=== PATIENT | female | born 1965 | race Caucasian/White ===

== ENCOUNTER 2021-09-03 14:10 | Inpatient (IN) | payer OTHER, SELFPAY ==
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
--- NOTE | 2021-09-03 18:43 | PC.NURSE ---
Pt admitted to floor via stretcher from [facility] inpatient ([facility]). The pt has a flat affect, slow to answer questions. The pt is independent with ADLs. The pt signed all paperwork and cooperated with initial assessment, with exception of vital signs.
[2021-09-03 21:19] LABS: Glucose, Whole Blood 130 mg/dL (60-115)
[2021-09-03] MEDS: Divalproex Sodium ER 500 MG TAB.ER.24H PO (21:19)
[2021-09-03] MEDS: Amoxicillin/Potassium Clav 875 MG TABLET PO (21:20)
[2021-09-03] MEDS: carvediloL 6.25 MG TABLET PO (21:20)
[2021-09-03] MEDS: Benztropine Mesylate 0.5 MG TABLET PO (21:20)
[2021-09-03] MEDS: Torsemide 20 MG TABLET PO (21:20)
[2021-09-03] MEDS: LORazepam 1 MG TABLET PO (21:30)
[2021-09-03] MEDS: Acetaminophen 325 MG TABLET 650 MG PO (21:30)
[2021-09-03 21:45] VITALS: BP 183/117; PULSE 80; RESP 20; TEMP 36.7; O2SAT 92
[2021-09-03 22:29] VITALS: BP 175/87
[2021-09-04] MEDS: Omeprazole 20 MG CAPSULE.DR PO (05:58)
[2021-09-04] MEDS: Acetaminophen 325 MG TABLET 650 MG PO ×2 (06:51→16:17)
[2021-09-04 08:30] VITALS: BP 151/69; PULSE 75; RESP 16; TEMP 36.6; O2SAT 88
[2021-09-04] MEDS: Lipase/Prot/Amylase 24/76/120K 1 CAP CAPSULE.DR PO ×3 (08:43→18:04)
[2021-09-04] MEDS: Multivitamin TABLET 1 TAB PO (08:43)
[2021-09-04] MEDS: carvediloL 6.25 MG TABLET PO ×2 (08:44→22:02)
[2021-09-04] MEDS: Amoxicillin/Potassium Clav 875 MG TABLET PO (08:44)
[2021-09-04] MEDS: Torsemide 20 MG TABLET PO ×2 (08:44→22:03)
[2021-09-04] MEDS: Divalproex Sodium ER 250 MG TAB.ER.24H PO (08:44)
[2021-09-04] MEDS: Benztropine Mesylate 0.5 MG TABLET PO ×2 (08:45→22:03)
[2021-09-04] MEDS: Magnesium Oxide 400 MG TABLET PO ×2 (08:45→18:04)
[2021-09-04] MEDS: Folic Acid 1 MG TABLET PO (08:45)
[2021-09-04] MEDS: ARIPiprazole 15 MG TABLET PO (08:45)
[2021-09-04] MEDS: Loratadine 10 MG TABLET PO (08:47)
[2021-09-04 09:12] LABS: Glucose, Whole Blood 131 mg/dL (60-115)
--- NOTE | 2021-09-04 10:14 | P.CONHOSP_ITS ---
History of Present Illness Data of Consult Service Date: 09/04/21 Primary Care Provider: Unknown Physician HPI Reason for consult: medical evaluation 55 year old female with schizoaffective desorder Bipolar type, HTN, congestive heart failure, DM, pancreatic insuficiency recent treatment at [facility] for pneumonia and is admitted for decompensated Schizophrenia. Present voiced no acute medial illness, Heart failure seems compensated, has no sob , no chest pain, mild leg edama. I reviewed an admission from [facility] from june and updated her past medical history Review of Systems Review of Systems: Gen: no fever Resp: no sob, no cough CV: no chest, no NELSON,+ leg edema GI: No n/v, no abd pain Neuro: No confusion Yes all other systems are reviewed and are negative [facility] Medical History (Updated 09/04/21 @ 10:38 by Edvin Thrasher MD) Anemia Asthma Biventricular heart failure Chronic low back pain Chronic pancreatitis Cirrhosis of liver CKD (chronic kidney disease) Class 2 obesity Diabetes Dyshidrotic eczema HTN (hypertension) Pulmonary arterial hypertension Steatohepatitis Surgical History History of splenectomy Hx of cholecystectomy Social History Household Members: None Housing: Homeless Do you presently have visiting nurse or other home services: Yes Patient Tobacco Use Status: Current everyday Tobacco user Tobacco use type: Cigarette Cigarettes Per Day: 1 Smoked in Last 30 Days: Yes e-Cigarette/Vaping Use: Never Used Patient Interested in Nicotine Replacement: No Patient Given Instructions on How to Stop Smoking: Yes Date Education Initiated: 09/03/21 Second Hand Smoke Exposure: No Use of substances other than those prescribed or required for medical reasons: No Currently Displaying Signs/Symptoms of Drug Intoxication Withdrawal: No Any prior treatment program specific to substance use: No Have you been hit, kicked, punched, or otherwise hurt by someone within the past year? If so, by whom?: No Do you feel safe in your current relationship?: No Current Relationship Is there a partner from a previous relationship who is making you feel unsafe now?: No Are you made to feel afraid or neglected: No Advance Directives: No Advance Directives Information Provided: No Do you have thoughts of harming others: None Do you have a plan to hurt others: No Plan Recently lost weight without trying: No Nutrition Risks: No Nutritional Risk Patient : No : No Poor oral hygiene: No Meds Allergies Allergy/AdvReac Type Severity Reaction Status Date / Time olanzapine [From Zyprexa] Allergy Unknown Verified 09/03/21 14:49 prednisone Allergy Unknown Verified 09/03/21 14:49 NSAIDS (Non-Steroidal AdvReac Mild Abdominal Verified 09/03/21 14:49 Anti-Inflamma Pain egg AdvReac Abdominal Verified 09/03/21 14:49 Pain Active Medications: Current Medications Acetaminophen (Acetaminophen 325 Mg Tablet) 650 mg PO Q6H PRN PRN Reason: Headache/Pain Mild Scale (1-3) Last Admin: 09/04/21 06:51 Dose: 650 mg Al Hydroxide/Mg Hydroxide (Magnesium Hydrox/Alum Hydrox 30 Ml Oral.Susp) 30 ml PO Q6H PRN PRN Reason: Heartburn/Nausea Amoxicillin/Clavulanate Potassium (Amoxicillin/Potassium Clav 875 Mg Tablet) 875 mg PO Q12H ON LICENSE OF [facility] Stop: 09/08/21 23:59 Last Admin: 09/04/21 08:44 Dose: 875 mg Lipase/Protease/Amylase (Lipase/Prot/Amylase 24/76/120k 1 Cap Capsule.Dr) 1 cap PO TIDWM ON LICENSE OF [facility] Last Admin: 09/04/21 08:43 Dose: 1 cap Aripiprazole (Aripiprazole 15 Mg Tablet) 15 mg PO DAILY ON LICENSE OF [facility] Last Admin: 09/04/21 08:45 Dose: 15 mg Benztropine Mesylate (Benztropine Mesylate 0.5 Mg Tablet) 0.5 mg PO BID ON LICENSE OF [facility] Last Admin: 09/04/21 08:45 Dose: 0.5 mg Carvedilol (Carvedilol 6.25 Mg Tablet) 6.25 mg PO BID ON LICENSE OF [facility]; Protocol Last Admin: 09/04/21 08:44 Dose: 6.25 mg Divalproex Sodium (Divalproex Sodium Er 250 Mg Tab.Er.24h) 250 mg PO DAILY ON LICENSE OF [facility] Last Admin: 09/04/21 08:44 Dose: 250 mg Divalproex Sodium (Divalproex Sodium Er 500 Mg Tab.Er.24h) 500 mg PO BEDTIME ON [facility] OF [facility] Last Admin: 09/03/21 21:19 Dose: 500 mg Folic Acid (Folic Acid 1 Mg Tablet) 1 mg PO DAILY ON LICENSE OF [facility] Last Admin: 09/04/21 08:45 Dose: 1 mg Gabapentin (Gabapentin 100 Mg Capsule) 100 mg PO DAILY PRN PRN Reason: anxiety Hydroxyzine HCl (Hydroxyzine Hcl 25 Mg Tablet) 25 mg PO BEDTIME PRN PRN Reason: Anxiety Insulin Human Lispro (Insulin Lispro 100 Unit/Ml 3 Ml Vial) 0 unit SUBCUT QIDACHS ON LICENSE OF [facility]; Protocol Last Admin: 09/04/21 08:45 Dose: Not Given Lactulose (Lactulose 20 Gm/30 Ml Solution) 20 gm PO BID ON LICENSE OF [facility] Last Admin: 09/04/21 08:47 Dose: Not Given Loratadine (Loratadine 10 Mg Tablet) 10 mg PO DAILY ON [facility] Last Admin: 09/04/21 08:47 Dose: 10 mg Lorazepam (Lorazepam 1 Mg Tablet) 1 mg PO TID PRN PRN Reason: agitation, anxiety Last Admin: 09/03/21 21:30 Dose: 1 mg Magnesium Hydroxide (Milk Of Magnesia 30 Ml Oral.Susp) 30 ml PO DAILY PRN PRN Reason: Constipation Magnesium Oxide (Magnesium Oxide 400 Mg Tablet) [facility] Last Admin: 09/04/21 08:45 Dose: 400 mg Melatonin (Melatonin 3 Mg Tablet) 3 mg PO BEDTIME PRN PRN Reason: sleep Multivitamins/Vitamin C (Multivitamin Tablet) 1 tab PO DAILY ON LICENSE OF [facility] Last Admin: 09/04/21 08:43 Dose: 1 tab Omeprazole (Omeprazole 20 Mg Capsule.Dr) 20 mg PO DAILY@0630 ON LICENSE OF [facility] Last Admin: 09/04/21 05:58 Dose: 20 mg Torsemide (Torsemide 20 Mg Tablet) 20 mg PO BID ON LICENSE OF [facility]; Protocol Last Admin: 09/04/21 08:44 Dose: 20 mg Trazodone HCl (Trazodone Hcl 50 Mg Tablet) 50 mg PO BEDTIME PRN PRN Reason: Insomnia Physical Exam Vital Signs and Narrative: Vital Signs: Last Vital Signs Temp 98.1 F 09/03/21 21:45 Pulse 80 09/03/21 21:45 Resp 20 09/03/21 21:45 BP 175/87 H 09/03/21 22:29 Pulse Ox 92 09/03/21 21:45 O2 Del Method 09/03/21 21:45 Const: Other: Constitutional: Alert, in no distress, overweight. Mental Status: Oriented to person, place and time. Eyes: Pupils are equal, round and reactive to light. Ear, Nose and Throat: Oropharynx clear, mucous membranes moist. Respiratory: Clear to auscultation. No wheezing, rales or rhonchi. Cardiovascular: S1 S2 regular. No murmurs, rubs or gallops. Trace leg edema Gastrointestinal: Abdomen soft, non-tender, non-distended. Normal bowel sounds.? Neurologic: Cranial nerves II-XII grossly intact. No focal neurological deficits. Moves all extremities spontaneously.? Skin: No rashes or lesions.? Musculoskeletal: No cyanosis or clubbing. Psychiatric: Normal mood and affect? Results Labs Labs: Laboratory Results - last 24 hr 09/03/21 09/04/21 21:15 08:41 POC Glucose 130 H 131 H Assessment and Plan (1) Diabetes: Status: Acute Plan 55/F with DM, HTN, CHF Schozoaffective desorder here with decompensation. No acute medical issues #HTN--continue Coreg #Diabetes--continue insulin #CHF--compensated, continue Torsemide, Coreg, should probably on AMINAH #Pancreatic insuficiency--Creon #Schizophrenia--Managemebt by Psych Staff should obtained most recent home meds for Pharmacy to reconcile.
--- NOTE | 2021-09-04 12:38 | MHC.CLN ---
NUTRITION VISITED WITH PATIENT IN HER ROOM. REVIEWED DISCHARGE INFORMATION FROM [facility] SHOWING SODIUM LABS WNL ON 08/26=142 AND 09/0212=398. PATIENT WITH MILD LOWER EXTREMITY EDEMA. PATIENT STATED THAT SHE IS ON A 1500 ML FLUID RESTRICTION. NO EVIDENCE OF PRIOR FLUID RESTRICTION FROM CHART REVIEW. DIET CHANGED TO DIABETIC 1800 KCAL, 2 GRAM SODIUM DUE TO MEDICAL DX. EGG ALLERGY IN CHART. PATIENT STATED THAT SHE EATS EGGS WITHOUT A PROBLEM; NURSE AWARE OF FINDING.
[2021-09-04 12:51] LABS: Glucose, Whole Blood 138 mg/dL (60-115)
--- NOTE | 2021-09-04 14:49 | HO.PSYCHPN ---
Subjective Subjective Date of Service: 09/04/21 Reason For Visit: unspecified schizophrenia Interim History: pt amenable to interview. calm, cooperative, pleasant. states she is stable on her medications now - meds reviewed. she denies SI/SIBI/HI/AVH and describes her mood as good. she states she can be helped in the hospital by going to some groups and help getting an apartment. she was encouraged to work with SW in that regard. Mental Status Exam Mental Status Exam Narrative: appropriately dressed and adequately groomed. cooperative. no PMA/PMR. speech nml in rate, amount, loudness, tone, latency. thoughts linear and logical. affect full range, normo-intense, non-labile. mood good. denies SI/HI/AVH. Diagnostics Vital Signs (24Hr): Vital Signs - 24 hr 09/03/21 21:45 09/03/21 22:29 09/04/21 08:30 Temperature 98.1 F 98 F Pulse Rate 80 75 Respiratory Rate 20 16 Blood Pressure 183/117 H 175/87 H 151/69 H Pulse Oximetry 92 88 L Oxygen Delivery Method Room Air Room Air Labs Labs: Laboratory Results - last 48 hr 09/03/21 09/04/21 09/04/21 21:15 08:41 12:46 POC Glucose 130 H 131 H 138 H Medications Medications Current Medications Acetaminophen (Acetaminophen 325 Mg Tablet) 650 mg PO Q6H PRN PRN Reason: Headache/Pain Mild Scale (1-3) Last Admin: 09/04/21 06:51 Dose: 650 mg Al Hydroxide/Mg Hydroxide (Magnesium Hydrox/Alum Hydrox 30 Ml Oral.Susp) 30 ml PO Q6H PRN PRN Reason: Heartburn/Nausea Amoxicillin/Clavulanate Potassium (Amoxicillin/Potassium Clav 875 Mg Tablet) 875 mg PO Q12H [facility] Stop: 09/08/21 23:59 Last Admin: 09/04/21 08:44 Dose: 875 mg Lipase/Protease/Amylase (Lipase/Prot/Amylase 24/76/120k 1 Cap Capsule.) 1 cap PO TIDWM [facility] Last Admin: 09/04/21 12:53 Dose: 1 cap Aripiprazole (Aripiprazole 15 Mg Tablet) 15 mg PO DAILY [facility] Last Admin: 09/04/21 08:45 Dose: 15 mg Benztropine Mesylate (Benztropine Mesylate 0.5 Mg Tablet) 0.5 mg PO BID [facility] Last Admin: 09/04/21 08:45 Dose: 0.5 mg Carvedilol (Carvedilol 6.25 Mg Tablet) 6.25 mg PO BID [facility]; Protocol Last Admin: 09/04/21 08:44 Dose: 6.25 mg Divalproex Sodium (Divalproex Sodium Er 250 Mg Tab.Er.24h) 250 mg PO DAILY [facility] Last Admin: 09/04/21 08:44 Dose: 250 mg Divalproex Sodium (Divalproex Sodium Er 500 Mg Tab.Er.24h) 500 mg PO BEDTIME [facility] Last Admin: 09/03/21 21:19 Dose: 500 mg Folic Acid (Folic Acid 1 Mg Tablet) 1 mg PO DAILY [facility] Last Admin: 09/04/21 08:45 Dose: 1 mg Gabapentin (Gabapentin 100 Mg Capsule) 100 mg PO DAILY PRN PRN Reason: anxiety Hydroxyzine HCl (Hydroxyzine Hcl 25 Mg Tablet) 25 mg PO BEDTIME PRN PRN Reason: Anxiety Insulin Human Lispro (Insulin Lispro 100 Unit/Ml 3 Ml Vial) 0 unit SUBCUT QIDACHS [facility]; Protocol Last Admin: 09/04/21 12:50 Dose: Not Given Lactulose (Lactulose 20 Gm/30 Ml Solution) 20 gm PO BID [facility] Last Admin: 09/04/21 08:47 Dose: Not Given Loratadine (Loratadine 10 Mg Tablet) 10 mg PO DAILY [facility] Last Admin: 09/04/21 08:47 Dose: 10 mg Lorazepam (Lorazepam 1 Mg Tablet) 1 mg PO TID PRN PRN Reason: agitation, anxiety Last Admin: 09/03/21 21:30 Dose: 1 mg Magnesium Hydroxide (Milk Of Magnesia 30 Ml Oral.Susp) 30 ml PO DAILY PRN PRN Reason: Constipation Magnesium Oxide (Magnesium Oxide 400 Mg Tablet) [facility] Last Admin: 09/04/21 08:45 Dose: 400 mg Melatonin (Melatonin 3 Mg Tablet) 3 mg PO BEDTIME PRN PRN Reason: sleep Multivitamins/Vitamin C (Multivitamin Tablet) 1 tab PO DAILY [facility] Last Admin: 09/04/21 08:43 Dose: 1 tab Omeprazole (Omeprazole 20 Mg Capsule.Dr) 20 mg PO DAILY@0630 [facility] Last Admin: 09/04/21 05:58 Dose: 20 mg Torsemide (Torsemide 20 Mg Tablet) 20 mg PO BID [facility]; Protocol Last Admin: 09/04/21 08:44 Dose: 20 mg Trazodone HCl (Trazodone Hcl 50 Mg Tablet) 50 mg PO BEDTIME PRN PRN Reason: Insomnia Allergies Allergies Allergy/AdvReac Type Severity Reaction Status Date / Time olanzapine [From Zyprexa] Allergy Unknown Verified 09/03/21 14:49 prednisone Allergy Unknown Verified 09/03/21 14:49 NSAIDS (Non-Steroidal AdvReac Mild Abdominal Verified 09/03/21 14:49 Anti-Inflamma Pain egg AdvReac Abdominal Verified 09/03/21 14:49 Pain Assessment & Plan Assessment & Plan (1) Diabetes: Status: Acute Code(s): E11.9 - Type 2 diabetes mellitus without complications Assessment and Plan: 55/F with DM, HTN, CHF Schozoaffective desorder here with decompensation. No acute medical issues #HTN--continue Coreg #Diabetes--continue insulin #CHF--compensated, continue Torsemide, Coreg, should probably on AMINAH #Pancreatic insuficiency--Creon #Schizophrenia--Management by Psych Staff should obtained most recent home meds for Pharmacy to reconcile. (2) Schizophrenia, paranoid type: Status: Acute Code(s): F20.0 - Paranoid schizophrenia Assessment and Plan: continue transfer medications I spent __25____ minutes with the patient and/or on the patient floor today, greater than?50% of which was spent counseling/coordinating care. Reason for contiued inpatient stay Substantial Risk for: rapid decompensation
--- NOTE | 2021-09-04 17:26 | P.PNPSI_ITS ---
Subjective Subjective Reason For Visit: unspecified schizophrenia Diagnostics Vital Signs (24Hr): Vital Signs - 24 hr 09/03/21 21:45 09/03/21 22:29 09/04/21 08:30 Temperature 98.1 F 98 F Pulse Rate 80 75 Respiratory Rate 20 16 Blood Pressure 183/117 H 175/87 H 151/69 H Pulse Oximetry 92 88 L Oxygen Delivery Method Room Air Room Air Labs Labs: Laboratory Results - last 48 hr 09/03/21 09/04/21 09/04/21 21:15 08:41 12:46 POC Glucose 130 H 131 H 138 H Medications Medications Current Medications Acetaminophen (Acetaminophen 325 Mg Tablet) 650 mg PO Q6H PRN PRN Reason: Headache/Pain Mild Scale (1-3) Last Admin: 09/04/21 16:17 Dose: 650 mg Al Hydroxide/Mg Hydroxide (Magnesium Hydrox/Alum Hydrox 30 Ml Oral.Susp) 30 ml PO Q6H PRN PRN Reason: Heartburn/Nausea Amoxicillin/Clavulanate Potassium (Amoxicillin/Potassium Clav 875 Mg Tablet) 875 mg PO Q12H [facility] Stop: 09/08/21 23:59 Last Admin: 09/04/21 08:44 Dose: 875 mg Lipase/Protease/Amylase (Lipase/Prot/Amylase 24/76/120k 1 Cap Capsule.Dr) 1 cap PO TIDWM [facility] Last Admin: 09/04/21 12:53 Dose: 1 cap Aripiprazole (Aripiprazole 15 Mg Tablet) 15 mg PO DAILY [facility] Last Admin: 09/04/21 08:45 Dose: 15 mg Benztropine Mesylate (Benztropine Mesylate 0.5 Mg Tablet) 0.5 mg PO BID [facility] Last Admin: 09/04/21 08:45 Dose: 0.5 mg Carvedilol (Carvedilol 6.25 Mg Tablet) 6.25 mg PO BID [facility]; Protocol Last Admin: 09/04/21 08:44 Dose: 6.25 mg Divalproex Sodium (Divalproex Sodium Er 250 Mg Tab.Er.24h) 250 mg PO DAILY [facility] Last Admin: 09/04/21 08:44 Dose: 250 mg Divalproex Sodium (Divalproex Sodium Er 500 Mg Tab.Er.24h) 500 mg PO BEDTIME [facility] Last Admin: 09/03/21 21:19 Dose: 500 mg Folic Acid (Folic Acid 1 Mg Tablet) 1 mg PO DAILY [facility] Last Admin: 09/04/21 08:45 Dose: 1 mg Gabapentin (Gabapentin 100 Mg Capsule) 100 mg PO DAILY PRN PRN Reason: anxiety Hydroxyzine HCl (Hydroxyzine Hcl 25 Mg Tablet) 25 mg PO BEDTIME PRN PRN Reason: Anxiety Insulin Human Lispro (Insulin Lispro 100 Unit/Ml 3 Ml Vial) 0 unit SUBCUT QIDACHS [facility]; Protocol Last Admin: 09/04/21 12:50 Dose: Not Given Lactulose (Lactulose 20 Gm/30 Ml Solution) 20 gm PO BID [facility] Last Admin: 09/04/21 08:47 Dose: Not Given Loratadine (Loratadine 10 Mg Tablet) 10 mg PO DAILY [facility] Last Admin: 09/04/21 08:47 Dose: 10 mg Lorazepam (Lorazepam 1 Mg Tablet) 1 mg PO TID PRN PRN Reason: agitation, anxiety Last Admin: 09/03/21 21:30 Dose: 1 mg Magnesium Hydroxide (Milk Of Magnesia 30 Ml Oral.Susp) 30 ml PO DAILY PRN PRN Reason: Constipation Magnesium Oxide ([facility] 400 Mg Tablet) [facility] Last Admin: 09/04/21 08:45 Dose: 400 mg Melatonin (Melatonin 3 Mg Tablet) 3 mg PO BEDTIME PRN PRN Reason: sleep Multivitamins/Vitamin C (Multivitamin Tablet) 1 tab PO DAILY [facility] Last Admin: 09/04/21 08:43 Dose: 1 tab Omeprazole (Omeprazole 20 Mg Capsule.Dr) 20 mg PO DAILY@0630 [facility] Last Admin: 09/04/21 05:58 Dose: 20 mg Torsemide (Torsemide 20 Mg Tablet) 20 mg PO BID [facility]; Protocol Last Admin: 09/04/21 08:44 Dose: 20 mg Trazodone HCl (Trazodone Hcl 50 Mg Tablet) 50 mg PO BEDTIME PRN PRN Reason: Insomnia Allergies Allergies Allergy/AdvReac Type Severity Reaction Status Date / Time olanzapine [From Zyprexa] Allergy Unknown Verified 09/03/21 14:49 prednisone Allergy Unknown Verified 09/03/21 14:49 NSAIDS (Non-Steroidal AdvReac Mild Abdominal Verified 09/03/21 14:49 Anti-Inflamma Pain egg AdvReac Abdominal Verified 09/03/21 14:49 Pain Assessment & Plan Assessment & Plan (1) Diabetes: Status: Acute Code(s): E11.9 - Type 2 diabetes mellitus without complications Assessment and Plan: 55/F with DM, HTN, CHF Schozoaffective desorder here with decompensation. No acute medical issues #HTN--continue Coreg #Diabetes--continue insulin #CHF--compensated, continue Torsemide, Coreg, should probably on AMINAH #Pancreatic insuficiency--Creon #Schizophrenia--Management by Psych Staff should obtained most recent home meds for Pharmacy to reconcile. (2) Schizophrenia, paranoid type: Status: Acute Code(s): F20.0 - Paranoid schizophrenia Assessment and Plan: continue transfer medications I spent minutes with the patient and/or on the patient floor today, greater than?50% of which was spent counseling/coordinating care.
[2021-09-04 18:01] LABS: Glucose, Whole Blood 102 mg/dL (60-115)
[2021-09-04 20:00] VITALS: BP 164/103; PULSE 79; TEMP 36.6; O2SAT 93
[2021-09-04] MEDS: cloNIDine HCL 0.1 MG TABLET PO (20:19)
[2021-09-04 20:35] LABS: Glucose, Whole Blood 126 mg/dL (60-115)
[2021-09-04 21:57] VITALS: BP 174/82; PULSE 72; O2SAT 90
[2021-09-04] MEDS: Divalproex Sodium ER 500 MG TAB.ER.24H PO (22:02)
[2021-09-04] MEDS: risperiDONE 0.5 MG TABLET PO (22:03)
[2021-09-04] MEDS: Lactulose 20 GM/30 ML SOLUTION PO (22:04)
[2021-09-05 06:00] VITALS: BP 160/84; PULSE 72; RESP 18; TEMP 36.2; O2SAT 90
--- NOTE | 2021-09-05 07:54 | PC.NURSE ---
incentive spirometer-did well with education. was only able to reach the 1.500 range and only was able to perform 4 reps. will need staff to monitor exercise.
[2021-09-05 08:20] LABS: Glucose, Whole Blood 109 mg/dL (60-115)
[2021-09-05] MEDS: Folic Acid 1 MG TABLET PO (09:25)
[2021-09-05] MEDS: Omeprazole 20 MG CAPSULE.DR PO (09:25)
[2021-09-05] MEDS: Divalproex Sodium ER 250 MG TAB.ER.24H PO (09:25)
[2021-09-05] MEDS: risperiDONE 0.5 MG TABLET PO ×2 (09:26→21:48)
[2021-09-05] MEDS: Torsemide 20 MG TABLET PO ×2 (09:26→21:48)
[2021-09-05] MEDS: Loratadine 10 MG TABLET PO (09:26)
[2021-09-05] MEDS: Lipase/Prot/Amylase 24/76/120K 1 CAP CAPSULE.DR PO ×2 (09:26→13:53)
[2021-09-05] MEDS: carvediloL 6.25 MG TABLET PO ×2 (09:26→21:48)
[2021-09-05] MEDS: Benztropine Mesylate 0.5 MG TABLET PO ×2 (09:26→21:48)
[2021-09-05] MEDS: ARIPiprazole 15 MG TABLET PO (09:26)
[2021-09-05] MEDS: Lactulose 20 GM/30 ML SOLUTION PO (09:26)
[2021-09-05] MEDS: Magnesium Oxide 400 MG TABLET PO (09:26)
[2021-09-05] MEDS: Multivitamin TABLET 1 TAB PO (10:45)
[2021-09-05 12:41] LABS: Glucose, Whole Blood 174 mg/dL (60-115)
[2021-09-05] MEDS: Insulin Lispro 100 UNIT/ML 3 ML VIAL SUBCUT ×2 (13:51→22:02)
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
[2021-09-05 21:43] VITALS: BP 180/98; PULSE 79; TEMP 36.6; O2SAT 97
[2021-09-05] MEDS: Divalproex Sodium ER 500 MG TAB.ER.24H PO (21:48)
[2021-09-05 21:57] LABS: Glucose, Whole Blood 185 mg/dL (60-115)
[2021-09-06] MEDS: Omeprazole 20 MG CAPSULE.DR PO (08:46)
[2021-09-06 08:49] VITALS: BP 154/96; PULSE 75; RESP 18; TEMP 36.3; O2SAT 94
[2021-09-06] MEDS: carvediloL 6.25 MG TABLET PO ×2 (08:49→21:26)
[2021-09-06 09:14] LABS: Glucose, Whole Blood 119 mg/dL (60-115)
[2021-09-06] MEDS: Benztropine Mesylate 0.5 MG TABLET PO ×2 (10:06→21:26)
[2021-09-06] MEDS: Torsemide 20 MG TABLET PO ×2 (10:06→21:26)
[2021-09-06] MEDS: Folic Acid 1 MG TABLET PO (10:07)
[2021-09-06] MEDS: Multivitamin TABLET 1 TAB PO (10:07)
[2021-09-06] MEDS: Divalproex Sodium ER 250 MG TAB.ER.24H PO (10:07)
[2021-09-06] MEDS: Lipase/Prot/Amylase 24/76/120K 1 CAP CAPSULE.DR PO ×3 (10:07→18:35)
[2021-09-06] MEDS: ARIPiprazole 15 MG TABLET PO (10:07)
[2021-09-06] MEDS: risperiDONE 0.5 MG TABLET PO ×2 (10:07→21:26)
[2021-09-06] MEDS: Loratadine 10 MG TABLET PO (10:07)
[2021-09-06] MEDS: Lactulose 20 GM/30 ML SOLUTION PO (10:08)
[2021-09-06] MEDS: Magnesium Oxide 400 MG TABLET PO ×2 (10:20→18:35)
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
[2021-09-06] MEDS: Acetaminophen 325 MG TABLET 650 MG PO (11:41)
[2021-09-06 12:42] LABS: Glucose, Whole Blood 166 mg/dL (60-115)
[2021-09-06] MEDS: Insulin Lispro 100 UNIT/ML 3 ML VIAL SUBCUT ×2 (13:06→21:26)
[2021-09-06] MEDS: Nicotine Polacrilex 2 MG GUM BUCCAL (15:55)
[2021-09-06] MEDS: Loperamide HCl 2 MG CAPSULE 4 MG PO (16:06)
[2021-09-06 20:03] LABS: Glucose, Whole Blood 122 mg/dL (60-115)
[2021-09-06 20:54] LABS: Glucose, Whole Blood 184 mg/dL (60-115)
[2021-09-06] MEDS: Divalproex Sodium ER 500 MG TAB.ER.24H PO (21:26)
[2021-09-06 21:45] VITALS: BP 172/101; PULSE 75; RESP 18; TEMP 36.6; O2SAT 95
[2021-09-07 08:41] LABS: Glucose, Whole Blood 110 mg/dL (60-115)
[2021-09-07 08:45] VITALS: BP 143/72; PULSE 82; RESP 18; TEMP 36.6; O2SAT 92
[2021-09-07] MEDS: Lipase/Prot/Amylase 24/76/120K 1 CAP CAPSULE.DR PO ×3 (09:25→18:02)
[2021-09-07] MEDS: ARIPiprazole 15 MG TABLET PO (09:25)
[2021-09-07] MEDS: Torsemide 20 MG TABLET PO ×2 (09:25→22:22)
[2021-09-07] MEDS: Loratadine 10 MG TABLET PO (09:26)
[2021-09-07] MEDS: Divalproex Sodium ER 250 MG TAB.ER.24H PO (09:27)
[2021-09-07] MEDS: Omeprazole 20 MG CAPSULE.DR PO (09:27)
[2021-09-07] MEDS: Benztropine Mesylate 0.5 MG TABLET PO ×2 (09:27→22:24)
[2021-09-07] MEDS: Multivitamin TABLET 1 TAB PO (09:27)
[2021-09-07] MEDS: Folic Acid 1 MG TABLET PO (09:27)
[2021-09-07] MEDS: carvediloL 6.25 MG TABLET PO ×2 (09:27→22:23)
[2021-09-07] MEDS: risperiDONE 0.5 MG TABLET PO (09:27)
[2021-09-07] MEDS: Magnesium Oxide 400 MG TABLET PO ×2 (09:27→18:02)
[2021-09-07 12:15] LABS: Glucose, Whole Blood 187 mg/dL (60-115)
[2021-09-07] MEDS: Insulin Lispro 100 UNIT/ML 3 ML VIAL SUBCUT (13:36)
--- NOTE | 2021-09-07 15:06 | PC.NURSE ---
Patient alert, pleasant, anxious about diet, requesting not to be on diabetic diet, declined lactulose secondary to diarrhea- provider notified.
[2021-09-07 17:31] LABS: Glucose, Whole Blood 147 mg/dL (60-115)
--- NOTE | 2021-09-07 17:35 | P.PNPSI_ITS ---
Subjective Subjective Date of Service: 09/07/21 Reason For Visit: unspecified schizophrenia Interim History: Patient seen and discussed with team. Patient evaluated today and upon interview pt reports Im going home. She now says she can return to her apartment, as she says her family talked to the landlord and he is going to try to move me. Sleep is good. Continues to complain of diarrhea. Put in her three day notice. Pt continues to present with paranoia, i.e. thought I was grants specialist and asked me this a couple times. Says she wants a new VNA. Also reports interest in re-starting risperdal consta, likes ARIAS, I like that instead of pills. Had been stable on risperdal consta and depakote for years but stopped ARIAS due to adherence issues with her psych provider appointments during the pandemic as she said she had difficulty managing zoom/ phone calls. In the milieu, patient is safe but isolative in behavior. Denies SI/SIB/HI upon inquiry. Denies irritability or assaultive ideation. Says she feels safe. Medication Compliance: Yes Side effects from medications: No Attending Groups: No Review of Systems Acute medical concerns: No Medical Review of Systems: unchanged Mental Status Exam Mental Status Exam Narrative: A but not oriented to situation. In hospital attire, hair short, unkempt. Good eye contact, inattentive. No Tics or Tremors. No abnormal involuntary movements. Calm, less rocking, cooperative, engaged. Non-pressured speech, spontaneous with regular rate and rhythm, normal volume and prosody. No prolonged speech latency or dysarthria. Mood is ?better,? affect is appropriate. Denies SI/SIB/HI upon inquiry. Responding to internal stimuli, paranoid delusional thought content but somewhat clearer and less internally preoccupied. No known cognitive or memory impairment. Insight/ Judgment limited but adequate. Diagnostics Vital Signs (24Hr): Vital Signs - 24 hr 09/06/21 21:45 09/07/21 08:45 Temperature 97.9 F 97.9 F Pulse Rate 75 82 Respiratory Rate 18 18 Blood Pressure 172/101 H 143/72 H Pulse Oximetry 95 92 Oxygen Delivery Method Room Air Room Air Labs Labs: Laboratory Results - last 48 hr 09/05/21 09/06/21 09/06/21 21:47 09:09 12:38 POC Glucose 185 H 119 H 166 H 09/06/21 09/06/21 09/07/21 17:49 20:49 08:36 POC Glucose 122 H 184 H 110 09/07/21 09/07/21 12:10 17:26 POC Glucose 187 H 147 H Medications Medications Current Medications Acetaminophen (Acetaminophen 325 Mg Tablet) 650 mg PO Q6H PRN PRN Reason: Headache/Pain Mild Scale (1-3) Last Admin: 09/06/21 11:41 Dose: 650 mg Al Hydroxide/Mg Hydroxide (Magnesium Hydrox/Alum Hydrox 30 Ml Oral.Susp) 30 ml PO Q6H PRN PRN Reason: Heartburn/Nausea Lipase/Protease/Amylase (Lipase/Prot/Amylase 24/76/120k 1 Cap Capsule.Dr) 1 cap PO TIDWM [facility] Last Admin: 09/07/21 13:35 Dose: 1 cap Aripiprazole (Aripiprazole 15 Mg Tablet) 15 mg PO DAILY [facility] Last Admin: 09/07/21 09:25 Dose: 15 mg Benztropine Mesylate (Benztropine Mesylate 0.5 Mg Tablet) 0.5 mg PO BID [facility] Last Admin: 09/07/21 09:27 Dose: 0.5 mg Carvedilol (Carvedilol 6.25 Mg Tablet) 6.25 mg PO BID [facility]; Protocol Last Admin: 09/07/21 09:27 Dose: 6.25 mg Clonidine HCl (Clonidine Hcl 0.1 Mg Tablet) 0.1 mg PO BID PRN; Protocol PRN Reason: anxiety, hyperarousal Last Admin: 09/04/21 20:19 Dose: 0.1 mg Divalproex Sodium (Divalproex Sodium Er 250 Mg Tab.Er.24h) 250 mg PO DAILY [facility] Last Admin: 09/07/21 09:27 Dose: 250 mg Divalproex Sodium (Divalproex Sodium Er 500 Mg Tab.Er.24h) 500 mg PO BEDTIME [facility] Last Admin: 09/06/21 21:26 Dose: 500 mg Folic Acid (Folic Acid 1 Mg Tablet) 1 mg PO DAILY [facility] Last Admin: 09/07/21 09:27 Dose: 1 mg Gabapentin (Gabapentin 100 Mg Capsule) 100 mg PO DAILY PRN PRN Reason: anxiety Hydroxyzine HCl (Hydroxyzine Hcl 25 Mg Tablet) 25 mg PO BEDTIME PRN PRN Reason: Anxiety Insulin Human Lispro (Insulin Lispro 100 Unit/Ml 3 Ml Vial) 0 unit SUBCUT QIDACHS [facility]; Protocol Last Admin: 09/07/21 13:36 Dose: 2 unit Lactulose (Lactulose 20 Gm/30 Ml Solution) 20 gm PO BID [facility] Last Admin: 09/07/21 09:31 Dose: Not Given Loperamide HCl (Loperamide Hcl 2 Mg Capsule) 2 mg PO Q6H PRN PRN Reason: loose stool Loratadine (Loratadine 10 Mg Tablet) 10 mg PO DAILY [facility] Last Admin: 09/07/21 09:26 Dose: 10 mg Lorazepam (Lorazepam 1 Mg Tablet) 1 mg PO TID PRN PRN Reason: agitation, anxiety Last Admin: 09/03/21 21:30 Dose: 1 mg Magnesium Hydroxide (Milk Of Magnesia 30 Ml Oral.Susp) 30 ml PO DAILY PRN PRN Reason: Constipation [facility] ([facility]) [facility] Last Admin: 09/07/21 09:27 Dose: 400 mg Melatonin (Melatonin 3 Mg Tablet) 3 mg PO BEDTIME PRN PRN Reason: sleep Multivitamins/Vitamin C (Multivitamin Tablet) 1 tab PO DAILY [facility] Last Admin: 09/07/21 09:27 Dose: 1 tab Nicotine Polacrilex (Nicotine Polacrilex 2 Mg Gum) 2 mg BUCCAL Q2H PRN PRN Reason: nicotine withdrawal Last Admin: 09/06/21 15:55 Dose: 2 mg Omeprazole (Omeprazole 20 Mg Capsule.Dr) 20 mg PO DAILY@0630 [facility] Last Admin: 09/07/21 09:27 Dose: 20 mg Risperidone (Risperidone 0.5 Mg Tablet) 0.5 mg PO BID [facility] Last Admin: 09/07/21 09:27 Dose: 0.5 mg Torsemide (Torsemide 20 Mg Tablet) 20 mg PO BID [facility]; Protocol Last Admin: 09/07/21 09:25 Dose: 20 mg Trazodone HCl (Trazodone Hcl 50 Mg Tablet) 50 mg PO BEDTIME PRN PRN Reason: Insomnia Allergies Allergies Allergy/AdvReac Type Severity Reaction Status Date / Time olanzapine [From Zyprexa] Allergy Unknown Verified 09/03/21 14:49 prednisone Allergy Unknown Verified 09/03/21 14:49 NSAIDS (Non-Steroidal AdvReac Mild Abdominal Verified 09/03/21 14:49 Anti-Inflamma Pain Assessment & Plan Assessment & Plan (1) Schizophrenia, chronic condition: Status: Acute Code(s): F20.9 - Schizophrenia, unspecified Assessment and Plan: 09/05/2021: No changes to primary team treatment plan. They are utilizing Abilify and monitoring for benefit. 09/06/2021: No changes to medication, continue abilify and risperdal low dose 09/07/2021: Decrease abilify to 10 mg and increase risperdal to 1 mg BID, may consider switching to ARIAS and continue to titrate abilify down to target paranoid thought content and promote med adherence. I spent minutes with the patient and/or on the patient floor today, greater than?50% of which was spent counseling/coordinating care. Patient educated on: medication risk/benefits Reason for contiued inpatient stay Substantial Risk for: inability to function, rapid decompensation and med/psych decompensation
[2021-09-07] MEDS: LORazepam 1 MG TABLET PO (18:06)
[2021-09-07 21:11] LABS: Glucose, Whole Blood 146 mg/dL (60-115)
[2021-09-07 22:16] VITALS: BP 172/103; PULSE 86; RESP 18; TEMP 36.1; O2SAT 93
[2021-09-07] MEDS: risperiDONE 1 MG TABLET PO (22:22)
[2021-09-07] MEDS: Divalproex Sodium ER 500 MG TAB.ER.24H PO (22:24)
[2021-09-08 08:16] LABS: Glucose, Whole Blood 127 mg/dL (60-115)
[2021-09-08 08:19] VITALS: BP 133/80; PULSE 88; RESP 18; TEMP 36.7; O2SAT 91
[2021-09-08] MEDS: Omeprazole 20 MG CAPSULE.DR PO (08:25)
[2021-09-08] MEDS: Lipase/Prot/Amylase 24/76/120K 1 CAP CAPSULE.DR PO ×3 (08:25→18:07)
[2021-09-08] MEDS: risperiDONE 1 MG TABLET PO ×2 (08:25→21:23)
[2021-09-08] MEDS: Benztropine Mesylate 0.5 MG TABLET PO ×2 (08:25→21:23)
[2021-09-08] MEDS: Magnesium Oxide 400 MG TABLET PO ×2 (08:26→18:07)
[2021-09-08] MEDS: Folic Acid 1 MG TABLET PO (08:26)
[2021-09-08] MEDS: Divalproex Sodium ER 250 MG TAB.ER.24H PO (08:26)
[2021-09-08] MEDS: Multivitamin TABLET 1 TAB PO (08:26)
[2021-09-08] MEDS: Torsemide 20 MG TABLET PO ×2 (08:27→20:11)
[2021-09-08] MEDS: carvediloL 6.25 MG TABLET PO ×2 (08:27→20:11)
[2021-09-08] MEDS: ARIPiprazole 10 MG TABLET PO (08:27)
[2021-09-08] MEDS: Loratadine 10 MG TABLET PO (08:28)
[2021-09-08] MEDS: Lactulose 20 GM/30 ML SOLUTION PO (08:28)
[2021-09-08 12:31] LABS: Glucose, Whole Blood 207 mg/dL (60-115)
[2021-09-08] MEDS: Nicotine Polacrilex 2 MG GUM BUCCAL ×2 (12:32→18:27)
[2021-09-08] MEDS: Insulin Lispro 100 UNIT/ML 3 ML VIAL SUBCUT ×3 (13:23→21:22)
--- NOTE | 2021-09-08 15:16 | HO.PSYCHPN ---
Subjective Subjective Date of Service: 09/08/21 Reason For Visit: unspecified schizophrenia Interim History: pt proudly reports she has been making her own bed and doing laundry every other day. bright, cheerful. reports SW discussed discharge with her today and that is scheduled for 2 days from now. supported plan. per staff, 3-day up 09/10. anx/dep better. pleasant, good sleep, good appetite. FSBS 110, 187, 147, 146. brighter during art group. dep 05/28. no anxiety. Mental Status Exam Mental Status Exam Narrative: In hospital attire, hair short, unkempt. Good eye contact, attentive. No Tics or Tremors. No abnormal involuntary movements. Calm, cooperative, engaged. Non-pressured speech, spontaneous with regular rate and rhythm, normal volume and prosody. No prolonged speech latency or dysarthria. Mood is euthymic, affect is appropriate. no SI/SIB/HI/AVH expressed. thoughts are tangential. No known cognitive or memory impairment. Insight/ Judgment limited but adequate. Diagnostics Vital Signs (24Hr): Vital Signs - 24 hr 09/07/21 22:16 09/08/21 08:19 Temperature 97.0 F 98.0 F Pulse Rate 86 88 Respiratory Rate 18 18 Blood Pressure 172/103 H 133/80 Pulse Oximetry 93 91 L Oxygen Delivery Method Room Air Room Air Labs Labs: Laboratory Results - last 48 hr 09/06/21 09/06/21 09/07/21 17:49 20:49 08:36 POC Glucose 122 H 184 H 110 09/07/21 09/07/21 09/07/21 12:10 17:26 21:07 POC Glucose 187 H 147 H 146 H 09/08/21 09/08/21 08:12 12:27 POC Glucose 127 H 207 H Medications Medications Current Medications Acetaminophen (Acetaminophen 325 Mg Tablet) 650 mg PO Q6H PRN PRN Reason: Headache/Pain Mild Scale (1-3) Last Admin: 09/06/21 11:41 Dose: 650 mg Al Hydroxide/Mg Hydroxide (Magnesium Hydrox/Alum Hydrox 30 Ml Oral.Susp) 30 ml PO Q6H PRN PRN Reason: Heartburn/Nausea Lipase/Protease/Amylase (Lipase/Prot/Amylase 24/76/120k 1 Cap Capsule.) 1 cap PO TIDWM [facility] Last Admin: 09/08/21 13:22 Dose: 1 cap Aripiprazole (Aripiprazole 10 Mg Tablet) 10 mg PO DAILY [facility] Last Admin: 09/08/21 08:27 Dose: 10 mg Benztropine Mesylate (Benztropine Mesylate 0.5 Mg Tablet) 0.5 mg PO BID [facility] Last Admin: 09/08/21 08:25 Dose: 0.5 mg Carvedilol (Carvedilol 6.25 Mg Tablet) 6.25 mg PO BID [facility]; Protocol Last Admin: 09/08/21 08:27 Dose: 6.25 mg Clonidine HCl (Clonidine Hcl 0.1 Mg Tablet) 0.1 mg PO BID PRN; Protocol PRN Reason: anxiety, hyperarousal Last Admin: 09/04/21 20:19 Dose: 0.1 mg Divalproex Sodium (Divalproex Sodium Er 250 Mg Tab.Er.24h) 250 mg PO DAILY [facility] Last Admin: 09/08/21 08:26 Dose: 250 mg Divalproex Sodium (Divalproex Sodium Er 500 Mg Tab.Er.24h) 500 mg PO BEDTIME [facility] Last Admin: 09/07/21 22:24 Dose: 500 mg Folic Acid (Folic Acid 1 Mg Tablet) 1 mg PO DAILY [facility] Last Admin: 09/08/21 08:26 Dose: 1 mg Gabapentin (Gabapentin 100 Mg Capsule) 100 mg PO DAILY PRN PRN Reason: anxiety Hydroxyzine HCl (Hydroxyzine Hcl 25 Mg Tablet) 25 mg PO BEDTIME PRN PRN Reason: Anxiety Insulin Human Lispro (Insulin Lispro 100 Unit/Ml 3 Ml Vial) 0 unit SUBCUT QIDACHS [facility]; Protocol Last Admin: 09/08/21 13:23 Dose: 4 unit Lactulose (Lactulose 20 Gm/30 Ml Solution) 20 gm PO BID [facility] Last Admin: 09/08/21 08:28 Dose: 20 gm Loperamide HCl (Loperamide Hcl 2 Mg Capsule) 2 mg PO Q6H PRN PRN Reason: loose stool Loratadine (Loratadine 10 Mg Tablet) 10 mg PO DAILY [facility] Last Admin: 09/08/21 08:28 Dose: 10 mg Lorazepam (Lorazepam 1 Mg Tablet) 1 mg PO TID PRN PRN Reason: agitation, anxiety Last Admin: 09/07/21 18:06 Dose: 1 mg Magnesium Hydroxide (Milk Of Magnesia 30 Ml Oral.Susp) 30 ml PO DAILY PRN PRN Reason: Constipation [facility] ([facility]) [facility] Last Admin: 09/08/21 08:26 Dose: 400 mg Melatonin (Melatonin 3 Mg Tablet) 3 mg PO BEDTIME PRN PRN Reason: sleep Multivitamins/Vitamin C (Multivitamin Tablet) 1 tab PO DAILY [facility] Last Admin: 09/08/21 08:26 Dose: 1 tab Nicotine Polacrilex (Nicotine Polacrilex 2 Mg Gum) 2 mg BUCCAL Q2H PRN PRN Reason: nicotine withdrawal Last Admin: 09/08/21 12:32 Dose: 2 mg Omeprazole (Omeprazole 20 Mg Capsule.Dr) 20 mg PO DAILY@0630 [facility] Last Admin: 09/08/21 08:25 Dose: 20 mg Risperidone (Risperidone 1 Mg Tablet) 1 mg PO BID [facility] Last Admin: 09/08/21 08:25 Dose: 1 mg Torsemide (Torsemide 20 Mg Tablet) 20 mg PO BID [facility]; Protocol Last Admin: 09/08/21 08:27 Dose: 20 mg Trazodone HCl (Trazodone Hcl 50 Mg Tablet) 50 mg PO BEDTIME PRN PRN Reason: Insomnia Allergies Allergies Allergy/AdvReac Type Severity Reaction Status Date / Time olanzapine [From Zyprexa] Allergy Unknown Verified 09/03/21 14:49 prednisone Allergy Unknown Verified 09/03/21 14:49 NSAIDS (Non-Steroidal AdvReac Mild Abdominal Verified 09/03/21 14:49 Anti-Inflamma Pain Assessment & Plan Assessment & Plan (1) Schizophrenia, chronic condition: Status: Acute Code(s): F20.9 - Schizophrenia, unspecified Assessment and Plan: 09/05/2021: No changes to primary team treatment plan. They are utilizing Abilify and monitoring for benefit. 09/06/2021: No changes to medication, continue abilify and risperdal low dose 09/08: no change to Tx plan. discharge . VNA services being arranged. I spent __25____ minutes with the patient and/or on the patient floor today, greater than?50% of which was spent counseling/coordinating care. Reason for contiued inpatient stay Substantial Risk for: inability to function and rapid decompensation
[2021-09-08 17:46] LABS: Glucose, Whole Blood 161 mg/dL (60-115)
[2021-09-08 20:05] VITALS: BP 144/93; PULSE 84; RESP 18; TEMP 36.4; O2SAT 92
[2021-09-08 20:58] LABS: Glucose, Whole Blood 217 mg/dL (60-115)
[2021-09-08] MEDS: LORazepam 1 MG TABLET PO (21:23)
[2021-09-08] MEDS: Divalproex Sodium ER 500 MG TAB.ER.24H PO (21:23)
[2021-09-08] MEDS: Melatonin 3 MG TABLET PO (21:23)
[2021-09-09 08:50] VITALS: BP 124/75; PULSE 82; RESP 18; TEMP 36.7; O2SAT 98
[2021-09-09] MEDS: Omeprazole 20 MG CAPSULE.DR PO (08:58)
[2021-09-09] MEDS: ARIPiprazole 10 MG TABLET PO (08:58)
[2021-09-09] MEDS: Torsemide 20 MG TABLET PO ×2 (08:58→22:06)
[2021-09-09] MEDS: Folic Acid 1 MG TABLET PO (08:59)
[2021-09-09] MEDS: Loratadine 10 MG TABLET PO (08:59)
[2021-09-09] MEDS: Lactulose 20 GM/30 ML SOLUTION PO (08:59)
[2021-09-09] MEDS: Benztropine Mesylate 0.5 MG TABLET PO ×2 (08:59→22:06)
[2021-09-09] MEDS: Lipase/Prot/Amylase 24/76/120K 1 CAP CAPSULE.DR PO ×3 (08:59→17:38)
[2021-09-09] MEDS: Multivitamin TABLET 1 TAB PO (08:59)
[2021-09-09] MEDS: risperiDONE 1 MG TABLET PO ×2 (08:59→22:05)
[2021-09-09] MEDS: Divalproex Sodium ER 250 MG TAB.ER.24H PO (08:59)
[2021-09-09] MEDS: Magnesium Oxide 400 MG TABLET PO ×2 (08:59→17:38)
[2021-09-09] MEDS: carvediloL 6.25 MG TABLET PO ×2 (08:59→22:05)
[2021-09-09 09:13] LABS: Glucose, Whole Blood 153 mg/dL (60-115)
[2021-09-09] MEDS: Insulin Lispro 100 UNIT/ML 3 ML VIAL SUBCUT ×2 (09:19→20:57)
[2021-09-09] MEDS: Nicotine Polacrilex 2 MG GUM BUCCAL ×3 (09:32→22:05)
[2021-09-09] MEDS: LORazepam 1 MG TABLET PO (12:42)
[2021-09-09 12:48] LABS: Glucose, Whole Blood 119 mg/dL (60-115)
--- NOTE | 2021-09-09 14:29 | P.PNPSI_ITS ---
Subjective Subjective Date of Service: 09/09/21 Reason For Visit: unspecified schizophrenia Interim History: calm, cooperative. focused on her belief some of her belongings have been lost (later informed by staff they had been found). otherwise feels comfortable discharging tomorrow, cites supports in her daughter and her landlord. no complaints or requests. per staff 3-day up tomorrow. not attending groups. rocking back and forth with headphones on, looking at the wall. slept well. VNA set up. discharge tomorrow. Mental Status Exam Mental Status Exam Narrative: In hospital attire, hair short, unkempt. Good eye contact, attentive. No Tics or Tremors. some cud-chewing jaw movements. Calm, cooperative, engaged. Non- pressured speech, spontaneous with regular rate and rhythm, normal volume and prosody. No prolonged speech latency or dysarthria. Mood is euthymic, affect is appropriate. no SI/SIB/HI/AVH expressed. thoughts are loose. No known cognitive or memory impairment. Insight/ Judgment limited but adequate. Diagnostics Vital Signs (24Hr): Vital Signs - 24 hr 09/08/21 20:05 09/09/21 08:50 Temperature 97.6 F 98.1 F Pulse Rate 84 82 Respiratory Rate 18 18 Blood Pressure 144/93 H 124/75 Pulse Oximetry 92 98 Oxygen Delivery Method Room Air Room Air Labs Labs: Laboratory Results - last 48 hr 09/07/21 09/07/21 09/08/21 17:26 21:07 08:12 POC Glucose 147 H 146 H 127 H 09/08/21 09/08/21 09/08/21 12:27 17:41 20:51 POC Glucose 207 H 161 H 217 H 09/09/21 09/09/21 09:09 12:41 POC Glucose 153 H 119 H Medications Medications Current Medications Acetaminophen (Acetaminophen 325 Mg Tablet) 650 mg PO Q6H PRN PRN Reason: Headache/Pain Mild Scale (1-3) Last Admin: 09/06/21 11:41 Dose: 650 mg Al Hydroxide/Mg Hydroxide (Magnesium Hydrox/Alum Hydrox 30 Ml Oral.Susp) 30 ml PO Q6H PRN PRN Reason: Heartburn/Nausea Lipase/Protease/Amylase (Lipase/Prot/Amylase 24/76/120k 1 Cap Capsule.Dr) 1 cap PO TIDWM [facility] Last Admin: 09/09/21 12:43 Dose: 1 cap Aripiprazole (Aripiprazole 10 Mg Tablet) 10 mg PO DAILY [facility] [place] Last Admin: 09/09/21 08:58 Dose: 10 mg Benztropine Mesylate (Benztropine Mesylate 0.5 Mg Tablet) 0.5 mg PO BID [facility] Last Admin: 09/09/21 08:59 Dose: 0.5 mg Carvedilol (Carvedilol 6.25 Mg Tablet) 6.25 mg PO BID [facility] [place]; Protocol Last Admin: 09/09/21 08:59 Dose: 6.25 mg Clonidine HCl (Clonidine Hcl 0.1 Mg Tablet) 0.1 mg PO BID PRN; Protocol PRN Reason: anxiety, hyperarousal Last Admin: 09/04/21 20:19 Dose: 0.1 mg Divalproex Sodium (Divalproex Sodium Er 250 Mg Tab.Er.24h) 250 mg PO DAILY [facility] [place] Last Admin: 09/09/21 08:59 Dose: 250 mg Divalproex Sodium (Divalproex Sodium Er 500 Mg Tab.Er.24h) 500 mg PO BEDTIME [facility] [place] Last Admin: 09/08/21 21:23 Dose: 500 mg Folic Acid (Folic Acid 1 Mg Tablet) 1 mg PO DAILY [facility] Last Admin: 09/09/21 08:59 Dose: 1 mg Gabapentin (Gabapentin 100 Mg Capsule) 100 mg PO DAILY PRN PRN Reason: anxiety Hydroxyzine HCl (Hydroxyzine Hcl 25 Mg Tablet) 25 mg PO BEDTIME PRN PRN Reason: Anxiety Insulin Human Lispro (Insulin Lispro 100 Unit/Ml 3 Ml Vial) 0 unit SUBCUT QIDACHS [facility] [place]; Protocol Last Admin: 09/09/21 12:44 Dose: Not Given Lactulose (Lactulose 20 Gm/30 Ml Solution) 20 gm PO BID [facility] Last Admin: 09/09/21 08:59 Dose: 20 gm Loperamide HCl (Loperamide Hcl 2 Mg Capsule) 2 mg PO Q6H PRN PRN Reason: loose stool Loratadine (Loratadine 10 Mg Tablet) 10 mg PO DAILY [facility] Last Admin: 09/09/21 08:59 Dose: 10 mg Lorazepam (Lorazepam 1 Mg Tablet) 1 mg PO TID PRN PRN Reason: agitation, anxiety Last Admin: 09/09/21 12:42 Dose: 1 mg Magnesium Hydroxide (Milk Of Magnesia 30 Ml Oral.Susp) 30 ml PO DAILY PRN PRN Reason: Constipation Magnesium Oxide ([facility] 400 Mg [facility]) [facility] Last Admin: 09/09/21 08:59 Dose: 400 mg Melatonin (Melatonin 3 Mg Tablet) 3 mg PO BEDTIME PRN PRN Reason: sleep Last Admin: 09/08/21 21:23 Dose: 3 mg Multivitamins/Vitamin C (Multivitamin Tablet) 1 tab PO DAILY [facility] Last Admin: 09/09/21 08:59 Dose: 1 tab Nicotine Polacrilex (Nicotine Polacrilex 2 Mg Gum) 2 mg BUCCAL Q2H PRN PRN Reason: nicotine withdrawal Last Admin: 09/09/21 13:53 Dose: 2 mg Omeprazole (Omeprazole 20 Mg Capsule.Dr) 20 mg PO DAILY@0630 [facility] [place] [place] Last Admin: 09/09/21 08:58 Dose: 20 mg Risperidone (Risperidone 1 Mg Tablet) 1 mg PO BID [facility] [place] Last Admin: 09/09/21 08:59 Dose: 1 mg Torsemide (Torsemide 20 Mg Tablet) 20 mg PO BID [facility] [place]; Protocol Last Admin: 09/09/21 08:58 Dose: 20 mg Trazodone HCl (Trazodone Hcl 50 Mg Tablet) 50 mg PO BEDTIME PRN PRN Reason: Insomnia Allergies Allergies Allergy/AdvReac Type Severity Reaction Status Date / Time olanzapine [From Zyprexa] Allergy Unknown Verified 09/03/21 14:49 prednisone Allergy Unknown Verified 09/03/21 14:49 NSAIDS (Non-Steroidal AdvReac Mild Abdominal Verified 09/03/21 14:49 Anti-Inflamma Pain Assessment & Plan Assessment & Plan (1) Schizophrenia, chronic condition: Status: Acute Code(s): F20.9 - Schizophrenia, unspecified Assessment and Plan: 09/05/2021: No changes to primary team treatment plan. They are utilizing Abilify and monitoring for benefit. 09/06/2021: No changes to medication, continue abilify and risperdal low dose 09/07/2021: Decrease abilify to 10 mg and increase risperdal to 1 mg BID, may consider switching to ARIAS and continue to titrate abilify down to target paranoid thought content and promote med adherence. 09/09: no change in current plan. discharge tomorrow. aftercare arranged. I spent ___25___ minutes with the patient and/or on the patient floor today, greater than?50% of which was spent counseling/coordinating care. Reason for contiued inpatient stay Substantial Risk for: inability to function and rapid decompensation
[2021-09-09 17:48] LABS: Glucose, Whole Blood 124 mg/dL (60-115)
[2021-09-09 20:47] LABS: Glucose, Whole Blood 156 mg/dL (60-115)
[2021-09-09] MEDS: Divalproex Sodium ER 500 MG TAB.ER.24H PO (22:06)
[2021-09-09 22:10] VITALS: BP 145/81; PULSE 83; TEMP 36.3; O2SAT 94
[2021-09-10 08:30] VITALS: BP 132/82; PULSE 98; RESP 18; TEMP 36.6; O2SAT 93
[2021-09-10] MEDS: Loratadine 10 MG TABLET PO (08:34)
[2021-09-10] MEDS: Torsemide 20 MG TABLET PO (08:34)
[2021-09-10] MEDS: ARIPiprazole 10 MG TABLET PO (08:34)
[2021-09-10] MEDS: Benztropine Mesylate 0.5 MG TABLET PO (08:34)
[2021-09-10] MEDS: carvediloL 6.25 MG TABLET PO (08:35)
[2021-09-10] MEDS: Folic Acid 1 MG TABLET PO (08:35)
[2021-09-10] MEDS: Omeprazole 20 MG CAPSULE.DR PO (08:35)
[2021-09-10] MEDS: Lactulose 20 GM/30 ML SOLUTION PO (08:35)
[2021-09-10] MEDS: Multivitamin TABLET 1 TAB PO (08:35)
[2021-09-10] MEDS: risperiDONE 1 MG TABLET PO (08:35)
[2021-09-10] MEDS: Magnesium Oxide 400 MG TABLET PO (08:35)
[2021-09-10] MEDS: Divalproex Sodium ER 250 MG TAB.ER.24H PO (08:35)
[2021-09-10] MEDS: Lipase/Prot/Amylase 24/76/120K 1 CAP CAPSULE.DR PO ×2 (08:35→11:06)
[2021-09-10 09:07] LABS: Glucose, Whole Blood 158 mg/dL (60-115)
[2021-09-10] MEDS: Insulin Lispro 100 UNIT/ML 3 ML VIAL SUBCUT ×2 (09:07→12:42)
[2021-09-10 10:00] VITALS: BMI 33.0
[2021-09-10] MEDS: Nicotine Polacrilex 2 MG GUM BUCCAL (11:06)
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
[2021-09-10 12:40] LABS: Glucose, Whole Blood 197 mg/dL (60-115)
== END 2021-09-10 13:46 | disposition home health service (06) | DRG 750 ==
PROVIDERS: Admitting Provider Psychiatry & Neurology Psychiatry; Visit Provider Psychiatry & Neurology Psychiatry
DX: F25.9 Schizoaffective disorder, unspecified (principal); I13.0 Hypertensive heart and chronic kidney disease with heart failure and stage 1 through stage 4 chronic kidney disease, or unspecified chronic kidney disease; J18.9 Pneumonia, unspecified organism; I27.20 Pulmonary hypertension, unspecified; I50.82 Biventricular heart failure; E11.22 Type 2 diabetes mellitus with diabetic chronic kidney disease; D64.9 Anemia, unspecified; K75.81 Nonalcoholic steatohepatitis (NASH); E66.9 Obesity, unspecified; F17.210 Nicotine dependence, cigarettes, uncomplicated; K74.60 Unspecified cirrhosis of liver; K86.1 Other chronic pancreatitis; N18.30 Chronic kidney disease, stage 3 unspecified; G89.29 Other chronic pain; M54.50 Low back pain, unspecified; J45.909 Unspecified asthma, uncomplicated; Z62.810 Personal history of physical and sexual abuse in childhood; Z79.899 Other long term (current) drug therapy; Z79.4 Long term (current) use of insulin
CPT/HCPCS: 82947

== ENCOUNTER 2021-10-28 10:45 | Inpatient (IN) | payer OTHER, SELFPAY ==
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
--- NOTE | 2021-10-28 11:38 | ECG_ITS ---
Test Reason : med clearance Blood Pressure : / mmHG Vent. Rate : 088 BPM Atrial Rate : 088 BPM P-R Int : 190 ms QRS Dur : 100 ms QT Int : 402 ms P-R-T Axes : 059 066 054 degrees QTc Int : 486 ms Normal sinus rhythm Possible Left atrial enlargement Prolonged QT Abnormal ECG No previous ECGs available Referred By: Shaun Olivia Electronically Signed By:PREETI CARRILLO
[2021-10-28 11:57] VITALS: BP 130/88; BP 130/89; PULSE 88; PULSE 89; RESP 18; TEMP 36.6; O2SAT 98; BMI 24.3
[2021-10-28 12:29] LABS: Amphetamine Screen Urine Not Detected (Not Detect); Barbiturates, Urine Not Detected (Not Detect); Benzodiazepines Screen Urine Not Detected (Not Detect); Cannabinoid Screen Urine Not Detected (Not Detect); Cocaine Screen Urine Not Detected (Not Detect); Fentanyl, urine POSITIVE (Not Detect); Opiate Screen Urine Not Detected (Not Detect); Phencyclidine Screen Urine Not Detected (Not Detect)
[2021-10-28 12:33] LABS: COVID-19 Test Negative (Negative)
[2021-10-28 13:00] LABS: Hematocrit 41.4 % (37.0-47.0); Hemoglobin 14.1 g/dl (12.0-16.0); Mean Corpuscular HGB Conc 34.1 g/dl (31.0-35.0); Mean Corpuscular Hemoglobin 30.3 pg (27.0-33.0); Mean Corpuscular Volume 88.8 fL (80.0-98.0); Mean Platelet Volume 12.8 fL (9.4-12.3); Platelet Count 316 X10*3/uL (160-400); Red Cell Distribution Width 15.9 % (11.0-16.0)
[2021-10-28 13:01] LABS: WBC ABN SCTR FOR CBC 1
[2021-10-28 13:02] LABS: Red Blood Count 4.66 X10*6/uL (4.20-5.50)
[2021-10-28 13:11] LABS: Ammonia 27 umol/L (13-55)
[2021-10-28 13:18] LABS: Acetaminophen LAB 2 mcg/mL (<30); Alanine Aminotransferase 34 U/L (0-31); Albumin Level 4.3 g/dL (3.5-5.0); Alkaline Phosphatase 256 U/L (39-117); Anion Gap 19 (12-20); Aspartate Amino Transferase 48 U/L (5-31); Bilirubin Total 0.6 mg/dL (0.0-1.0); Blood Urea Nitrogen 14 mg/dL (9-16); Calcium 9.5 mg/dL (8.4-10.2); Carbon Dioxide 26 mmol/L (22-29); Chloride 92 mmol/L (96-108); Creatinine Clr Calc Pharmacy 53.3; Estimated Glomerular Filt Rate 45; Ethanol < 10 mg/dL; Glucose Random 154 mg/dL (60-115); Lipase 16 U/L (8-78); Potassium 3.7 mmol/L (3.3-5.1); Salicylate 6.3 mg/dL (15-30); Sodium 133 mmol/L (135-145); Total Protein 8.2 g/dL (6.5-8.0)
[2021-10-28 13:23] LABS: INTERNATIONAL NORM RATIO 1.1 (0.9-1.1); Prothrombin Time 12.6 SEC (10.0-13.1)
[2021-10-28 13:24] LABS: B Type Natriuretic Peptide 23 pg/mL (<100)
[2021-10-28 13:25] LABS: Troponin-I High Sensitivity 5.7 ng/L (<3.5-17.0)
[2021-10-28 13:34] LABS: Atypical Lymphs Percent Manual 3 % (0-6); Band Neutrophils Percent 1 % (3-5); Basophils Percent Manual 2 % (0-2); Lymphocytes Percent Manual 59 % (20-40); Monocytes Percent Manual 7 % (2-11); Neutrophils Percent Manual 28 % (45-73); Valproate 34.4 mcg/mL (50.0-100.0)
[2021-10-28 13:37] LABS: Acanthocytes 1+ (0-2) /OIF; RBC Morphology NOTED; Schistocytes 1+ (0-2) /OIF
[2021-10-28 13:38] LABS: Target Cells 1+ (5-14) /OIF
[2021-10-28 13:40] LABS: Burr Cells 1+ (0-2) /OIF
[2021-10-28 13:41] LABS: Howell Jolly Bodies PRESENT; Hypochromasia 1+ (5-14) /OIF; Smudge Cells PRESENT
[2021-10-28 13:42] LABS: Large Platelet PRESENT; Platelet Estimate NORMAL (NORMAL); Platelet Morphology Comment NOTED
[2021-10-28 15:12] LABS: Atypical Lymph Absolute Manual 0.3 x10*3/uL; Basophils Abs Manual 0.2 X10*3/uL (0.0-0.2); Lymphocytes Absolute Manual 5.4 X10*3/uL (1.2-4.9); Monocytes Absolute Manual 0.6 X10*3/uL (0.1-1.2); Neutrophils Absolute Manual 2.6 X10*3/uL (2.0-8.3); White Blood Count 9.1 X10*3/uL (4.8-10.8)
[2021-10-28 17:54] LABS: Acetaminophen LAB < 1 mcg/mL (<30); Salicylate < 5.0 mg/dL (15-30)
[2021-10-28 20:05] LABS: Glucose, Whole Blood 161 mg/dL (60-115)
[2021-10-28] MEDS: Divalproex Sodium ER 250 MG TAB.ER.24H PO (22:26)
[2021-10-28] MEDS: Benztropine Mesylate 0.5 MG TABLET PO (22:26)
[2021-10-28] MEDS: ARIPiprazole 10 MG TABLET PO (22:26)
[2021-10-28] MEDS: risperiDONE 1 MG TABLET PO (22:26)
[2021-10-28] MEDS: Folic Acid 1 MG TABLET PO (22:26)
[2021-10-28] MEDS: Divalproex Sodium ER 500 MG TAB.ER.24H PO (22:27)
[2021-10-28] MEDS: Insulin Glargine,Hum.rec.anlog 100 UNIT/ML 10 ML VIAL 16 UNIT SUBCUT (22:36)
[2021-10-28] MEDS: carvediloL 6.25 MG TABLET PO (22:36)
[2021-10-28] MEDS: Lactulose 20 GM/30 ML SOLUTION PO (22:37)
[2021-10-28 22:40] VITALS: BP 152/96; PULSE 98; RESP 16; O2SAT 95
[2021-10-29 03:52] VITALS: BP 148/87; PULSE 89; RESP 16; TEMP 36.7; O2SAT 97
--- NOTE | 2021-10-29 06:28 | PC.NURSE ---
Patient slept through the night, no distress observed/reported, medication compliant, behavior non concerning at this time, patient has concerns about her money and seeking help to get access to her account, MARVEL evaluated the patient, pending disposition/reevaluate in the morning by N, VSS, coherent, alert and orientedx4, will continue to monitor
[2021-10-29] MEDS: Omeprazole 20 MG CAPSULE.DR PO (06:44)
[2021-10-29 08:33] LABS: Glucose, Whole Blood 140 mg/dL (60-115)
[2021-10-29] MEDS: Lipase/Prot/Amylase 24/76/120K 1 CAP CAPSULE.DR PO ×2 (08:36→12:30)
[2021-10-29] MEDS: Multivitamin TABLET 1 TAB PO (08:37)
[2021-10-29] MEDS: Loratadine 10 MG TABLET PO (08:37)
[2021-10-29] MEDS: Divalproex Sodium ER 250 MG TAB.ER.24H PO (08:37)
[2021-10-29] MEDS: Lactulose 20 GM/30 ML SOLUTION PO ×2 (08:37→23:03)
[2021-10-29] MEDS: Torsemide 20 MG TABLET PO (08:37)
[2021-10-29] MEDS: ARIPiprazole 10 MG TABLET PO (08:37)
[2021-10-29] MEDS: Benztropine Mesylate 0.5 MG TABLET PO ×2 (08:37→23:03)
[2021-10-29] MEDS: carvediloL 6.25 MG TABLET PO ×2 (08:37→23:03)
[2021-10-29] MEDS: Folic Acid 1 MG TABLET PO (08:37)
[2021-10-29] MEDS: risperiDONE 1 MG TABLET PO ×2 (08:37→23:03)
[2021-10-29] MEDS: Insulin Glargine,Hum.rec.anlog 100 UNIT/ML 10 ML VIAL 16 UNIT SUBCUT (08:37)
[2021-10-29] MEDS: Magnesium Oxide 400 MG TABLET PO (08:37)
--- NOTE | 2021-10-29 08:52 | PC.NURSE ---
Patient is cooperative with this RN but states why are the social workers giving me the run around? I have important private concerns for them . Aware that plan is for [facility] to speak with her today.
[2021-10-29 10:12] VITALS: BP 150/81; PULSE 71; RESP 16; TEMP 36.4; O2SAT 96
--- NOTE | 2021-10-29 12:21 | PC.NURSE ---
Medication not in Pyxis, pharmacy notified. Awaiting medication.
--- NOTE | 2021-10-29 14:01 | PC.NURSE ---
Addendum entered by Keo Molina 10/29/21 14:30: test ordered. Original Note: Patient asked this RN and tech for test. Dr. Davey made aware
[2021-10-29] MEDS: Nicotine Polacrilex 2 MG GUM BUCCAL (14:29)
[2021-10-29 14:50] LABS: UPreg QC Valid YES; Urine Pregnancy NEGATIVE (NEGATIVE)
[2021-10-29 16:50] LABS: COVID-19 Test Negative (Negative); IDNOW Serial# 16C4AD1C
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
[2021-10-29 17:56] VITALS: BP 157/80; PULSE 82; TEMP 36.6; O2SAT 94
--- NOTE | 2021-10-29 19:20 | PC.NURSE ---
Bharti Blair is readmitted to M3 from [facility] pod on CV for exacerbation of psychosis and suicidality. During admission assessment thought process is disorganized, speech is tangential and ability to focus was poor. She did not answer assessment questions appropriately. She reports taking #10 oxycodone several days ago because she wanted to and was hearing voices. She denies current ideation, plan or intent to harm self or others. She reports that she had missed several days of medications for unknown reasons and the voices came back. She denies depression and reports tiny anxiety. She reports poor sleep and poor appetite. She has outpatient services including VNA through [facility]. She reports hx of CHF, HTN and Type 2 diabetes. She denies current physical complaint.
[2021-10-29 22:59] LABS: Glucose, Whole Blood 99 mg/dL (60-115)
[2021-10-29] MEDS: Divalproex Sodium ER 500 MG TAB.ER.24H PO (23:03)
[2021-10-29] MEDS: traZODone HCL 50 MG TABLET PO (23:09)
[2021-10-29] MEDS: chlorproMAZINE HCl 25 MG TABLET PO (23:09)
[2021-10-29] MEDS: Melatonin 3 MG TABLET PO (23:11)
[2021-10-30 07:55] VITALS: BP 142/75; PULSE 81; RESP 17; TEMP 36.6; O2SAT 96
[2021-10-30 08:53] LABS: Glucose, Whole Blood 122 mg/dL (60-115)
[2021-10-30] MEDS: Insulin Glargine,Hum.rec.anlog 100 UNIT/ML 10 ML VIAL 16 UNIT SUBCUT (09:10)
[2021-10-30] MEDS: carvediloL 6.25 MG TABLET PO ×2 (09:11→20:17)
[2021-10-30] MEDS: Magnesium Oxide 400 MG TABLET PO ×2 (09:11→17:09)
[2021-10-30] MEDS: Torsemide 20 MG TABLET PO ×2 (09:11→17:09)
[2021-10-30] MEDS: Folic Acid 1 MG TABLET PO (09:11)
[2021-10-30] MEDS: risperiDONE 1 MG TABLET PO ×2 (09:11→20:17)
[2021-10-30] MEDS: Divalproex Sodium ER 250 MG TAB.ER.24H PO (09:11)
[2021-10-30] MEDS: ARIPiprazole 10 MG TABLET PO (09:11)
[2021-10-30] MEDS: Omeprazole 20 MG CAPSULE.DR PO (09:11)
[2021-10-30] MEDS: Lactulose 20 GM/30 ML SOLUTION PO ×2 (09:12→20:18)
[2021-10-30] MEDS: Benztropine Mesylate 0.5 MG TABLET PO ×2 (09:12→20:17)
[2021-10-30] MEDS: Loratadine 10 MG TABLET PO (09:12)
[2021-10-30 10:01] LABS: Cholesterol 225 mg/dL; HDL Cholesterol 74 mg/dL; LDL Cholesterol Calculated 129 mg/dl; Magnesium 1.6 mg/dL (1.6-2.6); Triglycerides 113 mg/dL
[2021-10-30 10:22] LABS: Free T4 (Free Thyroxine) 1.24 ng/dL (0.71-1.85); Thyroid Stimulating Hormone 1.36 uIU/mL (0.32-4.0)
[2021-10-30] MEDS: Multivitamin TABLET 1 TAB PO (10:48)
[2021-10-30 10:49] LABS: Folate > 20.0 ng/mL (> or = 4.0); Vitamin B12 777 pg/mL (200-900)
[2021-10-30] MEDS: Insulin Lispro 100 UNIT/ML 3 ML VIAL SUBCUT ×2 (11:46→21:36)
[2021-10-30] MEDS: Lipase/Prot/Amylase 24/76/120K 1 CAP CAPSULE.DR PO ×2 (11:59→17:09)
[2021-10-30] MEDS: Nicotine Polacrilex 2 MG GUM BUCCAL ×2 (12:05→21:43)
[2021-10-30] MEDS: Nicotine 21 MG PATCH.TD24 TRANSDERMA (12:33)
--- NOTE | 2021-10-30 14:30 | MHC.CLN ---
Addendum entered by Delia Cross RD 10/30/21 14:31: PATIENT REPORTS THAT HER APPETITE IS GOOD. NO ADDITIONAL NUTRITION INTERVENTIONS AT THIS TIME. Original Note: NUTRITION CHANGED DIET TO DIABETIC 2000 KCAL. PATIENT WITH DX DM AND TAKES DM MEDS.
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
[2021-10-30 17:08] LABS: Glucose, Whole Blood 182 mg/dL (60-115)
[2021-10-30 17:08] LABS: Glucose, Whole Blood 98 mg/dL (60-115)
[2021-10-30 20:15] VITALS: BP 150/87; PULSE 104; RESP 16; TEMP 36.2; O2SAT 93
[2021-10-30] MEDS: Divalproex Sodium ER 500 MG TAB.ER.24H PO (20:17)
[2021-10-30 20:23] LABS: Glucose, Whole Blood 177 mg/dL (60-115)
[2021-10-30] MEDS: guaiFENesin DM 600/30 1 TAB TAB.ER.12H PO (21:37)
[2021-10-30 22:26] LABS: COVID-19 Test Negative (Negative)
[2021-10-31 09:29] LABS: Glucose, Whole Blood 85 mg/dL (60-115)
[2021-10-31 09:32] VITALS: BP 138/91; PULSE 80; RESP 16; TEMP 36.7; O2SAT 96
[2021-10-31] MEDS: Insulin Glargine,Hum.rec.anlog 100 UNIT/ML 10 ML VIAL 16 UNIT SUBCUT (09:35)
[2021-10-31] MEDS: Lactulose 20 GM/30 ML SOLUTION PO ×2 (09:35→20:59)
[2021-10-31] MEDS: Torsemide 20 MG TABLET PO ×2 (09:37→17:37)
[2021-10-31] MEDS: Magnesium Oxide 400 MG TABLET PO ×2 (09:38→17:33)
[2021-10-31] MEDS: Benztropine Mesylate 0.5 MG TABLET PO ×2 (09:38→20:58)
[2021-10-31] MEDS: Folic Acid 1 MG TABLET PO (09:38)
[2021-10-31] MEDS: Lipase/Prot/Amylase 24/76/120K 1 CAP CAPSULE.DR PO ×3 (09:38→17:33)
[2021-10-31] MEDS: Multivitamin TABLET 1 TAB PO (09:38)
[2021-10-31] MEDS: Loratadine 10 MG TABLET PO (09:39)
[2021-10-31] MEDS: carvediloL 6.25 MG TABLET PO ×2 (09:39→20:59)
[2021-10-31] MEDS: ARIPiprazole 10 MG TABLET PO (09:39)
[2021-10-31] MEDS: risperiDONE 1 MG TABLET PO ×2 (09:39→20:58)
[2021-10-31] MEDS: Omeprazole 20 MG CAPSULE.DR PO (09:39)
[2021-10-31] MEDS: Divalproex Sodium ER 250 MG TAB.ER.24H PO (09:39)
[2021-10-31 12:51] LABS: Glucose, Whole Blood 97 mg/dL (60-115)
[2021-10-31] MEDS: Nicotine 21 MG PATCH.TD24 TRANSDERMA (13:23)
[2021-10-31] MEDS: Nicotine Polacrilex 2 MG GUM BUCCAL ×2 (13:25→19:36)
--- NOTE | 2021-10-31 14:35 | HO.PSYCHPN ---
Subjective Subjective Date of Service: 10/31/21 Reason For Visit: Psychosis Medical Problems Affecting Mental Status: No Interim History: no acute management issues. Reports to policy writer that things have not been going well. Did use the term schizophrenia and at times can feel paranoid and scared. Denies suicidal thoughts. Is tangential in thought form. Reports taking fentanyl due to having PTSD symptoms about her kids being taken into DCF. Sleep okay. Reports overall feeling safe here, With some paranoia but did not want to expand upon same. No SI. Medication Compliance: Yes Side effects from medications: No Attending Groups: Intermittent Review of Systems Acute medical concerns: No Review of Systems Review of Systems guarded. Self-care okay. Affect flat. No SI. No HI. Some paranoia. No hallucinations. No agitation. Insight and judgment improving Diagnostics Vital Signs (24Hr): Vital Signs - 24 hr 10/30/21 20:15 10/31/21 09:32 Temperature 97.2 F 98.0 F Pulse Rate 104 H 80 Respiratory Rate 16 16 Blood Pressure 150/87 H 138/91 H Pulse Oximetry 93 96 Oxygen Delivery Method Room Air Room Air BMI result Body Mass Index 24.3 Labs Results: 10/28/21 12:47 10/28/21 12:47 Labs: Laboratory Results - last 48 hr 10/29/21 10/29/21 10/29/21 14:39 16:26 22:55 POC Glucose 99 Magnesium Triglycerides Cholesterol LDL Cholesterol, Calc HDL Cholesterol Vitamin B12 Folate TSH Free T4 Urine Test NEGATIVE COVID-19 ([facility]) Negative COVID-19 [employer] See Note 10/30/21 10/30/21 10/30/21 08:49 08:57 08:57 POC Glucose 122 H Magnesium 1.6 Triglycerides 113 Cholesterol 225 LDL Cholesterol, Calc 129 HDL Cholesterol 74 Vitamin B12 777 Folate > 20.0 TSH 1.36 Free T4 1.24 Urine Test COVID-19 ([facility]) COVID-19 [employer] 10/30/21 10/30/21 10/30/21 11:40 17:03 20:16 POC Glucose 182 H 98 177 H Magnesium Triglycerides Cholesterol LDL Cholesterol, Calc HDL Cholesterol Vitamin B12 Folate TSH Free T4 Urine Test COVID-19 ([facility]) COVID-19 [employer] 10/30/21 10/31/21 10/31/21 21:35 09:24 12:47 POC Glucose 85 97 Magnesium Triglycerides Cholesterol LDL Cholesterol, Calc HDL Cholesterol Vitamin B12 Folate TSH Free T4 Urine Test COVID-19 ([facility]) Negative COVID-19 Clin Com See Note Medications Medications Current Medications Al Hydroxide/Mg Hydroxide (Magnesium Hydrox/Alum Hydrox 30 Ml Oral.Susp) 30 ml PO Q6H PRN PRN Reason: Heartburn/Nausea Lipase/Protease/Amylase (Lipase/Prot/Amylase 24/76/120k 1 Cap Capsule.Dr) 1 cap PO TIDWM [facility] Last Admin: 10/31/21 13:01 Dose: 1 cap Aripiprazole (Aripiprazole 10 Mg Tablet) 10 mg PO DAILY [facility] Last Admin: 10/31/21 09:39 Dose: 10 mg Benztropine Mesylate (Benztropine Mesylate 0.5 Mg Tablet) 0.5 mg PO BID [facility] Last Admin: 10/31/21 09:38 Dose: 0.5 mg Carvedilol (Carvedilol 6.25 Mg Tablet) 6.25 mg PO BID [facility]; Protocol Last Admin: 10/31/21 09:39 Dose: 6.25 mg Chlorpromazine HCl (Chlorpromazine Hcl 25 Mg Tablet) 25 mg PO Q6H PRN PRN Reason: agitation, psychosis Last Admin: 10/29/21 23:09 Dose: 25 mg Divalproex Sodium (Divalproex Sodium Er 250 Mg Tab.Er.24h) 250 mg PO DAILY [facility] Last Admin: 10/31/21 09:39 Dose: 250 mg Divalproex Sodium (Divalproex Sodium Er 500 Mg Tab.Er.24h) 500 mg PO BEDTIME [facility] Last Admin: 10/30/21 20:17 Dose: 500 mg Folic Acid (Folic Acid 1 Mg Tablet) 1 mg PO DAILY [facility] Last Admin: 10/31/21 09:38 Dose: 1 mg Gabapentin (Gabapentin 100 Mg Capsule) 100 mg PO DAILY PRN PRN Reason: anxiety Guaifenesin/Dextromethorphan (Guaifenesin Dm 600/30 1 Tab Tab.Er.12h) 1 tab PO BID PRN PRN Reason: congestion Last Admin: 10/30/21 21:37 Dose: 1 tab Insulin Glargine (Insulin Glargine,Hum.Rec.Anlog 100 Unit/Ml 10 Ml Vial) 16 unit SUBCUT DAILY [facility] Last Admin: 10/31/21 09:35 Dose: 16 unit Insulin Human Lispro (Insulin Lispro 100 Unit/Ml 3 Ml Vial) 0 unit SUBCUT QIDACHS [facility]; Protocol Last Admin: 10/31/21 13:21 Dose: Not Given Lactulose (Lactulose 20 Gm/30 Ml Solution) 20 gm PO BID [facility] Last Admin: 10/31/21 09:35 Dose: 20 gm Loratadine (Loratadine 10 Mg Tablet) 10 mg PO DAILY [facility] Last Admin: 10/31/21 09:39 Dose: 10 mg Magnesium Hydroxide (Milk Of Magnesia 30 Ml Oral.Susp) 30 ml PO DAILY PRN PRN Reason: Constipation Magnesium Oxide (Magnesium Oxide 400 Mg Tablet) 400 mg PO BIDPC [facility] Last Admin: 10/31/21 09:38 Dose: 400 mg Melatonin (Melatonin 3 Mg Tablet) 3 mg PO BEDTIME PRN PRN Reason: insomnia Last Admin: 10/29/21 23:11 Dose: 3 mg Multivitamins/Vitamin C (Multivitamin Tablet) 1 tab PO DAILY [facility] Last Admin: 10/31/21 09:38 Dose: 1 tab Nicotine (Nicotine 21 Mg Patch.Td24) 21 mg TRANSDERMA DAILY [facility] Last Admin: 10/31/21 13:23 Dose: 21 mg Nicotine Polacrilex (Nicotine Polacrilex 2 Mg Gum) 2 mg BUCCAL QID PRN PRN Reason: Nicotine Cravings Last Admin: 10/31/21 13:25 Dose: 2 mg Omeprazole (Omeprazole 20 Mg Capsule.Dr) 20 mg PO DAILY@0630 [facility] Last Admin: 10/31/21 09:39 Dose: 20 mg Risperidone (Risperidone 1 Mg Tablet) 1 mg PO BID [facility] Last Admin: 10/31/21 09:39 Dose: 1 mg Torsemide (Torsemide 20 Mg Tablet) 20 mg PO BIDWM [facility]; Protocol Last Admin: 10/31/21 09:37 Dose: 20 mg Trazodone HCl (Trazodone Hcl 50 Mg Tablet) 50 mg PO BEDTIME PRN PRN Reason: Insomnia Last Admin: 10/29/21 23:09 Dose: 50 mg Allergies Allergies Allergy/AdvReac Type Severity Reaction Status Date / Time olanzapine [From Zyprexa] Allergy Unknown Verified 09/03/21 14:49 prednisone Allergy Unknown Verified 09/03/21 14:49 NSAIDS (Non-Steroidal AdvReac Mild Abdominal Verified 09/03/21 14:49 Anti-Inflamma Pain Assessment & Plan Assessment & Plan (1) Schizophrenia, chronic condition: Status: Acute Code(s): F20.9 - Schizophrenia, unspecified Plan Bharti is a 55 y.o. Female who carries a dx of schizophrenia. She presented to [facility] on 10/28/2021 due to psychosis, disorganized and decompensated. Recent discharge from [facility] in 08/2021 for decompensation in psychosis in context of recent hospitalization for pneumnonia superimposed on CHF. Utox negative except for fentanyl. No alcohol abuse. Hx of IPLOC, multiple previous admissions for paranoia. Hx of DMH. In the ED, VPA was 34.4. Utox positive for fentanyl, salicylate level 6.3 (later decreased to <5.0), acetaminophen 2.? 10/29: Pt asks to be put back on thorazine, as she says this med helps with agitation and sleep. Will start 25 mg Q6H PRN. Pt has been non-adherent with psych meds prior to admission, will re-start home meds and monitor for benefit. 10/30: no change in regimen. less paranoid and more organized than yesterday. 10/31/2021: No changes to current treatment plan. Gradually improving and just restarted medications I spent minutes with the patient and/or on the patient floor today, greater than?50% of which was spent counseling/coordinating care. Reason for contiued inpatient stay Substantial Risk for: inability to function and rapid decompensation
[2021-10-31 17:39] LABS: Glucose, Whole Blood 123 mg/dL (60-115)
[2021-10-31 20:54] LABS: Glucose, Whole Blood 136 mg/dL (60-115)
[2021-10-31] MEDS: Gabapentin 100 MG CAPSULE PO (20:58)
[2021-10-31] MEDS: Divalproex Sodium ER 500 MG TAB.ER.24H PO (20:58)
[2021-10-31 21:00] VITALS: BP 131/72; PULSE 87; RESP 16; TEMP 36.6; O2SAT 94
--- NOTE | 2021-10-31 21:09 | PC.NURSE ---
Spoke with Clement the pharmacist. He stated that because patient's reaction to NSAID's is GI related he feels she should not have issues with the Aspercream for her hands.
[2021-10-31] MEDS: Trolamine Salicylate 10 % Cream 85 GM TUBE 1 APPL TOPICAL (21:52)
[2021-11-01 08:35] VITALS: BP 140/79; PULSE 86; RESP 16; TEMP 36.6; O2SAT 91
[2021-11-01 09:19] LABS: Glucose, Whole Blood 91 mg/dL (60-115)
[2021-11-01] MEDS: Lactulose 20 GM/30 ML SOLUTION PO (09:22)
[2021-11-01] MEDS: Torsemide 20 MG TABLET PO ×2 (09:23→16:35)
[2021-11-01] MEDS: Magnesium Oxide 400 MG TABLET PO ×2 (09:23→16:35)
[2021-11-01] MEDS: Folic Acid 1 MG TABLET PO (09:23)
[2021-11-01] MEDS: carvediloL 6.25 MG TABLET PO ×2 (09:23→21:57)
[2021-11-01] MEDS: Divalproex Sodium ER 250 MG TAB.ER.24H PO (09:23)
[2021-11-01] MEDS: Lipase/Prot/Amylase 24/76/120K 1 CAP CAPSULE.DR PO ×3 (09:24→17:44)
[2021-11-01] MEDS: Multivitamin TABLET 1 TAB PO (09:24)
[2021-11-01] MEDS: Benztropine Mesylate 0.5 MG TABLET PO ×2 (09:24→23:13)
[2021-11-01] MEDS: risperiDONE 1 MG TABLET PO ×2 (09:24→21:25)
[2021-11-01] MEDS: Omeprazole 20 MG CAPSULE.DR PO (09:24)
[2021-11-01] MEDS: Loratadine 10 MG TABLET PO (09:25)
[2021-11-01] MEDS: ARIPiprazole 10 MG TABLET PO (09:25)
[2021-11-01] MEDS: Insulin Glargine,Hum.rec.anlog 100 UNIT/ML 10 ML VIAL 16 UNIT SUBCUT (09:25)
[2021-11-01] MEDS: Gabapentin 100 MG CAPSULE PO (09:41)
--- NOTE | 2021-11-01 12:07 | HO.PSYCHPN ---
Subjective Subjective Date of Service: 11/01/21 Reason For Visit: Psychosis Interim History: Complaining of arm pain- attributes this to established arthritis. Started Aspercream yesterday (pharmacy involved ref topical and low allergy/GI risk of same). Not on scheduled tylenol. Feels gabapentin not helpful. no acute management issues. Less fearful and depressed. Denies suicidal thoughts. leep okay. Reports overall feeling safe here Medication Compliance: Yes Side effects from medications: No Attending Groups: No Review of Systems arthritis pain Mental Status Exam Mental Status Exam Narrative: In room. Pleasant. Denied depression. Less guarded. No SI/HI. Insight fair Diagnostics Vital Signs (24Hr): Vital Signs - 24 hr 10/31/21 21:00 11/01/21 08:35 Temperature 98 F 97.9 F Pulse Rate 87 86 Respiratory Rate 16 16 Blood Pressure 131/72 140/79 H Pulse Oximetry 94 91 L Oxygen Delivery Method Room Air Room Air BMI result Body Mass Index 24.3 Labs Results: 10/28/21 12:47 10/28/21 12:47 Labs: Laboratory Results - last 48 hr 10/30/21 10/30/21 10/30/21 11:40 17:03 20:16 POC Glucose 182 H 98 177 H COVID-19 ([facility]) COVID-19 Clin Com 10/30/21 10/31/21 10/31/21 21:35 09:24 12:47 POC Glucose 85 97 COVID-19 ([facility]) Negative COVID-19 Clin Com See Note 10/31/21 10/31/21 11/01/21 17:32 20:49 09:08 POC Glucose 123 H 136 H 91 COVID-19 ([facility]) COVID-19 Clin Com Medications Medications Current Medications Al Hydroxide/Mg Hydroxide (Magnesium Hydrox/Alum Hydrox 30 Ml Oral.Susp) 30 ml PO Q6H PRN PRN Reason: Heartburn/Nausea Lipase/Protease/Amylase (Lipase/Prot/Amylase 24/76/120k 1 Cap Capsule.) 1 cap PO TIDWM [facility] Last Admin: 11/01/21 09:24 Dose: 1 cap Aripiprazole (Aripiprazole 10 Mg Tablet) 10 mg PO DAILY [facility] Last Admin: 11/01/21 09:25 Dose: 10 mg Benztropine Mesylate (Benztropine Mesylate 0.5 Mg Tablet) 0.5 mg PO BID [facility] Last Admin: 11/01/21 09:24 Dose: 0.5 mg Carvedilol (Carvedilol 6.25 Mg Tablet) 6.25 mg PO BID [facility]; Protocol Last Admin: 11/01/21 09:23 Dose: 6.25 mg Chlorpromazine HCl (Chlorpromazine Hcl 25 Mg Tablet) 25 mg PO Q6H PRN PRN Reason: agitation, psychosis Last Admin: 10/29/21 23:09 Dose: 25 mg Divalproex Sodium (Divalproex Sodium Er 250 Mg Tab.Er.24h) 250 mg PO DAILY [facility] Last Admin: 11/01/21 09:23 Dose: 250 mg Divalproex Sodium (Divalproex Sodium Er 500 Mg Tab.Er.24h) 500 mg PO BEDTIME [facility] Last Admin: 10/31/21 20:58 Dose: 500 mg Folic Acid (Folic Acid 1 Mg Tablet) 1 mg PO DAILY [facility] Last Admin: 11/01/21 09:23 Dose: 1 mg Gabapentin (Gabapentin 100 Mg Capsule) 100 mg PO DAILY PRN PRN Reason: anxiety Last Admin: 11/01/21 09:41 Dose: 100 mg Guaifenesin/Dextromethorphan (Guaifenesin Dm 600/30 1 Tab Tab.Er.12h) 1 tab PO BID PRN PRN Reason: congestion Last Admin: 10/30/21 21:37 Dose: 1 tab Insulin Glargine (Insulin Glargine,Hum.Rec.Anlog 100 Unit/Ml 10 Ml Vial) 16 unit SUBCUT DAILY [facility] Last Admin: 11/01/21 09:25 Dose: 16 unit Insulin Human Lispro (Insulin Lispro 100 Unit/Ml 3 Ml Vial) 0 unit SUBCUT QIDACHS [facility]; Protocol Last Admin: 11/01/21 09:17 Dose: Not Given Lactulose (Lactulose 20 Gm/30 Ml Solution) 20 gm PO BID [facility] Last Admin: 11/01/21 09:22 Dose: 20 gm Loratadine (Loratadine 10 Mg Tablet) 10 mg PO DAILY [facility] Last Admin: 11/01/21 09:25 Dose: 10 mg Magnesium Hydroxide (Milk Of Magnesia 30 Ml Oral.Susp) 30 ml PO DAILY PRN PRN Reason: Constipation Magnesium Oxide (Magnesium Oxide 400 Mg [facility]t) [facility] Admin: 11/01/21 09:23 Dose: 400 mg Melatonin (Melatonin 3 Mg Tablet) 3 mg PO BEDTIME PRN PRN Reason: insomnia Last Admin: 10/29/21 23:11 Dose: 3 mg Multivitamins/Vitamin C (Multivitamin Tablet) 1 tab PO DAILY [facility] Last Admin: 11/01/21 09:24 Dose: 1 tab Nicotine (Nicotine 21 Mg Patch.Td24) 21 mg TRANSDERMA DAILY [facility] Last Admin: 11/01/21 10:44 Dose: Not Given Nicotine Polacrilex (Nicotine Polacrilex 2 Mg Gum) 2 mg BUCCAL QID PRN PRN Reason: Nicotine Cravings Last Admin: 10/31/21 19:36 Dose: 2 mg Omeprazole (Omeprazole 20 Mg Capsule.Dr) 20 mg PO DAILY@0630 [facility] Last Admin: 11/01/21 09:24 Dose: 20 mg Risperidone (Risperidone 1 Mg Tablet) 1 mg PO BID [facility] Last Admin: 11/01/21 09:24 Dose: 1 mg Torsemide (Torsemide 20 Mg Tablet) 20 mg PO BIDWM [facility]; Protocol Last Admin: 11/01/21 09:23 Dose: 20 mg Trazodone HCl (Trazodone Hcl 50 Mg Tablet) 50 mg PO BEDTIME PRN PRN Reason: Insomnia Last Admin: 10/29/21 23:09 Dose: 50 mg Trolamine Salicylate (Trolamine Salicylate 10 % Cream 85 Gm Tube) 1 appl TOPICAL TID PRN; Protocol PRN Reason: Pain, Mild (Pain Scale 1-3) Last Admin: 10/31/21 21:52 Dose: 1 appl Allergies Allergies Allergy/AdvReac Type Severity Reaction Status Date / Time olanzapine [From Zyprexa] Allergy Unknown Verified 09/03/21 14:49 prednisone Allergy Unknown Verified 09/03/21 14:49 NSAIDS (Non-Steroidal AdvReac Mild Abdominal Verified 09/03/21 14:49 Anti-Inflamma Pain Assessment & Plan Assessment & Plan (1) Schizophrenia, chronic condition: Status: Acute Code(s): F20.9 - Schizophrenia, unspecified Plan Bharti is a 55 y.o. Female who carries a dx of schizophrenia. She [place] [facility] [place]21 due to psychosis, disorganized and decompensated. Recent [place] [facility] [place] for decompensation in psychosis in context of recent hospitalization for pneumnonia superimposed on CHF. Utox negative except for fentanyl. No alcohol abuse. Hx of IPLOC, multiple previous admissions for paranoia. Hx of DMH. In the ED, VPA was 34.4. Utox positive for fentanyl, salicylate level 6.3 (later decreased to <5.0), acetaminophen 2.? 10/29: Pt asks to be put back on thorazine, as she says this med helps with agitation and sleep. Will start 25 mg Q6H PRN. Pt has been non-adherent with psych meds prior to admission, will re-start home meds and monitor for benefit. 10/30: no change in regimen. less paranoid and more organized than yesterday. 10/31/2021: No changes to current treatment plan. Gradually improving and just restarted medications 11/01: Arthritis pain- Started Aspercream yesterday. Not on scheduled tylenol (will schedule). Feels gabapentin not helpful. I spent minutes with the patient and/or on the patient floor today, greater than?50% of which was spent counseling/coordinating care. Reason for contiued inpatient stay Substantial Risk for: inability to function
[2021-11-01 12:22] LABS: Glucose, Whole Blood 150 mg/dL (60-115)
[2021-11-01] MEDS: Nicotine Polacrilex 2 MG GUM BUCCAL ×2 (12:22→16:14)
[2021-11-01] MEDS: Acetaminophen 325 MG TABLET 650 MG PO ×2 (15:53→21:25)
[2021-11-01] MEDS: Nicotine 21 MG PATCH.TD24 TRANSDERMA (16:14)
[2021-11-01] MEDS: Trolamine Salicylate 10 % Cream 85 GM TUBE 1 APPL TOPICAL (16:18)
[2021-11-01 16:30] VITALS: BP 164/90; BP 193/105
[2021-11-01 17:53] LABS: Glucose, Whole Blood 85 mg/dL (60-115)
[2021-11-01 18:45] VITALS: BP 180/106; BP 190/112; PULSE 78; RESP 16; TEMP 36.1; O2SAT 97
[2021-11-01 21:03] LABS: Glucose, Whole Blood 189 mg/dL (60-115)
[2021-11-01] MEDS: Divalproex Sodium ER 500 MG TAB.ER.24H PO (21:25)
[2021-11-01] MEDS: Insulin Lispro 100 UNIT/ML 3 ML VIAL SUBCUT (21:29)
[2021-11-02] MEDS: Trolamine Salicylate 10 % Cream 85 GM TUBE 1 APPL TOPICAL ×3 (02:34→22:21)
[2021-11-02 08:30] VITALS: BP 135/87; PULSE 82; TEMP 36.6; O2SAT 92
[2021-11-02 08:36] LABS: Glucose, Whole Blood 120 mg/dL (60-115)
[2021-11-02] MEDS: Acetaminophen 325 MG TABLET 650 MG PO ×3 (08:44→21:56)
[2021-11-02] MEDS: Torsemide 20 MG TABLET PO ×2 (08:45→18:09)
[2021-11-02] MEDS: Multivitamin TABLET 1 TAB PO (08:45)
[2021-11-02] MEDS: Divalproex Sodium ER 250 MG TAB.ER.24H PO (08:45)
[2021-11-02] MEDS: Folic Acid 1 MG TABLET PO (08:45)
[2021-11-02] MEDS: Magnesium Oxide 400 MG TABLET PO ×2 (08:46→18:10)
[2021-11-02] MEDS: Lipase/Prot/Amylase 24/76/120K 1 CAP CAPSULE.DR PO ×3 (08:46→18:10)
[2021-11-02] MEDS: carvediloL 6.25 MG TABLET PO ×2 (08:46→21:56)
[2021-11-02] MEDS: Omeprazole 20 MG CAPSULE.DR PO (08:46)
[2021-11-02] MEDS: Benztropine Mesylate 0.5 MG TABLET PO ×2 (08:47→21:56)
[2021-11-02] MEDS: Loratadine 10 MG TABLET PO (08:47)
[2021-11-02] MEDS: ARIPiprazole 10 MG TABLET PO (08:47)
[2021-11-02] MEDS: risperiDONE 1 MG TABLET PO ×2 (08:47→21:56)
[2021-11-02] MEDS: Insulin Glargine,Hum.rec.anlog 100 UNIT/ML 10 ML VIAL 16 UNIT SUBCUT (08:48)
[2021-11-02] MEDS: Lactulose 20 GM/30 ML SOLUTION PO (08:48)
--- NOTE | 2021-11-02 11:25 | P.PNPSI_ITS ---
Subjective Subjective Date of Service: 11/02/21 Reason For Visit: Psychosis Subjective Notes: Conditional Voluntary Interim History: Pt reports she is here due to SI, post SI on medications. Pt reports she feels slightly less hopeless but not sure what has helped. She is well groomed, and states that she has to care for herself, which she feels she has neglected herself. She denies SI/HI. She denies VH/AH. Pt report pain s/s to arthritis. Medication Compliance: Yes Side effects from medications: No Attending Groups: Yes Review of Systems Acute medical concerns: No Review of Systems Review of Systems guarded. Self-care okay. Affect flat. No SI. No HI. Some paranoia. No hallucinations. No agitation. Insight and judgment improving Yes all other systems are reviewed and are negative Mental Status Exam Mental Status Exam Narrative: Appearance: casually groomed, fair hygiene in NAD Behavior:cooperative psychomotor: no agitation or retardation noted Speech:clear, normal rate/rhythm/volume, spontaneous Thought process:mostly linear Thought content:pain due to arthritis, more hopeful Mood: better Affect: brightens at times SI:denies HI:none VH/AH:none Delusions:no overt reported or noted Insight/judgment:fair x 2. Memory/cog: alert, oriented x 3. not formally tested. Diagnostics Vital Signs (24Hr): Vital Signs - 24 hr 11/01/21 16:30 11/01/21 16:30 11/01/21 18:45 Temperature 97 F Pulse Rate 78 Respiratory Rate 16 Blood Pressure 193/105 H 164/90 H 190/112 H Pulse Oximetry 97 Oxygen Delivery Method Room Air 11/01/21 18:45 11/02/21 08:30 Temperature 97.8 F Pulse Rate 82 Respiratory Rate Blood Pressure 180/106 H 135/87 Pulse Oximetry 92 Oxygen Delivery Method Room Air BMI result Body Mass Index 24.3 Labs Results: 10/28/21 12:47 10/28/21 12:47 Labs: Laboratory Results - last 48 hr 10/31/21 10/31/21 11/01/21 17:32 20:49 09:08 POC Glucose 123 H 136 H 91 11/01/21 11/01/21 11/01/21 12:18 17:41 20:43 POC Glucose 150 H 85 189 H 11/02/21 11/02/21 08:30 13:05 POC Glucose 120 H 124 H Medications Medications Current Medications Acetaminophen (Acetaminophen 325 Mg Tablet) 650 mg PO TID [facility] Last Admin: 11/02/21 08:44 Dose: 650 mg Al Hydroxide/Mg Hydroxide (Magnesium Hydrox/Alum Hydrox 30 Ml Oral.Susp) 30 ml PO Q6H PRN PRN Reason: Heartburn/Nausea Lipase/Protease/Amylase (Lipase/Prot/Amylase 24/76/120k 1 Cap Capsule.Dr) 1 cap PO TIDWM [facility] Last Admin: 11/02/21 13:10 Dose: 1 cap Aripiprazole (Aripiprazole 10 Mg Tablet) 10 mg PO DAILY [facility] Last Admin: 11/02/21 08:47 Dose: 10 mg Benztropine Mesylate (Benztropine Mesylate 0.5 Mg Tablet) 0.5 mg PO BID [facility] Last Admin: 11/02/21 08:47 Dose: 0.5 mg Carvedilol (Carvedilol 6.25 Mg Tablet) 6.25 mg PO BID [facility]; Protocol Last Admin: 11/02/21 08:46 Dose: 6.25 mg Chlorpromazine HCl (Chlorpromazine Hcl 25 Mg Tablet) 25 mg PO Q6H PRN PRN Reason: agitation, psychosis Last Admin: 10/29/21 23:09 Dose: 25 mg Divalproex Sodium (Divalproex Sodium Er 250 Mg Tab.Er.24h) 250 mg PO DAILY [facility] Last Admin: 11/02/21 08:45 Dose: 250 mg Divalproex Sodium (Divalproex Sodium Er 500 Mg Tab.Er.24h) 500 mg PO BEDTIME [facility] Last Admin: 11/01/21 21:25 Dose: 500 mg Folic Acid (Folic Acid 1 Mg Tablet) 1 mg PO DAILY [facility] Last Admin: 11/02/21 08:45 Dose: 1 mg Gabapentin (Gabapentin 100 Mg Capsule) 100 mg PO DAILY PRN PRN Reason: anxiety Last Admin: 11/01/21 09:41 Dose: 100 mg Guaifenesin/Dextromethorphan (Guaifenesin Dm 600/30 1 Tab Tab.Er.12h) 1 tab PO BID PRN PRN Reason: congestion Last Admin: 10/30/21 21:37 Dose: 1 tab Insulin Glargine (Insulin Glargine,Hum.Rec.Anlog 100 Unit/Ml 10 Ml Vial) 16 unit SUBCUT DAILY [facility] Last Admin: 11/02/21 08:48 Dose: 16 unit Insulin Human Lispro (Insulin Lispro 100 Unit/Ml 3 Ml Vial) 0 unit SUBCUT QIDACHS [facility]; Protocol Last Admin: 11/02/21 13:08 Dose: Not Given Lactulose (Lactulose 20 Gm/30 Ml Solution) 20 gm PO BID [facility] Last Admin: 11/02/21 08:48 Dose: 20 gm Loratadine (Loratadine 10 Mg Tablet) 10 mg PO DAILY [facility] Last Admin: 11/02/21 08:47 Dose: 10 mg Magnesium Hydroxide (Milk Of Magnesia 30 Ml Oral.Susp) 30 ml PO DAILY PRN PRN Reason: Constipation Magnesium Oxide (Magnesium Oxide 400 Mg Tablet) 400 mg PO BIDPC [facility] Last Admin: 11/02/21 08:46 Dose: 400 mg Melatonin (Melatonin 3 Mg Tablet) 3 mg PO BEDTIME PRN PRN Reason: insomnia Last Admin: 10/29/21 23:11 Dose: 3 mg Multivitamins/Vitamin C (Multivitamin Tablet) 1 tab PO DAILY [facility] Last Admin: 11/02/21 08:45 Dose: 1 tab Nicotine (Nicotine 21 Mg Patch.Td24) 21 mg TRANSDERMA DAILY [facility] Last Admin: 11/02/21 09:00 Dose: Not Given Nicotine Polacrilex (Nicotine Polacrilex 2 Mg Gum) 2 mg BUCCAL QID PRN PRN Reason: Nicotine Cravings Last Admin: 11/01/21 16:14 Dose: 2 mg Omeprazole (Omeprazole 20 Mg Capsule.Dr) 20 mg PO DAILY@0630 [facility] Last Admin: 11/02/21 08:46 Dose: 20 mg Risperidone (Risperidone 1 Mg Tablet) 1 mg PO BID [facility] Last Admin: 11/02/21 08:47 Dose: 1 mg Torsemide (Torsemide 20 Mg Tablet) 20 mg PO BIDWM [facility]; Protocol Last Admin: 11/02/21 08:45 Dose: 20 mg Trazodone HCl (Trazodone Hcl 50 Mg Tablet) 50 mg PO BEDTIME PRN PRN Reason: Insomnia Last Admin: 10/29/21 23:09 Dose: 50 mg Trolamine Salicylate (Trolamine Salicylate 10 % Cream 85 Gm Tube) 1 appl T OPICAL TID PRN; Protocol PRN Reason: Pain, Mild (Pain Scale 1-3) Last Admin: 11/02/21 02:34 Dose: 1 appl Allergies Allergies Allergy/AdvReac Type Severity Reaction Status Date / Time olanzapine [From Zyprexa] Allergy Unknown Verified 09/03/21 14:49 prednisone Allergy Unknown Verified 09/03/21 14:49 NSAIDS (Non-Steroidal AdvReac Mild Abdominal Verified 09/03/21 14:49 Anti-Inflamma Pain Assessment & Plan Assessment & Plan (1) Schizophrenia, chronic condition: Status: Acute Code(s): F20.9 - Schizophrenia, unspecified Plan Bharti is a 55 y.o. Female who carries a dx of schizophrenia. She presented to [facility] [place] [place] [facility] on 10/28/2021 due to psychosis, disorganized and decompensated. Recent discharge from [facility] [place] [facility] in 08/2021 for decompensation in psychosis in context of recent hospitalization for pneumnonia superimposed on CHF. Utox negative except for fentanyl. No alcohol abuse. Hx of IPLOC, multiple previous admissions for paranoia. Hx of DMH. In the ED, VPA was 34.4. Utox positive for fentanyl, salicylate level 6.3 (later decreased to <5.0), acetaminophen 2.? 10/29: Pt asks to be put back on thorazine, as she says this med helps with agitation and sleep. Will start 25 mg Q6H PRN. Pt has been non-adherent with psych meds prior to admission, will re-start home meds and monitor for benefit. 10/30: no change in regimen. less paranoid and more organized than yesterday. 10/31/2021: No changes to current treatment plan. Gradually improving and just restarted medications 11/01: Arthritis pain- Started Aspercream yesterday. Not on scheduled tylenol (will schedule). Feels gabapentin not helpful. 11/02 continue current medications. I spent minutes with the patient and/or on the patient floor today, greater than?50% of which was spent counseling/coordinating care. Reason for contiued inpatient stay Substantial Risk for: inability to function
[2021-11-02 13:09] LABS: Glucose, Whole Blood 124 mg/dL (60-115)
[2021-11-02] MEDS: Nicotine 21 MG PATCH.TD24 TRANSDERMA (15:52)
[2021-11-02] MEDS: Nicotine Polacrilex 2 MG GUM BUCCAL (16:10)
[2021-11-02 17:41] LABS: Glucose, Whole Blood 185 mg/dL (60-115)
[2021-11-02] MEDS: Insulin Lispro 100 UNIT/ML 3 ML VIAL SUBCUT (18:10)
[2021-11-02 21:53] LABS: Glucose, Whole Blood 114 mg/dL (60-115)
[2021-11-02] MEDS: Divalproex Sodium ER 500 MG TAB.ER.24H PO (21:56)
[2021-11-02 22:01] VITALS: BP 212/117; PULSE 73; RESP 18; TEMP 36.3; O2SAT 96
[2021-11-02] MEDS: cloNIDine HCL 0.1 MG TABLET PO (22:20)
[2021-11-03 08:30] VITALS: BP 122/82; PULSE 76; RESP 18; TEMP 36.4; O2SAT 94
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
[2021-11-03 08:36] LABS: Glucose, Whole Blood 105 mg/dL (60-115)
[2021-11-03] MEDS: Nicotine 21 MG PATCH.TD24 TRANSDERMA (09:30)
[2021-11-03] MEDS: Insulin Glargine,Hum.rec.anlog 100 UNIT/ML 10 ML VIAL 16 UNIT SUBCUT (09:30)
[2021-11-03] MEDS: Folic Acid 1 MG TABLET PO (09:31)
[2021-11-03] MEDS: Multivitamin TABLET 1 TAB PO (09:31)
[2021-11-03] MEDS: Lipase/Prot/Amylase 24/76/120K 1 CAP CAPSULE.DR PO ×3 (09:31→17:52)
[2021-11-03] MEDS: Omeprazole 20 MG CAPSULE.DR PO (09:31)
[2021-11-03] MEDS: Acetaminophen 325 MG TABLET 650 MG PO ×3 (09:31→21:13)
[2021-11-03] MEDS: Torsemide 20 MG TABLET PO ×2 (09:32→17:51)
[2021-11-03] MEDS: carvediloL 6.25 MG TABLET PO ×2 (09:32→21:12)
[2021-11-03] MEDS: Magnesium Oxide 400 MG TABLET PO ×2 (09:32→17:51)
[2021-11-03] MEDS: Divalproex Sodium ER 250 MG TAB.ER.24H PO (09:32)
[2021-11-03] MEDS: Lactulose 20 GM/30 ML SOLUTION PO ×2 (09:33→21:14)
[2021-11-03] MEDS: ARIPiprazole 10 MG TABLET PO (09:33)
[2021-11-03] MEDS: Benztropine Mesylate 0.5 MG TABLET PO ×2 (09:33→21:13)
[2021-11-03] MEDS: Loratadine 10 MG TABLET PO (09:33)
[2021-11-03] MEDS: risperiDONE 1 MG TABLET PO ×2 (09:33→21:13)
[2021-11-03] MEDS: Nicotine Polacrilex 2 MG GUM BUCCAL ×3 (10:16→19:58)
[2021-11-03 12:53] LABS: Glucose, Whole Blood 146 mg/dL (60-115)
[2021-11-03] MEDS: Trolamine Salicylate 10 % Cream 85 GM TUBE 1 APPL TOPICAL (16:28)
[2021-11-03 17:32] LABS: Glucose, Whole Blood 195 mg/dL (60-115)
[2021-11-03] MEDS: Insulin Lispro 100 UNIT/ML 3 ML VIAL SUBCUT ×2 (17:51→21:15)
[2021-11-03] MEDS: Gabapentin 100 MG CAPSULE PO (20:02)
[2021-11-03 21:10] VITALS: BP 148/81; PULSE 79; RESP 18; TEMP 36.3; O2SAT 94
[2021-11-03] MEDS: Divalproex Sodium ER 500 MG TAB.ER.24H PO (21:13)
[2021-11-03 21:14] LABS: Glucose, Whole Blood 193 mg/dL (60-115)
[2021-11-03] MEDS: Magnesium Hydrox/Alum Hydrox 30 ML ORAL.SUSP PO (23:49)
[2021-11-04 08:20] VITALS: BP 168/89; PULSE 83; RESP 18; TEMP 36.6; O2SAT 98
[2021-11-04 08:29] LABS: Glucose, Whole Blood 117 mg/dL (60-115)
[2021-11-04] MEDS: Lactulose 20 GM/30 ML SOLUTION PO (08:31)
[2021-11-04] MEDS: Nicotine 21 MG PATCH.TD24 TRANSDERMA (08:32)
[2021-11-04] MEDS: risperiDONE 1 MG TABLET PO (08:33)
[2021-11-04] MEDS: Acetaminophen 325 MG TABLET 650 MG PO ×3 (08:33→20:09)
[2021-11-04] MEDS: Insulin Glargine,Hum.rec.anlog 100 UNIT/ML 10 ML VIAL 16 UNIT SUBCUT (08:33)
[2021-11-04] MEDS: Lipase/Prot/Amylase 24/76/120K 1 CAP CAPSULE.DR PO ×3 (08:33→18:12)
[2021-11-04] MEDS: ARIPiprazole 10 MG TABLET PO (08:33)
[2021-11-04] MEDS: Loratadine 10 MG TABLET PO (08:33)
[2021-11-04] MEDS: Multivitamin TABLET 1 TAB PO (08:34)
[2021-11-04] MEDS: Torsemide 20 MG TABLET PO ×2 (08:34→16:57)
[2021-11-04] MEDS: Benztropine Mesylate 0.5 MG TABLET PO ×2 (08:34→20:09)
[2021-11-04] MEDS: Omeprazole 20 MG CAPSULE.DR PO (08:34)
[2021-11-04] MEDS: carvediloL 6.25 MG TABLET PO ×2 (08:34→20:09)
[2021-11-04] MEDS: Folic Acid 1 MG TABLET PO (08:34)
[2021-11-04] MEDS: Magnesium Oxide 400 MG TABLET PO ×2 (08:34→16:57)
[2021-11-04] MEDS: Divalproex Sodium ER 250 MG TAB.ER.24H PO (08:34)
--- NOTE | 2021-11-04 10:00 | P.PNPSI_ITS ---
Subjective Subjective Date of Service: 11/04/21 Reason For Visit: Psychosis Subjective Notes: Conditional Voluntary Interim History: Pt staring at door, has been presenting as more withdrawn. She reports some degree of confusion. She reports not feeling safe to return home, wants to be at a safer place and accepting of additional supports in the community. She denies SI/HI. Some suspiciousness towards providers as well, stating she would like to change PCP she has had for decades. No overt AH/VH. Medication Compliance: Yes Side effects from medications: No Attending Groups: No Review of Systems Acute medical concerns: No Review of Systems Review of Systems guarded. Self-care okay. Affect flat. No SI. No HI. Some paranoia. No hallucinations. No agitation. Insight and judgment improving Yes all other systems are reviewed and are negative Mental Status Exam Mental Status Exam Narrative: Appearance: casually groomed, fair hygiene in NAD Behavior:cooperative psychomotor: no agitation or retardation noted Speech:clear, normal rate/rhythm/volume, spontaneous Thought process:mostly linear Thought content:pain due to arthritis, more hopeful Mood: better Affect: brightens at times SI:denies HI:none VH/AH:none Delusions:no overt reported or noted Insight/judgment:fair x 2. Memory/cog: alert, oriented x 3. not formally tested. Diagnostics Vital Signs (24Hr): Vital Signs - 24 hr 11/03/21 21:10 Temperature 97.4 F Pulse Rate 79 Respiratory Rate 18 Blood Pressure 148/81 H Pulse Oximetry 94 Oxygen Delivery Method Room Air BMI result Body Mass Index 24.3 Labs Results: 10/28/21 12:47 10/28/21 12:47 Labs: Laboratory Results - last 48 hr 11/02/21 11/02/21 11/02/21 13:05 17:36 21:47 POC Glucose 124 H 185 H 114 11/03/21 11/03/21 11/03/21 08:13 12:40 17:15 POC Glucose 105 146 H 195 H 11/03/21 11/04/21 20:57 08:23 POC Glucose 193 H 117 H Medications Medications Current Medications Acetaminophen (Acetaminophen 325 Mg Tablet) 650 mg PO TID [facility] Last Admin: 11/04/21 08:33 Dose: 650 mg Al Hydroxide/Mg Hydroxide (Magnesium Hydrox/Alum Hydrox 30 Ml Oral.Susp) 30 ml PO Q6H PRN PRN Reason: Heartburn/Nausea Last Admin: 11/03/21 23:49 Dose: 30 ml Lipase/Protease/Amylase (Lipase/Prot/Amylase 24/76/120k 1 Cap Capsule.Dr) 1 cap PO TIDWM [facility] Last Admin: 11/04/21 08:33 Dose: 1 cap Benztropine Mesylate (Benztropine Mesylate 0.5 Mg Tablet) 0.5 mg PO BID [facility] Last Admin: 11/04/21 08:34 Dose: 0.5 mg Carvedilol (Carvedilol 6.25 Mg Tablet) 6.25 mg PO BID [facility]; Protocol Last Admin: 11/04/21 08:34 Dose: 6.25 mg Chlorpromazine HCl (Chlorpromazine Hcl 25 Mg Tablet) 25 mg PO Q6H PRN PRN Reason: agitation, psychosis Last Admin: 10/29/21 23:09 Dose: 25 mg Clonidine HCl (Clonidine Hcl 0.1 Mg Tablet) 0.1 mg PO BID PRN; Protocol PRN Reason: hyperarousa; Last Admin: 11/02/21 22:20 Dose: 0.1 mg Divalproex Sodium (Divalproex Sodium Er 250 Mg Tab.Er.24h) 250 mg PO DAILY [facility] Last Admin: 11/04/21 08:34 Dose: 250 mg Divalproex Sodium (Divalproex Sodium Er 500 Mg Tab.Er.24h) 500 mg PO BEDTIME [facility] Last Admin: 11/03/21 21:13 Dose: 500 mg Folic Acid (Folic Acid 1 Mg Tablet) 1 mg PO DAILY [facility] Last Admin: 11/04/21 08:34 Dose: 1 mg Gabapentin (Gabapentin 100 Mg Capsule) 100 mg PO DAILY PRN PRN Reason: anxiety Last Admin: 11/03/21 20:02 Dose: 100 mg Guaifenesin/Dextromethorphan (Guaifenesin Dm 600/30 1 Tab Tab.Er.12h) 1 tab PO BID PRN PRN Reason: congestion Last Admin: 10/30/21 21:37 Dose: 1 tab Insulin Glargine (Insulin Glargine,Hum.Rec.Anlog 100 Unit/Ml 10 Ml Vial) 16 unit SUBCUT DAILY [facility] Last Admin: 11/04/21 08:33 Dose: 16 unit Insulin Human Lispro (Insulin Lispro 100 Unit/Ml 3 Ml Vial) 0 unit SUBCUT QIDACHS [facility]; Protocol Last Admin: 11/04/21 08:34 Dose: Not Given Lactulose (Lactulose 20 Gm/30 Ml Solution) 20 gm PO BID [facility] Last Admin: 11/04/21 08:31 Dose: 20 gm Loratadine (Loratadine 10 Mg Tablet) 10 mg PO DAILY [facility] Last Admin: 11/04/21 08:33 Dose: 10 mg Magnesium Hydroxide (Milk Of Magnesia 30 Ml Oral.Susp) 30 ml PO DAILY PRN PRN Reason: Constipation Magnesium Oxide (Magnesium Oxide 400 Mg Tablet) 400 mg PO BIDPC [facility] Last Admin: 11/04/21 08:34 Dose: 400 mg Melatonin (Melatonin 3 Mg Tablet) 3 mg PO BEDTIME PRN PRN Reason: insomnia Last Admin: 10/29/21 23:11 Dose: 3 mg Multivitamins/Vitamin C (Multivitamin Tablet) 1 tab PO DAILY [facility] Last Admin: 11/04/21 08:34 Dose: 1 tab Nicotine (Nicotine 21 Mg Patch.Td24) 21 mg TRANSDERMA DAILY [facility] Last Admin: 11/04/21 08:32 Dose: 21 mg Nicotine Polacrilex (Nicotine Polacrilex 2 Mg Gum) 2 mg BUCCAL Q2H PRN PRN Reason: Nicotine Cravings Last Admin: 11/03/21 19:58 Dose: 2 mg Omeprazole (Omeprazole 20 Mg Capsule.Dr) 20 mg PO DAILY@0630 [facility] Last Admin: 11/04/21 08:34 Dose: 20 mg Risperidone (Risperidone 1 Mg Tablet) 1 mg PO BID [facility] Last Admin: 11/04/21 08:33 Dose: 1 mg Torsemide (Torsemide 20 Mg Tablet) 20 mg PO BIDWM [facility]; Protocol Last Admin: 11/04/21 08:34 Dose: 20 mg Trazodone HCl (Trazodone Hcl 50 Mg Tablet) 50 mg PO BEDTIME PRN PRN Reason: Insomnia Last Admin: 10/29/21 23:09 Dose: 50 mg Trolamine Salicylate (Trolamine Salicylate 10 % Cream 85 Gm Tube) 1 appl TOPICAL TID PRN; Protocol PRN Reason: Pain, Mild (Pain Scale 1-3) Last Admin: 11/03/21 16:28 Dose: 1 appl Allergies Allergies Allergy/AdvReac Type Severity Reaction Status Date / Time olanzapine [From Zyprexa] Allergy Unknown Verified 09/03/21 14:49 prednisone Allergy Unknown Verified 09/03/21 14:49 NSAIDS (Non-Steroidal AdvReac Mild Abdominal Verified 09/03/21 14:49 Anti-Inflamma Pain Assessment & Plan Assessment & Plan (1) Schizophrenia, chronic condition: Status: Acute Code(s): F20.9 - Schizophrenia, unspecified Plan Bharti is a 55 y.o. Female who carries a dx of schizophrenia. She presented to [place] ED on 10/28/2021 due to psychosis, disorganized and decompensated. Recent discharge from [facility] in 08/2021 for decompensation in psychosis in context of recent hospitalization for pneumnonia superimposed on CHF. Utox negative except for fentanyl. No alcohol abuse. Hx of IPLOC, multiple previous admissions for paranoia. Hx of DMH. In the ED, VPA was 34.4. Utox positive for fentanyl, salicylate level 6.3 (later decreased to <5.0), acetaminophen 2.? 10/29: Pt asks to be put back on thorazine, as she says this med helps with agitation and sleep. Will start 25 mg Q6H PRN. Pt has been non-adherent with psych meds prior to admission, will re-start home meds and monitor for benefit. 10/30: no change in regimen. less paranoid and more organized than yesterday. 10/31/2021: No changes to current treatment plan. Gradually improving and just restarted medications 11/01: Arthritis pain- Started Aspercream yesterday. Not on scheduled tylenol (will schedule). Feels gabapentin not helpful. 11/02 continue current medications. 11/03 continue current medications. 11/04- pt with several medical conditions ranging from CDK, liver cirrhosis, qtc prolongation which limits options in terms of medications. Will increase risperidone to 1mg po daily and 2mg po qhs- monitor closely Qtc with each increase of medications. Will d/c abilify- d/c depakote hx of hyper ammonia I spent minutes with the patient and/or on the patient floor today, greater than?50% of which was spent counseling/coordinating care. Reason for contiued inpatient stay Substantial Risk for: inability to function
[2021-11-04 10:26] LABS: Ammonia 28 umol/L (13-55)
[2021-11-04] MEDS: Nicotine Polacrilex 2 MG GUM BUCCAL ×3 (10:58→20:10)
[2021-11-04 12:54] LABS: Glucose, Whole Blood 129 mg/dL (60-115)
--- NOTE | 2021-11-04 15:44 | PC.NURSE ---
On 11/01/2021 at 2200, recheck of pt's BP was 127/61.
[2021-11-04] MEDS: Trolamine Salicylate 10 % Cream 85 GM TUBE 1 APPL TOPICAL (17:03)
[2021-11-04 17:49] LABS: Glucose, Whole Blood 189 mg/dL (60-115)
[2021-11-04] MEDS: Insulin Lispro 100 UNIT/ML 3 ML VIAL SUBCUT (17:54)
[2021-11-04 19:20] VITALS: BP 189/97; PULSE 81; RESP 16; TEMP 36.4; O2SAT 95
[2021-11-04] MEDS: risperiDONE 2 MG TABLET PO (20:09)
[2021-11-04 22:10] LABS: Glucose, Whole Blood 121 mg/dL (60-115)
[2021-11-05 06:39] LABS: Glucose, Whole Blood 115 mg/dL (60-115)
[2021-11-05 07:00] VITALS: BMI 29.7
--- NOTE | 2021-11-05 08:00 | ECG_ITS ---
Test Reason : qtc Blood Pressure : / mmHG Vent. Rate : 081 BPM Atrial Rate : 081 BPM P-R Int : 196 ms QRS Dur : 102 ms QT Int : 406 ms P-R-T Axes : 034 053 063 degrees QTc Int : 471 ms Normal sinus rhythm Nonspecific T wave abnormality Abnormal ECG When compared with ECG of 28-OCT-2021 14:55, T wave inversion no longer evident in Anterior leads Nonspecific T wave abnormality now evident in Lateral leads Referred By: Aubree Krishnamurthy Electronically Signed By:KARTHIKEYAN ARREGUIN
[2021-11-05 08:53] VITALS: BP 159/85; PULSE 84; RESP 18; TEMP 36.1; O2SAT 94
[2021-11-05] MEDS: Omeprazole 20 MG CAPSULE.DR PO (08:54)
[2021-11-05] MEDS: Torsemide 20 MG TABLET PO ×2 (08:54→17:32)
[2021-11-05] MEDS: Lipase/Prot/Amylase 24/76/120K 1 CAP CAPSULE.DR PO ×3 (08:54→17:17)
[2021-11-05] MEDS: Magnesium Oxide 400 MG TABLET PO ×2 (08:54→17:17)
[2021-11-05] MEDS: Folic Acid 1 MG TABLET PO (08:55)
[2021-11-05] MEDS: carvediloL 6.25 MG TABLET PO ×2 (08:55→20:21)
[2021-11-05] MEDS: Benztropine Mesylate 0.5 MG TABLET PO ×2 (08:55→20:21)
[2021-11-05] MEDS: Loratadine 10 MG TABLET PO (08:55)
[2021-11-05] MEDS: Acetaminophen 325 MG TABLET 650 MG PO ×3 (08:55→20:20)
[2021-11-05] MEDS: Multivitamin TABLET 1 TAB PO (08:56)
[2021-11-05] MEDS: risperiDONE 1 MG TABLET PO (08:56)
[2021-11-05] MEDS: Insulin Glargine,Hum.rec.anlog 100 UNIT/ML 10 ML VIAL 16 UNIT SUBCUT (09:03)
[2021-11-05] MEDS: Nicotine 21 MG PATCH.TD24 TRANSDERMA (09:06)
[2021-11-05 12:07] LABS: Glucose, Whole Blood 230 mg/dL (60-115)
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
[2021-11-05] MEDS: Insulin Lispro 100 UNIT/ML 3 ML VIAL SUBCUT ×2 (13:04→20:27)
[2021-11-05] MEDS: Nicotine Polacrilex 2 MG GUM BUCCAL ×2 (14:13→20:30)
[2021-11-05 17:28] LABS: Glucose, Whole Blood 99 mg/dL (60-115)
[2021-11-05] MEDS: chlorproMAZINE HCl 25 MG TABLET PO (17:28)
[2021-11-05 20:15] VITALS: BP 163/100; PULSE 89; RESP 18; TEMP 36.6; O2SAT 97
[2021-11-05] MEDS: risperiDONE 2 MG TABLET PO (20:21)
[2021-11-05 20:27] LABS: Glucose, Whole Blood 194 mg/dL (60-115)
[2021-11-05] MEDS: Milk of Magnesia 30 ML ORAL.SUSP PO (23:30)
--- NOTE | 2021-11-06 06:00 | PC.NURSE ---
incontinent of feces-may be the results of being given MOM last evening. clothing and person washed. bed linen changed by staff
[2021-11-06] MEDS: Omeprazole 20 MG CAPSULE.DR PO (06:20)
[2021-11-06] MEDS: Nicotine Polacrilex 2 MG GUM BUCCAL ×3 (06:24→15:38)
[2021-11-06] MEDS: Magnesium Hydrox/Alum Hydrox 30 ML ORAL.SUSP PO (07:09)
[2021-11-06 08:31] LABS: Glucose, Whole Blood 108 mg/dL (60-115)
[2021-11-06 09:00] VITALS: BP 196/102; PULSE 96; RESP 16; TEMP 36.9; O2SAT 97
[2021-11-06] MEDS: carvediloL 6.25 MG TABLET PO ×2 (09:05→22:09)
[2021-11-06] MEDS: Acetaminophen 325 MG TABLET 650 MG PO ×3 (09:05→21:34)
[2021-11-06] MEDS: Benztropine Mesylate 0.5 MG TABLET PO ×2 (09:06→21:34)
[2021-11-06] MEDS: Multivitamin TABLET 1 TAB PO (09:06)
[2021-11-06] MEDS: Torsemide 20 MG TABLET PO ×2 (09:06→18:29)
[2021-11-06] MEDS: Lipase/Prot/Amylase 24/76/120K 1 CAP CAPSULE.DR PO ×3 (09:06→18:29)
[2021-11-06] MEDS: Magnesium Oxide 400 MG TABLET PO ×2 (09:06→18:29)
[2021-11-06] MEDS: risperiDONE 1 MG TABLET PO (09:06)
[2021-11-06] MEDS: Folic Acid 1 MG TABLET PO (09:06)
[2021-11-06] MEDS: Loratadine 10 MG TABLET PO (09:08)
[2021-11-06] MEDS: Insulin Glargine,Hum.rec.anlog 100 UNIT/ML 10 ML VIAL 16 UNIT SUBCUT (10:04)
[2021-11-06] MEDS: Nicotine 21 MG PATCH.TD24 TRANSDERMA (10:47)
--- NOTE | 2021-11-06 11:05 | P.PNPSI_ITS ---
Subjective Subjective Date of Service: 11/06/21 Reason For Visit: Psychosis Subjective Notes: Conditional Voluntary Interim History: Pt mostly in her room as peer has been loud. Pt reports sleeping and eating well. She continues to report some paranoia towards people in the outside, in her neighborhood and also with providers. She denies SI/HI. She is taking medications as prescribed. No behavioral concerns. Medication Compliance: Yes Side effects from medications: No Review of Systems Review of Systems guarded. Self-care okay. Affect flat. No SI. No HI. Some paranoia. No hallucinations. No agitation. Insight and judgment improving Yes all other systems are reviewed and are negative Mental Status Exam Mental Status Exam Narrative: Appearance: casually groomed, fair hygiene in NAD Behavior:cooperative psychomotor: no agitation or retardation noted Speech:clear, normal rate/rhythm/volume, spontaneous Thought process:mostly linear Thought content:pain due to arthritis, more hopeful Mood: better Affect: brightens at times SI:denies HI:none VH/AH:none Delusions:no overt reported or noted Insight/judgment:fair x 2. Memory/cog: alert, oriented x 3. not formally tested. Diagnostics Vital Signs (24Hr): Vital Signs - 24 hr 11/05/21 20:15 11/06/21 09:00 Temperature 97.8 F 98.4 F Pulse Rate 89 96 Respiratory Rate 18 16 Blood Pressure 163/100 H 196/102 H Pulse Oximetry 97 97 Oxygen Delivery Method Room Air Room Air BMI result Body Mass Index 29.7 Labs Results: 10/28/21 12:47 10/28/21 12:47 Labs: Laboratory Results - last 48 hr 11/04/21 11/04/21 11/05/21 17:45 22:05 06:36 POC Glucose 189 H 121 H 115 11/05/21 11/05/21 11/05/21 12:03 17:23 20:24 POC Glucose 230 H 99 194 H 11/06/21 11/06/21 08:26 12:33 POC Glucose 108 174 H Medications Medications Current Medications Acetaminophen (Acetaminophen 325 Mg Tablet) 650 mg PO TID MARI Last Admin: 11/06/21 14:44 Dose: 650 mg Al Hydroxide/Mg Hydroxide (Magnesium Hydrox/Alum Hydrox 30 Ml Oral.Susp) 30 ml PO Q6H PRN PRN Reason: Heartburn/Nausea Last Admin: 11/06/21 07:09 Dose: 30 ml Lipase/Protease/Amylase (Lipase/Prot/Amylase 24/76/120k 1 Cap Capsule.Dr) 1 cap PO TIDWM [facility] Last Admin: 11/06/21 12:58 Dose: 1 cap Benztropine Mesylate (Benztropine Mesylate 0.5 Mg Tablet) 0.5 mg PO BID [facility] Last Admin: 11/06/21 09:06 Dose: 0.5 mg Carvedilol (Carvedilol 6.25 Mg Tablet) 6.25 mg PO BID [facility]; Protocol Last Admin: 11/06/21 09:05 Dose: 6.25 mg Chlorpromazine HCl (Chlorpromazine Hcl 25 Mg Tablet) 25 mg PO Q6H PRN PRN Reason: agitation, psychosis Last Admin: 11/05/21 17:28 Dose: 25 mg Clonidine HCl (Clonidine Hcl 0.1 Mg Tablet) 0.1 mg PO BID PRN; Protocol PRN Reason: hyperarousa; Last Admin: 11/02/21 22:20 Dose: 0.1 mg Folic Acid (Folic Acid 1 Mg Tablet) 1 mg PO DAILY [facility] Last Admin: 11/06/21 09:06 Dose: 1 mg Guaifenesin/Dextromethorphan (Guaifenesin Dm 600/30 1 Tab Tab.Er.12h) 1 tab PO BID PRN PRN Reason: congestion Last Admin: 10/30/21 21:37 Dose: 1 tab Insulin Glargine (Insulin Glargine,Hum.Rec.Anlog 100 Unit/Ml 10 Ml Vial) 16 unit SUBCUT DAILY [facility] Last Admin: 11/06/21 10:04 Dose: 16 unit Insulin Human Lispro (Insulin Lispro 100 Unit/Ml 3 Ml Vial) 0 unit SUBCUT QIDACHS [facility]; Protocol Last Admin: 11/06/21 13:30 Dose: 2 unit Lactulose (Lactulose 20 Gm/30 Ml Solution) 20 gm PO BID [facility] Last Admin: 11/06/21 10:18 Dose: Not Given Loratadine (Loratadine 10 Mg Tablet) 10 mg PO DAILY [facility] Last Admin: 11/06/21 09:08 Dose: 10 mg Magnesium Hydroxide (Milk Of Magnesia 30 Ml Oral.Susp) 30 ml PO DAILY PRN PRN Reason: Constipation Last Admin: 11/05/21 23:30 Dose: 30 ml Magnesium Oxide (Magnesium Oxide 400 Mg Tablet) 400 mg PO BIDPC [facility] Last Admin: 11/06/21 09:06 Dose: 400 mg Melatonin (Melatonin 3 Mg Tablet) 3 mg PO BEDTIME PRN PRN Reason: insomnia Last Admin: 10/29/21 23:11 Dose: 3 mg Multivitamins/Vitamin C (Multivitamin Tablet) 1 tab PO DAILY [facility] Last Admin: 11/06/21 09:06 Dose: 1 tab Nicotine (Nicotine 21 Mg Patch.Td24) 21 mg TRANSDERMA DAILY [facility] Last Admin: 11/06/21 10:47 Dose: 21 mg Nicotine Polacrilex (Nicotine Polacrilex 2 Mg Gum) 2 mg BUCCAL Q2H PRN PRN Reason: Nicotine Cravings Last Admin: 11/06/21 15:38 Dose: 2 mg Omeprazole (Omeprazole 20 Mg Capsule.Dr) 20 mg PO DAILY@0630 [facility] Last Admin: 11/06/21 06:20 Dose: 20 mg Risperidone (Risperidone 2 Mg Tablet) 2 mg PO BEDTIME [facility] Last Admin: 11/05/21 20:21 Dose: 2 mg Risperidone (Risperidone 1 Mg Tablet) 1 mg PO DAILY [facility] Last Admin: 11/06/21 09:06 Dose: 1 mg Torsemide (Torsemide 20 Mg Tablet) 20 mg PO BIDWM [facility]; Protocol Last Admin: 11/06/21 09:06 Dose: 20 mg Trazodone HCl (Trazodone Hcl 50 Mg Tablet) 50 mg PO BEDTIME PRN PRN Reason: Insomnia Last Admin: 10/29/21 23:09 Dose: 50 mg Trolamine Salicylate (Trolamine Salicylate 10 % Cream 85 Gm Tube) 1 appl TOPICAL TID PRN; Protocol PRN Reason: Pain, Mild (Pain Scale 1-3) Last Admin: 11/04/21 17:03 Dose: 1 appl Allergies Allergies Allergy/AdvReac Type Severity Reaction Status Date / Time olanzapine [From Zyprexa] Allergy Unknown Verified 09/03/21 14:49 prednisone Allergy Unknown Verified 09/03/21 14:49 NSAIDS (Non-Steroidal AdvReac Mild Abdominal Verified 09/03/21 14:49 Anti-Inflamma Pain Assessment & Plan Assessment & Plan (1) Schizophrenia, chronic condition: Status: Acute Code(s): F20.9 - Schizophrenia, unspecified Plan Bharti is a 55 y.o. Female who carries a dx of schizophrenia. She presented to [facility] ED on 10/28/2021 due to psychosis, disorganized and decompensated. Recent discharge from [facility] M3 in 08/2021 for decompensation in psychosis in context of recent hospitalization for pneumnonia superimposed on CHF. Utox negative except for fentanyl. No alcohol abuse. Hx of IPLOC, multiple previous admissions for paranoia. Hx of DMH. In the ED, VPA was 34.4. Utox positive for fentanyl, salicylate level 6.3 (later decreased to <5.0), acetaminophen 2.? 10/29: Pt asks to be put back on thorazine, as she says this med helps with agitation and sleep. Will start 25 mg Q6H PRN. Pt has been non-adherent with psych meds prior to admission, will re-start home meds and monitor for benefit. 10/30: no change in regimen. less paranoid and more organized than yesterday. 10/31/2021: No changes to current treatment plan. Gradually improving and just restarted medications 11/01: Arthritis pain- Started Aspercream yesterday. Not on scheduled tylenol (will schedule). Feels gabapentin not helpful. 11/02 continue current medications. 11/03 continue current medications. 11/04- pt with several medical conditions ranging from CDK, liver cirrhosis, qtc prolongation which limits options in terms of medications. Will increase risperidone to 1mg po daily and 2mg po qhs- monitor closely Qtc with each increase of medications. Will d/c abilify- d/c depakote hx of hyper ammonia 11/05 continue current medications, qtc wnl. 11/06 continue current medications. I spent minutes with the patient and/or on the patient floor today, greater than?50% of which was spent counseling/coordinating care. Reason for contiued inpatient stay Substantial Risk for: inability to function
[2021-11-06 12:46] LABS: Glucose, Whole Blood 174 mg/dL (60-115)
--- NOTE | 2021-11-06 12:53 | MHC.OT.ID ---
[address] [phone] F: [phone] Occupational Therapy Inpatient Daily Note Start Time: End Time: Visit Duration: Billable Time: Pain Score: Pain Location: Self-Care Feeding: Grooming: Washing: Dressing: Toileting: Functional Mobility Bed Mobility: Transfers: Ambulation: Therapeutic Activities IADL/Homecare: Balance: lactulose Therapeutic Exercise: Cognition: OT performed the MOCA with patient, patient refused to perform the ACLs. Initally reticent to take the MOCA until OT explained in a variety of ways the purpose of the assessment. Assessment Assessment: Pt scored an 18/30 on the [place] Cognitive Assessment (MOCA) Plan Plan of Care: D/C Today: Electronically Signed By: Beba Herrera OTR/Manuel Reviewed/agree with student documentation: Therapist:
[2021-11-06] MEDS: Insulin Lispro 100 UNIT/ML 3 ML VIAL SUBCUT ×2 (13:30→23:58)
[2021-11-06 17:44] LABS: Glucose, Whole Blood 160 mg/dL (60-115)
[2021-11-06] MEDS: cloNIDine HCL 0.1 MG TABLET PO (18:28)
[2021-11-06] MEDS: Lactulose 20 GM/30 ML SOLUTION PO (21:34)
[2021-11-06] MEDS: Throat Lozenge, Medicated LOZENGE 1 LOZENGE MUCOUS MEM (21:35)
[2021-11-06] MEDS: risperiDONE 2 MG TABLET PO (21:35)
[2021-11-06] MEDS: Melatonin 3 MG TABLET PO (21:35)
[2021-11-06 21:47] LABS: COVID-19 Test Negative (Negative); IDNOW Serial# 16C4AD1C
[2021-11-06 22:24] VITALS: BP 167/107; PULSE 92; RESP 18; TEMP 36.6; O2SAT 94
[2021-11-06 22:41] LABS: Glucose, Whole Blood 151 mg/dL (60-115)
[2021-11-07 00:10] VITALS: BP 197/109; PULSE 80; RESP 18; TEMP 36.7; O2SAT 97
[2021-11-07] MEDS: cloNIDine HCL 0.1 MG TABLET PO ×2 (00:13→01:34)
[2021-11-07 01:00] VITALS: BP 170/92; PULSE 77; RESP 18; TEMP 36.7; O2SAT 91
[2021-11-07 01:45] VITALS: BP 164/92; PULSE 80; RESP 18; TEMP 36.7; O2SAT 96
[2021-11-07 02:20] VITALS: BP 131/65; PULSE 75; RESP 18; O2SAT 96
[2021-11-07] MEDS: Omeprazole 20 MG CAPSULE.DR PO (07:25)
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
[2021-11-07 12:33] LABS: Glucose, Whole Blood 186 mg/dL (60-115)
[2021-11-07] MEDS: Acetaminophen 325 MG TABLET 650 MG PO ×3 (12:35→22:41)
[2021-11-07] MEDS: Loratadine 10 MG TABLET PO ×2 (12:35→14:35)
[2021-11-07] MEDS: carvediloL 6.25 MG TABLET PO (12:35)
[2021-11-07] MEDS: chlorproMAZINE HCl 25 MG TABLET PO ×2 (12:35→17:26)
[2021-11-07] MEDS: Folic Acid 1 MG TABLET PO (12:35)
[2021-11-07] MEDS: Multivitamin TABLET 1 TAB PO (12:35)
[2021-11-07] MEDS: risperiDONE 1 MG TABLET PO (12:35)
[2021-11-07] MEDS: Magnesium Oxide 400 MG TABLET PO ×2 (12:35→17:27)
[2021-11-07] MEDS: Nicotine Polacrilex 2 MG GUM BUCCAL ×2 (15:04→23:07)
[2021-11-07] MEDS: Nicotine 21 MG PATCH.TD24 TRANSDERMA (15:04)
[2021-11-07] MEDS: Torsemide 20 MG TABLET PO (17:27)
[2021-11-07] MEDS: Lipase/Prot/Amylase 24/76/120K 1 CAP CAPSULE.DR PO (17:27)
[2021-11-07 17:37] LABS: Glucose, Whole Blood 146 mg/dL (60-115)
[2021-11-07] MEDS: risperiDONE 2 MG TABLET PO (22:42)
[2021-11-07 23:00] VITALS: BP 182/97; PULSE 82; RESP 18; TEMP 36.3; O2SAT 97
[2021-11-07 23:04] LABS: Glucose, Whole Blood 185 mg/dL (60-115)
[2021-11-07] MEDS: Insulin Lispro 100 UNIT/ML 3 ML VIAL SUBCUT (23:06)
[2021-11-07] MEDS: Melatonin 3 MG TABLET PO (23:07)
[2021-11-07] MEDS: traZODone HCL 50 MG TABLET PO (23:07)
[2021-11-07] MEDS: cloNIDine HCL 0.2 MG TABLET PO (23:10)
--- NOTE | 2021-11-08 | ECG_ITS ---
Test Reason : CHEST PAIN Blood Pressure : / mmHG Vent. Rate : 080 BPM Atrial Rate : 080 BPM P-R Int : 196 ms QRS Dur : 104 ms QT Int : 434 ms P-R-T Axes : 065 063 069 degrees QTc Int : 500 ms Normal sinus rhythm Prolonged QT Abnormal ECG When compared with ECG of 05-NOV-2021 10:19, QT has lengthened Referred By: Mariia Rodriguez Electronically Signed By:KARTHIKEYAN ARREGUIN
[2021-11-08] MEDS: Omeprazole 20 MG CAPSULE.DR PO (07:48)
[2021-11-08 07:55] LABS: Glucose, Whole Blood 196 mg/dL (60-115)
[2021-11-08] MEDS: Loratadine 10 MG TABLET PO (09:26)
[2021-11-08] MEDS: Multivitamin TABLET 1 TAB PO (09:27)
[2021-11-08] MEDS: Torsemide 20 MG TABLET PO ×2 (09:27→18:18)
[2021-11-08] MEDS: Lipase/Prot/Amylase 24/76/120K 1 CAP CAPSULE.DR PO ×3 (09:27→18:18)
[2021-11-08] MEDS: risperiDONE 2 MG TABLET PO ×2 (09:27→20:55)
[2021-11-08] MEDS: Acetaminophen 325 MG TABLET 650 MG PO ×3 (09:27→20:55)
[2021-11-08] MEDS: Folic Acid 1 MG TABLET PO (09:27)
[2021-11-08] MEDS: Magnesium Oxide 400 MG TABLET PO ×2 (09:27→18:18)
[2021-11-08] MEDS: carvediloL 6.25 MG TABLET PO ×2 (09:27→20:55)
[2021-11-08] MEDS: Insulin Glargine,Hum.rec.anlog 100 UNIT/ML 10 ML VIAL 16 UNIT SUBCUT (09:30)
[2021-11-08 09:35] VITALS: BP 129/84; PULSE 85; RESP 18; TEMP 36.6; O2SAT 95
[2021-11-08] MEDS: chlorproMAZINE HCl 25 MG TABLET PO ×2 (09:39→16:33)
[2021-11-08] MEDS: Trolamine Salicylate 10 % Cream 85 GM TUBE 1 APPL TOPICAL (09:40)
[2021-11-08 12:21] LABS: Glucose, Whole Blood 204 mg/dL (60-115)
[2021-11-08 12:30] VITALS: BP 213/100; PULSE 88; RESP 20; O2SAT 100
[2021-11-08] MEDS: Insulin Lispro 100 UNIT/ML 3 ML VIAL SUBCUT ×2 (12:31→20:57)
[2021-11-08] MEDS: Lactulose 20 GM/30 ML SOLUTION PO ×2 (12:32→20:57)
[2021-11-08] MEDS: cloNIDine HCL 0.2 MG TABLET PO (12:39)
[2021-11-08] MEDS: Magnesium Hydrox/Alum Hydrox 30 ML ORAL.SUSP PO (12:44)
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
[2021-11-08 14:34] VITALS: BP 165/86; PULSE 88; RESP 18; O2SAT 95
[2021-11-08] MEDS: Nicotine Polacrilex 2 MG GUM BUCCAL ×2 (16:41→21:49)
[2021-11-08] MEDS: Nicotine 21 MG PATCH.TD24 TRANSDERMA (16:41)
[2021-11-08 17:43] LABS: Glucose, Whole Blood 114 mg/dL (60-115)
[2021-11-08 20:49] LABS: Glucose, Whole Blood 206 mg/dL (60-115)
[2021-11-08 21:00] VITALS: BP 160/88; PULSE 90; RESP 16; TEMP 36.4; O2SAT 94
[2021-11-08] MEDS: traZODone HCL 50 MG TABLET PO (21:48)
[2021-11-08] MEDS: Melatonin 3 MG TABLET PO (21:49)
[2021-11-09] MEDS: Nicotine Polacrilex 2 MG GUM BUCCAL ×3 (10:16→18:29)
[2021-11-09 10:35] VITALS: BP 139/90; PULSE 93; RESP 16; TEMP 36.3; O2SAT 97
[2021-11-09] MEDS: Torsemide 20 MG TABLET PO ×2 (10:46→17:18)
[2021-11-09] MEDS: Lactulose 20 GM/30 ML SOLUTION PO ×2 (10:46→20:36)
[2021-11-09] MEDS: Acetaminophen 325 MG TABLET 650 MG PO ×3 (10:46→20:35)
[2021-11-09] MEDS: risperiDONE 2 MG TABLET PO ×2 (10:46→20:35)
[2021-11-09] MEDS: Folic Acid 1 MG TABLET PO (10:46)
[2021-11-09] MEDS: Multivitamin TABLET 1 TAB PO (10:47)
[2021-11-09] MEDS: Magnesium Oxide 400 MG TABLET PO ×2 (10:47→17:18)
[2021-11-09] MEDS: carvediloL 6.25 MG TABLET PO ×2 (10:47→20:35)
[2021-11-09] MEDS: Omeprazole 20 MG CAPSULE.DR PO (10:47)
[2021-11-09] MEDS: Lipase/Prot/Amylase 24/76/120K 1 CAP CAPSULE.DR PO ×3 (10:48→17:18)
[2021-11-09] MEDS: Loratadine 10 MG TABLET PO (10:49)
[2021-11-09 10:55] LABS: Glucose, Whole Blood 178 mg/dL (60-115)
[2021-11-09] MEDS: Magnesium Hydrox/Alum Hydrox 30 ML ORAL.SUSP PO (11:06)
[2021-11-09] MEDS: Insulin Glargine,Hum.rec.anlog 100 UNIT/ML 10 ML VIAL 16 UNIT SUBCUT (11:10)
[2021-11-09] MEDS: chlorproMAZINE HCl 25 MG TABLET PO (11:45)
[2021-11-09] MEDS: chlorproMAZINE HCl 25 MG TABLET 50 MG PO ×2 (11:56→15:30)
[2021-11-09 12:54] LABS: Glucose, Whole Blood 213 mg/dL (60-115)
[2021-11-09] MEDS: Insulin Lispro 100 UNIT/ML 3 ML VIAL SUBCUT ×3 (13:26→20:40)
--- NOTE | 2021-11-09 13:57 | PC.NURSE ---
Around 11:40am, pt was in her room when another patient walked by. Pt came out of her room yelling saying he just called me a fucking nig*er! I'm going to fuck him up, I'm going to kill him. I don't care if I go to group home. Dr. Jackson was immediately notified. Thorazine 25mg was administered followed by an additional 50mg PO per Dr. Jackson. Pt took the medications willingly. Pt was able to be redirected and was able to remain calm.
--- NOTE | 2021-11-09 14:46 | PC.NURSE ---
Patient asked to sign a 3-day notice. Patient started to write other things on the 3-day notice and was told there is another document for her concerns. Patient started to get agitated and would not fill out the 3-day notice appropriately.
--- NOTE | 2021-11-09 15:28 | P.PNPSI_ITS ---
Subjective Subjective Date of Service: 11/09/21 Reason For Visit: Psychosis Interim History: pt found yelling loudly in the napoles accusing a peer of calling her the N word. pt was redirected to interview room, where she ultimately de-escalated. disorganized, answering with non-sequiturs, angry/labile, irritable. able to communicate that she finds thorazine helpful when she is agitated and would like more thorazine now. she had recently received 25 mg and was provided another 50 mg during the interview. pt was walked to her room at the end of the interview, in the opposite direction from the peer whom she had been accusing's room. MD was later contacted by RN with report of pt's once again being agitated; thorazine 50 and ativan 1 mg were ordered. per staff, difficult to approach. non-sensical, paranoid, labile. isolative, bizarre. RIS. med-compliant. doesn't want to return to apartment. QT = 500. sleeping well. Mental Status Exam Mental Status Exam Narrative: In hospital attire, hair short, unkempt. Good eye contact, attentive. No Tics or Tremors. No abnormal involuntary movements. agitated but cooperative. incr rate, amount, loudness of speech. nml prosody, decr latency. affect is constricted, hyper-intense, labile. no SI/HI/AVH expressed/ Thoughts are disorganized, paranoid, delusional. No known cognitive or memory impairment. Insight/ Judgment severely impaired. Diagnostics Vital Signs (24Hr): Vital Signs - 24 hr 11/08/21 21:00 11/09/21 10:35 Temperature 97.5 F 97.4 F Pulse Rate 90 93 Respiratory Rate 16 16 Blood Pressure 160/88 H 139/90 H Pulse Oximetry 94 97 Oxygen Delivery Method Room Air Room Air BMI result Body Mass Index 29.7 Labs Results: 10/28/21 12:47 10/28/21 12:47 Labs: Laboratory Results - last 48 hr 11/07/21 11/07/21 11/08/21 17:31 22:56 07:51 POC Glucose 146 H 185 H 196 H 11/08/21 11/08/21 11/08/21 12:13 17:36 20:44 POC Glucose 204 H 114 206 H 11/09/21 11/09/21 10:45 12:49 POC Glucose 178 H 213 H Medications Medications Current Medications Acetaminophen (Acetaminophen 325 Mg Tablet) 650 mg PO TID [facility] Last Admin: 11/09/21 10:46 Dose: 650 mg Al Hydroxide/Mg Hydroxide (Magnesium Hydrox/Alum Hydrox 30 Ml Oral.Susp) 30 ml PO Q6H PRN PRN Reason: Heartburn/Nausea Last Admin: 11/09/21 11:06 Dose: 30 ml Lipase/Protease/Amylase (Lipase/Prot/Amylase 24/76/120k 1 Cap Capsule.Dr) 1 cap PO TIDWM [facility] Last Admin: 11/09/21 13:26 Dose: 1 cap Benzocaine (Throat Lozenge, Medicated Lozenge) 1 lozenge MUCOUS MEM Q2H PRN PRN Reason: Sore Throat Last Admin: 11/06/21 21:35 Dose: 1 lozenge Carvedilol (Carvedilol 6.25 Mg Tablet) 6.25 mg PO BID [facility]; Protocol Last Admin: 11/09/21 10:47 Dose: 6.25 mg Chlorpromazine HCl (Chlorpromazine Hcl 25 Mg Tablet) 25 mg PO Q6H PRN PRN Reason: agitation, psychosis Last Admin: 11/09/21 11:45 Dose: 25 mg Chlorpromazine HCl (Chlorpromazine Hcl 25 Mg Tablet) 50 mg PO Q4H PRN PRN Reason: severe agitation Last Admin: 11/09/21 11:56 Dose: 50 mg Clonidine HCl (Clonidine Hcl 0.2 Mg Tablet) 0.2 mg PO BID PRN; Protocol PRN Reason: hyperarousal, htn Folic Acid (Folic Acid 1 Mg Tablet) 1 mg PO DAILY [facility] Last Admin: 11/09/21 10:46 Dose: 1 mg Guaifenesin/Dextromethorphan (Guaifenesin Dm 600/30 1 Tab Tab.Er.12h) 1 tab PO BID PRN PRN Reason: congestion Last Admin: 10/30/21 21:37 Dose: 1 tab Insulin Glargine (Insulin Glargine,Hum.Rec.Anlog 100 Unit/Ml 10 Ml Vial) 16 unit SUBCUT DAILY [facility] Last Admin: 11/09/21 11:10 Dose: 16 unit Insulin Human Lispro (Insulin Lispro 100 Unit/Ml 3 Ml Vial) 0 unit SUBCUT QIDACHS [facility]; Protocol Last Admin: 11/09/21 13:26 Dose: 4 unit Lactulose (Lactulose 20 Gm/30 Ml Solution) 20 gm PO BID [facility] Last Admin: 11/09/21 10:46 Dose: 20 gm Loratadine (Loratadine 10 Mg Tablet) 10 mg PO DAILY [facility] Last Admin: 11/09/21 10:49 Dose: 10 mg Magnesium Hydroxide (Milk Of Magnesia 30 Ml Oral.Susp) 30 ml PO DAILY PRN PRN Reason: Constipation Last Admin: 11/05/21 23:30 Dose: 30 ml Magnesium Oxide (Magnesium Oxide 400 Mg Tablet) 400 mg PO BIDPC [facility] Last Admin: 11/09/21 10:47 Dose: 400 mg Melatonin (Melatonin 3 Mg Tablet) 3 mg PO BEDTIME PRN PRN Reason: insomnia Last Admin: 11/08/21 21:49 Dose: 3 mg Multivitamins/Vitamin C (Multivitamin Tablet) 1 tab PO DAILY [facility] Last Admin: 11/09/21 10:47 Dose: 1 tab Nicotine (Nicotine 21 Mg Patch.Td24) 21 mg TRANSDERMA DAILY [facility] Last Admin: 11/09/21 11:21 Dose: Not Given Nicotine Polacrilex (Nicotine Polacrilex 2 Mg Gum) 2 mg BUCCAL Q2H PRN PRN Reason: Nicotine Cravings Last Admin: 11/09/21 10:16 Dose: 2 mg Omeprazole (Omeprazole 20 Mg Capsule.Dr) 20 mg PO DAILY@0630 [facility] Last Admin: 11/09/21 10:47 Dose: 20 mg Risperidone (Risperidone 2 Mg Tablet) 2 mg PO BEDTIME [facility] Last Admin: 11/08/21 20:55 Dose: 2 mg Risperidone (Risperidone 2 Mg Tablet) 2 mg PO DAILY [facility] Last Admin: 11/09/21 10:46 Dose: 2 mg Torsemide (Torsemide 20 Mg Tablet) 20 mg PO BIDWM [facility]; Protocol Last Admin: 11/09/21 10:46 Dose: 20 mg Trazodone HCl (Trazodone Hcl 50 Mg Tablet) 50 mg PO BEDTIME PRN PRN Reason: Insomnia Last Admin: 11/08/21 21:48 Dose: 50 mg Trolamine Salicylate (Trolamine Salicylate 10 % Cream 85 Gm Tube) 1 appl TOPICAL TID PRN; Protocol PRN Reason: Pain, Mild (Pain Scale 1-3) Last Admin: 11/08/21 09:40 Dose: 1 appl Allergies Allergies Allergy/AdvReac Type Severity Reaction Status Date / Time olanzapine [From Zyprexa] Allergy Unknown Verified 09/03/21 14:49 prednisone Allergy Unknown Verified 09/03/21 14:49 NSAIDS (Non-Steroidal AdvReac Mild Abdominal Verified 09/03/21 14:49 Anti-Inflamma Pain Assessment & Plan Assessment & Plan (1) Schizophrenia, chronic condition: Status: Acute Code(s): F20.9 - Schizophrenia, unspecified Plan Bharti is a 55 y.o. Female who carries a dx of schizophrenia. She presented to [facility] on 10/28/2021 due to psychosis, disorganized and decompensated. Recent discharge from [facility] in 08/2021 for decompensation in psychosis in context of recent hospitalization for pneumnonia superimposed on CHF. Utox negative except for fentanyl. No alcohol abuse. Hx of IPLOC, multiple previous admissions for paranoia. Hx of DMH. In the ED, VPA was 34.4. Utox positive for fentanyl, salicylate level 6.3 (later decreased to <5.0), acetaminophen 2.? 10/29: Pt asks to be put back on thorazine, as she says this med helps with agitation and sleep. Will start 25 mg Q6H PRN. Pt has been non-adherent with psych meds prior to admission, will re-start home meds and monitor for benefit. 10/30: no change in regimen. less paranoid and more organized than yesterday. 10/31/2021: No changes to current treatment plan. Gradually improving and just restarted medications 11/01: Arthritis pain- Started Aspercream yesterday. Not on scheduled tylenol (will schedule). Feels gabapentin not helpful. 11/02 continue current medications. 11/03 continue current medications. 11/04- pt with several medical conditions ranging from CDK, liver cirrhosis, qtc prolongation which limits options in terms of medications. Will increase risperidone to 1mg po daily and 2mg po qhs- monitor closely Qtc with each increase of medications. Will d/c abilify- d/c depakote hx of hyper ammonia 11/05 continue current medications, qtc wnl. 11/06 continue current medications. 11/07 Per staff, pt worse, more paranoid, increased risperdal to 2 mg BID and will discontinue cogentin, as pt was on this when she was taking abilify and may not longer need it, reduce anticholinergic SE. 11/08: No med changes, order EKG 11/09: QT 500. labile, delusional, irritable - essentially becoming manic. VPA was DCed 11/04 due to reported h/o hyperammonemia. will start tegretol as pt clearly needs a mood stabilizer at this point. will follow QTc. if mood stabilizer effective may be able to reduce neuroleptic dosing. I spent ___35___ minutes with the patient and/or on the patient floor today, greater than?50% of which was spent counseling/coordinating care. Reason for contiued inpatient stay Substantial Risk for: harm to self, harm to others, inability to function and rapid decompensation
[2021-11-09] MEDS: LORazepam 1 MG TABLET PO (15:29)
[2021-11-09] MEDS: Nicotine 21 MG PATCH.TD24 TRANSDERMA (16:14)
[2021-11-09 18:01] LABS: Glucose, Whole Blood 208 mg/dL (60-115)
[2021-11-09 20:30] VITALS: BP 192/93; PULSE 94; RESP 18; TEMP 36.3; O2SAT 96
[2021-11-09 20:31] LABS: Glucose, Whole Blood 240 mg/dL (60-115)
[2021-11-09] MEDS: carBAMazepine ER 200 MG TAB.ER.12H PO (20:35)
[2021-11-10 06:00] VITALS: BP 179/93; PULSE 86; RESP 20; TEMP 36.5; O2SAT 94
[2021-11-10] MEDS: cloNIDine HCL 0.2 MG TABLET PO ×2 (07:01→19:33)
[2021-11-10] MEDS: Omeprazole 20 MG CAPSULE.DR PO (07:01)
[2021-11-10 08:53] VITALS: BP 97/59; PULSE 95; RESP 18; TEMP 36.3; O2SAT 95
[2021-11-10] MEDS: Magnesium Oxide 400 MG TABLET PO ×2 (08:55→17:22)
[2021-11-10] MEDS: Folic Acid 1 MG TABLET PO (08:55)
[2021-11-10] MEDS: Lipase/Prot/Amylase 24/76/120K 1 CAP CAPSULE.DR PO ×3 (08:56→17:22)
[2021-11-10] MEDS: risperiDONE 2 MG TABLET PO ×2 (08:56→21:05)
[2021-11-10] MEDS: Loratadine 10 MG TABLET PO (08:56)
[2021-11-10] MEDS: Multivitamin TABLET 1 TAB PO (08:56)
[2021-11-10] MEDS: Torsemide 20 MG TABLET PO ×2 (08:56→17:52)
[2021-11-10] MEDS: carBAMazepine ER 200 MG TAB.ER.12H PO ×2 (08:56→21:04)
[2021-11-10] MEDS: Acetaminophen 325 MG TABLET 650 MG PO ×3 (08:56→21:04)
[2021-11-10 09:08] LABS: Glucose, Whole Blood 104 mg/dL (60-115)
[2021-11-10] MEDS: Insulin Glargine,Hum.rec.anlog 100 UNIT/ML 10 ML VIAL 16 UNIT SUBCUT (10:03)
[2021-11-10 13:15] LABS: Glucose, Whole Blood 161 mg/dL (60-115)
[2021-11-10] MEDS: Insulin Lispro 100 UNIT/ML 3 ML VIAL SUBCUT ×3 (13:18→21:11)
[2021-11-10] MEDS: chlorproMAZINE HCl 25 MG TABLET 50 MG PO (15:13)
[2021-11-10] MEDS: Nicotine 21 MG PATCH.TD24 TRANSDERMA (15:18)
--- NOTE | 2021-11-10 16:18 | P.PNPSI_ITS ---
Subjective Subjective Date of Service: 11/10/21 Reason For Visit: Psychosis Interim History: calm and cooperative today. remains disorganized and delusional, but affectively much improved from yesterday. per staff, very hypertensive and got hypotensive with clonidine dose. appeared to have slept all night. Mental Status Exam Mental Status Exam Narrative: In hospital attire, hair short, unkempt. Good eye contact, attentive. No Tics or Tremors. No abnormal involuntary movements. calm and cooperative. incr rate, amount of speech. nml loudness, nml prosody, decr latency. affect is constricted, normo-intense, non-labile. no SI/HI/AVH expressed. Thoughts are disorganized, paranoid, delusional. No known cognitive or memory impairment. Insight/ Judgment severely impaired. Diagnostics Vital Signs (24Hr): Vital Signs - 24 hr 11/09/21 20:30 11/10/21 06:00 11/10/21 08:53 Temperature 97.3 F 97.7 F 97.3 F Pulse Rate 94 86 95 Respiratory Rate 18 20 18 Blood Pressure 192/93 H 179/93 H 97/59 L Pulse Oximetry 96 94 95 Oxygen Delivery Method Room Air Room Air Room Air BMI result Body Mass Index 29.7 Labs Results: 10/28/21 12:47 10/28/21 12:47 Labs: Laboratory Results - last 48 hr 11/08/21 11/08/21 11/09/21 17:36 20:44 10:45 POC Glucose 114 206 H 178 H 11/09/21 11/09/21 11/09/21 12:49 17:56 20:25 POC Glucose 213 H 208 H 240 H 11/10/21 11/10/21 08:52 13:13 POC Glucose 104 161 H Medications Medications Current Medications Acetaminophen (Acetaminophen 325 Mg Tablet) 650 mg PO TID [facility] Last Admin: 11/10/21 15:13 Dose: 650 mg Al Hydroxide/Mg Hydroxide (Magnesium Hydrox/Alum Hydrox 30 Ml Oral.Susp) 30 ml PO Q6H PRN PRN Reason: Heartburn/Nausea Last Admin: 11/09/21 11:06 Dose: 30 ml Lipase/Protease/Amylase (Lipase/Prot/Amylase 24/76/120k 1 Cap Capsule.Dr) 1 cap PO TIDWM [facility] Last Admin: 11/10/21 13:17 Dose: 1 cap Benzocaine (Throat Lozenge, Medicated Lozenge) 1 lozenge MUCOUS MEM Q2H PRN PRN Reason: Sore Throat Last Admin: 11/06/21 21:35 Dose: 1 lozenge Carbamazepine (Carbamazepine Er 200 Mg Tab.Er.12h) 200 mg PO BID [facility] Last Admin: 11/10/21 08:56 Dose: 200 mg Carvedilol (Carvedilol 6.25 Mg Tablet) 6.25 mg PO BID [facility]; Protocol Last Admin: 11/10/21 10:19 Dose: Not Given Chlorpromazine HCl (Chlorpromazine Hcl 25 Mg Tablet) 25 mg PO Q6H PRN PRN Reason: agitation, psychosis Last Admin: 11/09/21 11:45 Dose: 25 mg Chlorpromazine HCl (Chlorpromazine Hcl 25 Mg Tablet) 50 mg PO Q4H PRN PRN Reason: severe agitation Last Admin: 11/10/21 15:13 Dose: 50 mg Clonidine HCl (Clonidine Hcl 0.2 Mg Tablet) 0.2 mg PO BID PRN; Protocol PRN Reason: hyperarousal, htn Last Admin: 11/10/21 07:01 Dose: 0.2 mg Folic Acid (Folic Acid 1 Mg Tablet) 1 mg PO DAILY [facility] Last Admin: 11/10/21 08:55 Dose: 1 mg Guaifenesin/Dextromethorphan (Guaifenesin Dm 600/30 1 Tab Tab.Er.12h) 1 tab PO BID PRN PRN Reason: congestion Last Admin: 10/30/21 21:37 Dose: 1 tab Insulin Glargine (Insulin Glargine,Hum.Rec.Anlog 100 Unit/Ml 10 Ml Vial) 16 unit SUBCUT DAILY [facility] Last Admin: 11/10/21 10:03 Dose: 16 unit Insulin Human Lispro (Insulin Lispro 100 Unit/Ml 3 Ml Vial) 0 unit SUBCUT QIDACHS [facility]; Protocol Last Admin: 11/10/21 13:18 Dose: 2 unit Lactulose (Lactulose 20 Gm/30 Ml Solution) 20 gm PO BID [facility] Last Admin: 11/10/21 10:05 Dose: Not Given Loratadine (Loratadine 10 Mg Tablet) 10 mg PO DAILY [facility] Last Admin: 11/10/21 08:56 Dose: 10 mg Magnesium Hydroxide (Milk Of Magnesia 30 Ml Oral.Susp) 30 ml PO DAILY PRN PRN Reason: Constipation Last Admin: 11/05/21 23:30 Dose: 30 ml Magnesium Oxide (Magnesium Oxide 400 Mg Tablet) 400 mg PO BIDPC [facility] Last Admin: 11/10/21 08:55 Dose: 400 mg Melatonin (Melatonin 3 Mg Tablet) 3 mg PO BEDTIME PRN PRN Reason: insomnia Last Admin: 11/08/21 21:49 Dose: 3 mg Multivitamins/Vitamin C (Multivitamin Tablet) 1 tab PO DAILY [facility] Last Admin: 11/10/21 08:56 Dose: 1 tab Nicotine (Nicotine 21 Mg Patch.Td24) 21 mg TRANSDERMA DAILY [facility] Last Admin: 11/10/21 15:18 Dose: 21 mg Nicotine Polacrilex (Nicotine Polacrilex 2 Mg Gum) 2 mg BUCCAL Q2H PRN PRN Reason: Nicotine Cravings Last Admin: 11/09/21 18:29 Dose: 2 mg Omeprazole (Omeprazole 20 Mg Capsule.Dr) 20 mg PO DAILY@0630 [facility] Last Admin: 11/10/21 07:01 Dose: 20 mg Risperidone (Risperidone 2 Mg Tablet) 2 mg PO BEDTIME [facility] Last Admin: 11/09/21 20:35 Dose: 2 mg Risperidone (Risperidone 2 Mg Tablet) 2 mg PO DAILY [facility] Last Admin: 11/10/21 08:56 Dose: 2 mg Torsemide (Torsemide 20 Mg Tablet) 20 mg PO BIDWM [facility]; Protocol Last Admin: 11/10/21 08:56 Dose: 20 mg Trazodone HCl (Trazodone Hcl 50 Mg Tablet) 50 mg PO BEDTIME PRN PRN Reason: Insomnia Last Admin: 11/08/21 21:48 Dose: 50 mg Trolamine Salicylate (Trolamine Salicylate 10 % Cream 85 Gm Tube) 1 appl TOPICAL TID PRN; Protocol PRN Reason: Pain, Mild (Pain Scale 1-3) Last Admin: 11/08/21 09:40 Dose: 1 appl Allergies Allergies Allergy/AdvReac Type Severity Reaction Status Date / Time olanzapine [From Zyprexa] Allergy Unknown Verified 09/03/21 14:49 prednisone Allergy Unknown Verified 09/03/21 14:49 NSAIDS (Non-Steroidal AdvReac Mild Abdominal Verified 09/03/21 14:49 Anti-Inflamma Pain Assessment & Plan Assessment & Plan (1) Schizophrenia, chronic condition: Status: Acute Code(s): F20.9 - Schizophrenia, unspecified Plan Bharti is a 55 y.o. Female who carries a dx of schizophrenia. She presented to [facility] on 10/28/2021 due to psychosis, disorganized and decompensated. Recent discharge from [facility] in 08/2021 for decompensation in psychosis in context of recent hospitalization for pneumnonia superimposed on CHF. Utox negative except for fentanyl. No alcohol abuse. Hx of IPLOC, multiple previous admissions for paranoia. Hx of DMH. In the ED, VPA was 34.4. Utox positive for fentanyl, salicylate level 6.3 (later decreased to <5.0), acetaminophen 2.? 10/29: Pt asks to be put back on thorazine, as she says this med helps with agitation and sleep. Will start 25 mg Q6H PRN. Pt has been non-adherent with psych meds prior to admission, will re-start home meds and monitor for benefit. 10/30: no change in regimen. less paranoid and more organized than yesterday. 10/31/2021: No changes to current treatment plan. Gradually improving and just restarted medications 11/01: Arthritis pain- Started Aspercream yesterday. Not on scheduled tylenol (will schedule). Feels gabapentin not helpful. 11/02 continue current medications. 11/03 continue current medications. 11/04- pt with several medical conditions ranging from CDK, liver cirrhosis, qtc prolongation which limits options in terms of medications. Will increase risperidone to 1mg po daily and 2mg po qhs- monitor closely Qtc with each increase of medications. Will d/c abilify- d/c depakote hx of hyper ammonia 11/05 continue current medications, qtc wnl. 11/06 continue current medications. 11/07 Per staff, pt worse, more paranoid, increased risperdal to 2 mg BID and will discontinue cogentin, as pt was on this when she was taking abilify and may not longer need it, reduce anticholinergic SE. 11/08: No med changes, order EKG 11/09: QT 500. labile, delusional, irritable - essentially becoming manic. VPA was DCed 11/04 due to reported h/o hyperammonemia. will start tegretol as pt clearly needs a mood stabilizer at this point. will follow QTc. if mood stabilizer effective may be able to reduce neuroleptic dosing. 11/10: affectively much improved today. continue current regimen. medicine consult for severe HTN. I spent __25____ minutes with the patient and/or on the patient floor today, greater than?50% of which was spent counseling/coordinating care. Reason for contiued inpatient stay Substantial Risk for: inability to function and rapid decompensation
[2021-11-10 17:45] VITALS: BP 178/93; BP 197/99
[2021-11-10 18:03] LABS: Glucose, Whole Blood 173 mg/dL (60-115)
[2021-11-10 19:35] VITALS: BP 190/97; PULSE 85
[2021-11-10] MEDS: Nicotine Polacrilex 2 MG GUM BUCCAL (19:35)
[2021-11-10 20:43] LABS: Glucose, Whole Blood 173 mg/dL (60-115)
[2021-11-10 21:00] VITALS: BP 185/110; PULSE 91; TEMP 36.2; O2SAT 97
[2021-11-10] MEDS: carvediloL 6.25 MG TABLET PO (21:04)
[2021-11-10] MEDS: Lactulose 20 GM/30 ML SOLUTION PO (21:05)
[2021-11-10 22:12] VITALS: BP 179/90; PULSE 81
[2021-11-11 08:22] LABS: Glucose, Whole Blood 93 mg/dL (60-115)
[2021-11-11 08:35] VITALS: BP 144/91; PULSE 99; RESP 18; TEMP 36.6; O2SAT 94
[2021-11-11] MEDS: Omeprazole 20 MG CAPSULE.DR PO (09:00)
[2021-11-11] MEDS: Acetaminophen 325 MG TABLET 650 MG PO ×3 (09:01→21:02)
[2021-11-11] MEDS: carBAMazepine ER 200 MG TAB.ER.12H PO (09:01)
[2021-11-11] MEDS: Magnesium Oxide 400 MG TABLET PO ×2 (09:01→18:04)
[2021-11-11] MEDS: Torsemide 20 MG TABLET PO ×2 (09:01→18:05)
[2021-11-11] MEDS: Loratadine 10 MG TABLET PO (09:01)
[2021-11-11] MEDS: carvediloL 6.25 MG TABLET PO ×2 (09:01→21:03)
[2021-11-11] MEDS: Folic Acid 1 MG TABLET PO (09:01)
[2021-11-11] MEDS: risperiDONE 2 MG TABLET PO ×2 (09:01→21:03)
[2021-11-11] MEDS: Multivitamin TABLET 1 TAB PO (09:02)
[2021-11-11] MEDS: Nicotine 21 MG PATCH.TD24 TRANSDERMA (09:02)
[2021-11-11] MEDS: Lactulose 20 GM/30 ML SOLUTION PO ×2 (09:02→21:03)
[2021-11-11] MEDS: Lipase/Prot/Amylase 24/76/120K 1 CAP CAPSULE.DR PO ×3 (09:02→18:04)
[2021-11-11] MEDS: Insulin Glargine,Hum.rec.anlog 100 UNIT/ML 10 ML VIAL 16 UNIT SUBCUT (10:39)
[2021-11-11 10:55] LABS: B Type Natriuretic Peptide 36 pg/mL (<100)
[2021-11-11 11:17] LABS: Alanine Aminotransferase 130 U/L (0-31); Alkaline Phosphatase 332 U/L (39-117); Anion Gap 19 (12-20); Aspartate Amino Transferase 99 U/L (5-31); Bilirubin Total 0.7 mg/dL (0.0-1.0); Blood Urea Nitrogen 19 mg/dL (9-16); Calcium 9.7 mg/dL (8.4-10.2); Carbon Dioxide 25 mmol/L (22-29); Chloride 98 mmol/L (96-108); Creatinine Clr Calc Pharmacy 74.8; Estimated Glomerular Filt Rate 57; Glucose Random 151 mg/dL (60-115); Potassium 4.1 mmol/L (3.3-5.1); Sodium 138 mmol/L (135-145); Total Protein 7.7 g/dL (6.5-8.0)
--- NOTE | 2021-11-11 11:24 | HO.PSYCHPN ---
Subjective Subjective Date of Service: 11/11/21 Reason For Visit: Psychosis Subjective Notes: Conditional Voluntary Interim History: Pt reports some suspiciousness towards staff and people outside in the community. She denies SI/HI. She reports AH, and is seen self dialoging. She reports sleeping well. She denies any physical concerns. Seen by hospitalist, labs completed- elevated LFTs and Alk. Phos. that seems related to medication cabamazepine. She asks about rest home and when will her meeting be with them. Medication Compliance: Yes Side effects from medications: No Attending Groups: Intermittent Review of Systems Review of Systems No fever, chills or weakness No chest pain, palpitation No shortness of breath or coughing No abdominal pain, nausea or vomiting No urinary symptoms No any rash or wounds Yes all other systems are reviewed and are negative Mental Status Exam Mental Status Exam Narrative: In hospital attire, hair short, unkempt. Good eye contact, attentive. No Tics or Tremors. No abnormal involuntary movements. calm and cooperative. incr rate, amount of speech. nml loudness, nml prosody, decr latency. affect is constricted, normo-intense, non-labile. no SI/HI/AVH expressed. Thoughts are disorganized, paranoid, delusional. No known cognitive or memory impairment. Insight/ Judgment severely impaired. Diagnostics Vital Signs (24Hr): Vital Signs - 24 hr 11/11/21 18:00 11/11/21 21:10 11/12/21 06:00 Temperature 97.8 F 97.8 F Pulse Rate 117 H 101 H 85 Respiratory Rate 16 Blood Pressure 171/124 H 152/105 H 174/94 H Pulse Oximetry 91 L 98 Oxygen Delivery Method Room Air Room Air BMI result Body Mass Index 29.7 Labs Results: 10/28/21 12:47 11/11/21 10:14 Labs: Laboratory Results - last 48 hr 11/10/21 11/10/21 11/10/21 08:52 13:13 17:54 Sodium Potassium Chloride Carbon Dioxide Anion Gap BUN Creatinine Estim Creat Clear Calc Estimated GFR POC Glucose 104 161 H 173 H Random Glucose Calcium Total Bilirubin AST ALT Alkaline Phosphatase B-Natriuretic Peptide Total Protein Albumin Lipase 11/10/21 11/11/21 11/11/21 20:33 08:17 10:14 Sodium 138 Potassium 4.1 Chloride 98 Carbon Dioxide 25 Anion Gap 19 BUN 19 H Creatinine 1.01 Estim Creat Clear Calc 74.8 Estimated GFR 57 POC Glucose 173 H 93 Random Glucose 151 H Calcium 9.7 Total Bilirubin 0.7 AST 99 H ALT 130 H Alkaline Phosphatase 332 H D B-Natriuretic Peptide Total Protein 7.7 Albumin 4.0 Lipase 18 11/11/21 11/11/21 11/11/21 10:14 12:41 18:07 Sodium Potassium Chloride Carbon Dioxide Anion Gap BUN Creatinine Estim Creat Clear Calc Estimated GFR POC Glucose 135 H 112 Random Glucose Calcium Total Bilirubin AST ALT Alkaline Phosphatase B-Natriuretic Peptide 36 Total Protein Albumin Lipase 11/11/21 11/12/21 20:52 08:19 Sodium Potassium Chloride Carbon Dioxide Anion Gap BUN Creatinine Estim Creat Clear Calc Estimated GFR POC Glucose 177 H 114 Random Glucose Calcium Total Bilirubin AST ALT Alkaline Phosphatase B-Natriuretic Peptide Total Protein Albumin Lipase Medications Medications Current Medications Acetaminophen (Acetaminophen 325 Mg Tablet) 650 mg PO TID [facility] Last Admin: 11/11/21 21:02 Dose: 650 mg Al Hydroxide/Mg Hydroxide (Magnesium Hydrox/Alum Hydrox 30 Ml Oral.Susp) 30 ml PO Q6H PRN PRN Reason: Heartburn/Nausea Last Admin: 11/09/21 11:06 Dose: 30 ml Lipase/Protease/Amylase (Lipase/Prot/Amylase 24/76/120k 1 Cap Capsule.Dr) 1 cap PO TIDWM [facility] Last Admin: 11/11/21 18:04 Dose: 1 cap Benzocaine (Throat Lozenge, Medicated Lozenge) 1 lozenge MUCOUS MEM Q2H PRN PRN Reason: Sore Throat Last Admin: 11/06/21 21:35 Dose: 1 lozenge Carvedilol (Carvedilol 6.25 Mg Tablet) 6.25 mg PO BID [facility]; Protocol Last Admin: 11/11/21 21:03 Dose: 6.25 mg Chlorpromazine HCl (Chlorpromazine Hcl 25 Mg Tablet) 25 mg PO Q6H PRN PRN Reason: agitation, psychosis Last Admin: 11/09/21 11:45 Dose: 25 mg Chlorpromazine HCl (Chlorpromazine Hcl 25 Mg Tablet) 50 mg PO Q4H PRN PRN Reason: severe agitation Last Admin: 11/10/21 15:13 Dose: 50 mg Clonidine HCl (Clonidine Hcl 0.2 Mg Tablet) 0.2 mg PO BID PRN; Protocol PRN Reason: hyperarousal, htn Last Admin: 11/10/21 19:33 Dose: 0.2 mg Folic Acid (Folic Acid 1 Mg Tablet) 1 mg PO DAILY [facility] Last Admin: 11/11/21 09:01 Dose: 1 mg Guaifenesin/Dextromethorphan (Guaifenesin Dm 600/30 1 Tab Tab.Er.12h) 1 tab PO BID PRN PRN Reason: congestion Last Admin: 10/30/21 21:37 Dose: 1 tab Insulin Glargine (Insulin Glargine,Hum.Rec.Anlog 100 Unit/Ml 10 Ml Vial) 16 unit SUBCUT DAILY [facility] Last Admin: 11/11/21 10:39 Dose: 16 unit Insulin Human Lispro (Insulin Lispro 100 Unit/Ml 3 Ml Vial) 0 unit SUBCUT QIDACHS [facility]; Protocol Last Admin: 11/11/21 21:01 Dose: 4 unit Lactulose (Lactulose 20 Gm/30 Ml Solution) 20 gm PO BID [facility] Last Admin: 11/11/21 21:03 Dose: 20 gm Loratadine (Loratadine 10 Mg Tablet) 10 mg PO DAILY [facility] Last Admin: 11/11/21 09:01 Dose: 10 mg Losartan Potassium (Losartan Potassium 25 Mg Tablet) 25 mg PO DAILY [facility]; Protocol Last Admin: 11/11/21 18:04 Dose: 25 mg Magnesium Hydroxide (Milk Of Magnesia 30 Ml Oral.Susp) 30 ml PO DAILY PRN PRN Reason: Constipation Last Admin: 11/05/21 23:30 Dose: 30 ml Magnesium Oxide (Magnesium Oxide 400 Mg Tablet) 400 mg PO BIDPC [facility] Last Admin: 11/11/21 18:04 Dose: 400 mg Melatonin (Melatonin 3 Mg Tablet) 3 mg PO BEDTIME PRN PRN Reason: insomnia Last Admin: 11/08/21 21:49 Dose: 3 mg Multivitamins/Vitamin C (Multivitamin Tablet) 1 tab PO DAILY [facility] Last Admin: 11/11/21 09:02 Dose: 1 tab Nicotine (Nicotine 21 Mg Patch.Td24) 21 mg TRANSDERMA DAILY [facility] Last Admin: 11/11/21 09:02 Dose: 21 mg Nicotine Polacrilex (Nicotine Polacrilex 2 Mg Gum) 2 mg BUCCAL Q2H PRN PRN Reason: Nicotine Cravings Last Admin: 11/11/21 21:02 Dose: 2 mg Omeprazole (Omeprazole 20 Mg Capsule.Dr) 20 mg PO DAILY@0630 [facility] Last Admin: 11/11/21 09:00 Dose: 20 mg Risperidone (Risperidone 2 Mg Tablet) 2 mg PO BEDTIME [facility]I Last Admin: 11/11/21 21:03 Dose: 2 mg Risperidone (Risperidone 2 Mg Tablet) 2 mg PO DAILY [facility] Last Admin: 11/11/21 09:01 Dose: 2 mg Torsemide (Torsemide 20 Mg Tablet) 20 mg PO BIDWM [facility]; Protocol Last Admin: 11/11/21 18:05 Dose: 20 mg Trazodone HCl (Trazodone Hcl 50 Mg Tablet) 50 mg PO BEDTIME PRN PRN Reason: Insomnia Last Admin: 11/08/21 21:48 Dose: 50 mg Trolamine Salicylate (Trolamine Salicylate 10 % Cream 85 Gm Tube) 1 appl TOPICAL TID PRN; Protocol PRN Reason: Pain, Mild (Pain Scale 1-3) Last Admin: 11/08/21 09:40 Dose: 1 appl Allergies Allergies Allergy/AdvReac Type Severity Reaction Status Date / Time olanzapine [From Zyprexa] Allergy Unknown Verified 09/03/21 14:49 prednisone Allergy Unknown Verified 09/03/21 14:49 NSAIDS (Non-Steroidal AdvReac Mild Abdominal Verified 09/03/21 14:49 Anti-Inflamma Pain Assessment & Plan Assessment & Plan (1) Schizophrenia, chronic condition: Status: Acute Code(s): F20.9 - Schizophrenia, unspecified Plan 55 years old lady with PMH of CKD 2, systolic CHF, schizophrenia, diabetes and hypertension who presents to the hospital for psychiatric illness admitted to the psych floor. Hospitalist team contacted for evaluation of elevated blood pressure readings. Uncontrolled hypertension Blood pressure seems to be elevated on multiple readings during the hospital stay Start losartan 25 mg daily given the patient history of diabetes continue carvedilol and torsemide current doses Hx HFrEF Continue home medications of carvedilol, torsemide Losartan should hopefully help CKD type 2 Continue to monitor kidney function after starting losartan Thank you for the consult, please contact hospitalist team for any further questions. 11/11- carbamazepine d/c due to LFT and Alkph elevation repeat labs in 2 days. I spent minutes with the patient and/or on the patient floor today, greater than?50% of which was spent counseling/coordinating care. Reason for contiued inpatient stay Substantial Risk for: inability to function
[2021-11-11] MEDS: Nicotine Polacrilex 2 MG GUM BUCCAL ×2 (12:39→21:02)
[2021-11-11 12:48] LABS: Glucose, Whole Blood 135 mg/dL (60-115)
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
[2021-11-11 18:00] VITALS: BP 171/124; PULSE 117
[2021-11-11] MEDS: Losartan Potassium 25 MG TABLET PO (18:04)
[2021-11-11 18:14] LABS: Glucose, Whole Blood 112 mg/dL (60-115)
[2021-11-11 18:43] LABS: Lipase 18 U/L (8-78)
[2021-11-11 20:57] LABS: Glucose, Whole Blood 177 mg/dL (60-115)
[2021-11-11] MEDS: Insulin Lispro 100 UNIT/ML 3 ML VIAL SUBCUT (21:01)
[2021-11-11 21:10] VITALS: BP 152/105; PULSE 101; TEMP 36.6; O2SAT 91
[2021-11-12 06:00] VITALS: BP 174/94; PULSE 85; RESP 16; TEMP 36.6; O2SAT 98
[2021-11-12 07:00] VITALS: BMI 29.5
[2021-11-12 08:27] LABS: Glucose, Whole Blood 114 mg/dL (60-115)
[2021-11-12] MEDS: Acetaminophen 325 MG TABLET 650 MG PO ×3 (09:27→21:41)
[2021-11-12] MEDS: Insulin Glargine,Hum.rec.anlog 100 UNIT/ML 10 ML VIAL 16 UNIT SUBCUT (09:27)
[2021-11-12] MEDS: Lactulose 20 GM/30 ML SOLUTION PO (09:27)
[2021-11-12] MEDS: Nicotine 21 MG PATCH.TD24 TRANSDERMA (09:27)
[2021-11-12] MEDS: Magnesium Oxide 400 MG TABLET PO ×2 (09:28→17:58)
[2021-11-12] MEDS: Folic Acid 1 MG TABLET PO (09:28)
[2021-11-12] MEDS: Multivitamin TABLET 1 TAB PO (09:28)
[2021-11-12] MEDS: Losartan Potassium 25 MG TABLET PO (09:28)
[2021-11-12] MEDS: risperiDONE 2 MG TABLET PO ×2 (09:28→21:41)
[2021-11-12] MEDS: Lipase/Prot/Amylase 24/76/120K 1 CAP CAPSULE.DR PO ×3 (09:28→17:58)
[2021-11-12] MEDS: Omeprazole 20 MG CAPSULE.DR PO (09:28)
[2021-11-12] MEDS: carvediloL 6.25 MG TABLET PO ×2 (09:29→21:41)
[2021-11-12] MEDS: Loratadine 10 MG TABLET PO (09:29)
[2021-11-12] MEDS: Torsemide 20 MG TABLET PO ×2 (09:29→18:07)
[2021-11-12] MEDS: Divalproex Sodium ER 250 MG TAB.ER.24H PO (10:12)
[2021-11-12 13:49] LABS: Glucose, Whole Blood 143 mg/dL (60-115)
[2021-11-12] MEDS: Throat Lozenge, Medicated LOZENGE 1 LOZENGE MUCOUS MEM ×2 (13:50→15:46)
--- NOTE | 2021-11-12 14:22 | P.PNPSI_ITS ---
Subjective Subjective Date of Service: 11/12/21 Reason For Visit: Psychosis Interim History: found lying in bed, calm, cooperative. states she had just had her depakote and that tends to make her a little tired so she was resting. did not seem to want to speak with MD otherwise, stating she has no questions or complaints. she then asks about eyedrops she was taking at [facility] for blurry vision related to DM, which she found very helpful. per staff, not interested in speaking with staff. slept all shift eves. BP elevated, started losartan. Mental Status Exam Mental Status Exam Narrative: In hospital attire, hair short, unkempt. Good eye contact, attentive. No Tics or Tremors. No abnormal involuntary movements. calm and cooperative. nml rate, amount of speech. nml loudness, nml prosody, nml latency. affect is constricted, normo-intense, non-labile. no SI/HI/AVH expressed. Thoughts are more organized and not indicative of paranoid delusions in brief interaction. No known cognitive or memory impairment. Insight/ Judgment impaired. Diagnostics Vital Signs (24Hr): Vital Signs - 24 hr 11/11/21 18:00 11/11/21 21:10 11/12/21 06:00 Temperature 97.8 F 97.8 F Pulse Rate 117 H 101 H 85 Respiratory Rate 16 Blood Pressure 171/124 H 152/105 H 174/94 H Pulse Oximetry 91 L 98 Oxygen Delivery Method Room Air Room Air BMI result Body Mass Index 29.7 Labs Results: 10/28/21 12:47 11/11/21 10:14 Labs: Laboratory Results - last 48 hr 11/10/21 11/10/21 11/11/21 17:54 20:33 08:17 Sodium Potassium Chloride Carbon Dioxide Anion Gap BUN Creatinine Estim Creat Clear Calc Estimated GFR POC Glucose 173 H 173 H 93 Random Glucose Calcium Total Bilirubin AST ALT Alkaline Phosphatase B-Natriuretic Peptide Total Protein Albumin Lipase 11/11/21 11/11/21 11/11/21 10:14 10:14 12:41 Sodium 138 Potassium 4.1 Chloride 98 Carbon Dioxide 25 Anion Gap 19 BUN 19 H Creatinine 1.01 Estim Creat Clear Calc 74.8 Estimated GFR 57 POC Glucose 135 H Random Glucose 151 H Calcium 9.7 Total Bilirubin 0.7 AST 99 H ALT 130 H Alkaline Phosphatase 332 H D B-Natriuretic Peptide 36 Total Protein 7.7 Albumin 4.0 Lipase 18 11/11/21 11/11/21 11/12/21 18:07 20:52 08:19 Sodium Potassium Chloride Carbon Dioxide Anion Gap BUN Creatinine Estim Creat Clear Calc Estimated GFR POC Glucose 112 177 H 114 Random Glucose Calcium Total Bilirubin AST ALT Alkaline Phosphatase B-Natriuretic Peptide Total Protein Albumin Lipase 11/12/21 13:45 Sodium Potassium Chloride Carbon Dioxide Anion Gap BUN Creatinine Estim Creat Clear Calc Estimated GFR POC Glucose 143 H Random Glucose Calcium Total Bilirubin AST ALT Alkaline Phosphatase B-Natriuretic Peptide Total Protein Albumin Lipase Medications Medications Current Medications Acetaminophen (Acetaminophen 325 Mg Tablet) 650 mg PO TID MARI Last Admin: 11/12/21 09:27 Dose: 650 mg Al Hydroxide/Mg Hydroxide (Magnesium Hydrox/Alum Hydrox 30 Ml Oral.Susp) 30 ml PO Q6H PRN PRN Reason: Heartburn/Nausea Last Admin: 11/09/21 11:06 Dose: 30 ml Lipase/Protease/Amylase (Lipase/Prot/Amylase 24/76/120k 1 Cap Capsule.Dr) 1 cap PO TIDWM [facility] Last Admin: 11/12/21 13:50 Dose: 1 cap Benzocaine (Throat Lozenge, Medicated Lozenge) 1 lozenge MUCOUS MEM Q2H PRN PRN Reason: Sore Throat Last Admin: 11/12/21 13:50 Dose: 1 lozenge Carvedilol (Carvedilol 6.25 Mg Tablet) 6.25 mg PO BID MARI; Protocol Last Admin: 11/12/21 09:29 Dose: 6.25 mg Chlorpromazine HCl (Chlorpromazine Hcl 25 Mg Tablet) 25 mg PO Q6H PRN PRN Reason: agitation, psychosis Last Admin: 11/09/21 11:45 Dose: 25 mg Chlorpromazine HCl (Chlorpromazine Hcl 25 Mg Tablet) 50 mg PO Q4H PRN PRN Reason: severe agitation Last Admin: 11/10/21 15:13 Dose: 50 mg Clonidine HCl (Clonidine Hcl 0.2 Mg Tablet) 0.2 mg PO BID PRN; Protocol PRN Reason: hyperarousal, htn Last Admin: 11/10/21 19:33 Dose: 0.2 mg Divalproex Sodium (Divalproex Sodium Er 250 Mg Tab.Er.24h) 250 mg PO DAILY [facility] Last Admin: 11/12/21 10:12 Dose: 250 mg Divalproex Sodium (Divalproex Sodium Er 500 Mg Tab.Er.24h) 500 mg PO BEDTIME [facility] Folic Acid (Folic Acid 1 Mg Tablet) 1 mg PO DAILY [facility] Last Admin: 11/12/21 09:28 Dose: 1 mg Guaifenesin/Dextromethorphan (Guaifenesin Dm 600/30 1 Tab Tab.Er.12h) 1 tab PO BID PRN PRN Reason: congestion Last Admin: 10/30/21 21:37 Dose: 1 tab Insulin Glargine (Insulin Glargine,Hum.Rec.Anlog 100 Unit/Ml 10 Ml Vial) 16 unit SUBCUT DAILY [facility] Last Admin: 11/12/21 09:27 Dose: 16 unit Insulin Human Lispro (Insulin Lispro 100 Unit/Ml 3 Ml Vial) 0 unit SUBCUT QIDACHS [facility]; Protocol Last Admin: 11/12/21 13:50 Dose: Not Given Lactulose (Lactulose 20 Gm/30 Ml Solution) 20 gm PO BID [facility] Last Admin: 11/12/21 09:27 Dose: 20 gm Loratadine (Loratadine 10 Mg Tablet) 10 mg PO DAILY [facility] Last Admin: 11/12/21 09:29 Dose: 10 mg Losartan Potassium (Losartan Potassium 25 Mg Tablet) 25 mg PO DAILY [facility]; Protocol Last Admin: 11/12/21 09:28 Dose: 25 mg Magnesium Hydroxide (Milk Of Magnesia 30 Ml Oral.Susp) 30 ml PO DAILY PRN PRN Reason: Constipation Last Admin: 11/05/21 23:30 Dose: 30 ml Magnesium Oxide (Magnesium Oxide 400 Mg Tablet) 400 mg PO BIDPC [facility] Last Admin: 11/12/21 09:28 Dose: 400 mg Melatonin (Melatonin 3 Mg Tablet) 3 mg PO BEDTIME PRN PRN Reason: insomnia Last Admin: 11/08/21 21:49 Dose: 3 mg Multivitamins/Vitamin C (Multivitamin Tablet) 1 tab PO DAILY [facility] Last Admin: 11/12/21 09:28 Dose: 1 tab Nicotine (Nicotine 21 Mg Patch.Td24) 21 mg TRANSDERMA DAILY [facility] Last Admin: 11/12/21 09:27 Dose: 21 mg Nicotine Polacrilex (Nicotine Polacrilex 2 Mg Gum) 2 mg BUCCAL Q2H PRN PRN Reason: Nicotine Cravings Last Admin: 11/11/21 21:02 Dose: 2 mg Omeprazole (Omeprazole 20 Mg Capsule.Dr) 20 mg PO DAILY@0630 [facility] Last Admin: 11/12/21 09:28 Dose: 20 mg Risperidone (Risperidone 2 Mg Tablet) 2 mg PO BEDTIME [facility] Last Admin: 11/11/21 21:03 Dose: 2 mg Risperidone (Risperidone 2 Mg Tablet) 2 mg PO DAILY [facility] Last Admin: 11/12/21 09:28 Dose: 2 mg Torsemide (Torsemide 20 Mg Tablet) 20 mg PO BIDWM [facility]; Protocol Last Admin: 11/12/21 09:29 Dose: 20 mg Trazodone HCl (Trazodone Hcl 50 Mg Tablet) 50 mg PO BEDTIME PRN PRN Reason: Insomnia Last Admin: 11/08/21 21:48 Dose: 50 mg Trolamine Salicylate (Trolamine Salicylate 10 % Cream 85 Gm Tube) 1 appl TOPICAL TID PRN; Protocol PRN Reason: Pain, Mild (Pain Scale 1-3) Last Admin: 11/08/21 09:40 Dose: 1 appl Allergies Allergies Allergy/AdvReac Type Severity Reaction Status Date / Time olanzapine [From Zyprexa] Allergy Unknown Verified 09/03/21 14:49 prednisone Allergy Unknown Verified 09/03/21 14:49 NSAIDS (Non-Steroidal AdvReac Mild Abdominal Verified 09/03/21 14:49 Anti-Inflamma Pain Assessment & Plan Assessment & Plan (1) Schizophrenia, chronic condition: Status: Acute Code(s): F20.9 - Schizophrenia, unspecified (2) HTN (hypertension): Status: Acute Code(s): I10 - Essential (primary) hypertension Assessment and Plan: 55 years old lady with PMH of CKD 2, systolic CHF, schizophrenia, diabetes and hypertension who presents to the hospital for psychiatric illness admitted to the psych floor. Hospitalist team contacted for evaluation of elevated blood pressure readings. Uncontrolled hypertension Blood pressure seems to be elevated on multiple readings during the hospital stay Start losartan 25 mg daily given the patient history of diabetes continue carvedilol and torsemide current doses Hx HFrEF Continue home medications of carvedilol, torsemide Losartan should hopefully help CKD type 2 Continue to monitor kidney function after starting losartan Thank you for the consult, please contact hospitalist team for any further questions. Amanda Hay is a 55 y.o. Female who carries a dx of schizophrenia. She presented to [facility] ED on 10/28/2021 due to psychosis, disorganized and decompensated. Recent discharge from [facility] in 08/2021 for decompensation in psychosis in context of recent hospitalization for pneumnonia superimposed on CHF. Utox negative except for fentanyl. No alcohol abuse. Hx of IPLOC, multiple previous admissions for paranoia. Hx of DMH. In the ED, VPA was 34.4. Utox positive for fentanyl, salicylate level 6.3 (later decreased to <5.0), acetaminophen 2.? 10/29:? Pt asks to be put back on thorazine, as she says this med helps with agitation and sleep. Will start 25 mg Q6H PRN. Pt has been non-adherent with psych meds prior to admission, will re-start home meds and monitor for benefit. 10/30: no change in regimen.? less paranoid and more organized than yesterday. ?10/31/2021: No changes to current treatment plan.? Gradually improving and just restarted medications 11/01: Arthritis pain- Started Aspercream yesterday. Not on scheduled tylenol (will schedule). Feels gabapentin not helpful. 11/02 continue current medications. 11/03 continue current medications. 11/04- pt with several medical conditions ranging from CDK, liver cirrhosis, qtc prolongation which limits options in terms of medications. Will increase risperidone to 1mg po daily and 2mg po qhs- monitor closely Qtc with each increase of medications. Will d/c abilify- d/c depakote hx of hyper ammonia 11/05 continue current medications, qtc wnl. 11/06 continue current medications. 11/07 Per staff, pt worse, more paranoid, increased risperdal to 2 mg BID and will discontinue cogentin, as pt was on this when she was taking abilify and may not longer need it, reduce anticholinergic SE. 11/08: No med changes, order EKG 11/09: QT 500.? labile, delusional, irritable - essentially becoming manic.? VPA was DCed 11/04 due to reported h/o hyperammonemia.? will start tegretol as pt clearly needs a mood stabilizer at this point.? will follow QTc.? if mood stabilizer effective may be able to reduce neuroleptic dosing. 11/10: affectively much improved today.? continue current regimen.? medicine consult for severe HTN. 11/11- carbamazepine d/c due to LFT and Alkph elevation repeat labs in 2 days. 11/12: 2 ammonia levels at [facility] while pt on VPA, both WNL. will restart VPA as pt had been on it for a long time without apparent issue. will check ammonia levels with VPA levels. calm and stable today. I spent ___20___ minutes with the patient and/or on the patient floor today, greater than?50% of which was spent counseling/coordinating care. Reason for contiued inpatient stay Substantial Risk for: inability to function and rapid decompensation
[2021-11-12] MEDS: Nicotine Polacrilex 2 MG GUM BUCCAL ×2 (17:25→20:21)
[2021-11-12 17:48] LABS: Glucose, Whole Blood 124 mg/dL (60-115)
[2021-11-12 18:00] VITALS: BP 199/111
[2021-11-12 18:05] VITALS: BP 193/109
[2021-11-12] MEDS: cloNIDine HCL 0.2 MG TABLET PO (18:19)
[2021-11-12 20:46] LABS: Glucose, Whole Blood 219 mg/dL (60-115)
[2021-11-12] MEDS: Divalproex Sodium ER 500 MG TAB.ER.24H PO (21:41)
[2021-11-12] MEDS: Insulin Lispro 100 UNIT/ML 3 ML VIAL SUBCUT (21:47)
[2021-11-13 00:20] VITALS: BP 123/67; PULSE 82
[2021-11-13 08:54] LABS: Glucose, Whole Blood 164 mg/dL (60-115)
[2021-11-13 08:56] VITALS: BP 149/75; PULSE 95; TEMP 36.3; O2SAT 94
[2021-11-13] MEDS: Lactulose 20 GM/30 ML SOLUTION PO (09:14)
[2021-11-13] MEDS: Insulin Glargine,Hum.rec.anlog 100 UNIT/ML 10 ML VIAL 16 UNIT SUBCUT (09:14)
[2021-11-13] MEDS: carvediloL 6.25 MG TABLET PO ×2 (09:15→20:45)
[2021-11-13] MEDS: Magnesium Oxide 400 MG TABLET PO ×2 (09:15→17:40)
[2021-11-13] MEDS: Torsemide 20 MG TABLET PO ×2 (09:15→17:39)
[2021-11-13] MEDS: Divalproex Sodium ER 250 MG TAB.ER.24H PO (09:15)
[2021-11-13] MEDS: Folic Acid 1 MG TABLET PO (09:15)
[2021-11-13] MEDS: Lipase/Prot/Amylase 24/76/120K 1 CAP CAPSULE.DR PO ×3 (09:15→17:39)
[2021-11-13] MEDS: Multivitamin TABLET 1 TAB PO (09:15)
[2021-11-13] MEDS: Loratadine 10 MG TABLET PO (09:15)
[2021-11-13] MEDS: Insulin Lispro 100 UNIT/ML 3 ML VIAL SUBCUT ×4 (09:15→20:46)
[2021-11-13] MEDS: Acetaminophen 325 MG TABLET 650 MG PO ×2 (09:16→17:45)
[2021-11-13] MEDS: risperiDONE 2 MG TABLET PO ×2 (09:17→20:46)
[2021-11-13] MEDS: Losartan Potassium 25 MG TABLET PO (09:17)
[2021-11-13] MEDS: Omeprazole 20 MG CAPSULE.DR PO (09:17)
--- NOTE | 2021-11-13 11:13 | P.PNPSI_ITS ---
Subjective Subjective Date of Service: 11/13/21 Reason For Visit: Psychosis Subjective Notes: Conditional Voluntary Interim History: Pt continues to report paranoia towards peers, thinks other on the unit are talking about her. She is upset about it. She denies SI/HI. She has been visible on the unit, at times yelling at peers as she thinks they are talking about her. Taking medications as prescribed. Review of Systems Review of Systems No fever, chills or weakness No chest pain, palpitation No shortness of breath or coughing No abdominal pain, nausea or vomiting No urinary symptoms No any rash or wounds Yes all other systems are reviewed and are negative Mental Status Exam Mental Status Exam Narrative: In hospital attire, hair short, unkempt. Good eye contact, attentive. No Tics or Tremors. No abnormal involuntary movements. calm and cooperative. nml rate, amount of speech. nml loudness, nml prosody, nml latency. affect is constricted, normo-intense, non-labile. no SI/HI/AVH expressed. Thoughts are more organized and not indicative of paranoid delusions in brief interaction. No known cognitive or memory impairment. Insight/ Judgment impaired. Diagnostics Vital Signs (24Hr): Vital Signs - 24 hr 11/13/21 08:56 11/13/21 20:40 Temperature 97.4 F 97 F Pulse Rate 95 96 Respiratory Rate 18 Blood Pressure 149/75 H 141/96 H Pulse Oximetry 94 94 Oxygen Delivery Method Room Air Room Air BMI result Body Mass Index 29.5 Labs Results: 10/28/21 12:47 11/11/21 10:14 Labs: Laboratory Results - last 48 hr 11/12/21 11/12/21 11/12/21 08:19 13:45 17:42 POC Glucose 114 143 H 124 H 11/12/21 11/13/21 11/13/21 20:34 08:50 11:56 POC Glucose 219 H 164 H 157 H 11/13/21 11/13/21 16:54 20:20 POC Glucose 159 H 209 H Medications Medications Current Medications Acetaminophen (Acetaminophen 325 Mg Tablet) 650 mg PO TID MARI Last Admin: 11/13/21 17:45 Dose: 650 mg Al Hydroxide/Mg Hydroxide (Magnesium Hydrox/Alum Hydrox 30 Ml Oral.Susp) 30 ml PO Q6H PRN PRN Reason: Heartburn/Nausea Last Admin: 11/13/21 17:44 Dose: 30 ml Lipase/Protease/Amylase (Lipase/Prot/Amylase 24/76/120k 1 Cap Capsule.Dr) 1 cap PO TIDWM [facility] Last Admin: 11/13/21 17:39 Dose: 1 cap Benzocaine (Throat Lozenge, Medicated Lozenge) 1 lozenge MUCOUS MEM Q2H PRN PRN Reason: Sore Throat Last Admin: 11/12/21 15:46 Dose: 1 lozenge Carvedilol (Carvedilol 6.25 Mg Tablet) 6.25 mg PO BID [facility]; Protocol Last Admin: 11/13/21 20:45 Dose: 6.25 mg Chlorpromazine HCl (Chlorpromazine Hcl 25 Mg Tablet) 25 mg PO Q6H PRN PRN Reason: agitation, psychosis Last Admin: 11/09/21 11:45 Dose: 25 mg Chlorpromazine HCl (Chlorpromazine Hcl 25 Mg Tablet) 50 mg PO Q4H PRN PRN Reason: severe agitation Last Admin: 11/13/21 17:44 Dose: 50 mg Divalproex Sodium (Divalproex Sodium Er 250 Mg Tab.Er.24h) 250 mg PO DAILY [facility] Last Admin: 11/13/21 09:15 Dose: 250 mg Divalproex Sodium (Divalproex Sodium Er 500 Mg Tab.Er.24h) 500 mg PO BEDTIME [facility] Last Admin: 11/13/21 20:45 Dose: 500 mg Folic Acid (Folic Acid 1 Mg Tablet) 1 mg PO DAILY [facility] Last Admin: 11/13/21 09:15 Dose: 1 mg Guaifenesin/Dextromethorphan (Guaifenesin Dm 600/30 1 Tab Tab.Er.12h) 1 tab PO BID PRN PRN Reason: congestion Last Admin: 10/30/21 21:37 Dose: 1 tab Insulin Glargine (Insulin Glargine,Hum.Rec.Anlog 100 Unit/Ml 10 Ml Vial) 16 unit SUBCUT DAILY [facility] Last Admin: 11/13/21 09:14 Dose: 16 unit Insulin Human Lispro (Insulin Lispro 100 Unit/Ml 3 Ml Vial) 0 unit SUBCUT QIDACHS [facility]; Protocol Last Admin: 11/13/21 20:46 Dose: 4 unit Lactulose (Lactulose 20 Gm/30 Ml Solution) 20 gm PO BID [facility] Last Admin: 11/13/21 20:49 Dose: Not Given Loratadine (Loratadine 10 Mg Tablet) 10 mg PO DAILY [facility] Last Admin: 11/13/21 09:15 Dose: 10 mg Losartan Potassium (Losartan Potassium 25 Mg Tablet) 25 mg PO DAILY [facility]; Protocol Last Admin: 11/13/21 09:17 Dose: 25 mg Magnesium Hydroxide (Milk Of Magnesia 30 Ml Oral.Susp) 30 ml PO DAILY PRN PRN Reason: Constipation Last Admin: 11/05/21 23:30 Dose: 30 ml Magnesium Oxide (Magnesium Oxide 400 Mg Tablet) 400 mg PO BIDPC [facility] Last Admin: 11/13/21 17:40 Dose: 400 mg Melatonin (Melatonin 3 Mg Tablet) 3 mg PO BEDTIME PRN PRN Reason: insomnia Last Admin: 11/08/21 21:49 Dose: 3 mg Multivitamins/Vitamin C (Multivitamin Tablet) 1 tab PO DAILY [facility] Last Admin: 11/13/21 09:15 Dose: 1 tab Nicotine (Nicotine 21 Mg Patch.Td24) 21 mg TRANSDERMA DAILY [facility] Last Admin: 11/13/21 09:31 Dose: Not Given Nicotine Polacrilex (Nicotine Polacrilex 2 Mg Gum) 2 mg BUCCAL Q2H PRN PRN Reason: Nicotine Cravings Last Admin: 11/13/21 19:38 Dose: 2 mg Omeprazole (Omeprazole 20 Mg Capsule.Dr) 20 mg PO DAILY@0630 [facility] Last Admin: 11/13/21 09:17 Dose: 20 mg Risperidone (Risperidone 2 Mg Tablet) 2 mg PO BEDTIME [facility] Last Admin: 11/13/21 20:46 Dose: 2 mg Risperidone (Risperidone 2 Mg Tablet) 2 mg PO DAILY [facility] Last Admin: 11/13/21 09:17 Dose: 2 mg Torsemide (Torsemide 20 Mg Tablet) 20 mg PO BIDWM [facility]; Protocol Last Admin: 11/13/21 17:39 Dose: 20 mg Trazodone HCl (Trazodone Hcl 50 Mg Tablet) 50 mg PO BEDTIME PRN PRN Reason: Insomnia Last Admin: 11/08/21 21:48 Dose: 50 mg Trolamine Salicylate (Trolamine Salicylate 10 % Cream 85 Gm Tube) 1 appl TOPICAL TID PRN; Protocol PRN Reason: Pain, Mild (Pain Scale 1-3) Last Admin: 11/08/21 09:40 Dose: 1 appl Allergies Allergies Allergy/AdvReac Type Severity Reaction Status Date / Time olanzapine [From Zyprexa] Allergy Unknown Verified 09/03/21 14:49 prednisone Allergy Unknown Verified 09/03/21 14:49 NSAIDS (Non-Steroidal AdvReac Mild Abdominal Verified 09/03/21 14:49 Anti-Inflamma Pain Assessment & Plan Assessment & Plan (1) Schizophrenia, chronic condition: Status: Acute Code(s): F20.9 - Schizophrenia, unspecified (2) HTN (hypertension): Status: Acute Code(s): I10 - Essential (primary) hypertension Assessment and Plan: 55 years old lady with PMH of CKD 2, systolic CHF, schizophrenia, diabetes and hypertension who presents to the hospital for psychiatric illness admitted to the psych floor. Hospitalist team contacted for evaluation of elevated blood pressure readings. Uncontrolled hypertension Blood pressure seems to be elevated on multiple readings during the hospital stay Start losartan 25 mg daily given the patient history of diabetes continue carvedilol and torsemide current doses Hx HFrEF Continue home medications of carvedilol, torsemide Losartan should hopefully help CKD type 2 Continue to monitor kidney function after starting losartan Thank you for the consult, please contact hospitalist team for any further questions. Amanda Hay is a 55 y.o. Female who carries a dx of schizophrenia. She presented to [facility] on 10/28/[place]21 due to psychosis, disorganized and decompensated. Recent discharge from [facility] in 08/2021 for decompensation in psychosis in context of recent hospitalization for pneumnonia superimposed on CHF. Utox negative except for fentanyl. No alcohol abuse. Hx of IPLOC, multiple previous admissions for paranoia. Hx of DMH. In the ED, VPA was 34.4. Utox positive for fentanyl, salicylate level 6.3 (later decreased to <5.0), acetaminophen 2.? 10/29:? Pt asks to be put back on thorazine, as she says this med helps with agitation and sleep. Will start 25 mg Q6H PRN. Pt has been non-adherent with psych meds prior to admission, will re-start home meds and monitor for benefit. 10/30: no change in regimen.? less paranoid and more organized than yesterday. ?10/31/2021: No changes to current treatment plan.? Gradually improving and just restarted medications 11/01: Arthritis pain- Started Aspercream yesterday. Not on scheduled tylenol (will schedule). Feels gabapentin not helpful. 11/02 continue current medications. 11/03 continue current medications. 11/04- pt with several medical conditions ranging from CDK, liver cirrhosis, qtc prolongation which limits options in terms of medications. Will increase risperidone to 1mg po daily and 2mg po qhs- monitor closely Qtc with each increase of medications. Will d/c abilify- d/c depakote hx of hyper ammonia 11/05 continue current medications, qtc wnl. 11/06 continue current medications. 11/07 Per staff, pt worse, more paranoid, increased risperdal to 2 mg BID and will discontinue cogentin, as pt was on this when she was taking abilify and may not longer need it, reduce anticholinergic SE. 11/08: No med changes, order EKG 11/09: QT 500.? labile, delusional, irritable - essentially becoming manic.? VPA was DCed 11/04 due to reported h/o hyperammonemia.? will start tegretol as pt clearly needs a mood stabilizer at this point.? will follow QTc.? if mood stabilizer effective may be able to reduce neuroleptic dosing. 11/10: affectively much improved today.? continue current regimen.? medicine consult for severe HTN. 11/11- carbamazepine d/c due to LFT and Alkph elevation repeat labs in 2 days. 11/12: 2 ammonia levels at [facility] [place] pt on VPA, both WNL. will restart VPA as pt had been on it for a long time without apparent issue. will check ammonia levels with VPA levels. calm and stable today. 11/13 continue current medications. I spent minutes with the patient and/or on the patient floor today, greater than?50% of which was spent counseling/coordinating care. Reason for contiued inpatient stay Substantial Risk for: inability to function
[2021-11-13 12:00] LABS: Glucose, Whole Blood 157 mg/dL (60-115)
[2021-11-13] MEDS: Nicotine Polacrilex 2 MG GUM BUCCAL ×2 (13:20→19:38)
[2021-11-13 16:59] LABS: Glucose, Whole Blood 159 mg/dL (60-115)
[2021-11-13] MEDS: chlorproMAZINE HCl 25 MG TABLET 50 MG PO (17:44)
[2021-11-13] MEDS: Magnesium Hydrox/Alum Hydrox 30 ML ORAL.SUSP PO (17:44)
[2021-11-13 20:24] LABS: Glucose, Whole Blood 209 mg/dL (60-115)
[2021-11-13 20:40] VITALS: BP 141/96; PULSE 96; RESP 18; TEMP 36.1; O2SAT 94
[2021-11-13] MEDS: Divalproex Sodium ER 500 MG TAB.ER.24H PO (20:45)
[2021-11-14 08:47] LABS: Glucose, Whole Blood 93 mg/dL (60-115)
[2021-11-14] MEDS: Torsemide 20 MG TABLET PO ×2 (08:55→16:38)
[2021-11-14] MEDS: Divalproex Sodium ER 250 MG TAB.ER.24H PO (08:55)
[2021-11-14] MEDS: Lipase/Prot/Amylase 24/76/120K 1 CAP CAPSULE.DR PO ×3 (08:55→16:38)
[2021-11-14] MEDS: Loratadine 10 MG TABLET PO (08:55)
[2021-11-14] MEDS: Multivitamin TABLET 1 TAB PO (08:55)
[2021-11-14] MEDS: Losartan Potassium 25 MG TABLET PO (08:55)
[2021-11-14] MEDS: Magnesium Oxide 400 MG TABLET PO ×2 (08:55→16:41)
[2021-11-14] MEDS: risperiDONE 2 MG TABLET PO ×2 (08:55→21:01)
[2021-11-14] MEDS: carvediloL 6.25 MG TABLET PO ×2 (08:55→21:01)
[2021-11-14] MEDS: Folic Acid 1 MG TABLET PO (08:55)
[2021-11-14] MEDS: Omeprazole 20 MG CAPSULE.DR PO (08:55)
[2021-11-14] MEDS: Acetaminophen 325 MG TABLET 650 MG PO ×2 (08:55→21:02)
--- NOTE | 2021-11-14 09:01 | HO.PSYCHPN ---
Subjective Subjective Date of Service: 11/14/21 Reason For Visit: Psychosis Subjective Notes: Conditional Voluntary Interim History: Patient was seen and discussed in rounds today. Records and plans were reviewed. She continues to be isolative. Continues to exhibit some paranoid ideations. Eating and sleeping adequately. She is med compliant. Anxious and depressed at times. No complaints or side effects. No SI. No changes were made and regimen is maintained Review of Systems Review of Systems Yes all other systems are reviewed and are negative Diagnostics Vital Signs (24Hr): Vital Signs - 24 hr 11/13/21 20:40 Temperature 97 F Pulse Rate 96 Respiratory Rate 18 Blood Pressure 141/96 H Pulse Oximetry 94 Oxygen Delivery Method Room Air BMI result Body Mass Index 29.5 Labs Results: 10/28/21 12:47 11/11/21 10:14 Labs: Laboratory Results - last 48 hr 11/12/21 11/12/21 11/12/21 13:45 17:42 20:34 POC Glucose 143 H 124 H 219 H 11/13/21 11/13/21 11/13/21 08:50 11:56 16:54 POC Glucose 164 H 157 H 159 H 11/13/21 11/14/21 20:20 08:42 POC Glucose 209 H 93 Medications Medications Current Medications Acetaminophen (Acetaminophen 325 Mg Tablet) 650 mg PO TID [facility] Last Admin: 11/13/21 17:45 Dose: 650 mg Al Hydroxide/Mg Hydroxide (Magnesium Hydrox/Alum Hydrox 30 Ml Oral.Susp) 30 ml PO Q6H PRN PRN Reason: Heartburn/Nausea Last Admin: 11/13/21 17:44 Dose: 30 ml Lipase/Protease/Amylase (Lipase/Prot/Amylase 24/76/120k 1 Cap Capsule.Dr) 1 cap PO TIDWM [facility] Last Admin: 11/13/21 17:39 Dose: 1 cap Benzocaine (Throat Lozenge, Medicated Lozenge) 1 lozenge MUCOUS MEM Q2H PRN PRN Reason: Sore Throat Last Admin: 11/12/21 15:46 Dose: 1 lozenge Carvedilol (Carvedilol 6.25 Mg Tablet) 6.25 mg PO BID [facility]; Protocol Last Admin: 11/13/21 20:45 Dose: 6.25 mg Chlorpromazine HCl (Chlorpromazine Hcl 25 Mg Tablet) 25 mg PO Q6H PRN PRN Reason: agitation, psychosis Last Admin: 11/09/21 11:45 Dose: 25 mg Chlorpromazine HCl (Chlorpromazine Hcl 25 Mg Tablet) 50 mg PO Q4H PRN PRN Reason: severe agitation Last Admin: 11/13/21 17:44 Dose: 50 mg Divalproex Sodium (Divalproex Sodium Er 250 Mg Tab.Er.24h) 250 mg PO DAILY [facility] Last Admin: 11/13/21 09:15 Dose: 250 mg Divalproex Sodium (Divalproex Sodium Er 500 Mg Tab.Er.24h) 500 mg PO BEDTIME [facility] Last Admin: 11/13/21 20:45 Dose: 500 mg Folic Acid (Folic Acid 1 Mg Tablet) 1 mg PO DAILY [facility] Last Admin: 11/13/21 09:15 Dose: 1 mg Guaifenesin/Dextromethorphan (Guaifenesin Dm 600/30 1 Tab Tab.Er.12h) 1 tab PO BID PRN PRN Reason: congestion Last Admin: 10/30/21 21:37 Dose: 1 tab Insulin Glargine (Insulin Glargine,Hum.Rec.Anlog 100 Unit/Ml 10 Ml Vial) 16 unit SUBCUT DAILY [facility] Last Admin: 11/13/21 09:14 Dose: 16 unit Insulin Human Lispro (Insulin Lispro 100 Unit/Ml 3 Ml Vial) 0 unit SUBCUT QIDACHS [facility]; Protocol Last Admin: 11/13/21 20:46 Dose: 4 unit Lactulose (Lactulose 20 Gm/30 Ml Solution) 20 gm PO BID [facility] Last Admin: 11/13/21 20:49 Dose: Not Given Loratadine (Loratadine 10 Mg Tablet) 10 mg PO DAILY [facility] Last Admin: 11/13/21 09:15 Dose: 10 mg Losartan Potassium (Losartan Potassium 25 Mg Tablet) 25 mg PO DAILY [facility]; Protocol Last Admin: 11/13/21 09:17 Dose: 25 mg Magnesium Hydroxide (Milk Of Magnesia 30 Ml Oral.Susp) 30 ml PO DAILY PRN PRN Reason: Constipation Last Admin: 11/05/21 23:30 Dose: 30 ml Magnesium Oxide (Magnesium Oxide 400 Mg Tablet) 400 mg PO BIDPC [facility] Last Admin: 11/13/21 17:40 Dose: 400 mg Melatonin (Melatonin 3 Mg Tablet) 3 mg PO BEDTIME PRN PRN Reason: insomnia Last Admin: 11/08/21 21:49 Dose: 3 mg Multivitamins/Vitamin C (Multivitamin Tablet) 1 tab PO DAILY [facility] Last Admin: 11/13/21 09:15 Dose: 1 tab Nicotine (Nicotine 21 Mg Patch.Td24) 21 mg TRANSDERMA DAILY [facility] Last Admin: 11/13/21 09:31 Dose: Not Given Nicotine Polacrilex (Nicotine Polacrilex 2 Mg Gum) 2 mg BUCCAL Q2H PRN PRN Reason: Nicotine Cravings Last Admin: 11/13/21 19:38 Dose: 2 mg Omeprazole (Omeprazole 20 Mg Capsule.Dr) 20 mg PO DAILY@0630 [facility] Last Admin: 11/13/21 09:17 Dose: 20 mg Risperidone (Risperidone 2 Mg Tablet) 2 mg PO BEDTIME [facility] Last Admin: 11/13/21 20:46 Dose: 2 mg Risperidone (Risperidone 2 Mg Tablet) 2 mg PO DAILY [facility] Last Admin: 11/13/21 09:17 Dose: 2 mg Torsemide (Torsemide 20 Mg Tablet) 20 mg PO BIDWM [facility]; Protocol Last Admin: 11/13/21 17:39 Dose: 20 mg Trazodone HCl (Trazodone Hcl 50 Mg Tablet) 50 mg PO BEDTIME PRN PRN Reason: Insomnia Last Admin: 11/08/21 21:48 Dose: 50 mg Trolamine Salicylate (Trolamine Salicylate 10 % Cream 85 Gm Tube) 1 appl TOPICAL TID PRN; Protocol PRN Reason: Pain, Mild (Pain Scale 1-3) Last Admin: 11/08/21 09:40 Dose: 1 appl Allergies Allergies Allergy/AdvReac Type Severity Reaction Status Date / Time olanzapine [From Zyprexa] Allergy Unknown Verified 09/03/21 14:49 prednisone Allergy Unknown Verified 09/03/21 14:49 NSAIDS (Non-Steroidal AdvReac Mild Abdominal Verified 09/03/21 14:49 Anti-Inflamma Pain Assessment & Plan Assessment & Plan (1) Schizophrenia, chronic condition: Status: Acute Code(s): F20.9 - Schizophrenia, unspecified (2) HTN (hypertension): Status: Acute Code(s): I10 - Essential (primary) hypertension Assessment and Plan: 55 years old lady with PMH of CKD 2, systolic CHF, schizophrenia, diabetes and hypertension who presents to the hospital for psychiatric illness admitted to the psych floor. Hospitalist team contacted for evaluation of elevated blood pressure readings. Uncontrolled hypertension Blood pressure seems to be elevated on multiple readings during the hospital stay Start losartan 25 mg daily given the patient history of diabetes continue carvedilol and torsemide current doses Hx HFrEF Continue home medications of carvedilol, torsemide Losartan should hopefully help CKD type 2 Continue to monitor kidney function after starting losartan Thank you for the consult, please contact hospitalist team for any further questions. Amanda Hay is a 55 y.o. Female who carries a dx of schizophrenia. [place] [facility] [place] due to psychosis, disorganized and decompensated. Recent [place] [facility] [place] for decompensation in psychosis in context of recent hospitalization for pneumnonia superimposed on CHF. Utox negative except for fentanyl. No alcohol abuse. Hx of IPLOC, multiple previous admissions for paranoia. Hx of DMH. In the ED, VPA was 34.4. Utox positive for fentanyl, salicylate level 6.3 (later decreased to <5.0), acetaminophen 2.? 10/29:? Pt asks to be put back on thorazine, as she says this med helps with agitation and sleep. Will start 25 mg Q6H PRN. Pt has been non-adherent with psych meds prior to admission, will re-start home meds and monitor for benefit. 10/30: no change in regimen.? less paranoid and more organized than yesterday. ?10/31/2021: No changes to current treatment plan.? Gradually improving and just restarted medications 11/01: Arthritis pain- Started Aspercream yesterday. Not on scheduled tylenol (will schedule). Feels gabapentin not helpful. 11/02 continue current medications. 11/03 continue current medications. 11/04- pt with several medical conditions ranging from CDK, liver cirrhosis, qtc prolongation which limits options in terms of medications. Will increase risperidone to 1mg po daily and 2mg po qhs- monitor closely Qtc with each increase of medications. Will d/c abilify- d/c depakote hx of hyper ammonia 11/05 continue current medications, qtc wnl. 11/06 continue current medications. 11/07 Per staff, pt worse, more paranoid, increased risperdal to 2 mg BID and will discontinue cogentin, as pt was on this when she was taking abilify and may not longer need it, reduce anticholinergic SE. 11/08: No med changes, order EKG 11/09: QT 500.? labile, delusional, irritable - essentially becoming manic.? VPA was DCed 11/04 due to reported h/o hyperammonemia.? will start tegretol as pt clearly needs a mood stabilizer at this point.? will follow QTc.? if mood stabilizer effective may be able to reduce neuroleptic dosing. 11/10: affectively much improved today.? continue current regimen.? medicine consult for severe HTN. 11/11- carbamazepine d/c due to LFT and Alkph elevation repeat labs in 2 days. 11/12: 2 [place] [facility] [place], both WNL. will restart VPA as pt had been on it for a long time without apparent issue. will check ammonia levels with VPA levels. calm and stable today. 11/13 continue current medications. 11/14: Continue current regimen and plans I spent minutes with the patient and/or on the patient floor today, greater than?50% of which was spent counseling/coordinating care. Reason for contiued inpatient stay Substantial Risk for: med/psych decompensation
[2021-11-14] MEDS: Insulin Glargine,Hum.rec.anlog 100 UNIT/ML 10 ML VIAL 16 UNIT SUBCUT (09:02)
[2021-11-14 10:37] VITALS: BP 157/90; PULSE 94; TEMP 36.3; O2SAT 98
[2021-11-14 12:41] LABS: Glucose, Whole Blood 227 mg/dL (60-115)
[2021-11-14] MEDS: Insulin Lispro 100 UNIT/ML 3 ML VIAL SUBCUT ×2 (13:05→18:12)
[2021-11-14 13:49] LABS: Glucose, Whole Blood 175 mg/dL (60-115)
[2021-11-14] MEDS: Nicotine Polacrilex 2 MG GUM BUCCAL ×2 (14:29→21:05)
[2021-11-14] MEDS: Throat Lozenge, Medicated LOZENGE 1 LOZENGE MUCOUS MEM (15:07)
[2021-11-14 16:50] VITALS: BP 169/82; PULSE 93; TEMP 36.6; O2SAT 95
[2021-11-14 17:10] LABS: Glucose, Whole Blood 160 mg/dL (60-115)
[2021-11-14 20:58] LABS: Glucose, Whole Blood 101 mg/dL (60-115)
[2021-11-14 21:00] VITALS: BP 162/91; PULSE 96; RESP 18; TEMP 36.4; O2SAT 95
[2021-11-14] MEDS: Divalproex Sodium ER 500 MG TAB.ER.24H PO (21:00)
[2021-11-14] MEDS: Trolamine Salicylate 10 % Cream 85 GM TUBE 1 APPL TOPICAL (22:59)
--- NOTE | 2021-11-15 08:03 | P.PNPSI_ITS ---
Subjective Subjective Date of Service: 11/15/21 Reason For Visit: Psychosis Subjective Notes: Conditional Voluntary Healthcare Proxy: No Guardianship: No Medical Problems Affecting Mental Status: No Interim History: Patient was seen and discussed in rounds today. Records and plans were revie wed. She continues to be isolative with moderate depression still present. She is a little less irritable. Very few outbursts. She has a little more social also but continues to be guarded and responding to internal stimuli. Eating and sleeping adequately. Has some ankle edema. No SI. No complaints. No changes were made today Medication Compliance: Yes Side effects from medications: No Review of Systems Review of Systems Ankle edema Yes all other systems are reviewed and are negative Mental Status Exam Mental Status Exam Narrative: In today's visit she is alert, somewhat irritable but responsive. Normal speech. Moderate eye contact. Affect is appropriate and slightly irritable. No acute signs of psychosis. Review denies any auditory or visual hallucinat ions. Somewhat guarded. She did not appear to be responding internal stimuli on observation but is reported to be doing so. No SI. Cognitively is grossly intact and thought processes are a little more organized. Judgment is intact Diagnostics Vital Signs (24Hr): Vital Signs - 24 hr 11/14/21 10:37 11/14/21 16:50 11/14/21 21:00 Temperature 97.3 F 97.8 F 97.6 F Pulse Rate 94 93 96 Respiratory Rate 18 Blood Pressure 157/90 H 169/82 H 162/91 H Pulse Oximetry 98 95 95 Oxygen Delivery Method Room Air Room Air BMI result Body Mass Index 29.5 Labs Results: 10/28/21 12:47 11/11/21 10:14 Labs: Laboratory Results - last 48 hr 11/13/21 11/13/21 11/13/21 08:50 11:56 16:54 POC Glucose 164 H 157 H 159 H 11/13/21 11/14/21 11/14/21 20:20 08:42 12:37 POC Glucose 209 H 93 227 H 11/14/21 11/14/21 11/14/21 13:00 17:03 20:54 POC Glucose 175 H 160 H 101 Medications Medications Current Medications Acetaminophen (Acetaminophen 325 Mg Tablet) 650 mg PO TID [facility] Last Admin: 11/14/21 21:02 Dose: 650 mg Al Hydroxide/Mg Hydroxide (Magnesium Hydrox/Alum Hydrox 30 Ml Oral.Susp) 30 ml PO Q6H PRN PRN Reason: Heartburn/Nausea Last Admin: 11/13/21 17:44 Dose: 30 ml Lipase/Protease/Amylase (Lipase/Prot/Amylase 24/76/120k 1 Cap Capsule.Dr) 1 cap PO TIDWM [facility] Last Admin: 11/14/21 16:38 Dose: 1 cap Benzocaine (Throat Lozenge, Medicated Lozenge) 1 lozenge MUCOUS MEM Q2H PRN PRN Reason: Sore Throat Last Admin: 11/14/21 15:07 Dose: 1 lozenge Carvedilol (Carvedilol 6.25 Mg Tablet) 6.25 mg PO BID [facility]; Protocol Last Admin: 11/14/21 21:01 Dose: 6.25 mg Chlorpromazine HCl (Chlorpromazine Hcl 25 Mg Tablet) 25 mg PO Q6H PRN PRN Reason: agitation, psychosis Last Admin: 11/09/21 11:45 Dose: 25 mg Chlorpromazine HCl (Chlorpromazine Hcl 25 Mg Tablet) 50 mg PO Q4H PRN PRN Reason: severe agitation Last Admin: 11/13/21 17:44 Dose: 50 mg Divalproex Sodium (Divalproex Sodium Er 250 Mg Tab.Er.24h) 250 mg PO DAILY [facility] Last Admin: 11/14/21 08:55 Dose: 250 mg Divalproex Sodium (Divalproex Sodium Er 500 Mg Tab.Er.24h) 500 mg PO BEDTIME [facility] Last Admin: 11/14/21 21:00 Dose: 500 mg Folic Acid (Folic Acid 1 Mg Tablet) 1 mg PO DAILY [facility] Last Admin: 11/14/21 08:55 Dose: 1 mg Guaifenesin/Dextromethorphan (Guaifenesin Dm 600/30 1 Tab Tab.Er.12h) 1 tab PO BID PRN PRN Reason: congestion Last Admin: 10/30/21 21:37 Dose: 1 tab Insulin Glargine (Insulin Glargine,Hum.Rec.Anlog 100 Unit/Ml 10 Ml Vial) 16 unit SUBCUT DAILY [facility] Last Admin: 11/14/21 09:02 Dose: 16 unit Insulin Human Lispro (Insulin Lispro 100 Unit/Ml 3 Ml Vial) 0 unit SUBCUT QIDACHS [facility]; Protocol Last Admin: 11/14/21 21:02 Dose: Not Given Lactulose (Lactulose 20 Gm/30 Ml Solution) 20 gm PO BID [facility] Last Admin: 11/14/21 21:02 Dose: Not Given Loratadine (Loratadine 10 Mg Tablet) 10 mg PO DAILY [facility] Last Admin: 11/14/21 08:55 Dose: 10 mg Losartan Potassium (Losartan Potassium 25 Mg Tablet) 25 mg PO DAILY [facility]; Protocol Last Admin: 11/14/21 08:55 Dose: 25 mg Magnesium Hydroxide (Milk Of Magnesia 30 Ml Oral.Susp) 30 ml PO DAILY PRN PRN Reason: Constipation Last Admin: 11/05/21 23:30 Dose: 30 ml Magnesium Oxide (Magnesium Oxide 400 Mg Tablet) 400 mg PO BIDPC [facility] Last Admin: 11/14/21 16:41 Dose: 400 mg Melatonin (Melatonin 3 Mg Tablet) 3 mg PO BEDTIME PRN PRN Reason: insomnia Last Admin: 11/08/21 21:49 Dose: 3 mg Multivitamins/Vitamin C (Multivitamin Tablet) 1 tab PO DAILY [facility] Last Admin: 11/14/21 08:55 Dose: 1 tab Nicotine (Nicotine 21 Mg Patch.Td24) 21 mg TRANSDERMA DAILY [facility] Last Admin: 11/14/21 09:03 Dose: Not Given Nicotine Polacrilex (Nicotine Polacrilex 2 Mg Gum) 2 mg BUCCAL Q2H PRN PRN Reason: Nicotine Cravings Last Admin: 11/14/21 21:05 Dose: 2 mg Omeprazole (Omeprazole 20 Mg Capsule.Dr) 20 mg PO DAILY@0630 [facility] Last Admin: 11/14/21 08:55 Dose: 20 mg Risperidone (Risperidone 2 Mg Tablet) 2 mg PO BEDTIME [facility] Last Admin: 11/14/21 21:01 Dose: 2 mg Risperidone (Risperidone 2 Mg Tablet) 2 mg PO DAILY [facility] Last Admin: 11/14/21 08:55 Dose: 2 mg Torsemide (Torsemide 20 Mg Tablet) 20 mg PO BIDWM [facility]; Protocol Last Admin: 11/14/21 16:38 Dose: 20 mg Trazodone HCl (Trazodone Hcl 50 Mg Tablet) 50 mg PO BEDTIME PRN PRN Reason: Insomnia Last Admin: 11/08/21 21:48 Dose: 50 mg Trolamine Salicylate (Trolamine Salicylate 10 % Cream 85 Gm Tube) 1 appl TOPICAL TID PRN; Protocol PRN Reason: Pain, Mild (Pain Scale 1-3) Last Admin: 11/14/21 22:59 Dose: 1 appl Allergies Allergies Allergy/AdvReac Type Severity Reaction Status Date / Time olanzapine [From Zyprexa] Allergy Unknown Verified 09/03/21 14:49 prednisone Allergy Unknown Verified 09/03/21 14:49 NSAIDS (Non-Steroidal AdvReac Mild Abdominal Verified 09/03/21 14:49 Anti-Inflamma Pain Assessment & Plan Assessment & Plan (1) Schizophrenia, chronic condition: Status: Acute Code(s): F20.9 - Schizophrenia, unspecified (2) HTN (hypertension): Status: Acute Code(s): I10 - Essential (primary) hypertension Assessment and Plan: 55 years old lady with PMH of CKD 2, systolic CHF, schizophrenia, diabetes and hypertension who presents to the hospital for psychiatric illness admitted to the psych floor. Hospitalist team contacted for evaluation of elevated blood pressure readings. Uncontrolled hypertension Blood pressure seems to be elevated on multiple readings during the hospital stay Start losartan 25 mg daily given the patient history of diabetes continue carvedilol and torsemide current doses Hx HFrEF Continue home medications of carvedilol, torsemide Losartan should hopefully help CKD type 2 Continue to monitor kidney function after starting losartan Thank you for the consult, please contact hospitalist team for any further questions. Amanda Hay is a 55 y.o. Female who carries a dx of schizophrenia. She presented to [facility] on 10/28/2021 due to psychosis, disorganized and decompensated. Recent discharge from [facility] in 08/2021 for decompensation in psychosis in context of recent hospitalization for pneumnonia superimposed on CHF. Utox negative except for fentanyl. No alcohol abuse. Hx of IPLOC, multiple previous admissions for paranoia. Hx of DMH. In the ED, VPA was 34.4. Utox positive for fentanyl, sa licylate level 6.3 (later decreased to <5.0), acetaminophen 2.? 10/29:? Pt asks to be put back on thorazine, as she says this med helps with agitation and sleep. Will start 25 mg Q6H PRN. Pt has been non-adherent with psych meds prior to admission, will re-start home meds and monitor for benefit. 10/30: no change in regimen.? less paranoid and more organized than yesterday. ?10/31/2021: No changes to current treatment plan.? Gradually improving and just restarted medications 11/01: Arthritis pain- Started Aspercream yesterday. Not on scheduled tylenol (will schedule). Feels gabapentin not helpful. 11/02 continue current medications. 11/03 continue current medications. 11/04- pt with several medical conditions ranging from CDK, liver cirrhosis, qtc prolongation which limits options in terms of medications. Will increase risperidone to 1mg po daily and 2mg po qhs- monitor closely Qtc with each i ncrease of medications. Will d/c abilify- d/c depakote hx of hyper ammonia 11/05 continue current medications, qtc wnl. 11/06 continue current medications. 11/07 Per staff, pt worse, more paranoid, increased risperdal to 2 mg BID and will discontinue cogentin, as pt was on this when she was taking abilify and may not longer need it, reduce anticholinergic SE. 11/08: No med changes, order EKG 11/09: QT 500.? labile, delusional, irritable - essentially becoming manic.? VPA was DCed 11/04 due to reported h/o hyperammonemia.? will start tegretol as pt clearly needs a mood stabilizer at this point.? will follow QTc.? if mood stabilizer effective may be able to reduce neuroleptic dosing. 11/10: affectively much improved today.? continue current regimen.? medicine consult for severe HTN. 11/11- carbamazepine d/c due to LFT and Alkph elevation repeat labs in 2 days. 11/12: 2 ammonia levels at [facility] while pt on VPA, both WNL. will restart VPA as pt had been on it for a long time without apparent issue. will check ammonia levels with VPA levels. calm and stable today. 11/13 continue current medications. 11/14: Continue current regimen and plans 11/15: Continue current plans and regimen I spent minutes with the patient and/or on the patient floor today, greater than?50% of which was spent counseling/coordinating care. Reason for contiued inpatient stay Substantial Risk for: med/psych decompensation
[2021-11-15 08:59] LABS: Glucose, Whole Blood 138 mg/dL (60-115)
[2021-11-15] MEDS: Magnesium Oxide 400 MG TABLET PO ×2 (09:21→17:35)
[2021-11-15] MEDS: Multivitamin TABLET 1 TAB PO (09:21)
[2021-11-15] MEDS: Lipase/Prot/Amylase 24/76/120K 1 CAP CAPSULE.DR PO ×3 (09:21→16:51)
[2021-11-15] MEDS: Folic Acid 1 MG TABLET PO (09:21)
[2021-11-15] MEDS: Omeprazole 20 MG CAPSULE.DR PO (09:22)
[2021-11-15] MEDS: carvediloL 6.25 MG TABLET PO ×2 (09:22→21:22)
[2021-11-15] MEDS: Divalproex Sodium ER 250 MG TAB.ER.24H PO (09:22)
[2021-11-15] MEDS: Acetaminophen 325 MG TABLET 650 MG PO ×3 (09:22→21:22)
[2021-11-15] MEDS: Torsemide 20 MG TABLET PO ×2 (09:22→16:51)
[2021-11-15] MEDS: risperiDONE 2 MG TABLET PO ×2 (09:22→21:22)
[2021-11-15] MEDS: Loratadine 10 MG TABLET PO (09:22)
[2021-11-15] MEDS: Losartan Potassium 50 MG TABLET PO (09:22)
[2021-11-15] MEDS: Insulin Glargine,Hum.rec.anlog 100 UNIT/ML 10 ML VIAL 16 UNIT SUBCUT (09:24)
[2021-11-15 09:48] VITALS: BP 143/89; PULSE 96; TEMP 36.6; O2SAT 96
[2021-11-15] MEDS: Nicotine Polacrilex 2 MG GUM BUCCAL ×3 (09:58→20:59)
[2021-11-15] MEDS: Mineral Oil/Petrolatum,White 106 GM Tube 1 APPL TOPICAL (12:03)
[2021-11-15 12:18] LABS: Glucose, Whole Blood 149 mg/dL (60-115)
[2021-11-15 17:29] LABS: Glucose, Whole Blood 114 mg/dL (60-115)
[2021-11-15 17:32] VITALS: BP 182/98; PULSE 85; TEMP 36.4; O2SAT 96
[2021-11-15] MEDS: cloNIDine HCL 0.1 MG TABLET PO (17:33)
[2021-11-15 18:13] VITALS: BP 163/95; PULSE 95
[2021-11-15 21:00] VITALS: BP 186/90; PULSE 89; RESP 18; TEMP 36.4; O2SAT 94
[2021-11-15] MEDS: Divalproex Sodium ER 500 MG TAB.ER.24H PO (21:22)
[2021-11-15 21:26] LABS: Glucose, Whole Blood 241 mg/dL (60-115)
[2021-11-15] MEDS: Insulin Lispro 100 UNIT/ML 3 ML VIAL SUBCUT (21:26)
[2021-11-16 06:00] VITALS: BP 148/90; PULSE 91; RESP 18; TEMP 36.6; O2SAT 95
[2021-11-16 09:06] LABS: Glucose, Whole Blood 118 mg/dL (60-115)
--- NOTE | 2021-11-16 09:17 | P.PNPSI_ITS ---
Subjective Subjective Date of Service: 11/16/21 Reason For Visit: Psychosis Mental Status Exam Mental Status Exam Narrative: Appearance: casually groomed, fair hygiene in NAD Behavior:cooperative psychomotor: no agitation or retardation noted Speech:clear, some delayed in response, spontaneous Thought process:repetitive at times re: not feeling safe Thought content:paranoid towards peers and staff Mood: okay Affect: constricted SI:denies HI:denies VH/AH:+AH Delusions:paranoid delusions Insight/judgment:poor x 2. Memory/cog: alert, oriented to place, not situation, month. pending moca. Diagnostics Vital Signs (24Hr): Vital Signs - 24 hr 11/16/21 17:59 11/16/21 20:06 Temperature 98.1 F 98.1 F Pulse Rate 94 100 Respiratory Rate 18 18 Blood Pressure 179/92 H 168/94 H Pulse Oximetry 93 93 Oxygen Delivery Method Room Air Room Air BMI result Body Mass Index 29.5 Labs Results: 10/28/21 12:47 11/11/21 10:14 Labs: Laboratory Results - last 48 hr 11/15/21 11/15/21 11/15/21 12:12 17:24 21:21 POC Glucose 149 H 114 241 H 11/16/21 11/16/21 11/16/21 09:01 12:09 17:00 POC Glucose 118 H 159 H 171 H 11/16/21 11/17/21 20:03 08:38 POC Glucose 228 H 152 H Medications Medications Current Medications Acetaminophen (Acetaminophen 325 Mg Tablet) 650 mg PO TID [facility] Last Admin: 11/17/21 08:56 Dose: 650 mg Al Hydroxide/Mg Hydroxide (Magnesium Hydrox/Alum Hydrox 30 Ml Oral.Susp) 30 ml PO Q6H PRN PRN Reason: Heartburn/Nausea Last Admin: 11/13/21 17:44 Dose: 30 ml Lipase/Protease/Amylase (Lipase/Prot/Amylase 24/76/120k 1 Cap Capsule.Dr) 1 cap PO TIDWM [facility] Last Admin: 11/17/21 08:56 Dose: 1 cap Benzocaine (Throat Lozenge, Medicated Lozenge) 1 lozenge MUCOUS MEM Q2H PRN PRN Reason: Sore Throat Last Admin: 11/14/21 15:07 Dose: 1 lozenge Carvedilol (Carvedilol 6.25 Mg Tablet) 6.25 mg PO BID [facility]; Protocol Last Admin: 11/16/21 20:16 Dose: 6.25 mg Chlorpromazine HCl (Chlorpromazine Hcl 25 Mg Tablet) 25 mg PO Q6H PRN PRN Reason: agitation, psychosis Last Admin: 11/09/21 11:45 Dose: 25 mg Chlorpromazine HCl (Chlorpromazine Hcl 25 Mg Tablet) 50 mg PO Q4H PRN PRN Reason: severe agitation Last Admin: 11/13/21 17:44 Dose: 50 mg Clonidine HCl (Clonidine Hcl 0.1 Mg Tablet) 0.1 mg PO DAILY [facility]; Protocol Last Admin: 11/17/21 08:56 Dose: 0.1 mg Divalproex Sodium (Divalproex Sodium Er 250 Mg Tab.Er.24h) 250 mg PO DAILY [facility] Last Admin: 11/17/21 08:56 Dose: 250 mg Divalproex Sodium (Divalproex Sodium Er 500 Mg Tab.Er.24h) 500 mg PO BEDTIME [facility] Last Admin: 11/16/21 20:17 Dose: 500 mg Folic Acid (Folic Acid 1 Mg Tablet) 1 mg PO DAILY [facility] Last Admin: 11/17/21 08:57 Dose: 1 mg Guaifenesin/Dextromethorphan (Guaifenesin Dm 600/30 1 Tab Tab.Er.12h) 1 tab PO BID PRN PRN Reason: congestion Last Admin: 10/30/21 21:37 Dose: 1 tab Insulin Glargine (Insulin Glargine,Hum.Rec.Anlog 100 Unit/Ml 10 Ml Vial) 16 unit SUBCUT DAILY [facility] Last Admin: 11/17/21 08:58 Dose: 16 unit Insulin Human Lispro (Insulin Lispro 100 Unit/Ml 3 Ml Vial) 0 unit SUBCUT QIDACHS [facility]; Protocol Last Admin: 11/16/21 20:15 Dose: 4 unit Lactulose (Lactulose 20 Gm/30 Ml Solution) 20 gm PO BID [facility] Last Admin: 11/17/21 08:57 Dose: Not Given Loratadine (Loratadine 10 Mg Tablet) 10 mg PO DAILY [facility] Last Admin: 11/17/21 08:57 Dose: 10 mg Losartan Potassium (Losartan Potassium 50 Mg Tablet) 50 mg PO DAILY [facility]; Protocol Last Admin: 11/17/21 08:55 Dose: 50 mg Magnesium Hydroxide (Milk Of Magnesia 30 Ml Oral.Susp) 30 ml PO DAILY PRN PRN Reason: Constipation Last Admin: 11/05/21 23:30 Dose: 30 ml Magnesium Oxide (Magnesium Oxide 400 Mg Tablet) 400 mg PO BIDPC [facility] Last Admin: 11/17/21 08:57 Dose: 400 mg Melatonin (Melatonin 3 Mg Tablet) 3 mg PO BEDTIME PRN PRN Reason: insomnia Last Admin: 11/08/21 21:49 Dose: 3 mg Multi-Ingred Cream/Lotion/Oil/Oint (Mineral Oil/Petrolatum,White 106 Gm Tube) 1 appl TOPICAL BID PRN; Protocol PRN Reason: Dry Skin Last Admin: 11/15/21 12:03 Dose: 1 appl Multivitamins/Vitamin C (Multivitamin Tablet) 1 tab PO DAILY [facility] Last Admin: 11/17/21 08:57 Dose: 1 tab Nicotine (Nicotine 21 Mg Patch.Td24) 21 mg TRANSDERMA DAILY [facility] Last Admin: 11/17/21 09:02 Dose: Not Given Nicotine Polacrilex (Nicotine Polacrilex 2 Mg Gum) 2 mg BUCCAL Q2H PRN PRN Reason: Nicotine Cravings Last Admin: 11/17/21 09:02 Dose: 2 mg Omeprazole (Omeprazole 20 Mg Capsule.Dr) 20 mg PO DAILY@0630 [facility] Last Admin: 11/17/21 08:55 Dose: 20 mg Risperidone (Risperidone 2 Mg Tablet) 2 mg PO BEDTIME [facility] Last Admin: 11/16/21 20:17 Dose: 2 mg Risperidone (Risperidone 2 Mg Tablet) 2 mg PO DAILY [facility] Last Admin: 11/17/21 08:57 Dose: 2 mg Torsemide (Torsemide 20 Mg Tablet) 20 mg PO BIDWM [facility]; Protocol Last Admin: 11/17/21 08:56 Dose: 20 mg Trazodone HCl (Trazodone Hcl 50 Mg Tablet) 50 mg PO BEDTIME PRN PRN Reason: Insomnia Last Admin: 11/08/21 21:48 Dose: 50 mg Trolamine Salicylate (Trolamine Salicylate 10 % Cream 85 Gm Tube) 1 appl TOPICAL TID PRN; Protocol PRN Reason: Pain, Mild (Pain Scale 1-3) Last Admin: 11/14/21 22:59 Dose: 1 appl Allergies Allergies Allergy/AdvReac Type Severity Reaction Status Date / Time olanzapine [From Zyprexa] Allergy Unknown Verified 09/03/21 14:49 prednisone Allergy Unknown Verified 09/03/21 14:49 NSAIDS (Non-Steroidal AdvReac Mild Abdominal Verified 09/03/21 14:49 Anti-Inflamma Pain Assessment & Plan Assessment & Plan (1) Schizophrenia, chronic condition: Status: Acute Code(s): F20.9 - Schizophrenia, unspecified (2) HTN (hypertension): Status: Acute Code(s): I10 - Essential (primary) hypertension Plan 11/16 continue current medications. I spent minutes with the patient and/or on the patient floor today, greater than?50% of which was spent counseling/coordinating care. Reason for contiued inpatient stay Substantial Risk for: inability to function
[2021-11-16] MEDS: Insulin Glargine,Hum.rec.anlog 100 UNIT/ML 10 ML VIAL 16 UNIT SUBCUT (09:32)
[2021-11-16] MEDS: Lipase/Prot/Amylase 24/76/120K 1 CAP CAPSULE.DR PO ×3 (09:32→18:00)
[2021-11-16] MEDS: Multivitamin TABLET 1 TAB PO (09:33)
[2021-11-16] MEDS: Folic Acid 1 MG TABLET PO (09:33)
[2021-11-16] MEDS: Lactulose 20 GM/30 ML SOLUTION PO (09:33)
[2021-11-16] MEDS: risperiDONE 2 MG TABLET PO ×2 (09:33→20:17)
[2021-11-16] MEDS: Divalproex Sodium ER 250 MG TAB.ER.24H PO (09:33)
[2021-11-16] MEDS: Losartan Potassium 50 MG TABLET PO (09:33)
[2021-11-16] MEDS: Omeprazole 20 MG CAPSULE.DR PO (09:33)
[2021-11-16] MEDS: Loratadine 10 MG TABLET PO (09:33)
[2021-11-16] MEDS: cloNIDine HCL 0.1 MG TABLET PO (09:33)
[2021-11-16] MEDS: Acetaminophen 325 MG TABLET 650 MG PO ×2 (09:34→20:16)
[2021-11-16] MEDS: Torsemide 20 MG TABLET PO ×2 (09:34→18:00)
[2021-11-16] MEDS: carvediloL 6.25 MG TABLET PO ×2 (09:34→20:16)
[2021-11-16] MEDS: Magnesium Oxide 400 MG TABLET PO ×2 (09:34→18:00)
[2021-11-16] MEDS: Nicotine Polacrilex 2 MG GUM BUCCAL ×2 (09:45→16:04)
[2021-11-16 12:13] LABS: Glucose, Whole Blood 159 mg/dL (60-115)
[2021-11-16] MEDS: Insulin Lispro 100 UNIT/ML 3 ML VIAL SUBCUT ×3 (13:42→20:15)
[2021-11-16 17:04] LABS: Glucose, Whole Blood 171 mg/dL (60-115)
[2021-11-16 17:59] VITALS: BP 179/92; PULSE 94; RESP 18; TEMP 36.7; O2SAT 93
[2021-11-16 20:06] VITALS: BP 168/94; PULSE 100; RESP 18; TEMP 36.7; O2SAT 93
[2021-11-16 20:07] LABS: Glucose, Whole Blood 228 mg/dL (60-115)
[2021-11-16] MEDS: Divalproex Sodium ER 500 MG TAB.ER.24H PO (20:17)
[2021-11-17 08:43] LABS: Glucose, Whole Blood 152 mg/dL (60-115)
[2021-11-17] MEDS: Omeprazole 20 MG CAPSULE.DR PO (08:55)
[2021-11-17] MEDS: Losartan Potassium 50 MG TABLET PO (08:55)
[2021-11-17] MEDS: cloNIDine HCL 0.1 MG TABLET PO (08:56)
[2021-11-17] MEDS: Torsemide 20 MG TABLET PO ×2 (08:56→18:02)
[2021-11-17] MEDS: Lipase/Prot/Amylase 24/76/120K 1 CAP CAPSULE.DR PO ×3 (08:56→18:02)
[2021-11-17] MEDS: Acetaminophen 325 MG TABLET 650 MG PO ×3 (08:56→21:01)
[2021-11-17] MEDS: Divalproex Sodium ER 250 MG TAB.ER.24H PO (08:56)
[2021-11-17] MEDS: Multivitamin TABLET 1 TAB PO (08:57)
[2021-11-17] MEDS: Loratadine 10 MG TABLET PO (08:57)
[2021-11-17] MEDS: Magnesium Oxide 400 MG TABLET PO ×2 (08:57→18:02)
[2021-11-17] MEDS: Folic Acid 1 MG TABLET PO (08:57)
[2021-11-17] MEDS: risperiDONE 2 MG TABLET PO ×2 (08:57→21:01)
[2021-11-17] MEDS: Insulin Glargine,Hum.rec.anlog 100 UNIT/ML 10 ML VIAL 16 UNIT SUBCUT (08:58)
[2021-11-17 09:00] VITALS: BP 163/90; PULSE 98; RESP 16; TEMP 36.8; O2SAT 94
[2021-11-17] MEDS: Nicotine Polacrilex 2 MG GUM BUCCAL ×2 (09:02→16:16)
[2021-11-17] MEDS: carvediloL 6.25 MG TABLET PO ×2 (10:32→21:01)
[2021-11-17] MEDS: Insulin Lispro 100 UNIT/ML 3 ML VIAL SUBCUT ×3 (10:32→21:01)
[2021-11-17 12:52] LABS: Glucose, Whole Blood 111 mg/dL (60-115)
[2021-11-17] MEDS: chlorproMAZINE HCl 25 MG TABLET PO (13:46)
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
[2021-11-17 17:59] LABS: Glucose, Whole Blood 157 mg/dL (60-115)
[2021-11-17 20:53] VITALS: BP 113/69; PULSE 102; RESP 16; TEMP 36.6; O2SAT 95
[2021-11-17 20:55] LABS: Glucose, Whole Blood 248 mg/dL (60-115)
[2021-11-17] MEDS: Divalproex Sodium ER 500 MG TAB.ER.24H PO (21:01)
[2021-11-17] MEDS: Lactulose 20 GM/30 ML SOLUTION PO (21:02)
[2021-11-18 08:40] VITALS: BP 133/93; PULSE 92; RESP 20; TEMP 36.3; O2SAT 96
[2021-11-18] MEDS: cloNIDine HCL 0.1 MG TABLET PO (08:52)
[2021-11-18] MEDS: Acetaminophen 325 MG TABLET 650 MG PO ×3 (08:52→20:17)
[2021-11-18] MEDS: Omeprazole 20 MG CAPSULE.DR PO (08:52)
[2021-11-18] MEDS: Folic Acid 1 MG TABLET PO (08:52)
[2021-11-18] MEDS: carvediloL 6.25 MG TABLET PO ×2 (08:53→20:17)
[2021-11-18] MEDS: Magnesium Oxide 400 MG TABLET PO ×2 (08:53→17:28)
[2021-11-18] MEDS: Losartan Potassium 50 MG TABLET PO (08:53)
[2021-11-18] MEDS: Loratadine 10 MG TABLET PO (08:53)
[2021-11-18] MEDS: risperiDONE 2 MG TABLET PO ×2 (08:53→20:18)
[2021-11-18] MEDS: Lipase/Prot/Amylase 24/76/120K 1 CAP CAPSULE.DR PO ×3 (08:53→17:28)
[2021-11-18] MEDS: Divalproex Sodium ER 250 MG TAB.ER.24H PO (08:53)
[2021-11-18] MEDS: Multivitamin TABLET 1 TAB PO (08:53)
[2021-11-18] MEDS: Torsemide 20 MG TABLET PO ×2 (08:53→17:28)
[2021-11-18] MEDS: Insulin Glargine,Hum.rec.anlog 100 UNIT/ML 10 ML VIAL 16 UNIT SUBCUT (08:55)
[2021-11-18 08:56] LABS: Glucose, Whole Blood 150 mg/dL (60-115)
--- NOTE | 2021-11-18 10:01 | HO.PSYCHPN ---
Subjective Subjective Date of Service: 11/18/21 Reason For Visit: Psychosis Subjective Notes: Conditional Voluntary Interim History: Pt less tearful but still asking to be discharged soon to her house. She does not want to go to rest home or [facility]. She reports she feels safe going back home. She appears less suspicious about peers and staff. She denies SI/HI. No aggression towards self or others. taking medications as prescribed. Medication Compliance: Yes Side effects from medications: No Attending Groups: Intermittent Review of Systems Review of Systems Yes all other systems are reviewed and are negative Mental Status Exam Mental Status Exam Narrative: Appearance: casually groomed, fair hygiene in NAD Behavior:cooperative psychomotor: no agitation or retardation noted Speech:clear, some delayed in response, spontaneous Thought process:repetitive at times re: not feeling safe Thought content:paranoid towards peers and staff Mood: okay Affect: constricted SI:denies HI:denies VH/AH:+AH Delusions:paranoid delusions Insight/judgment:poor x 2. Memory/cog: alert, oriented to place, not situation, month. pending moca. Diagnostics Vital Signs (24Hr): Vital Signs - 24 hr 11/19/21 18:05 11/20/21 09:45 Temperature 97.6 F Pulse Rate 82 98 Respiratory Rate 18 Blood Pressure 185/92 H 162/96 H Pulse Oximetry 92 Oxygen Delivery Method Room Air BMI result Body Mass Index 28.9 Labs Results: 10/28/21 12:47 11/11/21 10:14 Labs: Laboratory Results - last 48 hr 11/18/21 11/18/21 11/18/21 12:29 17:23 20:03 POC Glucose 186 H 233 H 95 11/19/21 11/19/21 11/19/21 08:57 12:54 17:52 POC Glucose 131 H 121 H 89 11/19/21 11/20/21 20:50 09:15 POC Glucose 156 H 143 H Medications Medications Current Medications Acetaminophen (Acetaminophen 325 Mg Tablet) 650 mg PO TID [facility] Last Admin: 11/20/21 09:48 Dose: Not Given Al Hydroxide/Mg Hydroxide (Magnesium Hydrox/Alum Hydrox 30 Ml Oral.Susp) 30 ml PO Q6H PRN PRN Reason: Heartburn/Nausea Last Admin: 11/13/21 17:44 Dose: 30 ml Lipase/Protease/Amylase (Lipase/Prot/Amylase 24/76/120k 1 Cap Capsule.Dr) 1 cap PO TIDWM [facility] Last Admin: 11/20/21 09:52 Dose: 1 cap Benzocaine (Throat Lozenge, Medicated Lozenge) 1 lozenge MUCOUS MEM Q2H PRN PRN Reason: Sore Throat Last Admin: 11/14/21 15:07 Dose: 1 lozenge Carvedilol (Carvedilol 6.25 Mg Tablet) 6.25 mg PO BID [facility]; Protocol Last Admin: 11/20/21 09:51 Dose: 6.25 mg Chlorpromazine HCl (Chlorpromazine Hcl 25 Mg Tablet) 25 mg PO Q6H PRN PRN Reason: agitation, psychosis Last Admin: 11/17/21 13:46 Dose: 25 mg Chlorpromazine HCl (Chlorpromazine Hcl 25 Mg Tablet) 50 mg PO Q4H PRN PRN Reason: severe agitation Last Admin: 11/13/21 17:44 Dose: 50 mg Clonidine HCl (Clonidine Hcl 0.1 Mg Tablet) 0.1 mg PO DAILY [facility]; Protocol Last Admin: 11/20/21 09:52 Dose: 0.1 mg Divalproex Sodium (Divalproex Sodium Er 250 Mg Tab.Er.24h) 250 mg PO DAILY [facility] Last Admin: 11/20/21 09:51 Dose: 250 mg Divalproex Sodium (Divalproex Sodium Er 500 Mg Tab.Er.24h) 500 mg PO BEDTIME [facility] Last Admin: 11/19/21 20:51 Dose: 500 mg Folic Acid (Folic Acid 1 Mg Tablet) 1 mg PO DAILY [facility] Last Admin: 11/20/21 09:52 Dose: 1 mg Guaifenesin/Dextromethorphan (Guaifenesin Dm 600/30 1 Tab Tab.Er.12h) 1 tab PO BID PRN PRN Reason: congestion Last Admin: 10/30/21 21:37 Dose: 1 tab Insulin Glargine (Insulin Glargine,Hum.Rec.Anlog 100 Unit/Ml 10 Ml Vial) 16 unit SUBCUT DAILY [facility] Last Admin: 11/20/21 09:53 Dose: 16 unit Insulin Human Lispro (Insulin Lispro 100 Unit/Ml 3 Ml Vial) 0 unit SUBCUT QIDACHS [facility]; Protocol Last Admin: 11/20/21 09:18 Dose: Not Given Lactulose (Lactulose 20 Gm/30 Ml Solution) 20 gm PO BID [facility] Last Admin: 11/20/21 09:54 Dose: Not Given Loratadine (Loratadine 10 Mg Tablet) 10 mg PO DAILY [facility] Last Admin: 11/20/21 09:52 Dose: 10 mg Losartan Potassium (Losartan Potassium 50 Mg Tablet) 50 mg PO DAILY [facility]; Protocol Last Admin: 11/20/21 09:52 Dose: 50 mg Magnesium Hydroxide (Milk Of Magnesia 30 Ml Oral.Susp) 30 ml PO DAILY PRN PRN Reason: Constipation Last Admin: 11/05/21 23:30 Dose: 30 ml Magnesium Oxide (Magnesium Oxide 400 Mg Tablet) 400 mg PO BIDPC [facility] Last Admin: 11/20/21 09:51 Dose: 400 mg Melatonin (Melatonin 3 Mg Tablet) 3 mg PO BEDTIME PRN PRN Reason: insomnia Last Admin: 11/08/21 21:49 Dose: 3 mg Multi-Ingred Cream/Lotion/Oil/Oint (Mineral Oil/Petrolatum,White 106 Gm Tube) 1 appl TOPICAL BID PRN; Protocol PRN Reason: Dry Skin Last Admin: 11/15/21 12:03 Dose: 1 appl Multivitamins/Vitamin C (Multivitamin Tablet) 1 tab PO DAILY [facility] Last Admin: 11/20/21 09:48 Dose: 1 tab Nicotine (Nicotine 21 Mg Patch.Td24) 21 mg TRANSDERMA DAILY [facility] Last Admin: 11/20/21 09:54 Dose: Not Given Nicotine Polacrilex (Nicotine Polacrilex 2 Mg Gum) 2 mg BUCCAL Q2H PRN PRN Reason: Nicotine Cravings Last Admin: 11/20/21 09:55 Dose: 2 mg Omeprazole (Omeprazole 20 Mg Capsule.Dr) 20 mg PO DAILY@0630 [facility] Last Admin: 11/20/21 09:52 Dose: 20 mg Risperidone (Risperidone 2 Mg Tablet) 2 mg PO BEDTIME [facility] Last Admin: 11/19/21 20:52 Dose: 2 mg Risperidone (Risperidone 2 Mg Tablet) 2 mg PO DAILY [facility] Last Admin: 11/20/21 09:51 Dose: 2 mg Torsemide (Torsemide 20 Mg Tablet) 20 mg PO BIDWM [facility]; Protocol Last Admin: 11/20/21 09:48 Dose: 20 mg Trazodone HCl (Trazodone Hcl 50 Mg Tablet) 50 mg PO BEDTIME PRN PRN Reason: Insomnia Last Admin: 11/08/21 21:48 Dose: 50 mg Trolamine Salicylate (Trolamine Salicylate 10 % Cream 85 Gm Tube) 1 appl TOPICAL TID PRN; Protocol PRN Reason: Pain, Mild (Pain Scale 1-3) Last Admin: 11/14/21 22:59 Dose: 1 appl Allergies Allergies Allergy/AdvReac Type Severity Reaction Status Date / Time olanzapine [From Zyprexa] Allergy Unknown Verified 09/03/21 14:49 prednisone Allergy Unknown Verified 09/03/21 14:49 NSAIDS (Non-Steroidal AdvReac Mild Abdominal Verified 09/03/21 14:49 Anti-Inflamma Pain Assessment & Plan Assessment & Plan (1) Schizophrenia, chronic condition: Status: Acute Code(s): F20.9 - Schizophrenia, unspecified (2) HTN (hypertension): Status: Acute Code(s): I10 - Essential (primary) hypertension Plan 11/16 continue current medications. 11/17 continue current medications. 11/18 continue current medication, I spent minutes with the patient and/or on the patient floor today, greater than?50% of which was spent counseling/coordinating care. Reason for contiued inpatient stay Substantial Risk for: inability to function
[2021-11-18 12:37] LABS: Glucose, Whole Blood 186 mg/dL (60-115)
[2021-11-18] MEDS: Insulin Lispro 100 UNIT/ML 3 ML VIAL SUBCUT ×2 (13:00→17:27)
[2021-11-18] MEDS: Nicotine Polacrilex 2 MG GUM BUCCAL ×2 (14:11→16:11)
[2021-11-18 17:25] LABS: Glucose, Whole Blood 233 mg/dL (60-115)
[2021-11-18 17:41] VITALS: BP 202/112; RESP 20
[2021-11-18 18:27] VITALS: BP 188/105; PULSE 101; RESP 20
[2021-11-18] MEDS: Divalproex Sodium ER 500 MG TAB.ER.24H PO (20:18)
[2021-11-18] MEDS: Lactulose 20 GM/30 ML SOLUTION PO (20:19)
[2021-11-18 20:27] LABS: Glucose, Whole Blood 95 mg/dL (60-115)
[2021-11-19 07:00] VITALS: BMI 28.9
[2021-11-19 08:58] VITALS: BP 136/91; PULSE 96; RESP 20; TEMP 36.4; O2SAT 92
[2021-11-19] MEDS: Torsemide 20 MG TABLET PO ×2 (08:59→17:31)
[2021-11-19] MEDS: Omeprazole 20 MG CAPSULE.DR PO (08:59)
[2021-11-19] MEDS: Lipase/Prot/Amylase 24/76/120K 1 CAP CAPSULE.DR PO ×3 (08:59→17:31)
[2021-11-19] MEDS: Acetaminophen 325 MG TABLET 650 MG PO ×3 (08:59→20:52)
[2021-11-19] MEDS: Magnesium Oxide 400 MG TABLET PO ×2 (08:59→17:31)
[2021-11-19 09:00] LABS: Glucose, Whole Blood 131 mg/dL (60-115)
[2021-11-19] MEDS: carvediloL 6.25 MG TABLET PO ×2 (09:00→20:52)
[2021-11-19] MEDS: Multivitamin TABLET 1 TAB PO (09:00)
[2021-11-19] MEDS: Folic Acid 1 MG TABLET PO (09:00)
[2021-11-19] MEDS: Losartan Potassium 50 MG TABLET PO (09:00)
[2021-11-19] MEDS: Lactulose 20 GM/30 ML SOLUTION PO (09:00)
[2021-11-19] MEDS: cloNIDine HCL 0.1 MG TABLET PO (09:00)
[2021-11-19] MEDS: Divalproex Sodium ER 250 MG TAB.ER.24H PO (09:00)
[2021-11-19] MEDS: Loratadine 10 MG TABLET PO (09:00)
[2021-11-19] MEDS: risperiDONE 2 MG TABLET PO ×2 (09:00→20:52)
[2021-11-19] MEDS: Insulin Glargine,Hum.rec.anlog 100 UNIT/ML 10 ML VIAL 16 UNIT SUBCUT (09:05)
--- NOTE | 2021-11-19 10:04 | HO.PSYCHPN ---
Subjective Subjective Date of Service: 11/19/21 Reason For Visit: Psychosis Subjective Notes: Conditional Voluntary Interim History: Pt denies SI/HI. Less AH. She is sleeping and eating well. No aggression towards self or others. She asks to go home and agrees to be discharged next Tuesday. She is taking medications as prescribed, will continue monitoring EKG. Medication Compliance: Yes Side effects from medications: No Review of Systems Review of Systems Yes all other systems are reviewed and are negative Mental Status Exam Mental Status Exam Narrative: Appearance: casually groomed, fair hygiene in NAD Behavior:cooperative psychomotor: no agitation or retardation noted Speech:clear, some delayed in response, spontaneous Thought process:repetitive at times re: not feeling safe Thought content:paranoid towards peers and staff Mood: okay Affect: constricted SI:denies HI:denies VH/AH:+AH Delusions:paranoid delusions Insight/judgment:poor x 2. Memory/cog: alert, oriented to place, not situation, month. pending moca. Diagnostics Vital Signs (24Hr): Vital Signs - 24 hr 11/19/21 18:05 11/20/21 09:45 Temperature 97.6 F Pulse Rate 82 98 Respiratory Rate 18 Blood Pressure 185/92 H 162/96 H Pulse Oximetry 92 Oxygen Delivery Method Room Air BMI result Body Mass Index 28.9 Labs Results: 10/28/21 12:47 11/11/21 10:14 Labs: Laboratory Results - last 48 hr 11/18/21 11/18/21 11/18/21 12:29 17:23 20:03 POC Glucose 186 H 233 H 95 11/19/21 11/19/21 11/19/21 08:57 12:54 17:52 POC Glucose 131 H 121 H 89 11/19/21 11/20/21 20:50 09:15 POC Glucose 156 H 143 H Medications Medications Current Medications Acetaminophen (Acetaminophen 325 Mg Tablet) 650 mg PO TID [facility] Last Admin: 11/20/21 09:48 Dose: Not Given Al Hydroxide/Mg Hydroxide (Magnesium Hydrox/Alum Hydrox 30 Ml Oral.Susp) 30 ml PO Q6H PRN PRN Reason: Heartburn/Nausea Last Admin: 11/13/21 17:44 Dose: 30 ml Lipase/Protease/Amylase (Lipase/Prot/Amylase 24/76/120k 1 Cap Capsule.Dr) 1 cap PO TIDWM [facility] Last Admin: 11/20/21 09:52 Dose: 1 cap Benzocaine (Throat Lozenge, Medicated Lozenge) 1 lozenge MUCOUS MEM Q2H PRN PRN Reason: Sore Throat Last Admin: 11/14/21 15:07 Dose: 1 lozenge Carvedilol (Carvedilol 6.25 Mg Tablet) 6.25 mg PO BID [facility]; Protocol Last Admin: 11/20/21 09:51 Dose: 6.25 mg Chlorpromazine HCl (Chlorpromazine Hcl 25 Mg Tablet) 25 mg PO Q6H PRN PRN Reason: agitation, psychosis Last Admin: 11/17/21 13:46 Dose: 25 mg Chlorpromazine HCl (Chlorpromazine Hcl 25 Mg Tablet) 50 mg PO Q4H PRN PRN Reason: severe agitation Last Admin: 11/13/21 17:44 Dose: 50 mg Clonidine HCl (Clonidine Hcl 0.1 Mg Tablet) 0.1 mg PO DAILY [facility]; Protocol Last Admin: 11/20/21 09:52 Dose: 0.1 mg Divalproex Sodium (Divalproex Sodium Er 250 Mg Tab.Er.24h) 250 mg PO DAILY [facility] Last Admin: 11/20/21 09:51 Dose: 250 mg Divalproex Sodium (Divalproex Sodium Er 500 Mg Tab.Er.24h) 500 mg PO BEDTIME [facility] Last Admin: 11/19/21 20:51 Dose: 500 mg Folic Acid (Folic Acid 1 Mg Tablet) 1 mg PO DAILY [facility] Last Admin: 11/20/21 09:52 Dose: 1 mg Guaifenesin/Dextromethorphan (Guaifenesin Dm 600/30 1 Tab Tab.Er.12h) 1 tab PO BID PRN PRN Reason: congestion Last Admin: 10/30/21 21:37 Dose: 1 tab Insulin Glargine (Insulin Glargine,Hum.Rec.Anlog 100 Unit/Ml 10 Ml Vial) 16 unit SUBCUT DAILY [facility] Last Admin: 11/20/21 09:53 Dose: 16 unit Insulin Human Lispro (Insulin Lispro 100 Unit/Ml 3 Ml Vial) 0 unit SUBCUT QIDACHS [facility]; Protocol Last Admin: 11/20/21 09:18 Dose: Not Given Lactulose (Lactulose 20 Gm/30 Ml Solution) 20 gm PO BID [facility] Last Admin: 11/20/21 09:54 Dose: Not Given Loratadine (Loratadine 10 Mg Tablet) 10 mg PO DAILY [facility] Last Admin: 11/20/21 09:52 Dose: 10 mg Losartan Potassium (Losartan Potassium 50 Mg Tablet) 50 mg PO DAILY [facility]; Protocol Last Admin: 11/20/21 09:52 Dose: 50 mg Magnesium Hydroxide (Milk Of Magnesia 30 Ml Oral.Susp) 30 ml PO DAILY PRN PRN Reason: Constipation Last Admin: 11/05/21 23:30 Dose: 30 ml Magnesium Oxide (Magnesium Oxide 400 Mg Tablet) 400 mg PO BIDPC [facility] Last Admin: 11/20/21 09:51 Dose: 400 mg Melatonin (Melatonin 3 Mg Tablet) 3 mg PO BEDTIME PRN PRN Reason: insomnia Last Admin: 11/08/21 21:49 Dose: 3 mg Multi-Ingred Cream/Lotion/Oil/Oint (Mineral Oil/Petrolatum,White 106 Gm Tube) 1 appl TOPICAL BID PRN; Protocol PRN Reason: Dry Skin Last Admin: 11/15/21 12:03 Dose: 1 appl Multivitamins/Vitamin C (Multivitamin Tablet) 1 tab PO DAILY [facility] Last Admin: 11/20/21 09:48 Dose: 1 tab Nicotine (Nicotine 21 Mg Patch.Td24) 21 mg TRANSDERMA DAILY [facility] Last Admin: 11/20/21 09:54 Dose: Not Given Nicotine Polacrilex (Nicotine Polacrilex 2 Mg Gum) 2 mg BUCCAL Q2H PRN PRN Reason: Nicotine Cravings Last Admin: 11/20/21 09:55 Dose: 2 mg Omeprazole (Omeprazole 20 Mg Capsule.Dr) 20 mg PO DAILY@0630 [facility] Last Admin: 11/20/21 09:52 Dose: 20 mg Risperidone (Risperidone 2 Mg Tablet) 2 mg PO BEDTIME [facility] Last Admin: 11/19/21 20:52 Dose: 2 mg Risperidone (Risperidone 2 Mg Tablet) 2 mg PO DAILY [facility] Last Admin: 11/20/21 09:51 Dose: 2 mg Torsemide (Torsemide 20 Mg Tablet) 20 mg PO BIDWM [facility]; Protocol Last Admin: 11/20/21 09:48 Dose: 20 mg Trazodone HCl (Trazodone Hcl 50 Mg Tablet) 50 mg PO BEDTIME PRN PRN Reason: Insomnia Last Admin: 11/08/21 21:48 Dose: 50 mg Trolamine Salicylate (Trolamine Salicylate 10 % Cream 85 Gm Tube) 1 appl TOPICAL TID PRN; Protocol PRN Reason: Pain, Mild (Pain Scale 1-3) Last Admin: 11/14/21 22:59 Dose: 1 appl Allergies Allergies Allergy/AdvReac Type Severity Reaction Status Date / Time olanzapine [From Zyprexa] Allergy Unknown Verified 09/03/21 14:49 prednisone Allergy Unknown Verified 09/03/21 14:49 NSAIDS (Non-Steroidal AdvReac Mild Abdominal Verified 09/03/21 14:49 Anti-Inflamma Pain Assessment & Plan Assessment & Plan (1) Schizophrenia, chronic condition: Status: Acute Code(s): F20.9 - Schizophrenia, unspecified (2) HTN (hypertension): Status: Acute Code(s): I10 - Essential (primary) hypertension Plan 11/16 continue current medications. 11/17 continue current medications. 11/18 continue current medication, 11/19 continue current medications, monitor EKG. I spent minutes with the patient and/or on the patient floor today, greater than?50% of which was spent counseling/coordinating care. Reason for contiued inpatient stay Substantial Risk for: inability to function
[2021-11-19 12:58] LABS: Glucose, Whole Blood 121 mg/dL (60-115)
[2021-11-19] MEDS: Nicotine Polacrilex 2 MG GUM BUCCAL (14:13)
[2021-11-19 17:56] LABS: Glucose, Whole Blood 89 mg/dL (60-115)
[2021-11-19 18:05] VITALS: BP 185/92; PULSE 82
[2021-11-19] MEDS: Divalproex Sodium ER 500 MG TAB.ER.24H PO (20:51)
[2021-11-19 20:59] LABS: Glucose, Whole Blood 156 mg/dL (60-115)
[2021-11-19] MEDS: Insulin Lispro 100 UNIT/ML 3 ML VIAL SUBCUT (21:08)
--- NOTE | 2021-11-20 | ECG_ITS ---
Test Reason : qtc check Blood Pressure : / mmHG Vent. Rate : 090 BPM Atrial Rate : 090 BPM P-R Int : 166 ms QRS Dur : 098 ms QT Int : 388 ms P-R-T Axes : 020 076 043 degrees QTc Int : 474 ms Normal sinus rhythm with sinus arrhythmia Borderline ECG When compared with ECG of 08-NOV-2021 14:10, QT has shortened Referred By: Aubree Krishnamurthy Electronically Signed By:KARTHIKEYAN ARREGUIN
--- NOTE | 2021-11-20 09:06 | P.PNPSI_ITS ---
Subjective Subjective Date of Service: 11/20/21 Reason For Visit: Psychosis Subjective Notes: Conditional Voluntary Interim History: Pt reports less fearful about people in community and where she lives. denies SI/HI. Less AH. She is sleeping and eating well. No aggression towards self or others. She asks to go home and agrees to be discharged next Tuesday. She is taking medications as prescribed, will continue monitoring EKG. Review of Systems Review of Systems Yes all other systems are reviewed and are negative Mental Status Exam Mental Status Exam Narrative: Appearance: casually groomed, fair hygiene in NAD Behavior:cooperative psychomotor: no agitation or retardation noted Speech:clear, some delayed in response, spontaneous Thought process:repetitive at times re: not feeling safe Thought content:paranoid towards peers and staff Mood: okay Affect: constricted SI:denies HI:denies VH/AH:+AH Delusions:paranoid delusions Insight/judgment:poor x 2. Memory/cog: alert, oriented to place, not situation, month. pending moca. Diagnostics Vital Signs (24Hr): Vital Signs - 24 hr 11/20/21 09:45 11/20/21 21:28 Temperature 97.6 F 97.8 F Pulse Rate 98 91 Respiratory Rate 18 18 Blood Pressure 162/96 H 139/78 Pulse Oximetry 92 95 Oxygen Delivery Method Room Air Room Air BMI result Body Mass Index 28.9 Labs Results: 10/28/21 12:47 11/11/21 10:14 Labs: Laboratory Results - last 48 hr 11/19/21 11/19/21 11/19/21 12:54 17:52 20:50 POC Glucose 121 H 89 156 H 11/20/21 11/20/21 11/20/21 09:15 12:39 17:38 POC Glucose 143 H 242 H 213 H 11/20/21 21:13 POC Glucose 162 H Medications Medications Current Medications Acetaminophen (Acetaminophen 325 Mg Tablet) 650 mg PO TID [facility] Last Admin: 11/20/21 21:29 Dose: 650 mg Al Hydroxide/Mg Hydroxide (Magnesium Hydrox/Alum Hydrox 30 Ml Oral.Susp) 30 ml PO Q6H PRN PRN Reason: Heartburn/Nausea Last Admin: 11/13/21 17:44 Dose: 30 ml Lipase/Protease/Amylase (Lipase/Prot/Amylase 24/76/120k 1 Cap Capsule.Dr) 1 cap PO TIDWM [facility] Last Admin: 11/20/21 18:12 Dose: 1 cap Benzocaine (Throat Lozenge, Medicated Lozenge) 1 lozenge MUCOUS MEM Q2H PRN PRN Reason: Sore Throat Last Admin: 11/14/21 15:07 Dose: 1 lozenge Carvedilol (Carvedilol 6.25 Mg Tablet) 6.25 mg PO BID [facility]; Protocol Last Admin: 11/20/21 21:28 Dose: 6.25 mg Chlorpromazine HCl (Chlorpromazine Hcl 25 Mg Tablet) 25 mg PO Q6H PRN PRN Reason: agitation, psychosis Last Admin: 11/20/21 13:18 Dose: 25 mg Chlorpromazine HCl (Chlorpromazine Hcl 25 Mg Tablet) 50 mg PO Q4H PRN PRN Reason: severe agitation Last Admin: 11/13/21 17:44 Dose: 50 mg Clonidine HCl (Clonidine Hcl 0.1 Mg Tablet) 0.1 mg PO DAILY [facility]; Protocol Last Admin: 11/20/21 09:52 Dose: 0.1 mg Divalproex Sodium (Divalproex Sodium Er 250 Mg Tab.Er.24h) 250 mg PO DAILY [facility] Last Admin: 11/20/21 09:51 Dose: 250 mg Divalproex Sodium (Divalproex Sodium Er 500 Mg Tab.Er.24h) 500 mg PO BEDTIME [facility] Last Admin: 11/20/21 21:29 Dose: 500 mg Folic Acid (Folic Acid 1 Mg Tablet) 1 mg PO DAILY [facility] Last Admin: 11/20/21 09:52 Dose: 1 mg Guaifenesin/Dextromethorphan (Guaifenesin Dm 600/30 1 Tab Tab.Er.12h) 1 tab PO BID PRN PRN Reason: congestion Last Admin: 10/30/21 21:37 Dose: 1 tab Insulin Glargine (Insulin Glargine,Hum.Rec.Anlog 100 Unit/Ml 10 Ml Vial) 16 unit SUBCUT DAILY [facility] Last Admin: 11/20/21 09:53 Dose: 16 unit Insulin Human Lispro (Insulin Lispro 100 Unit/Ml 3 Ml Vial) 0 unit SUBCUT QIDACHS [facility]; Protocol Last Admin: 11/20/21 21:27 Dose: 2 unit Lactulose (Lactulose 20 Gm/30 Ml Solution) 20 gm PO BID [facility] Last Admin: 11/20/21 22:48 Dose: Not Given Loratadine (Loratadine 10 Mg Tablet) 10 mg PO DAILY [facility] Last Admin: 11/20/21 09:52 Dose: 10 mg Losartan Potassium (Losartan Potassium 50 Mg Tablet) 50 mg PO DAILY [facility]; Protocol Last Admin: 11/20/21 09:52 Dose: 50 mg Magnesium Hydroxide (Milk Of Magnesia 30 Ml Oral.Susp) 30 ml PO DAILY PRN PRN Reason: Constipation Last Admin: 11/05/21 23:30 Dose: 30 ml Magnesium Oxide (Magnesium Oxide 400 Mg Tablet) 400 mg PO BIDPC [facility] Last Admin: 11/20/21 18:12 Dose: 400 mg Melatonin (Melatonin 3 Mg Tablet) 3 mg PO BEDTIME PRN PRN Reason: insomnia Last Admin: 11/08/21 21:49 Dose: 3 mg Multi-Ingred Cream/Lotion/Oil/Oint (Mineral Oil/Petrolatum,White 106 Gm Tube) 1 appl TOPICAL BID PRN; Protocol PRN Reason: Dry Skin Last Admin: 11/15/21 12:03 Dose: 1 appl Multivitamins/Vitamin C (Multivitamin Tablet) 1 tab PO DAILY [facility] Last Admin: 11/20/21 09:48 Dose: 1 tab Nicotine (Nicotine 21 Mg Patch.Td24) 21 mg TRANSDERMA DAILY [facility] Last Admin: 11/20/21 09:54 Dose: Not Given Nicotine Polacrilex (Nicotine Polacrilex 2 Mg Gum) 2 mg BUCCAL Q2H PRN PRN Reason: Nicotine Cravings Last Admin: 11/20/21 09:55 Dose: 2 mg Omeprazole (Omeprazole 20 Mg Capsule.Dr) 20 mg PO DAILY@0630 [facility] Last Admin: 11/20/21 09:52 Dose: 20 mg Risperidone (Risperidone 2 Mg Tablet) 2 mg PO BEDTIME [facility] Last Admin: 11/20/21 21:30 Dose: 2 mg Risperidone (Risperidone 2 Mg Tablet) 2 mg PO DAILY [facility] Last Admin: 11/20/21 09:51 Dose: 2 mg Torsemide (Torsemide 20 Mg Tablet) 20 mg PO BIDWM [facility]; Protocol Last Admin: 11/20/21 18:12 Dose: 20 mg Trazodone HCl (Trazodone Hcl 50 Mg Tablet) 50 mg PO BEDTIME PRN PRN Reason: Insomnia Last Admin: 11/08/21 21:48 Dose: 50 mg Trolamine Salicylate (Trolamine Salicylate 10 % Cream 85 Gm Tube) 1 appl TOPICAL TID PRN; Protocol PRN Reason: Pain, Mild (Pain Scale 1-3) Last Admin: 11/14/21 22:59 Dose: 1 appl Allergies Allergies Allergy/AdvReac Type Severity Reaction Status Date / Time olanzapine [From Zyprexa] Allergy Unknown Verified 09/03/21 14:49 prednisone Allergy Unknown Verified 09/03/21 14:49 NSAIDS (Non-Steroidal AdvReac Mild Abdominal Verified 09/03/21 14:49 Anti-Inflamma Pain Assessment & Plan Assessment & Plan (1) Schizophrenia, chronic condition: Status: Acute Code(s): F20.9 - Schizophrenia, unspecified (2) HTN (hypertension): Status: Acute Code(s): I10 - Essential (primary) hypertension Plan 11/16 continue current medications. 11/17 continue current medications. 11/18 continue current medication, 11/19 continue current medications, monitor EKG. 11/20 continue current medications. I spent minutes with the patient and/or on the patient floor today, greater than?50% of which was spent counseling/coordinating care. Reason for contiued inpatient stay Substantial Risk for: inability to function
[2021-11-20 09:19] LABS: Glucose, Whole Blood 143 mg/dL (60-115)
[2021-11-20 09:45] VITALS: BP 162/96; PULSE 98; RESP 18; TEMP 36.4; O2SAT 92
[2021-11-20] MEDS: Torsemide 20 MG TABLET PO ×2 (09:48→18:12)
[2021-11-20] MEDS: Multivitamin TABLET 1 TAB PO (09:48)
[2021-11-20] MEDS: Divalproex Sodium ER 250 MG TAB.ER.24H PO (09:51)
[2021-11-20] MEDS: carvediloL 6.25 MG TABLET PO ×2 (09:51→21:28)
[2021-11-20] MEDS: risperiDONE 2 MG TABLET PO ×2 (09:51→21:30)
[2021-11-20] MEDS: Magnesium Oxide 400 MG TABLET PO ×2 (09:51→18:12)
[2021-11-20] MEDS: Loratadine 10 MG TABLET PO (09:52)
[2021-11-20] MEDS: Losartan Potassium 50 MG TABLET PO (09:52)
[2021-11-20] MEDS: Folic Acid 1 MG TABLET PO (09:52)
[2021-11-20] MEDS: Lipase/Prot/Amylase 24/76/120K 1 CAP CAPSULE.DR PO ×3 (09:52→18:12)
[2021-11-20] MEDS: cloNIDine HCL 0.1 MG TABLET PO (09:52)
[2021-11-20] MEDS: Omeprazole 20 MG CAPSULE.DR PO (09:52)
[2021-11-20] MEDS: Insulin Glargine,Hum.rec.anlog 100 UNIT/ML 10 ML VIAL 16 UNIT SUBCUT (09:53)
[2021-11-20] MEDS: Nicotine Polacrilex 2 MG GUM BUCCAL (09:55)
[2021-11-20 12:43] LABS: Glucose, Whole Blood 242 mg/dL (60-115)
[2021-11-20] MEDS: Insulin Lispro 100 UNIT/ML 3 ML VIAL SUBCUT ×3 (13:18→21:27)
[2021-11-20] MEDS: chlorproMAZINE HCl 25 MG TABLET PO (13:18)
[2021-11-20 17:42] LABS: Glucose, Whole Blood 213 mg/dL (60-115)
--- NOTE | 2021-11-20 18:21 | PC.NURSE ---
Pt's BP was 181/110 hr 101, Mariia aware. Administered scheduled Torsemide, per Mariia will plan to add additional clonidine if BP is still elevated in evening
[2021-11-20 21:17] LABS: Glucose, Whole Blood 162 mg/dL (60-115)
[2021-11-20 21:28] VITALS: BP 139/78; PULSE 91; RESP 18; TEMP 36.6; O2SAT 95
[2021-11-20] MEDS: Divalproex Sodium ER 500 MG TAB.ER.24H PO (21:29)
[2021-11-20] MEDS: Acetaminophen 325 MG TABLET 650 MG PO (21:29)
[2021-11-21 09:23] VITALS: BP 166/89; PULSE 81; RESP 16; TEMP 36.8; O2SAT 92
[2021-11-21 09:25] LABS: Glucose, Whole Blood 136 mg/dL (60-115)
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
[2021-11-21] MEDS: Torsemide 20 MG TABLET PO ×2 (10:02→18:02)
[2021-11-21] MEDS: Losartan Potassium 50 MG TABLET PO (10:02)
[2021-11-21] MEDS: Multivitamin TABLET 1 TAB PO (10:02)
[2021-11-21] MEDS: Insulin Glargine,Hum.rec.anlog 100 UNIT/ML 10 ML VIAL 16 UNIT SUBCUT (10:02)
[2021-11-21] MEDS: Acetaminophen 325 MG TABLET 650 MG PO ×2 (10:03→15:44)
[2021-11-21] MEDS: carvediloL 6.25 MG TABLET PO (10:03)
[2021-11-21] MEDS: Folic Acid 1 MG TABLET PO (10:03)
[2021-11-21] MEDS: Magnesium Oxide 400 MG TABLET PO ×2 (10:03→18:02)
[2021-11-21] MEDS: Divalproex Sodium ER 250 MG TAB.ER.24H PO (10:03)
[2021-11-21] MEDS: Lipase/Prot/Amylase 24/76/120K 1 CAP CAPSULE.DR PO ×3 (10:03→18:02)
[2021-11-21] MEDS: Omeprazole 20 MG CAPSULE.DR PO (10:03)
[2021-11-21] MEDS: cloNIDine HCL 0.1 MG TABLET PO (10:04)
[2021-11-21] MEDS: Loratadine 10 MG TABLET PO (10:04)
[2021-11-21] MEDS: risperiDONE 2 MG TABLET PO (10:04)
[2021-11-21 12:33] LABS: Glucose, Whole Blood 151 mg/dL (60-115)
[2021-11-21] MEDS: Insulin Lispro 100 UNIT/ML 3 ML VIAL SUBCUT ×2 (12:59→18:02)
[2021-11-21] MEDS: Nicotine Polacrilex 2 MG GUM BUCCAL (13:36)
[2021-11-21 17:36] LABS: Glucose, Whole Blood 180 mg/dL (60-115)
[2021-11-21 23:00] VITALS: BP 110/63; PULSE 89; RESP 18; TEMP 36.6; O2SAT 96
[2021-11-21 23:31] LABS: Glucose, Whole Blood 137 mg/dL (60-115)
[2021-11-22 09:05] VITALS: BP 137/90; PULSE 70; RESP 18; TEMP 36.7; O2SAT 93
[2021-11-22 09:08] LABS: Glucose, Whole Blood 118 mg/dL (60-115)
[2021-11-22] MEDS: Insulin Glargine,Hum.rec.anlog 100 UNIT/ML 10 ML VIAL 16 UNIT SUBCUT (09:52)
[2021-11-22] MEDS: cloNIDine HCL 0.1 MG TABLET PO (09:53)
[2021-11-22] MEDS: Multivitamin TABLET 1 TAB PO (09:53)
[2021-11-22] MEDS: Magnesium Oxide 400 MG TABLET PO ×2 (09:53→18:40)
[2021-11-22] MEDS: Lipase/Prot/Amylase 24/76/120K 1 CAP CAPSULE.DR PO ×3 (09:53→16:35)
[2021-11-22] MEDS: Acetaminophen 325 MG TABLET 650 MG PO ×2 (09:53→20:51)
[2021-11-22] MEDS: Folic Acid 1 MG TABLET PO (09:54)
[2021-11-22] MEDS: carvediloL 6.25 MG TABLET PO ×2 (09:54→20:51)
[2021-11-22] MEDS: Loratadine 10 MG TABLET PO (09:54)
[2021-11-22] MEDS: risperiDONE 2 MG TABLET PO ×2 (09:54→20:51)
[2021-11-22] MEDS: Omeprazole 20 MG CAPSULE.DR PO (09:54)
[2021-11-22] MEDS: Torsemide 20 MG TABLET PO ×2 (09:54→16:35)
[2021-11-22] MEDS: Losartan Potassium 50 MG TABLET PO (09:54)
[2021-11-22] MEDS: Divalproex Sodium ER 250 MG TAB.ER.24H PO (09:54)
[2021-11-22 10:40] LABS: MANUAL DIFF FLAG NO
[2021-11-22 10:44] LABS: Basophils Absolute Auto 0.1 X10*3/uL (0.0-0.2); Basophils Percent Auto 0.7 % (0-2); Eosinophils Absolute Auto 0.2 X10*3/uL (0.0-0.4); Eosinophils Percent Auto 2.6 % (0-4); Hematocrit 40.9 % (37.0-47.0); Hemoglobin 13.8 g/dl (12.0-16.0); Imm Gran Abs Auto 0.01 X10*3/uL (0.00-0.03); Imm Gran Pct Auto 0.1 % (0.0-0.4); Lymphocytes Absolute Auto 4.5 X10*3/uL (1.2-4.9); Lymphocytes Percent Auto 58.8 % (20-40); Mean Corpuscular HGB Conc 33.7 g/dl (31.0-35.0); Mean Corpuscular Hemoglobin 30.4 pg (27.0-33.0); Mean Corpuscular Volume 90.1 fL (80.0-98.0); Mean Platelet Volume 12.1 fL (9.4-12.3); Monocytes Absolute Auto 1.1 X10*3/uL (0.1-1.2); Monocytes Percent Auto 13.9 % (2-11); Neutrophils Absolute Auto 1.8 x10*3/uL (2.0-8.3); Neutrophils Percent Auto 23.9 % (45-73); Platelet Count 387 X10*3/uL (160-400); Red Blood Count 4.54 X10*6/uL (4.20-5.50); Red Cell Distribution Width 15.7 % (11.0-16.0); White Blood Count 7.6 X10*3/uL (4.8-10.8)
--- NOTE | 2021-11-22 10:57 | HO.PSYCHPN ---
Subjective Subjective Date of Service: 11/22/21 Reason For Visit: Psychosis Subjective Notes: [place] Warning and Conditional Voluntary Healthcare Proxy: No Guardianship: No Medical Problems Affecting Mental Status: No Interim History: I spoke with pt, she says she is good, feels safe, sleep is good. States she is going home Tuesday, interested in VNA through [facility] but also says she is going to stay with her bf. reviewed lab work, including CMP, CBC, VPA 25. Has mildly elevated liver transaminase levels, hx of fatty liver disease. Provided education. Medication Compliance: Yes Side effects from medications: No Attending Groups: Intermittent Review of Systems Acute medical concerns: No Medical Review of Systems: unchanged Mental Status Exam Mental Status Exam Narrative: Appearance: casually groomed, fair hygiene in NAD Behavior:cooperative psychomotor: no agitation or retardation noted Speech:clear, some delayed in response, spontaneous Thought process: goal oriented, focused on discharge Thought content:paranoid towards peers and staff Mood: good Affect: constricted SI:denies HI:denies VH/AH:+AH Delusions:paranoid delusions Insight/judgment:poor x 2. Memory/cog: alert, oriented to place, not situation, month. pending [facility]oca Diagnostics Vital Signs (24Hr): Vital Signs - 24 hr 11/21/21 23:00 11/22/21 09:05 Temperature 97.9 F 98.1 F Pulse Rate 89 70 Respiratory Rate 18 18 Blood Pressure 110/63 137/90 H Pulse Oximetry 96 93 Oxygen Delivery Method Room Air Room Air BMI result Body Mass Index 28.9 Labs Results: 11/22/21 09:36 11/22/21 09:36 Labs: Laboratory Results - last 48 hr 11/20/21 11/20/21 11/20/21 12:39 17:38 21:13 WBC RBC Hgb Hct MCV MCH MCHC RDW Plt Count MPV Immature Gran % (Auto) Neut % (Auto) Lymph % (Auto) [place] % (Auto) Eos % (Auto) Baso % (Auto) Lymph # (Auto) [place] # (Auto) Eos # (Auto) Baso # (Auto) Abs Immat Gran (auto) Absolute Neuts (auto) Absolute Nucleated RBC Nucleated RBC % (auto) POC Glucose 242 H 213 H 162 H 11/21/21 11/21/21 11/21/21 09:16 12:28 17:31 WBC RBC Hgb Hct MCV MCH MCHC RDW Plt Count MPV Immature Gran % (Auto) Neut % (Auto) Lymph % (Auto) [place] % (Auto) Eos % (Auto) Baso % (Auto) Lymph # (Auto) [place] # (Auto) Eos # (Auto) Baso # (Auto) Abs Immat Gran (auto) Absolute Neuts (auto) Absolute Nucleated RBC Nucleated RBC % (auto) POC Glucose 136 H 151 H 180 H 11/21/21 11/22/21 11/22/21 23:14 09:02 09:36 WBC 7.6 RBC 4.54 Hgb 13.8 Hct 40.9 MCV 90.1 MCH 30.4 MCHC 33.7 RDW 15.7 Plt Count 387 MPV 12.1 Immature Gran % (Auto) 0.1 Neut % (Auto) 23.9 L Lymph % (Auto) 58.8 H [place] % (Auto) 13.9 H Eos % (Auto) 2.6 Baso % (Auto) 0.7 Lymph # (Auto) 4.5 [place] # (Auto) 1.1 Eos # (Auto) 0.2 Baso # (Auto) 0.1 Abs Immat Gran (auto) 0.01 Absolute Neuts (auto) 1.8 L Absolute Nucleated RBC 0.000 Nucleated RBC % (auto) 0.0 POC Glucose 137 H 118 H Medications Medications Current Medications Acetaminophen (Acetaminophen 325 Mg Tablet) 650 mg PO TID [facility] Last Admin: 11/22/21 09:53 Dose: 650 mg Al Hydroxide/Mg Hydroxide (Magnesium Hydrox/Alum Hydrox 30 Ml Oral.Susp) 30 ml PO Q6H PRN PRN Reason: Heartburn/Nausea Last Admin: 11/13/21 17:44 Dose: 30 ml Lipase/Protease/Amylase (Lipase/Prot/Amylase 24/76/120k 1 Cap Capsule.Dr) 1 cap PO TIDWM MARI Last Admin: 11/22/21 09:53 Dose: 1 cap Benzocaine (Throat Lozenge, Medicated Lozenge) 1 lozenge MUCOUS MEM Q2H PRN PRN Reason: Sore Throat Last Admin: 11/14/21 15:07 Dose: 1 lozenge Carvedilol (Carvedilol 6.25 Mg Tablet) 6.25 mg PO BID [facility]; Protocol Last Admin: 11/22/21 09:54 Dose: 6.25 mg Chlorpromazine HCl (Chlorpromazine Hcl 25 Mg Tablet) 25 mg PO Q6H PRN PRN Reason: agitation, psychosis Last Admin: 11/20/21 13:18 Dose: 25 mg Chlorpromazine HCl (Chlorpromazine Hcl 25 Mg Tablet) 50 mg PO Q4H PRN PRN Reason: severe agitation Last Admin: 11/13/21 17:44 Dose: 50 mg Clonidine HCl (Clonidine Hcl 0.1 Mg Tablet) 0.1 mg PO DAILY [facility]; Protocol Last Admin: 11/22/21 09:53 Dose: 0.1 mg Divalproex Sodium (Divalproex Sodium Er 250 Mg Tab.Er.24h) 250 mg PO DAILY [facility] Last Admin: 11/22/21 09:54 Dose: 250 mg Divalproex Sodium (Divalproex Sodium Er 500 Mg Tab.Er.24h) 500 mg PO BEDTIME [facility] Last Admin: 11/21/21 23:00 Dose: Not Given Folic Acid (Folic Acid 1 Mg Tablet) 1 mg PO DAILY [facility] Last Admin: 11/22/21 09:54 Dose: 1 mg Guaifenesin/Dextromethorphan (Guaifenesin Dm 600/30 1 Tab Tab.Er.12h) 1 tab PO BID PRN PRN Reason: congestion Last Admin: 10/30/21 21:37 Dose: 1 tab Insulin Glargine (Insulin Glargine,Hum.Rec.Anlog 100 Unit/Ml 10 Ml Vial) 16 unit SUBCUT DAILY [facility] Last Admin: 11/22/21 09:52 Dose: 16 unit Insulin Human Lispro (Insulin Lispro 100 Unit/Ml 3 Ml Vial) 0 unit SUBCUT QIDACHS [facility]; Protocol Last Admin: 11/22/21 09:54 Dose: Not Given Lactulose (Lactulose 20 Gm/30 Ml Solution) 20 gm PO BID [facility] Last Admin: 11/22/21 09:55 Dose: Not Given Loratadine (Loratadine 10 Mg Tablet) 10 mg PO DAILY [facility] Last Admin: 11/22/21 09:54 Dose: 10 mg Losartan Potassium (Losartan Potassium 50 Mg Tablet) 50 mg PO DAILY [facility]; Protocol Last Admin: 11/22/21 09:54 Dose: 50 mg Magnesium Hydroxide (Milk Of Magnesia 30 Ml Oral.Susp) 30 ml PO DAILY PRN PRN Reason: Constipation Last Admin: 11/05/21 23:30 Dose: 30 ml Magnesium Oxide (Magnesium Oxide 400 Mg Tablet) 400 mg PO BIDPC [facility] Last Admin: 11/22/21 09:53 Dose: 400 mg Melatonin (Melatonin 3 Mg Tablet) 3 mg PO BEDTIME PRN PRN Reason: insomnia Last Admin: 11/08/21 21:49 Dose: 3 mg Multi-Ingred Cream/Lotion/Oil/Oint (Mineral Oil/Petrolatum,White 106 Gm Tube) 1 appl TOPICAL BID PRN; Protocol PRN Reason: Dry Skin Last Admin: 11/15/21 12:03 Dose: 1 appl Multivitamins/Vitamin C (Multivitamin Tablet) 1 tab PO DAILY [facility] Last Admin: 11/22/21 09:53 Dose: 1 tab Nicotine (Nicotine 21 Mg Patch.Td24) 21 mg TRANSDERMA DAILY [facility] Last Admin: 11/22/21 09:55 Dose: Not Given Nicotine Polacrilex (Nicotine Polacrilex 2 Mg Gum) 2 mg BUCCAL Q2H PRN PRN Reason: Nicotine Cravings Last Admin: 11/21/21 13:36 Dose: 2 mg Omeprazole (Omeprazole 20 Mg Capsule.Dr) 20 mg PO DAILY@0630 [facility] Last Admin: 11/22/21 09:54 Dose: 20 mg Risperidone (Risperidone 2 Mg Tablet) 2 mg PO BEDTIME [facility] Last Admin: 11/21/21 23:00 Dose: Not Given Risperidone (Risperidone 2 Mg Tablet) 2 mg PO DAILY [facility] Last Admin: 11/22/21 09:54 Dose: 2 mg Torsemide (Torsemide 20 Mg Tablet) 20 mg PO BIDWM [facility]; Protocol Last Admin: 11/22/21 09:54 Dose: 20 mg Trazodone HCl (Trazodone Hcl 50 Mg Tablet) 50 mg PO BEDTIME PRN PRN Reason: Insomnia Last Admin: 11/08/21 21:48 Dose: 50 mg Trolamine Salicylate (Trolamine Salicylate 10 % Cream 85 Gm Tube) 1 appl TOPICAL TID PRN; Protocol PRN Reason: Pain, Mild (Pain Scale 1-3) Last Admin: 11/14/21 22:59 Dose: 1 appl Allergies Allergies Allergy/AdvReac Type Severity Reaction Status Date / Time olanzapine [From Zyprexa] Allergy Unknown Verified 09/03/21 14:49 prednisone Allergy Unknown Verified 09/03/21 14:49 NSAIDS (Non-Steroidal AdvReac Mild Abdominal Verified 09/03/21 14:49 Anti-Inflamma Pain Assessment & Plan Assessment & Plan (1) Schizophrenia, chronic condition: Status: Acute Code(s): F20.9 - Schizophrenia, unspecified (2) HTN (hypertension): Status: Acute Code(s): I10 - Essential (primary) hypertension Plan 11/16 continue current medications. 11/17 continue current medications. 11/18 continue current medication, 11/19 continue current medications, monitor EKG. 11/20 continue current medications. 11/21 continue current meds, pt worries about housing instability 11/22 no med changes, focused on housing, VPA level 25 I spent minutes with the patient and/or on the patient floor today, greater than?50% of which was spent counseling/coordinating care. Patient educated on: medication risk/benefits and therapeutic strategies Reason for contiued inpatient stay Substantial Risk for: inability to function, rapid decompensation and med/psych decompensation
[2021-11-22 11:12] LABS: Alanine Aminotransferase 104 U/L (0-31); Alkaline Phosphatase 341 U/L (39-117); Anion Gap 18 (12-20); Aspartate Amino Transferase 80 U/L (5-31); Bilirubin Total 0.7 mg/dL (0.0-1.0); Blood Urea Nitrogen 25 mg/dL (9-16); Calcium 9.6 mg/dL (8.4-10.2); Carbon Dioxide 26 mmol/L (22-29); Chloride 100 mmol/L (96-108); Creatinine Clr Calc Pharmacy 83.8; Estimated Glomerular Filt Rate > 60; Glucose Fasting 117 mg/dL (60-99); Potassium 4.8 mmol/L (3.3-5.1); Sodium 139 mmol/L (135-145); Total Protein 7.8 g/dL (6.5-8.0)
[2021-11-22 13:04] LABS: Glucose, Whole Blood 199 mg/dL (60-115)
[2021-11-22] MEDS: Insulin Lispro 100 UNIT/ML 3 ML VIAL SUBCUT ×2 (13:04→17:37)
[2021-11-22] MEDS: Nicotine Polacrilex 2 MG GUM BUCCAL (16:35)
[2021-11-22 17:37] LABS: Glucose, Whole Blood 228 mg/dL (60-115)
[2021-11-22 20:35] VITALS: BP 127/81; PULSE 102; RESP 18; TEMP 36.4; O2SAT 93
[2021-11-22 20:44] LABS: Glucose, Whole Blood 116 mg/dL (60-115)
[2021-11-22] MEDS: Divalproex Sodium ER 500 MG TAB.ER.24H PO (20:51)
[2021-11-23 08:40] VITALS: BP 132/81; PULSE 92; RESP 18; TEMP 36.6; O2SAT 94
[2021-11-23] MEDS: carvediloL 6.25 MG TABLET PO ×2 (08:57→20:29)
[2021-11-23] MEDS: Magnesium Oxide 400 MG TABLET PO ×2 (08:57→17:44)
[2021-11-23] MEDS: cloNIDine HCL 0.1 MG TABLET PO (08:57)
[2021-11-23] MEDS: Losartan Potassium 50 MG TABLET PO (08:57)
[2021-11-23] MEDS: Divalproex Sodium ER 250 MG TAB.ER.24H PO (08:57)
[2021-11-23] MEDS: Omeprazole 20 MG CAPSULE.DR PO (08:57)
[2021-11-23] MEDS: Lipase/Prot/Amylase 24/76/120K 1 CAP CAPSULE.DR PO ×3 (08:57→17:44)
[2021-11-23] MEDS: Loratadine 10 MG TABLET PO (08:57)
[2021-11-23] MEDS: risperiDONE 2 MG TABLET PO ×2 (08:58→20:29)
[2021-11-23] MEDS: Folic Acid 1 MG TABLET PO (08:58)
[2021-11-23] MEDS: Acetaminophen 325 MG TABLET 650 MG PO ×3 (08:58→20:29)
[2021-11-23] MEDS: Torsemide 20 MG TABLET PO ×2 (08:58→17:51)
[2021-11-23] MEDS: Insulin Glargine,Hum.rec.anlog 100 UNIT/ML 10 ML VIAL 16 UNIT SUBCUT (09:05)
[2021-11-23 09:10] LABS: Glucose, Whole Blood 132 mg/dL (60-115)
--- NOTE | 2021-11-23 12:18 | P.PNPSI_ITS ---
Subjective Subjective Date of Service: 11/23/21 Reason For Visit: Psychosis Subjective Notes: [place] Warning and Conditional Voluntary Healthcare Proxy: No Guardianship: No Medical Problems Affecting Mental Status: No Interim History: Pt is focused on discharge tomorrow, says her bf said she can stay with him, feels safe. Mood is good. denies physical health concerns. says lactulose makes her stomach hurt and she has been refusing this 3-4 days, had a BM and feels better. Recommended she discuss with her PCP. Encouraged hydration. Medication Compliance: Yes Side effects from medications: No Attending Groups: Intermittent Review of Systems Acute medical concerns: No Medical Review of Systems: unchanged Mental Status Exam Mental Status Exam Narrative: Appearance: casually groomed, fair hygiene in NAD Behavior:cooperative psychomotor: no agitation or retardation noted Speech:clear, some delayed in response, spontaneous Thought process: goal oriented, focused on discharge Thought content:paranoid towards peers and staff Mood: good Affect: constricted SI:denies HI:denies VH/AH:+AH Delusions:paranoid delusions Insight/judgment:poor x 2. Memory/cog: alert, oriented to place, not situation, month. pending [facility] Diagnostics Vital Signs (24Hr): Vital Signs - 24 hr 11/22/21 20:35 Temperature 97.6 F Pulse Rate 102 H Respiratory Rate 18 Blood Pressure 127/81 Pulse Oximetry 93 Oxygen Delivery Method Room Air BMI result Body Mass Index 28.9 Labs Results: 11/22/21 09:36 11/22/21 09:36 Labs: Laboratory Results - last 48 hr 11/21/21 11/21/21 11/21/21 12:28 17:31 23:14 WBC RBC Hgb Hct MCV MCH MCHC RDW Plt Count MPV Immature Gran % (Auto) Neut % (Auto) Lymph % (Auto) [place] % (Auto) Eos % (Auto) Baso % (Auto) Lymph # (Auto) [place] # (Auto) Eos # (Auto) Baso # (Auto) Abs Immat Gran (auto) Absolute Neuts (auto) Absolute Nucleated RBC Nucleated RBC % (auto) Sodium Potassium Chloride Carbon Dioxide Anion Gap BUN Creatinine Estim Creat Clear Calc Estimated GFR POC Glucose 151 H 180 H 137 H Fasting Glucose Calcium Total Bilirubin AST ALT Alkaline Phosphatase Total Protein Albumin Valproic Acid 11/22/21 11/22/21 11/22/21 09:02 09:36 09:36 WBC 7.6 RBC 4.54 Hgb 13.8 Hct 40.9 MCV 90.1 MCH 30.4 MCHC 33.7 RDW 15.7 Plt Count 387 MPV 12.1 Immature Gran % (Auto) 0.1 Neut % (Auto) 23.9 L Lymph % (Auto) 58.8 H [place] % (Auto) 13.9 H Eos % (Auto) 2.6 Baso % (Auto) 0.7 Lymph # (Auto) 4.5 [place] # (Auto) 1.1 Eos # (Auto) 0.2 Baso # (Auto) 0.1 Abs Immat Gran (auto) 0.01 Absolute Neuts (auto) 1.8 L Absolute Nucleated RBC 0.000 Nucleated RBC % (auto) 0.0 Sodium 139 Potassium 4.8 Chloride 100 Carbon Dioxide 26 Anion Gap 18 BUN 25 H Creatinine 0.89 Estim Creat Clear Calc 83.8 Estimated GFR > 60 POC Glucose 118 H Fasting Glucose 117 H Calcium 9.6 Total Bilirubin 0.7 AST 80 H ALT 104 H Alkaline Phosphatase 341 H Total Protein 7.8 Albumin 4.0 Valproic Acid 25.0 L 11/22/21 11/22/21 11/22/21 12:59 17:33 20:19 WBC RBC Hgb Hct MCV MCH MCHC RDW Plt Count MPV Immature Gran % (Auto) Neut % (Auto) Lymph % (Auto) [place] % (Auto) Eos % (Auto) Baso % (Auto) Lymph # (Auto) [place] # (Auto) Eos # (Auto) Baso # (Auto) Abs Immat Gran (auto) Absolute Neuts (auto) Absolute Nucleated RBC Nucleated RBC % (auto) Sodium Potassium Chloride Carbon Dioxide Anion Gap BUN Creatinine Estim Creat Clear Calc Estimated GFR POC Glucose 199 H 228 H 116 H Fasting Glucose Calcium Total Bilirubin AST ALT Alkaline Phosphatase Total Protein Albumin Valproic Acid 11/23/21 09:06 WBC RBC Hgb Hct MCV MCH MCHC RDW Plt Count MPV Immature Gran % (Auto) Neut % (Auto) Lymph % (Auto) [place] % (Auto) Eos % (Auto) Baso % (Auto) Lymph # (Auto) [place] # (Auto) Eos # (Auto) Baso # (Auto) Abs Immat Gran (auto) Absolute Neuts (auto) Absolute Nucleated RBC Nucleated RBC % (auto) Sodium Potassium Chloride Carbon Dioxide Anion Gap BUN Creatinine Estim Creat Clear Calc Estimated GFR POC Glucose 132 H Fasting Glucose Calcium Total Bilirubin AST ALT Alkaline Phosphatase Total Protein Albumin Valproic Acid Medications Medications Current Medications Acetaminophen (Acetaminophen 325 Mg Tablet) 650 mg PO TID [facility] Last Admin: 11/23/21 08:58 Dose: 650 mg Al Hydroxide/Mg Hydroxide (Magnesium Hydrox/Alum Hydrox 30 Ml Oral.Susp) 30 ml PO Q6H PRN PRN Reason: Heartburn/Nausea Last Admin: 11/13/21 17:44 Dose: 30 ml Lipase/Protease/Amylase (Lipase/Prot/Amylase 24/76/120k 1 Cap Capsule.Dr) 1 cap PO TIDWM [facility]I Last Admin: 11/23/21 08:57 Dose: 1 cap Benzocaine (Throat Lozenge, Medicated Lozenge) 1 lozenge MUCOUS MEM Q2H PRN PRN Reason: Sore Throat Last Admin: 11/14/21 15:07 Dose: 1 lozenge Carvedilol (Carvedilol 6.25 Mg Tablet) 6.25 mg PO BID [facility]; Protocol Last Admin: 11/23/21 08:57 Dose: 6.25 mg Chlorpromazine HCl (Chlorpromazine Hcl 25 Mg Tablet) 25 mg PO Q6H PRN PRN Reason: agitation, psychosis Last Admin: 11/20/21 13:18 Dose: 25 mg Chlorpromazine HCl (Chlorpromazine Hcl 25 Mg Tablet) 50 mg PO Q4H PRN PRN Reason: severe agitation Last Admin: 11/13/21 17:44 Dose: 50 mg Clonidine HCl (Clonidine Hcl 0.1 Mg Tablet) 0.1 mg PO DAILY [facility]; Protocol Last Admin: 11/23/21 08:57 Dose: 0.1 mg Divalproex Sodium (Divalproex Sodium Er 250 Mg Tab.Er.24h) 250 mg PO DAILY [facility] Last Admin: 11/23/21 08:57 Dose: 250 mg Divalproex Sodium (Divalproex Sodium Er 500 Mg Tab.Er.24h) 500 mg PO BEDTIME [facility] Last Admin: 11/22/21 20:51 Dose: 500 mg Folic Acid (Folic Acid 1 Mg Tablet) 1 mg PO DAILY [facility] Last Admin: 11/23/21 08:58 Dose: 1 mg Guaifenesin/Dextromethorphan (Guaifenesin Dm 600/30 1 Tab Tab.Er.12h) 1 tab PO BID PRN PRN Reason: congestion Last Admin: 10/30/21 21:37 Dose: 1 tab Insulin Glargine (Insulin Glargine,Hum.Rec.Anlog 100 Unit/Ml 10 Ml Vial) 16 unit SUBCUT DAILY [facility] Last Admin: 11/23/21 09:05 Dose: 16 unit Insulin Human Lispro (Insulin Lispro 100 Unit/Ml 3 Ml Vial) 0 unit SUBCUT QIDACHS [facility]; Protocol Last Admin: 11/23/21 09:10 Dose: Not Given Lactulose (Lactulose 20 Gm/30 Ml Solution) 20 gm PO BID [facility] Last Admin: 11/23/21 10:52 Dose: Not Given Loratadine (Loratadine 10 Mg Tablet) 10 mg PO DAILY [facility] Last Admin: 11/23/21 08:57 Dose: 10 mg Losartan Potassium (Losartan Potassium 50 Mg Tablet) 50 mg PO DAILY [facility]; Protocol Last Admin: 11/23/21 08:57 Dose: 50 mg Magnesium Hydroxide (Milk Of Magnesia 30 Ml Oral.Susp) 30 ml PO DAILY PRN PRN Reason: Constipation Last Admin: 11/05/21 23:30 Dose: 30 ml Magnesium Oxide (Magnesium Oxide 400 Mg Tablet) 400 mg PO BIDPC [facility] Last Admin: 11/23/21 08:57 Dose: 400 mg Melatonin (Melatonin 3 Mg Tablet) 3 mg PO BEDTIME PRN PRN Reason: insomnia Last Admin: 11/08/21 21:49 Dose: 3 mg Multi-Ingred Cream/Lotion/Oil/Oint (Mineral Oil/Petrolatum,White 106 Gm Tube) 1 appl TOPICAL BID PRN; Protocol PRN Reason: Dry Skin Last Admin: 11/15/21 12:03 Dose: 1 appl Multivitamins/Vitamin C (Multivitamin Tablet) 1 tab PO DAILY [facility] Last Admin: 11/22/21 09:53 Dose: 1 tab Nicotine (Nicotine 21 Mg Patch.Td24) 21 mg TRANSDERMA DAILY [facility] Last Admin: 11/23/21 10:52 Dose: Not Given Nicotine Polacrilex (Nicotine Polacrilex 2 Mg Gum) 2 mg BUCCAL Q2H PRN PRN Reason: Nicotine Cravings Last Admin: 11/22/21 16:35 Dose: 2 mg Omeprazole (Omeprazole 20 Mg Capsule.Dr) 20 mg PO DAILY@0630 [facility] Last Admin: 11/23/21 08:57 Dose: 20 mg Risperidone (Risperidone 2 Mg Tablet) 2 mg PO BEDTIME [facility] Last Admin: 11/22/21 20:51 Dose: 2 mg Risperidone (Risperidone 2 Mg Tablet) 2 mg PO DAILY [facility] Last Admin: 11/23/21 08:58 Dose: 2 mg Torsemide (Torsemide 20 Mg Tablet) 20 mg PO BIDWM [facility]; Protocol Last Admin: 11/23/21 08:58 Dose: 20 mg Trazodone HCl (Trazodone Hcl 50 Mg Tablet) 50 mg PO BEDTIME PRN PRN Reason: Insomnia Last Admin: 11/08/21 21:48 Dose: 50 mg Trolamine Salicylate (Trolamine Salicylate 10 % Cream 85 Gm Tube) 1 appl TOPIC AL TID PRN; Protocol PRN Reason: Pain, Mild (Pain Scale 1-3) Last Admin: 11/14/21 22:59 Dose: 1 appl Allergies Allergies Allergy/AdvReac Type Severity Reaction Status Date / Time olanzapine [From Zyprexa] Allergy Unknown Verified 09/03/21 14:49 prednisone Allergy Unknown Verified 09/03/21 14:49 NSAIDS (Non-Steroidal AdvReac Mild Abdominal Verified 09/03/21 14:49 Anti-Inflamma Pain Assessment & Plan Assessment & Plan (1) Schizophrenia, chronic condition: Status: Acute Code(s): F20.9 - Schizophrenia, unspecified (2) HTN (hypertension): Status: Acute Code(s): I10 - Essential (primary) hypertension Plan 11/16 continue current medications. 11/17 continue current medications. 11/18 continue current medication, 11/19 continue current medications, monitor EKG. 11/20 continue current medications. 11/21 continue current meds, pt worries about housing instability 11/22 no med changes, focused on housing, VPA level 25 11/23 no med changes, pt refusing lactulose I spent minutes with the patient and/or on the patient floor today, greater than?50% of which was spent counseling/coordinating care. Patient educated on: medication risk/benefits Reason for contiued inpatient stay Substantial Risk for: inability to function, rapid decompensation and med/psych decompensation
[2021-11-23 12:58] LABS: Glucose, Whole Blood 157 mg/dL (60-115)
[2021-11-23] MEDS: Multivitamin TABLET 1 TAB PO (12:58)
[2021-11-23] MEDS: Insulin Lispro 100 UNIT/ML 3 ML VIAL SUBCUT ×3 (12:58→20:30)
[2021-11-23 17:50] LABS: Glucose, Whole Blood 168 mg/dL (60-115)
[2021-11-23 20:12] LABS: Glucose, Whole Blood 177 mg/dL (60-115)
[2021-11-23 20:25] VITALS: BP 158/84; PULSE 87; RESP 18; TEMP 36.3; O2SAT 95
[2021-11-23] MEDS: Divalproex Sodium ER 500 MG TAB.ER.24H PO (20:28)
[2021-11-24 06:00] VITALS: BP 112/83; PULSE 96; RESP 18; TEMP 36.3; O2SAT 96
[2021-11-24] MEDS: Losartan Potassium 50 MG TABLET PO (09:04)
[2021-11-24] MEDS: risperiDONE 2 MG TABLET PO (09:05)
[2021-11-24] MEDS: cloNIDine HCL 0.1 MG TABLET PO (09:05)
[2021-11-24] MEDS: carvediloL 6.25 MG TABLET PO (09:05)
[2021-11-24] MEDS: Folic Acid 1 MG TABLET PO (09:05)
[2021-11-24] MEDS: Divalproex Sodium ER 250 MG TAB.ER.24H PO (09:05)
[2021-11-24] MEDS: Omeprazole 20 MG CAPSULE.DR PO (09:05)
[2021-11-24] MEDS: Torsemide 20 MG TABLET PO (09:05)
[2021-11-24] MEDS: Acetaminophen 325 MG TABLET 650 MG PO (09:05)
[2021-11-24] MEDS: Loratadine 10 MG TABLET PO (09:05)
[2021-11-24] MEDS: Lipase/Prot/Amylase 24/76/120K 1 CAP CAPSULE.DR PO ×2 (09:05→13:07)
[2021-11-24] MEDS: Multivitamin TABLET 1 TAB PO (09:05)
[2021-11-24] MEDS: Magnesium Oxide 400 MG TABLET PO (09:05)
[2021-11-24] MEDS: Insulin Glargine,Hum.rec.anlog 100 UNIT/ML 10 ML VIAL 16 UNIT SUBCUT (09:06)
[2021-11-24 09:07] LABS: Glucose, Whole Blood 119 mg/dL (60-115)
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
[2021-11-24 13:07] LABS: Glucose, Whole Blood 120 mg/dL (60-115)
--- NOTE | 2021-11-24 14:20 | PC.NURSE ---
Patient discharged to home. All belongings taken with patient. Discharge follow up appointments reviewed with patient, reported understanding. Medications reviewed with patients, next dose and administration time. Reports understanding. Denies mood disturbances, denies SI/HI plan or intent. Denies A/V hallucinations, no overt psychosis or expressed delusions. Crisis numbers provided.
== END 2021-11-24 14:15 | disposition home health service (06) | DRG 750 ==
LOC: HO.ED 18:15 → HO.PADLT16 10-29 17:26
PROVIDERS: Emergency Medicine; Registered Nurse; Social Worker; Admitting Provider Psychiatry & Neurology Psychiatry; Emergency Provider Emergency Medicine Emergency Medical Services; Visit Provider Psychiatry & Neurology Psychiatry
DX: F20.0 Paranoid schizophrenia (principal); I13.0 Hypertensive heart and chronic kidney disease with heart failure and stage 1 through stage 4 chronic kidney disease, or unspecified chronic kidney disease; E11.22 Type 2 diabetes mellitus with diabetic chronic kidney disease; I50.22 Chronic systolic (congestive) heart failure; N18.2 Chronic kidney disease, stage 2 (mild); Z20.822 Contact with and (suspected) exposure to COVID-19; Z88.6 Allergy status to analgesic agent; Z88.8 Allergy status to other drugs, medicaments and biological substances; Z79.4 Long term (current) use of insulin; Z79.899 Other long term (current) drug therapy
CPT/HCPCS: 36415; 80053; 80061; 80143; 80164; 80179; 80307; 81025; 82077; 82140; 82607; 82746; 82947; 83690; 83735; 83880; 84439; 84443; 84484; 85007; 85025; 85027; 85610; 85730; 87635; 93005; 99285

== ENCOUNTER 2022-08-13 17:39 | Inpatient (IN) | payer OTHER, SELFPAY ==
[2022-08-13 18:47] LABS: Ammonia 54 umol/L (13-55)
[2022-08-13 19:08] LABS: Valproate 107.6 mcg/mL (50.0-100.0)
[2022-08-13 20:59] VITALS: BMI 30.3
[2022-08-13 22:00] VITALS: BP 106/57; PULSE 72; RESP 16; TEMP 36.3; O2SAT 94
[2022-08-13] MEDS: Divalproex Sodium 500 MG TABLET.DR 1000 MG PO (22:33)
[2022-08-13] MEDS: Benztropine Mesylate 0.5 MG TABLET PO (22:34)
[2022-08-13] MEDS: carvediloL 6.25 MG TABLET PO (22:34)
[2022-08-13] MEDS: risperiDONE 3 MG TABLET PO (22:34)
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
[2022-08-14] MEDS: Omeprazole 20 MG CAPSULE.DR PO (05:58)
[2022-08-14 07:30] VITALS: BP 152/90; PULSE 86; RESP 15; TEMP 36.4; O2SAT 93
[2022-08-14 07:54] LABS: Alanine Aminotransferase 13 U/L (0-31); Albumin Level 2.8 g/dL (3.5-5.0); Alkaline Phosphatase 131 U/L (39-117); Anion Gap 12 (12-20); Aspartate Amino Transferase 20 U/L (5-31); Bilirubin Direct 0.1 mg/dL (0.0-0.5); Bilirubin Total 0.3 mg/dL (0.0-1.0); Blood Urea Nitrogen 17 mg/dL (9-16); Calcium 9.1 mg/dL (8.4-10.2); Carbon Dioxide 27 mmol/L (22-29); Chloride 96 mmol/L (96-108); Creatinine Clr Calc Pharmacy 96.6; Estimated Glomerular Filt Rate > 60; Glucose Fasting 172 mg/dL (60-99); Potassium 4.5 mmol/L (3.3-5.1); Sodium 130 mmol/L (135-145); Total Protein 6.7 g/dL (6.5-8.0)
[2022-08-14 08:07] LABS: Glucose, Whole Blood 178 mg/dL (60-115)
[2022-08-14 08:07] LABS: Folate 17.4 ng/mL (> or = 4.0); Free T4 (Free Thyroxine) 0.95 ng/dL (0.71-1.85); Thyroid Stimulating Hormone 5.17 uIU/mL (0.32-4.0); Vitamin B12 1706 pg/mL (200-900)
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
[2022-08-14 11:40] LABS: Glucose, Whole Blood 184 mg/dL (60-115)
[2022-08-14] MEDS: Insulin Lispro 100 UNIT/ML 3 ML VIAL SUBCUT (12:06)
[2022-08-14] MEDS: carvediloL 6.25 MG TABLET PO (12:07)
[2022-08-14] MEDS: Multivitamin TABLET 1 TAB PO (12:07)
[2022-08-14] MEDS: cloNIDine HCL 0.1 MG TABLET PO (12:07)
[2022-08-14] MEDS: Magnesium Oxide 400 MG TABLET PO (12:08)
[2022-08-14] MEDS: Divalproex Sodium 500 MG TABLET.DR 1000 MG PO (12:08)
[2022-08-14] MEDS: Benztropine Mesylate 0.5 MG TABLET PO (12:08)
[2022-08-14] MEDS: Folic Acid 1 MG TABLET PO (12:08)
--- NOTE | 2022-08-14 12:36 | P.CONHOSP_ITS ---
History of Present Illness Data of Consult Service Date: 08/14/22 Requesting physician: Felix Yoon Primary Care Provider: Jaki Bishop MD [facility] Reason for consult: medical H&P 56 year old female with history of insulin dependent type 2 diabetes, chronic constipation, HFpEF, schizophrenia/bipolar disorder, chronic pancreatitis, htn admitted to Psychiatry with consult placed to hospitalist Medicine for medical H and P. She was admitted from [facility] where she was admitted for acute exacerbation of congestive heart failure complicated by hyponatremia following IV diuresis with Lasix. On discharge, sodium improved to 125 the patient had been refusing blood draws. She was started on urea after being followed by Nephrology. Currently, she denies any dyspnea on exertion, orthopnea, PND, shortness of breath at rest, lightheadedness, or chest pain. She is still experiencing swelling in the bilateral lower extremities but states this is greatly improved following admission at [facility]. She is not currently on any diuretics. She denies any complaints at this time. No alcohol use, illicit drug use, or cigarette smoking. Review of Systems Review of Systems: General: No fevers, malaise, unintentional weight loss HEENT: No blurred vision, diplopia. No sore throat, nasal congestion, rhinorrhea, sinus pain, ear pain Cardiovascular: No chest pain, palpitations. +BLE edema Respiratory: No shortness of breath, wheezing, cough GI: No abdominal pain, nausea, vomiting, diarrhea, constipation, melena, hematochezia : No dysuria, hematuria, increased urinary frequency, decreased urinary output MSK: No myalgia, back pain Neuro: No headaches, weakness, paresthesias Skin: No rashes or lesions COUNTS INCLUDE 234 BEDS AT THE [facility] Medical History Anemia Asthma Biventricular heart failure Chronic low back pain Chronic pancreatitis Cirrhosis of liver CKD (chronic kidney disease) Class 2 obesity Diabetes Dyshidrotic eczema Pulmonary arterial hypertension Schizophrenia, paranoid type Steatohepatitis Surgical History History of splenectomy Hx of cholecystectomy Social History Household Members: None Housing: Apartment Housing Other:: Lives in section 8 housing in an apartment Do you presently have visiting nurse or other home services: Yes ([facility] through [employer]) Patient Tobacco Use Status: Former Tobacco user Tobacco use type: Cigarette Cigarette Packs Per Day: 0.25 Cigarettes Per Day: 5.0 Years Smoked: 40 e-Cigarette/Vaping Use: Never Used Second Hand Smoke Exposure: No Use of substances other than those prescribed or required for medical reasons: No Substance Use Type: Crack/Cocaine, Opiates and Prescription Drugs Currently Displaying Signs/Symptoms of Drug Intoxication Withdrawal: No Spiritual Healthcare Practices: NA Advance Directives: No Advance Directives Information Provided: No Do you have thoughts of harming others: None Do you have a plan to hurt others: No Plan Nutrition Risks: No Nutritional Risk Patient : No : No Poor oral hygiene: No service: No Sexual orientation: Straight/Heterosexual Meds Allergies Allergy/AdvReac Type Severity Reaction Status Date / Time olanzapine [From Zyprexa] Allergy Unknown Verified 09/03/21 14:49 prednisone Allergy Unknown Verified 09/03/21 14:49 NSAIDS (Non-Steroidal AdvReac Mild Abdominal Verified 09/03/21 14:49 Anti-Inflamma Pain Active Medications: Current Medications Acetaminophen (Acetaminophen 325 Mg Tablet) 650 mg PO Q6H PRN PRN Reason: Headache/Pain Mild Scale (1-3) Al Hydroxide/Mg Hydroxide (Magnesium Hydrox/Alum Hydrox 30 Ml Oral.Susp) 30 ml PO Q6H PRN PRN Reason: Heartburn/Nausea Benztropine Mesylate (Benztropine Mesylate 0.5 Mg Tablet) 0.5 mg PO BID [facility] Last Admin: 08/14/22 12:08 Dose: 0.5 mg Carvedilol (Carvedilol 3.125 Mg Tablet) 3.125 mg PO BID [facility]; Protocol Clonidine HCl (Clonidine Hcl 0.1 Mg Tablet) 0.1 mg PO DAILY [facility]; Protocol Last Admin: 08/14/22 12:07 Dose: 0.1 mg Divalproex Sodium (Divalproex Sodium 500 Mg Tablet.Dr) 1,000 mg PO BID [facility] Last Admin: 08/14/22 12:08 Dose: 1,000 mg Folic Acid (Folic Acid 1 Mg Tablet) 1 mg PO DAILY [facility] Last Admin: 08/14/22 12:08 Dose: 1 mg Furosemide (Furosemide 20 Mg Tablet) 20 mg PO DAILY [facility]; Protocol Guaifenesin (Guaifenesin 100 Mg/5 Ml Liquid) 5 ml PO TID PRN PRN Reason: Cough Hydroxyzine HCl (Hydroxyzine Hcl 25 Mg Tablet) 25 mg PO Q6H PRN PRN Reason: Anxiety Insulin Human Lispro (Insulin Lispro 100 Unit/Ml 3 Ml Vial) 1 unit SUBCUT TIDAC [facility] Last Admin: 08/14/22 12:07 Dose: Not Given Lactulose (Lactulose 20 Gm/30 Ml Solution) 20 gm PO BID [facility] Last Admin: 08/14/22 12:14 Dose: Not Given Magnesium Hydroxide (Milk Of Magnesia 30 Ml Oral.Susp) 30 ml PO DAILY PRN PRN Reason: Constipation Magnesium Oxide (Magnesium Oxide 400 Mg Tablet) 400 mg PO DAILY [facility] Last Admin: 08/14/22 12:08 Dose: 400 mg Multivitamins/Vitamin C (Multivitamin Tablet) 1 tab PO DAILY [facility] Last Admin: 08/14/22 12:07 Dose: 1 tab Omeprazole (Omeprazole 20 Mg Capsule.Dr) 20 mg PO DAILY@0630 [facility] Last Admin: 08/14/22 05:58 Dose: 20 mg Paliperidone (Paliperidone Er 6 Mg Tab.Er.24) 6 mg PO BEDTIME [facility] Risperidone (Risperidone 3 Mg Tablet) 3 mg PO BEDTIME [facility] Last Admin: 08/13/22 22:34 Dose: 3 mg Tiotropium [place] (Tiotropium [place] 2.5 Mcg Inhaler) 2 puff INHALE DAILY [facility] Last Admin: 08/14/22 12:14 Dose: Not Given Trazodone HCl (Trazodone Hcl 50 Mg Tablet) 50 mg PO BEDTIME MRX1 PRN PRN Reason: Insomnia Urea (Urea 15 Gm Powder) 15 gm PO BID [facility] Last Admin: 08/14/22 12:14 Dose: Not Given Home Medications Medication Instructions Recorded Confirmed Last Taken Type folic acid 1 mg tablet 1 tab PO DAILY 10/28/21 08/13/22 08/13/22 History 1 mg insulin glargine 100 unit/mL (3 6 unit subcut DAILY 10/28/21 10/28/21 08/13/22 08:35 History mL) subcutaneous pen (Lantus Solostar U-100 Insulin) melatonin 3 mg tablet 1 tab PO BEDTIME PRN insomnia 10/28/21 10/28/21 Unknown History pantoprazole 40 mg tablet,delayed 1 tab PO DAILY 10/28/21 08/13/22 08/13/22 05:35 History release benztropine 0.5 mg tablet 0.5 mg PO BID 08/13/22 08/13/22 08/13/22 08:35 History divalproex 500 mg tablet,delayed 1,000 mg PO BID 08/13/22 08/13/22 08/13/22 08:35 History release guaifenesin 100 mg/5 mL oral 10 mg PO TID PRN Cough 08/13/22 08/13/22 Unknown History liquid (Danette-Tussin) insulin lispro 1 units subcut TID 2-10 units per 08/13/22 08/13/22 08/13/22 08:35 History sliding scale magnesium oxide 400 mg PO DAILY 08/13/22 08/13/22 08/13/22 08:35 History paliperidone 6 mg PO BEDTIME 08/13/22 08/13/22 Unknown History risperidone 2 mg tablet 3 mg PO BEDTIME 08/13/22 08/13/22 Unknown History tiotropium bromide 2.5 2 puff inhalation DAILY 08/13/22 08/13/22 Unknown History mcg/actuation mist for inhalation urea 15 gram oral powder packet 15 packet PO BID 08/13/22 08/13/22 08/13/22 08:35 History Physical Exam Vital Signs and Narrative: Vital Signs: Last Vital Signs Temp 97.4 F 08/13/22 22:00 Pulse 72 08/13/22 22:00 Resp 16 08/13/22 22:00 BP 106/57 L 08/13/22 22:00 Pulse Ox 94 08/13/22 22:00 O2 Del Method Room Air 08/13/22 22:00 BMI result Body Mass Index 30.3 Constitutional - Awake and Alert, No apparent distress Eyes - PERRLA, EOMI Cardiovascular - S1S2, RRR, 2+ BLE edema Respiratory - Normal lung expansion, Normal respiratory effort, No respiratory distress, CTA bilaterally Gastrointestinal - NT / ND; +BS; No rebound or guarding Extremities - no calf tenderness bilaterally, no swelling Musculoskeletal - Normal inspection, normal ROM Skin - Warm/Dry Neurological - Alert & oriented x3, CN II-XII in tact, 5/5 strength BUE and BLE Psychological - Appropriate affect Results Labs 08/14/22 06:51 Labs: Laboratory Results - last 24 hr 08/13/22 08/13/22 08/14/22 18:28 18:28 06:51 Anion Gap 12 Estim Creat Clear Calc 96.6 Estimated GFR > 60 POC Glucose Fasting Glucose 172 H Calcium 9.1 Total Bilirubin 0.3 Direct Bilirubin 0.1 AST 20 ALT 13 Alkaline Phosphatase 131 H Ammonia 54 Total Protein 6.7 Albumin 2.8 L Vitamin B12 1706 H Folate 17.4 TSH 5.17 H Free T4 0.95 Valproic Acid 107.6 H 08/14/22 08/14/22 07:46 11:31 Anion Gap Estim Creat Clear Calc Estimated GFR POC Glucose 178 H 184 H Fasting Glucose Calcium Total Bilirubin Direct Bilirubin AST ALT Alkaline Phosphatase Ammonia Total Protein Albumin Vitamin B12 Folate TSH Free T4 Valproic Acid Assessment and Plan (1) Chronic hyponatremia: Status: Acute (2) Routine medical exam: Status: Acute Plan 56 year old female with history of insulin dependent type 2 diabetes, chronic constipation, HFpEF, schizophrenia/bipolar disorder, chronic pancreatitis, htn admitted to Psychiatry with consult placed to hospitalist Medicine for medical H and P. #Mood disorder/psychosis -plan per psychiatry #HFpEF- clinically no acute exacerbation -recent admission at [facility] 08/04-. Normal systolic LV function, EF 55-60%, 4+TR -Complicated by hyponatremia. Will resume low dose lasix 20mg. Follow BMP -reduce carvedilol to 3.125 mg b.i.d. as per hospital discharge instructions #Chronic hyponatremia- r/t SIADH ue to diuretic use and ?psych medications -Urine osmolality 207 at [facility] -Continue urea per nephrology at [facility] -Resume low dose lasix as above, follow bmp # insulin-dependent type 2 diabetes -continue home basal insulin -continue standing Humalog and sliding scale which he is using at home -POC glucose -diabetic diet if tolerated # chronic constipation -continue lactulose # chronic pancreatitis -continue pancreatic enzymes # hypertension -reasonably controlled -continue carvedilol, clonidine, resume Lasix Thank you for allowing me to participate in this consult. Signing off at this time. Please do not hesitate to call for further questions. Time Spent With Patient Time: Total time managing care of this patient today ____ minutes.
[2022-08-14] MEDS: Lipase/Prot/Amylase 24/76/120K 1 CAP CAPSULE.DR PO (16:30)
[2022-08-14 16:35] LABS: Glucose, Whole Blood 139 mg/dL (60-115)
[2022-08-15] MEDS: Omeprazole 20 MG CAPSULE.DR PO (06:26)
[2022-08-15 07:42] LABS: Glucose, Whole Blood 157 mg/dL (60-115)
--- NOTE | 2022-08-15 10:50 | P.PNPSI_ITS ---
Subjective Subjective Date of Service: 08/15/22 Reason For Visit: psychosis Interim History: pt seen in milieu. irritable, critical. per staff, refused meds and POC last night, refused labs draw x 2, refused meds thus far today. Mental Status Exam Mental Status Exam Narrative: In hospital attire, hair short, adequately groomed. Good eye contact, attentive. No Tics or Tremors. No abnormal involuntary movements. no PMA/PMR. cooperative. incr rate, amount of speech. nml prosody, decr latency. affect is constricted, hyper-intense, non-labile. no SI/HI/AVH expressed. Thoughts foc used on feeling staff here are not treating her with respect. No known cognitive or memory impairment. Insight/ Judgment impaired. Diagnostics Vital Signs (24Hr): BMI result Body Mass Index 30.3 Labs 08/14/22 06:51 Labs: Laboratory Results - last 48 hr 08/13/22 08/13/22 08/14/22 18:28 18:28 06:51 Sodium 130 L Potassium 4.5 Chloride 96 Carbon Dioxide 27 Anion Gap 12 BUN 17 H Creatinine 0.73 Estim Creat Clear Calc 96.6 Estimated GFR > 60 POC Glucose Fasting Glucose 172 H Calcium 9.1 Total Bilirubin 0.3 Direct Bilirubin 0.1 AST 20 ALT 13 Alkaline Phosphatase 131 H Ammonia 54 Total Protein 6.7 Albumin 2.8 L Vitamin B12 1706 H Folate 17.4 TSH 5.17 H Free T4 0.95 Valproic Acid 107.6 H 08/14/22 08/14/22 08/14/22 07:46 11:31 16:30 Sodium Potassium Chloride Carbon Dioxide Anion Gap BUN Creatinine Estim Creat Clear Calc Estimated GFR POC Glucose 178 H 184 H 139 H Fasting Glucose Calcium Total Bilirubin Direct Bilirubin AST ALT Alkaline Phosphatase Ammonia Total Protein Albumin Vitamin B12 Folate TSH Free T4 Valproic Acid 08/15/22 07:32 Sodium Potassium Chloride Carbon Dioxide Anion Gap BUN Creatinine Estim Creat Clear Calc Estimated GFR POC Glucose 157 H Fasting Glucose Calcium Total Bilirubin Direct Bilirubin AST ALT Alkaline Phosphatase Ammonia Total Protein Albumin Vitamin B12 Folate TSH Free T4 Valproic Acid Medications Medications Current Medications Acetaminophen (Acetaminophen 325 Mg Tablet) 650 mg PO Q6H PRN PRN Reason: Headache/Pain Mild Scale (1-3) Al Hydroxide/Mg Hydroxide (Magnesium Hydrox/Alum Hydrox 30 Ml Oral.Susp) 30 ml PO Q6H PRN PRN Reason: Heartburn/Nausea Lipase/Protease/Amylase (Lipase/Prot/Amylase 24/76/120k 1 Cap Capsule.) 1 cap PO TIDWM [facility] Last Admin: 08/14/22 16:30 Dose: 1 cap Benztropine Mesylate (Benztropine Mesylate 0.5 Mg Tablet) 0.5 mg PO BID [facility] Last Admin: 08/14/22 22:24 Dose: Not Given Carvedilol (Carvedilol 3.125 Mg Tablet) 3.125 mg PO BID [facility]; Protocol Last Admin: 08/14/22 22:24 Dose: Not Given Clonidine HCl (Clonidine Hcl 0.1 Mg Tablet) 0.1 mg PO DAILY [facility]; Protocol Last Admin: 08/14/22 12:07 Dose: 0.1 mg Divalproex Sodium (Divalproex Sodium 500 Mg Tablet.) 1,000 mg PO BID [facility] Last Admin: 08/14/22 22:25 Dose: Not Given Folic Acid (Folic Acid 1 Mg Tablet) 1 mg PO DAILY [facility] Last Admin: 08/14/22 12:08 Dose: 1 mg Furosemide (Furosemide 20 Mg Tablet) 20 mg PO DAILY [facility]; Protocol Last Admin: 08/14/22 15:31 Dose: Not Given Glucose (Glucose Gel 15 Gm Gel..Gram.) 15 gm PO Q15M PRN; Protocol PRN Reason: per Hypoglycemia Standing Ord. Guaifenesin (Guaifenesin 100 Mg/5 Ml Liquid) 5 ml PO TID PRN PRN Reason: Cough Hydroxyzine HCl (Hydroxyzine Hcl 50 Mg Tablet) 50 mg PO TID PRN PRN Reason: Anxiety Dextrose (D10) 250 mls @ 750 mls/hr IV Q15M PRN; Protocol PRN Reason: per Hypoglycemia Standing Ord. Insulin Glargine (Insulin Glargine,Hum.Rec.Anlog 100 Unit/Ml 10 Ml Vial) 6 unit SUBCUT DAILY [facility] Insulin Human Lispro (Insulin Lispro 100 Unit/Ml 3 Ml Vial) 0 unit SUBCUT QIDACHS [facility]; Protocol Last Admin: 08/14/22 22:25 Dose: Not Given Lactulose (Lactulose 20 Gm/30 Ml Solution) 20 gm PO BID [facility] Last Admin: 08/14/22 22:25 Dose: Not Given Magnesium Hydroxide (Milk Of Magnesia 30 Ml Oral.Susp) 30 ml PO DAILY PRN PRN Reason: Constipation Magnesium Oxide (Magnesium Oxide 400 Mg Tablet) 400 mg PO DAILY [facility] Last Admin: 08/14/22 12:08 Dose: 400 mg Multivitamins/Vitamin C (Multivitamin Tablet) 1 tab PO DAILY [facility] Last Admin: 08/14/22 12:07 Dose: 1 tab Omeprazole (Omeprazole 20 Mg Capsule.Dr) 20 mg PO DAILY@0630 [facility] Last Admin: 08/15/22 06:26 Dose: 20 mg Paliperidone (Paliperidone Er 9 Mg Tab.Er.24) 9 mg PO BEDTIME [facility] Last Admin: 08/14/22 22:25 Dose: Not Given Senna/Docusate Sodium (Sennosides/Docusate Sodium Tablet) 1 tab PO BID PRN PRN Reason: Constipation Thiamine HCl (Thiamine Hcl 100 Mg Tablet) 100 mg PO DAILY [facility] Tiotropium Opp (Tiotropium [place] 2.5 Mcg Inhaler) 2 puff INHALE DAILY [facility] Last Admin: 08/14/22 12:14 Dose: Not Given Trazodone HCl (Trazodone Hcl 50 Mg Tablet) 50 mg PO BEDTIME MRX1 PRN PRN Reason: Insomnia Urea (Urea 15 Gm Powder) 15 gm PO BID [facility] Last Admin: 08/14/22 22:26 Dose: Not Given Allergies Allergies Allergy/AdvReac Type Severity Reaction Status Date / Time olanzapine [From Zyprexa] Allergy Unknown Verified 09/03/21 14:49 prednisone Allergy Unknown Verified 09/03/21 14:49 NSAIDS (Non-Steroidal AdvReac Mild Abdominal Verified 09/03/21 14:49 Anti-Inflamma Pain Assessment & Plan Assessment & Plan (1) Schizophrenia, chronic condition: Status: Acute Code(s): F20.9 - Schizophrenia, unspecified Plan 08/14: continue medications as established during medical stay at [facility] 08/04 - 08/13. stabilize psychiatrically. develop dispo plan. 08/15: pt refusing medications and care since admission. TSH mildly elevated, would recheck prior to discharge. continue to offer medications as prescribed. Reason for continued inpatient stay Substantial Risk for: inability to function and rapid decompensation Time Spent With Patient Time: Total time managing care of this patient today ____ minutes.
[2022-08-15 11:33] LABS: Glucose, Whole Blood 98 mg/dL (60-115)
[2022-08-15] MEDS: Lipase/Prot/Amylase 24/76/120K 1 CAP CAPSULE.DR PO (17:54)
[2022-08-15 18:00] VITALS: BP 130/82; PULSE 76; RESP 18; TEMP 36.2; O2SAT 95
[2022-08-15] MEDS: Lactulose 20 GM/30 ML SOLUTION PO (20:48)
[2022-08-15] MEDS: carvediloL 3.125 MG TABLET PO (20:48)
[2022-08-15] MEDS: Divalproex Sodium 500 MG TABLET.DR 1000 MG PO (20:48)
[2022-08-15] MEDS: Paliperidone ER 9 MG TAB.ER.24 PO (20:48)
[2022-08-15] MEDS: Urea 15 GM POWDER PO (20:48)
[2022-08-15] MEDS: Benztropine Mesylate 0.5 MG TABLET PO (20:48)
[2022-08-15 20:59] LABS: Glucose, Whole Blood 120 mg/dL (60-115)
[2022-08-16 07:52] LABS: Glucose, Whole Blood 114 mg/dL (60-115)
[2022-08-16 08:03] LABS: Anion Gap 13 (12-20); Blood Urea Nitrogen 21 mg/dL (9-16); Calcium 9.4 mg/dL (8.4-10.2); Carbon Dioxide 23 mmol/L (22-29); Chloride 99 mmol/L (96-108); Creatinine Clr Calc Pharmacy 91.6; Estimated Glomerular Filt Rate > 60; Glucose Random 102 mg/dL (60-115); Potassium 4.8 mmol/L (3.3-5.1); Sodium 130 mmol/L (135-145)
--- NOTE | 2022-08-16 10:51 | HO.PSYCHPN ---
Subjective Subjective Date of Service: 08/16/22 Reason For Visit: psychosis Interim History: similar presentation to yesterday. asleep, rousable, declines to get up. says she wants to go home. per staff, took meds last night, had breakfast this morning. refusing meds this morning. Mental Status Exam Mental Status Exam Narrative: In hospital attire, hair short, adequately groomed. inattentive. No Tics or Tremors. No abnormal involuntary movements. no PMA/PMR. not cooperative. decr rate, amount of speech, prosody. incr latency. affect is constricted, hypo-intense, non-labile. no SI/HI/AVH expressed. Thoughts focused on wating to go home No known cognitive or memory impairment. Insight/ Judgment impaired. Diagnostics Vital Signs (24Hr): Vital Signs - 24 hr 08/15/22 18:00 Temperature 97.2 F Pulse Rate 76 Respiratory Rate 18 Blood Pressure 130/82 Pulse Oximetry 95 Oxygen Delivery Method Room Air BMI result Body Mass Index 30.3 Labs 08/16/22 07:42 Labs: Laboratory Results - last 48 hr 08/14/22 08/14/22 08/15/22 11:31 16:30 07:32 Sodium Potassium Chloride Carbon Dioxide Anion Gap BUN Creatinine Estim Creat Clear Calc Estimated GFR POC Glucose 184 H 139 H 157 H Random Glucose Calcium 08/15/22 08/15/22 08/16/22 11:29 20:47 07:38 Sodium Potassium Chloride Carbon Dioxide Anion Gap BUN Creatinine Estim Creat Clear Calc Estimated GFR POC Glucose 98 120 H 114 Random Glucose Calcium 08/16/22 07:42 Sodium 130 L Potassium 4.8 Chloride 99 Carbon Dioxide 23 Anion Gap 13 BUN 21 H Creatinine 0.77 Estim Creat Clear Calc 91.6 Estimated GFR > 60 POC Glucose Random Glucose 102 Calcium 9.4 Medications Medications Current Medications Acetaminophen (Acetaminophen 325 Mg Tablet) 650 mg PO Q6H PRN PRN Reason: Headache/Pain Mild Scale (1-3) Al Hydroxide/Mg Hydroxide (Magnesium Hydrox/Alum Hydrox 30 Ml Oral.Susp) 30 ml PO Q6H PRN PRN Reason: Heartburn/Nausea Lipase/Protease/Amylase (Lipase/Prot/Amylase 24/76/120k 1 Cap Capsule.) 1 cap PO TIDWM MARI Last Admin: 08/15/22 17:54 Dose: 1 cap Benztropine Mesylate (Benztropine Mesylate 0.5 Mg Tablet) 0.5 mg PO BID [facility] Last Admin: 08/15/22 20:48 Dose: 0.5 mg Carvedilol (Carvedilol 3.125 Mg Tablet) 3.125 mg PO BID [facility]; Protocol Last Admin: 08/15/22 20:48 Dose: 3.125 mg Clonidine HCl (Clonidine Hcl 0.1 Mg Tablet) 0.1 mg PO DAILY [facility]; Protocol Last Admin: 08/15/22 11:06 Dose: Not Given Divalproex Sodium (Divalproex Sodium 500 Mg Tablet.Dr) 1,000 mg PO BID [facility] Last Admin: 08/15/22 20:48 Dose: 1,000 mg Folic Acid (Folic Acid 1 Mg Tablet) 1 mg PO DAILY [facility] Last Admin: 08/15/22 11:06 Dose: Not Given Furosemide (Furosemide 20 Mg Tablet) 20 mg PO DAILY [facility]; Protocol Last Admin: 08/15/22 11:06 Dose: Not Given Glucose (Glucose Gel 15 Gm Gel..Gram.) 15 gm PO Q15M PRN; Protocol PRN Reason: per Hypoglycemia Standing Ord. Guaifenesin (Guaifenesin 100 Mg/5 Ml Liquid) 5 ml PO TID PRN PRN Reason: Cough Hydroxyzine HCl (Hydroxyzine Hcl 50 Mg Tablet) 50 mg PO TID PRN PRN Reason: Anxiety Dextrose (D10) 250 mls @ 750 mls/hr IV Q15M PRN; Protocol PRN Reason: per Hypoglycemia Standing Ord. Insulin Glargine (Insulin Glargine,Hum.Rec.Anlog 100 Unit/Ml 10 Ml Vial) 6 unit SUBCUT DAILY [facility] Last Admin: 08/15/22 11:06 Dose: Not Given Insulin Human Lispro (Insulin Lispro 100 Unit/Ml 3 Ml Vial) 0 unit SUBCUT QIDACHS [facility]; Protocol Last Admin: 08/16/22 09:39 Dose: Not Given Lactulose (Lactulose 20 Gm/30 Ml Solution) 20 gm PO BID [facility] Last Admin: 08/15/22 20:48 Dose: 20 gm Magnesium Hydroxide (Milk Of Magnesia 30 Ml Oral.Susp) 30 ml PO DAILY PRN PRN Reason: Constipation Magnesium Oxide (Magnesium Oxide 400 Mg Tablet) 400 mg PO DAILY [facility] Last Admin: 08/15/22 11:07 Dose: Not Given Multivitamins/Vitamin C (Multivitamin Tablet) 1 tab PO DAILY [facility] Last Admin: 08/15/22 11:07 Dose: Not Given Omeprazole (Omeprazole 20 Mg Capsule.Dr) 20 mg PO DAILY@0630 [facility] Last Admin: 08/16/22 05:33 Dose: Not Given Paliperidone (Paliperidone Er 9 Mg Tab.Er.24) 9 mg PO BEDTIME [facility] Last Admin: 08/15/22 20:48 Dose: 9 mg Senna/Docusate Sodium (Sennosides/Docusate Sodium Tablet) 1 tab PO BID PRN PRN Reason: Constipation Thiamine HCl (Thiamine Hcl 100 Mg Tablet) 100 mg PO DAILY [facility] Last Admin: 08/15/22 11:07 Dose: Not Given Tiotropium [place] (Tiotropium [place] 18 Mcg Cap.W.Dev) 1 puff INHALE RDAILY [facility] Trazodone HCl (Trazodone Hcl 50 Mg Tablet) 50 mg PO BEDTIME MRX1 PRN PRN Reason: Insomnia Urea (Urea 15 Gm Powder) 15 gm PO BID [facility] Last Admin: 08/15/22 20:48 Dose: 15 gm Allergies Allergies Allergy/AdvReac Type Severity Reaction Status Date / Time olanzapine [From Zyprexa] Allergy Unknown Verified 09/03/21 14:49 prednisone Allergy Unknown Verified 09/03/21 14:49 NSAIDS (Non-Steroidal AdvReac Mild Abdominal Verified 09/03/21 14:49 Anti-Inflamma Pain Assessment & Plan Assessment & Plan (1) Schizophrenia, chronic condition: Status: Acute Code(s): F20.9 - Schizophrenia, unspecified Plan 08/14: continue medications as established during medical stay at [facility] 08/04 - 08/13. stabilize psychiatrically. develop dispo plan. 08/15: pt refusing medications and care since admission. TSH mildly elevated, would recheck prior to discharge. continue to offer medications as prescribed. 08/16: partial compliance with care. continue current mgmt. Reason for continued inpatient stay Substantial Risk for: inability to function and rapid decompensation Time Spent With Patient Time: Total time managing care of this patient today ____ minutes.
[2022-08-16 11:20] VITALS: BP 184/93; PULSE 84; RESP 18; TEMP 36.1; O2SAT 94
[2022-08-16] MEDS: Benztropine Mesylate 0.5 MG TABLET PO ×2 (11:22→20:30)
[2022-08-16] MEDS: Omeprazole 20 MG CAPSULE.DR PO (11:22)
[2022-08-16] MEDS: Multivitamin TABLET 1 TAB PO (11:22)
[2022-08-16] MEDS: Magnesium Oxide 400 MG TABLET PO (11:22)
[2022-08-16] MEDS: Lipase/Prot/Amylase 24/76/120K 1 CAP CAPSULE.DR PO ×2 (11:22→16:44)
[2022-08-16] MEDS: carvediloL 3.125 MG TABLET PO ×2 (11:22→20:29)
[2022-08-16] MEDS: Furosemide 20 MG TABLET PO (11:22)
[2022-08-16] MEDS: Folic Acid 1 MG TABLET PO (11:22)
[2022-08-16] MEDS: cloNIDine HCL 0.1 MG TABLET PO (11:22)
[2022-08-16] MEDS: Divalproex Sodium 500 MG TABLET.DR 1000 MG PO ×2 (11:22→20:30)
[2022-08-16] MEDS: Urea 15 GM POWDER PO ×2 (11:23→20:30)
[2022-08-16] MEDS: Thiamine HCL 100 MG TABLET PO (11:23)
[2022-08-16] MEDS: Insulin Glargine,Hum.rec.anlog 100 UNIT/ML 10 ML VIAL 6 UNIT SUBCUT (11:23)
[2022-08-16] MEDS: Lactulose 20 GM/30 ML SOLUTION PO ×2 (11:24→20:30)
[2022-08-16 11:37] LABS: Glucose, Whole Blood 147 mg/dL (60-115)
[2022-08-16 12:33] VITALS: BP 113/67; PULSE 82
[2022-08-16 16:40] LABS: Glucose, Whole Blood 91 mg/dL (60-115)
[2022-08-16 18:00] VITALS: BP 127/86; PULSE 78; RESP 18; TEMP 36.1; O2SAT 95
--- NOTE | 2022-08-16 18:54 | PC.NURSE ---
At approximately 1845 Bharti started yelling and exhibiting paranoia. She was accusing her roommate of stealing her items and being racist towards her. She's not that sick! If she can feels that her skin is being pinched she knows what's going on! Bharti was commenting on how her roommate Hugs and kisses everyone but me! Bharti was perseverative on her roommate Not really being that sick! She was receptive to staff support and redirectable and was able to calm down.
[2022-08-16] MEDS: Paliperidone ER 9 MG TAB.ER.24 PO (20:29)
[2022-08-16 21:03] LABS: Glucose, Whole Blood 147 mg/dL (60-115)
[2022-08-17 07:59] LABS: Glucose, Whole Blood 74 mg/dL (60-115)
[2022-08-17] MEDS: Insulin Lispro 100 UNIT/ML 3 ML VIAL SUBCUT (11:28)
[2022-08-17 11:29] LABS: Glucose, Whole Blood 157 mg/dL (60-115)
[2022-08-17] MEDS: Insulin Glargine,Hum.rec.anlog 100 UNIT/ML 10 ML VIAL 6 UNIT SUBCUT (11:29)
[2022-08-17 11:30] VITALS: BP 139/86; PULSE 83; RESP 18; TEMP 36.3; O2SAT 94
[2022-08-17] MEDS: carvediloL 3.125 MG TABLET PO ×2 (11:33→21:03)
[2022-08-17] MEDS: Omeprazole 20 MG CAPSULE.DR PO (11:34)
[2022-08-17] MEDS: cloNIDine HCL 0.1 MG TABLET PO (11:34)
[2022-08-17] MEDS: Thiamine HCL 100 MG TABLET PO (11:35)
[2022-08-17] MEDS: Lipase/Prot/Amylase 24/76/120K 1 CAP CAPSULE.DR PO ×2 (11:35→16:47)
[2022-08-17] MEDS: Furosemide 20 MG TABLET PO (11:36)
[2022-08-17] MEDS: Divalproex Sodium 500 MG TABLET.DR 1000 MG PO ×2 (11:36→21:02)
[2022-08-17] MEDS: Magnesium Oxide 400 MG TABLET PO (11:36)
[2022-08-17] MEDS: Benztropine Mesylate 0.5 MG TABLET PO ×2 (11:37→21:03)
[2022-08-17] MEDS: Multivitamin TABLET 1 TAB PO (11:37)
[2022-08-17] MEDS: Folic Acid 1 MG TABLET PO (11:37)
[2022-08-17] MEDS: Lactulose 20 GM/30 ML SOLUTION PO ×2 (12:21→21:08)
[2022-08-17] MEDS: Urea 15 GM POWDER PO ×2 (12:22→21:07)
[2022-08-17 13:10] LABS: Anion Gap 14 (12-20); Blood Urea Nitrogen 27 mg/dL (9-16); Calcium 9.4 mg/dL (8.4-10.2); Carbon Dioxide 24 mmol/L (22-29); Chloride 98 mmol/L (96-108); Estimated Glomerular Filt Rate > 60; Glucose Random 137 mg/dL (60-115); Potassium 4.9 mmol/L (3.3-5.1); Sodium 131 mmol/L (135-145)
--- NOTE | 2022-08-17 15:39 | P.PNPSI_ITS ---
Subjective Subjective Date of Service: 08/17/22 Reason For Visit: psychosis Subjective Notes: Conditional Voluntary Healthcare Proxy: Yes Mental Status Exam Mental Status Exam Narrative: In hospital attire, hair short, adequately groomed. inattentive. No Tics or Tremors. No abnormal involuntary movements. no PMA/PMR. not cooperative. decr rate, amount of speech, prosody. incr latency. affect is constricted, hypo- intense, non-labile. no SI/HI/AVH expressed. Thoughts focused on wating to go home No known cognitive or memory impairment. Insight/ Judgment impaired.pressured hyperfocused Diagnostics Vital Signs (24Hr): Vital Signs - 24 hr 08/16/22 18:00 08/17/22 11:30 Temperature 97 F 97.3 F Pulse Rate 78 83 Respiratory Rate 18 18 Blood Pressure 127/86 139/86 Pulse Oximetry 95 94 Oxygen Delivery Method Room Air Room Air BMI result Body Mass Index 30.3 Labs 08/17/22 12:28 Labs: Laboratory Results - last 48 hr 08/15/22 08/16/22 08/16/22 20:47 07:38 07:42 Sodium 130 L Potassium 4.8 Chloride 99 Carbon Dioxide 23 Anion Gap 13 BUN 21 H Creatinine 0.77 Estim Creat Clear Calc 91.6 Estimated GFR > 60 POC Glucose 120 H 114 Random Glucose 102 Calcium 9.4 08/16/22 08/16/22 08/16/22 11:32 16:33 20:28 Sodium Potassium Chloride Carbon Dioxide Anion Gap BUN Creatinine Estim Creat Clear Calc Estimated GFR POC Glucose 147 H 91 147 H Random Glucose Calcium 08/17/22 08/17/22 08/17/22 07:45 11:19 12:28 Sodium 131 L Potassium 4.9 Chloride 98 Carbon Dioxide 24 Anion Gap 14 BUN 27 H Creatinine 0.81 Estim Creat Clear Calc 87.0 Estimated GFR > 60 POC Glucose 74 157 H Random Glucose 137 H Calcium 9.4 Medications Medications Current Medications Acetaminophen (Acetaminophen 325 Mg Tablet) 650 mg PO Q6H PRN PRN Reason: Headache/Pain Mild Scale (1-3) Al Hydroxide/Mg Hydroxide (Magnesium Hydrox/Alum Hydrox 30 Ml Oral.Susp) 30 ml PO Q6H PRN PRN Reason: Heartburn/Nausea Lipase/Protease/Amylase (Lipase/Prot/Amylase 24/76/120k 1 Cap Capsule.Dr) 1 cap PO TIDWM MARI Last Admin: 08/17/22 11:35 Dose: 1 cap Benztropine Mesylate (Benztropine Mesylate 0.5 Mg Tablet) 0.5 mg PO BID [facility] Last Admin: 08/17/22 11:37 Dose: 0.5 mg Carvedilol (Carvedilol 3.125 Mg Tablet) 3.125 mg PO BID [facility]; Protocol Last Admin: 08/17/22 11:33 Dose: 3.125 mg Clonidine HCl (Clonidine Hcl 0.1 Mg Tablet) 0.1 mg PO DAILY [facility]; Protocol Last Admin: 08/17/22 11:34 Dose: 0.1 mg Divalproex Sodium (Divalproex Sodium 500 Mg Tablet.Dr) 1,000 mg PO BID [facility] Last Admin: 08/17/22 11:36 Dose: 1,000 mg Folic Acid (Folic Acid 1 Mg Tablet) 1 mg PO DAILY [facility] Last Admin: 08/17/22 11:37 Dose: 1 mg Furosemide (Furosemide 20 Mg Tablet) 20 mg PO DAILY [facility]; Protocol Last Admin: 08/17/22 11:36 Dose: 20 mg Glucose (Glucose Gel 15 Gm Gel..Gram.) 15 gm PO Q15M PRN; Protocol PRN Reason: per Hypoglycemia Standing Ord. Guaifenesin (Guaifenesin 100 Mg/5 Ml Liquid) 5 ml PO TID PRN PRN Reason: Cough Hydroxyzine HCl (Hydroxyzine Hcl 50 Mg Tablet) 50 mg PO TID PRN PRN Reason: Anxiety Dextrose (D10) 250 mls @ 750 mls/hr IV Q15M PRN; Protocol PRN Reason: per Hypoglycemia Standing Ord. Insulin Glargine (Insulin Glargine,Hum.Rec.Anlog 100 Unit/Ml 10 Ml Vial) 6 unit SUBCUT DAILY [facility] Last Admin: 08/17/22 11:29 Dose: 6 unit Insulin Human Lispro (Insulin Lispro 100 Unit/Ml 3 Ml Vial) 0 unit SUBCUT QIDACHS [facility]; Protocol Last Admin: 08/17/22 11:28 Dose: 2 unit Lactulose (Lactulose 20 Gm/30 Ml Solution) 20 gm PO BID [facility] Last Admin: 08/17/22 12:21 Dose: 20 gm Magnesium Hydroxide (Milk Of Magnesia 30 Ml Oral.Susp) 30 ml PO DAILY PRN PRN Reason: Constipation Magnesium Oxide (Magnesium Oxide 400 Mg Tablet) 400 mg PO DAILY [facility] Last Admin: 08/17/22 11:36 Dose: 400 mg Multivitamins/Vitamin C (Multivitamin Tablet) 1 tab PO DAILY [facility] Last Admin: 08/17/22 11:37 Dose: 1 tab Omeprazole (Omeprazole 20 Mg Capsule.Dr) 20 mg PO DAILY@0630 [facility] Last Admin: 08/17/22 11:34 Dose: 20 mg Paliperidone (Paliperidone Er 9 Mg Tab.Er.24) 9 mg PO BEDTIME [facility] Last Admin: 08/16/22 20:29 Dose: 9 mg Senna/Docusate Sodium (Sennosides/Docusate Sodium Tablet) 1 tab PO BID PRN PRN Reason: Constipation Thiamine HCl (Thiamine Hcl 100 Mg Tablet) 100 mg PO DAILY [facility] Last Admin: 08/17/22 11:35 Dose: 100 mg Tiotropium [place] (Tiotropium [place] 18 Mcg Cap.W.Dev) 1 puff INHALE RDAILY [facility] Last Admin: 08/17/22 11:31 Dose: 1 puff Trazodone HCl (Trazodone Hcl 50 Mg Tablet) 50 mg PO BEDTIME MRX1 PRN PRN Reason: Insomnia Urea (Urea 15 Gm Powder) 15 gm PO BID [facility] Last Admin: 08/17/22 12:22 Dose: 15 gm Allergies Allergies Allergy/AdvReac Type Severity Reaction Status Date / Time olanzapine [From Zyprexa] Allergy Unknown Verified 09/03/21 14:49 prednisone Allergy Unknown Verified 09/03/21 14:49 NSAIDS (Non-Steroidal AdvReac Mild Abdominal Verified 09/03/21 14:49 Anti-Inflamma Pain Assessment & Plan Assessment & Plan (1) Schizophrenia, chronic condition: Status: Acute Code(s): F20.9 - Schizophrenia, unspecified Plan 08/14: continue medications as established during medical stay at [facility] 08/04 - 08/13. stabilize psychiatrically. develop dispo plan. 08/15: pt refusing medications and care since admission. TSH mildly elevated, would recheck prior to discharge. continue to offer medications as prescribed. 08/16: partial compliance with care. continue current mgmt. 08/17/2022 Sodium somewhat decreased but 130 since patient appears better stabilized she is on urea unclear the veracity of multiple medical conditions that she states she has suffered from new Invega encourage med compliance trying get additional history Reason for continued inpatient stay Substantial Risk for: inability to function, rapid decompensation and med/psych decompensation Time Spent With Patient Time: Total time managing care of this patient today ____ minutes.
[2022-08-17 16:15] LABS: Glucose, Whole Blood 89 mg/dL (60-115)
--- NOTE | 2022-08-17 17:00 | PC.NURSE ---
Addendum entered and electronically signed by Marilyn Sánchez RN 08/17/22 19:18: Doris Deleon, hospitalist, addressed hyponatremia during consult on 08/14/22. Original Note: Addendum entered and electronically signed by Marilyn Sánchez RN 08/17/22 19:13: H&P on admission reviewed, Sodium level was 119 while at [facility] prior to admission to this hospital; Dr Bauer updated. Original Note: Dr Bauer notified of Sodium level of 131, BUN 27; ? need for fluid restriction. No new orders at present time.
[2022-08-17 18:00] VITALS: BP 125/63; PULSE 76; RESP 18; TEMP 36.9; O2SAT 96
[2022-08-17 20:08] LABS: Glucose, Whole Blood 114 mg/dL (60-115)
[2022-08-17] MEDS: Paliperidone ER 9 MG TAB.ER.24 PO (21:03)
[2022-08-18] MEDS: Omeprazole 20 MG CAPSULE.DR PO (06:04)
[2022-08-18 07:46] LABS: Glucose, Whole Blood 111 mg/dL (60-115)
[2022-08-18 07:50] VITALS: BP 120/89; PULSE 79; RESP 20; TEMP 36.4; O2SAT 95
[2022-08-18] MEDS: Insulin Glargine,Hum.rec.anlog 100 UNIT/ML 10 ML VIAL 6 UNIT SUBCUT (08:32)
[2022-08-18] MEDS: Urea 15 GM POWDER PO ×2 (08:34→21:02)
[2022-08-18] MEDS: Lactulose 20 GM/30 ML SOLUTION PO ×2 (08:34→21:04)
[2022-08-18] MEDS: Furosemide 20 MG TABLET PO (08:35)
[2022-08-18] MEDS: Divalproex Sodium 500 MG TABLET.DR 1000 MG PO ×2 (08:35→21:02)
[2022-08-18] MEDS: Magnesium Oxide 400 MG TABLET PO (08:35)
[2022-08-18] MEDS: Lipase/Prot/Amylase 24/76/120K 1 CAP CAPSULE.DR PO ×3 (08:36→16:30)
[2022-08-18] MEDS: Folic Acid 1 MG TABLET PO (08:36)
[2022-08-18] MEDS: Thiamine HCL 100 MG TABLET PO (08:36)
[2022-08-18] MEDS: Benztropine Mesylate 0.5 MG TABLET PO ×2 (08:37→21:02)
[2022-08-18] MEDS: carvediloL 3.125 MG TABLET PO ×2 (08:37→21:02)
[2022-08-18] MEDS: cloNIDine HCL 0.1 MG TABLET PO (08:37)
[2022-08-18] MEDS: Multivitamin TABLET 1 TAB PO (08:37)
[2022-08-18] MEDS: Insulin Lispro 100 UNIT/ML 3 ML VIAL SUBCUT (11:33)
[2022-08-18 11:43] LABS: Glucose, Whole Blood 154 mg/dL (60-115)
[2022-08-18 16:19] LABS: Glucose, Whole Blood 125 mg/dL (60-115)
[2022-08-18 19:00] VITALS: BP 123/65; PULSE 77; RESP 16; TEMP 35.7; O2SAT 94
[2022-08-18] MEDS: traZODone HCL 50 MG TABLET PO (21:02)
[2022-08-18] MEDS: Paliperidone ER 9 MG TAB.ER.24 PO (21:02)
[2022-08-18] MEDS: Acetaminophen 325 MG TABLET 650 MG PO (21:03)
[2022-08-18 21:29] LABS: Glucose, Whole Blood 109 mg/dL (60-115)
--- NOTE | 2022-08-18 23:02 | HO.PSYCHPN ---
Subjective Subjective Date of Service: 08/18/22 Reason For Visit: psychosis Interim History: pt passive withdrawn pressured speech paranoid concerns Medication Compliance: Intermittent Attending Groups: No Mental Status Exam Mental Status Exam Patient Appearance: Fatigued Patient Orientation: Person and Place Level of Consciousness: Awake Patient Behavior: Avoidant and Isolative Mood Description: Anxious and Labile Affect Description: Withdrawn and Constricted Memory Description: Episodic Impaired Delusions: Paranoid Ideation Thought Content: positive for Circumstantial Abnormal Motor Activity Signs and Symptoms: Psychomotor Retardation Judgement: Poor Diagnostics Vital Signs (24Hr): Vital Signs - 24 hr 08/18/22 07:50 08/18/22 19:00 Temperature 97.6 F 96.2 F L Pulse Rate 79 77 Respiratory Rate 20 16 Blood Pressure 120/89 123/65 Pulse Oximetry 95 94 Oxygen Delivery Method Room Air Room Air BMI result Body Mass Index 30.3 Labs 08/17/22 12:28 Labs: Laboratory Results - last 48 hr 08/17/22 08/17/22 08/17/22 07:45 11:19 12:28 Sodium 131 L Potassium 4.9 Chloride 98 Carbon Dioxide 24 Anion Gap 14 BUN 27 H Creatinine 0.81 Estim Creat Clear Calc 87.0 Estimated GFR > 60 POC Glucose 74 157 H Random Glucose 137 H Calcium 9.4 08/17/22 08/17/22 08/18/22 16:04 19:49 07:32 Sodium Potassium Chloride Carbon Dioxide Anion Gap BUN Creatinine Estim Creat Clear Calc Estimated GFR POC Glucose 89 114 111 Random Glucose Calcium 08/18/22 08/18/22 08/18/22 11:27 16:07 21:06 Sodium Potassium Chloride Carbon Dioxide Anion Gap BUN Creatinine Estim Creat Clear Calc Estimated GFR POC Glucose 154 H 125 H 109 Random Glucose Calcium Medications Medications Current Medications Acetaminophen (Acetaminophen 325 Mg Tablet) 650 mg PO Q6H PRN PRN Reason: Headache/Pain Mild Scale (1-3) Last Admin: 08/18/22 21:03 Dose: 325 mg Al Hydroxide/Mg Hydroxide (Magnesium Hydrox/Alum Hydrox 30 Ml Oral.Susp) 30 ml PO Q6H PRN PRN Reason: Heartburn/Nausea Lipase/Protease/Amylase (Lipase/Prot/Amylase 24/76/120k 1 Cap Capsule.Dr) 1 cap PO TIDWM MARI Last Admin: 08/18/22 16:30 Dose: 1 cap Benztropine Mesylate (Benztropine Mesylate 0.5 Mg Tablet) 0.5 mg PO BID [facility] Last Admin: 08/18/22 21:02 Dose: 0.5 mg Carvedilol (Carvedilol 3.125 Mg Tablet) 3.125 mg PO BID [facility]; Protocol Last Admin: 08/18/22 21:02 Dose: 3.125 mg Clonidine HCl (Clonidine Hcl 0.1 Mg Tablet) 0.1 mg PO DAILY [facility]; Protocol Last Admin: 08/18/22 08:37 Dose: 0.1 mg Divalproex Sodium (Divalproex Sodium 500 Mg Tablet.Dr) 1,000 mg PO BID [facility] Last Admin: 08/18/22 21:02 Dose: 1,000 mg Folic Acid (Folic Acid 1 Mg Tablet) 1 mg PO DAILY [facility] Last Admin: 08/18/22 08:36 Dose: 1 mg Furosemide (Furosemide 20 Mg Tablet) 20 mg PO DAILY [facility]; Protocol Last Admin: 08/18/22 08:35 Dose: 20 mg Glucose (Glucose Gel 15 Gm Gel..Gram.) 15 gm PO Q15M PRN; Protocol PRN Reason: per Hypoglycemia Standing Ord. Guaifenesin (Guaifenesin 100 Mg/5 Ml Liquid) 5 ml PO TID PRN PRN Reason: Cough Hydroxyzine HCl (Hydroxyzine Hcl 50 Mg Tablet) 50 mg PO TID PRN PRN Reason: Anxiety Dextrose (D10) 250 mls @ 750 mls/hr IV Q15M PRN; Protocol PRN Reason: per Hypoglycemia Standing Ord. Insulin Glargine (Insulin Glargine,Hum.Rec.Anlog 100 Unit/Ml 10 Ml Vial) 6 unit SUBCUT DAILY [facility] Last Admin: 08/18/22 08:32 Dose: 6 unit Insulin Human Lispro (Insulin Lispro 100 Unit/Ml 3 Ml Vial) 0 unit SUBCUT QIDACHS [facility]; Protocol Last Admin: 08/18/22 21:07 Dose: Not Given Lactulose (Lactulose 20 Gm/30 Ml Solution) 20 gm PO BID [facility] Last Admin: 08/18/22 21:04 Dose: 20 gm Magnesium Hydroxide (Milk Of Magnesia 30 Ml Oral.Susp) 30 ml PO DAILY PRN PRN Reason: Constipation Magnesium Oxide (Magnesium Oxide 400 Mg Tablet) 400 mg PO DAILY [facility] Last Admin: 08/18/22 08:35 Dose: 400 mg Multivitamins/Vitamin C (Multivitamin Tablet) 1 tab PO DAILY [facility] Last Admin: 08/18/22 08:37 Dose: 1 tab Omeprazole (Omeprazole 20 Mg Capsule.Dr) 20 mg PO DAILY@0630 [facility] Last Admin: 08/18/22 06:04 Dose: 20 mg Paliperidone (Paliperidone Er 9 Mg Tab.Er.24) 9 mg PO BEDTIME [facility] Last Admin: 08/18/22 21:02 Dose: 9 mg Senna/Docusate Sodium (Sennosides/Docusate Sodium Tablet) 1 tab PO BID PRN PRN Reason: Constipation Thiamine HCl (Thiamine Hcl 100 Mg Tablet) 100 mg PO DAILY [facility] Last Admin: 08/18/22 08:36 Dose: 100 mg Tiotropium [place] (Tiotropium [place] 18 Mcg Cap.W.Dev) 1 puff INHALE RDAILY [facility] Last Admin: 08/18/22 08:40 Dose: 1 puff Trazodone HCl (Trazodone Hcl 50 Mg Tablet) 50 mg PO BEDTIME MRX1 PRN PRN Reason: Insomnia Last Admin: 08/18/22 21:02 Dose: 50 mg Urea (Urea 15 Gm Powder) 15 gm PO BID [facility] Last Admin: 08/18/22 21:02 Dose: 15 gm Allergies Allergies Allergy/AdvReac Type Severity Reaction Status Date / Time olanzapine [From Zyprexa] Allergy Unknown Verified 09/03/21 14:49 prednisone Allergy Unknown Verified 09/03/21 14:49 NSAIDS (Non-Steroidal AdvReac Mild Abdominal Verified 09/03/21 14:49 Anti-Inflamma Pain Assessment & Plan Assessment & Plan (1) Schizophrenia, chronic condition: Status: Acute Code(s): F20.9 - Schizophrenia, unspecified Plan 08/14: continue medications as established during medical stay at [facility] 08/04 - 08/13. stabilize psychiatrically. develop dispo plan. 08/15: pt refusing medications and care since admission. TSH mildly elevated, would recheck prior to discharge. continue to offer medications as prescribed. 08/16: partial compliance with care. continue current mgmt. 08/17/2022 Sodium somewhat decreased but 130 since patient appears better stabilized she is on urea unclear the veracity of multiple medical conditions that she states she has suffered from new Invega encourage med compliance trying get additional history 08/18/21 Pt somewhat withdrawn and fatigued ck labs Patient educated on: medication risk/benefits and medical condition Informed Consent: further education needed Reason for continued inpatient stay Substantial Risk for: rapid decompensation and med/psych decompensation Time Spent With Patient Time: Total time managing care of this patient today ____ minutes.
[2022-08-19 07:54] LABS: Glucose, Whole Blood 82 mg/dL (60-115)
[2022-08-19 08:57] LABS: Ammonia 109 umol/L (13-55)
[2022-08-19 09:09] LABS: Alanine Aminotransferase 19 U/L (0-31); Albumin Level 3.4 g/dL (3.5-5.0); Alkaline Phosphatase 138 U/L (39-117); Anion Gap 15 (12-20); Aspartate Amino Transferase 28 U/L (5-31); Bilirubin Total 0.4 mg/dL (0.0-1.0); Blood Urea Nitrogen 35 mg/dL (9-16); Calcium 9.5 mg/dL (8.4-10.2); Carbon Dioxide 22 mmol/L (22-29); Chloride 101 mmol/L (96-108); Estimated Glomerular Filt Rate > 60; Glucose Fasting 89 mg/dL (60-99); Potassium 4.6 mmol/L (3.3-5.1); Sodium 133 mmol/L (135-145)
--- NOTE | 2022-08-19 09:37 | P.PNPSI_ITS ---
Subjective Subjective Date of Service: 08/19/22 Reason For Visit: psychosis Subjective Notes: Conditional Voluntary Guardianship: No Medical Problems Affecting Mental Status: Yes (elevated ammonia) Interim History: pt less sedated later in the day dep 1000 bid with ammonia 100 sodium improving lphysical concens regarding her health some bizarre del but more organized Medication Compliance: Intermittent Side effects from medications: Yes Attending Groups: Intermittent Review of Systems Acute medical concerns: Yes recent hyponatrenmia encephalopathy Mental Status Exam Mental Status Exam Patient Appearance: Fatigued Patient Orientation: Person, Place and Situation Level of Consciousness: Awake Patient Behavior: Talkative and Cooperative Behavior Comments: sedated in am Mood Description: Anxious and Labile Affect Description: Withdrawn and Constricted Memory Description: Episodic Impaired Delusions: Paranoid Ideation Thought Content: positive for Circumstantial, negative for Suicidal Ideation or negative for Homicidal Ideation Depressive Symptoms: Increased Anxiety and Sleeping More Than Usual Abnormal Motor Activity Signs and Symptoms: Psychomotor Retardation Judgement: Fair Diagnostics Vital Signs (24Hr): Vital Signs - 24 hr 08/18/22 19:00 Temperature 96.2 F L Pulse Rate 77 Respiratory Rate 16 Blood Pressure 123/65 Pulse Oximetry 94 Oxygen Delivery Method Room Air BMI result Body Mass Index 30.3 Labs 08/19/22 08:01 Labs: Laboratory Results - last 48 hr 08/17/22 08/17/22 08/17/22 11:19 12:28 16:04 Sodium 131 L Potassium 4.9 Chloride 98 Carbon Dioxide 24 Anion Gap 14 BUN 27 H Creatinine 0.81 Estim Creat Clear Calc 87.0 Estimated GFR > 60 POC Glucose 157 H 89 Random Glucose 137 H Fasting Glucose Calcium 9.4 Total Bilirubin AST ALT Alkaline Phosphatase Ammonia Total Protein Albumin Valproic Acid 08/17/22 08/18/22 08/18/22 19:49 07:32 11:27 Sodium Potassium Chloride Carbon Dioxide Anion Gap BUN Creatinine Estim Creat Clear Calc Estimated GFR POC Glucose 114 111 154 H Random Glucose Fasting Glucose Calcium Total Bilirubin AST ALT Alkaline Phosphatase Ammonia Total Protein Albumin Valproic Acid 08/18/22 08/18/22 08/19/22 16:07 21:06 07:42 Sodium Potassium Chloride Carbon Dioxide Anion Gap BUN Creatinine Estim Creat Clear Calc Estimated GFR POC Glucose 125 H 109 82 Random Glucose Fasting Glucose Calcium Total Bilirubin AST ALT Alkaline Phosphatase Ammonia Total Protein Albumin Valproic Acid 08/19/22 08/19/22 08/19/22 08:01 08:01 08:01 Sodium 133 L Potassium 4.6 Chloride 101 Carbon Dioxide 22 Anion Gap 15 BUN 35 H Creatinine 0.81 Estim Creat Clear Calc 87.0 Estimated GFR > 60 POC Glucose Random Glucose Fasting Glucose 89 Calcium 9.5 Total Bilirubin 0.4 AST 28 ALT 19 Alkaline Phosphatase 138 H Ammonia 109 H Total Protein 8.0 Albumin 3.4 L Valproic Acid 97.0 Medications Medications Current Medications Acetaminophen (Acetaminophen 325 Mg Tablet) 650 mg PO Q6H PRN PRN Reason: Headache/Pain Mild Scale (1-3) Last Admin: 08/18/22 21:03 Dose: 325 mg Al Hydroxide/Mg Hydroxide (Magnesium Hydrox/Alum Hydrox 30 Ml Oral.Susp) 30 ml PO Q6H PRN PRN Reason: Heartburn/Nausea Lipase/Protease/Amylase (Lipase/Prot/Amylase 24/76/120k 1 Cap Capsule.) 1 cap PO TIDWM [facility] Last Admin: 08/18/22 16:30 Dose: 1 cap Benztropine Mesylate (Benztropine Mesylate 0.5 Mg Tablet) 0.5 mg PO BID [facility] Last Admin: 08/18/22 21:02 Dose: 0.5 mg Carvedilol (Carvedilol 3.125 Mg Tablet) 3.125 mg PO BID [facility]; Protocol Last Admin: 08/18/22 21:02 Dose: 3.125 mg Clonidine HCl (Clonidine Hcl 0.1 Mg Tablet) 0.1 mg PO DAILY [facility]; Protocol Last Admin: 08/18/22 08:37 Dose: 0.1 mg Divalproex Sodium (Divalproex Sodium 500 Mg Tablet.) 1,000 mg PO BID [facility] Last Admin: 08/18/22 21:02 Dose: 1,000 mg Folic Acid (Folic Acid 1 Mg Tablet) 1 mg PO DAILY [facility] Last Admin: 08/18/22 08:36 Dose: 1 mg Furosemide (Furosemide 20 Mg Tablet) 20 mg PO DAILY [facility]; Protocol Last Admin: 08/18/22 08:35 Dose: 20 mg Glucose (Glucose Gel 15 Gm Gel..Gram.) 15 gm PO Q15M PRN; Protocol PRN Reason: per Hypoglycemia Standing Ord. Guaifenesin (Guaifenesin 100 Mg/5 Ml Liquid) 5 ml PO TID PRN PRN Reason: Cough Hydroxyzine HCl (Hydroxyzine Hcl 50 Mg Tablet) 50 mg PO TID PRN PRN Reason: Anxiety Dextrose (D10) 250 mls @ 750 mls/hr IV Q15M PRN; Protocol PRN Reason: per Hypoglycemia Standing Ord. Insulin Glargine (Insulin Glargine,Hum.Rec.Anlog 100 Unit/Ml 10 Ml Vial) 6 unit SUBCUT DAILY [facility] Last Admin: 08/18/22 08:32 Dose: 6 unit Insulin Human Lispro (Insulin Lispro 100 Unit/Ml 3 Ml Vial) 0 unit SUBCUT QIDACHS [facility]; Protocol Last Admin: 08/18/22 21:07 Dose: Not Given Lactulose (Lactulose 20 Gm/30 Ml Solution) 20 gm PO BID [facility] Last Admin: 08/18/22 21:04 Dose: 20 gm Magnesium Hydroxide (Milk Of Magnesia 30 Ml Oral.Susp) 30 ml PO DAILY PRN PRN Reason: Constipation Magnesium Oxide (Magnesium Oxide 400 Mg Tablet) 400 mg PO DAILY [facility] Last Admin: 08/18/22 08:35 Dose: 400 mg Multivitamins/Vitamin C (Multivitamin Tablet) 1 tab PO DAILY [facility] Last Admin: 08/18/22 08:37 Dose: 1 tab Omeprazole (Omeprazole 20 Mg Capsule.Dr) 20 mg PO DAILY@0630 [facility] Last Admin: 08/19/22 06:39 Dose: Not Given Paliperidone (Paliperidone Er 9 Mg Tab.Er.24) 9 mg PO BEDTIME [facility] Last Admin: 08/18/22 21:02 Dose: 9 mg Senna/Docusate Sodium (Sennosides/Docusate Sodium Tablet) 1 tab PO BID PRN PRN Reason: Constipation Thiamine HCl (Thiamine Hcl 100 Mg Tablet) 100 mg PO DAILY [facility] Last Admin: 08/18/22 08:36 Dose: 100 mg Tiotropium [place] (Tiotropium [place] 18 Mcg Cap.W.Dev) 1 puff INHALE RDAILY [facility] Last Admin: 08/18/22 08:40 Dose: 1 puff Trazodone HCl (Trazodone Hcl 50 Mg Tablet) 50 mg PO BEDTIME MRX1 PRN PRN Reason: Insomnia Last Admin: 08/18/22 21:02 Dose: 50 mg Urea (Urea 15 Gm Powder) 15 gm PO BID [facility] Last Admin: 08/18/22 21:02 Dose: 15 gm Allergies Allergies Allergy/AdvReac Type Severity Reaction Status Date / Time olanzapine [From Zyprexa] Allergy Unknown Verified 09/03/21 14:49 prednisone Allergy Unknown Verified 09/03/21 14:49 NSAIDS (Non-Steroidal AdvReac Mild Abdominal Verified 09/03/21 14:49 Anti-Inflamma Pain Assessment & Plan Assessment & Plan (1) Schizophrenia, chronic condition: Status: Acute Code(s): F20.9 - Schizophrenia, unspecified (2) Chronic hyponatremia: Status: Acute Code(s): E87.1 - Hypo-osmolality and hyponatremia (3) Hyperammonemia: Status: Acute Code(s): E72.20 - Disorder of urea cycle metabolism, unspecified Plan 08/14: continue medications as established during medical stay at [facility] 08/04 - 08/13. stabilize psychiatrically. develop dispo plan. 08/15: pt refusing medications and care since admission. TSH mildly elevated, would recheck prior to discharge. continue to offer medications as prescribed. 08/16: partial compliance with care. continue current mgmt. 08/17/2022 Sodium somewhat decreased but 130 since patient appears better stabilized she is on urea unclear the veracity of multiple medical conditions that she states she has suffered from new Invega encourage med compliance trying get additional history 08/18/21 Pt somewhat withdrawn and fatigued ck labs 08/19/22 elevated ammonia 109 inc lactulose hold depakote restart at lower dose hx encephalopathy spoke to hospitalist service cont invega less liver interaction Patient educated on: medication risk/benefits and medical condition Informed Consent: further education needed Reason for continued inpatient stay Substantial Risk for: inability to function and med/psych decompensation Time Spent With Patient Time: Total time managing care of this patient today _35___ minutes.
[2022-08-19 11:00] VITALS: BP 114/64; PULSE 87; RESP 15; TEMP 36.6; O2SAT 93
[2022-08-19 11:38] LABS: Glucose, Whole Blood 92 mg/dL (60-115)
[2022-08-19] MEDS: Folic Acid 1 MG TABLET PO (11:53)
[2022-08-19] MEDS: Lactulose 20 GM/30 ML SOLUTION PO (11:53)
[2022-08-19] MEDS: Lipase/Prot/Amylase 24/76/120K 1 CAP CAPSULE.DR PO ×2 (11:53→14:03)
[2022-08-19] MEDS: Benztropine Mesylate 0.5 MG TABLET PO (11:53)
[2022-08-19] MEDS: Urea 15 GM POWDER PO (11:53)
[2022-08-19] MEDS: Furosemide 20 MG TABLET PO (11:54)
[2022-08-19] MEDS: Divalproex Sodium 500 MG TABLET.DR 1000 MG PO (11:54)
[2022-08-19] MEDS: carvediloL 3.125 MG TABLET PO (11:54)
[2022-08-19] MEDS: Thiamine HCL 100 MG TABLET PO (11:54)
[2022-08-19] MEDS: Magnesium Oxide 400 MG TABLET PO (11:54)
[2022-08-19] MEDS: cloNIDine HCL 0.1 MG TABLET PO (11:55)
[2022-08-19] MEDS: Multivitamin TABLET 1 TAB PO (11:55)
[2022-08-19] MEDS: Insulin Lispro 100 UNIT/ML 3 ML VIAL SUBCUT (11:56)
[2022-08-19] MEDS: Insulin Glargine,Hum.rec.anlog 100 UNIT/ML 10 ML VIAL 6 UNIT SUBCUT (11:57)
[2022-08-19 16:37] LABS: Glucose, Whole Blood 127 mg/dL (60-115)
[2022-08-19 18:00] VITALS: RESP 16
[2022-08-20] MEDS: Omeprazole 20 MG CAPSULE.DR PO (06:43)
[2022-08-20 07:30] VITALS: BP 114/86; PULSE 84; RESP 15; TEMP 36.3; O2SAT 93
[2022-08-20 08:06] LABS: Glucose, Whole Blood 100 mg/dL (60-115)
[2022-08-20 08:08] LABS: MANUAL DIFF FLAG NO
[2022-08-20 08:11] LABS: Basophils Percent Auto 0.4 % (0-2); Eosinophils Absolute Auto 0.1 X10*3/uL (0.0-0.4); Eosinophils Percent Auto 1.8 % (0-4); Hematocrit 33.2 % (37.0-47.0); Hemoglobin 11.5 g/dl (12.0-16.0); Imm Gran Abs Auto 0.01 X10*3/uL (0.00-0.03); Imm Gran Pct Auto 0.1 % (0.0-0.4); Lymphocytes Absolute Auto 4.2 X10*3/uL (1.2-4.9); Mean Corpuscular HGB Conc 34.6 g/dl (31.0-35.0); Mean Corpuscular Hemoglobin 33.2 pg (27.0-33.0); Monocytes Absolute Auto 1.3 X10*3/uL (0.1-1.2); Monocytes Percent Auto 18.5 % (2-11); Neutrophils Absolute Auto 1.4 x10*3/uL (2.0-8.3); Neutrophils Percent Auto 20.2 % (45-73); Platelet Count 220 X10*3/uL (160-400); Red Blood Count 3.46 X10*6/uL (4.20-5.50); Red Cell Distribution Width 16.1 % (11.0-16.0); White Blood Count 7.1 X10*3/uL (4.8-10.8)
[2022-08-20] MEDS: Insulin Glargine,Hum.rec.anlog 100 UNIT/ML 10 ML VIAL 6 UNIT SUBCUT (08:19)
[2022-08-20] MEDS: Magnesium Oxide 400 MG TABLET PO (08:20)
[2022-08-20] MEDS: Benztropine Mesylate 0.5 MG TABLET PO ×2 (08:20→21:25)
[2022-08-20] MEDS: Multivitamin TABLET 1 TAB PO (08:20)
[2022-08-20] MEDS: Furosemide 20 MG TABLET PO (08:20)
[2022-08-20] MEDS: Lactulose 20 GM/30 ML SOLUTION PO ×2 (08:20→16:17)
[2022-08-20] MEDS: carvediloL 3.125 MG TABLET PO ×2 (08:20→21:25)
[2022-08-20] MEDS: Folic Acid 1 MG TABLET PO (08:20)
[2022-08-20] MEDS: Urea 15 GM POWDER PO ×2 (08:20→21:25)
[2022-08-20] MEDS: Lipase/Prot/Amylase 24/76/120K 1 CAP CAPSULE.DR PO ×3 (08:21→16:28)
[2022-08-20] MEDS: cloNIDine HCL 0.1 MG TABLET PO (08:21)
[2022-08-20] MEDS: Thiamine HCL 100 MG TABLET PO (08:21)
[2022-08-20 08:22] LABS: Ammonia 68 umol/L (13-55)
[2022-08-20 08:37] LABS: Alanine Aminotransferase 15 U/L (0-31); Albumin Level 3.1 g/dL (3.5-5.0); Alkaline Phosphatase 126 U/L (39-117); Aspartate Amino Transferase 25 U/L (5-31); Bilirubin Direct 0.2 mg/dL (0.0-0.5); Bilirubin Total 0.5 mg/dL (0.0-1.0); Total Protein 7.2 g/dL (6.5-8.0)
[2022-08-20 11:32] LABS: Glucose, Whole Blood 156 mg/dL (60-115)
[2022-08-20] MEDS: Insulin Lispro 100 UNIT/ML 3 ML VIAL SUBCUT (11:37)
--- NOTE | 2022-08-20 14:33 | HO.PSYCHPN ---
Subjective Subjective Date of Service: 08/20/22 Reason For Visit: psychosis Subjective Notes: Conditional Voluntary Interim History: Pt continues to present as somnolent. She is able to respond when called, but quickly goes back to sleep. Several attempts to engage her in conversation were limited as pt would quickly cover her head and declined to talk. Per nursing, pt slept all night. Mostly in bed, minimally interacting with peers, which is not her baseline. Ammonia levels trending down. Today in 60's. Depakote has been held. Note that pt used to be on much lower dose of depakote- 750mg po daily. She does hx of hyperammonemia. May benefit from lower dose. Pt declined medications yesterday- so other medication not overly sedating to explain fact that pt is mostly in bed. Will recheck CMP today. BUN elevated at 38. May benefit from fluids. Medication Compliance: Intermittent Side effects from medications: Yes (increase ammonia) Review of Systems Review of Systems General: No fevers, malaise, unintentional weight loss HEENT: No blurred vision, diplopia. No sore throat, nasal congestion, rhinorrhea, sinus pain, ear pain Cardiovascular: No chest pain, palpitations. +BLE edema Respiratory: No shortness of breath, wheezing, cough GI: No abdominal pain, nausea, vomiting, diarrhea, constipation, melena, hematochezia : No dysuria, hematuria, increased urinary frequency, decreased urinary output MSK: No myalgia, back pain Neuro: No headaches, weakness, paresthesias Skin: No rashes or lesions Diagnostics Vital Signs (24Hr): Vital Signs - 24 hr 08/19/22 18:00 08/20/22 07:30 Temperature 97.4 F Pulse Rate 84 Respiratory Rate 16 15 Blood Pressure 114/86 Pulse Oximetry 93 Oxygen Delivery Method Room Air BMI result Body Mass Index 30.3 Labs 08/20/22 07:57 08/19/22 08:01 Labs: Laboratory Results - last 48 hr 08/18/22 08/18/22 08/19/22 16:07 21:06 07:42 WBC RBC Hgb Hct MCV MCH MCHC RDW Plt Count MPV Immature Gran % (Auto) Neut % (Auto) Lymph % (Auto) Gates % (Auto) Eos % (Auto) Baso % (Auto) Lymph # (Auto) Gates # (Auto) Eos # (Auto) Baso # (Auto) Abs Immat Gran (auto) Absolute Neuts (auto) Absolute Nucleated RBC Nucleated RBC % (auto) Sodium Potassium Chloride Carbon Dioxide Anion Gap BUN Creatinine Estim Creat Clear Calc Estimated GFR POC Glucose 125 H 109 82 Fasting Glucose Calcium Total Bilirubin Direct Bilirubin AST ALT Alkaline Phosphatase Ammonia Total Protein Albumin Valproic Acid 08/19/22 08/19/22 08/19/22 08:01 08:01 08:01 WBC RBC Hgb Hct MCV MCH MCHC RDW Plt Count MPV Immature Gran % (Auto) Neut % (Auto) Lymph % (Auto) Gates % (Auto) Eos % (Auto) Baso % (Auto) Lymph # (Auto) Gates # (Auto) Eos # (Auto) Baso # (Auto) Abs Immat Gran (auto) Absolute Neuts (auto) Absolute Nucleated RBC Nucleated RBC % (auto) Sodium 133 L Potassium 4.6 Chloride 101 Carbon Dioxide 22 Anion Gap 15 BUN 35 H Creatinine 0.81 Estim Creat Clear Calc 87.0 Estimated GFR > 60 POC Glucose Fasting Glucose 89 Calcium 9.5 Total Bilirubin 0.4 Direct Bilirubin AST 28 ALT 19 Alkaline Phosphatase 138 H Ammonia 109 H Total Protein 8.0 Albumin 3.4 L Valproic Acid 97.0 08/19/22 08/19/22 08/20/22 11:34 16:29 07:57 WBC 7.1 RBC 3.46 L D Hgb 11.5 L Hct 33.2 L MCV 96.0 MCH 33.2 H MCHC 34.6 RDW 16.1 H Plt Count 220 D MPV 11.0 Immature Gran % (Auto) 0.1 Neut % (Auto) 20.2 L Lymph % (Auto) 59.0 H Gates % (Auto) 18.5 H Eos % (Auto) 1.8 Baso % (Auto) 0.4 Lymph # (Auto) 4.2 Gates # (Auto) 1.3 H Eos # (Auto) 0.1 Baso # (Auto) 0.0 Abs Immat Gran (auto) 0.01 Absolute Neuts (auto) 1.4 L Absolute Nucleated RBC 0.000 Nucleated RBC % (auto) 0.0 Sodium Potassium Chloride Carbon Dioxide Anion Gap BUN Creatinine Estim Creat Clear Calc Estimated GFR POC Glucose 92 127 H Fasting Glucose Calcium Total Bilirubin Direct Bilirubin AST ALT Alkaline Phosphatase Ammonia Total Protein Albumin Valproic Acid 08/20/22 08/20/22 08/20/22 07:57 07:57 08:02 WBC RBC Hgb Hct MCV MCH MCHC RDW Plt Count MPV Immature Gran % (Auto) Neut % (Auto) Lymph % (Auto) Gates % (Auto) Eos % (Auto) Baso % (Auto) Lymph # (Auto) Gates # (Auto) Eos # (Auto) Baso # (Auto) Abs Immat Gran (auto) Absolute Neuts (auto) Absolute Nucleated RBC Nucleated RBC % (auto) Sodium Potassium Chloride Carbon Dioxide Anion Gap BUN Creatinine Estim Creat Clear Calc Estimated GFR POC Glucose 100 Fasting Glucose Calcium Total Bilirubin 0.5 Direct Bilirubin 0.2 AST 25 ALT 15 Alkaline Phosphatase 126 H Ammonia 68 H Total Protein 7.2 Albumin 3.1 L Valproic Acid 08/20/22 11:27 WBC RBC Hgb Hct MCV MCH MCHC RDW Plt Count MPV Immature Gran % (Auto) Neut % (Auto) Lymph % (Auto) Gates % (Auto) Eos % (Auto) Baso % (Auto) Lymph # (Auto) Gates # (Auto) Eos # (Auto) Baso # (Auto) Abs Immat Gran (auto) Absolute Neuts (auto) Absolute Nucleated RBC Nucleated RBC % (auto) Sodium Potassium Chloride Carbon Dioxide Anion Gap BUN Creatinine Estim Creat Clear Calc Estimated GFR POC Glucose 156 H Fasting Glucose Calcium Total Bilirubin Direct Bilirubin AST ALT Alkaline Phosphatase Ammonia Total Protein Albumin Valproic Acid Medications Medications Current Medications Acetaminophen (Acetaminophen 325 Mg Tablet) 650 mg PO Q6H PRN PRN Reason: Headache/Pain Mild Scale (1-3) Last Admin: 08/18/22 21:03 Dose: 325 mg Al Hydroxide/Mg Hydroxide (Magnesium Hydrox/Alum Hydrox 30 Ml Oral.Susp) 30 ml PO Q6H PRN PRN Reason: Heartburn/Nausea Lipase/Protease/Amylase (Lipase/Prot/Amylase 24/76/120k 1 Cap Capsule.Dr) 1 cap PO TIDWM [facility] Last Admin: 08/20/22 12:10 Dose: 1 cap Benztropine Mesylate (Benztropine Mesylate 0.5 Mg Tablet) 0.5 mg PO BID [facility] Last Admin: 08/20/22 08:20 Dose: 0.5 mg Carvedilol (Carvedilol 3.125 Mg Tablet) 3.125 mg PO BID [facility]; Protocol Last Admin: 08/20/22 08:20 Dose: 3.125 mg Clonidine HCl (Clonidine Hcl 0.1 Mg Tablet) 0.1 mg PO DAILY [facility]; Protocol Last Admin: 08/20/22 08:21 Dose: 0.1 mg Folic Acid (Folic Acid 1 Mg Tablet) 1 mg PO DAILY [facility] Last Admin: 08/20/22 08:20 Dose: 1 mg Furosemide (Furosemide 20 Mg Tablet) 20 mg PO DAILY [facility]; Protocol Last Admin: 08/20/22 08:20 Dose: 20 mg Glucose (Glucose Gel 15 Gm Gel..Gram.) 15 gm PO Q15M PRN; Protocol PRN Reason: per Hypoglycemia Standing Ord. Guaifenesin (Guaifenesin 100 Mg/5 Ml Liquid) 5 ml PO TID PRN PRN Reason: Cough Hydroxyzine HCl (Hydroxyzine Hcl 50 Mg Tablet) 50 mg PO TID PRN PRN Reason: Anxiety Dextrose (D10) 250 mls @ 750 mls/hr IV Q15M PRN; Protocol PRN Reason: per Hypoglycemia Standing Ord. Insulin Glargine (Insulin Glargine,Hum.Rec.Anlog 100 Unit/Ml 10 Ml Vial) 6 unit SUBCUT DAILY [facility] Last Admin: 08/20/22 08:19 Dose: 6 unit Insulin Human Lispro (Insulin Lispro 100 Unit/Ml 3 Ml Vial) 0 unit SUBCUT QIDACHS [facility]; Protocol Last Admin: 08/20/22 11:37 Dose: 2 unit Lactulose (Lactulose 20 Gm/30 Ml Solution) 20 gm PO TID [facility] Last Admin: 08/20/22 08:20 Dose: 20 gm Magnesium Hydroxide (Milk Of Magnesia 30 Ml Oral.Susp) 30 ml PO DAILY PRN PRN Reason: Constipation Magnesium Oxide (Magnesium Oxide 400 Mg Tablet) 400 mg PO DAILY [facility] Last Admin: 08/20/22 08:20 Dose: 400 mg Multivitamins/Vitamin C (Multivitamin Tablet) 1 tab PO DAILY [facility] Last Admin: 08/20/22 08:20 Dose: 1 tab Omeprazole (Omeprazole 20 Mg Capsule.Dr) 20 mg PO DAILY@0630 [facility] Last Admin: 08/20/22 06:43 Dose: 20 mg Paliperidone (Paliperidone Er 9 Mg Tab.Er.24) 9 mg PO BEDTIME [facility] Last Admin: 06/01/23 20:16 Dose: Not Given Senna/Docusate Sodium (Sennosides/Docusate Sodium Tablet) 1 tab PO BID PRN PRN Reason: Constipation Thiamine HCl (Thiamine Hcl 100 Mg Tablet) 100 mg PO DAILY [facility] Last Admin: 08/20/22 08:21 Dose: 100 mg Tiotropium [place] (Tiotropium [place] 18 Mcg Cap.W.Dev) 1 puff INHALE RDAILY [facility] Last Admin: 08/20/22 10:56 Dose: 1 puff Trazodone HCl (Trazodone Hcl 50 Mg Tablet) 50 mg PO BEDTIME MRX1 PRN PRN Reason: Insomnia Last Admin: 08/18/22 21:02 Dose: 50 mg Urea (Urea 15 Gm Powder) 15 gm PO BID [facility] Last Admin: 08/20/22 08:20 Dose: 15 gm Allergies Allergies Allergy/AdvReac Type Severity Reaction Status Date / Time olanzapine [From Zyprexa] Allergy Unknown Verified 09/03/21 14:49 prednisone Allergy Unknown Verified 09/03/21 14:49 NSAIDS (Non-Steroidal AdvReac Mild Abdominal Verified 09/03/21 14:49 Anti-Inflamma Pain Assessment & Plan Assessment & Plan (1) Schizophrenia, chronic condition: Status: Acute Code(s): F20.9 - Schizophrenia, unspecified (2) Chronic hyponatremia: Status: Acute Code(s): E87.1 - Hypo-osmolality and hyponatremia Plan 08/14: continue medications as established during medical stay at [facility] 08/04 - 08/13. stabilize psychiatrically. develop dispo plan. 08/15: pt refusing medications and care since admission. TSH mildly elevated, would recheck prior to discharge. continue to offer medications as prescribed. 08/16: partial compliance with care. continue current mgmt. 08/17/2022 Sodium somewhat decreased but 130 since patient appears better stabilized she is on urea unclear the veracity of multiple medical conditions that she states she has suffered from new Invega encourage med compliance trying get additional history 08/18/21 Pt somewhat withdrawn and fatigued ck labs 08/19/22 elevated ammonia 109 inc lactulose hold depakote restart at lower dose hx encephalopathy spoke to hospitalist service cont invega less liver interaction 08/20 Ammonia levels trending down. Today in s. Depakote has been held. Note that pt used to be on much lower dose of depakote- 750mg po daily but this time she had 1000mg po BID. She does hx of hyperammonemia. May benefit from lower dose. Pt declined medications yesterday- so other medication not overly sedating to explain fact that pt is mostly in bed. Will recheck CMP today. BUN elevated at 38. May benefit from fluids. Reason for continued inpatient stay Substantial Risk for: inability to function Time Spent With Patient Time: Total time managing care of this patient today ____ minutes.
[2022-08-20 15:28] LABS: Alanine Aminotransferase 16 U/L (0-31); Albumin Level 3.4 g/dL (3.5-5.0); Alkaline Phosphatase 130 U/L (39-117); Anion Gap 12 (12-20); Aspartate Amino Transferase 27 U/L (5-31); Bilirubin Total 0.5 mg/dL (0.0-1.0); Blood Urea Nitrogen 44 mg/dL (9-16); Calcium 9.3 mg/dL (8.4-10.2); Carbon Dioxide 23 mmol/L (22-29); Chloride 102 mmol/L (96-108); Estimated Glomerular Filt Rate > 60; Glucose Random 64 mg/dL (60-115); Potassium 4.4 mmol/L (3.3-5.1); Sodium 133 mmol/L (135-145); Total Protein 7.9 g/dL (6.5-8.0)
[2022-08-20 16:41] LABS: Glucose, Whole Blood 103 mg/dL (60-115)
[2022-08-20 18:00] VITALS: BP 126/89; PULSE 82; RESP 20; TEMP 36.1; O2SAT 92
[2022-08-20] MEDS: Paliperidone ER 9 MG TAB.ER.24 PO (21:25)
[2022-08-20 21:33] LABS: Glucose, Whole Blood 134 mg/dL (60-115)
[2022-08-21] MEDS: Omeprazole 20 MG CAPSULE.DR PO (05:53)
[2022-08-21 07:45] LABS: Glucose, Whole Blood 93 mg/dL (60-115)
[2022-08-21 09:27] VITALS: BP 118/57; PULSE 70; RESP 16; TEMP 36.2; O2SAT 93
[2022-08-21] MEDS: Urea 15 GM POWDER PO ×2 (09:32→20:24)
[2022-08-21] MEDS: Insulin Glargine,Hum.rec.anlog 100 UNIT/ML 10 ML VIAL 6 UNIT SUBCUT (09:33)
[2022-08-21] MEDS: Lactulose 20 GM/30 ML SOLUTION PO ×3 (09:33→20:24)
[2022-08-21] MEDS: cloNIDine HCL 0.1 MG TABLET PO (09:36)
[2022-08-21] MEDS: Thiamine HCL 100 MG TABLET PO (09:36)
[2022-08-21] MEDS: Benztropine Mesylate 0.5 MG TABLET PO ×2 (09:36→20:24)
[2022-08-21] MEDS: Folic Acid 1 MG TABLET PO (09:36)
[2022-08-21] MEDS: Lipase/Prot/Amylase 24/76/120K 1 CAP CAPSULE.DR PO ×3 (09:36→16:45)
[2022-08-21] MEDS: Magnesium Oxide 400 MG TABLET PO (09:36)
[2022-08-21] MEDS: Multivitamin TABLET 1 TAB PO (09:36)
[2022-08-21] MEDS: carvediloL 3.125 MG TABLET PO ×2 (09:36→20:24)
[2022-08-21] MEDS: Furosemide 20 MG TABLET PO (09:36)
[2022-08-21 11:10] LABS: Glucose, Whole Blood 157 mg/dL (60-115)
[2022-08-21] MEDS: Insulin Lispro 100 UNIT/ML 3 ML VIAL SUBCUT ×2 (11:12→20:36)
--- NOTE | 2022-08-21 11:55 | P.PNPSI_ITS ---
Subjective Subjective Date of Service: 08/21/22 Reason For Visit: psychosis Subjective Notes: Conditional Voluntary Interim History: The nursing staff reported the patient had been confused, compliant with medications. On interview the patient denies new symptoms easily redirectable very confused. Mental Status Exam Mental Status Exam Patient Appearance: Appropriate Patient Orientation: Person and Situation Level of Consciousness: Awake and Appropriate Patient Behavior: Appropriate Mood Description: Calm Affect Description: Constricted Patient Cognition Impaired: Yes Ability to Follow Directions: Good Speech Pattern: Clear Hallucinations: None Delusions: Paranoid Ideation Thought Process: Distracted and Slowed Thinking Thought Content: positive for [place] and positive for Thought Blocking Judgement: Poor Diagnostics Vital Signs (24Hr): Vital Signs - 24 hr 08/20/22 18:00 08/21/22 09:27 Temperature 97.0 F 97.2 F Pulse Rate 82 70 Respiratory Rate 20 16 Blood Pressure 126/89 118/57 L Pulse Oximetry 92 93 Oxygen Delivery Method Room Air Room Air BMI result Body Mass Index 30.3 Labs 08/20/22 07:57 08/20/22 14:50 Labs: Laboratory Results - last 48 hr 08/19/22 08/20/22 08/20/22 16:29 07:57 07:57 WBC 7.1 RBC 3.46 L D Hgb 11.5 L Hct 33.2 L MCV 96.0 MCH 33.2 H MCHC 34.6 RDW 16.1 H Plt Count 220 D MPV 11.0 Immature Gran % (Auto) 0.1 Neut % (Auto) 20.2 L Lymph % (Auto) 59.0 H [place] % (Auto) 18.5 H Eos % (Auto) 1.8 Baso % (Auto) 0.4 Lymph # (Auto) 4.2 [place] # (Auto) 1.3 H Eos # (Auto) 0.1 Baso # (Auto) 0.0 Abs Immat Gran (auto) 0.01 Absolute Neuts (auto) 1.4 L Absolute Nucleated RBC 0.000 Nucleated RBC % (auto) 0.0 Sodium Potassium Chloride Carbon Dioxide Anion Gap BUN Creatinine Estim Creat Clear Calc Estimated GFR POC Glucose 127 H Random Glucose Calcium Total Bilirubin 0.5 Direct Bilirubin 0.2 AST 25 ALT 15 Alkaline Phosphatase 126 H Ammonia Total Protein 7.2 Albumin 3.1 L 08/20/22 08/20/22 08/20/22 07:57 08:02 11:27 WBC RBC Hgb Hct MCV MCH MCHC RDW Plt Count MPV Immature Gran % (Auto) Neut % (Auto) Lymph % (Auto) [place] % (Auto) Eos % (Auto) Baso % (Auto) Lymph # (Auto) [place] # (Auto) Eos # (Auto) Baso # (Auto) Abs Immat Gran (auto) Absolute Neuts (auto) Absolute Nucleated RBC Nucleated RBC % (auto) Sodium Potassium Chloride Carbon Dioxide Anion Gap BUN Creatinine Estim Creat Clear Calc Estimated GFR POC Glucose 100 156 H Random Glucose Calcium Total Bilirubin Direct Bilirubin AST ALT Alkaline Phosphatase Ammonia 68 H Total Protein Albumin 08/20/22 08/20/22 08/20/22 14:50 16:22 21:24 WBC RBC Hgb Hct MCV MCH MCHC RDW Plt Count MPV Immature Gran % (Auto) Neut % (Auto) Lymph % (Auto) [place] % (Auto) Eos % (Auto) Baso % (Auto) Lymph # (Auto) [place] # (Auto) Eos # (Auto) Baso # (Auto) Abs Immat Gran (auto) Absolute Neuts (auto) Absolute Nucleated RBC Nucleated RBC % (auto) Sodium 133 L Potassium 4.4 Chloride 102 Carbon Dioxide 23 Anion Gap 12 BUN 44 H Creatinine 0.85 Estim Creat Clear Calc 83.0 Estimated GFR > 60 POC Glucose 103 134 H Random Glucose 64 Calcium 9.3 Total Bilirubin 0.5 Direct Bilirubin AST 27 ALT 16 Alkaline Phosphatase 130 H Ammonia Total Protein 7.9 Albumin 3.4 L 08/21/22 08/21/22 07:33 11:06 WBC RBC Hgb Hct MCV MCH MCHC RDW Plt Count MPV Immature Gran % (Auto) Neut % (Auto) Lymph % (Auto) [place] % (Auto) Eos % (Auto) Baso % (Auto) Lymph # (Auto) [place] # (Auto) Eos # (Auto) Baso # (Auto) Abs Immat Gran (auto) Absolute Neuts (auto) Absolute Nucleated RBC Nucleated RBC % (auto) Sodium Potassium Chloride Carbon Dioxide Anion Gap BUN Creatinine Estim Creat Clear Calc Estimated GFR POC Glucose 93 157 H Random Glucose Calcium Total Bilirubin Direct Bilirubin AST ALT Alkaline Phosphatase Ammonia Total Protein Albumin Medications Medications Current Medications Acetaminophen (Acetaminophen 325 Mg Tablet) 650 mg PO Q6H PRN PRN Reason: Headache/Pain Mild Scale (1-3) Last Admin: 08/18/22 21:03 Dose: 325 mg Al Hydroxide/Mg Hydroxide (Magnesium Hydrox/Alum Hydrox 30 Ml Oral.Susp) 30 ml PO Q6H PRN PRN Reason: Heartburn/Nausea Lipase/Protease/Amylase (Lipase/Prot/Amylase 24/76/120k 1 Cap Capsule.Dr) 1 cap PO TIDWM [facility] Last Admin: 08/21/22 11:12 Dose: 1 cap Benztropine Mesylate (Benztropine Mesylate 0.5 Mg Tablet) 0.5 mg PO BID [facility] Last Admin: 08/21/22 09:36 Dose: 0.5 mg Carvedilol (Carvedilol 3.125 Mg Tablet) 3.125 mg PO BID [facility]; Protocol Last Admin: 08/21/22 09:36 Dose: 3.125 mg Clonidine HCl (Clonidine Hcl 0.1 Mg Tablet) 0.1 mg PO DAILY [facility]; Protocol Last Admin: 08/21/22 09:36 Dose: 0.1 mg Folic Acid (Folic Acid 1 Mg Tablet) 1 mg PO DAILY [facility] Last Admin: 08/21/22 09:36 Dose: 1 mg Furosemide (Furosemide 20 Mg Tablet) 20 mg PO DAILY [facility]; Protocol Last Admin: 08/21/22 09:36 Dose: 20 mg Glucose (Glucose Gel 15 Gm Gel..Gram.) 15 gm PO Q15M PRN; Protocol PRN Reason: per Hypoglycemia Standing Ord. Guaifenesin (Guaifenesin 100 Mg/5 Ml Liquid) 5 ml PO TID PRN PRN Reason: Cough Hydroxyzine HCl (Hydroxyzine Hcl 50 Mg Tablet) 50 mg PO TID PRN PRN Reason: Anxiety Dextrose (D10) 250 mls @ 750 mls/hr IV Q15M PRN; Protocol PRN Reason: per Hypoglycemia Standing Ord. Insulin Glargine (Insulin Glargine,Hum.Rec.Anlog 100 Unit/Ml 10 Ml Vial) 6 unit SUBCUT DAILY [facility] Last Admin: 08/21/22 09:33 Dose: 6 unit Insulin Human Lispro (Insulin Lispro 100 Unit/Ml 3 Ml Vial) 0 unit SUBCUT QIDACHS [facility]; Protocol Last Admin: 08/21/22 11:12 Dose: 2 unit Lactulose (Lactulose 20 Gm/30 Ml Solution) 20 gm PO TID [facility] Last Admin: 08/21/22 09:33 Dose: 20 gm Magnesium Hydroxide (Milk Of Magnesia 30 Ml Oral.Susp) 30 ml PO DAILY PRN PRN Reason: Constipation Magnesium Oxide (Magnesium Oxide 400 Mg Tablet) 400 mg PO DAILY [facility] Last Admin: 08/21/22 09:36 Dose: 400 mg Multivitamins/Vitamin C (Multivitamin Tablet) 1 tab PO DAILY [facility] Last Admin: 08/21/22 09:36 Dose: 1 tab Omeprazole (Omeprazole 20 Mg Capsule.Dr) 20 mg PO DAILY@0630 [facility] Last Admin: 08/21/22 05:53 Dose: 20 mg Paliperidone (Paliperidone Er 9 Mg Tab.Er.24) 9 mg PO BEDTIME [facility] Last Admin: 08/20/22 21:25 Dose: 9 mg Senna/Docusate Sodium (Sennosides/Docusate Sodium Tablet) 1 tab PO BID PRN PRN Reason: Constipation Thiamine HCl (Thiamine Hcl 100 Mg Tablet) 100 mg PO DAILY [facility] Last Admin: 08/21/22 09:36 Dose: 100 mg Tiotropium [place] (Tiotropium [place] 18 Mcg Cap.W.Dev) 1 puff INHALE RDAILY [facility] Last Admin: 08/21/22 09:34 Dose: 1 puff Trazodone HCl (Trazodone Hcl 50 Mg Tablet) 50 mg PO BEDTIME MRX1 PRN PRN Reason: Insomnia Last Admin: 08/18/22 21:02 Dose: 50 mg Urea (Urea 15 Gm Powder) 15 gm PO BID [facility] Last Admin: 08/21/22 09:32 Dose: 15 gm Allergies Allergies Allergy/AdvReac Type Severity Reaction Status Date / Time olanzapine [From Zyprexa] Allergy Unknown Verified 09/03/21 14:49 prednisone Allergy Unknown Verified 09/03/21 14:49 NSAIDS (Non-Steroidal AdvReac Mild Abdominal Verified 09/03/21 14:49 Anti-Inflamma Pain Assessment & Plan Assessment & Plan (1) Schizophrenia, chronic condition: Status: Acute Code(s): F20.9 - Schizophrenia, unspecified (2) Chronic hyponatremia: Status: Acute Code(s): E87.1 - Hypo-osmolality and hyponatremia Plan 08/14: continue medications as established during medical stay at [facility] 08/04 - 08/13. stabilize psychiatrically. develop dispo plan. 08/15: pt refusing medications and care since admission. TSH mildly elevated, would recheck prior to discharge. continue to offer medications as prescribed. 08/16: partial compliance with care. continue current mgmt. 08/17/2022 Sodium somewhat decreased but 130 since patient appears better stabilized she is on urea unclear the veracity of multiple medical conditions that she states she has suffered from new Invega encourage med compliance trying get additional history 08/18/21 Pt somewhat withdrawn and fatigued ck labs 08/19/22 elevated ammonia 109 inc lactulose hold depakote restart at lower dose hx encephalopathy spoke to hospitalist service cont invega less liver interaction 08/20 Ammonia levels trending down. Today in 60's. Depakote has been held. Note that pt used to be on much lower dose of depakote- 750mg po daily but this time she had 1000mg po BID. She does hx of hyperammonemia. May benefit from lower dose. Pt declined medications yesterday- so other medication not overly sedating to explain fact that pt is mostly in bed. Will recheck CMP today. BUN elevated at 38. May benefit from fluids. 08/21 if same treatment Reason for continued inpatient stay Substantial Risk for: inability to function, rapid decompensation and med/psych decompensation Time Spent With Patient Time: Total time managing care of this patient today ___20_ minutes.
[2022-08-21 16:36] LABS: Glucose, Whole Blood 141 mg/dL (60-115)
[2022-08-21 19:57] LABS: Glucose, Whole Blood 194 mg/dL (60-115)
[2022-08-21] MEDS: Paliperidone ER 9 MG TAB.ER.24 PO (20:24)
[2022-08-21 20:33] VITALS: BP 161/95; PULSE 77; RESP 18; TEMP 36.2; O2SAT 94
[2022-08-22] MEDS: Omeprazole 20 MG CAPSULE.DR PO (06:20)
[2022-08-22 07:47] LABS: Glucose, Whole Blood 84 mg/dL (60-115)
[2022-08-22 08:45] VITALS: BP 166/82; PULSE 69; RESP 14; TEMP 36.3; O2SAT 93
[2022-08-22] MEDS: Urea 15 GM POWDER PO ×2 (08:50→22:16)
[2022-08-22] MEDS: Lactulose 20 GM/30 ML SOLUTION PO ×3 (08:50→21:29)
[2022-08-22] MEDS: Insulin Glargine,Hum.rec.anlog 100 UNIT/ML 10 ML VIAL 6 UNIT SUBCUT (08:51)
[2022-08-22] MEDS: Thiamine HCL 100 MG TABLET PO (08:52)
[2022-08-22] MEDS: Magnesium Oxide 400 MG TABLET PO (08:52)
[2022-08-22] MEDS: carvediloL 3.125 MG TABLET PO ×2 (08:52→21:31)
[2022-08-22] MEDS: cloNIDine HCL 0.1 MG TABLET PO (08:52)
[2022-08-22] MEDS: Folic Acid 1 MG TABLET PO (08:52)
[2022-08-22] MEDS: Furosemide 20 MG TABLET PO (08:52)
[2022-08-22] MEDS: Benztropine Mesylate 0.5 MG TABLET PO ×2 (08:52→21:31)
[2022-08-22] MEDS: Multivitamin TABLET 1 TAB PO (08:52)
[2022-08-22] MEDS: Lipase/Prot/Amylase 24/76/120K 1 CAP CAPSULE.DR PO ×3 (08:52→16:26)
--- NOTE | 2022-08-22 09:54 | HO.PSYCHPN ---
Subjective Subjective Date of Service: 08/22/22 Reason For Visit: psychosis Subjective Notes: Conditional Voluntary Interim History: The nursing staff reported the patient had been common cooperative, she took her medications but a lot of encouragement. On interview the patient denies new symptoms she is pleasantly confused. Mental Status Exam Mental Status Exam Patient Appearance: Appropriate Patient Orientation: Person Level of Consciousness: Awake and Appropriate Patient Behavior: Guarded and Passive Mood Description: Withdrawn Affect Description: Constricted Patient Cognition Impaired: Yes Ability to Follow Directions: Good Speech Pattern: Clear Hallucinations: None Delusions: Not Present Thought Process: Linear Thought Content: positive for [place] Judgement: Fair Diagnostics Vital Signs (24Hr): Vital Signs - 24 hr 08/21/22 20:33 08/22/22 08:45 Temperature 97.1 F 97.4 F Pulse Rate 77 69 Respiratory Rate 18 14 Blood Pressure 161/95 H 166/82 H Pulse Oximetry 94 93 Oxygen Delivery Method Room Air Room Air BMI result Body Mass Index 30.3 Labs 08/20/22 07:57 08/20/22 14:50 Labs: Laboratory Results - last 48 hr 08/20/22 08/20/22 08/20/22 11:27 14:50 16:22 Sodium 133 L Potassium 4.4 Chloride 102 Carbon Dioxide 23 Anion Gap 12 BUN 44 H Creatinine 0.85 Estim Creat Clear Calc 83.0 Estimated GFR > 60 POC Glucose 156 H 103 Random Glucose 64 Calcium 9.3 Total Bilirubin 0.5 AST 27 ALT 16 Alkaline Phosphatase 130 H Total Protein 7.9 Albumin 3.4 L 08/20/22 08/21/22 08/21/22 21:24 07:33 11:06 Sodium Potassium Chloride Carbon Dioxide Anion Gap BUN Creatinine Estim Creat Clear Calc Estimated GFR POC Glucose 134 H 93 157 H Random Glucose Calcium Total Bilirubin AST ALT Alkaline Phosphatase Total Protein Albumin 08/21/22 08/21/22 08/22/22 16:25 19:48 07:42 Sodium Potassium Chloride Carbon Dioxide Anion Gap BUN Creatinine Estim Creat Clear Calc Estimated GFR POC Glucose 141 H 194 H 84 Random Glucose Calcium Total Bilirubin AST ALT Alkaline Phosphatase Total Protein Albumin Medications Medications Current Medications Acetaminophen (Acetaminophen 325 Mg Tablet) 650 mg PO Q6H PRN PRN Reason: Headache/Pain Mild Scale (1-3) Last Admin: 08/18/22 21:03 Dose: 325 mg Al Hydroxide/Mg Hydroxide (Magnesium Hydrox/Alum Hydrox 30 Ml Oral.Susp) 30 ml PO Q6H PRN PRN Reason: Heartburn/Nausea Lipase/Protease/Amylase (Lipase/Prot/Amylase 24/76/120k 1 Cap Capsule.Dr) 1 cap PO TIDWM [facility] Last Admin: 08/22/22 08:52 Dose: 1 cap Benztropine Mesylate (Benztropine Mesylate 0.5 Mg Tablet) 0.5 mg PO BID [facility] Last Admin: 08/22/22 08:52 Dose: 0.5 mg Carvedilol (Carvedilol 3.125 Mg Tablet) 3.125 mg PO BID [facility]; Protocol Last Admin: 08/22/22 08:52 Dose: 3.125 mg Clonidine HCl (Clonidine Hcl 0.1 Mg Tablet) 0.1 mg PO DAILY [facility]; Protocol Last Admin: 08/22/22 08:52 Dose: 0.1 mg Folic Acid (Folic Acid 1 Mg Tablet) 1 mg PO DAILY [facility] Last Admin: 08/22/22 08:52 Dose: 1 mg Furosemide (Furosemide 20 Mg Tablet) 20 mg PO DAILY [facility]; Protocol Last Admin: 08/22/22 08:52 Dose: 20 mg Glucose (Glucose Gel 15 Gm Gel..Gram.) 15 gm PO Q15M PRN; Protocol PRN Reason: per Hypoglycemia Standing Ord. Guaifenesin (Guaifenesin 100 Mg/5 Ml Liquid) 5 ml PO TID PRN PRN Reason: Cough Hydroxyzine HCl (Hydroxyzine Hcl 50 Mg Tablet) 50 mg PO TID PRN PRN Reason: Anxiety Dextrose (D10) 250 mls @ 750 mls/hr IV Q15M PRN; Protocol PRN Reason: per Hypoglycemia Standing Ord. Insulin Glargine (Insulin Glargine,Hum.Rec.Anlog 100 Unit/Ml 10 Ml Vial) 6 unit SUBCUT DAILY [facility] Last Admin: 08/22/22 08:51 Dose: 6 unit Insulin Human Lispro (Insulin Lispro 100 Unit/Ml 3 Ml Vial) 0 unit SUBCUT QIDACHS [facility]; Protocol Last Admin: 08/22/22 08:53 Dose: Not Given Lactulose (Lactulose 20 Gm/30 Ml Solution) 20 gm PO TID [facility] Last Admin: 08/22/22 08:50 Dose: 20 gm Magnesium Hydroxide (Milk Of Magnesia 30 Ml Oral.Susp) 30 ml PO DAILY PRN PRN Reason: Constipation Magnesium Oxide (Magnesium Oxide 400 Mg Tablet) 400 mg PO DAILY [facility] Last Admin: 08/22/22 08:52 Dose: 400 mg Multivitamins/Vitamin C (Multivitamin Tablet) 1 tab PO DAILY [facility] Last Admin: 08/22/22 08:52 Dose: 1 tab Omeprazole (Omeprazole 20 Mg Capsule.Dr) 20 mg PO DAILY@0630 [facility] Last Admin: 08/22/22 06:20 Dose: 20 mg Paliperidone (Paliperidone Er 9 Mg Tab.Er.24) 9 mg PO BEDTIME [facility] Last Admin: 08/21/22 20:24 Dose: 9 mg Senna/Docusate Sodium (Sennosides/Docusate Sodium Tablet) 1 tab PO BID PRN PRN Reason: Constipation Thiamine HCl (Thiamine Hcl 100 Mg Tablet) 100 mg PO DAILY [facility] Last Admin: 08/22/22 08:52 Dose: 100 mg Tiotropium [place] (Tiotropium [place] 18 Mcg Cap.W.Dev) 1 puff INHALE RDAILY [facility] Last Admin: 08/22/22 08:49 Dose: 1 puff Trazodone HCl (Trazodone Hcl 50 Mg Tablet) 50 mg PO BEDTIME MRX1 PRN PRN Reason: Insomnia Last Admin: 08/18/22 21:02 Dose: 50 mg Urea (Urea 15 Gm Powder) 15 gm PO BID [facility] Last Admin: 08/22/22 08:50 Dose: 15 gm Allergies Allergies Allergy/AdvReac Type Severity Reaction Status Date / Time olanzapine [From Zyprexa] Allergy Unknown Verified 09/03/21 14:49 prednisone Allergy Unknown Verified 09/03/21 14:49 NSAIDS (Non-Steroidal AdvReac Mild Abdominal Verified 09/03/21 14:49 Anti-Inflamma Pain Assessment & Plan Assessment & Plan (1) Schizophrenia, chronic condition: Status: Acute Code(s): F20.9 - Schizophrenia, unspecified (2) Chronic hyponatremia: Status: Acute Code(s): E87.1 - Hypo-osmolality and hyponatremia Plan 08/14: continue medications as established during medical stay at [facility] 08/04 - 08/13. stabilize psychiatrically. develop dispo plan. 08/15: pt refusing medications and care since admission. TSH mildly elevated, would recheck prior to discharge. continue to offer medications as prescribed. 08/16: partial compliance with care. continue current mgmt. 08/17/2022 Sodium somewhat decreased but 130 since patient appears better stabilized she is on urea unclear the veracity of multiple medical conditions that she states she has suffered from new Invega encourage med compliance trying get additional history 08/18/21 Pt somewhat withdrawn and fatigued ck labs 08/19/22 elevated ammonia 109 inc lactulose hold depakote restart at lower dose hx encephalopathy spoke to hospitalist service cont invega less liver interaction 08/20 Ammonia levels trending down. Today in 60's. Depakote has been held. Note that pt used to be on much lower dose of depakote- 750mg po daily but this time she had 1000mg po BID. She does hx of hyperammonemia. May benefit from lower dose. Pt declined medications yesterday- so other medication not overly sedating to explain fact that pt is mostly in bed. Will recheck CMP today. BUN elevated at 38. May benefit from fluids. 08/21 if same treatment 08/22 keep same treatment Reason for continued inpatient stay Substantial Risk for: inability to function, rapid decompensation and med/psych decompensation Time Spent With Patient Time: Total time managing care of this patient today __20__ minutes.
[2022-08-22 11:11] LABS: Glucose, Whole Blood 147 mg/dL (60-115)
[2022-08-22 16:20] LABS: Glucose, Whole Blood 144 mg/dL (60-115)
[2022-08-22 18:00] VITALS: BP 166/82; PULSE 65; RESP 14; TEMP 36.3; O2SAT 93
[2022-08-22 21:26] LABS: Glucose, Whole Blood 130 mg/dL (60-115)
[2022-08-22] MEDS: Paliperidone ER 9 MG TAB.ER.24 PO (21:30)
[2022-08-22] MEDS: traZODone HCL 50 MG TABLET PO (21:32)
[2022-08-22 23:06] VITALS: BP 121/77; PULSE 77
[2022-08-23 08:07] LABS: Glucose, Whole Blood 110 mg/dL (60-115)
[2022-08-23 08:30] VITALS: BP 101/63; PULSE 86; RESP 18; TEMP 36.3; O2SAT 93
[2022-08-23] MEDS: Insulin Glargine,Hum.rec.anlog 100 UNIT/ML 10 ML VIAL 6 UNIT SUBCUT (09:22)
[2022-08-23] MEDS: Urea 15 GM POWDER PO ×2 (09:22→20:35)
[2022-08-23] MEDS: Multivitamin TABLET 1 TAB PO (09:23)
[2022-08-23] MEDS: Lipase/Prot/Amylase 24/76/120K 1 CAP CAPSULE.DR PO ×3 (09:24→17:37)
[2022-08-23] MEDS: carvediloL 3.125 MG TABLET PO ×2 (09:24→20:35)
[2022-08-23] MEDS: Omeprazole 20 MG CAPSULE.DR PO (09:24)
[2022-08-23] MEDS: Thiamine HCL 100 MG TABLET PO (09:24)
[2022-08-23] MEDS: cloNIDine HCL 0.1 MG TABLET PO (09:24)
[2022-08-23] MEDS: Magnesium Oxide 400 MG TABLET PO (09:24)
[2022-08-23] MEDS: Furosemide 20 MG TABLET PO (09:24)
[2022-08-23] MEDS: Folic Acid 1 MG TABLET PO (09:25)
[2022-08-23] MEDS: Benztropine Mesylate 0.5 MG TABLET PO ×2 (09:25→20:35)
[2022-08-23 11:49] LABS: Glucose, Whole Blood 167 mg/dL (60-115)
[2022-08-23] MEDS: Insulin Lispro 100 UNIT/ML 3 ML VIAL SUBCUT ×2 (12:12→17:36)
[2022-08-23] MEDS: Lactulose 20 GM/30 ML SOLUTION PO ×2 (15:05→20:35)
--- NOTE | 2022-08-23 16:31 | HO.PSYCHPN ---
Subjective Subjective Date of Service: 08/23/22 Reason For Visit: psychosis Subjective Notes: Conditional Voluntary Interim History: The nursing staff reported that patient has been doing very well, laughing and compliant with treatment. The foster care social worker reported that being a cap 1 0 can take care in the community. On interview the patient denies new symptoms she feels fine with planning for discharge tomorrow. Mental Status Exam Mental Status Exam Patient Appearance: Well Grooomed and Appropriate Patient Orientation: Person and Situation Level of Consciousness: Awake and Appropriate Patient Behavior: Guarded and Passive Mood Description: Withdrawn Affect Description: Constricted Patient Cognition Impaired: Yes Ability to Follow Directions: Good Speech Pattern: Clear Hallucinations: None Delusions: Not Present Thought Process: Distracted and Slowed Thinking Thought Content: positive for [place] Judgement: Fair Diagnostics Vital Signs (24Hr): Vital Signs - 24 hr 08/22/22 18:00 08/22/22 23:06 Temperature 97.4 F Pulse Rate 65 77 Respiratory Rate 14 Blood Pressure 166/82 H 121/77 Pulse Oximetry 93 Oxygen Delivery Method Room Air BMI result Body Mass Index 30.3 Labs 08/20/22 07:57 08/20/22 14:50 Labs: Laboratory Results - last 48 hr 08/21/22 08/21/22 08/22/22 16:25 19:48 07:42 POC Glucose 141 H 194 H 84 08/22/22 08/22/22 08/22/22 11:05 16:13 21:22 POC Glucose 147 H 144 H 130 H 08/23/22 08/23/22 08:00 11:39 POC Glucose 110 167 H Medications Medications Current Medications Acetaminophen (Acetaminophen 325 Mg Tablet) 650 mg PO Q6H PRN PRN Reason: Headache/Pain Mild Scale (1-3) Last Admin: 08/18/22 21:03 Dose: 325 mg Al Hydroxide/Mg Hydroxide (Magnesium Hydrox/Alum Hydrox 30 Ml Oral.Susp) 30 ml PO Q6H PRN PRN Reason: Heartburn/Nausea Lipase/Protease/Amylase (Lipase/Prot/Amylase 24/76/120k 1 Cap Capsule.Dr) 1 cap PO TIDWM [facility] Last Admin: 08/23/22 12:11 Dose: 1 cap Benztropine Mesylate (Benztropine Mesylate 0.5 Mg Tablet) 0.5 mg PO BID [facility] Last Admin: 08/23/22 09:25 Dose: 0.5 mg Carvedilol (Carvedilol 3.125 Mg Tablet) 3.125 mg PO BID [facility]; Protocol Last Admin: 08/23/22 09:24 Dose: 3.125 mg Clonidine HCl (Clonidine Hcl 0.1 Mg Tablet) 0.1 mg PO DAILY [facility]; Protocol Last Admin: 08/23/22 09:24 Dose: 0.1 mg Folic Acid (Folic Acid 1 Mg Tablet) 1 mg PO DAILY [facility] Last Admin: 08/23/22 09:25 Dose: 1 mg Furosemide (Furosemide 20 Mg Tablet) 20 mg PO DAILY [facility]; Protocol Last Admin: 08/23/22 09:24 Dose: 20 mg Glucose (Glucose Gel 15 Gm Gel..Gram.) 15 gm PO Q15M PRN; Protocol PRN Reason: per Hypoglycemia Standing Ord. Guaifenesin (Guaifenesin 100 Mg/5 Ml Liquid) 5 ml PO TID PRN PRN Reason: Cough Hydroxyzine HCl (Hydroxyzine Hcl 50 Mg Tablet) 50 mg PO TID PRN PRN Reason: Anxiety Dextrose (D10) 250 mls @ 750 mls/hr IV Q15M PRN; Protocol PRN Reason: per Hypoglycemia Standing Ord. Insulin Glargine (Insulin Glargine,Hum.Rec.Anlog 100 Unit/Ml 10 Ml Vial) 6 unit SUBCUT DAILY [facility] Last Admin: 08/23/22 09:22 Dose: 6 unit Insulin Human Lispro (Insulin Lispro 100 Unit/Ml 3 Ml Vial) 0 unit SUBCUT QIDACHS [facility]; Protocol Last Admin: 08/23/22 12:12 Dose: 2 unit Lactulose (Lactulose 20 Gm/30 Ml Solution) 20 gm PO TID [facility] Last Admin: 08/23/22 15:05 Dose: 20 gm Magnesium Hydroxide (Milk Of Magnesia 30 Ml Oral.Susp) 30 ml PO DAILY PRN PRN Reason: Constipation Magnesium Oxide (Magnesium Oxide 400 Mg Tablet) 400 mg PO DAILY [facility] Last Admin: 08/23/22 09:24 Dose: 400 mg Multivitamins/Vitamin C (Multivitamin Tablet) 1 tab PO DAILY [facility] Last Admin: 08/23/22 09:23 Dose: 1 tab Omeprazole (Omeprazole 20 Mg Capsule.Dr) 20 mg PO DAILY@0630 [facility] Last Admin: 08/23/22 09:24 Dose: 20 mg Paliperidone (Paliperidone Er 9 Mg Tab.Er.24) 9 mg PO BEDTIME [facility] Last Admin: 08/22/22 21:30 Dose: 9 mg Senna/Docusate Sodium (Sennosides/Docusate Sodium Tablet) 1 tab PO BID PRN PRN Reason: Constipation Thiamine HCl (Thiamine Hcl 100 Mg Tablet) 100 mg PO DAILY [facility] Last Admin: 08/23/22 09:24 Dose: 100 mg Tiotropium [place] (Tiotropium [place] 18 Mcg Cap.W.Dev) 1 puff INHALE RDAILY [facility] Last Admin: 08/23/22 09:23 Dose: 1 puff Trazodone HCl (Trazodone Hcl 50 Mg Tablet) 50 mg PO BEDTIME MRX1 PRN PRN Reason: Insomnia Last Admin: 08/22/22 21:32 Dose: 50 mg Urea (Urea 15 Gm Powder) 15 gm PO BID [facility] Last Admin: 08/23/22 09:22 Dose: 15 gm Allergies Allergies Allergy/AdvReac Type Severity Reaction Status Date / Time olanzapine [From Zyprexa] Allergy Unknown Verified 09/03/21 14:49 prednisone Allergy Unknown Verified 09/03/21 14:49 NSAIDS (Non-Steroidal AdvReac Mild Abdominal Verified 09/03/21 14:49 Anti-Inflamma Pain Assessment & Plan Assessment & Plan (1) Schizophrenia, chronic condition: Status: Acute Code(s): F20.9 - Schizophrenia, unspecified (2) Chronic hyponatremia: Status: Acute Code(s): E87.1 - Hypo-osmolality and hyponatremia Plan 08/14: continue medications as established during medical stay at [facility] 08/04 - 08/13. stabilize psychiatrically. develop dispo plan. 08/15: pt refusing medications and care since admission. TSH mildly elevated, would recheck prior to discharge. continue to offer medications as prescribed. 08/16: partial compliance with care. continue current mgmt. 08/17/2022 Sodium somewhat decreased but 130 since patient appears better stabilized she is on urea unclear the veracity of multiple medical conditions that she states she has suffered from new Invega encourage med compliance trying get additional history 08/18/21 Pt somewhat withdrawn and fatigued ck labs 08/19/22 elevated ammonia 109 inc lactulose hold depakote restart at lower dose hx encephalopathy spoke to hospitalist service cont invega less liver interaction 08/20 Ammonia levels trending down. Today in 60's. Depakote has been held. Note that pt used to be on much lower dose of depakote- 750mg po daily but this time she had 1000mg po BID. She does hx of hyperammonemia. May benefit from lower dose. Pt declined medications yesterday- so other medication not overly sedating to explain fact that pt is mostly in bed. Will recheck CMP today. BUN elevated at 38. May benefit from fluids. 08/21 if same treatment 08/22 keep same treatment / keep same treatment discharge tomorrow Reason for continued inpatient stay Substantial Risk for: inability to function, rapid decompensation and med/psych decompensation Time Spent With Patient Time: Total time managing care of this patient today __20__ minutes.
[2022-08-23 17:18] LABS: Glucose, Whole Blood 156 mg/dL (60-115)
[2022-08-23 19:50] VITALS: BP 99/61; PULSE 86; RESP 18; TEMP 36.3; O2SAT 94
[2022-08-23] MEDS: traZODone HCL 50 MG TABLET PO (20:35)
[2022-08-23] MEDS: Paliperidone ER 9 MG TAB.ER.24 PO (20:35)
[2022-08-23 20:50] LABS: Glucose, Whole Blood 158 mg/dL (60-115)
[2022-08-24 07:30] VITALS: BP 111/64; PULSE 94; RESP 17; TEMP 36.2; O2SAT 93
[2022-08-24 07:49] LABS: Glucose, Whole Blood 88 mg/dL (60-115)
[2022-08-24] MEDS: Insulin Glargine,Hum.rec.anlog 100 UNIT/ML 10 ML VIAL 6 UNIT SUBCUT (08:44)
[2022-08-24] MEDS: Benztropine Mesylate 0.5 MG TABLET PO (08:46)
[2022-08-24] MEDS: Lipase/Prot/Amylase 24/76/120K 1 CAP CAPSULE.DR PO ×2 (08:47→12:15)
[2022-08-24] MEDS: cloNIDine HCL 0.1 MG TABLET PO (08:47)
[2022-08-24] MEDS: Thiamine HCL 100 MG TABLET PO (08:47)
[2022-08-24] MEDS: carvediloL 3.125 MG TABLET PO (08:48)
[2022-08-24] MEDS: Multivitamin TABLET 1 TAB PO (08:48)
[2022-08-24] MEDS: Magnesium Oxide 400 MG TABLET PO (08:48)
[2022-08-24] MEDS: Urea 15 GM POWDER PO (08:48)
[2022-08-24] MEDS: Furosemide 20 MG TABLET PO (08:48)
[2022-08-24] MEDS: Folic Acid 1 MG TABLET PO (08:48)
[2022-08-24] MEDS: Lactulose 20 GM/30 ML SOLUTION PO (08:52)
[2022-08-24 09:42] LABS: MANUAL DIFF FLAG NO
[2022-08-24 09:50] LABS: Ammonia 38 umol/L (13-55)
[2022-08-24 10:02] LABS: Basophils Percent Auto 0.5 % (0-2); Eosinophils Absolute Auto 0.2 X10*3/uL (0.0-0.4); Hematocrit 35.2 % (37.0-47.0); Hemoglobin 11.9 g/dl (12.0-16.0); Imm Gran Abs Auto 0.01 X10*3/uL (0.00-0.03); Imm Gran Pct Auto 0.1 % (0.0-0.4); Lymphocytes Absolute Auto 4.3 X10*3/uL (1.2-4.9); Mean Corpuscular HGB Conc 33.8 g/dl (31.0-35.0); Mean Corpuscular Hemoglobin 33.1 pg (27.0-33.0); Mean Corpuscular Volume 97.8 fL (80.0-98.0); Mean Platelet Volume 12.1 fL (9.4-12.3); Monocytes Absolute Auto 1.3 X10*3/uL (0.1-1.2); Monocytes Percent Auto 15.5 % (2-11); Neutrophils Absolute Auto 2.3 x10*3/uL (2.0-8.3); Neutrophils Percent Auto 27.9 % (45-73); Platelet Count 286 X10*3/uL (160-400); Red Cell Distribution Width 15.8 % (11.0-16.0); White Blood Count 8.1 X10*3/uL (4.8-10.8)
[2022-08-24 10:24] LABS: Alanine Aminotransferase 31 U/L (0-31); Albumin Level 3.4 g/dL (3.5-5.0); Alkaline Phosphatase 140 U/L (39-117); Anion Gap 13 (12-20); Aspartate Amino Transferase 46 U/L (5-31); Bilirubin Total 0.6 mg/dL (0.0-1.0); Blood Urea Nitrogen 46 mg/dL (9-16); Calcium 9.4 mg/dL (8.4-10.2); Carbon Dioxide 23 mmol/L (22-29); Chloride 106 mmol/L (96-108); Estimated Glomerular Filt Rate > 60; Glucose Random 146 mg/dL (60-115); Potassium 4.5 mmol/L (3.3-5.1); Sodium 137 mmol/L (135-145); Total Protein 7.5 g/dL (6.5-8.0)
--- NOTE | 2022-08-24 10:32 | P.DS_ITS ---
DS: Providers Provider Date of Service: 08/24/22 Date of admission: 08/13/22 17:39 Primary care physician: Jaki Bishop MD Consults: 08/13/22 17:39 Consult to Hospitalist Routine Comment: Consulting Provider: Hospitalist Reason For Exam: OSH admission DS: Diagnosis Discharge Diagnosis (1) Schizophrenia, chronic condition: Status: Acute (2) Chronic hyponatremia: Status: Acute DS: Medications Discharge Medications Home Medications: Home Medications Medication Instructions Recorded Confirmed pantoprazole 40 mg tablet,delayed 1 tab PO DAILY 10/28/21 08/13/22 release Previous Rx's Medication Instructions Recorded benztropine 1 mg tablet 1 mg PO BEDTIME #30 tabs 08/24/22 carvedilol 3.125 mg tablet 3.125 mg PO BID #60 tabs 08/24/22 clonidine HCl 0.1 mg tablet 0.1 mg PO DAILY #30 tabs 08/24/22 folic acid 1 mg tablet 1 mg PO DAILY #30 tabs 08/24/22 furosemide 20 mg tablet 20 mg PO DAILY #30 tabs 08/24/22 insulin glargine 100 unit/mL 6 unit (0.06 mL) subcut DAILY #10 08/24/22 subcutaneous solution (Lantus mL U-100 Insulin) insulin lispro 100 unit/mL See Protocol subcut QIDACHS #10 mL 08/24/22 subcutaneous solution (Humalog U-100 Insulin) lactulose 20 gram/30 mL oral 20 g (30 mL) PO TID #1,200 mL 08/24/22 solution [id number] 1 cap PO TIDWM #90 caps 08/24/22 24,000-76,000-120,000 unit capsule,delayed rel (Creon) magnesium oxide 400 mg (241.3 mg 400 mg PO DAILY #30 tabs 08/24/22 magnesium) tablet multivitamin (Daily-Kimberly tablet) 1 tab PO DAILY #30 tabs 08/24/22 paliperidone 9 mg tablet,extended 9 mg PO BEDTIME #30 tabs 08/24/22 release 24 hr (Invega) sennosides 8.6 mg-docusate sodium 1 tab PO BID PRN Constipation #60 08/24/22 50 mg tablet (Senna Plus) tabs thiamine mononitrate (vit B1) 100 100 mg PO DAILY #30 tabs 08/24/22 mg tablet tiotropium bromide 18 mcg capsule 18 mcg inhalation RDAILY #30 08/24/22 with inhalation device (Spiriva inhalations with HandiHaler) trazodone 50 mg tablet 50 mg PO BEDTIME PRN Insomnia #30 08/24/22 tabs urea (bulk) 100 % powder 15 ea PO BID #1 g 08/24/22 Mental Status Exam Mental Status Exam Narrative: Appearance: casually groomed, fair hygiene in NAD Behavior:cooperative psychomotor: no agitation or retardation noted Speech:clear, regular response rate, spontaneous Thought process: goal oriented, focused on discharge Thought content: looking forward to be discharged, no overt delusional or psychosis noted or reported Mood: good Affect: constricted SI:denies HI:denies VH/AH:denies Delusions:less paranoid delusions Insight/judgment:poor x 2. Memory/cog: alert, oriented x 4. Data Data Completed and Pending Completed studies during hospitalization [Text1]: 08/17/22 08/17/22 08/17/22 11:19 12:28 16:04 WBC RBC Hgb Hct MCV MCH MCHC RDW Plt Count MPV Immature Gran % (Auto) Neut % (Auto) Lymph % (Auto) Mcleod % (Auto) Eos % (Auto) Baso % (Auto) Lymph # (Auto) Mcleod # (Auto) Eos # (Auto) Baso # (Auto) Abs Immat Gran (auto) Absolute Neuts (auto) Absolute Nucleated RBC Nucleated RBC % (auto) Sodium 131 L Potassium 4.9 Chloride 98 Carbon Dioxide 24 Anion Gap 14 BUN 27 H Creatinine 0.81 Estim Creat Clear Calc 87.0 Estimated GFR > 60 POC Glucose 157 H 89 Random Glucose 137 H Fasting Glucose Calcium 9.4 Total Bilirubin Direct Bilirubin AST ALT Alkaline Phosphatase Ammonia Total Protein Albumin Valproic Acid 08/17/22 08/18/22 08/18/22 19:49 07:32 11:27 WBC RBC Hgb Hct MCV MCH MCHC RDW Plt Count MPV Immature Gran % (Auto) Neut % (Auto) Lymph % (Auto) Mcleod % (Auto) Eos % (Auto) Baso % (Auto) Lymph # (Auto) Mcleod # (Auto) Eos # (Auto) Baso # (Auto) Abs Immat Gran (auto) Absolute Neuts (auto) Absolute Nucleated RBC Nucleated RBC % (auto) Sodium Potassium Chloride Carbon Dioxide Anion Gap BUN Creatinine Estim Creat Clear Calc Estimated GFR POC Glucose 114 111 154 H Random Glucose Fasting Glucose Calcium Total Bilirubin Direct Bilirubin AST ALT Alkaline Phosphatase Ammonia Total Protein Albumin Valproic Acid 08/18/22 08/18/22 08/19/22 16:07 21:06 07:42 WBC RBC Hgb Hct MCV MCH MCHC RDW Plt Count MPV Immature Gran % (Auto) Neut % (Auto) Lymph % (Auto) Mcleod % (Auto) Eos % (Auto) Baso % (Auto) Lymph # (Auto) Mcleod # (Auto) Eos # (Auto) Baso # (Auto) Abs Immat Gran (auto) Absolute Neuts (auto) Absolute Nucleated RBC Nucleated RBC % (auto) Sodium Potassium Chloride Carbon Dioxide Anion Gap BUN Creatinine Estim Creat Clear Calc Estimated GFR POC Glucose 125 H 109 82 Random Glucose Fasting Glucose Calcium Total Bilirubin Direct Bilirubin AST ALT Alkaline Phosphatase Ammonia Total Protein Albumin Valproic Acid 08/19/22 08/19/22 08/19/22 08:01 08:01 08:01 WBC RBC Hgb Hct MCV MCH MCHC RDW Plt Count MPV Immature Gran % (Auto) Neut % (Auto) Lymph % (Auto) Mcleod % (Auto) Eos % (Auto) Baso % (Auto) Lymph # (Auto) Mcleod # (Auto) Eos # (Auto) Baso # (Auto) Abs Immat Gran (auto) Absolute Neuts (auto) Absolute Nucleated RBC Nucleated RBC % (auto) Sodium 133 L Potassium 4.6 Chloride 101 Carbon Dioxide 22 Anion Gap 15 BUN 35 H Creatinine 0.81 Estim Creat Clear Calc 87.0 Estimated GFR > 60 POC Glucose Random Glucose Fasting Glucose 89 Calcium 9.5 Total Bilirubin 0.4 Direct Bilirubin AST 28 ALT 19 Alkaline Phosphatase 138 H Ammonia 109 H Total Protein 8.0 Albumin 3.4 L Valproic Acid 97.0 08/19/22 08/19/22 08/20/22 11:34 16:29 07:57 WBC 7.1 RBC 3.46 L D Hgb 11.5 L Hct 33.2 L MCV 96.0 MCH 33.2 H MCHC 34.6 RDW 16.1 H Plt Count 220 D MPV 11.0 Immature Gran % (Auto) 0.1 Neut % (Auto) 20.2 L Lymph % (Auto) 59.0 H Mcleod % (Auto) 18.5 H Eos % (Auto) 1.8 Baso % (Auto) 0.4 Lymph # (Auto) 4.2 Mcleod # (Auto) 1.3 H Eos # (Auto) 0.1 Baso # (Auto) 0.0 Abs Immat Gran (auto) 0.01 Absolute Neuts (auto) 1.4 L Absolute Nucleated RBC 0.000 Nucleated RBC % (auto) 0.0 Sodium Potassium Chloride Carbon Dioxide Anion Gap BUN Creatinine Estim Creat Clear Calc Estimated GFR POC Glucose 92 127 H Random Glucose Fasting Glucose Calcium Total Bilirubin Direct Bilirubin AST ALT Alkaline Phosphatase Ammonia Total Protein Albumin Valproic Acid 08/20/22 08/20/22 08/20/22 07:57 07:57 08:02 WBC RBC Hgb Hct MCV MCH MCHC RDW Plt Count MPV Immature Gran % (Auto) Neut % (Auto) Lymph % (Auto) Mcleod % (Auto) Eos % (Auto) Baso % (Auto) Lymph # (Auto) Mcleod # (Auto) Eos # (Auto) Baso # (Auto) Abs Immat Gran (auto) Absolute Neuts (auto) Absolute Nucleated RBC Nucleated RBC % (auto) Sodium Potassium Chloride Carbon Dioxide Anion Gap BUN Creatinine Estim Creat Clear Calc Estimated GFR POC Glucose 100 Random Glucose Fasting Glucose Calcium Total Bilirubin 0.5 Direct Bilirubin 0.2 AST 25 ALT 15 Alkaline Phosphatase 126 H Ammonia 68 H Total Protein 7.2 Albumin 3.1 L Valproic Acid 08/20/22 08/20/22 08/20/22 11:27 14:50 16:22 WBC RBC Hgb Hct MCV MCH MCHC RDW Plt Count MPV Immature Gran % (Auto) Neut % (Auto) Lymph % (Auto) Mcleod % (Auto) Eos % (Auto) Baso % (Auto) Lymph # (Auto) Mcleod # (Auto) Eos # (Auto) Baso # (Auto) Abs Immat Gran (auto) Absolute Neuts (auto) Absolute Nucleated RBC Nucleated RBC % (auto) Sodium 133 L Potassium 4.4 Chloride 102 Carbon Dioxide 23 Anion Gap 12 BUN 44 H Creatinine 0.85 Estim Creat Clear Calc 83.0 Estimated GFR > 60 POC Glucose 156 H 103 Random Glucose 64 Fasting Glucose Calcium 9.3 Total Bilirubin 0.5 Direct Bilirubin AST 27 ALT 16 Alkaline Phosphatase 130 H Ammonia Total Protein 7.9 Albumin 3.4 L Valproic Acid 08/20/22 08/21/22 08/21/22 21:24 07:33 11:06 WBC RBC Hgb Hct MCV MCH MCHC RDW Plt Count MPV Immature Gran % (Auto) Neut % (Auto) Lymph % (Auto) Mcleod % (Auto) Eos % (Auto) Baso % (Auto) Lymph # (Auto) Mcleod # (Auto) Eos # (Auto) Baso # (Auto) Abs Immat Gran (auto) Absolute Neuts (auto) Absolute Nucleated RBC Nucleated RBC % (auto) Sodium Potassium Chloride Carbon Dioxide Anion Gap BUN Creatinine Estim Creat Clear Calc Estimated GFR POC Glucose 134 H 93 157 H Random Glucose Fasting Glucose Calcium Total Bilirubin Direct Bilirubin AST ALT Alkaline Phosphatase Ammonia Total Protein Albumin Valproic Acid 08/21/22 08/21/22 08/22/22 16:25 19:48 07:42 WBC RBC Hgb Hct MCV MCH MCHC RDW Plt Count MPV Immature Gran % (Auto) Neut % (Auto) Lymph % (Auto) Mcleod % (Auto) Eos % (Auto) Baso % (Auto) Lymph # (Auto) Mcleod # (Auto) Eos # (Auto) Baso # (Auto) Abs Immat Gran (auto) Absolute Neuts (auto) Absolute Nucleated RBC Nucleated RBC % (auto) Sodium Potassium Chloride Carbon Dioxide Anion Gap BUN Creatinine Estim Creat Clear Calc Estimated GFR POC Glucose 141 H 194 H 84 Random Glucose Fasting Glucose Calcium Total Bilirubin Direct Bilirubin AST ALT Alkaline Phosphatase Ammonia Total Protein Albumin Valproic Acid 08/22/22 08/22/22 08/22/22 11:05 16:13 21:22 WBC RBC Hgb Hct MCV MCH MCHC RDW Plt Count MPV Immature Gran % (Auto) Neut % (Auto) Lymph % (Auto) Mcleod % (Auto) Eos % (Auto) Baso % (Auto) Lymph # (Auto) Mcleod # (Auto) Eos # (Auto) Baso # (Auto) Abs Immat Gran (auto) Absolute Neuts (auto) Absolute Nucleated RBC Nucleated RBC % (auto) Sodium Potassium Chloride Carbon Dioxide Anion Gap BUN Creatinine Estim Creat Clear Calc Estimated GFR POC Glucose 147 H 144 H 130 H Random Glucose Fasting Glucose Calcium Total Bilirubin Direct Bilirubin AST ALT Alkaline Phosphatase Ammonia Total Protein Albumin Valproic Acid 08/23/22 08/23/22 08/23/22 08:00 11:39 17:02 WBC RBC Hgb Hct MCV MCH MCHC RDW Plt Count MPV Immature Gran % (Auto) Neut % (Auto) Lymph % (Auto) Mcleod % (Auto) Eos % (Auto) Baso % (Auto) Lymph # (Auto) Mcleod # (Auto) Eos # (Auto) Baso # (Auto) Abs Immat Gran (auto) Absolute Neuts (auto) Absolute Nucleated RBC Nucleated RBC % (auto) Sodium Potassium Chloride Carbon Dioxide Anion Gap BUN Creatinine Estim Creat Clear Calc Estimated GFR POC Glucose 110 167 H 156 H Random Glucose Fasting Glucose Calcium Total Bilirubin Direct Bilirubin AST ALT Alkaline Phosphatase Ammonia Total Protein Albumin Valproic Acid 08/23/22 08/24/22 08/24/22 20:44 07:42 09:33 WBC RBC Hgb Hct MCV MCH MCHC RDW Plt Count MPV Immature Gran % (Auto) Neut % (Auto) Lymph % (Auto) Mcleod % (Auto) Eos % (Auto) Baso % (Auto) Lymph # (Auto) Mcleod # (Auto) Eos # (Auto) Baso # (Auto) Abs Immat Gran (auto) Absolute Neuts (auto) Absolute Nucleated RBC Nucleated RBC % (auto) Sodium Potassium Chloride Carbon Dioxide Anion Gap BUN Creatinine Estim Creat Clear Calc Estimated GFR POC Glucose 158 H 88 Random Glucose Fasting Glucose Calcium Total Bilirubin Direct Bilirubin AST ALT Alkaline Phosphatase Ammonia 38 Total Protein Albumin Valproic Acid 08/24/22 08/24/22 09:33 09:33 WBC 8.1 RBC 3.60 L Hgb 11.9 L Hct 35.2 L MCV 97.8 MCH 33.1 H MCHC 33.8 RDW 15.8 Plt Count 286 D MPV 12.1 Immature Gran % (Auto) 0.1 Neut % (Auto) 27.9 L Lymph % (Auto) 53.0 H Mcleod % (Auto) 15.5 H Eos % (Auto) 3.0 Baso % (Auto) 0.5 Lymph # (Auto) 4.3 Mcleod # (Auto) 1.3 H Eos # (Auto) 0.2 Baso # (Auto) 0.0 Abs Immat Gran (auto) 0.01 Absolute Neuts (auto) 2.3 Absolute Nucleated RBC 0.000 Nucleated RBC % (auto) 0.0 Sodium 137 Potassium 4.5 Chloride 106 Carbon Dioxide 23 Anion Gap 13 BUN 46 H Creatinine 0.84 Estim Creat Clear Calc 84.0 Estimated GFR > 60 POC Glucose Random Glucose 146 H Fasting Glucose Calcium 9.4 Total Bilirubin 0.6 Direct Bilirubin AST 46 H ALT 31 Alkaline Phosphatase 140 H Ammonia Total Protein 7.5 Albumin 3.4 L Valproic Acid DS: Summary Hospital Course Hospital Course: pt transferred from [facility] in [place].? per discharge paperwork she was BIBA to ED with c/o a fall on 08/04.? she was agitated and required haldol and ativan IM in the ED.? she was medically worked up and determined to be suffering from acute encephalopathy as well as acute respiratory failure from CHF exacerbation.? she was noted to be hyponatremic to as low as 119; hyponatremia was corrected during stay.? she had reported SI/HI at admission and had a sitter for most of her stay.? her psych regimen was continued as per prior.? the final 48 hours of her hospitalization she did not require a sitter.? she was followed by psychiatry during her stay and per 08/12 psych note she was no longer suicidal or homicidal and her delirium appeared to have improved substantially.? it was recommended to increase invega to 9 mg at HS, continue VPA 1000 mg BID, continue to offer hydroxyzine 50 TID PRN anxiety, discontinue sitter.? she was transferred to [facility] the following day.? on interview with MD at [facility], pt was calm and pleasant.? she answer MSE questions directly and cogently.? she tolerated only a brief interview, then informing MD she was finished and welcoming him to leave.? her only request appeared to be to switch to a different medication because she has been on the same medication for 50 years and it has stopped working.? she identified her target symptoms for this medication change as her being too emotional and that little things bother me. Past Psychiatric History: -Hx of multiple crisis evals since for med non- adherence, depression, disorganized thinking, and paranoia.? -Hx of multiple psych admissions; IPLOC 12/2020 at [facility], 10/2020 at [facility] -Hx of DMH services -Has OP psych services at [facility], psych provider is Jaz Lin -Hx of VNA services through [facility] -Past meds: haldol 10 mg BID, invega, risperdal consta 50 mg, risperdal up to 4 mg QHS, haldol dec (per paperwork from [facility] Psych consult, pt decompensated on haldol dec and was switched back to risperdal PO and risperdal consta), depakote (historically has done well with this), thorazine 100 mg QID PRN, wellbutrin SR 150 mg BID, clozaril 100 mg AM and 150 mg HS (2020, questionable adherence), ativan (good effect), zyprexa (says ?that gave me a heart attack?) -Hx of DMH -Hx of making homicidal statement and threats towards providers. Hx of paranoid delusions. Medical Evaluation Reviewed: Hospitalist Juanjose Pending HOSPITAL COURSE On the unit, pt was admitted on a CV and placed on 15 minutes checks for safety. Pt presented as somnolent and difficult to arouse at times. Her ammonia was over 100. Her depakote was discontinued. Outpatient psychiatrist may decide whether to restart depakote or not, preferable not at higher dose than 750mg po daily. Ammonia trending back to normal and pt was started on lactulose. Pt was continued on paliperidone 9mg po qhs (which was increased while pt was admitted to [facility]) and cogentin 1mg po qhs. Note that her estimated creatinine clearances is 84 and recommendation from pharmaceutical company is to adjust dose of paliperidone with creatinine clearance less than 80. On the day of discharge, pt presents as more alert. She reports she is looking f orward to go back home. She denies SI/HI. She denies auditory or visual hallucinations. No overt delusional content noted or reported. Pt is sleeping well. She does need to be encouraged to have fluids during the day and BUN elevated with no significant increase in creatinine mostly related to dehydration. Time spent discussing smoking cessation with patient: 3 to 10 minutes Status at Discharge Cognitive/behavioral status at discharge: Pt with brighter, non labile affect. No SI/HI. No VH/AH. No overt psychosis or delusions. Pt sleeping and eating but limited fluid intake. No signs of aggression towards self or others. Functional status at discharge: independent ambulation Overall status at discharge: patient is progressing back to baseline Time Spent with Patient Time attestation: Total time managing care of this patient today __30__ minutes. Time spent: Greater than 30 minutes Discharge Plan Discharge Anticipated Discharge Date/Time: 08/24/22 10:11 Patient Disposition: Home, Self-Care Discharge Diagnosis: Schizophrenia Referrals: Emma Siegel MD [facility] [Other] - 08/30/22 11:00 am (This is a 45 minute appointment and is in person at the office ) [facility] [Other] - 08/24/22 (VNA to resume twice a day medication management and diseases management services. ) Jaki Bishop MD [Primary Care Provider] - 1 Week ( for discharge summary. Request for appointment has been made and office to follow up with date and time. Request for kidney specialist referral from PCP made. ) Discharge Medications: New clonidine HCl 0.1 mg Tablet 0.1 mg PO DAILY Qty: 30 0RF Protocol: Hold for SBP< HOLD for SBP < : 90 carvedilol 3.125 mg Tablet 3.125 mg PO BID Qty: 60 0RF Protocol: Hold for SBP/HR < HOLD for SBP < : 90 HOLD for HR < : 60 Spiriva with HandiHaler 18 mcg Capsule, W/Inhalation Device 18 mcg inhalation RDAILY Qty: 30 0RF benztropine 1 mg tablet 1 mg PO BEDTIME Qty: 30 0RF insulin glargine [Lantus U-100 Insulin] 100 unit/mL Solution 6 unit subcut DAILY Qty: 10 0RF trazodone 50 mg Tablet 50 mg PO BEDTIME PRN (Reason: Insomnia) Qty: 30 0RF sennosides-docusate sodium [Senna Plus] 8.6-50 mg Tablet 1 tab PO BID PRN (Reason: Constipation) Qty: 60 0RF magnesium oxide 400 mg (241.3 mg magnesium) Tablet 400 mg PO DAILY Qty: 30 0RF furosemide 20 mg Tablet 20 mg PO DAILY Qty: 30 0RF Protocol: Hold for SBP< HOLD for SBP < : 90 paliperidone [Invega] 9 mg Tablet Extended Release 24 Hr 9 mg PO BEDTIME Qty: 30 0RF urea (bulk) 100 % Powder 15 ea PO BID Qty: 1 0RF Creon 24,000-76,000 -120,000 unit Capsule,Delayed Release(Dr/Ec) 1 cap PO TIDWM Qty: 90 0RF lactulose 20 gram/30 mL Solution 20 g PO TID Qty: 1200 0RF multivitamin [Daily-Kimberly] Tablet 1 tab PO DAILY Qty: 30 0RF folic acid 1 mg Tablet 1 mg PO DAILY Qty: 30 0RF insulin lispro [Humalog U-100 Insulin] 100 unit/mL Solution See Protocol subcut QIDACHS Qty: 10 0RF Protocol: Insulin Correction Scale Less than or equal to 110 ---- Give (units): 0 111 to 150 Give (units): 0 151 to 200 Give (units): 2 201 to 250 Give (units): 4 251 to 300 Give (units): 6 301 to 350 Give (units): 8 Greater than 350 Give (units): 10 Call MD if Blood Glucose > : 350 thiamine mononitrate (vit B1) 100 mg Tablet 100 mg PO DAILY Qty: 30 0RF Continued pantoprazole 40 mg tablet,delayed release (DR/EC) 1 tab PO DAILY Discontinued melatonin 3 mg tablet 1 tab PO BEDTIME PRN (Reason: insomnia) folic acid 1 mg tablet 1 tab PO DAILY insulin glargine [Lantus Solostar U-100 Insulin] 100 unit/mL (3 mL) insulin pen 6 unit subcut DAILY losartan 50 mg Tablet 50 mg PO DAILY Qty: 30 0RF Protocol: Hold for SBP< HOLD for SBP < : 90 clonidine HCl 0.1 mg Tablet 0.1 mg PO DAILY Qty: 30 0RF Protocol: Hold for SBP< HOLD for SBP < : 90 carvedilol 6.25 mg Tablet 6.25 mg PO BID Qty: 60 0RF Protocol: Hold for SBP/HR < HOLD for SBP < : 90 HOLD for HR < : 60 trazodone 50 mg Tablet 50 mg PO BEDTIME PRN (Reason: Insomnia) Qty: 30 0RF risperidone 2 mg Tablet 2 mg PO DAILY Qty: 30 0RF divalproex 500 mg Tablet Extended Release 24 Hr 500 mg PO BEDTIME Qty: 30 0RF nicotine 21 mg/24 hr Patch 24 Hour 21 mg transdermal DAILY Qty: 30 0RF loratadine 10 mg Tablet 10 mg PO DAILY Qty: 30 0RF divalproex 250 mg Tablet Extended Release 24 Hr 250 mg PO DAILY Qty: 30 0RF lactulose 20 gram/30 mL Solution 20 g PO BID Qty: 1200 0RF torsemide 20 mg Tablet 20 mg PO BIDWM Qty: 60 0RF Protocol: Hold for SBP< HOLD for SBP < : 90 magnesium oxide 400 mg (241.3 mg magnesium) Tablet 400 mg PO BIDPC Qty: 60 0RF Creon 24,000-76,000 -120,000 unit Capsule,Delayed Release(Dr/Ec) 1 cap PO TIDWM Qty: 90 0RF multivitamin [Daily-Kimberly] Tablet 1 tab PO DAILY 30 Days Qty: 30 0RF risperidone 2 mg tablet 3 mg PO BEDTIME guaifenesin [Danette-Tussin] 100 mg/5 mL Liquid 10 mg PO TID PRN (Reason: Cough) divalproex 500 mg Tablet,Delayed Release (Dr/Ec) 1,000 mg PO BID benztropine 0.5 mg Tablet 0.5 mg PO BID paliperidone 6 mg PO BEDTIME urea 15 gram Powder In Packet 15 packet PO BID insulin lispro 1 units subcut TID magnesium oxide 400 mg PO DAILY tiotropium bromide 2.5 mcg/actuation Mist 2 puff INHALATION DAILY Discharge Orders: Discharge Order (Routine); Ordered 08/24/22 Ordered By: Aubree Krishnamurthy Diet: Diabetic diet Activity on Discharge: As tolerated Stand Alone Forms: Patient Portal Discharge page Care Plan Goals: 1. Maintain mood 2. No SI/HI 3. No overt psychosis or delusions Health Concerns: Follow up with PCP Plan of Treatment: 1. Take medications as prescribed 2. Go to nearest ED or call 911 in event of emergency Assessment: Pt with brighter affect, non labile. No overt psychosis or delusional content noted or reported. No SI/HI. no signs of aggression towards self or others.
--- NOTE | 2022-08-24 11:05 | PC.NURSE ---
Resident expressing readiness for discharge today. Was medication and meal compliant today. NO SI, HI or Perceptual Disturbances. All discharge instructions reviewed and understood by patient. Follow up appointments scheduled. Resident discharged with all belongings.
[2022-08-24 11:44] LABS: Glucose, Whole Blood 170 mg/dL (60-115)
[2022-08-24 11:54] LABS: Gamma Glutamyl Transpeptidase 359 U/L (7-33)
[2022-08-24] MEDS: Insulin Lispro 100 UNIT/ML 3 ML VIAL SUBCUT (12:16)
== END 2022-08-24 12:54 | disposition home or self-care (01) | DRG 750 ==
PROVIDERS: Physician Assistant; Psychiatry & Neurology Psychiatry; Social Worker; Admitting Provider Psychiatry & Neurology Psychiatry; PCP Pediatrics; Visit Provider Psychiatry & Neurology Psychiatry
DX: F20.9 Schizophrenia, unspecified (principal); I11.0 Hypertensive heart disease with heart failure; E87.1 Hypo-osmolality and hyponatremia; I50.32 Chronic diastolic (congestive) heart failure; E11.9 Type 2 diabetes mellitus without complications; F17.210 Nicotine dependence, cigarettes, uncomplicated; Z71.6 Tobacco abuse counseling; K59.09 Other constipation; K86.1 Other chronic pancreatitis; Z79.4 Long term (current) use of insulin; Z87.891 Personal history of nicotine dependence; Z79.899 Other long term (current) drug therapy
CPT/HCPCS: 36415; 80048; 80053; 80076; 80164; 82140; 82607; 82746; 82947; 82977; 84439; 84443; 85025

== ENCOUNTER 2022-12-16 19:54 | Inpatient (IN) | payer OTHER, SELFPAY ==
[2022-12-16 19:59] VITALS: BMI 31.1
[2022-12-16 20:10] VITALS: BP 140/81; PULSE 96; RESP 18; TEMP 36.4; O2SAT 93
--- NOTE | 2022-12-16 22:33 | PC.ADMIT ---
PT is a 57 year old maltese speaking cisgender black female that arrived on this unit at 20:02 via stretcher as a direct admit from [facility] and was placed on 15 minute safety checks. Admission done from assessments as pt was unable to participate in admission process due to mental status. When asked what brought her to the hospital pt stated my mother breastfed me. PT was initially brought to [facility] due to SI after a family member called 911 due to her making SI statements and waving a knife. PT was found to be hypoxic upon arrival at 79% on RA. PT was medically hospitalized and the hypoxia has since resolved. PT has a hx of schizophrenia and chronic medical history including CHF (latest echo showed EF of 55-60%), type II diabetes, hypertension, hypoxia, and hyperlipidemia. PT has a hx of med non compliance and has had a multitude of psychiatric admissions. Per assessment, pt does live independently in the community. Tox screen + for cocaine and fentanyl, ekg completed EKG QT 374 QTC 503, CXR showed pulmonary vascular congestion. COVID neg. PT was put on a 1500 ml fluid restriction and is being weighed daily to assess for fluid overload. PT denies SI/HI AH/VH, oriented to unit. PT unable to consent to flu shot due to mental status and also has egg allergy. PT is a former smoker per assessment and has not smoked in the last 30 days so will not need smoking cessation consultation.
--- NOTE | 2022-12-16 23:03 | PC.NURSE ---
Skin check completed with JOHN Stern. No contraband found, all skin intact.
--- NOTE | 2022-12-16 23:05 | PC.NURSE ---
PT unable to consent to flu vaccine due to mental status. PT reports she has not smoked in the last 30 days.
[2022-12-17 06:00] VITALS: BP 123/76; PULSE 91; RESP 18; TEMP 36.1; O2SAT 93
--- NOTE | 2022-12-17 08:44 | PC.NURSE ---
Pt refused all medication as well as POC's
[2022-12-17 09:22] LABS: Estimated Average Glucose 140 mg/dL; Hemoglobin A1c % 6.5 % (<6.0)
[2022-12-17 09:29] LABS: Cholesterol 269 mg/dL (<200); HDL Cholesterol 75 mg/dL (>40); LDL Cholesterol Calculated 164 mg/dL (<100); Triglycerides 150 mg/dL (<150)
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
--- NOTE | 2022-12-17 11:40 | HO.PM.IMCN ---
History of Present Illness Data of Consult Service Date: 12/17/22 Primary Care Provider: Unknown Physician HPI Reason for consult: Admission H&P Pt is a 57-year-old female with a PMH significant for?insulin-dependent type 2 diabetes, HFpEF, chronic pancreatitis, HTN, chronic constipation, SBP, hyperammonemia encephalopathy, and schizophrenia/bipolar disorder who is admitted to [facility] psychiatry unit for disorganized thought and SI with plan to harm herself with a knife. Patient initially presented to [facility] on 12/09/2022 and was found to be hypoxic, satting at 79% RA. Patient was placed on supplemental O2 NC but soon weaned off within two days. Patient was treated for hyponatremia, hypomagnesemia, and CHF likely secondary to medication noncompliance. Medical consult for admission H&P. ?Patient is alert and oriented to self only, displaying disorganized thought, often speaking nonsensically, and not answering appropriately. Patient is not capable of providing accurate HPI. Review of Systems Review of Systems: Unable to obtain due to patient's mentation [facility] Medical History Schizophrenia, paranoid type Steatohepatitis Class 2 obesity Pulmonary arterial hypertension Chronic pancreatitis Dyshidrotic eczema Diabetes Cirrhosis of liver Chronic low back pain CKD (chronic kidney disease) Biventricular heart failure Asthma Anemia Surgical History History of splenectomy Hx of cholecystectomy Social History Household Members: Unknown / Unable to assess Housing: Unknown / Unable to assess Housing Other:: Lives in section 8 housing in an apartment Do you presently have visiting nurse or other home services: No Unable to assess alcohol history related to: Unknown Patient Tobacco Use Status: Former Tobacco user Tobacco use type: Cigarette Cigarette Packs Per Day: 0.25 Cigarettes Per Day: 5.0 Years Smoked: 40 Smoked in Last 30 Days: No e-Cigarette/Vaping Use: Never Used Second Hand Smoke Exposure: No Use of substances other than those prescribed or required for medical reasons: Unable to respond Substance Use Type: Crack/Cocaine, Opiates and Prescription Drugs Currently Displaying Signs/Symptoms of Drug Intoxication Withdrawal: No Advance Directives: Yes Advance Directives on File: Yes Advance Directives Date on File: 11/25/21 Do you have thoughts of harming others: None Do you have a plan to hurt others: No Plan Recently lost weight without trying: No Nutrition Risks: No Nutritional Risk Patient : No : No Poor oral hygiene: No service: No Sexual orientation: Straight/Heterosexual Meds Allergies Allergy/AdvReac Type Severity Reaction Status Date / Time olanzapine [From Zyprexa] Allergy Unknown Verified 09/03/21 14:49 prednisone Allergy Unknown Verified 09/03/21 14:49 NSAIDS (Non-Steroidal AdvReac Mild Abdominal Verified 09/03/21 14:49 Anti-Inflamma Pain egg AdvReac Gastrointestinal Verified 12/16/22 16:32 Upset Active Medications: Current Medications Acetaminophen (Acetaminophen 325 Mg Tablet) 650 mg PO Q6H PRN PRN Reason: Headache/Pain Mild Scale (1-3) Al Hydroxide/Mg Hydroxide (Magnesium Hydrox/Alum Hydrox 30 Ml Oral.Susp) 30 ml PO Q6H PRN PRN Reason: Heartburn/Nausea Lipase/Protease/Amylase (Lipase/Prot/Amylase 12/38/60k Capsule.Dr) 1 cap PO TIDWM [facility] Last Admin: 12/17/22 08:43 Dose: Not Given Carvedilol (Carvedilol 3.125 Mg Tablet) 3.125 mg PO BID [facility]; Protocol Last Admin: 12/17/22 08:43 Dose: Not Given Clonidine HCl (Clonidine Hcl 0.1 Mg Tablet) 0.1 mg PO DAILY [facility]; Protocol Last Admin: 12/17/22 08:43 Dose: Not Given Folic Acid (Folic Acid 1 Mg Tablet) 1 mg PO DAILY [facility] Last Admin: 12/17/22 08:43 Dose: Not Given Furosemide (Furosemide 40 Mg Tablet) 40 mg PO BID@0700,1500 [facility]; Protocol Last Admin: 12/17/22 08:43 Dose: Not Given Glucose (Glucose Gel 15 Gm Gel..Gram.) 15 gm PO Q15M PRN PRN Reason: per Hypoglycemia Standing Ord. Insulin Glargine (Insulin Glargine,Hum.Rec.Anlog 100 Unit/Ml 10 Ml Vial) 6 unit SUBCUT DAILY [facility] Last Admin: 12/17/22 08:25 Dose: Not Given Insulin Human Lispro (Insulin Lispro 100 Unit/Ml 3 Ml Vial) 0 unit SUBCUT QIDACHS [facility]; Protocol Last Admin: 12/17/22 11:09 Dose: Not Given Lactulose (Lactulose 20 Gm/30 Ml Solution) 20 gm PO BID [facility] Last Admin: 12/17/22 08:43 Dose: Not Given Magnesium Hydroxide (Milk Of Magnesia 30 Ml Oral.Susp) 30 ml PO DAILY PRN PRN Reason: Constipation Magnesium Oxide (Magnesium Oxide 400 Mg Tablet) 400 mg PO BID [facility] Last Admin: 12/17/22 08:43 Dose: Not Given Multivitamins/Vitamin C (Multivitamin Tablet) 1 tab PO DAILY [facility] Last Admin: 12/17/22 08:43 Dose: Not Given Omeprazole (Omeprazole 20 Mg Capsule.Dr) 20 mg PO DAILY@0630 [facility] Last Admin: 12/17/22 06:13 Dose: Not Given Risperidone (Risperidone 3 Mg Tablet) 3 mg PO BID [facility] Senna/Docusate Sodium (Sennosides/Docusate Sodium Tablet) 1 tab PO BID PRN PRN Reason: Constipation Thiamine HCl (Thiamine Hcl 100 Mg Tablet) 100 mg PO DAILY [facility] Last Admin: 12/17/22 08:43 Dose: Not Given Tiotropium [place] (Tiotropium [place] 2.5 Mcg Inhaler) 2 puff INHALE DAILY [facility] Last Admin: 12/17/22 08:44 Dose: Not Given Home Medications Medication Instructions Recorded Confirmed Last Taken Type pantoprazole 40 mg tablet,delayed 1 tab PO DAILY 10/28/21 12/16/22 12/16/22 09:00 History release furosemide 20 mg tablet 40 mg PO BID 12/16/22 12/16/22 12/16/22 15:00 History lactulose 20 gram/30 mL oral 20 g PO BID 12/16/22 12/16/22 12/16/22 09:00 History solution [id number] 1 cap PO TID 12/16/22 12/16/22 Unknown History 12,000-38,000-60,000 unit capsule,delayed rel (Creon) magnesium oxide 400 mg (241.3 mg 400 mg PO BID 12/16/22 12/16/22 12/16/22 09:00 History magnesium) tablet risperidone 2 mg tablet 4 mg PO BID 12/16/22 12/16/22 12/16/22 09:00 History tiotropium bromide 2.5 2 puff inhalation DAILY 12/16/22 12/16/22 Unknown History mcg/actuation mist for inhalation (Spiriva Respimat) trazodone 50 mg tablet 50 mg PO BEDTIME PRN Insomnia 12/16/22 12/16/22 Unknown History Physical Exam Vital Signs and Narrative: Vital Signs: Last Vital Signs Temp 96.9 F 12/17/22 06:00 Pulse 91 12/17/22 06:00 Resp 18 12/17/22 06:00 BP 123/76 12/17/22 06:00 Pulse Ox 93 12/17/22 06:00 O2 Del Method Room Air 12/17/22 06:00 BMI result Body Mass Index 31.1 General: AOx1, speaking nonsensically, not answering appropriately, no acute distress Resp: CTA bilaterally CVS: S1, S2, RRR GI: +BS, NT, no distention Skin: Warm, dry Neuro: Cranial nerves II-XII grossly intact bilaterally. Motor grossly intact bilaterally Extremities: No edema Psych: Disorganized thought Results Labs Labs: Laboratory Results - last 24 hr 12/17/22 08:34 Estimat Average Glucose 140 Hemoglobin A1c % 6.5 H Triglycerides 150 H Cholesterol 269 H LDL Cholesterol, Calc 164 H HDL Cholesterol 75 Assessment and Plan (1) Medical clearance for psychiatric admission: Status: Acute Plan Pt is a 57-year-old female with a PMH significant for?insulin-dependent type 2 diabetes, HFpEF, chronic pancreatitis, HTN, chronic constipation, SBP, hyperammonemia encephalopathy, and schizophrenia/bipolar disorder who is admitted to [facility] psychiatry unit for disorganized thought and SI with plan to harm herself with a knife. Mood disorder Plan as per Psychiatry HFpEF No acute exacerbation Was treated prior to transfer at [facility] with IV diuretics, currently euvolemic Continue home furosemide Insulin-dependent diabetes type 2 Continue basal insulin, sliding scale insulin Diabetic diet Chronic pancreatitis Continue Creon Chronic constipation Continue lactulose HTN Reasonably controlled on current therapies Continue home meds Thank you for allowing us to participate in the care of this patient. Signing off at this time. Please let us know if there are any acute complaints or questions. Time Spent With Patient Time: Total time managing care of this patient today ____ minutes.
[2022-12-17] MEDS: Lipase/Prot/Amylase 12/38/60K CAPSULE.DR 1 CAP PO ×2 (12:50→17:19)
[2022-12-17 17:13] VITALS: BP 160/86; PULSE 95; TEMP 36.1; O2SAT 94
[2022-12-17 20:38] LABS: Glucose, Whole Blood 155 mg/dL (60-115)
[2022-12-17] MEDS: carvediloL 3.125 MG TABLET PO (20:38)
[2022-12-17] MEDS: Insulin Lispro 100 UNIT/ML 3 ML VIAL SUBCUT (21:17)
[2022-12-17] MEDS: risperiDONE 3 MG TABLET PO (21:34)
[2022-12-17] MEDS: Magnesium Oxide 400 MG TABLET PO (21:34)
[2022-12-17] MEDS: Acetaminophen 325 MG TABLET 650 MG PO (21:51)
[2022-12-18] MEDS: Nicotine Polacrilex 2 MG GUM BUCCAL ×3 (03:23→17:35)
[2022-12-18] MEDS: Acetaminophen 325 MG TABLET 650 MG PO ×2 (03:50→20:04)
[2022-12-18] MEDS: Omeprazole 20 MG CAPSULE.DR PO (05:48)
[2022-12-18 08:18] LABS: Glucose, Whole Blood 172 mg/dL (60-115)
[2022-12-18 08:42] VITALS: BP 156/82; PULSE 96; RESP 16; TEMP 36.7; O2SAT 95
[2022-12-18] MEDS: Lipase/Prot/Amylase 12/38/60K CAPSULE.DR 1 CAP PO ×2 (09:15→12:39)
[2022-12-18] MEDS: Furosemide 40 MG TABLET PO ×2 (09:15→14:59)
[2022-12-18] MEDS: carvediloL 3.125 MG TABLET PO ×2 (09:15→20:04)
[2022-12-18] MEDS: Magnesium Oxide 400 MG TABLET PO ×2 (09:15→20:04)
[2022-12-18] MEDS: Thiamine HCL 100 MG TABLET PO (09:15)
[2022-12-18] MEDS: Multivitamin TABLET 1 TAB PO (09:15)
[2022-12-18] MEDS: risperiDONE 3 MG TABLET PO ×2 (09:15→20:05)
[2022-12-18] MEDS: Insulin Lispro 100 UNIT/ML 3 ML VIAL SUBCUT ×3 (09:16→20:04)
[2022-12-18] MEDS: Folic Acid 1 MG TABLET PO (09:16)
[2022-12-18] MEDS: cloNIDine HCL 0.1 MG TABLET PO (09:16)
[2022-12-18] MEDS: Lactulose 20 GM/30 ML SOLUTION PO (09:16)
[2022-12-18] MEDS: Insulin Glargine,Hum.rec.anlog 100 UNIT/ML 10 ML VIAL 6 UNIT SUBCUT (09:16)
--- NOTE | 2022-12-18 11:49 | P.PNPSI_ITS ---
Subjective Subjective Date of Service: 12/18/22 Reason For Visit: schizoaffective disorder Subjective Notes: Conditional Voluntary Interim History: Pt presents as very tearful and dysphoric. She reports staff is stealing from her and she does not feel safe here on the unit. She asks this commercial lines underwriter if she can stay with me all day as she does not feel safe. She denies SI/HI. She was offered medications, antipsychotic and ativan with good effect. pt slept through the night. Diagnostics Vital Signs (24Hr): Vital Signs - 24 hr 12/17/22 17:13 12/18/22 08:42 Temperature 96.9 F 98.1 F Pulse Rate 95 96 Respiratory Rate 16 Blood Pressure 160/86 H 156/82 H Pulse Oximetry 94 95 Oxygen Delivery Method Room Air Room Air BMI result Body Mass Index 31.1 Labs Labs: Laboratory Results - last 48 hr 12/17/22 12/17/22 12/18/22 08:34 20:33 08:14 POC Glucose 155 H 172 H Estimat Average Glucose 140 Hemoglobin A1c % 6.5 H Triglycerides 150 H Cholesterol 269 H LDL Cholesterol, Calc 164 H HDL Cholesterol 75 Medications Medications Current Medications Acetaminophen (Acetaminophen 325 Mg Tablet) 650 mg PO Q6H PRN PRN Reason: Headache/Pain Mild Scale (1-3) Last Admin: 12/18/22 03:50 Dose: 650 mg Al Hydroxide/Mg Hydroxide (Magnesium Hydrox/Alum Hydrox 30 Ml Oral.Susp) 30 ml PO Q6H PRN PRN Reason: Heartburn/Nausea Lipase/Protease/Amylase (Lipase/Prot/Amylase 12/38/60k Capsule.) 1 cap PO TIDWM [facility] Last Admin: 12/18/22 09:15 Dose: 1 cap Carvedilol (Carvedilol 3.125 Mg Tablet) 3.125 mg PO BID [facility]; Protocol Last Admin: 12/18/22 09:15 Dose: 3.125 mg Clonidine HCl (Clonidine Hcl 0.1 Mg Tablet) 0.1 mg PO DAILY [facility]; Protocol Last Admin: 12/18/22 09:16 Dose: 0.1 mg Folic Acid (Folic Acid 1 Mg Tablet) 1 mg PO DAILY [facility] Last Admin: 12/18/22 09:16 Dose: 1 mg Furosemide (Furosemide 40 Mg Tablet) 40 mg PO BID@0700,1500 [facility]; Protocol Last Admin: 12/18/22 09:15 Dose: 40 mg Glucose (Glucose Gel 15 Gm Gel..Gram.) 15 gm PO Q15M PRN PRN Reason: per Hypoglycemia Standing Ord. Insulin Glargine (Insulin Glargine,Hum.Rec.Anlog 100 Unit/Ml 10 Ml Vial) 6 unit SUBCUT DAILY [facility] Last Admin: 12/18/22 09:16 Dose: 6 unit Insulin Human Lispro (Insulin Lispro 100 Unit/Ml 3 Ml Vial) 0 unit SUBCUT QIDACHS [facility]; Protocol Last Admin: 12/18/22 09:16 Dose: 2 unit Lactulose (Lactulose 20 Gm/30 Ml Solution) 20 gm PO BID [facility] Last Admin: 12/18/22 09:16 Dose: 20 gm Magnesium Hydroxide (Milk Of Magnesia 30 Ml Oral.Susp) 30 ml PO DAILY PRN PRN Reason: Constipation Magnesium Oxide (Magnesium Oxide 400 Mg Tablet) 400 mg PO BID [facility] Last Admin: 12/18/22 09:15 Dose: 400 mg Multivitamins/Vitamin C (Multivitamin Tablet) 1 tab PO DAILY [facility] Last Admin: 12/18/22 09:15 Dose: 1 tab Nicotine Polacrilex (Nicotine Polacrilex 2 Mg Gum) 2 mg BUCCAL Q2H PRN PRN Reason: Nicotine Cravings Last Admin: 12/18/22 05:52 Dose: 2 mg Omeprazole (Omeprazole 20 Mg Capsule.Dr) 20 mg PO DAILY@0630 [facility] Last Admin: 12/18/22 05:48 Dose: 20 mg Risperidone (Risperidone 3 Mg Tablet) 3 mg PO BID [facility] Last Admin: 12/18/22 09:15 Dose: 3 mg Senna/Docusate Sodium (Sennosides/Docusate Sodium Tablet) 1 tab PO BID PRN PRN Reason: Constipation Thiamine HCl (Thiamine Hcl 100 Mg Tablet) 100 mg PO DAILY [facility] Last Admin: 12/18/22 09:15 Dose: 100 mg Tiotropium [place] (Tiotropium [place] 2.5 Mcg Inhaler) 2 puff INHALE DAILY [facility] Last Admin: 12/18/22 09:16 Dose: 2 puff Allergies Allergies Allergy/AdvReac Type Severity Reaction Status Date / Time olanzapine [From Zyprexa] Allergy Unknown Verified 09/03/21 14:49 prednisone Allergy Unknown Verified 09/03/21 14:49 NSAIDS (Non-Steroidal AdvReac Mild Abdominal Verified 09/03/21 14:49 Anti-Inflamma Pain egg AdvReac Gastrointestinal Verified 12/16/22 16:32 Upset Assessment & Plan Assessment & Plan (1) Schizoaffective disorder, bipolar type without good prognostic features: Status: Acute Code(s): F25.0 - Schizoaffective disorder, bipolar type (2) Diabetes: Status: Acute Code(s): E11.9 - Type 2 diabetes mellitus without complications (3) Hypertension: Status: Acute Code(s): I10 - Essential (primary) hypertension Plan [facility] in the context of gross paranoia and thought disorganization and reported recent thoughts of self-harm which he is now denying. She is admitted on a voluntary basis will get medical hospital consult history of diabetes CHF hypertension reported recent hypoxia chf Patient unable to give clear history safe when get history from [facility]NA case management. Patient will for boyfriend also lives in the house in a separate apartment Continue Risperdal for nail consider change to Invega a clear what patient has most recently been on. Patient has been manic in the past 12/18 continue tx. Reason for continued inpatient stay Substantial Risk for: inability to function Time Spent With Patient Time: Total time managing care of this patient today ____ minutes.
[2022-12-18 12:27] LABS: Glucose, Whole Blood 217 mg/dL (60-115)
[2022-12-18] MEDS: LORazepam 1 MG TABLET PO (13:36)
[2022-12-18 19:30] VITALS: BP 107/61; PULSE 96; RESP 16; TEMP 35.9; O2SAT 100
[2022-12-18 20:25] LABS: Glucose, Whole Blood 264 mg/dL (60-115)
[2022-12-19] MEDS: Omeprazole 20 MG CAPSULE.DR PO (05:57)
[2022-12-19 08:00] VITALS: BMI 29.9
[2022-12-19 08:41] LABS: Glucose, Whole Blood 208 mg/dL (60-115)
[2022-12-19] MEDS: carvediloL 3.125 MG TABLET PO ×2 (09:17→20:08)
[2022-12-19] MEDS: Magnesium Oxide 400 MG TABLET PO ×2 (09:17→20:08)
[2022-12-19] MEDS: Lipase/Prot/Amylase 12/38/60K CAPSULE.DR 1 CAP PO ×2 (09:17→12:56)
[2022-12-19] MEDS: Thiamine HCL 100 MG TABLET PO (09:17)
[2022-12-19] MEDS: Multivitamin TABLET 1 TAB PO (09:17)
[2022-12-19] MEDS: Folic Acid 1 MG TABLET PO (09:17)
[2022-12-19] MEDS: cloNIDine HCL 0.1 MG TABLET PO (09:18)
[2022-12-19] MEDS: risperiDONE 3 MG TABLET PO ×2 (09:18→20:08)
[2022-12-19] MEDS: Furosemide 40 MG TABLET PO ×2 (09:18→16:01)
[2022-12-19] MEDS: Insulin Lispro 100 UNIT/ML 3 ML VIAL SUBCUT ×3 (09:19→20:08)
[2022-12-19] MEDS: Insulin Glargine,Hum.rec.anlog 100 UNIT/ML 10 ML VIAL 6 UNIT SUBCUT (09:19)
[2022-12-19 09:22] VITALS: BP 133/92; PULSE 98; RESP 16; TEMP 36.6; O2SAT 91
[2022-12-19 12:46] LABS: Glucose, Whole Blood 232 mg/dL (60-115)
[2022-12-19 17:17] LABS: Glucose, Whole Blood 130 mg/dL (60-115)
--- NOTE | 2022-12-19 19:26 | HO.PSYCHPN ---
Subjective Subjective Date of Service: 12/19/22 Reason For Visit: schizoaffective disorder Subjective Notes: Conditional Voluntary Interim History: Pt presents as calmer, less paranoid and fearful today. She states she is feeling better. She denies SI/HI. no VH/AH. Pt slept through the night. Taking medications as prescribed. Review of Systems Review of Systems Unable to obtain due to patient's mentation Mental Status Exam Mental Status Exam Narrative: Patient did state that she wanted to be in the hospital knew she needed help. She was somewhat disheveled anxious in appearance. The patient is disorganized focused on paranoid concerns in a somewhat pressured speech with paranoid themes. The patient the mood is anxious and dysphoric denies active self-harm denies harm toward others. Occult he taking in information insight judgment impaired present impulse control seems intact Diagnostics Vital Signs (24Hr): Vital Signs - 24 hr 12/18/22 19:30 12/19/22 09:22 Temperature 96.7 F L 97.9 F Pulse Rate 96 98 Respiratory Rate 16 16 Blood Pressure 107/61 133/92 H Pulse Oximetry 100 91 L Oxygen Delivery Method Room Air Room Air BMI result Body Mass Index 29.9 Labs Labs: Laboratory Results - last 48 hr 12/17/22 12/18/22 12/18/22 20:33 08:14 12:23 POC Glucose 155 H 172 H 217 H 12/18/22 12/19/22 12/19/22 19:38 08:37 12:41 POC Glucose 264 H 208 H 232 H 12/19/22 17:12 POC Glucose 130 H Medications Medications Current Medications Acetaminophen (Acetaminophen 325 Mg Tablet) 650 mg PO Q6H PRN PRN Reason: Headache/Pain Mild Scale (1-3) Last Admin: 12/18/22 20:04 Dose: 650 mg Al Hydroxide/Mg Hydroxide (Magnesium Hydrox/Alum Hydrox 30 Ml Oral.Susp) 30 ml PO Q6H PRN PRN Reason: Heartburn/Nausea Lipase/Protease/Amylase (Lipase/Prot/Amylase /60k Capsule.) 1 cap PO TIDWM [facility] Last Admin: 12/19/22 17:00 Dose: Not Given Carvedilol (Carvedilol 3.125 Mg Tablet) 3.125 mg PO BID [facility]; Protocol Last Admin: 12/19/22 09:17 Dose: 3.125 mg Clonidine HCl (Clonidine Hcl 0.1 Mg Tablet) 0.1 mg PO DAILY [facility]; Protocol Last Admin: 12/19/22 09:18 Dose: 0.1 mg Folic Acid (Folic Acid 1 Mg Tablet) 1 mg PO DAILY [facility] Last Admin: 12/19/22 09:17 Dose: 1 mg Furosemide (Furosemide 40 Mg Tablet) 40 mg PO BID@0700,1500 [facility]; Protocol Last Admin: 12/19/22 16:01 Dose: 40 mg Glucose (Glucose Gel 15 Gm Gel..Gram.) 15 gm PO Q15M PRN PRN Reason: per Hypoglycemia Standing Ord. Haloperidol (Haloperidol 5 Mg Tablet) 2.5 mg PO Q8H PRN PRN Reason: agitation Insulin Glargine (Insulin Glargine,Hum.Rec.Anlog 100 Unit/Ml 10 Ml Vial) 6 unit SUBCUT DAILY [facility] Last Admin: 12/19/22 09:19 Dose: 6 unit Insulin Human Lispro (Insulin Lispro 100 Unit/Ml 3 Ml Vial) 0 unit SUBCUT QIDACHS [facility]; Protocol Last Admin: 12/19/22 18:42 Dose: Not Given Lactulose (Lactulose 20 Gm/30 Ml Solution) 20 gm PO BID [facility] Last Admin: 12/19/22 09:21 Dose: Not Given Magnesium Hydroxide (Milk Of Magnesia 30 Ml Oral.Susp) 30 ml PO DAILY PRN PRN Reason: Constipation Magnesium Oxide (Magnesium Oxide 400 Mg Tablet) 400 mg PO BID [facility] Last Admin: 12/19/22 09:17 Dose: 400 mg Multivitamins/Vitamin C (Multivitamin Tablet) 1 tab PO DAILY [facility] Last Admin: 12/19/22 09:17 Dose: 1 tab Nicotine Polacrilex (Nicotine Polacrilex 2 Mg Gum) 2 mg BUCCAL Q2H PRN PRN Reason: Nicotine Cravings Last Admin: 12/18/22 17:35 Dose: 2 mg Omeprazole (Omeprazole 20 Mg Capsule.Dr) 20 mg PO DAILY@0630 [facility] Last Admin: 12/19/22 05:57 Dose: 20 mg Risperidone (Risperidone 3 Mg Tablet) 3 mg PO BID [facility] Last Admin: 12/19/22 09:18 Dose: 3 mg Senna/Docusate Sodium (Sennosides/Docusate Sodium Tablet) 1 tab PO BID PRN PRN Reason: Constipation Thiamine HCl (Thiamine Hcl 100 Mg Tablet) 100 mg PO DAILY [facility] Last Admin: 12/19/22 09:17 Dose: 100 mg Tiotropium [place] (Tiotropium [place] 2.5 Mcg Inhaler) 2 puff INHALE DAILY [facility] Last Admin: 12/19/22 09:19 Dose: 2 puff Allergies Allergies Allergy/AdvReac Type Severity Reaction Status Date / Time olanzapine [From Zyprexa] Allergy Unknown Verified 09/03/21 14:49 prednisone Allergy Unknown Verified 09/03/21 14:49 NSAIDS (Non-Steroidal AdvReac Mild Abdominal Verified 09/03/21 14:49 Anti-Inflamma Pain egg AdvReac Gastrointestinal Verified 12/16/22 16:32 Upset Assessment & Plan Assessment & Plan (1) Schizoaffective disorder, bipolar type without good prognostic features: Status: Acute Code(s): F25.0 - Schizoaffective disorder, bipolar type (2) Diabetes: Status: Acute Code(s): E11.9 - Type 2 diabetes mellitus without complications (3) Hypertension: Status: Acute Code(s): I10 - Essential (primary) hypertension Plan [facility] in the context of gross paranoia and thought disorganization and reported recent thoughts of self-harm which he is now denying. She is admitted on a voluntary basis will get medical hospital consult history of diabetes CHF hypertension reported recent hypoxia chf Patient unable to give clear history safe when get history from [facility] case management. Patient will for boyfriend also lives in the house in a separate apartment Continue Risperdal for nail consider change to Invega a clear what patient has most recently been on. Patient has been manic in the past 12/18 continue tx. 12/19 continue tx. Reason for continued inpatient stay Substantial Risk for: inability to function Time Spent With Patient Time: Total time managing care of this patient today ____ minutes.
[2022-12-19 19:55] LABS: Glucose, Whole Blood 239 mg/dL (60-115)
[2022-12-19 20:07] VITALS: BP 134/86; PULSE 86; RESP 16; TEMP 37; O2SAT 92
[2022-12-19] MEDS: Nicotine Polacrilex 2 MG GUM BUCCAL (20:16)
[2022-12-20] MEDS: Omeprazole 20 MG CAPSULE.DR PO (05:47)
[2022-12-20 08:00] VITALS: BP 134/75; PULSE 106; RESP 16; TEMP 36.1; O2SAT 92; BMI 29.4
[2022-12-20 08:41] LABS: Glucose, Whole Blood 194 mg/dL (60-115)
[2022-12-20] MEDS: Insulin Lispro 100 UNIT/ML 3 ML VIAL SUBCUT ×2 (08:53→12:33)
[2022-12-20] MEDS: Insulin Glargine,Hum.rec.anlog 100 UNIT/ML 10 ML VIAL 6 UNIT SUBCUT (08:54)
[2022-12-20] MEDS: Multivitamin TABLET 1 TAB PO (08:56)
[2022-12-20] MEDS: Thiamine HCL 100 MG TABLET PO (08:56)
[2022-12-20] MEDS: cloNIDine HCL 0.1 MG TABLET PO (08:56)
[2022-12-20] MEDS: Folic Acid 1 MG TABLET PO (08:56)
[2022-12-20] MEDS: Magnesium Oxide 400 MG TABLET PO (08:56)
[2022-12-20] MEDS: carvediloL 3.125 MG TABLET PO (08:56)
[2022-12-20] MEDS: Furosemide 40 MG TABLET PO ×2 (08:56→14:36)
[2022-12-20] MEDS: risperiDONE 3 MG TABLET PO (08:56)
[2022-12-20] MEDS: Nicotine Polacrilex 2 MG GUM BUCCAL (08:56)
[2022-12-20] MEDS: Lipase/Prot/Amylase 12/38/60K CAPSULE.DR 1 CAP PO ×3 (08:56→17:22)
[2022-12-20] MEDS: Lactulose 20 GM/30 ML SOLUTION PO (08:58)
[2022-12-20 11:27] LABS: Glucose, Whole Blood 255 mg/dL (60-115)
[2022-12-20 17:06] LABS: Glucose, Whole Blood 141 mg/dL (60-115)
[2022-12-20 17:13] VITALS: BP 134/88; PULSE 89; RESP 16; TEMP 35.9; O2SAT 96
--- NOTE | 2022-12-20 18:26 | HO.PSYCHPN ---
Subjective Subjective Date of Service: 12/20/22 Reason For Visit: schizoaffective disorder Subjective Notes: Conditional Voluntary and 3 Day Healthcare Proxy: No Guardianship: No Medical Problems Affecting Mental Status: No Interim History: Pt asking to discharge. Social in milieu with peers Not fully compliant with medications Denies current symptoms, reports proper sleep, however, expressed that she was related to [place] [address] . Pt has several community connections. She has worked with her [facility] for over 20 years she reports and is considering not returning to them. Discussed with pt we will need to assess medicine compliance to continue to discuss discharge as we have concern she will decline when at home if she is off of her medications. Medication Compliance: Intermittent Side effects from medications: No Attending Groups: Intermittent Review of Systems Acute medical concerns: No Medical Review of Systems: unchanged Mental Status Exam Mental Status Exam Patient Appearance: Appropriate Patient Orientation: Person, Place, Time and Situation Level of Consciousness: Alert Patient Behavior: Talkative and Good Eye Contact Mood Description: Cheerful Affect Description: Constricted Patient Cognition Impaired: No Ability to Follow Directions: Good Speech Pattern: Spontaneous Speech Memory Description: Episodic Impaired Hallucinations: None (denies) Delusions: Paranoid Ideation, Grandiose and Present Thought Process: Distracted Thought Content: positive for [place], positive for Circumstantial, positive for Goal Oriented, positive for Loose Associations (mild), positive for Tangential, positive for Suicidal Ideation (denies) and positive for Homicidal Ideation (denies) Abnormal Motor Activity Signs and Symptoms: Restlessness Judgement: Good Diagnostics Vital Signs (24Hr): Vital Signs - 24 hr 12/19/22 20:07 12/20/22 08:00 12/20/22 17:13 Temperature 98.6 F 96.9 F 96.7 F L Pulse Rate 86 106 H 89 Respiratory Rate 16 16 16 Blood Pressure 134/86 134/75 134/88 Pulse Oximetry 92 92 96 Oxygen Delivery Method Room Air Room Air Room Air BMI result Body Mass Index 29.4 Labs Labs: Laboratory Results - last 48 hr 12/18/22 12/19/22 12/19/22 19:38 08:37 12:41 POC Glucose 264 H 208 H 232 H 12/19/22 12/19/22 12/20/22 17:12 19:50 08:37 POC Glucose 130 H 239 H 194 H 12/20/22 12/20/22 11:23 17:02 POC Glucose 255 H 141 H Medications Medications Current Medications Acetaminophen (Acetaminophen 325 Mg Tablet) 650 mg PO Q6H PRN PRN Reason: Headache/Pain Mild Scale (1-3) Last Admin: 12/18/22 20:04 Dose: 650 mg Al Hydroxide/Mg Hydroxide (Magnesium Hydrox/Alum Hydrox 30 Ml Oral.Susp) 30 ml PO Q6H PRN PRN Reason: Heartburn/Nausea Lipase/Protease/Amylase (Lipase/Prot/Amylase 12/38/60k Capsule.Dr) 1 cap PO TIDWM [facility] Last Admin: 12/20/22 17:22 Dose: 1 cap Benztropine Mesylate (Benztropine Mesylate 0.5 Mg Tablet) 0.5 mg PO BID [facility] Carvedilol (Carvedilol 3.125 Mg Tablet) 3.125 mg PO BID [facility]; Protocol Last Admin: 12/20/22 08:56 Dose: 3.125 mg Clonidine HCl (Clonidine Hcl 0.1 Mg Tablet) 0.1 mg PO DAILY [facility]; Protocol Last Admin: 12/20/22 08:56 Dose: 0.1 mg Folic Acid (Folic Acid 1 Mg Tablet) 1 mg PO DAILY [facility] Last Admin: 12/20/22 08:56 Dose: 1 mg Furosemide (Furosemide 40 Mg Tablet) 40 mg PO BID@0700,1500 [facility]; Protocol Last Admin: 12/20/22 14:36 Dose: 40 mg Glucose (Glucose Gel 15 Gm Gel..Gram.) 15 gm PO Q15M PRN PRN Reason: per Hypoglycemia Standing Ord. Haloperidol (Haloperidol 5 Mg Tablet) 2.5 mg PO Q8H PRN PRN Reason: agitation Insulin Glargine (Insulin Glargine,Hum.Rec.Anlog 100 Unit/Ml 10 Ml Vial) 6 unit SUBCUT DAILY [facility] Last Admin: 12/20/22 08:54 Dose: 6 unit Insulin Human Lispro (Insulin Lispro 100 Unit/Ml 3 Ml Vial) 0 unit SUBCUT QIDACHS [facility]; Protocol Last Admin: 12/20/22 17:19 Dose: Not Given Lactulose (Lactulose 20 Gm/30 Ml Solution) 20 gm PO BID [facility] Last Admin: 12/20/22 08:58 Dose: 20 gm Magnesium Hydroxide (Milk Of Magnesia 30 Ml Oral.Susp) 30 ml PO DAILY PRN PRN Reason: Constipation Magnesium Oxide (Magnesium Oxide 400 Mg Tablet) 400 mg PO BID [facility] Last Admin: 12/20/22 08:56 Dose: 400 mg Multivitamins/Vitamin C (Multivitamin Tablet) 1 tab PO DAILY [facility] Last Admin: 12/20/22 08:56 Dose: 1 tab Nicotine Polacrilex (Nicotine Polacrilex 2 Mg Gum) 2 mg BUCCAL Q2H PRN PRN Reason: Nicotine Cravings Last Admin: 12/20/22 08:56 Dose: 2 mg Omeprazole (Omeprazole 20 Mg Capsule.Dr) 20 mg PO DAILY@0630 [facility] Last Admin: 12/20/22 05:47 Dose: 20 mg Quetiapine Fumarate (Quetiapine Fumarate 100 Mg Tablet) 100 mg PO BEDTIME PRN PRN Reason: insomnia Risperidone (Risperidone 3 Mg Tablet) 3 mg PO BID [facility] Last Admin: 12/20/22 08:56 Dose: 3 mg Senna/Docusate Sodium (Sennosides/Docusate Sodium Tablet) 1 tab PO BID PRN PRN Reason: Constipation Thiamine HCl (Thiamine Hcl 100 Mg Tablet) 100 mg PO DAILY [facility] Last Admin: 12/20/22 08:56 Dose: 100 mg Tiotropium [place] (Tiotropium [place] 2.5 Mcg Inhaler) 2 puff INHALE DAILY [facility] Last Admin: 12/20/22 08:58 Dose: 2 puff Trazodone HCl (Trazodone Hcl 100 Mg Tablet) 100 mg PO BEDTIME PRN PRN Reason: insomnia Allergies Allergies Allergy/AdvReac Type Severity Reaction Status Date / Time olanzapine [From Zyprexa] Allergy Unknown Verified 09/03/21 14:49 prednisone Allergy Unknown Verified 09/03/21 14:49 NSAIDS (Non-Steroidal AdvReac Mild Abdominal Verified 09/03/21 14:49 Anti-Inflamma Pain egg AdvReac Gastrointestinal Verified 12/16/22 16:32 Upset Assessment & Plan Assessment & Plan (1) Schizoaffective disorder, bipolar type without good prognostic features: Status: Acute Code(s): F25.0 - Schizoaffective disorder, bipolar type (2) Diabetes: Status: Acute Code(s): E11.9 - Type 2 diabetes mellitus without complications (3) Hypertension: Status: Acute Code(s): I10 - Essential (primary) hypertension Plan [facility] in the context of gross paranoia and thought disorganization and reported recent thoughts of self-harm which he is now denying. She is admitted on a voluntary basis will get medical hospital consult history of diabetes CHF hypertension reported recent hypoxia chf Patient unable to give clear history safe when get history from [facility] case management. Patient will for boyfriend also lives in the house in a separate apartment Continue Risperdal for nail consider change to Invega a clear what patient has most recently been on. Patient has been manic in the past 12/18 continue tx. 12/19 continue tx. 12/20/22 Continue current regime and plan of care. Patient educated on: medication risk/benefits and therapeutic strategies Informed Consent: understands and further education needed Reason for continued inpatient stay Substantial Risk for: rapid decompensation and med/psych decompensation Time Spent With Patient Time: Total time managing care of this patient today ____ minutes.
--- NOTE | 2022-12-20 21:10 | PC.NURSE ---
PT refused evening POC and evening medication. When this nurse entered the room, pt shouted, NO! Get out, I'm sleeping. When this casualty underwriter attempted to explain plan of care, pt shouted Get out .
[2022-12-21] MEDS: Omeprazole 20 MG CAPSULE.DR PO (06:19)
[2022-12-21] MEDS: Furosemide 40 MG TABLET PO ×2 (06:19→14:27)
[2022-12-21 08:00] VITALS: BP 126/77; PULSE 109; RESP 16; TEMP 36.2; O2SAT 91; BMI 29.3
[2022-12-21 08:48] LABS: Glucose, Whole Blood 175 mg/dL (60-115)
[2022-12-21] MEDS: Lactulose 20 GM/30 ML SOLUTION PO ×2 (09:00→20:14)
[2022-12-21] MEDS: Insulin Glargine,Hum.rec.anlog 100 UNIT/ML 10 ML VIAL 6 UNIT SUBCUT (09:00)
[2022-12-21] MEDS: Insulin Lispro 100 UNIT/ML 3 ML VIAL SUBCUT ×4 (09:01→20:15)
[2022-12-21] MEDS: Folic Acid 1 MG TABLET PO (09:03)
[2022-12-21] MEDS: Multivitamin TABLET 1 TAB PO (09:03)
[2022-12-21] MEDS: Lipase/Prot/Amylase 12/38/60K CAPSULE.DR 1 CAP PO ×3 (09:03→17:06)
[2022-12-21] MEDS: Benztropine Mesylate 0.5 MG TABLET PO ×2 (09:03→20:14)
[2022-12-21] MEDS: Magnesium Oxide 400 MG TABLET PO ×2 (09:03→20:14)
[2022-12-21] MEDS: carvediloL 3.125 MG TABLET PO ×2 (09:03→20:14)
[2022-12-21] MEDS: cloNIDine HCL 0.1 MG TABLET PO (09:03)
[2022-12-21] MEDS: Thiamine HCL 100 MG TABLET PO (09:03)
[2022-12-21] MEDS: risperiDONE 3 MG TABLET PO ×2 (09:03→20:14)
--- NOTE | 2022-12-21 10:10 | P.PNPSI_ITS ---
Subjective Subjective Date of Service: 12/21/22 Reason For Visit: schizoaffective disorder Subjective Notes: Conditional Voluntary and 3 Day Healthcare Proxy: No Guardianship: No Medical Problems Affecting Mental Status: No Interim History: Compliant with regime. Denies symptoms Continues to request discharge for 12/22. Looking forward to seeing family, making some plans, and reports she is feeling well. Accepting of return to her [facility]. Talking about continuing all services with her team. Denies SI/HI. Denies perceptual alterations, current concerns, fears, worries. States she does not believe a longer stay will be of benefit. Medication Compliance: Yes Side effects from medications: No Attending Groups: Intermittent Review of Systems Acute medical concerns: No Medical Review of Systems: unchanged Mental Status Exam Mental Status Exam Patient Appearance: Appropriate Patient Orientation: Person, Place, Time and Situation Level of Consciousness: Alert Patient Behavior: Talkative and Good Eye Contact Mood Description: Cheerful Affect Description: Constricted Patient Cognition Impaired: No Ability to Follow Directions: Good Speech Pattern: Spontaneous Speech Memory Description: Episodic Impaired Hallucinations: None (denies) Delusions: Grandiose Thought Process: Distracted Thought Content: positive for [place], positive for Circumstantial, positive Judgement: Good Diagnostics Vital Signs (24Hr): Vital Signs - 24 hr 12/20/22 17:13 12/21/22 08:00 Temperature 96.7 F L 97.1 F Pulse Rate 89 109 H Respiratory Rate 16 16 Blood Pressure 134/88 126/77 Pulse Oximetry 96 91 L Oxygen Delivery Method Room Air Room Air BMI result Body Mass Index 29.3 Labs Labs: Laboratory Results - last 48 hr 12/19/22 12/19/22 12/19/22 12:41 17:12 19:50 POC Glucose 232 H 130 H 239 H 12/20/22 12/20/22 12/20/22 08:37 11:23 17:02 POC Glucose 194 H 255 H 141 H 12/21/22 08:45 POC Glucose 175 H Medications Medications Current Medications Acetaminophen (Acetaminophen 325 Mg Tablet) 650 mg PO Q6H PRN PRN Reason: Headache/Pain Mild Scale (1-3) Last Admin: 12/18/22 20:04 Dose: 650 mg Al Hydroxide/Mg Hydroxide (Magnesium Hydrox/Alum Hydrox 30 Ml Oral.Susp) 30 ml PO Q6H PRN PRN Reason: Heartburn/Nausea Lipase/Protease/Amylase (Lipase/Prot/Amylase 1238/60k Capsule.) 1 cap PO TIDWM [facility] Last Admin: 12/21/22 09:03 Dose: 1 cap Benztropine Mesylate (Benztropine Mesylate 0.5 Mg Tablet) 0.5 mg PO BID [facility] Last Admin: 12/21/22 09:03 Dose: 0.5 mg Carvedilol (Carvedilol 3.125 Mg Tablet) 3.125 mg PO BID [facility]; Protocol Last Admin: 12/21/22 09:03 Dose: 3.125 mg Clonidine HCl (Clonidine Hcl 0.1 Mg Tablet) 0.1 mg PO DAILY [facility]; Protocol Last Admin: 12/21/22 09:03 Dose: 0.1 mg Folic Acid (Folic Acid 1 Mg Tablet) 1 mg PO DAILY [facility] Last Admin: 12/21/22 09:03 Dose: 1 mg Furosemide (Furosemide 40 Mg Tablet) 40 mg PO BID@0700,1500 [facility]; Protocol Last Admin: 12/21/22 06:19 Dose: 40 mg Glucose (Glucose Gel 15 Gm Gel..Gram.) 15 gm PO Q15M PRN PRN Reason: per Hypoglycemia Standing Ord. Haloperidol (Haloperidol 5 Mg Tablet) 2.5 mg PO Q8H PRN PRN Reason: agitation Insulin Glargine (Insulin Glargine,Hum.Rec.Anlog 100 Unit/Ml 10 Ml Vial) 6 unit SUBCUT DAILY [facility] Last Admin: 12/21/22 09:00 Dose: 6 unit Insulin Human Lispro (Insulin Lispro 100 Unit/Ml 3 Ml Vial) 0 unit SUBCUT QIDACHS [facility]; Protocol Last Admin: 12/21/22 09:01 Dose: 2 unit Lactulose (Lactulose 20 Gm/30 Ml Solution) 20 gm PO BID [facility] Last Admin: 12/21/22 09:00 Dose: 20 gm Magnesium Hydroxide (Milk Of Magnesia 30 Ml Oral.Susp) 30 ml PO DAILY PRN PRN Reason: Constipation Magnesium Oxide (Magnesium Oxide 400 Mg Tablet) 400 mg PO BID [facility] Last Admin: 12/21/22 09:03 Dose: 400 mg Anti-Inflamma Pain PRN Reason: Nicotine Cravings Last Admin: 12/20/22 08:56 Dose: 2 mg Assessment & Plan PRN Reason: insomnia Risperidone (Risperidone 3 Mg Tablet) 3 mg PO BID [facility] Last Admin: 12/21/22 09:03 Dose: 3 mg (2) Diabetes: PRN Reason: Constipation Code(s): Last Admin: 12/21/22 09:03 Dose: 100 mg Tiotropium [place] (Tiotropium [place] 2.5 Mcg Inhaler) 2 puff INHALE DAILY [facility] Code(s): PRN Reason: insomnia Allergies Allergies Allergy/AdvReac Type Severity Reaction Status Date / Time olanzapine [From Zyprexa] Allergy Unknown Verified 09/03/21 14:49 prednisone Allergy Unknown Verified 09/03/21 14:49 NSAIDS (Non-Steroidal AdvReac Mild Abdominal Verified 09/03/21 14:49 Anti-Inflamma Pain egg AdvReac Gastrointestinal Verified 12/16/22 16:32 Upset
--- NOTE | 2022-12-21 10:10 | HO.PSYCHPN ---
Subjective Subjective Date of Service: 12/21/22 Reason For Visit: schizoaffective disorder Subjective Notes: Conditional Voluntary and 3 Day Healthcare Proxy: No Guardianship: No Medical Problems Affecting Mental Status: No Interim History: Compliant with regime. Denies symptoms Continues to request discharge for 12/22. Looking forward to seeing family, making some plans, and reports she is feeling well. Accepting of return to her [facility]. Talking about continuing all services with her team. Denies SI/HI. Denies perceptual alterations, current concerns, fears, worries. States she does not believe a longer stay will be of benefit. Medication Compliance: Yes Side effects from medications: No Attending Groups: Intermittent Review of Systems Acute medical concerns: No Medical Review of Systems: unchanged Mental Status Exam Mental Status Exam Patient Appearance: Appropriate Patient Orientation: Person, Place, Time and Situation Level of Consciousness: Alert Patient Behavior: Talkative and Good Eye Contact Mood Description: Cheerful Affect Description: Constricted Patient Cognition Impaired: No Ability to Follow Directions: Good Speech Pattern: Spontaneous Speech Memory Description: Episodic Impaired Hallucinations: None (denies) Delusions: Grandiose Thought Process: Distracted Thought Content: positive for [place], positive for Circumstantial, positive for Goal Oriented, positive for Tangential, positive for Suicidal Ideation (denies) and positive for Homicidal Ideation (denies) Judgement: Good Diagnostics Vital Signs (24Hr): Vital Signs - 24 hr 12/20/22 17:13 12/21/22 08:00 Temperature 96.7 F L 97.1 F Pulse Rate 89 109 H Respiratory Rate 16 16 Blood Pressure 134/88 126/77 Pulse Oximetry 96 91 L Oxygen Delivery Method Room Air Room Air BMI result Body Mass Index 29.3 Labs Labs: Laboratory Results - last 48 hr 12/19/22 12/19/22 12/19/22 12:41 17:12 19:50 POC Glucose 232 H 130 H 239 H 12/20/22 12/20/22 12/20/22 08:37 11:23 17:02 POC Glucose 194 H 255 H 141 H 12/21/22 08:45 POC Glucose 175 H Medications Medications Current Medications Acetaminophen (Acetaminophen 325 Mg Tablet) 650 mg PO Q6H PRN PRN Reason: Headache/Pain Mild Scale (1-3) Last Admin: 12/18/22 20:04 Dose: 650 mg Al Hydroxide/Mg Hydroxide (Magnesium Hydrox/Alum Hydrox 30 Ml Oral.Susp) 30 ml PO Q6H PRN PRN Reason: Heartburn/Nausea Lipase/Protease/Amylase (Lipase/Prot/Amylase 12/38/60k Capsule.) 1 cap PO TIDWM [facility] Last Admin: 12/21/22 09:03 Dose: 1 cap Benztropine Mesylate (Benztropine Mesylate 0.5 Mg Tablet) 0.5 mg PO BID [facility] Last Admin: 12/21/22 09:03 Dose: 0.5 mg Carvedilol (Carvedilol 3.125 Mg Tablet) 3.125 mg PO BID [facility]; Protocol Last Admin: 12/21/22 09:03 Dose: 3.125 mg Clonidine HCl (Clonidine Hcl 0.1 Mg Tablet) 0.1 mg PO DAILY [facility]; Protocol Last Admin: 12/21/22 09:03 Dose: 0.1 mg Folic Acid (Folic Acid 1 Mg Tablet) 1 mg PO DAILY [facility] Last Admin: 12/21/22 09:03 Dose: 1 mg Furosemide (Furosemide 40 Mg Tablet) 40 mg PO BID@0700,1500 [facility]; Protocol Last Admin: 12/21/22 06:19 Dose: 40 mg Glucose (Glucose Gel 15 Gm Gel..Gram.) 15 gm PO Q15M PRN PRN Reason: per Hypoglycemia Standing Ord. Haloperidol (Haloperidol 5 Mg Tablet) 2.5 mg PO Q8H PRN PRN Reason: agitation Insulin Glargine (Insulin Glargine,Hum.Rec.Anlog 100 Unit/Ml 10 Ml Vial) 6 unit SUBCUT DAILY [facility] Last Admin: 12/21/22 09:00 Dose: 6 unit Insulin Human Lispro (Insulin Lispro 100 Unit/Ml 3 Ml Vial) 0 unit SUBCUT QIDACHS [facility]; Protocol Last Admin: 12/21/22 09:01 Dose: 2 unit Lactulose (Lactulose 20 Gm/30 Ml Solution) 20 gm PO BID [facility] Last Admin: 12/21/22 09:00 Dose: 20 gm Magnesium Hydroxide (Milk Of Magnesia 30 Ml Oral.Susp) 30 ml PO DAILY PRN PRN Reason: Constipation Magnesium Oxide (Magnesium Oxide 400 Mg Tablet) 400 mg PO BID [facility] Last Admin: 12/21/22 09:03 Dose: 400 mg Multivitamins/Vitamin C (Multivitamin Tablet) 1 tab PO DAILY [facility] Last Admin: 12/21/22 09:03 Dose: 1 tab Nicotine Polacrilex (Nicotine Polacrilex 2 Mg Gum) 2 mg BUCCAL Q2H PRN PRN Reason: Nicotine Cravings Last Admin: 12/20/22 08:56 Dose: 2 mg Omeprazole (Omeprazole 20 Mg Capsule.Dr) 20 mg PO DAILY@0630 [facility] Last Admin: 12/21/22 06:19 Dose: 20 mg Quetiapine Fumarate (Quetiapine Fumarate 100 Mg Tablet) 100 mg PO BEDTIME PRN PRN Reason: insomnia Risperidone (Risperidone 3 Mg Tablet) 3 mg PO BID [facility] Last Admin: 12/21/22 09:03 Dose: 3 mg Senna/Docusate Sodium (Sennosides/Docusate Sodium Tablet) 1 tab PO BID PRN PRN Reason: Constipation Thiamine HCl (Thiamine Hcl 100 Mg Tablet) 100 mg PO DAILY [facility] Last Admin: 12/21/22 09:03 Dose: 100 mg Tiotropium [place] (Tiotropium [place] 2.5 Mcg Inhaler) 2 puff INHALE DAILY [facility] Last Admin: 12/21/22 09:05 Dose: 2 puff Trazodone HCl (Trazodone Hcl 100 Mg Tablet) 100 mg PO BEDTIME PRN PRN Reason: insomnia Allergies Allergies Allergy/AdvReac Type Severity Reaction Status Date / Time olanzapine [From Zyprexa] Allergy Unknown Verified 09/03/21 14:49 prednisone Allergy Unknown Verified 09/03/21 14:49 NSAIDS (Non-Steroidal AdvReac Mild Abdominal Verified 09/03/21 14:49 Anti-Inflamma Pain egg AdvReac Gastrointestinal Verified 12/16/22 16:32 Upset Assessment & Plan Assessment & Plan (1) Schizoaffective disorder, bipolar type without good prognostic features: Status: Acute Code(s): F25.0 - Schizoaffective disorder, bipolar type (2) Diabetes: Status: Acute Code(s): E11.9 - Type 2 diabetes mellitus without complications (3) Hypertension: Status: Acute Code(s): I10 - Essential (primary) hypertension Plan [facility] in the context of gross paranoia and thought disorganization and reported recent thoughts of self-harm which he is now denying. She is admitted on a voluntary basis will get medical hospital consult history of diabetes CHF hypertension reported recent hypoxia chf Patient unable to give clear history safe when get history from [facility] case management. Patient will for boyfriend also lives in the house in a separate apartment Continue Risperdal for nail consider change to Invega a clear what patient has most recently been on. Patient has been manic in the past 12/18 continue tx. 12/19 continue tx. 12/21/22 Discharge planning for 12/22. Out patient services are in place. Patient educated on: therapeutic strategies Informed Consent: understands and further education needed Reason for continued inpatient stay Substantial Risk for: rapid decompensation and med/psych decompensation Time Spent With Patient Time: Total time managing care of this patient today ____ minutes.
[2022-12-21 11:22] LABS: Glucose, Whole Blood 236 mg/dL (60-115)
[2022-12-21] MEDS: Nicotine Polacrilex 2 MG GUM BUCCAL ×2 (11:43→20:50)
[2022-12-21 14:25] VITALS: BP 144/86; O2SAT 92
[2022-12-21 16:12] LABS: Glucose, Whole Blood 174 mg/dL (60-115)
[2022-12-21 20:12] LABS: Glucose, Whole Blood 175 mg/dL (60-115)
[2022-12-21 20:30] VITALS: BP 148/88; PULSE 99; RESP 16; TEMP 36.3; O2SAT 92
[2022-12-21] MEDS: Magnesium Hydrox/Alum Hydrox 30 ML ORAL.SUSP PO (21:42)
[2022-12-22 06:00] VITALS: BP 141/87; PULSE 96; RESP 16; TEMP 36.2; O2SAT 96
[2022-12-22] MEDS: Omeprazole 20 MG CAPSULE.DR PO (06:02)
[2022-12-22 08:00] VITALS: BMI 29.3
[2022-12-22 08:30] LABS: Glucose, Whole Blood 137 mg/dL (60-115)
[2022-12-22] MEDS: Thiamine HCL 100 MG TABLET PO (08:42)
[2022-12-22] MEDS: risperiDONE 3 MG TABLET PO (08:42)
[2022-12-22] MEDS: cloNIDine HCL 0.1 MG TABLET PO (08:42)
[2022-12-22] MEDS: Magnesium Oxide 400 MG TABLET PO (08:42)
[2022-12-22] MEDS: Furosemide 40 MG TABLET PO (08:42)
[2022-12-22] MEDS: Benztropine Mesylate 0.5 MG TABLET PO (08:42)
[2022-12-22] MEDS: Folic Acid 1 MG TABLET PO (08:42)
[2022-12-22] MEDS: Lipase/Prot/Amylase 12/38/60K CAPSULE.DR 1 CAP PO (08:42)
[2022-12-22] MEDS: carvediloL 3.125 MG TABLET PO (08:43)
[2022-12-22] MEDS: Multivitamin TABLET 1 TAB PO (08:43)
[2022-12-22] MEDS: Insulin Glargine,Hum.rec.anlog 100 UNIT/ML 10 ML VIAL 6 UNIT SUBCUT (08:46)
[2022-12-22] MEDS: Nicotine Polacrilex 2 MG GUM BUCCAL (09:24)
--- NOTE | 2022-12-22 16:11 | PM.PSYDC ---
DS: Providers Provider Date of Service: 12/22/22 Date of admission: 12/16/22 19:54 Date of discharge: 12/22/22 Primary care physician: Unknown Physician Admitting clinician: Erik Bauer Attending physician on admission: Erik Bauer Consults: 12/16/22 20:33 Consult to Hospitalist Routine Comment: Consulting Provider: Hospitalist Reason For Exam: admission physical Attending physician on discharge: Erik Bauer Discharging clinician: Carrie Leigh DS: Diagnosis Discharge Diagnosis (1) Schizoaffective disorder, bipolar type without good prognostic features: Status: Acute (2) Diabetes: Status: Acute (3) Hypertension: Status: Acute DS: Medications Discharge Medications Home Medications: Previous Rx's Medication Instructions Recorded benztropine 0.5 mg tablet 0.5 mg PO BID #60 tabs 12/22/22 carvedilol 3.125 mg tablet 3.125 mg PO BID #60 tabs 12/22/22 clonidine HCl 0.1 mg tablet 0.1 mg PO DAILY #30 tabs 12/22/22 folic acid 1 mg tablet 1 mg PO DAILY #30 tabs 12/22/22 furosemide 40 mg tablet 40 mg PO BID@0700,1500 #60 tabs 12/22/22 haloperidol 5 mg tablet 2.5 mg (1/2 x 5 mg) PO Q8H PRN 12/22/22 agitation #60 tabs insulin glargine 100 unit/mL 6 unit (0.06 mL) subcut DAILY #10 12/22/22 subcutaneous solution (Lantus mL U-100 Insulin) lactulose 20 gram/30 mL oral 20 g (30 mL) PO BID #1 units 12/22/22 solution [id number]-[id number]-[id number] 1 cap PO TID #90 caps 12/22/22 12,000-38,000-60,000 unit capsule,delayed rel (Creon) magnesium oxide 400 mg (241.3 mg 400 mg PO BID #60 tabs 12/22/22 magnesium) tablet multivitamin (Daily-Kimberly tablet) 1 tab PO DAILY #30 tabs 12/22/22 nicotine (polacrilex) 2 mg gum 2 mg buccal Q2H PRN Nicotine 12/22/22 Cravings #60 ea pantoprazole 40 mg tablet,delayed 1 tab PO DAILY #30 tabs 12/22/22 release quetiapine 100 mg tablet 100 mg PO BEDTIME PRN insomnia #30 12/22/22 tabs risperidone 3 mg tablet 3 mg PO BID #60 tabs 12/22/22 sennosides 8.6 mg-docusate sodium 1 tab PO BID PRN Constipation #60 12/22/22 50 mg tablet (Senna Plus) tabs thiamine mononitrate (vit B1) 100 100 mg PO DAILY #30 tabs 12/22/22 mg tablet tiotropium bromide 2.5 2 puff inhalation DAILY #1 inhaler 12/22/22 mcg/actuation mist for inhalation (Spiriva Respimat) trazodone 100 mg tablet 100 mg PO BEDTIME PRN insomnia #30 12/22/22 tabs Mental Status Exam Mental Status Exam Patient Appearance: Appropriate Patient Orientation: Person, Place, Time and Situation Level of Consciousness: Alert Patient Behavior: Talkative and Good Eye Contact Mood Description: Cheerful Affect Description: Constricted Patient Cognition Impaired: No Ability to Follow Directions: Good Speech Pattern: Spontaneous Speech Memory Description: Episodic Impaired Hallucinations: None (denies) Delusions: Grandiose Thought Process: Distracted Thought Content: positive for [place], positive for Circumstantial, positive for Goal Oriented, positive for Tangential, positive for Suicidal Ideation (denies) and positive for Homicidal Ideation (denies) Judgement: Good Data Data Completed and Pending Completed studies during hospitalization [Text1]: 12/17/22 12/17/22 12/18/22 08:34 20:33 08:14 POC Glucose 155 H 172 H Estimat Average Glucose 140 Hemoglobin A1c % 6.5 H Triglycerides 150 H Cholesterol 269 H LDL Cholesterol, Calc 164 H HDL Cholesterol 75 12/18/22 12/18/22 12/19/22 12:23 19:38 08:37 POC Glucose 217 H 264 H 208 H Estimat Average Glucose Hemoglobin A1c % Triglycerides Cholesterol LDL Cholesterol, Calc HDL Cholesterol 12/19/22 12/19/22 12/19/22 12:41 17:12 19:50 POC Glucose 232 H 130 H 239 H Estimat Average Glucose Hemoglobin A1c % Triglycerides Cholesterol LDL Cholesterol, Calc HDL Cholesterol 12/20/22 12/20/22 12/20/22 08:37 11:23 17:02 POC Glucose 194 H 255 H 141 H Estimat Average Glucose Hemoglobin A1c % Triglycerides Cholesterol LDL Cholesterol, Calc HDL Cholesterol 12/21/22 12/21/22 12/21/22 08:45 11:19 16:08 POC Glucose 175 H 236 H 174 H Estimat Average Glucose Hemoglobin A1c % Triglycerides Cholesterol LDL Cholesterol, Calc HDL Cholesterol 12/21/22 12/22/22 20:08 08:24 POC Glucose 175 H 137 H Estimat Average Glucose Hemoglobin A1c % Triglycerides Cholesterol LDL Cholesterol, Calc HDL Cholesterol DS: Summary Hospital Course Hospital Course: Admission to adult psychiatry for exacerbation of schizoaffective disorder with SI. Pt filed a three day notice on admission. Medication regime was evaluated and changes were made to assist with symptom mgt. Pt was asked to retract and remain in patient so more could be done to assist her in symptom mgt. However, she declined, leaving on the three day notice filed. Time spent discussing smoking cessation with patient: 3 to 10 minutes Status at Discharge Functional status at discharge: independent ambulation Overall status at discharge: patient is progressing back to baseline Time Spent with Patient Time attestation: Total time managing care of this patient today ____ minutes. Time spent: Greater than 30 minutes Discharge Plan Discharge Anticipated Discharge Date/Time: 12/22/22 12:00 Patient Disposition: Home, Self-Care Discharge Diagnosis: Schizoaffective Disorder Hypertension Diabetes Referrals: [facility] [Other] - 1 Week (fax- [phone] Plan is to restart services following D/C. ) Psych Prescriber: Elo Jenkins ([facility]) [Other] - 01/17/23 1:30 pm (Appointment is in person, at the office in [place]. This is an initial evaluation appointment so it is scheduled for 90 minutes. ) Jaki Bishop MD [Physician] - 01/14/23 11:00 am (in office) Discharge Medications: New furosemide 40 mg Tablet 40 mg PO BID@0700,1500 Qty: 60 0RF Protocol: Hold for SBP< HOLD for SBP < : 90 benztropine 0.5 mg Tablet 0.5 mg PO BID Qty: 60 0RF haloperidol 5 mg Tablet 2.5 mg PO Q8H PRN (Reason: agitation) Qty: 60 0RF nicotine (polacrilex) 2 mg Gum 2 mg buccal Q2H PRN (Reason: Nicotine Cravings) Qty: 60 0RF quetiapine 100 mg Tablet 100 mg PO BEDTIME PRN (Reason: insomnia) Qty: 30 0RF risperidone 3 mg Tablet 3 mg PO BID Qty: 60 0RF trazodone 100 mg Tablet 100 mg PO BEDTIME PRN (Reason: insomnia) Qty: 30 0RF lactulose 20 gram/30 mL Solution 20 g PO BID Qty: 1 0RF Continued multivitamin [Daily-Kimberly] Tablet 1 tab PO DAILY Qty: 30 0RF clonidine HCl 0.1 mg Tablet 0.1 mg PO DAILY Qty: 30 0RF Protocol: Hold for SBP< HOLD for SBP < : 90 insulin glargine [Lantus U-100 Insulin] 100 unit/mL Solution 6 unit subcut DAILY Qty: 10 0RF sennosides-docusate sodium [Senna Plus] 8.6-50 mg Tablet 1 tab PO BID PRN (Reason: Constipation) Qty: 60 0RF carvedilol 3.125 mg Tablet 3.125 mg PO BID Qty: 60 0RF Protocol: Hold for SBP/HR < HOLD for SBP < : 90 HOLD for HR < : 60 pantoprazole 40 mg tablet,delayed release (DR/EC) 1 tab PO DAILY Qty: 30 0RF folic acid 1 mg Tablet 1 mg PO DAILY Qty: 30 0RF Creon 12,000-38,000 -60,000 unit capsule,delayed release(DR/EC) 1 cap PO TID Qty: 90 0RF Rx Instructions: take 1 capsule by mouth 3x daily with meals thiamine mononitrate (vit B1) 100 mg Tablet 100 mg PO DAILY Qty: 30 0RF Spiriva Respimat 2.5 mcg/actuation mist 2 puff inhalation DAILY Qty: 1 0RF Changed magnesium oxide 400 mg (241.3 mg magnesium) tablet 400 mg PO BID Qty: 60 0RF Discontinued insulin lispro [Humalog U-100 Insulin] 100 unit/mL Solution See Protocol subcut QIDACHS Qty: 10 0RF Protocol: Insulin Correction Scale Less than or equal to 110 ---- Give (units): 0 111 to 150 Give (units): 0 151 to 200 Give (units): 2 201 to 250 Give (units): 4 251 to 300 Give (units): 6 301 to 350 Give (units): 8 Greater than 350 Give (units): 10 Call MD if Blood Glucose > : 350 trazodone 50 mg tablet 50 mg PO BEDTIME PRN (Reason: Insomnia) furosemide 20 mg tablet 40 mg PO BID Protocol: Hold for SBP< HOLD for SBP < : 90 Rx Instructions: Take one tablet daily @ 7am and 3pm lactulose 20 gram/30 mL solution 20 g PO BID risperidone 2 mg tablet 4 mg PO BID Discharge Orders: Discharge Order (Routine); Ordered 12/22/22 Ordered By: Carrie Leigh Diet: Diabetic diet Activity on Discharge: As tolerated Stand Alone Forms: Patient Portal Discharge page, Community Support Care Plan Goals: Mood and Behavioral Stabilization Medical stability Health Concerns: Mood and Behavioral Stabilization Medical stability Plan of Treatment: Attend scheduled appointments Take medications as directed Call or return as needed Assessment: Pt interviewed prior to discharge and found to be fully oriented and without SI/HI. Pt has insight and demonstrates good judgment in terms of wanting to pursue treatment. Pt is not in imminent risk of harm to self or others and has a safety plan that includes presenting to the closest ER or calling 911 if feeling unsafe. Pt has been observed closely by nursing and unit staff throughout admission Pt has not engaged in any behaviors that suggest dangerousness to self or others and has demonstrated appropriate behaviors and impulse control. Three day notice. Discharge Date/Time: 12/22/22 11:51
== END 2022-12-22 11:51 | disposition home or self-care (01) | DRG 750 ==
PROVIDERS: Admitting Provider Psychiatry & Neurology Psychiatry; Visit Provider Clinical Nurse Specialist Psychiatric/Mental Health, Adult
DX: F25.0 Schizoaffective disorder, bipolar type (principal); R45.851 Suicidal ideations; E11.9 Type 2 diabetes mellitus without complications; I50.32 Chronic diastolic (congestive) heart failure; I11.0 Hypertensive heart disease with heart failure; K59.09 Other constipation; K86.1 Other chronic pancreatitis; Z87.891 Personal history of nicotine dependence; Z79.899 Other long term (current) drug therapy
CPT/HCPCS: 36415; 80061; 82947; 83036

== ENCOUNTER → 2022-12-16 19:54 | Outpatient (BNV) | payer OTHER, SELFPAY | PROVIDERS: Admitting Provider Psychiatry & Neurology Psychiatry; Visit Provider Psychiatry & Neurology Psychiatry | DX: F25.0 Schizoaffective disorder, bipolar type (principal); E11.9 Type 2 diabetes mellitus without complications; I10 Essential (primary) hypertension | CPT/HCPCS: 99232 ==

== ENCOUNTER → 2022-12-16 19:54 | Outpatient (BNV) | payer OTHER, SELFPAY | PROVIDERS: Admitting Provider Psychiatry & Neurology Psychiatry; Visit Provider Student in an Organized Health Care Education/Training Program | DX: Z00.8 Encounter for other general examination (principal) | CPT/HCPCS: 99429 ==

== ENCOUNTER → 2022-12-16 19:54 | Outpatient (BNV) | payer OTHER, SELFPAY | PROVIDERS: Admitting Provider Psychiatry & Neurology Psychiatry; Visit Provider Social Worker | DX: F25.0 Schizoaffective disorder, bipolar type (principal); E11.9 Type 2 diabetes mellitus without complications; I10 Essential (primary) hypertension | CPT/HCPCS: 99231; 99232 ==

== ENCOUNTER 2023-02-09 22:30 | Inpatient (IN) | payer OTHER, SELFPAY ==
--- OUTSIDE RECORDS SUMMARY | 2023-02-09 22:33 | XMS_ITS | Continuity of Care Document ---
Author Name Unknown Organization [facility] Address [address] [place] [id number]- Care Team Providers Care Property Caretaker Name Role Phone Jaki Bishop MD Primary Care Physician Encounter [facility] Date(s): 03/02/21 - 04/01/21 [facility] [address] [place] [id number]- Allergies, Adverse Reactions, Alerts Substance Reaction Severity Status NSAIDs Active predniSONE Dizzinesses 02-JAN-2016 21:52:27<$> Active Zyprexa Hypertension Active Immunizations Given and Recorded Vaccine Date Status Refusal Reason influenza virus vaccine, inactivated 02/12/21 Give n influenza virus vaccine, inactivated 04/12/20 Give n influenza virus vaccine, inactivated 12/14/17 Give n influenza virus vaccine, inactivated 12/21/16 Give n influenza virus vaccine, inactivated 02/20/16 Give n influenza virus vaccine, inactivated 02/21/15 Give n influenza virus vaccine, inactivated 12/26/13 Give n influenza virus vaccine, inactivated 02/23/13 Give n influenza virus vaccine, inactivated 03/04/08 Give n SARS-CoV-2 (COVID-19) Ad26 vaccine 1 09/03/20 Give n Influenza Vaccine (oldterm) 2 01/25/11 Given Influenza Vaccine (oldterm) 3 11/29/08 Given pneumococcal 23-valent vaccine 08/25/10 Given Influenza Inactive (IM) (oldterm) 4 12/04/09 Given tetanus-diphtheria toxoids (Td) 5 10/11/08 Given Not Given Vaccine Date Status Refusal Reason influenza virus vaccine, inactivated 02/07/13 Not Given Parent Or Guardian Refuses influenza virus vaccine, inactivated 02/03/13 Not Given Patient Refuses pneumococcal 23-valent vaccine 10/11/19 Not Given Permanently Refused 1Result Comment: Patient verbally consented to COVID vaccine 2Admin Note: VIS GIVEN [id number] 3Admin Note: VIS GIVEN 2008- 4Admin Note: vis 5Admin Note: vis 02/06/08 Medications acetaminophen 325 mg oral tablet 650 mg, By Mouth, Every 4 hours, PRN, Temperature Greater than 100.5, Refills 0, Maintenance, Pain , Mild, 03/23/21 13:17:00 EST, Partial fill upon patient request if the prescription is for a schedule II opioid drug. Start Date: 03/23/21 Status: Ordered benztropine 0.5 mg oral tablet TAKE ONE TABLET BY MOUTH two (2) times a day Start Date: 03/16/21 Status: Ordered carvedilol 12.5 mg oral tablet 12.5 mg, 1, tablet, By Mouth, 2 times a day, # 180 tablet, Refills 0, Maintenance, 03/16/21 0:46:00EST, Partial fill upon patient request if the prescription is for a schedule II opioid drug. Start Date: 03/16/21 Status: Ordered chlorproMAZINE 50 mg oral tablet 1 tablet = 50 mg, By Mouth, 2 times a day, # 60 tablet, 0 Refills, Maintenance, 03/16/21 0:46:00 EST, Tablet, Partial fill upon patient request if the prescription is for a schedule II opioid drug. Start Date: 03/16/21 Status: Ordered Daily Multiple Vitamins oral tablet TAKE ONE TABLET BY MOUTH DAILY Start Date: 03/16/21 Status: Ordered docusate sodium 100 mg oral capsule TAKE ONE CAPSULE BY MOUTH 2 (two) times a day NEEDED FOR CONSTIPATION Start Date: 03/16/21 Status: Ordered gabapentin 100 mg oral capsule TAKE TWO CAPSULES BY MOUTH DAILY AT BEDTIME Start Date: 03/16/21 Status: Ordered hydrOXYzine pamoate 25 mg oral capsule TAKE ONE CAPSULE BY MOUTH EVERY DAY NEEDED FOR ANXIETY Start Date: 03/16/21 Status: Ordered insulin lispro 100 u/ml subcutaneous injection 2-14 units, Subcutaneous Injection, 3 times a day before meals, 0 Refills, Maintenance, 03/23/21 13:22:00 EST, Injection, Partial fill upon patient request if the prescription is for a schedule II opioid drug. Start Date: 03/23/21 Status: Ordered lactulose 10 gm/15 ml oral syrup TAKE 30mls BY MOUTH 2 (two) times a day Start Date: 03/16/21 Status: Ordered Lantus Inj 0.2 mL = 20 units, Subcutaneous Injection, Daily at bedtime, 0 Refills, Maintenance, 03/23/21 13:22:00 EST, Injection, Partial fill upon patient request if the prescription is for a schedule II opioid drug. Start Date: 03/23/21 Status: Ordered lithium 300 mg oral tablet TAKE 2 TABLETS BY MOUTH DAILY AT BEDTIME Start Date: 03/16/21 Status: Ordered loratadine 10 mg oral tablet 10 mg, 1, tablet, By Mouth, Daily, # 30 tablet, Refills 0, Maintenance, 03/16/21 0:47:00 EST, Partial fill upon patient request if the prescription is for a schedule II opioid drug. Start Date: 03/16/21 Status: Ordered magnesium oxide 400 mg oral tablet TAKE ONE TABLET BY MOUTH two (2) times a day Start Date: 03/16/21 Status: Ordered melatonin 3 mg oral tablet = 3 mg, By Mouth, Daily at bedtime, PRN Insomnia, 0 Refills, Maintenance, 03/23/21 13:18:00 EST, Tablet, Partial fill upon patient request if the prescription is for a schedule II opioid drug. Start Date: 03/23/21 Status: Ordered nicotine 14 mg/24 hr transdermal film, extended release APPLY 1 PATCH TOPICALLY EVERY DAY REMOVE OLD PATCH BEFORE APPLYING NEW ONE. Start Date: 03/16/21 Status: Ordered olanzapine 20 mg oral tablet TAKE ONE TABLET BY MOUTH DAILY AT BEDTIME Start Date: 03/16/21 Status: Ordered pantoprazole 40 mg oral delayed release tablet 1 tablet = 40 mg, By Mouth, Daily, # 90 tablet, 0 Refills, Maintenance, 03/16/21 0:47:00 EST, EC Tablet Start Date: 03/16/21 Status: Ordered torsemide 20 mg oral tablet 1 tablet = 20 mg, By Mouth, Daily, # 30 tablet, 0 Refills, Maintenance, 03/16/21 0:47:00 EST, Tablet, Partial fill upon patient request if the prescription is for a schedule II opioid drug. Start Date: 03/16/21 Status: Ordered Zenpep 10,000 units-32,000 units-42,000 units oral delayed release capsule 1 capsule, By Mouth, 3 times a day, with each meal and snack, # 90 capsule, 0 Refills, Maintenance,03/16/21 0:45:00 EST, CR Capsule, Partial fill upon patient request if the prescription is for a schedule II opioid drug. Start Date: 03/16/21 Status: Ordered Problem List Condition Effective Dates Status Health Status Inform ant Weakness(Confirmed) Active Asthma(Confirmed) Active Atrophic vaginitis(Confirmed) Active Biventricular HF (heart fail ure, EF 20-30%)(Confirmed) Active CS (cervical spondylosis)(Confirmed) Active Chronic kidney disease (CKD)(Confirmed) Active Chronic low back pain w/Bila teral LE Radiculopathy (Lumbar DDD, MRI 03/2011)(Confirmed) Active History of Chronic pancreati tis & Pseudocyst(Confirmed) Active Cirrhosis of liver (Steatohepatitis/NAFLD, Suspected GI Sarcoidosis but no findings sarcoid 2012 liver biopsy)(Confirmed) Active CAP (community acquired pneumonia)(Confirmed) Active Diabetes(Confirmed) Active Dyshidrotic eczema(Confirmed) Active General medical(Confirmed) Active History of splenectomy(Confirmed) Active H/O tubal ligation(Confirmed) Active 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 [facility] [phone](Confirmed) Active Heart failure(Confirmed) Active History of cholecystectomy(Confirmed) Active Hyperglycemia due to diabete s mellitus(Confirmed) Active Hypertension(Confirmed) Active Hypoxia(Confirmed) Active Incisional hernia(Confirmed) Active 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-associated pneumonia)(Confirmed) Active Leukocytosis(Confirmed) Active Nicotine dependence(Confirmed) Active Obese class I(Confirmed) Active Obesity (BMI 30.0-34.9)(Confirmed) Active Pulmonary HTN, Severe(Confirmed) Active Steatohepatitis (w/Stage III Fibrosis, Liver Biopsy 05/2012)(Confirmed) Active Syncope and collapse(Confirmed) Active Heart failure with reduced e jection fraction(Confirmed) Active Tobacco use(Confirmed) Active Social History Social History Type Response Smoking Status 10 or more cigarette s (1/2 pack or more)/day in last 30 days; Interested in cessation: No; Patient wants NRT during admission No;Never; Type: Cigarettes; Exposure to Secondhand Smoke: Yes; Number of years: 30; entered on: 02/07/21 Sex
--- OUTSIDE RECORDS SUMMARY | 2023-02-09 22:33 | XMS_ITS | Continuity of Care Document ---
Author Name Unknown Organization [facility] Address [address] [place] [address]- Care Team Providers Care Film Critic Name Role Phone Jaki Bishop MD Primary Care Physician [facility]counter [facility] Date(s): 05/01/20 - 05/31/[address] [address]- Allergies, Adverse Reactions, Alerts Substance Reaction Severity Status acetaminophen Active predniSONE Dizzinesses 02-JAN-2016 21:52:27<$> Active Zyprexa Hypertension Active NSAIDs Active Immunizations Given and Recorded Vaccine Date Status Refusal Reason influenza virus vaccine, inactivated 04/12/20 Give n influenza virus vaccine, inactivated 12/14/17 Give n influenza virus vaccine, inactivated 12/21/16 Give n influenza virus vaccine, inactivated 02/20/16 Give n influenza virus vaccine, inactivated 02/21/15 Give n influenza virus vaccine, inactivated 12/26/13 Give n influenza virus vaccine, inactivated 02/23/13 Give n influenza virus vaccine, inactivated 03/04/08 Give n Influenza Vaccine (oldterm) 1 01/25/11 Given Influenza Vaccine (oldterm) 2 11/29/08 Given pneumococcal 23-valent vaccine 08/25/10 Given Influenza Inactive (IM) (oldterm) 3 12/04/09 Given tetanus-diphtheria toxoids (Td) 4 10/11/08 Given Not Given Vaccine Date Status Refusal Reason influenza virus vaccine, inactivated 02/07/13 Not Given Parent Or Guardian Refuses influenza virus vaccine, inactivated 02/03/13 Not Given Patient Refuses pneumococcal 23-valent vaccine 10/11/19 Not Given Permanently Refused 1Admin Note: VIS GIVEN [id number] 2Admin Note: VIS GIVEN 2008-12 3Admin Note: vis 4Admin Note: vis 02/06/08 Medications acetaminophen 325 mg oral tablet 1, tablet, By Mouth, 4 times a day, PRN, not to exceed 4 TABLETS PER DAY, # 60 tablet, Refills 0, Tot. Refills 0, Acute, NEEDED, 05/28/20 13:40:00 EST, Route to Pharmacy Electronically, [facility], 168, cm, 04/16/20 8:30:00 EST, Height, 98.7,... Start Date: 05/28/20 Status: Ordered Alcohol Wipes See Instructions, # 1 kit, Maintenance, 3 times a day before meals and bedtime, 04/16/20 11:22:00 EST, Supply, 168, cm, 04/16/20 8:30:00 EST, Height, 98.7, kg, 04/11/20 2:10:00 EST, Dry Weight Start Date: 04/16/20 Status: Ordered bisacodyl 10 mg rectal suppository 1 supp = 10 mg, Rectally, 2 times a day, PRN Constipation, 0 Refills, Maintenance, 12/17/19 11:57:00 EDT, Suppository Start Date: 12/17/19 Status: Ordered clozapine 100 mg oral tablet 1 tablet = 100 mg, By Mouth, Daily in AM, # 30 tablet, 0 Refills, Maintenance, 04/16/20 11:06:00 EST, Tablet, [facility] [id number], Partial fill upon patient request if the prescription is for a schedule II opioid drug., 168,... Start Date: 04/16/20 Status: Ordered clozapine 50 mg oral tablet 3 tablet = 150 mg, By Mouth, Daily at bedtime, # 90 tablet, 0 Refills, Maintenance, 04/16/20 11:06:00 EST, Tablet, [facility] [id number], Partial fill upon patient request ifthe prescription is for a schedule II opioid drug.,... Start Date: 04/16/20 Status: Ordered Coreg 12.5 mg oral tablet 12.5 mg, 1, tablet, By Mouth, 2 times a day, # 180 tablet, Refills 1, Tot. Refills 1, Maintenance, 05/26/20 14:41:00 EST, Route to Pharmacy Electronically, [facility], [place] - [id number], Partial fill upon patient request if the prescr... Start Date: 05/26/20 Stop Date: 11/22/20 Status: Ordered docusate sodium 100 mg oral capsule = 100 mg, By Mouth, 2 times a day, PRN Constipation., # 60 capsule, 3 Refills, Maintenance, 02/29/20 15:13:00 EST, Capsule, [facility] [id number], Partial fill upon patient request if the prescription is for a schedule II opio... Start Date: 02/29/20 Stop Date: 06/28/20 Status: Ordered electric scooter electric scooter, See Instructions, # 1 Unknown, Refills 0, Tot. Refills 0, Maintenance, To help with travel and IADLS, Dx: E11.65, I50.9, I27.20 Please fax to [facility] , 04/29/20 17:21:00 EST, Supply Start Date: 04/29/20 Status: Ordered gabapentin 100 mg oral capsule 200 mg, 2, capsule, By Mouth, 2 times a day, # 120 capsule, Refills 5, Tot. Refills 5, Maintenance,05/28/20 13:46:00 EST, Route to Pharmacy Electronically, [facility] [id number], Partial fill upon patient request if the presc... Start Date: 05/28/20 Status: Ordered Glucose Test Strips See Instructions, # 1 kit, Maintenance, 3 times a day before meals and bedtime, 04/16/20 11:23:00 EST, Supply, 168, cm, 04/16/20 8:30:00 EST, Height, 98.7, kg, 04/11/20 2:10:00 EST, Dry Weight Start Date: 04/16/20 Status: Ordered Heating Pad Heating Pad, See Instructions, # 1 each, Refills 0, Tot. Refills 0, Maintenance, use daily Dx: CHF I50.9. Please fax to [facility] , 04/02/20 16:54:00 EST, Supply Start Date: 04/02/20 Status: Ordered Humalog Kwik Pen 100 units/mL subcutaneous injection See Instructions, 3 Units for bood sugar above 120 mg/dl and then add 2 Units for every 50 mg/dl rise above 120. Three times a day before meals., # 15 mL, 1 Refills, Maintenance, 04/16/20 11:07:00 EST, [place], [place] - [id number],... Start Date: 04/16/20 Status: Ordered lactulose 10 gm/15 ml oral syrup 30 mL, By Mouth, 2 times a day, # 581 mL, 0 Refills, Acute, 03/25/20 11:49:00 EST, [facility],10, TAKE 30 ML BY MOUTH 2 (two) times a day, 168, cm, 02/10/20 5:58:00 EST, Height, 106.8, kg, 10/28/19 9:52:00 EDT, Dry Weight Start Date: 03/25/20 Status: Ordered Lancet Device Pen Lancet Device Pen, See Instructions, # 1 each, Refills 1, Tot. Refills 1, Maintenance, Use to checkglucose levels. Diagnosis: Type II DM, ICD10 E11.9, 05/05/20 17:54:00 EST, Supply, 168, cm, 04/16/20 8:30:00 EST, Height, 98.7, kg, 04/11/20 2:10:00 ES... Start Date: 05/05/20 Status: Ordered Lancets See Instructions, # 1 kit, Maintenance, 3 times a day before meals and bedtime, 04/16/20 11:23:00 EST, Supply, 168, cm, 04/16/20 8:30:00 EST, Height, 98.7, kg, 04/11/20 2:10:00 EST, Dry Weight Start Date: 04/16/20 Status: Ordered Lantus Solostar Pen 100 units/mL subcutaneous solution = 20 units, Subcutaneous Injection, Daily at bedtime, # 10 mL, 1 Refills, Maintenance, 05/23/20 17:50:00 EST, Solution Start Date: 05/23/20 Status: Ordered loratadine 10 mg oral tablet See Instructions, TAKE ONE TABLET BY MOUTH DAILY, # 30 tablet, Refills 5, Tot. Refills 5, 05/01/20 8:18:00 EST, Instructions Replace Required Details, Route to Pharmacy Electronically, [facility], [facility] [id number], 168, cm, 04/16/20... Start Date: 05/01/20 Status: Ordered Maalox Plus Liquid 30 mL, By Mouth, Daily, PRN Dyspepsia, 0 Refills, Maintenance, 12/17/19 11:57:00 EDT, Suspension Start Date: 12/17/19 Status: Ordered MiraLax = 17 Gm, By Mouth, Daily, 0 Refills, Maintenance, 10/11/19 0:34:00 EDT Start Date: 10/11/19 Status: Ordered multivitamin Multiple Vitamins oral tablet 1 tablet, By Mouth, Daily, # 90 tablet, 1 Refills, Maintenance, 05/26/20 13:28:00 EST, Tablet, [facility], [facility] [id number], 1 tablet By Mouth Daily, 168, cm, 04/16/20 8:30:00 EST, Height, 98.7, kg, 04/11/20 2:10:00 EST, Dry Weight Start Date: 05/26/20 Status: Ordered Nicotine = 7 mg, Topically, Daily, 0 Refills, Maintenance, 12/17/19 11:57:00 EDT, Patch Start Date: 12/17/19 Status: Ordered Nicotine 2 mg gum = 2 mg, Chew, Every hour, PRN Other, Nicotine Cravings, # 160 each, 0 Refills, Maintenance, 04/16/20 11:08:00 EST, Gum, [facility] [id number], Partial fill upon patient request if the prescription is for a schedule II opioid d... Start Date: 04/16/20 Status: Ordered Orthopedic Shoes Orthopedic Shoes, See Instructions, # 1 each, Refills 0, Tot. Refills 0, Maintenance, Please dispense 1 pair, Use daily, Dx: E11.65, I50.9, I27.20 Please fax to [facility] , 04/29/20 17:20:00 EST, Supply Start Date: 04/29/20 Status: Ordered pantoprazole 40 mg oral delayed release tablet 1 tablet, By Mouth, Daily, FOR stomach acid., # 30 tablet, 0 Refills, Maintenance, 04/16/20 11:09:00 EST, 168, cm, 04/16/20 8:30:00 EST, Height, 98.7, kg, 04/11/20 2:10:00 EST, Dry Weight Start Date: 04/16/20 Status: Ordered recliner recliner, See Instructions, # 1 each, Refills 0, Tot. Refills 0, Maintenance, use daily, Dx: CHF I50.9 Please fax to [facility] , 04/29/20 17:20:00 EST, Supply Start Date: 04/29/20 Status: Ordered sacubitril-valsartan 97 mg-103 mg oral tablet 1 tablet, By Mouth, 2 times a day, # 60 tablet, 5 Refills, Maintenance, 03/05/20 16:50:00 EST, Tablet, [facility] [id number], this is an increased, 1 tablet By Mouth 2 times a day,x30 days, 168, cm, 02/10/20 5:58:00 EST, Heigh... Start Date: 03/05/20 Stop Date: 09/01/20 Status: Ordered Senna 8.6 mg oral tablet 8.6 mg, 1, tablet, By Mouth, Daily, Refills 0, Maintenance, 12/17/19 11:57:00 EDT, Tablet Start Date: 12/17/19 Status: Ordered torsemide 20 mg oral tablet 1 tablet = 20 mg, By Mouth, Daily, # 30 tablet, 1 Refills, Maintenance, 04/16/20 11:09:00 EST, Tablet, [facility] [id number], Partial fill upon patient request if the prescription is for a schedule II opioid drug., 168, cm, 01... Start Date: 04/16/20 Stop Date: 04/11/21 Status: Ordered Zenpep 10,000 units-32,000 units-42,000 units oral delayed release capsule 1 capsule, By Mouth, 3 times a day, # 90 capsule, 0 Refills, Maintenance, 04/16/20 11:09:00 EST, [facility] [id number], 1 capsule By Mouth 3 times a day, 168, cm, 04/16/20 8:30:00 EST, Height, 98.7, kg, 04/11/20 2:10:00 Mary MICHAEL. Start Date: 04/16/20 Status: Ordered Problem List Condition Effective Dates Status Health Status Inform ant Asthma(Confirmed) Active Atrophic vaginitis(Confirmed) Active Biventricular HF (heart fail ure, EF 20-30%)(Confirmed) Active CS (cervical spondylosis)(Confirmed) Active Chronic kidney disease (CKD)(Confirmed) Active Chronic low back pain w/Bila teral LE Radiculopathy (Lumbar DDD, MRI 03/2011)(Confirmed) Active History of Chronic pancreati tis & Pseudocyst(Confirmed) Active Cirrhosis of liver (Steatohepatitis/NAFLD, Suspected GI Sarcoidosis but no findings sarcoid 2012 liver biopsy)(Confirmed) Active Diabetes(Confirmed) Active Dyshidrotic eczema(Confirmed) Active General medical(Confirmed) Active History of splenectomy(Confirmed) Active H/O tubal ligation(Confirmed) 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 Started at age: 15 Years. Sex
--- OUTSIDE RECORDS SUMMARY | 2023-02-09 22:33 | XMS_ITS | Continuity of Care Document ---
Author Name Unknown Organization [facility] ter Address [address] [place] [id number]- Care Team Providers Care Organic Extractions Technician Name Role Phone Dario HAYDEN, Jaki Primary Care Physician [phone] [facility]counter [facility] Date(s): 04/10/20 - 04/16/[address] [address] Discharge Disposition: A-D/C Home Attending Physician: Luis Angel Jacob MD Admitting Physician: Delaney Briceño MD Referring Physician: Not on Staff, Referring MD Allergies, Adverse Reactions, Alerts Substance Reaction Severity [...] Given Permanently Refused 1Admin Note: VIS GIVEN [id number] 2Admin Note: VIS GIVEN 2008-12 3Admin Note: vis 4Admin Note: vis 02/06/08 Medications acetaminophen 325 mg oral tablet 1, tablet, By Mouth, 4 times a day, PRN, no MORE THAN 4 TABLETS PER DAY., # 60 tablet, Refills 1, Tot. Refills 1, Maintenance, NEEDED, 03/06/20 9:09:00 EST, Route to Pharmacy Electronically, [place], [place] - [id number], 168, cm,... Start Date: 03/06/20 Status: Ordered Alcohol Wipes See Instructions, # [...] EDT, Suppository Start Date: 12/17/19 Status: Ordered carvedilol 6.25 mg oral tablet 6.25 mg, Tablet, By Mouth, 04/15/20 21:00:00 EST Start Date: 04/15/20 Stop Date: 04/15/20 Status: Completed clozapine 100 mg oral tablet 1 tablet = 100 mg, By Mouth, Daily in AM, # 30 tablet, 0 Refills, Maintenance, 04/16/20 11:06:00 EST, Tablet, [facility] [id number], Partial fill upon patient request if the prescription is for a schedule II opioid drug., 168,... Start Date: 04/16/20 Status: Ordered clozapine 50 mg oral tablet 3 tablet = 150 mg, By Mouth, Daily at bedtime, # 90 tablet, 0 Refills, Maintenance, 04/16/20 11:06:00 EST, Tablet, [facility] [id number], Partial fill upon patient request ifthe prescription is for a schedule II opioid drug.,... Start Date: 04/16/20 Status: Ordered Coreg 6.25 mg oral tablet 6.25 mg, 1, tablet, By Mouth, 2 times a day, # 60 tablet, Refills 0, Tot. Refills 0, Maintenance, 04/16/20 11:05:00 EST, Route to Pharmacy Electronically, [facility] [id number], Partial fill upon patient request, 168, cm, 03/22... Start Date: 04/16/20 Status: Ordered docusate sodium 100 mg oral capsule = 100 mg, By Mouth, 2 times a day, PRN Constipation., # 60 capsule, 3 Refills, Maintenance, 02/29/20 15:13:00 EST, Capsule, [facility] [id number], Partial fill upon patient request if the prescription is for a schedule II opio... Start Date: 02/29/20 Stop Date: 06/28/20 Status: Ordered gabapentin 100 mg oral capsule 200 mg, Capsule, By Mouth, 04/16/20 9:00:00 EST Start Date: 04/16/20 Stop Date: 04/16/20 Status: Completed gabapentin 100 mg oral capsule 200 mg, 2, capsule, By Mouth, 2 times a day, # 120 capsule, Refills 0, Tot. Refills 0, Maintenance,04/16/20 11:06:00 EST, Route to Pharmacy Electronically, [facility] [id number], Partial fill upon patient request if the presc... Start Date: 04/16/20 Status: Ordered Glucose Test Strips See Instructions, [...] mL, 1 Refills, Maintenance, 04/16/20 11:07:00 EST, [facility], [facility] [id number],... Start Date: 04/16/20 Status: Ordered lactulose 10 gm/15 ml oral syrup 30 mL, By Mouth, 2 times a day, # 581 mL, 0 Refills, Acute, 03/25/20 11:49:00 EST, [facility],10, TAKE 30 ML BY MOUTH 2 (two) times a day, 168, cm, 02/10/20 5:58:00 EST, Height, 106.8, kg, 10/28/19 9:52:00 EDT, Dry Weight Start Date: 03/25/20 Status: Ordered Lancets See Instructions, # 1 kit, Maintenance, 3 times a day before meals and bedtime, 04/16/20 11:23:00 EST, Supply, 168, cm, 04/16/20 8:30:00 EST, Height, 98.7, kg, 04/11/20 2:10:00 EST, Dry Weight Start Date: 04/16/20 Status: Ordered Lantus Solostar Pen 100 units/mL subcutaneous solution = 14 units, Subcutaneous Injection, Daily at bedtime, # 10 mL, 1 Refills, Maintenance, 04/16/20 11:07:00 EST, Solution, [facility], [facility] [id number], 168, cm, 04/16/20 8:30:00 EST, Height, 98.7, kg, 04/11/20 2:10:00 EST, Dry Weight Start Date: 04/16/20 Status: Ordered loratadine 10 mg oral tablet See Instructions, TAKE ONE TABLET BY MOUTH DAILY, # 30 tablet, Refills 2, Tot. Refills 2, 02/01/20 16:32:00 EST, Instructions Replace Required Details, Route to Pharmacy Electronically, [facility], [facility] [id number], 168, cm, 12/17/19... Start Date: 02/01/20 Status: Ordered Maalox Plus Liquid 30 mL, By Mouth, Daily, PRN Dyspepsia, 0 Refills, Maintenance, 12/17/19 11:57:00 EDT, Suspension Start Date: 12/17/19 Status: Ordered MiraLax = 17 Gm, By Mouth, Daily, 0 Refills, Maintenance, 10/11/19 0:34:00 EDT Start Date: 10/11/19 Status: Ordered multivitamin Multiple Vitamins oral tablet 1 tablet, By Mouth, Daily, # 90 tablet, 1 Refills, Maintenance, 08/07/19 14:23:00 EDT, Tablet, [place], [place] -, 1 tablet By Mouth Daily, 166, cm, 05/28/19 11:08:00 EDT, Height, 91.8, kg, 02/23/19 17:03:00 EST, Dry Weight Start Date: 08/07/19 Status: Ordered Nicotine = 7 mg, Topically, Daily, 0 Refills, Maintenance, 12/17/19 11:57:00 EDT, Patch Start Date: 12/17/19 Status: Ordered Nicotine 2 mg gum = 2 mg, Chew, Every hour, PRN Other, Nicotine Cravings, # 160 each, 0 Refills, Maintenance, 04/16/20 11:08:00 EST, Gum, [place], [place] - [id number], Partial fill upon patient request if the prescription is for a schedule II opioid d... Start Date: 04/16/20 Status: Ordered Orthopedic Shoes Orthopedic Shoes, See Instructions, # 1 each, Refills 0, Tot. Refills 0, Maintenance, Please dispense 1 pair, Use daily, Dx: E11.65, I50.9, I27.20 Please fax to [facility] , 04/02/20 16:54:00 EST, Supply Start Date: 04/02/20 Status: Ordered pantoprazole 40 mg oral delayed [...] CHF I50.9 Please fax to [facility] , 04/02/20 16:54:00 EST, Supply Start Date: 04/02/20 Status: Ordered sacubitril-valsartan 97 mg-103 mg oral tablet 1 tablet, By Mouth, 2 times a day, # 60 tablet, 5 Refills, Maintenance, 03/05/20 16:50:00 EST, Tablet, [facility] [id number], this is an increased, 1 tablet By [...] 1 Refills, Maintenance, 04/16/20 11:09:00 EST, Tablet, [facility] [id number], Partial fill upon patient request if the prescription is for a schedule II opioid drug., 168, cm, 01... Start Date: 04/16/20 Stop Date: 04/11/21 Status: Ordered Zenpep 10,000 units-32,000 units-42,000 units oral delayed release capsule 1 capsule, By Mouth, 3 times a day, # 90 capsule, 0 Refills, Maintenance, 04/16/20 11:09:00 EST, [facility] [id number], 1 capsule By Mouth 3 times a day, 168, cm, 04/16/20 8:30:00 EST, Height, 98.7, kg, 04/11/20 2:10:00 EST, D... 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 [facility] [phone](Confirmed) Active History of cholecystectomy(Confirmed) Active Hypertension(Confirmed) Active Incisional hernia(Confirmed) Active Nicotine dependence(Confirmed) Active Obesity (BMI 30.0-34.9)(Confirmed) Active Pulmonary HTN, Severe(Confirmed) Active Steatohepatitis (w/Stage III Fibrosis, Liver Biopsy 05/2012)(Confirmed) Active Heart failure with reduced e jection fraction(Confirmed) Active Results Radiology Reports * Exam Date Time Procedure Performing Provider Status 04/10/20 9:53 AM Chest Portable Alondra Johnson; Angelo ( Verified) Notes: (Chest Portable) Reason For Exam: Shortness of Breath RESULT: Chest Portable Chest Portable REASON: Shortness of Breath; Clinical Question(s): CHF COMPARISON: 12/04/2019, 11/12/2019. FINDINGS: LUNGS AND PLEURA: Low lung volumes. Interstitial markings are somewhat indistinct and prominent.. Patchy airspace opacities in bilateral lower lungs and right upper lobe. No definite septal lines. No pleural effusion. No pneumothorax. HEART, MEDIASTINUM AND MICHELLE: Heart is normal in size. Normal upper mediastinal and hilar contour. BONES AND SOFT TISSUES: No acute abnormality. Embolization coils in the left upper quadrant. IMPRESSION: Findings as above, either representing developing pulmonary edema pattern, or atypical pneumonia. Most recent radiograph 12/04/2019 demonstrated a similar pattern. I have personally reviewed the images and I agree with this report. WSN: [id number] Ordering Physician: Freddy Levi MD Dictated By: Roger Zuniga MD Dictated Date/Time: 04/10/20 10:06 a Reviewed By: Lasha Weber MD Signed By: Lasha Weber MD Signed Date/Time: 04/10/20 10:11 am Transcribed By: CSSussy Transcribed Date/Time: 04/10/20 9:59 am Vital Signs Most recent to oldest [Reference Range]: 1 2 3 Height 168 cm (04/16/20 8:30 AM) 168 cm (04/16/20 5:41 AM) 168 cm (04/15/20 7:43 AM) Weight 98.7 kg (04/11/20 2:10 AM) Oxygen Saturation [94-100 %] 96 % (04/16/20 8:30 AM) 100 % (04/16/20 5:41 AM) 98 % (04/15/20 8:51 PM) Pulse Rate [55-90 bpm] 96 bpm *H* (04/16/20 8:30 AM) 97 bpm *H* (04/16/20 5:41 AM) 100 bpm *H* (04/15/20 9:03 PM) Body Mass Index [18.5-24.99] 34.97 *>HHI* (04/11/20 2:10 AM) Blood Pressure [90-138/55-84 mm Hg] 116/82mm Hg (04/16/20 8:30 AM) 109/70mm Hg (04/16/20 5:41 AM) 112/68mm Hg (04/15/20 9:03 PM) Respiratory Rate [16-30 br/min] 16 br/min (04/16/20 8:30 AM) 16 br/min (04/16/20 6:50 AM) 18 br/min (04/16/20 5:50 AM) Temperature [96.8-100.4 DegF] 97.6 DegF (04/16/20 8:30 AM) 98.2 DegF (04/16/20 5:41 AM) 98.1 DegF (04/15/20 8:51 PM) Liters per Minute 3 L/min (04/11/20 3:00 PM) 2 L/min (04/11/20 10:15 AM) 3 L/min (04/11/20 12:28 AM) Mode of Delivery (Oxygen) Room air (04/16/20 8:30 AM) Room air (04/16/20 5:41 AM) Room air (04/15/20 8:51 PM) Blood pressure sites Arm, right (04/16/20 8:30 AM) Arm, left (04/16/20 5:41 AM) Arm, left (04/15/20 8:51 PM) Temperature Route Oral (04/16/20 8:30 AM) Oral (04/16/20 5:41 AM) Oral (04/15/20 8:51 PM) Dry Weight 98.7 kg (04/11/20 2:10 AM) Weight Obtained Via Bed scale (04/11/20 2:10 AM) Dry Weight Obtained Via Bed scale (04/11/20 2:10 AM) Social History Social History Type Response Tobacco Use: 4 or less cigar ettes(less than 1/4 pack)/day in last 30 days. Started at age: 15 Years. Sex
--- OUTSIDE RECORDS SUMMARY | 2023-02-09 22:33 | XMS_ITS | Continuity of Care Document ---
Author Name Unknown Organization [facility] Address [address] [place] [address]- Care Team Providers Care Dentist Name Role Phone Jaki Bishop MD Primary Care Physician Encounter [facility] Date(s): 01/26/19 - 03/25/19 [facility] [address] [place] [id number] [facility] Attending Physician: Jonathan Caraballo MD Admitting Physician: Jonathan Caraballo MD Referring Physician: Jaki Bishop MD Allergies, Adverse Reactions, Alerts Substance Reaction Severity Status acetaminophen Active predniSONE Dizzinesses 02-JAN-2016 21:52:27<$> Active Zyprexa Hypertension Active NSAIDs Active Immunizations Given and Recorded Vaccine Date Status Refusal Reason influenza virus vaccine, inactivated 12/14/17 Give n [...] vaccine, inactivated 02/03/13 Not Given Patient Refuses 1Admin Note: VIS GIVEN [id number] 2Admin Note: VIS GIVEN 2008- 3Admin Note: vis 4Admin Note: vis 02/06/08 Medications acetaminophen 325 mg oral tablet 325 mg, 1, tablet, By Mouth, 4 times a day, PRN, No more than 4 tablets per day, # 60 tablet, Refills 11, Tot. Refills 11, Acute 10/05/19 12:00:00 EDT, for pain, 10/03/18 14:57:21 EDT, Route to Pharmacy Electronically, [id number]... Start Date: 10/03/18 Stop Date: 10/05/19 Status: Ordered Cane See Instructions, # 1 each, Maintenance, Use to prevent fall. Diagnosis: Chronic Low Back Pain, ICD10 M54.5, 07/19/18 9:19:33 EDT, Compound Start Date: 07/19/18 Status: Ordered clozapine 100 mg oral tablet TAKE ONE TABLET BY MOUTH IN THE MORNING AND TAKE ONE TABLET BY MOUTH AT BEDTIME (WITH THE 50MG TABLET AT BEDTIME) Start Date: 02/23/19 Status: Ordered clozapine 50 mg oral tablet 1 tablet = 50 mg, By Mouth, Daily at bedtime, with 100mg tablet for total dose of 150mg, 0 Refills,Maintenance, 11/20/15 18:50:19 EDT, Tablet Start Date: 11/20/15 Status: Ordered Coreg 25 mg oral tablet 25 mg, 1, tablet, By Mouth, 2 times a day, # 60 tablet, Refills 6, Tot. Refills 6, Maintenance, 07/19/18 9:04:24 EDT, Route to Pharmacy Electronically, [id number], [facility] [id number] Start Date: 07/19/18 Status: Ordered docusate sodium 100 mg oral capsule 100 mg, 1, capsule, By Mouth, 2 times a day, # 60 capsule, Refills 11, Tot. Refills 11, Maintenance, 02/21/19 14:45:44 EST, Route to Pharmacy Electronically, [id number], [facility] [place], [place] -, 168, cm, 02/14/19... Start Date: 02/21/19 Stop Date: 02/16/20 Status: Ordered Ensure (Vanilla Flavor) Ensure (Vanilla Flavor), See Instructions, # 60 each, Refills 11, Tot. Refills 11, Maintenance, Drink 1 can BID. Diagnosis: Chronic Pancreatitis, Cirrhosis. ICD10 K86.1, K74.6, Fax to Anna( [facility], #[phone]), 12/06/17 13:28:49 EDT, Compound Start Date: 12/06/17 Status: Ordered gabapentin 100 mg oral capsule 100 mg, 1, capsule, By Mouth, 2 times a day, # 60 capsule, Refills 6, Tot. Refills 6, Maintenance, 07/19/18 9:05:59 EDT, Route to Pharmacy Electronically, [id number], [facility] [id number] Start Date: 07/19/18 Stop Date: 02/14/19 Status: Ordered insulin lispro 100 u/ml subcutaneous injection See Instructions, 4 Units for bood sugar above 120 mg/dl and then add 2 Units for every 50 mg/dl rise above 120. Three times a day before meals., # 10 mL, 0 Refills, Maintenance, 03/01/19 12:22:17 EST Start Date: 03/01/19 Status: Ordered Lantus 100 u/ml subcutaneous solution See Instructions, 32 Units in am Subcutaneous, # 15 mL, 0 Refills, Maintenance, 03/01/19 12:24:34 EST Start Date: 03/01/19 Status: Ordered multivitamin Multiple Vitamins oral tablet 1 tablet, By Mouth, Daily, # 90 tablet, 6 Refills, Maintenance, 07/19/18 9:06:37 EDT, Tablet, 1 tablet By Mouth Daily Start Date: 07/19/18 Status: Ordered pantoprazole 40 mg oral delayed release tablet See Instructions, # 30 tablet, Refills 2 Tot. Refills 2, TAKE 1 TABLET BY MOUTH DAILY FOR STOMACH ACID, [facility] #[id number] Start Date: 11/28/18 Status: Ordered Please draw CBC with dif (for ANC) weekly and fax results to: Attn Dr. Mariano Andrade, Outpatient Psychi Please draw CBC with dif (for ANC) weekly and fax results to: Attn Dr. Mariano Andrade, Outpatient Psychiatry, at [phone]., See Instructions, # 1 application, Refills 0, Tot. Refills 0, Maintenance, Please draw CBC with dif (for ANC) weekly and fax re... Start Date: 11/21/15 Status: Ordered sacubitril-valsartan 97 mg-103 mg oral tablet 1 tablet, By Mouth, 2 times a day, # 60 tablet, 5 Refills, Maintenance, 01/12/19 13:21:12 EDT, Tablet, this is an increased, 1 tablet By Mouth 2 times a day Start Date: 01/12/19 Status: Ordered Seated Walker with wheels Seated Walker with wheels, See Instructions, # 1 application, Refills 0, Tot. Refills 0, Maintenance, Diagnosis: Impaired Mobility, ICD10 Z74.09, 08/24/17 15:51:51 EDT, Compound Start Date: 08/24/17 Status: Ordered Walker with wheels Walker with wheels, See Instructions, # 1 application, Refills 0, Tot. Refills 0, Maintenance, Walker with wheels, 08/18/17 14:34:39 EDT, Compound Start Date: 08/18/17 Status: Ordered Zenpep 10,000 units-32,000 units-42,000 units oral delayed release capsule 1 capsule, By Mouth, 3 times a day, # 90 capsule, 6 Refills, Maintenance, 10/11/18 17:53:17 EDT, 1 capsule By Mouth 3 times a day Start Date: 10/11/18 Status: Ordered Problem List Condition Effective Dates [...] Suspected GI Sarcoidosis but no findings sarcoid 2013 liver biopsy)(Confirmed) Active Dyshidrotic eczema(Confirmed) Active General medical(Confirmed) Active History of splenectomy(Confirmed) Active H/O tubal ligation(Confirmed) Active 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 Started at age: 15 Years. Sex
--- OUTSIDE RECORDS SUMMARY | 2023-02-09 22:33 | XMS_ITS | Continuity of Care Document ---
Author Name Unknown Organization [facility] Address [address] [place] [address]- Care Team Providers Care Dry Finisher Name Role Phone Dario HAYDEN, Jaki Primary Care Physician Encounter [facility] Date(s): 10/10/19 - 11/09/19 [facility] [address] [place] [address]- [facility] Allergies, Adverse Reactions, Alerts Substance Reaction Severity [...] Given Permanently Refused 1Admin Note: VIS GIVEN [id number] 2Admin Note: VIS GIVEN 2008-12 3Admin Note: vis 4Admin Note: vis 02/06/08 Medications acetaminophen 325 mg oral tablet 1, tablet, By Mouth, 4 times a day, PRN, no MORE THAN 4 TABLETS PER DAY., # 60 tablet, Refills 2, Tot. Refills 0, Acute, NEEDED, 08/07/19 23:17:00 EDT, Route to Pharmacy Electronically, [facility], 166, cm, 05/28/19 11:08:00 EDT, Height, 91.8,... Start Date: 08/07/19 Status: Ordered acetaminophen 325 mg oral tablet 650 mg, 2, tablet, 3 times a day, PRN, Refills 0, Maintenance, as needed for fever, 10/10/19 23:41:00 EDT Start Date: 10/10/19 Status: Ordered Admelog SoloStar 100 units/mL injectable solution See Instructions, 0 Refills, Maintenance, 10/10/19 23:41:00 EDT Start Date: 10/10/19 Status: Ordered Alcohol Wipes See Instructions, # 100 each, Refills 11, Tot. Refills 11, Maintenance, Check fasting glucose levels TID daily. Diagnosis: Type II DM, ICD10 E11.9, 06/07/19 15:00:00 EDT, Compound, 166, cm, 05/28/19 11:08:00 EDT, Height, 91.8, kg, 02/23/19 17:03:00 E... Start Date: 06/07/19 Status: Ordered benztropine 0.5 mg oral tablet 0.5 mg, 1, tablet, By Mouth, Daily at bedtime, Refills 0, Maintenance, 10/10/19 23:41:00 EDT Start Date: 10/10/19 Status: Ordered Cane See Instructions, # 1 each, Maintenance, Use to prevent fall. Diagnosis: Chronic Low Back Pain, ICD10 M54.5, 07/19/18 9:19:33 EDT, Compound Start Date: 07/19/18 Status: Ordered carvedilol 25 mg oral tablet 25 mg, 1, tablet, 2 times a day, Refills 0, Maintenance, 10/10/19 23:41:00 EDT Start Date: 10/10/19 Status: Ordered clozapine 100 mg oral tablet TAKE ONE TABLET BY MOUTH IN THE MORNING AND TAKE ONE TABLET BY MOUTH AT BEDTIME (WITH THE 50MG TABLET AT BEDTIME) Start Date: 02/23/19 Status: Ordered clozapine 50 mg oral tablet See Instructions, 150 mg daily at bedtime, 0 Refills, Maintenance, 10/10/19 23:40:00 EDT, Tablet Start Date: 10/10/19 Status: Ordered clozapine 50 mg oral tablet 1 tablet = 50 mg, By Mouth, Daily at bedtime, with 100mg tablet for total dose of 150mg, 0 Refills,Maintenance, 11/20/15 18:50:19 EDT, Tablet Start Date: 11/20/15 Status: Ordered Coreg 25 mg oral tablet 25 mg, 1, tablet, By Mouth, 2 times a day, # 60 tablet, Refills 5, Tot. Refills 5, Maintenance, 08/07/19 14:24:00 EDT, Route to Pharmacy Electronically, [place], [place] -, 166, cm, 05/28/19 11:08:00 EDT, Height, 91.8, kg, 02/23/19 17... Start Date: 08/07/19 Status: Ordered Daily Multiple Vitamins oral tablet 1 tablet, Daily, 0 Refills, Maintenance, 10/10/19 23:41:00 EDT Start Date: 10/10/19 Status: Ordered Docusate = 100 mg, 2 times a day, 0 Refills, Maintenance, 10/11/19 0:28:00 EDT Start Date: 10/11/19 Status: Ordered docusate sodium 100 mg oral capsule 100 mg, 1, capsule, By Mouth, 2 times a day, # 60 capsule, Refills 11, Tot. Refills 11, Maintenance, 02/21/19 14:45:44 EST, Route to Pharmacy Electronically, [id number], [place], [place] -, 168, cm, 02/14/19... Start Date: 02/21/19 Stop Date: 02/16/20 Status: Ordered Entresto 97 mg-103 mg oral tablet 1 tablet, 2 times a day, 0 Refills, Maintenance, 10/10/19 23:41:00 EDT Start Date: 10/10/19 Status: Ordered Freestyle Lite Lancets See Instructions, # 100 each, Refills 11, Tot. Refills 11, Maintenance, Check fasting glucose levels TID daily. Diagnosis: Type II DM, ICD10 E11.9, 06/07/19 15:00:00 EDT, Compound, 166, cm, 05/28/19 11:08:00 EDT, Height, 91.8, kg, 02/23/19 17:03:00 E... Start Date: 06/07/19 Status: Ordered Freestyle Lite Test Strips See Instructions, # 100 each, Refills 11, Tot. Refills 11, Maintenance, Check fasting glucose levels TID daily. Diagnosis: Type II DM, ICD10 E11.9, 06/07/19 15:00:00 EDT, Compound, 166, cm, 05/28/19 11:08:00 EDT, Height, 91.8, kg, 02/23/19 17:03:00 E... Start Date: 06/07/19 Status: Ordered gabapentin 100 mg oral capsule 200 mg, 2, capsule, 2 times a day, Refills 0, Maintenance, 10/10/19 23:41:00 EDT Start Date: 10/10/19 Status: Ordered gabapentin 100 mg oral capsule 200 mg, 2, capsule, By Mouth, 2 times a day, # 120 capsule, Refills 6, Tot. Refills 6, Maintenance,03/27/19 16:10:00 EST, Route to Pharmacy Electronically, [facility] #[id number], 166, cm, 03/27/19 15:26:00 EST, Height, 91.8, kg, 02/23/19 17:03:... Start Date: 03/27/19 Stop Date: 10/23/19 Status: Ordered GaviLyte-G oral powder for reconstitution 0 Refills, Maintenance, 10/10/19 23:41:00 EDT Start Date: 10/10/19 Status: Ordered Glucerna (Vanilla Flavor) Glucerna (Vanilla Flavor), See Instructions, # 60 each, Refills 11, Tot. Refills 11, Maintenance, Drink 1 can BID. 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 Fax to Anna ( [facility], #[phone]), 07/26/19 15... Start Date: 07/26/19 Status: Ordered Golytely - oral powder for reconstitution See Instructions, split prep, # 4,000 mL, 0 Refills, Maintenance, 09/24/19 14:15:00 EDT, REC Powder, [place], [place] -, split prep, 166, cm, 09/24/19 14:00:00 EDT, Height, 91.8, kg,02/23/19 17:03:00 EST, Dry Weight Start Date: 09/24/19 Status: Ordered haloperidol 2 mg/mL oral concentrate 1 mL = 2 mg, 2 times a day, 0 Refills, Maintenance, 10/10/19 23:41:00 EDT Start Date: 10/10/19 Status: Ordered Humalog Kwik Pen 100 units/mL subcutaneous injection See Instructions, 4 Units for bood sugar above 120 mg/dl and then add 2 Units for every 50 mg/dl rise above 120. Three times a day before meals., # 15 mL, 6 Refills, Maintenance, 05/04/19 12:52:00 EST, [place], [place] - , Humalog ins... Start Date: 05/04/19 Status: Ordered Lantus Solostar Pen 100 units/mL subcutaneous solution See Instructions, 42, 0 Refills, Maintenance, 10/10/19 23:41:00 EDT Start Date: 10/10/19 Status: Ordered Lantus Solostar Pen 100 units/mL subcutaneous solution See Instructions, This is an increase in dose. 32u QAM & 42 units QHS. Subcutaneous Injection Daily 30 days, # 5 each, 6 Refills, Maintenance, 08/17/19 14:52:00 EDT, Dry Weight Start Date: 08/17/19 Status: Ordered loratadine 10 mg oral tablet Refills 0, Maintenance, 10/10/19 23:41:00 EDT Start Date: 10/10/19 Status: Ordered MiraLax = 17 Gm, By Mouth, Daily, 0 Refills, Maintenance, 10/11/19 0:34:00 EDT Start Date: 10/11/19 Status: Ordered MiraLax oral powder for reconstitution = 17 Gm, By Mouth, 2 times a day, PRN Other, dissolve in water before taking. goal 2-3 bowel movements daily, # 527 Gm, 2 Refills, Maintenance, 07/26/19 8:25:00 EDT, REC Powder, [place], [place] -, 17 Gm By Mouth 2 times a day,PRN:Oth... Start Date: 07/26/19 Status: Ordered MiraLax Powder = 17 Gm, By Mouth, 2 times a day, 0 Refills, Maintenance, 10/11/19 0:39:00 EDT Start Date: 10/11/19 Status: Ordered multivitamin Multiple Vitamins oral tablet 1 tablet, By Mouth, Daily, # 90 tablet, 1 Refills, Maintenance, 08/07/19 14:23:00 EDT, Tablet, [place], [place] -, 1 tablet By Mouth Daily, 166, cm, 05/28/19 11:08:00 EDT, Height, 91.8, kg, 02/23/19 17:03:00 EST, Dry Weight Start Date: 08/07/19 Status: Ordered pantoprazole 40 mg oral delayed release tablet 1 tablet = 40 mg, Daily, 0 Refills, Maintenance, 10/10/19 23:41:00 EDT Start Date: 10/10/19 Status: Ordered pantoprazole 40 mg oral delayed release tablet 1 tablet, By Mouth, Daily, FOR stomach acid., # 30 tablet, 2 Refills, Maintenance, 10/29/19 14:29:00 EDT, 168, cm, 10/29/19 7:27:00 EDT, Height, 106.8, kg, 10/28/19 9:52:00 EDT, Dry Weight Start Date: 10/29/19 Status: Ordered Pen [place], 31 G x 8 mm BD Ultra Fine III See Instructions, # 120 each, Refills 9, Tot. Refills 9, Maintenance, Use to inject insulin QID. Diagnosis: Type II DM, ICD10 E11.9, 06/07/19 10:10:00 EDT, Compound, 166, cm, 05/28/19 11:08:00 EDT, Height, 91.8, kg, 02/23/19 17:03:00 EST, Dry Weight Start Date: 06/07/19 Status: Ordered Please draw CBC with dif (for ANC) weekly and fax results to: Attn Dr. Mariano Andrade, Outpatient Psychi Please draw CBC with dif (for ANC) weekly and fax results to: Attn Dr. Mariano Andrade, Outpatient Psychiatry, at [phone]., See Instructions, # 1 application, Refills 0, Tot. Refills 0, Maintenance, Please draw CBC with dif (for ANC) weekly and fax re... Start Date: 11/21/15 Status: Ordered rollator walker rollator walker, See Instructions, # 1 each, Refills 0, Tot. Refills 0, Maintenance, Rollator walker Diagnosis: fall, difficulty ambulation, 10/11/19 10:45:00 EDT, Supply Start Date: 10/11/19 Status: Ordered sacubitril-valsartan 97 mg-103 mg oral tablet 1 tablet, By Mouth, 2 times a day, # 60 tablet, 5 Refills, Maintenance, 08/27/19 7:36:00 EDT, Tablet, [facility] [place] [place] -, this is an increased, 1 tablet By Mouth 2 times a day,x30 days, 166, cm, 05/28/19 11:08:00 EDT, Height, 91.8, kg... Start Date: 08/27/19 Stop Date: 02/23/20 Status: Ordered Seated Walker with wheels Seated Walker with wheels, See Instructions, # 1 application, Refills 0, Tot. Refills 0, Maintenance, Diagnosis: Impaired Mobility, ICD10 Z74.09, 08/24/17 15:51:51 EDT, Compound Start Date: 08/24/17 Status: Ordered spironolactone 25 mg oral tablet 25 mg, 1, tablet, Daily, Refills 0, Maintenance, 10/10/19 23:41:00 EDT Start Date: 10/10/19 Status: Ordered spironolactone 25 mg oral tablet 25 mg, 1, tablet, By Mouth, Daily, # 90 tablet, Refills 11, Tot. Refills 11, Maintenance, 04/20/19 10:38:00 EST, Route to Pharmacy Electronically, [facility] #[id number], 166, cm, 04/20/19 10:17:00 EST, Height, 91.8, kg, 02/23/19 17:03:00 EST, Start Date: 04/20/19 Status: Ordered torsemide 20 mg oral tablet 2 tablet = 40 mg, Daily, 0 Refills, Maintenance, 10/10/19 23:41:00 EDT Start Date: 10/10/19 Status: Ordered torsemide 20 mg oral tablet 2 tablet = 40 mg, By Mouth, Daily, # 180 tablet, 11 Refills, Maintenance, 04/20/19 10:38:00 EST, Tablet, [facility] #[id number], Replaces lower dose, 166, cm, 04/20/19 10:17:00 EST, Height, 91.8, kg, 02/23/19 17:03:00 EST, Dry Weight Start Date: 04/20/19 Status: Ordered Walker with wheels Walker with wheels, See Instructions, # 1 application, Refills 0, Tot. Refills 0, Maintenance, Walker with wheels, 08/18/17 14:34:39 EDT, Compound Start Date: 08/18/17 Status: Ordered Zenpep 10,000 units-32,000 units-42,000 units oral delayed release capsule See Instructions, 0 Refills, Maintenance, 10/10/19 23:41:00 EDT Start Date: 10/10/19 Status: Ordered Zenpep 10,000 units-32,000 units-42,000 units [...] no findings sarcoid 2013 liver biopsy)(Confirmed) Active Diabetes(Confirmed) Active Dyshidrotic eczema(Confirmed) Active General medical(Confirmed) Active History of splenectomy(Confirmed) Active H/O tubal ligation(Confirmed) [facility] [phone](Confirmed) Active History of cholecystectomy(Confirmed) Active Hypertension(Confirmed) Active [...]
--- OUTSIDE RECORDS SUMMARY | 2023-02-09 22:33 | XMS_ITS | Continuity of Care Document ---
Author Name Unknown Organization [facility] Address [address] [place] [address]- Care Team Providers Care Basic Sciences Dean Name Role Phone Jaki Bishop MD Primary Care Physician Encounter [facility] Date(s): 01/23/21 - 02/22/[address] [address]- Allergies, Adverse Reactions, Alerts Substance Reaction Severity Status predniSONE Dizzinesses 02-JAN-2016 21:52:27<$> Active Zyprexa Hypertension [...] to COVID vaccine 2Admin Note: VIS GIVEN [id number] 3Admin Note: VIS GIVEN 2008- 4Admin Note: vis 5Admin Note: vis 02/06/08 Medications acetaminophen 325 mg oral tablet 650 mg, By Mouth, Every 6 hours, PRN, /Headache, Refills 0, Maintenance, Pain , Mild, 09/26/20 21:44:00 EDT, Partial fill upon patient request if the prescription is for a schedule II opioid drug. Start Date: 09/26/20 Status: Ordered clozapine 50 mg oral tablet 1 tablet = 50 mg, By Mouth, 2 times a day, Rx'd per Psych, # 60 tablet, 0 Refills, Maintenance, 02/06/21 19:53:00 EST, Tablet, Partial fill upon patient request if the prescription is for a schedule II opioid drug. Start Date: 02/06/21 Status: Ordered Coreg 12.5 mg oral tablet 12.5 mg, 1, tablet, By Mouth, 2 times a day, # 60 tablet, Refills 5, Tot. Refills 5, Maintenance, 02/06/21 19:54:00 EST, Route to Pharmacy Electronically, [facility] [id number], Partial fill upon patient request if the prescri... Start Date: 02/06/21 Status: Ordered Insulin Lispro KwikPen 100 units/mL injectable solution See Instructions, TID Prior to meals << Sliding Scale Comments >> 120 - 169 3 units Call if less than 100 170 - 219 5 units 220 - 269 7 units 270 - 319 9 units 320 - 369 11 units Call if greater than 400 << Sliding Scale Comments >... Start Date: 02/06/21 Status: Ordered Lantus Solostar Pen 100 units/mL subcutaneous solution = 10 units, Subcutaneous Infusion, Daily, Discontinue Basaglar, # 12 mL, 5 Refills, Maintenance, 02/06/21 19:54:00 EST, [facility] [id number], Partial fill upon patient request if the prescription is for a schedule II opioid d... Start Date: 02/06/21 Stop Date: 08/05/21 Status: Ordered loratadine 10 mg oral tablet 10 mg, 1, tablet, By Mouth, Daily, # 30 tablet, Refills 0, Tot. Refills 0, Maintenance, 11/28/20 9:25:00 EDT, Route to Pharmacy Electronically, [facility], Partial fill upon patient request if the prescription is for a schedule II opioid... Start Date: 11/28/20 Status: Ordered Maalox Plus Liquid 30 mL, By Mouth, Every 8 hours, PRN Indigestion, 0 Refills, Maintenance, 08/28/20 16:23:00 EDT, Suspension, Partial fill upon patient request if the prescription is for a schedule II opioid drug. Start Date: 08/28/20 Status: Ordered magnesium oxide 400 mg oral tablet See Instructions, TAKE ONE TABLET BY MOUTH two (2) times a day, # 60 tablet, 0 Refills, [facility], 167.64, cm, 11/27/20 22:30:00 EDT, Height, 98.5, kg, 10/22/20 17:50:00 EDT, Dry Weight Start Date: 01/08/21 Status: Ordered Nicoderm C-Q Clear 14 mg/24 hr transdermal film, extended release 1 patch, Topically, Daily, for 30 days, # 30 patch, 0 Refills, Acute 03/18/21 13:06:00 EST, 02/16/21 13:06:00 EST, Patch, [facility], Partial fill upon patient request if the prescription is for a schedule II opioid drug., 166.6, cm, ... Start Date: 02/16/21 Stop Date: 03/18/21 Status: Ordered Nicotine 2 mg gum = 2 mg, Chew, Every 2 hours, PRN Other, for 6 week(s), Nicotine Cravings, # 40 each, 1 Refills, Acute 05/11/21 13:06:00 EST, 02/16/21 13:06:00 EST, Gum, [facility], Partial fill upon patient request if the prescription is for a schedule... Start Date: 02/16/21 Stop Date: 05/11/21 Status: Ordered olanzapine 20 mg oral tablet 1 tablet = 20 mg, By Mouth, Daily at bedtime, Rx'd per Psych, 0 Refills, Maintenance, 02/06/21 19:53:00 EST, Partial fill upon patient request if the prescription is for a schedule II opioid drug. Start Date: 02/06/21 Status: Ordered pancrelipase 10,000 units-32,000 units-42,000 units oral delayed release capsule 1 capsule, By Mouth, 3 times a day, with each meal and snack, # 90 capsule, 0 Refills, Maintenance,02/06/21 19:56:00 EST, CR Capsule, [place], [place] - [id number], Partial fill upon patient request if the prescription is for a sched... Start Date: 02/06/21 Stop Date: 03/08/21 Status: Ordered pantoprazole 40 mg oral delayed release tablet = 40 mg, By Mouth, Daily, # 30 tablet, 1 Refills, Maintenance, 11/28/20 9:26:00 EDT, EC Tablet, 167.64, cm, 11/27/20 22:30:00 EDT, Height, 98.5, kg, 10/22/20 17:50:00 EDT, Dry Weight Start Date: 11/28/20 Stop Date: 01/27/21 Status: Ordered sodium chloride 0.65% nasal spray 2 sprays, [place], Right, 4 times a day, PRN Other, dryness, # 1 each, 0 Refills, Maintenance, 11/28/20 9:27:00 EDT, Nasal [place], [facility], Partial fill upon patient request if the prescription is for a schedule II opioid drug., 2 sprays... Start Date: 11/28/20 Stop Date: 12/28/20 Status: Ordered thioridazine 50 mg oral tablet 1 tablet = 50 mg, By Mouth, 2 times a day, PRN Agitation. Rx'd per Psych, 0 Refills, Maintenance, 02/06/21 19:53:00 EST, Partial fill upon patient request if the prescription is for a schedule II opioid drug. Start Date: 02/06/21 Status: Ordered torsemide 20 mg oral tablet 1 tablet = 20 mg, By Mouth, Daily, # 30 tablet, 5 Refills, Maintenance, 02/06/21 19:56:00 EST, Tablet, [place], [place] - [id number], Partial fill upon patient request if the prescription is for a schedule II opioid drug., 167.64, cm,... Start Date: 02/06/21 Stop Date: 08/05/21 Status: Ordered Problem List Condition Effective Dates [...] Active H/O tubal ligation(Confirmed) Active BHN/BH CP Program Advisor/Janet Pandey [phone](Confirmed) Active History of cholecystectomy(Confirmed) Active Hypertension(Confirmed) Active Hypoxia(Confirmed) Active Incisional hernia(Confirmed) Active Nicotine dependence(Confirmed) Active Obese class I(Confirmed) [...]
--- OUTSIDE RECORDS SUMMARY | 2023-02-09 22:34 | XMS_ITS | Continuity of Care Document ---
Author Name Unknown Organization [facility] Address [address] [place] [address]- Care Team Providers Care Manpower Development Advisor Name Role Phone Dario HAYDEN, Jaki Primary Care Physician [facility] Date[facility]): 02/01/[facility] - 03/02/[address] [address]- Allergies, Adverse Reactions, Alerts Substance Reaction Severity [...] Given Permanently Refused 1Admin Note: VIS GIVEN [id number] 2Admin Note: VIS GIVEN 2008-12 3Admin Note: vis 4Admin Note: vis 02/06/08 Medications acetaminophen 325 mg oral tablet 1, tablet, By Mouth, 4 times a day, PRN, no MORE THAN 4 TABLETS PER DAY., # 60 tablet, Refills 1, Tot. Refills 0, Acute, NEEDED, 11/12/19 14:29:00 EDT, Route to Pharmacy Electronically, [facility], 168, cm, 11/12/19 9:05:00 EDT, Height, 106.8,... Start Date: 11/12/19 Status: Ordered bisacodyl 10 mg rectal suppository 1 supp = 10 mg, Rectally, 2 times a day, PRN Constipation, 0 Refills, Maintenance, 12/17/19 11:57:00 EDT, Suppository Start Date: 12/17/19 Status: Ordered clozapine 100 mg oral tablet 1 tablet = 100 mg, By Mouth, Daily in AM, 0 Refills, Maintenance, 12/17/19 12:14:00 EDT, Tablet Start Date: 12/17/19 Status: Ordered clozapine 50 mg oral tablet 3 tablet = 150 mg, By Mouth, Daily at bedtime, 0 Refills, Maintenance, 12/17/19 12:14:00 EDT, Tablet Start Date: 12/17/19 Status: Ordered Coreg 6.25 mg oral tablet 6.25 mg, 1, tablet, By Mouth, 2 times a day, # 180 tablet, Refills 0, Tot. Refills 0, Maintenance, 02/12/20 15:48:00 EST, Route to Pharmacy Electronically, [place], [place] - [id number], Partial fill upon patient request, 168, cm, ... Start Date: 02/12/20 Status: Ordered docusate sodium 100 mg oral capsule = 100 mg, By Mouth, 2 times a day, PRN Constipation., # 60 capsule, 3 Refills, Maintenance, 02/29/20 15:13:00 EST, Capsule, [place], [place] - [id number], Partial fill upon patient request if the prescription is for a schedule II opio... Start Date: 02/29/20 Stop Date: 06/28/20 Status: Ordered gabapentin 100 mg oral capsule 200 mg, 2, capsule, 2 times a day, Refills 0, Maintenance, 10/10/19 23:41:00 EDT Start Date: 10/10/19 Status: Ordered Insulin Lispro 2-10 units, Subcutaneous Injection, 3 times a day before meals, << Sliding Scale Comments >> 150 - 199 2 units Call if less than 100 200 - 249 4 units 250 - 299 6 units 300 - 349 8 units 350 - 399 10 units Call if greater than 400 <... Start Date: 12/17/19 Status: Ordered lactulose 10 gm/15 ml oral syrup 30 mL = 20 Gm, By Mouth, Daily, 0 Refills, Maintenance, 12/17/19 12:15:00 EDT, Syrup Start Date: 12/17/19 Status: Ordered Lantus Solostar Pen 100 units/mL subcutaneous solution = 10 units, Subcutaneous Injection, Daily at bedtime, # 10 mL, 0 Refills, Maintenance, 12/31/19 15:51:00 EDT, Solution Start Date: 12/31/19 Status: Ordered loratadine 10 mg oral tablet Refills 0, Maintenance, 10/10/19 23:41:00 EDT Start Date: 10/10/19 Status: Ordered loratadine 10 mg oral tablet See Instructions, TAKE ONE TABLET BY MOUTH DAILY, # 30 tablet, Refills 2, Tot. Refills 2, 02/01/20 16:32:00 EST, Instructions Replace Required Details, Route to Pharmacy Electronically, [place], [place] - [id number], 168, cm, 12/17/19... Start Date: 02/01/20 Status: [...] 1 Refills, Maintenance, 08/07/19 14:23:00 EDT, Tablet, [place], [place] -, 1 tablet By Mouth Daily, 166, cm, 05/28/19 11:08:00 EDT, Height, 91.8, kg, 02/23/19 17:03:00 EST, Dry Weight Start Date: 08/07/19 Status: Ordered Nicotine = 7 mg, Topically, Daily, 0 Refills, Maintenance, 12/17/19 11:57:00 EDT, Patch Start Date: 12/17/19 Status: Ordered Nicotine Gum 2 mg, Chew, Every hour, PRN, Nicotine Cravings, Refills 0, Maintenance, Other, 12/17/19 11:57:00 EDT Start Date: 12/17/19 Status: Ordered pantoprazole 40 mg oral delayed release tablet 1 tablet, By Mouth, Daily, FOR stomach acid., # 30 tablet, 2 Refills, Maintenance, 10/29/19 14:29:00 EDT, 168, cm, 10/29/19 7:27:00 EDT, Height, 106.8, kg, 10/28/19 9:52:00 EDT, Dry Weight Start Date: 10/29/19 Status: Ordered sacubitril-valsartan 97 mg-103 mg oral tablet 1 tablet, By Mouth, 2 times a day, # 60 tablet, 5 Refills, Maintenance, 08/27/19 7:36:00 EDT, Tablet, [facility] [place], [place] -, this is an increased, 1 tablet By Mouth 2 times a day,x30 days, 166, cm, 05/28/19 11:08:00 EDT, Height, 91.8, kg... Start Date: 08/27/19 Stop Date: 02/23/20 Status: Ordered Senna 8.6 mg oral tablet 8.6 mg, 1, tablet, By Mouth, Daily, Refills 0, Maintenance, 12/17/19 11:57:00 EDT, Tablet Start Date: 12/17/19 Status: Ordered torsemide 20 mg oral tablet 1 tablet = 20 mg, By Mouth, Daily, 0 Refills, Maintenance, 12/17/19 12:19:00 EDT, Tablet Start Date: 12/17/19 Status: Ordered Zenpep 10,000 units-32,000 units-42,000 units [...] Active H/O tubal ligation(Confirmed) Active BHN/BH CP Wildlife Removal Specialist/Janet salvador [facility] [phone](Confirmed) Active History of cholecystectomy(Confirmed) Active Hypertension(Confirmed) Active [...]
--- OUTSIDE RECORDS SUMMARY | 2023-02-09 22:34 | XMS_ITS | Continuity of Care Document ---
Author Name Unknown Organization [facility] Address [address] [place] [address]- Care Team Providers Care Calender Let Off Operator Name Role Phone Jaki Bishop MD Primary Care Physician [phone] [facility]counter [facility] Date[facility]): 04/01/20 - 05/01/[address] [address]- Allergies, Adverse Reactions, Alerts Substance Reaction Severity [...] Given Permanently Refused 1Admin Note: VIS GIVEN [id number] 2Admin Note: VIS GIVEN 2008-12 3Admin Note: vis 4Admin Note: vis 02/06/08 Medications acetaminophen 325 mg oral tablet 1, tablet, By Mouth, 4 times a day, PRN, not to exceed 4 TABLETS PER DAY, # 60 tablet, Refills 0, Tot. Refills 0, Acute, NEEDED, 05/01/20 9:37:00 EST, Route to Pharmacy Electronically, [facility], 168, cm, 04/16/20 8:30:00 EST, Height, 98.7, k... Start Date: 05/01/20 Status: Ordered Alcohol Wipes See Instructions, # [...] 0 Refills, Maintenance, 04/16/20 11:06:00 EST, Tablet, [facility] [place] [id number], Partial fill upon patient request if the prescription is for a schedule II opioid drug., 168,... Start Date: 04/16/20 Status: Ordered clozapine 50 mg oral tablet 3 tablet = 150 mg, By Mouth, Daily at bedtime, # 90 tablet, 0 Refills, Maintenance, 04/16/20 11:06:00 EST, Tablet, [facility] [place] [id number], Partial fill upon patient request ifthe prescription is for a schedule II opioid drug.,... Start Date: 04/16/20 Status: Ordered Coreg 6.25 mg oral tablet 6.25 mg, 1, tablet, By Mouth, 2 times a day, # 60 tablet, Refills 0, Tot. Refills 0, Maintenance, 04/16/20 11:05:00 EST, Route to Pharmacy Electronically, [facility] [place] [id number], Partial fill upon patient request, 168, cm, 03/22... Start Date: 04/16/20 Status: Ordered docusate sodium 100 mg oral capsule = 100 mg, By Mouth, 2 times a day, PRN Constipation., # 60 capsule, 3 Refills, Maintenance, 02/29/20 15:13:00 EST, Capsule, [facility] [id number], Partial fill upon patient request if the [...] Maintenance,04/16/20 11:06:00 EST, Route to Pharmacy Electronically, [facility] [place] [id number], Partial fill upon patient request if the [...] mL, 1 Refills, Maintenance, 04/16/20 11:07:00 EST, [facility], [place] - [id number],... Start Date: 04/16/20 Status: Ordered lactulose 10 gm/15 ml oral syrup 30 mL, By Mouth, 2 times a day, # 581 mL, 0 Refills, Acute, 03/25/20 11:49:00 EST, [facility],, TAKE 30 ML BY MOUTH 2 (two) [...] 1 Refills, Maintenance, 04/16/20 11:07:00 EST, Solution, [facility], [place] - [id number], 168, cm, 04/16/20 8:30:00 EST, Height, 98.7, kg, 04/11/20 2:10:00 EST, Dry Weight Start Date: 04/16/20 Status: Ordered loratadine 10 mg oral tablet See Instructions, TAKE ONE TABLET BY MOUTH DAILY, # 30 tablet, Refills 5, Tot. Refills 5, 05/01/20 8:18:00 EST, Instructions Replace Required Details, Route to Pharmacy Electronically, [facility], [place] - [id number], 168, cm, 04/16/20... Start Date: 05/01/20 Status: [...] 1 Refills, Maintenance, 08/07/19 14:23:00 EDT, Tablet, [place], [place] -, 1 tablet By Mouth Daily, [...] 0 Refills, Maintenance, 04/16/20 11:08:00 EST, Gum, [place], [place] - [id number], Partial fill upon patient request if the [...] 5 Refills, Maintenance, 03/05/20 16:50:00 EST, Tablet, [facility] [place] [id number], this is an increased, 1 tablet By [...] 1 Refills, Maintenance, 04/16/20 11:09:00 EST, Tablet, [facility] [place] [id number], Partial fill upon patient request if the prescription is for a schedule II opioid drug., 168, cm, 01... Start Date: 04/16/20 Stop Date: 04/11/21 Status: Ordered Zenpep 10,000 units-32,000 units-42,000 units oral delayed release capsule 1 capsule, By Mouth, 3 times a day, # 90 capsule, 0 Refills, Maintenance, 04/16/20 11:09:00 EST, [facility] [place] [id number], 1 capsule By Mouth 3 times a [...] Active H/O tubal ligation(Confirmed) Active BHN/ CP Speech Language Pathology Assistant/Janet salvador [facility] [phone](Confirmed) Active History of cholecystectomy(Confirmed) Active Hypertension(Confirmed) Active [...]
--- OUTSIDE RECORDS SUMMARY | 2023-02-09 22:34 | XMS_ITS | Continuity of Care Document ---
Author Name Unknown Organization [facility] Address [address] [place] [address]- Care Team Providers Care Energy Operations Vice President Name Role Phone Jaki Bishop MD Primary Care Physician [facility] Date[facility]): 08/[facility]19 - 08/08/[address] [address]- [facility] Attending Physician: Jaki Bishop MD Allergies, Adverse Reactions, [...] Given Patient Refuses 1Admin Note: VIS GIVEN [id number] 2Admin Note: VIS GIVEN 2008-12 3Admin Note: vis 4Admin Note: vis 02/06/08 Medications acetaminophen 325 mg oral tablet 1, tablet, By Mouth, 4 times a day, PRN, no MORE THAN 4 TABLETS PER DAY., # 60 tablet, Refills 2, Tot. Refills 0, Acute, NEEDED, 08/07/19 23:17:00 EDT, Route to Pharmacy Electronically, [facility], 166, cm, 05/28/19 11:08:00 EDT, Height, 91.8,... Start Date: 08/07/19 Status: Ordered Alcohol Wipes See Instructions, # 100 each, Refills 11, Tot. Refills 11, Maintenance, Check fasting glucose levels TID daily. Diagnosis: Type II DM, ICD10 E11.9, 06/07/19 15:00:00 EDT, Compound, 166, cm, 05/28/19 11:08:00 EDT, Height, 91.8, kg, 02/23/19 17:03:00 E... Start Date: 06/07/19 Status: Ordered Cane See Instructions, # 1 [...] 08/07/19 14:24:00 EDT, Route to Pharmacy Electronically, [facility] [place], [place] -, 166, cm, 05/28/19 11:08:00 EDT, Height, 91.8, kg, 02/23/19 17... Start Date: 08/07/19 Status: Ordered docusate sodium 100 mg oral capsule 100 mg, 1, capsule, By Mouth, 2 times a day, # 60 capsule, Refills 11, Tot. Refills 11, Maintenance, 02/21/19 14:45:44 EST, Route to Pharmacy Electronically, [id number], [place], [place] -, 168, cm, 02/14/19... Start Date: 02/21/19 Stop Date: 02/16/20 Status: Ordered Freestyle Lite Lancets See Instructions, [...] Maintenance,03/27/19 16:10:00 EST, Route to Pharmacy Electronically, [facility] #[id number], 166, cm, 03/27/19 15:26:00 EST, Height, 91.8, kg, 02/23/19 17:03:... Start Date: 03/27/19 Stop Date: 10/23/19 Status: Ordered Glucerna (Vanilla Flavor) Glucerna (Vanilla Flavor), See Instructions, # 60 each, Refills 11, Tot. Refills 11, Maintenance, Drink 1 can BID. 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 Fax to [facility] ( [facility], #[phone]), 07/26/19 15... Start Date: 07/26/19 Status: Ordered Humalog Kwik Pen 100 units/mL subcutaneous injection See Instructions, 4 Units for bood sugar above 120 mg/dl and then add 2 Units for every 50 mg/dl rise above 120. Three times a day before meals., # 15 mL, 6 Refills, Maintenance, 05/04/19 12:52:00 EST, [place], [place] - , Humalog ins... Start Date: 05/04/19 Status: Ordered Lantus Solostar Pen 100 units/mL subcutaneous solution See Instructions, This is an increase in dose. 28u QAM & 44 units QHS. Subcutaneous Injection Daily 30 days, # 5 each, 6 Refills, Maintenance, 07/12/19 9:59:00 EDT, [place], [place] -, 166, cm, 05/28/19 11:08:00 EDT, Height, 91.8, kg,... Start Date: 07/12/19 Status: Ordered MiraLax oral powder for reconstitution = 17 Gm, By Mouth, 2 times a day, PRN Other, dissolve in water before taking. goal 2-3 bowel movements daily, # 527 Gm, 2 Refills, Maintenance, 07/26/19 8:25:00 EDT, REC Powder, [place], [place] -, 17 Gm By Mouth 2 times a day,PRN:Oth... Start Date: 07/26/19 Status: Ordered multivitamin Multiple Vitamins oral tablet 1 tablet, By Mouth, Daily, # 90 tablet, 1 Refills, Maintenance, 08/07/19 14:23:00 EDT, Tablet, [place], [place] -, 1 tablet By Mouth Daily, 166, cm, 05/28/19 11:08:00 EDT, Height, 91.8, kg, 02/23/19 17:03:00 EST, Dry Weight Start Date: 08/07/19 Status: Ordered pantoprazole 40 mg oral delayed release tablet 1 tablet, By Mouth, Daily, FOR stomach acid., # 30 tablet, 2 Refills, Maintenance, 07/30/19 17:00:00 EDT, 166, cm, 05/28/19 11:08:00 EDT, Height, 91.8, kg, 02/23/19 17:03:00 EST, Dry Weight Start Date: 07/30/19 Status: Ordered Pen [place], 31 G x 8 mm BD Ultra [...] Attn Dr. Mariano Andrade, Outpatient Psychiatry, at [phone]., See Instructions, # 1 application, Refills 0, [...] 04/20/19 10:38:00 EST, Route to Pharmacy Electronically, [facility] #[id number], 166, cm, 04/20/19 10:17:00 EST, Height, 91.8, kg, 02/23/19 17:03:00 EST, . Start Date: 04/20/19 Status: Ordered torsemide 20 mg oral tablet 2 tablet = 40 mg, By Mouth, Daily, # 180 tablet, 11 Refills, Maintenance, 04/20/19 10:38:00 EST, Tablet, [facility] #[id number], Replaces lower dose, 166, cm, 04/20/19 10:17:00 [...] Active H/O tubal ligation(Confirmed) Active BHN/BH CP Photographs Curator/Janet Pandey [phone](Confirmed) Active History of cholecystectomy(Confirmed) Active Hypertension(Confirmed) Active [...]
--- OUTSIDE RECORDS SUMMARY | 2023-02-09 22:34 | XMS_ITS | Continuity of Care Document ---
Author Name Unknown Organization [facility] Address [address] [place] [address]- Care Team Providers Care Sewing Machine Operator Zipper Name Role Phone Jaki Bishop MD Primary Care Physician [phone] [facility] 06[facility]01[facility] - 07/01/[address] [address] Allergies, Adverse Reactions, Alerts Substance Reaction Severity [...] to COVID vaccine 2Admin Note: VIS GIVEN [id number] 3Admin Note: VIS GIVEN 2008-12 4Admin Note: vis 5Admin Note: vis 02/06/08 Medications Abilify 5 mg oral tablet 5 mg, 1, tablet, By Mouth, Daily, Refills 0, Maintenance, 06/29/21 15:30:00 EDT, Partial fill upon patient request if the prescription is for a schedule II opioid drug. Start Date: 06/29/21 Status: Ordered acetaminophen 325 mg oral tablet 650 mg, By Mouth, Every 4 hours, PRN, Temperature Greater than 100.5, Refills 0, Maintenance, Pain , Mild, 03/23/21 13:17:00 EST, Partial fill upon patient request if the prescription is for a schedule II opioid drug. Start Date: 03/23/21 Status: Ordered Alcohol Wipes See Instructions, # 100 each, Refills 11, Tot. Refills 11, Maintenance, Use when checking blood glucose levels TID. Diagnosis: Type II DM, ICD10 E11.9, 05/29/21 14:35:00 EST, Compound, 167.64, cm, 03/23/21 14:44:00 EST, Height, 100.9, kg, 03/16/21 4:5... Start Date: 05/29/21 Status: Ordered benztropine 0.5 mg oral tablet [...] MOUTH DAILY Start Date: 03/16/21 Status: Ordered Daily Multiple Vitamins oral tablet See Instructions, TAKE ONE TABLET BY MOUTH DAILY, # 90 tablet, 1 Refills, [facility], 150, TAKE ONE TABLET BY MOUTH DAILY, 167.64, cm, 03/23/21 14:44:00 EST, Height, 100.9, kg, 03/16/21 4:59:00 EST, Dry Weight Start Date: 05/26/21 Status: Ordered divalproex sodium 250 mg oral enteric coated tablet = 250 mg, By Mouth, Daily in AM, 0 Refills, Maintenance, 06/29/21 15:30:00 EDT, Tablet, Partial fill upon patient request if the prescription is for a schedule II opioid drug. Start Date: 06/29/21 Status: Ordered divalproex sodium 500 mg oral enteric coated tablet = 500 mg, By Mouth, Daily at bedtime, 0 Refills, Maintenance, 06/29/21 15:30:00 EDT, Tablet, Partial fill upon patient request if the prescription is for a schedule II opioid drug. Start Date: 06/29/21 Status: Ordered docusate sodium 100 mg oral capsule TAKE ONE CAPSULE BY MOUTH 2 (two) times a day NEEDED FOR CONSTIPATION Start Date: 03/16/21 Status: Ordered Freestyle Lite Lancets See Instructions, # 100 each, Refills 11, Tot. Refills 11, Maintenance, Use when checking blood glucose levels TID. Diagnosis: Type II DM, ICD10 E11.9, 05/29/21 14:35:00 EST, Compound, 167.64, cm, 03/23/21 14:44:00 EST, Height, 100.9, kg, 03/16/21 4:5... Start Date: 05/29/21 Status: Ordered Freestyle Lite Test Strips See Instructions, # 100 each, Refills 11, Tot. Refills 11, Maintenance, Use when checking blood glucose levels TID. Diagnosis: Type II DM, ICD10 E11.9, 05/29/21 14:35:00 EST, Compound, 167.64, cm, 03/23/21 14:44:00 EST, Height, 100.9, kg, 03/16/21 4:5... Start Date: 05/29/21 Status: Ordered gabapentin 100 mg oral capsule TAKE TWO CAPSULES BY MOUTH DAILY AT BEDTIME Start Date: 03/16/21 Status: Ordered insulin lispro [...] opioid drug. Start Date: 03/23/21 Status: Ordered Lantus Solostar Pen 100 units/mL subcutaneous solution See Instructions, INJECT 26 UNITS UNDER THE SKIN DAILY AT BEDTIME, # 15 mL, 3 Refills, [facility], 167, cm, 06/24/21 8:27:00 EDT, Height, 96.9, kg, 06/21/21 7:45:00 EDT, Dry Weight Start Date: 06/24/21 Status: Ordered loratadine 10 mg oral tablet 10 mg, 1, tablet, By Mouth, Daily, # 30 tablet, Refills 0, Maintenance, 03/16/21 0:47:00 EST, Partial fill upon patient request if the prescription is for a schedule II opioid drug. Start Date: 03/16/21 Status: Ordered loratadine 10 mg oral tablet See Instructions, TAKE ONE TABLET BY MOUTH DAILY, # 30 tablet, Refills 5, Instructions Replace Required Details, Route to Pharmacy Electronically, [facility], 167.64, cm, 03/23/21 14:44:00 EST, Height, 100.9, kg, 03/16/21 4:59:00 EST, Dry Weight Start Date: 05/26/21 Status: Ordered magnesium oxide 400 mg oral tablet TAKE ONE TABLET BY MOUTH two (2) times a day Start Date: 03/16/21 Status: Ordered melatonin 3 mg oral tablet 1 tablet = 3 mg, By Mouth, Daily at bedtime, PRN Insomnia, # 60 tablet, 3 Refills, Maintenance, 04/24/21 13:09:00 EST, Tablet, [place], [place] - [id number], Partial fill upon patient request if the prescription is for a schedule II o... Start Date: 04/24/21 Status: Ordered nicotine 14 mg/24 hr transdermal film, extended release APPLY 1 PATCH TOPICALLY EVERY DAY REMOVE OLD PATCH BEFORE APPLYING NEW ONE. Start Date: 03/16/21 Status: Ordered pancrelipase 10,000 units-32,000 units-42,000 units oral delayed release capsule 1 capsule, By Mouth, 3 times a day, with each meal and snack, # 90 capsule, 2 Refills, Maintenance,05/08/21 12:22:00 EST, CR Capsule, [place], [place] - [id number], Partial fill upon patient request if the prescription is for a sched... Start Date: 05/08/21 Stop Date: 08/06/21 Status: Ordered pantoprazole 40 mg oral delayed release tablet 1 tablet = 40 mg, By Mouth, Daily, # 90 tablet, 0 Refills, Maintenance, 03/16/21 0:47:00 EST, EC Tablet Start Date: 03/16/21 Status: Ordered simethicone 80 mg oral tablet, chewable 80 mg, Chew, 3 times a day, PRN, Refills 0, Maintenance, Gas, 06/29/21 15:30:00 EDT, Partial fill upon patient request if the prescription is for a schedule II opioid drug. Start Date: 06/29/21 Status: Ordered torsemide 20 mg oral tablet [...] Active H/O tubal ligation(Confirmed) [phone](Confirmed) Active Heart failure(Confirmed) Active History of cholecystectomy(Confirmed) [...] History Social History Type Response Smoking Status 5-9 cigarettes (betw een 1/4 to 1/2 pack)/day in last 30 days; Interested in cessation: No; Patient wants NRT during admission Yes; Type: Cigarettes entered on: 06/29/21 Sex
--- OUTSIDE RECORDS SUMMARY | 2023-02-09 22:34 | XMS_ITS | Continuity of Care Document ---
Author Name Unknown Organization [facility] Address [address] [place] [address]- Care Team Providers Care Injection Operator Name Role Phone Jaki Bishop MD Primary Care Physician Encounter [facility] Date(s): 07/07/21 - 09/04/[address] [address]- Attending Physician: Not on Staff, Attending MD Allergies, Adverse Reactions, Alerts Substance Reaction [...] to COVID vaccine 2Admin Note: VIS GIVEN [id number] 3Admin Note: VIS GIVEN 2008- 4Admin Note: vis 5Admin Note: vis 02/06/08 Medications Abilify 10 mg oral tablet 10 mg, 1, tablet, By Mouth, Daily, # 90 tablet, Refills 3, Tot. Refills 3, Maintenance, 07/07/21 8:56:00 EDT, Route to Pharmacy Electronically, [place], [place] - [id number], Partialfill upon patient request if the prescription is fo... Start Date: 07/07/21 Status: Ordered acetaminophen 325 mg oral tablet [...] TID. Diagnosis: Type II DM, ICD10 E11.9, 07/07/21 8:56:00 EDT, Compound, 167, cm, 07/07/21 8:39:00 EDT, Height, 95.6, kg, 06/29/21 18:39:00... Start Date: 07/07/21 Status: Ordered benztropine 1 mg oral tablet 0.5 mg, 0.5, tablet, By Mouth, 2 times a day, # 90 tablet, Refills 3, Tot. Refills 3, Maintenance, 07/07/21 8:56:00 EDT, Route to Pharmacy Electronically, [facility] [phone], Partial fill upon patient request if the prescri... Start Date: 07/07/21 Status: Ordered Comfort EZ Pen [place] 31 gauge x 5/16 USE TO inject insulin 4 (FOUR) TIMES DAILY Start Date: 07/03/21 Status: Ordered Coreg 6.25 mg oral tablet 6.25 mg, 1, tablet, By Mouth, 2 times a day, # 180 tablet, Refills 3, Tot. Refills 3, Maintenance, 07/07/21 8:56:00 EDT, Route to Pharmacy Electronically, [facility] [phone], Partial fill upon patient request if the prescri... Start Date: 07/07/21 Status: Ordered Daily Multiple Vitamins oral tablet 1 tablet, By Mouth, Daily, # 90 tablet, 3 Refills, Maintenance, 07/07/21 8:56:00 EDT, Tablet, [facility] [id number], Partial fill upon patient request if the prescription is for a schedule II opioid drug., 1 tablet By Mouth Da... Start Date: 07/07/21 Status: Ordered divalproex sodium 250 mg oral enteric coated tablet 1 tablet = 250 mg, By Mouth, Daily in AM, # 90 tablet, 3 Refills, Maintenance, 07/07/21 8:56:00 EDT, Tablet, [facility] [id number], Partial fill upon patient request if the prescription is for a schedule II opioid drug., 167,... Start Date: 07/07/21 Status: Ordered divalproex sodium 500 mg oral enteric coated tablet 1 tablet = 500 mg, By Mouth, Daily at bedtime, # 90 tablet, 3 Refills, Maintenance, 07/07/21 8:56:00 EDT, Tablet, [facility] [id number], Partial fill upon patient request if the prescription is for a schedule II opioid drug.,... Start Date: 07/07/21 Status: Ordered Eucerin Unscented topical lotion See Instructions, Apply daily as directed to dry skin. 16 oz, # 1 each, 3 Refills, Maintenance, 07/07/21 9:02:00 EDT, [facility] [id number], Partial fill upon patient requestif the prescription is for a schedule II opioid dr... Start Date: 07/07/21 Status: Ordered FreeStyle Lite Strips FreeStyle Lite Strips, See Instructions, # 100 Unknown, 2 Refills, USE TO TEST FINGER STICK BLOOD SUGAR 3 (THREE) TIMES A DAY BEFORE MEALS AND AT BEDTIME, 167, cm, 07/07/21 8:39:00 EDT, Height, 95.6,kg, 06/29/21 18:39:00 EDT, Dry Weight Start Date: 08/11/21 Status: Ordered FreeStyle Lite Strips USE TO TEST FINGER STICK BLOOD SUGAR 3 (THREE) TIMES A DAY BEFORE MEALS AND AT BEDTIME Start Date: 07/03/21 Status: Ordered gabapentin 100 mg oral capsule 100 mg, 1, capsule, By Mouth, Daily, PRN, # 90 capsule, Refills 3, Tot. Refills 3, Maintenance, Anxiety, 07/07/21 8:56:00 EDT, Route to Pharmacy Electronically, [facility] [id number], Partial fill upon patient request if the p... Start Date: 07/07/21 Status: Ordered gabapentin 100 mg oral capsule 200 mg, 2, capsule, By Mouth, Daily at bedtime, # 180 capsule, Refills 3, Tot. Refills 3, Maintenance, 07/07/21 8:56:00 EDT, Route to Pharmacy Electronically, [facility] [id number], Partial fill upon patient request if the pre... Start Date: 07/07/21 Status: Ordered guaiFENesin 100 mg/5 mL oral liquid 5 mL = 100 mg, By Mouth, Every 4 hours, PRN for cough, # 300 mL, 0 Refills, Acute 07/07/22 9:05:00 EDT, 07/07/21 9:02:00 EDT, Liquid, [facility], [place] - [id number], Partial fill uponpatient request if the prescription is for a schedu... Start Date: 07/07/21 Stop Date: 07/07/22 Status: Ordered Inject Ease Lancets 28 gauge USE TO TEST FINGER STICK BLOOD SUGAR 3 (THREE) TIMES A DAY BEFORE MEALS AND AT BEDTIME Start Date: 07/03/21 Status: Ordered insulin glargine 100 units/mL subcutaneous solution 0.16 mL = 16 units, Subcutaneous Injection, Daily at bedtime, # 4.8 mL, 11 Refills, Maintenance, 07/07/21 8:56:00 EDT, Injection, [facility] [id number], Partial fill upon patient request if the prescription is for a schedule I... Start Date: 07/07/21 Status: Ordered insulin lispro 100 u/ml subcutaneous injection 2-10 units, Subcutaneous Injection, 3 times a day before meals, 150 - 199 2 units 200 - 249 4 units, 250 - 299 6 units, 300 - 349 8 units, 350 - 399 10 units Call [facility] if greater than 400, # 7.5 mL, 11 Refills, Maintenance, 07/07/21 8:56:... Start Date: 07/07/21 Status: Ordered lactulose 10 gm/15 ml oral syrup 30 mL, By Mouth, 2 times a day, # 581 mL, 3 Refills, [facility], 10, TAKE 30mls BY MOUTH 2 (two) times a day, 167, cm, 07/07/21 8:39:00 EDT, Height, 95.6, kg, 06/29/21 18:39:00 EDT, Dry Weight Start Date: 08/10/21 Status: Ordered loratadine 10 mg oral tablet 10 mg, 1, tablet, By Mouth, Daily, # 90 tablet, Refills 3, Tot. Refills 3, Maintenance, 07/07/21 8:56:00 EDT, Route to Pharmacy Electronically, [facility] [id number], Partialfill upon patient request if the prescription is fo... Start Date: 07/07/21 Status: Ordered magnesium oxide 400 mg oral tablet 1 tablet = 400 mg, By Mouth, 2 times a day, # 180 tablet, 3 Refills, Maintenance, 07/07/21 8:56:00 EDT, Tablet, [place], [place] - [id number], Partial fill upon patient request if the prescription is for a schedule II opioid drug., 16... Start Date: 07/07/21 Status: Ordered melatonin 3 mg oral tablet 1 tablet = 3 mg, By Mouth, Daily at bedtime, PRN Insomnia, # 90 tablet, 3 Refills, Maintenance, 07/07/21 8:56:00 EDT, Tablet, [facility] [id number], Partial fill upon patientrequest if the prescription is for a schedule II op... Start Date: 07/07/21 Status: Ordered nicotine 2 mg oral transmucosal lozenge 1 lozenge = 2 mg, By Mouth, Every hour, PRN Other, Nicotine Withdrawal Symptoms (not to exceed 20 lozenges per day), # 72 lozenge, 3 Refills, Maintenance, 07/07/21 8:56:00 EDT, Lozenge, [facility] [id number], Partial fill upon... Start Date: 07/07/21 Status: Ordered pancrelipase 10,000 units-32,000 units-42,000 units oral delayed release capsule 1 capsule, By Mouth, 3 times a day, with each meal and snack, # 270 capsule, 3 Refills, Maintenance, 07/07/21 8:56:00 EDT, CR Capsule, [facility] [id number], Partial fill upon patient request if the prescription is for a sched... Start Date: 07/07/21 Stop Date: 08/06/21 Status: Ordered pantoprazole 40 mg oral delayed release tablet 1 tablet = 40 mg, By Mouth, Daily, # 90 tablet, 3 Refills, Maintenance, 07/07/21 8:56:00 EDT, EC Tablet, 167, cm, 07/07/21 8:39:00 EDT, Height, 95.6, kg, 06/29/21 18:39:00 EDT, Dry Weight Start Date: 07/07/21 Status: Ordered simethicone 80 mg oral tablet, chewable 80 mg, Chew, 3 times a day, PRN, Refills 0, Maintenance, Gas, 06/29/21 15:30:00 EDT, Partial fill upon patient request if the prescription is for a schedule II opioid drug. Start Date: 06/29/21 Status: Ordered torsemide 20 mg oral tablet 1 tablet = 20 mg, By Mouth, 2 times a day, # 180 tablet, 3 Refills, Maintenance, 07/07/21 8:56:00 EDT, Tablet, [facility] [id number], Partial fill upon patient request if theprescription is for a schedule II opioid drug., 167... 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
--- OUTSIDE RECORDS SUMMARY | 2023-02-09 22:34 | XMS_ITS | Continuity of Care Document ---
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 nicotine gum Tylenol and 1 L of fluid bolus in the ED.?? Overnight patient tolerated another dose of Haldol 10 mg IV push for agitation and threatening behavior.?? Patient will be admitted to inpatient medicine service for altered mental status/agitation/violent behavior. ?? Schizoaffective disorder bipolar type Aggressive/violent behavior Suicidal ideation Vitals as per unit standards Suicide precautions Constant note teller Patient cannot leave AMA until cleared by psychiatry Psychiatric consult order placed S/p Haldol 10 mg IV push overnight Will continue with benztropine??0.5 mg twice daily Will continue with??divalproex 500 mg twice daily Risperidone 2 mg twice daily Haldol as needed for now ?? History of recent right-sided mastoiditis improving from before but still had abscess at the right postauricular soft tissue Not sure what antibiotic patient is taking at home Will continue with vancomycin and Zosyn for now Follow-up blood cultures??and adjust antibiotics Daily trend fever and WBC curve ? HTN???overnight patient hypotensive after receiving Versed. ??We will hold off on her??blood pressure medications. ??Please resume in the a.m. if needed Will hold off on Coreg, clonidine,??losartan,??torsemide for now ?? Diabetes mellitus???glargine??12 units at night, at home takes 18 units, lispro sliding scale. History of??chronic??pancreatitis???pancreatic enzymes GERD???pantoprazole??40 mg daily As needed bowel regimen Folic acid ?? Code???full, as per chart review??and previous admissions Diet???cardiac DVT prophylaxis???subcu Lovenox ?? Patient seen and examined on 03/09/2022 ? Histories Allergies Allergies ?(Active and Proposed Allergies Only) NSAIDs? (Severity: Unknown severity, Onset: Unknown) ?Comments: lsited due to pt's liver disease predniSONE? (Severity: Unknown severity, Onset: Unknown) ?Reactions: Dizzinesses ? 02-JAN-2016 21:52:27<$> Zyprexa? (Severity: Unknown severity, Onset: Unknown) ?Reactions: Hypertension ? Past Medical History/Problem List Active Problems??(30) Asthma Atrophic vaginitis Biventricular HF (heart failure, EF 20-30%) Chronic kidney disease (CKD) Chronic low back pain w/Bilateral LE Radiculopathy (Lumbar DDD, MRI 03/2011) Cirrhosis of liver (Steatohepatitis/NAFLD, Suspected GI Sarcoidosis but no findings sarcoid 2012 liver biopsy) COPD without exacerbation CS (cervical spondylosis) Diabetes Dyshidrotic eczema General medical H/O tubal ligation 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-associated pneumonia) History of cholecystectomy History of Chronic pancreatitis & Pseudocyst History of splenectomy Hyperglycemia due to diabetes mellitus Hypertension Hypoxia Incisional hernia Leukocytosis Nicotine dependence Obese class I Obesity (BMI 30.0-34.9) Pulmonary HTN, Severe Schizoaffective disorder, bipolar type Steatohepatitis (w/Stage III Fibrosis, Liver Biopsy 05/2012) Syncope and collapse Tobacco use Weakness ? Past Surgical History Laparotomy: 03/2013 Laparoscopic Cholecystectomy: 2001 Cesarian Section: 1991 Cesarian Section: 1987 Cesarian Section: 1981 Cesarian Section: 1980 ? Social History Alcohol Details:??Use: Never. Substance Abuse Details:??Use: Never. Tobacco Details:??Use: 5-9 cigarettes (between 1/4 to 1/2 pack)/day in last 30 days. ??Interested in cessation: No. ??Yes, Type: Cigarettes. ? Family History Mother: Cervical; Stomach ? Medications Home Medications Acetaminophen (acetaminophen 325 mg oral tablet)?650?Milligram?2?tablet?By Mouth?Every 6 hours?as needed?as needed for pain Benztropine (benztropine 1 mg oral tablet)?0.5?Milligram?0.5?tablet?By Mouth?2 times a day Carvedilol (Coreg 6.25 mg oral tablet)?6.25?Milligram?1?tablet?By Mouth?2 times aday Clonidine (cloNIDine 0.1 mg oral tablet)?0.1?Milligram?1?tablet?By Mouth?Daily Divalproex Sodium (divalproex sodium 500 mg oral enteric coated tablet)?1?tab(s)?500?Milligram?By Mouth?2 times a day Docusate-Senna (docusate-senna 50 mg-8.6 mg oral capsule)?1?capsule?By Mouth?2 times a day?as needed?Constipation Durable Medical Equipment (Freestyle Lite Monitor)?See Instructions?for 30?Days?Use when checking blood glucose levels TID. Diagnosis: Type II DM, ICD10 E11.9 Durable Medical Equipment (Freestyle Lite Test Strips)?See Instructions?Use when checking blood glucose levels TID. Diagnosis: Type II DM, ICD10 E11.9 Durable Medical Equipment (Freestyle Lite Lancets)?See Instructions?Use when checking blood glucose levels TID. Diagnosis: Type II DM, ICD10 E11.9 Durable Medical Equipment (Alcohol Wipes)?See Instructions?Use when checking blood glucose levels TID. Diagnosis: Type II DM, ICD10 E11.9 Folic Acid (folic acid 1 mg oral tablet)?1?Milligram?1?tablet?By Mouth?Daily Insulin Glargine (Lantus Solostar Pen 100 units/mL subcutaneous solution)?16?unit(s)?Subcutaneous Injection?Daily?INJECT 16 UNITS UNDER THE SKIN ONCE DAILY Insulin Lispro (Insulin Lispro KwikPen 100 units/mL injectable solution)?INJECT SUBCUTANEOUSLY 3(THREE) TIMES A DAY BEFORE MEALS VIA sliding scale (150-199 2u; 200-249 4u; 250-299 6u; 300-349 8u;350-399 10u; >400 call VNA) Lactulose (lactulose 10 gm/15 ml oral syrup)?30?Milliliter?20?gram?By Mouth?2 times a day Losartan (losartan 50 mg oral tablet)?50?Milligram?1?tablet?By Mouth?Daily Melatonin (melatonin 3 mg oral tablet)?1?tab(s)?3?Milligram?By Mouth?Daily at bedtime?as needed?Insomnia Nicotine (Nicotine 2 mg gum)?1?Each?2?Milligram?Chew?Every hour?as needed?as needed for smoking cessation Pancrelipase (Creon 12,000 units oral delayed release capsule)?1?capsule?By Mouth?3 times a day Pantoprazole (pantoprazole 40 mg oral delayed release tablet)?1?tab(s)?40?Milligram?By Mouth?Daily Risperidone (RisperDAL 1 mg oral tablet)?2?Milligram?2?tablet?By Mouth?2 times a day torsemide (torsemide 20 mg oral tablet)?1?tab(s)?20?Milligram?By Mouth?2 times a day ? Inpatient Medications Medications (19) Active SCHEDULED: (12) Benztropine 1 mg Tablet (benztropine 1 mg oral tablet) ??0.5 mg, By Mouth, 2 times a day Divalproex 500 mg Tablet (Depakote Tablet) ??500 mg, By Mouth, 2 times a day Enoxaparin 40 mg Inj (Enoxaparin Inj) ??40 mg 0.4 mL, Subcutaneous Injection, Daily Folic Acid 1 mg Tablet (folic acid 1 mg oral tablet) ??1 mg, By Mouth, Daily Insulin Glargine 100 units/mL Inj (Insulin Glargine Inj) ??12 units 0.12 mL, Subcutaneous Injection, Daily Insulin Lispro 100 units/mL Inj (3mL) (Insulin LISPRO Sliding Scale) ??2-10 units, Subcutaneous Injection, 3 times a day before meals Lactulose 20 Gm/30mL Syrup (lactulose 10 gm/15 ml oral syrup) ??20 Gm 30 mL, By Mouth, 2 times a day NaCl 0.9% Flush 3ml (NaCL 0.9% Flush) ??3 mL, IV Push, Every 8 hours Pancrelipase 10,000 unit Capsule (Pancrelipase Capsule) ??10,000 units 1 capsule, By Mouth, 3 timesa day with meals Pantoprazole 40 mg EC Tablet (pantoprazole 40 mg oral delayed release tablet) ??40 mg, By Mouth, Daily Risperidone 1 mg Tablet (RisperDAL 1 mg oral tablet) ??2 mg, By Mouth, 2 times a day Torsemide 20 mg tablet (torsemide 20 mg oral tablet) ??20 mg 1 tablet, By Mouth, 2 times a day CONTINUOUS: (0) PRN: (7) Acetaminophen 325 mg Tablet (Acetaminophen Tablet) ??650 mg, By Mouth, Every 4 hours Haloperidol Lactate 5 mg/mL Inj (1 mL) (Haloperidol LACTATE Inj) ??5 mg 1 mL, IV Push Slowly, Once Melatonin 3 mg Tablet (Melatonin Tablet) ??3 mg, By Mouth, Daily at bedtime Midodrine 5 mg Tablet (midodrine 5 mg oral tablet) ??5 mg, By Mouth, Once NaCl 0.9% Flush 3ml (NaCL 0.9% Flush) ??3 mL, IV Push, Every 8 hours Nicotine 2 mg Gum (Nicotine Gum) ??2 mg, Chew, Every hour Senna 8.6 mg / Docusate 50 mg tablet (Docusate/Senna Tablet) ??1 tablet, By Mouth, 2 times a day ? Results Recent Labs BLOOD COUNT & DIFF WBC 10.0 k/mm3 ()?? 03/09/2022 13:56 RBC 3.76 m/mm3 (Low)?? 03/09/2022 13:56 Hgb 11.7 Gm/dL ()?? 03/09/2022 13:56 Hct 34.9 % (Low)?? 03/09/2022 13:56 MCV 92.8 femtoliters ()?? 03/09/2022 13:56 MCH 31.1 pg ()?? 03/09/2022 13:56 MCHC 33.5 g/dL ()?? 03/09/2022 13:56 Platelet Count 410 k/mm3 ()?? 03/09/2022 13:56 RDW-SD 46.4 femtoliters ()?? 03/09/2022 13:56 MPV 12.4 femtoliters ()?? 03/09/2022 13:56 Nucleated RBC (Automated) 0.0 #/100 WBC'S ()?? 03/09/2022 13:56 Abs. NRBC 0.0 k/mm3 ()?? 03/09/2022 13:56 Abs. Neut 4.5 k/mm3 ()?? 03/09/2022 13:56 Abs. Lymph 4.0 k/mm3 (High)?? 03/09/2022 13:56 Abs. [place] 1.4 k/mm3 (High)?? 03/09/2022 13:56 Abs. Eo 0.1 k/mm3 ()?? 03/09/2022 13:56 Abs. Baso 0.0 k/mm3 ()?? 03/09/2022 13:56 Neut % 45.0 % ()?? 03/09/2022 13:56 Lymph % 40.0 % ()?? 03/09/2022 13:56 [place] % 13.9 % (High)?? 03/09/2022 13:56 Eos % 0.5 % ()?? 03/09/2022 13:56 Baso % 0.4 % ()?? 03/09/2022 13:56 Imm Gran 0.2 % ()?? 03/09/2022 13:56 Abs. Imm Gran 0.0 k/mm3 ()?? 03/09/2022 13:56 ?? CHEM GENERAL Sodium 132 mmol/L (Low)?? 03/09/2022 13:56 Potassium 3.9 mmol/L ()?? 03/09/2022 13:56 Chloride 90 mmol/L (Low)?? 03/09/2022 13:56 Bicarbonate Level 28 mmol/L ()?? 03/09/2022 13:56 Anion Gap 14 ()?? 03/09/2022 13:56 Glucose Level 227 mg/dL (High)?? 03/09/2022 13:56 BUN 12 mg/dL ()?? 03/09/2022 13:56 Creatinine-Blood 1.0 mg/dL ()?? 03/09/2022 13:56 Estimated GFR Creatinine 66 ML/MIN/1.73 M2 ()?? 03/09/2022 13:56 Calcium 9.9 mg/dL ()?? 03/09/2022 13:56 Protein, Total 7.4 Gm/dL ()?? 03/09/2022 13:56 Albumin 4.1 Gm/dL ()?? 03/09/2022 13:56 AG Ratio 1.2 ()?? 03/09/2022 13:56 Alkaline Phosphatase 233 units/L (High)?? 03/09/2022 13:56 Lipase 21 units/L ()?? 03/09/2022 13:56 AST (SGOT) 15 units/L ()?? 03/09/2022 13:56 ALT (SGPT) 11 units/L ()?? 03/09/2022 13:56 Bilirubin, Total 0.4 mg/dL ()?? 03/09/2022 13:56 Lactate 2.8 mmol/L (High)?? 03/09/2022 14:17 ?? ENDOCRINE/TUMOR MARKER Serum Qual INDETERMINATE mIU/mL (Abnormal)?? 03/09/2022 13:56 ?? HEME OTHER Hold Blue Top SPECIMEN DISCARDED AFTER 4 HOURS. ()?? 03/09/2022 13:56 ?? MISC. CHEMISTRY Ammonia, Venous 37 ??mole/L ()?? 03/09/2022 14:17 ?? TOXICOLOGY/TDM Ethanol, Serum or Plasma NONE DETECTED mg/dL ()?? 03/09/2022 13:56 Barbiturate Screen, Urine NONE DETECTED ()?? 03/09/2022 20:19 Cannabinoid Screen, Urine NONE DETECTED ()?? 03/09/2022 20:19 Cocaine Metabolite Screen, Urine POSITIVE (Abnormal)?? 03/09/2022 20:19 Benzodiazepine Screen, Urine POSITIVE (Abnormal)?? 03/09/2022 20:19 Amphetamine Screen, Urine NONE DETECTED ()?? 03/09/2022 20:19 Opiate Screen, Urine NONE DETECTED ()?? 03/09/2022 20:19 ?? UA/URINALYSIS Appear/Color, Urine LIGHT YELLOW ()?? 03/09/2022 20:19 Specific [place], Urine 1.045 (High)?? 03/09/2022 20:19 pH, Urine 6.5 ()?? 03/09/2022 20:19 Albumin, Urine TRACE (Abnormal)?? 03/09/2022 20:19 Glucose, Urine NEGATIVE ()?? 03/09/2022 20:19 Ketones, Urine NEGATIVE ()?? 03/09/2022 20:19 Bilirubin, Urine NEGATIVE ()?? 03/09/2022 20:19 Hemoglobin, Urine NEGATIVE ()?? 03/09/2022 20:19 Nitrite, Urine NEGATIVE ()?? 03/09/2022 20:19 Leukocyte, Urine NEGATIVE ()?? 03/09/2022 20:19 Urobilinogen NORMAL mg/dL ()?? 03/09/2022 20:19 WBC's, Urine 1 /HPF ()?? 03/09/2022 20:19 RBC's, Urine 1 /HPF ()?? 03/09/2022 20:19 Squamous Epith 3 /HPF ()?? 03/09/2022 20:19 Hold Urine Culture Testing available 48 hours from time of collection. ()?? 03/09/2022 20:19 ?? VIROLOGY Influenza A PCR NEGATIVE ()?? 03/09/2022 14:00 Influenza B PCR NEGATIVE ()?? 03/09/2022 14:00 RSV PCR NEGATIVE ()?? 03/09/2022 14:00 COVID-19 PCR Specimen Source NASAL ()?? 03/09/2022 14:00 COVID-19 PCR Result NEGATIVE ()?? 03/09/2022 14:00 ? Urinalysis Albumin, Urine: TRACE Abnormal (20:19) Appear/Color, Urine: LIGHT YELLOW (20:19) Bilirubin, Urine: NEGATIVE (20:19) Glucose, Urine: NEGATIVE (20:19) Hemoglobin, Urine: NEGATIVE (20:19) Hold Urine Culture: Testing available 48 hours from time of collection. (20:19) Ketones, Urine: NEGATIVE (20:19) Leukocyte, Urine: NEGATIVE (20:19) Nitrite, Urine: NEGATIVE (20:19) pH, Urine: 6.5 (20:19) RBC's, Urine: 1 /HPF (20:19) Specific [place], Urine:??1.045??High (20:19) Squamous Epith: 3 /HPF (20:19) Urobilinogen: NORMAL (20:19) WBC's, Urine: 1 /HPF (20:19) ?? Microbiology ?? COVID-19, RSV, and Flu A/B, Rapid PCR?? Completed?? Source: Nasal Body Site: Nose Collected Dt/Tm: 03/09/2022 13:55 Last Updated Dt/Tm: 03/09/2022 15:49 ? [1]??Echo Complete; Ilya HAYDNE, Jonathan Brown 06/22/2021 09:21 EDT EKG study * Event Display: ECG 12-Lead Authored Date: Please click on pdf link to open report * Event Display: ECG 12-Lead Authored Date: Ventricular Rate: 79 BPM Atrial Rate: 79 BPM P-R Interval: 220 ms QRS Duration: 92 ms Q-T Interval: 412 ms QTC Calculation(Bazett): 472 ms P [place]: 54 degrees R [place]: 50 degrees T [place]: 51 degrees Sinus rhythm with 1st degree A-V block Nonspecific T wave abnormality Prolonged QT Abnormal ECG When compared with ECG of 21-JAN-2022 08:50, [place] interval has increased T wave inversion now evident in Anterior leads Confirmed by MONET POPE MD () on 03/10/2022 3:53:53 PM Perley: MONET POPE MD * Event Display: ECG 12-Lead Authored Date: Please click on pdf link to open report * Event Display: ECG 12-Lead Authored Date: Ventricular Rate: 75 BPM Atrial Rate: 75 BPM P-R Interval: 206 ms QRS Duration: 98 ms Q-T Interval: 442 ms QTC Calculation(Bazett): 493 ms P [place]: 64 degrees R [place]: 53 degrees T [place]: 61 degrees Normal sinus rhythm Prolonged QT Abnormal ECG When compared with ECG of 21-JAN-2022 08:50, No significant change was found Confirmed by MONET POPE MD () on 03/10/2022 3:53:10 PM Perley: MONET POPE MD Hospital Progress note * Mikaela Mcgrary RN: PERFORM, SIGN, VERIFY Event Display: Progress Note Hospital Authored Date: Patient: CARYL AVILA Age: 56 years Sex: Female : 1965 Associated Diagnoses: None Author: Mikaela Mcgarry RN Findings Nursing Data Vital Signs : VITAL SIGNS SECTION 03/18/2022 3:00 EST Pulse Rate 74 bpm Respiratory Rate 18 br/min Systolic Blood Pressure 111 mm Hg Diastolic Blood Pressure 56 mm Hg Blood pressure sites Leg, left Pulse Pressure 55 mm Hg Oxygen Saturation 95 % Mode of Delivery (Oxygen) Room air . Narrative/Incidental Received patient alert and orient to person and place breathing freely on RA. Denies pain. Patient was cooperative for most of the shift. BIN noted to Lt Hand. Maintained in Vest and hard wrist restraints throughout shift. Hygenic needs met along with linen change. Medicated as ordered.(See MAR). Hourly rounds in progress, bed in low position,bed alarm on and call higuera within reach. Care and observation continues. . * Ashley Lind RN: VERIFY, PERFORM, SIGN Event Display: Progress Note Hospital Authored Date: Patient: CARYL AVILA Age: 56 years Sex: Female : 1965 Associated Diagnoses: None Author: Diogo RAMIREZ, Ashley Findings Narrative/Incidental In AM patient was out of hard restraints and vest restraint and trying to exit the bed. When tryingto get her into bed patient was swearing, and combative and assulting staff. Called a dickson villar to have security assist with putting restraints back on. Reapplied vest restraint and hard restraintsapplied to wrists bilaterally. No hard restraints applied to ankles. Restraint protocol maintained.Constant note teller at bedside. Gave PRN dose of IV ativan 2mg/mL and IV haldol 5mg/mL. RR 24. Orderwas renewed today. Patient refused actulose. Reinforced education patient was not compliant. 1829 patient became agitated, swearing at staff. Administered PRN Haldol and ativan. Please see biophysical for further assessment. Hourly rounding in place, patients safety remained. Bed in lowest position and bed alarm on. . . * Gemini Hernandez MD: MODIFY, PERFORM, MODIFY Event Display: Progress Note Hospital Authored Date: Patient: ??CARYL AVILA ? Age:??56 Years?Sex:??Female?:??1965?? Subjective Overnight: no significant events ?? This morning: dickson villar called-Pt got out of wrist restraints and nearly out of Josh vest, was verbally abusive to staff, security was called to replace the hard wrist restraints She received PRN for agitation and calmed down Review of Systems Unable to obtain complete ROS due to patient's mental status. Objective ? Vital Signs?? Temperature: 97.4 DegF (03/16/22 21:05:00) Temperature Route: Oral (03/16/22 21:05:00) Pulse Rate: 70 bpm (03/16/22 21:05:00) Respiratory Rate: 18 br/min (03/16/22 21:05:00) Systolic Blood Pressure:??140 mm Hg??High (03/16/22 21:05:00) Diastolic Blood Pressure:??95 mm Hg??High (03/16/22 21:05:00) Blood pressure sites: Arm, right (03/16/22 21:05:00) Mean Arterial Pressure: 110 mm Hg (03/16/22 21:05:00) Pulse Pressure: 45 mm Hg (03/16/22 21:05:00) Oxygen Saturation:??93 %??Low (03/16/22 21:05:00) Mode of Delivery (Oxygen): Room air (03/16/22 21:05:00) Early Warning Score: 4 (03/17/22 08:31:41) ? Intake/Output? 03/09 16:07 03/17 07:00 03/16 07:00 03/15 07:00 03/14 07:00 ?? 03/17 09:13 03/17 09:13 03/17 06:59 03/16 06:59 03/15 06:59 Intake ? 6264 ?0 ?560 ?0 ? 1200 Output ? 3000 ?0 ? 1000 ?0 ? 1000 Net Total ? 3264 ?0 ? -440 ?0 ?200 ? Urine Count ? 22 ?0 ?2 ?1 ?7 ? Physical Exam General Appearance: agitated, yelling Cardiovascular: refused tele Respiratory: on room air, speaking in full sentences, no increased WOB MS:?right postauricular bandage in place Neuro: ??No slurred speech. ??Patient seen moving their upper and lower extremities independently. Psych: agitated, paranoid _ 72 Hour Antibiotic History Active Antibiotics Calendar Day Last Administered First Administered Levofloxacin??750 mg, By Mouth, Every 24 hours ?2 03/16/2022 18:27 03/16/2022 18:27 ? Stopped Antibiotics Stop Date/Time Last Administered First Administered Levofloxacin??750 mg, By Mouth, Every 24 hours 03/16/2022 15:45 03/15/2022 17:39 03/12/2022 17:17 ? Results Recent Labs CHEM GENERAL Glucose, POC 218 mg/dL (High)?? 03/17/2022 07:47 ?? VIROLOGY COVID-19 by RT-PCR NEGATIVE ()?? 03/16/2022 10:10 ? Assessment/Plan Ms. Avila is a 56yo female with PMH of schizoaffective d/o, HTN, HLD, DM, cirrhosis, CKD, asthma, CHF, and GERD who presented with agitation and was found to have a right-sided postauricular abscess s/p multiple I+Ds per ENT currently medically clear and pending psych bed placement for agitation and violent behavior. No changes to current plan-pending psych bed placement. ?? Schizoaffective Disorder Bipolar Type Aggressive/Violent Behavior Suicidal Ideation Substance Abuse: Positive for Cocaine and Benzodiazepines Continues to be agitated, verbally threatening staff, currently in physical vest and wrist restraints. She is medically clear. ENT confirms no further plans at this time. Psych consulted for bed search ?? Plan: - continue constant note teller - patient cannot leave AMA - continue depakote 1000mg BID - continue risperidone 2mg in AM and 3??mg at bedtime - PRN Haldol, Ativan and Benadryl for severe agitation*give haldol and ativan together for best effect - safety restraints as needed - Continue with benztropine 0.5 mg twice daily - Clonidine 0.5mg BID to help with withdrawal symptoms - f/u psych about bed placement ? Right Postauricular Abscess s/p Bedside Needle Aspiration by ENT x??4 CT max face showed abscess in right postauricular soft tissue No current mastoiditis per ENT, s/p drainage x 4 with 18 gauge needle, most recently 03/14 PM Culture of the abscess grew Serratia Remains afebrile confirmed with ENT on 03/16 no further plans for intervention, medically clear??for psych bed s/p 7 day abx Zosyn->levofloxacin ?? Plan: -??If pt has persistent pain, reconsult ENT ? Diabetes Mellitus, type 2 BG at??goal <180 POC this morning 218 Plan: - Lantus 12U at night - Lispro SS -??POC glucose TID and HS -??Hypoglycemia measures in place - f/u AM POC, consider increasing Lantus if continues to have elevated AM glucose ?? Chronic medical problems: HTN: continue coreg 6.25mg BID, losartan 50mg daily chronic pancreatitis: continue pancrelipase GERD: continue pantoprazole 40mg daily ?? Quality Measures: Diet:Cardiac??with paper set up VTE prophylaxis:Lovenox 40mg daily Code status:FULL CODE HCP: Maryanne Will ?? , son updated via phone 03/16 ? Gemini Hernandez MD Internal Medicine PGY 1 Pager [phone] ?? Patient seen and discussed with??Kathleen Liriano MD ? * Kathleen Liriano MD: PERFORM Event Display: Progress Note Hospital Authored Date: Attending Attestation: I have seen and evaluated this patient.?? I have discussed the case and its management with the resident and agree with the findings and plan as documented in the resident???s note. Note * Gemini Hernandez MD: PERFORM, MODIFY, MODIFY, MODIFY, MODIFY, MODIFY Ludin Mcgovern MD S: MODIFY Event Display: Discharge/Transfer Note Hospital Authored Date: Patient: ??AVILA, CARYL ? Age:??56 Years?Sex:??Female?:??1965?? Patient Information Discharge Location: [facility] Primary Care Physician: Jaki Bishop MD Admit Date/Time: 03/09/22 16:07 Discharge Date/Time: 03/18/22 1200 Discharge Disposition Discharge Disposition: transfer to [facility]?? Discharge Diagnosis Schizoaffective disorder, bipolar type (F25.0) Abscess, postauricular (L02.811) Diabetes (E11.9) Hypertension (I10) History of Chronic pancreatitis & Pseudocyst (K86.1) GERD (gastroesophageal reflux disease) (K21.9) Asthma Bipolar Disorder Biventricular HF (heart failure, EF 20-30%) CS (cervical spondylosis) Chronic kidney disease (CKD) Chronic low back pain w/Bilateral LE Radiculopathy (Lumbar DDD, MRI 03/2011) Cirrhosis of liver (Steatohepatitis/NAFLD, Suspected GI Sarcoidosis but no findings sarcoid 2013 liver biopsy) Incisional hernia Nicotine dependence Obesity (BMI 30.0-34.9) Pulmonary HTN, Severe ?? _ Discharge Medications Acetaminophen (acetaminophen 325 mg oral tablet)?650?Milligram?2?tablet?By Mouth?Every 6 hours?as needed?as needed for pain Benztropine (benztropine 1 mg oral tablet)?0.5?Milligram?0.5?tablet?By Mouth?2 times a day Carvedilol (Coreg 6.25 mg oral tablet)?6.25?Milligram?1?tablet?By Mouth?2 times aday Clonidine (cloNIDine 0.1 mg oral tablet)?0.1?Milligram?1?tablet?By Mouth?Daily Divalproex Sodium (divalproex sodium 500 mg oral enteric coated tablet)?1,000?Milligram?ByMouth?2 times a day Docusate-Senna (docusate-senna 50 mg-8.6 mg oral capsule)?1?capsule?By Mouth?2 times a day?as needed?Constipation Durable Medical Equipment (Freestyle Lite Monitor)?See Instructions?for 30?Days?Use when checking blood glucose levels TID. Diagnosis: Type II DM, ICD10 E11.9 Durable Medical Equipment (Freestyle Lite Test Strips)?See Instructions?Use when checking blood glucose levels TID. Diagnosis: Type II DM, ICD10 E11.9 Durable Medical Equipment (Freestyle Lite Lancets)?See Instructions?Use when checking blood glucose levels TID. Diagnosis: Type II DM, ICD10 E11.9 Durable Medical Equipment (Alcohol Wipes)?See Instructions?Use when checking blood glucose levels TID. Diagnosis: Type II DM, ICD10 E11.9 Folic Acid (folic acid 1 mg oral tablet)?1?Milligram?1?tablet?By Mouth?Daily Insulin Glargine (Insulin Glargine Inj)?0.12?Milliliter?12?unit(s)?Subcutaneous Injection?Daily Insulin Lispro (Insulin Lispro KwikPen 100 units/mL injectable solution)?INJECT SUBCUTANEOUSLY 3(THREE) TIMES A DAY BEFORE MEALS VIA sliding scale (150-199 2u; 200-249 4u; 250-299 6u; 300-349 8u;350-399 10u; >400 call [facility]NA) Lactulose (lactulose 10 gm/15 ml oral syrup)?30?Milliliter?20?gram?By Mouth?2 times a day Losartan (losartan 50 mg oral tablet)?50?Milligram?1?tablet?By Mouth?Daily Melatonin (melatonin 3 mg oral tablet)?1?tab(s)?3?Milligram?By Mouth?Daily at bedtime?as needed?Insomnia Nicotine (Nicotine 2 mg gum)?1?Each?2?Milligram?Chew?Every hour?as needed?as needed for smoking cessation Pancrelipase (Creon 12,000 units oral delayed release capsule)?1?capsule?By Mouth?3 times a day Pantoprazole (pantoprazole 40 mg oral delayed release tablet)?1?tab(s)?40?Milligram?By Mouth?Daily Risperidone (RisperDAL 1 mg oral tablet)?2?Milligram?2?tablet?By Mouth?Daily in AM Risperidone (RisperDAL 1 mg oral tablet)?3?Milligram?3?tablet?By Mouth?Daily at bedtime torsemide (torsemide 20 mg oral tablet)?1?tab(s)?20?Milligram?By Mouth?2 times a day ? Quality Measures Tobacco Use Treatment:??Nicotine (Nicotine 2 mg gum)?1?Each?2?Milligram?Chew?Every hour?as needed?as needed for smoking cessation Medications Started none Medications Discontinued none Doses Changed Insulin Glargine (Lantus Solostar Pen 100 units/mL subcutaneous solution)?16?unit(s)?Subcutaneous Injection?Daily?INJECT 16 UNITS UNDER THE SKIN ONCE DAILY changed to 12 units Risperidone (RisperDAL 1 mg oral tablet)?2?Milligram?2?tablet?By Mouth?2 times a day changed to 2mg in AM and 3 mg and PM Divalproex Sodium (divalproex sodium 500 mg oral enteric coated tablet)?1?tab(s)?500?Milligram?By Mouth?2 times a day changed to 1000mg BID PCP Follow-Up/Heads-Up Pt treated for??right postauricular abscess??with multiple I&D's??by ENT and was treated with antibiotics. Admitted To for progressive??and delusional behavior Hospital Course Ms. Avila is a 56yo female with PMH of schizoaffective d/o, HTN, HLD, DM, cirrhosis, CKD, asthma, CHF, and GERD who presented with agitation and was found to have a right-sided postauricular abscess. She underwent??multiple I+Ds per ENT and was??treated with antibiotics.?Hospital course complicated by aggressive and violent behavior requiring physical and chemical restraints. ??On 1228??she was medically clear for discharge and was transferred to [facility]. ?? Schizoaffective Disorder Bipolar Type Aggressive/Violent Behavior Suicidal Ideation Substance Abuse: Positive for Cocaine and Benzodiazepines Continues to be agitated, verbally threatening staff, currently in physical vest and wrist restraints. She is medically clear. ENT confirms no further plans at this time. Psych consulted for bed search, transfer to [facility] 03/18 ?? 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 Right Postauricular Abscess s/p Bedside Needle Aspiration by ENT x??4 CT max face showed abscess in right postauricular soft tissue No current mastoiditis per ENT, s/p drainage x 4 with 18 gauge needle, most recently 03/14 PM Culture of the abscess grew Serratia Remains afebrile confirmed with ENT on 03/16 no further plans for intervention, medically clear??for psych bed s/p 7 day abx Zosyn->levofloxacin ?? Recommendations: -??If pt has??recurrent pain, reconsult ENT ? Diabetes Mellitus, type 2 BG at??goal <180 Home Lantus dose 16U, decreased due to lower PO intake ?? Recommendations: - Lantus 12U at night - Lispro SS -??POC glucose TID and HS -??Hypoglycemia measures in place ?? Chronic medical problems: HTN: continue Coreg 6.25mg BID, losartan 50mg daily Chronic pancreatitis: continue pancrelipase GERD: continue pantoprazole 40mg daily TUD: continue nicotine gum PRN ? Objective ? Vital Signs?? Temperature: 97.5 DegF (03/18/22 10:00:00) Temperature Route: Oral (03/18/22 10:00:00) Pulse Rate: 72 bpm (03/18/22 10:31:00) Respiratory Rate: 18 br/min (03/18/22 10:00:00) Systolic Blood Pressure: 100 mm Hg (03/18/22 10:31:00) Systolic Blood Pressure: 100 mm Hg (03/18/22 10:31:00) Diastolic Blood Pressure: 63 mm Hg (03/18/22 10:31:00) Diastolic Blood Pressure: 63 mm Hg (03/18/22 10:31:00) Blood pressure sites: Arm, left (03/18/22 10:00:00) Pulse Pressure: 37 mm Hg (03/18/22 10:00:00) Oxygen Saturation: 95 % (03/18/22 10:00:00) Mode of Delivery (Oxygen): Room air (03/18/22 10:00:00) Early Warning Score: 5 (03/18/22 11:26:50) ? . Physical Exam General Appearance: resting in bed Respiratory: on room air, speaking in full sentences, no increased WOB MS:?no LE edema Neuro: ??No slurred speech. ??Patient seen moving their upper and lower extremities independently. Psych: agitated, paranoid at times, calm currently Consultants ENT Aydee HAYDEN, Alondra?? ID Dr. Raymond??Manuel Psych: Ximena Vera MD Pending Results COVID-19 (2018 Novel Coronavirus) PCR ordered on 03/15/2022 COVID-19 (2018 Novel Coronavirus) PCR ordered on 03/18/2022 Patient Education Titles Abscess Drainage?? Follow-Up Appointments Added Follow Up ?Time Frame ?Comments Dario HAYDEN, Jaki?1 week: call to discuss follow up visit Patient Instructions You were treated for an abscess behind your right ear while admitted to [facility]. The ear, nose, throat??team??drained the abscess multiple times and??you are treated with antibiotics. You were transferred to [facility] due to concerning and aggressive behaviors. Post Discharge Care Activity: Ambulate with assistance ??3 times a day ??unless otherwise specified Code Status: ?? Full Resuscitation Discharge ?03/18/22 12:13:00 EST Discharge Prescriptions ?None, ??03/18/22 12:13:00 EST Results Discharge Labs BLOOD COUNT & DIFF WBC 7.4 k/mm3 ()?? 03/15/2022 10:12 RBC 4.05 m/mm3 (Low)?? 03/15/2022 10:12 Hgb 12.5 Gm/dL ()?? 03/15/2022 10:12 Hct 37.1 % ()?? 03/15/2022 10:12 MCV 91.6 femtoliters ()?? 03/15/2022 10:12 MCH 30.9 pg ()?? 03/15/2022 10:12 MCHC 33.7 g/dL ()?? 03/15/2022 10:12 Platelet Count 328 k/mm3 ()?? 03/15/2022 10:12 RDW-SD 46.7 femtoliters ()?? 03/15/2022 10:12 MPV 11.2 femtoliters ()?? 03/15/2022 10:12 Nucleated RBC (Automated) 0.0 #/100 WBC'S ()?? 03/15/2022 10:12 Abs. NRBC 0.0 k/mm3 ()?? 03/15/2022 10:12 Abs. Neut 2.1 k/mm3 ()?? 03/11/2022 08:40 Abs. Lymph 5.6 k/mm3 (High)?? 03/11/2022 08:40 Abs. [place] 1.2 k/mm3 (High)?? 03/11/2022 08:40 Abs. Eo 0.3 k/mm3 ()?? 03/11/2022 08:40 Abs. Baso 0.1 k/mm3 ()?? 03/11/2022 08:40 Neut % 22.6 % (Low)?? 03/11/2022 08:40 Lymph % 60.1 % (High)?? 03/11/2022 08:40 [place] % 13.0 % (High)?? 03/11/2022 08:40 Eos % 3.6 % ()?? 03/11/2022 08:40 Baso % 0.6 % ()?? 03/11/2022 08:40 RBC Morphology MODERATE ()?? 03/11/2022 08:40 Imm Gran 0.1 % ()?? 03/11/2022 08:40 Abs. Imm Gran 0.0 k/mm3 ()?? 03/11/2022 08:40 ? CHEM GENERAL Sodium 134 mmol/L ()?? 03/14/2022 03:47 Potassium HEMOLYZED mmol/L ()?? 03/14/2022 03:47 Chloride 96 mmol/L (Low)?? 03/14/2022 03:47 Bicarbonate Level 25 mmol/L ()?? 03/14/2022 03:47 Anion Gap 13 ()?? 03/14/2022 03:47 Glucose Level 141 mg/dL (High)?? 03/14/2022 03:47 Glucose, POC 163 mg/dL (High)?? 03/18/2022 11:25 BUN 21 mg/dL (High)?? 03/14/2022 03:47 Creatinine-Blood 1.1 mg/dL (High)?? 03/14/2022 03:47 Estimated GFR Creatinine 61 ML/MIN/1.73 M2 ()?? 03/14/2022 03:47 Calcium 9.4 mg/dL ()?? 03/14/2022 03:47 Phosphorus 4.7 mg/dL (High)?? 03/14/2022 03:47 Magnesium 1.6 mg/dL ()?? 03/14/2022 03:47 Protein, Total 7.4 Gm/dL ()?? 03/09/2022 13:56 Albumin 4.1 Gm/dL ()?? 03/09/2022 13:56 AG Ratio 1.2 ()?? 03/09/2022 13:56 Alkaline Phosphatase 233 units/L (High)?? 03/09/2022 13:56 Lipase 21 units/L ()?? 03/09/2022 13:56 AST (SGOT) 15 units/L ()?? 03/09/2022 13:56 ALT (SGPT) 11 units/L ()?? 03/09/2022 13:56 Bilirubin, Total 0.4 mg/dL ()?? 03/09/2022 13:56 Lactate 2.8 mmol/L (High)?? 03/09/2022 14:17 ?? ENDOCRINE/TUMOR MARKER Serum Qual INDETERMINATE mIU/mL (Abnormal)?? 03/09/2022 13:56 ? HEME OTHER Hold Blue Top SPECIMEN DISCARDED AFTER 4 HOURS. ()?? 03/09/2022 13:56 ? MISC. CHEMISTRY Ammonia, Venous 37 ??mole/L ()?? 03/09/2022 14:17 Hold Gel Top SPECIMEN DISCARDED AFTER 1 WEEK ()?? 03/15/2022 10:12 ?? TOXICOLOGY/TDM Ethanol, Serum or Plasma NONE DETECTED mg/dL ()?? 03/09/2022 13:56 Valproic Level 67.1 mg/L ()?? 03/14/2022 03:47 Vancomycin Level, Trough 7.7 mg/L (Low)?? 03/12/2022 14:05 Barbiturate Screen, Urine NONE DETECTED ()?? 03/09/2022 20:19 Cannabinoid Screen, Urine NONE DETECTED ()?? 03/09/2022 20:19 Cocaine Metabolite Screen, Urine POSITIVE (Abnormal)?? 03/09/2022 20:19 Benzodiazepine Screen, Urine POSITIVE (Abnormal)?? 03/09/2022 20:19 Amphetamine Screen, Urine NONE DETECTED ()?? 03/09/2022 20:19 Opiate Screen, Urine NONE DETECTED ()?? 03/09/2022 20:19 ? UA/URINALYSIS Appear/Color, Urine LIGHT YELLOW ()?? 03/09/2022 20:19 Specific [place], Urine 1.045 (High)?? 03/09/2022 20:19 pH, Urine 6.5 ()?? 03/09/2022 20:19 Albumin, Urine TRACE (Abnormal)?? 03/09/2022 20:19 Glucose, Urine NEGATIVE ()?? 03/09/2022 20:19 Ketones, Urine NEGATIVE ()?? 03/09/2022 20:19 Bilirubin, Urine NEGATIVE ()?? 03/09/2022 20:19 Hemoglobin, Urine NEGATIVE ()?? 03/09/2022 20:19 Nitrite, Urine NEGATIVE ()?? 03/09/2022 20:19 Leukocyte, Urine NEGATIVE ()?? 03/09/2022 20:19 Urobilinogen NORMAL mg/dL ()?? 03/09/2022 20:19 WBC's, Urine 1 /HPF ()?? 03/09/2022 20:19 RBC's, Urine 1 /HPF ()?? 03/09/2022 20:19 Squamous Epith 3 /HPF ()?? 03/09/2022 20:19 Hold Urine Culture Testing available 48 hours from time of collection. ()?? 03/09/2022 20:19 ? VIROLOGY Influenza A PCR NEGATIVE ()?? 03/09/2022 14:00 Influenza B PCR NEGATIVE ()?? 03/09/2022 14:00 RSV PCR NEGATIVE ()?? 03/09/2022 14:00 COVID-19 by RT-PCR NEGATIVE ()?? 03/16/2022 10:10 COVID-19 PCR Specimen Source NASAL ()?? 03/11/2022 06:59 COVID-19 PCR Result NEGATIVE ()?? 03/11/2022 06:59 ? Microbiology ?? Blood Culture?? Completed?? Source: Blood Body Site: ?? Collected Dt/Tm: 03/09/2022 13:54 Last Updated Dt/Tm: 03/09/2022 13:55 ?SPECIMEN DESCRIPTION : BLOOD L HANDSPECIAL REQUESTS : NONECULTURE : NO GROWTH 5 DAYS.REPORT STATUS : FINAL 03/14/2022 Blood Culture #2?? Completed?? Source: Blood Body Site: ?? Collected Dt/Tm: 03/09/2022 13:54 Last Updated Dt/Tm: 03/09/2022 13:55 ?SPECIMEN DESCRIPTION : BLOOD LSPECIAL REQUESTS : NONECULTURE : NO GROWTH 5 DAYS.REPORT STATUS :FINAL 03/14/2022 COVID-19, RSV, and Flu A/B, Rapid PCR?? Completed?? Source: Nasal Body Site: Nose Collected Dt/Tm: 03/09/2022 13:55 Last Updated Dt/Tm: 03/09/2022 15:49 Anaerobic Culture?? Completed?? Source: Abscess Body Site: Ear Right Collected Dt/Tm: 03/10/2022 17:55 Last Updated Dt/Tm: 03/10/2022 17:55 ?SPECIMEN DESCRIPTION : ABSCESS EAR RTSPECIAL REQUESTS : NONECULTURE : NO ANAEROBES ISOLATEDREPORT STATUS : FINAL 03/12/2022 Fungal Culture, Nonrespiratory?? Completed?? Source: Abscess Body Site: Ear Right Collected Dt/Tm: 03/10/2022 17:54 Last Updated Dt/Tm: 03/10/2022 17:55 ?SPECIMEN DESCRIPTION : ABSCESS EAR RTSPECIAL REQUESTS : NONEDIRECT EXAM : NO FUNGAL ELEMENTS OBSERVEDCULTURE : CULTURE OVERGROWN WITH CONTAMINANTS. NO FUNGI ISOLATED.REPORT STATUS : FINAL 03/16/2022 Wound Deep Culture w/ Gram Smear?? Completed?? Source: Abscess Body Site: Ear Right Collected Dt/Tm: 03/10/2022 17:55 Last Updated Dt/Tm: 03/10/2022 17:55 ?SPECIMEN DESCRIPTION : ABSCESS EAR RTSPECIAL REQUESTS : NONEGRAM STAIN : 4+ POLYMORPHONUCLEAR LEUKOCYTES ?NO ORGANISMS SEENCULTURE : 3+ SERRATIA MARCESCENS ??This isolate was identifiedusing Maldi-TOF ? system These AST results were performed on the Reunify ID and AST ? systemREPORT STATUS : FINAL 2ORGANISM ? 3+ SERRATIA MARCESCENS ??Th is isolate was identified ? using Maldi-TOF system These AST results were performed on the Microscan ID and AST systemMETHOD ? MIN. INHIB. CONC. (MCG/ML)AMPICILLIN ? RESISTANTAMPICILLIN/SULBACTAM RESISTANTAMOXICILLIN/CLAVULAN RESISTANTCEFAZOLIN ?RESISTANTCEFEPIME ? SUSCEPTIBLECEFTRIAXONE ?RESISTANTCIPROFLOXACIN ?SUSCEPTIBLEERTAPENEM ?SUSCEPTIBLEGENTAMICIN ? SUSCEPTIBLELEVOFLOXACIN ? SUSCEPTIBLEMEROPENEM ?SUSCEPTIBLEPIPERACILLIN/TAZOBAC INTERMEDIATETRIMETH/SULFAMETHOX ??SUSCEPTIBLETETRACYCLINE ? RESISTANT COVID-19 (2019 Novel Coronavirus) PCR?? Completed?? Source: Nasal Body Site: Nose Collected Dt/Tm: 03/11/2022 06:59 Last Updated Dt/Tm: 03/11/2022 16:39 ? CT Max/face 03/09 IMPRESSION:? Slightly decreased size of the abscess in the right postauricular soft tissues. No significant change in partial opacification of the right inferior mastoid air cells. ?? CT Head/Brain 03/09 IMPRESSION: ?? No acute intracranial pathology. MRI is more sensitive for intracranial complications of otomastoiditis, if there is strong clinical concern. Findings related to the right mastoid air cells and the adjacent posterior postauricular abscess described on the CT maxillofacial report. ? 20 minutes spent on discharge ? Gemini Hernandez MD Internal Medicine PGY 1 Pager [phone] ?? Patient seen and discussed with??Mera Calvillo DO ?? * Mera Calvillo DO: PERFORM Event Display: Discharge/Transfer Note Hospital Authored Date: [id number] I have seen and evaluated this patient. ??I have discussed the case and its management with the resident and agree with the findings and plan as documented in the resident???s note. * Gemini Hernandez MD: PERFORM Event Display: Patient Education Leaflets Authored Date: [id number] Abscess Drainage ?? 34268 Abscess Drainage An abscess is a pocket of pus that forms around an infection. Pus is a fluid made up of germs??(bacteria), white blood cells, and other matter. Draining pus from an infected area or organ inside the body may be needed. This helps heal the infection. The procedure is??usually??done by a specially trained doctor called an interventional radiologist. How do I get ready for abscess drainage? Follow any instructions you are given on how to prepare, including: ??? Don't eat or drink anythingfor 6??hours before the procedure. ??? Tell the technologist if you are, or could be, or if you are . ??? Tell your healthcare provider and the technologist if you are allergic to??X-ray dye (contrast medium) or other medicines. ??? Be sure your healthcare provider knows about??any health conditions you have and??all medicines you take. You may be told to stop taking some orall of them before the test. This includes: o All prescription medicines o [id number] medicines that don???t need a prescription o Any illegal drugs you may use?? o Herbs, vitamins, kelp, seaweed, cough syrups, and??any??other supplements ?? What happens during abscess drainage? You will change into a hospital gown and lie on an X-ray table. You may lie on your back, front, or side, depending on the site of the abscess. ??? An??IV (intravenous)??line is put into your vein to give you fluids and medicines. You may be given medicine through the IV to help you relax. ??? The skin over the abscess is cleaned. A local anesthetic is applied to numb the skin. ??? Using??a CT scan or ultrasound images as a guide, the radiologist puts aneedle through the skin and guides it to the abscess. The needle is then replaced with a thin, flexible tube (catheter). ??? Pus drains from the abscess through the catheter. A bag or suction bulb will be attached to the catheter to hold the pus as it drains. ??? The drainage catheter will be temporarily sutured or taped to your skin to help secure it and prevent it from moving. ??? The entire procedure may take 30 minutes or longer, depending on the location of the abscess. ?? What happens after abscess drainage? A slight fever is normal for the first 24 hours after the procedure. ??? The catheter and drainage bag will likely remain in place for several days. Follow any instructions you are given for caring for the catheter and drainage site. ??? See your healthcare provider for a follow-up appointment to check the infection and to have the catheter removed. ?? When to call your healthcare provider Call your healthcare provider if you have: ??? Bleeding ??? Fever of 100.4??F (38??C) or higher, oras directed by your healthcare provider ??? Chills ??? New or worsening pain ??? Fluid stops draining from the tube,??the drainage changes color, or the tube moves or comes out ?? Last Reviewed Date: 2021 ?? [id number] [employer]. All rights reserved. This information is not intended as a substitute for professional medical care. Always follow your healthcare professional's instructions. ?? CT Maxillofacial region W contrast IV * [facility] , CIS S: AJ Romero MD, Erica N: VERIFY Event Display: Result: Authored Date: [id number] CT Maxilloface W/ Contrast INDICATION: Hx of Present Illness: SI and HI; Reason: Mastoiditis; Clinical Question(s): Mastoiditis / Mastoiditis TECHNIQUE: Maxillofacial CT was performed with intravenous contrast. 100 cc of Omnipaque 300 was administered intravenously. Reformats were performed in 3 planes. Automatic tube modulation and/or iterative dose reconstruction were used optimize scan parameters. CTDIvol Body: 15.78 mGy, DLP Body: 893 mGy*cm. CTDIvol Head: 18.70 mGy, DLP Head: 526 mGy*cm. COMPARISON: Maxillofacial CT 03/03/2022 FINDINGS: Summer Analyst View Findings, Lines and Tubes: None. Intracranial structures: Visualized portions are unremarkable. Orbits: Normal. No inflammatory fat stranding, mass, or fluid collection. Paranasal sinuses and mastoids: There is again minimal scattered paranasal sinus mucosal thickening. Persistent trace fluid in the inferior right mastoid air cells, without coalescence. Mucosal surfaces: Mucosal surfaces of the nasopharynx and oropharynx appear normal and symmetric. Superficial and deep soft tissues: There is a persistent rim-enhancing fluid collection in the softtissues adjacent to the right mastoid which extends inferiorly towards the attachments of the sternocleidomastoid digastric muscle. The collection measures approximately 3.2 cm AP by 1.3 cm transverse by 3.2 cm superior/inferior. This is slightly decreased. Visualized upper cervical lymph nodes: Normal in size and morphology. Visualized salivary glands: The parotid glands and submandibular glands are normal. Subcentimeter right thyroid nodule is partially imaged, although size threshold for dedicated follow-up. Vascular structures: Atherosclerotic vascular calcifications are noted. Visualized venous structures are patent. Bones and teeth: No acute abnormalities. IMPRESSION: Slightly decreased size of the abscess in the right postauricular soft tissues. No significant change in partial opacification of the right inferior mastoid air cells. WSN: [id number] Ordering Physician: Alia Emerson Dictated By: Erica Romero MD Dictated Date/Time: 03/09/22 3:35 pm Reviewed By: Erica Romero MD Signed By: Erica Romero MD Signed Date/Time: 03/09/22 3:35 pm Transcribed By: YAIR Transcribed Date/Time: 03/09/22 3:[address] Head W contrast IV * [facility] , CIS S: TRANSCRIBE Erica Romero MD: VERIFY Event Display: Result: Authored Date: [id number] CT Head/Brain W/ Contrast Hx of Present Illness: SI and HI; Reason: Behavior Problem; ? abscess; Clinical Question(s): Infection Abscess; Order Comment: TECHNIQUE: Head CT was performed with intravenous contrast, using axial technique and reconstructedin axial and coronal plane. Iterative reconstruction techniques are used to optimize dose and imagequality. COMPARISON: Head CT 01/10/2022. FINDINGS: Summer Analyst View Findings, Lines and Tubes: None. BRAIN and EXTRA-AXIAL SPACES: There are no areas of abnormal enhancement. No parenchymal hemorrhage, midline shift or mass effect. Bullard-white matter differentiation is well preserved. No acute infarct. Patent dural venous sinuses. Grossly normal arterial opacification on this study performed without angiographic technique. Ventricles, sulci and basilar cisterns are normal for age. No subdural or epidural collections. CALVARIUM, SKULL BASE AND SOFT TISSUES: No fractures or suspicious bony lesions Findings related to the right mastoid air cells and the adjacent posterior postauricular abscess described on the CT maxillofacial report. Visualized orbits and globes are intact. IMPRESSION: No acute intracranial pathology. MRI is more sensitive for intracranial complications of otomastoiditis, if there is strong clinical concern. Findings related to the right mastoid air cells and the adjacent posterior postauricular abscess described on the CT maxillofacial report. WSN: [id number] Ordering Physician: Alia Emerson Dictated By: Erica Romero MD Dictated Date/Time: 03/09/22 3:39 pm Reviewed By: Erica Romero MD Signed By: Erica Romero MD Signed Date/Time: 03/09/22 3:39 pm Transcribed By: YAIR Transcribed Date/Time: 03/09/22 3:[address] Abdomen and Pelvis W contrast IV * [facility] , CIS S: TRANSCRIBE Sharri HAYDEN, Rick: VERIFY Osmin HAYDEN, Ahmed: SIGN Event Display: Result: Authored Date: [id number] CT Abd/Pelvis W/ IV Contrast Only HX OF PRESENT ILLNESS: SI and HI; Reason: Other:; LLQ abdominal pain TECHNIQUE: Spiral CT through the abdomen and pelvis with IV contrast formatted in 3 planes. 100 cc of Omnipaque 300 was administered intravenously. This study was performed without oral contrast. Weight-based protocol using automatic tube modulation was used to optimize exposure parameters. COMPARISON: 10/13/2020. FINDINGS: Summer Analyst View Findings, Lines and Tubes: None. Visualized Chest: As compared to 10/13/2020, bilateral pulmonary groundglass opacities have increased. No pleural effusion. The mild cardiomegaly. No pericardial effusion. Diaphragm: Normal. Liver: Unchanged hepatic cirrhosis with heterogeneous enhancement. No suspicious lesions within thelimits of a single phase study. Gallbladder: Absent consistent with prior cholecystectomy. Bile ducts: No biliary ductal dilation. Spleen: Status post splenectomy. Pancreas: Diffuse pancreatic calcifications and unchanged dilated intrahepatic ducts suggestive of chronic pancreatitis, unchanged Adrenal glands: The right adrenal gland is normal. The left adrenal gland is mostly obscured by multiple surgical clips. Kidneys and ureters: Extensive right multifocal scarring, consistent with patient's prior history of pyelonephritis. No perinephric fat stranding bilaterally to suggest a recurrent infection. No suspicious masses or nephrolithiasis. Simple appearing renal cysts are noted, requiring no dedicated follow up. Bladder: Normal. Reproductive organs: Numerous calcified fibroids, mostly unchanged. Stomach, small bowel, and large bowel: Madden's hernia of the mid transverse colon (series 603:[id number]), with a trace amount of adjacent simple fluid. Mild colonic stool burden. Small type I hiatal hernia. Postsurgical changes are seen at the greatergastric curvature. The small bowel is unremarkable. Appendix: Normal. Peritoneum and retroperitoneum: No ascites or pneumoperitoneum. Mild mesenteric congestion. Lymph nodes: No enlarged lymph nodes. Blood vessels: Moderate atherosclerotic vascular calcification. No aortic aneurysm. No evidence of venous thrombosis. Abdominal and pelvic wall: Small umbilical hernia with a neck measuring 3.4 x 2.3 cm in transverse and craniocaudal dimensions, containing a Madden's hernia of the transverse colon as described above. A trace amount of fluid is seen adjacent to the hernia and mild stranding is seen within the fat contained within the hernia. Bones: No acute abnormality. Chronic appearing deformity of the sacrococcygeal angle which may be due to remote trauma. IMPRESSION: Periumbilical Madden's hernia containing small segment of the transverse colon with adjacent mild fat stranding and trace amount of simple fluid. No evidence of bowel obstruction. Correlate with physical examination for hernia reducibility. Increase in amount of bilateral round glass opacities, with differentials including infectious/inflammatory process or chronic pulmonary congestion/edema. Hepatic cirrhosis, unchanged. Results were conveyed via Cortext by Dr. Shaniqua Solorio to Alia Emerson DO on 03/09/2022 at 3:45 PM,with understanding acknowledged. I have personally reviewed the images and I agree with this report. WSN: [id number] Ordering Physician: Alia Emerson Dictated By: Shaniqua Solorio MD Dictated Date/Time: 03/09/22 3:56 pm Reviewed By: Rick Harrell MD Signed By: Rick Harrell MD Signed Date/Time: 03/09/22 4:01 pm Transcribed By: YAIR Transcribed Date/Time: 03/09/22 3:46 pm Portable XR Chest Views * [facility] , CIS S: TRANSCRIBE Melvin Mcdowell MD W: VERIFY Event Display: Result: Authored Date: [id number] Chest Portable Hx of Present Illness: SI and HI; Reason: Shortness of Breath; Clinical Question(s): CHF COMPARISON: 01/10/2022 FINDINGS: LINES AND TUBES: None. LUNGS AND PLEURA: Persistent or recurrent interstitial and central parenchymal hazy opacification likely reflecting pulmonary edema. Lung volumes are low. No pleural effusion. No pneumothorax. HEART, MEDIASTINUM AND MICHELLE: Mild prominence of the cardiac silhouette, unchanged. Normal mediastinal and hilar contour. BONES AND SOFT TISSUES: No acute abnormality. Embolization coils in the epigastrium. IMPRESSION: Findings likely reflecting recurrent interstitial and alveolar edema. Correlate with fluid status. WSN: [id number] Ordering Physician: Alia Emerson Dictated By: Melvin Mcdowell MD Dictated Date/Time: 03/09/22 4:35 pm Reviewed By: Melvin Mcdowell MD Signed By: Melvin Mcdowell MD Signed Date/Time: 03/09/22 4:35 pm Transcribed By: YAIR Transcribed Date/Time: 03/09/22 4:33 pm Patient Care team information Care Team Personnel Name: Daniel Gamino RN Position: [facility] RN Member Role: Primary Care Nurse Name: Lawrence Hendrix Position: [facility] RN Supv Member Role: Primary Care Nurse Name: Rufino Lloyd RN Position: S RN Member Role: Primary Care Nurse Name: Cristina Carpenter RN Position: [facility] RN Member Role: Primary Care Nurse Name: Rosette Noriega RN Position: [facility] SN RN Member Role: Primary Care Nurse Name: Mary Hidalgo RN Position: [facility] PCO RN Member Role: Primary Care Nurse Name: Sissy Duran RN Position: [facility] AMB Nurse Member Role: Primary Care Nurse Name: Rohit Zavaleta RN Position: [facility] RN Member Role: Primary Care Nurse Name: Erlinda Hartman NP Position: [facility] Associate Professional Member Role: Primary Care Nurse Address: Address: [address] [place] [id number] Name: Jong Suazo RN Position: [facility] RN Supv Member Role: Primary Care Nurse Name: Shante Solis RN Position: [facility] RN Member Role: Primary Care Nurse Name: Joshua Prakash RN Position: [facility] RN Member Role: Primary Care Nurse Name: Bettie Vanegas RN Position: [facility] RN Member Role: Primary Care Nurse Name: Jay Marroquin RN Position: [facility] RN Member Role: Primary Care Nurse Name: Sue Purdy RN Position: [facility] RN Member Role: Primary Care Nurse Name: Hector Perez RN Position: [facility] RN Member Role: Primary Care Nurse Name: Aleena Vizcaino RN Position: [facility] RN Member Role: Primary Care Nurse Name: Kacey Wilhelm RN Position: [facility] RN Member Role: Primary Care Nurse Name: Monalisa Barker Position: [facility] RN Member Role: Primary Care Nurse Name: Leslie Malloy RN Position: [facility] RN Member Role: Primary Care Nurse Name: Joaquina Herrera RN Position: [facility] RN Member Role: Primary Care Nurse Name: Diego Bell RN Position: [facility] RN Member Role: Primary Care Nurse Name: Ese Grey Position: [facility] RN Member Role: Primary Care Nurse Name: Chela Najera RN Position: [facility] ED RN W/OE and Tasks Member Role: Primary Care Nurse Name: Tootie Gonzalez RN Position: [facility] RN Member Role: Primary Care Nurse Name: Nancy Monte RN Position: [facility] RN Member Role: Primary Care Nurse Name: Marilee Starkey Position: [facility] RN Member Role: Primary Care Nurse Name: Silvina Dodd RN Position: [facility] RN Member Role: Primary Care Nurse Name: Flaco Clifford DO Position: [facility] Renal MD Member Role: Lifetime Consulting Physician Address: Address: [address] [place] [address] [address] [facility] [place], [place] [id number] Name: Marilee Richardson RN Position: [facility] RN Member Role: Primary Care Nurse Name: Rufino Johnson RN Position: [facility] RN Member Role: Primary Care Nurse Name: Jovita Camargo RN Position: [facility] RN Member Role: Primary Care Nurse Name: Ju Zhu Position: [facility] RN Member Role: Primary Care Nurse Name: Marielle Ester Position: [facility] RN Member Role: Primary Care Nurse Name: Emma Colbert RN Position: [facility] RN Supv Member Role: Primary Care Nurse Name: Hallie Gambino RN Position: [facility] Oncbobo RN Member Role: Primary Care Nurse Name: Maya Ambriz RN Position: [facility] RN Member Role: Primary Care Nurse Name: Luis Burton RN Position: [facility] RN Member Role: Primary Care Nurse Name: Jaki Bishop MD Position: [facility] Primary Care Physician Member Role: PCP Address: Address: [address] [place] [address] Name: Lucian Krause RN Position: [facility] RN Member Role: Primary Care Nurse Name: Leslie Ward RN Position: [facility] RN Member Role: Primary Care Nurse Name: Jacki Gomes RN Position: [facility] RN Member Role: Primary Care Nurse Name: Ximena Saab RN Position: [facility] RN Member Role: Primary Care Nurse Name: Ivette Shankar RN Position: [facility] RN Supv Member Role: Primary Care Nurse Name: Laura Mary RN Position: [facility] SN RN Member Role: Primary Care Nurse Name: Octavio Box RN Position: [facility] RN Member Role: Primary Care Nurse Name: Caren Hernandez RN Position: [facility] RN Supv Member Role: Primary Care Nurse Name: Kinza De La Cruz RN Position: [facility] RN Member Role: Primary Care Nurse Name: Veronica Queen RN Position: [facility] RN Member Role: Primary Care Nurse Name: Perri Bryant RN Position: [facility] RN Member Role: Primary Care Nurse Name: Alba Toro RN Position: [facility] RN Member Role: Primary Care Nurse Name: Nely Wong RN Position: [facility] RN Member Role: Primary Care Nurse Name: Erica Brandon RN Position: [facility] RN Member Role: Primary Care Nurse Name: Adrianna Gonzalez RN Position: [facility] RN Member Role: Primary Care Nurse Name: Annmarie Feldman RN Position: [facility] PCO w/OE and EZ Script Member Role: Primary Care Nurse Name: Chinyere Espinoza RN Position: [facility] RN Member Role: Primary Care Nurse Name: Teresita Diallo RN. Position: [facility] RN Member Role: Primary Care Nurse Name: Tennille Mcgarry RN Position: [facility] Hospital Cafeteria Server Member Role: Primary Care Nurse Name: Vicky Salazar RN Position: [facility] RN Member Role: Primary Care Nurse Name: Spencer Jameson RN Position: [facility] RN Member Role: Primary Care Nurse Name: Jalen Mullins Position: [facility] RN Member Role: Primary Care Nurse Name: Maureen URBINA Attending Position: [facility] ED Medicine MD Name: Adrianna Marsh RN Position: [facility] ED RN W/OE and Tasks Member Role: Patient Care Provider Name: Simona Carrasco Position: [facility] ED [facility] Member Role: Pathology Secretary/Transcriptionist Name: Christine Pizarro Position: [facility] ED TA [facility] Member Role: Pathology Secretary/Transcriptionist Name: Quyen Ace Position: [facility] ED OA Charge Member Role: ED Associate Care Team Related Persons Name: MARYANNE WILL Address: [address] [place] [address] Name: MARYANNE WILL Address: home [address] [place] [address] Name: GEORGIA WILL Address: [place] [address] Name: BALDEV POLANCO Address: [place] [address]
--- OUTSIDE RECORDS SUMMARY | 2023-02-09 22:34 | XMS_ITS | Continuity of Care Document ---
Author Name Unknown Organization [facility] Address [address] [place] [address]- Care Team Providers Care Lieutenant Fire Fighter Name Role Phone Jaki Bishop MD Primary Care Physician Encounter [facility] Date(s): 08/23/22 - 09/22/[address] [address]- Allergies, Adverse Reactions, Alerts Substance Reaction Severity [...] to COVID vaccine 2Admin Note: VIS GIVEN [id number] 3Admin Note: VIS GIVEN 2008- 4Admin Note: vis 5Admin Note: vis 02/06/08 Medications albuterol 90 mcg/inh inhalation powder 2 puffs, Inhalation, Every 4 hours, PRN as needed, PRN Wheezing, # 1 each, 1 Refills, Maintenance, 06/28/22 14:49:00 EDT, Powder, [facility] [id number], Partial fill upon patient request if the prescription is for a schedule I... Start Date: 06/28/22 Status: Ordered Alcohol Wipes See Instructions, # 100 each, Maintenance, Use when checking blood glucose levels TID. Diagnosis: Type II DM, ICD10 E11.9, 04/08/22 16:16:00 EST, Compound, 167, cm, 03/25/22 3:14:00 EST, Height, 113,kg, 03/21/22 0:03:00 EST, Dry Weight Start Date: 04/08/22 Status: Ordered amLODIPine 5 mg oral tablet 5 mg, 1, tablet, By Mouth, Daily, # 30 tablet, Refills 5, Tot. Refills 5, Maintenance, 07/16/22 16:04:00 EDT, Route to Pharmacy Electronically, [facility] [id number], Partialfill upon patient request if the prescription is fo... Start Date: 07/16/22 Status: Ordered benztropine 1 mg oral tablet 0.5 mg, 0.5, tablet, By Mouth, 2 times a day, # 30 tablet, Refills 3, Tot. Refills 3, Maintenance, 09/17/22 1:51:00 EDT, Route to Pharmacy Electronically, [facility] [id number], Partial fill upon patient request if the prescri... Start Date: 09/17/22 Stop Date: 01/15/23 Status: Ordered carvedilol 3.125 mg oral tablet 3.125 mg, 1, tablet, By Mouth, 2 times a day, # 60 tablet, Refills 2, Tot. Refills 2, Maintenance, 09/17/22 1:50:00 EDT, Route to Pharmacy Electronically, [facility] [id number], Partial fill upon patient request if the prescri... Start Date: 09/17/22 Status: Ordered cloNIDine 0.1 mg oral tablet 0.1 mg, 1, tablet, By Mouth, Daily at bedtime, # 30 tablet, Refills 2, Tot. Refills 2, Maintenance,09/17/22 1:50:00 EDT, Route to Pharmacy Electronically, [facility] [id number], Partial fill upon patient request if the prescr... Start Date: 09/17/22 Status: Ordered Creon 12,000 units oral delayed release capsule 1 capsule, By Mouth, 3 times a day, # 90 capsule, 3 Refills, Maintenance, 09/17/22 1:49:00 EDT, EC Capsule, [facility] [id number], Partial fill upon patient request if the prescription is for a schedule II opioid drug., 160, c... Start Date: 09/17/22 Status: Ordered folic acid 1 mg oral tablet 1, tablet, By Mouth, Daily, # 30 tablet, Refills 1, Tot. Refills 1, Maintenance, 09/17/22 1:48:00 EDT, Route to Pharmacy Electronically, [facility] [id number], 160, cm, 07/26/22 12:51:00 EDT, Height, 89.2, kg, 07/21/22 3:29:00... Start Date: 09/17/22 Status: Ordered Freestyle Lite Lancets See Instructions, # 100 each, Refills 0, Tot. Refills 0, Maintenance, Use when checking blood glucose levels TID. Diagnosis: Type II DM, ICD10 E11.9, 04/08/22 16:16:00 EST, Compound, 167, cm, 03/25/22 3:14:00 EST, Height, 113, kg, 03/21/22 0:03:00 EST... Start Date: 04/08/22 Status: Ordered Freestyle Lite Monitor See Instructions, # 1 each, Refills 5, Tot. Refills 5, Maintenance, Use when checking blood glucoselevels TID. Diagnosis: Type II DM, ICD10 E11.9, 03/25/22 12:04:00 EST, Compound, 167, cm, 03/25/22 3:14:00 EST, Height, 113, kg, 03/21/22 0:03:00 EST,... Start Date: 03/25/22 Stop Date: 09/21/22 Status: Ordered Freestyle Lite Test Strips See Instructions, # 100 each, Refills 11, Tot. Refills 11, Maintenance, Use when checking blood glucose levels TID. Diagnosis: Type II DM, ICD10 E11.9, 04/08/22 16:16:00 EST, Compound, 167, cm, 03/25/22 3:14:00 EST, Height, 113, kg, 03/21/22 0:03:00 E... Start Date: 04/08/22 Status: Ordered furosemide 20 mg oral tablet 20 mg, 1, tablet, By Mouth, Daily, # 30 tablet, Refills 1, Tot. Refills 1, Maintenance, 09/17/22 1:50:00 EDT, Route to Pharmacy Electronically, [facility] [id number], Partialfill upon patient request if the prescription is fo... Start Date: 09/17/22 Status: Ordered lactulose 10 gm/15 ml oral syrup 30 mL, By Mouth, 2 times a day, # 1,200 mL, 5 Refills, Maintenance, 09/17/22 1:49:00 EDT, [facility] [id number], 15, 30 mL By Mouth 2 times a day, 160, cm, 07/26/22 12:51:00 EDT, Height, 89.2, kg, 07/21/22 3:29:00 EDT, Dry Weight Start Date: 09/17/22 Status: Ordered Lantus Solostar Pen 100 units/mL subcutaneous solution = 6 units, Subcutaneous Injection, Daily in AM, # 10 mL, 2 Refills, Maintenance, 04/29/22 14:34:00 EST, Solution, [facility], [facility] [id number], Partial fill upon patient request if the prescription is for a schedule II opioid drug.,... Start Date: 04/29/22 Status: Ordered multivitamin Multiple Vitamins oral tablet 1 tablet, By Mouth, Daily, # 90 tablet, 1 Refills, Maintenance, 04/02/22 16:44:00 EST, Tablet, [facility] [id number], Partial fill upon patient request if the prescription isfor a schedule II opioid drug., 1 tablet By Mouth D... Start Date: 04/02/22 Status: Ordered pantoprazole 40 mg oral delayed release tablet 1 tablet, By Mouth, Daily, # 30 tablet, 2 Refills, Maintenance, 06/29/22 15:42:00 EDT, 167, cm, 06/28/22 13:25:00 EDT, Height, 113, kg, 03/21/22 0:03:00 EST, Dry Weight Start Date: 06/29/22 Status: Ordered risperiDONE 2 mg oral tablet 2 mg, 1, tablet, By Mouth, Daily in AM, # 30 tablet, Refills 3, Tot. Refills 3, Maintenance, 04/29/22 14:39:00 EST, Route to Pharmacy Electronically, [facility] [id number], Partial fill upon patient request if the prescription... Start Date: 04/29/22 Stop Date: 08/27/22 Status: Ordered risperiDONE 3 mg oral tablet 3 mg, 1, tablet, By Mouth, Daily at bedtime, # 30 tablet, Refills 3, Tot. Refills 3, Maintenance, 04/29/22 14:39:00 EST, Route to Pharmacy Electronically, [facility] [id number], Partial fill upon patient request if the prescri... Start Date: 04/29/22 Status: Ordered thiamine 100 mg oral tablet 100 mg, 1, tablet, By Mouth, Daily, for 30 days, # 30 tablet, Refills 0, Tot. Refills 0, Acute 10/17/22 1:48:00 EDT, 09/17/22 1:48:00 EDT, Route to Pharmacy Electronically, [facility] [place] [id number], Partial fill upon patient requ... Start Date: 09/17/22 Stop Date: 10/17/22 Status: Ordered tiotropium 2.5 mcg/inh inhalation aerosol 2 puffs, Inhalation, Daily, # 1 each, 5 Refills, Maintenance, 09/17/22 1:52:00 EDT[facility] [place] [place] [facility] [id number], Partial fill upon patient request if the prescription is for a schedule II opioid drug., 160, cm, 07/26/22 12:... Start Date: 09/17/22 Stop Date: 03/16/23 Status: Ordered traZODone 50 mg oral tablet 50 mg, 1, tablet, By Mouth, Daily at bedtime, # 30 tablet, Refills 2, Tot. Refills 2, Maintenance, 09/17/22 1:47:00 EDT, Route to Pharmacy Electronically, [place], [place] - [id number], Partial fill upon patient request if the prescri... Start Date: 09/17/22 Stop Date: 12/16/22 Status: Ordered Problem List Condition Confirmation Course [...] Leukocytosis Confirmed Active Nicotine dependence Confirmed Active Obesity (BMI 30.0-34.9) Confirmed Active Pulmonary HTN, Severe Confirmed Active Schizoaffective disorder, bipolar type Confirmed Active Steatohepatitis (w/Stage III Fibrosis, Liver Biopsy 05/2012) Confirmed Active Syncope and collapse Confirmed Active Tobacco use Confirmed Active Social History Social History Type Response Smoking Status 5-9 cigarettes (betw een 1/4 to 1/2 pack)/day in last 30 days; Interested in cessation: No; Patient wants NRT during admission Yes; Type: Cigarettes entered on: 4/11/22 Sex Patient Care team information Care Team Personnel Name: Lawrence Hendrix Position: [facility] RN Supv Member Role: Primary Care Nurse Name: Rufino Lloyd RN Position: [facility] [...] Nurse Member Role: Primary Care Nurse Name: Sissy Duran RN Position: [facility] AMB Nurse Member Role: Primary Care Nurse Name: Rohit Zavaleta RN Position: [facility] RN Member Role: Primary Care Nurse Name: Erlinda Hartman NP Position: [facility] Associate Professional Member Role: Primary Care Nurse Address: Address: [address] [place] [id number] Name: Shante Solis RN [facility] Member Role: Primary Care Nurse Name: Adrianna Church RN Position: [facility] [...] RN Member Role: Primary Care Nurse Name: eYsenia Hu LPN Position: [facility] [...] RN Member Role: Primary Care Nurse Name: Tootie Gonzalez RN Position: [facility] RN Member Role: Primary Care Nurse Name: Nancy Monte RN Position: S RN Member Role: Primary Care Nurse Name: Marilee Starkey Position: S RN Member Role: Primary Care Nurse Name: Silvina Dodd RN Position: S RN Member Role: Primary Care Nurse Name: Flaco Clifford DO Position: [facility] Renal MD Member Role: Lifetime Consulting Physician Address: Address: [address] [place], [place] [address] [place], [place] [address] Name: Marilee Richardson RN Position: [facility] RN Member Role: Primary Care Nurse Name: Rufino Johnson RN Position: [facility] RN Member Role: Primary Care Nurse Name: Jovita Camargo RN Position: [facility] RN Member Role: Primary Care Nurse Name: Ju Zhu Position: S RN Member Role: Primary Care Nurse Name: Ester Palomares Position: [facility] RN Member Role: Primary Care Nurse Name: Emma Colbert RN Position: [facility] RN Supv Member Role: Primary Care Nurse Name: Hallie Gambino RN Position: [facility] Onco RN Member Role: Primary Care Nurse Name: Maya Ambriz RN Position: [facility] RN Member Role: Primary Care Nurse Name: Bhavna Rendon LPN Position: [facility] RN Member Role: Primary Care Nurse Name: Luis Burton RN Position: [facility] RN Member Role: Primary Care Nurse Name: Jaki Bishop MD Position: [facility] Physician - Primary Care Member Role: PCP Address: Address: [address] [place] [address]- Name: Lucian Krause RN Position: [facility] RN Member Role: Primary Care Nurse Name: Isaiah Combs RN Position: [facility] [...] RN Member Role: Primary Care Nurse Name: Mar Brothers RN Position: [facility] RN Member Role: Primary Care Nurse Name: Ivette Shankar RN Position: [facility] RN Supv Member Role: Primary Care Nurse Name: Laura Mary RN Position: [facility] SN RN Member Role: Primary Care Nurse Name: Mary Guillen RN Position: [facility] RN Member Role: Primary Care Nurse Name: Octavio Box RN Position: [facility] RN Member Role: Primary Care Nurse Name: Nazia Tapia RN Position: [facility] RN Member Role: Primary Care Nurse Name: Pat Jackson RN Position: [facility] RN Member Role: Primary Care Nurse Name: Caren Hernandez RN Position: [facility] RN Supv Member Role: Primary Care Nurse Name: Perri [...] Role: Primary Care Nurse Name: Teresita Diallo RN Position: [facility] RN Member Role: Primary Care Nurse Name: Tennille Mcgarry RN Position: [facility] Hospital Fishing Lure Assembler Member Role: Primary Care Nurse Name: Vicky Salazar RN Position: [facility] RN Member Role: Primary Care Nurse Name: Spencer Jameson RN Position: [facility] RN Member Role: Primary Care Nurse Name: Jalen Mullins Position: [facility] RN Member Role: Primary Care Nurse Care Team Related Persons Name: MARYANNE KELLER Address: [address] [place] [address] Name: MARYANNE KELLER Address: home [address] [place] [address] Name: MARYANNE KELLER JR Address: home [address] [place] [address] Name: GEORGIA KELLER Address: [place] [address] Name: BALDEV POLANCO Address: [place] [address]
--- OUTSIDE RECORDS SUMMARY | 2023-02-09 22:34 | XMS_ITS | Continuity of Care Document ---
Author Name Unknown Organization [facility] Address [address] [place] [address]- Care Team Providers Care Alarm Security Or Surveillance Monitor Name Role Phone Jaki Bishop MD Primary Care Physician [phone] Encounter [facility] Date(s): 06/21/22 - 07/21/[address] [address]- Allergies, Adverse Reactions, Alerts Substance Reaction Severity [...] to COVID vaccine 2Admin Note: VIS GIVEN [id number] 3Admin Note: VIS GIVEN 2008- 4Admin Note: vis 5Admin Note: vis 02/06/08 Medications albuterol 90 mcg/inh inhalation powder 2 puffs, Inhalation, Every 4 hours, PRN as needed, PRN Wheezing, # 1 each, 1 Refills, Maintenance, 06/28/22 14:49:00 EDT, Powder, [facility] [id number], Partial fill upon patient request if the [...] 07/16/22 16:04:00 EDT, Route to Pharmacy Electronically, [facility] [id number], Partialfill upon patient request if the prescription is fo... Start Date: 07/16/22 Status: Ordered benztropine 1 mg oral tablet 0.5 mg, 0.5, tablet, By Mouth, 2 times a day, # 30 tablet, Refills 3, Tot. Refills 3, Maintenance, 04/29/22 14:29:00 EST, Route to Pharmacy Electronically, [facility] [id number], Partial fill upon patient request if the prescr... Start Date: 04/29/22 Stop Date: 08/27/22 Status: Ordered carvedilol 12.5 mg oral tablet TAKE 1 TABLET BY MOUTH EVERY TWELVE HOURS Start Date: 07/20/22 Status: Ordered cloNIDine 0.1 mg oral tablet 0.1 mg, 1, tablet, By Mouth, Daily, # 30 tablet, Refills 3, Tot. Refills 3, Maintenance, 04/29/22 14:29:00 EST, Route to Pharmacy Electronically, [facility] [id number], Partial fill upon patient request if the prescription is... Start Date: 04/29/22 Stop Date: 08/27/22 Status: Ordered Creon 12,000 units oral delayed release capsule 1 capsule, By Mouth, 3 times a day, # 90 capsule, 3 Refills, Maintenance, 04/29/22 14:37:00 EST, E[facility], [place], [place] - [id number], Partial fill upon patient request if the prescription is for a schedule II opioid drug., 167,... Start Date: 04/29/22 Status: Ordered divalproex sodium 500 mg oral enteric coated tablet Take 2 tablet by mouth twice a day Take 2 tablets (=1000mg), twice a day Start Date: 07/20/22 Status: Ordered folic acid 1 mg oral tablet 1, tablet, By Mouth, Daily, # 30 tablet, Refills 1, Maintenance, 06/01/22 16:34:00 EDT, Route to Pharmacy Electronically, [facility], 167, cm, 03/25/22 3:14:00 EST, Height, 113, kg, 03/21/22 0:03:00 EST, Dry Weight Start Date: 06/01/22 Status: Ordered Freestyle Lite Lancets See Instructions, [...] 0:03:00 E... Start Date: 04/08/22 Status: Ordered lactulose 10 gm/15 ml oral syrup See Instructions, TAKE 30mls BY MOUTH two (2) times a day, # 1,200 mL, 1 Refills, Maintenance, 06/03/22 16:20:00 EDT, [facility] [id number], 20, TAKE 30mls BY MOUTH two (2) times a day, 167, cm, 03/25/22 3:14:00 EST, Height, 1... Start Date: 06/03/22 Status: Ordered Lantus Solostar Pen 100 units/mL subcutaneous solution = 6 units, Subcutaneous Injection, Daily in AM, # 10 mL, 2 Refills, Maintenance, 04/29/22 14:34:00 EST, Solution, [facility] [id number], Partial fill upon patient request if the prescription is for a schedule II opioid drug.,... Start Date: 04/29/22 Status: Ordered multivitamin Multiple Vitamins oral tablet 1 tablet, By Mouth, Daily, # 90 tablet, 1 Refills, Maintenance, 04/02/22 16:44:00 EST, Tablet, [facility] [id number], Partial fill upon patient request if the [...] 04/29/22 14:39:00 EST, Route to Pharmacy Electronically, [facility] [id number], Partial fill upon patient request if the prescription... Start Date: 04/29/22 Stop Date: 08/27/22 Status: Ordered risperiDONE 3 mg oral tablet 3 mg, 1, tablet, By Mouth, Daily at bedtime, # 30 tablet, Refills 3, Tot. Refills 3, Maintenance, 04/29/22 14:39:00 EST, Route to Pharmacy Electronically, [facility] [id number], Partial fill upon patient request if the prescri... Start Date: 04/29/22 Status: Ordered thiamine 100 mg oral tablet 100 mg, 1, tablet, By Mouth, Daily, for 30 days, # 30 tablet, Refills 3, Tot. Refills 3, Acute 08/27/22 14:40:00 EDT, 04/29/22 14:40:00 EST, Route to Pharmacy Electronically, [facility] [id number], Partial fill upon patient re... Start Date: 04/29/22 Stop Date: 08/27/22 Status: Ordered tiotropium 2.5 mcg/inh inhalation aerosol 2 puffs, Inhalation, Daily, # 1 each, 5 Refills, Maintenance, 06/28/22 14:48:00 EDT, Inhaler, [facility] [id number], Partial fill upon patient request if the prescription is for a schedule II opioid drug., 167, cm, 06/28/22 13... Start Date: 06/28/22 Stop Date: 12/25/22 Status: Ordered Problem List Condition Confirmation Course [...] but no findings sarcoid 2013 liver biopsy) Confirmed Active Diabetes Confirmed Active [...] Yes; Type: Cigarettes entered on: 06/29/21 Sex Patient Care team information Care Team Personnel Name: Lawrence Hendrix Position: [facility] RN Supv Member Role: Primary Care Nurse Name: Rufino Lloyd RN Position: [facility] RN Member Role: Primary Care Nurse Name: Cristina Carpenter RN Position: [facility] RN Member Role: Primary Care Nurse Name: Rosette Noriega RN Position: [facility] SN RN Member Role: Primary Care Nurse Name: Mary Hidalgo RN Position: [facility] PCO RN Member Role: Primary Care Nurse Name: Sissy Duran RN Position: [facility] AMB Nurse Member Role: Primary Care Nurse Name: Rohit Zavaleta RN Position: [facility] RN Member Role: Primary Care Nurse Name: Erlinda Hartman NP Position: [facility] Associate Professional Member Role: Primary Care Nurse Address: Address: [address] [place] [id number] Name: Jong Suazo RN Position: [facility] RN Supv Member Role: Primary Care Nurse Name: Shante Solis RN Position: [facility] RN Member Role: Primary Care Nurse Name: Joshua Prakash RN Position: [facility] RN Member Role: Primary Care Nurse Name: Bettie Vanegas RN Position: [facility] SN RN Member Role: Primary Care Nurse Name: Jay Marroquin RN Position: [facility] RN Member Role: Primary Care Nurse Name: Adrianna Church RN Position: [facility] RN Member Role: Primary Care Nurse Name: Sue Purdy RN Position: [facility] RN Member Role: Primary Care Nurse Name: Hector Perez RN Position: [facility] RN Member Role: Primary Care Nurse Name: Aleena Vizcaino RN Position: [facility] RN Member Role: Primary Care Nurse Name: Kacey Wilhelm RN Position: [facility] RN Member Role: Primary Care Nurse Name: Monalisa Barker LPN Position: [facility] AMB Nurse Member Role: Primary Care Nurse Name: Leslie Malloy RN Position: [facility] RN Member Role: Primary Care Nurse Name: Yesenia Hu LPN Position: [facility] RN Member Role: Primary Care Nurse Name: Joaquina Herrera RN Position: [facility] RN Member Role: Primary Care Nurse Name: Diego Bell RN Position: [facility] RN Member Role: Primary Care Nurse Name: Ese Grey Position: [facility] RN Member Role: Primary Care Nurse Name: Chela Najera RN Position: [facility] RN Member Role: Primary Care Nurse Name: Tootie Gonzalez RN Position: [facility] RN Member Role: Primary Care Nurse Name: Nancy Monte RN Position: [facility] RN Member Role: Primary Care Nurse Name: Marilee Starkey Position: [facility] RN Member Role: Primary Care Nurse Name: Silvina Dodd RN Position: [facility] RN Member Role: Primary Care Nurse Name: Flaco Clifford DO Position: [facility] Renal MD Member Role: Lifetime Consulting Physician Address: Address: [address] [place] [address] [address] [facility], [place] [address] Name: Marilee Richardson RN Position: [facility] RN Member Role: Primary Care Nurse Name: Rufino Johnson RN Position: [facility] RN Member Role: Primary Care Nurse Name: Jovita Camargo RN Position: [facility] RN Member Role: Primary Care Nurse Name: Ju Zhu Position: [facility] RN Member Role: Primary Care Nurse Name: Ester Palomares Position: [facility] RN Member Role: Primary Care Nurse Name: Emma Colbert RN Position: [facility] RN Supv Member Role: Primary Care Nurse Name: Hallie Gambino RN Position: [facility] Onco RN Member Role: Primary Care Nurse Name: Maya Ambriz RN Position: [facility] RN Member Role: Primary Care Nurse Name: Bhavna Rendon LPN Position: [facility] RN Member Role: Primary Care Nurse Name: Luis Burton RN Position: [facility] RN Member Role: Primary Care Nurse Name: Jaki Bishop MD Position: [facility] Primary Care Physician Member Role: PCP Address: Address: [address] [place] [address] Name: Lucian Krause RN Position: [facility] RN Member Role: Primary Care Nurse Name: Leslie Ward RN Position: [facility] RN Member Role: Primary Care Nurse Name: Jacki Gomes RN Position: [facility] RN Member Role: Primary Care Nurse Name: Ximena Saab RN Position: [facility] RN Member Role: Primary Care Nurse Name: Ivette Shankar RN Position: [facility] RN Supv Member Role: Primary Care Nurse Name: Laura Mary RN Position: [facility] SN RN Member Role: Primary Care Nurse Name: Octavio Box RN Position: [facility] RN Member Role: Primary Care Nurse Name: Nazia Tapia RN Position: [facility] RN Member Role: Primary Care Nurse Name: Pat Jackson RN Position: [facility] RN Member Role: Primary Care Nurse Name: Caren Hernandez RN Position: [facility] RN Supv Member Role: Primary Care Nurse Name: Perri Bryant RN Position: [facility] RN Member Role: Primary Care Nurse Name: Alba Toro RN Position: [facility] RN Member Role: Primary Care Nurse Name: Nely Wong RN Position: [facility] RN Member Role: Primary Care Nurse Name: Erica Brandon RN Position: [facility] RN Member Role: Primary Care Nurse Name: Adrianna Gonzalez RN Position: [facility] RN Member Role: Primary Care Nurse Name: Annmarie Feldman RN Position: [facility] PCO w/OE and EZ Script Member Role: Primary Care Nurse Name: Chinyere Espinoza RN Position: [facility] RN Member Role: Primary Care Nurse Name: Imani RAMIREZ, Teresita Reyes Position: [facility] RN Member Role: Primary Care Nurse Name: Tennille Mcgarry RN Position: [facility] Retanner Member Role: Primary Care Nurse Name: Vicky Salazar RN Position: [facility] RN Member Role: Primary Care Nurse Name: Spencer Jameson RN Position: [facility] RN Member Role: Primary Care Nurse Name: Jalen Mullins Position: [facility] RN Member Role: Primary Care Nurse Care Team Related Persons Name: MARYANNE KELLER Address: [address] [place] [address] Name: MARYANNE KELLER Address: home [address] [place] [address] Name: MARYANNE KELLER JR Address: home [address] [place] [address] Name: GEORGIA KELLER Address: [place] [address] Name: BALDVE POLANCO Address: [place] [address]
--- OUTSIDE RECORDS SUMMARY | 2023-02-09 22:34 | XMS_ITS | Continuity of Care Document ---
Author Name Unknown Organization [facility] Address [address] [place] [address]- Care Team Providers Care Sexual Assault Counsellor Name Role Phone Dario HAYDEN, Jaki Primary Care Physician Encounter [facility] [id number] Date(s): 08/27/19 - 09/26/[address] [address]- [facility] Attending Physician: Admtr, Ar8 Allergies, Adverse Reactions, Alerts Substance Reaction Severity [...] Given Patient Refuses 1Admin Note: VIS GIVEN [id number] 2Admin Note: VIS GIVEN 2008-12 3Admin Note: vis 4Admin Note: vis 02/06/08 Medications acetaminophen 325 mg oral tablet 1, tablet, By Mouth, 4 times a day, PRN, no MORE THAN 4 TABLETS PER DAY., # 60 tablet, Refills 2, Tot. Refills 0, Acute, NEEDED, 08/07/19 23:17:00 EDT, Route to Pharmacy Electronically, [facility], 166, cm, 05/28/19 11:08:00 EDT, Height, [...] 08/07/19 14:24:00 EDT, Route to Pharmacy Electronically, [facility] - [place], [place] -, 166, cm, 05/28/19 11:08:00 EDT, Height, 91.8, kg, 02/23/19 17... Start Date: 08/07/19 Status: Ordered docusate sodium 100 mg oral capsule 100 mg, 1, capsule, By Mouth, 2 times a day, # 60 capsule, Refills 11, Tot. Refills 11, Maintenance, 02/21/19 14:45:44 EST, Route to Pharmacy Electronically, [id number], [place], [place] -, 168, cm, 02/14/19... Start Date: [...] Maintenance,03/27/19 16:10:00 EST, Route to Pharmacy Electronically, [facility] #[id number], 166, cm, 03/27/19 15:26:00 EST, Height, 91.8, kg, 02/23/19 17:03:... Start Date: 03/27/19 Stop Date: 10/23/19 Status: Ordered Glucerna (Vanilla Flavor) Glucerna (Vanilla Flavor), See Instructions, # 60 each, Refills 11, Tot. Refills 11, Maintenance, Drink 1 can BID. 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 Fax to Anna ( [facility], #[phone]), 07/26/19 15... Start Date: 07/26/19 Status: Ordered Golytely - oral powder for reconstitution See Instructions, split prep, # 4,000 mL, 0 Refills, Maintenance, 09/24/19 14:15:00 EDT, REC Powder, [place], [place] -, split prep, 166, cm, 09/24/19 14:00:00 EDT, Height, 91.8, kg,02/23/19 17:03:00 EST, Dry Weight Start Date: 09/24/19 Status: Ordered Humalog Kwik Pen 100 units/mL subcutaneous injection See Instructions, 4 Units for bood sugar above 120 mg/dl and then add 2 Units for every 50 mg/dl rise above 120. Three times a day before meals., # 15 mL, 6 Refills, Maintenance, 05/04/19 12:52:00 EST, [place], [place] - , Humalog ins... Start Date: 05/04/19 Status: Ordered Lantus Solostar Pen 100 units/mL subcutaneous solution See Instructions, This is an increase in dose. 32u QAM & 42 units QHS. Subcutaneous Injection Daily 30 days, # 5 each, 6 Refills, Maintenance, 08/17/19 14:52:00 EDT, Dry Weight Start Date: 08/17/19 Status: Ordered MiraLax oral powder for reconstitution = 17 Gm, By Mouth, 2 times a day, PRN Other, dissolve in water before taking. goal 2-3 bowel movements daily, # 527 Gm, 2 Refills, Maintenance, 07/26/19 8:25:00 EDT, REC Powder, [place], [place] -, 17 Gm By Mouth 2 times a day,PRN:Oth... Start Date: 07/26/19 Status: Ordered multivitamin Multiple Vitamins oral tablet 1 tablet, By Mouth, Daily, # 90 tablet, 1 Refills, Maintenance, 08/07/19 14:23:00 EDT, Tablet, [place], [place] -, 1 tablet By Mouth Daily, [...] Weight Start Date: 07/30/19 Status: Ordered Pen [place], 31 G x 8 mm BD Ultra [...] Attn Dr. Mariano Andrade, Outpatient Psychiatry, at [phone]., See Instructions, # 1 application, Refills 0, Tot. Refills 0, Maintenance, Please draw CBC with dif (for ANC) weekly and fax re... Start Date: 11/21/15 Status: Ordered sacubitril-valsartan 97 mg-103 mg oral tablet 1 tablet, By Mouth, 2 times a day, # 60 tablet, 5 Refills, Maintenance, 08/27/19 7:36:00 EDT, Tablet, [facility] - [place], [place] -, this is an increased, 1 [...] 04/20/19 10:38:00 EST, Route to Pharmacy Electronically, [facility] #[id number], 166, cm, 04/20/19 10:17:00 EST, Height, 91.8, kg, 02/23/19 17:03:00 EST, . 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
--- OUTSIDE RECORDS SUMMARY | 2023-02-09 22:34 | XMS_ITS | Continuity of Care Document ---
Author Name Unknown Organization [facility] Address [address] [place] [address]- Care Team Providers Care Printing Machine Mechanic Name Role Phone Jaki Bishop MD Primary Care Physician Encounter [facility] Date(s): 07/07/21 - 09/03/[address] [address]- Attending Physician: Christen Betts NP Admitting Physician: Christen Betts NP Allergies, Adverse Reactions, Alerts Substance Reaction Severity [...] to COVID vaccine 2Admin Note: VIS GIVEN [id number] 3Admin Note: VIS GIVEN 2008- 4Admin Note: vis 5Admin Note: vis 02/06/08 Medications Abilify 10 mg oral tablet 10 mg, 1, tablet, By Mouth, Daily, # 90 tablet, Refills 3, Tot. Refills 3, Maintenance, 07/07/21 8:56:00 EDT, Route to Pharmacy Electronically, [place], [place] - [id number], Partialfill upon patient request if the prescription [...] 07/07/21 8:56:00 EDT, Route to Pharmacy Electronically, [facility] [id number], Partial fill upon patient request if the prescri... Start Date: 07/07/21 Status: Ordered Comfort EZ Pen [place] 31 gauge x 5/16 USE TO inject insulin 4 (FOUR) TIMES DAILY Start Date: 07/03/21 Status: Ordered Coreg 6.25 mg oral tablet 6.25 mg, 1, tablet, By Mouth, 2 times a day, # 180 tablet, Refills 3, Tot. Refills 3, Maintenance, 07/07/21 8:56:00 EDT, Route to Pharmacy Electronically, [facility] [id number], Partial fill upon patient request if the prescri... Start Date: 07/07/21 Status: Ordered Daily Multiple Vitamins oral tablet 1 tablet, By Mouth, Daily, # 90 tablet, 3 Refills, Maintenance, 07/07/21 8:56:00 EDT, Tablet, [facility] [id number], Partial fill upon patient request if the prescription is for a schedule II opioid drug., 1 tablet By Mouth Da... Start Date: 07/07/21 Status: Ordered divalproex sodium 250 mg oral enteric coated tablet 1 tablet = 250 mg, By Mouth, Daily in AM, # 90 tablet, 3 Refills, Maintenance, 07/07/21 8:56:00 EDT, Tablet, [facility] [id number], Partial fill upon patient request if the prescription is for a schedule II opioid drug., 167,... Start Date: 07/07/21 Status: Ordered divalproex sodium 500 mg oral enteric coated tablet 1 tablet = 500 mg, By Mouth, Daily at bedtime, # 90 tablet, 3 Refills, Maintenance, 07/07/21 8:56:00 EDT, Tablet, [facility] [id number], Partial fill upon patient request if the prescription is for a schedule II opioid drug.,... Start Date: 07/07/21 Status: Ordered Eucerin Unscented topical lotion See Instructions, Apply daily as directed to dry skin. 16 oz, # 1 each, 3 Refills, Maintenance, 07/07/21 9:02:00 EDT, [facility] [id number], Partial fill upon patient requestif the prescription [...] 07/07/21 8:56:00 EDT, Route to Pharmacy Electronically, [facility] [id number], Partial fill upon patient request if the p... Start Date: 07/07/21 Status: Ordered gabapentin 100 mg oral capsule 200 mg, 2, capsule, By Mouth, Daily at bedtime, # 180 capsule, Refills 3, Tot. Refills 3, Maintenance, 07/07/21 8:56:00 EDT, Route to Pharmacy Electronically, [facility] [id number], Partial fill upon patient request if the pre... Start Date: 07/07/21 Status: Ordered guaiFENesin 100 mg/5 mL oral liquid 5 mL = 100 mg, By Mouth, Every 4 hours, PRN for cough, # 300 mL, 0 Refills, Acute 07/07/22 9:05:00 EDT, 07/07/21 9:02:00 EDT, Liquid, [facility] [id number], Partial fill uponpatient request if the prescription [...] 11 Refills, Maintenance, 07/07/21 8:56:00 EDT, Injection, [facility] [id number], Partial fill upon patient request if the [...] a day, # 581 mL, 3 Refills, [facility], 10, TAKE 30mls BY MOUTH 2 (two) times a day, 167, cm, 07/07/21 8:39:00 EDT, Height, 95.6, kg, 06/29/21 18:39:00 EDT, Dry Weight Start Date: 08/10/21 Status: Ordered loratadine 10 mg oral tablet 10 mg, 1, tablet, By Mouth, Daily, # 90 tablet, Refills 3, Tot. Refills 3, Maintenance, 07/07/21 8:56:00 EDT, Route to Pharmacy Electronically, [facility] [id number], Partialfill upon patient request if the prescription is fo... Start Date: 07/07/21 Status: Ordered magnesium oxide 400 mg oral tablet 1 tablet = 400 mg, By Mouth, 2 times a day, # 180 tablet, 3 Refills, Maintenance, 07/07/21 8:56:00 EDT, Tablet, [place], [place] - [id number], Partial fill upon patient request if the prescription is for a schedule II opioid drug., 16... Start Date: 07/07/21 Status: Ordered melatonin 3 mg oral tablet 1 tablet = 3 mg, By Mouth, Daily at bedtime, PRN Insomnia, # 90 tablet, 3 Refills, Maintenance, 07/07/21 8:56:00 EDT, Tablet, [facility] [id number], Partial fill upon patientrequest if the prescription is for a schedule II op... Start Date: 07/07/21 Status: Ordered nicotine 2 mg oral transmucosal lozenge 1 lozenge = 2 mg, By Mouth, Every hour, PRN Other, Nicotine Withdrawal Symptoms (not to exceed 20 lozenges per day), # 72 lozenge, 3 Refills, Maintenance, 07/07/21 8:56:00 EDT, Lozenge, [facility] [id number], Partial fill upon... Start Date: 07/07/21 Status: Ordered pancrelipase 10,000 units-32,000 units-42,000 units oral delayed release capsule 1 capsule, By Mouth, 3 times a day, with each meal and snack, # 270 capsule, 3 Refills, Maintenance, 07/07/21 8:56:00 EDT, CR Capsule, [facility] [id number], Partial fill upon patient request if the [...] 3 Refills, Maintenance, 07/07/21 8:56:00 EDT, Tablet, [facility] [id number], Partial fill upon patient request if theprescription [...] Active H/O tubal ligation(Confirmed) Active [facility] [employer] [facility] [phone](Confirmed) Active Heart failure(Confirmed) Active History of cholecystectomy(Confirmed) [...]
--- OUTSIDE RECORDS SUMMARY | 2023-02-09 22:34 | XMS_ITS | Continuity of Care Document ---
Author Name Unknown Organization [facility] Address [address] [place] [address]- Care Team Providers Care Marine Transport Professionals Name Role Phone Jaki Bishop MD Primary Care Physician [phone] Encounter [facility] Date(s): 07/18/20 - 08/17/[address] [address]- Allergies, Adverse Reactions, Alerts Substance Reaction Severity [...] Given Permanently Refused 1Admin Note: VIS GIVEN [id number] 2Admin Note: VIS GIVEN 2008-12 3Admin Note: vis 4Admin Note: vis 02/06/08 Medications acetaminophen 325 mg oral tablet 1, tablet, By Mouth, 4 times a day, PRN, not to exceed 4 TABLETS PER DAY. Not to exceed 2000 mg/day. PRN Pain, # 60 tablet, Refills 5, Tot. Refills 5, Maintenance, NEEDED, 08/14/20 16:55:00 EDT, Route to Pharmacy Electronically, [facility]... Start Date: 08/14/20 Status: Ordered Alcohol Wipes See Instructions, # 100 each, Refills 2, Tot. Refills 2, Maintenance, 3 times a day before meals and bedtime, 06/26/20 13:27:00 EDT, Supply, 168, cm, 04/16/20 8:30:00 EST, Height, 98.7, kg, 04/11/20 2:10:00 EST, Dry Weight Start Date: 06/26/20 Status: Ordered clozapine 100 mg oral tablet 1 tablet = 100 mg, By Mouth, Daily in AM, # 30 tablet, 0 Refills, Maintenance, 04/16/20 11:06:00 EST, Tablet, [facility] [id number], Partial fill upon patient request if the prescription is for a schedule II opioid drug., 168,... Start Date: 04/16/20 Status: Ordered clozapine 50 mg oral tablet 3 tablet = 150 mg, By Mouth, Daily at bedtime, # 90 tablet, 0 Refills, Maintenance, 04/16/20 11:06:00 EST, Tablet, [facility] [id number], Partial fill upon patient request ifthe prescription is for a schedule II opioid drug.,... Start Date: 04/16/20 Status: Ordered Comfort EZ Pen [place] 31 gauge x 5/16 Comfort EZ Pen [place] 31 gauge x 16 , See Instructions, # 120 each, 9 Refills, Maintenance, USE TO inject insulin 4 (FOUR) TIMES DAILY, 168, cm, 04/16/20 8:30:00 EST, Height, 98.7, kg, 04/11/20 2:10:00 EST, Dry Weight Start Date: 07/11/20 Status: Ordered Coreg 12.5 mg oral tablet 12.5 mg, 1, tablet, By Mouth, 2 times a day, # 180 tablet, Refills 1, Tot. Refills 1, Maintenance, 05/26/20 14:41:00 EST, Route to Pharmacy Electronically, [facility] [id number], Partial fill upon patient request if the prescr... Start Date: 05/26/20 Stop Date: 11/22/20 Status: Ordered docusate sodium 100 mg oral capsule = 100 mg, By Mouth, 2 times a day, PRN Constipation., # 60 capsule, 5 Refills, Maintenance, 07/21/20 10:54:00 EDT, Capsule, [facility] [id number], Partial fill upon patient request if the prescription is for a schedule II opio... Start Date: 07/21/20 Stop Date: 01/17/21 Status: Ordered electric scooter electric scooter, See [...] Maintenance,05/28/20 13:46:00 EST, Route to Pharmacy Electronically, [facility] [id number], Partial fill upon patient request if the presc... Start Date: 05/28/20 Status: Ordered Danette-oscar 8.6 mg tablet Danette-oscar 8.6 mg tablet, See Instructions, # 60 tablet, 2 Refills, Maintenance, TAKE 2 TABLETS BY MOUTH DAILY AT BEDTIME, 168, cm, 04/16/20 8:30:00 EST, Height, 98.7, kg, 04/11/20 2:10:00 EST, Dry Weight Start Date: 07/24/20 Status: Ordered Glucerna (Vanilla Flavor) Glucerna (Vanilla Flavor), See Instructions, # 60 each, Refills 11, Tot. Refills 11, Maintenance, Drink 1 can BID. 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 Fax to [facility] ( [facility], #[phone]), 06/06/20 19... Start Date: 06/06/20 Status: Ordered Glucose Test Strips See Instructions, # 100 each, Refills 2, Tot. Refills 2, Maintenance, 3 times a day before meals and bedtime, 06/26/20 13:27:00 EDT, Supply, 168, cm, 04/16/20 8:30:00 EST, Height, 98.7, kg, 04/11/20 2:10:00 EST, Dry Weight Start Date: 06/26/20 Status: Ordered Heating Pad Heating Pad, See [...] mL, 1 Refills, Maintenance, 04/16/20 11:07:00 EST, [facility] [id number],... Start Date: 04/16/20 Status: Ordered lactulose 10 gm/15 ml oral syrup 30 mL, By Mouth, 2 times a day, # 581 mL, 3 Refills, Maintenance, 06/27/20 11:11:00 EDT, [facility] [id number], 10, 30 mL By Mouth 2 times a day, 168, cm, 04/16/20 8:30:00 EST, Height, 98.7, kg, 04/11/20 2:10:00 EST, Dry Weight Start Date: 06/27/20 Status: Ordered Lancet Device Pen Lancet Device Pen, See Instructions, # 1 each, Refills 1, Tot. Refills 1, Maintenance, Use to checkglucose levels. Diagnosis: Type II DM, ICD10 E11.9, 05/05/20 17:54:00 EST, Supply, 168, cm, 04/16/20 8:30:00 EST, Height, 98.7, kg, 04/11/20 2:10:00 ES... Start Date: 05/05/20 Status: Ordered Lancets See Instructions, # 100 each, Refills 2, Tot. Refills 2, Maintenance, 3 times a day before meals and bedtime, 06/26/20 13:27:00 EDT, Supply, 168, cm, 04/16/20 8:30:00 EST, Height, 98.7, kg, 04/11/20 2:10:00 EST, Dry Weight Start Date: 06/26/20 Status: Ordered Lantus Solostar Pen 100 units/mL subcutaneous solution = 26 units, Subcutaneous Injection, Daily at bedtime, This is an increase in dose, # 5 each, 3 Refills, Maintenance, 07/29/20 10:17:00 EDT, Solution, [facility] [place] - [id number], 168, cm, 04/16/20 8:30:00 EST, Height, 98.7, kg, 2... Start Date: 07/29/20 Status: Ordered loratadine 10 mg oral tablet See Instructions, TAKE ONE TABLET BY MOUTH DAILY, # 30 tablet, Refills 5, Tot. Refills 5, 05/01/20 8:18:00 EST, Instructions Replace Required Details, Route to Pharmacy Electronically, [facility] [place] - [id number], 168, cm, 04/16/20... Start Date: 05/01/20 Status: Ordered multivitamin Multiple Vitamins oral tablet 1 tablet, By Mouth, Daily, # 90 tablet, 1 Refills, Maintenance, 05/26/20 13:28:00 EST, Tablet, [facility] [place] - [id number], 1 tablet By Mouth Daily, 168, cm, [...] 0 Refills, Maintenance, 04/16/20 11:08:00 EST, [facility], [place], [place] - [id number], Partial fill upon patient request if the [...] acid., # 30 tablet, 2 Refills, Maintenance, 06/26/20 13:27:00 EDT, 168, cm, 04/16/20 8:30:00 EST, Height, 98.7, kg, 04/11/20 2:10:00 EST, Dry Weight Start Date: 06/26/20 Status: Ordered recliner recliner, See Instructions, # 1 each, Refills 0, Tot. Refills 0, Maintenance, use daily, Dx: CHF I50.9 Please fax to Zach , 04/29/20 17:20:00 EST, Supply Start Date: 04/29/20 Status: Ordered sacubitril-valsartan 97 mg-103 mg oral tablet 1 tablet, By Mouth, 2 times a day, # 60 tablet, 5 Refills, Maintenance, 07/14/20 16:30:00 EDT, Tablet, [place], [place] - [id number], this is an increased, 1 tablet By Mouth 2 times a day,x30 days, 168, cm, 04/16/20 8:30:00 EST, Heigh... Start Date: 07/14/20 Stop Date: 01/10/21 Status: Ordered torsemide 20 mg oral tablet 1 tablet = 20 mg, By Mouth, Daily, # 30 tablet, 1 Refills, Maintenance, 04/16/20 11:09:00 EST, Tablet, [facility] [id number], Partial fill upon patient request if the prescription is for a schedule II opioid drug., 168, cm, 01... Start Date: 04/16/20 Stop Date: 04/11/21 Status: Ordered Zenpep 10,000 units-32,000 units-42,000 units oral delayed release capsule 1 capsule, By Mouth, 3 times a day, # 90 capsule, 0 Refills, Maintenance, 04/16/20 11:09:00 EST, [place], [place] - [id number], 1 capsule By Mouth 3 times a [...] Active H/O tubal ligation(Confirmed) Active BHN/ [facility] [phone](Confirmed) Active History of cholecystectomy(Confirmed) Active Hypertension(Confirmed) Active [...]
--- OUTSIDE RECORDS SUMMARY | 2023-02-09 22:34 | XMS_ITS | Continuity of Care Document ---
Author Name Unknown Organization [facility] Address [address] [place] [address]- Care Team Providers Care Senior Government Program Analyst Name Role Phone Dario HAYDEN, Jaki Primary Care Physician Encounter [facility] Date(s): 01/29/20 - 02/28/[address] [address]- Allergies, Adverse Reactions, Alerts Substance Reaction Severity [...] Given Permanently Refused 1Admin Note: VIS GIVEN [id number] 2Admin Note: VIS GIVEN 2008-12 3Admin Note: vis 4Admin Note: vis 02/06/08 Medications acetaminophen 325 mg oral tablet 1, tablet, By Mouth, 4 times a day, PRN, no MORE THAN 4 TABLETS PER DAY., # 60 tablet, Refills 1, Tot. Refills 0, Acute, NEEDED, 11/12/19 14:29:00 EDT, Route to Pharmacy Electronically, [facility], 168, cm, 11/12/19 9:05:00 EDT, Height, 106.8,... [...] 02/12/20 15:48:00 EST, Route to Pharmacy Electronically, [facility] - [place], [place] - [id number], Partial fill upon patient request, 168, cm, ... Start Date: 02/12/20 Status: Ordered Docusate = 100 mg, 2 times a day, 0 Refills, Maintenance, 10/11/19 0:28:00 EDT Start Date: 10/11/19 Status: Ordered gabapentin 100 mg oral capsule [...] Replace Required Details, Route to Pharmacy Electronically, [place], [place] - [id number], 168, cm, 12/17/19... Start Date: 02/01/20 Status: [...] 1 Refills, Maintenance, 08/07/19 14:23:00 EDT, Tablet, [place], [place] -, 1 tablet By Mouth Daily, [...] 5 Refills, Maintenance, 08/27/19 7:36:00 EDT, Tablet, [facility] - [place], [place] -, this is an increased, 1 [...] Active H/O tubal ligation(Confirmed) Active BHN/BH CP Electrical Tests Supervisor/Janet salvador [facility] [phone](Confirmed) Active History of cholecystectomy(Confirmed) Active Hypertension(Confirmed) Active [...]
--- OUTSIDE RECORDS SUMMARY | 2023-02-09 22:34 | XMS_ITS | Continuity of Care Document ---
Author Name Unknown Organization [facility] Address [address] [place] [id number]- Care Team Providers Care Dust Collector Attendant Name Role Phone Jaki Bishop MD Primary Care Physician [place] [facility] [place]10[place] - 10/11/[address] [address]- [facility] Encounter Diagnosis Fall(Final) - 10/10/19 Discharge Disposition: A-D/C Home Attending Physician: Nadia Rodriguez MD Admitting Physician: Brian Morillo MD Referring Physician: Not on Staff, Referring MD Allergies, Adverse Reactions, Alerts Substance Reaction Severity Status predniSONE Active ZyPREXA Active Immunizations Not Given Vaccine Date Status Refusal Reason pneumococcal 23-valent vaccine 10/11/19 Not Given Permanently Refused Medications acetaminophen 325 mg oral tablet 650 mg, 2, tablet, 3 times a day, PRN, Refills 0, Maintenance, as needed for fever, 10/10/19 23:41:00 EDT Start Date: 10/10/19 Status: Ordered Admelog SoloStar 100 units/mL injectable solution See Instructions, 0 Refills, Maintenance, 10/10/19 23:41:00 EDT Start Date: 10/10/19 Status: Ordered benztropine 0.5 mg oral tablet 0.5 mg, 1, tablet, By Mouth, Daily at bedtime, Refills 0, Maintenance, 10/10/19 23:41:00 EDT Start Date: 10/10/19 Status: Ordered carvedilol 25 mg oral tablet 25 mg, 1, tablet, 2 times a day, Refills 0, Maintenance, 10/10/19 23:41:00 EDT Start Date: 10/10/19 Status: Ordered clozapine 50 mg oral tablet See Instructions, 150 mg daily at bedtime, 0 Refills, Maintenance, 10/10/19 23:40:00 EDT, Tablet Start Date: 10/10/19 Status: Ordered Daily Multiple Vitamins oral tablet 1 tablet, Daily, 0 Refills, Maintenance, 10/10/19 23:41:00 EDT Start Date: 10/10/19 Status: Ordered Docusate = 100 mg, 2 times a day, 0 Refills, Maintenance, 10/11/19 0:28:00 EDT Start Date: 10/11/19 Status: Ordered Entresto 97 mg-103 mg oral tablet 1 tablet, 2 times a day, 0 Refills, Maintenance, 10/10/19 23:41:00 EDT Start Date: 10/10/19 Status: Ordered gabapentin 100 mg oral capsule 200 mg, 2, capsule, 2 times a day, Refills 0, Maintenance, 10/10/19 23:41:00 EDT Start Date: 10/10/19 Status: Ordered GaviLyte-G oral powder for reconstitution 0 Refills, Maintenance, 10/10/19 23:41:00 EDT Start Date: 10/10/19 Status: Ordered haloperidol 2 mg/mL oral concentrate [...] EDT Start Date: 10/11/19 Status: Ordered MiraLax Powder = 17 Gm, By Mouth, 2 times a day, 0 Refills, Maintenance, 10/11/19 0:39:00 EDT Start Date: 10/11/19 Status: Ordered oxyCODONE 5 mg oral tablet 5 mg, 1, tablet, By Mouth, Every 8 hours, PRN, for 5 days, # 10 tablet, Refills 0, Tot. Refills 0, Acute 10/16/19 10:43:00 EDT, Pain , Severe, 10/11/19 10:43:00 EDT, Route to Pharmacy Electronically,[facility] - [place], [place] -, Partial fill u... Start Date: 10/11/19 Stop Date: 10/16/19 Status: Ordered pantoprazole 40 mg oral delayed release tablet 1 tablet = 40 mg, Daily, 0 Refills, Maintenance, 10/10/19 23:41:00 EDT Start Date: 10/10/19 Status: Ordered rollator walker rollator walker, See Instructions, # 1 each, Refills 0, Tot. Refills 0, Maintenance, Rollator walker Diagnosis: fall, difficulty ambulation, 10/11/19 10:45:00 EDT, Supply Start Date: 10/11/19 Status: Ordered spironolactone 25 mg oral tablet [...] 23:41:00 EDT Start Date: 10/10/19 Status: Ordered Results Radiology Reports * Exam Date Time Procedure Performing Provider Status 10/10/19 6:55 PM Foot Min 3 Views Right John , Car men; Auth (Verified) Notes: (Foot Min 3 Views Right) Reason For Exam: with Pain;Trauma RESULT: Foot Min 3 Views Right Foot Min 3 Views Right, 3 views Reason: Trauma; with Pain; Clinical Question(s): Fracture COMPARISON: None. FINDINGS: Irregularities are seen at the lateral aspect of the distal end of the proximal phalanx of the right third toe suspicious for an acute fracture. Please correlate clinically. A short lucency is seen at the base of the proximal phalanx of the right great toe which may be dueto a nutrient vessel. Please correlate clinically. An accessory ossicle is seen at its lateral aspect. The rest of the right foot shows no other area of a radiolucency. No arthritic changes. No significant soft tissue swelling. Fracture versus accessory ossicle at the right distal talus. IMPRESSION: Possible acute fracture at the distal end of proximal phalanx of right third toe. Questionable acute fracture at the base of the proximal phalanx of the great toe. No associated soft tissue swelling. Please correlate clinically. The report was discussed with Dr. Linnette Hammond at [facility] of [facility] at 7:15 PM on 10/08/2019. WSN: [id number] Ordering Physician: Laureen Headley Dictated By: Denis Talbert MD Dictated Date/Time: 10/10/19 7:23 pm Reviewed By: Denis Talbert MD Signed By: Denis Talbert MD Signed Date/Time: 10/10/19 7:23 pm Transcribed By: YAIR Transcribed Date/Time: 10/10/19 7:21 pm * Exam Date Time Procedure Performing Provider Status 10/10/19 6:23 PM Chest Portable Heidy Talbot; Auth (Verified) Notes: (Chest Portable) Reason For Exam: Pain;Other: RESULT: Chest Portable Chest Portable Reason: Other:; Pain; Clinical Question(s): Other:; Fracture, pneumothorax, pulmonary contusion COMPARISON: None. FINDINGS: LINES AND TUBES: None. LUNGS AND PLEURA: Hazy airspace opacities and interstitial prominence are present in the lungs bilaterally, greatest in the left lower lung. No pleural effusion. Greatest in No pneumothorax. HEART, MEDIASTINUM AND MICHELLE: Moderate prominence of the cardiac silhouette, accentuated by AP technique. Normal mediastinal and hilar contour. BONES AND SOFT TISSUES: No acute abnormality. No displaced fracture. Embolization coils are present in the left upper quadrant. IMPRESSION: 1. Hazy airspace opacities and interstitial prominence in the lungs bilaterally, with opacity greatest in the left lower lung. Appearance is nonspecific, may reflect chronic lung disease, infectious/inflammatory change, edema, or contusion. A CT of the chest has been ordered at the time of this dictation and will provide further characterization. 2. Moderate prominence of the cardiac silhouette. 3. Embolization coils in the left upper quadrant. WSN: [id number] Ordering Physician: Laureen Headley Dictated By: Nely St MD Dictated Date/Time: 10/10/19 6:43 pm Reviewed By: Nely St MD Signed By: Nely St MD Signed Date/Time: 10/10/19 6:43 pm Transcribed By: YAIR Transcribed Date/Time: 10/10/19 6:38 pm Vital Signs Most recent to oldest [Reference Range]: 1 2 3 Height 168 cm (10/11/19 10:56 AM) 168 cm (10/11/19 8:00 AM) 168 cm (10/11/19 4:16 AM) Weight 109.3 kg (10/10/19 11:14 PM) Oxygen Saturation [94-100 %] 96 % (10/11/19 10:56 AM) 98 % (10/11/19 8:00 AM) 97 % (10/11/19 4:16 AM) Pulse Rate [55-90 bpm] 73 bpm (10/11/19 10:56 AM) 75 bpm (10/11/19 9:00 AM) 75 bpm (10/11/19 8:00 AM) Body Mass Index [18.5-24.99] 38.73 *>HHI* (10/10/19 11:14 PM) Blood Pressure [90-138/55-84 mm Hg] 108/71mm Hg (10/11/19 10:56 AM) 122/70mm Hg (10/11/19 9:00 AM) 122/70mm Hg (10/11/19 8:00 AM) Respiratory Rate [16-30 br/min] 18 br/min (10/11/19 11:22 AM) 20 br/min (10/11/19 10:56 AM) 18 br/min (10/11/19 10:42 AM) Temperature [96.8-100.4 DegF] 97.1 DegF (10/11/19 10:56 AM) 98.1 DegF (10/11/19 8:00 AM) 98.0 DegF (10/11/19 4:16 AM) Mode of Delivery (Oxygen) Room air (10/11/19 10:56 AM) Room air (10/11/19 8:00 AM) Room air (10/11/19 4:16 AM) Blood pressure sites Arm, left (10/11/19 10:56 AM) Arm, left (10/11/19 8:00 AM) Arm, left (10/11/19 4:16 AM) Temperature Route Oral (10/11/19 10:56 AM) Oral (10/11/19 8:00 AM) Oral (10/11/19 4:16 AM) Dry Weight 109.3 kg (10/10/19 11:14 PM)
--- OUTSIDE RECORDS SUMMARY | 2023-02-09 22:34 | XMS_ITS | Continuity of Care Document ---
Author Name Unknown Organization [facility] Address [address] [place] [address]- Care Team Providers Care Shipping Weigher Name Role Phone Jaki Bishop MD Primary Care Physician [phone] Encounter [facility] Date(s): 01/18/22 - 02/17/[address] [id number] Allergies, Adverse Reactions, Alerts Substance Reaction Severity [...] to COVID vaccine 2Admin Note: VIS GIVEN [id number] 3Admin Note: VIS GIVEN 2008- 4Admin Note: vis 5Admin Note: vis 02/06/08 Medications benztropine 1 mg oral tablet 0.5 mg, 0.5, tablet, By Mouth, 2 times a day, # 30 tablet, Refills 0, Tot. Refills 0, Maintenance, 02/02/22 9:36:00 EST, Route to Pharmacy Electronically, [facility] [id number], Partial fill upon patient request if the prescri... Start Date: 02/02/22 Status: Ordered cloNIDine 0.1 mg oral tablet 0.05 mg, 0.5, tablet, By Mouth, Daily, # 15 tablet, Refills 0, Tot. Refills 0, Maintenance, 02/02/22 9:36:00 EST, Route to Pharmacy Electronically, [facility] [id number], Partial fill upon patient request if the prescription i... Start Date: 02/02/22 Status: Ordered Coreg 6.25 mg oral tablet 6.25 mg, 1, tablet, By Mouth, 2 times a day, # 60 tablet, Refills 0, Tot. Refills 0, Maintenance, 02/02/22 9:36:00 EST, Route to Pharmacy Electronically, [facility] [id number], Partial fill upon patient request if the prescrip... Start Date: 02/02/22 Status: Ordered Creon 12,000 units oral delayed release capsule 1 capsule, By Mouth, 3 times a day, # 90 capsule, 0 Refills, Maintenance, 02/02/22 9:39:00 EST, EC Capsule, [facility] [id number], Partial fill upon patient request if the prescription is for a schedule II opioid drug., 167, c... Start Date: 02/02/22 Status: Ordered divalproex sodium 500 mg oral enteric coated tablet 1 tablet = 500 mg, By Mouth, 2 times a day, # 60 tablet, 0 Refills, Maintenance, 02/02/22 9:36:00 EST, Tablet, [facility] [id number], Partial fill upon patient request if theprescription is for a schedule II opioid drug., 167... Start Date: 02/02/22 Status: Ordered folic acid 1 mg oral tablet 1 mg, 1, tablet, By Mouth, Daily, # 30 tablet, Refills 1, Tot. Refills 1, Maintenance, 02/02/22 9:36:00 EST, Route to Pharmacy Electronically, [facility] [id number], Partial fill upon patient request if the prescription is for... Start Date: 02/02/22 Status: Ordered losartan 50 mg oral tablet 50 mg, 1, tablet, By Mouth, Daily, # 30 tablet, Refills 0, Tot. Refills 0, Maintenance, 02/02/22 9:37:00 EST, Route to Pharmacy Electronically, [facility] [id number], Partialfill upon patient request if the prescription is fo... Start Date: 02/02/22 Status: Ordered melatonin 3 mg oral tablet 1 tablet = 3 mg, By Mouth, Daily at bedtime, PRN Insomnia, # 30 tablet, 0 Refills, Maintenance, 02/02/22 9:37:00 EST, Tablet, [facility] [id number], Partial fill upon patientrequest if the prescription is for a schedule II op... Start Date: 02/02/22 Status: Ordered Pancrelipase Capsule 1 capsule = 10,000 units, By Mouth, 3 times a day with meals, 0 Refills, Maintenance, 02/02/22 9:39:00 EST, Capsule, Partial fill upon patient request if the prescription is for a schedule II opioid drug. Start Date: 02/02/22 Status: Ordered pantoprazole 40 mg oral delayed release tablet 1 tablet = 40 mg, By Mouth, Daily, # 30 tablet, 0 Refills, Maintenance, 02/02/22 9:39:00 EST, EC Tablet, 167, cm, 02/02/22 9:31:00 EST, Height, 98, kg, 01/20/22 19:16:00 EDT, Dry Weight Start Date: 02/02/22 Status: Ordered RisperDAL 1 mg oral tablet 2 mg, 2, tablet, By Mouth, 2 times a day, # 120 tablet, Refills 0, Tot. Refills 0, Maintenance, 02/02/22 9:39:00 EST, Route to Pharmacy Electronically, [place], [place] - [id number],Partial fill upon patient request if the prescripti... Start Date: 02/02/22 Status: Ordered torsemide 20 mg oral tablet 1 tablet = 20 mg, By Mouth, 2 times a day, # 60 tablet, 0 Refills, Maintenance, 02/02/22 9:40:00 EST, Tablet, [place], [place] - [id number], Partial fill upon patient request if the [...] Active Nicotine dependence Confirmed Active Obese class II Confirmed Active Obesity (BMI 30.0-34.9) Confirmed Active [...] Team Personnel Name: Daniel Gamino RN Position: [facility] RN Member Role: Primary Care Nurse Name: Lawrence Hendrix Position: [facility] RN Supv Member Role: Primary Care Nurse Name: Rufino Lloyd RN Position: [facility] RN Member Role: Primary Care Nurse Name: Cristina Carpenter RN Position: [facility] RN Member Role: Primary Care Nurse Name: Rosette Noriega RN Position: [facility] SN RN Member Role: Primary Care Nurse Name: Mary Hidalgo RN Position: [facility] PCO RN Member Role: Primary Care Nurse Name: Sissy Duran RN Position: [facility] AMB Nurse Member Role: Primary Care Nurse Name: Rohit Zavaleta RN Position: [facility] RN Member Role: Primary Care Nurse Name: Erlinda Hartman NP Position: [facility] Associate Professional Member Role: Primary Care Nurse Address: Address: [address] [place] [id number] Name: Jong Suazo RN Position: [facility] RN Supv Member Role: Primary Care Nurse Name: Shante Solis RN Position: [facility] RN Member Role: Primary Care Nurse Name: Bettie Vanegas RN Position: [facility] RN Member Role: Primary Care Nurse Name: Jay Marroquin RN Position: [facility] RN Member Role: Primary Care Nurse Name: Sue Purdy RN Position: [facility] RN Member Role: Primary Care Nurse Name: Hector Perez RN Position: [facility] RN Member Role: Primary Care Nurse Name: Aleena Vizcaino RN Position: [facility] RN Member Role: Primary Care Nurse Name: Kacey Wilhelm RN Position: [facility] RN Member Role: Primary Care Nurse Name: Monalisa Barker Position: [facility] RN Member Role: Primary Care Nurse Name: Leslie Malloy RN Position: [facility] RN Member Role: Primary Care Nurse Name: Joaquina Herrera RN Position: [facility] RN Member Role: Primary Care Nurse Name: Diego Bell RN Position: [facility] RN Member Role: Primary Care Nurse Name: Ese Grey Position: [facility] RN Member Role: Primary Care Nurse Name: Chela Najera RN Position: [facility] MALOU RN W/OE and Tasks Member Role: Primary Care Nurse Name: Tootie Gonzalez RN Position: [facility] RN Member Role: Primary Care Nurse Name: Nancy Monte RN Position: [facility] RN Member Role: Primary Care Nurse Name: Marilee Starkey Position: S RN Member Role: Primary Care Nurse Name: Silvina Dodd RN Position: [facility] RN Member Role: Primary Care Nurse Name: Kiran Molina RN Position: S RN Member Role: Primary Care Nurse Name: Flaco Clifford DO Position: [facility] Renal MD Member Role: Lifetime Consulting Physician Address: Address: [address] [place], [place] [address] [place] [address]- Name: Marilee Richardson RN Position: [facility] RN Member Role: Primary Care Nurse Name: Rufino Johnson RN Position: [facility] RN Member Role: Primary Care Nurse Name: Jovita Camargo RN Position: [facility] RN Member Role: Primary Care Nurse Name: Ju Zhu Position: [facility] RN Member Role: Primary Care Nurse Name: Ester Palomares Position: [facility] RN Member Role: Primary Care Nurse Name: Emma Colbert RN Position: [facility] RN Supv Member Role: Primary Care Nurse Name: Hallie Gambino RN Position: [facility] Onco RN Member Role: Primary Care Nurse Name: Maya Ambriz RN Position: [facility] RN Member Role: Primary Care Nurse Name: Kristen Gar RN Position: [facility] RN Member Role: Primary Care Nurse Name: Luis Burton RN Position: [facility] RN Member Role: Primary Care Nurse Name: Jaki Bishop MD Position: [facility] Primary Care Physician Member Role: PCP Address: Address: [address] [place] [address]- Name: Leslie Ward RN Position: [facility] RN Member Role: Primary Care Nurse Name: Jacki Gomes RN Position: [facility] RN Member Role: Primary Care Nurse Name: Ximena Saab RN Position: [facility] RN Member Role: Primary Care Nurse Name: Ivette Shankar RN Position: [facility] RN Supv Member Role: Primary Care Nurse Name: Laura Mary RN Position: [facility] SN RN Member Role: Primary Care Nurse Name: Octavio Box RN Position: [facility] RN Member Role: Primary Care Nurse Name: Caren Hernandez RN Position: [facility] RN Supv Member Role: Primary Care Nurse Name: Kinza De La Cruz RN Position: [facility] RN Member Role: Primary Care Nurse Name: Veronica Queen RN Position: [facility] RN Member Role: Primary Care Nurse Name: Nely Wong RN Position: [facility] RN Member Role: Primary Care Nurse Name: Erica Brandon RN Position: [facility] RN Member Role: Primary Care Nurse Name: Adrianna Gonzalez RN Position: [facility] RN Member Role: Primary Care Nurse Name: Annmarie Feldman RN Position: [facility] PCO w/OE and EZ Script Member Role: Primary Care Nurse Name: Chinyere Espinoza RN Position: [facility] RN Member Role: Primary Care Nurse Name: Teresita Diallo RN Position: [facility] RN Member Role: Primary Care Nurse Name: Tennille Mcgarry RN Position: [facility] Hospital Cable Puller Member Role: Primary Care Nurse Name: Vicky Salazar RN Position: [facility] RN Member Role: Primary Care Nurse Name: Jalen Mullins Position: [facility] RN Member Role: Primary Care Nurse Care Team Related Persons Name: MARYANNE KELLER Address: home [address] [place] [address] Name: MARYANNE KELLER Address: home [address] [address] Name: GEORGIA KELLER Address: [place] [address] Name: BALDEV POLANCO Address: [place], [place]
--- OUTSIDE RECORDS SUMMARY | 2023-02-09 22:35 | XMS_ITS | Continuity of Care Document ---
Author Name Unknown Organization [facility] Address [address] [place] [address]- Care Team Providers Care Director Skills Name Role Phone Jaki Bishop MD Primary Care Physician [phone] Encounter [facility] Date(s): 04/30/19 - 07/15/[address] [address]- [facility] Attending Physician: Jaki Bishop MD Admitting Physician: Jaki Bishop MD Referring Physician: Jaki Bishop MD Allergies, [...] Given Patient Refuses 1Admin Note: VIS GIVEN [id number] 2Admin Note: VIS GIVEN 2008-12 3Admin Note: vis 4Admin Note: vis 02/06/08 Medications acetaminophen 325 mg oral tablet 325 mg, 1, tablet, By Mouth, 4 times a day, PRN, No more than 4 tablets per day, # 60 tablet, Refills 11, Tot. Refills 11, Acute 10/05/19 12:00:00 EDT, for pain, 10/03/18 14:57:21 EDT, Route to Pharmacy Electronically, [id number]... Start Date: 10/03/18 Stop Date: 10/05/19 Status: Ordered Alcohol Wipes See Instructions, # [...] times a day, # 60 tablet, Refills 1, Tot. Refills 1, Maintenance, 05/02/19 13:58:00 EST, Route to Pharmacy Electronically, [facility] [place], [place] -, 166, cm, 04/30/19 10:41:00 EST, Height, 91.8, kg, 02/23/19 17... Start Date: 05/02/19 Status: Ordered docusate sodium 100 mg oral capsule 100 mg, 1, capsule, By Mouth, 2 times a day, # 60 capsule, Refills 11, Tot. Refills 11, Maintenance, 02/21/19 14:45:44 EST, Route to Pharmacy Electronically, [id number], [place], [place] -, 168, cm, 02/14/19... Start Date: 02/21/19 Stop Date: 02/16/20 Status: Ordered Ensure (Vanilla Flavor) Ensure (Vanilla Flavor), See Instructions, # 60 each, Refills 11, Tot. Refills 11, Maintenance, Drink 1 can BID. Diagnosis: Chronic Pancreatitis, Cirrhosis. ICD10 K86.1, K74.6, Fax to [facility]( [facility], #[phone]), 05/24/19 15:01:00 EST, Compound Start Date: 05/24/19 Status: Ordered Freestyle Lite Lancets See Instructions, [...] Maintenance,03/27/19 16:10:00 EST, Route to Pharmacy Electronically, [facility] #[id number], 166, cm, 03/27/19 15:26:00 EST, Height, 91.8, kg, 02/23/19 17:03:... Start Date: 03/27/19 Stop Date: 10/23/19 Status: Ordered Humalog Kwik Pen 100 units/mL subcutaneous injection See Instructions, 4 Units for bood sugar above 120 mg/dl and then add 2 Units for every 50 mg/dl rise above 120. Three times a day before meals., # 15 mL, 6 Refills, Maintenance, 05/04/19 12:52:00 EST, [place], [place] - , Humalog ins... Start Date: 05/04/19 Status: Ordered Lantus Solostar Pen 100 units/mL subcutaneous solution See Instructions, This is an increase in dose. 28u QAM & 44 units QHS. Subcutaneous Injection Daily 30 days, # 5 each, 6 Refills, Maintenance, 07/12/19 9:59:00 EDT, [place], [place] -, 166, cm, 05/28/19 11:08:00 EDT, Height, 91.8, kg,... Start Date: 07/12/19 Status: Ordered MiraLax oral powder for reconstitution = 17 Gm, By Mouth, 2 times a day, PRN Other, dissolve in water before taking. goal 2-3 bowel movements daily, # 527 Gm, 0 Refills, Maintenance, 03/27/19 17:13:00 EST, REC Powder, [facility]#[id number], 17 Gm By Mouth 2 times a day,PRN:Other,Inst... Start Date: 03/27/19 Status: Ordered multivitamin Multiple Vitamins oral tablet 1 tablet, By Mouth, Daily, # 90 tablet, 6 Refills, Maintenance, 07/19/18 9:06:37 EDT, Tablet, 1 tablet By Mouth Daily Start Date: 07/19/18 Status: Ordered pantoprazole 40 mg oral delayed release tablet See Instructions, # 30 tablet, Refills 2 Tot. Refills 2, TAKE 1 TABLET BY MOUTH DAILY FOR STOMACH ACID, [facility] #[id number] Start Date: 11/28/18 Status: Ordered Pen [place], 31 G x 8 mm BD Ultra [...] Attn Dr. Mariano Andrade, Outpatient Psychiatry, at [phone]., See Instructions, # 1 application, Refills 0, [...] 04/20/19 10:38:00 EST, Route to Pharmacy Electronically, [facility] #[id number], 166, cm, 04/20/19 10:17:00 EST, Height, 91.8, kg, 02/23/19 17:03:00 EST, . Start Date: 04/20/19 Status: Ordered torsemide 20 mg oral tablet 2 tablet = 40 mg, By Mouth, Daily, # 180 tablet, 11 Refills, Maintenance, 04/20/19 10:38:00 EST, Tablet, [facility] #[id number], Replaces lower dose, 166, cm, 04/20/19 10:17:00 [...] Active H/O tubal ligation(Confirmed) Active [facility]N/ CP Marketing Communication Manager/Janet Pandey [phone](Confirmed) Active History of cholecystectomy(Confirmed) Active Hypertension(Confirmed) Active [...]
--- OUTSIDE RECORDS SUMMARY | 2023-02-09 22:35 | XMS_ITS | Continuity of Care Document ---
Author Name Unknown Organization [facility] Address [address] [place] [address]- Care Team Providers Care Range Aid Name Role Phone Jaki Bishop MD Primary Care Physician [phone] Encounter [facility] Date(s): 01/21/21 - 02/20/[address] [address] Allergies, Adverse Reactions, Alerts Substance Reaction [...] to COVID vaccine 2Admin Note: VIS GIVEN [id number] 3Admin Note: VIS GIVEN 2008- 4Admin Note: [...] 02/06/21 19:54:00 EST, Route to Pharmacy Electronically, [facility] [id number], Partial fill upon patient request if the [...] mL, 5 Refills, Maintenance, 02/06/21 19:54:00 EST, [facility] [id number], Partial fill upon patient request if the prescription is for a schedule II opioid d... Start Date: 02/06/21 Stop Date: 08/05/21 Status: Ordered loratadine 10 mg oral tablet 10 mg, 1, tablet, By Mouth, Daily, # 30 tablet, Refills 0, Tot. Refills 0, Maintenance, 11/28/20 9:25:00 EDT, Route to Pharmacy Electronically, [facility], Partial fill upon patient request [...] a day, # 60 tablet, 0 Refills, [facility], 167.64, cm, 11/27/20 22:30:00 EDT, Height, 98.5, kg, 10/22/20 17:50:00 EDT, Dry Weight Start Date: 01/08/21 Status: Ordered Nicoderm C-Q Clear 14 mg/24 hr transdermal film, extended release 1 patch, Topically, Daily, for 30 days, # 30 patch, 0 Refills, Acute 03/18/21 13:06:00 EST, 02/16/21 13:06:00 EST, Patch, [facility], Partial fill upon patient request if the prescription is for a schedule II opioid drug., 166.6, cm, ... Start Date: 02/16/21 Stop Date: 03/18/21 Status: Ordered Nicotine 2 mg gum = 2 mg, Chew, Every 2 hours, PRN Other, for 6 week(s), Nicotine Cravings, # 40 each, 1 Refills, Acute 05/11/21 13:06:00 EST, 02/16/21 13:06:00 EST, Gum, [facility], Partial fill upon patient request [...] 0 Refills, Maintenance,02/06/21 19:56:00 EST, CR Capsule, [place], [place] - [id number], Partial fill upon patient request if the [...] 0 Refills, Maintenance, 11/28/20 9:27:00 EDT, Nasal [place], [facility] 3, Partial fill upon patient request if [...] 5 Refills, Maintenance, 02/06/21 19:56:00 EST, Tablet, [place], [place] - [id number], Partial fill upon patient request if the [...] Active H/O tubal ligation(Confirmed) Active [facility]/BH CP Branch Chief/Janet Pandey [phone](Confirmed) Active History of cholecystectomy(Confirmed) Active Hypertension(Confirmed) Active [...]
--- OUTSIDE RECORDS SUMMARY | 2023-02-09 22:35 | XMS_ITS | Continuity of Care Document ---
Author Name Unknown Organization [facility] Address [address] [place] [address]- Care Team Providers Care Realtime Court Reporter Name Role Phone Dario HAYDEN, Jaki Primary Care Physician [phone] [facility]counter [facility] Date[facility]s): 10/27/21 - 10/27/[address] [address]- Discharge Disposition: A-D/C AMA Attending Physician: Stephanie Mak MD Admitting Physician: Stephanie Mak MD Referring Physician: Not on Staff, Referring [...] to COVID vaccine 2Admin Note: VIS GIVEN [id number] 3Admin Note: VIS GIVEN 2008- 4Admin Note: vis 5Admin Note: vis 02/06/08 Medications Abilify 10 mg oral tablet 10 mg, 1, tablet, By Mouth, Daily, # 90 tablet, Refills 3, Tot. Refills 3, Maintenance, 07/07/21 8:56:00 EDT, Route to Pharmacy Electronically, [place], [place] - [id number], Partialfill upon patient request if the prescription [...] 06/29/21 18:39:00... Start Date: 07/07/21 Status: Ordered Alcohol Wipes See Instructions, # 100 each, Refills 11, Tot. Refills 11, Maintenance, Use when checking blood glucose levels TID. Diagnosis: Type II DM, ICD10 E11.9, 10/21/21 17:16:00 EDT, Compound, 167, cm, 07/07/21 8:39:00 EDT, Height, 95.6, kg, 06/29/21 18:39:00... Start Date: 10/21/21 Status: Ordered benztropine 1 mg oral tablet 0.5 mg, 0.5, tablet, By Mouth, 2 times a day, # 90 tablet, Refills 3, Tot. Refills 3, Maintenance, 07/07/21 8:56:00 EDT, Route to Pharmacy Electronically, [facility] [id number], Partial fill upon patient request if the prescri... Start Date: 07/07/21 Status: Ordered Comfort EZ Pen [place] 31 gauge x 5/16 USE TO inject insulin 4 (FOUR) TIMES DAILY Start Date: 07/03/21 Status: Ordered Coreg 6.25 mg oral tablet 6.25 mg, 1, tablet, By Mouth, 2 times a day, # 180 tablet, Refills 3, Tot. Refills 3, Maintenance, 07/07/21 8:56:00 EDT, Route to Pharmacy Electronically, [facility] [id number], Partial fill upon patient request if the prescri... Start Date: 07/07/21 Status: Ordered Daily Multiple Vitamins oral tablet 1 tablet, By Mouth, Daily, # 90 tablet, 3 Refills, Maintenance, 07/07/21 8:56:00 EDT, Tablet, [facility] [id number], Partial fill upon patient request if the prescription is for a schedule II opioid drug., 1 tablet By Mouth Da... Start Date: 07/07/21 Status: Ordered divalproex sodium 250 mg oral enteric coated tablet 1 tablet = 250 mg, By Mouth, Daily in AM, # 90 tablet, 3 Refills, Maintenance, 07/07/21 8:56:00 EDT, Tablet, [facility] [id number], Partial fill upon patient request if the prescription is for a schedule II opioid drug., 167,... Start Date: 07/07/21 Status: Ordered divalproex sodium 500 mg oral enteric coated tablet 1 tablet = 500 mg, By Mouth, Daily at bedtime, # 90 tablet, 3 Refills, Maintenance, 07/07/21 8:56:00 EDT, Tablet, [facility] [id number], Partial fill upon patient request if the prescription is for a schedule II opioid drug.,... Start Date: 07/07/21 Status: Ordered Eucerin Unscented topical lotion See Instructions, Apply daily as directed to dry skin. 16 oz, # 1 each, 3 Refills, Maintenance, 07/07/21 9:02:00 EDT, [facility] [id number], Partial fill upon patient requestif the prescription is for a schedule II opioid . Start Date: 07/07/21 Status: Ordered folic acid 1 mg oral tablet 1 mg, 1, tablet, By Mouth, Daily, # 30 tablet, Refills 1, Tot. Refills 1, Maintenance, 10/21/21 12:44:00 EDT, Route to Pharmacy Electronically, [place], [place] - [id number], Partialfill upon patient request if the prescription is fo... Start Date: 10/21/21 Status: Ordered Freestyle Lite Lancets See Instructions, # 100 each, Refills 11, Tot. Refills 11, Maintenance, Use when checking blood glucose levels TID. Diagnosis: Type II DM, ICD10 E11.9, 10/21/21 17:16:00 EDT, Compound, 167, cm, 07/07/21 8:39:00 EDT, Height, 95.6, kg, 06/29/21 18:39:00... Start Date: 10/21/21 Status: Ordered FreeStyle Lite Strips FreeStyle Lite [...] AT BEDTIME Start Date: 07/03/21 Status: Ordered Freestyle Lite Test Strips See Instructions, # 100 each, Refills 11, Tot. Refills 11, Maintenance, Use when checking blood glucose levels TID. Diagnosis: Type II DM, ICD10 E11.9, 10/21/21 17:16:00 EDT, Compound, 167, cm, 07/07/21 8:39:00 EDT, Height, 95.6, kg, 06/29/21 18:39:00... Start Date: 10/21/21 Status: Ordered gabapentin 100 mg oral capsule 100 mg, 1, capsule, By Mouth, Daily, PRN, # 90 capsule, Refills 3, Tot. Refills 3, Maintenance, Anxiety, 07/07/21 8:56:00 EDT, Route to Pharmacy Electronically, [facility], [facility] [id number], Partial fill upon patient request if the p... Start Date: 07/07/21 Status: Ordered gabapentin 100 mg oral capsule 200 mg, 2, capsule, By Mouth, Daily at bedtime, # 180 capsule, Refills 3, Tot. Refills 3, Maintenance, 07/07/21 8:56:00 EDT, Route to Pharmacy Electronically, [facility], [place] - [id number], Partial fill upon patient request if the pre... Start Date: 07/07/21 Status: Ordered guaiFENesin 100 mg/5 mL oral liquid 5 mL = 100 mg, By Mouth, Every 4 hours, PRN for cough, # 300 mL, 0 Refills, Acute 07/07/22 9:05:00 EDT, 07/07/21 9:02:00 EDT, Liquid, [facility], [place] - [id number], Partial fill uponpatient request if the prescription is for a schedu... Start Date: 07/07/21 Stop Date: 07/07/22 Status: Ordered Inject Ease Lancets 28 gauge USE TO TEST FINGER STICK BLOOD SUGAR 3 (THREE) TIMES A DAY BEFORE MEALS AND AT BEDTIME Start Date: 07/03/21 Status: Ordered Insulin Lispro KwikPen 100 units/mL injectable solution = 1 units, Subcutaneous Infusion, 3 times a day before meals, 150 - 199 2 units 200 - 249 4 units, 250 - 299 6 units, 300 - 349 8 units, 350 - 399 10 units Call [facility] if greater than 400, # 15 mL, 0 Refills, Maintenance, 09/11/21 17:25:00... Start Date: 09/11/21 Status: Ordered lactulose 10 gm/15 ml oral syrup 30 mL, By Mouth, 2 times a day, # 581 mL, 3 Refills, [facility], , TAKE 30mls BY MOUTH 2 (two) times a day, 167, cm, 07/07/21 8:39:00 EDT, Height, 95.6, kg, 06/29/21 18:39:00 EDT, Dry Weight Start Date: 08/10/21 Status: Ordered Lantus Solostar Pen 100 units/mL subcutaneous solution = 16 units, Subcutaneous Infusion, Daily, # 15 mL, 5 Refills, Maintenance, 09/11/21 17:25:00 EDT, [facility] [id number], Partial fill upon patient request if the prescriptionis for a schedule II opioid drug., 167, cm, 2... Start Date: 09/11/21 Status: Ordered loratadine 10 mg oral tablet 10 mg, 1, tablet, By Mouth, Daily, # 90 tablet, Refills 3, Tot. Refills 3, Maintenance, 07/07/21 8:56:00 EDT, Route to Pharmacy Electronically, [facility] [id number], Partialfill upon patient request if the prescription is fo... Start Date: 07/07/21 Status: Ordered magnesium oxide 400 mg oral tablet 1 tablet = 400 mg, By Mouth, 2 times a day, # 180 tablet, 3 Refills, Maintenance, 07/07/21 8:56:00 EDT, Tablet, [facility] [id number], Partial fill upon patient request if the prescription is for a schedule II opioid drug., 16... Start Date: 07/07/21 Status: Ordered melatonin 3 mg oral tablet 1 tablet = 3 mg, By Mouth, Daily at bedtime, PRN Insomnia, # 90 tablet, 3 Refills, Maintenance, 07/07/21 8:56:00 EDT, Tablet, [facility] [id number], Partial fill upon patientrequest if the prescription is for a schedule II op... Start Date: 07/07/21 Status: Ordered nicotine 2 mg oral transmucosal lozenge 1 lozenge = 2 mg, By Mouth, Every hour, PRN Other, Nicotine Withdrawal Symptoms (not to exceed 20 lozenges per day), # 72 lozenge, 3 Refills, Maintenance, 07/07/21 8:56:00 EDT, Lozenge, [facility] [id number], Partial fill upon... Start Date: 07/07/21 Status: Ordered pancrelipase 10,000 units-32,000 units-42,000 units oral delayed release capsule 1 capsule, By Mouth, 3 times a day, with each meal and snack, # 270 capsule, 3 Refills, Maintenance, 10/21/21 17:17:00 EDT, CR Capsule, [place], [place] - [id number], Partial fill upon patient request if the prescription is for a sche... Start Date: 10/21/21 Status: Ordered pantoprazole 40 mg oral delayed release tablet 1 tablet = 40 mg, By Mouth, Daily, # 90 tablet, 3 Refills, Maintenance, 10/19/21 14:26:00 EDT, EC Tablet, 167, cm, 07/07/21 8:39:00 EDT, Height, 95.6, kg, 06/29/21 18:39:00 EDT, Dry Weight Start Date: 10/19/21 Status: Ordered Pen Apison, 31 G x 8 mm BD Ultra Fine III See Instructions, # 100 each, Refills 5, Tot. Refills 5, Maintenance, use as directed for Type 2 Diabetes Mellitus, 09/11/21 17:26:00 EDT, Supply, 167, cm, 07/07/21 8:39:00 EDT, Height, 95.6, kg, 06/29/21 18:39:00 EDT, Dry Weight Start Date: 09/11/21 Stop Date: 03/10/22 Status: Ordered risperiDONE 1 mg oral tablet 1 mg, 1, tablet, By Mouth, 2 times a day, # 60 tablet, Refills 1, Tot. Refills 1, Maintenance, 10/21/21 12:48:00 EDT, Route to Pharmacy Electronically, [place], [place] - [id number],Partial fill upon patient request if the prescripti... Start Date: 10/21/21 Status: Ordered simethicone 80 mg oral tablet, [...] 3 Refills, Maintenance, 07/07/21 8:56:00 EDT, Tablet, [facility] - [place], [place] - [id number], Partial fill upon patient request if theprescription [...] Active H/O tubal ligation(Confirmed) Active BHN/ CP Supervisor [place]/Janet Pandey [phone](Confirmed) Active Heart failure(Confirmed) Active History of cholecystectomy(Confirmed) [...] e jection fraction(Confirmed) Active Tobacco use(Confirmed) Active Vital Signs Most recent to oldest [Reference Range]: 1 2 3 Weight 87.1 kg (10/27/21 8:01 AM) 87.1 kg (10/27/21 6:07 AM) 87.1 kg (10/27/21 5:30 AM) Oxygen Saturation [94-100 %] 94 % (10/27/21 8:01 AM) 93 % *L* (10/27/21 5:30 AM) Pulse Rate [55-90 bpm] 89 bpm (10/27/21 8:01 AM) 90 bpm (10/27/21 5:30 AM) Blood Pressure [90-138/55-84 mm Hg] 145/88mm Hg *H* (10/27/21 8:01 AM) 143/89mm Hg *H* (10/27/21 5:30 AM) Respiratory Rate [16-30 br/min] 18 br/min (10/27/21 8:01 AM) 15 br/min *L* (10/27/21 5:30 AM) Temperature [96.8-100.4 DegF] 97.8 DegF (10/27/21 8:01 AM) 98.3 DegF (10/27/21 5:30 AM) Mode of Delivery (Oxygen) Room air (10/27/21 8:01 AM) Room air (10/27/21 5:30 AM) Blood pressure sites Arm, left (10/27/21 8:01 AM) Arm, left (10/27/21 5:30 AM) Temperature Route Oral (10/27/21 8:01 AM) Oral (10/27/21 5:30 AM) Weight Obtained Via Patient/family state d (10/27/21 5:30 AM) Social History Social History Type Response Smoking Status 5-9 cigarettes (betw een 1/4 to 1/2 pack)/day in last 30 days; Interested in cessation: No; Patient wants NRT during admission Yes; Type: Cigarettes entered on: 06/29/21 Sex
--- OUTSIDE RECORDS SUMMARY | 2023-02-09 22:35 | XMS_ITS | Continuity of Care Document ---
Author Name Unknown Organization [facility] Address [address] [place] [address]- Care Team Providers Care Charge Entry Specialist Name Role Phone Jaki Bishop MD Primary Care Physician [facility]counter [facility] Date(s): 05/22/20 - 06/21/[address] [address]- Allergies, Adverse Reactions, Alerts Substance Reaction Severity [...] Given Permanently Refused 1Admin Note: VIS GIVEN [id number] 2Admin Note: VIS GIVEN 2008-12 3Admin Note: vis 4Admin Note: vis 02/06/08 Medications acetaminophen 325 mg oral tablet 1, tablet, By Mouth, 4 times a day, PRN, not to exceed 4 TABLETS PER DAY. Not to exceed 2000 mg/day. PRN Pain, # 60 tablet, Refills 0, Tot. Refills 0, Maintenance, NEEDED, 06/19/20 12:38:00 EDT, Route to Pharmacy Electronically, [facility]... Start Date: 06/19/20 Status: Ordered Alcohol Wipes See Instructions, # [...] 0 Refills, Maintenance, 04/16/20 11:06:00 EST, Tablet, [facility] [id number], Partial fill upon patient request if the prescription is for a schedule II opioid drug., 168,... Start Date: 04/16/20 Status: Ordered clozapine 50 mg oral tablet 3 tablet = 150 mg, By Mouth, Daily at bedtime, # 90 tablet, 0 Refills, Maintenance, 04/16/20 11:06:00 EST, Tablet, [facility] [id number], Partial fill upon patient request ifthe prescription is for a schedule II opioid drug.,... Start Date: 04/16/20 Status: Ordered Coreg 12.5 mg oral tablet 12.5 mg, 1, tablet, By Mouth, 2 times a day, # 180 tablet, Refills 1, Tot. Refills 1, Maintenance, 05/26/20 14:41:00 EST, Route to Pharmacy Electronically, [facility] [id number], Partial fill upon patient request if the prescr... Start Date: 05/26/20 Stop Date: 11/22/20 Status: Ordered docusate sodium 100 mg oral capsule = 100 mg, By Mouth, 2 times a day, PRN Constipation., # 60 capsule, 3 Refills, Maintenance, 02/29/20 15:13:00 EST, Capsule, [place], [place] - [id number], Partial fill upon patient request if the [...] Maintenance,05/28/20 13:46:00 EST, Route to Pharmacy Electronically, [place], [place] - [id number], Partial fill upon patient request if the pres... Start Date: 05/28/20 Status: Ordered Glucerna (Vanilla Flavor) Glucerna (Vanilla Flavor), See Instructions, # 60 each, Refills 11, Tot. Refills 11, Maintenance, Drink 1 can BID. 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 Fax to [facility] ( [facility], #[phone]), 06/06/20 19... Start Date: 06/06/20 Status: Ordered [...] mL, 1 Refills, Maintenance, 04/16/20 11:07:00 EST, [facility] [place], [place] - [id number],... Start Date: 04/16/20 Status: Ordered lactulose 10 gm/15 ml oral syrup 30 mL, By Mouth, 2 times a day, # 581 mL, 0 Refills, Acute, 03/25/20 11:49:00 EST, [facility],10, TAKE 30 ML BY MOUTH [...] an increase in dose, # 5 each, 1 Refills, Maintenance, 06/19/20 14:17:00 EDT, Solution Start Date: 06/19/20 Status: Ordered loratadine 10 mg oral tablet See Instructions, TAKE ONE TABLET BY MOUTH DAILY, # 30 tablet, Refills 5, Tot. Refills 5, 05/01/20 8:18:00 EST, Instructions Replace Required Details, Route to Pharmacy Electronically, [facility] [id number], 168, cm, 04/16/20... Start Date: 05/01/20 Status: [...] 1 Refills, Maintenance, 05/26/20 13:28:00 EST, Tablet, [facility] [id number], 1 tablet By Mouth Daily, 168, cm, [...] 0 Refills, Maintenance, 04/16/20 11:08:00 EST, Gum, [facility] [id number], Partial fill upon patient request if the [...] 5 Refills, Maintenance, 03/05/20 16:50:00 EST, Tablet, [facility] [id number], this is an increased, 1 tablet By [...] 1 Refills, Maintenance, 04/16/20 11:09:00 EST, Tablet, [place], [place] - [id number], Partial fill upon patient request if the prescription is for a schedule II opioid drug., 168, cm, 01... Start Date: 04/16/20 Stop Date: 04/11/21 Status: Ordered Zenpep 10,000 units-32,000 units-42,000 units oral delayed release capsule 1 capsule, By Mouth, 3 times a day, # 90 capsule, 0 Refills, Maintenance, 04/16/20 11:09:00 EST, [facility] - [place], [place] - [id number], 1 capsule By Mouth 3 times a [...] Active H/O tubal ligation(Confirmed) Active BHN/BH CP Pocketed Spring Assembler/Janet salvador [facility] [phone](Confirmed) Active History of cholecystectomy(Confirmed) Active Hypertension(Confirmed) Active [...]
--- OUTSIDE RECORDS SUMMARY | 2023-02-09 22:35 | XMS_ITS | Continuity of Care Document ---
Author Name Unknown Organization [facility] Address [address] [place] [address]- Care Team Providers Care Network Engineering Advisor Name Role Phone Jaki Bishop MD Primary Care Physician [phone] [facility]counter [facility]s): 09/10[facility]21 - 10/10/[address] [address] Allergies, Adverse Reactions, Alerts [...] to COVID vaccine 2Admin Note: VIS GIVEN [id number] 3Admin Note: VIS GIVEN 2008- 4Admin Note: vis 5Admin Note: vis 02/06/08 Medications Abilify 10 mg oral tablet 10 mg, 1, tablet, By Mouth, Daily, # 90 tablet, Refills 3, Tot. Refills 3, Maintenance, 07/07/21 8:56:00 EDT, Route to Pharmacy Electronically, [facility] [id number], Partialfill upon patient request if the prescription [...] 07/07/21 8:56:00 EDT, Route to Pharmacy Electronically, [facility] [id number], Partial fill upon patient request if the prescri... Start Date: 07/07/21 Status: Ordered Comfort EZ Pen [place] 31 gauge x /16 USE TO inject insulin 4 (FOUR) TIMES DAILY Start Date: 07/03/21 Status: Ordered Coreg 6.25 mg oral tablet 6.25 mg, 1, tablet, By Mouth, 2 times a day, # 180 tablet, Refills 3, Tot. Refills 3, Maintenance, 07/07/21 8:56:00 EDT, Route to Pharmacy Electronically, [facility] [id number], Partial fill upon patient request if the prescri... Start Date: 07/07/21 Status: Ordered Daily Multiple Vitamins oral tablet 1 tablet, By Mouth, Daily, # 90 tablet, 3 Refills, Maintenance, 07/07/21 8:56:00 EDT, Tablet, [facility] [id number], Partial fill upon patient request if the prescription is for a schedule II opioid drug., 1 tablet By Mouth Da... Start Date: 07/07/21 Status: Ordered divalproex sodium 250 mg oral enteric coated tablet 1 tablet = 250 mg, By Mouth, Daily in AM, # 90 tablet, 3 Refills, Maintenance, 07/07/21 8:56:00 EDT, Tablet, [facility] [id number], Partial fill upon patient request if the prescription is for a schedule II opioid drug., 167,... Start Date: 07/07/21 Status: Ordered divalproex sodium 500 mg oral enteric coated tablet 1 tablet = 500 mg, By Mouth, Daily at bedtime, # 90 tablet, 3 Refills, Maintenance, 07/07/21 8:56:00 EDT, Tablet, [facility] [id number], Partial fill upon patient request if the prescription is for a schedule II opioid drug.,... Start Date: 07/07/21 Status: Ordered Eucerin Unscented topical lotion See Instructions, Apply daily as directed to dry skin. 16 oz, # 1 each, 3 Refills, Maintenance, 07/07/21 9:02:00 EDT, [facility] [id number], Partial fill upon patient requestif the prescription [...] 07/07/21 8:56:00 EDT, Route to Pharmacy Electronically, [facility] [id number], Partial fill upon patient request if the p... Start Date: 07/07/21 Status: Ordered gabapentin 100 mg oral capsule 200 mg, 2, capsule, By Mouth, Daily at bedtime, # 180 capsule, Refills 3, Tot. Refills 3, Maintenance, 07/07/21 8:56:00 EDT, Route to Pharmacy Electronically, [facility] [id number], Partial fill upon patient request if the pre... Start Date: 07/07/21 Status: Ordered guaiFENesin 100 mg/5 mL oral liquid 5 mL = 100 mg, By Mouth, Every 4 hours, PRN for cough, # 300 mL, 0 Refills, Acute 07/07/22 9:05:00 EDT, 07/07/21 9:02:00 EDT, Liquid, [facility] [id number], Partial fill uponpatient request if the prescription [...] a day, # 581 mL, 3 Refills, [facility], 10, TAKE 30mls BY MOUTH 2 (two) times a day, 167, cm, 07/07/21 8:39:00 EDT, Height, 95.6, kg, 06/29/21 18:39:00 EDT, Dry Weight Start Date: 08/10/21 Status: Ordered Lantus Solostar Pen 100 units/mL subcutaneous solution = 16 units, Subcutaneous Infusion, Daily, # 15 mL, 5 Refills, Maintenance, 09/11/21 17:25:00 EDT, [facility] [id number], Partial fill upon patient request if the prescriptionis for a schedule II opioid drug., 167, cm, ... Start Date: 09/11/21 Status: Ordered loratadine 10 mg oral tablet 10 mg, 1, tablet, By Mouth, Daily, # 90 tablet, Refills 3, Tot. Refills 3, Maintenance, 07/07/21 8:56:00 EDT, Route to Pharmacy Electronically, [facility] [id number], Partialfill upon patient request if the prescription is fo... Start Date: 07/07/21 Status: Ordered magnesium oxide 400 mg oral tablet 1 tablet = 400 mg, By Mouth, 2 times a day, # 180 tablet, 3 Refills, Maintenance, 07/07/21 8:56:00 EDT, Tablet, [facility] [id number], Partial fill upon patient request if the prescription is for a schedule II opioid drug., 16... Start Date: 07/07/21 Status: Ordered melatonin 3 mg oral tablet 1 tablet = 3 mg, By Mouth, Daily at bedtime, PRN Insomnia, # 90 tablet, 3 Refills, Maintenance, 07/07/21 8:56:00 EDT, Tablet, [facility] [id number], Partial fill upon patientrequest if the prescription is for a schedule II op... Start Date: 07/07/21 Status: Ordered nicotine 2 mg oral transmucosal lozenge 1 lozenge = 2 mg, By Mouth, Every hour, PRN Other, Nicotine Withdrawal Symptoms (not to exceed 20 lozenges per day), # 72 lozenge, 3 Refills, Maintenance, 07/07/21 8:56:00 EDT, Lozenge, [place], [place] - [id number], Partial fill upon... Start Date: 07/07/21 Status: Ordered pancrelipase 10,000 units-32,000 units-42,000 units oral delayed release capsule 1 capsule, By Mouth, 3 times a day, with each meal and snack, # 270 capsule, 3 Refills, Maintenance, 07/07/21 8:56:00 EDT, CR Capsule, [place], [place] - [id number], Partial fill upon patient request if the [...] Dry Weight Start Date: 07/07/21 Status: Ordered Pen [place], 31 G x 8 mm BD Ultra Fine III See Instructions, # 100 each, Refills 5, Tot. Refills 5, Maintenance, use as directed for Type 2 Diabetes Mellitus, 09/11/21 17:26:00 EDT, Supply, 167, cm, 07/07/21 8:39:00 EDT, Height, 95.6, kg, 06/29/21 18:39:00 EDT, Dry Weight Start Date: 09/11/21 Stop Date: 03/10/22 Status: Ordered simethicone 80 mg oral tablet, [...] 3 Refills, Maintenance, 07/07/21 8:56:00 EDT, Tablet, [facility], [place] - [id number], Partial fill upon patient request if theprescription [...] Active H/O tubal ligation(Confirmed) Active BHN/ CP Zone Maintenance Technician/Janet salvador [facility] [phone](Confirmed) Active Heart failure(Confirmed) Active History of cholecystectomy(Confirmed) [...]
--- OUTSIDE RECORDS SUMMARY | 2023-02-09 22:35 | XMS_ITS | Continuity of Care Document ---
Author Name Unknown Organization [facility] Address [address] [place] [address]- Care Team Providers Care Server Programmer Name Role Phone Jaki Bishop MD Primary Care Physician [phone] [facility]counter [facility] Date(s): 07/29/20 - 08/28/[address] [address]- Attending Physician: Antonio Guido Allergies, Adverse Reactions, Alerts Substance Reaction Severity [...] Given Permanently Refused 1Admin Note: VIS GIVEN [id number] 2Admin Note: VIS GIVEN 2008-12 3Admin Note: vis 4Admin Note: vis 02/06/08 Medications acetaminophen 325 mg oral tablet 1, tablet, By Mouth, 4 times a day, PRN, not to exceed 4 TABLETS PER DAY. Not to exceed 2000 mg/day. PRN Pain, # 60 tablet, Refills 5, Tot. Refills 5, Maintenance, NEEDED, 08/14/20 16:55:00 EDT, Route to Pharmacy Electronically, [facility]... Start Date: 08/14/20 Status: Ordered Clozaril 100 mg oral tablet 1 tablet = 100 mg, By Mouth, 2 times a day, each, 0 Refills, Maintenance, 08/28/20 16:26:00 EDT, Tablet, Partial fill upon patient request if the prescription is for a schedule II opioid drug. Start Date: 08/28/20 Stop Date: 09/27/20 Status: Ordered Coreg 12.5 mg oral tablet 12.5 mg, 1, tablet, By Mouth, 2 times a day, # 180 tablet, Refills 1, Tot. Refills 1, Maintenance, 05/26/20 14:41:00 EST, Route to Pharmacy Electronically, [facility] [id number], Partial fill upon patient request if the prescr... Start Date: 05/26/20 Stop Date: 11/22/20 Status: Ordered gabapentin 100 mg oral capsule 200 mg, 2, capsule, By Mouth, 2 times a day, # 120 capsule, Refills 5, Tot. Refills 5, Maintenance,05/28/20 13:46:00 EST, Route to Pharmacy Electronically, [facility] [id number], Partial fill upon patient request if the presc... Start Date: 05/28/20 Status: Ordered Humalog Kwik Pen 100 units/mL subcutaneous injection See Instructions, 3 Units for bood sugar above 120 mg/dl and then add 2 Units for every 50 mg/dl rise above 120. Three times a day before meals., # 15 mL, 1 Refills, Maintenance, 04/16/20 11:07:00 EST, [facility] [id number],... Start Date: 04/16/20 Status: Ordered lactulose 10 gm/15 ml oral syrup 30 mL = 20 Gm, By Mouth, 2 times a day, 0 Refills, Maintenance, 08/28/20 16:23:00 EDT, Syrup, Partial fill upon patient request if the prescription is for a schedule II opioid drug. Start Date: 08/28/20 Status: Ordered Lantus Solostar Pen 100 units/mL subcutaneous solution = 26 units, Subcutaneous Injection, Daily at bedtime, This is an increase in dose, # 5 each, 1 Refills, Maintenance, 08/20/20 16:55:00 EDT, Solution, [facility], [place] - [id number], 168, cm, 04/16/20 8:30:00 EST, Height, 98.7, kg, 03/22... Start Date: 08/20/20 Status: Ordered loratadine 10 mg oral tablet See Instructions, TAKE ONE TABLET BY MOUTH DAILY, # 30 tablet, Refills 5, Tot. Refills 5, 05/01/20 8:18:00 EST, Instructions Replace Required Details, Route to Pharmacy Electronically, [place], [place] - [id number], 168, cm, 04/16/20... Start Date: 05/01/20 Status: Ordered Maalox Plus Liquid 30 mL, By Mouth, Every 8 hours, PRN Indigestion, 0 Refills, Maintenance, 08/28/20 16:23:00 EDT, Suspension, Partial fill upon patient request if the prescription is for a schedule II opioid drug. Start Date: 08/28/20 Status: Ordered Nicotine = 21 mg, Topically, Daily, 0 Refills, Maintenance, 08/28/20 16:23:00 EDT, Patch, Partial fill upon patient request if the prescription is for a schedule II opioid drug. Start Date: 08/28/20 Status: Ordered nicotine 4 mg oral transmucosal gum = 4 mg, Chew, Every hour, PRN Other, Nicotine Withdrawal Symptoms (NOT to exceed 24 pieces per day), 0 Refills, Maintenance, 08/28/20 16:23:00 EDT, Gum, Partial fill upon patient request if the prescription is for a schedule II opioid drug. Start Date: 08/28/20 Status: Ordered pantoprazole 40 mg oral delayed release tablet 1 tablet, By Mouth, Daily, FOR stomach acid., # 30 tablet, 2 Refills, Maintenance, 06/26/20 13:27:00 EDT, 168, cm, 04/16/20 8:30:00 EST, Height, 98.7, kg, 04/11/20 2:10:00 EST, Dry Weight Start Date: 06/26/20 Status: Ordered sacubitril-valsartan 97 mg-103 mg oral tablet 1 tablet, By Mouth, 2 times a day, # 60 tablet, 5 Refills, Maintenance, 07/14/20 16:30:00 EDT, Tablet, [facility] [id number], this is an increased, 1 tablet By Mouth 2 times a day,x30 days, 168, cm, 04/16/20 8:30:00 EST, Heigh... Start Date: 07/14/20 Stop Date: 01/10/21 Status: Ordered torsemide 20 mg oral tablet 1 tablet = 20 mg, By Mouth, Daily, # 30 tablet, 1 Refills, Maintenance, 04/16/20 11:09:00 EST, Tablet, [facility] [id number], Partial fill upon patient request if the prescription is for a schedule II opioid drug., 168, cm, 01... Start Date: 04/16/20 Stop Date: 04/11/21 Status: Ordered Zenpep 10,000 units-32,000 units-42,000 units oral delayed release capsule 1 capsule, By Mouth, 3 times a day, # 90 capsule, 0 Refills, Maintenance, 04/16/20 11:09:00 EST, [facility] [id number], 1 capsule By Mouth 3 times a [...] Active H/O tubal ligation(Confirmed) Active BHN/BH CP Chief Business Officer/Janet salvador [facility] [phone](Confirmed) Active History of cholecystectomy(Confirmed) Active Hypertension(Confirmed) Active [...]
--- OUTSIDE RECORDS SUMMARY | 2023-02-09 22:35 | XMS_ITS | Continuity of Care Document ---
Author Name Unknown Organization [facility] Address [address] [place] [address]- Care Team Providers Care Director Operations Broadcast Name Role Phone Jaki Bishop MD Primary Care Physician Encounter [facility] Date(s): 04/23/21 - 05/23/[address] [address]- Allergies, Adverse Reactions, Alerts Substance Reaction Severity [...] to COVID vaccine 2Admin Note: VIS GIVEN [id number] 3Admin Note: VIS GIVEN 2008- 4Admin Note: [...] 3 Refills, Maintenance, 04/24/21 13:09:00 EST, Tablet, [facility] [id number], Partial fill upon patient request if the prescription is for a schedule II o... Start Date: 04/24/21 Status: Ordered nicotine 14 mg/24 hr transdermal film, extended release APPLY 1 PATCH TOPICALLY EVERY DAY REMOVE OLD PATCH BEFORE APPLYING NEW ONE. Start Date: 03/16/21 Status: Ordered olanzapine 20 mg oral tablet TAKE ONE TABLET BY MOUTH DAILY AT BEDTIME Start Date: 03/16/21 Status: Ordered pancrelipase 10,000 units-32,000 units-42,000 units oral delayed release capsule 1 capsule, By Mouth, 3 times a day, with each meal and snack, # 90 capsule, 2 Refills, Maintenance,05/08/21 12:22:00 EST, CR Capsule, [facility] [id number], Partial fill upon patient request if the [...] no findings sarcoid 2013 liver biopsy)(Confirmed) Active CAP (community acquired pneumonia)(Confirmed) Active Diabetes(Confirmed) Active Dyshidrotic eczema(Confirmed) Active General medical(Confirmed) Active History of splenectomy(Confirmed) Active H/O tubal ligation(Confirmed) Active BHN/ CP C Consultant[facility] [phone](Confirmed) Active Heart failure(Confirmed) Active History of cholecystectomy(Confirmed) [...]
--- OUTSIDE RECORDS SUMMARY | 2023-02-09 22:35 | XMS_ITS | Continuity of Care Document ---
Author Name Unknown Organization [facility] Address [address] [place] [address]- Care Team Providers Care Aquaculture Worker Name Role Phone Jaki Bishop MD Primary Care Physician [phone] Encounter [facility] Date(s): 06/05/20 - 07/05/[address] [address]- Allergies, Adverse Reactions, Alerts Substance Reaction Severity [...] Given Permanently Refused 1Admin Note: VIS GIVEN [id number] 2Admin Note: VIS GIVEN 2008-12 3Admin Note: vis 4Admin Note: vis 02/06/08 Medications acetaminophen 325 mg oral tablet 1, tablet, By Mouth, 4 times a day, PRN, not to exceed 4 TABLETS PER DAY. Not to exceed 2000 mg/day. PRN Pain, # 60 tablet, Refills 0, Tot. Refills 0, Maintenance, NEEDED, 06/19/20 12:38:00 EDT, Route to Pharmacy Electronically, [facility]... Start Date: 06/19/20 Status: Ordered Alcohol Wipes [...] 0 Refills, Maintenance, 04/16/20 11:06:00 EST, Tablet, [facility] [id number], Partial fill upon patient request if the prescription is for a schedule II opioid drug., 168,... Start Date: 04/16/20 Status: Ordered clozapine 50 mg oral tablet 3 tablet = 150 mg, By Mouth, Daily at bedtime, # 90 tablet, 0 Refills, Maintenance, 04/16/20 11:06:00 EST, Tablet, [facility] [id number], Partial fill upon patient request ifthe prescription is for a schedule II opioid drug.,... Start Date: 04/16/20 Status: Ordered Coreg 12.5 mg oral tablet 12.5 mg, 1, tablet, By Mouth, 2 times a day, # 180 tablet, Refills 1, Tot. Refills 1, Maintenance, 05/26/20 14:41:00 EST, Route to Pharmacy Electronically, [facility] [id number], Partial fill upon patient request if the prescr... Start Date: 05/26/20 Stop Date: 11/22/20 Status: Ordered docusate sodium 100 mg oral capsule = 100 mg, By Mouth, 2 times a day, PRN Constipation., # 60 capsule, 3 Refills, Maintenance, 02/29/20 15:13:00 EST, Capsule, [place], [place] - [id number], Partial fill upon patient request if the [...] Maintenance,05/28/20 13:46:00 EST, Route to Pharmacy Electronically, [place], [place] - [id number], Partial fill upon patient request if the presc... Start Date: 05/28/20 Status: Ordered Glucerna (Vanilla Flavor) Glucerna (Vanilla Flavor), See Instructions, # 60 each, Refills 11, Tot. Refills 11, Maintenance, Drink 1 can BID. 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 Fax to Anna ( [facility], #[phone]), 06/06/20 19... Start Date: 06/06/20 Status: Ordered [...] daily Dx: CHF I50.9. Please fax to Cecil Lozano [place] , 04/02/20 16:54:00 EST, Supply Start Date: 04/02/20 Status: Ordered Humalog Kwik Pen 100 units/mL subcutaneous injection See Instructions, 3 Units for bood sugar above 120 mg/dl and then add 2 Units for every 50 mg/dl rise above 120. Three times a day before meals., # 15 mL, 1 Refills, Maintenance, 04/16/20 11:07:00 EST, [place], [place] - [id number],... Start Date: 04/16/20 Status: Ordered lactulose 10 gm/15 ml oral syrup 30 mL, By Mouth, 2 times a day, # 581 mL, 3 Refills, Maintenance, 06/27/20 11:11:00 EDT, [facility] [id number], 10, 30 mL By Mouth 2 times [...] Replace Required Details, Route to Pharmacy Electronically, [facility] [id number], 168, cm, 04/16/20... Start Date: 05/01/20 Status: Ordered multivitamin Multiple Vitamins oral tablet 1 tablet, By Mouth, Daily, # 90 tablet, 1 Refills, Maintenance, 05/26/20 13:28:00 EST, Tablet, [facility], [place] - [id number], 1 tablet By Mouth Daily, 168, cm, [...] 0 Refills, Maintenance, 04/16/20 11:08:00 EST, Gum, [facility], [facility] [id number], Partial fill upon patient request if the [...] 5 Refills, Maintenance, 03/05/20 16:50:00 EST, Tablet, [place], [place] - [id number], this is an increased, 1 tablet By Mouth 2 times a day,x30 days, 168, cm, 02/10/20 5:58:00 EST, Heigh... Start Date: 03/05/20 Stop Date: 09/01/20 Status: Ordered torsemide 20 mg oral tablet 1 tablet = 20 mg, By Mouth, Daily, # 30 tablet, 1 Refills, Maintenance, 04/16/20 11:09:00 EST, Tablet, [facility] [id number], Partial fill upon patient request if the prescription is for a schedule II opioid drug., 168, cm, 01... Start Date: 04/16/20 Stop Date: 04/11/21 Status: Ordered Zenpep 10,000 units-32,000 units-42,000 units oral delayed release capsule 1 capsule, By Mouth, 3 times a day, # 90 capsule, 0 Refills, Maintenance, 04/16/20 11:09:00 EST, [facility] [id number], 1 capsule By Mouth 3 times a [...] Active H/O tubal ligation(Confirmed) Active BHN/ CP Office Messenger Helper/Janet salvador [facility] [phone](Confirmed) Active History of cholecystectomy(Confirmed) Active Hypertension(Confirmed) Active [...]
--- OUTSIDE RECORDS SUMMARY | 2023-02-09 22:35 | XMS_ITS | Continuity of Care Document ---
Author Name Unknown Organization [facility] Address [address] [place] [address]- Care Team Providers Care Financial Institution President Name Role Phone Jaki Bishop MD Primary Care Physician [facility]counter [facility] Date[facility]s): 06/26/20 - 07/26/[address] [address]- Allergies, Adverse Reactions, Alerts Substance Reaction Severity [...] Given Permanently Refused 1Admin Note: VIS GIVEN [id number] 2Admin Note: VIS GIVEN 2008-12 3Admin Note: vis 4Admin Note: vis 02/06/08 Medications acetaminophen 325 mg oral tablet 1, tablet, By Mouth, 4 times a day, PRN, not to exceed 4 TABLETS PER DAY. Not to exceed 2000 mg/day. PRN Pain, # 60 tablet, Refills 0, Tot. Refills 0, Maintenance, NEEDED, 07/22/20 10:39:00 EDT, Route to Pharmacy Electronically, [facility] -... Start Date: 07/22/20 Status: Ordered Alcohol Wipes See Instructions, # [...] 0 Refills, Maintenance, 04/16/20 11:06:00 EST, Tablet, [facility] [id number], Partial fill upon patient request if the prescription is for a schedule II opioid drug., 168,... Start Date: 04/16/20 Status: Ordered clozapine 50 mg oral tablet 3 tablet = 150 mg, By Mouth, Daily at bedtime, # 90 tablet, 0 Refills, Maintenance, 04/16/20 11:06:00 EST, Tablet, [facility] [id number], Partial fill upon patient request ifthe prescription is for a schedule II opioid drug.,... Start Date: 04/16/20 Status: Ordered Comfort EZ Pen [place] 31 gauge x 5/16 Comfort EZ Pen [place] 31 gauge x 5/16 , See Instructions, # 120 each, 9 [...] 05/26/20 14:41:00 EST, Route to Pharmacy Electronically, [facility] [id number], Partial fill upon patient request if the prescr... Start Date: 05/26/20 Stop Date: 11/22/20 Status: Ordered docusate sodium 100 mg oral capsule = 100 mg, By Mouth, 2 times a day, PRN Constipation., # 60 capsule, 5 Refills, Maintenance, 07/21/20 10:54:00 EDT, Capsule, [facility] [id number], Partial fill upon patient request if the [...] Maintenance,05/28/20 13:46:00 EST, Route to Pharmacy Electronically, [facility] [id number], Partial fill upon patient request if the [...] K86.1, K74.6, E11.65. Fax to Anna ( [facility], #[phone]), 06/06/20 19... Start Date: 06/06/20 Status: Ordered [...] mL, 1 Refills, Maintenance, 04/16/20 11:07:00 EST, [facility] [id number],... Start Date: 04/16/20 Status: Ordered lactulose 10 gm/15 ml oral syrup 30 mL, By Mouth, 2 times a day, # 581 mL, 3 Refills, Maintenance, 06/27/20 11:11:00 EDT, [facility] [id number], 10, 30 mL By Mouth 2 times [...] Replace Required Details, Route to Pharmacy Electronically, [facility] [id number], 168, cm, 04/16/20... Start Date: 05/01/20 Status: Ordered multivitamin Multiple Vitamins oral tablet 1 tablet, By Mouth, Daily, # 90 tablet, 1 Refills, Maintenance, 05/26/20 13:28:00 EST, Tablet, [place], [place] - [id number], 1 tablet By Mouth Daily, 168, cm, [...] 0 Refills, Maintenance, 04/16/20 11:08:00 EST, Gum, [place], [place] - [id number], Partial fill upon patient request if the [...] 5 Refills, Maintenance, 07/14/20 16:30:00 EDT, Tablet, [place], [place] - [id number], this is an increased, 1 tablet By Mouth 2 times a day,x30 days, 168, cm, 04/16/20 8:30:00 EST, Heigh... Start Date: 07/14/20 Stop Date: 01/10/21 Status: Ordered torsemide 20 mg oral tablet 1 tablet = 20 mg, By Mouth, Daily, # 30 tablet, 1 Refills, Maintenance, 04/16/20 11:09:00 EST, Tablet, [facility] [id number], Partial fill upon patient request if the prescription is for a schedule II opioid drug., 168, cm, 01... Start Date: 04/16/20 Stop Date: 04/11/21 Status: Ordered Zenpep 10,000 units-32,000 units-42,000 units oral delayed release capsule 1 capsule, By Mouth, 3 times a day, # 90 capsule, 0 Refills, Maintenance, 04/16/20 11:09:00 EST, [facility], [place] - [id number], 1 capsule By Mouth 3 times a [...] Active H/O tubal ligation(Confirmed) Active BHN/ CP Wrecker Operator/Janet salvador [facility] [phone](Confirmed) Active History of cholecystectomy(Confirmed) Active Hypertension(Confirmed) Active [...]
--- OUTSIDE RECORDS SUMMARY | 2023-02-09 22:35 | XMS_ITS | Continuity of Care Document ---
Author Name Unknown Organization [facility] Address [address] [place] [address]- Care Team Providers Care Desktop Technician Name Role Phone Dario HAYDEN, Jaki Primary Care Physician [facility]counter [facility] Date(s): 05/25/22 - 06/24/[address] [address]- Allergies, Adverse Reactions, Alerts Substance Reaction Severity Status predniSONE Dizzinesses -DEC-2015 21:52:27<$> Active Zyprexa Hypertension Active NSAIDs 1 [...] to COVID vaccine 2Admin Note: VIS GIVEN [id number] 3Admin Note: VIS GIVEN 2008-12 4Admin Note: vis 5Admin Note: vis 02/06/08 Medications Alcohol Wipes See Instructions, # 100 each, Maintenance, Use when checking blood glucose levels TID. Diagnosis: Type II DM, ICD10 E11.9, 04/08/22 16:16:00 EST, Compound, 167, cm, 03/25/22 3:14:00 EST, Height, 113,kg, 03/21/22 0:03:00 EST, Dry Weight Start Date: 04/08/22 Status: Ordered benztropine 1 mg oral tablet 0.5 mg, 0.5, tablet, By Mouth, 2 times a day, # 30 tablet, Refills 3, Tot. Refills 3, Maintenance, 04/29/22 14:29:00 EST, Route to Pharmacy Electronically, [facility] [id number], Partial fill upon patient request if the prescr... Start Date: 04/29/22 Stop Date: 08/27/22 Status: Ordered cloNIDine 0.1 mg oral tablet 0.1 mg, 1, tablet, By Mouth, Daily, # 30 tablet, Refills 3, Tot. Refills 3, Maintenance, 04/29/22 14:29:00 EST, Route to Pharmacy Electronically, [facility] [id number], Partial fill upon patient request if the prescription is... Start Date: 04/29/22 Stop Date: 08/27/22 Status: Ordered Coreg 6.25 mg oral tablet 6.25 mg, 1, tablet, By Mouth, 2 times a day, # 60 tablet, Refills 3, Tot. Refills 3, Maintenance, 04/29/22 14:29:00 EST, Route to Pharmacy Electronically, [facility] [id number], Partial fill upon patient request if the prescri... Start Date: 04/29/22 Stop Date: 08/27/22 Status: Ordered Creon 12,000 units oral delayed release capsule 1 capsule, By Mouth, 3 times a day, # 90 capsule, 3 Refills, Maintenance, 04/29/22 14:37:00 EST, ECCapsule, [facility] [id number], Partial fill upon patient request if the prescription is for a schedule II opioid drug., 167,... Start Date: 04/29/22 Status: Ordered diphenhydrAMINE 25 mg oral tablet 1 tablet = 25 mg, By Mouth, 3 times a day, for 30 days, PRN Agitation, # 90 tablet, 1 Refills, Acute 06/28/22 15:55:00 EDT, 04/29/22 15:55:00 EST, Tablet, [facility] [id number], Partial fill upon patient request if the prescri... Start Date: 04/29/22 Stop Date: 06/28/22 Status: Ordered divalproex sodium 500 mg oral enteric coated tablet 1 tablet = 500 mg, By Mouth, 2 times a day, # 60 tablet, 3 Refills, Maintenance, 04/29/22 14:33:00 EST, Tablet, [facility] [id number], Partial fill upon patient request if the prescription is for a schedule II opioid drug., 16... Start Date: 04/29/22 Stop Date: 08/27/22 Status: Ordered folic acid 1 mg oral tablet 1, tablet, By Mouth, Daily, # 30 tablet, Refills 1, Maintenance, 06/01/22 16:34:00 EDT, Route to Pharmacy Electronically, [facility], 167, cm, 03/25/22 3:14:00 EST, Height, 113, [...] 0:03:00 E... Start Date: 04/08/22 Status: Ordered guaiFENesin 100 mg/5 mL oral liquid 10 mL = 200 mg, By Mouth, Every 6 hours, PRN for cough, # 600 mL, 0 Refills, Maintenance, 04/08/22 16:16:00 EST, Liquid, [place], [place] - [id number], Partial fill upon patient request if the prescription is for a schedule II opioid... Start Date: 04/08/22 Status: Ordered Insulin Lispro KwikPen 100 units/mL injectable solution See Instructions, INJECT SUBCUTANEOUSLY 3 (THREE) TIMES A DAY BEFORE MEALS VIA sliding scale (150-199 2u; 200-249 4u; 250-299 6u; 300-349 8u; 350-399 10u; >400 call VNA), # 10 mL, 2 Refills, Maintenance, 04/08/22 16:17:00 EST, Injection, [facility]... Start Date: 04/08/22 Status: Ordered lactulose 10 gm/15 ml oral syrup See Instructions, TAKE 30mls BY MOUTH two (2) times a day, # 1,200 mL, 1 Refills, Maintenance, 06/03/22 16:20:00 EDT, [place], [place] - [id number], 20, TAKE 30mls BY MOUTH two (2) times a day, 167, cm, 03/25/22 3:14:00 EST, Height, 1... Start Date: 06/03/22 Status: Ordered Lantus Solostar Pen 100 units/mL subcutaneous solution = 6 units, Subcutaneous Injection, Daily in AM, # 10 mL, 2 Refills, Maintenance, 04/29/22 14:34:00 EST, Solution, [facility] [id number], Partial fill upon patient request if the prescription is for a schedule II opioid drug.,... Start Date: 04/29/22 Status: Ordered multivitamin Multiple Vitamins oral tablet 1 tablet, By Mouth, Daily, # 90 tablet, 1 Refills, Maintenance, 04/02/22 16:44:00 EST, Tablet, [facility] [id number], Partial fill upon patient request if the prescription isfor a schedule II opioid drug., 1 tablet By Mouth D... Start Date: 04/02/22 Status: Ordered Nicotine 2 mg gum 1 [...] Daily, # 30 tablet, 1 Refills, Maintenance, 05/28/22 19:00:00 EST, EC Tablet, 167, cm, 03/25/22 3:14:00 EST, Height, 113, kg, 03/21/22 0:03:00 EST, Dry Weight Start Date: 05/28/22 Status: Ordered risperiDONE 2 mg oral tablet 2 mg, 1, tablet, By Mouth, Daily in AM, # 30 tablet, Refills 3, Tot. Refills 3, Maintenance, 04/29/22 14:39:00 EST, Route to Pharmacy Electronically, [facility], [facility] [id number], Partial fill upon patient request if the prescription... Start Date: 04/29/22 Stop Date: 08/27/22 Status: Ordered risperiDONE 3 mg oral tablet 3 mg, 1, tablet, By Mouth, Daily at bedtime, # 30 tablet, Refills 3, Tot. Refills 3, Maintenance, 04/29/22 14:39:00 EST, Route to Pharmacy Electronically, [facility] [id number], Partial fill upon patient request if the prescri... Start Date: 04/29/22 Status: Ordered thiamine 100 mg oral tablet 100 mg, 1, tablet, By Mouth, Daily, for 30 days, # 30 tablet, Refills 3, Tot. Refills 3, Acute 08/27/22 14:40:00 EDT, 04/29/22 14:40:00 EST, Route to Pharmacy Electronically, [facility] [id number], Partial fill upon patient re... Start Date: 04/29/22 Stop Date: 08/27/22 Status: Ordered tiotropium 2.5 mcg/inh inhalation aerosol 2 puffs, Inhalation, Daily, # 1 each, 0 Refills, Maintenance, 06/21/22 18:01:00 EDT, Inhaler, [facility] [id number], Partial fill upon patient request if the prescription is for a schedule II opioid drug., 167, cm, 03/25/22 3:... Start Date: 06/21/22 Stop Date: 07/21/22 Status: Ordered Problem List Condition Confirmation Course [...] disorder, bipolar type Confirmed Active Severe obesity Confirmed Active Steatohepatitis (w/Stage III Fibrosis, Liver [...] Care Team Personnel Name: Lawrence Hendrix Position: [facility] RN Supv Member Role: Primary Care Nurse Name: Rufino Lloyd RN Position: [facility] RN Member Role: Primary Care Nurse Name: Cristina Carpenter RN Position: [facility] RN Member Role: Primary Care Nurse Name: Rosette Noriega RN Position: [facility] SN RN Member Role: Primary Care Nurse Name: Mary Hidalgo RN Position: [facility] PCO RN Member Role: Primary Care Nurse Name: Sissy Duran RN Position: [facility] AMB Nurse Member Role: Primary Care Nurse Name: Rohit Zavaleta RN Position: [facility] RN Member Role: Primary Care Nurse Name: Erlinda Hartman NP Position: [facility] Associate Professional Member Role: Primary Care Nurse Address: Address: [address] [place] [address] Name: Jong Suazo RN Position: [facility] RN Supv Member Role: Primary Care Nurse Name: Shante Solis RN Position: [facility] RN Member Role: Primary Care Nurse Name: Joshua Prakash RN Position: [facility] RN Member Role: Primary Care Nurse Name: Bettie Vanegas RN Position: [facility] SN RN Member Role: Primary Care Nurse Name: Jay Marroquin RN Position: [facility] RN Member Role: Primary Care Nurse Name: Adrianna Church RN Position: [facility] RN Member Role: Primary Care Nurse Name: Sue Purdy RN Position: [facility] RN Member Role: Primary Care Nurse Name: Hector Perez RN Position: [facility] RN Member Role: Primary Care Nurse Name: Aleena Vizcaino RN Position: [facility] RN Member Role: Primary Care Nurse Name: Kacey Wilhelm RN Position: [facility] RN Member Role: Primary Care Nurse Name: Monalisa Barker LPN Position: [facility] AMB Nurse Member Role: Primary Care Nurse Name: Leslie Malloy RN Position: [facility] RN Member Role: Primary Care Nurse Name: Yesenia Hu LPN Position: [facility] RN Member Role: Primary Care Nurse Name: Joaquina Herrera RN Position: [facility] RN Member Role: Primary Care Nurse Name: Diego Bell RN Position: [facility] RN Member Role: Primary Care Nurse Name: Ese Grey Position: [facility] RN Member Role: Primary Care Nurse Name: Chela Najera RN Position: [facility] RN Member Role: Primary Care Nurse Name: Tootie Gonzalez RN Position: [facility] RN Member Role: Primary Care Nurse Name: Nancy Monte RN Position: [facility] RN Member Role: Primary Care Nurse Name: Marilee Starkey Position: [facility] RN Member Role: Primary Care Nurse Name: Silvina Dodd RN Position: [facility] RN Member Role: Primary Care Nurse Name: Flaco Clifford DO Position: [facility] Renal MD Member Role: Lifetime Consulting Physician Address: Address: [address] [place] [address] [facility] [address] Name: Marilee Richardson RN Position: [facility] RN Member Role: Primary Care Nurse Name: Rufino Johnson RN Position: [facility] RN Member Role: Primary Care Nurse Name: Jovita Camargo RN Position: [facility] RN Member Role: Primary Care Nurse Name: Ju Zhu Position: [facility] RN Member Role: Primary Care Nurse Name: Ester Palomares Position: [facility] RN Member Role: Primary Care Nurse Name: Emma Colbert RN Position: [facility] RN Supv Member Role: Primary Care Nurse Name: Hallie Gambino RN Position: [facility] Onco RN Member Role: Primary Care Nurse Name: Maya Ambriz RN Position: [facility] RN Member Role: Primary Care Nurse Name: Bhavna Rendon LPN Position: [facility] RN Member Role: Primary Care Nurse Name: Luis Burton RN Position: [facility] RN Member Role: Primary Care Nurse Name: Jaki Bishop MD Position: [facility] Primary Care Physician Member Role: PCP Address: Address: [address] [place] [address]- Name: Lucian Krause RN Position: [facility] RN Member Role: Primary Care Nurse Name: Leslie Ward RN Position: [facility] RN Member Role: Primary Care Nurse Name: Jacki Gomes RN Position: [facility] RN Member Role: Primary Care Nurse Name: Ximena Saab RN Position: [facility] RN Member Role: Primary Care Nurse Name: Ivette Shankar RN Position: [facility] RN Supv Member Role: Primary Care Nurse Name: Laura Mary RN Position: [facility] SN RN Member Role: Primary Care Nurse Name: Octavio Box RN Position: [facility] RN Member Role: Primary Care Nurse Name: Nazia Tapia RN Position: [facility] RN Member Role: Primary Care Nurse Name: Caren Hernandez RN Position: [facility] RN Supv Member Role: Primary Care Nurse Name: Veronica Queen RN Position: [facility] RN Member Role: Primary Care Nurse Name: Perri Bryant RN Position: [facility] RN Member Role: Primary Care Nurse Name: Alba Toro RN Position: [facility] RN Member Role: Primary Care Nurse Name: Nely Wong RN Position: [facility] RN Member Role: Primary Care Nurse Name: Erica Brandon RN Position: [facility] RN Member Role: Primary Care Nurse Name: Adrianna Gonzalez RN Position: [facility] RN Member Role: Primary Care Nurse Name: Annmarie Feldman RN Position: [facility] PCO w/OE and EZ Script Member Role: Primary Care Nurse Name: Chinyere Espinoza RN Position: [facility] RN Member Role: Primary Care Nurse Name: Teresita Diallo RN Position: [facility] RN Member Role: Primary Care Nurse Name: Tennille Mcgarry RN Position: [facility] Hospital Inoculator Member Role: Primary Care Nurse Name: Vicky Salazar RN Position: [facility] RN Member Role: Primary Care Nurse Name: Spencer Jameson RN Position: [facility] RN Member Role: Primary Care Nurse Name: Jalen Mullins Position: [facility] RN Member Role: Primary Care Nurse Care Team Related Persons Name: ARIANNA MARYANNE Address: home [address] [place] [address] Name: MARYANNE KELLER Address: home [address] [place] [address] Name: MARYANNE KELLER JR Address: home [address] [place] [address] Name: GEORGIA KELLER Address: [place] [address] Name: BALDEV POLANCO Address: [place] [address]
--- OUTSIDE RECORDS SUMMARY | 2023-02-09 22:35 | XMS_ITS | Continuity of Care Document ---
Author Name Unknown Organization [facility] Address [address] [place] [address]- Care Team Providers Care Automatic Car Wash Attendant Name Role Phone Dario HAYDEN, Jaki Primary Care Physician [phone] [facility]counter [facility] Date(s): 05/21/20 - 06/20/[address] [address]- Allergies, Adverse Reactions, Alerts Substance Reaction Severity [...] Given Permanently Refused 1Admin Note: VIS GIVEN [id number] 2Admin Note: VIS GIVEN 2008-12 3Admin Note: vis 4Admin Note: vis 02/06/08 Medications acetaminophen 325 mg oral tablet 1, tablet, By Mouth, 4 times a day, PRN, not to exceed 4 TABLETS PER DAY. Not to exceed 2000 mg/day. PRN Pain, # 60 tablet, Refills 0, Tot. Refills 0, Maintenance, NEEDED, 06/19/20 12:38:00 EDT, Route to Pharmacy Electronically, [facility]... Start Date: 06/19/20 Status: Ordered Alcohol Wipes [...] 0 Refills, Maintenance, 04/16/20 11:06:00 EST, Tablet, [facility] [id number], Partial fill upon patient request if the prescription is for a schedule II opioid drug., 168,... Start Date: 04/16/20 Status: Ordered clozapine 50 mg oral tablet 3 tablet = 150 mg, By Mouth, Daily at bedtime, # 90 tablet, 0 Refills, Maintenance, 04/16/20 11:06:00 EST, Tablet, [facility] [id number], Partial fill upon patient request ifthe prescription is for a schedule II opioid drug.,... Start Date: 04/16/20 Status: Ordered Coreg 12.5 mg oral tablet 12.5 mg, 1, tablet, By Mouth, 2 times a day, # 180 tablet, Refills 1, Tot. Refills 1, Maintenance, 05/26/20 14:41:00 EST, Route to Pharmacy Electronically, [facility] [id number], Partial fill upon patient request if the prescr... Start Date: 05/26/20 Stop Date: 11/22/20 Status: Ordered docusate sodium 100 mg oral capsule = 100 mg, By Mouth, 2 times a day, PRN Constipation., # 60 capsule, 3 Refills, Maintenance, 02/29/20 15:13:00 EST, Capsule, [place], [place] - [id number], Partial fill upon patient request if the [...] Maintenance,05/28/20 13:46:00 EST, Route to Pharmacy Electronically, [place], [place] - [id number], Partial fill upon patient request if the pres... Start Date: 05/28/20 Status: Ordered Glucerna (Vanilla Flavor) Glucerna (Vanilla Flavor), See Instructions, # 60 each, Refills 11, Tot. Refills 11, Maintenance, Drink 1 can BID. 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 Fax to [facility] ( [facility], #[phone]), 06/06/20 19... Start Date: 06/06/20 Status: Ordered [...] mL, 1 Refills, Maintenance, 04/16/20 11:07:00 EST, [facility] [place], [place] - [id number],... Start Date: 04/16/20 Status: Ordered lactulose 10 gm/15 ml oral syrup 30 mL, By Mouth, 2 times a day, # 581 mL, 0 Refills, Acute, 03/25/20 11:49:00 EST, [facility],10, TAKE 30 ML BY MOUTH [...] Replace Required Details, Route to Pharmacy Electronically, [facility], [facility] [id number], 168, cm, 04/16/20... Start Date: 05/01/20 Status: [...] 1 Refills, Maintenance, 05/26/20 13:28:00 EST, Tablet, [facility], [place] - [id number], 1 tablet By Mouth Daily, 168, cm, [...] 0 Refills, Maintenance, 04/16/20 11:08:00 EST, Gum, [facility], [facility] [id number], Partial fill upon patient request if the [...] 5 Refills, Maintenance, 03/05/20 16:50:00 EST, Tablet, [place], [place] - [id number], this is an increased, 1 tablet By [...] 1 Refills, Maintenance, 04/16/20 11:09:00 EST, Tablet, [place], [place] - [id number], Partial fill upon patient request if the prescription is for a schedule II opioid drug., 168, cm, 01... 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
--- OUTSIDE RECORDS SUMMARY | 2023-02-09 22:35 | XMS_ITS | Continuity of Care Document ---
Author Name Unknown Organization [facility] Address [address] [place] [address]- Care Team Providers Care Pilates Instructor Name Role Phone Dario HAYDEN, Jaki Primary Care Physician [phone] [facility] 10/19/21 - 11/18/[address] [address]- Allergies, Adverse Reactions, Alerts Substance Reaction Severity [...] Or Guardian Refuses influenza virus vaccine, inactivated 11/16/13 Not Given Patient Refuses pneumococcal 23-valent vaccine 10/11/19 Not Given Permanently Refused 1Result Comment: Patient verbally consented to COVID vaccine 2Admin Note: VIS GIVEN [id number] 3Admin Note: VIS GIVEN 2008- 4Admin Note: vis 5Admin Note: vis 02/06/08 Medications Abilify 10 mg oral tablet 10 mg, 1, tablet, By Mouth, Daily, # 90 tablet, Refills 3, Tot. Refills 3, Maintenance, 07/07/21 8:56:00 EDT, Route to Pharmacy Electronically, [place] - [id number], Partialfill upon patient request if the prescription [...] EDT, Route to Pharmacy Electronically, [facility] [id number], Partial fill upon patient request if the prescri... Start Date: 07/07/21 Status: Ordered Comfort EZ Pen [place] 31 gauge x 5/16 USE TO inject insulin 4 (FOUR) TIMES DAILY Start Date: 07/03/21 Status: Ordered Coreg 6.25 mg oral tablet 6.25 mg, 1, tablet, By Mouth, 2 times a day, # 180 tablet, Refills 3, Tot. Refills 3, Maintenance, 07/07/21 8:56:00 EDT, Route to Pharmacy Electronically, [facility] [id number], Partial fill upon patient request if the prescri... Start Date: 07/07/21 Status: Ordered Daily Multiple Vitamins oral tablet 1 tablet, By Mouth, Daily, # 90 tablet, 3 Refills, Maintenance, 07/07/21 8:56:00 EDT, Tablet, [facility] [id number], Partial fill upon patient request if the prescription is for a schedule II opioid drug., 1 tablet By Mouth Da... Start Date: 07/07/21 Status: Ordered divalproex sodium 250 mg oral enteric coated tablet 1 tablet = 250 mg, By Mouth, Daily in AM, # 90 tablet, 3 Refills, Maintenance, 07/07/21 8:56:00 EDT, Tablet, [facility] [id number], Partial fill upon patient request if the prescription is for a schedule II opioid drug., 167,... Start Date: 07/07/21 Status: Ordered divalproex sodium 500 mg oral enteric coated tablet 1 tablet = 500 mg, By Mouth, Daily at bedtime, # 90 tablet, 3 Refills, Maintenance, 07/07/21 8:56:00 EDT, Tablet, [facility] [id number], Partial fill upon patient request if the prescription is for a schedule II opioid drug.,... Start Date: 07/07/21 Status: Ordered Eucerin Unscented topical lotion See Instructions, Apply daily as directed to dry skin. 16 oz, # 1 each, 3 Refills, Maintenance, 07/07/21 9:02:00 EDT, [place] - [id number], Partial fill upon patient requestif the prescription is for a schedule II opioid drLitzy.. Start Date: 07/07/21 Status: Ordered folic acid 1 mg oral tablet 1 mg, 1, tablet, By Mouth, Daily, # 30 tablet, Refills 1, Tot. Refills 1, Maintenance, 10/21/21 12:44:00 EDT, Route to Pharmacy Electronically, [place] - [id number], Partialfill upon patient request if the prescription [...] EDT, Route to Pharmacy Electronically, [facility] [id number], Partial fill upon patient request if the p... Start Date: 07/07/21 Status: Ordered gabapentin 100 mg oral capsule 200 mg, 2, capsule, By Mouth, Daily at bedtime, # 180 capsule, Refills 3, Tot. Refills 3, Maintenance, 07/07/21 8:56:00 EDT, Route to Pharmacy Electronically, [facility] [id number], Partial fill upon patient request if the pre... Start Date: 07/07/21 Status: Ordered guaiFENesin 100 mg/5 mL oral liquid 5 mL = 100 mg, By Mouth, Every 4 hours, PRN for cough, # 300 mL, 0 Refills, Acute 07/07/22 9:05:00 EDT, 07/07/21 9:02:00 EDT, Liquid, [place] - [id number], Partial fill uponpatient request if the prescription [...] a day, # 581 mL, 3 Refills, [facility], 10, TAKE 30mls BY MOUTH 2 (two) times a day, 167, cm, 07/07/21 8:39:00 EDT, Height, 95.6, kg, 06/29/21 18:39:00 EDT, Dry Weight Start Date: 08/10/21 Status: Ordered Lantus Solostar Pen 100 units/mL subcutaneous solution = 16 units, Subcutaneous Infusion, Daily, # 15 mL, 5 Refills, Maintenance, 09/11/21 17:25:00 EDT, [facility] [id number], Partial fill upon patient request if the prescriptionis for a schedule II opioid drug., 167, cm, ... Start Date: 09/11/21 Status: Ordered loratadine 10 mg oral tablet 10 mg, 1, tablet, By Mouth, Daily, # 90 tablet, Refills 3, Tot. Refills 3, Maintenance, 07/07/21 8:56:00 EDT, Route to Pharmacy Electronically, [facility] [id number], Partialfill upon patient request if the prescription is fo... Start Date: 07/07/21 Status: Ordered magnesium oxide 400 mg oral tablet 1 tablet = 400 mg, By Mouth, 2 times a day, # 180 tablet, 3 Refills, Maintenance, 07/07/21 8:56:00 EDT, Tablet, [facility] [id number], Partial fill upon patient request if the prescription is for a schedule II opioid drug., 16... Start Date: 07/07/21 Status: Ordered melatonin 3 mg oral tablet 1 tablet = 3 mg, By Mouth, Daily at bedtime, PRN Insomnia, # 90 tablet, 3 Refills, Maintenance, 07/07/21 8:56:00 EDT, Tablet, [facility] [id number], Partial fill upon patientrequest if the prescription is for a schedule II op... Start Date: 07/07/21 Status: Ordered nicotine 2 mg oral transmucosal lozenge 1 lozenge = 2 mg, By Mouth, Every hour, PRN Other, Nicotine Withdrawal Symptoms (not to exceed 20 lozenges per day), # 72 lozenge, 3 Refills, Maintenance, 07/07/21 8:56:00 EDT, Lozenge, [facility] [id number], Partial fill upon... Start Date: 07/07/21 Status: Ordered pancrelipase 10,000 units-32,000 units-42,000 units oral delayed release capsule 1 capsule, By Mouth, 3 times a day, with each meal and snack, # 270 capsule, 3 Refills, Maintenance, 10/21/21 17:17:00 EDT, CR Capsule, [place] - [id number], Partial fill upon patient request if the prescription is for a sche... Start Date: 10/21/21 Status: Ordered pantoprazole 40 mg oral delayed release tablet 1 tablet = 40 mg, By Mouth, Daily, # 90 tablet, 3 Refills, Maintenance, 10/19/21 14:26:00 EDT, EC Tablet, 167, cm, 07/07/21 8:39:00 EDT, Height, 95.6, kg, 06/29/21 18:39:00 EDT, Dry Weight Start Date: 10/19/21 Status: Ordered Pen Bronx, 31 G x 8 mm BD Ultra [...] 10/21/21 12:48:00 EDT, Route to Pharmacy Electronically, [place] - [id number],Partial fill upon patient request if the prescripti... [...] 3 Refills, Maintenance, 07/07/21 8:56:00 EDT, Tablet, [facility] [place], [place] - [id number], Partial fill upon patient request if theprescription [...] Active H/O tubal ligation(Confirmed) Active BHN/ CP Survey Analyst/Janet salvador [facility] [phone](Confirmed) Active Heart failure(Confirmed) Active History of cholecystectomy(Confirmed) [...] Yes; Type: Cigarettes entered on: 06/29/21 Sex Care Team Personnel Name: Jaki Bishop MD Address: [address] [place] [address]- [place]
--- OUTSIDE RECORDS SUMMARY | 2023-02-09 22:35 | XMS_ITS | Continuity of Care Document ---
Author Name Unknown Organization [facility] Address [address] [place] [address]- Care Team Providers Care Gun Mechanic Name Role Phone Jaki Bishop MD Primary Care Physician [phone] [facility]): 08/21/20 - 09/20/[address] [address] Allergies, Adverse Reactions, Alerts Substance Reaction Severity Status predniSONE Dizzinesses 02-JAN-2016 21:52:27<$> Active Zyprexa Hypertension Active NSAIDs Active Immunizations Given and Recorded Vaccine Date Status Refusal Reason SARS-CoV-2 (COVID-19) Ad26 vaccine 1 09/03/20 Give n influenza virus vaccine, inactivated 04/12/20 Give n influenza virus vaccine, inactivated 12/14/17 Give n influenza virus vaccine, inactivated 12/21/16 Give n influenza virus vaccine, inactivated 02/20/16 Give n influenza virus vaccine, inactivated 02/21/15 Give n influenza virus vaccine, inactivated 12/26/13 Give n influenza virus vaccine, inactivated 02/23/13 Give n influenza virus vaccine, inactivated 03/04/08 Give n Influenza Vaccine (oldterm) 2 01/25/11 [...] to COVID vaccine 2Admin Note: VIS GIVEN [id number] 3Admin Note: VIS GIVEN 2008-12 4Admin Note: vis 5Admin Note: vis 02/06/08 Medications acetaminophen 325 mg oral tablet 1, tablet, By Mouth, 4 times a day, PRN, not to exceed 4 TABLETS PER DAY. Not to exceed 2000 mg/day. PRN Pain, # 60 tablet, Refills 5, Tot. Refills 5, Maintenance, NEEDED, 08/14/20 16:55:00 EDT, Route to Pharmacy Electronically, [facility]... Start Date: 08/14/20 Status: Ordered Clozaril 100 [...] 05/26/20 14:41:00 EST, Route to Pharmacy Electronically, [facility] [id number], Partial fill upon patient request if the prescr... Start Date: 05/26/20 Stop Date: 11/22/20 Status: Ordered gabapentin 100 mg oral capsule 200 mg, 2, capsule, By Mouth, 2 times a day, # 120 capsule, Refills 5, Tot. Refills 5, Maintenance,05/28/20 13:46:00 EST, Route to Pharmacy Electronically, [facility] [id number], Partial fill upon patient request if the presc... Start Date: 05/28/20 Status: Ordered Humalog Kwik Pen 100 units/mL subcutaneous injection See Instructions, 3 Units for bood sugar above 120 mg/dl and then add 2 Units for every 50 mg/dl rise above 120. Three times a day before meals., # 15 mL, 1 Refills, Maintenance, 04/16/20 11:07:00 EST, [facility] [id number],... Start Date: 04/16/20 Status: Ordered lactulose 10 [...] 1 Refills, Maintenance, 08/20/20 16:55:00 EDT, Solution, [facility], [place] - [id number], 168, cm, 04/16/20 8:30:00 EST, Height, 98.7, kg, 03/22... Start Date: 08/20/20 Status: Ordered loratadine 10 mg oral tablet See Instructions, TAKE ONE TABLET BY MOUTH DAILY, # 30 tablet, Refills 5, Tot. Refills 5, 05/01/20 8:18:00 EST, Instructions Replace Required Details, Route to Pharmacy Electronically, [facility], [place] - [id number], 168, cm, 04/16/20... Start Date: 05/01/20 Status: [...] 5 Refills, Maintenance, 07/14/20 16:30:00 EDT, Tablet, [facility] [id number], this is an increased, 1 tablet By Mouth 2 times a day,x30 days, 168, cm, 04/16/20 8:30:00 EST, Heigh... Start Date: 07/14/20 Stop Date: 01/10/21 Status: Ordered torsemide 20 mg oral tablet 1 tablet = 20 mg, By Mouth, Daily, # 30 tablet, 1 Refills, Maintenance, 04/16/20 11:09:00 EST, Tablet, [facility] [id number], Partial fill upon patient request if the prescription is for a schedule II opioid drug., 168, cm, 01... Start Date: 04/16/20 Stop Date: 04/11/21 Status: Ordered Zenpep 10,000 units-32,000 units-42,000 units oral delayed release capsule 1 capsule, By Mouth, 3 times a day, # 90 capsule, 0 Refills, Maintenance, 04/16/20 11:09:00 EST, [facility] [id number], 1 capsule By Mouth 3 times a [...] Active H/O tubal ligation(Confirmed) Active BHN/BH CP Cfo Controller/Janet salvador [facility] [phone](Confirmed) Active History of cholecystectomy(Confirmed) Active Hypertension(Confirmed) Active [...]
--- OUTSIDE RECORDS SUMMARY | 2023-02-09 22:35 | XMS_ITS | Continuity of Care Document ---
Author Name Unknown Organization [facility] Address [address] [place] [address]- Care Team Providers Care Airport Operations Duty Manager Name Role Phone Dario HAYDEN, Jaki Primary Care Physician [facility] Date[facility]s): 07/29/22 - 08/28/[address] [address]- Allergies, Adverse Reactions, Alerts Substance Reaction Severity [...] to COVID vaccine 2Admin Note: VIS GIVEN [id number] 3Admin Note: VIS GIVEN 2008-12 4Admin Note: vis 5Admin Note: vis 02/06/08 Medications albuterol 90 mcg/inh inhalation powder 2 puffs, Inhalation, Every 4 hours, PRN as needed, PRN Wheezing, # 1 each, 1 Refills, Maintenance, 06/28/22 14:49:00 EDT, Powder, [facility] [id number], Partial fill upon patient request if the [...] 07/16/22 16:04:00 EDT, Route to Pharmacy Electronically, [facility] [id number], Partialfill upon patient request if the prescription is fo... Start Date: 07/16/22 Status: Ordered benztropine 1 mg oral tablet 0.5 mg, 0.5, tablet, By Mouth, 2 times a day, # 30 tablet, Refills 3, Tot. Refills 3, Maintenance, 04/29/22 14:29:00 EST, Route to Pharmacy Electronically, [facility] [id number], Partial fill upon patient request if the prescr... Start Date: 04/29/22 Stop Date: 08/27/22 Status: Ordered carvedilol 12.5 mg oral tablet TAKE 1 TABLET BY MOUTH EVERY TWELVE HOURS Start Date: 07/20/22 Status: Ordered carvedilol 12.5 mg oral tablet See Instructions, TAKE 1 TABLET BY MOUTH EVERY TWELVE HOURS, # 60 tablet, Refills 3, Tot. Refills 3, Maintenance, 07/30/22 16:33:00 EDT, Instructions Replace Required Details, Route to Pharmacy Electronically, [facility], 160, cm, 07/26/22 12:51:... Start Date: 07/30/22 Status: Ordered cloNIDine 0.1 mg oral tablet 0.1 mg, 1, tablet, By Mouth, Daily, # 30 tablet, Refills 3, Tot. Refills 3, Maintenance, 04/29/22 14:29:00 EST, Route to Pharmacy Electronically, [place], [place] - [id number], Partial fill upon patient request if the prescription is... Start Date: 04/29/22 Stop Date: 08/27/22 Status: Ordered Creon 12,000 units oral delayed release capsule 1 capsule, By Mouth, 3 times a day, # 90 capsule, 3 Refills, Maintenance, 04/29/22 14:37:00 EST, ECCapsule, [place], [place] - [id number], Partial fill upon patient request if the [...] 06/01/22 16:34:00 EDT, Route to Pharmacy Electronically, [facility], 167, cm, 03/25/22 3:14:00 EST, Height, [...] 2 times a day, # 1,200 mL, 1 Refills, Maintenance, 07/22/22 15:51:00 EDT, [facility], 15, TAKE 30 ML BY MOUTH two (2) times a day, 160, cm, 07/21/22 10:57:00 EDT, Height, 89.2, kg, 07/21/22 3:29:00 EDT, Dry Weight Start Date: 07/22/22 Status: Ordered Lantus Solostar Pen 100 units/mL subcutaneous solution = 6 units, Subcutaneous Injection, Daily in AM, # 10 mL, 2 Refills, Maintenance, 04/29/22 14:34:00 EST, Solution, [facility] [place], [place] - [id number], Partial fill upon patient request if the prescription is for a schedule II opioid drug.,... Start Date: 04/29/22 Status: Ordered multivitamin Multiple Vitamins oral tablet 1 tablet, By Mouth, Daily, # 90 tablet, 1 Refills, Maintenance, 04/02/22 16:44:00 EST, Tablet, [facility] [id number], Partial fill upon patient request if the [...] 04/29/22 14:39:00 EST, Route to Pharmacy Electronically, [facility] [id number], Partial fill upon patient request if the prescription... Start Date: 04/29/22 Stop Date: 08/27/22 Status: Ordered risperiDONE 3 mg oral tablet 3 mg, 1, tablet, By Mouth, Daily at bedtime, # 30 tablet, Refills 3, Tot. Refills 3, Maintenance, 04/29/22 14:39:00 EST, Route to Pharmacy Electronically, [facility] [id number], Partial fill upon patient request if the prescri... Start Date: 04/29/22 Status: Ordered tiotropium 2.5 mcg/inh inhalation aerosol 2 puffs, Inhalation, Daily, # 1 each, 5 Refills, Maintenance, 06/28/22 14:48:00 EDT, Inhaler, [facility] [id number], Partial fill upon patient request if the [...] Care Team Personnel Name: Lawrence Hendrix Position: [facility] RN Supv Member Role: Primary Care Nurse Name: Rufino Lloyd RN Position: [facility] RN Member Role: Primary Care Nurse Name: Cristina Carpenter RN Position: [facility] RN Member Role: Primary Care Nurse Name: Rosette Noriega RN Position: [facility] SN RN Member Role: Primary Care Nurse Name: Mary Hidalgo RN Position: [facility] AMB Nurse Member Role: Primary Care Nurse Name: Sissy Duran RN Position: [facility] AMB Nurse Member Role: Primary Care Nurse Name: Rohit Zavaleta RN Position: [facility] RN Member Role: Primary Care Nurse Name: Erlinda Hartman NP Position: [facility] Associate Professional Member Role: Primary Care Nurse Address: Address: [address] [place] [address] Name: Shante Solis RN Position: [facility] RN Member Role: Primary Care Nurse Name: Joshua Prakash RN Position: [facility] RN Member Role: Primary Care Nurse Name: Bettie Vanegas RN Position: [facility] SN RN Member Role: Primary Care Nurse Name: Jay Marroquin RN Position: [facility] RN Member Role: Primary Care Nurse Name: Adrianna Church RN Position: [facility] RN Member Role: Primary Care Nurse Name: Sue Purdy RN Position: [facility] RN Member Role: Primary Care Nurse Name: Hector Perez RN Position: [facility] RN Member Role: Primary Care Nurse Name: Aleena Vizcaino RN Position: [facility] RN Member Role: Primary Care Nurse Name: Kacey Wilhelm RN Position: [facility] RN Member Role: Primary Care Nurse Name: Leslie Malloy RN Position: [facility] RN Member Role: Primary Care Nurse Name: Yesenia Hu LPN Position: [facility] RN Member Role: Primary Care Nurse Name: Joaquina Herrera RN Position: [facility] RN Member Role: Primary Care Nurse Name: Diego Bell RN Position: [facility] RN Member Role: Primary Care Nurse Name: Ese Grey Position: [facility] RN Member Role: Primary Care Nurse Name: Chela Najera RN Position: [facility] RN Member Role: Primary Care Nurse Name: Tootie Gonzalez RN Position: [facility] RN Member Role: Primary Care Nurse Name: Nancy Monte RN Position: [facility] RN Member Role: Primary Care Nurse Name: Marilee Starkey Position: [facility] RN Member Role: Primary Care Nurse Name: Silvina Dodd RN Position: [facility] RN Member Role: Primary Care Nurse Name: Flaco Clifford DO Position: [facility] Renal MD Member Role: Lifetime Consulting Physician Address: Address: [address] [place], [place] [address] [place], [place] [address] Name: Marilee Richardson RN Position: [facility] RN Member Role: Primary Care Nurse Name: Rufino Johnson RN Position: [facility] RN Member Role: Primary Care Nurse Name: Jovita Camargo RN Position: [facility] RN Member Role: Primary Care Nurse Name: Ju Zhu Position: [facility] RN Member Role: Primary Care Nurse Name: Ester Palomares Position: [facility] RN Member Role: Primary Care Nurse Name: Emma Colbert RN Position: [facility] RN Supv Member Role: Primary Care Nurse Name: Hallie Gambino RN Position: [facility] Onco RN Member Role: Primary Care Nurse Name: Maay Ambriz RN Position: [facility] RN Member Role: Primary Care Nurse Name: Bhavna Rendon LPN Position: [facility] RN Member Role: Primary Care Nurse Name: Luis Burton RN Position: [facility] RN Member Role: Primary Care Nurse Name: Jaki Bishop MD Position: [facility] Physician - Primary Care Member Role: PCP Address: Address: [address] [place] [address] Name: Lucian Krause RN Position: [facility] RN Member Role: Primary Care Nurse Name: Isaiah Combs RN Position: [facility] RN Member Role: Primary Care Nurse Name: Leslie Ward RN Position: [facility] RN Member Role: Primary Care Nurse Name: Jacki Gomes RN Position: [facility] RN Member Role: Primary Care Nurse Name: Ximena Saab RN Position: [facility] RN Member Role: Primary Care Nurse Name: Mar Brothers RN Position: [facility] RN Member Role: Primary Care Nurse Name: Ivette Shankar RN Position: [facility] RN Supv Member Role: Primary Care Nurse Name: Laura Mary RN Position: [facility] SN RN Member Role: Primary Care Nurse Name: Mary Guillen RN Position: [facility] RN Member Role: Primary Care Nurse Name: Octavio Box RN Position: [facility] RN Member Role: Primary Care Nurse Name: Nazia Tapia RN Position: [facility] RN Member Role: Primary Care Nurse Name: Pat Jackson RN Position: [facility] RN Member Role: Primary Care Nurse Name: Caren Hernandez RN Position: [facility] RN Supv Member Role: Primary Care Nurse Name: Perri Bryant RN Position: [facility] RN Member Role: Primary Care Nurse Name: Alba Toro RN Position: [facility] RN Member Role: Primary Care Nurse Name: Nely Wong RN Position: [facility] RN Member Role: Primary Care Nurse Name: Erica Brandon RN Position: [facility] RN Member Role: Primary Care Nurse Name: Adrianna Gonzalez RN Position: [facility] RN Member Role: Primary Care Nurse Name: Annmarie Feldman RN Position: [facility] PCO w/OE and EZ Script Member Role: Primary Care Nurse Name: Chinyere Espinoza RN Position: [facility] RN Member Role: Primary Care Nurse Name: Imani RAMIREZ, Teresita Reyes Position: [facility] RN Member Role: Primary Care Nurse Name: Tennille Mcgarry RN Position: [facility] Hospital Company Accountant Member Role: Primary Care Nurse Name: Marie RAMIREZ, Vicky Position: [facility] RN Member Role: Primary Care Nurse Name: Spencer Jameson RN Position: [facility] RN Member Role: Primary Care Nurse Name: Jalen Mullins Position: [facility] RN Member Role: Primary Care Nurse Care Team Related Persons Name: MARYANNE KELLER Address: [address] [place] [address] Name: MARYANNE KELLER Address: home [address] [address] Name: MARYANNE KELLER JR Address: home [address] [place] [address] Name: GEORGIA KELLER Address: [place] [address] Name: BALDEV POLANCO Address: [place] [address]
--- OUTSIDE RECORDS SUMMARY | 2023-02-09 22:35 | XMS_ITS | Continuity of Care Document ---
Author Name Unknown Organization [facility] Address [address] [place] [address]- Care Team Providers Care Food And Beverage Intern Name Role Phone Jaki Bishop MD Primary Care Physician [facility]20 - 05/19/[address] [address]- Allergies, Adverse Reactions, Alerts Substance Reaction Severity [...] Given Permanently Refused 1Admin Note: VIS GIVEN [id number] 2Admin Note: VIS GIVEN 2008-12 3Admin Note: vis 4Admin Note: vis 02/06/08 Medications acetaminophen 325 mg oral tablet 1, tablet, By Mouth, 4 times a day, PRN, not to exceed 4 TABLETS PER DAY, # 60 tablet, Refills 0, Tot. Refills 0, Acute, NEEDED, 05/01/20 9:37:00 EST, Route to Pharmacy Electronically, [facility], 168, cm, 04/16/20 8:30:00 EST, Height, 98.7, [...] 0 Refills, Maintenance, 04/16/20 11:06:00 EST, Tablet, [facility] [id number], Partial fill upon patient request if the prescription is for a schedule II opioid drug., 168,... Start Date: 04/16/20 Status: Ordered clozapine 50 mg oral tablet 3 tablet = 150 mg, By Mouth, Daily at bedtime, # 90 tablet, 0 Refills, Maintenance, 04/16/20 11:06:00 EST, Tablet, [facility] [id number], Partial fill upon patient request ifthe prescription is for a schedule II opioid drug.,... Start Date: 04/16/20 Status: Ordered Coreg 6.25 mg oral tablet 6.25 mg, 1, tablet, By Mouth, 2 times a day, # 60 tablet, Refills 0, Tot. Refills 0, Maintenance, 04/16/20 11:05:00 EST, Route to Pharmacy Electronically, [facility] [id number], Partial fill upon patient request, 168, cm, 03/22... Start Date: 04/16/20 Status: Ordered docusate sodium 100 mg oral capsule = 100 mg, By Mouth, 2 times a day, PRN Constipation., # 60 capsule, 3 Refills, Maintenance, 02/29/20 15:13:00 EST, Capsule, [facility] [id number], Partial fill upon patient request if the [...] Maintenance,04/16/20 11:06:00 EST, Route to Pharmacy Electronically, [facility] [id number], Partial fill upon patient request if the [...] mL, 1 Refills, Maintenance, 04/16/20 11:07:00 EST, [place], [place] - [id number],... Start Date: 04/16/20 Status: Ordered lactulose 10 gm/15 ml oral syrup 30 mL, By Mouth, 2 times a day, # 581 mL, 0 Refills, Acute, 03/25/20 11:49:00 EST, [facility],, TAKE 30 ML BY MOUTH 2 (two) [...] units/mL subcutaneous solution = 16 units, Subcutaneous Injection, Daily at bedtime, # 10 mL, 1 Refills, Maintenance, 04/16/20 11:07:00 EST, Solution, [place], [place] - [id number], 168, cm, 04/16/20 8:30:00 EST, Height, 98.7, kg, 04/11/20 2:10:00 EST, Dry Weight Start Date: 04/16/20 Status: Ordered loratadine 10 mg oral tablet See Instructions, TAKE ONE TABLET BY MOUTH DAILY, # 30 tablet, Refills 5, Tot. Refills 5, 05/01/20 8:18:00 EST, Instructions Replace Required Details, Route to Pharmacy Electronically, [facility] [id number], 168, cm, 04/16/20... Start Date: 05/01/20 Status: [...] 1 Refills, Maintenance, 08/07/19 14:23:00 EDT, Tablet, [place], [place] -, 1 tablet By Mouth Daily, [...] 0 Refills, Maintenance, 04/16/20 11:08:00 EST, Gum, [place], [place] - [id number], Partial fill upon patient request if the [...] daily, Dx: CHF I50.9 Please fax to [facility] , 04/29/20 17:20:00 EST, Supply Start Date: 04/29/20 Status: Ordered sacubitril-valsartan 97 mg-103 mg oral tablet 1 tablet, By Mouth, 2 times a day, # 60 tablet, 5 Refills, Maintenance, 03/05/20 16:50:00 EST, Tablet, [facility] [id number], this is an increased, 1 tablet By [...] 1 Refills, Maintenance, 04/16/20 11:09:00 EST, Tablet, [facility] [id number], Partial fill upon patient request if the prescription is for a schedule II opioid drug., 168, cm, 01... Start Date: 04/16/20 Stop Date: 04/11/21 Status: Ordered Zenpep 10,000 units-32,000 units-42,000 units oral delayed release capsule 1 capsule, By Mouth, 3 times a day, # 90 capsule, 0 Refills, Maintenance, 04/16/20 11:09:00 EST, [place], [place] - [id number], 1 capsule By Mouth 3 times a day, 168, cm, 04/16/20 8:30:00 EST, Height, 98.7, kg, 04/11/20 2:10:00 Golden MICHAEL Start Date: 04/16/20 Status: Ordered Problem List [...] Active H/O tubal ligation(Confirmed) [facility] Apprent[facility] [phone](Confirmed) Active History of cholecystectomy(Confirmed) Active Hypertension(Confirmed) Active [...]
--- OUTSIDE RECORDS SUMMARY | 2023-02-09 22:35 | XMS_ITS | Continuity of Care Document ---
Author Name Unknown Organization [facility] Address [address] [place] [id number]- Care Team Providers Care Party Plan Demonstrator Name Role Phone Jaki Bishop MD Primary Care Physician [facility]s): [facility]/19/19 - 03/14/[address] [id number] Attending Physician: Jaki Bishop MD Admitting Physician: [...] Given Permanently Refused 1Admin Note: VIS GIVEN [id number] 2Admin Note: VIS GIVEN 2008-12 3Admin Note: vis 4Admin Note: vis 02/06/08 Medications acetaminophen 325 mg oral tablet 1, tablet, By Mouth, 4 times a day, PRN, no MORE THAN 4 TABLETS PER DAY., # 60 tablet, Refills 1, Tot. Refills 1, Maintenance, NEEDED, 03/06/20 9:09:00 EST, Route to Pharmacy Electronically, [facility] [id number], 168, cm,... Start Date: 03/06/20 Status: Ordered bisacodyl 10 mg rectal suppository [...] tablet, Refills 3, Tot. Refills 3, Maintenance, 03/05/20 16:49:00 EST, Route to Pharmacy Electronically, [facility] [id number], Partial fill upon patient request, 168, cm, 11/... Start Date: 03/05/20 Status: Ordered docusate sodium 100 mg oral capsule = 100 mg, By Mouth, 2 times a day, PRN Constipation., # 60 capsule, 3 Refills, Maintenance, 02/29/20 15:13:00 EST, Capsule, [facility] [id number], Partial fill upon patient request if the prescription is for a schedule II opio... Start Date: 02/29/20 Stop Date: 06/28/20 Status: Ordered gabapentin 100 mg oral capsule 200 mg, 2, capsule, By Mouth, 2 times a day, # 120 capsule, Refills 0, Tot. Refills 0, Maintenance,03/05/20 16:51:00 EST, Route to Pharmacy Electronically, [facility] [id number], Partial fill upon patient [facility] if the [facility]... Start Date: 03/05/20 Status: Ordered Humalog Kwik Pen 100 units/mL subcutaneous injection See Instructions, 4 Units for bood sugar above 120 mg/dl and then add 2 Units for every 50 mg/dl rise above 120. Three times a day before meals., # 15 mL, 6 Refills, Maintenance, 03/05/20 16:52:00 EST, [facility] [id number],... Start Date: 03/05/20 Status: Ordered lactulose 10 gm/15 ml oral [...] Details, Route to Pharmacy Electronically, [facility] [id number], 168, cm, 12/17/19... Start Date: 02/01/20 Status: [...] 1 Refills, Maintenance, 08/07/19 14:23:00 EDT, Tablet, [place], [place] -, 1 tablet By Mouth Daily, [...] Maintenance, 03/05/20 16:50:00 EST, Tablet, [facility] [id number], this is an increased, 1 tablet By Mouth 2 times a day,x30 days, 168, cm, 02/10/20 5:58:00 EST, [place]... Start Date: 03/05/20 Stop Date: 09/01/20 Status: Ordered Senna 8.6 mg oral tablet 8.6 mg, 1, tablet, By Mouth, Daily, Refills 0, Maintenance, 12/17/19 11:57:00 EDT, Tablet Start Date: 12/17/19 Status: Ordered torsemide 20 mg oral tablet 1 tablet = 20 mg, By Mouth, Daily, # 90 tablet, 3 Refills, Maintenance, 03/05/20 16:51:00 EST, Tablet, [facility], [place] - [id number], Partial fill upon patient request if the prescription is for a schedule II opioid drug., 168, cm, 11... Start Date: 03/05/20 Stop Date: 02/28/21 Status: Ordered Zenpep 10,000 units-32,000 units-42,000 units oral delayed release capsule 1 capsule, By Mouth, 3 times a day, # 90 capsule, 6 Refills, Maintenance, 03/06/20 9:09:00 EST, [facility] - [place], [place] - [id number], 1 capsule By Mouth 3 times a day, 168, cm, 02/10/20 5:58:00 EST, Height, 106.8, kg, 10/28/19 9:52:00 Mary GAITAN. Start Date: 03/06/20 Status: Ordered Problem List Condition Effective Dates [...] Active H/O tubal ligation(Confirmed) Active BHN/BH CP Director Of Group Sales/Janet Pandey [phone](Confirmed) Active History of cholecystectomy(Confirmed) Active Hypertension(Confirmed) Active [...]
--- OUTSIDE RECORDS SUMMARY | 2023-02-09 22:36 | XMS_ITS | Continuity of Care Document ---
Author Name Unknown Organization [facility] Address [address] [place] [id number]- Care Team Providers Care Secret Service Agent Name Role Phone Jaki Bishop MD Primary Care Physician [facility] 01/[facility] - 02/20/[address] [id number] Allergies, Adverse Reactions, Alerts Substance [...] to COVID vaccine 2Admin Note: VIS GIVEN [id number] 3Admin Note: VIS GIVEN 2008- 4Admin Note: [...] 02/06/21 19:54:00 EST, Route to Pharmacy Electronically, [facility] [id number], Partial fill upon patient request if the [...] mL, 5 Refills, Maintenance, 02/06/21 19:54:00 EST, [facility] [id number], Partial fill upon patient request if the prescription is for a schedule II opioid d... Start Date: 02/06/21 Stop Date: 08/05/21 Status: Ordered loratadine 10 mg oral tablet 10 mg, 1, tablet, By Mouth, Daily, # 30 tablet, Refills 0, Tot. Refills 0, Maintenance, 11/28/20 9:25:00 EDT, Route to Pharmacy Electronically, [facility], Partial fill upon patient [...] a day, # 60 tablet, 0 Refills, [facility], 167.64, cm, 11/27/20 22:30:00 EDT, Height, 98.5, kg, 10/22/20 17:50:00 EDT, Dry Weight Start Date: 01/08/21 Status: Ordered Nicoderm C-Q Clear 14 mg/24 hr transdermal film, extended release 1 patch, Topically, Daily, for 30 days, # 30 patch, 0 Refills, Acute 03/18/21 13:06:00 EST, 02/16/21 13:06:00 EST, Patch, [facility], Partial fill upon patient request if the prescription is for a schedule II opioid drug., 166.6, cm, ... Start Date: 02/16/21 Stop Date: 03/18/21 Status: Ordered Nicotine 2 mg gum = 2 mg, Chew, Every 2 hours, PRN Other, for 6 week(s), Nicotine Cravings, # 40 each, 1 Refills, Acute 05/11/21 13:06:00 EST, 02/16/21 13:06:00 EST, Gum, [facility], Partial fill upon patient [...] 0 Refills, Maintenance,02/06/21 19:56:00 EST, CR Capsule, [place], [place] - [id number], Partial fill upon patient request if the [...] 0 Refills, Maintenance, 11/28/20 9:27:00 EDT, Nasal [place], [facility] 3, Partial fill upon patient request [...] 5 Refills, Maintenance, 02/06/21 19:56:00 EST, Tablet, [place], [place] - [id number], Partial fill upon patient request if the [...] Active H/O tubal ligation(Confirmed) Active BHN/BH CP Hog Scalder/Janet Pandey [phone](Confirmed) Active History of cholecystectomy(Confirmed) Active Hypertension(Confirmed) Active [...]
--- OUTSIDE RECORDS SUMMARY | 2023-02-09 22:36 | XMS_ITS | Continuity of Care Document ---
Author Name Unknown Organization [facility] Address [address] [place] [address]- Care Team Providers Care Internal Audit Director Name Role Phone Dario HAYDEN, Jaki Primary Care Physician [facility]): 05[facility]20 - 06/21/20 [facility] [address] [place] [id number] Allergies, Adverse Reactions, Alerts Substance [...] Given Permanently Refused 1Admin Note: VIS GIVEN [id number] 2Admin Note: VIS GIVEN 2008-12 3Admin Note: vis 4Admin Note: vis 02/06/08 Medications acetaminophen 325 mg oral tablet 1, tablet, By Mouth, 4 times a day, PRN, not to exceed 4 TABLETS PER DAY. Not to exceed 2000 mg/day. PRN Pain, # 60 tablet, Refills 0, Tot. Refills 0, Maintenance, NEEDED, 06/19/20 12:38:00 EDT, Route to Pharmacy Electronically, [facility]... Start Date: 06/19/20 Status: Ordered Alcohol Wipes [...] Maintenance, 04/16/20 11:06:00 EST, Tablet, [facility] [id number], Partial fill upon patient request if the prescription is for a schedule II opioid drug., 168,... Start Date: 04/16/20 Status: Ordered clozapine 50 mg oral tablet 3 tablet = 150 mg, By Mouth, Daily at bedtime, # 90 tablet, 0 Refills, Maintenance, 04/16/20 11:06:00 EST, Tablet, [facility] [id number], Partial fill upon patient request ifthe prescription is for a schedule II opioid drug.,... Start Date: 04/16/20 Status: Ordered Coreg 12.5 mg oral tablet 12.5 mg, 1, tablet, By Mouth, 2 times a day, # 180 tablet, Refills 1, Tot. Refills 1, Maintenance, 05/26/20 14:41:00 EST, Route to Pharmacy Electronically, [facility] [id number], Partial fill upon patient request if the prescr... Start Date: 05/26/20 Stop Date: 11/22/20 Status: Ordered docusate sodium 100 mg oral capsule = 100 mg, By Mouth, 2 times a day, PRN Constipation., # 60 capsule, 3 Refills, Maintenance, 02/29/20 15:13:00 EST, Capsule, [place], [place] - [id number], Partial fill upon patient request if the [...] Maintenance,05/28/20 13:46:00 EST, Route to Pharmacy Electronically, [place], [place] - [id number], Partial fill upon patient request if the presc... Start Date: 05/28/20 Status: Ordered Glucerna (Vanilla Flavor) Glucerna (Vanilla Flavor), See Instructions, # 60 each, Refills 11, Tot. Refills 11, Maintenance, Drink 1 can BID. 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 Fax to Anna ( [facility], #[phone]), 06/06/20 19... Start Date: 06/06/20 Status: Ordered [...] Dx: CHF I50.9. Please fax to [facility] , 04/02/20 16:54:00 EST, Supply Start Date: 04/02/20 Status: Ordered Humalog Kwik Pen 100 units/mL subcutaneous injection See Instructions, 3 Units for bood sugar above 120 mg/dl and then add 2 Units for every 50 mg/dl rise above 120. Three times a day before meals., # 15 mL, 1 Refills, Maintenance, 04/16/20 11:07:00 EST, [place], [place] - [id number],... Start Date: 04/16/20 Status: Ordered lactulose 10 gm/15 ml oral syrup 30 mL, By Mouth, 2 times a day, # 581 mL, 0 Refills, Acute, 03/25/20 11:49:00 EST, [facility], TAKE 30 ML BY MOUTH 2 [...] Replace Required Details, Route to Pharmacy Electronically, [facility], [facility] [id number], 168, cm, 04/16/20... Start Date: 05/01/20 Status: [...] 1 Refills, Maintenance, 05/26/20 13:28:00 EST, Tablet, [facility], [place] - [id number], 1 tablet By Mouth Daily, 168, cm, [...] 0 Refills, Maintenance, 04/16/20 11:08:00 EST, Gum, [facility], [facility] [id number], Partial fill upon patient request if the [...] 5 Refills, Maintenance, 03/05/20 16:50:00 EST, Tablet, [place], [place] - [id number], this is an increased, 1 tablet By [...] 1 Refills, Maintenance, 04/16/20 11:09:00 EST, Tablet, [place], [place] - [id number], Partial fill upon patient request if the prescription is for a schedule II opioid drug., 168, cm, 01... Start Date: 04/16/20 Stop Date: 04/11/21 Status: Ordered Zenpep 10,000 units-32,000 units-42,000 units oral delayed release capsule 1 capsule, By Mouth, 3 times a day, # 90 capsule, 0 Refills, Maintenance, 04/16/20 11:09:00 EST, [facility] - [place], [place] - [id number], 1 capsule By Mouth 3 times a [...] Active H/O tubal ligation(Confirmed) Active BHN/BH CP Betting Clerks/Janet Pandey [phone](Confirmed) Active History of cholecystectomy(Confirmed) Active Hypertension(Confirmed) Active [...]
--- OUTSIDE RECORDS SUMMARY | 2023-02-09 22:36 | XMS_ITS | Continuity of Care Document ---
Author Name Unknown Organization [facility] Address [address] [place] [address]- Care Team Providers Care Smt Technician Name Role Phone Jaki Bishop MD Primary Care Physician [phone] Encounter [facility] Date(s): 04/19/22 - 05/19/[address] [address]- Allergies, Adverse Reactions, Alerts Substance Reaction Severity [...] to COVID vaccine 2Admin Note: VIS GIVEN [id number] 3Admin Note: VIS GIVEN 2008- 4Admin Note: [...] 04/29/22 14:29:00 EST, Route to Pharmacy Electronically, [facility] [id number], Partial fill upon patient request if the prescr... Start Date: 04/29/22 Stop Date: 08/27/22 Status: Ordered cloNIDine 0.1 mg oral tablet 0.1 mg, 1, tablet, By Mouth, Daily, # 30 tablet, Refills 3, Tot. Refills 3, Maintenance, 04/29/22 14:29:00 EST, Route to Pharmacy Electronically, [facility] [id number], Partial fill upon patient request if the prescription is... Start Date: 04/29/22 Stop Date: 08/27/22 Status: Ordered Coreg 6.25 mg oral tablet 6.25 mg, 1, tablet, By Mouth, 2 times a day, # 60 tablet, Refills 3, Tot. Refills 3, Maintenance, 04/29/22 14:29:00 EST, Route to Pharmacy Electronically, [facility] [id number], Partial fill upon patient request if the prescri... Start Date: 04/29/22 Stop Date: 08/27/22 Status: Ordered Creon 12,000 units oral delayed release capsule 1 capsule, By Mouth, 3 times a day, # 90 capsule, 3 Refills, Maintenance, 04/29/22 14:37:00 EST, ECCapsule, [facility] [id number], Partial fill upon patient request if the prescription is for a schedule II opioid drug., 167,... Start Date: 04/29/22 Status: Ordered diphenhydrAMINE 25 mg oral tablet 1 tablet = 25 mg, By Mouth, 3 times a day, for 30 days, PRN Agitation, # 90 tablet, 1 Refills, Acute 06/28/22 15:55:00 EDT, 04/29/22 15:55:00 EST, Tablet, [facility] [id number], Partial fill upon patient request if the prescri... Start Date: 04/29/22 Stop Date: 06/28/22 Status: Ordered divalproex sodium 500 mg oral enteric coated tablet 1 tablet = 500 mg, By Mouth, 2 times a day, # 60 tablet, 3 Refills, Maintenance, 04/29/22 14:33:00 EST, Tablet, [facility] [id number], Partial fill upon patient request if the prescription is for a schedule II opioid drug., 16... Start Date: 04/29/22 Stop Date: 08/27/22 Status: Ordered folic acid 1 mg oral tablet 1 mg, 1, tablet, By Mouth, Daily, # 30 tablet, Refills 1, Tot. Refills 1, Maintenance, 04/29/22 14:34:00 EST, Route to Pharmacy Electronically, [facility] [id number], Partialfill upon patient request if the prescription is fo... Start Date: 04/29/22 Status: Ordered Freestyle Lite Lancets See Instructions, [...] 0 Refills, Maintenance, 04/08/22 16:16:00 EST, Liquid, [facility] [place], [place] - [id number], Partial fill upon patient request if the prescription is for a schedule II opioid... Start Date: 04/08/22 Status: Ordered Insulin Lispro KwikPen 100 units/mL injectable solution See Instructions, INJECT SUBCUTANEOUSLY 3 (THREE) TIMES A DAY BEFORE MEALS VIA sliding scale (150-199 2u; 200-249 4u; 250-299 6u; 300-349 8u; 350-399 10u; >400 call [facility]NA), # 10 mL, 2 Refills, Maintenance, 04/08/22 16:17:00 EST, Injection, [facility]... Start Date: 04/08/22 Status: Ordered lactulose 10 gm/15 ml oral syrup See Instructions, TAKE 30mls BY MOUTH two (2) times a day, # 1,200 mL, 1 Refills, Maintenance, 04/29/22 14:34:00 EST, [facility], 20, TAKE 30mls BY MOUTH two (2) times a day, 167, cm, 03/25/22 3:14:00 EST, Height, 113, kg, 03/21/22 0:03:00 EST, D... Start Date: 04/29/22 Status: Ordered Lantus Solostar Pen 100 units/mL subcutaneous solution = 6 units, Subcutaneous Injection, Daily in AM, # 10 mL, 2 Refills, Maintenance, 04/29/22 14:34:00 EST, Solution, [facility] [id number], Partial fill upon patient request if the prescription is for a schedule II opioid drug.,... Start Date: 04/29/22 Status: Ordered multivitamin Multiple Vitamins oral tablet 1 tablet, By Mouth, Daily, # 90 tablet, 1 Refills, Maintenance, 04/02/22 16:44:00 EST, Tablet, [facility] [id number], Partial fill upon patient request if the [...] Daily, # 30 tablet, 0 Refills, Maintenance, 04/29/22 14:37:00 EST, EC Tablet, 167, cm, 03/25/22 3:14:00 EST, Height, 113, kg, 03/21/22 0:03:00 EST, Dry Weight Start Date: 04/29/22 Status: Ordered risperiDONE 2 mg oral tablet 2 mg, 1, tablet, By Mouth, Daily in AM, # 30 tablet, Refills 3, Tot. Refills 3, Maintenance, 04/29/22 14:39:00 EST, Route to Pharmacy Electronically, [facility] [id number], Partial fill upon patient request if the prescription... Start Date: 04/29/22 Stop Date: 08/27/22 Status: Ordered risperiDONE 3 mg oral tablet 3 mg, 1, tablet, By Mouth, Daily at bedtime, # 30 tablet, Refills 3, Tot. Refills 3, Maintenance, 04/29/22 14:39:00 EST, Route to Pharmacy Electronically, [facility] [id number], Partial fill upon patient request if the prescri... Start Date: 04/29/22 Status: Ordered thiamine 100 mg oral tablet 100 mg, 1, tablet, By Mouth, Daily, for 30 days, # 30 tablet, Refills 3, Tot. Refills 3, Acute 08/27/22 14:40:00 EDT, 04/29/22 14:40:00 EST, Route to Pharmacy Electronically, [place], [place] - [id number], Partial fill upon patient re... Start Date: 04/29/22 Stop Date: 08/27/22 Status: Ordered tiotropium 2.5 mcg/inh inhalation aerosol 2 puffs, Inhalation, Daily, # 1 each, 0 Refills, Maintenance, 03/25/22 12:09:00 EST, Inhaler, [facility], Partial fill upon patient request if the prescription is for a schedule II opioid drug., 167, cm, 03/25/22 3:14:00 EST, Height, 113... Start Date: 03/25/22 Stop Date: 04/24/22 Status: Ordered Problem List Condition Confirmation Course [...] Care Team Personnel Name: Lawrence Hendrix Position: [facility] RN Supv Member Role: Primary Care Nurse Name: Rufino Lloyd RN Position: [facility] RN Member Role: Primary Care Nurse Name: Cristina Carpenter RN Position: [facility] RN Member Role: Primary Care Nurse Name: Rosette Noriega RN Position: [facility] SN RN Member Role: Primary Care Nurse Name: Mary Hidalgo RN Position: [facility] PCO RN Member Role: Primary Care Nurse Name: Sissy Duran RN Position: [facility] AMB Nurse Member Role: Primary Care Nurse Name: Rohit Zavaleta RN Position: [facility] RN Member Role: Primary Care Nurse Name: Erlinda Hartman NP Position: [facility] Associate Professional Member Role: Primary Care Nurse Address: Address: [address] [place] [address] Name: Jong Suazo RN Position: [facility] RN Supv Member Role: Primary Care Nurse Name: Shante Solis RN Position: [facility] RN Member Role: Primary Care Nurse Name: Joshua Prakash RN Position: [facility] RN Member Role: Primary Care Nurse Name: Bettie Vanegas RN Position: [facility] RN Member Role: Primary Care Nurse Name: Jay Marroquin RN Position: [facility] RN Member Role: Primary Care Nurse Name: Adrianna Church RN Position: [facility] RN Member Role: Primary Care Nurse Name: Sue Purdy RN Position: [facility] RN Member Role: Primary Care Nurse Name: Hector Perez RN Position: [facility] RN Member Role: Primary Care Nurse Name: Aleena Vizcaino RN Position: [facility] RN Member Role: Primary Care Nurse Name: Kacey Wilhelm RN Position: [facility] RN Member Role: Primary Care Nurse Name: Monalisa Barker LPN Position: [facility] AMB Nurse Member Role: Primary Care Nurse Name: Leslie Malloy RN Position: [facility] RN Member Role: Primary Care Nurse Name: Yesenia Hu LPN Position: [facility] RN Member Role: Primary Care Nurse Name: Joaquina Herrera RN Position: [facility] RN Member Role: Primary Care Nurse Name: Diego Bell RN Position: [facility] RN Member Role: Primary Care Nurse Name: Ese Grey Position: [facility] RN Member Role: Primary Care Nurse Name: Chela Najera RN Position: [facility] RN Member Role: Primary Care Nurse Name: Tootie Gonzalez RN Position: [facility] RN Member Role: Primary Care Nurse Name: Nancy Monte RN Position: [facility] RN Member Role: Primary Care Nurse Name: Marilee Starkey Position: [facility] RN Member Role: Primary Care Nurse Name: Silvina Dodd RN Position: [facility] RN Member Role: Primary Care Nurse Name: Flaco Clifford DO Position: [facility] Renal MD Member Role: Lifetime Consulting Physician Address: Address: [address] [place] [address] [facility] [place], [place] [address] Name: Marilee Richardson RN Position: [facility] RN Member Role: Primary Care Nurse Name: Rufino Johnson RN Position: [facility] RN Member Role: Primary Care Nurse Name: Jovita Camargo RN Position: [facility] RN Member Role: Primary Care Nurse Name: Ju Zhu Position: [facility] RN Member Role: Primary Care Nurse Name: Ester Palomares Position: [facility] RN Member Role: Primary Care Nurse Name: Emma Colbert RN Position: [facility] RN Supv Member Role: Primary Care Nurse Name: Hallie Gambino RN Position: [facility] Onco RN Member Role: Primary Care Nurse Name: Maya Ambriz RN Position: [facility] RN Member Role: Primary Care Nurse Name: Bhavna Rendon LPN Position: [facility] RN Member Role: Primary Care Nurse Name: Luis Burton RN Position: [facility] RN Member Role: Primary Care Nurse Name: Jaki Bishop MD Position: [facility] Primary Care Physician Member Role: PCP Address: Address: [address] [place] [id number]- Name: Lucian Kruase RN Position: [facility] RN Member Role: Primary Care Nurse Name: Leslie Ward RN Position: [facility] RN Member Role: Primary Care Nurse Name: Jacki Gomes RN Position: [facility] RN Member Role: Primary Care Nurse Name: Ximena Saab RN Position: [facility] RN Member Role: Primary Care Nurse Name: Ivette Shankar RN Position: [facility] RN Supv Member Role: Primary Care Nurse Name: Laura Mary RN Position: [facility] SN RN Member Role: Primary Care Nurse Name: Octavio Box RN Position: [facility] RN Member Role: Primary Care Nurse Name: Nazia Tapia RN Position: [facility] RN Member Role: Primary Care Nurse Name: Caren Hernandez RN Position: [facility] RN Supv Member Role: Primary Care Nurse Name: Veronica Queen RN Position: [facility] RN Member Role: Primary Care Nurse Name: Perri Bryant RN Position: [facility] RN Member Role: Primary Care Nurse Name: Abla Toro RN Position: [facility] RN Member Role: Primary Care Nurse Name: Nely Wong RN Position: [facility] RN Member Role: Primary Care Nurse Name: Erica Brandon RN Position: [facility] RN Member Role: Primary Care Nurse Name: Adrianna Gonzalez RN Position: [facility] RN Member Role: Primary Care Nurse Name: Annmarie Feldman RN Position: [facility] PCO w/OE and EZ Script Member Role: Primary Care Nurse Name: Chinyere Espinoza RN Position: [facility] RN Member Role: Primary Care Nurse Name: Teresita Diallo RN Position: [facility] RN Member Role: Primary Care Nurse Name: Tennille Mcgarry RN Position: [facility] Hospital Dials Inspector Member Role: Primary Care Nurse Name: Vicky Salazar RN Position: [facility] RN Member Role: Primary Care Nurse Name: Spencer Jameson RN Position: [facility] RN Member Role: Primary Care Nurse Name: Jalen Mullins Position: [facility] RN Member Role: Primary Care Nurse Care Team Related Persons Name: ARIANNA MARYANNE Address: [address] [place] [address] Name: MARYANNE KELLER Address: home [address] [address] Name: MARYANNE KELLER JR Address: home [address] [place] [address] Name: GEORGIA KELLER Address: [place] [address] Name: BALDEV POLANCO Address: [place] [address]
--- OUTSIDE RECORDS SUMMARY | 2023-02-09 22:36 | XMS_ITS | Continuity of Care Document ---
Author Name Unknown Organization [facility] Address [address] [place] [address]- Care Team Providers Care Senior Electronics Engineer Name Role Phone Jaki Bishop MD Primary Care Physician Encounter [facility] Date(s): 12/10/20 - 02/20/21 [facility] [address] [place] [address]- Attending Physician: Jonathan Caraballo MD Admitting Physician: Jonathan Caraballo MD Allergies, Adverse Reactions, Alerts Substance Reaction [...] to COVID vaccine 2Admin Note: VIS GIVEN [id number] 3Admin Note: VIS GIVEN 2008- 4Admin Note: [...] 02/06/21 19:54:00 EST, Route to Pharmacy Electronically, [facility] [id number], Partial fill upon patient request if the [...] mL, 5 Refills, Maintenance, 02/06/21 19:54:00 EST, [facility] [id number], Partial fill upon patient request if the prescription is for a schedule II opioid d... Start Date: 02/06/21 Stop Date: 08/05/21 Status: Ordered loratadine 10 mg oral tablet 10 mg, 1, tablet, By Mouth, Daily, # 30 tablet, Refills 0, Tot. Refills 0, Maintenance, 11/28/20 9:25:00 EDT, Route to Pharmacy Electronically, [facility], Partial fill upon patient request [...] a day, # 60 tablet, 0 Refills, [facility], 167.64, cm, 11/27/20 22:30:00 EDT, Height, 98.5, kg, 10/22/20 17:50:00 EDT, Dry Weight Start Date: 01/08/21 Status: Ordered Nicoderm C-Q Clear 14 mg/24 hr transdermal film, extended release 1 patch, Topically, Daily, for 30 days, # 30 patch, 0 Refills, Acute 03/18/21 13:06:00 EST, 02/16/21 13:06:00 EST, Patch, [facility], Partial fill upon patient request if the prescription is for a schedule II opioid drug., 166.6, cm, ... Start Date: 02/16/21 Stop Date: 03/18/21 Status: Ordered Nicotine 2 mg gum = 2 mg, Chew, Every 2 hours, PRN Other, for 6 week(s), Nicotine Cravings, # 40 each, 1 Refills, Acute 05/11/21 13:06:00 EST, 02/16/21 13:06:00 EST, Gum, [facility], Partial fill upon patient request [...] 0 Refills, Maintenance,02/06/21 19:56:00 EST, CR Capsule, [place], [place] - [id number], Partial fill upon patient request if the [...] 0 Refills, Maintenance, 11/28/20 9:27:00 EDT, Nasal [place], [facility] 3, Partial fill upon patient [...] 5 Refills, Maintenance, 02/06/21 19:56:00 EST, Tablet, [place], [place] - [id number], Partial fill upon patient request if the [...] Active H/O tubal ligation(Confirmed) Active [facility] CP [phone](Confirmed) Active History of cholecystectomy(Confirmed) Active Hypertension(Confirmed) Active [...]
--- OUTSIDE RECORDS SUMMARY | 2023-02-09 22:36 | XMS_ITS | Continuity of Care Document ---
Author Name Unknown Organization [facility] ter Address [address] [place] [id number]- Care Team Providers Care Document Management Analyst Name Role Phone Dario HAYDEN, Jaki Primary Care Physician Encounter [facility] Date(s): 03/02/22 - 03/03/[address] [address]- Discharge Disposition: A-D/C Home Attending Physician: Hellen Murguia MD Admitting Physician: Hellen Murguia MD Referring Physician: Not on Staff, Referring [...] to COVID vaccine 2Admin Note: VIS GIVEN [id number] 3Admin Note: VIS GIVEN 2008- 4Admin Note: [...] 02/02/22 9:36:00 EST, Route to Pharmacy Electronically, [facility] [id number], Partial fill upon patient request if the prescri... Start Date: 02/02/22 Status: Ordered cloNIDine 0.1 mg oral tablet 0.05 mg, 0.5, tablet, By Mouth, Daily, # 15 tablet, Refills 0, Tot. Refills 0, Maintenance, 02/02/22 9:36:00 EST, Route to Pharmacy Electronically, [facility] [id number], Partial fill upon patient request if the prescription i... Start Date: 02/02/22 Status: Ordered Coreg 6.25 mg oral tablet 6.25 mg, 1, tablet, By Mouth, 2 times a day, # 60 tablet, Refills 0, Tot. Refills 0, Maintenance, 02/02/22 9:36:00 EST, Route to Pharmacy Electronically, [facility] [id number], Partial fill upon patient request if the prescrip... Start Date: 02/02/22 Status: Ordered Creon 12,000 units oral delayed release capsule 1 capsule, By Mouth, 3 times a day, # 90 capsule, 0 Refills, Maintenance, 02/02/22 9:39:00 EST, EC Capsule, [facility] [id number], Partial fill upon patient request if the prescription is for a schedule II opioid drug., 167, c... Start Date: 02/02/22 Status: Ordered divalproex sodium 500 mg oral enteric coated tablet 1 tablet = 500 mg, By Mouth, 2 times a day, # 60 tablet, 0 Refills, Maintenance, 02/02/22 9:36:00 EST, Tablet, [facility] [id number], Partial fill upon patient request if theprescription is for a schedule II opioid drug., 167... Start Date: 02/02/22 Status: Ordered folic acid 1 mg oral tablet 1 mg, 1, tablet, By Mouth, Daily, # 30 tablet, Refills 1, Tot. Refills 1, Maintenance, 02/02/22 9:36:00 EST, Route to Pharmacy Electronically, [facility] [id number], Partial fill upon patient request if the [...] 19:16:00 E... Start Date: 02/18/22 Status: Ordered losartan 50 mg oral tablet 50 mg, 1, tablet, By Mouth, Daily, # 30 tablet, Refills 0, Tot. Refills 0, Maintenance, 02/02/22 9:37:00 EST, Route to Pharmacy Electronically, [facility] [id number], Partialfill upon patient request if the prescription is fo... Start Date: 02/02/22 Status: Ordered melatonin 3 mg oral tablet 1 tablet = 3 mg, By Mouth, Daily at bedtime, PRN Insomnia, # 30 tablet, 0 Refills, Maintenance, 02/02/22 9:37:00 EST, Tablet, [facility] [id number], Partial fill upon patientrequest if the prescription [...] 02/02/22 9:39:00 EST, Route to Pharmacy Electronically, [place], [place] - [id number],Partial fill upon patient request if the prescripti... Start Date: 02/02/22 Status: Ordered torsemide 20 mg oral tablet 1 tablet = 20 mg, By Mouth, 2 times a day, # 60 tablet, 0 Refills, Maintenance, 02/02/22 9:40:00 EST, Tablet, [place], [place] - [id number], Partial fill upon patient request if the [...] Confirmed Active Tobacco use Confirmed Active Results Radiology Reports * Exam Date Time Procedure Performing Provider Status 03/03/22 10:[address] Maxilloface W/ Contrast Nicol Parra; Auth (Verified) Notes: (CT Maxilloface W/ Contrast) Reason For Exam: Mastoiditis RESULT: CT Maxilloface W/ Contrast CT Maxilloface W/ Contrast Hx of Present Illness: right ear pain for 2 weeks, sent in by pcp office, supposed to use O2 at baseline but pt chooses to smoke instead; Reason: Mastoiditis; Clinical Question(s): Mastoiditis; OrderComment: IMAGING TECHNIQUE: Multidetector spiral CT without contrast, formatted in 3 planes. Automatic tube modulation and/or iterative dose reconstruction were used optimize scan parameters. COMPARISON: None FINDINGS: Periorbital soft tissues: No swelling. Orbital soft tissues: Normal. No hemorrhage or ocular injury. Intracranial soft tissues: No gross abnormality. Frontal bones: No fracture. Orbital munoz: No fracture. Nasal bones: No fracture. Frontal processes of maxilla: No fracture. Nasal Septum: No fracture. Anterior nasal spine: Intact. Maxillary bones: No fracture. Alveolus: No dentition Zygomatic arches: No fracture. No overlying soft tissue swelling. Pterygoid plates: Intact bilaterally. Mandible: The portions included on the exam are normal. No fracture or dislocation. Paranasal sinuses: Mucosal thickening is present in the bilateral maxillary sinuses. There is also mild mucosal thickening present of a few ethmoid air cells. No air-fluid levels. Mastoids: There is no coalescence. Partial opacification of right mastoid air cells -- series 201 image 173, coronal series 204 image 149. There is an abscess which measures 3.2 x 1.9 x 3.2 cm and is extending towards the attachment site of the posterior belly of the digastric/infratemporal fossa. Upper cervical spine: Only partly included but no abnormalities are detected. There is carotid vascular atherosclerosis. IMPRESSION: Findings of right otomastoiditis with complication of abscess formation. The abscess measures up to 3.2 cm. Partial opacification of right inferior mastoid air cells. Minimal mucosal thickening in the paranasal sinuses. No air-fluid levels. Findings were communicated to Dr. Hellen Murguia MD at 1155 on day of exam. WSN: [id number] Ordering Physician: Hellen Murguia Dictated By: Azalia Robledo MD Dictated Date/Time: 03/03/22 12:25 p Reviewed By: Azalia Robledo MD Signed By: Azalia Robledo MD Signed Date/Time: 03/03/22 12:25 pm Transcribed By: YAIR Transcribed Date/Time: 03/03/22 11:54 am Vital Signs Most recent to oldest [Reference Range]: 1 2 3 Oxygen Saturation [94-100 %] 92 % *L* (03/03/22 7:09 AM) 90 % *L* (03/03/22 1:20 AM) 90 % *L* (03/02/22 11:04 PM) Pulse Rate [55-90 bpm] 59 bpm (03/03/22 7:09 AM) 94 bpm *H* (03/03/22 1:20 AM) 97 bpm *H* (03/02/22 11:04 PM) Blood Pressure [90-138/55-84 mm Hg] 151/92mm Hg *H* (03/03/22 7:09 AM) 125/87mm Hg (03/03/22 1:20 AM) 150/84mm Hg *H* (03/02/22 11:04 PM) Respiratory Rate [16-30 br/min] 18 br/min (03/02/22 5:56 PM) 18 br/min (03/02/22 3:38 PM) 18 br/min (03/02/22 8:47 AM) Temperature [96.8-100.4 DegF] 98.6 DegF (03/03/22 7:09 AM) 98.6 DegF (03/02/22 11:04 PM) 98.8 DegF (03/02/22 8:30 PM) Liters per Minute 2 L/min (03/03/22 1:20 AM) 2 L/min (03/02/22 1:21 PM) 2 L/min (03/02/22 11:17 AM) Mode of Delivery (Oxygen) Room air (03/03/22 7:09 AM) Nasal cannula (03/03/22 1:20 AM) Room air (03/02/22 11:04 PM) Blood pressure sites Arm, right (03/03/22 7:09 AM) Arm, right (03/03/22 1:20 AM) Arm, left (03/02/22 11:04 PM) Temperature Route Oral (03/03/22 7:09 AM) Oral (03/02/22 11:04 PM) Oral (03/02/22 8:30 PM) Social History Social History Type Response Smoking Status 5-9 cigarettes (betw een 1/4 to 1/2 pack)/day in last 30 days; Interested in cessation: No; Patient wants NRT during admission Yes; Type: Cigarettes entered on: 06/29/[address] Maxillofacial region W contrast IV * [facility] , [facility]IS S: TRANSCRIBE Azalia Robledo MD: VERIFY Event Display: Result: Authored Date: CT Maxilloface W/ Contrast Hx of Present Illness: right ear pain for 2 weeks, sent in by pcp office, supposed to use O2 at baseline but pt chooses to smoke instead; Reason: Mastoiditis; Clinical Question(s): Mastoiditis; OrderComment: IMAGING TECHNIQUE: Multidetector spiral CT without contrast, formatted in 3 planes. Automatic tube modulation and/or iterative dose reconstruction were used optimize scan parameters. COMPARISON: None FINDINGS: Periorbital soft tissues: No swelling. Orbital soft tissues: Normal. No hemorrhage or ocular injury. Intracranial soft tissues: No gross abnormality. Frontal bones: No fracture. Orbital munoz: No fracture. Nasal bones: No fracture. Frontal processes of maxilla: No fracture. Nasal Septum: No fracture. Anterior nasal spine: Intact. Maxillary bones: No fracture. Alveolus: No dentition Zygomatic arches: No fracture. No overlying soft tissue swelling. Pterygoid plates: Intact bilaterally. Mandible: The portions included on the exam are normal. No fracture or dislocation. Paranasal sinuses: Mucosal thickening is present in the bilateral maxillary sinuses. There is also mild mucosal thickening present of a few ethmoid air cells. No air-fluid levels. Mastoids: There is no coalescence. Partial opacification of right mastoid air cells -- series 201 image 173, coronal series 204 image 149. There is an abscess which measures 3.2 x 1.9 x 3.2 cm and is extending towards the attachment site of the posterior belly of the digastric/infratemporal fossa. Upper cervical spine: Only partly included but no abnormalities are detected. There is carotid vascular atherosclerosis. IMPRESSION: Findings of right otomastoiditis with complication of abscess formation. The abscess measures up to 3.2 cm. Partial opacification of right inferior mastoid air cells. Minimal mucosal thickening in the paranasal sinuses. No air-fluid levels. Findings were communicated to Dr. Hellen Murguia MD at 1155 on day of exam. WSN: [id number] Ordering Physician: Hellen Murguia Dictated By: Azalia Robledo MD Dictated Date/Time: 03/03/22 12:25 p Reviewed By: Azalia Robledo MD Signed By: Azalia Robledo MD Signed Date/Time: 03/03/22 12:25 pm Transcribed By: YAIR Transcribed Date/Time: 03/03/22 11:54 am Patient Care team information Care Team Personnel Name: Daniel Gamino RN Position: [facility] RN Member Role: Primary Care Nurse Name: Lawrence Hendrix Position: [facility] RN Supv Member Role: Primary Care Nurse Name: Rufino Lloyd RN Position: [facility] RN Member Role: Primary Care Nurse Name: Cristina Carpenter RN Position: [facility] RN Member Role: Primary Care Nurse Name: Rosette Noriega RN Position: [facility] SN RN Member Role: Primary Care Nurse Name: Mary Hiadlgo RN Position: [facility] PCO RN Member Role: Primary Care Nurse Name: Sissy Duran RN Position: [facility] AMB Nurse Member Role: Primary Care Nurse Name: Rohit Zavaleta RN Position: [facility] RN Member Role: Primary Care Nurse Name: Erlinda Hartman NP Position: [facility] Associate Professional Member Role: Primary Care Nurse Address: Address: [address] [place] [address] Name: Jong Suazo RN Position: [facility] RN Supv Member Role: Primary Care Nurse Name: Shante Solis RN Position: [facility] RN Member Role: Primary Care Nurse Name: Bettie Vanegas RN Position: [facility] RN Member Role: Primary Care Nurse Name: Jay Marroquin RN Position: [facility] RN Member Role: Primary Care Nurse Name: Sue Purdy RN Position: [facility] RN Member Role: Primary Care Nurse Name: Hector Perez RN Position: [facility] RN Member Role: Primary Care Nurse Name: Aleena Vizcaino RN Position: [facility] RN Member Role: Primary Care Nurse Name: Kacey Wilhelm RN Position: [facility] RN Member Role: Primary Care Nurse Name: Monalisa Barker Position: [facility] RN Member Role: Primary Care Nurse Name: Leslie Malloy RN Position: [facility] RN Member Role: Primary Care Nurse Name: Joaquina Herrera RN Position: [facility] RN Member Role: Primary Care Nurse Name: Diego Bell RN Position: [facility] RN Member Role: Primary Care Nurse Name: Ese Grey Position: [facility] RN Member Role: Primary Care Nurse Name: Chela Najera RN Position: [facility] RN Member Role: Primary Care Nurse Name: oTotie Gonzalez RN Position: [facility] RN Member Role: Primary Care Nurse Name: Nancy Monte RN Position: [facility] RN Member Role: Primary Care Nurse Name: Marilee Starkey Position: [facility] RN Member Role: Primary Care Nurse Name: Silvina Dodd RN Position: [facility] RN Member Role: Primary Care Nurse Name: Flaco Clifford DO Position: [facility] Renal MD Member Role: Lifetime Consulting Physician Address: Address: [address] [place], [place] [address] [place] [address]- Name: Marilee Richardson RN Position: [facility] RN Member Role: Primary Care Nurse Name: Rufino Johnson RN Position: [facility] RN Member Role: Primary Care Nurse Name: Jovita Camargo RN Position: [facility] RN Member Role: Primary Care Nurse Name: Ju Zhu Position: [facility] RN Member Role: Primary Care Nurse Name: Ester Palomares Position: [facility] RN Member Role: Primary Care Nurse Name: Emma Colbert RN Position: [facility] RN Supv Member Role: Primary Care Nurse Name: Hallie Gambino RN Position: [facility] Onco RN Member Role: Primary Care Nurse Name: Maya Ambriz RN Position: [facility] RN Member Role: Primary Care Nurse Name: Luis Burton RN Position: [facility] RN Member Role: Primary Care Nurse Name: Jaki Bishop MD Position: [facility] Primary Care Physician Member Role: PCP Address: Address: [address] [place] [address]- Name: Leslie Ward RN Position: [facility] RN Member Role: Primary Care Nurse Name: Jacki Gomes RN Position: [facility] RN Member Role: Primary Care Nurse Name: Ximena Saab RN Position: [facility] RN Member Role: Primary Care Nurse Name: Ivette Shankar RN Position: [facility] RN Supv Member Role: Primary Care Nurse Name: Laura Mary RN Position: [facility] SN RN Member Role: Primary Care Nurse Name: Octavio Box RN Position: [facility] RN Member Role: Primary Care Nurse Name: Caren Hernandez RN Position: [facility] RN Supv Member Role: Primary Care Nurse Name: Kinza De La Cruz RN Position: [facility] RN Member Role: Primary Care Nurse Name: Veronica Queen RN Position: [facility] RN Member Role: Primary Care Nurse Name: Nely Wong RN Position: [facility] RN Member Role: Primary Care Nurse Name: Erica Brandon RN Position: [facility] RN Member Role: Primary Care Nurse Name: Adrianna Gonzalez RN Position: [facility] RN Member Role: Primary Care Nurse Name: Annmarie Feldman RN Position: [facility] PCO w/OE and EZ Script Member Role: Primary Care Nurse Name: Chinyere Espinoza RN Position: [facility] RN Member Role: Primary Care Nurse Name: Teresita Diallo RN Position: [facility] RN Member Role: Primary Care Nurse Name: Tennille Mcgarry RN Position: [facility] Hospital Explosive Technician Member Role: Primary Care Nurse Name: Vicky Salazar RN Position: [facility] RN Member Role: Primary Care Nurse Name: Jalen Mullins Position: [facility] RN Member Role: Primary Care Nurse Name: Chela Rod RN Position: [facility] ED RN W/OE and Tasks Member Role: Patient Care Provider Care Team Related Persons Name: MARYANNE KELLER Address: [address] [place] [address] Name: MARYANNE KELLER Address: home [address] [address] Name: GEORGIA KELLER Address: [place] [address] Name: BALDEV POLANCO Address: [place] [address]
--- OUTSIDE RECORDS SUMMARY | 2023-02-09 22:36 | XMS_ITS | Continuity of Care Document ---
Author Name Unknown Organization [facility] Address [address] [place] [address]- Care Team Providers Care Melt House Drag Operator Name Role Phone Jaki Bishop MD Primary Care Physician Encounter [facility] Date(s): 01/06/23 - 02/05/[address] [id number] Allergies, Adverse Reactions, Alerts Substance Reaction Severity Status predniSONE Dizzinesses 02-JAN-2016 21:52:27<$> Active Zyprexa Hypertension Active NSAIDs 1 Active 1lsited due to pt's liver disease Immunizations Given and Recorded Vaccine Date Status Refusal Reason influenza virus vaccine, inactivated 01/14/23 Give n influenza virus vaccine, inactivated 01/25/22 Give n [...] Given tetanus-diphtheria toxoids (Td) 5 10/11/08 Given 1Result Comment: Patient verbally consented to COVID vaccine 2Admin Note: VIS GIVEN [id number] 3Admin Note: VIS GIVEN 2008-12 4Admin Note: vis 5Admin Note: vis 02/06/08 Medications albuterol 90 mcg/inh inhalation powder 2 puffs, Inhalation, Every 4 hours, PRN as needed, PRN Wheezing, # 1 each, 1 Refills, Maintenance, 06/28/22 14:49:00 EDT, Powder, [facility] [id number], Partial fill upon patient request if the prescription is for a schedule I... Start Date: 06/28/22 Status: Ordered Alcohol Wipes See Instructions, # 100 each, Maintenance, Use when checking blood glucose levels TID. Diagnosis: Type II DM, ICD10 E11.9, 12/09/22 19:15:00 EDT, Compound, 165.09, cm, 10/18/22 11:23:00 EDT, Height, 83.7, kg, 10/05/22 21:20:00 EDT, Dry Weight Start Date: 12/09/22 Status: Ordered amLODIPine 5 mg oral tablet 5 mg, 1, tablet, By Mouth, Daily, # 30 tablet, Refills 5, Tot. Refills 5, Maintenance, 01/12/23 12:33:00 EDT, Route to Pharmacy Electronically, [facility] [id number], Partialfill upon patient request if the prescription is fo... Start Date: 01/12/23 Status: Ordered benztropine 1 mg oral tablet 0.5 mg, 0.5, tablet, By Mouth, 2 times a day, # 30 tablet, Refills 3, Tot. Refills 3, Maintenance, 01/14/23 11:23:00 EDT, Route to Pharmacy Electronically, [facility] [id number], Partial fill upon patient request if the prescr... Start Date: 01/14/23 Stop Date: 05/14/23 Status: Ordered Cane See Instructions, # 1 each, Maintenance, use at walking, 10/18/22 11:44:00 EDT, Supply Start Date: 10/18/22 Status: Ordered carvedilol 3.125 mg oral tablet 3.125 mg, 1, tablet, By Mouth, 2 times a day, # 60 tablet, Refills 5, Tot. Refills 5, Maintenance, 02/03/23 10:35:00 EST, Route to Pharmacy Electronically, [facility] [id number], Partial fill upon patient request if the prescr... Start Date: 02/03/23 Status: Ordered cloNIDine 0.1 mg oral tablet 0.1 mg, 1, tablet, By Mouth, Daily at bedtime, # 30 tablet, Refills 2, Tot. Refills 2, Maintenance,12/09/22 19:15:00 EDT, Route to Pharmacy Electronically, [facility] [id number], Partial fill upon patient request if the presc... Start Date: 12/09/22 Status: Ordered Creon 12,000 units oral delayed release capsule 1 capsule, By Mouth, 3 times a day, # 90 capsule, 3 Refills, Maintenance, 02/04/23 18:07:00 EST, ECCapsule, [facility] [id number], Partial fill upon patient request if the prescription is for a schedule II opioid drug., 165.0... Start Date: 02/04/23 Status: Ordered Docusate/Senna Tablet 1 tablet, By Mouth, 2 times a day, PRN Constipation, 0 Refills, Maintenance, 10/05/22 11:37:00 EDT,Tablet, Partial fill upon patient request if the prescription is for a schedule II opioid drug. Start Date: 10/05/22 Status: Ordered folic acid 1 mg oral tablet 1, tablet, By Mouth, Daily, # 30 tablet, Refills 1, Tot. Refills 1, Maintenance, 09/17/22 1:48:00 EDT, Route to Pharmacy Electronically, [facility] [id number], 160, cm, 07/26/22 12:51:00 EDT, Height, 89.2, [...] TID. Diagnosis: Type II DM, ICD10 E11.9, 01/14/23 11:22:00 EDT, Compound, 165.09, cm, 01/14/23 11:08:00 EDT, Height, 83.7, kg, 10/05/22 21:20:00... Start Date: 01/14/23 Stop Date: 07/13/23 Status: Ordered Freestyle Lite Test Strips See [...] tablet, Refills 1, Tot. Refills 1, Maintenance, 01/14/23 12:21:00 EDT, Route to Pharmacy Electronically, [facility] [id number], Partial fill upon patient request if the prescription is f... Start Date: 01/14/23 Stop Date: 03/15/23 Status: Ordered haloperidol 2 mg oral tablet 2 mg, 1, tablet, By Mouth, 3 times a day, # 90 tablet, Refills 0, Tot. Refills 0, Maintenance, 01/14/23 11:19:00 EDT, Route to Pharmacy Electronically, [facility] [id number],Partial fill upon patient request if the prescripti... Start Date: 01/14/23 Stop Date: 02/13/23 Status: Ordered insulin lispro 100 u/ml subcutaneous injection 2-10 units, Subcutaneous Injection, 3 times a day before meals, 0 Refills, Maintenance, 10/05/22 11:37:00 EDT, Injection, Partial fill upon patient request if the prescription is for a schedule II opioid drug. Start Date: 10/05/22 Status: Ordered lactulose 10 gm/15 ml oral syrup 30 mL, By Mouth, 2 times a day, # 1,200 mL, 5 Refills, Maintenance, 12/09/22 19:15:00 EDT, [facility] [id number], 15, 30 mL By Mouth 2 times a day, 165.09, cm, 10/18/22 11:23:00 EDT, Height, 83.7, kg, 10/05/22 21:20:00 EDT, Start Date: 12/09/22 Status: Ordered Lantus Solostar Pen 100 units/mL subcutaneous solution = 6 units, Subcutaneous Injection, Daily in AM, # 10 mL, 2 Refills, Maintenance, 12/09/22 19:15:00 EDT, Solution, [facility] [id number], Partial fill upon patient request if the prescription is for a schedule II opioid drug.,... Start Date: 12/09/22 Status: Ordered magnesium oxide 400 mg oral tablet 1 tablet = 400 mg, By Mouth, 2 times a day, for 30 days, # 60 tablet, 1 Refills, Acute 03/15/23 11:20:00 EST, 01/14/23 11:20:00 EDT, Tablet, [facility] [id number], Partial fill upon patient request if the prescription is for a... Start Date: 01/14/23 Stop Date: 03/15/23 Status: Ordered multivitamin Multiple Vitamins oral tablet 1 tablet, By Mouth, Daily, # 90 tablet, 1 Refills, Maintenance, 10/22/22 19:32:00 EDT, Tablet, [facility] [id number], Partial fill upon patient request if the prescription isfor a schedule II opioid drug., 1 tablet By Mouth D... Start Date: 10/22/22 Status: Ordered pantoprazole 40 mg oral delayed release tablet 1 tablet, By Mouth, Daily, # 30 tablet, 2 Refills, Maintenance, 01/12/23 12:33:00 EDT, 165.09, cm, 10/18/22 11:23:00 EDT, Height, 83.7, kg, 10/05/22 21:20:00 EDT, Dry Weight Start Date: 01/12/23 Status: Ordered Pen [place], 31 G x 5 mm BD Ultra Fine III See Instructions, # 100 each, Refills 5, Tot. Refills 5, Maintenance, use as directed for Type 2 Diabetes Mellitus, ICD10 E11.9, 11/11/22 20:10:00 EDT, Supply, 165.09, cm, 10/18/22 11:23:00 EDT, Height, 83.7, kg, 10/05/22 21:20:00 EDT, Dry Weight Start Date: 11/11/22 Stop Date: 05/10/23 Status: Ordered QUEtiapine 100 mg oral tablet 100 mg, 1, tablet, By Mouth, Daily at bedtime, PRN, # 30 tablet, Refills 1, Tot. Refills 1, Maintenance, Insomnia, 01/14/23 11:21:00 EDT, Route to Pharmacy Electronically, [facility] [id number], Partial fill upon patient reque... Start Date: 01/14/23 Stop Date: 03/15/23 Status: Ordered risperiDONE 3 mg oral tablet 3 mg, 1, tablet, By Mouth, 2 times a day, # 60 tablet, Refills 0, Tot. Refills 0, Maintenance, 01/14/23 12:39:00 EDT, Route to Pharmacy Electronically, [facility] [id number],please fill THIS risperidone script instead of the... Start Date: 01/14/23 Stop Date: 02/13/23 Status: Ordered Robitussin DM Liquid 10 mL, By Mouth, Every 4 hours, PRN Cough, 0 Refills, Maintenance, 10/05/22 11:38:00 EDT, Syrup, Partial fill upon patient request if the prescription is for a schedule II opioid drug. Start Date: 10/05/22 Status: Ordered Senna 8.6 mg oral tablet 1 or 2 tablets, By Mouth, Daily at bedtime, PRN, for 30 days, # 60 tablet, Refills 1, Tot. Refills 1, Acute, Constipation, 03/15/23 11:21:00 EST, 01/14/23 11:21:00 EDT, Route to Pharmacy Electronically, [place], [place] - [id number] T... Start Date: 01/14/23 Stop Date: 03/15/23 Status: Ordered shower chair shower chair, See Instructions, # 1 each, Refills 0, Tot. Refills 0, Maintenance, use at showering,10/18/22 11:44:00 EDT, Supply Start Date: 10/18/22 Status: Ordered tiotropium 2.5 mcg/inh inhalation aerosol 2 puffs, Inhalation, Daily, # 1 each, 5 Refills, Maintenance, 09/17/22 1:52:00 EDT, Inhaler, [place], [place] - [id number], Partial fill upon patient request if the prescription is for a schedule II opioid drug., 160, cm, 07/26/22 12:... Start Date: 09/17/22 Stop Date: 03/16/23 Status: Ordered traZODone 50 mg oral tablet 50 mg, 1, tablet, By Mouth, Daily at bedtime, # 30 tablet, Refills 2, Tot. Refills 2, Maintenance, 12/09/22 19:15:00 EDT, Route to Pharmacy Electronically, [place], [place] - [id number], Partial fill upon patient request if the prescr... Start Date: 12/09/22 Stop Date: 03/09/23 Status: Ordered Vitamin B1 100 mg oral tablet See Instructions, TAKE 1 TABLET BY MOUTH ONCE DAILY, # 30 tablet, Refills 0, Maintenance, 02/04/23 18:07:00 EST, Instructions Replace Required Details, Route to Pharmacy Electronically, [facility], 165.09, cm, 01/14/23 11:08:00 EDT, Height, 83.7,... Start Date: 02/04/23 Status: Ordered Walker See Instructions, # 1 each, Maintenance, use at walking, 10/18/22 11:44:00 EDT, Supply Start Date: 10/18/22 Status: Ordered Problem List Condition Confirmation Course Effective Dates Status H ealth Status Informant Weakness Confirmed Active Asthma Confirmed Active Atrophic vaginitis Confirmed Active Biventricular HF (heart failure, EF 20-30%) Confirmed Active CS (cervical spondylosis) Confirmed Active Chronic kidney disease (CKD) Confirmed Active CKD stage 3 due to type 2 diabetes mellitus Confirmed Active Chronic low back pain w/Bilateral LE Radiculopathy (Lumbar DDD, MRI 03/2011) Confirmed Active COPD without exacerbation Confirmed Active History of Chronic pancreatitis & Pseudocyst Confirmed Active Cirrhosis of liver (Steatohepatitis/NAFL D, Suspected GI Sarcoidosis but no findings sarcoid 2013 liver biopsy) Confirmed Active Diabetes Confirmed Active Dyshidrotic eczema Confirmed Active GERD without esophagitis Confirmed Active General medical Confirmed Active History [...] collapse Confirmed Active Tobacco use Confirmed Active Type 2 diabetes with nephropathy Confirmed Active Social History Social History Type Response Smoking Status 5-9 cigarettes (betw een 1/4 to 1/2 pack)/day in last 30 days; Interested in cessation: Yes; Patient wants NRT during admission Yes; Type: Cigarettes entered on: 09/29/22 Sex Patient Care team information Care Team Personnel Name: Lawrence Hendrix Position: [facility] RN Member Role: Primary Care Nurse Name: Nazia Norris RN Position: [facility] Outreach Member Role: Primary Care Nurse Name: Rufino Lloyd RN Position: [facility] RN Member Role: Primary Care Nurse Name: Cristina Carpenter RN Position: [facility] RN Member Role: Primary Care Nurse Name: Rosette Noriega RN Position: [facility] RN Member Role: Primary Care Nurse Name: Mary Hidalgo RN Position: [facility] AMB Nurse Member Role: Primary Care Nurse Name: Sissy Duran RN Position: [facility] AMB Nurse Member Role: Primary Care Nurse Name: Erlinda Hartman NP Position: [facility] Associate Professional Member Role: Primary Care Nurse Address: Address: [address] [place] [id number] Name: Shante Solis RN Position: [facility] RN Member Role: Primary Care Nurse Name: Joshua Prakash RN Position: [facility] RN Member Role: Primary Care Nurse Name: Bettie Vangeas RN Position: [facility] SN RN Member Role: Primary Care Nurse Name: Jay Marroquin RN Position: [facility] RN Member Role: Primary Care Nurse Name: Adrianna Church RN Position: [facility] RN Member Role: Primary Care Nurse Name: Sue Purdy RN Position: [facility] RN Member Role: Primary Care Nurse Name: Hector Perez RN Position: [facility] ED RN W/OE and Tasks Member Role: Primary Care Nurse Name: Aleena Vizcaino RN Position: [facility] RN Member Role: Primary Care Nurse Name: Kacey Wilhelm RN Position: [facility] RN Member Role: Primary Care Nurse Name: Leslie Malloy RN Position: [facility] RN Member Role: Primary Care Nurse Name: Yesenia Hu LPN Position: [facility] RN Member Role: Primary Care Nurse Name: Joaquina Herrera RN Position: [facility] RN Member Role: Primary Care Nurse Name: Diego Bell RN Position: [facility] RN Member Role: Primary Care Nurse Name: Ese Grey Position: [facility] RN Member Role: Primary Care Nurse Name: Chela Najera RN Position: [facility] RN Member Role: Primary Care Nurse Name: Tootie Gonzalez RN Position: [facility] RN Member Role: Primary Care Nurse Name: Nancy Monte RN Position: [facility] RN Member Role: Primary Care Nurse Name: Marilee Starkey Position: [facility] RN Member Role: Primary Care Nurse Name: Silvina Dodd RN Position: [facility] RN Member Role: Primary Care Nurse Name: Flaco Clifford DO Position: [facility] Renal MD Member Role: Lifetime Consulting Physician Address: Address: [address] [place], [place] [address] [place], [place] [address] Name: Marilee Richardson RN Position: [facility] RN Member Role: Primary Care Nurse Name: Rufino Johnson RN Position: [facility] RN Member Role: Primary Care Nurse Name: Judson Larry Position: [facility] RN Member Role: Primary Care Nurse Name: Jovita Camargo RN Position: [facility] RN Member Role: Primary Care Nurse Name: Bruna Pizarro Position: [facility] RN Member Role: Primary Care Nurse Name: Ju Zhu Position: [facility] RN Member Role: Primary Care Nurse Name: Ester Palomares Position: [facility] RN Member Role: Primary Care Nurse Name: Emma Colbert RN Position: [facility] RN Member Role: Primary Care Nurse Name: Hallie Gambino RN Position: [facility] Onco RN Member Role: Primary Care Nurse Name: Maya Ambriz RN Position: [facility] RN Member Role: Primary Care Nurse Name: Bhavna Rendon LPN Position: [facility] RN Member Role: Primary Care Nurse Name: Luis Burton RN Position: [facility] RN Member Role: Primary Care Nurse Name: Jaki Bishop MD Position: [facility] Physician - Primary Care Member Role: PCP Address: Address: [address] [place] [address] Name: Lucian Krause RN Position: [facility] RN Member Role: Primary Care Nurse Name: Misty Tariq Position: [facility] RN Member Role: Primary Care Nurse Name: Isaiah Combs RN Position: [facility] RN Member Role: Primary Care Nurse Name: Leslie Ward RN Position: [facility] RN Member Role: Primary Care Nurse Name: Jacki Gomes RN Position: [facility] RN Member Role: Primary Care Nurse Name: Derek Smith RN Position: [facility] RN Member Role: Primary Care Nurse Name: Perri Smith RN Position: [facility] RN Member Role: Primary Care Nurse Name: Mar Brothers RN Position: [facility] RN Member Role: Primary Care Nurse Name: Ivette Shankar RN Position: [facility] RN Member Role: Primary Care Nurse Name: Laura Mary RN Position: [facility] SN RN Member Role: Primary Care Nurse Name: Mary Guillen RN Position: [facility] RN Member Role: Primary Care Nurse Name: Octavio Box RN Position: [facility] RN Member Role: Primary Care Nurse Name: Nazia Tapia RN Position: [facility] RN Member Role: Primary Care Nurse Name: Pat Jackson RN Position: [facility] RN Member Role: Primary Care Nurse Name: Caren Hernandez RN Position: [facility] RN Supv Member Role: Primary Care Nurse Name: Nely Wong RN Position: [facility] RN Member Role: Primary Care Nurse Name: Erica Brandon RN Position: [facility] RN Member Role: Primary Care Nurse Name: Adrianna Gonzalez RN Position: [facility] RN Member Role: Primary Care Nurse Name: Chinyere Espinoza RN Position: [facility] RN Member Role: Primary Care Nurse Name: Teresita Diallo RN Position: [facility] RN Member Role: Primary Care Nurse Name: Tennille Mcgarry RN Position: [facility] Hospital Cartoonist Special Effects Member Role: Primary Care Nurse Name: Vicky Salazar RN Position: [facility] RN Member Role: Primary Care Nurse Name: Spencer Jameson RN Position: [facility] RN Member Role: Primary Care Nurse Name: Jalen Mullins Position: [facility] RN Member Role: Primary Care Nurse Care Team Related Persons Name: MARYANNE KELLER Address: [address] [place] [address] Name: MARYANNE KELLER Address: home [address] [place] [address] Name: MARYANNE KELLER JR Address: home [address] [place] [address] Name: GEORGIA KELLER Address: [place] [address] Name: BALDEV POLANCO Address: [place] [address]
--- OUTSIDE RECORDS SUMMARY | 2023-02-09 22:36 | XMS_ITS | Continuity of Care Document ---
Author Name Unknown Organization [facility] Address [address] [place] [address]- Care Team Providers Care Cans Vacuum Tester Name Role Phone Jaki Bishop MD Primary Care Physician [phone] Encounter [facility] Date(s): 08/20/21 - 09/19/[address] [address] Allergies, Adverse Reactions, Alerts Substance Reaction [...] to COVID vaccine 2Admin Note: VIS GIVEN [id number] 3Admin Note: VIS GIVEN 2008- 4Admin Note: vis 5Admin Note: vis 02/06/08 Medications Abilify 10 mg oral tablet 10 mg, 1, tablet, By Mouth, Daily, # 90 tablet, Refills 3, Tot. Refills 3, Maintenance, 07/07/21 8:56:00 EDT, Route to Pharmacy Electronically, [facility] [id number], Partialfill upon patient request if the prescription [...] 07/07/21 8:56:00 EDT, Route to Pharmacy Electronically, [facility] [id number], Partial fill upon patient request if the prescri... Start Date: 07/07/21 Status: Ordered Comfort EZ Pen [place] 31 gauge x /16 USE TO inject insulin 4 (FOUR) TIMES DAILY Start Date: 07/03/21 Status: Ordered Coreg 6.25 mg oral tablet 6.25 mg, 1, tablet, By Mouth, 2 times a day, # 180 tablet, Refills 3, Tot. Refills 3, Maintenance, 07/07/21 8:56:00 EDT, Route to Pharmacy Electronically, [facility] [id number], Partial fill upon patient request if the prescri... Start Date: 07/07/21 Status: Ordered Daily Multiple Vitamins oral tablet 1 tablet, By Mouth, Daily, # 90 tablet, 3 Refills, Maintenance, 07/07/21 8:56:00 EDT, Tablet, [facility] [id number], Partial fill upon patient request if the prescription is for a schedule II opioid drug., 1 tablet By Mouth Da... Start Date: 07/07/21 Status: Ordered divalproex sodium 250 mg oral enteric coated tablet 1 tablet = 250 mg, By Mouth, Daily in AM, # 90 tablet, 3 Refills, Maintenance, 07/07/21 8:56:00 EDT, Tablet, [facility] [id number], Partial fill upon patient request if the prescription is for a schedule II opioid drug., 167,... Start Date: 07/07/21 Status: Ordered divalproex sodium 500 mg oral enteric coated tablet 1 tablet = 500 mg, By Mouth, Daily at bedtime, # 90 tablet, 3 Refills, Maintenance, 07/07/21 8:56:00 EDT, Tablet, [facility] [id number], Partial fill upon patient request if the prescription is for a schedule II opioid drug.,... Start Date: 07/07/21 Status: Ordered Eucerin Unscented topical lotion See Instructions, Apply daily as directed to dry skin. 16 oz, # 1 each, 3 Refills, Maintenance, 07/07/21 9:02:00 EDT, [facility] [id number], Partial fill upon patient requestif the prescription [...] 07/07/21 8:56:00 EDT, Route to Pharmacy Electronically, [facility] [id number], Partial fill upon patient request if the p... Start Date: 07/07/21 Status: Ordered gabapentin 100 mg oral capsule 200 mg, 2, capsule, By Mouth, Daily at bedtime, # 180 capsule, Refills 3, Tot. Refills 3, Maintenance, 07/07/21 8:56:00 EDT, Route to Pharmacy Electronically, [facility] [id number], Partial fill upon patient request if the pre... Start Date: 07/07/21 Status: Ordered guaiFENesin 100 mg/5 mL oral liquid 5 mL = 100 mg, By Mouth, Every 4 hours, PRN for cough, # 300 mL, 0 Refills, Acute 07/07/22 9:05:00 EDT, 07/07/21 9:02:00 EDT, Liquid, [facility] [id number], Partial fill uponpatient request if the prescription [...] a day, # 581 mL, 3 Refills, [facility], 10, TAKE 30mls BY MOUTH 2 (two) times a day, 167, cm, 07/07/21 8:39:00 EDT, Height, 95.6, kg, 06/29/21 18:39:00 EDT, Dry Weight Start Date: 08/10/21 Status: Ordered Lantus Solostar Pen 100 units/mL subcutaneous solution = 16 units, Subcutaneous Infusion, Daily, # 15 mL, 5 Refills, Maintenance, 09/11/21 17:25:00 EDT, [facility] [id number], Partial fill upon patient request if the prescriptionis for a schedule II opioid drug., 167, cm, ... Start Date: 09/11/21 Status: Ordered loratadine 10 mg oral tablet 10 mg, 1, tablet, By Mouth, Daily, # 90 tablet, Refills 3, Tot. Refills 3, Maintenance, 07/07/21 8:56:00 EDT, Route to Pharmacy Electronically, [facility] [id number], Partialfill upon patient request if the prescription is fo... Start Date: 07/07/21 Status: Ordered magnesium oxide 400 mg oral tablet 1 tablet = 400 mg, By Mouth, 2 times a day, # 180 tablet, 3 Refills, Maintenance, 07/07/21 8:56:00 EDT, Tablet, [facility] [id number], Partial fill upon patient request if the prescription is for a schedule II opioid drug., 16... Start Date: 07/07/21 Status: Ordered melatonin 3 mg oral tablet 1 tablet = 3 mg, By Mouth, Daily at bedtime, PRN Insomnia, # 90 tablet, 3 Refills, Maintenance, 07/07/21 8:56:00 EDT, Tablet, [facility] [id number], Partial fill upon patientrequest if the prescription is for a schedule II op... Start Date: 07/07/21 Status: Ordered nicotine 2 mg oral transmucosal lozenge 1 lozenge = 2 mg, By Mouth, Every hour, PRN Other, Nicotine Withdrawal Symptoms (not to exceed 20 lozenges per day), # 72 lozenge, 3 Refills, Maintenance, 07/07/21 8:56:00 EDT, Lozenge, [place], [place] - [id number], Partial fill upon... Start Date: 07/07/21 Status: Ordered pancrelipase 10,000 units-32,000 units-42,000 units oral delayed release capsule 1 capsule, By Mouth, 3 times a day, with each meal and snack, # 270 capsule, 3 Refills, Maintenance, 07/07/21 8:56:00 EDT, CR Capsule, [place], [place] - [id number], Partial fill upon patient request if the [...] Weight Start Date: 07/07/21 Status: Ordered Pen [place], 31 G x 8 mm BD Ultra [...] Maintenance, 07/07/21 8:56:00 EDT, Tablet, [facility], [place] - [id number], Partial fill upon patient request if theprescription [...] Active H/O tubal ligation(Confirmed) Active 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
--- OUTSIDE RECORDS SUMMARY | 2023-02-09 22:36 | XMS_ITS | Continuity of Care Document ---
Author Name Unknown Organization [facility] Address [address] [place] [address]- Care Team Providers Care Licensed Esthetician Name Role Phone Jaki Bishop MD Primary Care Physician [phone] Encounter [facility] Date(s): 06/30/20 - 07/30/[address] [address]- Allergies, Adverse Reactions, Alerts Substance Reaction Severity [...] Given Permanently Refused 1Admin Note: VIS GIVEN [id number] 2Admin Note: VIS GIVEN 2008-12 3Admin Note: vis 4Admin Note: vis 02/06/08 Medications acetaminophen 325 mg oral tablet 1, tablet, By Mouth, 4 times a day, PRN, not to exceed 4 TABLETS PER DAY. Not to exceed 2000 mg/day. PRN Pain, # 60 tablet, Refills 0, Tot. Refills 0, Maintenance, NEEDED, 07/22/20 10:39:00 EDT, Route to Pharmacy Electronically, [facility] -... Start Date: 07/22/20 Status: Ordered Alcohol [...] 0 Refills, Maintenance, 04/16/20 11:06:00 EST, Tablet, [facility] [id number], Partial fill upon patient request if the prescription is for a schedule II opioid drug., 168,... Start Date: 04/16/20 Status: Ordered clozapine 50 mg oral tablet 3 tablet = 150 mg, By Mouth, Daily at bedtime, # 90 tablet, 0 Refills, Maintenance, 04/16/20 11:06:00 EST, Tablet, [facility] [id number], Partial fill upon patient request ifthe prescription is for a schedule II opioid drug.,... Start Date: 04/16/20 Status: Ordered Comfort EZ [place] 31 gauge x 5/16 Comfort EZ [place] 31 gauge x 5/16 , See Instructions, [...] 05/26/20 14:41:00 EST, Route to Pharmacy Electronically, [facility] [id number], Partial fill upon patient request if the prescr... Start Date: 05/26/20 Stop Date: 11/22/20 Status: Ordered docusate sodium 100 mg oral capsule = 100 mg, By Mouth, 2 times a day, PRN Constipation., # 60 capsule, 5 Refills, Maintenance, 07/21/20 10:54:00 EDT, Capsule, [facility] [id number], Partial fill upon patient request if the [...] Maintenance,05/28/20 13:46:00 EST, Route to Pharmacy Electronically, [facility] [id number], Partial fill upon patient request if the [...] K86.1, K74.6, E11.65. Fax to Anna ( [facility], #[phone]), 06/06/20 19... Start Date: 06/06/20 Status: Ordered [...] mL, 1 Refills, Maintenance, 04/16/20 11:07:00 EST, [facility] [id number],... Start Date: 04/16/20 Status: Ordered lactulose 10 gm/15 ml oral syrup 30 mL, By Mouth, 2 times a day, # 581 mL, 3 Refills, Maintenance, 06/27/20 11:11:00 EDT, [facility] [id number], 10, 30 mL By Mouth 2 times [...] 3 Refills, Maintenance, 07/29/20 10:17:00 EDT, Solution, [facility] [place] - [id number], 168, cm, 04/16/20 8:30:00 EST, Height, 98.7, kg, 2... Start Date: 07/29/20 Status: Ordered loratadine 10 mg oral tablet See Instructions, TAKE ONE TABLET BY MOUTH DAILY, # 30 tablet, Refills 5, Tot. Refills 5, 05/01/20 8:18:00 EST, Instructions Replace Required Details, Route to Pharmacy Electronically, [facility] [place] - [id number], 168, cm, 04/16/20... Start Date: 05/01/20 Status: Ordered multivitamin Multiple Vitamins oral tablet 1 tablet, By Mouth, Daily, # 90 tablet, 1 Refills, Maintenance, 05/26/20 13:28:00 EST, Tablet, [facility] [place] - [id number], 1 tablet By Mouth Daily, 168, cm, [...] 0 Refills, Maintenance, 04/16/20 11:08:00 EST, [facility]um, [place], [place] - [id number], Partial fill upon patient request if the [...] 5 Refills, Maintenance, 07/14/20 16:30:00 EDT, Tablet, [place], [place] - [id number], this is an increased, 1 tablet By Mouth 2 times a day,x30 days, 168, cm, 04/16/20 8:30:00 EST, Heigh... Start Date: 07/14/20 Stop Date: 01/10/21 Status: Ordered torsemide 20 mg oral tablet 1 tablet = 20 mg, By Mouth, Daily, # 30 tablet, 1 Refills, Maintenance, 04/16/20 11:09:00 EST, Tablet, [facility] [id number], Partial fill upon patient request if the prescription is for a schedule II opioid drug., 168, cm, 01... Start Date: 04/16/20 Stop Date: 04/11/21 Status: Ordered Zenpep 10,000 units-32,000 units-42,000 units oral delayed release capsule 1 capsule, By Mouth, 3 times a day, # 90 capsule, 0 Refills, Maintenance, 04/16/20 11:09:00 EST, [place], [place] - [id number], 1 capsule By Mouth 3 times a [...] Active H/O tubal ligation(Confirmed) Active [facility]/ [facility] Clinical Special[facility] [phone](Confirmed) Active History of cholecystectomy(Confirmed) Active Hypertension(Confirmed) Active [...]
--- OUTSIDE RECORDS SUMMARY | 2023-02-09 22:36 | XMS_ITS | Continuity of Care Document ---
Author Name Unknown Organization [facility] ter Address [address] [place] [id number]- Care Team Providers Care Holder Pile D[employer] Name Role Phone Dario HAYDEN, Jaki Primary Care Physician Encounter [facility] Date(s): 01/20/22 - 02/19/[address] [address] Attending Physician: Ruth Saunders MD Referring Physician: Not on Staff, Referring [...] to COVID vaccine 2Admin Note: VIS GIVEN [id number] 3Admin Note: VIS GIVEN 2008- 4Admin Note: [...] 02/02/22 9:36:00 EST, Route to Pharmacy Electronically, [facility] [id number], Partial fill upon patient request if the prescri... Start Date: 02/02/22 Status: Ordered cloNIDine 0.1 mg oral tablet 0.05 mg, 0.5, tablet, By Mouth, Daily, # 15 tablet, Refills 0, Tot. Refills 0, Maintenance, 02/02/22 9:36:00 EST, Route to Pharmacy Electronically, [facility] [id number], Partial fill upon patient request if the prescription i... Start Date: 02/02/22 Status: Ordered Coreg 6.25 mg oral tablet 6.25 mg, 1, tablet, By Mouth, 2 times a day, # 60 tablet, Refills 0, Tot. Refills 0, Maintenance, 02/02/22 9:36:00 EST, Route to Pharmacy Electronically, [facility] [id number], Partial fill upon patient request if the prescrip... Start Date: 02/02/22 Status: Ordered Creon 12,000 units oral delayed release capsule 1 capsule, By Mouth, 3 times a day, # 90 capsule, 0 Refills, Maintenance, 02/02/22 9:39:00 EST, [facility] Caps[facility], [place], [place] - [id number], Partial fill upon patient request if the prescription is for a schedule II opioid drug., 167, c... Start Date: 02/02/22 Status: Ordered divalproex sodium 500 mg oral enteric coated tablet 1 tablet = 500 mg, By Mouth, 2 times a day, # 60 tablet, 0 Refills, Maintenance, 02/02/22 9:36:00 EST, Tablet, [facility] [id number], Partial fill upon patient request if theprescription is for a schedule II opioid drug., 167... Start Date: 02/02/22 Status: Ordered folic acid 1 mg oral tablet 1 mg, 1, tablet, By Mouth, Daily, # 30 tablet, Refills 1, Tot. Refills 1, Maintenance, 02/02/22 9:36:00 EST, Route to Pharmacy Electronically, [facility] [id number], Partial fill upon patient request if the [...] 02/02/22 9:37:00 EST, Route to Pharmacy Electronically, [facility] [id number], Partialfill upon patient request if the prescription is fo... Start Date: 02/02/22 Status: Ordered melatonin 3 mg oral tablet 1 tablet = 3 mg, By Mouth, Daily at bedtime, PRN Insomnia, # 30 tablet, 0 Refills, Maintenance, 02/02/22 9:37:00 EST, Tablet, [facility] [id number], Partial fill upon patientrequest if the prescription [...] 02/02/22 9:39:00 EST, Route to Pharmacy Electronically, [facility] [id number],Partial fill upon patient request if the prescripti... Start Date: 02/02/22 Status: Ordered torsemide 20 mg oral tablet 1 tablet = 20 mg, By Mouth, 2 times a day, # 60 tablet, 0 Refills, Maintenance, 02/02/22 9:40:00 EST, Tablet, [place], [place] - [id number], Partial fill upon patient request if the [...] Yes; Type: Cigarettes entered on: 06/29/21 Sex Note * Event Display: Admission Screening Checklist Authored Date: * Event Display: Physician Cert Statement for Admission Authored Date: Patient Care team information Care Team Personnel Name: Daniel Gamino RN Position: [facility] RN Member Role: Primary Care Nurse Name: Lawrence Hendrix Position: [facility] RN Supv Member Role: Primary Care Nurse Name: Rufino Lloyd RN Position: [facility] RN Member Role: Primary Care Nurse Name: Cristina Carpenter RN Position: [facility] RN Member Role: Primary Care Nurse Name: Rosette Noriega RN Position: [facility] SN RN Member Role: Primary Care Nurse Name: Mary Hidalgo RN Position: [facility] PCO RN Member Role: Primary Care Nurse Name: Sissy Duran RN Position: [facility] AMB Nurse Member Role: Primary Care Nurse Name: Rohit Zavaleta RN Position: [facility] RN Member Role: Primary Care Nurse Name: Erlinda Hartman NP Position: [facility] Associate Professional Member Role: Primary Care Nurse Address: Address: [address] [place] [address] Name: Jong Suazo RN Position: [facility] RN Supv Member Role: Primary Care Nurse Name: Shante Solis RN Position: [facility] RN Member Role: Primary Care Nurse Name: Bettie Vanegas RN Position: [facility] RN Member Role: Primary Care Nurse Name: Jay Marroquin RN Position: [facility] RN Member Role: Primary Care Nurse Name: Sue Purdy RN Position: [facility] RN Member Role: Primary Care Nurse Name: Hector Perez RN Position: [facility] RN Member Role: Primary Care Nurse Name: Aleena Vizcaino RN Position: [facility] RN Member Role: Primary Care Nurse Name: Kacey Wilhelm RN Position: [facility] RN Member Role: Primary Care Nurse Name: Monalisa Barker Position: [facility] RN Member [...] Najera RN Position: [facility] MALOU RN W/OE and [...] Care Nurse Name: Kiran Molina RN Position: [facility] RN Member Role: Primary Care Nurse Name: Flaco Clifford DO Position: [facility] Renal MD Member Role: Lifetime Consulting Physician Address: Address: [address] [place], [place] [address] [place], [place] [address] Name: Marilee Richardson RN [facility] Care Nurse Name: Kristen Gar RN Position: [facility] RN Member Role: Primary Care Nurse Name: Luis Burton RN Position: [facility] RN Member Role: Primary Care Nurse Name: Jaki Bishop MD Position: [facility] Primary Care Physician Member Role: PCP Address: Address: [address] [place] [id number]- Name: Leslie Ward RN Position: [facility] RN Member Role: Primary Care Nurse Name: Jacki Gomes RN Position: [facility] RN Member Role: Primary Care Nurse Name: Ximena Saab RN Position: [facility] RN Member Role: Primary Care Nurse Name: Ivette Shankar RN Position: [facility] RN Supv Member Role: Primary Care Nurse Name: Laura Mary RN Position: [facility] RN Member Role: Primary Care Nurse Name: Octavio Box RN Position: [facility] RN Member Role: Primary Care Nurse Name: Caren Hernandez RN Position: [facility] RN Supv Member Role: Primary Care Nurse Name: Kinza De La Cruz RN Position: [facility] RN Member Role: Primary Care Nurse Name: Veronica Queen RN Position: [facility] RN Member Role: Primary Care Nurse Name: Nely Wong RN Position: [facility] RN Member Role: Primary Care Nurse Name: Erica Brandon RN Position: [facility] RN Member Role: Primary Care Nurse Name: Adrianna Gonzalez RN Position: [facility] RN Member Role: Primary Care Nurse Name: Annmarie Feldman RN Position: [facility] PCO w/OE and EZ Script Member Role: Primary Care Nurse Name: Chinyere Espinoza RN Position: [facility] RN Member Role: Primary Care Nurse Name: Teresita Diallo RN Position: [facility] RN Member Role: Primary Care Nurse Name: Tennille Mcgarry RN Position: [facility] Beading Installer Member Role: Primary Care Nurse Name: Vicky Salazar RN Position: [facility] RN Member Role: Primary Care Nurse Name: Jalen Mullins Position: [facility] RN Member Role: Primary Care Nurse Care Team Related Persons Name: MARYANNE KELLER Address: [address] [place] [address] Name: MARYANNE KELLER Address: home [address] [address] Name: GEORGIA KELLER Address: [place] [address] Name: BALDEV POLANCO Address: [place]
--- OUTSIDE RECORDS SUMMARY | 2023-02-09 22:36 | XMS_ITS | Continuity of Care Document ---
Author Name Unknown Organization [facility] Address [address] [place] [address]- Care Team Providers Care Drying Machine Operator Name Role Phone Dario HAYDEN, Jaki Primary Care Physician Encounter [facility] Date(s): 12/07/22 - 01/06/[address] [address]- Allergies, Adverse Reactions, Alerts Substance Reaction Severity [...] to COVID vaccine 2Admin Note: VIS GIVEN [id number] 3Admin Note: VIS GIVEN 2008- 4Admin Note: vis 5Admin Note: vis 02/06/08 Medications albuterol 90 mcg/inh inhalation powder 2 puffs, Inhalation, Every 4 hours, PRN as needed, PRN Wheezing, # 1 each, 1 Refills, Maintenance, 06/28/22 14:49:00 EDT, Powder, [facility] [id number], Partial fill upon patient request if the [...] 07/16/22 16:04:00 EDT, Route to Pharmacy Electronically, [facility] [id number], Partialfill upon patient request if the prescription is fo... Start Date: 07/16/22 Status: Ordered benztropine 1 mg oral tablet 0.5 mg, 0.5, tablet, By Mouth, 2 times a day, # 30 tablet, Refills 3, Tot. Refills 3, Maintenance, 09/17/22 1:51:00 EDT, Route to Pharmacy Electronically, [facility] [id number], Partial fill upon patient request if the prescri... Start Date: 09/17/22 Stop Date: 01/15/23 Status: Ordered Cane See Instructions, # 1 each, Maintenance, use at walking, 10/18/22 11:44:00 EDT, Supply Start Date: 10/18/22 Status: Ordered carvedilol 3.125 mg oral tablet 3.125 mg, 1, tablet, By Mouth, 2 times a day, # 60 tablet, Refills 2, Tot. Refills 2, Maintenance, 10/18/22 11:46:00 EDT, Route to Pharmacy Electronically, [facility] [id number], Partial fill upon patient request if the prescr... Start Date: 10/18/22 Status: Ordered cloNIDine 0.1 mg oral tablet 0.1 mg, 1, tablet, By Mouth, Daily at bedtime, # 30 tablet, Refills 2, Tot. Refills 2, Maintenance,12/09/22 19:15:00 EDT, Route to Pharmacy Electronically, [facility] [id number], Partial fill upon patient request if the presc... Start Date: 12/09/22 Status: Ordered Creon 12,000 units oral delayed release capsule 1 capsule, By Mouth, 3 times a day, # 90 capsule, 3 Refills, Maintenance, 09/17/22 1:49:00 EDT, EC Capsule, [facility] [id number], Partial fill upon patient request if the prescription is for a schedule II opioid drug., 160, c... Start Date: 09/17/22 Status: Ordered Docusate/Senna Tablet 1 tablet, By [...] 09/17/22 1:48:00 EDT, Route to Pharmacy Electronically, [facility] [id number], 160, cm, 07/26/22 12:51:00 EDT, Height, 89.2, [...] tablet, Refills 1, Tot. Refills 1, Maintenance, 10/18/22 11:46:00 EDT, Route to Pharmacy Electronically, [facility] [id number], Partial fill upon patient request if the prescription is f... Start Date: 10/18/22 Status: Ordered insulin lispro 100 u/ml subcutaneous [...] mL, 5 Refills, Maintenance, 12/09/22 19:15:00 EDT, [facility] [id number], 15, 30 mL By Mouth 2 times a day, 165.09, cm, 10/18/22 11:23:00 EDT, Height, 83.7, kg, 10/05/22 21:20:00 EDT, Start Date: 12/09/22 Status: Ordered Lantus Solostar Pen 100 units/mL subcutaneous solution = 6 units, Subcutaneous Injection, Daily in AM, # 10 mL, 2 Refills, Maintenance, 12/09/22 19:15:00 EDT, Solution, [facility] [id number], Partial fill upon patient request if the prescription is for a schedule II opioid drug.,... Start Date: 12/09/22 Status: Ordered magnesium oxide 400 mg oral tablet 1 tablet = 400 mg, By Mouth, Daily, for 14 days, # 14 tablet, 0 Refills, Acute 01/10/23 7:43:00 EDT, 12/27/22 7:43:00 EDT, Tablet, [facility] [id number], Partial fill upon patient request if the prescription is for a schedule... Start Date: 12/27/22 Stop Date: 01/10/23 Status: Ordered multivitamin Multiple Vitamins oral tablet 1 tablet, By Mouth, Daily, # 90 tablet, 1 Refills, Maintenance, 10/22/22 19:32:00 EDT, Tablet, [facility] [id number], Partial fill upon patient request if the prescription isfor a schedule II opioid drug., 1 tablet By Mouth D... Start Date: 10/22/22 Status: Ordered Nicotine 2 mg gum 1 each = 2 mg, Chew, Every 2 hours, PRN for smoking cessation, for 4 week(s), # 160 each, 1 Refills, Acute 02/03/23 19:15:00 EST, 12/09/22 19:15:00 EDT, Gum, [facility] [id number], Partial fill upon patient request if the pres... Start Date: 12/09/22 Stop Date: 02/03/23 Status: Ordered pantoprazole 40 mg oral delayed release tablet 1 tablet, By Mouth, Daily, # 30 tablet, 2 Refills, Maintenance, 11/10/22 11:02:00 EDT, 165.09, cm, 10/18/22 11:23:00 EDT, Height, 83.7, kg, 10/05/22 21:20:00 EDT, Dry Weight Start Date: 11/10/22 Status: Ordered Pen [place], 31 G x 5 mm BD Ultra Fine III See Instructions, # 100 each, Refills 5, Tot. Refills 5, Maintenance, use as directed for Type 2 Diabetes Mellitus, ICD10 E11.9, 11/11/22 20:10:00 EDT, Supply, 165.09, cm, 10/18/22 11:23:00 EDT, Height, 83.7, kg, 10/05/22 21:20:00 EDT, Dry Weight Start Date: 11/11/22 Stop Date: 05/10/23 Status: Ordered risperiDONE 2 mg oral tablet 2 mg, 1, tablet, By Mouth, Daily in AM, # 30 tablet, Refills 0, Tot. Refills 0, Maintenance, 10/12/22 10:21:00 EDT, Route to Pharmacy Electronically, [facility] [id number], Partial fill upon patient request if the prescription... Start Date: 10/12/22 Stop Date: 11/11/22 Status: Ordered risperiDONE 3 mg oral tablet 3 mg, 1, tablet, By Mouth, Daily at bedtime, # 30 tablet, Refills 0, Tot. Refills 0, Maintenance, 10/12/22 10:21:00 EDT, Route to Pharmacy Electronically, [facility] [id number], Partial fill upon patient request if the prescri... Start Date: 10/12/22 Status: Ordered Robitussin DM Liquid 10 mL, By Mouth, Every 4 hours, PRN Cough, 0 Refills, Maintenance, 10/05/22 11:38:00 EDT, Syrup, Partial fill upon patient request if the prescription is for a schedule II opioid drug. Start Date: 10/05/22 Status: Ordered shower chair shower chair, See Instructions, # 1 each, Refills 0, Tot. Refills 0, Maintenance, use at showering,10/18/22 11:44:00 EDT, Supply Start Date: 10/18/22 Status: Ordered tiotropium 2.5 mcg/inh inhalation aerosol 2 puffs, Inhalation, Daily, # 1 each, 5 Refills, Maintenance, 09/17/22 1:52:00 EDT[facility] [place] [id number], Partial fill upon patient request if the prescription is for a schedule II opioid drug., 160, cm, 07/26/22 12:... Start Date: 09/17/22 Stop Date: 03/16/23 Status: Ordered traZODone 50 mg oral tablet 50 mg, 1, tablet, By Mouth, Daily at bedtime, # 30 tablet, Refills 2, Tot. Refills 2, Maintenance, 12/09/22 19:15:00 EDT, Route to Pharmacy Electronically, [place], [place] - [id number], Partial fill upon patient request if the prescr... Start Date: 12/09/22 Stop Date: 03/09/23 Status: Ordered Walker See Instructions, # 1 [...] Care Team Personnel Name: Lawrence Hendrix Position: [facility] RN Member Role: Primary Care Nurse Name: Nazia Norris RN Position: [facility] Outreach Member Role: Primary Care Nurse Name: Rufino Lloyd RN Position: [facility] RN Member Role: Primary Care Nurse Name: Cristina Carpenter RN Position: [facility] RN Member Role: Primary Care Nurse Name: Rosette Noriega RN Position: [facility] SN RN Member Role: Primary Care Nurse Name: Mary Hidalgo RN Position: [facility] AMB Nurse Member Role: Primary Care Nurse Name: Sissy Duran RN Position: [facility] AMB Nurse Member Role: Primary Care Nurse Name: Rohit Zavaleta RN Position: [facility] RN Member Role: Primary Care Nurse Name: Erlinda Hartman NP Position: [facility] Associate Professional Member Role: Primary Care Nurse Address: Address: [address] [place] [address] Name: Shante Solis RN Position: [facility] RN Member Role: Primary Care Nurse Name: Joshua Prakash RN Position: [facility] RN Member Role: Primary Care Nurse Name: Bettie Vanegas RN Position: [facility] SN RN Member Role: Primary Care Nurse Name: Jay Marroquin RN Position: [facility] RN Member Role: Primary Care Nurse Name: Adrianna Church RN Position: [facility] RN Member [...] Care Nurse Name: Yesenia Hu LPN Position: [facility] RN Member Role: [...] Care Nurse Name: Tootie Gonzalez RN Position: [facility] RN [...] Member Role: Lifetime Consulting Physician Address: Address: [address] [place] [address] [facility] [place], [place] [address] Name: Marilee Richardson RN Position: [facility] RN Member Role: Primary Care Nurse Name: Rufino Johnson RN Position: [facility] RN Member Role: Primary Care Nurse Name: Judson Larry Position: [facility] RN Member Role: Primary Care Nurse Name: Jovita Camargo RN Position: [facility] RN Member Role: Primary Care Nurse Name: Bruna Pizarro Position: [facility] RN Member Role: Primary Care Nurse Name: Ju Zhu Position: [facility] RN Member Role: Primary Care Nurse Name: Ester Palomares Position: [facility] RN Member Role: Primary Care Nurse Name: Emma Colbert RN Position: [facility] RN Member Role: Primary Care Nurse Name: Hallie Gambino RN Position: [facility] Onco RN Member Role: Primary Care Nurse Name: Maya Ambriz RN Position: [facility] RN Member Role: Primary Care Nurse Name: Bhavna Rendon LPN Position: [facility] RN Member Role: Primary Care Nurse Name: Luis Burton RN Position: [facility] RN Member Role: Primary Care Nurse Name: Jaki Bishop MD Position: [facility] Physician - Primary Care Member Role: PCP Address: Address: [address] [place] [id number]- Name: Lucian Krause RN Position: [facility] RN Member Role: Primary Care Nurse Name: Misty Tariq Position: [facility] RN Member Role: Primary Care Nurse Name: Isaiah Combs RN Position: [facility] RN Member Role: Primary Care Nurse Name: Leslie Ward RN Position: [facility] RN Member Role: Primary Care Nurse Name: Jacki Gomes RN Position: [facility] RN Member Role: Primary Care Nurse Name: Derek Smith RN Position: [facility] RN Member Role: Primary Care Nurse Name: Perri Smith RN Position: [facility] RN Member Role: Primary Care Nurse Name: Mar Brothers RN Position: [facility] RN Member Role: Primary Care Nurse Name: Ivette Shankar RN Position: [facility] RN Member Role: Primary Care Nurse Name: Laura Mary RN Position: [facility] SN RN Member Role: Primary Care Nurse Name: Mary Guillen RN Position: [facility] RN Member Role: Primary Care Nurse Name: Octavio Box RN Position: [facility] RN Member Role: Primary Care Nurse Name: Nazia Tapia RN Position: [facility] RN Member Role: Primary Care Nurse Name: Pat Jackson RN Position: [facility] RN Member Role: Primary Care Nurse Name: Caren Hernandez RN Position: [facility] RN Supsanchez Member Role: Primary Care Nurse Name: Nely [...] Mcgarry RN Position: [facility] Hospital Investigation Officer Member Role: Primary Care Nurse Name: Vicky Salazar RN Position: [facility] RN Member Role: Primary Care Nurse Name: Spencer Jameson RN Position: [facility] RN Member Role: Primary Care Nurse Name: Jalen Mullins Position: [facility] RN Member Role: Primary Care Nurse Care Team Related Persons Name: MARYANNE KELLER Address: [address] [place] [address] Name: MARYANNE KELLER Address: home [address] [address] Name: MARYANNE KELLER JR Address: [address] [place] [address] Name: GEORGIA KELLER Address: [place] [address] Name: BALDEV POLANCO Address: [place] [address]
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
--- OUTSIDE RECORDS SUMMARY | 2023-02-09 22:37 | XMS_ITS | Continuity of Care Document ---
Author Name Unknown Organization [facility] Address [address] [place] [address]- Care Team Providers Care Principal Law Clerk Name Role Phone Jaki Bishop MD Primary Care Physician [phone] [facility]counter [facility] Date(s): 11/16/22 - 12/16/[address] [id number] Allergies, Adverse Reactions, Alerts Substance Reaction Severity Status NSAIDs 1 Active predniSONE Dizzinesses 02-JAN-2016 21:52:27<$> Active Zyprexa Hypertension Active 1lsited due to pt's liver disease [...] to COVID vaccine 2Admin Note: VIS GIVEN [id number] 3Admin Note: VIS GIVEN 2008-12 4Admin Note: vis 5Admin Note: vis 02/06/08 Medications albuterol 90 mcg/inh inhalation powder 2 puffs, Inhalation, Every 4 hours, PRN as needed, PRN Wheezing, # 1 each, 1 Refills, Maintenance, 06/28/22 14:49:00 EDT, Powder, [facility], [place] - [id number], Partial fill upon patient request if the [...] 07/16/22 16:04:00 EDT, Route to Pharmacy Electronically, [facility] [id number], Partialfill upon patient request if the prescription is fo... Start Date: 07/16/22 Status: Ordered benztropine 1 mg oral tablet 0.5 mg, 0.5, tablet, By Mouth, 2 times a day, # 30 tablet, Refills 3, Tot. Refills 3, Maintenance, 09/17/22 1:51:00 EDT, Route to Pharmacy Electronically, [facility] [id number], Partial fill upon patient request if the [...] 10/18/22 11:46:00 EDT, Route to Pharmacy Electronically, [facility] [id number], Partial fill upon patient request if the prescr... Start Date: 10/18/22 Status: Ordered cloNIDine 0.1 mg oral tablet 0.1 mg, 1, tablet, By Mouth, Daily at bedtime, # 30 tablet, Refills 2, Tot. Refills 2, Maintenance,12/09/22 19:15:00 EDT, Route to Pharmacy Electronically, [facility] [id number], Partial fill upon patient request if the presc... Start Date: 12/09/22 Status: Ordered Creon 12,000 units oral delayed release capsule 1 capsule, By Mouth, 3 times a day, # 90 capsule, 3 Refills, Maintenance, 09/17/22 1:49:00 EDT, EC Capsule, [facility] [id number], Partial fill upon patient request if the [...] 09/17/22 1:48:00 EDT, Route to Pharmacy Electronically, [facility] [id number], 160, cm, 07/26/22 12:51:00 EDT, Height, 89.2, [...] 10/18/22 11:46:00 EDT, Route to Pharmacy Electronically, [facility] [id number], Partial fill upon patient request if the [...] mL, 5 Refills, Maintenance, 12/09/22 19:15:00 EDT, [facility] [id number], 15, 30 mL By Mouth 2 times a day, 165.09, cm, 10/18/22 11:23:00 EDT, Height, 83.7, kg, 10/05/22 21:20:00 EDT, Start Date: 12/09/22 Status: Ordered Lantus Solostar Pen 100 units/mL subcutaneous solution = 6 units, Subcutaneous Injection, Daily in AM, # 10 mL, 2 Refills, Maintenance, 12/09/22 19:15:00 EDT, Solution, [facility] [id number], Partial fill upon patient request if the prescription is for a schedule II opioid drug.,... Start Date: 12/09/22 Status: Ordered multivitamin Multiple Vitamins oral tablet 1 tablet, By Mouth, Daily, # 90 tablet, 1 Refills, Maintenance, 10/22/22 19:32:00 EDT, Tablet, [facility] [id number], Partial fill upon patient request if the prescription isfor a schedule II opioid drug., 1 tablet By Mouth D... Start Date: 10/22/22 Status: Ordered Nicotine 2 mg gum 1 each = 2 mg, Chew, Every 2 hours, PRN for smoking cessation, for 4 week(s), # 160 each, 1 Refills, Acute 02/03/23 19:15:00 EST, 12/09/22 19:15:00 EDT, Gum, [facility] [id number], Partial fill upon patient request if the pres... Start Date: 12/09/22 Stop Date: 02/03/23 Status: Ordered pantoprazole 40 mg oral delayed release tablet 1 tablet, By Mouth, Daily, # 30 tablet, 2 Refills, Maintenance, 11/10/22 11:02:00 EDT, 165.09, cm, 10/18/22 11:23:00 EDT, Height, 83.7, kg, 10/05/22 21:20:00 EDT, Dry Weight Start Date: 11/10/22 Status: Ordered Pen Bryson, 31 G x 5 mm BD Ultra [...] 10/12/22 10:21:00 EDT, Route to Pharmacy Electronically, [facility] [id number], Partial fill upon patient request if the prescription... Start Date: 10/12/22 Stop Date: 11/11/22 Status: Ordered risperiDONE 3 mg oral tablet 3 mg, 1, tablet, By Mouth, Daily at bedtime, # 30 tablet, Refills 0, Tot. Refills 0, Maintenance, 10/12/22 10:21:00 EDT, Route to Pharmacy Electronically, [facility] [id number], Partial fill upon patient request if the [...] 5 Refills, Maintenance, 09/17/22 1:52:00 EDT, Inhaler, [facility] [id number], Partial fill upon patient request if the prescription is for a schedule II opioid drug., 160, cm, 07/26/22 12:... Start Date: 09/17/22 Stop Date: 03/16/23 Status: Ordered traZODone 50 mg oral tablet 50 mg, 1, tablet, By Mouth, Daily at bedtime, # 30 tablet, Refills 2, Tot. Refills 2, Maintenance, 12/09/22 19:15:00 EDT, Route to Pharmacy Electronically, [facility] [place], [place] - [id number], Partial fill upon patient request if the [...] Care Team Personnel Name: Lawrence Hendrix Position: S RN Member Role: Primary Care Nurse Name: Nazia Norris RN Position: [facility] Outreach Member Role: Primary Care Nurse Name: Rufino Lloyd RN Position: [facility] RN Member Role: Primary Care Nurse Name: Cristina Carpenter RN Position: [facility] RN Member Role: Primary Care Nurse Name: Rosette Noriega RN Position: [facility] SN RN Member Role: Primary Care Nurse Name: Mary Hidalgo RN Position: [facility] AMB Nurse Member Role: Primary Care Nurse Name: Sissy Duran RN Position: [facility] AMB Nurse Member Role: Primary Care Nurse Name: Rohit Zavaleta RN Position: [facility] RN Member Role: Primary Care Nurse Name: Erlinda Hartman NP Position: [facility] Associate Professional Member Role: Primary Care Nurse Address: Address: [address] [place] [id number] Name: Shante Solis RN Position: [facility] RN Member Role: Primary Care Nurse Name: Joshua Prakash RN Position: [facility] RN Member Role: Primary Care Nurse Name: Bettie Vanegas RN Position: [facility] SN RN Member Role: Primary Care Nurse Name: Jay Marroquin RN Position: [facility] RN Member Role: Primary Care Nurse Name: Adrianna Church RN Position: [facility] RN Member Role: Primary Care Nurse Name: Sue Purdy RN Position: [facility] RN Member Role: Primary Care Nurse Name: Hector Perez RN Position: [facility] ED RN W/OE and Tasks Member Role: Primary Care Nurse Name: Aleena Vizcaino RN Position: [facility] RN Member Role: Primary Care Nurse Name: Kacey Wilhelm RN Position: [facility] RN Member Role: Primary Care Nurse Name: Leslie Malloy RN Position: [facility] RN Member Role: Primary Care Nurse Name: Yesenia Hu LPN Position: [facility] RN Member Role: Primary Care Nurse Name: Joaquina Herrera RN Position: [facility] RN Member Role: Primary Care Nurse Name: Diego Bell RN Position: [facility] RN Member Role: Primary Care Nurse Name: Ese Grey Position: [facility] RN Member Role: Primary Care Nurse Name: Chela Najera RN Position: [facility] RN Member Role: Primary Care Nurse Name: Tootie Gonzalez RN Position: [facility] RN Member Role: Primary Care Nurse Name: Nancy Monte RN Position: [facility] RN Member Role: Primary Care Nurse Name: Marilee Starkey Position: [facility] RN Member Role: Primary Care Nurse Name: Silvina Dodd RN Position: [facility] RN Member Role: Primary Care Nurse Name: Flaco Clifford DO Position: [facility] Renal MD Member Role: Lifetime Consulting Physician Address: Address: [address] [place], [place] [address] [place] [address]- Name: Marilee Richardson RN Position: [facility] RN Member Role: Primary Care Nurse Name: Rufino Johnson RN Position: [facility] RN Member Role: Primary Care Nurse Name: Judson Larry Position: [facility] RN Member Role: Primary Care Nurse Name: Jovita Camargo RN Position: [facility] RN Member Role: Primary Care Nurse Name: Bruna Pizarro Position: [facility] RN Member Role: Primary Care Nurse Name: Ju Zhu Position: [facility] RN Member Role: Primary Care Nurse Name: Ester Palomares Position: [facility] RN Member Role: Primary Care Nurse Name: Emma Colbert RN Position: [facility] RN Member Role: Primary Care Nurse Name: Hallie Gambino RN Position: [facility] Onco RN Member Role: Primary Care Nurse Name: Maya Ambriz RN Position: [facility] RN Member Role: Primary Care Nurse Name: Bhavna Rendon LPN Position: [facility] RN Member Role: Primary Care Nurse Name: Luis Burton RN Position: [facility] RN Member Role: Primary Care Nurse Name: Jaki Bishop MD Position: [facility] Physician - Primary Care Member Role: PCP Address: Address: [address] [place] [id number]- Name: Lucian Krause RN Position: [facility] RN Member Role: Primary Care Nurse Name: Misty Tariq Position: [facility] RN Member Role: Primary Care Nurse Name: Isaiah Combs RN Position: [facility] RN Member Role: Primary Care Nurse Name: Leslie Ward RN Position: [facility] RN Member Role: Primary Care Nurse Name: Jacki Gomes RN Position: [facility] RN Member Role: Primary Care Nurse Name: Derek Smith RN Position: [facility] RN Member Role: Primary Care Nurse Name: Perri Smith RN Position: [facility] RN Member Role: Primary Care Nurse Name: Mar Brothers RN Position: [facility] RN Member Role: Primary Care Nurse Name: Ivette Shankar RN Position: [facility] RN Member Role: Primary Care Nurse Name: Laura Mary RN Position: [facility] SN RN Member Role: Primary Care Nurse Name: Mary Guillen RN Position: [facility] RN Member Role: Primary Care Nurse Name: Octavio Box RN Position: [facility] RN Member Role: Primary Care Nurse Name: Nazia Tapia RN Position: [facility] RN Member Role: Primary Care Nurse Name: Pat Jackson RN Position: [facility] RN Member Role: Primary Care Nurse Name: Caren Hernandez RN Position: [facility] RN Supsanchez Member Role: Primary Care Nurse Name: Nely Wong RN Position: [facility] RN Member Role: Primary Care Nurse Name: Erica Brandon RN Position: [facility] RN Member Role: Primary Care Nurse Name: Adrianna Gonzalez RN Position: [facility] RN Member Role: Primary Care Nurse Name: Annmarie Feldman RN Position: [facility] PCO w/OE and EZ Script Member Role: Primary Care Nurse Name: Chinyere Espinoza RN Position: [facility] RN Member Role: Primary Care Nurse Name: Teresita Diallo RN Position: [facility] RN Member Role: Primary Care Nurse Name: Tennille Mcgarry RN Position: [facility] Hospital Stain Wiper Member Role: Primary Care Nurse Name: Vicky Salazar RN Position: [facility] RN Member Role: Primary Care Nurse Name: Spencer Jameson RN Position: [facility] RN Member Role: Primary Care Nurse Name: Jalen Mullins Position: [facility] RN Member Role: Primary Care Nurse Care Team Related Persons Name: MARYANNE KELLER Address: home [address] [place] [address] Name: MARYANNE KELLER Address: [address] [place] [id number] Name: MARYANNE KELLER JR Address: home [address] [place] [address] Name: GEORGIA KELLER Address: [place] [address] Name: BALDEV POLANCO Address: [place] [address]
--- OUTSIDE RECORDS SUMMARY | 2023-02-09 22:37 | XMS_ITS | Continuity of Care Document ---
Author Name Unknown Organization [facility] ter Address [address] [place] [address]- Care Team Providers Care Surface Hydrologist Name Role Phone Dario HAYDEN, Jaki Primary Care Physician [facility]22 - 03/05/[address] [address] [[email or web address] Allergies, Adverse Reactions, Alerts Substance Reaction Severity [...] to COVID vaccine 2Admin Note: VIS GIVEN [id number] 3Admin Note: VIS GIVEN 2008- 4Admin Note: [...] 02/02/22 9:36:00 EST, Route to Pharmacy Electronically, [facility] [id number], Partial fill upon patient request if the prescri... Start Date: 02/02/22 Status: Ordered cloNIDine 0.1 mg oral tablet 0.05 mg, 0.5, tablet, By Mouth, Daily, # 15 tablet, Refills 0, Tot. Refills 0, Maintenance, 02/02/22 9:36:00 EST, Route to Pharmacy Electronically, [facility] [id number], Partial fill upon patient request if the prescription i... Start Date: 02/02/22 Status: Ordered Coreg 6.25 mg oral tablet 6.25 mg, 1, tablet, By Mouth, 2 times a day, # 60 tablet, Refills 0, Tot. Refills 0, Maintenance, 02/02/22 9:36:00 EST, Route to Pharmacy Electronically, [facility] [id number], Partial fill upon patient request if the prescrip... Start Date: 02/02/22 Status: Ordered Creon 12,000 units oral delayed release capsule 1 capsule, By Mouth, 3 times a day, # 90 capsule, 0 Refills, Maintenance, 02/02/22 9:39:00 EST, EC Capsule, [facility] [id number], Partial fill upon patient request if the prescription is for a schedule II opioid drug., 167, c... Start Date: 02/02/22 Status: Ordered divalproex sodium 500 mg oral enteric coated tablet 1 tablet = 500 mg, By Mouth, 2 times a day, # 60 tablet, 0 Refills, Maintenance, 02/02/22 9:36:00 EST, Tablet, [facility] [id number], Partial fill upon patient request if theprescription is for a schedule II opioid drug., 167... Start Date: 02/02/22 Status: Ordered folic acid 1 mg oral tablet 1 mg, 1, tablet, By Mouth, Daily, # 30 tablet, Refills 1, Tot. Refills 1, Maintenance, 02/02/22 9:36:00 EST, Route to Pharmacy Electronically, [facility] [id number], Partial fill upon patient request if the [...] 02/02/22 9:37:00 EST, Route to Pharmacy Electronically, [facility] [id number], Partialfill upon patient request if the prescription is fo... Start Date: 02/02/22 Status: Ordered melatonin 3 mg oral tablet 1 tablet = 3 mg, By Mouth, Daily at bedtime, PRN Insomnia, # 30 tablet, 0 Refills, Maintenance, 02/02/22 9:37:00 EST, Tablet, [facility] [id number], Partial fill upon patientrequest if the prescription [...] 02/02/22 9:39:00 EST, Route to Pharmacy Electronically, [facility] [id number],Partial fill upon patient request if the prescripti... Start Date: 02/02/22 Status: Ordered torsemide 20 mg oral tablet 1 tablet = 20 mg, By Mouth, 2 times a day, # 60 tablet, 0 Refills, Maintenance, 02/02/22 9:40:00 EST, Tablet, [place], [place] - [id number], Partial fill upon patient request if the [...] Type: Cigarettes entered on: 06/29/21 Sex Female Patient Care team information Care Team Personnel Name: Daniel Gamino RN Position: S RN Member Role: Primary Care Nurse Name: Lawrence Hendrix Position: S RN Supv Member Role: Primary Care Nurse Name: Rufino Lloyd RN Position: S RN Member Role: Primary Care Nurse Name: Cristina Carpenter RN Position: S RN Member Role: Primary Care Nurse Name: Rosette Noriega RN Position: [facility] SN RN Member Role: Primary Care Nurse Name: Mary Hidalgo RN Position: [facility] PCO RN Member Role: Primary Care Nurse Name: Sissy Duran RN Position: [facility] AMB Nurse Member Role: Primary Care Nurse Name: Rohit Zavaleta RN Position: [facility] RN Member Role: Primary Care Nurse Name: Erlinda Hartman NP Position: [facility] Associate Professional Member Role: Primary Care Nurse Address: Address: [address] [place] [id number] Name: Jong Suazo RN Position: [facility] RN Supv Member Role: Primary Care Nurse Name: Shante Solis RN Position: [facility] RN Member Role: Primary Care Nurse Name: Bettie Vanegas RN Position: [facility] RN Member Role: Primary Care Nurse Name: Jay Marroquin RN Position: [facility] RN Member Role: Primary Care Nurse Name: Sue Purdy RN Position: [facility] RN Member Role: Primary Care Nurse Name: Hector Perez RN Position: [facility] RN Member Role: Primary Care Nurse Name: Aleena Vizcaino RN Position: [facility] RN Member Role: Primary Care Nurse Name: Kacey Wilhelm RN Position: [facility] RN Member Role: Primary Care Nurse Name: Monalisa Barker Position: [facility] RN Member Role: Primary Care Nurse Name: Leslie Malloy RN Position: [facility] RN Member Role: Primary Care Nurse Name: Joaquina Herrera RN Position: [facility] RN Member Role: Primary Care Nurse Name: Diego Bell RN Position: [facility] RN Member Role: Primary Care Nurse Name: Ese Grey Position: [facility] RN Member Role: Primary Care Nurse Name: Chela Najera RN Position: [facility] RN Member Role: Primary Care Nurse Name: Tootie Gonzalez RN Position: [facility] RN Member Role: Primary Care Nurse Name: Nancy Monte RN Position: [facility] RN Member Role: Primary Care Nurse Name: Marilee Starkey Position: [facility] RN Member Role: Primary Care Nurse Name: Silvina Dodd RN Position: [facility] RN Member Role: Primary Care Nurse Name: Flaco Clifford DO Position: [facility] Renal MD Member Role: Lifetime Consulting Physician Address: Address: [address] [place] [address] [address] [facility] [place] [address]- Name: Marilee Richardson RN Position: [facility] RN Member Role: Primary Care Nurse Name: Rufino Johnson RN Position: S RN Member Role: Primary Care Nurse Name: Jovita Camargo RN Position: [facility] RN Member Role: Primary Care Nurse Name: Ju Zhu Position: S RN Member Role: Primary Care Nurse Name: Ester Palomares Position: [facility] RN Member Role: Primary Care Nurse Name: Emma Colbert RN Position: [facility] RN Supv Member Role: Primary Care Nurse Name: Hallie Gambino RN Position: [facility] Oncbobo RN Member Role: Primary Care Nurse Name: Maya Ambriz RN Position: [facility] RN Member Role: Primary Care Nurse Name: Luis Burton RN Position: [facility] RN Member Role: Primary Care Nurse Name: Jaki Bishop MD Position: [facility] Primary Care Physician Member Role: PCP Address: Address: [address] [place] [address]- Name: Leslie Ward RN Position: [facility] RN Member Role: Primary Care Nurse Name: Jacki Gomes RN Position: [facility] RN Member Role: Primary Care Nurse Name: Ximena Saab RN Position: [facility] RN Member Role: Primary Care Nurse Name: Ivette Shankar RN Position: [facility] RN Supv Member Role: Primary Care Nurse Name: Laura Mary RN Position: [facility] SN RN Member Role: Primary Care Nurse Name: Octavio Box RN Position: [facility] RN Member Role: Primary Care Nurse Name: Caren Hernandez RN Position: [facility] RN Supv Member Role: Primary Care Nurse Name: Kinza De La Cruz RN Position: [facility] RN Member Role: Primary Care Nurse Name: Veronica Queen RN Position: [facility] RN Member Role: Primary Care Nurse Name: Nely Wong RN Position: [facility] RN Member Role: Primary Care Nurse Name: Eriac Brandon RN Position: [facility] RN Member Role: Primary Care Nurse Name: Adrianna Gonzalez RN Position: [facility] RN Member Role: Primary Care Nurse Name: Annmarie Feldman RN Position: [facility] PCO w/OE and EZ Script Member Role: Primary Care Nurse Name: Chinyere Espinoza RN Position: [facility] RN Member Role: Primary Care Nurse Name: Imani RAMIREZ, Teresita Reyes Position: [facility] RN Member Role: Primary Care Nurse Name: Tennille Mcgarry RN Position: [facility] Hospital Call Specialist Member Role: Primary Care Nurse Name: Vicky Salazar RN Position: [facility] RN Member Role: Primary Care Nurse Name: Jalen Mullins Position: [facility] RN Member Role: Primary Care Nurse Care Team Related Persons Name: MARYANNE KELLER Address: [address] [place] [address] Name: MARYANNE KELLER Address: home [address] [facility] [facility] [place] [id number] Name: GEORGIA KELLER Address: [place] [address] Name: BALDEV POLANCO Address: [place] [address]
--- OUTSIDE RECORDS SUMMARY | 2023-02-09 22:37 | XMS_ITS | Continuity of Care Document ---
Author Name Unknown Organization [facility] Address [address] [place] [address]- Care Team Providers Care Paper Sheeter Name Role Phone Jaki Bishop MD Primary Care Physician [facility] Date[facility]): 04/15/22 - 05/15/[address] [address]- Allergies, Adverse Reactions, Alerts Substance Reaction Severity [...] to COVID vaccine 2Admin Note: VIS GIVEN [id number] 3Admin Note: VIS GIVEN 2008- 4Admin Note: [...] 04/29/22 14:29:00 EST, Route to Pharmacy Electronically, [facility] [id number], Partial fill upon patient request if the prescr... Start Date: 04/29/22 Stop Date: 08/27/22 Status: Ordered cloNIDine 0.1 mg oral tablet 0.1 mg, 1, tablet, By Mouth, Daily, # 30 tablet, Refills 3, Tot. Refills 3, Maintenance, 04/29/22 14:29:00 EST, Route to Pharmacy Electronically, [facility] [id number], Partial fill upon patient request if the prescription is... Start Date: 04/29/22 Stop Date: 08/27/22 Status: Ordered Coreg 6.25 mg oral tablet 6.25 mg, 1, tablet, By Mouth, 2 times a day, # 60 tablet, Refills 3, Tot. Refills 3, Maintenance, 04/29/22 14:29:00 EST, Route to Pharmacy Electronically, [facility] [id number], Partial fill upon patient request if the prescri... Start Date: 04/29/22 Stop Date: 08/27/22 Status: Ordered Creon 12,000 units oral delayed release capsule 1 capsule, By Mouth, 3 times a day, # 90 capsule, 3 Refills, Maintenance, 04/29/22 14:37:00 EST, ECCapsule, [facility] [id number], Partial fill upon patient request if the prescription is for a schedule II opioid drug., 167,... Start Date: 04/29/22 Status: Ordered diphenhydrAMINE 25 mg oral tablet 1 tablet = 25 mg, By Mouth, 3 times a day, for 30 days, PRN Agitation, # 90 tablet, 1 Refills, Acute 06/28/22 15:55:00 EDT, 04/29/22 15:55:00 EST, Tablet, [facility] [id number], Partial fill upon patient request if the prescri... Start Date: 04/29/22 Stop Date: 06/28/22 Status: Ordered divalproex sodium 500 mg oral enteric coated tablet 1 tablet = 500 mg, By Mouth, 2 times a day, # 60 tablet, 3 Refills, Maintenance, 04/29/22 14:33:00 EST, Tablet, [facility] [id number], Partial fill upon patient request if the prescription is for a schedule II opioid drug., 16... Start Date: 04/29/22 Stop Date: 08/27/22 Status: Ordered folic acid 1 mg oral tablet 1 mg, 1, tablet, By Mouth, Daily, # 30 tablet, Refills 1, Tot. Refills 1, Maintenance, 04/29/22 14:34:00 EST, Route to Pharmacy Electronically, [facility] [id number], Partialfill upon patient request if the prescription [...] 0 Refills, Maintenance, 04/08/22 16:16:00 EST, Liquid, [facility] [place], [place] - [id number], Partial fill upon patient request if the [...] 2 Refills, Maintenance, 04/29/22 14:34:00 EST, Solution, [facility] [id number], Partial fill upon patient request if the prescription is for a schedule II opioid drug.,... Start Date: 04/29/22 Status: Ordered multivitamin Multiple Vitamins oral tablet 1 tablet, By Mouth, Daily, # 90 tablet, 1 Refills, Maintenance, 04/02/22 16:44:00 EST, Tablet, [facility] [id number], Partial fill upon patient request if the [...] 04/29/22 14:39:00 EST, Route to Pharmacy Electronically, [facility] [id number], Partial fill upon patient request if the prescription... Start Date: 04/29/22 Stop Date: 08/27/22 Status: Ordered risperiDONE 3 mg oral tablet 3 mg, 1, tablet, By Mouth, Daily at bedtime, # 30 tablet, Refills 3, Tot. Refills 3, Maintenance, 04/29/22 14:39:00 EST, Route to Pharmacy Electronically, [facility] [id number], Partial fill upon patient request if the prescri... Start Date: 04/29/22 Status: Ordered thiamine 100 mg oral tablet 100 mg, 1, tablet, By Mouth, Daily, for 30 days, # 30 tablet, Refills 3, Tot. Refills 3, Acute 08/27/22 14:40:00 EDT, 04/29/22 14:40:00 EST, Route to Pharmacy Electronically, [place], [place] - [id number], Partial fill upon patient re... Start Date: 04/29/22 Stop Date: 08/27/22 Status: Ordered tiotropium 2.5 mcg/inh inhalation aerosol 2 puffs, Inhalation, Daily, # 1 each, 0 Refills, Maintenance, 03/25/22 12:09:00 EST, Inhaler, [facility], Partial fill upon patient request [...] Care Team Personnel Name: Lawrence Hendrix Position: [facility] RN Supv Member Role: Primary Care Nurse Name: Rufino Lloyd RN Position: [facility] RN Member Role: Primary Care Nurse Name: Cristina Carpenter RN Position: [facility] RN Member Role: Primary Care Nurse Name: Rosette Noriega RN Position: [facility] SN RN Member Role: Primary Care Nurse Name: Mary Hidalgo RN Position: [facility] PCO RN Member Role: Primary Care Nurse Name: Sissy Duran RN Position: [facility] AMB Nurse Member Role: Primary Care Nurse Name: Rohit Zavaleta RN Position: [facility] RN Member Role: Primary Care Nurse Name: Erlinda Hartman NP Position: [facility] Associate Professional Member Role: Primary Care Nurse Address: Address: [address] [place] [address] Name: Jong Suazo RN Position: [facility] RN Supv Member Role: Primary Care Nurse Name: Shante Solis RN Position: [facility] RN Member Role: Primary Care Nurse Name: Joshua Prakash RN Position: [facility] RN Member Role: Primary Care Nurse Name: Bettie Vanegas RN Position: [facility] RN Member Role: Primary Care Nurse Name: Jay Marroquin RN Position: [facility] RN Member Role: Primary Care Nurse Name: Adrianna Church RN Position: [facility] RN Member Role: Primary Care Nurse Name: Sue Purdy RN Position: [facility] RN Member Role: Primary Care Nurse Name: Hector Perez RN Position: [facility] RN Member Role: Primary Care Nurse Name: Aleena Vizcaino RN Position: [facility] RN Member Role: Primary Care Nurse Name: Kacey Wilheml RN Position: [facility] RN Member Role: Primary Care Nurse Name: Monalisa Barker LPN Position: [facility] AMB Nurse Member Role: Primary Care Nurse Name: Leslie Malloy RN Position: [facility] RN Member Role: Primary Care Nurse Name: Yesenia Hu LPN Position: [facility] RN Member Role: Primary Care Nurse Name: Joaquina Herrera RN Position: [facility] RN Member Role: Primary Care Nurse Name: Diego Bell RN Position: [facility] RN Member Role: Primary Care Nurse Name: Ese Grey Position: [facility] RN Member Role: Primary Care Nurse Name: Chela Najera RN Position: [facility] RN Member Role: Primary Care Nurse Name: Tootie Gonzalez RN Position: [facility] RN Member Role: Primary Care Nurse Name: Nancy Monte RN Position: [facility] RN Member Role: Primary Care Nurse Name: Marilee Starkey Position: [facility] RN Member Role: Primary Care Nurse Name: Silvina Dodd RN Position: [facility] RN Member Role: Primary Care Nurse Name: Flaco Clifford DO Position: [facility] Renal MD Member Role: Lifetime Consulting Physician Address: Address: [address] [place] [address] [facility] [place], [place] [address] Name: Marilee Richardson RN Position: [facility] RN Member Role: Primary Care Nurse Name: Rufino Johnson RN Position: [facility] RN Member Role: Primary Care Nurse Name: Jovita Camargo RN Position: [facility] RN Member Role: Primary Care Nurse Name: Ju Zhu Position: [facility] RN Member Role: Primary Care Nurse Name: Ester Palomares Position: [facility] RN Member Role: Primary Care Nurse Name: Emma Colbert RN Position: [facility] RN Supv Member Role: Primary Care Nurse Name: Hallie Gambino RN Position: [facility] Onco RN Member Role: Primary Care Nurse Name: Maya Ambriz RN Position: [facility] RN Member Role: Primary Care Nurse Name: Bhavna Rendon LPN Position: [facility] RN Member Role: Primary Care Nurse Name: Luis Burton RN Position: [facility] RN Member Role: Primary Care Nurse Name: Jaki Bishop MD Position: [facility] Primary Care Physician Member Role: PCP Address: Address: [address] [place] [id number]- Name: Lucian Krause RN Position: [facility] RN Member Role: Primary Care Nurse Name: Leslie Ward RN Position: [facility] RN Member Role: Primary Care Nurse Name: Jacki Gomes RN Position: [facility] RN Member Role: Primary Care Nurse Name: Ximena Saab RN Position: [facility] RN Member Role: Primary Care Nurse Name: Ivette Shankar RN Position: [facility] RN Supv Member Role: Primary Care Nurse Name: Laura Mary RN Position: [facility] SN RN Member Role: Primary Care Nurse Name: Octavio Box RN Position: [facility] RN Member Role: Primary Care Nurse Name: Nazia Tapia RN Position: [facility] RN Member Role: Primary Care Nurse Name: Caren Hernandez RN Position: [facility] RN Supv Member Role: Primary Care Nurse Name: Veronica Queen RN Position: [facility] RN Member Role: Primary Care Nurse Name: Perri Bryant RN Position: [facility] RN Member Role: Primary Care Nurse Name: Alba Toro RN Position: [facility] RN Member Role: Primary Care Nurse Name: Nely Wong RN Position: [facility] RN Member Role: Primary Care Nurse Name: Erica Brandon RN Position: [facility] RN Member Role: Primary Care Nurse Name: Adrianna Gonzalez RN Position: [facility] RN Member Role: Primary Care Nurse Name: Annmarie Feldman RN Position: [facility] PCO w/OE and EZ Script Member Role: Primary Care Nurse Name: Chinyere Espinoza RN Position: [facility] RN Member Role: Primary Care Nurse Name: Teresita Diallo RN Position: [facility] RN Member Role: Primary Care Nurse Name: Tennille Mcgarry RN Position: [facility] Hospital Gut Sorter Member Role: Primary Care Nurse Name: Vicky Salazar RN Position: [facility] RN Member Role: Primary Care Nurse Name: Spencer Jameson RN Position: [facility] RN Member Role: Primary Care Nurse Name: Jalen Mullins Position: [facility] RN Member Role: Primary Care Nurse Care Team Related Persons Name: ARIANNA MARYANNE Address: [address] [place] [address] Name: MARYANNE KELLER Address: home [address] [address] Name: MARYANNE KELLER JR Address: [address] [place] [address] Name: GEORGIA KELLER Address: [place] [address] Name: BALDEV POLANCO Address: [place] [address]
--- OUTSIDE RECORDS SUMMARY | 2023-02-09 22:37 | XMS_ITS | Continuity of Care Document ---
Author Name Unknown Organization [facility] Address [address] [place] [address]- Care Team Providers Care Java Designer Name Role Phone Jaki Bishop MD Primary Care Physician [facility] Date[facility]): 07/30/20 - 08/29/[address] [address]- Allergies, Adverse Reactions, Alerts Substance Reaction Severity [...] Given Permanently Refused 1Admin Note: VIS GIVEN [id number] 2Admin Note: VIS GIVEN 2008-12 3Admin Note: vis 4Admin Note: vis 02/06/08 Medications acetaminophen 325 mg oral tablet 1, tablet, By Mouth, 4 times a day, PRN, not to exceed 4 TABLETS PER DAY. Not to exceed 2000 mg/day. PRN Pain, # 60 tablet, Refills 5, Tot. Refills 5, Maintenance, NEEDED, 08/14/20 16:55:00 EDT, Route to Pharmacy Electronically, [facility]... Start Date: 08/14/20 Status: Ordered Clozaril 100 [...] EST, Route to Pharmacy Electronically, [facility] [id number], Partial fill upon patient request if the prescr... Start Date: 05/26/20 Stop Date: 11/22/20 Status: Ordered gabapentin 100 mg oral capsule 200 mg, 2, capsule, By Mouth, 2 times a day, # 120 capsule, Refills 5, Tot. Refills 5, Maintenance,05/28/20 13:46:00 EST, Route to Pharmacy Electronically, [facility] [id number], Partial fill upon patient request if the presc... Start Date: 05/28/20 Status: Ordered Humalog Kwik Pen 100 units/mL subcutaneous injection See Instructions, 3 Units for bood sugar above 120 mg/dl and then add 2 Units for every 50 mg/dl rise above 120. Three times a day before meals., # 15 mL, 1 Refills, Maintenance, 04/16/20 11:07:00 EST, [facility] [id number],... Start Date: 04/16/20 Status: Ordered lactulose 10 [...] 1 Refills, Maintenance, 08/20/20 16:55:00 EDT, Solution, [facility], [facility] [id number], 168, cm, 04/16/20 8:30:00 EST, Height, 98.7, kg, 03/22... Start Date: 08/20/20 Status: Ordered loratadine 10 mg oral tablet See Instructions, TAKE ONE TABLET BY MOUTH DAILY, # 30 tablet, Refills 5, Tot. Refills 5, 05/01/20 8:18:00 EST, Instructions Replace Required Details, Route to Pharmacy Electronically, [facility], [facility] [id number], 168, cm, 04/16/20... Start Date: 05/01/20 Status: [...] 5 Refills, Maintenance, 07/14/20 16:30:00 EDT, Tablet, [facility] [id number], this is an increased, 1 tablet By Mouth 2 times a day,x30 days, 168, cm, 04/16/20 8:30:00 EST, Heigh... Start Date: 07/14/20 Stop Date: 01/10/21 Status: Ordered torsemide 20 mg oral tablet 1 tablet = 20 mg, By Mouth, Daily, # 30 tablet, 1 Refills, Maintenance, 04/16/20 11:09:00 EST, Tablet, [facility] [id number], Partial fill upon patient request if the prescription is for a schedule II opioid drug., 168, cm, 01... Start Date: 04/16/20 Stop Date: 04/11/21 Status: Ordered Zenpep 10,000 units-32,000 units-42,000 units oral delayed release capsule 1 capsule, By Mouth, 3 times a day, # 90 capsule, 0 Refills, Maintenance, 04/16/20 11:09:00 EST, [facility] [id number], 1 capsule By Mouth 3 times a [...] Active H/O tubal ligation(Confirmed) Active [facility] Medical Director/Janet salvador [facility] [phone](Confirmed) Active History of cholecystectomy(Confirmed) Active Hypertension(Confirmed) Active [...]
--- OUTSIDE RECORDS SUMMARY | 2023-02-09 22:37 | XMS_ITS | Continuity of Care Document ---
Author Name Unknown Organization [facility] Address [address] [place] [address]- Care Team Providers Care Tower Supervisor Name Role Phone Jaki Bishop MD Primary Care Physician [facility]): 12/15/20 - 01/14/[address] [address] Allergies, Adverse Reactions, Alerts Substance Reaction [...] to COVID vaccine 2Admin Note: VIS GIVEN [id number] 3Admin Note: VIS GIVEN 2008-12 4Admin Note: vis 5Admin Note: vis 02/06/08 Medications acetaminophen 325 mg oral tablet 650 mg, By Mouth, Every 6 hours, PRN, /Headache, Refills 0, Maintenance, Pain , Mild, 09/26/20 21:44:00 EDT, Partial fill upon patient request if the prescription is for a schedule II opioid drug. Start Date: 09/26/20 Status: Ordered Basaglar KwikPen 100 units/mL subcutaneous solution = 10 units, Subcutaneous Injection, Daily at bedtime, # 10 mL, 0 Refills, Maintenance, 11/28/20 9:22:00 EDT, Solution, [facility], Partial fill upon patient request if the prescription is for a schedule II opioid drug., 167.64, cm, 11/27... Start Date: 11/28/20 Status: Ordered benztropine 0.5 mg oral tablet 0.5 mg, 1, tablet, By Mouth, 2 times a day, # 60 tablet, Refills 0, Tot. Refills 0, Maintenance, 11/28/20 9:27:00 EDT, Route to Pharmacy Electronically, [facility], Partial fill upon patient request if the prescription is for a schedule... Start Date: 11/28/20 Status: Ordered Cane See Instructions, # 1 each, Maintenance, [id number], includes canes of all materials, adjustable orfixed, with tip, 11/28/20 9:32:00 EDT, Supply, 167.64, cm, 11/27/20 22:30:00 EDT, Height, 98.5, kg,10/22/20 17:50:00 EDT, Dry Weight Start Date: 11/28/20 Status: Ordered clozapine 100 mg oral tablet 1 tablet = 100 mg, By Mouth, 2 times a day, # 60 tablet, 0 Refills, Maintenance, 11/28/20 9:20:00 EDT, Tablet, [facility], Partial fill upon patient request if the prescription is for aschedule II opioid drug., 167.64, cm, 11/27/20 22:3... Start Date: 11/28/20 Status: Ordered Coreg 12.5 mg oral tablet 12.5 mg, 1, tablet, By Mouth, 2 times a day, # 60 tablet, Refills 0, Tot. Refills 0, Maintenance, 11/28/20 9:20:00 EDT, Route to Pharmacy Electronically, [facility], Partial fill upon patient request if the prescription is for a schedule... Start Date: 11/28/20 Status: Ordered Freestyle InsuLinx Glucose Meter See Instructions, # 1 each, Maintenance, Use to monitor blood sugar, 11/28/20 9:57:00 EDT, Supply, 167.64, cm, 11/27/20 22:30:00 EDT, Height, 98.5, kg, 10/22/20 17:50:00 EDT, Dry Weight Start Date: 11/28/20 Status: Ordered Freestyle Lite Lancets See Instructions, # 600 each, Refills 2, Tot. Refills 2, Maintenance, use as directed for Type 2 Diabetes Mellitus, 11/28/20 9:59:00 EDT, Supply, 167.64, cm, 11/27/20 22:30:00 EDT, Height, 98.5, kg, 10/22/20 17:50:00 EDT, Dry Weight Start Date: 11/28/20 Stop Date: 08/25/21 Status: Ordered Freestyle Lite Test Strips See Instructions, # 200 each, Tot. Refills 5, Maintenance, use as directed for Type 2 Diabetes Mellitus, 11/28/20 9:57:00 EDT, Supply, 167.64, cm, 11/27/20 22:30:00 EDT, Height, 98.5, kg, 10/22/20 17:50:00 EDT, Dry Weight Start Date: 11/28/20 Stop Date: 12/28/20 Status: Ordered insulin lispro 100 u/ml subcutaneous injection 3-11 units, Subcutaneous Injection, 3 times a day before meals, << Sliding Scale Comments >> 120 - 169 3 units Call if less than 100 170 - 219 5 units 220 - 269 7 units 270 - 319 9 units 320 - 369 11 units Call if greater than 400 <... Start Date: 11/28/20 Stop Date: 01/27/21 Status: Ordered lactulose 10 gm/15 ml oral syrup 30 mL = 20 Gm, By Mouth, 2 times a day, for 30 days, # 1,800 mL, 1 Refills, Acute 01/27/21 9:24:00 EST, 11/28/20 9:24:00 EDT, Syrup, [facility], Partial fill upon patient request if theprescription is for a schedule II opioid drug., 30... Start Date: 11/28/20 Stop Date: 01/27/21 Status: Ordered loratadine 10 mg oral tablet 10 mg, 1, tablet, By Mouth, Daily, # 30 tablet, Refills 0, Tot. Refills 0, Maintenance, 11/28/20 9:25:00 EDT, Route to Pharmacy Electronically, [facility], Partial fill upon patient request if [...] a day, # 60 tablet, 0 Refills, [facility], 167.64, cm, 11/27/20 22:30:00 EDT, Height, 98.5, kg, 10/22/20 17:50:00 EDT, Dry Weight Start Date: 01/08/21 Status: Ordered Nicotine 2 mg gum = 2 mg, Chew, Every 2 hours, PRN Other, for 6 week(s), Nicotine Cravings, # 40 each, 1 Refills, Acute 02/20/21 9:25:00 EST, 11/28/20 9:25:00 EDT, Gum, [facility], Partial fill upon patient request if the prescription is for a schedule II... Start Date: 11/28/20 Stop Date: 02/20/21 Status: Ordered pancrelipase 10,000 units-32,000 units-42,000 units oral delayed release capsule 1 capsule, By Mouth, 3 times a day, with each meal and snack, # 90 capsule, 0 Refills, Maintenance,11/28/20 9:26:00 EDT, CR Capsule, [facility], Partial fill upon patient request if the prescription is for a schedule II opioid drug., 1... Start Date: 11/28/20 Stop Date: 12/28/20 Status: Ordered pantoprazole 40 mg oral delayed [...] 0 Refills, Maintenance, 11/28/20 9:27:00 EDT, Nasal [place], [facility], Partial fill upon patient request if the prescription is for a schedule II opioid drug., 2 sprays... Start Date: 11/28/20 Stop Date: 12/28/20 Status: Ordered torsemide 20 mg oral tablet 1 tablet = 20 mg, By Mouth, Daily, # 30 tablet, 0 Refills, Maintenance, 11/28/20 9:27:00 EDT, Tablet, [facility], Partial fill upon patient request if the prescription is for a scheduleII opioid drug., 167.64, cm, 11/27/20 22:30:00 EDT,... Start Date: 11/28/20 Stop Date: 12/28/20 Status: Ordered Problem List Condition Effective Dates [...] Active H/O tubal ligation(Confirmed) Active [facility] Retirement Specialist/Janet salvador [facility] [phone](Confirmed) Active History of cholecystectomy(Confirmed) Active Hypertension(Confirmed) Active [...]
--- OUTSIDE RECORDS SUMMARY | 2023-02-09 22:37 | XMS_ITS | Continuity of Care Document ---
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 Hypothermia(Final) - 01/10/22 Hypoglycemia(Final) - 01/10/22 Hypokalemia(Final) - 01/10/22 Discharge Disposition: Transfer to Psych Facility Attending Physician: Shelli Becerra MD Admitting Physician: Shimon Lomeli MD Referring Physician: Not on Staff, Referring [...] to COVID vaccine 2Admin Note: VIS GIVEN [id number] 3Admin Note: VIS GIVEN 2008-12 4Admin Note: vis 5Admin Note: vis 02/06/08 Medications acetaminophen 325 mg oral tablet 650 mg, By Mouth, Every 4 hours, PRN, Temperature Greater than 100.5, Refills 0, Maintenance, Pain , Mild, 01/20/22 16:42:00 EDT, Partial fill upon patient request if the prescription is for a schedule II opioid drug. Start Date: 01/20/22 Status: Ordered Acetaminophen Tablet 650 mg, Tablet, By Mouth, Every 4 hours, PRN for Pain , Mild, Temperature Greater than 100.5, Routine, 01/10/22 18:45:00 EDT Start Date: 01/10/22 Stop Date: 01/20/22 Status: Discontinued benztropine 1 mg oral tablet 0.5 mg, 0.5, tablet, By Mouth, 2 times a day, Refills 0, Maintenance, 01/20/22 16:42:00 EDT, Partial fill upon patient request if the prescription is for a schedule II opioid drug. Start Date: 01/20/22 Status: Ordered cloNIDine 0.1 mg oral tablet 0.1 mg, 1, tablet, By Mouth, Daily, Refills 0, Maintenance, 01/20/22 16:44:00 EDT, Partial fill upon patient request if the prescription is for a schedule II opioid drug. Start Date: 01/20/22 Status: Ordered Coreg 6.25 mg oral tablet 6.25 mg, Tablet, By Mouth, 01/20/22 9:00:00 EDT Start Date: 01/20/22 Stop Date: 01/20/22 Status: Completed Coreg 6.25 mg oral tablet 6.25 mg, Tablet, By Mouth, 01/19/22 21:00:00 EDT Start Date: 01/19/22 Stop Date: 01/19/22 Status: Completed Coreg 6.25 mg oral tablet 6.25 mg, 1, tablet, By Mouth, 2 times a day, Refills 0, Maintenance, 01/20/22 16:42:00 EDT, Partialfill upon patient request if the prescription is for a schedule II opioid drug. Start Date: 01/20/22 Status: Ordered divalproex sodium 500 mg oral enteric coated tablet = 500 mg, By Mouth, 2 times a day, 0 Refills, Maintenance, 01/20/22 16:42:00 EDT, Tablet, Partial fill upon patient request if the prescription is for a schedule II opioid drug. Start Date: 01/20/22 Status: Ordered Docusate/Senna Tablet 1 tablet, By Mouth, 2 times a day, PRN Constipation, 0 Refills, Maintenance, 01/20/22 16:44:00 EDT,Tablet, Partial fill upon patient request if the prescription is for a schedule II opioid drug. Start Date: 01/20/22 Status: Ordered folic acid 1 mg oral tablet 1 mg, 1, tablet, By Mouth, Daily, # 30 tablet, Refills 1, Tot. Refills 1, Maintenance, 10/21/21 12:44:00 EDT, Route to Pharmacy Electronically, [place], [place] - [phone], Partialfill upon patient request if the prescription is fo... Start Date: 10/21/21 Status: Ordered Glucose Gel = 15 Gm, By Mouth, Every 20 minutes, PRN Blood Glucose, 50 to 70 and patient ALERT, 0 Refills, Maintenance, 01/20/22 16:44:00 EDT, Gel, Partial fill upon patient request if the prescription is for a schedule II opioid drug. Start Date: 01/20/22 Status: Ordered Insulin Lispro KwikPen 100 units/mL [...] 2 times a day, 0 Refills, Maintenance, 01/20/22 16:43:00 EDT, Syrup, Partial fill upon patient request if the prescription is for a schedule II opioid drug. Start Date: 01/20/22 Status: Ordered Lantus Solostar Pen 100 units/mL subcutaneous solution = 16 units, Subcutaneous Infusion, Daily, # 15 mL, 5 Refills, Maintenance, 09/11/21 17:25:00 EDT, [place], [place] - [phone], Partial fill upon patient request if the prescriptionis for a schedule II opioid drug., 167, cm, ... Start Date: 09/11/21 Status: Ordered losartan 50 mg oral tablet 50 mg, Tablet, By Mouth, 01/20/22 9:00:00 EDT Start Date: 01/20/22 Stop Date: 01/20/22 Status: Completed losartan 50 mg oral tablet 50 mg, 1, tablet, By Mouth, Daily, Refills 0, Maintenance, 01/20/22 16:43:00 EDT, Partial fill uponpatient request if the prescription is for a schedule II opioid drug. Start Date: 01/20/22 Status: Ordered melatonin 3 mg oral tablet = 3 mg, By Mouth, Daily at bedtime, PRN Insomnia, 0 Refills, Maintenance, 01/20/22 16:43:00 EDT, Tablet, Partial fill upon patient request if the prescription is for a schedule II opioid drug. Start Date: 01/20/22 Status: Ordered MiraLax Powder 1 pack/packet = 17 Gm, By Mouth, Daily, PRN Constipation, 0 Refills, Maintenance, 01/20/22 16:45:00EDT, Powder, Partial fill upon patient request if the prescription is for a schedule II opioid drug. Start Date: 01/20/22 Status: Ordered Multivitamin Tablet 1 tablet, By Mouth, Daily, 0 Refills, Maintenance, 01/20/22 16:44:00 EDT, Tablet, Partial fill uponpatient request if the prescription is for a schedule II opioid drug. Start Date: 01/20/22 Status: Ordered Nicotine Gum 2 mg, Chew, Every hour, PRN, Nicotine Cravings, Refills 0, Maintenance, Other, 01/20/22 16:45:00 EDT, Partial fill upon patient request if the prescription is for a schedule II opioid drug. Start Date: 01/20/22 Status: Ordered Pancrelipase Capsule 1 capsule = 10,000 units, By Mouth, 3 times a day with meals, 0 Refills, Maintenance, 01/20/22 16:44:00 EDT, Capsule, Partial fill upon patient request if the prescription is for a schedule II opioiddrug. Start Date: 01/20/22 Status: Ordered pantoprazole 40 mg oral delayed release tablet = 40 mg, By Mouth, Daily, 0 Refills, Maintenance, 01/20/22 16:44:00 EDT, EC Tablet Start Date: 01/20/22 Status: Ordered RisperDAL 1 mg oral tablet 2 mg, 2, tablet, By Mouth, 2 times a day, Refills 0, Maintenance, 01/20/22 16:44:00 EDT, Partial fill upon patient request if the prescription is for a schedule II opioid drug. Start Date: 01/20/22 Status: Ordered Robitussin DM Liquid 10 mL, By Mouth, Every 4 hours, PRN Cough, 0 Refills, Maintenance, 01/20/22 16:44:00 EDT, Syrup, Partial fill upon patient request if the prescription is for a schedule II opioid drug. Start Date: 01/20/22 Status: Ordered simethicone 80 mg oral tablet, chewable 80 mg, Chew, 3 times a day, PRN, Refills 0, Maintenance, Gas, 01/20/22 16:44:00 EDT, Partial fill upon patient request if the prescription is for a schedule II opioid drug. Start Date: 01/20/22 Status: Ordered torsemide 20 mg oral tablet 1 tablet = 20 mg, By Mouth, 2 times a day, 0 Refills, Maintenance, 01/20/22 16:44:00 EDT, Tablet, Partial fill upon patient request if the prescription is for a schedule II opioid drug. Start Date: 01/20/22 Status: Ordered Problem List Condition Confirmation Course [...] Results Orders for Microbiology Reports Name Date Blood Culture 01/17/22 Blood Culture 01/15/22 Blood Culture 01/14/22 Blood Culture 01/12/22 Blood Culture #2 01/12/22 Blood Culture 01/10/22 Blood Culture #2 01/10/22 Microbiology Reports TEST:Blood Culture STATUS:Unauthenticated BODY SITE: SOURCE:Blood COLLECTED DATE/TIME:01/17/22 2:13 PM Blood Culture SPECIMEN DESCRIPTION : BLOOD L ARM SPECIAL REQUESTS : NONE CULTURE : NO GROWTH 3 DAYS REPORT STATUS : PRELIMINARY REPORT TEST:Blood Culture STATUS:Auth (Verified) BODY SITE: SOURCE:Blood COLLECTED DATE/TIME:01/15/22 3:24 PM Blood Culture SPECIMEN DESCRIPTION : BLOOD LEFT HAND SPECIAL REQUESTS : NONE CULTURE : NO GROWTH 5 DAYS. REPORT STATUS : FINAL 01/20/2022 TEST:Blood Culture STATUS:Auth (Verified) BODY SITE: SOURCE:Blood COLLECTED DATE/TIME:01/14/22 12:43 AM Blood Culture SPECIMEN DESCRIPTION : BLOOD LEFT AC SPECIAL REQUESTS : NONE CULTURE : NO GROWTH 5 DAYS. REPORT STATUS : FINAL 01/19/2022 TEST:Blood Culture STATUS:Auth (Verified) BODY SITE: SOURCE:Blood COLLECTED DATE/TIME:01/12/22 9:20 AM Blood Culture SPECIMEN DESCRIPTION : BLOOD NOSITE SPECIAL REQUESTS : NONE CULTURE : NO GROWTH 5 DAYS. REPORT STATUS : FINAL 01/17/2022 TEST:Blood Culture, Second Order STATUS:Auth (Verified) BODY SITE: SOURCE:Blood COLLECTED DATE/TIME:01/12/22 9:20 AM Blood Culture, Second Order SPECIMEN DESCRIPTION : BLOOD SPECIAL REQUESTS : NONE CULTURE : NO GROWTH 5 DAYS. REPORT STATUS : FINAL 01/17/2022 TEST:Blood Culture STATUS:Auth (Verified) BODY SITE: SOURCE:Blood COLLECTED DATE/TIME:01/10/22 12:05 PM Blood Culture SPECIMEN DESCRIPTION : BLOOD SPECIAL REQUESTS : NONE CULTURE : NO GROWTH 5 DAYS. REPORT STATUS : FINAL 01/15/2022 TEST:Blood Culture, Second Order STATUS:Auth (Verified) BODY SITE: SOURCE:Blood COLLECTED DATE/TIME:01/10/22 11:30 AM Blood Culture, Second Order SPECIMEN DESCRIPTION : BLOOD SPECIAL REQUESTS : CRITICAL VALUE CALLED AND VERIFIED BY READBACK FOR: GRAM POSITIVE COCCI TO [id number], ON 01/11/2022 AT 07:18 BY Virtual Paper [id number] CULTURE : STREPTOCOCCUS INFANTARIUS SSP. COLI This isolate was identified using Maldi-TOF system These AST results were performed on the Microscan ID and AST system Streptococcus species was identified by multiplex PCR. REPORT STATUS : FINAL 01/13/2022 ORGANISM STREPTOCOCCUS INFANTARIUS SSP. COLI This isolate was identified using Maldi-TOF system These AST results were performed on the Microscan ID and AST system METHOD MIN. INHIB. CONC. (MCG/ML) PENICILLIN SUSCEPTIBLE Radiology Reports * Exam Date Time Procedure Performing Provider Status 01/10/22 11:42 AM Chest Portable Bettie Dodson; Au th (Verified) Notes: (Chest Portable) Reason For Exam: Shortness of Breath RESULT: Chest Portable Chest Portable Reason: Shortness of Breath; Clinical Question(s): CHF COMPARISON: Most recent 12/26/2021 FINDINGS: LINES AND TUBES: None. LUNGS AND PLEURA: Low lung volumes. Persistent or recurrent diffuse interstitial prominence and mild central parenchymal haziness is suspicious for pulmonary edema. No large effusions. No pneumothorax. HEART, MEDIASTINUM AND MICHELLE: Persistent cardiomegaly. BONES AND SOFT TISSUES: No acute abnormality. IMPRESSION: Probable recurrent pulmonary edema/CHF. WSN: [id number] Ordering Physician: Keo Gonsalez By: Tono Leo MD Dictated Date/Time: 01/10/22 12:14 p Reviewed By: Tono Leo MD Signed By: Tono Leo MD Signed Date/Time: 01/10/22 12:14 pm Transcribed By: YAIR Transcribed Date/Time: 01/10/22 12:13 pm Vital Signs Most recent to oldest [Reference Range]: 1 2 3 Height 167.64 cm (01/20/22 5:35 AM) 167.64 cm (01/19/22 8:48 PM) 167.64 cm (01/17/22 3:29 PM) Weight 98.2 kg (01/12/22 4:00 AM) 88.9 kg (01/10/22 10:32 PM) 88.9 kg (01/10/22 8:53 PM) Oxygen Saturation [94-100 %] 91 % *L* (01/20/22 5:35 AM) 100 % (01/19/22 8:48 PM) 95 % (01/19/22 4:00 PM) Pulse Rate [55-90 bpm] 81 bpm (01/20/22 8:31 AM) 85 bpm (01/20/22 5:35 AM) 83 bpm (01/19/22 9:19 PM) Body Mass Index [18.5-24.99 kg/m2] 31.63 kg/m2 *>HHI* (01/10/22 10:32 PM) Blood Pressure [90-138/55-84 mm Hg] 137/66mm Hg (01/20/22 8:31 AM) 137/66mm Hg (01/20/22 8:31 AM) 140/84mm Hg *H* (01/20/22 5:35 AM) Respiratory Rate [16-30 br/min] 20 br/min (01/19/22 4:00 PM) 16 br/min (01/19/22 2:22 PM) 20 br/min (01/19/22 5:00 AM) Temperature [96.8-100.4 DegF] 98.2 DegF (01/20/22 5:35 AM) 97.9 DegF (01/19/22 8:48 PM) 98.0 DegF (01/19/22 4:00 PM) Liters per Minute 4 L/min (01/10/22 4:25 PM) 4 L/min (01/10/22 4:08 PM) 4 L/min (01/10/22 3:31 PM) Mode of Delivery (Oxygen) Room air (01/19/22 4:00 PM) Room air (01/19/22 5:00 AM) Room air (01/18/22 8:00 PM) Blood pressure sites Arm, right (01/19/22 4:00 PM) Arm, right (01/19/22 5:00 AM) Arm, right (01/18/22 8:00 PM) Temperature Route Oral (01/19/22 4:00 PM) Oral (01/19/22 5:00 AM) Oral (01/18/22 8:00 PM) Dry Weight 88.9 kg (01/10/22 10:32 PM) Weight Obtained Via Standing scale (01/10/22 10:32 PM) Standing scale (01/10/22 8:53 PM) Social History Social History Type Response Smoking Status 5-9 cigarettes (betw een 1/4 to 1/2 pack)/day in last 30 days; Interested in cessation: No; Patient wants NRT during admission Yes; Type: Cigarettes entered on: 06/29/21 Sex Portable XR Chest Views * [facility] , CIS S: TRANSCRIBE Tono Leo MD: VERIFY Event Display: Result: Authored Date: [id number] Chest Portable Reason: Shortness of Breath; Clinical Question(s): CHF COMPARISON: Most recent 12/26/2021 FINDINGS: LINES AND TUBES: None. LUNGS AND PLEURA: Low lung volumes. Persistent or recurrent diffuse interstitial prominence and mild central parenchymal haziness is suspicious for pulmonary edema. No large effusions. No pneumothorax. HEART, MEDIASTINUM AND MICHELLE: Persistent cardiomegaly. BONES AND SOFT TISSUES: No acute abnormality. IMPRESSION: Probable recurrent pulmonary edema/CHF. WSN: [id number] Ordering Physician: Keo Gonsalez Dictated By: Tono Leo MD Dictated Date/Time: 01/10/22 12:14 p Reviewed By: Tono Leo MD Signed By: Tono Leo MD Signed Date/Time: 01/10/22 12:14 pm Transcribed By: YAIR Transcribed Date/Time: 01/10/22 12:13 pm Patient Care team information Personnel Name: Jaki Bishop MD Address: Address: [address] [place] [id number]
--- OUTSIDE RECORDS SUMMARY | 2023-02-09 22:37 | XMS_ITS | Continuity of Care Document ---
Author Name Unknown Organization [facility] Address [address] [place] [address]- Care Team Providers Care Salt Maker Name Role Phone Jaki Bishop MD Primary Care Physician Encounter [facility] Date(s): 11/12/22 - 12/12/[address] [address] Allergies, Adverse Reactions, Alerts Substance Reaction [...] to COVID vaccine 2Admin Note: VIS GIVEN [id number] 3Admin Note: VIS GIVEN 2008-10 4Admin Note: vis 5Admin Note: vis 02/06/08 Medications albuterol 90 mcg/inh inhalation powder 2 puffs, Inhalation, Every 4 hours, PRN as needed, PRN Wheezing, # 1 each, 1 Refills, Maintenance, 06/28/22 14:49:00 EDT, Powder, [place], [place] - [id number], Partial fill upon patient request if the [...] 07/16/22 16:04:00 EDT, Route to Pharmacy Electronically, [facility] [id number], Partialfill upon patient request if the prescription is fo... Start Date: 07/16/22 Status: Ordered benztropine 1 mg oral tablet 0.5 mg, 0.5, tablet, By Mouth, 2 times a day, # 30 tablet, Refills 3, Tot. Refills 3, Maintenance, 09/17/22 1:51:00 EDT, Route to Pharmacy Electronically, [facility] [id number], Partial fill upon patient request if the [...] 10/18/22 11:46:00 EDT, Route to Pharmacy Electronically, [facility] [id number], Partial fill upon patient request if the prescr... Start Date: 10/18/22 Status: Ordered cloNIDine 0.1 mg oral tablet 0.1 mg, 1, tablet, By Mouth, Daily at bedtime, # 30 tablet, Refills 2, Tot. Refills 2, Maintenance,12/09/22 19:15:00 EDT, Route to Pharmacy Electronically, [facility] [id number], Partial fill upon patient request if the presc... Start Date: 12/09/22 Status: Ordered Creon 12,000 units oral delayed release capsule 1 capsule, By Mouth, 3 times a day, # 90 capsule, 3 Refills, Maintenance, 09/17/22 1:49:00 EDT, EC Capsule, [facility] [id number], Partial fill upon patient request if the [...] 09/17/22 1:48:00 EDT, Route to Pharmacy Electronically, [facility] [id number], 160, cm, 07/26/22 12:51:00 EDT, Height, 89.2, [...] 10/18/22 11:46:00 EDT, Route to Pharmacy Electronically, [facility] [id number], Partial fill upon patient request if the [...] mL, 5 Refills, Maintenance, 12/09/22 19:15:00 EDT, [facility] [id number], 15, 30 mL By Mouth 2 times a day, 165.09, cm, 10/18/22 11:23:00 EDT, Height, 83.7, kg, 10/05/22 21:20:00 EDT, Start Date: 12/09/22 Status: Ordered Lantus Solostar Pen 100 units/mL subcutaneous solution = 6 units, Subcutaneous Injection, Daily in AM, # 10 mL, 2 Refills, Maintenance, 12/09/22 19:15:00 EDT, Solution, [facility] [id number], Partial fill upon patient request if the prescription is for a schedule II opioid drug.,... Start Date: 12/09/22 Status: Ordered multivitamin Multiple Vitamins oral tablet 1 tablet, By Mouth, Daily, # 90 tablet, 1 Refills, Maintenance, 10/22/22 19:32:00 EDT, Tablet, [facility] [id number], Partial fill upon patient request if the prescription isfor a schedule II opioid drug., 1 tablet By Mouth D... Start Date: 10/22/22 Status: Ordered Nicotine 2 mg gum 1 each = 2 mg, Chew, Every 2 hours, PRN for smoking cessation, for 4 week(s), # 160 each, 1 Refills, Acute 02/03/23 19:15:00 EST, 12/09/22 19:15:00 EDT, Gum, [facility] [id number], Partial fill upon patient request if the pres... Start Date: 12/09/22 Stop Date: 02/03/23 Status: Ordered pantoprazole 40 mg oral delayed release tablet 1 tablet, By Mouth, Daily, # 30 tablet, 2 Refills, Maintenance, 11/10/22 11:02:00 EDT, 165.09, cm, 10/18/22 11:23:00 EDT, Height, 83.7, kg, 10/05/22 21:20:00 EDT, Dry Weight Start Date: 11/10/22 Status: Ordered Pen [place], 31 G x 5 mm BD Ultra [...] 10/12/22 10:21:00 EDT, Route to Pharmacy Electronically, [facility] [id number], Partial fill upon patient request if the prescription... Start Date: 10/12/22 Stop Date: 11/11/22 Status: Ordered risperiDONE 3 mg oral tablet 3 mg, 1, tablet, By Mouth, Daily at bedtime, # 30 tablet, Refills 0, Tot. Refills 0, Maintenance, 10/12/22 10:21:00 EDT, Route to Pharmacy Electronically, [facility] [id number], Partial fill upon patient request if the [...] 5 Refills, Maintenance, 09/17/22 1:52:00 EDT, Inhaler, [facility] [id number], Partial fill upon patient request if the prescription is for a schedule II opioid drug., 160, cm, 07/26/22 12:... Start Date: 09/17/22 Stop Date: 03/16/23 Status: Ordered traZODone 50 mg oral tablet 50 mg, 1, tablet, By Mouth, Daily at bedtime, # 30 tablet, Refills 2, Tot. Refills 2, Maintenance, 12/09/22 19:15:00 EDT, Route to Pharmacy Electronically, [facility] [place], [place] - [id number], Partial fill upon patient request if the [...] Care Team Personnel Name: Lawrence Hendrix Position: [facility] RN Member Role: Primary Care Nurse Name: Nazia Norris RN Position: [facility] Outreach Member Role: Primary Care Nurse Name: Rufino Lloyd RN Position: [facility] RN Member Role: Primary Care Nurse Name: Cristina Carpenter RN Position: [facility] RN Member Role: Primary Care Nurse Name: Rosette Noriega RN Position: [facility] SN RN Member Role: Primary Care Nurse Name: Mary Hidalgo RN Position: [facility] AMB Nurse Member Role: Primary Care Nurse Name: Sissy Duran RN Position: [facility] AMB Nurse Member Role: Primary Care Nurse Name: Rohit Zavaleta RN Position: [facility] RN Member Role: Primary Care Nurse Name: Erlinda Hartman NP Position: [facility] Associate Professional Member Role: Primary Care Nurse Address: Address: [address] [place] [address] Name: Shante Solis RN Position: [facility] RN Member Role: Primary Care Nurse Name: Joshua Prakash RN Position: [facility] RN Member Role: Primary Care Nurse Name: Bettie Vanegas RN Position: [facility] SN RN Member Role: Primary Care Nurse Name: Jay Marroquin RN Position: [facility] RN Member Role: Primary Care Nurse Name: Adrianna Church RN Position: [facility] RN Member Role: Primary Care Nurse Name: Sue Purdy RN Position: [facility] RN Member Role: Primary Care Nurse Name: Hector Perez RN Position: [facility] ED RN W/OE and Tasks Member Role: Primary Care Nurse Name: Aleena Vizcaino RN Position: [facility] RN Member Role: Primary Care Nurse Name: Kacey Wilhelm RN Position: [facility] RN Member Role: Primary Care Nurse Name: Leslie Malloy RN Position: [facility] RN Member Role: Primary Care Nurse Name: Yesenia Hu LPN Position: [facility] RN Member Role: Primary Care Nurse Name: Joaquina Herrera RN Position: [facility] RN Member Role: Primary Care Nurse Name: Diego Bell RN Position: [facility] RN Member Role: Primary Care Nurse Name: Ese Grey Position: [facility] RN Member Role: Primary Care Nurse Name: Chela Najera RN Position: [facility] RN Member Role: Primary Care Nurse Name: Tootie Gonzalez RN Position: [facility] RN Member Role: Primary Care Nurse Name: Nancy Monte RN Position: [facility] RN Member Role: Primary Care Nurse Name: Marilee Starkey Position: S RN Member Role: Primary Care Nurse Name: Silvina Dodd RN Position: [facility] RN Member Role: Primary Care Nurse Name: Flaco Clifford DO Position: [facility] Renal MD Member Role: Lifetime Consulting Physician Address: Address: [address] [place], [place] [address] [place] [address]- Name: Marilee Richardson RN Position: [facility] RN Member Role: Primary Care Nurse Name: Rufino Johnson RN Position: [facility] RN Member Role: Primary Care Nurse Name: Judson Larry Position: [facility] RN Member Role: Primary Care Nurse Name: Jovita Camargo RN Position: [facility] RN Member Role: Primary Care Nurse Name: Bruna Pizarro Position: [facility] RN Member Role: Primary Care Nurse Name: Ju Zhu Position: [facility] RN Member Role: Primary Care Nurse Name: Ester Palomares Position: [facility] RN Member Role: Primary Care Nurse Name: Emma Colbert RN Position: [facility] RN Member Role: Primary Care Nurse Name: Hallie Gmabino RN Position: [facility] Onco RN Member Role: Primary Care Nurse Name: Maya Ambriz RN Position: [facility] RN Member Role: Primary Care Nurse Name: Bhavna Rendon LPN Position: [facility] RN Member Role: Primary Care Nurse Name: Luis Burton RN Position: [facility] RN Member Role: Primary Care Nurse Name: Jaki Bishop MD Position: [facility] Physician - Primary Care Member Role: PCP Address: Address: [address] [place] [id number]- Name: Lucian Krause RN Position: [facility] RN Member Role: Primary Care Nurse Name: Misty Tariq Position: [facility] RN Member Role: Primary Care Nurse Name: Isaiah Combs RN Position: [facility] RN Member Role: Primary Care Nurse Name: Leslie Ward RN Position: [facility] RN Member Role: Primary Care Nurse Name: Jacki Gomes RN Position: [facility] RN Member Role: Primary Care Nurse Name: Derek Smith RN Position: [facility] RN Member Role: Primary Care Nurse Name: Perri Smith RN Position: [facility] RN Member Role: Primary Care Nurse Name: Mar Brothers RN Position: [facility] RN Member Role: Primary Care Nurse Name: Ivette Shankar RN Position: [facility] RN Member Role: Primary Care Nurse Name: Laura Mary RN Position: [facility] SN RN Member Role: Primary Care Nurse Name: Mary Guillen RN Position: [facility] RN Member Role: Primary Care Nurse Name: Octavio Box RN Position: [facility] RN Member Role: Primary Care Nurse Name: Nazia Tapia RN Position: [facility] RN Member Role: Primary Care Nurse Name: Pat Jackson RN Position: [facility] RN Member Role: Primary Care Nurse Name: Caren Hernandez RN Position: [facility] RN Supsanchez Member Role: Primary Care Nurse Name: Nely Wong RN Position: [facility] RN Member Role: Primary Care Nurse Name: Erica Brandon RN Position: [facility] RN Member Role: Primary Care Nurse Name: Adrianna Gonzalez RN Position: [facility] RN Member Role: Primary Care Nurse Name: Annmarie Feldman RN Position: [facility] PCO w/OE and EZ Script Member Role: Primary Care Nurse Name: Chinyere Espinoza RN Position: [facility] RN Member Role: Primary Care Nurse Name: Teresita Diallo RN Position: [facility] RN Member Role: Primary Care Nurse Name: Tennille Mcgarry RN Position: [facility] Senior Property Accountant Member Role: Primary Care Nurse Name: Vicky Salazar RN Position: [facility] RN Member Role: Primary Care Nurse Name: Spencer Jameson RN Position: [facility] RN Member Role: Primary Care Nurse Name: Jalen Mullins Position: [facility] RN Member Role: Primary Care Nurse Care Team Related Persons Name: MARYANNE KELLER Address: home [address] [place] [address] Name: MARYANNE KELLER Address: home [address] [place] [address] Name: MARYANNE KELLER JR Address: home [address] [place] [address] Name: GEORGIA KELLER Address: [place] [address] Name: BALDEV POLANCO Address: [place] [address]
--- OUTSIDE RECORDS SUMMARY | 2023-02-09 22:37 | XMS_ITS | Continuity of Care Document ---
Author Name Unknown Organization [facility] Address [address] [place] [address]- Care Team Providers Care Crusher And Binder Operator Name Role Phone Jaki Bishop MD Primary Care Physician [phone] Encounter [facility] Date(s): 05/13/21 - 07/01/[address] [address]- Attending Physician: Jaki Bishop MD Admitting Physician: Jaki Bishop MD Referring Physician: Jaki Bishop MD Allergies, Adverse Reactions, Alerts Substance Reaction Severity Status predniSONE Dizzinesses -DEC-2015 21:52:27<$> Active Zyprexa Hypertension Active NSAIDs Active [...] to COVID vaccine 2Admin Note: VIS GIVEN [id number] 3Admin Note: VIS GIVEN 2008- 4Admin Note: [...] MOUTH DAILY, # 90 tablet, 1 Refills, [facility], 150, TAKE ONE TABLET BY [...] AT BEDTIME, # 15 mL, 3 Refills, [facility], 167, cm, 06/24/21 8:27:00 EDT, [...] Replace Required Details, Route to Pharmacy Electronically, [facility], 167.64, cm, 03/23/21 14:44:00 EST, [...] 3 Refills, Maintenance, 04/24/21 13:09:00 EST, Tablet, [place], [place] - [id number], Partial fill upon patient request if the [...] 2 Refills, Maintenance,05/08/21 12:22:00 EST, CR Capsule, [place], [place] - [id number], Partial fill upon patient request if the [...] Active H/O tubal ligation(Confirmed) Active [facility]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
--- OUTSIDE RECORDS SUMMARY | 2023-02-09 22:37 | XMS_ITS | Continuity of Care Document ---
Author Name Unknown Organization [facility] Address [address] [place] [address]- Care Team Providers Care Line Servicer Name Role Phone Dario HAYDEN, Jaki Primary Care Physician [phone] Encounter [facility] Date(s): 02/12/20 - 03/13/20 [facility] [address] [place], [place] [address] Allergies, Adverse Reactions, Alerts Substance [...] Given Permanently Refused 1Admin Note: VIS GIVEN [id number] 2Admin Note: VIS GIVEN 2008-12 3Admin Note: vis 4Admin Note: vis 02/06/08 Medications acetaminophen 325 mg oral tablet 1, tablet, By Mouth, 4 times a day, PRN, no MORE THAN 4 TABLETS PER DAY., # 60 tablet, Refills 1, Tot. Refills 1, Maintenance, NEEDED, 03/06/20 9:09:00 EST, Route to Pharmacy Electronically, [facility] [id number], 168, cm,... Start Date: 03/06/20 Status: Ordered [...] 03/05/20 16:49:00 EST, Route to Pharmacy Electronically, [facility] [id number], Partial fill upon patient request, 168, cm, 11/... Start Date: 03/05/20 Status: Ordered docusate sodium 100 mg oral capsule = 100 mg, By Mouth, 2 times a day, PRN Constipation., # 60 capsule, 3 Refills, Maintenance, 02/29/20 15:13:00 EST, Capsule, [facility] [id number], Partial fill upon patient request if the prescription is for a schedule II opio... Start Date: 02/29/20 Stop Date: 06/28/20 Status: Ordered gabapentin 100 mg oral capsule 200 mg, 2, capsule, By Mouth, 2 times a day, # 120 capsule, Refills 0, Tot. Refills 0, Maintenance,03/05/20 16:51:00 EST, Route to Pharmacy Electronically, [facility] [id number], [facility] Start Date: 03/05/20 Status: Ordered Humalog Kwik Pen 100 units/mL subcutaneous injection See Instructions, 4 Units for bood sugar above 120 mg/dl and then add 2 Units for every 50 mg/dl rise above 120. Three times a day before meals., # 15 mL, 6 Refills, Maintenance, 03/05/20 16:52:00 EST, [facility] [id number],... Start Date: 03/05/20 Status: Ordered lactulose 10 [...] Replace Required Details, Route to Pharmacy Electronically, [facility] [id number], 168, cm, 12/17/19... Start Date: 02/01/20 Status: [...] 1 Refills, Maintenance, 08/07/19 14:23:00 EDT, Tablet, [facility] [place] -, 1 tablet By Mouth Daily, 166, [...] 5 Refills, Maintenance, 03/05/20 16:50:00 EST, Tablet, [place], [place] - [id number], this is an increased, 1 tablet By [...] 3 Refills, Maintenance, 03/05/20 16:51:00 EST, Tablet, [facility] [id number], Partial fill upon patient request if the prescription is for a schedule II opioid drug., 168, cm, 11... 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
--- OUTSIDE RECORDS SUMMARY | 2023-02-09 22:37 | XMS_ITS | Continuity of Care Document ---
Author Name Unknown Organization [facility] Address [address] [place] [address]- Care Team Providers Care Glass Setter Name Role Phone Jaki Bishop MD Primary Care Physician [phone] [place] [facility] [place] - 03/03/[address] [address]- Attending Physician: Jaki Bishop MD Admitting Physician: Jaki Bishop MD Allergies, Adverse Reactions, [...] to COVID vaccine 2Admin Note: VIS GIVEN [id number] 3Admin Note: VIS GIVEN 2008- 4Admin Note: [...] 02/02/22 9:36:00 EST, Route to Pharmacy Electronically, [facility] [id number], Partial fill upon patient request if the prescri... Start Date: 02/02/22 Status: Ordered cloNIDine 0.1 mg oral tablet 0.05 mg, 0.5, tablet, By Mouth, Daily, # 15 tablet, Refills 0, Tot. Refills 0, Maintenance, 02/02/22 9:36:00 EST, Route to Pharmacy Electronically, [facility] [id number], Partial fill upon patient request if the prescription i... Start Date: 02/02/22 Status: Ordered Coreg 6.25 mg oral tablet 6.25 mg, 1, tablet, By Mouth, 2 times a day, # 60 tablet, Refills 0, Tot. Refills 0, Maintenance, 02/02/22 9:36:00 EST, Route to Pharmacy Electronically, [facility] [id number], Partial fill upon patient request if the prescrip... Start Date: 02/02/22 Status: Ordered Creon 12,000 units oral delayed release capsule 1 capsule, By Mouth, 3 times a day, # 90 capsule, 0 Refills, Maintenance, 02/02/22 9:39:00 EST, EC Capsule, [facility] [id number], Partial fill upon patient request if the prescription is for a schedule II opioid drug., 167, c... Start Date: 02/02/22 Status: Ordered divalproex sodium 500 mg oral enteric coated tablet 1 tablet = 500 mg, By Mouth, 2 times a day, # 60 tablet, 0 Refills, Maintenance, 02/02/22 9:36:00 EST, Tablet, [facility] [id number], Partial fill upon patient request if theprescription is for a schedule II opioid drug., 167... Start Date: 02/02/22 Status: Ordered folic acid 1 mg oral tablet 1 mg, 1, tablet, By Mouth, Daily, # 30 tablet, Refills 1, Tot. Refills 1, Maintenance, 02/02/22 9:36:00 EST, Route to Pharmacy Electronically, [facility] [id number], Partial fill upon patient request if the [...] 02/02/22 9:37:00 EST, Route to Pharmacy Electronically, [facility] [id number], Partialfill upon patient request if the prescription is fo... Start Date: 02/02/22 Status: Ordered melatonin 3 mg oral tablet 1 tablet = 3 mg, By Mouth, Daily at bedtime, PRN Insomnia, # 30 tablet, 0 Refills, Maintenance, 02/02/22 9:37:00 EST, Tablet, [facility] [id number], Partial fill upon patientrequest if the prescription [...] 02/02/22 9:39:00 EST, Route to Pharmacy Electronically, [facility] [id number],Partial fill upon patient request if the prescripti... Start Date: 02/02/22 Status: Ordered torsemide 20 mg oral tablet 1 tablet = 20 mg, By Mouth, 2 times a day, # 60 tablet, 0 Refills, Maintenance, 02/02/22 9:40:00 EST, Tablet, [place], [place] - [id number], Partial fill upon patient request if the [...] Team Personnel Name: Daniel Gamino RN Position: Michael RN Member Role: Primary Care Nurse Name: Lawrence Hendrix Position: [facility] Supv Member Role: Primary Care Nurse Name: Rufino Lloyd RN Position: [facility] RN Member Role: Primary Care Nurse Name: Cristina Carpenter RN Position: [facility] RN Member Role: Primary Care Nurse Name: Rosette Noriega RN Position: [facility] SN RN Member Role: Primary Care Nurse Name: Mary Hidalgo RN Position: [facility] PCO RN Member Role: Primary Care Nurse Name: Sissy Duran RN Position: [facility] AMB Nurse Member Role: Primary Care Nurse Name: Rohit Zavaleta RN Position: [facility] RN Member Role: Primary Care Nurse Name: Erlinda Hartman NP Position: [facility] Associate Professional Member Role: Primary Care Nurse Address: Address: [address] [place] [id number] Name: Jong Suazo RN Position: [facility] RN Supv Member Role: Primary Care Nurse Name: Shante Solis RN Position: [facility] RN Member Role: Primary Care Nurse Name: Bettie Vanegas RN Position: [facility] RN Member Role: Primary Care Nurse Name: Jay Marroquin RN Position: [facility] RN Member Role: Primary Care Nurse Name: Sue Purdy RN Position: [facility] RN Member Role: Primary Care Nurse Name: Hector Perez RN Position: [facility] RN Member Role: Primary Care Nurse Name: Aleena Vizcaino RN Position: [facility] RN Member Role: Primary Care Nurse Name: Kacey Wilhelm RN Position: [facility] RN Member Role: Primary Care Nurse Name: Monalisa Barker Position: [facility] RN Member Role: Primary Care Nurse Name: Leslie Malloy RN Position: [facility] RN Member Role: Primary Care Nurse Name: Joaquina Herrera RN Position: [facility] RN Member Role: Primary Care Nurse Name: Diego Bell RN Position: [facility] RN Member Role: Primary Care Nurse Name: Ese Grey Position: [facility] RN Member Role: Primary Care Nurse Name: Chela Najera RN Position: [facility] RN Member Role: Primary Care Nurse Name: Tootie Gonzalez RN Position: [facility] RN Member Role: Primary Care Nurse Name: Nancy Monte RN Position: [facility] RN Member Role: Primary Care Nurse Name: Marilee Starkey Position: [facility] RN Member Role: Primary Care Nurse Name: Silvina Dodd RN Position: [facility] RN Member Role: Primary Care Nurse Name: Yvon Clifford DOel Manuel Position: [facility] Renal MD Member Role: Lifetime Consulting Physician Address: Address: [address] [place], [place] [address] [place] [address]- Name: Marilee Richardson RN Position: [facility] RN Member Role: Primary Care Nurse Name: Rufino Johnson RN Position: [facility] RN Member Role: Primary Care Nurse Name: Jovita Camargo RN Position: [facility] RN Member Role: Primary Care Nurse Name: Ju Zhu Position: [facility] RN Member Role: Primary Care Nurse Name: Ester Palomares Position: [facility] RN Member Role: Primary Care Nurse Name: Emma Colbert RN Position: [facility] RN Supv Member Role: Primary Care Nurse Name: Hallie Gambino RN Position: [facility] Onco RN Member Role: Primary Care Nurse Name: Maya Ambriz RN Position: [facility] RN Member Role: Primary Care Nurse Name: Luis Burton RN Position: [facility] RN Member Role: Primary Care Nurse Name: Jaki Bishop MD Position: [facility] Primary Care Physician Member Role: PCP Address: Address: [address] [place] [address]- Name: Leslie Ward RN Position: [facility] RN Member Role: Primary Care Nurse Name: Jacki Gomes RN Position: [facility] RN Member Role: Primary Care Nurse Name: Ximena Saab RN Position: [facility] RN Member Role: Primary Care Nurse Name: Ivette Shankar RN Position: [facility] RN Supv Member Role: Primary Care Nurse Name: Laura Mary RN Position: [facility] SN RN Member Role: Primary Care Nurse Name: Octavio Box RN Position: [facility] RN Member Role: Primary Care Nurse Name: Caren Hernandez RN Position: [facility] RN Supv Member Role: Primary Care Nurse Name: Kinza De La Cruz RN Position: [facility] RN Member Role: Primary Care Nurse Name: Veronica Queen RN Position: [facility] RN Member Role: Primary Care Nurse Name: Nely Wong RN Position: [facility] RN Member Role: Primary Care Nurse Name: Erica Brandon RN Position: [facility] RN Member Role: Primary Care Nurse Name: Adrianna Gonzalez RN Position: [facility] RN Member Role: Primary Care Nurse Name: Annmarie Feldman RN Position: [facility] PCO w/OE and EZ Script Member Role: Primary Care Nurse Name: Chinyere Espinoza RN Position: [facility] RN Member Role: Primary Care Nurse Name: Imani RAMIREZ, Teresita Reyes Position: [facility] RN Member Role: Primary Care Nurse Name: Tennille Mcgarry RN Position: [facility] Hospital Import/Export Agent Member Role: Primary Care Nurse Name: Vicky Salazar RN Position: [facility] RN Member Role: Primary Care Nurse Name: Jalen Mullins Position: [facility] RN Member Role: Primary Care Nurse Care Team Related Persons Name: MARYANNE KELLER Address: home [address] [place] [address] Name: MARYANNE KELLER Address: home [address] [address] Name: GEORGIA KELLER Address: [place] [address] Name: BALDEV POLANCO Address: [place] [address]
--- OUTSIDE RECORDS SUMMARY | 2023-02-09 22:37 | XMS_ITS | Continuity of Care Document ---
Author Name Unknown Organization [facility] Address [address] [place] [address]- Care Team Providers Care Chargemaster Analyst Name Role Phone Jaki Bishop MD Primary Care Physician [phone] Encounter [facility] Date(s): 04/19/20 - 05/19/[address] [address]- Allergies, Adverse Reactions, Alerts Substance Reaction Severity [...] Given Permanently Refused 1Admin Note: VIS GIVEN [id number] 2Admin Note: VIS GIVEN 2008-12 3Admin Note: vis 4Admin Note: vis 02/06/08 Medications acetaminophen 325 mg oral tablet 1, tablet, By Mouth, 4 times a day, PRN, not to exceed 4 TABLETS PER DAY, # 60 tablet, Refills 0, Tot. Refills 0, Acute, NEEDED, 05/01/20 9:37:00 EST, Route to Pharmacy Electronically, [facility], 168, cm, 04/16/20 8:30:00 EST, Height, 98.7, [...] 0 Refills, Maintenance, 04/16/20 11:06:00 EST, Tablet, [facility] [id number], Partial fill upon patient request if the prescription is for a schedule II opioid drug., 168,... Start Date: 04/16/20 Status: Ordered clozapine 50 mg oral tablet 3 tablet = 150 mg, By Mouth, Daily at bedtime, # 90 tablet, 0 Refills, Maintenance, 04/16/20 11:06:00 EST, Tablet, [facility] [id number], Partial fill upon patient request ifthe prescription is for a schedule II opioid drug.,... Start Date: 04/16/20 Status: Ordered Coreg 6.25 mg oral tablet 6.25 mg, 1, tablet, By Mouth, 2 times a day, # 60 tablet, Refills 0, Tot. Refills 0, Maintenance, 04/16/20 11:05:00 EST, Route to Pharmacy Electronically, [facility] [id number], Partial fill upon patient request, 168, cm, 03/22... Start Date: 04/16/20 Status: Ordered docusate sodium 100 mg oral capsule = 100 mg, By Mouth, 2 times a day, PRN Constipation., # 60 capsule, 3 Refills, Maintenance, 02/29/20 15:13:00 EST, Capsule, [facility] [id number], Partial fill upon patient request if the [...] Maintenance,04/16/20 11:06:00 EST, Route to Pharmacy Electronically, [facility] [id number], Partial fill upon patient request if the [...] mL, 1 Refills, Maintenance, 04/16/20 11:07:00 EST, [place], [place] - [id number],... Start Date: 04/16/20 Status: Ordered lactulose 10 gm/15 ml oral syrup 30 mL, By Mouth, 2 times a day, # 581 mL, 0 Refills, Acute, 03/25/20 11:49:00 EST, [facility],, TAKE 30 ML BY MOUTH 2 (two) [...] 1 Refills, Maintenance, 04/16/20 11:07:00 EST, Solution, [place], [place] - [id number], 168, cm, 04/16/20 8:30:00 EST, Height, 98.7, kg, 04/11/20 2:10:00 EST, Dry Weight Start Date: 04/16/20 Status: Ordered loratadine 10 mg oral tablet See Instructions, TAKE ONE TABLET BY MOUTH DAILY, # 30 tablet, Refills 5, Tot. Refills 5, 05/01/20 8:18:00 EST, Instructions Replace Required Details, Route to Pharmacy Electronically, [facility] [id number], 168, cm, 04/16/20... Start Date: 05/01/20 Status: [...] 1 Refills, Maintenance, 08/07/19 14:23:00 EDT, Tablet, [place], [place] -, 1 tablet By Mouth Daily, [...] 0 Refills, Maintenance, 04/16/20 11:08:00 EST, Gum, [place], [place] - [id number], Partial fill upon patient request if the [...] 5 Refills, Maintenance, 03/05/20 16:50:00 EST, Tablet, [facility] [id number], this is an increased, 1 tablet By [...] 1 Refills, Maintenance, 04/16/20 11:09:00 EST, Tablet, [facility] [id number], Partial fill upon patient request if the prescription is for a schedule II opioid drug., 168, cm, 01... 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
--- OUTSIDE RECORDS SUMMARY | 2023-02-09 22:38 | XMS_ITS | Continuity of Care Document ---
Author Name Unknown Organization [facility] Address [address] [place] [address]- Care Team Providers Care Psychologist Clinical Name Role Phone Jaki Bishop MD Primary Care Physician Encounter [facility] Date(s[facility] 04/20/19 - 04/30/19 [facility] [address] [place] [address] [facility] Attending Physician: Antonio Guido Admitting Physician: Antonio Guido Referring Physician: AdmAntonio perez Allergies, Adverse Reactions, Alerts Substance Reaction Severity [...] Given Patient Refuses 1Admin Note: VIS GIVEN [id number] 2Admin Note: VIS GIVEN 2008- 3Admin Note: vis 4Admin Note: vis 02/06/08 Medications acetaminophen 325 mg oral tablet 325 mg, 1, tablet, By Mouth, 4 times a day, PRN, No more than 4 tablets per day, # 60 tablet, Refills 11, Tot. Refills 11, Acute 10/05/19 12:00:00 EDT, for pain, 10/03/18 14:57:21 EDT, Route to Pharmacy Electronically, [id number]... Start Date: 10/03/18 Stop Date: 10/05/19 Status: [...] tablet, Refills 1, Tot. Refills 1, Maintenance, 04/26/19 8:46:00 EST, Route to Pharmacy Electronically, [facility] #[id number], 166, cm, 04/20/19 10:17:00 EST, Height, 91.8, kg, 02/23/19 17:03:00 ES... Start Date: 04/26/19 Status: Ordered docusate sodium 100 mg oral capsule 100 mg, 1, capsule, By Mouth, 2 times a day, # 60 capsule, Refills 11, Tot. Refills 11, Maintenance, 02/21/19 14:45:44 EST, Route to Pharmacy Electronically, [id number], [place], [place] -, 168, cm, 02/14/19... Start Date: 02/21/19 Stop Date: 02/16/20 Status: Ordered Ensure (Vanilla Flavor) Ensure (Vanilla Flavor), See Instructions, # 60 each, Refills 11, Tot. Refills 11, Maintenance, Drink 1 can BID. Diagnosis: Chronic Pancreatitis, Cirrhosis. ICD10 K86.1, K74.6, Fax to Anna( [facility], #[phone]), 12/06/17 13:28:49 EDT, Compound Start Date: 12/06/17 Status: Ordered gabapentin 100 mg oral capsule 200 mg, 2, capsule, By Mouth, 2 times a day, # 120 capsule, Refills 6, Tot. Refills 6, Maintenance,03/27/19 16:10:00 EST, Route to Pharmacy Electronically, [facility] #[id number], 166, cm, 03/27/19 15:26:00 EST, Height, 91.8, kg, 02/23/19 17:03:... Start Date: 03/27/19 Stop Date: 10/23/19 Status: Ordered Humalog Kwik Pen 100 units/mL subcutaneous injection See Instructions, 4 Units for bood sugar above 120 mg/dl and then add 2 Units for every 50 mg/dl rise above 120. Three times a day before meals., # 15 mL, 6 Refills, Maintenance, 03/30/19 16:20:00 EST, [facility] #[id number], 166, cm, 03/27/19 1... Start Date: 03/30/19 Status: Ordered Lantus Solostar Pen 100 units/mL subcutaneous solution = 32 units, Subcutaneous Injection, Daily, Inject QAM., # 15 mL, 6 Refills, Maintenance, 03/30/19 16:23:00 EST, [facility] #[id number], 166, cm, 03/27/19 15:26:00 EST, Height, 91.8, kg, 02/23/1917:03:00 EST, Dry Weight Start Date: 03/30/19 Stop Date: 10/26/19 Status: Ordered MiraLax oral powder for reconstitution = 17 Gm, By Mouth, 2 times a day, PRN Other, dissolve in water before taking. goal 2-3 bowel movements daily, # 527 Gm, 0 Refills, Maintenance, 03/27/19 17:13:00 EST, REC Powder, [facility]#[id number], 17 Gm By Mouth 2 times a [...] TABLET BY MOUTH DAILY FOR STOMACH ACID, [facility] #[id number] Start Date: 11/28/18 Status: Ordered Pen [place], 31 G x 8 mm BD Ultra Fine III See Instructions, # 120 each, Refills 11, Tot. Refills 11, Maintenance, Use to inject insulin QID. Diagnosis: Type II DM, ICD10 E11.9, 03/30/19 16:21:00 EST, Compound, 166, cm, 03/27/19 15:26:00 EST,Height, 91.8, kg, 02/23/19 17:03:00 EST, Dry Weight Start Date: 03/30/19 Status: Ordered Please draw CBC with dif (for ANC) weekly and fax results to: Attn Dr. Mariano Andrade, Outpatient Psychi Please draw CBC with dif (for ANC) weekly and fax results to: Attn Dr. Mariano Andrade, Outpatient Psychiatry, at [phone]., See Instructions, # 1 application, Refills 0, [...] 04/20/19 10:38:00 EST, Route to Pharmacy Electronically, [facility] #[id number], 166, cm, 04/20/19 10:17:00 EST, Height, 91.8, kg, 02/23/19 17:03:00 EST, . 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
--- OUTSIDE RECORDS SUMMARY | 2023-02-09 22:38 | XMS_ITS | Continuity of Care Document ---
Author Name Unknown Organization [facility] Address [address] [place] [address]- Care Team Providers Care Washer Hand Name Role Phone Dario HAYDEN, Jaki Primary Care Physician [facility]counter [facility] Date(s): 08/17/19 - 09/16/19 [facility] [address] [place] [address]- [facility] Attending Physician: Antonio Guido Admitting Physician: AdmtrAntonio Referring Physician: Admtr, ArEj Allergies, Adverse Reactions, Alerts Substance Reaction Severity [...] Given Patient Refuses 1Admin Note: VIS GIVEN [id number] 2Admin Note: VIS GIVEN 2008-12 3Admin Note: vis 4Admin Note: vis 02/06/08 Medications acetaminophen 325 mg oral tablet 1, tablet, By Mouth, 4 times a day, PRN, no MORE THAN 4 TABLETS PER DAY., # 60 tablet, Refills 2, Tot. Refills 0, Acute, NEEDED, 08/07/19 23:17:00 EDT, Route to Pharmacy Electronically, [facility], 166, cm, 05/28/19 11:08:00 [...] 08/07/19 14:24:00 EDT, Route to Pharmacy Electronically, [facility] [place], [place] -, 166, cm, 05/28/19 11:08:00 EDT, Height, 91.8, kg, 02/23/19 17... Start Date: 08/07/19 Status: Ordered docusate sodium 100 mg oral capsule 100 mg, 1, capsule, By Mouth, 2 times a day, # 60 capsule, Refills 11, Tot. Refills 11, Maintenance, 02/21/19 14:45:44 EST, Route to Pharmacy Electronically, [id number], [place], [place] -, 168, cm, 02/14/19... Start Date: [...] Maintenance,03/27/19 16:10:00 EST, Route to Pharmacy Electronically, [facility] #[id number], 166, cm, 03/27/19 15:26:00 EST, Height, 91.8, kg, 02/23/19 17:03:... Start Date: 03/27/19 Stop Date: 10/23/19 Status: Ordered Glucerna (Vanilla Flavor) Glucerna (Vanilla Flavor), See Instructions, # 60 each, Refills 11, Tot. Refills 11, Maintenance, Drink 1 can BID. 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 Fax to Anna ( [facility], #[phone]), 07/26/19 15... Start Date: 07/26/19 Status: Ordered Humalog Kwik Pen 100 units/mL subcutaneous injection See Instructions, 4 Units for bood sugar above 120 mg/dl and then add 2 Units for every 50 mg/dl rise above 120. Three times a day before meals., # 15 mL, 6 Refills, Maintenance, 05/04/19 12:52:00 EST, [place], [place] - , Humalog ins... Start Date: [...] Refills, Maintenance, 07/26/19 8:25:00 EDT, REC Powder, [place], [place] -, 17 Gm By Mouth 2 times a day,PRN:Oth... Start Date: 07/26/19 Status: Ordered multivitamin Multiple Vitamins oral tablet 1 tablet, By Mouth, Daily, # 90 tablet, 1 Refills, Maintenance, 08/07/19 14:23:00 EDT, Tablet, [place], [place] -, 1 tablet By Mouth Daily, [...] Weight Start Date: 07/30/19 Status: Ordered Pen [place], 31 G x 8 mm BD Ultra [...] Attn Dr. Mariano Andrade, Outpatient Psychiatry, at [phone]., See Instructions, # 1 application, Refills 0, Tot. Refills 0, Maintenance, Please draw CBC with dif (for ANC) weekly and fax re... Start Date: 11/21/15 Status: Ordered sacubitril-valsartan 97 mg-103 mg oral tablet 1 tablet, By Mouth, 2 times a day, # 60 tablet, 5 Refills, Maintenance, 08/27/19 7:36:00 EDT, Tablet, [facility] [place] [place] -, this is an increased, 1 [...] 04/20/19 10:38:00 EST, Route to Pharmacy Electronically, [facility] #[id number], 166, cm, 04/20/19 10:17:00 EST, Height, 91.8, kg, 02/23/19 17:03:00 EST, . Start Date: 04/20/19 Status: Ordered torsemide 20 mg oral tablet 2 tablet = 40 mg, By Mouth, Daily, # 180 tablet, 11 Refills, Maintenance, 04/20/19 10:38:00 EST, Tablet, [facility] #[id number], Replaces lower dose, 166, cm, 04/20/19 10:17:00 [...] Active H/O tubal ligation(Confirmed) Active BHN/ CP Personal Lines Insurance Advisor[facility] [phone](Confirmed) Active History of cholecystectomy(Confirmed) Active Hypertension(Confirmed) Active [...]
--- OUTSIDE RECORDS SUMMARY | 2023-02-09 22:38 | XMS_ITS | Continuity of Care Document ---
Author Name Unknown Organization [facility] Address [address] [place] [address]- Care Team Providers Care Personal Counselor Name Role Phone Jaki Bishop MD Primary Care Physician [phone] Encounter [facility] [place] [facility] [place] [id number] Date(s): 04/29/20 - 05/29/[address] [address]- Attending Physician: AdmtrAntonio Allergies, Adverse Reactions, Alerts Substance Reaction Severity Status acetaminophen Active NSAIDs Active predniSONE Dizzinesses 02-JAN-2016 21:52:27<$> Active [...] Given Permanently Refused 1Admin Note: VIS GIVEN [id number] 2Admin Note: VIS GIVEN 2008-12 3Admin Note: vis 4Admin Note: vis 02/06/08 Medications acetaminophen 325 mg oral tablet 1, tablet, By Mouth, 4 times a day, PRN, not to exceed 4 TABLETS PER DAY, # 60 tablet, Refills 0, Tot. Refills 0, Acute, NEEDED, 05/28/20 13:40:00 EST, Route to Pharmacy Electronically, [facility], 168, cm, 04/16/20 8:30:00 EST, Height, [...] 0 Refills, Maintenance, 04/16/20 11:06:00 EST, Tablet, [place], [place] - [id number], Partial fill upon patient request if the prescription is for a schedule II opioid drug., 168,... Start Date: 04/16/20 Status: Ordered clozapine 50 mg oral tablet 3 tablet = 150 mg, By Mouth, Daily at bedtime, # 90 tablet, 0 Refills, Maintenance, 04/16/20 11:06:00 EST, Tablet, [place], [place] - [id number], Partial fill upon patient request ifthe prescription is for a schedule II opioid drug.,... Start Date: 04/16/20 Status: Ordered Coreg 12.5 mg oral tablet 12.5 mg, 1, tablet, By Mouth, 2 times a day, # 180 tablet, Refills 1, Tot. Refills 1, Maintenance, 05/26/20 14:41:00 EST, Route to Pharmacy Electronically, [facility] [id number], Partial fill upon patient request if the prescr... Start Date: 05/26/20 Stop Date: 11/22/20 Status: Ordered docusate sodium 100 mg oral capsule = 100 mg, By Mouth, 2 times a day, PRN Constipation., # 60 capsule, 3 Refills, Maintenance, 02/29/20 15:13:00 EST, Capsule, [facility] [id number], Partial fill upon patient request if the [...] Maintenance,05/28/20 13:46:00 EST, Route to Pharmacy Electronically, [facility] [id number], Partial fill upon patient request if the [...] mL, 1 Refills, Maintenance, 04/16/20 11:07:00 EST, [facility] [place], [place] - [id number],... Start Date: 04/16/20 Status: Ordered lactulose 10 gm/15 ml oral syrup 30 mL, By Mouth, 2 times a day, # 581 mL, 0 Refills, Acute, 03/25/20 11:49:00 EST, [facility],10, TAKE 30 ML BY [...] Replace Required Details, Route to Pharmacy Electronically, [facility], [facility] [id number], 168, cm, 04/16/20... Start Date: 05/01/20 Status: [...] 1 Refills, Maintenance, 05/26/20 13:28:00 EST, Tablet, [facility], [facility] [id number], 1 tablet By Mouth Daily, 168, cm, [...] 0 Refills, Maintenance, 04/16/20 11:08:00 EST, Gum, [facility], [facility] [id number], Partial fill upon patient request if the [...] Maintenance, 03/05/20 16:50:00 EST, Tablet, [facility] [id number], this is an increased, 1 tablet By [...] Maintenance, 04/16/20 11:09:00 EST, Tablet, [facility] [id number], Partial fill upon patient request if the prescription is for a schedule II opioid drug., 168, cm, 01... Start Date: 04/16/20 Stop Date: 04/11/21 Status: Ordered Zenpep 10,000 units-32,000 units-42,000 units oral delayed release capsule 1 capsule, By Mouth, 3 times a day, # 90 capsule, 0 Refills, Maintenance, 04/16/20 11:09:00 EST, [facility] [id number], 1 capsule By Mouth 3 times a [...] Active H/O tubal ligation(Confirmed) Active BHN/ CP Rn Lactation Consultant/Janet salvador [facility] [phone](Confirmed) Active History of cholecystectomy(Confirmed) Active Hypertension(Confirmed) Active [...]
--- OUTSIDE RECORDS SUMMARY | 2023-02-09 22:38 | XMS_ITS | Continuity of Care Document ---
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 Name Role Phone Jaki Bishop MD Primary Care Physician Encounter [facility] Date(s): 03/20/22 - 03/25/[address] [id number] Discharge Disposition: A-Transfer VNA/Home Health Attending Physician: Nadia Rodriguez MD Admitting Physician: Gina Carranza DO Referring Physician: Not on Staff, Referring MD [...] to COVID vaccine 2Admin Note: VIS GIVEN [id number] 3Admin Note: VIS GIVEN 2008-12 4Admin Note: [...] Diagnosis: Type II DM, ICD10 E11.9, 03/25/22 12:03:00 EST, Compound, 167, cm, 03/25/22 3:14:00 EST, Height, 113,kg, 03/21/22 0:03:00 EST, Dry Weight Start Date: 03/25/22 Status: Ordered benztropine 1 mg oral tablet 0.5 mg, 0.5, tablet, By Mouth, 2 times a day, # 30 tablet, Refills 0, Tot. Refills 0, Maintenance, 03/25/22 12:04:00 EST, Route to Pharmacy Electronically, [facility], Partial fill uponpatient request if the prescription is for a schedu... Start Date: 03/25/22 Stop Date: 04/24/22 Status: Ordered cloNIDine 0.1 mg oral tablet 0.1 mg, 1, tablet, By Mouth, Daily, # 30 tablet, Refills 0, Tot. Refills 0, Maintenance, 03/25/22 12:04:00 EST, Route to Pharmacy Electronically, [facility], Partial fill upon patient request if the prescription is for a schedule II opio... Start Date: 03/25/22 Stop Date: 04/24/22 Status: Ordered Coreg 6.25 mg oral tablet 6.25 mg, Tablet, By Mouth, Hold for: SBP<100, 03/25/22 9:00:00 EST Start Date: 03/25/22 Stop Date: 03/25/22 Status: Completed Coreg 6.25 mg oral tablet 6.25 mg, 1, tablet, By Mouth, 2 times a day, # 60 tablet, Refills 0, Tot. Refills 0, Maintenance, 03/25/22 12:04:00 EST, Route to Pharmacy Electronically, [facility], Partial fill upon patient request if the prescription is for a schedul... Start Date: 03/25/22 Stop Date: 04/24/22 Status: Ordered Creon 12,000 units oral delayed release capsule 1 capsule, By Mouth, 3 times a day, # 90 capsule, 0 Refills, Maintenance, 03/25/22 12:07:00 EST, ECCapsule, [facility] 3, Partial fill upon patient request if the prescription is for a schedule II opioid drug., 167, cm, 03/25/22 3:14:00 E... Start Date: 03/25/22 Status: Ordered dextromethorphan-guaifenesin 10 mg-100 mg/5 mL oral liquid 5 mL, By Mouth, 4 times a day, PRN Cough, for 14 days, # 120 mL, 0 Refills, Acute 04/08/22 12:43:00EST, 03/25/22 12:43:00 EST, Syrup, [facility] 3, Partial fill upon patient request if the prescription is for a schedule II opioid drug., 5... Start Date: 03/25/22 Stop Date: 04/08/22 Status: Ordered diphenhydrAMINE 25 mg oral tablet = 25 mg, By Mouth, 3 times a day, PRN Agitation, # 50 tablet, 0 Refills, Acute 04/20/22 21:00:00 EST, 03/25/22 12:05:00 EST, Tablet, [facility] 3, Partial fill upon patient request if theprescription is for a schedule II opioid drug., 167... Start Date: 03/25/22 Stop Date: 04/20/22 Status: Ordered divalproex sodium 500 mg oral enteric coated tablet = 1,000 mg, By Mouth, 2 times a day, # 120 tablet, 0 Refills, Maintenance, 03/25/22 12:06:00 EST, Tablet, [facility], Partial fill upon patient request if the prescription is for a schedule II opioid drug., 167, cm, 03/25/22 3:14:00 EST,... Start Date: 03/25/22 Stop Date: 04/24/22 Status: Ordered docusate-senna 50 mg-8.6 mg oral [...] tablet, Refills 1, Tot. Refills 1, Maintenance, 03/25/22 12:06:00 EST, Route to Pharmacy Electronically, [facility], Partial fill upon patient request if the prescription is for a schedule II opioid... Start Date: 03/25/22 Status: Ordered Freestyle Lite Lancets See Instructions, # 100 each, Refills 0, Tot. Refills 0, Maintenance, Use when checking blood glucose levels TID. Diagnosis: Type II DM, ICD10 E11.9, 03/25/22 12:04:00 EST, Compound, 167, cm, 03/25/22 3:14:00 EST, Height, 113, kg, 03/21/22 0:03:00 EST... Start Date: 03/25/22 Status: Ordered Freestyle Lite Monitor See Instructions, [...] 113, kg, 03/21/22 0:03:00 E... Start Date: 03/25/22 Status: Ordered hydrOXYzine pamoate 50 mg oral capsule 1 capsule = 50 mg, By Mouth, 3 times a day, PRN Anxiety, for 30 days, # 60 capsule, 0 Refills, Acute 04/24/22 12:43:00 EST, 03/25/22 12:43:00 EST, Capsule, [facility], Partial fill uponpatient request if the prescription is for a schedu... Start Date: 03/25/22 Stop Date: 04/24/22 Status: Ordered Insulin Lispro KwikPen 100 units/mL injectable solution See Instructions, INJECT SUBCUTANEOUSLY 3 (THREE) TIMES A DAY BEFORE MEALS VIA sliding scale (150-199 2u; 200-249 4u; 250-299 6u; 300-349 8u; 350-399 10u; >400 call [facility]NA), # 10 mL, 0 Refills, Maintenance, 03/25/22 12:08:00 EST, Injection, [facility]... Start Date: 03/25/22 Status: Ordered Lantus Solostar Pen 100 units/mL subcutaneous solution = 6 units, Subcutaneous Injection, Daily in AM, # 10 mL, 0 Refills, Maintenance, 03/25/22 12:08:00 EST, Solution, [facility], Partial fill upon patient request if the prescription is for a schedule II opioid drug., 167, cm, 03/25/22 3:14... Start Date: 03/25/22 Status: Ordered Multivit Therapeutic/Minerals Tablet 1 tablet, By Mouth, Daily, 0 Refills, Maintenance, 03/20/22 18:29:00 EST, Tablet, Partial fill uponpatient request if the prescription is for a schedule II opioid drug. Start Date: 03/20/22 Status: Ordered Nicotine 2 mg gum 1 [...] Daily, # 30 tablet, 0 Refills, Maintenance, 03/25/22 12:07:00 EST, EC Tablet, 167, cm, 03/25/22 3:14:00 EST, Height, 113, kg, 03/21/22 0:03:00 EST, Dry Weight Start Date: 03/25/22 Status: Ordered risperiDONE 2 mg oral tablet 2 mg, 1, tablet, By Mouth, Daily in AM, # 30 tablet, Refills 0, Tot. Refills 0, Maintenance, 03/25/22 12:48:00 EST, Route to Pharmacy Electronically, [facility], Partial fill upon patient request if the prescription is for a schedule II... Start Date: 03/25/22 Stop Date: 04/24/22 Status: Ordered risperiDONE 3 mg oral tablet 3 mg, 1, tablet, By Mouth, Daily at bedtime, # 30 tablet, Refills 0, Tot. Refills 0, Maintenance, 03/25/22 12:48:00 EST, Route to Pharmacy Electronically, [facility], Partial fill upon patient request if the prescription is for a schedul... Start Date: 03/25/22 Status: Ordered thiamine 100 mg oral tablet 100 mg, 1, tablet, By Mouth, Daily, for 30 days, # 30 tablet, Refills 0, Tot. Refills 0, Acute 04/24/22 12:07:00 EST, 03/25/22 12:07:00 EST, Route to Pharmacy Electronically, [facility], Partial fill upon patient request if the prescript... Start Date: 03/25/22 Stop Date: 04/24/22 Status: Ordered tiotropium 2.5 mcg/inh inhalation aerosol 2 puffs, Inhalation, Daily, # 1 each, 0 Refills, Maintenance, 03/25/22 12:09:00 EST, Inhaler, [facility], Partial fill upon patient [...] Exam Date Time Procedure Performing Provider Status 03/21/22 8:44 AM Chest Portable Aleena Elizondo; Auth (Ve rified) Notes: (Chest Portable) Reason For Exam: Shortness of Breath RESULT: Chest Portable Chest Portable Reason: Shortness of Breath; Clinical Question(s): Pneumonia COVID positive. History of CHF and nicotine dependence. COMPARISON: Multiple, most recent 03/09/[address] scan 02/10/2021 and 10/10/2019 FINDINGS: LINES AND TUBES: None. LUNGS AND PLEURA: Low lung volumes. Improved right upper lobe aeration but there is diffuse mild hazy perihilar and bibasilar opacity and subtle central interstitial prominence. No large effusions. No pneumothorax. HEART, MEDIASTINUM AND MICHELLE: Unchanged mild cardiomegaly. Right hilar fullness. BONES AND SOFT TISSUES: No acute abnormality. IMPRESSION: Low lung volumes. Mild patchy opacity superimposed upon probable chronic interstitial lung disease,possibly due to smoking-related disease. CT scan 02/10/2021 shows severe peribronchial groundglass opacity and mild traction bronchiectasis. Consider pulmonology consultation. WSN: [id number] Ordering Physician: Neetu Howard Dictated By: Tono Leo MD Dictated Date/Time: 03/21/22 10:38 a Reviewed By: Tono Leo MD Signed By: Tono Leo MD Signed Date/Time: 03/21/22 10:38 am Transcribed By: YAIR Transcribed Date/Time: 03/21/22 10:19 am Vital Signs Most recent to oldest [Reference Range]: 1 2 3 Height 167 cm (03/25/22 3:14 AM) 167 cm (03/25/22 12:08 AM) 167 cm (03/24/22 8:35 PM) Weight 113 kg (03/21/22 12:03 AM) Oxygen Saturation [94-100 %] 98 % (03/25/22 11:00 AM) 95 % (03/25/22 7:00 AM) 98 % (03/25/22 3:14 AM) Pulse Rate [55-90 bpm] 68 bpm (03/25/22 11:00 AM) 52 bpm *L* (03/25/22 9:11 AM) 65 bpm (03/25/22 7:00 AM) Body Mass Index [18.5-24.99 kg/m2] 40.52 kg/m2 *>HHI* (03/21/22 12:03 AM) Blood Pressure [90-138/55-84 mm Hg] 139/88mm Hg *H* (03/25/22 11:00 AM) 152/82mm Hg *H* (03/25/22 9:11 AM) 152/81mm Hg *H* (03/25/22 7:00 AM) Respiratory Rate [16-30 br/min] 18 br/min (03/25/22 11:00 AM) 18 br/min (03/25/22 7:00 AM) 18 br/min (03/25/22 3:14 AM) Temperature [96.8-100.4 DegF] 97.6 DegF (03/25/22 11:00 AM) 97.7 DegF (03/25/22 7:00 AM) 97.3 DegF (03/25/22 3:14 AM) Liters per Minute 2 L/min (03/21/22 7:13 AM) 1 L/min (03/21/22 12:03 AM) Mode of Delivery (Oxygen) Room air (03/25/22 11:00 AM) Room air (03/25/22 7:00 AM) Room air (03/25/22 3:14 AM) Blood pressure sites Arm, left (03/25/22 11:00 AM) Arm, left (03/25/22 7:00 AM) Arm, right (03/25/22 3:14 AM) Temperature Route Oral (03/25/22 11:00 AM) Axillary (03/25/22 7:00 AM) Oral (03/25/22 3:14 AM) Dry Weight 113 kg (03/21/22 12:03 AM) Social History Social History Type Response Smoking Status 5-9 cigarettes (betw een 1/4 to 1/2 pack)/day in last 30 days; Interested in cessation: No; Patient wants NRT during admission Yes; Type: Cigarettes entered on: 06/29/21 Sex Female History and physical note * Dontrell HAYDEN, Angela Yang: PERFORM Event Display: History and Physical Hospital Authored Date: Patient: ??AVILA, CARYL ? Age:??56 Years?Sex:??Female?:??1965?? Chief Complaint/Reason for Consultation Transfer from [facility]??after she was found to be COVID-positive History of Present Illness Patient seen on??March 21? 56-year-old woman with history of hypertension, hyperlipidemia, type 2 diabetes, cirrhosis, CKD, asthma, CHF with LVEF 55 to 60% on echo from June 2021, class III obesity, schizoaffective disorder, multiple inpatient psychiatric hospitalizations who is being transferred from [facility] after she was found to be COVID-positive. ?? Background history: Had initially presented to [facility] on March 09 due to agitation. She was noted to have right postauricular swelling. CT of the maxillofacial demonstrated right postauricular rim-enhancing soft tissue fluid collection. She was started on IV vancomycin and Unasyn. ENT was consulted and underwent multiple I&D's for right-sided postauricular abscess. She was also seen by behavioral health service as she was exhibiting aggressive and violent behavior requiring physical and chemical restraints. On March 18 she was medically cleared for discharge and was [facility] for management of psychosis and agitation. She was noted to have a temperature of 102 and was c omplaining of cough, nausea and vomiting. She was tested for COVID which returned positive and was thus transferred back to medicine service. Vital signs upon presentation to the unit: Temperature 99, blood pressure 106/47, O2 sats 98% on 1 L via nasal cannula. ?? At the time of my evaluation she was fast asleep??and was thus unable to obtain review of systems.??According to her nurse she arrived from the unit just prior to midnight and was alert awake and oriented x4. Was denying any shortness of breath, nausea or vomiting. Review of Systems Unable to obtain??as she is sleeping.??Denied any chest pain, shortness of breath, nausea, vomiting??to her nurse. Objective Measurements?? Height: 167 cm (03/21/22) Weight: 113 kg (03/21/22) Dry Weight: 113 kg (03/21/22) Body Mass Index:??40.52 kg/m2??Critical (03/21/22) ? Vital Signs?? Temperature: 99 DegF (03/21/22 00:03:00) Temperature Route: Oral (03/21/22 00:03:00) Pulse Rate: 75 bpm (03/21/22 00:03:00) Respiratory Rate: 18 br/min (03/21/22 00:03:00) Systolic Blood Pressure: 106 mm Hg (03/21/22 00:03:00) Diastolic Blood Pressure:??47 mm Hg??Low (03/21/22 00:03:00) Blood pressure sites: Arm, left (03/21/22 00:03:00) Mean Arterial Pressure: 67 mm Hg (03/21/22 00:03:00) Pulse Pressure: 59 mm Hg (03/21/22 00:03:00) Oxygen Saturation: 98 % (03/21/22 00:03:00) Liters per Minute: 1 L/min (03/21/22 00:03:00) Mode of Delivery (Oxygen): Nasal cannula (03/21/22 00:03:00) Early Warning Score: 1 (03/21/22 05:02:33) ? Physical Exam Constitutional: Middle-aged woman, sleeping in no acute distress. Head EENT: Normocephalic Neck: Supple. Respiratory: Clear to auscultation??anteriorly. No wheezing or crackles. No use of accessory muscles. Cardiovascular: S1S2 regular. 3 out of 6 systolic murmur best heard in the left upper sternal border Gastrointestinal: Abdomen soft, non-tender, non-distended. Normal bowel sounds. Extremities: No lower extremity pitting??edema. No cyanosis or clubbing. Neurologic: Sleeping. Noted to move all 4 extremities??while I was examining her Skin: No rash. Psychiatric: Unable to assess as she is sleeping Assessment/Plan Assessment:??56-year-old woman with history of hypertension, hyperlipidemia, type 2 diabetes, cirrhosis, CKD, asthma, CHF with LVEF 55 to 60% on echo from June 2021, class III obesity, schizoaffective disorder, multiple inpatient psychiatric hospitalizations who is being transferred from [facility] after she was found to be COVID-positive. ?? COVID (U07.1):??Was noted to have a temperature of 102 and was complaining of nausea. COVID-19 PCR obtained was positive. Her O2 sats have remained between 96 to 98% on room air. Received [place] COVID-19 vaccination on September 03, 2020.? Initial positive test:??Mar 20 Symptom onset:??Mar 20 Imaging:??Chest x-ray ordered Inflammatory markers:??D-dimer 0.54. CRP 1.1 ?? COVID treatment: Respiratory Support:??Currently maintaining her??O2 sats??on room air Dexamethasone:??Not indicated Awake proning/partial proning ordered COVID-19 isolation protocol until??Mar 30 VTE Prophylaxis: Lovenox 40 mg twice a day ?? Acute renal failure superimposed on stage 2 chronic kidney disease (N17.9):??Baseline creatinine appears to be 0.8-1.??Likely prerenal.?? nursing note??mentions that she had??declined??breakfast since she was nauseous.??Being on ARB and??torsemide??likely??contributed. -Hold??torsemide and losartan -Monitor intake and output -Check urinalysis -1 L of??normal saline ordered. -Dose all meds based on her??creatinine clearance ?? Schizoaffective disorder, bipolar type (F25.0):??She had been admitted to [facility] for management of psychosis and agitation. She had presented with paranoid delusions, disorganized thinking and irritable behavior. -Continue Depakote 1000mg BID ??-Continue Risperidone 2mg qAM, 3mg qHS ??-Continue Benztropine 0.5mg BID -Consult for ongoing management ?? Chronic diastolic heart failure (I50.32):??Nonischemic cardiomyopathy (LV EF elizabeth 20-30%), subsequently recovered.??Appears euvolemic.??Hold torsemide??and losartan??given worsening kidney function.??Continue Coreg ?? Diabetes (E11.9):??Diagnosed in??2019. Type II versus??related to pancreatic??insufficiency. Currently on??Lantus 12 units in the morning and insulin sliding scale. Most recent hemoglobin A1c was 8.2when checked??at the end of February. ?? History of Chronic pancreatitis & Pseudocyst (K86.1):??Continue pancrelipase ?? Hypertension (I10):??Home medications include carvedilol 6.25 mg twice a day, clonidine 0.1 mg daily,??losartan 50 mg daily.??Given worsening kidney function, hold??losartan. Continue carvedilol and clonidine with hold parameters ?? VTE Prophylaxis:??Lovenox ordered ?VTE Prophylaxis Assessment:??VTE Prophylaxis Ordered ?? Code Status:??Full code ?Order Code Status:??Code Status Ordered ? Histories Allergies Allergies ?(Active and Proposed [...] exacerbation CS (cervical spondylosis) Diabetes Dyshidrotic eczema Hyperglycemia due to diabetes mellitus Hypertension Incisional hernia Leukocytosis Nicotine dependence Pulmonary HTN, Severe Schizoaffective disorder, bipolar type Severe obesity Steatohepatitis (w/Stage III Fibrosis, Liver Biopsy 05/2012) Syncope and collapse Tobacco use Weakness ? Past Surgical History Laparotomy: 03/2013 Laparoscopic Cholecystectomy: 2002 Cesarian Section: 1992 Cesarian Section: 1988 Cesarian Section: 1982 Cesarian Section: 1981 ? Social History Denies alcohol use.??Current smoking ? Family History Mother: Cervical; Stomach Medications Home Medications Acetaminophen (acetaminophen 325 mg oral tablet)?650?Milligram?2?tablet?By Mouth?Every 6 hours?as needed?as needed for pain Benztropine (benztropine 1 mg oral tablet)?0.5?Milligram?0.5?tablet?By Mouth?2 times a day Carvedilol (Coreg 6.25 mg oral tablet)?6.25?Milligram?1?tablet?By Mouth?2 times aday Clonidine (cloNIDine 0.1 mg oral tablet)?0.1?Milligram?1?tablet?By Mouth?Daily Clotrimazole Topical (Clotrimazole 1% Topical)?1?applicator?Topically?2 times a day DiphenhydrAMINE (Benadryl Tablet)?25?Milligram?By Mouth?3 times a day?as needed?Agitation Divalproex Sodium (divalproex sodium 500 mg oral enteric coated tablet)?1,000?Milligram?ByMouth?2 times a day Docusate-Senna (docusate-senna 50 mg-8.6 mg oral capsule)?1?capsule?By Mouth?2 times a day?as needed?Constipation Folic Acid (folic acid 1 mg oral tablet)?1?Milligram?1?tablet?By Mouth?Daily Guaifenesin/Dextromethorphan (GuaiFENEsin /Dextromethorphan Liquid)?10?Milliliter?By Mouth?4 times a day?as needed?Cough Haloperidol (haloperidol 5 mg oral tablet)?5?Milligram?1?tablet?By Mouth?3 times a day?as needed?Agitation HydrOXYzine (hydrOXYzine pamoate 50 mg oral capsule)?1?capsule?50?Milligram?By Mouth?3 times a day?as needed?Anxiety Insulin Glargine (Insulin Glargine Inj)?0.12?Milliliter?12?unit(s)?Subcutaneous Injection?Daily Insulin Lispro (Insulin Lispro KwikPen 100 units/mL injectable solution)?INJECT SUBCUTANEOUSLY 3(THREE) TIMES A DAY BEFORE MEALS VIA sliding scale (150-199 2u; 200-249 4u; 250-299 6u; 300-349 8u;350-399 10u; >400 call [facility]NA) Lactulose (lactulose 10 gm/15 ml oral syrup)?30?Milliliter?20?gram?By Mouth?2 times a day Lorazepam (Ativan 2 mg oral tablet)?1?tab(s)?2?Milligram?By Mouth?Every 6 hours?as needed?Agitation?use WITH haldol for agitation Losartan (losartan 50 mg oral tablet)?50?Milligram?1?tablet?By Mouth?Daily Melatonin (melatonin 3 mg oral tablet)?1?tab(s)?3?Milligram?By Mouth?Daily at bedtime?as needed?Insomnia Multivitamin With Minerals (Multivit Therapeutic/Minerals Tablet)?1?tab(s)?By Mouth?Daily Nicotine (Nicotine 2 mg gum)?1?Each?2?Milligram?Chew?Every hour?as needed?as needed for smoking cessation Ondansetron (ondansetron 4 mg oral tablet, disintegrating)?4?Milligram?By Mouth?Every 6hours?as needed?Nausea & Vomiting Pancrelipase (Creon 12,000 units oral delayed release capsule)?1?capsule?By Mouth?3 times a day Pantoprazole (pantoprazole 40 mg oral delayed release tablet)?1?tab(s)?40?Milligram?By Mouth?Daily Risperidone (RisperDAL 1 mg oral tablet)?2?Milligram?2?tablet?By Mouth?Daily in AM Risperidone (RisperDAL 1 mg oral tablet)?3?Milligram?3?tablet?By Mouth?Daily at bedtime Thiamine (thiamine 100 mg oral tablet)?100?Milligram?1?tablet?By Mouth?Daily torsemide (torsemide 20 mg oral tablet)?1?tab(s)?20?Milligram?By Mouth?2 times a day Trazodone (traZODone 50 mg oral tablet)?50?Milligram?1?tablet?By Mouth?Daily at bedtime?as needed?Insomnia ? Results ?? Test Name Test Result Date/TimeWBC 8.2 k/mm3 03/21/2022 04:12 EST Hgb 11.9 Gm/dL 03/21/2022 04:12 EST Hct 34.7 % (Low) 03/21/2022 04:12 EST Platelet Count 237 k/mm3 03/21/2022 04:12 EST INR 1.1 03/21/2022 04:12 EST Protime (PT) 11.9 seconds (High) 03/21/2022 04:12 EST D-Dimer 0.54 mg/L FEU 03/21/2022 04:12 EST Sodium 133 mmol/L 03/21/2022 04:12 EST Potassium 5.0 mmol/L 03/21/2022 04:12 EST Chloride 94 mmol/L (Low) 03/21/2022 04:12 EST Bicarbonate Level 26 mmol/L 03/21/2022 04:12 EST Glucose Level 112 mg/dL (High) 03/21/2022 04:12 EST Glucose, POC 182 mg/dL (High) 03/20/2022 16:46 EST BUN 46 mg/dL (High) 03/21/2022 04:12 EST Creatinine-Blood 1.6 mg/dL (High) 03/21/2022 04:12 EST C-Reactive Protein 1.1 mg/dL (High) 03/21/2022 04:12 EST COVID-19 by RT-PCR POSITIVE (Abnormal) 03/20/2022 15:15 EST Hospital Progress note * Ximena Vera MD: PERFORM, MODIFY Event Display: Progress Note Hospital Authored Date: Patient: ??CARYL AVILA ? Age:??56 Years?Sex:??Female?:??1965?? Subjective Caryl seen sitting up in bed this morning and appears in good spirits. She went over some of the events of this admission, reports cyst on the back of her head that needed to be drained. She endorses I got the pandemic and reports she is aware she will need to isolate for a few days more. She denies current depression, anxiety, AVH or paranoia. She lives in her own apartment, some supports for her family but limited. She does report having a followup appt with [address] [place] [address] for mental health services but reports shewill be in trouble if she misses another appt. Per Caryl the appt is on 03/31 and Chris will give shaista ride there. ?? Review of Systems 10 point review of systems negative except Pertinent positives as above noted.?? Objective Vital Signs?? Temperature: 97.6 DegF (03/25/22 11:00:00) Temperature Route: Oral (03/25/22 11:00:00) Pulse Rate: 68 bpm (03/25/22 11:00:00) Respiratory Rate: 18 br/min (03/25/22 11:00:00) Systolic Blood Pressure:??139 mm Hg??High (03/25/22 11:00:00) Diastolic Blood Pressure:??88 mm Hg??High (03/25/22 11:00:00) Blood pressure sites: Arm, left (03/25/22 11:00:00) Mean Arterial Pressure: 103 mm Hg (03/25/22 03:14:00) Pulse Pressure: 51 mm Hg (03/25/22 11:00:00) Oxygen Saturation: 98 % (03/25/22 11:00:00) Mode of Delivery (Oxygen): Room air (03/25/22 11:00:00) Early Warning Score: 2 (03/25/22 11:16:20) ? Physical Exam ?? Mental Status Exam: Appearance: hospital garb, casual Attitude: cooperative. ? Motor activity: calm. ? Mood:?? good ? Affect: appropriate. ? Speech: fluent, unimpaired. ? Perception: no impairment. ? Orientation: intact. ? Memory: intact. ? Judgment: intact. ? Insight: intact. ? Thought process: goal-directed. ? Reliability:??fair ?? Suicidality/self-destructive behavior: none. ? Homicidality/violence: none. ?? _ Inpatient Medications Medications (34) Active SCHEDULED: (19) Benztropine 1 mg Tablet (benztropine 1 mg oral tablet) ??0.5 mg, By Mouth, 2 times a day Carvedilol 6.25 mg Tablet (Coreg 6.25 mg oral tablet) ??6.25 mg, By Mouth, 2 times a day Clonidine 0.1 mg Tablet (cloNIDine 0.1 mg oral tablet) ??0.1 mg, By Mouth, Daily Clotrimazole 1% Cream (Clotrimazole 1% Topical) ??1 application, Topically, 2 times a day Divalproex 500 mg Tablet (Depakote Tablet) ??1,000 mg, By Mouth, 2 times a day Enoxaparin 40 mg Inj (Enoxaparin Inj) ??40 mg 0.4 mL, Subcutaneous Injection, 2 times a day Folic Acid 1 mg Tablet (folic acid 1 mg oral tablet) ??1 mg, By Mouth, Daily Insulin Glargine 100 units/mL Inj (Insulin Glargine Inj) ??12 units 0.12 mL, Subcutaneous Injection, Daily in AM Insulin Lispro 100 units/mL Inj (3mL) (Insulin LISPRO Sliding Scale) ??2-10 units, Subcutaneous Injection, 3 times a day before meals Lactulose 20 Gm/30mL Syrup (lactulose 10 gm/15 ml oral syrup) ??20 Gm 30 mL, By Mouth, 2 times a day Multivitamin Therapeutic / Minerals Tablet (Multivit Therapeutic/Minerals Tablet) ??1 tablet, By Mouth, Daily NaCl 0.9% Flush 3ml (NaCL 0.9% Flush) ??3 mL, IV Push, 3 times a day NaCl 0.9% Flush 3ml (NaCL 0.9% Flush) ??3 mL, IV Push, 3 times a day Pancrelipase 3,000 unit Capsule (Pancrelipase ER Capsule) ??12,000 units 4 capsule, By Mouth, 3 times a day with meals Pantoprazole 40 mg EC Tablet (pantoprazole 40 mg oral delayed release tablet) ??40 mg, By Mouth, Daily Risperidone 1 mg Tablet (RisperDAL 1 mg oral tablet) ??3 mg, By Mouth, Daily at bedtime Risperidone 1 mg Tablet (risperiDONE 1 mg oral tablet) ??2 mg, By Mouth, Daily in AM Spiriva Respimat 2.5 mcg Inhaler (Spiriva Respimat Inhaler) ??2 puffs, Inhalation, Daily Thiamine 100 mg Tablet (thiamine 100 mg oral tablet) ??100 mg, By Mouth, Daily CONTINUOUS: (0) PRN: (15) Acetaminophen 325 mg Tablet (Acetaminophen Tablet) ??650 mg, By Mouth, Every 4 hours Albuterol 90mcg/Inhalation Inhaler HFA (Albuterol 90 mcg Inhaler) ??180 mcg 2 puffs, Inhalation, Every 4 hours Dextromethorphan-Guaifenesin 20 mg-200 mg/10 mL Liqu UD (Robitussin DM Liquid) ??10 mL, By Mouth, Every 4 hours diphenhydrAMINE 25 mg Tablet (Benadryl Tablet) ??25 mg, By Mouth, 3 times a day Haloperidol 5 mg Tablet (haloperidol 5 mg oral tablet) ??5 mg, By Mouth, 3 times a day Haloperidol Lactate 5 mg/mL Inj (1 mL) (Haldol LACTATE Inj) ??2.5 mg 0.5 mL, Intramuscular, Daily HydrOXYzine Pamoate 25mg Capsule (hydrOXYzine pamoate 25 mg oral capsule) ??50 mg, By Mouth, 3 times a day Lorazepam 1 mg Tablet (Lorazepam) ??2 mg, By Mouth, Every 6 hours Melatonin 3 mg Tablet (Melatonin Tablet) ??3 mg, By Mouth, Daily at bedtime Nicotine 2 mg Gum (Nicotine Gum) ??2 mg, Chew, Every hour Ondansetron 4 mg ODT (ondansetron 4 mg oral tablet, disintegrating) ??4 mg, By Mouth, Every 6 hours Polyethylene Glycol 17 Gm Powder (MiraLax Powder) ??17 Gm 1 pack/packet, By Mouth, Daily Senna 8.6 mg / Docusate 50 mg tablet (Docusate/Senna Tablet) ??1 tablet, By Mouth, 2 times a day Simethicone 80 mg Chewable Tablet (Simethicone Tablet) ??80 mg, Chew, 3 times a day Trazodone 50 mg Tablet (traZODone 50 mg oral tablet) ??50 mg, By Mouth, Daily at bedtime ? Results Recent Labs CHEM GENERAL Glucose, POC 85 mg/dL ()?? 03/25/2022 07:37 ? Assessment/Plan Caryl Avila is a 56-year-old female with a psychiatric history of schizoaffective disorder bipolar type, multiple??inpatient psychiatric hospitalizations??and medical history of??hypertension, hyperlipidemia, diabetes mellitus, cirrhosis, CKD, asthma, chronic smoker, CHF, and recent diagnosis of mastoiditis/post-auricular abscess, who initially presented to [facility] on 03/18/22 due to psychosis and agitation following a medical admission from 03/09 to 03/18??for treatment of right-sided postauricular abscess??with abscess cavity??evacuation and??course of antibiotics. Unfortunately, patient tested positive for COVID-19 on 03/20 requiring transfer to medicine as??[facility] does not have the resources??to manage COVID-positive patients ?? Caryl presents calm, cooperative and engaging today with no overt signs of paulie and psychosis. She has a chronically poor baseline however appears to be doing well in recent days. Caryl was able to enggae with this creative services writer about her recent medical admission and also is aware of her community behavioral health??followup as well. ?? I confirmed with MARVEL and Caryl??does have an appt next week 03/31 at 11:30am at [facility]. ?? At this time Caryl no longer??meets criteria for a psychiatric admisison as she is at her baseline. ?? Diagnosis Schizoaffective Disorder,??Bipolar Type ??Cocaine use ? Recommendations: -Pt is psychiatrically cleared for DC -Has followup appt at [address] [place] [address] on 03/31/22 at 11:30 -Continue Depakote 1000mg BID, Risperidone 2mg in the am, 3mg qhs and Cogentin 0.5mg BID ? Greater than??35 minutes spent on this consult including review of patient???s chart, examination of the patient, writing chart notes, and communicating with health child care associate teacher and/or the patient???s family. * Nazia Tapia RN: SIGN, MODIFY, PERFORM, SIGN, VERIFY Event Display: Progress Note Hospital Authored Date: Patient: CARYL AVILA Age: 56 years Sex: Female : 1965 Associated Diagnoses: None Author: Nazia Tapia RN Findings Problem Related to Alteration in Respiratory Function (new) : Alteration in Respiratory Function/new. Narrative/Incidental Pt is a xo x 3, Lungs are clear, no cough noted, pt is ambulatory in the room, appetite is fair, last BM yesterday, refused lactulose today, skin is intact. Pt is from [facility] and anticipate that she will return after she is off isolation. . * Nazia Tapia RN: PERFORM Event Display: Progress Note Hospital Authored Date: Pt to be discharged home today with [facility].Medicaitons to be delivered to floor, I attempted to review the DC instructions with the pt, who stated I don't need to read it I already know it . David Rideliane has been booked for [id number], pt has been notified and is aware * Irina Tapia LPN: PERFORM, SIGN, VERIFY Event Display: Progress Note Hospital Authored Date: Patient: CARYL AVILA Age: 56 years Sex: Female : 1965 Associated Diagnoses: None Author: Irina Tapia LPN Findings Problem Related to Alteration in Respiratory Function (new) : Alteration in Respiratory Function/new 03/25/2022 4:00 EST Alteration in Resp Status Related to COVID - 19 Goals & Outcomes, Respiratory Pt will maintain/resume baseline physical assessment, Pt will notdevelop complications r/t mechanical ventilation, Pt will maintain adequate nutritional intake, Pt will maintain/resume normal fluid/electrolyte balance, Pt will not develop complications r/t immobility, Pt will demonstrate proper technique w/self care procedures Interventions, Respiratory Assess/monitor tolerance to IV infusions; verify rate/dose, Assess for and report S&S of respiratory distress, Position for comfort & optimal oxygenation, Initiate pulmonary rehab nurse consult, Monitor sputum color & consistency. Report changes to MD CLEMENS Goals/Interventions, Respiratory Yes Respiratory, Problem Start 03/21/2022 23:30 Reviewed Plan with, Respiratory Patient Patient Progression, Respiratory Patient progressing according to plan . Nursing Data Vital Signs : VITAL SIGNS SECTION 03/25/2022 3:14 EST Temperature 97.3 DegF Temperature Route Oral Pulse Rate 62 bpm Respiratory Rate 18 br/min Systolic Blood Pressure 143 mm Hg H Diastolic Blood Pressure 83 mm Hg Blood pressure sites Arm, right Mean Arterial Pressure 103 mm Hg Pulse Pressure 60 mm Hg Oxygen Saturation 98 % Mode of Delivery (Oxygen) Room air . Narrative/Incidental A/Ox4. Precautions maintained for Covid. LSCTA. Non-productive cough noted. PRN Cough syrup administered as ordered, good effect. No s/sx hypo/hyperglycemia noted. Skin c/d/i. Pt continent of bowel and bladder with x1 episode of incontinence of urine, care provided. Snack and beverages provided throughout shift. Frequent rounding to ensure safety maintained. Pt noted resting peacefully in bed, bed in low locked position. Personal items and call higuera in reach.. Note * Nazia Tapia RN: PERFORM Event Display: Discharge/Transfer Note Hospital Authored Date: [id number] Nursing Discharge Note Entered On: 03/25/2022 16:00 EST Performed On: 03/25/2022 15:59 EST by Nazia Tapia RN Nursing Discharge Note 2 Discharge Time : 03/25/2022 15:10 EST Discharge Level of Care at Discharge : Homehealth/VNA Discharge VNA/Hospice/Home Care(v001) : [facility] Care Patient Left Unit Via : Wheelchair Patient Accompanied Off Unit with : Responsible adult DC Instructions Provided & Signed by Pt : Yes Patient Understands D/C Instructions : Yes Patient Instructions Discharge Signed : Yes Did Pt have Specialty Bed or Wound Vac : No Willie RAMIREZ, Nazia - 03/25/2022 15:59 EST * Nadia Rodriguez MD: PERFORM Event Display: Discharge/Transfer Note Hospital Authored Date: [id number] Patient: ??AVILA, CARYL ? Age:??56 Years?Sex:??Female?:??1965?? Patient Information Discharge Location: A Primary Care Physician: Jaki Bishop MD Admit Date/Time: 03/20/22 23:36 Discharge Disposition Discharge Disposition: Home with Home Health Discharge Diagnosis COVID (U07.1) Cirrhosis of liver (Steatohepatitis/NAFLD, Suspected GI Sarcoidosis but no findings sarcoid 2013 liver biopsy) (K74.60) Diabetes (E11.9) History of Chronic pancreatitis & Pseudocyst (K86.1) Hypertension (I10) Schizoaffective disorder, bipolar type (F25.0) Acute renal failure superimposed on stage 2 chronic kidney disease (N17.9) Chronic diastolic heart failure (I50.32) Asthma Bipolar Disorder Biventricular HF (heart failure, EF 20-30%) CS (cervical spondylosis) Chronic kidney disease (CKD) Chronic low back pain w/Bilateral LE Radiculopathy (Lumbar DDD, MRI 03/2011) Cirrhosis of liver (Steatohepatitis/NAFLD, Suspected GI Sarcoidosis but no findings sarcoid 2013 liver biopsy) Diabetes History of Chronic pancreatitis & Pseudocyst Hypertension Incisional hernia Nicotine dependence Obesity (BMI 30.0-34.9) Pulmonary HTN, Severe Schizoaffective Disorder (history multiple psych admissions) ?? _ Discharge Medications Acetaminophen (acetaminophen 325 mg oral tablet)?650?Milligram?2?tablet?By Mouth?Every 6 hours?as needed?as needed for pain Benztropine (benztropine 1 mg oral tablet)?0.5?Milligram?0.5?tablet?By Mouth?2 times a day?for 30?Days Carvedilol (Coreg 6.25 mg oral tablet)?6.25?Milligram?1?tablet?By Mouth?2 times aday?for 30?Days Clonidine (cloNIDine 0.1 mg oral tablet)?0.1?Milligram?1?tablet?By Mouth?Daily?for 30?Days DiphenhydrAMINE (diphenhydrAMINE 25 mg oral tablet)?25?Milligram?By Mouth?3 times a day?as needed?Agitation Divalproex Sodium (divalproex sodium 500 mg oral enteric coated tablet)?1,000?Milligram?ByMouth?2 times a day?for 30?Days Docusate-Senna (docusate-senna 50 mg-8.6 mg oral capsule)?1?capsule?By Mouth?2 times a day?as needed?Constipation Durable Medical Equipment (Alcohol Wipes)?See Instructions?Use when checking blood glucose levels TID. Diagnosis: Type II DM, ICD10 E11.9 Durable Medical Equipment (Freestyle Lite Lancets)?See Instructions?Use when checking blood glucose levels TID. Diagnosis: Type II DM, ICD10 E11.9 Durable Medical Equipment (Freestyle Lite Monitor)?See Instructions?for 30?Days?Use when checking blood glucose levels TID. Diagnosis: Type II DM, ICD10 E11.9 Durable Medical Equipment (Freestyle Lite Test Strips)?See Instructions?Use when checking blood glucose levels TID. Diagnosis: Type II DM, ICD10 E11.9 Folic Acid (folic acid 1 mg oral tablet)?1?Milligram?1?tablet?By Mouth?Daily Guaifenesin/Dextromethorphan (dextromethorphan-guaifenesin 10 mg-100 mg/5 mL oral liquid)?5?Milliliter?By Mouth?4 times a day?as needed?Cough?for 14?Days HydrOXYzine (hydrOXYzine pamoate 50 mg oral capsule)?1?capsule?50?Milligram?By Mouth?3 times a day?as needed?Anxiety?for 30?Days Insulin Glargine (Lantus Solostar Pen 100 units/mL subcutaneous solution)?6?unit(s)?Subcutaneous Injection?Daily in AM Insulin Lispro (Insulin Lispro KwikPen 100 units/mL injectable solution)?See Instructions?INJECT SUBCUTANEOUSLY 3 (THREE) TIMES A DAY BEFORE MEALS VIA sliding scale (150-199 2u; 200-249 4u; 250-299 6u; 300-349 8u; 350-399 10u; >400 call VNA) Multivitamin With Minerals (Multivit Therapeutic/Minerals Tablet)?1?tab(s)?By Mouth?Daily Nicotine (Nicotine 2 mg gum)?1?Each?2?Milligram?Chew?Every hour?as needed?as needed for smoking cessation Pancrelipase (Creon 12,000 units oral delayed release capsule)?1?capsule?By Mouth?3 times a day Pantoprazole (pantoprazole 40 mg oral delayed release tablet)?1?tab(s)?40?Milligram?By Mouth?Daily Risperidone (risperiDONE 2 mg oral tablet)?2?Milligram?1?tablet?By Mouth?Daily Dominique?for 30?Days Risperidone (risperiDONE 3 mg oral tablet)?3?Milligram?1?tablet?By Mouth?Daily atbedtime Thiamine (thiamine 100 mg oral tablet)?100?Milligram?1?tablet?By Mouth?Daily?for 30?Days Tiotropium (tiotropium 2.5 mcg/inh inhalation aerosol)?2?puff(s)?Inhalation?Daily?for 30?Days ? Durable Medical Equipment Current home treatments: Other: Medication management (03/22/22) On Admit VNA/Hospice/Home Care: [facility] [place] [address] (03/22/22) Name of Agency #1: [facility] ??[phone] (02/02/22) Agency Equal Employment Opportunity Officer #1: Erica, clinical front line supervisor, [facility] (02/02/22) Service Categories #1: Senior Care (02/02/22) Service Comments #1: [facility], your current home care provider, will resume your home assisted visits for medication management. The agency or your primary nurse. will contact you directlyto schedule your next home nursing visit. (02/02/22) Ambulatory devices needed: None (03/24/22) ? Medications Started ??all above meds were prescribed on discharge as pt mentioned she does not have any meds at home Medications Discontinued none Allergies Allergies ?(Active and Proposed Allergies Only) NSAIDs? (Severity: Unknown severity, Onset: Unknown) ?Comments: lsited due to pt's liver disease predniSONE? (Severity: Unknown severity, Onset: Unknown) ?Reactions: Dizzinesses ? 02-JAN-2016 21:52:27<$> Zyprexa? (Severity: Unknown severity, Onset: Unknown) ?Reactions: Hypertension ? Objective Assessment and Plan 56-year-old female with??hypertension, hyperlipidemia, type 2 diabetes, cirrhosis, CKD, asthma, CHFwith LVEF 55 to 60% on echo from June 2021, class III obesity, schizoaffective disorder, multiple inpatient psychiatric hospitalizations who is being transferred from [facility] after she was found to be C OVID-positive. ?? COVID (U07.1):??Was noted to have a temperature of 102 and was complaining of nausea. COVID-19 PCR obtained was positive. Her O2 sats have remained between 96 to 98% on room air. Received [employer] COVID-19 vaccination on September 03, 2020.?? Initial positive test:??Mar 20 Symptom onset:??Mar 20 Imaging:??Chest x-ray ordered Inflammatory markers:??D-dimer 0.54. CRP 1.1 ?? Afebrile, remains on room air. overall improving ? COVID treatment: Respiratory Support:??Currently maintaining her??O2 sats??on room air Dexamethasone:??Not indicated Awake proning/partial proning ordered COVID-19 isolation protocol until??Mar 30 ??Pt currently asymptomatic, need to maintain isolation until 03/30 ? Hypotension-resolved.?? Acute renal failure superimposed on stage 2 chronic kidney disease (N17.9):??resolved Baseline creatinine appears to be 0.8-1.??Likely prerenal.?? nursing note??mentions that she had??declined??breakfast since she was nauseous.??Being on ARB and??torsemide??likely??contributed. -Hold??torsemide and losartan on discharge ? Tobacco dependence, likely undiagnosed COPD - stated on prn alb, spiriva. needs outpatient pulm referral, PFTs.? Schizoaffective disorder, bipolar type (F25.0):??She had been admitted to [facility] for management of psychosis and agitation. She had presented with paranoid delusions, disorganized thinking and irritable behavior. ??Seen by psych today, has been cleared for discharge -Continue Depakote 1000mg BID ??-Continue Risperidone 2mg qAM, 3mg qHS ??-Continue Benztropine 0.5mg BID - F/u with psych as OP ? Chronic diastolic heart failure (I50.32):??Nonischemic cardiomyopathy (LV EF elizabeth 20-30%), subsequently recovered.??Appears euvolemic.??Hold torsemide??and losartan??. Continue Coreg ??Torsemide, losartan can be resumed as OP by PCP ?? Diabetes (E11.9):??Diagnosed in??2019. Type II versus??related to pancreatic??insufficiency. Patient was on Lantus 12 units and sliding scale, was hypoglycemic, decrease Lantus dose to 6 unitsdaily, continue sliding scale Insulin and diabetic supplies prescribed on discharge . ?? History of Chronic pancreatitis & Pseudocyst (K86.1):??Continue pancrelipase ? Hypertension (I10):??Home medications include carvedilol 6.25 mg twice a day, clonidine 0.1 mg daily,??losartan 50 mg daily.?? continue carvedilol, clonidine? . Physical Exam GENERAL: In no apparent distress HEENT: Head normocephalic, PERRL,Moist mucous membrane. Neck supple CARDIOVASCULAR: Normal rate and rhythm, no murmurs, no rubs, no gallops RESPIRATORY: Lungs clear to auscultation, no wheezes , no crackles ABDOMEN/GI: Nondistended, soft, nontender, normal bowel sounds EXTREMITIES: No pitting edema BUSINESS SERVICES MANAGER: Alert and oriented x 3.Non focal neuro exam. ? Consultants Psychiatry Pending Results BUN ordered on 03/24/2022 COVID-19 (2019 Novel Coronavirus) PCR ordered on 03/22/2022 COVID-19 (2019 Novel Coronavirus) PCR ordered on 03/25/2022 Creatinine ordered on 03/24/2022 Electrolytes ordered on 03/24/2022 Patient Education Titles COVID-19: Vaccines and Prevention?? Coronavirus Disease 2019 (COVID-19): Caring for Yourself or Others?? Coronavirus Disease 2019 (COVID-19): Overview?? Follow-Up Appointments Added Follow Up ?Time Frame ?Comments Dario HAYDEN, Jaki?1 to 2 weeks?pl call DAHIANA to schedule appointment [facility]?03/31/2022 11:30 Post Discharge Care Discharge ?03/25/22 12:38:00 EST Discharge Prescriptions ?ePrescribed, ??03/25/22 12:38:00 EST Home Health Face to Face *Denotes mandatory strange ?? *I certify that this patient is under my care and that I or an allowed non- physician working with me had a face to face encounter with the patient on this date:??03/25/2022 12:54 ?? *The encounter with the patient was in whole, or in part, for the following medical condition, which is the primary diagnosis(es) for home health care:??COVID (U07.1) Cirrhosis of liver (Steatohepatitis/NAFLD, Suspected GI Sarcoidosis but no findings sarcoid 2013 liver biopsy) (K74.60) Diabetes (E11.9) History of Chronic pancreatitis & Pseudocyst (K86.1) Hypertension (I10) Schizoaffective disorder, bipolar type (F25.0) Acute renal failure superimposed on stage 2 chronic kidney disease (N17.9) Chronic diastolic heart failure (I50.32) Asthma Bipolar Disorder Biventricular HF (heart failure, EF 20-30%) CS (cervical spondylosis) Chronic kidney disease (CKD) Chronic low back pain w/Bilateral LE Radiculopathy (Lumbar DDD, MRI 03/2011) Cirrhosis of liver (Steatohepatitis/NAFLD, Suspected GI Sarcoidosis but no findings sarcoid 2012 liver biopsy) Diabetes History of Chronic pancreatitis & Pseudocyst Hypertension Incisional hernia Nicotine dependence Obesity (BMI 30.0-34.9) Pulmonary HTN, Severe Schizoaffective Disorder (history multiple psych admissions) ? *Select the indications for the discipline/s that are being arranged for this patient. Nursing (select all that apply): [_] None [x_] Medication management (reconciliation, teaching)?? [_] Chronic disease management?? [_] Wound care and treatment?? [_] Home safety evaluation [_] Administer SQ/IM/IV medications?? [_] Cath care?? [_] Drain care?? [_] Trach or GT care?? Other _resume VNA services Occupation Therapy (select all that apply): [_] None [_] ADL Management [_] Fall prevention training [_] Energy conservation [_] Cognitive training Other _ Physical Therapy (select all that apply): [_] None [_] Functional mobility training [_] Home exercise program to strengthen [_] Increase ROM?? [_] Falls prevention training [_] Home maintenance program for chronic disease Other _ Speech Therapy (select all that apply): [_] None [_] Swallow evaluation and training [_] Speech and language training [_] Cognitive training to process, organize, and/or recall information Other _ ? *Homebound due to (select all that apply): [x_] Inability to leave home without assistance/supervision [_] Inability to ambulate without assistance [_] Pain [_] Decreased strength and endurance [_] Unsteady gait [_] Severe SOB and fatigue [_] Impaired transfers [_] Inability to negotiate stairs [_] Limited weight bearing [_] Mental status change? *Physician Signature: _Nadia Rodriguez mD ?? *By signing this, I certify that I have personally evaluated the patient and agree with the findings and recommendations as documented above. ? Results Discharge Labs BLOOD COUNT & DIFF WBC 6.5 k/mm3 ()?? 03/22/2022 01:02 RBC 3.95 m/mm3 (Low)?? 03/22/2022 01:02 Hgb 12.1 Gm/dL ()?? 03/22/2022 01:02 Hct 36.7 % ()?? 03/22/2022 01:02 MCV 92.9 femtoliters ()?? 03/22/2022 01:02 MCH 30.6 pg ()?? 03/22/2022 01:02 MCHC 33.0 g/dL ()?? 03/22/2022 01:02 Platelet Count 214 k/mm3 ()?? 03/22/2022 01:02 RDW-SD 49.5 femtoliters (High)?? 03/22/2022 01:02 MPV 13.2 femtoliters (High)?? 03/22/2022 01:02 Nucleated RBC (Automated) 0.0 #/100 WBC'S ()?? 03/22/2022 01:02 Abs. NRBC 0.0 k/mm3 ()?? 03/22/2022 01:02 Abs. Neut 2.1 k/mm3 ()?? 03/21/2022 04:12 Abs. Lymph 3.7 k/mm3 (High)?? 03/21/2022 04:12 Abs. [place] 2.3 k/mm3 (High)?? 03/21/2022 04:12 Abs. Eo 0.0 k/mm3 ()?? 03/21/2022 04:12 Abs. Baso 0.0 k/mm3 ()?? 03/21/2022 04:12 Neut % 25.3 % (Low)?? 03/21/2022 04:12 Lymph % 45.7 % (High)?? 03/21/2022 04:12 [place] % 28.4 % (High)?? 03/21/2022 04:12 Eos % 0.1 % ()?? 03/21/2022 04:12 Baso % 0.4 % ()?? 03/21/2022 04:12 Imm Gran 0.1 % ()?? 03/21/2022 04:12 Abs. Imm Gran 0.0 k/mm3 ()?? 03/21/2022 04:12 ?? CARDIAC Nt-Probnp 590 pg/mL (High)?? 03/21/2022 04:12 ? CHEM GENERAL Sodium 132 mmol/L (Low)?? 03/23/2022 08:26 Potassium 5.6 mmol/L (High)?? 03/23/2022 08:26 Chloride 97 mmol/L (Low)?? 03/23/2022 08:26 Bicarbonate Level 26 mmol/L ()?? 03/23/2022 08:26 Anion Gap 9 ()?? 03/23/2022 08:26 Glucose Level 112 mg/dL (High)?? 03/21/2022 04:12 Glucose, POC 137 mg/dL (High)?? 03/25/2022 11:14 BUN 25 mg/dL (High)?? 03/23/2022 08:26 Creatinine-Blood 0.9 mg/dL ()?? 03/23/2022 08:26 Estimated GFR Creatinine 77 ML/MIN/1.73 M2 ()?? 03/23/2022 08:26 Calcium 9.1 mg/dL ()?? 03/21/2022 04:12 Alkaline Phosphatase 247 units/L (High)?? 03/22/2022 01:02 AST (SGOT) 65 units/L (High)?? 03/22/2022 01:02 ALT (SGPT) 50 units/L (High)?? 03/22/2022 01:02 Bilirubin, Total 0.3 mg/dL ()?? 03/22/2022 01:02 Bilirubin, Direct <0.2 mg/dL ()?? 03/22/2022 01:02 Bilirubin, Indirect Direct bilirubin is less than the measureable limit. Therefore, indirect mg/dL ()?? 03/22/2022 01:02 C-Reactive Protein <0.3 mg/dL ()?? 03/23/2022 08:26 ?? COAG INR 1.1 ()?? 03/21/2022 04:12 Protime (PT) 11.9 seconds (High)?? 03/21/2022 04:12 D-Dimer 0.54 mg/L FEU ()?? 03/21/2022 04:12 ? HEME OTHER Hold Lavender Top SPECIMEN DISCARDED AFTER 24 HOURS. ()?? 03/23/2022 08:26 ? UA/URINALYSIS Appear/Color, Urine LIGHT YELLOW ()?? 03/22/2022 03:34 Specific [place], Urine 1.017 ()?? 03/22/2022 03:34 pH, Urine 5.5 ()?? 03/22/2022 03:34 Albumin, Urine NEGATIVE ()?? 03/22/2022 03:34 Glucose, Urine NEGATIVE ()?? 03/22/2022 03:34 Ketones, Urine NEGATIVE ()?? 03/22/2022 03:34 Bilirubin, Urine NEGATIVE ()?? 03/22/2022 03:34 Hemoglobin, Urine NEGATIVE ()?? 03/22/2022 03:34 Nitrite, Urine NEGATIVE ()?? 03/22/2022 03:34 Leukocyte, Urine NEGATIVE ()?? 03/22/2022 03:34 Urobilinogen NORMAL mg/dL ()?? 03/22/2022 03:34 WBC's, Urine <1 /HPF ()?? 03/22/2022 03:34 RBC's, Urine 1 /HPF ()?? 03/22/2022 03:34 Squamous Epith <1 /HPF ()?? 03/22/2022 03:34 Mucus SLIGHT /LPF ()?? 03/22/2022 03:34 ? 45_ minutes spent on discharge * Chinyere Soto RN: VERIFY, PERFORM, SIGN Event Display: Case Management Discharge Plan Authored Date: Patient: CARYL AVILA Age: 56 years Sex: Female : 1965 Associated Diagnoses: None Author: Chinyere Soto RN Discharge Plan Case Management Discharge Plan : Case Management Discharge Plan Data 03/25/2022 12:48 EST Discharge Level of Care at Discharge Homehealth/VNA Discharge VNA/Hospice/Home Care [facility] Care Name of Agency #1 [facility] Agency Equal Employment Opportunity Officer #1 intake Service Categories #1 Senior Care Service Comments #1 You are going home with nursing services to resume from [facility]. * Ute Zhang RN: PERFORM Event Display: Patient Education/Instruction Authored Date: [id number] Inpatient Adult Discharge Instructions [address] [address] Name: CARYL AVILA : 1965 Visit: 03/20/2022 23:36:00 Current Date: 03/25/2022 13:40 Account: [id number] Inpatient Adult Discharge Instructions We would like to thank you for allowing us to assist you with your healthcare needs. The following includes patient education materials and information regarding your injury/illness. Our entire staffstrives to provide an excellent experience for our patients and their families. PLEASE ENSURE YOU FOLLOW-UP PER THE INSTRUCTIONS BELOW! ?? YOUR OPINION IS IMPORTANT TO US! Please complete the survey you may receive by mail or email. Your feedback will be used to make improvements to the healthcare experiences of our patients and their families. Surveys are administered by [employer] ?? If further treatment with your primary care physician or another doctor is recommended, it is important for you to keep the appointment. Call your primary care physician or return to the Emergency Department immediately if your condition worsens, fails to improve, or new symptoms develop. If you need to find a doctor, you can call [facility] for a referral at [phone] or toll free at [phone] or log in to [email or web address].. ?? You can view and manage your care through the patient portal or by using a health care nii of your choosing. [employer] is a website that allows you to securely view your medical information including your hospital discharge summary, office visit summaries, medications and follow-up visits. You can also request appointments, renew medications, and request access to your medical information using a health care nii of your choosing, or just ask a question. You can enroll at [email or web address] or register during your next office visit. You have been discharged from [facility], Patient Care Unit: D6A. If you have any questions regarding these instructions after you leave, please call us and we will be happy to assist you. [facility] Your Care Team Attending Physician Michael HAYDEN, Nadia Consulting Providers Nicky HAYDEN, Ruth; Chuy HAYDEN, Rita Bess MD, Miguel Espinal Discharging Providers Michael HAYDEN, Nadia Reason for Admission COVID SOB NAUSEA Your Diagnosis COVID Cirrhosis of liver (Steatohepatitis/NAFLD, Suspected GI Sarcoidosis but no findings sarcoid 2013 liver biopsy) Diabetes History of Chronic pancreatitis & Pseudocyst Hypertension Schizoaffective disorder, bipolar type Chronic diastolic heart failure Acute renal failure superimposed on stage 2 chronic kidney disease Tests Performed Below is a partial list of the tests performed during your hospitalization. You may have had other tests and procedures not included in this list. Please discuss all test results with your provider. Alk Phos ALT AST B Type Natriuretic Peptide Bilirubin Total + Direct C Reactive Protein Calcium Level CBC CBC w/ Differential CRP D Dimer Glucose Level GLUCOSE POC HOLD LAVENDER TUBE INR UA Portable Chest Primary Care Provider Jaki Bishop MD Advance Directive Health Care Proxy on File Yes - Health Care Proxy No qualifying data available. Discharge Vitals Temperature: 97.6 DegF Height: 167 cm Pulse Rate: 68 bpm Weight: 113 kg Respiratory Rate: 18 br/min Body Mass Index:??40.52 kg/m2??Critical Systolic Blood Pressure:??139 mm Hg??High Body surface area: 2.29 Diastolic Blood Pressure:??88 mm Hg??High ?? Oxygen Saturation: 98 % ?? Studies Pending All tests and labs ordered during this hospital stay have been completed unless listed below. Please discuss all pending results with your provider listed above in these instructions. ?? BUN COVID-19 (2019 Novel Coronavirus) PCR Creatinine Electrolytes What to do next Instructions From Your Doctor Discharge Orders You Need to Schedule the Following Appointments Follow Up with??[facility] When??03/31/2022 11:30 AM EST Where: [address] [place] [address] [phone] Follow Up with??Jaki Bishop MD When??Within 1 to 2 weeks Why: pl call DAHIANA to schedule appointment Where: ?? Discharge Medications CARYL AVILA :1965 Visit Date:03/20/2022 Medications: Please continue your medications until treatment is completed or stopped by your provider. Medications not listed below should be discontinued. Discuss any questions related to medications with your provider. What How Much When Instructions Next Dose New Tiotropium (tiotropium 2.5 mcg/ inh inhalation aerosol) 2 puff(s) Inhalation Daily Duration: 30 Days Pickup at [place] [address] 03/26/22 Changed Benztropine (benztropine 1 mg oral tablet) 0.5 tab(s) Oral Twice a day Duration: 30 Days Pickup at [place] [address] 03/25/22 9pm Changed Carvedilol (Coreg 6.25 mg oral tablet) 1 tab(s) Oral Twice a day Duration: 30 Days Pickup at [place] [address] 03/25/22 9pm Changed Clonidine (cloNIDine 0.1 mg oral tablet) 1 tab(s) Oral Daily [facility]: [facility] [place] [address] [facility] Changed DiphenhydrAMINE (diphenhydrAMINE 25 mg oral tablet) 25 Milligram Oral 3 times a day as needed for Agitation Pickup at [place] [address] as needed Changed Divalproex Sodium (divalproex sodium 500 mg oral enteric coated tablet) 1,000 Milligram Oral Twice a day Duration: 30 Days Pickup at [place] [address] 03/25/22 9pm Changed Guaifenesin/ Dextromethorphan (dextromethorphan-guaifenesin 10 mg-100 mg/ 5 mL oral liquid) 5 Milliliter Oral 4 times a day as needed for Cough Duration: 14 Days Pickup at [place] [address] 03/25/22 6pm as needed Changed HydrOXYzine (hydrOXYzine pamoate 50 mg oral capsule) 1 capsule Oral 3 times a day as needed for Anxiety Duration: 30 Days Pickup at [place] [address] as needed Changed Insulin Glargine (Lantus Solostar Pen 100 units/ mL subcutaneous solution) 6 unit(s) Subcutaneous Injection Daily in the morning Pickup at [place] [address] 03/26/22 am Changed Insulin Lispro (Insulin Lispro KwikPen 100 units/ mL injectable solution) See instructions INJECT SUBCUTANEOUSLY 3 (THREE) TIMES A DAY BEFORE MEALS VIA sliding scale (150- 199 2u; 200-249 4u;250-299 6u; 300-349 8u; 350-399 10u; >400 call VNA) ?? Pickup at [place] [address] 03/25/22 with meals Changed Risperidone (risperiDONE 2 mg oral tablet) 1 tab(s) Oral Daily in the morning Duration: 30 Days Pickup at [place] [address] 03/26/22 Changed Risperidone (risperiDONE 3 mg oral tablet) 1 tab(s) Oral Daily at Bedtime Pickup at [place] [address] 03/25/22 pm Changed Thiamine (thiamine 100 mg oral tablet) 1 tab(s) Oral Daily Duration: 30 Days Pickup at [place] [address] 03/26/22 Unchanged Acetaminophen (acetaminophen 325 mg oral tablet) 2 tab(s) Oral Every 6 hours as needed for as needed for pain every 6 hours as needed as needed Unchanged Docusate-Senna (docusate-senna 50 mg-8.6 mg oral capsule) 1 capsule Oral Twice a day as needed for Constipation two times a day as needed 03/25/22 9pm as needed Unchanged Durable Medical Equipment (Alcohol Wipes) See instructions Use when checking blood glucose levels TID. Diagnosis: Type II DM, ICD10 E11.9 ?? Pickup at [place] [address] Unchanged Durable Medical Equipment (Freestyle Lite Lancets) See instructions Use when checking blood glucose levels TID. Diagnosis: Type II DM, ICD10 E11.9 ?? [facility] [place] [address] Un[facility] Durable Medical Equipment (Freestyle Lite Monitor) See instructions Duration: 30 Days Use when checking blood glucose levels TID. Diagnosis: Type II DM, ICD10 E11.9 ?? [facility] [place] [address] Unchanged Durable Medical Equipment (Freestyle Lite Test Strips) See instructions Use when checking blood glucose levels TID. Diagnosis: Type II DM, ICD10 E11.9 ?? Pickup at [place] [address] Unchanged Folic Acid (folic acid 1 mg oral tablet) 1 tab(s) Oral Daily Pickup at [place] [address] 03/26/22 Unchanged Multivitamin With Minerals (Multivit Therapeutic/ Minerals Tablet) 1 tab(s) Oral Daily daily 03/26/22 Unchanged Nicotine (Nicotine 2 mg gum) 1 Each Chew Every hour as needed for as needed for smoking cessation every hour as needed as needed Unchanged Pancrelipase (Creon 12,000 units oral delayed release capsule) 1 capsule Oral 3 times a day Pickup at [facility] 03/25/22 5pm Unchanged Pantoprazole (pantoprazole 40 mg oral delayed release tablet) 1 tab(s) Oral Daily Pickup at [facility] 3 03/26/22 Pharmacy Information [facility]: [address], [place] [id number] [phone] ?? What How Much When Comments Stop Taking Clotrimazole Topical (Clotrimazole 1% Topical) 1 applicator Topically Twice a day Stop Taking Haloperidol (haloperidol 5 mg oral tablet) 1 tab(s) Oral 3 times a day as needed for Agitation Stop Taking Lactulose (lactulose 10 gm/ 15 ml oral syrup) 30 Milliliter Oral Twice a day Stop Taking Lorazepam (Ativan 2 mg oral tablet) 1 tab(s) Oral Every 6 hours as needed for Agitation use WITH haldol for agitation ?? Stop Taking Losartan (losartan 50 mg oral tablet) 1 tab(s) Oral Daily Stop Taking Melatonin (melatonin 3 mg oral tablet) 1 tab(s) Oral Daily at Bedtime as needed for Insomnia Stop Taking Ondansetron (ondansetron 4 mg oral tablet, disintegrating) 4 Milligram Oral Every 6 hours as needed for Nausea & Vomiting Stop Taking torsemide (torsemide 20 mg oral tablet) 1 tab(s) Oral Twice a day Stop Taking Trazodone (traZODone 50 mg oral tablet) 1 tab(s) Oral Daily at Bedtime as needed for Insomnia Test Results Below is a partial list of the most recent Laboratory test results done prior to this discharge. You may have had other tests and procedures not included in this list. Please discuss all test resultswith your provider. Alk Phos (03/22/2022) ???Alkaline Phosphatase - 247 units/L ALT (03/22/2022) ???ALT (SGPT) - 50 units/L AST (03/22/2022) ???AST (SGOT) - 65 units/L B Type Natriuretic Peptide (03/21/2022) ???Nt-Probnp - 590 pg/mL Bilirubin Total + Direct (03/22/2022) ? ?Bilirubin, Total - 0.3 mg/dL? ?Bilirubin, Direct - <0.2 mg/dL? ?Bilirubin, Indirect - Direct bilirubin is less than the measureable limit. Therefore, indirect C Reactive Protein (03/21/2022) ???C-Reactive Protein - 1.1 mg/dL Calcium Level (03/21/2022) ???Calcium - 9.1 mg/dL CBC (03/22/2022) ???WBC - 6.5 k/mm3???RBC - 3.95 m/mm3???Hgb - 12.1 Gm/dL???Hct - 36.7 %???MCV - 92.9 femtoliters???MCH - 30.6 pg???MCHC - 33.0 g/dL???Platelet Count - 214 k/mm3???RDW-SD - 49.5 femtoliters???MPV - 13.2 femtoliters???Nucleated RBC (Automated) - 0.0 #/100 WBC'S???Abs. NRBC - 0.0 k/mm3 CBC w/ Differential (03/21/2022) ???WBC - 8.2 k/mm3???RBC - 3.78 m/mm3???Hgb - 11.9 Gm/dL???Hct - 34.7 %???MCV - 91.8 femtoliters???MCH - 31.5 pg???MCHC - 34.3 g/dL???Platelet Count - 237 k/mm3???RDW-SD - 47.5 femtoliters???MPV - 12.4 femtoliters???Nucleated RBC (Automated) - 0.0 #/100 WBC'S???Abs. NRBC - 0.0 k/mm3???Abs. Neut - 2.1 k/mm3???Abs. Lymph - 3.7 k/mm3???Abs. [place] - 2.3 k/mm3???Abs. Eo - 0.0 k/mm3???Abs. Baso - 0.0 k/mm3???Neut % - 25.3 %???Lymph % - 45.7 %???[place] % - 28.4 %???Eos % - 0.1 %???Baso % - 0.4 %???Imm Gran - 0.1 %???Abs. Imm Gran - 0.0 k/mm3 CRP (03/23/2022) ? ?C-Reactive Protein - <0.3 mg/dL D Dimer (03/21/2022) ???D-Dimer - 0.54 mg/L FEU Glucose Level (03/21/2022) ???Glucose Level - 112 mg/dL GLUCOSE POC (03/25/2022) ???Glucose, POC - 137 mg/dL HOLD LAVENDER TUBE (03/23/2022) ???Hold Lavender Top - SPECIMEN DISCARDED AFTER 24 HOURS. INR (03/21/2022) ???INR - 1.1???Protime (PT) - 11.9 seconds UA (03/22/2022) ???Appear/Color, Urine - LIGHT YELLOW???Specific [place], Urine - 1.017???pH, Urine - 5.5???Albumin, Urine - NEGATIVE???Glucose, Urine - NEGATIVE???Ketones, Urine - NEGATIVE???Bilirubin, Urine - NEGATIVE???Hemoglobin, Urine - NEGATIVE???Nitrite, Urine - NEGATIVE???Leukocyte, Urine - NEGATIVE???Urobi linogen - NORMAL? ?WBC's, Urine - <1 /HPF? ?RBC's, Urine - 1 /HPF? ?Squamous Epith - <1 /HPF? ?Mucus - SLIGHT Allergies (NKA means No Known Allergies) NSAIDs Zyprexa??(Hypertension) predniSONE??(Dizzinesses -DEC-2015 21:52:27<$>) Problems Active Problems??(35) Age at leaving school 11th grade?? Asthma?? Atrophic vaginitis?? Bipolar Disorder?? Biventricular HF (heart failure, EF 20-30%)?? x4?? Chronic kidney disease (CKD)?? Chronic low back pain w/Bilateral LE Radiculopathy (Lumbar DDD, MRI 03/2011)?? Cirrhosis of liver (Steatohepatitis/NAFLD, Suspected GI Sarcoidosis but no findings sarcoid 2012 ismael?? COPD without exacerbation?? CS (cervical spondylosis)?? Diabetes?? Dyshidrotic eczema?? General medical?? Goal to have good health?? H/O tubal ligation?? 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-associated pneumonia)?? History of cholecystectomy?? History of Chronic pancreatitis & Pseudocyst?? History of splenectomy?? Hyperglycemia due to diabetes mellitus?? Hypertension?? Hypoxia?? Incisional hernia?? Leukocytosis?? Nicotine dependence?? Obesity (BMI 30.0-34.9)?? Pulmonary HTN, Severe?? Schizoaffective Disorder (history multiple psych admissions)?? Schizoaffective disorder, bipolar type?? Severe obesity?? Steatohepatitis (w/Stage III Fibrosis, Liver Biopsy 05/2012)?? Syncope and collapse?? Tobacco use?? Weakness?? Education Materials Below is the list of Educational Leaflet Providered with your Discharge Instructions. COVID-19: Vaccines and Prevention?? Coronavirus Disease 2019 (COVID-19): Caring for Yourself or Others?? Coronavirus Disease 2019 (COVID-19): Overview?? Valuables and Belongings I fully understand and agree that [facility] accepts no responsibility for all my personal property including clothing, toilet articles, radios, jewelry, dentures, hearing aids, rings, money, or any other property that is in my possession or is brought to me after admission. I understand certain valuables may be placed in a hospital safe for a short period of time. I understand that the hospital is not liable for loss or damage due to accident, fire, or other natural occurrence while said property is in the safe. I accept full responsibility for any personal property that I keep with me, and will not hold the hospital responsible in case of loss or disappearance. I acknowledge that i have been encouraged to send valuables and belongings home. ?? Review of Valuable and Belonging List: With patient, With witness Date for Pt to Sign Valuables/Belongings: 03/23/22 19:45:00 ?? Other Discharge Information ?? Wound Assessment?? Wound Assessment?? Wound Location I: Buttocks, Left Wound I, Present on Admission: Yes ?? Case Management Discharge Plan?? Discharge Plan?? Discharge Agency Information?? Discharge Level of Care at Discharge: Homehealth/VNA Name of Agency #1: [facility] Discharge VNA/Hospice/Home Care: [facility] Equal Employment Opportunity Officer #1: intake ?? Service Categories #1: Senior Care ?? Service Comments #1: You are going home with nursing services to resume from [facility]. ?? Pulmonary Rehab Status?? Pulmonary Rehab Discharge Status?? Respiratory Rate: 18 br/min ? Common Emergency Awareness Tips IS IT A STROKE? Act FAST and Check for these signs: FACE Does the face look uneven? ARM Does one arm drift down? SPEECH Does their speech sound strange? TIME Call at any sign of stroke ?? Heart Attack Signs Chest discomfort: Most heart attacks involve discomfort in the center of the chest and lasts more than a few minutes, or goes away and comes back. It can feel like uncomfortable pressure, squeezing, fullness or pain. Discomfort in upper body: Symptoms can include pain or discomfort in one or both arms, back, neck, jaw or stomach. Shortness of breath: With or without discomfort. Other signs: Breaking out in a cold sweat, nausea, or lightheaded. Remember, MINUTES DO MATTER. If you experience any of these heart attack warning signs, call to get immediate medical attention! ?? Smoking can increase your chances of developing chronic health problems and can cause harmful effects to other family members in your house. If you smoke, you are strongly encouraged to quit. Please call [facility] at [phone] or [phone]) or log in to [email or web address] for referrals to smoking cessation programs. ?? The National Suicide Prevention Hotline is available 11/10 if you or someone you know needs to find a reason to keep living. By calling 4-529-195-Sanaexpert (7258) you'll be connected to a skilled, trained counselor at a crisis center in your area. INPATIENT DISCHARGE INSTRUCTIONS SIGNATURE PAGE CARYL AVILA Location:[facility] Registration Date and Time:03/20/2022 23:36 EST Primary Care Physician: Dario HAYDEN, Jaki, I CARYL AVILA, have received the above patient education materials/instructions and have verbalized understanding. If ambulance or transport services are being used I further acknowledge being given a choice of service. ?? If you need to contact me, please call me at this number: . Patient/Software Engineer Web Services Name: Patient/Software Engineer Web Services Signature: Relationship to Patient: Witness Name/Signature: Date: * Nadia Rodriguez MD: PERFORM Event Display: Patient Education Leaflets Authored Date: [id number] COVID-19: Vaccines and Prevention ?? [id number] COVID-19: Vaccines and Prevention You can protect yourself, your household, and your community from severe illness from COVID-19. Thebest prevention is to have no contact with the SARS-CoV-2 virus, to follow safety precautions, and to get vaccinated. COVID-19 vaccines are available for people as young as 6 months old. Vaccines help prevent COVID- 19 and reduce the severity of illness if you get the virus. No vaccine is ever 100% effective in preventing any illness, but the COVID-19 vaccines work well and are safe. Talk with your healthcare provider about your risks and which vaccine may be best for you and your family. Expert groups, including ACOG and CDC, advise or people to be vaccinated. The vaccines are given as a shot (injection) into the muscle. There is a 1-dose vaccine from [employer] (J&&). It's available for people ages 18 and older. Or a 2-dose vaccine from Novavax is available for people 12 years and older. Doses are given several weeks apart. Pfizerand Moderna vaccines are available for people as young as 6 months old. They are given in doses a few weeks apart. Talk with your healthcare provider about which vaccine is best for you and your family. Booster shots People age 5 or older can get a COVID-19 booster shot. Boosters can help with protection against COVID-19 that may have decreased over time. Follow your healthcare provider's advice about your risk and when to return for your booster. ?? Take precautions: Know your community Know about the impact of COVID-19 in your area. This is called COVID-19 Community Level. Follow local instructions about being in public. Be aware of events in your community that may be postponed orcanceled, such as school and sporting events. You may be advised not to attend public gatherings.?? To prevent possible COVID-19 exposure, you may want to stay away from crowded areas and keep space between yourself and others. Move events outdoors instead of inside, if possible. You are less likely to be infected with COVID-19 during outdoor activities because the virus does not build up in the air outdoors as much as it does indoors. See the CDC website for guidance on improving airflow. Follow your community's mask guidance based on your area's Community Level. Wear a high-quality, well-fitted mask as advised. See the CDC website about mask use. Stay informed about COVID-19 travel guidelines in your area, such as mask requirements in public areas.??Even if you are fully vaccinated, don't travel if you have COVID-19 symptoms, have tested positive for COVID, or are waiting for the results of a COVID-19 test. Be aware of the most current CDC travel guidelines . Know when to get tested for COVID-19. See the CDC testing website for detailed information on when to test and how to get COVID-19 tests. If you have COVID-19 symptoms, test right away. ?? When you are at home ??? Wash your hands often. Use soap and clean, running water for at least 20 seconds. ??? If you don't have access to soap and water, use an alcohol-based hand accounting intern often. Make sure it has at least 60% alcohol. ??? Don't touch your eyes, nose, or mouth unless you have clean hands. ??? Don???t kiss someone who is sick. ??? If you need to cough or sneeze, do it into a tissue. Then throw the tissue into the trash. If you don't have tissues, cough or sneeze into the bend of your elbow. ??? When possible, don't touch high-touch shared surfaces such as doorknobs and handles, cabinet handles, and light switches. ??? Clean frequently-touched home surfaces often with disin fectant. This includes desk surfaces, printers, phones, kitchen counters, tables, fridge door handle, bathroom surfaces, and any soiled surface. Closely follow disinfectant label instructions. ??? Check your home supplies. Consider keeping a 2-week supply of medicines, food, and other needed household items. Ask your healthcare provider and check with your insurance plan about ordering a 3-month supply of medicines you need regularly. ??? Make a plan for childcare, work, and ways to stay in touch with others. Know who will help you if you get sick. ??? Don't be around people who are sick. ???Don???t share eating or drinking utensils with sick people. ?? If you leave home ??? Stay informed about all safety instructions in your area. ??? Be aware of high-touch public surfaces such as doorknobs and handles, cabinet handles, and light switches. If you touch these surfaces, try touching them using a tissue or paper towel. ??? Use an alcohol-based hand accounting intern often. Make sure it has at least 60% alcohol. ??? Don't touch your eyes, nose, or mouth unless you have clean hands. ??? If you need to cough or sneeze, do it into a tissue. Then throw the tissue into the trash. If you don't have tissues, cough or sneeze into the bend of your elbow. ??? Wear a mask as advised. Masks can help protect you and others from COVID-19. Consider wearing a high-quality mask or respirator in public when the COVID-19 Community Level is high, even if you are vaccinated. See the CDC's mask guidance. ?? If you are at a work site ??? Tell your front line supervisor if you are well but live with someone who has COVID-19. ??? Follow your employer's instructions on keeping physical distance from others. ??? Consider virtual meetings over phone or video if possible. ??? Don't use other people's desks, phones, equipment, or offices, if possible. ??? Wash your hands often. Use soap and clean, running water for atleast 20 seconds. ??? If you don't have access to soap and water, use an alcohol-based hand accounting intern often. Make sure it has at least 60% alcohol. ??? Don't touch your eyes, nose, or mouth unless you have clean hands. ??? Wear a face mask as advised by your employer, CDC guidance, and your community's instructions. ??? When possible, don't touch high-touch public surfaces such as doorknobs and handles, cabinet handles, and light switches. If you touch these surfaces, clean them first with a disinfecting wipe. Or touch them using a tissue or paper towel. ??? Limit group gatherings as advised.??? Consider not having office coffee or tea, or shared group foods. ??? Clean work surfaces often with disinfectant. This includes desk surfaces, photocopier, printer, phones, kitchen counters, fridge door handle, bathroom surfaces, and others. ??? Don???t touch other people???s personal work tools, such as phones, keyboards, pens, and other items. ??? Don???t touch other people???s eating or drinking utensils. ??? If you need to cough or sneeze, do it into a tissue. Then throw the tissue intothe trash. If you don't have tissues, cough or sneeze into the bend of your elbow. ?? If you have been exposed to a person with COVID-19 The risk of getting COVID-19 is lower after exposure if you are fully vaccinated and boosted. But follow these steps regardless of your vaccine status or if you've had a previous COVID-19 infection. If you've been exposed to someone with COVID-19 or you've been told by a healthcare provider or public health authority that you were exposed: ??? Wear a mask when you are around others inside your home or indoors in public as soon as you find out you were exposed. Day 0 is the day of your last exposure to someone with COVID-19. Day 1 is the first full day after your last exposure. ??? Keep wearing a mask for 10 full days after you have been exposed. ??? Don't go places where you are unable to we ar a mask. ??? Watch for symptoms such as fever, cough, and shortness of breath. If you develop symptoms, isolate in your home away from others right away and get tested. Stay home until you have your test results. See the CDC website about when you can end isolation after having COVID-19. ??? If you do not develop symptoms, get tested on day 6. This is at least 5 full days after your last exposure. Test even if you don't have symptoms. If your test is negative, continue wearing a mask when around others at home or indoors in public through day 10. If you test positive, isolate right away. ?? When to call your healthcare provider Call your healthcare provider if you think you have COVID-19 symptoms. These can include fever, cough, and trouble breathing. They may also include body aches, headache, chills or repeated shaking with chills, sore throat, loss of taste or smell, or diarrhea. Follow your healthcare provider's specific instructions. If you are at risk of getting severe COVID-19 and being hospitalized, don't delay c alling your provider. There are medicines and treatments that can be started to reduce serious COVID-19. ?? Do I still need a flu shot? It's especially important to keep up on recommended vaccines for other illnesses. This is true if you're at higher risk for severe illness from COVID- 19, the flu, or pneumonia. This includes older adults and those who have long- term (chronic) health conditions. Getting a yearly flu vaccine is advised for everyone 6 months old and older, with rare exceptions. Health experts advise the flu vaccine to protect you and others. COVID-19 vaccines can be given at the same time as other vaccines. ?? Last modified date: 11/26/2021 ?? Last Reviewed Date: 2021 ?? [employer]. All rights reserved. This information is not intended as a substitute for professional medical care. Always follow your healthcare professional's instructions. ?? * Nadia Rodriguez MD: PERFORM Event Display: Patient Education Leaflets Authored Date: [id number] Coronavirus Disease 2019 (COVID-19): Caring for Yourself or Others ?? 26937 Coronavirus Disease 2019 (COVID-19): Caring for Yourself or Others If you or a household member test positive for COVID-19 or have symptoms like fever, cough, fatigue, loss of taste or smell, follow these guidelines for preventing spread of the virus and managing symptoms. This is regardless of your vaccination status. If you have symptoms or have been diagnosed with COVID-19 If you have symptoms of COVID-19 or you test positive (even without symptoms): ??? Stay home at least 5 days and isolate in your home. Separate from others as much as possible. You are most likely infectious during these first 5 days. Day 0 is the first day you tested or first had symptoms. Day 1 is the first full day after your symptoms started or following your positive test. See the CDC's website for current, detailed information about staying home. Follow your local area's instructions on testing and staying home. ??? Stay away from work, school, and public places. Limit physical contact with family members. Limit visitors. Don't kiss anyone or share eating or drinking utensils. Clean surfaces you touch with disinfectant. This is to help prevent the virus from spreading. ??? Wear a high quality, well-fitting mask if you must be around others at home or in public. Don't go places where you are unable to wear a mask. ??? Don't travel. ??? Tell the healthcare staff about recent travel. This includes local travel on public transport. Staff may need to find other people you have beenin contact with. ??? Take steps to improve airflow at home. For example, open windows to improve airflow, change filters in your air conditioning unit, and turn your thermostat to on instead of auto to improve airflow and filtration. For more tips, see the CDC website. ??? Don't share personal items such as eating or drinking utensils and linens or food. ??? If you need to cough or sneeze, doit into a tissue. Then throw the tissue into the trash. If you don't have tissues, cough or sneeze into the bend of your elbow. ??? Wash your hands often. ??? Follow all instructions from your healthcare provider. Call your healthcare provider???s office before going. They can prepare and give you instructions. This will help prevent the virus from spreading. ??? If you need to go to a hospital or clinic, expect that the healthcare staff will wear protective equipment such as masks, gowns, gloves, and eye protection. You may be advised to wait in or enter through a separate area. This is to prevent the possible virus from spreading. ??? Follow all instructions the healthcare staff gives you. ?? Self-care at home?? Protection You can protect yourself and others from getting COVID-19 or from getting very sick from it if you: ??? Vaccinate. Several vaccines and booster shots are available to prevent COVID-19 or reduce its severity. These vaccines reduce how severe the illness will be if you get the virus. No vaccine is ever 100% effective in preventing any illness, but the COVID-19 vaccines work well and are safe. Vaccines are available for people as young as 6 months and boosters are available for people age 5 and older.??Expert groups, including ACOG and CDC, advise or people to be vaccinated. Talk with your healthcare provider about which COVID-19 vaccine is best for you and your family. ??? Practice good handwashing. ??? Know your area's community transmission level and what to do if you've been exposed. Stay home if you have suspected or confirmed COVID-19. ??? Keep your distance when possible from a person who is sick or has tested positive for COVID-19. ??? Get tested if needed.??? Wear a well-fitted mask as advised. See the CDC's mask website. ??? Improve airflow indoors andmove indoor activities outside. ??? Call your healthcare provider for treatment if you have COVID-19 and are at high risk of getting very sick. Treatment Current treatment is mainly aimed at helping your body while it fights the virus. This is known as supportive care. If you have confirmed COVID-19, talk with your healthcare provider. You may qualifyfor certain medicines approved by the FDA to prevent severe COVID-19 infection. For severe COVID-19, you may need to stay in the hospital. Supportive care includes: ??? Getting rest. This helps your body fight the illness. ??? Staying hydrated. Drinking liquids isthe best way to prevent dehydration. Try to drink 6 to 8 glasses of liquids every day, or as advised by your provider. Also check with your provider about which fluids are best for you. Don't drink fluids that contain caffeine or alcohol. ??? Taking zbmz-pgo-nxwdguf (OTC) pain medicine. These are used to help ease pain and reduce fever. Follow your healthcare provider's instructions for which OTCmedicine to use. If you've been treated for suspected or confirmed COVID-19, follow all of your healthcare team's instructions. You may also get instructions on position changes to help your breathing, such as lying on your belly (prone positioning). If you were treated at a hospital and discharged, you may be senthome with a pulse oximeter. This is a small electronic device that you clip on your fingertip. It measures the amount of oxygen in your body. Follow your healthcare team's instructions on its use, how they will be in touch with you, and let you know when to call them. If you test positive for COVID-19 and are more likely to get very sick, treatments are available that can reduce your chances of a hospital stay and . For example, if you are at higher risk of inflammation caused by the COVID-19 virus, your provider may prescribe steroids or other anti-inflammatory medicines. The FDA has approved certain antivirals and monoclonal antibodies to treat COVID-19. Antivirals stop the SARS-CoV-2 virus from spreading in the body. Monoclonal antibodies help the immune system fight the virus. These treatments are for people who are more likely to get very sick from COVID-19.Talk with your healthcare provider to learn more. Follow your provider's specific instruc tions. ?? Home care for a sick person? Follow all instructions from healthcare staff. ??? Wash your hands often. ??? Wear protective clothing as advised. Wear a mask when caring for someone with COVID-19.??? Make sure the sick person wears a mask. If they can't wear a mask, don't stay in the same room with the person. If you must be in the same room, wear a face mask. When wearing a mask, make sure that it covers both the nose and mouth. ??? Keep track of the sick person???s symptoms. ??? Clean home surfaces often with disinfectant. This includes phones, kitchen counters, fridge door handle, bathroom surfaces, and others. ??? Don???t let anyone share household items with the sick person. This includes eating and drinking tools, towels, sheets, or blankets. ??? Clean fabrics and laundry thoroughly. ??? Keep other people and pets away from the sick person. ?? When you can stop isolation You can end isolation based on how serious your COVID-19 symptoms were. If you had a positive COVID-19 test but had no symptoms, you can end isolation after day 5. Day 0 was the first day you tested.?? If you had COVID-19 symptoms, you may end isolation after day 5 if: ? You are fever-free for 24 hours without using fever-reducing medicines such as acetaminophen, and ??? Your symptoms such as cough or trouble breathing are better ?? If you have moderate or severe COVID-19, your instructions on when to stop isolation are different.Moderate COVID-19 means you had shortness of breath or difficulty breathing. Severe COVID-19 means you were in the hospital. If you have a weak immune system and COVID-19, you also will be advised toisolate longer. Some conditions and treatments can cause a weak immune system. These include cancertreatment, bone marrow or organ transplants, and conditions such as HIV or other immune system disorders. If you have moderate or severe COVID-19 or if you have a weak immune system and COVID-19, youwill need to isolate through day 10. Day 0 is the first day you tested or had symptoms. If you had s evere COVID-19 or have a weak immune system, talk with your provider before you end isolation. See the CDC's isolation guidance. CDC mask guidance after isolation Follow the CDC's guidance on when to remove your mask after having COVID-19. After you end isolation when you are feeling better, wear your mask: ??? Through day 10, or ??? Sooner with testing. If you have 2 negative COVID-19 antigen tests taken48 hours apart, you may remove your mask sooner than day 10. For COVID-19 prevention, follow the CDC's guidance and your local community's instructions on face masks. ??? Follow the CDC's guidance and your local community's instructions on face masks. Everyoneages 2 years and older should correctly wear a well-fitting mask indoors in public in areas where the COVID-19 Community Level is high, even if you are fully vaccinated. ??? Wear a mask with the bestfit, protection, and comfort for you. ??? You may choose to wear a mask that offers greater protection in certain situations, such as when you are with people at higher risk for severe illness, or ifyou are at higher risk for severe illness. ??? See the CDC's mask guidance. ?? When to call your healthcare provider Call your healthcare provider right away if a sick person has any of these: ??? Trouble breathing ??? Pain or pressure in chest If a sick person has any of these, call 911: ??? Trouble breathing that gets worse ??? Pain or pressure in chest that gets worse ??? Blue tint to lips or face ??? Fast or irregular heartbeat ??? Confusion or trouble waking ??? Fainting or loss of consciousness ??? Coughing up blood ?? Date last modified: 10/30/2021 ?? Last Reviewed Date: 2021 ?? [id number] [employer]. All rights reserved. This information is not intended as a substitute for professional medical care. Always follow your healthcare professional's instructions. ?? * Nadia Rodriguez MD: PERFORM Event Display: Patient Education Leaflets Authored Date: [id number] Coronavirus Disease 2019 (COVID-19): Overview ?? 21091 Coronavirus Disease 2019 (COVID-19): Overview Coronavirus disease 2019 (COVID-19) is an illness that infects the lungs. It's caused by a type of coronavirus. The virus is called SARS-CoV-2. There are many types of coronaviruses. They are a common cause of colds and bronchitis. They can cause a lung infection called pneumonia. Symptoms can range from mild to severe. Some people have no symptoms. These types of viruses are also found in some animals. Viruses change (mutate) all the time. The changes lead to different forms of a virus. These are called variants. COVID-19 variants may spread more easily from person to person. They may cause milder symptoms. Or they may cause more severe symptoms.?? The virus spreads and infects people easily. It can infect a person more easily if they are not immune to it. The virus most often spreads through droplets of fluid that a person coughs or sneezes into the air. In some cases, you can get it from touching a surface with the virus on it and then touching your eyes, nose, or mouth. To help prevent spreading the infection, wash your hands often, or use an alcohol-based hand accounting intern. To learn more For the latest from the [facility]: ? Go to the CDC website ??? Call 205-ANL-IKVP ([phone]) ? What are the symptoms of COVID-19? Some people have no symptoms. Some have mild symptoms. Others may have severe symptoms. This variesfrom person to person. Symptoms may start 2 to 14 days after contact with the virus. They can include: ??? Fever ??? Chills ??? Coughing ??? Trouble breathing or feeling short of breath ??? Sore throat ??? Stuffy or runny nose ??? Headache ??? Body aches ??? Tiredness ??? Nausea, vomiting, diarrhea, or belly pain ??? New loss of sense of smell or taste Check your symptoms with the CDC???s Coronavirus Self-Wellness Nurse Rn. ?? What are possible complications of COVID-19? The virus can cause an infection in the lungs. This is called pneumonia. This can lead to in some cases. Experts are still learning more about COVID-19 problems. Problems may include: ??? Low blood pressure ??? Kidney failure ??? Inflammation of the brain or heart ??? Rashes Some people are at higher risk for problems. This includes: ??? Older adults ??? People with heart or lung disease ??? People with diabetes or kidney disease ??? People with health conditions that limit the immune system ??? People who take medicines that limit the immune system Rarely, a child may have a severe complication. This is called multisystem inflammatory syndrome inchildren (MIS-C). MIS-C seems to be like Kawasaki disease. This is a rare illness. It causes swelling of blood vessels and body organs. MIS can also happen in adults. But this is less common. ? How is COVID-19 diagnosed? Your healthcare provider will ask: ??? What symptoms you have ??? Where you live ??? If you???ve traveled recently ??? If you???ve hadcontact with sick people ??? If you are vaccinated against COVID-19 ??? If you have had COVID-19 Know your testing options with the CDC's COVID-19 Viral Testing Tool. You may have 1 of these testsfor COVID-19: ??? Viral (molecular) test. You may also hear this called a PCR or RT-PCR test. Viral tests are very accurate. A viral test looks for the genetic material (RNA) of the SARS-CoV-2 virus. There are a few ways to do this. A swab may be wiped inside your nose or throat. Or a long swab may be put into your nose down to the back of your throat. Or a sample of your saliva may be taken. Your test results may be back in 45 minutes to a few hours. This depends on the type of test. Some tests must be sentto a lab. These can take several days for the results. You can now get test kits to use at home. Some of these need a prescription. Follow the instructions in the kit closely if you use a home kit. Some kits show results quickly at home. Others must be sent to a lab for the results. ??? Antigen test. This can find proteins from the SARS-CoV-2 virus. A swab may be wiped inside your nose or throat.Or a long swab may be put into your nose down to the back of your throat. Some results are back within 15 to 60 minutes. This depends on the type of test. Positive results are very accurate. But false positive results can happen. And the results can be negative even in people with COVID-19. Antigentests are more likely to miss a COVID-19 infection than a viral (molecular) test. You may need to have a viral test if your antigen test is negative but you have symptoms of COVID-19. ??? Breath test. This rapid test is not widely available at this time. It finds SARS-CoV-2 infection in the breath.The test is done at providers' offices, hospitals, and mobile testing sites. You may have other tests if your provider thinks or confirms that you have COVID-19. These tests may include: ??? Antibody blood test. This type of test can show if you had the virus in the past. It shows antibodies for the virus in the blood. The accuracy of these tests varies. And they are not available everywhere. An antibody test may not show if you have an infection right now. This is because it can take up to a few weeks for your body to make antibodies. None of the antibody tests can yet be used to tell if a person is immune to the virus. ??? Sputum culture. If you have a wet cough, you may be asked to cough up a bit of mucus (sputum) from your lungs. This is tested for the virus. It may be tested for pneumonia. ??? Imaging tests. You may have a chest X-ray or CT scan. Can you get COVID-19 again? Yes, you can get COVID-19 more than once. You may not have immunity. You could have lost the immunity. Or you may get COVID-19 from a different strain (variant) of the virus that you are not immune to. But the COVID-19 vaccine helps lower the risk for COVID-19. ?? Vaccines for COVID-19 The FDA and CDC advise vaccines to help prevent COVID-19. The vaccines can also make the illness less severe. It can keep you from needing to go to the hospital.?? And it can prevent the spread of the virus to others. No vaccine is 100% effective at preventing an illness. But getting a vaccine is important. COVID-19 vaccines are available for people as young as 6 months old. or people can have the vaccine. Vaccines are given as a primary series.Boosters are given later tohelp with protection. The vaccines are given as a shot (injection) into the muscle. Ask your healthcare provider which vaccine is best for you and your family. There is a 1- dose vaccine from Jeremias &&Jeremias (J&&) for people ages 18 and older. Or a 2-dose vaccine from Novavax for people ages 12 and older. Two-dose Pfizer and Moderna vaccines are for people as young as 6 months old. They are given in se veral doses a few weeks apart. People with a weak immune system may have other advice. Talk with your healthcare provider about which vaccine is best for you and your family. COVID-19 vaccine booster shots People age 5 or older can get a COVID-19 booster shot. It's given a few months after their primary series. Boosters can help with protection against COVID-19 that may have decreased over time. Booster advice varies by vaccine, age, health, and COVID-19 variants. Talk with your provider aboutyour risk and when to get a booster. ?? How is COVID-19 treated? The best treatments right now are those to help your body while it fights the virus. This is calledsupportive care. It includes: ??? Rest.This helps your body fight the illness. ??? Fluids. Try to drink 6 to 8 glasses of fluids every day. Ask your provider which drinks are best for you. Don't have drinks with caffeine or alcohol. ??? Tixt-edd-aiwjoee (OTC) medicine. These are used to help ease pain and reduce fever. Ask yourprovider which OTC medicine is safe for you to use. Talk with your provider if you have confirmed COVID-19. You may qualify for medicines approved by the FDA to prevent severe COVID-19 infection. You may need to stay in the hospital for severe illness. Your care may include: ??? IV fluids. These are given through a vein. This helps to replace fluids in your body. ??? Oxygen. You may be given extra oxygen. Or you may be put on a breathing machine (ventilator). This is done so you get enough oxygen in your body. ??? Prone positioning. Your healthcare team may regularly turn you on your stomach. This is called prone positioning. It helps increase the amount of oxygen you get to your lungs.Follow their instructions on position changes while you're in the hospital and at home. ??? Antivirals and monoclonal antibodies. The FDA has approved certain antivirals and monoclonal antibodies to treat COVID-19. These treatments are for people who are more likely to get very sick. These treatments are not available for everyone. Talk with your healthcare provider to learn more. o Antivirals stop the SARS-CoV-2 virus from spreading in the body. o Monoclonal antibodies help the immune system fight the virus. ? Steroids or other anti-inflammatory medicines. These are used to lessen the inflammation that some people with COVID-19 have. Inflammation can lead to more trouble breathing. Itcan cause other complications or . ??? COVID-19 convalescent plasma. Plasma is the liquid partof blood. People who had COVID-19 may be asked to donate plasma. This is called COVID-19 convalescent plasma. The plasma may have antibodies. These can help fight COVID-19 in people who are very ill with it. Check with your provider to see if this is an option in your area. ?? Are you at risk for COVID-19? You are at risk for COVID-19 if any of these apply to you: ??? You live in or traveled to an area with cases of COVID-19 ??? You had close contact (within 6 feet) with someone who had COVID-19 COVID-19 may be spread by people who don't show symptoms. Date last modified: 11/26/2021 ?? Last Reviewed Date: 2020 ?? [id number] [employer]. All rights reserved. This information is not intended as a substitute for professional medical care. Always follow your healthcare professional's instructions. ?? Portable XR Chest Views * [employer] , CIS S: TRANSCRITono Cunningham MD: VERIFY Event Display: Result: Authored Date: [id number] Chest Portable Reason: Shortness of Breath; Clinical Question(s): Pneumonia COVID positive. History of CHF and nicotine dependence. COMPARISON: Multiple, most recent 03/09/[address] scan 02/10/2021 and 10/10/2019 FINDINGS: LINES AND TUBES: None. LUNGS AND PLEURA: Low lung volumes. Improved right upper lobe aeration but there is diffuse mild hazy perihilar and bibasilar opacity and subtle central interstitial prominence. No large effusions. No pneumothorax. HEART, MEDIASTINUM AND MICHELLE: Unchanged mild cardiomegaly. Right hilar fullness. BONES AND SOFT TISSUES: No acute abnormality. IMPRESSION: Low lung volumes. Mild patchy opacity superimposed upon probable chronic interstitial lung disease,possibly due to smoking-related disease. CT scan 02/10/2021 shows severe peribronchial groundglass opacity and mild traction bronchiectasis. Consider pulmonology consultation. WSN: [id number] Ordering Physician: Neetu Howard Dictated By: Tono Leo MD Dictated Date/Time: 03/21/22 10:38 a Reviewed By: Tono Leo MD Signed By: Tono Leo MD Signed Date/Time: 03/21/22 10:38 am Transcribed By: YAIR Transcribed Date/Time: 03/21/22 10:19 am Patient Care team information Care Team Personnel Name: Lawrence Hendrix Position: [facility] [...] Member Role: Primary Care Nurse Address: Address: [address] [place] [phone]- Name: Jong Suazo RN Position: [facility] RN Supv Member Role: Primary Care Nurse Name: Shante Solis RN Position: [facility] RN Member Role: Primary Care Nurse Name: Joshua Prakash RN Position: [facility] RN Member Role: Primary Care Nurse Name: Bettie Vanegas RN Position: S RN Member Role: Primary [...] Care Nurse Name: Yesenia Hu LPN Position: [facility] [...] Position: [facility] ED RN W/OE and Tasks Member Role: [...] Member Role: Lifetime Consulting Physician Address: Address: [address] [place], [place] [address] [place], [place] [address] Name: Marilee Richardson RN Position: [facility] RN Member Role: Primary Care Nurse Name: Rufino Johnson RN Position: [facility] RN Member Role: Primary Care Nurse Name: Jovita Camargo RN Position: [facility] RN Member Role: Primary Care Nurse Name: Ju Zhu Position: [facility] RN Member Role: Primary Care Nurse Name: Ester Palomares Position: [facility] RN Member Role: Primary Care Nurse Name: Emma Colbert RN Position: [facility] RN Supv Member Role: Primary Care Nurse Name: Hallie Gambino RN Position: [facility] Onco RN Member Role: Primary Care Nurse Name: Maya Ambriz RN Position: [facility] RN Member Role: Primary Care Nurse Name: Bhavna Rendon LPN Position: [facility] RN Member Role: Primary Care Nurse Name: Luis Burton RN Position: [facility] RN Member Role: Primary Care Nurse Name: Jaki Bishop MD Position: [facility] Primary Care Physician Member Role: PCP Address: Address: [address] [place] [address] Name: Lucian Krause RN [facility] Hospital 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
--- OUTSIDE RECORDS SUMMARY | 2023-02-09 22:38 | XMS_ITS | Continuity of Care Document ---
Author Name Unknown Organization [facility] Address [address] [place] [address]- Care Team Providers Care Metal Temperer Name Role Phone Jaki Bishop MD Primary Care Physician [phone] [facility]counter [facility] Date(s): 09/11/21 - 10/11/[address] [address] Allergies, Adverse Reactions, Alerts [...] to COVID vaccine 2Admin Note: VIS GIVEN [id number] 3Admin Note: VIS GIVEN 2008- 4Admin Note: vis 5Admin Note: vis 02/06/08 Medications Abilify 10 mg oral tablet 10 mg, 1, tablet, By Mouth, Daily, # 90 tablet, Refills 3, Tot. Refills 3, Maintenance, 07/07/21 8:56:00 EDT, Route to Pharmacy Electronically, [facility] [id number], Partialfill upon patient request if the prescription [...] 8:56:00 EDT, Route to Pharmacy Electronically, [facility] [id number], Partial fill upon patient request if the prescri... Start Date: 07/07/21 Status: Ordered Comfort EZ Pen [place] 31 gauge x /16 USE TO inject insulin 4 (FOUR) TIMES DAILY Start Date: 07/03/21 Status: Ordered Coreg 6.25 mg oral tablet 6.25 mg, 1, tablet, By Mouth, 2 times a day, # 180 tablet, Refills 3, Tot. Refills 3, Maintenance, 07/07/21 8:56:00 EDT, Route to Pharmacy Electronically, [facility] [id number], Partial fill upon patient request if the prescri... Start Date: 07/07/21 Status: Ordered Daily Multiple Vitamins oral tablet 1 tablet, By Mouth, Daily, # 90 tablet, 3 Refills, Maintenance, 07/07/21 8:56:00 EDT, Tablet, [facility] [id number], Partial fill upon patient request if the prescription is for a schedule II opioid drug., 1 tablet By Mouth Da... Start Date: 07/07/21 Status: Ordered divalproex sodium 250 mg oral enteric coated tablet 1 tablet = 250 mg, By Mouth, Daily in AM, # 90 tablet, 3 Refills, Maintenance, 07/07/21 8:56:00 EDT, Tablet, [facility] [id number], Partial fill upon patient request if the prescription is for a schedule II opioid drug., 167,... Start Date: 07/07/21 Status: Ordered divalproex sodium 500 mg oral enteric coated tablet 1 tablet = 500 mg, By Mouth, Daily at bedtime, # 90 tablet, 3 Refills, Maintenance, 07/07/21 8:56:00 EDT, Tablet, [facility] [id number], Partial fill upon patient request if the prescription is for a schedule II opioid drug.,... Start Date: 07/07/21 Status: Ordered Eucerin Unscented topical lotion See Instructions, Apply daily as directed to dry skin. 16 oz, # 1 each, 3 Refills, Maintenance, 07/07/21 9:02:00 EDT, [facility] [id number], Partial fill upon patient requestif the prescription [...] 8:56:00 EDT, Route to Pharmacy Electronically, [facility] [id number], Partial fill upon patient request if the p... Start Date: 07/07/21 Status: Ordered gabapentin 100 mg oral capsule 200 mg, 2, capsule, By Mouth, Daily at bedtime, # 180 capsule, Refills 3, Tot. Refills 3, Maintenance, 07/07/21 8:56:00 EDT, Route to Pharmacy Electronically, [facility] [id number], Partial fill upon patient request if the pre... Start Date: 07/07/21 Status: Ordered guaiFENesin 100 mg/5 mL oral liquid 5 mL = 100 mg, By Mouth, Every 4 hours, PRN for cough, # 300 mL, 0 Refills, Acute 07/07/22 9:05:00 EDT, 07/07/21 9:02:00 EDT, Liquid, [facility] [id number], Partial fill uponpatient request if the prescription [...] a day, # 581 mL, 3 Refills, [facility], 10, TAKE 30mls BY MOUTH 2 (two) times a day, 167, cm, 07/07/21 8:39:00 EDT, Height, 95.6, kg, 06/29/21 18:39:00 EDT, Dry Weight Start Date: 08/10/21 Status: Ordered Lantus Solostar Pen 100 units/mL subcutaneous solution = 16 units, Subcutaneous Infusion, Daily, # 15 mL, 5 Refills, Maintenance, 09/11/21 17:25:00 EDT, [facility] [id number], Partial fill upon patient request if the prescriptionis for a schedule II opioid drug., 167, cm, ... Start Date: 09/11/21 Status: Ordered loratadine 10 mg oral tablet 10 mg, 1, tablet, By Mouth, Daily, # 90 tablet, Refills 3, Tot. Refills 3, Maintenance, 07/07/21 8:56:00 EDT, Route to Pharmacy Electronically, [facility] [id number], Partialfill upon patient request if the prescription is fo... Start Date: 07/07/21 Status: Ordered magnesium oxide 400 mg oral tablet 1 tablet = 400 mg, By Mouth, 2 times a day, # 180 tablet, 3 Refills, Maintenance, 07/07/21 8:56:00 EDT, Tablet, [facility] [id number], Partial fill upon patient request if the prescription is for a schedule II opioid drug., 16... Start Date: 07/07/21 Status: Ordered melatonin 3 mg oral tablet 1 tablet = 3 mg, By Mouth, Daily at bedtime, PRN Insomnia, # 90 tablet, 3 Refills, Maintenance, 07/07/21 8:56:00 EDT, Tablet, [facility] [id number], Partial fill upon patientrequest if the prescription is for a schedule II op... Start Date: 07/07/21 Status: Ordered nicotine 2 mg oral transmucosal lozenge 1 lozenge = 2 mg, By Mouth, Every hour, PRN Other, Nicotine Withdrawal Symptoms (not to exceed 20 lozenges per day), # 72 lozenge, 3 Refills, Maintenance, 07/07/21 8:56:00 EDT, Lozenge, [place], [place] - [id number], Partial fill upon... Start Date: 07/07/21 Status: Ordered pancrelipase 10,000 units-32,000 units-42,000 units oral delayed release capsule 1 capsule, By Mouth, 3 times a day, with each meal and snack, # 270 capsule, 3 Refills, Maintenance, 07/07/21 8:56:00 EDT, CR Capsule, [place], [place] - [id number], Partial fill upon patient request if the [...] Weight Start Date: 07/07/21 Status: Ordered Pen [place], 31 G x 8 mm BD Ultra [...] 3 Refills, Maintenance, 07/07/21 8:56:00 EDT, Tablet, [facility], [place] - [id number], Partial fill upon patient request if theprescription [...] Active H/O tubal ligation(Confirmed) Active BHN/ CP Tnt Line Supervisor/Janet salvador [facility] [phone](Confirmed) Active Heart failure(Confirmed) Active History of cholecystectomy(Confirmed) [...]
--- OUTSIDE RECORDS SUMMARY | 2023-02-09 22:38 | XMS_ITS | Continuity of Care Document ---
Author Name Unknown Organization [facility] Address [address] [place] [address]- Care Team Providers Care Senior Asic Design Engineer Name Role Phone Jaki Bishop MD Primary Care Physician Encounter [facility] Date(s): 03/11/21 - 04/10/21 [facility] [address] [place] [address]- Attending Physician: Antonio Guido Admitting Physician: AdmtrAntonio [...] to COVID vaccine 2Admin Note: VIS GIVEN [id number] 3Admin Note: VIS GIVEN 2008- 4Admin Note: [...] Active H/O tubal ligation(Confirmed) Active BHN/ CP Diabetes Physician/Janet salvador [facility] [phone](Confirmed) Active Heart failure(Confirmed) Active History of cholecystectomy(Confirmed) [...]
--- OUTSIDE RECORDS SUMMARY | 2023-02-09 22:38 | XMS_ITS | Continuity of Care Document ---
Author Name Unknown Organization [facility] Address [address] [place] [address]- Care Team Providers Care Risk Tech Name Role Phone Dario HAYDEN, Jaki Primary Care Physician [facility]counter [facility] Date(s): 03/15/21 - 03/23/[address] [address] Discharge Disposition: A-Transfer SNF Attending Physician: Prosper Lugo MD Admitting Physician: Dain Mcguire MD Referring Physician: Not on Staff, Referring [...] to COVID vaccine 2Admin Note: VIS GIVEN [id number] 3Admin Note: VIS GIVEN 2008- 4Admin Note: [...] Active H/O tubal ligation(Confirmed) Active BHN/ CP Deflector Operator/Janet Pandey [phone](Confirmed) Active Heart failure(Confirmed) Active History of cholecystectomy(Confirmed) [...] e jection fraction(Confirmed) Active Tobacco use(Confirmed) Active Results Radiology Reports * Exam Date Time Procedure Performing Provider Status 03/15/21 3:56 PM Chest 2 Views Frontal and Lat Aldair King; Auth (Verified) Notes: (Chest 2 Views Frontal and Lat) Reason For Exam: Shortness of Breath, Fever;Other: RESULT: Chest 2 Views Frontal and Lat Chest 2 Views Frontal and Lat Hx of Present Illness: coming in from home for passing out pt states she did not have chest pain did not hit her head denies loc, not on thinners 67 y o F PMH schizophrenia, HTN, HLD, obesity, NIDDM presenting to the ER w scientific artist via EMS for eval of chest pain.; Reason: Other:; Shortness of Breath, Fever; Clinical Question(s): Pneumonia COMPARISON: 02/10/2021 FINDINGS: LINES AND TUBES: None. LUNGS AND PLEURA: Patchy opacities throughout the lungs with some sparing of the left upper lobe. No pleural effusion. HEART, MEDIASTINUM AND MICHELLE: Unchanged. BONES AND SOFT TISSUES: No acute abnormality. IMPRESSION: Bilateral hazy opacities are nonspecific but can be seen with atypical pneumonia. WSN: [id number] Ordering Physician: Jerrica English Dictated By: Nnamdi Simpson MD Dictated Date/Time: 03/15/21 4:06 pm Reviewed By: Nnamdi Simpson MD Signed By: Nnamdi Simpson MD Signed Date/Time: 03/15/21 4:06 pm Transcribed By: YAIR Transcribed Date/Time: 03/15/21 4:04 pm Vital Signs Most recent to oldest [Reference Range]: 1 2 3 Height 167.64 cm (03/23/21 2:44 PM) 167.64 cm (03/23/21 7:37 AM) 167.64 cm (03/23/21 2:02 AM) Weight 93.8 kg (03/23/21 6:24 AM) 89.9 kg (03/22/21 6:28 AM) 97.0 kg (03/21/21 1:58 AM) Oxygen Saturation [94-100 %] 96 % (03/23/21 2:44 PM) 100 % (03/23/21 7:37 AM) 98 % (03/23/21 2:02 AM) Pulse Rate [55-90 bpm] 81 bpm (03/23/21 2:44 PM) 78 bpm (03/23/21 7:37 AM) 83 bpm (03/23/21 2:02 AM) Body Mass Index [18.5-24.99] 34.52 *>HHI* (03/21/21 1:58 AM) 32.35 *>HHI* (03/16/21 4:59 AM) Blood Pressure [90-138/55-84 mm Hg] 128/87mm Hg (03/23/21 2:44 PM) 111/71mm Hg (03/23/21 7:37 AM) 107/77mm Hg (03/23/21 2:02 AM) Respiratory Rate [16-30 br/min] 18 br/min (03/23/21 2:44 PM) 18 br/min (03/23/21 7:37 AM) 16 br/min (03/23/21 2:02 AM) Temperature [96.8-100.4 DegF] 97.5 DegF (03/23/21 2:44 PM) 97.8 DegF (03/23/21 7:37 AM) 97.9 DegF (03/23/21 2:02 AM) Liters per Minute 2 L/min (03/23/21 2:44 PM) 3 L/min (03/23/21 7:37 AM) 3 L/min (03/23/21 2:02 AM) Mode of Delivery (Oxygen) Nasal cannula (03/23/21 2:44 PM) Nasal cannula (03/23/21 7:37 AM) Nasal cannula (03/23/21 2:02 AM) Blood pressure sites Arm, right (03/23/21 2:44 PM) Arm, right (03/23/21 7:37 AM) Arm, left (03/23/21 2:02 AM) Temperature Route Oral (03/23/21 2:44 PM) Oral (03/23/21 7:37 AM) Temporal (03/23/21 2:02 AM) Dry Weight 100.9 kg (03/16/21 4:59 AM) Weight Obtained Via Bed scale (03/23/21 6:24 AM) Bed scale (03/22/21 6:28 AM) Bed scale (03/21/21 1:58 AM) Dry Weight Obtained Via Patient/family s tated (03/16/21 4:59 AM) Social History Social History Type Response Smoking Status 10 or more cigarette s (1/2 pack or more)/day in last 30 days; Interested in cessation: No; Patient wants NRT during admission No;Never; Type: Cigarettes; Exposure to Secondhand Smoke: Yes; Number of years: 30; entered on: 02/07/21 Sex
--- OUTSIDE RECORDS SUMMARY | 2023-02-09 22:38 | XMS_ITS | Continuity of Care Document ---
Author Name Unknown Organization [facility] Address [address] [place] [address]- Care Team Providers Care Inside Sales Administrator Name Role Phone Jaki Bishop MD Primary Care Physician Encounter [facility] Date(s): 02/26/21 - 04/25/[address] [address]- Attending Physician: Not on Staff, Attending MD Referring Physician: Jaki Bishop MD Allergies, [...] to COVID vaccine 2Admin Note: VIS GIVEN [id number] 3Admin Note: VIS GIVEN 2008- 4Admin Note: [...] 3 Refills, Maintenance, 04/24/21 13:09:00 EST, Tablet, [place], [place] - [id number], Partial fill upon patient request if the [...] Active H/O tubal ligation(Confirmed) Active BHN/ CP Administrative Coordinator[facility] [phone](Confirmed) Active Heart failure(Confirmed) Active History of cholecystectomy(Confirmed) [...]
--- OUTSIDE RECORDS SUMMARY | 2023-02-09 22:38 | XMS_ITS | Continuity of Care Document ---
Author Name Unknown Organization [facility] Address [address] [place] [address]- Care Team Providers Care Mobile Sales Expert Name Role Phone Jaki Bishop MD Primary Care Physician [phone] Encounter [facility] Date(s): 03/17/20 - 04/16/[address] [address]- Allergies, Adverse Reactions, Alerts Substance Reaction Severity [...] Given Permanently Refused 1Admin Note: VIS GIVEN [id number] 2Admin Note: VIS GIVEN 2008-12 3Admin Note: vis 4Admin Note: vis 02/06/08 Medications acetaminophen 325 mg oral tablet 1, tablet, By Mouth, 4 times a day, PRN, no MORE THAN 4 TABLETS PER DAY., # 60 tablet, Refills 1, Tot. Refills 1, Maintenance, NEEDED, 03/06/20 9:09:00 EST, Route to Pharmacy Electronically, [facility] [id number], 168, cm,... Start Date: 03/06/20 Status: Ordered [...] 0 Refills, Maintenance, 04/16/20 11:06:00 EST, Tablet, [facility] [id number], Partial fill upon patient request if the prescription is for a schedule II opioid drug., 168,... Start Date: 04/16/20 Status: Ordered clozapine 50 mg oral tablet 3 tablet = 150 mg, By Mouth, Daily at bedtime, # 90 tablet, 0 Refills, Maintenance, 04/16/20 11:06:00 EST, Tablet, [facility] [id number], Partial fill upon patient request ifthe prescription is for a schedule II opioid drug.,... Start Date: 04/16/20 Status: Ordered Coreg 6.25 mg oral tablet 6.25 mg, 1, tablet, By Mouth, 2 times a day, # 60 tablet, Refills 0, Tot. Refills 0, Maintenance, 04/16/20 11:05:00 EST, Route to Pharmacy Electronically, [facility] [id number], Partial fill upon patient request, 168, cm, 03/22... Start Date: 04/16/20 Status: Ordered docusate sodium 100 mg oral capsule = 100 mg, By Mouth, 2 times a day, PRN Constipation., # 60 capsule, 3 Refills, Maintenance, 02/29/20 15:13:00 EST, Capsule, [facility], [facility] [id number], Partial fill upon patient request if the prescription is for a schedule II opio... Start Date: 02/29/20 Stop Date: 06/28/20 Status: Ordered gabapentin 100 mg oral capsule 200 mg, 2, capsule, By Mouth, 2 times a day, # 120 capsule, Refills 0, Tot. Refills 0, Maintenance,04/16/20 11:06:00 EST, Route to Pharmacy Electronically, [facility] [id number], Partial fill upon patient request if the [...] mL, 1 Refills, Maintenance, 04/16/20 11:07:00 EST, [facility], [facility] [id number],... Start Date: 04/16/20 Status: Ordered lactulose 10 [...] 1 Refills, Maintenance, 04/16/20 11:07:00 EST, Solution, [facility] [id number], 168, cm, 04/16/20 8:30:00 EST, Height, 98.7, kg, 04/11/20 2:10:00 EST, Dry Weight Start Date: 04/16/20 Status: Ordered loratadine 10 mg oral tablet See Instructions, TAKE ONE TABLET BY MOUTH DAILY, # 30 tablet, Refills 2, Tot. Refills 2, 02/01/20 16:32:00 EST, Instructions Replace Required Details, Route to Pharmacy Electronically, [facility] [id number], 168, cm, 12/17/19... Start Date: 02/01/20 Status: [...] Daily, # 90 tablet, 1 Refills, Maintenance, 05/19/20 14:23:00 EDT, Tablet, [place], [place] -, 1 tablet By Mouth Daily, [...] 0 Refills, Maintenance, 04/16/20 11:08:00 EST, Gum, [place], [place] - [id number], Partial fill upon patient request if the [...] 5 Refills, Maintenance, 03/05/20 16:50:00 EST, Tablet, [facility] [id number], this is an increased, 1 tablet By [...] 1 Refills, Maintenance, 04/16/20 11:09:00 EST, Tablet, [facility] [id number], Partial fill upon patient request if the prescription is for a schedule II opioid drug., 168, cm, ... Start Date: 04/16/20 Stop Date: 04/11/21 Status: Ordered Zenpep 10,000 units-32,000 units-42,000 units oral delayed release capsule 1 capsule, By Mouth, 3 times a day, # 90 capsule, 0 Refills, Maintenance, 04/16/20 11:09:00 EST, [facility] [id number], 1 capsule By Mouth 3 times a [...] Active H/O tubal ligation(Confirmed) Active BHN/BH CP Knit Goods Press Hand/Janet salvador [facility] [phone](Confirmed) Active History of cholecystectomy(Confirmed) Active Hypertension(Confirmed) Active [...]
--- OUTSIDE RECORDS SUMMARY | 2023-02-09 22:38 | XMS_ITS | Continuity of Care Document ---
Author Name Unknown Organization [facility] Address [address] [place] [phone]- Care Team Providers Care Revenue Accounting Manager Name Role Phone Jaki Bishop MD Primary Care Physician Encounter [facility] Date(s): 07/16/21 - 08/15/21 [facility] [address] [place] [phone]- [place] Allergies, Adverse Reactions, Alerts Substance Reaction Severity [...] to COVID vaccine 2Admin Note: VIS GIVEN [id number] 3Admin Note: VIS GIVEN 2008- 4Admin Note: vis 5Admin Note: vis 02/06/08 Medications Abilify 10 mg oral tablet 10 mg, 1, tablet, By Mouth, Daily, # 90 tablet, Refills 3, Tot. Refills 3, Maintenance, 07/07/21 8:56:00 EDT, Route to Pharmacy Electronically, [facility] [id number], Partialfill upon patient request if the prescription [...] 07/07/21 8:56:00 EDT, Route to Pharmacy Electronically, [facility] [id number], Partial fill upon patient request if the prescri... Start Date: 07/07/21 Status: Ordered Comfort EZ Pen [place] 31 gauge x 5/16 USE TO inject insulin 4 (FOUR) TIMES DAILY Start Date: 07/03/21 Status: Ordered Coreg 6.25 mg oral tablet 6.25 mg, 1, tablet, By Mouth, 2 times a day, # 180 tablet, Refills 3, Tot. Refills 3, Maintenance, 07/07/21 8:56:00 EDT, Route to Pharmacy Electronically, [facility] [id number], Partial fill upon patient request if the prescri... Start Date: 07/07/21 Status: Ordered Daily Multiple Vitamins oral tablet 1 tablet, By Mouth, Daily, # 90 tablet, 3 Refills, Maintenance, 07/07/21 8:56:00 EDT, Tablet, [facility] [id number], Partial fill upon patient request if the prescription is for a schedule II opioid drug., 1 tablet By Mouth Da... Start Date: 07/07/21 Status: Ordered divalproex sodium 250 mg oral enteric coated tablet 1 tablet = 250 mg, By Mouth, Daily in AM, # 90 tablet, 3 Refills, Maintenance, 07/07/21 8:56:00 EDT, Tablet, [facility] [id number], Partial fill upon patient request if the prescription is for a schedule II opioid drug., 167,... Start Date: 07/07/21 Status: Ordered divalproex sodium 500 mg oral enteric coated tablet 1 tablet = 500 mg, By Mouth, Daily at bedtime, # 90 tablet, 3 Refills, Maintenance, 07/07/21 8:56:00 EDT, Tablet, [facility] [id number], Partial fill upon patient request if the prescription is for a schedule II opioid drug.,... Start Date: 07/07/21 Status: Ordered Eucerin Unscented topical lotion See Instructions, Apply daily as directed to dry skin. 16 oz, # 1 each, 3 Refills, Maintenance, 07/07/21 9:02:00 EDT, [facility] [id number], Partial fill upon patient requestif the prescription [...] 07/07/21 8:56:00 EDT, Route to Pharmacy Electronically, [facility] [id number], Partial fill upon patient request if the p... Start Date: 07/07/21 Status: Ordered gabapentin 100 mg oral capsule 200 mg, 2, capsule, By Mouth, Daily at bedtime, # 180 capsule, Refills 3, Tot. Refills 3, Maintenance, 07/07/21 8:56:00 EDT, Route to Pharmacy Electronically, [facility] [id number], Partial fill upon patient request if the pre... Start Date: 07/07/21 Status: Ordered guaiFENesin 100 mg/5 mL oral liquid 5 mL = 100 mg, By Mouth, Every 4 hours, PRN for cough, # 300 mL, 0 Refills, Acute 07/07/22 9:05:00 EDT, 07/07/21 9:02:00 EDT, Liquid, [facility] [id number], Partial fill uponpatient request if the prescription [...] 11 Refills, Maintenance, 07/07/21 8:56:00 EDT, Injection, [facility] [id number], Partial fill upon patient request if the [...] a day, # 581 mL, 3 Refills, [facility], 10, TAKE 30mls BY MOUTH 2 (two) times a day, 167, cm, 07/07/21 8:39:00 EDT, Height, 95.6, kg, 06/29/21 18:39:00 EDT, Dry Weight Start Date: 08/10/21 Status: Ordered loratadine 10 mg oral tablet 10 mg, 1, tablet, By Mouth, Daily, # 90 tablet, Refills 3, Tot. Refills 3, Maintenance, 07/07/21 8:56:00 EDT, Route to Pharmacy Electronically, [facility] [id number], Partialfill upon patient request if the prescription is fo... Start Date: 07/07/21 Status: Ordered magnesium oxide 400 mg oral tablet 1 tablet = 400 mg, By Mouth, 2 times a day, # 180 tablet, 3 Refills, Maintenance, 07/07/21 8:56:00 EDT, Tablet, [place], [place] - [id number], Partial fill upon patient request if the prescription is for a schedule II opioid drug., 16... Start Date: 07/07/21 Status: Ordered melatonin 3 mg oral tablet 1 tablet = 3 mg, By Mouth, Daily at bedtime, PRN Insomnia, # 90 tablet, 3 Refills, Maintenance, 07/07/21 8:56:00 EDT, Tablet, [facility] [id number], Partial fill upon patientrequest if the prescription is for a schedule II op... Start Date: 07/07/21 Status: Ordered nicotine 2 mg oral transmucosal lozenge 1 lozenge = 2 mg, By Mouth, Every hour, PRN Other, Nicotine Withdrawal Symptoms (not to exceed 20 lozenges per day), # 72 lozenge, 3 Refills, Maintenance, 07/07/21 8:56:00 EDT, Lozenge, [facility] [id number], Partial fill upon... Start Date: 07/07/21 Status: Ordered pancrelipase 10,000 units-32,000 units-42,000 units oral delayed release capsule 1 capsule, By Mouth, 3 times a day, with each meal and snack, # 270 capsule, 3 Refills, Maintenance, 07/07/21 8:56:00 EDT, CR Capsule, [facility] [id number], Partial fill upon patient request if the [...] 3 Refills, Maintenance, 07/07/21 8:56:00 EDT, Tablet, [facility] [id number], Partial fill upon patient request if theprescription [...] Active H/O tubal ligation(Confirmed) Active BHN/BH CP Service Employee/Janet salvador [facility] [phone](Confirmed) Active Heart failure(Confirmed) Active History of cholecystectomy(Confirmed) [...]
--- OUTSIDE RECORDS SUMMARY | 2023-02-09 22:38 | XMS_ITS | Continuity of Care Document ---
Author Name Unknown Organization [facility] Address [address] [place] [address]- Care Team Providers Care Cracker Off Name Role Phone Dario HAYDEN, Jaki Primary Care Physician Encounter [facility] [id number] Date(s): 04/17/19 - 04/27/[address] [address]- [facility] Attending Physician: Admtr, Darin8 Allergies, Adverse Reactions, Alerts Substance Reaction Severity [...] Given Patient Refuses 1Admin Note: VIS GIVEN [id number] 2Admin Note: VIS GIVEN 2008-12 3Admin Note: vis 4Admin Note: vis 02/06/08 Medications acetaminophen 325 mg oral tablet 325 mg, 1, tablet, By Mouth, 4 times a day, PRN, No more than 4 tablets per day, # 60 tablet, Refills 11, Tot. Refills 11, Acute 10/05/19 12:00:00 EDT, for pain, 10/03/18 14:57:21 EDT, Route to Pharmacy Electronically, [id number]... Start Date: 10/03/18 Stop Date: 10/05/19 Status: [...] 04/26/19 8:46:00 EST, Route to Pharmacy Electronically, [facility] #[id number], 166, cm, 04/20/19 10:17:00 EST, Height, 91.8, kg, 02/23/19 17:03:00 ES... Start Date: 04/26/19 Status: Ordered docusate sodium 100 mg oral capsule 100 mg, 1, capsule, By Mouth, 2 times a day, # 60 capsule, Refills 11, Tot. Refills 11, Maintenance, 02/21/19 14:45:44 EST, Route to Pharmacy Electronically, [id number], [place], [place] -, 168, cm, 02/14/19... Start Date: 02/21/19 Stop Date: 02/16/20 Status: Ordered Ensure (Vanilla Flavor) Ensure (Vanilla Flavor), See Instructions, # 60 each, Refills 11, Tot. Refills 11, Maintenance, Drink 1 can BID. Diagnosis: Chronic Pancreatitis, Cirrhosis. ICD10 K86.1, K74.6, Fax to [facility]( [facility], #[phone]), 12/06/17 13:28:49 EDT, Compound Start Date: 12/06/17 Status: Ordered gabapentin 100 mg oral capsule 200 mg, 2, capsule, By Mouth, 2 times a day, # 120 capsule, Refills 6, Tot. Refills 6, Maintenance,03/27/19 16:10:00 EST, Route to Pharmacy Electronically, [facility] #[id number], 166, cm, 03/27/19 15:26:00 EST, Height, 91.8, kg, 02/23/19 17:03:... Start Date: 03/27/19 Stop Date: 10/23/19 Status: Ordered Humalog Kwik Pen 100 units/mL subcutaneous injection See Instructions, 4 Units for bood sugar above 120 mg/dl and then add 2 Units for every 50 mg/dl rise above 120. Three times a day before meals., # 15 mL, 6 Refills, Maintenance, 03/30/19 16:20:00 EST, [facility] #[id number], 166, cm, 03/27/19 1... Start Date: 03/30/19 Status: Ordered Lantus Solostar Pen 100 units/mL subcutaneous solution = 32 units, Subcutaneous Injection, Daily, Inject QAM., # 15 mL, 6 Refills, Maintenance, 03/30/19 16:23:00 EST, [facility] #[id number], 166, cm, 03/27/19 15:26:00 EST, Height, 91.8, kg, 02/23/1917:03:00 EST, Dry Weight Start Date: 03/30/19 Stop Date: 10/26/19 Status: Ordered MiraLax oral powder for reconstitution = 17 Gm, By Mouth, 2 times a day, PRN Other, dissolve in water before taking. goal 2-3 bowel movements daily, # 527 Gm, 0 Refills, Maintenance, 03/27/19 17:13:00 EST, REC Powder, [facility]#[id number], 17 Gm By Mouth 2 times a [...] TABLET BY MOUTH DAILY FOR STOMACH ACID, [facility] #[id number] Start Date: 11/28/18 Status: Ordered Pen [place], 31 G x 8 mm BD Ultra [...] Attn Dr. Mariano Andrade, Outpatient Psychiatry, at [phone]., See Instructions, # 1 application, Refills 0, [...] 04/20/19 10:38:00 EST, Route to Pharmacy Electronically, [facility] #[id number], 166, cm, 04/20/19 10:17:00 EST, Height, 91.8, kg, 02/23/19 17:03:00 EST, . 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
--- OUTSIDE RECORDS SUMMARY | 2023-02-09 22:38 | XMS_ITS | Continuity of Care Document ---
Author Name Unknown Organization [facility] Address [address] [place] [address]- Care Team Providers Care Professor Of Apologetics Name Role Phone Jaki Bishop MD Primary Care Physician Encounter [facility] Date(s): 06/30/20 - 06/30/[address] [address]- Discharge Disposition: A-D/C Walkout Attending Physician: Melvin Martin MD Admitting Physician: Melvin Martin MD Referring Physician: Not on Staff, Referring [...] Not Given Patient Refuses pneumococcal 23-valent vaccine 7/23/20 Not Given Permanently Refused 1Admin Note: VIS GIVEN 2Admin Note: VIS GIVEN 2008-12 3Admin Note: vis 4Admin Note: vis 02/06/08 Medications acetaminophen 325 mg oral tablet 1, tablet, By Mouth, 4 times a day, PRN, not to exceed 4 TABLETS PER DAY. Not to exceed 2000 mg/day. PRN Pain, # 60 tablet, Refills 0, Tot. Refills 0, Maintenance, NEEDED, 06/19/20 12:38:00 EDT, Route to Pharmacy Electronically, [facility]... Start Date: 06/19/20 Status: Ordered Alcohol Wipes [...] Maintenance, 04/16/20 11:06:00 EST, Tablet, [facility] [id number], Partial fill upon patient request if the prescription is for a schedule II opioid drug., 168,... Start Date: 04/16/20 Status: Ordered clozapine 50 mg oral tablet 3 tablet = 150 mg, By Mouth, Daily at bedtime, # 90 tablet, 0 Refills, Maintenance, 04/16/20 11:06:00 EST, Tablet, [facility] [id number], Partial fill upon patient request ifthe prescription is for a schedule II opioid drug.,... Start Date: 04/16/20 Status: Ordered Coreg 12.5 mg oral tablet 12.5 mg, 1, tablet, By Mouth, 2 times a day, # 180 tablet, Refills 1, Tot. Refills 1, Maintenance, 05/26/20 14:41:00 EST, Route to Pharmacy Electronically, [facility] [id number], Partial fill upon patient request if the prescr... Start Date: 05/26/20 Stop Date: 11/22/20 Status: Ordered docusate sodium 100 mg oral capsule = 100 mg, By Mouth, 2 times a day, PRN Constipation., # 60 capsule, 3 Refills, Maintenance, 02/29/20 15:13:00 EST, Capsule, [place], [place] - [id number], Partial fill upon patient request if the [...] Maintenance,05/28/20 13:46:00 EST, Route to Pharmacy Electronically, [place], [place] - [id number], Partial fill upon patient request if the presc... Start Date: 05/28/20 Status: Ordered Glucerna (Vanilla Flavor) Glucerna (Vanilla Flavor), See Instructions, # 60 each, Refills 11, Tot. Refills 11, Maintenance, Drink 1 can BID. 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 Fax to [facility] ( [facility], #[phone]), 06/06/20 19... Start Date: 06/06/20 Status: Ordered [...] mL, 1 Refills, Maintenance, 04/16/20 11:07:00 EST, [place], [place] - [id number],... Start Date: 04/16/20 Status: Ordered lactulose 10 gm/15 ml oral syrup 30 mL, By Mouth, 2 times a day, # 581 mL, 3 Refills, Maintenance, 06/27/20 11:11:00 EDT, [facility] [id number], 10, 30 mL By Mouth 2 times [...] Details, Route to Pharmacy Electronically, [facility] [id number], 168, cm, 04/16/20... Start Date: 05/01/20 Status: Ordered multivitamin Multiple Vitamins oral tablet 1 tablet, By Mouth, Daily, # 90 tablet, 1 Refills, Maintenance, 05/26/20 13:28:00 EST, Tablet, [facility] [id number], 1 tablet By Mouth Daily, 168, cm, [...] Maintenance, 04/16/20 11:08:00 EST, Gum, [facility] [id number], Partial fill upon patient request if the [...] Maintenance, 03/05/20 16:50:00 EST, Tablet, [facility] [id number], this is an increased, 1 tablet By Mouth 2 times a day,x30 days, 168, cm, 02/10/20 5:58:00 EST, Heigh... Start Date: 03/05/20 Stop Date: 09/01/20 Status: Ordered torsemide 20 mg oral tablet 1 tablet = 20 mg, By Mouth, Daily, # 30 tablet, 1 Refills, Maintenance, 04/16/20 11:09:00 EST, Tablet, [place], [place] - [id number], Partial fill upon patient request if the prescription is for a schedule II opioid drug., 168, cm, 01... 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/[facility] [phone](Confirmed) Active History of cholecystectomy(Confirmed) Active Hypertension(Confirmed) Active Incisional hernia(Confirmed) Active Nicotine dependence(Confirmed) Active Obesity (BMI 30.0-34.9)(Confirmed) Active Pulmonary HTN, Severe(Confirmed) Active Steatohepatitis (w/Stage III Fibrosis, Liver Biopsy 05/2012)(Confirmed) Active Heart failure with reduced e jection fraction(Confirmed) Active Results Radiology Reports * Exam Date Time Procedure Performing Provider Status 06/30/20 9:02 AM Chest 2 Views Frontal and Lat Ashley Pickens (Verified) Notes: (Chest 2 Views Frontal and Lat) Reason For Exam: Chest Pain;Other: RESULT: Chest 2 Views Frontal and Lat Chest 2 Views Frontal and Lat Hx of Present Illness: Pt states swelling and pain to bilateral legs. states hx of chf on long termdiuretics. reports long hours of standing. reporting no chest pain, some intermittent chest tightness.; Reason: Other:; Chest Pain; Clinical Question(s): Other: COMPARISON: Multiple priors with the most recent 04/10/2020 FINDINGS: LINES AND TUBES: None. LUNGS AND PLEURA: The central pulmonary vasculature is prominent and indistinct. Increased interstitial lung markings. Patchy opacities at the lung bases and peripheral left mid and lower lung zones. No pleural effusion. No pneumothorax. HEART, MEDIASTINUM AND MICHELLE: Heart is normal in size. Aorta is calcified. BONES AND SOFT TISSUES: No acute abnormality. Embolization coils in the left upper quadrant. Mild degenerative changes of the spine. IMPRESSION: Mild interstitial edema with patchy opacities at the lung bases and left midlung zone, which likelyrepresents alveolar edema versus developing pneumonia. I have personally reviewed the images and I agree with this report. WSN: [id number] Ordering Physician: Freddy Navarro Dictated By: Gino Soliman DO Dictated Date/Time: 06/30/20 9:20 am Reviewed By: Rick Harrell MD Signed By: Rick Harrell MD Signed Date/Time: 06/30/20 9:25 am Transcribed By: YAIR Transcribed Date/Time: 06/30/20 9:05 am Vital Signs Most recent to oldest [Reference Range]: 1 2 Oxygen Saturation [94-100 %] 99 % (06/30/20 8:35 AM) 98 % (06/30/20 8:23 AM) Pulse Rate [55-90 bpm] 91 bpm *H* (06/30/20 8:35 AM) Blood Pressure [90-138/55-84 mm Hg] 136/ 96mm Hg (06/30/20 8:35 AM) Respiratory Rate [16-30 br/min] 18 br/mi n (06/30/20 8:35 AM) Temperature [96.8-100.4 DegF] 98 DegF (06/30/20 8:35 AM) Liters per Minute 2 L/min (06/30/20 8:23 AM) Mode of Delivery (Oxygen) Room air (06/30/20 8:35 AM) Nasal cannula (06/30/20 8:23 AM) Blood pressure sites Arm, right (06/30/20 8:35 AM) Temperature Route Oral (06/30/20 8:35 AM) Social History Social History Type Response Tobacco Use: 4 or less cigar ettes(less than 1/4 pack)/day in last 30 days. Started at age: 15 Years. Sex
--- OUTSIDE RECORDS SUMMARY | 2023-02-09 22:38 | XMS_ITS | Continuity of Care Document ---
Author Name Unknown Organization [facility] Address [address] [place] [address]- Care Team Providers Care Medical Technologist Hematology Name Role Phone Dario HAYDEN, Jaki Primary Care Physician Encounter [facility] Date(s): 02/23/19 - 03/05/19 [facility] [address] [place] [address]- [facility] Attending Physician: Antonio Guido Admitting Physician: AdmAntonio perez Referring Physician: AdmtrAntonio Allergies, Adverse Reactions, Alerts Substance [...] Given Patient Refuses 1Admin Note: VIS GIVEN [id number] 2Admin Note: VIS GIVEN 2008-12 3Admin Note: vis 4Admin Note: vis 02/06/08 Medications acetaminophen 325 mg oral tablet 325 mg, 1, tablet, By Mouth, 4 times a day, PRN, No more than 4 tablets per day, # 60 tablet, Refills 11, Tot. Refills 11, Acute 10/05/19 12:00:00 EDT, for pain, 10/03/18 14:57:21 EDT, Route to Pharmacy Electronically, [id number]... Start Date: 10/03/18 Stop Date: 10/05/19 Status: [...] 07/19/18 9:04:24 EDT, Route to Pharmacy Electronically, [id number], [facility] [address] Start Date: 07/19/18 Status: Ordered docusate sodium 100 mg oral capsule 100 mg, 1, capsule, By Mouth, 2 times a day, # 60 capsule, Refills 11, Tot. Refills 11, Maintenance, 02/21/19 14:45:44 EST, Route to Pharmacy Electronically, [id number], [place], [place] -, 168, cm, 02/14/19... Start Date: 02/21/19 Stop Date: 02/16/20 Status: Ordered Ensure (Vanilla Flavor) Ensure (Vanilla Flavor), See Instructions, # 60 each, Refills 11, Tot. Refills 11, Maintenance, Drink 1 can BID. Diagnosis: Chronic Pancreatitis, Cirrhosis. ICD10 K86.1, K74.6, Fax to Anna( [facility], #[phone]), 12/06/17 13:28:49 EDT, Compound Start Date: 12/06/17 Status: Ordered gabapentin 100 mg oral capsule 100 mg, 1, capsule, By Mouth, 2 times a day, # 60 capsule, Refills 6, Tot. Refills 6, Maintenance, 07/19/18 9:05:59 EDT, Route to Pharmacy Electronically, [id number], [email or web address] [id number] Start Date: 07/19/18 Stop Date: 02/14/19 Status: [...] TABLET BY MOUTH DAILY FOR STOMACH ACID, [facility] #[id number] Start Date: 11/28/18 Status: Ordered Please draw CBC with dif (for ANC) weekly and fax results to: Attn Dr. Mariano Andrade, Outpatient Psychi Please draw CBC with dif (for ANC) weekly and fax results to: Attn Dr. 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 Started at age: 15 Years. Sex
--- OUTSIDE RECORDS SUMMARY | 2023-02-09 22:38 | XMS_ITS | Continuity of Care Document ---
Author Name Unknown Organization [facility] Address [address] [place] [address]- Care Team Providers Care Lathmaker Name Role Phone Jaki Bishop MD Primary Care Physician [facility]counter [facility] Date(s): 02/10/21 - 03/12/[address] [id number] Allergies, Adverse Reactions, Alerts [...] to COVID vaccine 2Admin Note: VIS GIVEN [id number] 3Admin Note: VIS GIVEN 2008- 4Admin Note: [...] 02/06/21 19:54:00 EST, Route to Pharmacy Electronically, [place], [place] - [id number], Partial fill upon patient request if the prescri... Start Date: 02/06/21 Status: Ordered Glucerna (Chocolate Flavor) Glucerna (Chocolate Flavor), See Instructions, # 60 each, Refills 11, Tot. Refills 11, Maintenance,Drink 1 can BID. 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Fax to Anna ( [facility], #[phone]), 03/12/21... Start Date: 03/12/21 Status: Ordered Insulin Lispro KwikPen 100 units/mL injectable solution See Instructions, TID Prior to meals << Sliding Scale Comments >> 120 - 169 3 units Call if less than 100 170 - 219 5 units 220 - 269 7 units 270 - 319 9 units 320 - 369 11 units Call if greater than 400 << Sliding Scale Comments >... Start Date: 02/26/21 Status: Ordered Lantus Solostar Pen 100 units/mL subcutaneous solution = 10 units, Subcutaneous Infusion, Daily, Discontinue Basaglar, # 12 mL, 5 Refills, Maintenance, 02/06/21 19:54:00 EST, [facility] [place], [place] - [id number], Partial fill upon patient request if the prescription is for a schedule II opioid d... Start Date: 02/06/21 Stop Date: 08/05/21 Status: Ordered loratadine 10 mg oral tablet 10 mg, 1, tablet, By Mouth, Daily, # 30 tablet, Refills 0, Tot. Refills 0, Maintenance, 11/28/20 9:25:00 EDT, Route to Pharmacy Electronically, [facility] 3, Partial fill upon patient request [...] magnesium oxide 400 mg oral tablet 1 tablet, By Mouth, 2 times a day, # 60 tablet, 2 Refills, [facility], 166.6, cm, 02/16/21 15:24:00 EST, Height, 94.4, kg, 02/11/21 14:27:00 EST, Dry Weight Start Date: 03/05/21 Status: Ordered Nicoderm C-Q Clear 14 mg/24 hr transdermal film, extended release 1 patch, Topically, Daily, for 30 days, # 30 patch, 0 Refills, Acute 03/18/21 13:06:00 EST, 02/16/21 13:06:00 EST, Patch, [facility] 3, Partial fill upon patient request if the prescription is for a schedule II opioid drug., 166.6, cm, ... Start Date: 02/16/21 Stop Date: 03/18/21 Status: Ordered Nicotine 2 mg gum = 2 mg, Chew, Every 2 hours, PRN Other, for 6 week(s), Nicotine Cravings, # 40 each, 1 Refills, Acute 05/11/21 13:06:00 EST, 02/16/21 13:06:00 EST, Gum, [facility], Partial fill upon patient request [...] and snack, # 90 capsule, 0 Refills, Maintenance,02/26/21 18:23:00 EST, CR Capsule, [facility] 3, Partial fill upon patient request if the prescription is for a schedule II opioid drug., 1... Start Date: 02/26/21 Stop Date: 03/28/21 Status: Ordered pantoprazole 40 mg oral delayed [...] 0 Refills, Maintenance, 11/28/20 9:27:00 EDT, Nasal [place], [facility] 3, Partial fill upon patient request [...] 5 Refills, Maintenance, 02/06/21 19:56:00 EST, Tablet, [facility] [place], [place] - [id number], Partial fill upon patient request if the [...] Active H/O tubal ligation(Confirmed) Active BHN/ CP Order Booker/Janet Pandey [phone](Confirmed) Active History of cholecystectomy(Confirmed) Active Hypertension(Confirmed) Active Hypoxia(Confirmed) Active Incisional hernia(Confirmed) Active Nicotine dependence(Confirmed) Active Obese class II(Confirmed) [...]
--- OUTSIDE RECORDS SUMMARY | 2023-02-09 22:38 | XMS_ITS | Continuity of Care Document ---
Author Name Unknown Organization [facility] Address [address] [place] [address]- Care Team Providers Care Mixing Plant Dumper Name Role Phone Jaki Bishop MD Primary Care Physician [facility]counter [facility] Date(s): 04/27/22 - 05/27/[address] [address]- Allergies, Adverse Reactions, Alerts Substance Reaction Severity [...] to COVID vaccine 2Admin Note: VIS GIVEN [id number] 3Admin Note: VIS GIVEN 2008- 4Admin Note: [...] 04/29/22 14:29:00 EST, Route to Pharmacy Electronically, [facility] [id number], Partial fill upon patient request if the prescr... Start Date: 04/29/22 Stop Date: 08/27/22 Status: Ordered cloNIDine 0.1 mg oral tablet 0.1 mg, 1, tablet, By Mouth, Daily, # 30 tablet, Refills 3, Tot. Refills 3, Maintenance, 04/29/22 14:29:00 EST, Route to Pharmacy Electronically, [facility] [id number], Partial fill upon patient request if the prescription is... Start Date: 04/29/22 Stop Date: 08/27/22 Status: Ordered Coreg 6.25 mg oral tablet 6.25 mg, 1, tablet, By Mouth, 2 times a day, # 60 tablet, Refills 3, Tot. Refills 3, Maintenance, 04/29/22 14:29:00 EST, Route to Pharmacy Electronically, [facility] [id number], Partial fill upon patient request if the prescri... Start Date: 04/29/22 Stop Date: 08/27/22 Status: Ordered Creon 12,000 units oral delayed release capsule 1 capsule, By Mouth, 3 times a day, # 90 capsule, 3 Refills, Maintenance, 04/29/22 14:37:00 EST, ECCapsule, [facility] [id number], Partial fill upon patient request if the prescription is for a schedule II opioid drug., 167,... Start Date: 04/29/22 Status: Ordered diphenhydrAMINE 25 mg oral tablet 1 tablet = 25 mg, By Mouth, 3 times a day, for 30 days, PRN Agitation, # 90 tablet, 1 Refills, Acute 06/28/22 15:55:00 EDT, 04/29/22 15:55:00 EST, Tablet, [facility] [id number], Partial fill upon patient request if the prescri... Start Date: 04/29/22 Stop Date: 06/28/22 Status: Ordered divalproex sodium 500 mg oral enteric coated tablet 1 tablet = 500 mg, By Mouth, 2 times a day, # 60 tablet, 3 Refills, Maintenance, 04/29/22 14:33:00 EST, Tablet, [facility] [id number], Partial fill upon patient request if the prescription is for a schedule II opioid drug., 16... Start Date: 04/29/22 Stop Date: 08/27/22 Status: Ordered folic acid 1 mg oral tablet 1 mg, 1, tablet, By Mouth, Daily, # 30 tablet, Refills 1, Tot. Refills 1, Maintenance, 04/29/22 14:34:00 EST, Route to Pharmacy Electronically, [facility] [id number], Partialfill upon patient request if the prescription [...] 0 Refills, Maintenance, 04/08/22 16:16:00 EST, Liquid, [facility] [place], [place] - [id number], Partial fill upon patient request if the [...] 2 Refills, Maintenance, 04/29/22 14:34:00 EST, Solution, [facility] [id number], Partial fill upon patient request if the prescription is for a schedule II opioid drug.,... Start Date: 04/29/22 Status: Ordered multivitamin Multiple Vitamins oral tablet 1 tablet, By Mouth, Daily, # 90 tablet, 1 Refills, Maintenance, 04/02/22 16:44:00 EST, Tablet, [facility] [id number], Partial fill upon patient request if the [...] 04/29/22 14:39:00 EST, Route to Pharmacy Electronically, [facility] [id number], Partial fill upon patient request if the prescription... Start Date: 04/29/22 Stop Date: 08/27/22 Status: Ordered risperiDONE 3 mg oral tablet 3 mg, 1, tablet, By Mouth, Daily at bedtime, # 30 tablet, Refills 3, Tot. Refills 3, Maintenance, 04/29/22 14:39:00 EST, Route to Pharmacy Electronically, [facility] [id number], Partial fill upon patient request if the prescri... Start Date: 04/29/22 Status: Ordered thiamine 100 mg oral tablet 100 mg, 1, tablet, By Mouth, Daily, for 30 days, # 30 tablet, Refills 3, Tot. Refills 3, Acute 08/27/22 14:40:00 EDT, 04/29/22 14:40:00 EST, Route to Pharmacy Electronically, [place], [place] - [id number], Partial fill upon patient re... Start Date: 04/29/22 Stop Date: 08/27/22 Status: Ordered tiotropium 2.5 mcg/inh inhalation aerosol 2 puffs, Inhalation, Daily, # 1 each, 0 Refills, Maintenance, 03/25/22 12:09:00 EST, Inhaler, [facility] 3, Partial fill upon patient request [...] Care Team Personnel Name: Lawrence Hendrix Position: [facility] RN Supv Member Role: Primary Care Nurse Name: Rufino Lloyd RN Position: [facility] RN Member Role: Primary Care Nurse Name: Cristina Carpenter RN Position: [facility] RN Member Role: Primary Care Nurse Name: Rosette Noriega RN Position: [facility] SN RN Member Role: Primary Care Nurse Name: Mary Hidalgo RN Position: [facility] PCO RN Member Role: Primary Care Nurse Name: Sissy Duran RN Position: [facility] AMB Nurse Member Role: Primary Care Nurse Name: Rohit Zavaleta RN Position: [facility] RN Member Role: Primary Care Nurse Name: Erlinda Hartman NP Position: [facility] Associate Professional Member Role: Primary Care Nurse Address: Address: [address] [place] [address] Name: Jong Suazo RN Position: [facility] RN Supv Member Role: Primary Care Nurse Name: Shante Solis RN Position: [facility] RN Member Role: Primary Care Nurse Name: Joshua Prakash RN Position: [facility] RN Member Role: Primary Care Nurse Name: Bettie Vanegas RN Position: [facility] RN Member Role: Primary Care Nurse Name: Jay Marroquin RN Position: [facility] RN Member Role: Primary Care Nurse Name: Adrianna Church RN Position: [facility] RN Member Role: Primary Care Nurse Name: Sue Purdy RN Position: [facility] RN Member Role: Primary Care Nurse Name: Hector Perez RN Position: [facility] RN Member Role: Primary Care Nurse Name: Aleena Vizcaino RN Position: [facility] RN Member Role: Primary Care Nurse Name: Kacey Wilhelm RN Position: [facility] RN Member Role: Primary Care Nurse Name: Monalisa Barker LPN Position: [facility] AMB Nurse Member Role: Primary Care Nurse Name: Leslie Malloy RN Position: [facility] RN Member Role: Primary Care Nurse Name: Yesenia Hu LPN Position: [facility] RN Member Role: Primary Care Nurse Name: Joaquina Herrera RN Position: [facility] RN Member Role: Primary Care Nurse Name: Diego Bell RN Position: [facility] RN Member Role: Primary Care Nurse Name: Ese Grey Position: [facility] RN Member Role: Primary Care Nurse Name: Chela Najera RN Position: [facility] RN Member Role: Primary Care Nurse Name: Tootie Gonzalez RN Position: [facility] RN Member Role: Primary Care Nurse Name: Nancy Monte RN Position: [facility] RN Member Role: Primary Care Nurse Name: Marilee Starkey Position: [facility] RN Member Role: Primary Care Nurse Name: Silvina Dodd RN Position: [facility] RN Member Role: Primary Care Nurse Name: Flaco Clifford DO Position: [facility] Renal MD Member Role: Lifetime Consulting Physician Address: Address: [address] [place] [address] [facility] [place], [place] [address] Name: Marilee Richardson RN Position: [facility] RN Member Role: Primary Care Nurse Name: Rufino Johnson RN Position: [facility] RN Member Role: Primary Care Nurse Name: Jovita Camargo RN Position: [facility] RN Member Role: Primary Care Nurse Name: Ju Zhu Position: [facility] RN Member Role: Primary Care Nurse Name: Ester Palomares Position: [facility] RN Member Role: Primary Care Nurse Name: Emma Colbert RN Position: [facility] RN Supv Member Role: Primary Care Nurse Name: Hallie Gambino RN Position: [facility] Onco RN Member Role: Primary Care Nurse Name: Maya Ambriz RN Position: [facility] RN Member Role: Primary Care Nurse Name: Bhavna Rendon LPN Position: [facility] RN Member Role: Primary Care Nurse Name: Luis Burton RN Position: [facility] RN Member Role: Primary Care Nurse Name: Jaki Bishop MD Position: [facility] Primary Care Physician Member Role: PCP Address: Address: [address] [place] [address]- Name: Lucian Krause RN Position: [facility] RN Member Role: Primary Care Nurse Name: Leslie Ward RN Position: [facility] RN Member Role: Primary Care Nurse Name: Jacki Gomes RN Position: [facility] RN Member Role: Primary Care Nurse Name: Ximena Saab RN Position: [facility] RN Member Role: Primary Care Nurse Name: Ivette Shankar RN Position: [facility] RN Supv Member Role: Primary Care Nurse Name: Laura Mary RN Position: [facility] SN RN Member Role: Primary Care Nurse Name: Octavio Box RN Position: [facility] RN Member Role: Primary Care Nurse Name: Nazia Tapia RN Position: [facility] RN Member Role: Primary Care Nurse Name: Caren Hernandez RN Position: [facility] RN Supv Member Role: Primary Care Nurse Name: Veronica Queen RN Position: [facility] RN Member Role: Primary Care Nurse Name: Perri Bryant RN Position: [facility] RN Member Role: Primary Care Nurse Name: Alba Toro RN Position: [facility] RN Member Role: Primary Care Nurse Name: Nely Wong RN Position: [facility] RN Member Role: Primary Care Nurse Name: Erica Brandon RN Position: [facility] RN Member Role: Primary Care Nurse Name: Adrianna Gonzalez RN Position: [facility] RN Member Role: Primary Care Nurse Name: Annmarie Feldman RN Position: [facility] PCO w/OE and EZ Script Member Role: Primary Care Nurse Name: Chinyere Espinoza RN Position: [facility] RN Member Role: Primary Care Nurse Name: Teresita Diallo RN Position: [facility] RN Member Role: Primary Care Nurse Name: Tennille Mcgarry RN Position: [facility] Hospital Reference Assistant Member Role: Primary Care Nurse Name: Vicky Salazar RN Position: [facility] RN Member Role: Primary Care Nurse Name: Spencer Jameson RN Position: [facility] RN Member Role: Primary Care Nurse Name: Jalen Mullins Position: [facility] RN Member Role: Primary Care Nurse Care Team Related Persons Name: ARIANNA MARYANNE Address: home [address] [place] [address] Name: MARYANNE KELLER Address: home [address] [address] Name: MARYANNE KELLER JR Address: home [address] [place] [address] Name: GEORGIA KELLER Address: [place] [address] Name: BALDEV POLANCO Address: [place] [address]
--- OUTSIDE RECORDS SUMMARY | 2023-02-09 22:39 | XMS_ITS | Continuity of Care Document ---
Author Name Unknown Organization [facility] Address [address] [place] [address]- Care Team Providers Care Model Maker Apprentice Name Role Phone Jaki Bishop MD Primary Care Physician [facility]counter [facility] Date(s): 12/23/20 - 01/22/[address] [address]- Allergies, Adverse Reactions, Alerts Substance Reaction Severity [...] to COVID vaccine 2Admin Note: VIS GIVEN [id number] 3Admin Note: VIS GIVEN 2008-12 4Admin Note: vis 5Admin Note: vis 02/06/08 Medications acetaminophen 325 mg oral tablet 650 mg, By Mouth, Every 6 hours, PRN, /Headache, Refills 0, Maintenance, Pain , Mild, 09/26/20 21:44:00 EDT, Partial fill upon patient request if the prescription is for a schedule II opioid drug. Start Date: 09/26/20 Status: Ordered benztropine 0.5 mg oral tablet 0.5 mg, 1, tablet, By Mouth, 2 times a day, # 60 tablet, Refills 0, Tot. Refills 0, Maintenance, 11/28/20 9:27:00 EDT, Route to Pharmacy Electronically, [facility], Partial fill upon patient request if the prescription is for a schedule... Start Date: 11/28/20 Status: Ordered Cane See Instructions, # 1 each, Maintenance, [id number], includes canes of all materials, adjustable orfixed, with tip, 11/28/20 9:32:00 EDT, Supply, 167.64, cm, 11/27/20 22:30:00 EDT, Height, 98.5, kg,10/22/20 17:50:00 EDT, Dry Weight Start Date: 11/28/20 Status: Ordered clozapine 100 mg oral tablet 1 tablet = 100 mg, By Mouth, 2 times a day, # 60 tablet, 0 Refills, Maintenance, 11/28/20 9:20:00 EDT, Tablet, [facility], Partial fill upon patient request if the prescription is for aschedule II opioid drug., 167.64, cm, 11/27/20 22:3... Start Date: 11/28/20 Status: Ordered Coreg 12.5 mg oral tablet 12.5 mg, 1, tablet, By Mouth, 2 times a day, # 60 tablet, Refills 0, Tot. Refills 0, Maintenance, 11/28/20 9:20:00 EDT, Route to Pharmacy Electronically, [facility], Partial fill upon patient [...] Injection, 3 times a day before meals, for 30 days, << Sliding ScaleComments >> 120 - 169 3 units Call if less than 100 170 - 219 5 units 220 - 269 7 units 270 -319 9 units 320 - 369 11 units Call if greate... Start Date: 11/28/20 Stop Date: 01/27/21 Status: Ordered insulin lispro 100 u/ml subcutaneous injection 3-11 units, Subcutaneous Injection, 3 times a day before meals, << Sliding Scale Comments >> 120 - 169 3 units Call if less than 100 170 - 219 5 units 220 - 269 7 units 270 - 319 9 units 320 - 369 11 units Call if greater than 400 <... Start Date: 01/27/21 Stop Date: 04/27/21 Status: Ordered lactulose 10 gm/15 ml oral syrup 30 mL = 20 Gm, By Mouth, 2 times a day, for 30 days, # 1,800 mL, 1 Refills, Acute 01/27/21 9:24:00 EST, 11/28/20 9:24:00 EDT, Syrup, [facility], Partial fill upon patient request if theprescription is for a schedule II opioid drug., 30... Start Date: 11/28/20 Stop Date: 01/27/21 Status: Ordered Lantus Solostar Pen 100 units/mL subcutaneous solution = 10 units, Subcutaneous Infusion, Daily, Discontinue Basaglar, # 12 mL, 5 Refills, Maintenance, 01/22/21 18:45:00 EDT, [id number], Partial fill upon patient request if the prescription is for a schedule II opioid drug., 167.64, cm, 0... Start Date: 01/22/21 Stop Date: 07/21/21 Status: Ordered loratadine 10 mg oral tablet 10 mg, 1, tablet, By Mouth, Daily, # 30 tablet, Refills 0, Tot. Refills 0, Maintenance, 11/28/20 9:25:00 EDT, Route to Pharmacy Electronically, [facility], Partial fill upon patient [...] a day, # 60 tablet, 0 Refills, [facility], 167.64, cm, 11/27/20 22:30:00 EDT, Height, 98.5, kg, 10/22/20 17:50:00 EDT, Dry Weight Start Date: 01/08/21 Status: Ordered Nicotine 2 mg gum = 2 mg, Chew, Every 2 hours, PRN Other, for 6 week(s), Nicotine Cravings, # 40 each, 1 Refills, Acute 02/20/21 9:25:00 EST, 11/28/20 9:25:00 EDT, Gum, [facility], Partial fill upon patient request if the prescription is for a schedule II... Start Date: 11/28/20 Stop Date: 02/20/21 Status: Ordered pancrelipase 10,000 units-32,000 units-42,000 units oral delayed release capsule 1 capsule, By Mouth, 3 times a day, with each meal and snack, # 90 capsule, 0 Refills, Maintenance,11/28/20 9:26:00 EDT, CR Capsule, [facility], Partial fill upon patient [...] 0 Refills, Maintenance, 11/28/20 9:27:00 EDT, Nasal [place], [facility], Partial fill upon patient request if the prescription is for a schedule II opioid drug., 2 sprays... Start Date: 11/28/20 Stop Date: 12/28/20 Status: Ordered torsemide 20 mg oral tablet 1 tablet = 20 mg, By Mouth, Daily, # 30 tablet, 0 Refills, Maintenance, 11/28/20 9:27:00 EDT, Tablet, [facility], Partial fill upon patient request if [...] Active H/O tubal ligation(Confirmed) Active BHN/BH CP Mission Analyst/Janet salvador [facility] [phone](Confirmed) Active History of cholecystectomy(Confirmed) Active Hypertension(Confirmed) Active [...]
--- OUTSIDE RECORDS SUMMARY | 2023-02-09 22:39 | XMS_ITS | Continuity of Care Document ---
Author Name Unknown Organization [facility] Address [address] [place] [address]- Care Team Providers Care Photographic Equipment Mechanic Name Role Phone Jaki Bishop MD Primary Care Physician [place] [facility] [place] 04/25[place] - 06/05/[address] [address]- Attending Physician: Jaki Bishop MD Admitting Physician: [...] to COVID vaccine 2Admin Note: VIS GIVEN [id number] 3Admin Note: VIS GIVEN 2008- 4Admin Note: [...] MOUTH DAILY, # 90 tablet, 1 Refills, [facility], 150, TAKE ONE TABLET BY MOUTH DAILY, 167.64, cm, 03/23/21 14:44:00 EST, Height, 100.9, kg, 03/16/21 4:59:00 EST, Dry Weight Start Date: 05/26/21 Status: Ordered docusate sodium 100 mg oral [...] Replace Required Details, Route to Pharmacy Electronically, [facility], 167.64, cm, 03/23/21 14:44:00 EST, Height, 100.9, [...] 3 Refills, Maintenance, 04/24/21 13:09:00 EST, Tablet, [facility] [id number], Partial fill upon patient request if the [...] 2 Refills, Maintenance,05/08/21 12:22:00 EST, CR Capsule, [place], [place] - [id number], Partial fill upon patient request if the [...] Active H/O tubal ligation(Confirmed) Active BHN/ CP County Demonstrator/Janet salvador [facility] [phone](Confirmed) Active Heart failure(Confirmed) Active History of cholecystectomy(Confirmed) [...]
--- OUTSIDE RECORDS SUMMARY | 2023-02-09 22:39 | XMS_ITS | Continuity of Care Document ---
Author Name Unknown Organization [facility] Address [address] [place] [address]- Care Team Providers Care Broodmare Foreman Name Role Phone Jaki Bishop MD Primary Care Physician [phone] Encounter [facility] Date(s): 06/30/20 - 07/30/[address] [address]- Allergies, Adverse Reactions, Alerts Substance Reaction Severity [...] Given Permanently Refused 1Admin Note: VIS GIVEN [id number] 2Admin Note: VIS GIVEN 2008-12 3Admin Note: vis 4Admin Note: vis 02/06/08 Medications acetaminophen 325 mg oral tablet 1, tablet, By Mouth, 4 times a day, PRN, not to exceed 4 TABLETS PER DAY. Not to exceed 2000 mg/day. PRN Pain, # 60 tablet, Refills 0, Tot. Refills 0, Maintenance, NEEDED, 07/22/20 10:39:00 EDT, Route to Pharmacy Electronically, [facility] -... Start Date: 07/22/20 Status: Ordered [...] 0 Refills, Maintenance, 04/16/20 11:06:00 EST, Tablet, [facility] [id number], Partial fill upon patient request if the prescription is for a schedule II opioid drug., 168,... Start Date: 04/16/20 Status: Ordered clozapine 50 mg oral tablet 3 tablet = 150 mg, By Mouth, Daily at bedtime, # 90 tablet, 0 Refills, Maintenance, 04/16/20 11:06:00 EST, Tablet, [facility] [id number], Partial fill upon patient request ifthe prescription is for a schedule II opioid drug.,... Start Date: 04/16/20 Status: Ordered Comfort EZ Pen [place] 31 gauge x 5/16 Comfort EZ Pen [place] 31 gauge x 5/16 , See Instructions, [...] 05/26/20 14:41:00 EST, Route to Pharmacy Electronically, [facility] [id number], Partial fill upon patient request if the prescr... Start Date: 05/26/20 Stop Date: 11/22/20 Status: Ordered docusate sodium 100 mg oral capsule = 100 mg, By Mouth, 2 times a day, PRN Constipation., # 60 capsule, 5 Refills, Maintenance, 07/21/20 10:54:00 EDT, Capsule, [facility] [id number], Partial fill upon patient request if the [...] Maintenance,05/28/20 13:46:00 EST, Route to Pharmacy Electronically, [facility] [id number], Partial fill upon patient request if the [...] K86.1, K74.6, E11.65. Fax to Anna ( [facility], #[phone]), 06/06/20 19... Start Date: 06/06/20 Status: Ordered [...] mL, 1 Refills, Maintenance, 04/16/20 11:07:00 EST, [facility] [id number],... Start Date: 04/16/20 Status: Ordered lactulose 10 gm/15 ml oral syrup 30 mL, By Mouth, 2 times a day, # 581 mL, 3 Refills, Maintenance, 06/27/20 11:11:00 EDT, [facility] [id number], 10, 30 mL By Mouth 2 times [...] 3 Refills, Maintenance, 07/29/20 10:17:00 EDT, Solution, [facility] [place] - [id number], 168, cm, 04/16/20 8:30:00 EST, Height, 98.7, kg, 2... Start Date: 07/29/20 Status: Ordered loratadine 10 mg oral tablet See Instructions, TAKE ONE TABLET BY MOUTH DAILY, # 30 tablet, Refills 5, Tot. Refills 5, 05/01/20 8:18:00 EST, Instructions Replace Required Details, Route to Pharmacy Electronically, [facility] [place] - [id number], 168, cm, 04/16/20... Start Date: 05/01/20 Status: Ordered multivitamin Multiple Vitamins oral tablet 1 tablet, By Mouth, Daily, # 90 tablet, 1 Refills, Maintenance, 05/26/20 13:28:00 EST, Tablet, [facility] [place] - [id number], 1 tablet By Mouth Daily, 168, cm, [...] 0 Refills, Maintenance, 04/16/20 11:08:00 EST, Gum, [place], [place] - [id number], Partial fill upon patient request if the [...] 5 Refills, Maintenance, 07/14/20 16:30:00 EDT, Tablet, [place], [place] - [id number], this is an increased, 1 tablet By Mouth 2 times a day,x30 days, 168, cm, 04/16/20 8:30:00 EST, Heigh... Start Date: 07/14/20 Stop Date: 01/10/21 Status: Ordered torsemide 20 mg oral tablet 1 tablet = 20 mg, By Mouth, Daily, # 30 tablet, 1 Refills, Maintenance, 04/16/20 11:09:00 EST, Tablet, [facility] [id number], Partial fill upon patient request if the prescription is for a schedule II opioid drug., 168, cm, 01... Start Date: 04/16/20 Stop Date: 04/11/21 Status: Ordered Zenpep 10,000 units-32,000 units-42,000 units oral delayed release capsule 1 capsule, By Mouth, 3 times a day, # 90 capsule, 0 Refills, Maintenance, 04/16/20 11:09:00 EST, [place], [place] - [id number], 1 capsule By Mouth 3 times a [...] Active H/O tubal ligation(Confirmed) Active BHN/ [phone](Confirmed) Active History of cholecystectomy(Confirmed) Active Hypertension(Confirmed) Active [...]
--- OUTSIDE RECORDS SUMMARY | 2023-02-09 22:39 | XMS_ITS | Continuity of Care Document ---
Author Name Unknown Organization [facility] Address [address] [place] [address]- Care Team Providers Care Manager Civil Name Role Phone Dario HAYDEN, Jaki Primary Care Physician [phone] Encounter [facility] Date(s): 12/07/22 - 01/06/[address] [address]- Allergies, Adverse Reactions, Alerts Substance Reaction Severity [...] to COVID vaccine 2Admin Note: VIS GIVEN [id number] 3Admin Note: VIS GIVEN 2008- 4Admin Note: vis 5Admin Note: vis 02/06/08 Medications albuterol 90 mcg/inh inhalation powder 2 puffs, Inhalation, Every 4 hours, PRN as needed, PRN Wheezing, # 1 each, 1 Refills, Maintenance, 06/28/22 14:49:00 EDT, Powder, [facility] [id number], Partial fill upon patient request if the [...] 07/16/22 16:04:00 EDT, Route to Pharmacy Electronically, [facility] [id number], Partialfill upon patient request if the prescription is fo... Start Date: 07/16/22 Status: Ordered benztropine 1 mg oral tablet 0.5 mg, 0.5, tablet, By Mouth, 2 times a day, # 30 tablet, Refills 3, Tot. Refills 3, Maintenance, 09/17/22 1:51:00 EDT, Route to Pharmacy Electronically, [facility] [id number], Partial fill upon patient request if the [...] 10/18/22 11:46:00 EDT, Route to Pharmacy Electronically, [facility] [id number], Partial fill upon patient request if the prescr... Start Date: 10/18/22 Status: Ordered cloNIDine 0.1 mg oral tablet 0.1 mg, 1, tablet, By Mouth, Daily at bedtime, # 30 tablet, Refills 2, Tot. Refills 2, Maintenance,12/09/22 19:15:00 EDT, Route to Pharmacy Electronically, [facility] [id number], Partial fill upon patient request if the presc... Start Date: 12/09/22 Status: Ordered Creon 12,000 units oral delayed release capsule 1 capsule, By Mouth, 3 times a day, # 90 capsule, 3 Refills, Maintenance, 09/17/22 1:49:00 EDT, EC Capsule, [facility] [id number], Partial fill upon patient request if the [...] 09/17/22 1:48:00 EDT, Route to Pharmacy Electronically, [facility] [id number], 160, cm, 07/26/22 12:51:00 EDT, Height, 89.2, [...] 10/18/22 11:46:00 EDT, Route to Pharmacy Electronically, [facility] [id number], Partial fill upon patient request if the [...] mL, 5 Refills, Maintenance, 12/09/22 19:15:00 EDT, [facility] [id number], 15, 30 mL By Mouth 2 times a day, 165.09, cm, 10/18/22 11:23:00 EDT, Height, 83.7, kg, 10/05/22 21:20:00 EDT, Start Date: 12/09/22 Status: Ordered Lantus Solostar Pen 100 units/mL subcutaneous solution = 6 units, Subcutaneous Injection, Daily in AM, # 10 mL, 2 Refills, Maintenance, 12/09/22 19:15:00 EDT, Solution, [facility] [id number], Partial fill upon patient request if the prescription is for a schedule II opioid drug.,... Start Date: 12/09/22 Status: Ordered magnesium oxide 400 mg oral tablet 1 tablet = 400 mg, By Mouth, Daily, for 14 days, # 14 tablet, 0 Refills, Acute 01/10/23 7:43:00 EDT, 12/27/22 7:43:00 EDT, Tablet, [facility] [id number], Partial fill upon patient request if the prescription is for a schedule... Start Date: 12/27/22 Stop Date: 01/10/23 Status: Ordered multivitamin Multiple Vitamins oral tablet 1 tablet, By Mouth, Daily, # 90 tablet, 1 Refills, Maintenance, 10/22/22 19:32:00 EDT, Tablet, [facility] [id number], Partial fill upon patient request if the prescription isfor a schedule II opioid drug., 1 tablet By Mouth D... Start Date: 10/22/22 Status: Ordered Nicotine 2 mg gum 1 each = 2 mg, Chew, Every 2 hours, PRN for smoking cessation, for 4 week(s), # 160 each, 1 Refills, Acute 02/03/23 19:15:00 EST, 12/09/22 19:15:00 EDT, Gum, [facility] [id number], Partial fill upon patient request if the pres... Start Date: 12/09/22 Stop Date: 02/03/23 Status: Ordered pantoprazole 40 mg oral delayed release tablet 1 tablet, By Mouth, Daily, # 30 tablet, 2 Refills, Maintenance, 11/10/22 11:02:00 EDT, 165.09, cm, 10/18/22 11:23:00 EDT, Height, 83.7, kg, 10/05/22 21:20:00 EDT, Dry Weight Start Date: 11/10/22 Status: Ordered Pen [place], 31 G x 5 mm BD Ultra [...] 10/12/22 10:21:00 EDT, Route to Pharmacy Electronically, [facility] [id number], Partial fill upon patient request if the prescription... Start Date: 10/12/22 Stop Date: 11/11/22 Status: Ordered risperiDONE 3 mg oral tablet 3 mg, 1, tablet, By Mouth, Daily at bedtime, # 30 tablet, Refills 0, Tot. Refills 0, Maintenance, 10/12/22 10:21:00 EDT, Route to Pharmacy Electronically, [facility] [id number], Partial fill upon patient request if the [...] 5 Refills, Maintenance, 09/17/22 1:52:00 EDT, [facility] [place] [id number], Partial fill upon patient request if the prescription is for a schedule II opioid drug., 160, cm, 07/26/22 12:... Start Date: 09/17/22 Stop Date: 03/16/23 Status: Ordered traZODone 50 mg oral tablet 50 mg, 1, tablet, By Mouth, Daily at bedtime, # 30 tablet, Refills 2, Tot. Refills 2, Maintenance, 12/09/22 19:15:00 EDT, Route to Pharmacy Electronically, [facility] [id number], Partial fill upon patient request if the [...] Care Team Personnel Name: Lawrence Hendrix Position: [facility] RN Member Role: Primary Care Nurse Name: Nazia Norris RN Position: [facility] Outreach Member Role: Primary Care Nurse Name: Rufino Lloyd RN Position: [facility] RN Member Role: Primary Care Nurse Name: Cristina Carpenter RN Position: [facility] RN Member Role: Primary Care Nurse Name: Rosette Noriega RN Position: [facility] SN RN Member Role: Primary Care Nurse Name: Mary Hidalgo RN Position: [facility] AMB Nurse Member Role: Primary Care Nurse Name: Sissy Duran RN Position: [facility] AMB Nurse Member Role: Primary Care Nurse Name: Rohit Zavaleta RN Position: [facility] RN Member Role: Primary Care Nurse Name: Erlinda Hartman NP Position: [facility] Associate Professional Member Role: Primary Care Nurse Address: Address: [address] [place] [address] Name: Shante Solis RN Position: [facility] RN Member Role: Primary Care Nurse Name: Joshua Prakash RN Position: [facility] RN Member Role: Primary Care Nurse Name: Bettie Vanegas RN Position: [facility] SN RN Member Role: Primary Care Nurse Name: Jay Marroquin RN Position: [facility] RN Member Role: Primary Care Nurse Name: Adrianna Church RN Position: [facility] RN Member Role: Primary Care Nurse Name: Sue Purdy RN Position: [facility] RN Member Role: Primary Care Nurse Name: Hector Perez RN Position: [facility] RN Member Role: Primary Care Nurse Name: Aleena Vizcaino RN Position: [facility] RN Member Role: Primary Care Nurse Name: Kacey Wilhelm RN Position: [facility] RN Member Role: Primary Care Nurse Name: Leslie Malloy RN Position: [facility] RN Member Role: Primary Care Nurse Name: Yesenia Hu LPN Position: [facility] RN Member Role: Primary Care Nurse Name: Joaquina Herrera RN Position: [facility] RN Member Role: Primary Care Nurse Name: Diego Bell RN Position: [facility] RN Member Role: Primary Care Nurse Name: Ese Grey Position: [facility] RN Member Role: Primary Care Nurse Name: Chela Najera RN Position: [facility] RN Member Role: Primary Care Nurse Name: Tootie Gonzalez RN Position: [facility] RN Member Role: Primary Care Nurse Name: Nancy Monte RN Position: [facility] RN Member Role: Primary Care Nurse Name: Marilee Starkey Position: [facility] RN Member Role: Primary Care Nurse Name: Silvina Dodd RN Position: [facility] RN Member Role: Primary Care Nurse Name: Flaco Clifford DO Position: [facility] Renal MD Member Role: Lifetime Consulting Physician Address: Address: [address] [place] [address] [facility] [place] [address]- Name: Marilee Richardson RN Position: [facility] RN Member Role: Primary Care Nurse Name: Rufino Johnson RN Position: [facility] RN Member Role: Primary Care Nurse Name: Judson Larry Position: [facility] RN Member Role: Primary Care Nurse Name: Jovita Camargo RN Position: [facility] RN Member Role: Primary Care Nurse Name: Bruna Pizarro Position: [facility] RN Member Role: Primary Care Nurse Name: Ju Zhu Position: [facility] RN Member Role: Primary Care Nurse Name: Ester Palomares Position: [facility] RN Member Role: Primary Care Nurse Name: Emma Colbert RN Position: [facility] RN Member Role: Primary Care Nurse Name: Hallie Gambino RN Position: [facility] Onco RN Member Role: Primary Care Nurse Name: Maya Ambriz RN Position: [facility] RN Member Role: Primary Care Nurse Name: Bhavna Rendon LPN Position: [facility] RN Member Role: Primary Care Nurse Name: Luis Burton RN Position: [facility] RN Member Role: Primary Care Nurse Name: Jaki Bishop MD Position: [facility] Physician - Primary Care Member Role: PCP Address: Address: [address] [place] [address]- Name: Lucian Krause RN Position: [facility] RN Member Role: Primary Care Nurse Name: Misty Tariq Position: [facility] RN Member Role: Primary Care Nurse Name: Isaiah Combs RN Position: [facility] RN Member Role: Primary Care Nurse Name: Leslie Ward RN Position: [facility] RN Member Role: Primary Care Nurse Name: Jacki Gomes RN Position: [facility] RN Member Role: Primary Care Nurse Name: Derek Smith RN Position: [facility] RN Member Role: Primary Care Nurse Name: Perri Smith RN Position: [facility] RN Member Role: Primary Care Nurse Name: Mar Brothers RN Position: [facility] RN Member Role: Primary Care Nurse Name: Ivette Shankar RN Position: [facility] RN Member Role: Primary Care Nurse Name: Laura Mary RN Position: [facility] SN RN Member Role: Primary Care Nurse Name: Mary Guillen RN Position: [facility] RN Member Role: Primary Care Nurse Name: Octavio Box RN Position: [facility] RN Member Role: Primary Care Nurse Name: Nazia Tapia RN Position: [facility] RN Member Role: Primary Care Nurse Name: Pat Jackson RN Position: [facility] RN Member Role: Primary Care Nurse Name: Caren Hernandez RN Position: [facility] RN Supsanchez Member Role: Primary Care Nurse Name: Nely Wong RN Position: [facility] RN Member Role: Primary Care Nurse Name: Erica Brandon RN Position: [facility] RN Member Role: Primary Care Nurse Name: Adrianna Gonzalez RN Position: [facility] RN Member Role: Primary Care Nurse Name: Annmarie Feldman RN Position: [facility] PCO w/OE and EZ Script Member Role: Primary Care Nurse Name: Chinyere Espinoza RN Position: [facility] RN Member Role: Primary Care Nurse Name: Teresita Diallo RN Position: [facility] RN Member Role: Primary Care Nurse Name: Tennille Mcgarry RN Position: [facility] Hospital Electrotherapist Member Role: Primary Care Nurse Name: Vicky Salazar RN Position: [facility] RN Member Role: Primary Care Nurse Name: Spencer Jameson RN Position: [facility] RN Member Role: Primary Care Nurse Name: Jalen Mullins Position: [facility] RN Member Role: Primary Care Nurse Care Team Related Persons Name: MARYANNE KELLER Address: home [address] [place] [address] Name: MARYANNE KELLER Address: home [address] [address] Name: MARYANNE KELLER JR Address: home [address] [place] [address] Name: GEORGIA KELLER Address: [place] [address] Name: BALDEV POLANCO Address: [place] [address]
--- OUTSIDE RECORDS SUMMARY | 2023-02-09 22:39 | XMS_ITS | Continuity of Care Document ---
Author Name Unknown Organization [facility] Address [address] [place] [address]- Care Team Providers Care Career Services Coordinator Name Role Phone Jaki Bishop MD Primary Care Physician [phone] [facility]15[facility]22 - 03/17/[address] [address] Allergies, Adverse Reactions, Alerts Substance [...] to COVID vaccine 2Admin Note: VIS GIVEN [id number] 3Admin Note: VIS GIVEN 2008- 4Admin Note: [...] 02/02/22 9:36:00 EST, Route to Pharmacy Electronically, [facility] [id number], Partial fill upon patient request if the prescri... Start Date: 02/02/22 Status: Ordered cloNIDine 0.1 mg oral tablet 0.1 mg, 1, tablet, By Mouth, Daily, # 15 tablet, Refills 0, Tot. Refills 0, Maintenance, 02/02/22 9:36:00 EST, Route to Pharmacy Electronically, [facility] [id number], Partial fill upon patient request if the prescription is f... Start Date: 02/02/22 Status: Ordered Coreg 6.25 mg oral tablet 6.25 mg, 1, tablet, By Mouth, 2 times a day, # 60 tablet, Refills 0, Tot. Refills 0, Maintenance, 02/02/22 9:36:00 EST, Route to Pharmacy Electronically, [facility] [id number], Partial fill upon patient request if the prescrip... Start Date: 02/02/22 Status: Ordered Creon 12,000 units oral delayed release capsule 1 capsule, By Mouth, 3 times a day, # 90 capsule, 0 Refills, Maintenance, 02/02/22 9:39:00 EST, EC Capsule, [facility] [id number], Partial fill upon patient request if the prescription is for a schedule II opioid drug., 167, c... Start Date: 02/02/22 Status: Ordered divalproex sodium 500 mg oral enteric coated tablet 1 tablet = 500 mg, By Mouth, 2 times a day, # 60 tablet, 0 Refills, Maintenance, 02/02/22 9:36:00 EST, Tablet, [facility] [id number], Partial fill upon patient request if theprescription is for a schedule II opioid drug., 167... Start Date: 02/02/22 Status: Ordered docusate-senna 50 mg-8.6 mg oral [...] 02/02/22 9:36:00 EST, Route to Pharmacy Electronically, [facility] [id number], Partial fill upon patient request if the [...] E... Start Date: 02/18/22 Status: Ordered Insulin Lispro KwikPen 100 units/mL [...] opioid drug. Start Date: 03/10/22 Status: Ordered Lantus Solostar Pen 100 units/mL subcutaneous solution = 16 units, Subcutaneous Injection, Daily, INJECT 16 UNITS UNDER THE SKIN ONCE DAILY Start Date: 03/10/22 Status: Ordered losartan 50 mg oral tablet 50 mg, 1, tablet, By Mouth, Daily, # 30 tablet, Refills 0, Tot. Refills 0, Maintenance, 02/02/22 9:37:00 EST, Route to Pharmacy Electronically, [place], [place] - [id number], Partialfill upon patient request if the prescription is fo... Start Date: 02/02/22 Status: Ordered melatonin 3 mg oral tablet 1 tablet = 3 mg, By Mouth, Daily at bedtime, PRN Insomnia, # 30 tablet, 0 Refills, Maintenance, 02/02/22 9:37:00 EST, Tablet, [facility] [id number], Partial fill upon patientrequest if the prescription [...] 02/02/22 9:39:00 EST, Route to Pharmacy Electronically, [facility] [id number],Partial fill upon patient request if the prescripti... Start Date: 02/02/22 Status: Ordered torsemide 20 mg oral tablet 1 tablet = 20 mg, By Mouth, 2 times a day, # 60 tablet, 0 Refills, Maintenance, 02/02/22 9:40:00 EST, Tablet, [facility] [id number], Partial fill upon patient request if the [...] Team Personnel Name: Daniel Gamino RN Position: [facility] RN Member Role: Primary Care Nurse Name: Lawrence Hendrix Position: [facility] RN Supv Member Role: Primary Care Nurse Name: Rufino Lloyd RN Position: [facility] RN Member Role: Primary Care Nurse Name: Cristina Carpenter RN Position: [facility] RN Member Role: Primary Care Nurse Name: Rosette Noriega RN Position: [facility] SN RN Member Role: Primary Care Nurse Name: Mary Hidalgo RN Position: [facility] PCO RN Member Role: Primary Care Nurse Name: Sissy Duran RN Position: [facility] AMB Nurse Member Role: Primary Care Nurse Name: Rohit Zavaleta RN Position: [facility] RN Member Role: Primary Care Nurse Name: Erlinda Hartman NP Position: [facility] Associate Professional Member Role: Primary Care Nurse Address: Address: [address] [place] [id number] Name: Jong Suazo RN Position: [facility] RN Supv Member Role: Primary Care Nurse Name: Shante Solis RN Position: [facility] RN Member Role: Primary Care Nurse Name: Joshua Prakash RN Position: [facility] RN Member Role: Primary Care Nurse Name: Bettie Vanegas RN Position: [facility] RN Member Role: Primary Care Nurse Name: Jay Marroquin RN Position: [facility] RN Member Role: Primary Care Nurse Name: Sue Purdy RN Position: [facility] RN Member Role: Primary Care Nurse Name: Hector Perez RN Position: [facility] RN Member Role: Primary Care Nurse Name: Aleena Vizcaino RN Position: [facility] RN Member Role: Primary Care Nurse Name: Kacey Wilhelm RN Position: [facility] RN Member Role: Primary Care Nurse Name: Monalisa Barker Position: [facility] RN Member Role: Primary Care Nurse Name: Leslie Malloy RN Position: [facility] RN Member Role: Primary Care Nurse Name: Joaquina Herrera RN Position: [facility] RN Member Role: Primary Care Nurse Name: Diego Bell RN Position: [facility] RN Member Role: Primary Care Nurse Name: Ese Grey Position: [facility] RN Member Role: Primary Care Nurse Name: Chela Najera RN Position: [facility] ED RN W/OE and Tasks Member Role: Primary Care Nurse Name: Tootie Gonzalez RN Position: [facility] RN Member Role: Primary Care Nurse Name: Nancy Monte RN Position: [facility] RN Member Role: Primary Care Nurse Name: Marilee Starkey Position: [facility] RN Member Role: Primary Care Nurse Name: Silvina Dodd RN Position: [facility] RN Member Role: Primary Care Nurse Name: Flaco Clifford DO Position: [facility] Renal MD Member Role: Lifetime Consulting Physician Address: Address: [address] [place] [address] [address] [facility], [place] [address] Name: Mrailee Richardson RN Position: [facility] RN Member Role: Primary Care Nurse Name: Rufino Johnson RN Position: [facility] RN Member Role: Primary Care Nurse Name: Jovita Camargo RN Position: [facility] RN Member Role: Primary Care Nurse Name: Ju Zhu Position: [facility] RN Member Role: Primary Care Nurse Name: Ester Palomares Position: [facility] RN Member Role: Primary Care Nurse Name: Emma Colbert RN Position: [facility] RN Supv Member Role: Primary Care Nurse Name: Hallie Gambino RN Position: [facility] Oncbobo RN Member Role: Primary Care Nurse Name: Maya Ambriz RN Position: [facility] RN Member Role: Primary Care Nurse Name: Luis Burton RN Position: [facility] RN Member Role: Primary Care Nurse Name: Jaki Bishop MD Position: [facility] Primary Care Physician Member Role: PCP Address: Address: [address] [place] [address] Name: Lucian Krause RN Position: [facility] RN Member Role: Primary Care Nurse Name: Leslie Ward RN Position: [facility] RN Member Role: Primary Care Nurse Name: Jacki Gomes RN Position: [facility] RN Member Role: Primary Care Nurse Name: Ximena Saab RN Position: [facility] RN Member Role: Primary Care Nurse Name: Ivette Shankar RN Position: [facility] RN Supv Member Role: Primary Care Nurse Name: Laura Mary RN Position: [facility] SN RN Member Role: Primary Care Nurse Name: Octavio Box RN Position: [facility] RN Member Role: Primary Care Nurse Name: Caren Hernandez RN Position: [facility] RN Supv Member Role: Primary Care Nurse Name: Kinza De La Cruz RN Position: [facility] RN Member Role: Primary Care Nurse Name: Veronica Queen RN Position: [facility] RN Member Role: Primary Care Nurse Name: Perri Bryant RN Position: [facility] RN Member Role: Primary Care Nurse Name: Alba Toro RN Position: [facility] RN Member Role: Primary Care Nurse Name: Nely Wong RN Position: [facility] RN Member Role: Primary Care Nurse Name: Erica Brandon RN Position: [facility] RN Member Role: Primary Care Nurse Name: Adrianna Gonzalez RN Position: [facility] RN Member Role: Primary Care Nurse Name: Annmarie Feldman RN Position: [facility] PCO w/OE and EZ Script Member Role: Primary Care Nurse Name: Chinyere Espinoza RN Position: [facility] RN Member Role: Primary Care Nurse Name: Teresita Diallo RN Position: [facility] RN Member Role: Primary Care Nurse Name: Tennille Mcgarry RN Position: [facility] Hospital Heel Slugger Member Role: Primary Care Nurse Name: Vicky Salazar RN Position: [facility] RN Member Role: Primary Care Nurse Name: Spencer Jameson RN Position: [facility] RN Member Role: Primary Care Nurse Name: Jalen Mullins Position: [facility] RN Member Role: Primary Care Nurse Care Team Related Persons Name: MARYANNE KELLER Address: home [address] [place] [address] Name: MARYANNE KELLER Address: home [address] [address] Name: GEORGIA KELLER Address: [place] [address] Name: BALDEV POLANCO Address: [place] [address]
--- OUTSIDE RECORDS SUMMARY | 2023-02-09 22:39 | XMS_ITS | Continuity of Care Document ---
Author Name Unknown Organization [facility] Address [address] [place] [address]- Care Team Providers Care Steel Erecting Pusher Name Role Phone Jaki Bishop MD Primary Care Physician [facility]): 01/19/21 - 02/18/[address] [address] Allergies, Adverse Reactions, Alerts Substance Reaction [...] to COVID vaccine 2Admin Note: VIS GIVEN [id number] 3Admin Note: VIS GIVEN 2008- 4Admin Note: [...] 02/06/21 19:54:00 EST, Route to Pharmacy Electronically, [facility] [id number], Partial fill upon patient request if the [...] mL, 5 Refills, Maintenance, 02/06/21 19:54:00 EST, [facility] [id number], Partial fill upon patient request if the prescription is for a schedule II opioid d... Start Date: 02/06/21 Stop Date: 08/05/21 Status: Ordered loratadine 10 mg oral tablet 10 mg, 1, tablet, By Mouth, Daily, # 30 tablet, Refills 0, Tot. Refills 0, Maintenance, 11/28/20 9:25:00 EDT, Route to Pharmacy Electronically, [facility], Partial fill upon patient [...] a day, # 60 tablet, 0 Refills, [facility], 167.64, cm, 11/27/20 22:30:00 EDT, Height, 98.5, kg, 10/22/20 17:50:00 EDT, Dry Weight Start Date: 01/08/21 Status: Ordered Nicoderm C-Q Clear 14 mg/24 hr transdermal film, extended release 1 patch, Topically, Daily, for 30 days, # 30 patch, 0 Refills, Acute 03/18/21 13:06:00 EST, 02/16/21 13:06:00 EST, Patch, [facility], Partial fill upon patient request if the prescription is for a schedule II opioid drug., 166.6, cm, ... Start Date: 02/16/21 Stop Date: 03/18/21 Status: Ordered Nicotine 2 mg gum = 2 mg, Chew, Every 2 hours, PRN Other, for 6 week(s), Nicotine Cravings, # 40 each, 1 Refills, Acute 05/11/21 13:06:00 EST, 02/16/21 13:06:00 EST, Gum, [facility], Partial fill upon patient [...] 0 Refills, Maintenance,02/06/21 19:56:00 EST, CR Capsule, [place], [place] - [id number], Partial fill upon patient request if the [...] 0 Refills, Maintenance, 11/28/20 9:27:00 EDT, Nasal [place], [facility], Partial fill upon patient [...] 5 Refills, Maintenance, 02/06/21 19:56:00 EST, Tablet, [place], [place] - [id number], Partial fill upon patient request if the [...] Active H/O tubal ligation(Confirmed) Active 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
--- OUTSIDE RECORDS SUMMARY | 2023-02-09 22:39 | XMS_ITS | Continuity of Care Document ---
Author Name Unknown Organization [facility] Address [address] [place] [address]- Care Team Providers Care Geothermal Operations Manager Name Role Phone Jaki Bishop MD Primary Care Physician [facility] Date[facility]): 07/09/20 - 08/08/[address] [address]- Allergies, Adverse Reactions, Alerts Substance Reaction Severity [...] Given Permanently Refused 1Admin Note: VIS GIVEN [id number] 2Admin Note: VIS GIVEN 2008-12 3Admin Note: vis 4Admin Note: vis 02/06/08 Medications acetaminophen 325 mg oral tablet 1, tablet, By Mouth, 4 times a day, PRN, not to exceed 4 TABLETS PER DAY. Not to exceed 2000 mg/day. PRN Pain, # 60 tablet, Refills 0, Tot. Refills 0, Maintenance, NEEDED, 07/22/20 10:39:00 EDT, Route to Pharmacy Electronically, [facility] -... Start Date: 07/22/20 Status: Ordered [...] 0 Refills, Maintenance, 04/16/20 11:06:00 EST, Tablet, [facility] [id number], Partial fill upon patient request if the prescription is for a schedule II opioid drug., 168,... Start Date: 04/16/20 Status: Ordered clozapine 50 mg oral tablet 3 tablet = 150 mg, By Mouth, Daily at bedtime, # 90 tablet, 0 Refills, Maintenance, 04/16/20 11:06:00 EST, Tablet, [facility] [id number], Partial fill upon patient request ifthe prescription is for a schedule II opioid drug.,... Start Date: 04/16/20 Status: Ordered Comfort EZ Pen [place] 31 gauge x 5/16 Comfort EZ Pen [place] 31 gauge x 5/16 , See Instructions, [...] 05/26/20 14:41:00 EST, Route to Pharmacy Electronically, [facility] [id number], Partial fill upon patient request if the prescr... Start Date: 05/26/20 Stop Date: 11/22/20 Status: Ordered docusate sodium 100 mg oral capsule = 100 mg, By Mouth, 2 times a day, PRN Constipation., # 60 capsule, 5 Refills, Maintenance, 07/21/20 10:54:00 EDT, Capsule, [facility] [id number], Partial fill upon patient request if the [...] Maintenance,05/28/20 13:46:00 EST, Route to Pharmacy Electronically, [facility] [id number], Partial fill upon patient request if the [...] K86.1, K74.6, E11.65. Fax to Anna ( [facility], #[phone]), 06/06/20 19... Start Date: 06/06/20 Status: Ordered [...] mL, 1 Refills, Maintenance, 04/16/20 11:07:00 EST, [facility] [id number],... Start Date: 04/16/20 Status: Ordered lactulose 10 gm/15 ml oral syrup 30 mL, By Mouth, 2 times a day, # 581 mL, 3 Refills, Maintenance, 06/27/20 11:11:00 EDT, [facility] [id number], 10, 30 mL By Mouth 2 times [...] 3 Refills, Maintenance, 07/29/20 10:17:00 EDT, Solution, [facility] [place] - [id number], 168, cm, 04/16/20 8:30:00 EST, Height, 98.7, kg, 2... Start Date: 07/29/20 Status: Ordered loratadine 10 mg oral tablet See Instructions, TAKE ONE TABLET BY MOUTH DAILY, # 30 tablet, Refills 5, Tot. Refills 5, 05/01/20 8:18:00 EST, Instructions Replace Required Details, Route to Pharmacy Electronically, [facility] [place] - [id number], 168, cm, 04/16/20... Start Date: 05/01/20 Status: Ordered multivitamin Multiple Vitamins oral tablet 1 tablet, By Mouth, Daily, # 90 tablet, 1 Refills, Maintenance, 05/26/20 13:28:00 EST, Tablet, [facility] [place] - [id number], 1 tablet By Mouth Daily, 168, cm, [...] 0 Refills, Maintenance, 04/16/20 11:08:00 EST, Gum, [place], [place] - [id number], Partial fill upon patient request if the [...] 5 Refills, Maintenance, 07/14/20 16:30:00 EDT, Tablet, [place], [place] - [id number], this is an increased, 1 tablet By Mouth 2 times a day,x30 days, 168, cm, 04/16/20 8:30:00 EST, Heigh... Start Date: 07/14/20 Stop Date: 01/10/21 Status: Ordered torsemide 20 mg oral tablet 1 tablet = 20 mg, By Mouth, Daily, # 30 tablet, 1 Refills, Maintenance, 04/16/20 11:09:00 EST, Tablet, [facility] [id number], Partial fill upon patient request if the prescription is for a schedule II opioid drug., 168, cm, 01... 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
--- OUTSIDE RECORDS SUMMARY | 2023-02-09 22:39 | XMS_ITS | Continuity of Care Document ---
Author Name Unknown Organization [facility] Address [address] [place] [address]- Care Team Providers Care Program Clerk Name Role Phone Jaki Bishop MD Primary Care Physician [facility] 06[facility]17[facility]20 - 07/17/[address] [address]- Allergies, Adverse Reactions, Alerts Substance Reaction Severity [...] Given Permanently Refused 1Admin Note: VIS GIVEN [id number] 2Admin Note: VIS GIVEN 2008-12 3Admin Note: vis 4Admin Note: vis 02/06/08 Medications acetaminophen 325 mg oral tablet 1, tablet, By Mouth, 4 times a day, PRN, not to exceed 4 TABLETS PER DAY. Not to exceed 2000 mg/day. PRN Pain, # 60 tablet, Refills 0, Tot. Refills 0, Maintenance, NEEDED, 06/19/20 12:38:00 EDT, Route to Pharmacy Electronically, [facility] -... Start Date: 06/19/20 Status: Ordered Alcohol Wipes [...] 0 Refills, Maintenance, 04/16/20 11:06:00 EST, Tablet, [facility] [id number], Partial fill upon patient request if the prescription is for a schedule II opioid drug., 168,... Start Date: 04/16/20 Status: Ordered clozapine 50 mg oral tablet 3 tablet = 150 mg, By Mouth, Daily at bedtime, # 90 tablet, 0 Refills, Maintenance, 04/16/20 11:06:00 EST, Tablet, [facility] [id number], Partial fill upon patient request ifthe prescription is for a schedule II opioid drug.,... Start Date: 04/16/20 Status: Ordered Comfort EZ Pen [place] 31 gauge x 5/16 Comfort EZ Pen [place] 31 gauge x 5/16 , See Instructions, [...] 05/26/20 14:41:00 EST, Route to Pharmacy Electronically, [facility] [id number], Partial fill upon patient request if the prescr... Start Date: 05/26/20 Stop Date: 11/22/20 Status: Ordered docusate sodium 100 mg oral capsule = 100 mg, By Mouth, 2 times a day, PRN Constipation., # 60 capsule, 3 Refills, Maintenance, 02/29/20 15:13:00 EST, Capsule, [facility] [id number], Partial fill upon patient request if the [...] Maintenance,05/28/20 13:46:00 EST, Route to Pharmacy Electronically, [facility] [id number], Partial fill upon patient request if the presc... Start Date: 05/28/20 Status: Ordered Glucerna (Vanilla Flavor) Glucerna (Vanilla Flavor), See Instructions, # 60 each, Refills 11, Tot. Refills 11, Maintenance, Drink 1 can BID. 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 Fax to Anna ( [facility], #[phone]), 06/06/20 19... Start Date: 06/06/20 Status: Ordered [...] mL, 1 Refills, Maintenance, 04/16/20 11:07:00 EST, [place], [place] - [id number],... Start Date: 04/16/20 Status: Ordered lactulose 10 gm/15 ml oral syrup 30 mL, By Mouth, 2 times a day, # 581 mL, 3 Refills, Maintenance, 06/27/20 11:11:00 EDT, [place], [place] - [id number], 10, 30 mL By Mouth 2 times [...] Replace Required Details, Route to Pharmacy Electronically, [facility], [place] - [id number], 168, cm, 04/16/20... Start Date: 05/01/20 Status: Ordered multivitamin Multiple Vitamins oral tablet 1 tablet, By Mouth, Daily, # 90 tablet, 1 Refills, Maintenance, 05/26/20 13:28:00 EST, Tablet, [facility], [place] - [id number], 1 tablet By Mouth Daily, 168, cm, [...] 0 Refills, Maintenance, 04/16/20 11:08:00 EST, Gum, [facility], [place] - [id number], Partial fill upon patient request if the [...] 5 Refills, Maintenance, 07/14/20 16:30:00 EDT, Tablet, [place], [place] - [id number], this is an increased, 1 tablet By Mouth 2 times a day,x30 days, 168, cm, 04/16/20 8:30:00 EST, Heigh... Start Date: 07/14/20 Stop Date: 01/10/21 Status: Ordered torsemide 20 mg oral tablet 1 tablet = 20 mg, By Mouth, Daily, # 30 tablet, 1 Refills, Maintenance, 04/16/20 11:09:00 EST, Tablet, [place], [place] - [id number], Partial fill upon patient request if the prescription is for a schedule II opioid drug., 168, cm, 01... Start Date: 04/16/20 Stop Date: 04/11/21 Status: Ordered Zenpep 10,000 units-32,000 units-42,000 units oral delayed release capsule 1 capsule, By Mouth, 3 times a day, # 90 capsule, 0 Refills, Maintenance, 04/16/20 11:09:00 EST, [facility] [place], [place] - [id number], 1 capsule By Mouth 3 times a day, 168, cm, 04/16/20 8:30:00 EST, Height, 98.7, kg, 04/11/20 2:10:00 ESTMary. 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
--- OUTSIDE RECORDS SUMMARY | 2023-02-09 22:39 | XMS_ITS | Continuity of Care Document ---
Author Name Unknown Organization [facility] Address [address] [place] [address]- Care Team Providers Care Deicer Tester Name Role Phone Jaki Bishop MD Primary Care Physician [phone] [facility]counter [facility] Date(s): 10/18/22 - 11/17/[address] [address]- Attending Physician: Antonio Guido Allergies, Adverse Reactions, [...] to COVID vaccine 2Admin Note: VIS GIVEN [id number] 3Admin Note: VIS GIVEN 2008- 4Admin Note: vis 5Admin Note: vis 02/06/08 Medications albuterol 90 mcg/inh inhalation powder 2 puffs, Inhalation, Every 4 hours, PRN as needed, PRN Wheezing, # 1 each, 1 Refills, Maintenance, 06/28/22 14:49:00 EDT, Powder, [facility] [id number], Partial fill upon patient request if the [...] 07/16/22 16:04:00 EDT, Route to Pharmacy Electronically, [facility] [id number], Partialfill upon patient request if the prescription is fo... Start Date: 07/16/22 Status: Ordered benztropine 1 mg oral tablet 0.5 mg, 0.5, tablet, By Mouth, 2 times a day, # 30 tablet, Refills 3, Tot. Refills 3, Maintenance, 09/17/22 1:51:00 EDT, Route to Pharmacy Electronically, [facility] [id number], Partial fill upon patient request if the [...] 10/18/22 11:46:00 EDT, Route to Pharmacy Electronically, [facility] [id number], Partial fill upon patient request if the prescr... Start Date: 10/18/22 Status: Ordered cloNIDine 0.1 mg oral tablet 0.1 mg, 1, tablet, By Mouth, Daily at bedtime, # 30 tablet, Refills 2, Tot. Refills 2, Maintenance,10/18/22 11:46:00 EDT, Route to Pharmacy Electronically, [facility] [id number], Partial fill upon patient request if the presc... Start Date: 10/18/22 Status: Ordered Creon 12,000 units oral delayed release capsule 1 capsule, By Mouth, 3 times a day, # 90 capsule, 3 Refills, Maintenance, 09/17/22 1:49:00 EDT, EC Capsule, [facility] [id number], Partial fill upon patient request if the [...] 09/17/22 1:48:00 EDT, Route to Pharmacy Electronically, [facility] [id number], 160, cm, 07/26/22 12:51:00 EDT, Height, 89.2, [...] 10/18/22 11:46:00 EDT, Route to Pharmacy Electronically, [facility] [id number], Partial fill upon patient request if the [...] mL, 5 Refills, Maintenance, 09/17/22 1:49:00 EDT, [facility] [id number], 15, 30 mL By Mouth 2 times a day, 160, cm, 07/26/22 12:51:00 EDT, Height, 89.2, kg, 07/21/22 3:29:00 EDT, Dry Weight Start Date: 09/17/22 Status: Ordered Lantus Solostar Pen 100 units/mL subcutaneous solution = 6 units, Subcutaneous Injection, Daily in AM, # 10 mL, 2 Refills, Maintenance, 04/29/22 14:34:00 EST, Solution, [facility] [id number], Partial fill upon patient request if the prescription is for a schedule II opioid drug.,... Start Date: 04/29/22 Status: Ordered multivitamin Multiple Vitamins oral tablet 1 tablet, By Mouth, Daily, # 90 tablet, 1 Refills, Maintenance, 10/22/22 19:32:00 EDT, Tablet, [facility] [id number], Partial fill upon patient request if the prescription isfor a schedule II opioid drug., 1 tablet By Mouth D... Start Date: 10/22/22 Status: Ordered Nicotine 2 mg gum 1 each = 2 mg, Chew, Every 2 hours, PRN for smoking cessation, for 4 week(s), # 160 each, 1 Refills, Acute 12/13/22 11:41:00 EDT, 10/18/22 11:41:00 EDT, Gum, [facility] [id number], Partial fill upon patient request if the pres... Start Date: 10/18/22 Stop Date: 12/13/22 Status: Ordered pantoprazole 40 mg oral delayed release tablet 1 tablet, By Mouth, Daily, # 30 tablet, 2 Refills, Maintenance, 11/10/22 11:02:00 EDT, 165.09, cm, 10/18/22 11:23:00 EDT, Height, 83.7, kg, 10/05/22 21:20:00 EDT, Dry Weight Start Date: 11/10/22 Status: Ordered Pen [place], 31 G x 5 mm BD Ultra [...] 10/12/22 10:21:00 EDT, Route to Pharmacy Electronically, [place], [place] - [id number], Partial fill upon patient request if the prescription... Start Date: 10/12/22 Stop Date: 11/11/22 Status: Ordered risperiDONE 3 mg oral tablet 3 mg, 1, tablet, By Mouth, Daily at bedtime, # 30 tablet, Refills 0, Tot. Refills 0, Maintenance, 10/12/22 10:21:00 EDT, Route to Pharmacy Electronically, [facility] [id number], Partial fill upon patient request if the [...] 5 Refills, Maintenance, 09/17/22 1:52:00 EDT, Inhaler, [facility] [id number], Partial fill upon patient request if the prescription is for a schedule II opioid drug., 160, cm, 07/26/22 12:... Start Date: 09/17/22 Stop Date: 03/16/23 Status: Ordered traZODone 50 mg oral tablet 50 mg, 1, tablet, By Mouth, Daily at bedtime, # 30 tablet, Refills 2, Tot. Refills 2, Maintenance, 09/17/22 1:47:00 EDT, Route to Pharmacy Electronically, [place], [place] - [id number], Partial fill upon patient request if the prescri... Start Date: 09/17/22 Stop Date: 12/16/22 Status: Ordered Walker See Instructions, # 1 [...] Yes; Type: Cigarettes entered on: 09/29/22 Sex Hospital Consult note * Event Display: Inpatient Consult Note, Non-BH Authored Date: Hospital Progress note * Miguel Blackwell MD: PERFORM, SIGN, VERIFY Event Display: Progress Note Hospital Authored Date: [id number] Patient: CARYL AVILA Age: 45 years Sex: Female : 1965 Associated Diagnoses: None Author: Miguel Blackwell MD Attachments: None Interval History Chart reviewed and case discussed with Dr. Briceño. Dr. Granados's consult note reviewed. Context of hepatosplenomegaly, biposlar/ schizoprenic disorder, and hemolytic anemia: Though most likely she has fatty liver disease secondary to morbid obesity, Kamron's disease should be ruled out. She presently denies vomiting since admission, and has been picking at her food. She denies pruritus, dyspnea, chest pain; she has had chronic right upper quadrant/epigastric pain., and has lost moretha 150 pounds over the past year or so. Denies hematochezia or melena; has had recent contipation.There has been the question of mild hematemesis prior to admission. She has had chronic, mild transaminase elevations, and a markedly elevated alk phos, though AMA hasbeen negative and ASMA has only been weekly positive. hepatitis serologies have been negative. Physical Examination Alert, oriented, but becomes easily distracted. Seems to lack insight. Afebrile, pulst 120, respirations 12 to 14, BP 121 /85. No JVD. Lungs clear; heart RRR 120 without murmur. Abdomen soft; liver span 14 cm with very tender edge; hepatic palpation reprodudes her pain. Cannot palpate spleen. No ascites or edema. Impression and Plan Previous intractable vomiting: ?related to hepatic pain? ?psychogenic? ?other cause? Profound anorexia and weight loss: ?related to above? Hemolytic anemia, psychiatric disorder and abnormal LFT's with hepato- splenomegaly: the latter is most likely secondary to fatty liver, but rule out Kamron's disease Suggest: Upper endoscopy tomorrow. she understand procedure, including risks of bleeding/aspiration/ perforation and reaction to sedation. Consent form reviewed with her in detail. Liver biopsy under ultrasound guidance: She understands procedure modality, and risks of bleeding with need for transfusion/surgery, infection, excess pain, and perforated viscous with need for surgery. Obtain ceruloplasmin and iron/IBC/ferritin (hemochromatosis). Note * Mera Leo RN: VERIFY, PERFORM, SIGN Event Display: Case Management Discharge Plan Authored Date: [id number] Patient: CARYL AVILA Age: 53 years Sex: Female : 1965 Associated Diagnoses: None Author: Mera Leo RN Unable to reach pt for follow up call. Pt. transferred to manager terminal care facility. * Isaak Henry: PERFORM Event Display: Discharge/Transfer Note Hospital Authored Date: [id number] * Mera Packer: PERFORM, SIGN, VERIFY Event Display: Patient Education/Instruction Authored Date: [id number] [facility] Clinical Summary Person Information Name CARYL AVILA Age 45 Years 1965 12:00 AM PCP Rai Gonzalez MD PCP Reason for Visit: Allergy Info: Zyprexa Vital Signs Height Weight BMI Blood Pressure / Temperature Pulse Rate Respiratory Rate 02 Sat Mode of Delivery / Medication Information Atenolol (atenolol 50 mg oral tablet) 1 tablet, Oral, Tomorrow, 30 tablet, Refills: 0 Benztropine (Cogentin Tablet) 1 mg, Oral, twice a day Haloperidol (Haldol Tablet) 10 mg, Oral, Daily at Bedtime, Rosita Mathis Hydrocortisone/Neomycin/Polymyxin B Otic (Cortisporin Otic 1%-0.35%-61823 u/ml solution) , See Instructions, 2 drops to both ears, 4 times a day for 7 days, 30 mL, Refills: 0 Risperidone (Risperdal 1 mg oral tablet) 1 tablet, Oral, Daily at Bedtime, 60 tablet, Refills: 0 Problem List Date Problem 11/15/06 Anemia 11/15/06 Chronic renal impairment 11/15/06 Hypertension 09/04/07 Dyshidrotic eczema 01/09/08 cervical spondylosis/ DJD 01/09/08 Myofascial pain syndrome 09/17/09 Morbid Obesity If the following labs have been performed in the last year, the most recent result is displayed below. Diagnostic Results Lab Result Value Date Lead Hemoglobin A1C LDL HDL Triglycerides 151 10/01/10 Total Cholesterol Disclaimer: The information provided is of a general nature and is intended to be used in conjunction with the recommendations and advice of your health care practitioner. Every effort has been made to ensure that the information provided is accurate and complete at the time it is provided to you however, as your needs change, or, as new information becomes available, different or additional instructions may be required. If you have questions, please consult with your primary care provider or pharmacist, as appropriate. This information is not intended to serve as substitution for assessment and evaluation by a qualified health care provider. If you do not have a primary care provider, you may find a [facility] provider by calling [facility] at [phone]. Patient Education Information Follow-up Details: Patient Education Material: Patient Care team information Care Team Personnel Name: Lawrence Hendrix Position: [facility] RN Member Role: Primary Care Nurse Name: Nazia Norris RN Position: [facility] Outreach Member Role: Primary Care Nurse Name: Rufino Lloyd RN Position: [facility] RN Member Role: Primary Care Nurse Name: Cristina Carpenter RN Position: [facility] RN Member Role: Primary Care Nurse Name: Rosette Noriega RN Position: [facility] SN RN Member Role: Primary Care Nurse Name: Mary Hidalgo RN Position: [facility] AMB Nurse Member Role: Primary Care Nurse Name: Sissy Duran RN Position: [facility] AMB Nurse Member Role: Primary Care Nurse Name: oRhit Zavaleta RN Position: [facility] RN Member Role: Primary Care Nurse Name: Erlinda Hartman NP Position: [facility] Associate Professional Member Role: Primary Care Nurse Address: Address: [address] [place] [id number] Name: Shante Solis RN Position: [facility] RN Member Role: Primary Care Nurse Name: Joshua Prakash RN Position: [facility] RN Member Role: Primary Care Nurse Name: Bettie Vanegas RN Position: [facility] SN RN Member Role: Primary Care Nurse Name: Jay Marroquin RN Position: [facility] RN Member Role: Primary Care Nurse Name: Adrianna Church RN Position: [facility] RN Member Role: Primary Care Nurse Name: Sue Purdy RN Position: [facility] RN Member Role: Primary Care Nurse Name: Hector Perez RN Position: [facility] RN Member Role: Primary Care Nurse Name: Aleena Vizcaino RN Position: [facility] RN Member Role: Primary Care Nurse Name: Kacey Wilhelm RN Position: [facility] RN Member Role: Primary Care Nurse Name: Leslie Malloy RN Position: [facility] RN Member Role: Primary Care Nurse Name: Yesenia Hu LPN Position: [facility] RN Member Role: Primary Care Nurse Name: Joaquina Herrera RN Position: [facility] RN Member Role: Primary Care Nurse Name: Diego Bell RN Position: [facility] RN Member Role: Primary Care Nurse Name: Ese Grey Position: [facility] RN Member Role: Primary Care Nurse Name: Chela Najera RN Position: [facility] ED RN W/OE and Tasks Member Role: Primary Care Nurse Name: Tootie Gonzalez RN Position: [facility] RN Member Role: Primary Care Nurse Name: Nancy Monte RN Position: [facility] RN Member Role: Primary Care Nurse Name: Marilee Starkey Position: [facility] RN Member Role: Primary Care Nurse Name: Silvina Dodd RN Position: [facility] RN Member Role: Primary Care Nurse Name: Flaco Clifford DO Position: [facility] Renal MD Member Role: Lifetime Consulting Physician Address: Address: [address] [place] [address] [facility] [place], [place] [address] Name: Marilee Richardson RN Position: [facility] RN Member Role: Primary Care Nurse Name: Rufino Johnson RN Position: [facility] RN Member Role: Primary Care Nurse Name: Judson Larry Position: [facility] RN Member Role: Primary Care Nurse Name: Jovita Camargo RN Position: [facility] RN Member Role: Primary Care Nurse Name: Bruna Pizarro Position: [facility] RN Member Role: Primary Care Nurse Name: Ju Zhu Position: [facility] RN Member Role: Primary Care Nurse Name: Ester Palomares Position: [facility] RN Member Role: Primary Care Nurse Name: Emma Colbert RN Position: [facility] RN Member Role: Primary Care Nurse Name: Hallie Gambino RN Position: [facility] Onco RN Member Role: Primary Care Nurse Name: Maya Ambriz RN Position: [facility] RN Member Role: Primary Care Nurse Name: Bhavna Rendon LPN Position: [facility] RN Member Role: Primary Care Nurse Name: Luis Burton RN Position: [facility] RN Member Role: Primary Care Nurse Name: Jaki Bishop MD Position: [facility] Physician - Primary Care Member Role: PCP Address: Address: [address] [place] [address] Name: Lucian Krause RN Position: [facility] RN Member Role: Primary Care Nurse Name: Misty Tariq Position: [facility] RN Member Role: Primary Care Nurse Name: Isaiah Combs RN Position: [facility] RN Member Role: Primary Care Nurse Name: Leslie Ward RN Position: [facility] RN Member Role: Primary Care Nurse Name: Jacki Gomes RN Position: [facility] RN Member Role: Primary Care Nurse Name: Deerk Smith RN Position: [facility] RN Member Role: Primary Care Nurse Name: Perri Smith RN Position: [facility] RN Member Role: Primary Care Nurse Name: Mar Brothers RN Position: [facility] RN Member Role: Primary Care Nurse Name: Ivette Shankar RN Position: [facility] RN Member Role: Primary Care Nurse Name: Laura Mary RN Position: [facility] SN RN Member Role: Primary Care Nurse Name: Mary Guillen RN Position: [facility] RN Member Role: Primary Care Nurse Name: Octavio Box RN Position: [facility] RN Member Role: Primary Care Nurse Name: Nazia Tapia RN Position: [facility] RN Member Role: Primary Care Nurse Name: Pat Jackson RN Position: [facility] RN Member Role: Primary Care Nurse Name: Caren Hernandez RN Position: [facility] RN Jaun Member Role: Primary Care Nurse Name: Perri Bryant RN Position: [facility] RN Member Role: Primary Care Nurse Name: Nely Wong RN Position: [facility] RN Member Role: Primary Care Nurse Name: Erica Brandon RN Position: [facility] RN Member Role: Primary Care Nurse Name: Adrianna Gonzalez RN Position: [facility] RN Member Role: Primary Care Nurse Name: Annmarie Feldman RN Position: [facility] PCO w/OE and EZ Script Member Role: Primary Care Nurse Name: Chinyere Espinoza RN Position: [facility] RN Member Role: Primary Care Nurse Name: Imani RAMIREZ, Teresita Reyes Position: [facility] RN Member Role: Primary Care Nurse Name: Tennille Mcgarry RN Position: [facility] Hospital [place] Member Role: Primary Care Nurse Name: Vicky Salazar RN Position: [facility] RN Member Role: Primary Care Nurse Name: Spencer Jameson RN Position: [facility] RN Member Role: Primary Care Nurse Name: Jalen Mullins Position: [facility] RN Member Role: Primary Care Nurse Care Team Related Persons Name: MARYANNE KELLER Address: [address] [place] [address] Name: MARYANNE KELLER Address: home [address] [place] [address] Name: MARYANNE KELLER Address: [address] [place] [address] Name: GEORGIA KELLER Address: [place] [address] Name: BALDEV POLANCO Address: [place] [address]
--- OUTSIDE RECORDS SUMMARY | 2023-02-09 22:39 | XMS_ITS | Continuity of Care Document ---
Author Name Unknown Organization [facility] Address [address] [place] [address]- Care Team Providers Care Medical Insurance Clerk Name Role Phone Jaki Bishop MD Primary Care Physician [facility]counter [facility] Date(s): 05/28/19 - 07/29/[address] [address]- [facility] Attending Physician: Harmony Ryan MD Admitting Physician: Jaki Bishop MD Allergies, [...] Given Patient Refuses 1Admin Note: VIS GIVEN [id number] 2Admin Note: VIS GIVEN 2008-12 3Admin Note: vis 4Admin Note: vis 02/06/08 Medications acetaminophen 325 mg oral tablet 325 mg, 1, tablet, By Mouth, 4 times a day, PRN, No more than 4 tablets per day, # 60 tablet, Refills 11, Tot. Refills 11, Acute 10/05/19 12:00:00 EDT, for pain, 10/03/18 14:57:21 EDT, Route to Pharmacy Electronically, [id number]... Start Date: 10/03/18 Stop Date: 10/05/19 Status: [...] 05/02/19 13:58:00 EST, Route to Pharmacy Electronically, [facility] [place], [place] -, 166, cm, 04/30/19 10:41:00 EST, Height, 91.8, kg, 02/23/19 17... Start Date: 05/02/19 Status: Ordered docusate sodium 100 mg oral capsule 100 mg, 1, capsule, By Mouth, 2 times a day, # 60 capsule, Refills 11, Tot. Refills 11, Maintenance, 02/21/19 14:45:44 EST, Route to Pharmacy Electronically, [id number], [facility] [place], [place] -, 168, cm, 02/14/19... Start Date: [...] Maintenance,03/27/19 16:10:00 EST, Route to Pharmacy Electronically, [facility] #[id number], 166, cm, 03/27/19 15:26:00 EST, Height, 91.8, kg, 02/23/19 17:03:... Start Date: 03/27/19 Stop Date: 10/23/19 Status: Ordered Glucerna (Vanilla Flavor) Glucerna (Vanilla Flavor), See Instructions, # 60 each, Refills 11, Tot. Refills 11, Maintenance, Drink 1 can BID. 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 Fax to [facility] ( [facility], #[phone]), 07/26/19 15... Start Date: 07/26/19 Status: Ordered Humalog Kwik Pen 100 units/mL subcutaneous injection See Instructions, 4 Units for bood sugar above 120 mg/dl and then add 2 Units for every 50 mg/dl rise above 120. Three times a day before meals., # 15 mL, 6 Refills, Maintenance, 05/04/19 12:52:00 EST, [place], [place] - , Humalog ins... Start Date: 05/04/19 Status: Ordered Lantus Solostar Pen 100 units/mL subcutaneous solution See Instructions, This is an increase in dose. 28u QAM & 44 units QHS. Subcutaneous Injection Daily 30 days, # 5 each, 6 Refills, Maintenance, 07/12/19 9:59:00 EDT, [place], [place] -, 166, cm, 05/28/19 11:08:00 EDT, Height, 91.8, kg,... Start Date: 07/12/19 Status: Ordered MiraLax oral powder for reconstitution = 17 Gm, By Mouth, 2 times a day, PRN Other, dissolve in water before taking. goal 2-3 bowel movements daily, # 527 Gm, 2 Refills, Maintenance, 07/26/19 8:25:00 EDT, REC Powder, [place], [place] -, 17 Gm By Mouth 2 [...] TABLET BY MOUTH DAILY FOR STOMACH ACID, [facility] #[id number] Start Date: 11/28/18 Status: Ordered Pen [place], 31 G x 8 mm BD Ultra [...] Attn Dr. Mariano Andrade, Outpatient Psychiatry, at [phone]., See Instructions, # 1 application, Refills 0, [...] 04/20/19 10:38:00 EST, Route to Pharmacy Electronically, [id number], 166, cm, 04/20/19 10:17:00 EST, Height, 91.8, kg, 02/23/19 17:03:00 EST, . Start Date: 04/20/19 Status: Ordered torsemide 20 mg oral tablet 2 tablet = 40 mg, By Mouth, Daily, # 180 tablet, 11 Refills, Maintenance, 04/20/19 10:38:00 EST, Tablet, [facility] #[id number], Replaces lower dose, 166, cm, 04/20/19 10:17:00 [...] Active H/O tubal ligation(Confirmed) Active BHN/ CP Nuclear Test Technician/Janet salvador [facility] [phone](Confirmed) Active History of cholecystectomy(Confirmed) Active Hypertension(Confirmed) Active [...]
--- OUTSIDE RECORDS SUMMARY | 2023-02-09 22:39 | XMS_ITS | Continuity of Care Document ---
Author Name Unknown Organization [facility] Address [address] [place] [address]- Care Team Providers Care Postbed Stitcher Name Role Phone aDrio HAYDEN, Jaki Primary Care Physician [phone] Encounter [facility] Date(s): 12/10/22 - 01/09/[address] [address]- Allergies, Adverse Reactions, Alerts Substance Reaction Severity [...] to COVID vaccine 2Admin Note: VIS GIVEN [id number] 3Admin Note: VIS GIVEN 2008- 4Admin Note: vis 5Admin Note: vis 02/06/08 Medications albuterol 90 mcg/inh inhalation powder 2 puffs, Inhalation, Every 4 hours, PRN as needed, PRN Wheezing, # 1 each, 1 Refills, Maintenance, 06/28/22 14:49:00 EDT, Powder, [facility] [id number], Partial fill upon patient request if the [...] 07/16/22 16:04:00 EDT, Route to Pharmacy Electronically, [facility] [id number], Partialfill upon patient request if the prescription is fo... Start Date: 07/16/22 Status: Ordered benztropine 1 mg oral tablet 0.5 mg, 0.5, tablet, By Mouth, 2 times a day, # 30 tablet, Refills 3, Tot. Refills 3, Maintenance, 09/17/22 1:51:00 EDT, Route to Pharmacy Electronically, [facility] [id number], Partial fill upon patient request if the [...] 10/18/22 11:46:00 EDT, Route to Pharmacy Electronically, [facility] [id number], Partial fill upon patient request if the prescr... Start Date: 10/18/22 Status: Ordered cloNIDine 0.1 mg oral tablet 0.1 mg, 1, tablet, By Mouth, Daily at bedtime, # 30 tablet, Refills 2, Tot. Refills 2, Maintenance,12/09/22 19:15:00 EDT, Route to Pharmacy Electronically, [facility] [id number], Partial fill upon patient request if the presc... Start Date: 12/09/22 Status: Ordered Creon 12,000 units oral delayed release capsule 1 capsule, By Mouth, 3 times a day, # 90 capsule, 3 Refills, Maintenance, 09/17/22 1:49:00 EDT, EC Capsule, [facility] [id number], Partial fill upon patient request if the [...] 09/17/22 1:48:00 EDT, Route to Pharmacy Electronically, [facility] [id number], 160, cm, 07/26/22 12:51:00 EDT, Height, 89.2, [...] 10/18/22 11:46:00 EDT, Route to Pharmacy Electronically, [facility] [id number], Partial fill upon patient request if the [...] mL, 5 Refills, Maintenance, 12/09/22 19:15:00 EDT, [facility] [id number], 15, 30 mL By Mouth 2 times a day, 165.09, cm, 10/18/22 11:23:00 EDT, Height, 83.7, kg, 10/05/22 21:20:00 EDT, Start Date: 12/09/22 Status: Ordered Lantus Solostar Pen 100 units/mL subcutaneous solution = 6 units, Subcutaneous Injection, Daily in AM, # 10 mL, 2 Refills, Maintenance, 12/09/22 19:15:00 EDT, Solution, [facility] [id number], Partial fill upon patient request if the prescription is for a schedule II opioid drug.,... Start Date: 12/09/22 Status: Ordered magnesium oxide 400 mg oral tablet 1 tablet = 400 mg, By Mouth, Daily, for 14 days, # 14 tablet, 0 Refills, Acute 01/10/23 7:43:00 EDT, 12/27/22 7:43:00 EDT, Tablet, [facility] [id number], Partial fill upon patient request if the prescription is for a schedule... Start Date: 12/27/22 Stop Date: 01/10/23 Status: Ordered multivitamin Multiple Vitamins oral tablet 1 tablet, By Mouth, Daily, # 90 tablet, 1 Refills, Maintenance, 10/22/22 19:32:00 EDT, Tablet, [facility] [id number], Partial fill upon patient request if the prescription isfor a schedule II opioid drug., 1 tablet By Mouth D... Start Date: 10/22/22 Status: Ordered Nicotine 2 mg gum 1 each = 2 mg, Chew, Every 2 hours, PRN for smoking cessation, for 4 week(s), # 160 each, 1 Refills, Acute 02/03/23 19:15:00 EST, 12/09/22 19:15:00 EDT, Gum, [facility] [id number], Partial fill upon patient request if the pres... Start Date: 12/09/22 Stop Date: 02/03/23 Status: Ordered pantoprazole 40 mg oral delayed release tablet 1 tablet, By Mouth, Daily, # 30 tablet, 2 Refills, Maintenance, 11/10/22 11:02:00 EDT, 165.09, cm, 10/18/22 11:23:00 EDT, Height, 83.7, kg, 10/05/22 21:20:00 EDT, Dry Weight Start Date: 11/10/22 Status: Ordered Pen Devine, 31 G x 5 mm BD Ultra [...] 10/12/22 10:21:00 EDT, Route to Pharmacy Electronically, [facility] [id number], Partial fill upon patient request if the prescription... Start Date: 10/12/22 Stop Date: 11/11/22 Status: Ordered risperiDONE 3 mg oral tablet 3 mg, 1, tablet, By Mouth, Daily at bedtime, # 30 tablet, Refills 0, Tot. Refills 0, Maintenance, 10/12/22 10:21:00 EDT, Route to Pharmacy Electronically, [facility] [id number], Partial fill upon patient request if the [...] 5 Refills, Maintenance, 09/17/22 1:52:00 EDT, [facility] [place] [id number], Partial fill upon patient request if the prescription is for a schedule II opioid drug., 160, cm, 07/26/22 12:... Start Date: 09/17/22 Stop Date: 03/16/23 Status: Ordered traZODone 50 mg oral tablet 50 mg, 1, tablet, By Mouth, Daily at bedtime, # 30 tablet, Refills 2, Tot. Refills 2, Maintenance, 12/09/22 19:15:00 EDT, Route to Pharmacy Electronically, [place], [place] - [id number], Partial fill upon patient request if the [...] Care Team Personnel Name: Lawrence Hendrix Position: [facility] RN Member Role: Primary Care Nurse Name: Nazia Norris RN Position: [facility] Outreach Member Role: Primary Care Nurse Name: Rufino Lloyd RN Position: [facility] RN Member Role: Primary Care Nurse Name: Cristina Carpenter RN Position: [facility] RN Member Role: Primary Care Nurse Name: Rosette Noriega RN Position: [facility] SN RN Member Role: Primary Care Nurse Name: Mary Hidalgo RN Position: [facility] AMB Nurse Member Role: Primary Care Nurse Name: Sissy Duran RN Position: [facility] AMB Nurse Member Role: Primary Care Nurse Name: Rohit Zavaleta RN Position: [facility] RN Member Role: Primary Care Nurse Name: Erlinda Hartman NP Position: [facility] Associate Professional Member Role: Primary Care Nurse Address: Address: [address] [place] [address] Name: Shante Solis RN Position: [facility] RN Member Role: Primary Care Nurse Name: Joshua Prakash RN Position: [facility] RN Member Role: Primary Care Nurse Name: Bettie Vanegas RN Position: [facility] SN RN Member Role: Primary Care Nurse Name: Jay Marroquin RN Position: [facility] RN Member Role: Primary Care Nurse Name: Adrianna Church RN Position: [facility] RN Member Role: Primary Care Nurse Name: Sue Purdy RN Position: [facility] RN Member Role: Primary Care Nurse Name: Hector Perez RN Position: [facility] RN Member Role: Primary Care Nurse Name: Aleena Vizcaino RN Position: [facility] RN Member Role: Primary Care Nurse Name: Kacey Wilhelm RN Position: [facility] RN Member Role: Primary Care Nurse Name: Leslie Malloy RN Position: [facility] RN Member Role: Primary Care Nurse Name: Yesenia Hu LPN Position: [facility] RN Member Role: Primary Care Nurse Name: Joaquina Herrera RN Position: [facility] RN Member Role: Primary Care Nurse Name: Diego Bell RN Position: [facility] RN Member Role: Primary Care Nurse Name: Ese Grey Position: [facility] RN Member Role: Primary Care Nurse Name: Chela Najera RN Position: [facility] RN Member Role: Primary Care Nurse Name: Tootie Gonzalez RN Position: [facility] RN Member Role: Primary Care Nurse Name: Nancy Monte RN Position: [facility] RN Member Role: Primary Care Nurse Name: Marilee Starkey Position: [facility] RN Member Role: Primary Care Nurse Name: Silvina Dodd RN Position: [facility] RN Member Role: Primary Care Nurse Name: Flaco Clifford DO Position: [facility] Renal MD Member Role: Lifetime Consulting Physician Address: Address: [address] [place] [address] [facility] [place], [place] [address] Name: Marilee Richadrson RN Position: [facility] RN Member Role: Primary Care Nurse Name: Rufino Johnson RN Position: [facility] RN Member Role: Primary Care Nurse Name: Judson Larry Position: [facility] RN Member Role: Primary Care Nurse Name: Jovita Camargo RN Position: [facility] RN Member Role: Primary Care Nurse Name: Bruna Pizaror Position: [facility] RN Member Role: Primary Care Nurse Name: Ju Zhu Position: [facility] RN Member Role: Primary Care Nurse Name: Ester Palomares Position: [facility] RN Member Role: Primary Care Nurse Name: Emma Colbert RN Position: [facility] RN Member Role: Primary Care Nurse Name: Hallie Gambino RN Position: [facility] Onco RN Member Role: Primary Care Nurse Name: Maya Ambriz RN Position: [facility] RN Member Role: Primary Care Nurse Name: Bhavna Rendon LPN Position: [facility] RN Member Role: Primary Care Nurse Name: Luis Burton RN Position: [facility] RN Member Role: Primary Care Nurse Name: Jaki Bishop MD Position: [facility] Physician - Primary Care Member Role: PCP Address: Address: [address] [place] [address]- Name: Lucian Krause RN Position: [facility] RN Member Role: Primary Care Nurse Name: Misty Tariq Position: [facility] RN Member Role: Primary Care Nurse Name: Isaiah Combs RN Position: [facility] RN Member Role: Primary Care Nurse Name: Leslie Ward RN Position: [facility] RN Member Role: Primary Care Nurse Name: Jacki Gomes RN Position: [facility] RN Member Role: Primary Care Nurse Name: Derek Smith RN Position: [facility] RN Member Role: Primary Care Nurse Name: Perri Smith RN Position: [facility] RN Member Role: Primary Care Nurse Name: Mar Brothers RN Position: [facility] RN Member Role: Primary Care Nurse Name: Ivette Shankar RN Position: [facility] RN Member Role: Primary Care Nurse Name: Laura Mary RN Position: [facility] SN RN Member Role: Primary Care Nurse Name: Mary Guillen RN Position: [facility] RN Member Role: Primary Care Nurse Name: Octavio Box RN Position: [facility] RN Member Role: Primary Care Nurse Name: Nazia Tapia RN Position: [facility] RN Member Role: Primary Care Nurse Name: Pat Jackson RN Position: [facility] RN Member Role: Primary Care Nurse Name: Caren Hernandez RN Position: [facility] RN Jaun Member Role: Primary Care Nurse Name: Nely Wong RN Position: [facility] RN Member Role: Primary Care Nurse Name: Erica Brandon RN Position: [facility] RN Member Role: Primary Care Nurse Name: Adrianna Gonzalez RN Position: [facility] RN Member Role: Primary Care Nurse Name: Chinyere Espinoza RN Position: [facility] RN Member Role: Primary Care Nurse Name: Teresita Diallo RN Position: [facility] RN Member Role: Primary Care Nurse Name: Tennille Mcgarry RN Position: [facility] Hospital [employer] Repairer Member Role: Primary Care Nurse Name: Vicky Salazar RN Position: [facility] RN Member Role: Primary Care Nurse Name: Spencer Jameson RN Position: [facility] RN Member Role: Primary Care Nurse Name: Jalen Mullins Position: [facility] RN Member Role: Primary Care Nurse Care Team Related Persons Name: MARYANNE KELLER Address: [address] [place] [address] Name: MARYANNE KELLER Address: home [address] [address] Name: MARYANNE KELLER JR Address: [address] [place] [address] Name: GEORGIA KELLER Address: [place] [address] Name: BALDEV POLANCO Address: [place] [address]
--- OUTSIDE RECORDS SUMMARY | 2023-02-09 22:39 | XMS_ITS | Continuity of Care Document ---
Author Name Unknown Organization [facility] Address [address] [place] [address]- Care Team Providers Care Guide Cruise Name Role Phone Jaki Bishop MD Primary Care Physician [facility] Date[facility]s): 06/12/20 - 07/12/[address] [address]- Allergies, Adverse Reactions, Alerts Substance Reaction Severity [...] Given Permanently Refused 1Admin Note: VIS GIVEN [id number] 2Admin Note: VIS GIVEN 2008-12 3Admin Note: vis 4Admin Note: vis 02/06/08 Medications acetaminophen 325 mg oral tablet 1, tablet, By Mouth, 4 times a day, PRN, not to exceed 4 TABLETS PER DAY. Not to exceed 2000 mg/day. PRN Pain, # 60 tablet, Refills 0, Tot. Refills 0, Maintenance, NEEDED, 06/19/20 12:38:00 EDT, Route to Pharmacy Electronically, [facility] -... Start Date: 06/19/20 Status: Ordered [...] 0 Refills, Maintenance, 04/16/20 11:06:00 EST, Tablet, [facility] [id number], Partial fill upon patient request if the prescription is for a schedule II opioid drug., 168,... Start Date: 04/16/20 Status: Ordered clozapine 50 mg oral tablet 3 tablet = 150 mg, By Mouth, Daily at bedtime, # 90 tablet, 0 Refills, Maintenance, 04/16/20 11:06:00 EST, Tablet, [facility] [id number], Partial fill upon patient request ifthe prescription is for a schedule II opioid drug.,... Start Date: 04/16/20 Status: Ordered Comfort EZ Pen [place] 31 gauge x 5/16 Comfort EZ Pen [place] 31 gauge x 5/16 , See Instructions, [...] 05/26/20 14:41:00 EST, Route to Pharmacy Electronically, [facility] [id number], Partial fill upon patient request if the prescr... Start Date: 05/26/20 Stop Date: 11/22/20 Status: Ordered docusate sodium 100 mg oral capsule = 100 mg, By Mouth, 2 times a day, PRN Constipation., # 60 capsule, 3 Refills, Maintenance, 02/29/20 15:13:00 EST, Capsule, [facility] [id number], Partial fill upon patient request if the [...] Maintenance,05/28/20 13:46:00 EST, Route to Pharmacy Electronically, [facility] [id number], Partial fill upon patient request if the presc... Start Date: 05/28/20 Status: Ordered Glucerna (Vanilla Flavor) Glucerna (Vanilla Flavor), See Instructions, # 60 each, Refills 11, Tot. Refills 11, Maintenance, Drink 1 can BID. 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 Fax to Anna ( [facility], #[phone]), 06/06/20 19... Start Date: 06/06/20 Status: Ordered [...] mL, 1 Refills, Maintenance, 04/16/20 11:07:00 EST, [place], [place] - [id number],... Start Date: 04/16/20 Status: Ordered lactulose 10 gm/15 ml oral syrup 30 mL, By Mouth, 2 times a day, # 581 mL, 3 Refills, Maintenance, 06/27/20 11:11:00 EDT, [place], [place] - [id number], 10, 30 mL By Mouth 2 times [...] Replace Required Details, Route to Pharmacy Electronically, [facility], [place] - [id number], 168, cm, 04/16/20... Start Date: 05/01/20 Status: Ordered multivitamin Multiple Vitamins oral tablet 1 tablet, By Mouth, Daily, # 90 tablet, 1 Refills, Maintenance, 05/26/20 13:28:00 EST, Tablet, [facility], [place] - [id number], 1 tablet By Mouth Daily, 168, cm, [...] 0 Refills, Maintenance, 04/16/20 11:08:00 EST, Gum, [facility], [place] - [id number], Partial fill upon patient request if the prescription is for a schedule II opioid d... Start Date: 04/16/20 Status: Ordered Orthopedic Shoes Orthopedic Shoes, See Instructions, # 1 each, Refills 0, Tot. Refills 0, Maintenance, Please dispense 1 pair, Use daily, Dx: E11.65, I50.9, I27.20 Please fax to [facility] , 04/29/20 17:20:00 EST, Supply Start Date: [...] 5 Refills, Maintenance, 03/05/20 16:50:00 EST, Tablet, [place], [place] - [id number], this is an increased, 1 tablet By Mouth 2 times a day,x30 days, 168, cm, 02/10/20 5:58:00 EST, Heigh... Start Date: 03/05/20 Stop Date: 09/01/20 Status: Ordered torsemide 20 mg oral tablet 1 tablet = 20 mg, By Mouth, Daily, # 30 tablet, 1 Refills, Maintenance, 04/16/20 11:09:00 EST, Tablet, [place], [place] - [id number], Partial fill upon patient request if the prescription is for a schedule II opioid drug., 168, cm, 01... Start Date: 04/16/20 Stop Date: 04/11/21 Status: Ordered Zenpep 10,000 units-32,000 units-42,000 units oral delayed release capsule 1 capsule, By Mouth, 3 times a day, # 90 capsule, 0 Refills, Maintenance, 04/16/20 11:09:00 EST, [facility] - [place], [place] - [id number], 1 capsule By Mouth 3 times a day, 168, cm, 04/16/20 8:30:00 EST, Height, 98.7, kg, 04/11/20 2:10:00 EST [facility].. Start Date: 04/16/20 Status: Ordered Problem List [...] Active H/O tubal ligation(Confirmed) Active BHN/ CP Cane Burner/Janet Pandey [phone](Confirmed) Active History of cholecystectomy(Confirmed) Active Hypertension(Confirmed) Active [...]
--- OUTSIDE RECORDS SUMMARY | 2023-02-09 22:39 | XMS_ITS | Continuity of Care Document ---
Author Name Unknown Organization [facility] Address [address] [place] [address]- Care Team Providers Care Cut Tobacco Bulker Name Role Phone Dario HAYDEN, Jaki Primary Care Physician [facility] Date[facility]): 10/19/21 - 11/18/[address] [address]- Allergies, Adverse Reactions, Alerts Substance Reaction Severity [...] to COVID vaccine 2Admin Note: VIS GIVEN [id number] 3Admin Note: VIS GIVEN 2008- 4Admin Note: vis 5Admin Note: vis 02/06/08 Medications Abilify 10 mg oral tablet 10 mg, 1, tablet, By Mouth, Daily, # 90 tablet, Refills 3, Tot. Refills 3, Maintenance, 07/07/21 8:56:00 EDT, Route to Pharmacy Electronically, [place], [place] - [id number], Partialfill upon patient request if the prescription [...] EDT, Route to Pharmacy Electronically, [facility] [id number], Partial fill upon patient request if the prescri... Start Date: 07/07/21 Status: Ordered Comfort EZ Pen [place] 31 gauge x 5/16 USE TO inject insulin 4 (FOUR) TIMES DAILY Start Date: 07/03/21 Status: Ordered Coreg 6.25 mg oral tablet 6.25 mg, 1, tablet, By Mouth, 2 times a day, # 180 tablet, Refills 3, Tot. Refills 3, Maintenance, 07/07/21 8:56:00 EDT, Route to Pharmacy Electronically, [facility] [id number], Partial fill upon patient request if the prescri... Start Date: 07/07/21 Status: Ordered Daily Multiple Vitamins oral tablet 1 tablet, By Mouth, Daily, # 90 tablet, 3 Refills, Maintenance, 07/07/21 8:56:00 EDT, Tablet, [facility] [id number], Partial fill upon patient request if the prescription is for a schedule II opioid drug., 1 tablet By Mouth Da... Start Date: 07/07/21 Status: Ordered divalproex sodium 250 mg oral enteric coated tablet 1 tablet = 250 mg, By Mouth, Daily in AM, # 90 tablet, 3 Refills, Maintenance, 07/07/21 8:56:00 EDT, Tablet, [facility] [id number], Partial fill upon patient request if the prescription is for a schedule II opioid drug., 167,... Start Date: 07/07/21 Status: Ordered divalproex sodium 500 mg oral enteric coated tablet 1 tablet = 500 mg, By Mouth, Daily at bedtime, # 90 tablet, 3 Refills, Maintenance, 07/07/21 8:56:00 EDT, Tablet, [facility] [id number], Partial fill upon patient request if the prescription is for a schedule II opioid drug.,... Start Date: 07/07/21 Status: Ordered Eucerin Unscented topical lotion See Instructions, Apply daily as directed to dry skin. 16 oz, # 1 each, 3 Refills, Maintenance, 07/07/21 9:02:00 EDT, [place], [place] - [id number], Partial fill upon patient requestif the prescription is for a schedule II opioid drLitzy.. Start Date: 07/07/21 Status: Ordered folic acid 1 mg oral tablet 1 mg, 1, tablet, By Mouth, Daily, # 30 tablet, Refills 1, Tot. Refills 1, Maintenance, 10/21/21 12:44:00 EDT, Route to Pharmacy Electronically, [place], [place] - [id number], Partialfill upon patient request if the prescription [...] EDT, Route to Pharmacy Electronically, [facility] [id number], Partial fill upon patient request if the p... Start Date: 07/07/21 Status: Ordered gabapentin 100 mg oral capsule 200 mg, 2, capsule, By Mouth, Daily at bedtime, # 180 capsule, Refills 3, Tot. Refills 3, Maintenance, 07/07/21 8:56:00 EDT, Route to Pharmacy Electronically, [facility] [id number], Partial fill upon patient request if the pre... Start Date: 07/07/21 Status: Ordered guaiFENesin 100 mg/5 mL oral liquid 5 mL = 100 mg, By Mouth, Every 4 hours, PRN for cough, # 300 mL, 0 Refills, Acute 07/07/22 9:05:00 EDT, 07/07/21 9:02:00 EDT, Liquid, [place], [place] - [id number], Partial fill uponpatient request if the prescription [...] a day, # 581 mL, 3 Refills, [facility], 10, TAKE 30mls BY MOUTH 2 (two) times a day, 167, cm, 07/07/21 8:39:00 EDT, Height, 95.6, kg, 06/29/21 18:39:00 EDT, Dry Weight Start Date: 08/10/21 Status: Ordered Lantus Solostar Pen 100 units/mL subcutaneous solution = 16 units, Subcutaneous Infusion, Daily, # 15 mL, 5 Refills, Maintenance, 09/11/21 17:25:00 EDT, [facility] [id number], Partial fill upon patient request if the prescriptionis for a schedule II opioid drug., 167, cm, ... Start Date: 09/11/21 Status: Ordered loratadine 10 mg oral tablet 10 mg, 1, tablet, By Mouth, Daily, # 90 tablet, Refills 3, Tot. Refills 3, Maintenance, 07/07/21 8:56:00 EDT, Route to Pharmacy Electronically, [facility] [id number], Partialfill upon patient request if the prescription is fo... Start Date: 07/07/21 Status: Ordered magnesium oxide 400 mg oral tablet 1 tablet = 400 mg, By Mouth, 2 times a day, # 180 tablet, 3 Refills, Maintenance, 07/07/21 8:56:00 EDT, Tablet, [facility] [id number], Partial fill upon patient request if the prescription is for a schedule II opioid drug., 16... Start Date: 07/07/21 Status: Ordered melatonin 3 mg oral tablet 1 tablet = 3 mg, By Mouth, Daily at bedtime, PRN Insomnia, # 90 tablet, 3 Refills, Maintenance, 07/07/21 8:56:00 EDT, Tablet, [facility] [id number], Partial fill upon patientrequest if the prescription is for a schedule II op... Start Date: 07/07/21 Status: Ordered nicotine 2 mg oral transmucosal lozenge 1 lozenge = 2 mg, By Mouth, Every hour, PRN Other, Nicotine Withdrawal Symptoms (not to exceed 20 lozenges per day), # 72 lozenge, 3 Refills, Maintenance, 07/07/21 8:56:00 EDT, Lozenge, [facility] [id number], Partial fill upon... Start Date: 07/07/21 Status: Ordered pancrelipase 10,000 units-32,000 units-42,000 units oral delayed release capsule 1 capsule, By Mouth, 3 times a day, with each meal and snack, # 270 capsule, 3 Refills, Maintenance, 10/21/21 17:17:00 EDT, CR Capsule, [place], [place] - [id number], Partial fill upon patient request if the prescription is for a sche... Start Date: 10/21/21 Status: Ordered pantoprazole 40 mg oral delayed release tablet 1 tablet = 40 mg, By Mouth, Daily, # 90 tablet, 3 Refills, Maintenance, 10/19/21 14:26:00 EDT, EC Tablet, 167, cm, 07/07/21 8:39:00 EDT, Height, 95.6, kg, 06/29/21 18:39:00 EDT, Dry Weight Start Date: 10/19/21 Status: Ordered Pen [place], 31 G x 8 mm BD Ultra [...] 10/21/21 12:48:00 EDT, Route to Pharmacy Electronically, [place], [place] - [id number],Partial fill upon patient request if the prescripti... [...] 3 Refills, Maintenance, 07/07/21 8:56:00 EDT, Tablet, [facility] - [place], [place] - [id number], Partial fill upon patient request if theprescription [...] Active H/O tubal ligation(Confirmed) Active BHN/ CP Inspector Chief/Janet salvador [facility] [phone](Confirmed) Active Heart failure(Confirmed) Active History of cholecystectomy(Confirmed) [...] Team Personnel Name: Jaki Bishop MD Address: [address] [place] [address]- [place]
--- OUTSIDE RECORDS SUMMARY | 2023-02-09 22:39 | XMS_ITS | Continuity of Care Document ---
Author Name Unknown Organization [facility] Address [address] [place] [address]- Care Team Providers Care Conservation Assistant Name Role Phone Jaki Bishop MD Primary Care Physician [phone] [facility] 10[facility]19 - 11/10/[address] [address]- [facility] Allergies, Adverse Reactions, Alerts Substance Reaction Severity [...] Given Permanently Refused 1Admin Note: VIS GIVEN [id number] 2Admin Note: VIS GIVEN 2008-12 3Admin Note: vis 4Admin Note: vis 02/06/08 Medications acetaminophen 325 mg oral tablet 1, tablet, By Mouth, 4 times a day, PRN, no MORE THAN 4 TABLETS PER DAY., # 60 tablet, Refills 2, Tot. Refills 0, Acute, NEEDED, 08/07/19 23:17:00 EDT, Route to Pharmacy Electronically, [facility], 166, cm, 05/28/19 11:08:00 [...] 08/07/19 14:24:00 EDT, Route to Pharmacy Electronically, [place], [place] -, 166, cm, 05/28/19 11:08:00 [...] 02/21/19 14:45:44 EST, Route to Pharmacy Electronically, [id number], [place], [place] -, 168, cm, 02/14/19... Start Date: [...] Maintenance,03/27/19 16:10:00 EST, [id number], 166, cm, 03/27/19 15:26:00 EST, Height, 91.8, [...] K86.1, K74.6, E11.65. Fax to Anna ( [facility], #[phone]), 07/26/19 15... Start Date: 07/26/19 Status: Ordered Golytely - oral powder for reconstitution See Instructions, split prep, # 4,000 mL, 0 Refills, Maintenance, 09/24/19 14:15:00 EDT, REC Powder, [place], [place] -, split prep, 166, cm, 09/24/19 [...] mL, 6 Refills, Maintenance, 05/04/19 12:52:00 EST, [place], [place] - , Humalog ins... Start Date: [...] Refills, Maintenance, 07/26/19 8:25:00 EDT, REC Powder, [place], [place] -, 17 Gm By Mouth 2 times a day,PRN:Oth... Start Date: 07/26/19 Status: Ordered MiraLax Powder = 17 Gm, By Mouth, 2 times a day, 0 Refills, Maintenance, 10/11/19 0:39:00 EDT Start Date: 10/11/19 Status: Ordered multivitamin Multiple Vitamins oral tablet 1 tablet, By Mouth, Daily, # 90 tablet, 1 Refills, Maintenance, 08/07/19 14:23:00 EDT, Tablet, [place], [place] -, 1 tablet By Mouth Daily, [...] Weight Start Date: 10/29/19 Status: Ordered Pen [place], 31 G x 8 mm BD Ultra [...] Attn Dr. Mariano Andrade, Outpatient Psychiatry, at [phone]., See Instructions, # 1 application, Refills 0, [...] 5 Refills, Maintenance, 08/27/19 7:36:00 EDT, Tablet, [facility] - [place], [place] -, this is an increased, 1 [...] 04/20/19 10:38:00 EST, Route to Pharmacy Electronically, [facility] #[id number], 166, cm, 04/20/19 10:17:00 EST, Height, 91.8, kg, 02/23/19 17:03:00 EST, Start Date: 04/20/19 Status: Ordered torsemide 20 mg oral tablet 2 tablet = 40 mg, Daily, 0 Refills, Maintenance, 10/10/19 23:41:00 EDT Start Date: 10/10/19 Status: Ordered torsemide 20 mg oral tablet 2 tablet = 40 mg, By Mouth, Daily, # 180 tablet, 11 Refills, Maintenance, 04/20/19 10:38:00 EST, Tablet, [facility] #[id number], Replaces lower dose, 166, cm, 04/20/19 10:17:00 [...] Active H/O tubal ligation(Confirmed) Active BHN/BH CP General Practitioner/Janet Pandey [phone](Confirmed) Active History of cholecystectomy(Confirmed) Active Hypertension(Confirmed) Active [...]
--- OUTSIDE RECORDS SUMMARY | 2023-02-09 22:40 | XMS_ITS | Continuity of Care Document ---
Author Name Unknown Organization [facility] ter Address [address] [place] [address]- Care Team Providers Care Bookbinding Machine Operator Name Role Phone Dario HAYDEN, Jaki Primary Care Physician [phone] [facility] Date(s): 06/20/21 - 06/29/[address] [address]- Encounter Diagnosis Psychiatric complaint(Final) - 06/20/21 Discharge Disposition: Transfer to Psych Facility Attending Physician: Hernan HAYDEN, Shelli Admitting Physician: Luis Angel Jacob MD Referring Physician: Not on Staff, Referring [...] to COVID vaccine 2Admin Note: VIS GIVEN [id number] 3Admin Note: VIS GIVEN 2008- 4Admin Note: [...] MOUTH DAILY, # 90 tablet, 1 Refills, [facility], 150, TAKE ONE TABLET BY MOUTH [...] AT BEDTIME, # 15 mL, 3 Refills, [facility], 167, cm, 06/24/21 8:27:00 EDT, Height, [...] Replace Required Details, Route to Pharmacy Electronically, [facility], 167.64, cm, 03/23/21 14:44:00 EST, Height, [...] EST, Tablet, [facility] [id number], Partial fill upon patient request if the [...] 2 Refills, Maintenance,05/08/21 12:22:00 EST, CR Capsule, [facility] [id number], Partial fill upon patient request if the [...] Active H/O tubal ligation(Confirmed) Active BHN/ CP Park Superintendent/Janet salvador [facility] [phone](Confirmed) Active Heart failure(Confirmed) Active History of cholecystectomy(Confirmed) [...] jection fraction(Confirmed) Active Tobacco use(Confirmed) Active Results Orders for Microbiology Reports Name Date Urine Culture (URINE CULTURE) 06/20/21 Microbiology Reports TEST:Urine Culture STATUS:Auth (Verified) BODY SITE: SOURCE:URINE COLLECTED DATE/TIME:06/20/21 3:50 PM Urine Culture SPECIMEN DESCRIPTION : URINE SPECIAL REQUESTS : NONE CULTURE : Mixed bacterial baldemar, indicative of urogenital contamination. REPORT STATUS : FINAL 06/22/2021 Radiology Reports * Exam Date Time Procedure Performing Provider Status 06/20/21 2:49 PM Chest 2 Views Frontal and Lat Robyn Smithdy; Auth (Verified) Notes: (Chest 2 Views Frontal and Lat) Reason For Exam: Shortness of Breath, Fever;Other: RESULT: Chest 2 Views Frontal and Lat Chest 2 Views Frontal and Lat Hx of Present Illness: Patient reports feeling unwell, does not want to care for self, reports increased mood sings. Per EMS patient hypotensive and hyupoxic 88% on RA on arrival; Reason: Other:; Shortness of Breath, Fever; Clinical Question(s): Pneumonia COMPARISON: 03/15/2021 FINDINGS: LINES AND TUBES: None. LUNGS AND PLEURA: Prominent central pulmonary vasculature with perihilar and mid to lower lung interstitial prominence. No focal airspace consolidation. No pleural effusion. No pneumothorax. HEART, MEDIASTINUM AND MICHELLE: Cardiac silhouette size is upper limits of normal and similar to most recent prior. Normal upper mediastinal and hilar contour. BONES AND SOFT TISSUES: No acute abnormality. Embolization coils are present in the left upper abdominal quadrant. IMPRESSION: Findings most consistent with moderate pulmonary venous congestion and interstitial edema. WSN: [id number] Ordering Physician: Melvin Roque Dictated By: Chela Singh MD Dictated Date/Time: 06/20/21 2:57 pm Reviewed By: Chela Singh MD Signed By: Chela Singh MD Signed Date/Time: 06/20/21 2:57 pm Transcribed By: YAIR Transcribed Date/Time: 06/20/21 2:55 pm Vital Signs Most recent to oldest [Reference Range]: 1 2 3 Height 167 cm (06/29/21 2:49 PM) 167 cm (06/29/21 8:13 AM) 167 cm (06/29/21 2:27 AM) Weight 96.1 kg (06/29/21 6:01 AM) 98.2 kg (06/28/21 3:18 AM) 94.4 kg (06/27/21 6:16 AM) Oxygen Saturation [94-100 %] 95 % (06/29/21 2:49 PM) 95 % (06/29/21 8:13 AM) 94 % (06/29/21 2:27 AM) Pulse Rate [55-90 bpm] 72 bpm (06/29/21 2:49 PM) 64 bpm (06/29/21 8:13 AM) 67 bpm (06/29/21 2:27 AM) Body Mass Index [18.5-24.99] 35.21 *>HHI* (06/28/21 3:18 AM) 34.53 *>HHI* (06/26/21 2:49 AM) 35.07 *>HHI* (06/24/21 3:02 AM) Blood Pressure [90-138/55-84 mm Hg] 121/73mm Hg (06/29/21 2:49 PM) 128/86mm Hg (06/29/21 8:13 AM) 127/72mm Hg (06/29/21 2:27 AM) Respiratory Rate [16-30 br/min] 18 br/min (06/29/21 2:49 PM) 18 br/min (06/29/21 8:13 AM) 20 br/min (06/29/21 2:27 AM) Temperature [96.8-100.4 DegF] 98.3 DegF (06/29/21 2:49 PM) 98.3 DegF (06/29/21 8:13 AM) 98 DegF (06/29/21 2:27 AM) Liters per Minute 2 L/min (06/27/21 8:58 AM) 2 L/min (06/27/21 3:18 AM) 2 L/min (06/26/21 9:07 PM) Mode of Delivery (Oxygen) Room air (06/29/21 2:49 PM) Room air (06/29/21 8:13 AM) Room air (06/29/21 2:27 AM) Blood pressure sites Arm, right (06/29/21 2:49 PM) Arm, right (06/29/21 8:13 AM) Arm, right (06/29/21 2:27 AM) Temperature Route Oral (06/29/21 2:49 PM) Oral (06/29/21 8:13 AM) Oral (06/29/21 2:27 AM) Dry Weight 96.9 kg (06/21/21 7:45 AM) Weight Obtained Via Bed scale (06/28/21 3:18 AM) Standing scale (06/27/21 6:16 AM) Bed scale (06/26/21 2:49 AM) Social History Social History Type Response Smoking Status 5-9 cigarettes (betw een 1/4 to 1/2 pack)/day in last 30 days; Interested in cessation: No; Patient wants NRT during admission Yes; Type: Cigarettes entered on: 06/29/21 Sex
--- OUTSIDE RECORDS SUMMARY | 2023-02-09 22:40 | XMS_ITS | Continuity of Care Document ---
Author Name Unknown Organization [facility] Address [address] [place] [address]- Care Team Providers Care Track Superintendent Name Role Phone Jaki Bishop MD Primary Care Physician [facility]s): 04/21/21 - 05/21/[address] [address]- Allergies, Adverse Reactions, Alerts Substance Reaction Severity [...] to COVID vaccine 2Admin Note: VIS GIVEN [id number] 3Admin Note: VIS GIVEN 2008- 4Admin Note: [...] 3 Refills, Maintenance, 04/24/21 13:09:00 EST, Tablet, [facility] [id number], Partial fill upon patient request if the [...] 2 Refills, Maintenance,05/08/21 12:22:00 EST, CR Capsule, [facility] [id number], Partial fill upon patient request if the [...] Active H/O tubal ligation(Confirmed) Active BHN/ [facility] Dipl[facility] Courier[facility] [phone](Confirmed) Active Heart failure(Confirmed) Active History of cholecystectomy(Confirmed) [...]
--- OUTSIDE RECORDS SUMMARY | 2023-02-09 22:40 | XMS_ITS | Continuity of Care Document ---
Author Name Unknown Organization [facility] ter Address [address] [place] [address]- Care Team Providers Care Geometry Tutor Name Role Phone Dario HAYDEN, Jaki Primary Care Physician [phone] [facility]s): 02/10/21 - 02/16/[address] [address] Discharge Disposition: A-D/C Home Attending Physician: Prosper Lugo MD Admitting Physician: Bridgett Colón MD Referring Physician: Not on Staff, Referring [...] to COVID vaccine 2Admin Note: VIS GIVEN [id number] 3Admin Note: VIS GIVEN 2008- 4Admin Note: [...] Coreg 12.5 mg oral tablet 12.5 mg, Tablet, By Mouth, 02/16/21 9:00:00 EST Start Date: 02/16/21 Stop Date: 02/16/21 Status: Completed Coreg 12.5 mg oral tablet 12.5 mg, 1, tablet, By Mouth, 2 times a day, # 60 tablet, Refills 5, Tot. Refills 5, Maintenance, 02/06/21 19:54:00 EST, Route to Pharmacy Electronically, [place], [place] - [id number], Partial fill upon patient request if the [...] mL, 5 Refills, Maintenance, 02/06/21 19:54:00 EST, [facility], [place] - [id number], Partial fill upon patient request if the prescription is for a schedule II opioid d... Start Date: 02/06/21 Stop Date: 08/05/21 Status: Ordered loratadine 10 mg oral tablet 10 mg, 1, tablet, By Mouth, Daily, # 30 tablet, Refills 0, Tot. Refills 0, Maintenance, 11/28/20 9:25:00 EDT, Route to Pharmacy Electronically, [facility], Partial fill upon patient request [...] a day, # 60 tablet, 0 Refills, [facility], 167.64, cm, 11/27/20 22:30:00 EDT, Height, 98.5, kg, 10/22/20 17:50:00 EDT, Dry Weight Start Date: 01/08/21 Status: Ordered Nicoderm C-Q Clear 14 mg/24 hr transdermal film, extended release 1 patch, Topically, Daily, for 30 days, # 30 patch, 0 Refills, Acute 03/18/21 13:06:00 EST, 02/16/21 13:06:00 EST, Patch, [facility], Partial fill upon patient request if the prescription is for a schedule II opioid drug., 166.6, cm, 11/... Start Date: 02/16/21 Stop Date: 03/18/21 Status: Ordered Nicotine 2 mg gum = 2 mg, Chew, Every 2 hours, PRN Other, for 6 week(s), Nicotine Cravings, # 40 each, 1 Refills, Acute 05/11/21 13:06:00 EST, 02/16/21 13:06:00 EST, Gum, [facility], Partial fill upon patient request [...] 0 Refills, Maintenance,02/06/21 19:56:00 EST, CR Capsule, [facility] [place] [place] - [id number], Partial fill upon patient request if the [...] 0 Refills, Maintenance, 11/28/20 9:27:00 EDT, Nasal Isabella, [facility] 3, Partial fill upon patient request [...] 5 Refills, Maintenance, 02/06/21 19:56:00 EST, Tablet, [facility] [place] [place] - [phone], Partial fill upon patient request if the [...] Active H/O tubal ligation(Confirmed) Active BHN/ CP Material Controller/Janet Pandey [phone](Confirmed) Active History of cholecystectomy(Confirmed) Active Hypertension(Confirmed) Active Hypoxia(Confirmed) Active Incisional hernia(Confirmed) Active Nicotine dependence(Confirmed) Active Obese class I(Confirmed) Active Obesity (BMI 30.0-34.9)(Confirmed) Active Pulmonary HTN, Severe(Confirmed) Active Steatohepatitis (w/Stage III Fibrosis, Liver Biopsy 05/2012)(Confirmed) Active Heart failure with reduced e jection fraction(Confirmed) Active Results Radiology Reports * Exam Date Time Procedure Performing Provider Status 02/10/21 12:00 PM Chest 2 Views Frontal and Lat Bettie Aponte; Angelo (Verified) Notes: (Chest 2 Views Frontal and Lat) Reason For Exam: Shortness of Breath, Fever;Other: RESULT: Chest 2 Views Frontal and Lat Chest 2 Views Frontal and Lat Hx of Present Illness: pt recently discharged from hospital for pneumonia. Pt found altered and in the low 80s for oxygen sat by visiting nurse; Reason: Other:; Shortness of Breath, Fever; Clinical Question(s): Pneumonia COMPARISON: Prior chest radiographs, most recently February 06, 2021. FINDINGS: LINES AND TUBES: None. LUNGS AND PLEURA: Indistinct and congested pulmonary vasculature with probable patchy superimposed opacities in the mid and lower lungs bilaterally, complicated by underlying low lung volumes. No definite effusion or pneumothorax. HEART, MEDIASTINUM AND MICHELLE: Similar prominence of the cardiomediastinal silhouette. BONES AND SOFT TISSUES: No acute abnormality. Localization coils noted in the left upper quadrant. IMPRESSION: 1. Low lung volumes with probable [id number] pulmonary edema. 2. Patchy opacities in the lower lungs may represent atelectasis in the setting of low lung volumes, more confluent regions of edema, or potentially a multifocal infectious/inflammatory process. WSN: [id number] Ordering Physician: Alia Emerson Dictated By: Dillon Wade MD Dictated Date/Time: 02/10/21 12:32 p Reviewed By: Dillon Wade MD Signed By: Dillon Wade MD Signed Date/Time: 02/10/21 12:32 pm Transcribed By: YAIR Transcribed Date/Time: 02/10/21 12:28 pm Vital Signs Most recent to oldest [Reference Range]: 1 2 3 Height 166.6 cm (02/16/21 3:24 PM) 166.6 cm (02/16/21 10:02 AM) 166.6 cm (02/16/21 6:50 AM) Weight 94.4 kg (02/11/21 2:27 PM) Oxygen Saturation [94-100 %] 94 % (02/16/21 3:24 PM) 94 % (02/16/21 10:02 AM) 92 % *L* (02/16/21 6:50 AM) Pulse Rate [55-90 bpm] 76 bpm (02/16/21 3:24 PM) 70 bpm (02/16/21 10:16 AM) 70 bpm (02/16/21 10:02 AM) Body Mass Index [18.5-24.99] 34.01 *>HHI* (02/11/21 2:27 PM) Blood Pressure [90-138/55-84 mm Hg] 120/87mm Hg (02/16/21 3:24 PM) 107/76mm Hg (02/16/21 10:16 AM) 107/76mm Hg (02/16/21 10:02 AM) Respiratory Rate [16-30 br/min] 18 br/min (02/16/21 3:24 PM) 18 br/min (02/16/21 10:02 AM) 18 br/min (02/16/21 6:50 AM) Temperature [96.8-100.4 DegF] 97.4 DegF (02/16/21 3:24 PM) 98.0 DegF (02/16/21 10:02 AM) 97.3 DegF (02/16/21 6:50 AM) Liters per Minute 2 L/min (02/11/21 11:37 AM) 2 L/min (02/10/21 11:15 PM) 2 L/min (02/10/21 8:18 PM) Mode of Delivery (Oxygen) Room air (02/16/21 3:24 PM) Room air (02/16/21 10:02 AM) Room air (02/16/21 6:50 AM) Blood pressure sites Arm, left (02/16/21 3:24 PM) Arm, right (02/16/21 10:02 AM) Arm, left (02/16/21 6:50 AM) Temperature Route Oral (02/16/21 3:24 PM) Oral (02/16/21 10:02 AM) Oral (02/16/21 6:50 AM) Dry Weight 94.4 kg (02/11/21 2:27 PM) Weight Obtained Via Bed scale (02/11/21 2:27 PM) Social History Social History Type Response Smoking Status 10 or more cigarette s (1/2 pack or more)/day in last 30 days; Interested in cessation: No; Patient wants NRT during admission No;Never; Type: Cigarettes; Exposure to Secondhand Smoke: Yes; Number of years: 30; entered on: 02/07/21 Sex
--- OUTSIDE RECORDS SUMMARY | 2023-02-09 22:40 | XMS_ITS | Continuity of Care Document ---
Author Name Unknown Organization [facility] Address [address] [place] [address]- Care Team Providers Care Payroll Administrator Name Role Phone Jaki Bishop MD Primary Care Physician Encounter [facility] [place]): 07/03/20 - 08/28/[address] [address]- Attending Physician: Luis Ho MD Admitting Physician: Luis Ho MD Allergies, Adverse Reactions, Alerts Substance Reaction [...] Given Permanently Refused 1Admin Note: VIS GIVEN [id number] 2Admin Note: VIS GIVEN 2008-12 3Admin Note: vis 4Admin Note: vis 02/06/08 Medications acetaminophen 325 mg oral tablet 1, tablet, By Mouth, 4 times a day, PRN, not to exceed 4 TABLETS PER DAY. Not to exceed 2000 mg/day. PRN Pain, # 60 tablet, Refills 5, Tot. Refills 5, Maintenance, NEEDED, 08/14/20 16:55:00 EDT, Route to Pharmacy Electronically, [facility]... Start Date: 08/14/20 Status: Ordered Clozaril [...] EST, Route to Pharmacy Electronically, [facility] [id number], Partial fill upon patient request if the prescr... Start Date: 05/26/20 Stop Date: 11/22/20 Status: Ordered gabapentin 100 mg oral capsule 200 mg, 2, capsule, By Mouth, 2 times a day, # 120 capsule, Refills 5, Tot. Refills 5, Maintenance,05/28/20 13:46:00 EST, Route to Pharmacy Electronically, [facility] [id number], Partial fill upon patient request if the presc... Start Date: 05/28/20 Status: Ordered Humalog Kwik Pen 100 units/mL subcutaneous injection See Instructions, 3 Units for bood sugar above 120 mg/dl and then add 2 Units for every 50 mg/dl rise above 120. Three times a day before meals., # 15 mL, 1 Refills, Maintenance, 04/16/20 11:07:00 EST, [facility] [id number],... Start Date: 04/16/20 Status: Ordered lactulose 10 [...] 08/20/20 16:55:00 EDT, Solution, [facility], [place] - [id number], 168, cm, 04/16/20 8:30:00 EST, Height, 98.7, kg, 03/22... Start Date: 08/20/20 Status: Ordered loratadine 10 mg oral tablet See Instructions, TAKE ONE TABLET BY MOUTH DAILY, # 30 tablet, Refills 5, Tot. Refills 5, 05/01/20 8:18:00 EST, Instructions Replace Required Details, Route to Pharmacy Electronically, [facility], [place] - [id number], 168, cm, 04/16/20... Start Date: 05/01/20 Status: [...] 5 Refills, Maintenance, 07/14/20 16:30:00 EDT, Tablet, [facility] [id number], this is an increased, 1 tablet By Mouth 2 times a day,x30 days, 168, cm, 04/16/20 8:30:00 EST, Heigh... Start Date: 07/14/20 Stop Date: 01/10/21 Status: Ordered torsemide 20 mg oral tablet 1 tablet = 20 mg, By Mouth, Daily, # 30 tablet, 1 Refills, Maintenance, 04/16/20 11:09:00 EST, Tablet, [facility] [id number], Partial fill upon patient request if the prescription is for a schedule II opioid drug., 168, cm, 01... Start Date: 04/16/20 Stop Date: 04/11/21 Status: Ordered Zenpep 10,000 units-32,000 units-42,000 units oral delayed release capsule 1 capsule, By Mouth, 3 times a day, # 90 capsule, 0 Refills, Maintenance, 04/16/20 11:09:00 EST, [facility] [id number], 1 capsule By Mouth 3 times a [...] Active H/O tubal ligation(Confirmed) Active BHN/BH CP Plastics And Composites Inspector/Janet salvador [facility] [phone](Confirmed) Active History of cholecystectomy(Confirmed) Active Hypertension(Confirmed) Active [...]
--- OUTSIDE RECORDS SUMMARY | 2023-02-09 22:40 | XMS_ITS | Continuity of Care Document ---
Author Name Unknown Organization [facility] Address [address] [place] [address]- Care Team Providers Care Irrigation Installation Specialist Name Role Phone Jaki Bishop MD Primary Care Physician [phone] [facility] [place] - 07/16/[address] [address]- [facility] Attending Physician: Antonio Guido Allergies, Adverse Reactions, Alerts Substance Reaction Severity Status acetaminophen Active predniSONE Dizzinesses 02-JAN-2016 21:52:27<$> Active NSAIDs Active Zyprexa Hypertension Active Immunizations Given and [...] Given Patient Refuses 1Admin Note: VIS GIVEN [id number] 2Admin Note: VIS GIVEN 2008-12 3Admin Note: vis 4Admin Note: vis 02/06/08 Medications acetaminophen 325 mg oral tablet 325 mg, 1, tablet, By Mouth, 4 times a day, PRN, No more than 4 tablets per day, # 60 tablet, Refills 11, Tot. Refills 11, Acute 10/05/19 12:00:00 EDT, for pain, 10/03/18 14:57:21 EDT, Route to Pharmacy Electronically, [id number]... Start Date: 10/03/18 Stop Date: 10/05/19 Status: [...] 05/02/19 13:58:00 EST, Route to Pharmacy Electronically, [facility] [place], [place] -, 166, cm, 04/30/19 10:41:00 EST, Height, 91.8, kg, 02/23/19 17... Start Date: 2/12/20 Status: Ordered docusate sodium 100 mg oral capsule 100 mg, 1, capsule, By Mouth, 2 times a day, # 60 capsule, Refills 11, Tot. Refills 11, Maintenance, 02/21/19 14:45:44 EST, Route to Pharmacy Electronically, [id number], [facility] [place], [place] -, 168, cm, 02/14/19... Start Date: 02/21/19 Stop Date: 02/16/20 Status: Ordered Ensure (Vanilla Flavor) Ensure (Vanilla Flavor), See Instructions, # 60 each, Refills 11, Tot. Refills 11, Maintenance, Drink 1 can BID. Diagnosis: Chronic Pancreatitis, Cirrhosis. ICD10 K86.1, K74.6, Fax to Anna( [facility], #[phone]), 05/24/19 15:01:00 EST, Compound Start Date: 05/24/19 [...] Maintenance,03/27/19 16:10:00 EST, Route to Pharmacy Electronically, [facility] #[id number], 166, cm, 03/27/19 15:26:00 EST, Height, 91.8, kg, 02/23/19 17:03:... Start Date: 03/27/19 Stop Date: 10/23/19 Status: Ordered Humalog Kwik Pen 100 units/mL subcutaneous injection See Instructions, 4 Units for bood sugar above 120 mg/dl and then add 2 Units for every 50 mg/dl rise above 120. Three times a day before meals., # 15 mL, 6 Refills, Maintenance, 05/04/19 12:52:00 EST, [place], [place] - , Humalog ins... Start Date: 05/04/19 Status: Ordered Lantus Solostar Pen 100 units/mL subcutaneous solution See Instructions, This is an increase in dose. 28u QAM & 44 units QHS. Subcutaneous Injection Daily 30 days, # 5 each, 6 Refills, Maintenance, 07/12/19 9:59:00 EDT, [place], [place] -, 166, cm, 05/28/19 11:08:00 EDT, Height, 91.8, kg,... Start Date: 07/12/19 Status: Ordered MiraLax oral powder for reconstitution = 17 Gm, By Mouth, 2 times a day, PRN Other, dissolve in water before taking. goal 2-3 bowel movements daily, # 527 Gm, 0 Refills, Maintenance, 03/27/19 17:13:00 EST, REC Powder, [facility]#[id number], 17 Gm By Mouth 2 times a [...] TABLET BY MOUTH DAILY FOR STOMACH ACID, [facility] #[id number] Start Date: 11/28/18 Status: Ordered Pen [place], 31 G x 8 mm BD Ultra [...] Attn Dr. Mariano Andrade, Outpatient Psychiatry, at [phone]., See Instructions, # 1 application, Refills 0, [...] 04/20/19 10:38:00 EST, Route to Pharmacy Electronically, [facility] #[id number], 166, cm, 04/20/19 10:17:00 EST, Height, 91.8, kg, 02/23/19 17:03:00 EST, . Start Date: 04/20/19 Status: Ordered torsemide 20 mg oral tablet 2 tablet = 40 mg, By Mouth, Daily, # 180 tablet, 11 Refills, Maintenance, 04/20/19 10:38:00 EST, Tablet, [facility] #[id number], Replaces lower dose, 166, cm, 04/20/19 10:17:00 [...] H/O tubal ligation(Confirmed) Active BHN/ CP Transportation Maintenance Supervisor[facility] [phone](Confirmed) Active History of cholecystectomy(Confirmed) Active Hypertension(Confirmed) Active [...]
--- OUTSIDE RECORDS SUMMARY | 2023-02-09 22:40 | XMS_ITS | Continuity of Care Document ---
Author Name Unknown Organization [facility] Address [address] [place] [address]- Care Team Providers Care Clinical Science Consultant Name Role Phone Jaki Bishop MD Primary Care Physician Encounter [facility] Date(s): 04/18/20 - 05/18/[address] [address]- Allergies, Adverse Reactions, Alerts Substance Reaction Severity [...] Given Permanently Refused 1Admin Note: VIS GIVEN [id number] 2Admin Note: VIS GIVEN 2008-12 3Admin Note: vis 4Admin Note: vis 02/06/08 Medications acetaminophen 325 mg oral tablet 1, tablet, By Mouth, 4 times a day, PRN, not to exceed 4 TABLETS PER DAY, # 60 tablet, Refills 0, Tot. Refills 0, Acute, NEEDED, 05/01/20 9:37:00 EST, Route to Pharmacy Electronically, [facility], 168, cm, 04/16/20 8:30:00 EST, Height, [...] 0 Refills, Maintenance, 04/16/20 11:06:00 EST, Tablet, [facility] [id number], Partial fill upon patient request if the prescription is for a schedule II opioid drug., 168,... Start Date: 04/16/20 Status: Ordered clozapine 50 mg oral tablet 3 tablet = 150 mg, By Mouth, Daily at bedtime, # 90 tablet, 0 Refills, Maintenance, 04/16/20 11:06:00 EST, Tablet, [facility] [id number], Partial fill upon patient request ifthe prescription is for a schedule II opioid drug.,... Start Date: 04/16/20 Status: Ordered Coreg 6.25 mg oral tablet 6.25 mg, 1, tablet, By Mouth, 2 times a day, # 60 tablet, Refills 0, Tot. Refills 0, Maintenance, 04/16/20 11:05:00 EST, Route to Pharmacy Electronically, [facility] [id number], Partial fill upon patient request, 168, cm, 03/22... Start Date: 04/16/20 Status: Ordered docusate sodium 100 mg oral capsule = 100 mg, By Mouth, 2 times a day, PRN Constipation., # 60 capsule, 3 Refills, Maintenance, 02/29/20 15:13:00 EST, Capsule, [facility] [id number], Partial fill upon patient request if the [...] Maintenance,04/16/20 11:06:00 EST, Route to Pharmacy Electronically, [facility] [id number], Partial fill upon patient request if the [...] mL, 1 Refills, Maintenance, 04/16/20 11:07:00 EST, [place], [place] - [id number],... Start Date: 04/16/20 Status: Ordered lactulose 10 gm/15 ml oral syrup 30 mL, By Mouth, 2 times a day, # 581 mL, 0 Refills, Acute, 03/25/20 11:49:00 EST, [facility],, TAKE 30 ML BY MOUTH 2 [...] 1 Refills, Maintenance, 04/16/20 11:07:00 EST, Solution, [place], [place] - [id number], 168, cm, 04/16/20 8:30:00 EST, Height, 98.7, kg, 04/11/20 2:10:00 EST, Dry Weight Start Date: 04/16/20 Status: Ordered loratadine 10 mg oral tablet See Instructions, TAKE ONE TABLET BY MOUTH DAILY, # 30 tablet, Refills 5, Tot. Refills 5, 05/01/20 8:18:00 EST, Instructions Replace Required Details, Route to Pharmacy Electronically, [facility] [id number], 168, cm, 04/16/20... Start Date: 05/01/20 Status: [...] 1 Refills, Maintenance, 08/07/19 14:23:00 EDT, Tablet, [place], [place] -, 1 tablet By Mouth Daily, [...] 0 Refills, Maintenance, 04/16/20 11:08:00 EST, [facility], [place], [place] - [id number], Partial fill upon patient request if the [...] 5 Refills, Maintenance, 03/05/20 16:50:00 EST, Tablet, [facility] [id number], this is an increased, 1 tablet By [...] 1 Refills, Maintenance, 04/16/20 11:09:00 EST, Tablet, [place], [place] - [id number], Partial fill upon patient request if the prescription is for a schedule II opioid drug., 168, cm, 01... 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
--- OUTSIDE RECORDS SUMMARY | 2023-02-09 22:40 | XMS_ITS | Continuity of Care Document ---
Author Name Unknown Organization [facility] Address [address] [place] [address]- Care Team Providers Care Chamfering Machine Operator Name Role Phone Dario HAYDEN, Jaki Primary Care Physician [facility] Date(s): 10/21/22 - 11/20/[address] [address]- Allergies, Adverse Reactions, Alerts Substance Reaction Severity [...] to COVID vaccine 2Admin Note: VIS GIVEN [id number] 3Admin Note: VIS GIVEN 2008- 4Admin Note: vis 5Admin Note: vis 02/06/08 Medications albuterol 90 mcg/inh inhalation powder 2 puffs, Inhalation, Every 4 hours, PRN as needed, PRN Wheezing, # 1 each, 1 Refills, Maintenance, 06/28/22 14:49:00 EDT, Powder, [facility] [id number], Partial fill upon patient request if the [...] 07/16/22 16:04:00 EDT, Route to Pharmacy Electronically, [facility] [id number], Partialfill upon patient request if the prescription is fo... Start Date: 07/16/22 Status: Ordered benztropine 1 mg oral tablet 0.5 mg, 0.5, tablet, By Mouth, 2 times a day, # 30 tablet, Refills 3, Tot. Refills 3, Maintenance, 09/17/22 1:51:00 EDT, Route to Pharmacy Electronically, [facility] [id number], Partial fill upon patient request if the [...] 10/18/22 11:46:00 EDT, Route to Pharmacy Electronically, [facility] [id number], Partial fill upon patient request if the prescr... Start Date: 10/18/22 Status: Ordered cloNIDine 0.1 mg oral tablet 0.1 mg, 1, tablet, By Mouth, Daily at bedtime, # 30 tablet, Refills 2, Tot. Refills 2, Maintenance,10/18/22 11:46:00 EDT, Route to Pharmacy Electronically, [facility] [id number], Partial fill upon patient request if the presc... Start Date: 10/18/22 Status: Ordered Creon 12,000 units oral delayed release capsule 1 capsule, By Mouth, 3 times a day, # 90 capsule, 3 Refills, Maintenance, 09/17/22 1:49:00 EDT, EC Capsule, [facility] [id number], Partial fill upon patient request if the [...] 09/17/22 1:48:00 EDT, Route to Pharmacy Electronically, [facility] [id number], 160, cm, 07/26/22 12:51:00 EDT, Height, 89.2, [...] 10/18/22 11:46:00 EDT, Route to Pharmacy Electronically, [facility] [id number], Partial fill upon patient request if the [...] mL, 5 Refills, Maintenance, 09/17/22 1:49:00 EDT, [facility] [id number], 15, 30 mL By Mouth 2 times a day, 160, cm, 07/26/22 12:51:00 EDT, Height, 89.2, kg, 07/21/22 3:29:00 EDT, Dry Weight Start Date: 09/17/22 Status: Ordered Lantus Solostar Pen 100 units/mL subcutaneous solution = 6 units, Subcutaneous Injection, Daily in AM, # 10 mL, 2 Refills, Maintenance, 04/29/22 14:34:00 EST, Solution, [facility] [id number], Partial fill upon patient request if the prescription is for a schedule II opioid drug.,... Start Date: 04/29/22 Status: Ordered magnesium oxide 400 mg oral tablet 1 tablet = 400 mg, By Mouth, Daily, for 14 days, # 14 tablet, 0 Refills, Acute 12/02/22 20:51:00 EDT, 11/18/22 20:51:00 EDT, Tablet, [facility] [id number], Partial fill upon patient request if the prescription is for a schedul... Start Date: 11/18/22 Stop Date: 12/02/22 Status: Ordered multivitamin Multiple Vitamins oral tablet 1 tablet, By Mouth, Daily, # 90 tablet, 1 Refills, Maintenance, 10/22/22 19:32:00 EDT, Tablet, [facility] [id number], Partial fill upon patient request if the prescription isfor a schedule II opioid drug., 1 tablet By Mouth D... Start Date: 10/22/22 Status: Ordered Nicotine 2 mg gum 1 each = 2 mg, Chew, Every 2 hours, PRN for smoking cessation, for 4 week(s), # 160 each, 1 Refills, Acute 12/13/22 11:41:00 EDT, 10/18/22 11:41:00 EDT, Gum, [facility] [id number], Partial fill upon patient request if the pres... Start Date: 10/18/22 Stop Date: 12/13/22 Status: Ordered pantoprazole 40 mg oral delayed release tablet 1 tablet, By Mouth, Daily, # 30 tablet, 2 Refills, Maintenance, 11/10/22 11:02:00 EDT, 165.09, cm, 10/18/22 11:23:00 EDT, Height, 83.7, kg, 10/05/22 21:20:00 EDT, Dry Weight Start Date: 11/10/22 Status: Ordered Pen Jackson, 31 G x 5 mm BD Ultra [...] 10/12/22 10:21:00 EDT, Route to Pharmacy Electronically, [facility] [id number], Partial fill upon patient request if the prescription... Start Date: 10/12/22 Stop Date: 11/11/22 Status: Ordered risperiDONE 3 mg oral tablet 3 mg, 1, tablet, By Mouth, Daily at bedtime, # 30 tablet, Refills 0, Tot. Refills 0, Maintenance, 10/12/22 10:21:00 EDT, Route to Pharmacy Electronically, [facility] [id number], Partial fill upon patient request if the [...] 5 Refills, Maintenance, 09/17/22 1:52:00 EDT, [facility] [place] [place] [facility] [id number], Partial fill upon patient request if the prescription is for a schedule II opioid drug., 160, cm, 07/26/22 12:... Start Date: 09/17/22 Stop Date: 03/16/23 Status: Ordered traZODone 50 mg oral tablet 50 mg, 1, tablet, By Mouth, Daily at bedtime, # 30 tablet, Refills 2, Tot. Refills 2, Maintenance, 09/17/22 1:47:00 EDT, Route to Pharmacy Electronically, [place], [place] - [id number], Partial fill upon patient request if the [...] Care Team Personnel Name: Lawrence Hendrix Position: [facility] RN Member Role: Primary Care Nurse Name: Nazia Norris RN Position: [facility] Outreach Member Role: Primary Care Nurse Name: Rufino Lloyd RN Position: [facility] RN Member Role: Primary Care Nurse Name: Cristina Carpenter RN Position: [facility] RN Member Role: Primary Care Nurse Name: Rosette Noriega RN Position: [facility] SN RN Member Role: Primary Care Nurse Name: Mary Hidalgo RN Position: [facility] AMB Nurse Member Role: Primary Care Nurse Name: Sissy Duran RN Position: [facility] AMB Nurse Member Role: Primary Care Nurse Name: Rohit Zavaleta RN Position: [facility] RN Member Role: Primary Care Nurse Name: Erlinda Hartman NP Position: [facility] Associate Professional Member Role: Primary Care Nurse Address: Address: [address] [place] [address] Name: Shante Solis RN Position: [facility] RN Member Role: Primary Care Nurse Name: Joshua Prakash RN Position: [facility] RN Member Role: Primary Care Nurse Name: Bettie Vanegas RN Position: [facility] SN RN Member Role: Primary Care Nurse Name: Jay Marroquin RN Position: [facility] RN Member Role: Primary Care Nurse Name: Adrianna Church RN Position: [facility] RN Member Role: Primary Care Nurse Name: Sue Purdy RN Position: [facility] RN Member Role: Primary Care Nurse Name: Hector Perez RN Position: [facility] RN Member Role: Primary Care Nurse Name: Aleena Vizcaino RN Position: [facility] RN Member Role: Primary Care Nurse Name: Kacey Wilhelm RN Position: [facility] RN Member Role: Primary Care Nurse Name: Leslie Malloy RN Position: [facility] RN Member Role: Primary Care Nurse Name: Yesenia Hu LPN Position: [facility] RN Member Role: Primary Care Nurse Name: Joaquina Herrera RN Position: [facility] RN Member Role: Primary Care Nurse Name: Diego Bell RN Position: [facility] RN Member Role: Primary Care Nurse Name: Ese Grey Position: [facility] RN Member Role: Primary Care Nurse Name: Chela Najera RN Position: [facility] RN Member Role: Primary Care Nurse Name: Tootie Gonzalez RN Position: [facility] RN Member Role: Primary Care Nurse Name: Nancy Monte RN Position: [facility] RN Member Role: Primary Care Nurse Name: Marilee Starkey Position: [facility] RN Member Role: Primary Care Nurse Name: Silvina Dodd RN Position: [facility] RN Member Role: Primary Care Nurse Name: Flaco Clifford DO Position: [facility] Renal MD Member Role: Lifetime Consulting Physician Address: Address: [address] [place], [place] [address] [place] [address]- Name: Marilee Richardson RN Position: [facility] RN Member Role: Primary Care Nurse Name: Rufino Johnson RN Position: [facility] RN Member Role: Primary Care Nurse Name: Judson Larry Position: [facility] RN Member Role: Primary Care Nurse Name: Jovita Camargo RN Position: [facility] RN Member Role: Primary Care Nurse Name: Bruna Pizarro Position: [facility] RN Member Role: Primary Care Nurse Name: Ju Zhu Position: [facility] RN Member Role: Primary Care Nurse Name: Ester Palomares Position: [facility] RN Member Role: Primary Care Nurse Name: Emma Colbert RN Position: [facility] RN Member Role: Primary Care Nurse Name: Hallie Gambino RN Position: [facility] Onco RN Member Role: Primary Care Nurse Name: Maya Ambriz RN Position: [facility] RN Member Role: Primary Care Nurse Name: Bhavna Rendon LPN Position: [facility] RN Member Role: Primary Care Nurse Name: Luis Burton RN Position: [facility] RN Member Role: Primary Care Nurse Name: Jaki Bishop MD Position: [facility] Physician - Primary Care Member Role: PCP Address: Address: [address] [place] [id number]- [place] Name: Lucian Krause RN Position: [facility] RN Member Role: Primary Care Nurse Name: Misty Tariq Position: [facility] RN Member Role: Primary Care Nurse Name: Isaiah Combs RN Position: [facility] RN Member Role: Primary Care Nurse Name: Leslie Ward RN Position: [facility] RN Member Role: Primary Care Nurse Name: Jacki Gomes RN Position: [facility] RN Member Role: Primary Care Nurse Name: Derek Smith RN Position: [facility] RN Member Role: Primary Care Nurse Name: Perri Smith RN Position: [facility] RN Member Role: Primary Care Nurse Name: Mar Brothers RN Position: [facility] RN Member Role: Primary Care Nurse Name: Ivette Shankar RN Position: [facility] RN Member Role: Primary Care Nurse Name: Laura Mary RN Position: [facility] SN RN Member Role: Primary Care Nurse Name: Mary Guillen RN Position: [facility] RN Member Role: Primary Care Nurse Name: Octavio Box RN Position: [facility] RN Member Role: Primary Care Nurse Name: Nazia Tapia RN Position: [facility] RN Member Role: Primary Care Nurse Name: Pat Jackson RN Position: [facility] RN Member Role: Primary Care Nurse Name: Caren Hernandez RN Position: [facility] RN Jaun Member Role: Primary Care Nurse Name: Perri Bryant RN Position: [facility] RN Member Role: Primary Care Nurse Name: Nely Wong RN Position: [facility] RN Member Role: Primary Care Nurse Name: Erica Brandon RN Position: [facility] RN Member Role: Primary Care Nurse Name: Adrianna Gonzalez RN Position: [facility] RN Member Role: Primary Care Nurse Name: Annmarie Feldman RN Position: [facility] PCO w/OE and EZ Script Member Role: Primary Care Nurse Name: Chinyere Espinoza RN Position: [facility] RN Member Role: Primary Care Nurse Name: Teresita Diallo RN Position: [facility] RN Member Role: Primary Care Nurse Name: Tennille Mcgarry RN Position: [facility] Hospital Filtration Plant Mechanic Member Role: Primary Care Nurse Name: Vicky Salazar RN Position: [facility] RN Member Role: Primary Care Nurse Name: Spencer Jameson RN Position: [facility] RN Member Role: Primary Care Nurse Name: Jalen Mullins Position: S RN Member Role: Primary Care Nurse Care Team Related Persons Name: MARYANNE KELLER Address: home [address] [place] [address] Name: MARYANNE KELLER Address: home [address] [address] Name: MARYANNE KELLER JR Address: home [address] [place] [address] Name: GEORGIA KELLER Address: [place] [address] Name: BALDEV POLANCO Address: [place] [address]
--- OUTSIDE RECORDS SUMMARY | 2023-02-09 22:40 | XMS_ITS | Continuity of Care Document ---
Author Name Unknown Organization [facility] Address [address] [place] [address]- Care Team Providers Care Survey Interviewer Name Role Phone Jaki Bishop MD Primary Care Physician [facility]counter [facility] Date(s): 08/01/19 - 09/26/[address] [address]- [facility] Attending Physician: Jaki Bishop MD Admitting Physician: [...] Given Patient Refuses 1Admin Note: VIS GIVEN [id number] 2Admin Note: VIS GIVEN 2008- 3Admin Note: vis 4Admin Note: vis 02/06/08 Medications acetaminophen 325 mg oral tablet 1, tablet, By Mouth, 4 times a day, PRN, no MORE THAN 4 TABLETS PER DAY., # 60 tablet, Refills 2, Tot. Refills 0, Acute, NEEDED, 08/07/19 23:17:00 EDT, Route to Pharmacy Electronically, [facility], 166, cm, 05/28/19 11:08:00 EDT, Height, 91.8,... [...] 08/07/19 14:24:00 EDT, Route to Pharmacy Electronically, [facility] [place], [place] -, 166, cm, 05/28/19 11:08:00 EDT, Height, 91.8, kg, 02/23/19 17... Start Date: 08/07/19 Status: Ordered docusate sodium 100 mg oral capsule 100 mg, 1, capsule, By Mouth, 2 times a day, # 60 capsule, Refills 11, Tot. Refills 11, Maintenance, 02/21/19 14:45:44 EST, Route to Pharmacy Electronically, [id number], [facility] [place], [place] -, 168, cm, 02/14/19... Start Date: [...] Maintenance,03/27/19 16:10:00 EST, Route to Pharmacy Electronically, [facility] #[id number], 166, cm, 03/27/19 15:26:00 EST, Height, 91.8, kg, 02/23/19 17:03:... Start Date: 03/27/19 Stop Date: 10/23/19 Status: Ordered Glucerna (Vanilla Flavor) Glucerna (Vanilla Flavor), See Instructions, # 60 each, Refills 11, Tot. Refills 11, Maintenance, Drink 1 can BID. 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 Fax to [facility] ( [facility], #[phone]), 07/26/19 15... Start Date: 07/26/19 Status: Ordered Golytely - oral powder for reconstitution See Instructions, split prep, # 4,000 mL, 0 Refills, Maintenance, 09/24/19 14:15:00 EDT, REC Powder, [place], [place] -, split prep, 166, cm, 09/24/19 [...] mL, 6 Refills, Maintenance, 05/04/19 12:52:00 EST, [place], [place] - , Humalog ins... Start Date: [...] Refills, Maintenance, 07/26/19 8:25:00 EDT, REC Powder, [place], [place] -, 17 Gm By Mouth 2 times a day,PRN:Oth... Start Date: 07/26/19 Status: Ordered multivitamin Multiple Vitamins oral tablet 1 tablet, By Mouth, Daily, # 90 tablet, 1 Refills, Maintenance, 08/07/19 14:23:00 EDT, Tablet, [place], [place] -, 1 tablet By Mouth Daily, 166, cm, 03/09/20 11:08:00 EDT, Height, 91.8, kg, 02/23/19 17:03:00 EST, Dry Weight Start Date: 08/07/19 Status: Ordered pantoprazole 40 mg oral delayed release tablet 1 tablet, By Mouth, Daily, FOR stomach acid., # 30 tablet, 2 Refills, Maintenance, 07/30/19 17:00:00 EDT, 166, cm, 05/28/19 11:08:00 EDT, Height, 91.8, kg, 02/23/19 17:03:00 EST, Dry Weight Start Date: 07/30/19 Status: Ordered Pen [place], 31 G x 8 mm BD Ultra [...] Attn Dr. Mariano Andrade, Outpatient Psychiatry, at [phone]., See Instructions, # 1 application, Refills 0, Tot. Refills 0, Maintenance, Please draw CBC with dif (for ANC) weekly and fax re... Start Date: 11/21/15 Status: Ordered sacubitril-valsartan 97 mg-103 mg oral tablet 1 tablet, By Mouth, 2 times a day, # 60 tablet, 5 Refills, Maintenance, 08/27/19 7:36:00 EDT, Tablet, [facility] [place], [place] -, this is an increased, 1 [...] 04/20/19 10:38:00 EST, Route to Pharmacy Electronically, [facility] #[id number], 166, cm, 04/20/19 10:17:00 EST, Height, 91.8, kg, 02/23/19 17:03:00 EST, . 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
--- OUTSIDE RECORDS SUMMARY | 2023-02-09 22:40 | XMS_ITS | Continuity of Care Document ---
Author Name Unknown Organization [facility] ter Address [address] [place] [address]- Care Team Providers Care Health Insurance Assessor Name Role Phone Jaki Bishop MD Primary Care Physician Encounter [facility] Date(s): 02/07/21 - 02/09/[address] [address]- Discharge Disposition: A-D/C Home Attending Physician: Ted Díaz MD Admitting Physician: Dain Mcguire MD Referring [...] to COVID vaccine 2Admin Note: VIS GIVEN [id number] 3Admin Note: VIS GIVEN 2008- 4Admin Note: [...] oral tablet 12.5 mg, Tablet, By Mouth, 02/09/21 9:00:00 EST Start Date: 02/09/21 Stop Date: 02/09/21 Status: Completed Coreg 12.5 mg oral tablet 12.5 mg, 1, tablet, By Mouth, 2 times a day, # 60 tablet, Refills 5, Tot. Refills 5, Maintenance, 02/06/21 19:54:00 EST, Route to Pharmacy Electronically, [facility] [place], [place] - [id number], Partial fill upon patient request if the prescri... Start Date: 02/06/21 Status: Ordered doxycycline monohydrate 100 mg oral capsule = 100 mg, By Mouth, Every 12 hours, for 5 days, # 10 capsule, 0 Refills, Acute 02/14/21 15:27:00 EST, 02/09/21 15:27:00 EST, Capsule, [facility], Partial fill upon patient request if the prescription is for a schedule II opioid drug., 16... Start Date: 02/09/21 Stop Date: 02/14/21 Status: Ordered Insulin Lispro KwikPen 100 units/mL [...] mL, 5 Refills, Maintenance, 02/06/21 19:54:00 EST, [place], [place] - [id number], Partial fill upon patient request if the prescription is for a schedule II opioid d... Start Date: 02/06/21 Stop Date: 08/05/21 Status: Ordered loratadine 10 mg oral tablet 10 mg, 1, tablet, By Mouth, Daily, # 30 tablet, Refills 0, Tot. Refills 0, Maintenance, 11/28/20 9:25:00 EDT, Route to Pharmacy Electronically, [facility] 3, Partial fill upon patient [...] a day, # 60 tablet, 0 Refills, [facility], 167.64, cm, 11/27/20 22:30:00 EDT, Height, 98.5, kg, 10/22/20 17:50:00 EDT, Dry Weight Start Date: 01/08/21 Status: Ordered Nicotine 2 mg gum = 2 mg, Chew, Every 2 hours, PRN Other, for 6 week(s), Nicotine Cravings, # 40 each, 1 Refills, Acute 02/20/21 9:25:00 EST, 11/28/20 9:25:00 EDT, Gum, [facility] 3, Partial fill upon patient request if the prescription is for a schedule II... Start Date: 11/28/20 Stop Date: 02/20/21 Status: Ordered olanzapine 20 mg oral tablet [...] 0 Refills, Maintenance,02/06/21 19:56:00 EST, CR Capsule, [place], [place] - [id number], Partial fill upon patient request if the [...] 0 Refills, Maintenance, 11/28/20 9:27:00 EDT, Nasal Sims, [facility] 3, Partial fill upon patient [...] 5 Refills, Maintenance, 02/06/21 19:56:00 EST, Tablet, [facility] [place], [place] - [id number], Partial fill upon patient request if the [...] Active H/O tubal ligation(Confirmed) [facility] Extension Service Agent[facility] [phone](Confirmed) Active History of cholecystectomy(Confirmed) Active Hypertension(Confirmed) Active Incisional hernia(Confirmed) Active Nicotine dependence(Confirmed) Active Obese class II(Confirmed) Active Obesity (BMI 30.0-34.9)(Confirmed) Active Pulmonary HTN, Severe(Confirmed) Active Steatohepatitis (w/Stage III Fibrosis, Liver Biopsy 05/2012)(Confirmed) Active Heart failure with reduced e jection fraction(Confirmed) Active Results Radiology Reports * Exam Date Time Procedure Performing Provider Status 02/06/21 6:30 PM Chest Portable Lisa Cabral; Aut h (Verified) Notes: (Chest Portable) Reason For Exam: Shortness of Breath RESULT: Chest Portable Chest Portable Hx of Present Illness: pt started having weakness, sob and vomiting blood. pt states blood sugars have been elevated.; Reason: Shortness of Breath; Clinical Question(s): CHF COMPARISON: Chest 10/09/2020 FINDINGS: LINES AND TUBES: None. LUNGS AND PLEURA: Patchy groundglass opacities in the central lungs. Engorged pulmonary vascularity. No pleural effusion. No pneumothorax. HEART, MEDIASTINUM AND MICHELLE: Cardiomegaly. Normal upper mediastinal and hilar contour. BONES AND SOFT TISSUES: No acute abnormality. Embolic coils in the upper abdomen. IMPRESSION: Central groundglass pulmonary opacities with cardiomegaly. Findings could represent pulmonary alveolar edema or multifocal infection. WSN: [id number] Ordering Physician: Stephanie Mak Dictated By: Alejandro Wren MD Dictated Date/Time: 02/06/21 7:01 pm Reviewed By: Alejandro Wren MD Signed By: Alejandro Wren MD Signed Date/Time: 02/06/21 7:01 pm Transcribed By: YAIR Transcribed Date/Time: 02/06/21 6:57 pm Vital Signs Most recent to oldest [Reference Range]: 1 2 3 Height 164 cm (02/09/21 2:08 PM) 164 cm (02/09/21 7:59 AM) 164 cm (02/09/21 2:00 AM) Weight 94.4 kg (02/09/21 6:11 AM) 94.1 kg (02/08/21 6:00 AM) 97.4 kg (02/07/21 3:02 PM) Oxygen Saturation [94-100 %] 93 % *L* (02/09/21 2:08 PM) 94 % (02/09/21 7:59 AM) 91 % *L* (02/09/21 2:00 AM) Pulse Rate [55-90 bpm] 78 bpm (02/09/21 2:08 PM) 87 bpm (02/09/21 9:35 AM) 87 bpm (02/09/21 7:59 AM) Body Mass Index [18.5-24.99] 36.21 *>HHI* (02/07/21 3:02 PM) Blood Pressure [90-138/55-84 mm Hg] 132/92mm Hg (02/09/21 2:08 PM) 103/73mm Hg (02/09/21 9:35 AM) 103/73mm Hg (02/09/21 7:59 AM) Respiratory Rate [16-30 br/min] 18 br/min (02/09/21 2:08 PM) 18 br/min (02/09/21 7:59 AM) 20 br/min (02/09/21 2:00 AM) Temperature [96.8-100.4 DegF] 97.6 DegF (02/09/21 2:08 PM) 97.8 DegF (02/09/21 7:59 AM) 97.3 DegF (02/09/21 2:00 AM) Liters per Minute 3 L/min (02/08/21 7:41 AM) 3 L/min (02/07/21 2:33 PM) 3 L/min (02/07/21 1:25 PM) Mode of Delivery (Oxygen) Room air (02/09/21 2:08 PM) Room air (02/09/21 7:59 AM) Room air (02/09/21 2:00 AM) Blood pressure sites Arm, right (02/09/21 2:08 PM) Arm, right (02/09/21 7:59 AM) Arm, right (02/09/21 2:00 AM) Temperature Route Temporal (02/09/21 2:08 PM) Femoral (02/09/21 7:59 AM) Temporal (02/09/21 2:00 AM) Dry Weight 97.4 kg (02/07/21 3:02 PM) Weight Obtained Via Bed scale (02/09/21 6:11 AM) Bed scale (02/08/21 6:00 AM) Social History Social History Type Response Smoking Status 10 or more cigarette s (1/2 pack or more)/day in last 30 days; Interested in cessation: No; Patient wants NRT during admission No;Never; Type: Cigarettes; Exposure to Secondhand Smoke: Yes; Number of years: 30; entered on: 02/07/21 Sex
--- OUTSIDE RECORDS SUMMARY | 2023-02-09 22:40 | XMS_ITS | Continuity of Care Document ---
Author Name Unknown Organization [facility] Address [address] [place] [address]- Care Team Providers Care Medical Chemist Name Role Phone Dario HAYDEN, Jaki Primary Care Physician [facility] Date(s): 07/15/22 - 08/14/[address] [address]- Allergies, Adverse Reactions, Alerts Substance Reaction Severity [...] to COVID vaccine 2Admin Note: VIS GIVEN [id number] 3Admin Note: VIS GIVEN 2008-12 4Admin Note: vis 5Admin Note: vis 02/06/08 Medications albuterol 90 mcg/inh inhalation powder 2 puffs, Inhalation, Every 4 hours, PRN as needed, PRN Wheezing, # 1 each, 1 Refills, Maintenance, 06/28/22 14:49:00 EDT, Powder, [facility] [id number], Partial fill upon patient request if the [...] 07/16/22 16:04:00 EDT, Route to Pharmacy Electronically, [facility] [id number], Partialfill upon patient request if the prescription is fo... Start Date: 07/16/22 Status: Ordered benztropine 1 mg oral tablet 0.5 mg, 0.5, tablet, By Mouth, 2 times a day, # 30 tablet, Refills 3, Tot. Refills 3, Maintenance, 04/29/22 14:29:00 EST, Route to Pharmacy Electronically, [facility] [id number], Partial fill upon patient request if the [...] Replace Required Details, Route to Pharmacy Electronically, [facility], 160, cm, 07/26/22 12:51:... Start Date: 07/30/22 Status: Ordered cloNIDine 0.1 mg oral tablet 0.1 mg, 1, tablet, By Mouth, Daily, # 30 tablet, Refills 3, Tot. Refills 3, Maintenance, 04/29/22 14:29:00 EST, Route to Pharmacy Electronically, [place] - [id number], Partial fill upon patient request if the prescription is... Start Date: 04/29/22 Stop Date: 08/27/22 Status: Ordered Creon 12,000 units oral delayed release capsule 1 capsule, By Mouth, 3 times a day, # 90 capsule, 3 Refills, Maintenance, 04/29/22 14:37:00 EST, ECCapsule, [place], [place] - [id number], Partial fill upon patient request if the [...] mL, 1 Refills, Maintenance, 07/22/22 15:51:00 EDT, [facility], 15, TAKE 30 ML BY MOUTH two (2) times a day, 160, cm, 07/21/22 10:57:00 EDT, Height, 89.2, kg, 07/21/22 3:29:00 EDT, Dry Weight Start Date: 07/22/22 Status: Ordered Lantus Solostar Pen 100 units/mL subcutaneous solution = 6 units, Subcutaneous Injection, Daily in AM, # 10 mL, 2 Refills, Maintenance, 04/29/22 14:34:00 EST, Solution, [facility] [place], [place] - [id number], Partial fill upon patient request if the prescription is for a schedule II opioid drug.,... Start Date: 04/29/22 Status: Ordered multivitamin Multiple Vitamins oral tablet 1 tablet, By Mouth, Daily, # 90 tablet, 1 Refills, Maintenance, 04/02/22 16:44:00 EST, Tablet, [facility] [place] - [id number], Partial fill upon patient request if the [...] 04/29/22 14:39:00 EST, Route to Pharmacy Electronically, [facility] [place] - [id number], Partial fill upon patient request if the prescription... Start Date: 04/29/22 Stop Date: 08/27/22 Status: Ordered risperiDONE 3 mg oral tablet 3 mg, 1, tablet, By Mouth, Daily at bedtime, # 30 tablet, Refills 3, Tot. Refills 3, Maintenance, 04/29/22 14:39:00 EST, Route to Pharmacy Electronically, [facility] [place] - [id number], Partial fill upon patient request if the prescri... Start Date: 04/29/22 Status: Ordered thiamine 100 mg oral tablet 100 mg, 1, tablet, By Mouth, Daily, for 30 days, # 30 tablet, Refills 3, Tot. Refills 3, Acute 08/27/22 14:40:00 EDT, 04/29/22 14:40:00 EST, Route to Pharmacy Electronically, [facility] [place] - [id number], Partial fill upon patient re... Start Date: 04/29/22 Stop Date: 08/27/22 Status: Ordered tiotropium 2.5 mcg/inh inhalation aerosol 2 puffs, Inhalation, Daily, # 1 each, 5 Refills, Maintenance, 06/28/22 14:48:00 EDT, Inhaler, [facility] [place] - [id number], Partial fill upon patient request if the [...] Personnel Name: Lawrence Hendrix Position: [facility] RN Supv Member Role: Primary Care Nurse Name: Rufino Lloyd RN Position: [facility] RN Member Role: Primary Care Nurse Name: Cristina Carpenter RN Position: [facility] RN Member Role: Primary Care Nurse Name: Rosette Noriega RN Position: [facility] RN Member Role: Primary Care Nurse Name: Mary Hidalgo RN Position: [facility] JOHNO RN Member Role: Primary Care Nurse Name: Sissy Duran RN Position: [facility] AMB Nurse Member Role: Primary Care Nurse Name: Rohit Zavaleta RN Position: [facility] RN Member Role: Primary Care Nurse Name: Erlinda Hartman NP Position: [facility] Associate Professional Member Role: Primary Care Nurse Address: Address: [address] [place] [address]- Name: Shante Solis RN Position: [facility] RN Member Role: Primary Care Nurse Name: Joshua Prakash RN Position: [facility] RN Member Role: Primary Care Nurse Name: Bettie Vanegas RN Position: [facility] SN RN Member Role: Primary Care Nurse Name: Jay Marroquin RN Position: [facility] RN Member Role: Primary Care Nurse Name: Adrianna Church RN Position: [facility] RN Member Role: Primary Care Nurse Name: Sue Purdy RN Position: [facility] RN Member Role: Primary Care Nurse Name: Hector Perez RN Position: [facility] RN Member Role: Primary Care Nurse Name: Aleena Vizcaino RN Position: [facility] RN Member Role: Primary Care Nurse Name: Kacey Wilhelm RN Position: [facility] RN Member Role: Primary Care Nurse Name: Leslie Malloy RN Position: [facility] RN Member Role: Primary Care Nurse Name: Morena Easton RN Position: [facility] RN Member Role: Primary Care Nurse Name: Yesenia Hu LPN Position: [facility] RN Member Role: Primary Care Nurse Name: Joaquina Herrera RN Position: [facility] RN Member Role: Primary Care Nurse Name: Diego Bell RN Position: [facility] RN Member Role: Primary Care Nurse Name: Ese Grey Position: [facility] RN Member Role: Primary Care Nurse Name: Chela Najera RN Position: [facility] RN Member Role: Primary Care Nurse Name: Tootie Gonzalez RN Position: [facility] RN Member Role: Primary Care Nurse Name: Nancy Monte RN Position: [facility] RN Member Role: Primary Care Nurse Name: Marilee Starkey Position: [facility] RN Member Role: Primary Care Nurse Name: Silvina Dodd RN Position: [facility] RN Member Role: Primary Care Nurse Name: Flaco Clifford DO Position: [facility] Renal MD Member Role: Lifetime Consulting Physician Address: Address: [address] [place] [address] [address] [facility] [place] [place] [address]- Name: Marilee Richardson RN Position: [facility] RN Member Role: Primary Care Nurse Name: Rufino Johnson RN Position: [facility] RN Member Role: Primary Care Nurse Name: Jovita Camargo RN Position: [facility] RN Member Role: Primary Care Nurse Name: Ju Zhu Position: [facility] RN Member Role: Primary Care Nurse Name: Ester Palomares Position: [facility] RN Member Role: Primary Care Nurse Name: Emma Colbert RN Position: [facility] RN Supv Member Role: Primary Care Nurse Name: Hallie Gambino RN Position: [facility] Onco RN Member Role: Primary Care Nurse Name: Maya Ambriz RN Position: [facility] RN Member Role: Primary Care Nurse Name: Bhavna Rendon LPN Position: [facility] RN Member Role: Primary Care Nurse Name: Luis Burton RN Position: [facility] RN Member Role: Primary Care Nurse Name: Jaki Bishop MD Position: [facility] Physician - Primary Care Member Role: PCP Address: Address: [address] [place] [address]- Name: Lucian Krause RN Position: [facility] RN Member Role: Primary Care Nurse Name: Isaiah Combs RN Position: [facility] RN Member Role: Primary Care Nurse Name: Leslie Ward RN Position: [facility] RN Member Role: Primary Care Nurse Name: Jacki Gomes RN Position: [facility] RN Member Role: Primary Care Nurse Name: Ximena Saab RN Position: [facility] RN Member Role: Primary Care Nurse Name: Mar Brothers RN Position: [facility] RN Member Role: Primary Care Nurse Name: Ivette Shankar RN Position: [facility] RN Supv Member Role: Primary Care Nurse Name: Laura Mary RN Position: [facility] SN RN Member Role: Primary Care Nurse Name: Mary Guillen RN Position: [facility] RN Member Role: Primary Care Nurse Name: Octavio Box RN Position: [facility] RN Member Role: Primary Care Nurse Name: Nazia Tapia RN Position: [facility] RN Member Role: Primary Care Nurse Name: Pat Jackson RN Position: [facility] RN Member Role: Primary Care Nurse Name: Caren Hernandez RN Position: [facility] RN Supv Member Role: Primary Care Nurse Name: Perri Bryant RN Position: [facility] RN Member Role: Primary Care Nurse Name: Alba Toro RN Position: [facility] RN Member Role: Primary Care Nurse Name: Nely Wong RN Position: [facility] RN Member Role: Primary Care Nurse Name: Erica Brandon RN Position: [facility] RN Member Role: Primary Care Nurse Name: Adrianna Gonzalez RN Position: [facility] RN Member Role: Primary Care Nurse Name: Annmarie Feldman RN Position: [facility] PCO w/OE and EZ Script Member Role: Primary Care Nurse Name: Chinyere Espinoza RN Position: [facility] RN Member Role: Primary Care Nurse Name: Teresita Diallo RN Position: [facility] RN Member Role: Primary Care Nurse Name: Tennille Mcgarry RN Position: [facility] Hospital Environmental Journalist Member Role: Primary Care Nurse Name: Vicky Salazar RN Position: [facility] RN Member Role: Primary Care Nurse Name: Spencer Jameson RN Position: [facility] RN Member Role: Primary Care Nurse Name: Jalen Mullins Position: [facility] RN Member Role: Primary Care Nurse Care Team Related Persons Name: MARYANNE KELLER Address: [address] [place] [address] Name: MARYANNE KELLER Address: home [address] [place] [address] Name: MARYANNE KELLER Address: [address] [place] [address] Name: GEORGIA KELLER Address: [place] [address] Name: BALDEV POLANCO Address: [place] [address]
--- OUTSIDE RECORDS SUMMARY | 2023-02-09 22:40 | XMS_ITS | Continuity of Care Document ---
Author Name Unknown Organization [facility] Address [address] [place] [address]- Care Team Providers Care Hot Car Operator Name Role Phone Jaki Bishop MD Primary Care Physician [phone] [facility]counter [facility] Date[facility]s): 09/11/21 - 10/11/[address] [address] Allergies, Adverse Reactions, Alerts Substance [...] to COVID vaccine 2Admin Note: VIS GIVEN [id number] 3Admin Note: VIS GIVEN 2008- 4Admin Note: vis 5Admin Note: vis 02/06/08 Medications Abilify 10 mg oral tablet 10 mg, 1, tablet, By Mouth, Daily, # 90 tablet, Refills 3, Tot. Refills 3, Maintenance, 07/07/21 8:56:00 EDT, Route to Pharmacy Electronically, [facility] [id number], Partialfill upon patient request if the prescription [...] 07/07/21 8:56:00 EDT, Route to Pharmacy Electronically, [facility] [id number], Partial fill upon patient request if the prescri... Start Date: 07/07/21 Status: Ordered Comfort EZ Pen Whiteside 31 gauge x /16 USE TO inject insulin 4 (FOUR) TIMES DAILY Start Date: 07/03/21 Status: Ordered Coreg 6.25 mg oral tablet 6.25 mg, 1, tablet, By Mouth, 2 times a day, # 180 tablet, Refills 3, Tot. Refills 3, Maintenance, 07/07/21 8:56:00 EDT, Route to Pharmacy Electronically, [facility] [id number], Partial fill upon patient request if the prescri... Start Date: 07/07/21 Status: Ordered Daily Multiple Vitamins oral tablet 1 tablet, By Mouth, Daily, # 90 tablet, 3 Refills, Maintenance, 07/07/21 8:56:00 EDT, Tablet, [facility] [id number], Partial fill upon patient request if the prescription is for a schedule II opioid drug., 1 tablet By Mouth Da... Start Date: 07/07/21 Status: Ordered divalproex sodium 250 mg oral enteric coated tablet 1 tablet = 250 mg, By Mouth, Daily in AM, # 90 tablet, 3 Refills, Maintenance, 07/07/21 8:56:00 EDT, Tablet, [facility] [id number], Partial fill upon patient request if the prescription is for a schedule II opioid drug., 167,... Start Date: 07/07/21 Status: Ordered divalproex sodium 500 mg oral enteric coated tablet 1 tablet = 500 mg, By Mouth, Daily at bedtime, # 90 tablet, 3 Refills, Maintenance, 07/07/21 8:56:00 EDT, Tablet, [facility] [id number], Partial fill upon patient request if the prescription is for a schedule II opioid drug.,... Start Date: 07/07/21 Status: Ordered Eucerin Unscented topical lotion See Instructions, Apply daily as directed to dry skin. 16 oz, # 1 each, 3 Refills, Maintenance, 07/07/21 9:02:00 EDT, [facility] [id number], Partial fill upon patient requestif the prescription [...] 07/07/21 8:56:00 EDT, Route to Pharmacy Electronically, [facility] [id number], Partial fill upon patient request if the p... Start Date: 07/07/21 Status: Ordered gabapentin 100 mg oral capsule 200 mg, 2, capsule, By Mouth, Daily at bedtime, # 180 capsule, Refills 3, Tot. Refills 3, Maintenance, 07/07/21 8:56:00 EDT, Route to Pharmacy Electronically, [facility] [id number], Partial fill upon patient request if the pre... Start Date: 07/07/21 Status: Ordered guaiFENesin 100 mg/5 mL oral liquid 5 mL = 100 mg, By Mouth, Every 4 hours, PRN for cough, # 300 mL, 0 Refills, Acute 07/07/22 9:05:00 EDT, 07/07/21 9:02:00 EDT, Liquid, [facility] [id number], Partial fill uponpatient request if the prescription [...] a day, # 581 mL, 3 Refills, [facility], 10, TAKE 30mls BY MOUTH 2 (two) times a day, 167, cm, 07/07/21 8:39:00 EDT, Height, 95.6, kg, 06/29/21 18:39:00 EDT, Dry Weight Start Date: 08/10/21 Status: Ordered Lantus Solostar Pen 100 units/mL subcutaneous solution = 16 units, Subcutaneous Infusion, Daily, # 15 mL, 5 Refills, Maintenance, 09/11/21 17:25:00 EDT, [facility] [id number], Partial fill upon patient request if the prescriptionis for a schedule II opioid drug., 167, cm, ... Start Date: 09/11/21 Status: Ordered loratadine 10 mg oral tablet 10 mg, 1, tablet, By Mouth, Daily, # 90 tablet, Refills 3, Tot. Refills 3, Maintenance, 07/07/21 8:56:00 EDT, Route to Pharmacy Electronically, [facility] [id number], Partialfill upon patient request if the prescription is fo... Start Date: 07/07/21 Status: Ordered magnesium oxide 400 mg oral tablet 1 tablet = 400 mg, By Mouth, 2 times a day, # 180 tablet, 3 Refills, Maintenance, 07/07/21 8:56:00 EDT, Tablet, [facility] [id number], Partial fill upon patient request if the prescription is for a schedule II opioid drug., 16... Start Date: 07/07/21 Status: Ordered melatonin 3 mg oral tablet 1 tablet = 3 mg, By Mouth, Daily at bedtime, PRN Insomnia, # 90 tablet, 3 Refills, Maintenance, 07/07/21 8:56:00 EDT, Tablet, [facility] [id number], Partial fill upon patientrequest if the prescription is for a schedule II op... Start Date: 07/07/21 Status: Ordered nicotine 2 mg oral transmucosal lozenge 1 lozenge = 2 mg, By Mouth, Every hour, PRN Other, Nicotine Withdrawal Symptoms (not to exceed 20 lozenges per day), # 72 lozenge, 3 Refills, Maintenance, 07/07/21 8:56:00 EDT, Lozenge, [place], [place] - [id number], Partial fill upon... Start Date: 07/07/21 Status: Ordered pancrelipase 10,000 units-32,000 units-42,000 units oral delayed release capsule 1 capsule, By Mouth, 3 times a day, with each meal and snack, # 270 capsule, 3 Refills, Maintenance, 07/07/21 8:56:00 EDT, CR Capsule, [place], [place] - [id number], Partial fill upon patient request if the [...] Weight Start Date: 07/07/21 Status: Ordered Pen Whiteside, 31 G x 8 mm BD Ultra [...] 3 Refills, Maintenance, 07/07/21 8:56:00 EDT, Tablet, [facility], [place] - [id number], Partial fill upon patient request if theprescription [...] Active H/O tubal ligation(Confirmed) Active BHN/ CP Summer Nanny/Janet salvador [facility] [phone](Confirmed) Active Heart failure(Confirmed) Active History of cholecystectomy(Confirmed) [...]
--- OUTSIDE RECORDS SUMMARY | 2023-02-09 22:40 | XMS_ITS | Continuity of Care Document ---
Author Name Unknown Organization [facility] Address [address] [place] [address]- Care Team Providers Care Ground Operations Superintendent Name Role Phone Dario HAYDEN, Jaki Primary Care Physician [phone] [facility]counter [facility] Date[facility]s): 01/29/20 - 02/28/[address] [address]- Allergies, Adverse Reactions, Alerts Substance Reaction Severity [...] Given Permanently Refused 1Admin Note: VIS GIVEN [id number] 2Admin Note: VIS GIVEN 2008-12 3Admin Note: vis 4Admin Note: vis 02/06/08 Medications acetaminophen 325 mg oral tablet 1, tablet, By Mouth, 4 times a day, PRN, no MORE THAN 4 TABLETS PER DAY., # 60 tablet, Refills 1, Tot. Refills 0, Acute, NEEDED, 11/12/19 14:29:00 EDT, Route to Pharmacy Electronically, [facility], 168, cm, 11/12/19 9:05:00 EDT, [...] 02/12/20 15:48:00 EST, Route to Pharmacy Electronically, [facility] - [place], [place] - [id number], Partial fill upon patient request, 168, cm, [...] Replace Required Details, Route to Pharmacy Electronically, [place], [place] - [id number], 168, cm, 12/17/19... Start Date: 02/01/20 Status: [...] 1 Refills, Maintenance, 08/07/19 14:23:00 EDT, Tablet, [place], [place] -, 1 tablet By Mouth Daily, [...] 5 Refills, Maintenance, 08/27/19 7:36:00 EDT, Tablet, [facility] - [place], [place] -, this is an increased, 1 [...] Active H/O tubal ligation(Confirmed) Active BHN/BH CP Smoke Jumper Supervisor/Janet salvador [facility] [phone](Confirmed) Active History of cholecystectomy(Confirmed) Active Hypertension(Confirmed) Active [...]
--- OUTSIDE RECORDS SUMMARY | 2023-02-09 22:40 | XMS_ITS | Continuity of Care Document ---
Author Name Unknown Organization [facility] ter Address [address] [place] [id number] Care Team Providers Care [employer] Supervisor Name Role Phone Dario HAYDEN, Jaki Primary Care Physician Encounter [facility] Date(s): 10/28/19 - 12/17/[address] [address]- [facility] Discharge Disposition: A-Transfer VNA/Home Health Attending Physician: Prosper Lugo MD Admitting Physician: Jf Rousseau MD, Abdoulaye Referring Physician: Not on Staff, Referring MD [...] Given Permanently Refused 1Admin Note: VIS GIVEN [id number] 2Admin Note: VIS GIVEN 2008- 3Admin Note: vis 4Admin Note: vis 02/06/08 Medications acetaminophen 325 mg oral tablet 1, tablet, By Mouth, 4 times a day, PRN, no MORE THAN 4 TABLETS PER DAY., # 60 tablet, Refills 1, Tot. Refills 0, Acute, NEEDED, 11/12/19 14:29:00 EDT, Route to Pharmacy Electronically, [facility], 168, cm, 11/12/19 9:05:00 [...] Tablet Start Date: 12/17/19 Status: Ordered Coreg 3.125 mg oral tablet 6.25 mg, 2, tablet, By Mouth, 2 times a day, Refills 0, Maintenance, 12/17/19 12:13:00 EDT Start Date: 12/17/19 Status: Ordered Docusate = 100 mg, 2 [...] EDT, Syrup Start Date: 12/17/19 Status: Ordered loratadine 10 mg oral tablet Refills 0, Maintenance, 10/10/19 23:41:00 EDT Start Date: 10/10/19 Status: Ordered Maalox Plus Liquid 30 mL, By Mouth, Daily, PRN Dyspepsia, 0 Refills, Maintenance, 12/17/19 11:57:00 EDT, Suspension Start Date: 12/17/19 Status: Ordered MiraLax = 17 Gm, By Mouth, Daily, 0 Refills, Maintenance, 10/11/19 0:34:00 EDT Start Date: 10/11/19 Status: Ordered multivitamin Multiple Vitamins oral tablet 1 tablet, By Mouth, Daily, # 90 tablet, 1 Refills, Maintenance, 08/07/19 14:23:00 EDT, Tablet, [facility], 1 tablet By Mouth Daily, 166, cm, [...] 5 Refills, Maintenance, 08/27/19 7:36:00 EDT, Tablet, [facility] - [place], [place] -, this is an increased, 1 [...] Active H/O tubal ligation(Confirmed) Active [facility] [employer]/Janet Pandey [phone](Confirmed) Active History of cholecystectomy(Confirmed) Active Hypertension(Confirmed) Active Incisional hernia(Confirmed) Active Nicotine dependence(Confirmed) Active Obesity (BMI 30.0-34.9)(Confirmed) Active Pulmonary HTN, Severe(Confirmed) Active Steatohepatitis (w/Stage III Fibrosis, Liver Biopsy 05/2012)(Confirmed) Active Heart failure with reduced e jection fraction(Confirmed) Active Results Orders for Microbiology Reports Name Date Blood Culture 12/08/19 Urine Culture (URINE CULTURE) 12/04/19 Blood Culture 12/04/19 Blood Culture #2 12/04/19 Microbiology Reports TEST:Blood Culture STATUS:Auth (Verified) BODY SITE: SOURCE:Blood COLLECTED DATE/TIME:12/08/19 5:17 AM Blood Culture SPECIMEN DESCRIPTION : BLOOD LA SPECIAL REQUESTS : NONE CULTURE : NO GROWTH 5 DAYS. REPORT STATUS : FINAL 12/13/2019 TEST:Urine Culture STATUS:Auth (Verified) BODY SITE: SOURCE:URINE COLLECTED DATE/TIME:12/04/19 10:31 PM Urine Culture SPECIMEN DESCRIPTION : URINE SPECIAL REQUESTS : NONE CULTURE : Mixed bacterial baldemar, indicative of urogenital contamination. REPORT STATUS : FINAL 2019 TEST:Blood Culture, Second Order STATUS:Auth (Verified) BODY SITE: SOURCE:Blood COLLECTED DATE/TIME:12/04/19 6:35 AM Blood Culture, Second Order SPECIMEN DESCRIPTION : BLOOD RT HAND SPECIAL REQUESTS : CRITICAL VALUE CALLED AND VERIFIED BY READBACK FOR: GRAM NEGATIVE RODS TO [id number] TO D4 AT 2049 ON [id number] BY 892 CULTURE : ESCHERICHIA COLI FOR SUSCEPTIBILITY RESULT REFER TO BLOOD CULTURE Escherichia coli was identified by multi-plex PCR REPORT STATUS : FINAL 12/07/2019 TEST:Blood Culture STATUS:Auth (Verified) BODY SITE: SOURCE:Blood COLLECTED DATE/TIME:12/04/19 6:18 AM Blood Culture SPECIMEN DESCRIPTION : BLOOD RT ARM SPECIAL REQUESTS : CRITICAL VALUE CALLED AND VERIFIED BY READBACK FOR: GRAM NEGATIVE RODS TO [id number] TO D4 AT 2215 ON [id number] BY 892 CULTURE : ESCHERICHIA COLI REPORT STATUS : FINAL 12/07/2019 ORGANISM ESCHERICHIA COLI METHOD MIN. INHIB. CONC. (MCG/ML) AMPICILLIN RESISTANT AMPICILLIN/SULBACTAM INTERMEDIATE AMOXICILLIN/CLAVULAN SUSCEPTIBLE CEFAZOLIN SUSCEPTIBLE CEFEPIME SUSCEPTIBLE CEFTRIAXONE SUSCEPTIBLE CIPROFLOXACIN SUSCEPTIBLE ERTAPENEM SUSCEPTIBLE GENTAMICIN SUSCEPTIBLE LEVOFLOXACIN SUSCEPTIBLE MEROPENEM SUSCEPTIBLE PIPERACILLIN/TAZOBAC SUSCEPTIBLE TRIMETH/SULFAMETHOX RESISTANT TETRACYCLINE RESISTANT Radiology Reports * Exam Date Time Procedure Performing Provider Status 12/04/19 6:36 AM Chest Portable Afsaneh Bergeron ( Verified) Notes: (Chest Portable) Reason For Exam: Fever RESULT: Chest Portable Chest Portable performed semiupright Reason: Fever; Clinical Question(s): Pneumonia COMPARISON: Chest radiograph 11/12/2019 FINDINGS: LINES AND TUBES: None. LUNGS AND PLEURA: Left greater than right patchy hazy opacification with bronchovascular congestion and prominent interstitial markings. No definite pleural effusion. No pneumothorax. HEART, MEDIASTINUM AND MICHELLE: Heart is normal in size. Normal mediastinal and hilar contour. BONES AND SOFT TISSUES: No acute abnormality. Redemonstrated intravascular embolic material overlying the left upper quadrant IMPRESSION: Bronchovascular congestion and prominent interstitial markings suggest developing pulmonary edema. I have personally reviewed the images and I agree with this report. WSN: [id number] Ordering Physician: Chela Turner Dictated By: Trey Louie DO Dictated Date/Time: 12/04/19 12:49 p Reviewed By: Rick Harrell MD Signed By: Rick Harrell MD Signed Date/Time: 12/04/19 12:54 pm Transcribed By: YAIR Transcribed Date/Time: 12/04/19 8:50 am * Exam Date Time Procedure Performing Provider Status 11/17/19 10:46 AM Abdomen AP Wilmar Patel (Verif ied) Notes: (Abdomen AP) Reason For Exam: Distention RESULT: XR Abdomen AP XR Abdomen AP , performed supine at 10:50 AM Reason: Distention; Clinical Question(s): Obstruction COMPARISON: Multiple prior abdominal radiographs, the most recent of which is dated 03/17/[address] of the abdomen and pelvis dated 03/19/2016. FINDINGS: Vascular coils are seen in the left upper quadrant. A catheter overlies the pelvis. Small bowel loops in the left mid abdomen are mildly dilated measuring up to 3.7 cm. Air and stool are seen in the colon, extending to the rectum.No abnormal stool retention. Coarse calcifications are seen in the right hemipelvis, likely reflecting known calcified fibroids. No acute bony abnormalities. IMPRESSION: Mildly dilated loops of small bowel in the left mid abdomen, which may reflect focal ileus or partial small bowel obstruction. WSN: [id number] Ordering Physician: Eduardo Rivero Dictated By: Betina Ward MD Dictated Date/Time: 11/17/19 1:43 pm Reviewed By: Betina Ward MD Signed By: Betina Ward MD Signed Date/Time: 11/17/19 1:43 pm Transcribed By: YAIR Transcribed Date/Time: 11/17/19 1:40 pm * Exam Date Time Procedure Performing Provider Status 11/12/19 9:45 AM Chest Portable Rupesh Lopez (Verified) Notes: (Chest Portable) Reason For Exam: Fever RESULT: Chest Portable AP upright portable chest dated November 12, 2019 at 0841 hours. Comparison films are from October 27, 2019. HISTORY: Fever. FINDINGS: The cardiac silhouette is within normal limits for size. Increased interstitial markings are present bilaterally. These have increased when compared with the previous study. Some focal linear consolidation in the midlungs left greater then right is demonstrated. Elevation of the right armaan diaphragm is increased. Degenerative changes are noted in the spine. Partially imaged is intravascular embolic material theleft upper quadrant. IMPRESSION: Findings are consistent with a developing interstitial edema pattern. Some associated bilateral atelectasis. Examination 17545. Thank you for allowing me to participate in the care of this patient. WSN: [id number] Ordering Physician: Cathy Ceballos Dictated By: Miguel Lopez MD Dictated Date/Time: 11/12/19 10:02 a Reviewed By: Miguel Lopez MD Signed By: Miguel Lopez MD Signed Date/Time: 11/12/19 10:02 am Transcribed By: YAIR Transcribed Date/Time: 11/12/19 10:01 am * Exam Date Time Procedure Performing Provider Status 10/30/19 3:09 PM Knee 1 or 2 Views Right Archambeau, Do nna; Auth (Verified) Notes: (Knee 1 or 2 Views Right) Reason For Exam: Pain RESULT: Knee 1 or 2 Views Right Knee 2 Views Right Reason: Pain; Clinical Question(s): Arthritis COMPARISON: None. FINDINGS: There is no evidence of acute or healing fracture, dislocation or bone lesion. Mild tricompartmental degenerative osteoarthritis but no evidence of osteochondral defect or intra-articular loose body. Mild spurring of the quadriceps tendon. No evidence of joint effusion. IMPRESSION: Mild tricompartmental degenerative osteoarthritis but no acute abnormality. I have personally reviewed the images and I agree with this report. WSN: [id number] Ordering Physician: Alejandro Burks Dictated By: Flaco Kay MD Dictated Date/Time: 10/30/19 4:19 pm Reviewed By: Rick Harrell MD Signed By: Rick Harrell MD Signed Date/Time: 10/30/19 4:24 pm Transcribed By: YAIR Transcribed Date/Time: 10/30/19 3:53 pm * Exam Date Time Procedure Performing Provider Status 10/30/19 3:09 PM Ankle Min 3 Views Right Archambeau, Do nna; Auth (Verified) Notes: (Ankle Min 3 Views Right) Reason For Exam: Pain RESULT: Ankle Min 3 Views Right Ankle 3 Views Right Reason: Pain; Clinical Question(s): Fracture. COMPARISON: None. FINDINGS: No evidence of acute or healing fracture or bone lesion. The ankle mortise is intact though there is mild degenerative joint space narrowing and osseous spurring. Irregularity of the medial malleolus is likely the sequelae of prior trauma. Mild soft tissue swelling about the ankle, most pronounced overlying the lateral malleolus. IMPRESSION: 1. No radiographic evidence of acute osseous abnormality. 2. Mild degenerative changes of the ankle. 3. Mild soft tissue swelling about the ankle, most pronounced over the lateral malleolus may be related to a soft tissue injury. I have personally reviewed the images and I agree with this report. WSN: [id number] Ordering Physician: Luz Escalante Dictated By: Flaco Kay MD Dictated Date/Time: 10/30/19 4:18 pm Reviewed By: Rick Harrell MD Signed By: Rick Harrell MD Signed Date/Time: 10/30/19 4:23 pm Transcribed By: YAIR Transcribed Date/Time: 10/30/19 3:50 pm * Exam Date Time Procedure Performing Provider Status 10/27/19 4:51 PM XR Hip w/Pelvis 1 View Right Sugar Denise; Auth (Verified) Notes: (XR Hip w/Pelvis 1 View Right) Reason For Exam: Pain RESULT: XR Hip w/Pelvis 1 View Right XR Hip w/Pelvis 1 View Right Reason: Pain; Clinical Question(s): Fracture; Hx of Present Illness: ams; Other Objective Findings:A OX1. DUNNE, good strength throughout. States right heel pain, small bruise noted. Face symmetric, no tongue deviation, speech clear. throughout. States right heel pain, small bruise noted. Face symmetric, no tongue deviation, speech clear. par } COMPARISON: 03/27/2011. FINDINGS: AP view of pelvis on with AP and frog leg view of right hip. There is no fracture or dislocation. Normal hips and sacroiliac joints. Normal soft tissues. IMPRESSION: No pelvic or hip fracture. No significant arthritic changes. WSN: [id number] Ordering Physician: Autumn Ramos Dictated By: Alejandro Wiley MD Dictated Date/Time: 10/27/19 4:56 pm Reviewed By: Alejandro Wiley MD Signed By: Alejandro Wiley MD Signed Date/Time: 10/27/19 4:56 pm Transcribed By: YAIR Transcribed Date/Time: 10/27/19 4:55 pm * Exam Date Time Procedure Performing Provider Status 10/27/19 4:51 PM Chest 2 Views Frontal and Lat Sugar Denise; Angelo (Verified) Notes: (Chest 2 Views Frontal and Lat) Reason For Exam: Shortness of Breath RESULT: Chest 2 Views Frontal and Lat Chest 2 Views Frontal and Lat Reason: Shortness of Breath; Clinical Question(s): CHF; Hx of Present Illness: ams; Other ObjectiveFindings: A OX1. DUNNE, good strength throughout. States right heel pain, small bruise noted. Face symmetric, no tongue deviation, speech clear. throughout. States right heel pain, small bruise noted. Face symmetric, no tongue deviation, speech clear. par } COMPARISON: X-ray from 05/02/2019. FINDINGS: LINES AND TUBES: None. LUNGS AND PLEURA: Central vascular markings are prominent and indistinct with perihilar interstitial opacity consistent with pulmonary edema. No definite pleural effusion. No pneumothorax. HEART, MEDIASTINUM AND MICHELLE: Mild prominence of the cardiac silhouette. Normal mediastinal and hilar contour. BONES AND SOFT TISSUES: No acute abnormality. IMPRESSION: Mild cardiac enlargement and pulmonary edema suggestive of CHF. No pneumonia. WSN: [id number] Ordering Physician: Autumn Ramos Dictated By: Alejandro Wiley MD Dictated Date/Time: 10/27/19 4:54 pm Reviewed By: Alejandro Wiley MD Signed By: Alejandro Wiley MD Signed Date/Time: 10/27/19 4:54 pm Transcribed By: YAIR Transcribed Date/Time: 10/27/19 4:52 pm Vital Signs Most recent to oldest [Reference Range]: 1 2 3 Height 168 cm (12/17/19 3:47 PM) 168 cm (12/17/19 11:29 AM) 168 cm (12/16/19 6:00 PM) Weight 94.5 kg (12/15/19 8:00 AM) 94.5 kg (12/15/19 6:24 AM) 93.5 kg (12/14/19 7:11 AM) Oxygen Saturation [94-100 %] 100 % (12/17/19 3:47 PM) 96 % (12/17/19 11:29 AM) 95 % (12/16/19 6:00 PM) Pulse Rate [55-90 bpm] 98 bpm *H* (12/17/19 3:47 PM) 101 bpm *H* (12/17/19 12:06 PM) 107 bpm *H* (12/17/19 11:29 AM) Body Mass Index [18.5-24.99] 33.13 *>HHI* (12/14/19 5:16 AM) 35.11 *>HHI* (12/06/19 2:18 AM) 35.61 *>HHI* (10/28/19 9:52 AM) Blood Pressure [90-138/55-84 mm Hg] 105/71mm Hg (12/17/19 3:47 PM) 120/81mm Hg (12/17/19 12:06 PM) 132/93mm Hg (12/17/19 11:29 AM) Respiratory Rate [16-30 br/min] 20 br/min (12/17/19 3:47 PM) 20 br/min (12/17/19 11:29 AM) 20 br/min (12/17/19 10:11 AM) Temperature [96.8-100.4 DegF] 98.6 DegF (12/17/19 3:47 PM) 97.6 DegF (12/17/19 11:29 AM) 98.6 DegF (12/16/19 6:00 PM) Liters per Minute 4 L/min (12/12/19 11:05 AM) 3 L/min (12/05/19 2:00 AM) 3 L/min (12/05/19 1:00 AM) Mode of Delivery (Oxygen) Room air (12/17/19 3:47 PM) Room air (12/17/19 11:29 AM) Room air (12/16/19 6:00 PM) Blood pressure sites Arm, left (12/17/19 3:47 PM) Arm, left (12/17/19 11:29 AM) Arm, left (12/16/19 1:31 PM) Temperature Route Oral (12/17/19 3:47 PM) Oral (12/17/19 11:29 AM) Oral (12/16/19 6:00 PM) Dry Weight 106.8 kg (10/28/19 9:52 AM) Weight Obtained Via Bed scale (12/15/19 6:24 AM) Bed scale (12/14/19 7:11 AM) Bed scale (12/14/19 5:16 AM) Mobility assistance Independent (12/05/19 8:35 PM) Independent (12/05/19 8:00 AM) Partial assistance (12/05/19 12:10 AM) Social History Social History Type Response Tobacco Use: 4 or less cigar ettes(less than 1/4 pack)/day in last 30 days. Started at age: 15 Years. Sex
--- OUTSIDE RECORDS SUMMARY | 2023-02-09 22:40 | XMS_ITS | Continuity of Care Document ---
Author Name Unknown Organization [facility] Address [address] [place] [address]- Care Team Providers Care Real Estate Transaction Manager Name Role Phone Jaki Bishop MD Primary Care Physician [facility] Date(s): 05/31/22 - 06/30/[address] [address]- Allergies, Adverse Reactions, Alerts Substance Reaction Severity [...] to COVID vaccine 2Admin Note: VIS GIVEN [id number] 3Admin Note: VIS GIVEN 2008- 4Admin Note: vis 5Admin Note: vis 02/06/08 Medications albuterol 90 mcg/inh inhalation powder 2 puffs, Inhalation, Every 4 hours, PRN as needed, PRN Wheezing, # 1 each, 1 Refills, Maintenance, 06/28/22 14:49:00 EDT, Powder, [facility] [id number], Partial fill upon patient request if the [...] 04/29/22 14:29:00 EST, Route to Pharmacy Electronically, [facility] [id number], Partial fill upon patient request if the prescr... Start Date: 04/29/22 Stop Date: 08/27/22 Status: Ordered cloNIDine 0.1 mg oral tablet 0.1 mg, 1, tablet, By Mouth, Daily, # 30 tablet, Refills 3, Tot. Refills 3, Maintenance, 04/29/22 14:29:00 EST, Route to Pharmacy Electronically, [facility] [id number], Partial fill upon patient request if the prescription is... Start Date: 04/29/22 Stop Date: 08/27/22 Status: Ordered Coreg 6.25 mg oral tablet 6.25 mg, 1, tablet, By Mouth, 2 times a day, # 60 tablet, Refills 3, Tot. Refills 3, Maintenance, 04/29/22 14:29:00 EST, Route to Pharmacy Electronically, [facility] [id number], Partial fill upon patient request if the prescri... Start Date: 04/29/22 Stop Date: 08/27/22 Status: Ordered Creon 12,000 units oral delayed release capsule 1 capsule, By Mouth, 3 times a day, # 90 capsule, 3 Refills, Maintenance, 04/29/22 14:37:00 EST, ECCapsule, [facility] [phone], Partial fill upon patient request if the prescription is for a schedule II opioid drug., 167,... Start Date: 04/29/22 Status: Ordered divalproex sodium 500 mg oral enteric coated tablet 1 tablet = 500 mg, By Mouth, 2 times a day, # 60 tablet, 3 Refills, Maintenance, 04/29/22 14:33:00 EST, Tablet, [facility] [id number], Partial fill upon patient request if the prescription is for a schedule II opioid drug., 16... Start Date: 04/29/22 Stop Date: 08/27/22 Status: Ordered folic acid 1 mg oral tablet 1, tablet, By Mouth, Daily, # 30 tablet, Refills 1, Maintenance, 06/01/22 16:34:00 EDT, Route to Pharmacy Electronically, [facility], 167, cm, 03/25/22 3:14:00 EST, Height, 113, [...] 0 Refills, Maintenance, 04/08/22 16:16:00 EST, Liquid, [place], [place] - [id number], Partial fill upon patient request if the [...] mL, 1 Refills, Maintenance, 06/03/22 16:20:00 EDT, [place], [place] - [id number], 20, TAKE 30mls BY MOUTH two (2) times a day, 167, cm, 03/25/22 3:14:00 EST, Height, 1... Start Date: 3/16/23 Status: Ordered Lantus Solostar Pen 100 units/mL subcutaneous solution = 6 units, Subcutaneous Injection, Daily in AM, # 10 mL, 2 Refills, Maintenance, 04/29/22 14:34:00 EST, Solution, [facility] [id number], Partial fill upon patient request if the prescription is for a schedule II opioid drug.,... Start Date: 04/29/22 Status: Ordered multivitamin Multiple Vitamins oral tablet 1 tablet, By Mouth, Daily, # 90 tablet, 1 Refills, Maintenance, 04/02/22 16:44:00 EST, Tablet, [facility] [id number], Partial fill upon patient request if the [...] 04/29/22 14:39:00 EST, Route to Pharmacy Electronically, [facility] [id number], Partial fill upon patient request if the prescription... Start Date: 04/29/22 Stop Date: 08/27/22 Status: Ordered risperiDONE 3 mg oral tablet 3 mg, 1, tablet, By Mouth, Daily at bedtime, # 30 tablet, Refills 3, Tot. Refills 3, Maintenance, 04/29/22 14:39:00 EST, Route to Pharmacy Electronically, [facility] [phone], Partial fill upon patient request if the prescri... Start Date: 04/29/22 Status: Ordered thiamine 100 mg oral tablet 100 mg, 1, tablet, By Mouth, Daily, for 30 days, # 30 tablet, Refills 3, Tot. Refills 3, Acute 08/27/22 14:40:00 EDT, 04/29/22 14:40:00 EST, Route to Pharmacy Electronically, [facility] [phone], Partial fill upon patient re... Start Date: 04/29/22 Stop Date: 08/27/22 Status: Ordered tiotropium 2.5 mcg/inh inhalation aerosol 2 puffs, Inhalation, Daily, # 1 each, 5 Refills, Maintenance, 06/28/22 14:48:00 EDT, Inhaler, [facility] [id number], Partial fill upon patient request if the [...] Care Team Personnel Name: Lawrence Hendrix Position: [facility] RN Supv Member Role: Primary Care Nurse Name: Rufino Lloyd RN Position: [facility] RN Member Role: Primary Care Nurse Name: Cristina Carpenter RN Position: [facility] RN Member Role: Primary Care Nurse Name: Rosette Noriega RN Position: [facility] SN RN Member Role: Primary Care Nurse Name: Mary Hidalgo RN Position: [facility] PCO RN Member Role: Primary Care Nurse Name: Sissy Duran RN Position: [facility] AMB Nurse Member Role: Primary Care Nurse Name: Rohit Zavaleta RN Position: [facility] RN Member Role: Primary Care Nurse Name: Erlinda Hartman NP Position: [facility] Associate Professional Member Role: Primary Care Nurse Address: Address: [address] [place] [address] Name: Jong Suazo RN Position: [facility] RN Supv Member Role: Primary Care Nurse Name: Shante Solis RN Position: [facility] RN Member Role: Primary Care Nurse Name: Joshua Prakash RN Position: [facility] RN Member Role: Primary Care Nurse Name: Bettie Vanegas RN Position: [facility] SN RN Member Role: Primary Care Nurse Name: Jay Marroquin RN Position: [facility] RN Member Role: Primary Care Nurse Name: Adrianna Church RN Position: [facility] RN Member Role: Primary Care Nurse Name: Sue Purdy RN Position: [facility] RN Member Role: Primary Care Nurse Name: Hector Perez RN Position: [facility] RN Member Role: Primary Care Nurse Name: Aleena Vizcaino RN Position: [facility] RN Member Role: Primary Care Nurse Name: Kacey Wilhelm RN Position: [facility] RN Member Role: Primary Care Nurse Name: Monalisa Barker LPN Position: [facility] AMB Nurse Member Role: Primary Care Nurse Name: Leslie Malloy RN Position: [facility] RN Member Role: Primary Care Nurse Name: Yesenia Hu LPN Position: [facility] RN Member Role: Primary Care Nurse Name: Joaquina Herrera RN Position: [facility] RN Member Role: Primary Care Nurse Name: Diego Bell RN Position: [facility] RN Member Role: Primary Care Nurse Name: Ese Grey Position: [facility] RN Member Role: Primary Care Nurse Name: Chela Najera RN Position: [facility] RN Member Role: Primary Care Nurse Name: Tootie Gonzalez RN Position: [facility] RN Member Role: Primary Care Nurse Name: Nancy Monte RN Position: [facility] RN Member Role: Primary Care Nurse Name: Marilee Starkey Position: [facility] RN Member Role: Primary Care Nurse Name: Silvina Dodd RN Position: [facility] RN Member Role: Primary Care Nurse Name: Flaco Clifford DO Position: [facility] Renal MD Member Role: Lifetime Consulting Physician Address: Address: [address] [place], [place] [address] [place] [address]- Name: Marilee Richardson RN Position: [facility] RN Member Role: Primary Care Nurse Name: Rufino Johnson RN Position: [facility] RN Member Role: Primary Care Nurse Name: Jovita Camarog RN Position: [facility] RN Member Role: Primary Care Nurse Name: Ju Zhu Position: [facility] RN Member Role: Primary Care Nurse Name: Ester Palomares Position: [facility] RN Member Role: Primary Care Nurse Name: Emma Colbert RN Position: [facility] RN Supv Member Role: Primary Care Nurse Name: Hallie Gambino RN Position: [facility] Onco RN Member Role: Primary Care Nurse Name: Maya Ambriz RN Position: [facility] RN Member Role: Primary Care Nurse Name: Bhavna Rendon LPN Position: [facility] RN Member Role: Primary Care Nurse Name: Luis Burton RN Position: [facility] RN Member Role: Primary Care Nurse Name: Jaki Bishop MD Position: [facility] Primary Care Physician Member Role: PCP Address: Address: [address] [place] [id number]- [place] Name: Lucian Krause RN Position: [facility] RN Member Role: Primary Care Nurse Name: Leslie Ward RN Position: [facility] RN Member Role: Primary Care Nurse Name: Jacki Gomes RN Position: [facility] RN Member Role: Primary Care Nurse Name: Ximena Saab RN Position: [facility] RN Member Role: Primary Care Nurse Name: Ivette Shankar RN Position: [facility] RN Supv Member Role: Primary Care Nurse Name: Laura Mary RN Position: [facility] SN RN Member Role: Primary Care Nurse Name: Octavio Box RN Position: [facility] RN Member Role: Primary Care Nurse Name: Nazia Tapia RN Position: [facility] RN Member Role: Primary Care Nurse Name: Caren Hernandez RN Position: [facility] RN Supv Member Role: Primary Care Nurse Name: Veronica Queen RN Position: [facility] RN Member Role: Primary Care Nurse Name: Perri Bryant RN Position: [facility] RN Member Role: Primary Care Nurse Name: Alba Toro RN Position: [facility] RN Member Role: Primary Care Nurse Name: Nely Wong RN Position: [facility] RN Member Role: Primary Care Nurse Name: Erica Brandon RN Position: [facility] RN Member Role: Primary Care Nurse Name: Adrianna Gonzalez RN Position: [facility] RN Member Role: Primary Care Nurse Name: Annmarie Feldman RN Position: [facility] PCO w/OE and EZ Script Member Role: Primary Care Nurse Name: Chinyere Espinoza RN Position: [facility] RN Member Role: Primary Care Nurse Name: Teresita Diallo RN Position: [facility] RN Member Role: Primary Care Nurse Name: Tennille Mcgarry RN Position: [facility] C T Tech Member Role: Primary Care Nurse Name: Vicky Salazar RN Position: [facility] RN Member Role: Primary Care Nurse Name: Spencer Jameson RN Position: [facility] RN Member Role: Primary Care Nurse Name: Jalen Mullins Position: [facility] RN Member Role: Primary Care Nurse Care Team Related Persons Name: MARYANNE KELLER Address: [address] [place] [address] Name: MARYANNE KELLER Address: home [address] [address] Name: MARYANNE KELLER JR Address: [address] [place] [address] Name: GEORGIA KELLER Address: [place] [address] Name: BALDEV POLANCO Address: [place] [address]
--- OUTSIDE RECORDS SUMMARY | 2023-02-09 22:40 | XMS_ITS | Continuity of Care Document ---
Author Name Unknown Organization [facility] Address [address] [place] [address]- Care Team Providers Care Lpn Rn Hospice Name Role Phone Jaki Bishop MD Primary Care Physician [phone] [facility]counter [facility] Date[facility]s): 09/17/19 - 10/17/[address] [address]- [facility] Allergies, Adverse Reactions, Alerts Substance [...] Given Permanently Refused 1Admin Note: VIS GIVEN [id number] 2Admin Note: VIS GIVEN 2008-12 3Admin Note: vis 4Admin Note: vis 02/06/08 Medications acetaminophen 325 mg oral tablet 1, tablet, By Mouth, 4 times a day, PRN, no MORE THAN 4 TABLETS PER DAY., # 60 tablet, Refills 2, Tot. Refills 0, Acute, NEEDED, 08/07/19 23:17:00 EDT, Route to Pharmacy Electronically, [facility], 166, cm, 05/28/19 11:08:00 [...] 08/07/19 14:24:00 EDT, Route to Pharmacy Electronically, [place], [place] -, 166, cm, 05/28/19 11:08:00 EDT, [...] 02/21/19 14:45:44 EST, Route to Pharmacy Electronically, [id number], [place], [place] -, 168, cm, 02/14/19... Start Date: [...] Maintenance,03/27/19 16:10:00 EST, Route to Pharmacy Electronically, [facility] #[id number], 166, cm, 03/27/19 15:26:00 EST, Height, 91.8, [...] K86.1, K74.6, E11.65. Fax to Anna ( [facility], #[phone]), 07/26/19 15... Start Date: 07/26/19 Status: Ordered Golytely - oral powder for reconstitution See Instructions, split prep, # 4,000 mL, 0 Refills, Maintenance, 09/24/19 14:15:00 EDT, REC Powder, [place], [place] -, split prep, 166, cm, 09/24/19 [...] mL, 6 Refills, Maintenance, 05/04/19 12:52:00 EST, [place], [place] - , Humalog ins... Start Date: [...] Refills, Maintenance, 07/26/19 8:25:00 EDT, REC Powder, [place], [place] -, 17 Gm By Mouth 2 times a day,PRN:Oth... Start Date: 07/26/19 Status: Ordered MiraLax Powder = 17 Gm, By Mouth, 2 times a day, 0 Refills, Maintenance, 10/11/19 0:39:00 EDT Start Date: 10/11/19 Status: Ordered multivitamin Multiple Vitamins oral tablet 1 tablet, By Mouth, Daily, # 90 tablet, 1 Refills, Maintenance, 08/07/19 14:23:00 EDT, Tablet, [place], [place] -, 1 tablet By Mouth Daily, [...] Weight Start Date: 07/30/19 Status: Ordered Pen [place], 31 G x 8 mm BD Ultra [...] Attn Dr. Mariano Andrade, Outpatient Psychiatry, at [phone]., See Instructions, # 1 application, Refills 0, [...] 5 Refills, Maintenance, 08/27/19 7:36:00 EDT, Tablet, [facility] [place], [place] -, this is an increased, 1 [...] 04/20/19 10:38:00 EST, Route to Pharmacy Electronically, [facility] #[id number], 166, cm, 04/20/19 10:17:00 EST, Height, 91.8, kg, 02/23/19 17:03:00 EST, Start Date: 04/20/19 Status: Ordered torsemide 20 mg oral tablet 2 tablet = 40 mg, Daily, 0 Refills, Maintenance, 10/10/19 23:41:00 EDT Start Date: 10/10/19 Status: Ordered torsemide 20 mg oral tablet 2 tablet = 40 mg, By Mouth, Daily, # 180 tablet, 11 Refills, Maintenance, 04/20/19 10:38:00 EST, Tablet, [facility] #[id number], Replaces lower dose, 166, cm, 04/20/19 10:17:00 [...] Active H/O tubal ligation(Confirmed) Active BHN/[facility] CP Home Lighting Adviser/Janet Pandey [phone](Confirmed) Active History of cholecystectomy(Confirmed) Active Hypertension(Confirmed) Active [...]
--- OUTSIDE RECORDS SUMMARY | 2023-02-09 22:41 | XMS_ITS | Continuity of Care Document ---
Author Name Unknown Organization [facility] Address [address] [place] [address]- Care Team Providers Care Manager Of Loss Prevention Operations Name Role Phone Jaki Bishop MD Primary Care Physician [phone] Encounter [facility] Date(s): 06/28/22 - 09/08/[address] [address]- Attending Physician: Jaki Bishop MD Admitting Physician: [...] to COVID vaccine 2Admin Note: VIS GIVEN [id number] 3Admin Note: VIS GIVEN 2008-12 4Admin Note: vis 5Admin Note: vis 02/06/08 Medications albuterol 90 mcg/inh inhalation powder 2 puffs, Inhalation, Every 4 hours, PRN as needed, PRN Wheezing, # 1 each, 1 Refills, Maintenance, 06/28/22 14:49:00 EDT, Powder, [facility] [id number], Partial fill upon patient request if the [...] 07/16/22 16:04:00 EDT, Route to Pharmacy Electronically, [facility] [id number], Partialfill upon patient request if the prescription is fo... Start Date: 07/16/22 Status: Ordered benztropine 1 mg oral tablet 0.5 mg, 0.5, tablet, By Mouth, 2 times a day, # 30 tablet, Refills 3, Tot. Refills 3, Maintenance, 04/29/22 14:29:00 EST, Route to Pharmacy Electronically, [facility] [id number], Partial fill upon patient request if the [...] Replace Required Details, Route to Pharmacy Electronically, [facility], 160, cm, 07/26/22 12:51:... Start Date: 07/30/22 Status: Ordered cloNIDine 0.1 mg oral tablet 0.1 mg, 1, tablet, By Mouth, Daily, # 30 tablet, Refills 3, Tot. Refills 3, Maintenance, 04/29/22 14:29:00 EST, Route to Pharmacy Electronically, [place], [place] - [id number], Partial fill upon patient request if the prescription is... Start Date: 04/29/22 Stop Date: 08/27/22 Status: Ordered Creon 12,000 units oral delayed release capsule 1 capsule, By Mouth, 3 times a day, # 90 capsule, 3 Refills, Maintenance, 04/29/22 14:37:00 EST, ECCapsule, [place], [place] - [id number], Partial fill upon patient request if the [...] 06/01/22 16:34:00 EDT, Route to Pharmacy Electronically, [facility], 167, cm, 03/25/22 3:14:00 EST, Height, [...] mL, 1 Refills, Maintenance, 07/22/22 15:51:00 EDT, [facility], 15, TAKE 30 ML BY MOUTH two (2) times a day, 160, cm, 07/21/22 10:57:00 EDT, Height, 89.2, kg, 07/21/22 3:29:00 EDT, Dry Weight Start Date: 07/22/22 Status: Ordered Lantus Solostar Pen 100 units/mL subcutaneous solution = 6 units, Subcutaneous Injection, Daily in AM, # 10 mL, 2 Refills, Maintenance, 04/29/22 14:34:00 EST, Solution, [facility] [place], [place] - [id number], Partial fill upon patient request if the prescription is for a schedule II opioid drug.,... Start Date: 04/29/22 Status: Ordered multivitamin Multiple Vitamins oral tablet 1 tablet, By Mouth, Daily, # 90 tablet, 1 Refills, Maintenance, 04/02/22 16:44:00 EST, Tablet, [facility] [id number], Partial fill upon patient request if the [...] 04/29/22 14:39:00 EST, Route to Pharmacy Electronically, [facility] [id number], Partial fill upon patient request if the prescription... Start Date: 04/29/22 Stop Date: 08/27/22 Status: Ordered risperiDONE 3 mg oral tablet 3 mg, 1, tablet, By Mouth, Daily at bedtime, # 30 tablet, Refills 3, Tot. Refills 3, Maintenance, 04/29/22 14:39:00 EST, Route to Pharmacy Electronically, [facility] [id number], Partial fill upon patient request if the prescri... Start Date: 04/29/22 Status: Ordered tiotropium 2.5 mcg/inh inhalation aerosol 2 puffs, Inhalation, Daily, # 1 each, 5 Refills, Maintenance, 06/28/22 14:48:00 EDT, Inhaler, [facility] [id number], Partial fill upon patient request if the [...] Care Team Personnel Name: Lawrence Hendrix Position: [facility] RN Supsanchez Member Role: Primary Care Nurse Name: Rufino Lloyd RN Position: [facility] RN Member Role: Primary Care Nurse Name: Cristina Carpenter RN Position: [facility] RN Member Role: Primary Care Nurse Name: Rosette Noriega RN Position: [facility] SN RN Member Role: Primary Care Nurse Name: Mary Hidalgo RN Position: [facility] AMB Nurse Member Role: Primary Care Nurse Name: Sissy Duran RN Position: [facility] AMB Nurse Member Role: Primary Care Nurse Name: Rohit Zavaleta RN Position: [facility] RN Member Role: Primary Care Nurse Name: Erlinda Hartman NP Position: [facility] Associate Professional Member Role: Primary Care Nurse Address: Address: [address] [place] [id number] [[email or web address]] Name: Shante Solis RN Position: [facility] RN Member Role: Primary Care Nurse Name: Joshua Prakash RN Position: [facility] RN Member Role: Primary Care Nurse Name: Bettie Vanegas RN Position: [facility] SN RN Member Role: Primary Care Nurse Name: Jay Marroquin RN Position: [facility] RN Member Role: Primary Care Nurse Name: Adrianna Church RN Position: [facility] RN Member Role: Primary Care Nurse Name: Sue Purdy RN Position: [facility] RN Member Role: Primary Care Nurse Name: Hector Perez RN Position: [facility] RN Member Role: Primary Care Nurse Name: Aleena Vizcaino RN Position: [facility] RN Member Role: Primary Care Nurse Name: Kacey Wilhelm RN Position: [facility] RN Member Role: Primary Care Nurse Name: Leslie Malloy RN Position: [facility] RN Member Role: Primary Care Nurse Name: Yesenia Hu LPN Position: [facility] RN Member Role: Primary Care Nurse Name: Joaquina Herrera RN Position: [facility] RN Member Role: Primary Care Nurse Name: Diego Bell RN Position: [facility] RN Member Role: Primary Care Nurse Name: Ese Grey Position: [facility] RN Member Role: Primary Care Nurse Name: Chela Najera RN Position: [facility] RN Member Role: Primary Care Nurse Name: Tootie Gonzalez RN Position: [facility] RN Member Role: Primary Care Nurse Name: Nancy Monte RN Position: [facility] RN Member Role: Primary Care Nurse Name: Marilee Starkey Position: [facility] RN Member Role: Primary Care Nurse Name: Silvian Dodd RN Position: [facility] RN Member Role: Primary Care Nurse Name: Flaco Clifford DO Position: [facility] Renal MD Member Role: Lifetime Consulting Physician Address: Address: [address] [place], [place] [address], [place] [address] [[email or web address]] Name: Marilee Richardson RN Position: [facility] RN Member Role: Primary Care Nurse Name: Rufino Johnson RN Position: [facility] RN Member Role: Primary Care Nurse Name: Jovita Camargo RN Position: [facility] RN Member Role: Primary Care Nurse Name: Ju Zhu Position: [facility] RN Member Role: Primary Care Nurse Name: Ester Palomares Position: [facility] RN Member Role: Primary Care Nurse Name: Emma Colbert RN Position: [facility] RN Supv Member Role: Primary Care Nurse Name: Hallie Gambino RN Position: [facility] Onco RN Member Role: Primary Care Nurse Name: Maya Ambriz RN Position: [facility] RN Member Role: Primary Care Nurse Name: Bhavna Rendon LPN Position: [facility] RN Member Role: Primary Care Nurse Name: Luis Burton RN Position: [facility] RN Member Role: Primary Care Nurse Name: Jaki Bishop MD Position: [facility] Physician - Primary Care Member Role: PCP Address: Address: [address] [place] [address] Name: Lucian Krause RN Position: [facility] RN Member Role: Primary Care Nurse Name: Isaiah Combs RN Position: [facility] RN Member Role: Primary Care Nurse Name: Leslie Ward RN Position: [facility] RN Member Role: Primary Care Nurse Name: Jacki Gomes RN Position: [facility] RN Member Role: Primary Care Nurse Name: Ximena Saab RN Position: [facility] RN Member Role: Primary Care Nurse Name: Mar Brothers RN Position: [facility] RN Member Role: Primary Care Nurse Name: Ivette Shankar RN Position: [facility] RN Supv Member Role: Primary Care Nurse Name: Laura Mary RN Position: [facility] SN RN Member Role: Primary Care Nurse Name: Mary Guillen RN Position: [facility] RN Member Role: Primary Care Nurse Name: Octavio Box RN Position: [facility] RN Member Role: Primary Care Nurse Name: Nazia Tapia RN Position: [facility] RN Member Role: Primary Care Nurse Name: Pat Jackson RN Position: [facility] RN Member Role: Primary Care Nurse Name: Caren Hernandez RN Position: [facility] RN Supv Member Role: Primary Care Nurse Name: Perri Bryant RN Position: [facility] RN Member Role: Primary Care Nurse Name: Alba Toro RN Position: [facility] RN Member Role: Primary Care Nurse Name: Nely Wong RN Position: [facility] RN Member Role: Primary Care Nurse Name: Erica Brandon RN Position: [facility] RN Member Role: Primary Care Nurse Name: Adrianna Gonzalez RN Position: [facility] RN Member Role: Primary Care Nurse Name: Annmarie Feldman RN Position: [facility] PCO w/OE and EZ Script Member Role: Primary Care Nurse Name: Chinyere Espinoza RN Position: [facility] RN Member Role: Primary Care Nurse Name: Imani RAMIREZ, Teresita Reyes Position: [facility] RN Member Role: Primary Care Nurse Name: Tennille Mcgarry RN Position: [facility] Hospital [employer] Member Role: Primary Care Nurse Name: Vicky Salazar RN Position: [facility] RN Member Role: Primary Care Nurse Name: Spencer Jameson RN Position: [facility] RN Member Role: Primary Care Nurse Name: Jalen Mullins Position: [facility] RN Member Role: Primary Care Nurse Care Team Related Persons Name: MARYANNE KELLER Address: [address] [place] [address] Name: MARYANNE KELLER Address: home [address] [place] [id number] Name: MARYANNE KELLER JR Address: home [address] [place] [address] Name: GEORGIA KELLER Address: [place] [address] Name: BALDEV POLANCO Address: [place] [address]
--- OUTSIDE RECORDS SUMMARY | 2023-02-09 22:41 | XMS_ITS | Continuity of Care Document ---
Author Name Unknown Organization [facility] Address [address] [place] [address]- Care Team Providers Care Packing And Stamping Machine Operator Name Role Phone Jaki Bishop MD Primary Care Physician [phone] [facility]counter [facility] Date[facility]s): 10/11/19 - 11/10/[address] [address]- [facility] Allergies, Adverse Reactions, Alerts Substance Reaction Severity [...] Given Permanently Refused 1Admin Note: VIS GIVEN [id number] 2Admin Note: VIS GIVEN 2008-12 3Admin Note: vis 4Admin Note: vis 02/06/08 Medications acetaminophen 325 mg oral tablet 1, tablet, By Mouth, 4 times a day, PRN, no MORE THAN 4 TABLETS PER DAY., # 60 tablet, Refills 2, Tot. Refills 0, Acute, NEEDED, 08/07/19 23:17:00 EDT, Route to Pharmacy Electronically, [facility], 166, cm, 05/28/19 11:08:00 EDT, Height, [...] 08/07/19 14:24:00 EDT, Route to Pharmacy Electronically, [place], [place] -, 166, cm, 05/28/19 11:08:00 EDT, [...] 02/21/19 14:45:44 EST, Route to Pharmacy Electronically, [id number], [place], [place] -, 168, cm, 02/14/19... Start Date: [...] Maintenance,03/27/19 16:10:00 EST, [id number], 166, cm, 03/27/19 15:26:00 EST, Height, 91.8, [...] Fax to Anna ( [facility], #[phone]), 07/26/19 15... Start Date: 07/26/19 Status: Ordered Golytely - oral powder for reconstitution See Instructions, split prep, # 4,000 mL, 0 Refills, Maintenance, 09/24/19 14:15:00 EDT, REC Powder, [place], [place] -, split prep, 166, cm, 09/24/19 [...] mL, 6 Refills, Maintenance, 05/04/19 12:52:00 EST, [place], [place] - , Humalog ins... Start Date: [...] Refills, Maintenance, 07/26/19 8:25:00 EDT, REC Powder, [place], [place] -, 17 Gm By Mouth 2 times a day,PRN:Oth... Start Date: 07/26/19 Status: Ordered MiraLax Powder = 17 Gm, By Mouth, 2 times a day, 0 Refills, Maintenance, 10/11/19 0:39:00 EDT Start Date: 10/11/19 Status: Ordered multivitamin Multiple Vitamins oral tablet 1 tablet, By Mouth, Daily, # 90 tablet, 1 Refills, Maintenance, 08/07/19 14:23:00 EDT, Tablet, [place], [place] -, 1 tablet By Mouth Daily, [...] Weight Start Date: 10/29/19 Status: Ordered Pen [place], 31 G x 8 mm BD Ultra [...] Attn Dr. Mariano Andrade, Outpatient Psychiatry, at [phone]., See Instructions, # 1 application, Refills 0, [...] 5 Refills, Maintenance, 08/27/19 7:36:00 EDT, Tablet, [facility] - [place], [place] -, this is an increased, 1 [...] 04/20/19 10:38:00 EST, Route to Pharmacy Electronically, [email or web address][id number], 166, cm, 04/20/19 10:17:00 EST, Height, 91.8, kg, 02/23/19 17:03:00 EST, Start Date: 04/20/19 Status: Ordered torsemide 20 mg oral tablet 2 tablet = 40 mg, Daily, 0 Refills, Maintenance, 10/10/19 23:41:00 EDT Start Date: 10/10/19 Status: Ordered torsemide 20 mg oral tablet 2 tablet = 40 mg, By Mouth, Daily, # 180 tablet, 11 Refills, Maintenance, 04/20/19 10:38:00 EST, Tablet, [facility] #[id number], Replaces lower dose, 166, cm, 04/20/19 10:17:00 [...] Active H/O tubal ligation(Confirmed) Active BHN/[facility] CP Pin Sticker/Janet Pandey [phone](Confirmed) Active History of cholecystectomy(Confirmed) Active Hypertension(Confirmed) Active [...]
--- OUTSIDE RECORDS SUMMARY | 2023-02-09 22:41 | XMS_ITS | Continuity of Care Document ---
Author Name Unknown Organization [facility] Address [address] [place] [address]- Care Team Providers Care Meat Cutter Name Role Phone Dario HAYDEN, Jaki Primary Care Physician Encounter [facility] Date(s): 02/15/22 - 03/17/[address] [address] Allergies, Adverse [...] to COVID vaccine 2Admin Note: VIS GIVEN [id number] 3Admin Note: VIS GIVEN 2008- 4Admin Note: [...] 02/02/22 9:36:00 EST, Route to Pharmacy Electronically, [facility] [id number], Partial fill upon patient request if the prescri... Start Date: 02/02/22 Status: Ordered cloNIDine 0.1 mg oral tablet 0.1 mg, 1, tablet, By Mouth, Daily, # 15 tablet, Refills 0, Tot. Refills 0, Maintenance, 02/02/22 9:36:00 EST, Route to Pharmacy Electronically, [facility] [id number], Partial fill upon patient request if the prescription is f... Start Date: 02/02/22 Status: Ordered Coreg 6.25 mg oral tablet 6.25 mg, 1, tablet, By Mouth, 2 times a day, # 60 tablet, Refills 0, Tot. Refills 0, Maintenance, 02/02/22 9:36:00 EST, Route to Pharmacy Electronically, [facility] [id number], Partial fill upon patient request if the prescrip... Start Date: 02/02/22 Status: Ordered Creon 12,000 units oral delayed release capsule 1 capsule, By Mouth, 3 times a day, # 90 capsule, 0 Refills, Maintenance, 02/02/22 9:39:00 EST, EC Capsule, [facility], [facility] [id number], Partial fill upon patient request if the prescription is for a schedule II opioid drug., 167, c... Start Date: 02/02/22 Status: Ordered divalproex sodium 500 mg oral enteric coated tablet 1 tablet = 500 mg, By Mouth, 2 times a day, # 60 tablet, 0 Refills, Maintenance, 02/02/22 9:36:00 EST, Tablet, [facility], [facility] [id number], Partial fill upon patient request if theprescription [...] 02/02/22 9:36:00 EST, Route to Pharmacy Electronically, [facility] [id number], Partial fill upon patient request if the [...] 02/02/22 9:37:00 EST, Route to Pharmacy Electronically, [place], [place] - [id number], Partialfill upon patient request if the prescription is fo... Start Date: 02/02/22 Status: Ordered melatonin 3 mg oral tablet 1 tablet = 3 mg, By Mouth, Daily at bedtime, PRN Insomnia, # 30 tablet, 0 Refills, Maintenance, 02/02/22 9:37:00 EST, Tablet, [facility] [id number], Partial fill upon patientrequest if the prescription [...] 02/02/22 9:39:00 EST, Route to Pharmacy Electronically, [facility] [id number],Partial fill upon patient request if the prescripti... Start Date: 02/02/22 Status: Ordered torsemide 20 mg oral tablet 1 tablet = 20 mg, By Mouth, 2 times a day, # 60 tablet, 0 Refills, Maintenance, 02/02/22 9:40:00 EST, Tablet, [facility] [id number], Partial fill upon patient request if the [...] Team Personnel Name: Daniel Gamino RN Position: [facility] RN Member Role: Primary Care Nurse Name: Lawrence Hendrix Position: [facility] RN Supv Member Role: Primary Care Nurse Name: Rufino Lloyd RN Position: [facility] RN Member Role: Primary Care Nurse Name: Cristina Carpenter RN Position: [facility] RN Member Role: Primary Care Nurse Name: Rosette Noriega RN Position: [facility] SN RN Member Role: Primary Care Nurse Name: Mary Hidalgo RN Position: [facility] PCO RN Member Role: Primary Care Nurse Name: Sissy Duran RN Position: [facility] AMB Nurse Member Role: Primary Care Nurse Name: Rohit Zavaleta RN Position: [facility] RN Member Role: Primary Care Nurse Name: Erlinda Hartman NP Position: [facility] Associate Professional Member Role: Primary Care Nurse Address: Address: [address] [place] [address] Name: Jong Suazo RN Position: [facility] RN Supv Member Role: Primary Care Nurse Name: Shante Solis RN Position: [facility] RN Member Role: Primary Care Nurse Name: Joshua Prakash RN Position: [facility] RN Member Role: Primary Care Nurse Name: Bettie Vanegas RN Position: [facility] RN Member Role: Primary Care Nurse Name: Jay Marroquin RN Position: [facility] RN Member Role: Primary Care Nurse Name: Sue Purdy RN Position: [facility] RN Member Role: Primary Care Nurse Name: Hector Perez RN Position: [facility] RN Member Role: Primary Care Nurse Name: Aleena Vizcaino RN Position: [facility] RN Member Role: Primary Care Nurse Name: Kacey Wilhelm RN Position: [facility] RN Member Role: Primary Care Nurse Name: Monalisa Barker Position: [facility] RN Member Role: Primary Care Nurse Name: Leslie Malloy RN Position: [facility] RN Member Role: Primary Care Nurse Name: Joaquina Herrera RN Position: [facility] RN Member Role: Primary Care Nurse Name: Diego Bell RN Position: [facility] RN Member Role: Primary Care Nurse Name: Ese Grey Position: [facility] RN Member Role: Primary Care Nurse Name: Chela Najera RN Position: [facility] ED RN W/OE and Tasks Member Role: Primary Care Nurse Name: Tootie Gonzalez RN Position: [facility] RN Member Role: Primary Care Nurse Name: Nancy Monte RN Position: [facility] RN Member Role: Primary Care Nurse Name: Marilee Starkey Position: [facility] RN Member Role: Primary Care Nurse Name: Silvina Dodd RN Position: [facility] RN Member Role: Primary Care Nurse Name: Flaco Clifford DO Position: [facility] Renal MD Member Role: Lifetime Consulting Physician Address: Address: [address] [place], [place] [address] [place], [place] [address] Name: Marilee Richardson RN Position: [facility] RN Member Role: Primary Care Nurse Name: Rufino Johnson RN Position: [facility] RN Member Role: Primary Care Nurse Name: Jovita Camargo RN Position: [facility] RN Member Role: Primary Care Nurse Name: Ju Zhu Position: [facility] RN Member Role: Primary Care Nurse Name: Ester Palomares Position: [facility] RN Member Role: Primary Care Nurse Name: Emma Colbert RN Position: [facility] RN Supv Member Role: Primary Care Nurse Name: Hallie Gambino RN Position: [facility] Shawnee RN Member Role: Primary Care Nurse Name: Maya Ambriz RN Position: [facility] RN Member Role: Primary Care Nurse Name: Luis Burton RN Position: [facility] RN Member Role: Primary Care Nurse Name: Jaki Bishop MD Position: [facility] Primary Care Physician Member Role: PCP Address: Address: [address] [place] [address] Name: Lucian Krause RN Position: [facility] RN Member Role: Primary Care Nurse Name: Leslie Ward RN Position: [facility] RN Member Role: Primary Care Nurse Name: Jacki Gomes RN Position: [facility] RN Member Role: Primary Care Nurse Name: Ximena Saab RN Position: [facility] RN Member Role: Primary Care Nurse Name: Ivette Shankar RN Position: [facility] RN Supv Member Role: Primary Care Nurse Name: Laura Mary RN Position: [facility] SN RN Member Role: Primary Care Nurse Name: Octavio Box RN Position: [facility] RN Member Role: Primary Care Nurse Name: Caren Hernandez RN Position: [facility] RN Supv Member Role: Primary Care Nurse Name: Kinza De La Cruz RN Position: [facility] RN Member Role: Primary Care Nurse Name: Veronica Queen RN Position: [facility] RN Member Role: Primary Care Nurse Name: Perri Bryant RN Position: [facility] RN Member Role: Primary Care Nurse Name: Alba Toro RN Position: [facility] RN Member Role: Primary Care Nurse Name: Nely Wong RN Position: [facility] RN Member Role: Primary Care Nurse Name: Erica Brandon RN Position: [facility] RN Member Role: Primary Care Nurse Name: Adrianna Gonzalez RN Position: [facility] RN Member Role: Primary Care Nurse Name: Annmarie Feldman RN Position: [facility] PCO w/OE and EZ Script Member Role: Primary Care Nurse Name: Chinyere Espinoza RN Position: [facility] RN Member Role: Primary Care Nurse Name: Teresita Diallo RN Position: [facility] RN Member Role: Primary Care Nurse Name: Tennille Mcgarry RN Position: [facility] Hospital Dye Machine Tender Member Role: Primary Care Nurse Name: Vicky Salazar RN Position: [facility] RN Member Role: Primary Care Nurse Name: Spencer Jameson RN Position: [facility] RN Member Role: Primary Care Nurse Name: Jalen Mullins Position: [facility] RN Member Role: Primary Care Nurse Care Team Related Persons Name: MARYANNE KELLER Address: home [address] [place] [address] Name: MARYANNE KELLER Address: home [address] [address] Name: GEORGIA KELLER Address: [place] [address] Name: BALDEV POLANCO Address: [place] [address]
--- OUTSIDE RECORDS SUMMARY | 2023-02-09 22:41 | XMS_ITS | Continuity of Care Document ---
Author Name Unknown Organization [facility] Address [address] [place] [address]- Care Team Providers Care Ethylbenzene Converter Operator Name Role Phone Dario HAYDEN, Jaki Primary Care Physician [phone] Encounter [facility] Date(s): 11/14/18 - 03/14/[address] [address]- [facility] Attending Physician: Christen Betts NP Admitting Physician: [...] Given Patient Refuses 1Admin Note: VIS GIVEN [id number] 2Admin Note: VIS GIVEN 2008- 3Admin Note: vis 4Admin Note: vis 02/06/08 Medications acetaminophen 325 mg oral tablet 325 mg, 1, tablet, By Mouth, 4 times a day, PRN, No more than 4 tablets per day, # 60 tablet, Refills 11, Tot. Refills 11, Acute 10/05/19 12:00:00 EDT, for pain, 10/03/18 14:57:21 EDT, Route to Pharmacy Electronically, [id number]... Start Date: 10/03/18 Stop Date: 10/05/19 Status: [...] 07/19/18 9:04:24 EDT, Route to Pharmacy Electronically, [id number], [facility] [id number] Start Date: 07/19/18 Status: Ordered docusate sodium 100 mg oral capsule 100 mg, 1, capsule, By Mouth, 2 times a day, # 60 capsule, Refills 11, Tot. Refills 11, Maintenance, 02/21/19 14:45:44 EST, Route to Pharmacy Electronically, [id number], [facility] [place] [place] -, 168, cm, 02/14/19... Start Date: 02/21/19 Stop Date: 02/16/20 Status: Ordered Ensure (Vanilla Flavor) Ensure (Vanilla Flavor), See Instructions, # 60 each, Refills 11, Tot. Refills 11, Maintenance, Drink 1 can BID. Diagnosis: Chronic Pancreatitis, Cirrhosis. ICD10 K86.1, K74.6, Fax to [facility]( [facility], #[phone]), 12/06/17 13:28:49 EDT, Compound Start Date: 12/06/17 Status: Ordered gabapentin 100 mg oral capsule 100 mg, 1, capsule, By Mouth, 2 times a day, # 60 capsule, Refills 6, Tot. Refills 6, Maintenance, 07/19/18 9:05:59 EDT, Route to Pharmacy Electronically, [id number], [facility] [id number] Start Date: 07/19/18 Stop Date: 02/14/19 Status: [...] TABLET BY MOUTH DAILY FOR STOMACH ACID, [id number] Start Date: 11/28/18 Status: Ordered Please draw CBC with dif (for ANC) weekly and fax results to: Attn Dr. Mariano Andrade, Outpatient Psychi Please draw CBC with dif (for ANC) weekly and fax results to: Attn Dr. Mariano Andrade, Outpatient Psychiatry, at [phone]., See Instructions, # 1 application, Refills 0, [...] Active H/O tubal ligation(Confirmed) Active BHN/BH CP Button Pusher/Janet salvador [facility] [phone](Confirmed) Active History of cholecystectomy(Confirmed) Active Hypertension(Confirmed) Active Incisional hernia(Confirmed) Active Nicotine dependence(Confirmed) Active Obesity (BMI 30.0-34.9)(Confirmed) Active Pulmonary HTN, Severe(Confirmed) Active Steatohepatitis (w/Stage III Fibrosis, Liver Biopsy 05/2012)(Confirmed) Active Social History Social History Type Response Tobacco Use: 4 or less cigar ettes(less than 1/4 pack)/day in last 30 days. Started at age: 15 Years. Sex
--- OUTSIDE RECORDS SUMMARY | 2023-02-09 22:41 | XMS_ITS | Continuity of Care Document ---
Author Name Unknown Organization [facility] Address [address] [place] [address]- Care Team Providers Care Wool Fleece Grader Name Role Phone Jaki Bishop MD Primary Care Physician [phone] [place] [facility] Date(s): 11/24/21 - 01/06/[address] [address]- Attending Physician: Berkley Osborne MD Admitting Physician: Berkley Osborne MD Referring Physician: Melvin Jackson MD Allergies, Adverse Reactions, Alerts Substance Reaction [...] to COVID vaccine 2Admin Note: VIS GIVEN [id number] 3Admin Note: VIS GIVEN 2008- 4Admin Note: [...] 07/07/21 8:56:00 EDT, Route to Pharmacy Electronically, [facility] [id number], Partial fill upon patient request if the [...] 07/07/21 8:56:00 EDT, Route to Pharmacy Electronically, [facility] [id number], Partial fill upon patient request if the prescri... Start Date: 07/07/21 Status: Ordered Daily Multiple Vitamins oral tablet 1 tablet, By Mouth, Daily, # 90 tablet, 3 Refills, Maintenance, 07/07/21 8:56:00 EDT, Tablet, [facility] [id number], Partial fill upon patient request if the prescription is for a schedule II opioid drug., 1 tablet By Mouth Da... Start Date: 07/07/21 Status: Ordered divalproex sodium 500 mg oral enteric coated tablet = 500 mg, By Mouth, 2 times a day, # 60 tablet, 0 Refills, Maintenance, 12/31/21 13:14:00 EDT, Tablet, [facility] 3, Partial fill upon patient request if the prescription is for a schedule II opioid drug., 167, cm, 07/07/21 8:39:00 EDT, He... Start Date: 12/31/21 Stop Date: 01/30/22 Status: Ordered folic acid 1 mg oral tablet 1 mg, 1, tablet, By Mouth, Daily, # 30 tablet, Refills 1, Tot. Refills 1, Maintenance, 10/21/21 12:44:00 EDT, Route to Pharmacy Electronically, [facility] [id number], Partialfill upon patient request if the prescription is fo... Start Date: 10/21/21 Status: Ordered gabapentin 100 mg oral capsule 100 mg, 1, capsule, By Mouth, Daily, PRN, # 90 capsule, Refills 3, Tot. Refills 3, Maintenance, Anxiety, 07/07/21 8:56:00 EDT, Route to Pharmacy Electronically, [facility] [id number], Partial fill upon patient request if the p... Start Date: 07/07/21 Status: Ordered gabapentin 100 mg oral capsule 200 mg, 2, capsule, By Mouth, Daily at bedtime, # 180 capsule, Refills 3, Tot. Refills 3, Maintenance, 07/07/21 8:56:00 EDT, Route to Pharmacy Electronically, [facility] [id number], Partial fill upon patient request if the pre... Start Date: 07/07/21 Status: Ordered guaiFENesin 100 mg/5 mL oral liquid 5 mL = 100 mg, By Mouth, Every 4 hours, PRN for cough, # 300 mL, 0 Refills, Acute 07/07/22 9:05:00 EDT, 07/07/21 9:02:00 EDT, Liquid, [facility] [id number], Partial fill uponpatient request if the prescription [...] a day, # 581 mL, 3 Refills, [facility], , TAKE 30mls BY MOUTH 2 (two) times a day, 167, cm, 07/07/21 8:39:00 EDT, Height, 95.6, kg, 06/29/21 18:39:00 EDT, Dry Weight Start Date: 08/10/21 Status: Ordered Lantus Solostar Pen 100 units/mL subcutaneous solution = 16 units, Subcutaneous Infusion, Daily, # 15 mL, 5 Refills, Maintenance, 09/11/21 17:25:00 EDT, [facility] [id number], Partial fill upon patient request if the prescriptionis for a schedule II opioid drug., 167, cm, ... Start Date: 09/11/21 Status: Ordered loratadine 10 mg oral tablet 10 mg, 1, tablet, By Mouth, Daily, # 90 tablet, Refills 3, Tot. Refills 3, Maintenance, 07/07/21 8:56:00 EDT, Route to Pharmacy Electronically, [facility] [id number], Partialfill upon patient request if the prescription is fo... Start Date: 07/07/21 Status: Ordered losartan 50 mg oral tablet TAKE 1 TABLET BY MOUTH ONCE DAILY Start Date: 12/30/21 Status: Ordered magnesium oxide 400 mg oral tablet 1 tablet = 400 mg, By Mouth, 2 times a day, # 180 tablet, 3 Refills, Maintenance, 07/07/21 8:56:00 EDT, Tablet, [facility] [id number], Partial fill upon patient request if the prescription is for a schedule II opioid drug., 16... Start Date: 07/07/21 Status: Ordered melatonin 3 mg oral tablet 1 tablet = 3 mg, By Mouth, Daily at bedtime, PRN Insomnia, # 90 tablet, 3 Refills, Maintenance, 07/07/21 8:56:00 EDT, Tablet, [facility] [id number], Partial fill upon patientrequest if the prescription is for a schedule II op... Start Date: 07/07/21 Status: Ordered Narcan 4 mg/0.1 mL nasal spray = 4 mg, Naris, Left, Once, may repeat every 2 to 3 minutes until patient responds. PRN opioid overdose, # 2 each, 0 Refills, Soft Stop, 11/27/21 19:25:00 EDT, [facility] [id number], Partial fill upon patient request if the pre... Start Date: 11/27/21 Status: Ordered nicotine 2 mg oral transmucosal lozenge 1 lozenge = 2 mg, By Mouth, Every hour, PRN Other, Nicotine Withdrawal Symptoms (not to exceed 20 lozenges per day), # 72 lozenge, 3 Refills, Maintenance, 07/07/21 8:56:00 EDT, Lozenge, [facility] [id number], Partial fill upon... Start Date: 07/07/21 Status: Ordered pancrelipase 10,000 units-32,000 units-42,000 units oral delayed release capsule 1 capsule, By Mouth, 3 times a day, with each meal and snack, # 270 capsule, 3 Refills, Maintenance, 10/21/21 17:17:00 EDT, CR Capsule, [facility] [id number], Partial fill upon patient request if the [...] 12/31/21 13:42:00 EDT, Route to Pharmacy Electronically, [facility], Partial fill upon patient [...] 3 Refills, Maintenance, 07/07/21 8:56:00 EDT, Tablet, [facility] [place], [place] - [id number], Partial fill upon patient request if theprescription [...] findings sarcoid 2013 liver biopsy) Confirmed Active CAP (community acquired pneumonia) Confirmed Active Diabetes Confirmed Active Dyshidrotic eczema Confirmed Active General medical Confirmed Active History of splenectomy Confirmed Active H/O tubal ligation Confirmed Active BHN/BH CP Data Architect Manager/Niya Pandey [phone] Confirmed Active Heart failure Confirmed Active History [...] fraction Confirmed Active Tobacco use Confirmed Active Social History Social History Type Response Smoking Status 5-9 cigarettes (betw een 1/4 to 1/2 pack)/day in last 30 days; Interested in cessation: No; Patient wants NRT during admission Yes; Type: Cigarettes entered on: 06/29/21 Sex Patient Care team information Personnel Name: Jaki Bishop MD Address: Address: [address] [place] [address]
--- OUTSIDE RECORDS SUMMARY | 2023-02-09 22:41 | XMS_ITS | Continuity of Care Document ---
Author Name Unknown Organization [facility] Address [address] [place] [address]- Care Team Providers Care Press Feeder Name Role Phone Jaki Bishop MD Primary Care Physician Encounter [facility] Date(s): 04/25/20 - 05/25/[address] [address]- Allergies, Adverse Reactions, Alerts Substance Reaction Severity [...] Given Permanently Refused 1Admin Note: VIS GIVEN [id number] 2Admin Note: VIS GIVEN 2008-12 3Admin Note: vis 4Admin Note: vis 02/06/08 Medications acetaminophen 325 mg oral tablet 1, tablet, By Mouth, 4 times a day, PRN, not to exceed 4 TABLETS PER DAY, # 60 tablet, Refills 0, Tot. Refills 0, Acute, NEEDED, 05/01/20 9:37:00 EST, Route to Pharmacy Electronically, [facility], 168, cm, 04/16/20 8:30:00 EST, Height, [...] 0 Refills, Maintenance, 04/16/20 11:06:00 EST, Tablet, [facility] [id number], Partial fill upon patient request if the prescription is for a schedule II opioid drug., 168,... Start Date: 04/16/20 Status: Ordered clozapine 50 mg oral tablet 3 tablet = 150 mg, By Mouth, Daily at bedtime, # 90 tablet, 0 Refills, Maintenance, 04/16/20 11:06:00 EST, Tablet, [facility] [id number], Partial fill upon patient request ifthe prescription is for a schedule II opioid drug.,... Start Date: 04/16/20 Status: Ordered Coreg 6.25 mg oral tablet 6.25 mg, 1, tablet, By Mouth, 2 times a day, # 60 tablet, Refills 0, Tot. Refills 0, Maintenance, 04/16/20 11:05:00 EST, Route to Pharmacy Electronically, [facility] [id number], Partial fill upon patient request, 168, cm, 03/22... Start Date: 04/16/20 Status: Ordered docusate sodium 100 mg oral capsule = 100 mg, By Mouth, 2 times a day, PRN Constipation., # 60 capsule, 3 Refills, Maintenance, 02/29/20 15:13:00 EST, Capsule, [facility] [id number], Partial fill upon patient request if the [...] Maintenance,04/16/20 11:06:00 EST, Route to Pharmacy Electronically, [facility] [id number], Partial fill upon patient request if the [...] mL, 1 Refills, Maintenance, 04/16/20 11:07:00 EST, [place], [place] - [id number],... Start Date: 04/16/20 Status: Ordered lactulose 10 gm/15 ml oral syrup 30 mL, By Mouth, 2 times a day, # 581 mL, 0 Refills, Acute, 03/25/20 11:49:00 EST, [facility], TAKE 30 ML BY MOUTH [...] Replace Required Details, Route to Pharmacy Electronically, [place], [place] - [id number], 168, cm, 04/16/20... Start Date: 05/01/20 Status: [...] 1 Refills, Maintenance, 08/07/19 14:23:00 EDT, Tablet, [place], [place] -, 1 tablet By Mouth Daily, [...] 0 Refills, Maintenance, 04/16/20 11:08:00 EST, [facility], [place], [place] - [id number], Partial fill upon patient request if the [...] 5 Refills, Maintenance, 03/05/20 16:50:00 EST, Tablet, [facility] [id number], this is an increased, 1 tablet By [...] Maintenance, 04/16/20 11:09:00 EST, Tablet, [facility] [id number], Partial fill upon patient request if the prescription is for a schedule II opioid drug., 168, cm, 01... Start Date: 04/16/20 Stop Date: 04/11/21 Status: Ordered Zenpep 10,000 units-32,000 units-42,000 units oral delayed release capsule 1 capsule, By Mouth, 3 times a day, # 90 capsule, 0 Refills, Maintenance, 04/16/20 11:09:00 EST, [facility] [id number], 1 capsule By Mouth 3 times a [...] Active H/O tubal ligation(Confirmed) Active BHN/ CP Estimator Paperboard Boxes/Janet salvador [facility] [phone](Confirmed) Active History of cholecystectomy(Confirmed) Active Hypertension(Confirmed) Active [...]
--- OUTSIDE RECORDS SUMMARY | 2023-02-09 22:41 | XMS_ITS | Continuity of Care Document ---
Author Name Unknown Organization [facility] Address [address] [place] [address]- Care Team Providers Care Seasonal Recruiter Name Role Phone Dario HAYDEN, Jaki Primary Care Physician [phone] [facility]counter [facility] Date(s): 02/24/22 - 03/26/[address] [address] Allergies, Adverse Reactions, Alerts Substance Reaction Severity [...] to COVID vaccine 2Admin Note: VIS GIVEN [id number] 3Admin Note: VIS GIVEN 2008- 4Admin Note: [...] 03/25/22 12:04:00 EST, Route to Pharmacy Electronically, [facility] 3, Partial fill uponpatient request if the prescription is for a schedu... Start Date: 03/25/22 Stop Date: 04/24/22 Status: Ordered cloNIDine 0.1 mg oral tablet 0.1 mg, 1, tablet, By Mouth, Daily, # 30 tablet, Refills 0, Tot. Refills 0, Maintenance, 03/25/22 12:04:00 EST, Route to Pharmacy Electronically, [facility] 3, Partial fill upon patient request if the prescription is for a schedule II opio... Start Date: 03/25/22 Stop Date: 04/24/22 Status: Ordered Coreg 6.25 mg oral tablet 6.25 mg, 1, tablet, By Mouth, 2 times a day, # 60 tablet, Refills 0, Tot. Refills 0, Maintenance, 03/25/22 12:04:00 EST, Route to Pharmacy Electronically, [facility], Partial fill upon patient request if the prescription is for a schedul... Start Date: 03/25/22 Stop Date: 04/24/22 Status: Ordered Creon 12,000 units oral delayed release capsule 1 capsule, By Mouth, 3 times a day, # 90 capsule, 0 Refills, Maintenance, 03/25/22 12:07:00 EST, ECCapsule, [facility], Partial fill upon patient request if the prescription is for a schedule II opioid drug., 167, cm, 03/25/22 3:14:00 E... Start Date: 03/25/22 Status: Ordered dextromethorphan-guaifenesin 10 mg-100 mg/5 mL oral liquid 5 mL, By Mouth, 4 times a day, PRN Cough, for 14 days, # 120 mL, 0 Refills, Acute 04/08/22 12:43:00EST, 03/25/22 12:43:00 EST, Syrup, [facility] 3, Partial fill upon patient request if the prescription is for a schedule II opioid drug., 5... Start Date: 03/25/22 Stop Date: 04/08/22 Status: Ordered diphenhydrAMINE 25 mg oral tablet = 25 mg, By Mouth, 3 times a day, PRN Agitation, # 50 tablet, 0 Refills, Acute 04/20/22 21:00:00 EST, 03/25/22 12:05:00 EST, Tablet, [facility] 3, Partial fill upon patient request if theprescription is for a schedule II opioid drug., 167... Start Date: 03/25/22 Stop Date: 04/20/22 Status: Ordered divalproex sodium 500 mg oral enteric coated tablet = 1,000 mg, By Mouth, 2 times a day, # 120 tablet, 0 Refills, Maintenance, 03/25/22 12:06:00 EST, Tablet, [facility] 3, Partial fill upon patient request [...] 03/25/22 12:06:00 EST, Route to Pharmacy Electronically, [facility], Partial fill upon patient [...] 04/24/22 12:43:00 EST, 03/25/22 12:43:00 EST, Capsule, [facility], Partial fill uponpatient request [...] 0 Refills, Maintenance, 03/25/22 12:08:00 EST, Injection, [facility]... Start Date: 03/25/22 Status: Ordered Lantus Solostar Pen 100 units/mL subcutaneous solution = 6 units, Subcutaneous Injection, Daily in AM, # 10 mL, 0 Refills, Maintenance, 03/25/22 12:08:00 EST, Solution, [facility] 3, Partial fill upon [...] 03/25/22 12:48:00 EST, Route to Pharmacy Electronically, [facility], Partial fill upon patient request if the prescription is for a schedule II... Start Date: 03/25/22 Stop Date: 04/24/22 Status: Ordered risperiDONE 3 mg oral tablet 3 mg, 1, tablet, By Mouth, Daily at bedtime, # 30 tablet, Refills 0, Tot. Refills 0, Maintenance, 03/25/22 12:48:00 EST, Route to Pharmacy Electronically, [facility], Partial fill upon patient request if the prescription is for a schedul... Start Date: 03/25/22 Status: Ordered thiamine 100 mg oral tablet 100 mg, 1, tablet, By Mouth, Daily, for 30 days, # 30 tablet, Refills 0, Tot. Refills 0, Acute 04/24/22 12:07:00 EST, 03/25/22 12:07:00 EST, Route to Pharmacy Electronically, [facility] 3, Partial fill upon patient request if the prescript... Start Date: 03/25/22 Stop Date: 04/24/22 Status: Ordered tiotropium 2.5 mcg/inh inhalation aerosol 2 puffs, Inhalation, Daily, # 1 each, 0 Refills, Maintenance, 03/25/22 12:09:00 EST, Inhaler, [facility] 3, Partial fill upon patient request if [...] Member Role: Primary Care Nurse Address: Address: [address] [place] [address] Name: Jong Suazo RN [facility] Primary Care Nurse Name: Monalisa Barker Position: [facility] [...] Position: [facility] ED RN W/OE and Tasks Member Role: [...] Member Role: Lifetime Consulting Physician Address: Address: [address] [place], [place] [address] [place], [place] [address] Name: Marilee Richardson RN Position: [facility] RN Member Role: Primary Care Nurse Name: Rufino Johnson RN Position: [facility] RN Member Role: Primary Care Nurse Name: Jovita Camargo RN Position: [facility] RN Member Role: Primary Care Nurse Name: Ju Zhu Position: [facility] RN Member Role: Primary Care Nurse Name: Arnoldroxane Ester Position: [facility] [...] Care Physician Member Role: PCP Address: Address: [address] [place] [address] Name: Lucian Krause RN Position: [facility] [...] Member Role: Primary Care Nurse Name: Laura aMry RN Position: [facility] [...] Name: Kinza De La Cruz RN Position: [facility] [...] Nurse Name: Imani RAMIREZ, Teresita Reyes Position: [facility] RN Member Role: Primary Care Nurse Name: Tennille Mcgarry RN Position: [facility] Hospital Welding Machine Operator Member Role: Primary Care Nurse [...] Persons Name: MARYANNE KELLER Address: home [address] [place] [address] Name: MARYANNE KELLER Address: home [address] [place] [address] Name: MARYANNE KELLER Address: home [address] [place] [address] Name: GEORGIA KELLER Address: [place] [address] Name: BALDEV POLANCO Address: [place] [address]
--- OUTSIDE RECORDS SUMMARY | 2023-02-09 22:41 | XMS_ITS | Continuity of Care Document ---
Author Name Unknown Organization [facility] Address [address] [place] [address]- Care Team Providers Care Powersaw Supervisor Name Role Phone Jaki Bishop MD Primary Care Physician Encounter [facility] Date(s): 05/01/21 - 06/12/[address] [address]- Attending Physician: Jaki Bishop MD Admitting Physician: [...] to COVID vaccine 2Admin Note: VIS GIVEN [id number] 3Admin Note: VIS GIVEN 2008- 4Admin Note: [...] MOUTH DAILY, # 90 tablet, 1 Refills, [facility], 150, TAKE ONE TABLET BY [...] Replace Required Details, Route to Pharmacy Electronically, [facility], 167.64, cm, 03/23/21 14:44:00 EST, Height, [...] [facility] [id number], Partial fill upon patient request if the [...] 2 Refills, Maintenance,05/08/21 12:22:00 EST, CR Capsule, [place], [place] - [id number], Partial fill upon patient request if the [...] Active H/O tubal ligation(Confirmed) Active BHN/ CP Tent Assembler/Janet salvador [facility] [phone](Confirmed) Active Heart failure(Confirmed) Active History of cholecystectomy(Confirmed) [...]
--- OUTSIDE RECORDS SUMMARY | 2023-02-09 22:41 | XMS_ITS | Continuity of Care Document ---
Author Name Unknown Organization [facility] Address [address] [place] [address]- Care Team Providers Care Ski Tow Operator Name Role Phone Jaki Bishop MD Primary Care Physician [phone] [place] [facility] [place] 12/31/21 - 02/07/[address] [address]- Attending Physician: Jaki Bishop MD Admitting Physician: [...] to COVID vaccine 2Admin Note: VIS GIVEN [id number] 3Admin Note: VIS GIVEN 2008- 4Admin Note: vis 5Admin Note: vis 02/06/08 Medications benztropine 1 mg oral tablet 0.5 mg, 0.5, tablet, By Mouth, 2 times a day, # 30 tablet, Refills 0, Tot. Refills 0, Maintenance, 02/02/22 9:36:00 EST, Route to Pharmacy Electronically, [facility] [id number], Partial fill upon patient request if the prescri... Start Date: 02/02/22 Status: Ordered cloNIDine 0.1 mg oral tablet 0.05 mg, 0.5, tablet, By Mouth, Daily, # 15 tablet, Refills 0, Tot. Refills 0, Maintenance, 02/02/22 9:36:00 EST, Route to Pharmacy Electronically, [facility] [id number], Partial fill upon patient request if the prescription i... Start Date: 02/02/22 Status: Ordered Coreg 6.25 mg oral tablet 6.25 mg, 1, tablet, By Mouth, 2 times a day, # 60 tablet, Refills 0, Tot. Refills 0, Maintenance, 02/02/22 9:36:00 EST, Route to Pharmacy Electronically, [facility] [id number], Partial fill upon patient request if the prescrip... Start Date: 02/02/22 Status: Ordered Creon 12,000 units oral delayed release capsule 1 capsule, By Mouth, 3 times a day, # 90 capsule, 0 Refills, Maintenance, 02/02/22 9:39:00 EST, EC Capsule, [facility] [id number], Partial fill upon patient request if the prescription is for a schedule II opioid drug., 167, c... Start Date: 02/02/22 Status: Ordered divalproex sodium 500 mg oral enteric coated tablet 1 tablet = 500 mg, By Mouth, 2 times a day, # 60 tablet, 0 Refills, Maintenance, 02/02/22 9:36:00 EST, Tablet, [facility] [id number], Partial fill upon patient request if theprescription is for a schedule II opioid drug., 167... Start Date: 02/02/22 Status: Ordered folic acid 1 mg oral tablet 1 mg, 1, tablet, By Mouth, Daily, # 30 tablet, Refills 1, Tot. Refills 1, Maintenance, 02/02/22 9:36:00 EST, Route to Pharmacy Electronically, [facility] [id number], Partial fill upon patient request if the prescription is for... Start Date: 02/02/22 Status: Ordered losartan 50 mg oral tablet 50 mg, 1, tablet, By Mouth, Daily, # 30 tablet, Refills 0, Tot. Refills 0, Maintenance, 02/02/22 9:37:00 EST, Route to Pharmacy Electronically, [facility] [id number], Partialfill upon patient request if the prescription is fo... Start Date: 02/02/22 Status: Ordered melatonin 3 mg oral tablet 1 tablet = 3 mg, By Mouth, Daily at bedtime, PRN Insomnia, # 30 tablet, 0 Refills, Maintenance, 02/02/22 9:37:00 EST, Tablet, [facility] [id number], Partial fill upon patientrequest if the prescription [...] 02/02/22 9:39:00 EST, Route to Pharmacy Electronically, [place], [place] - [id number],Partial fill upon patient request if the prescripti... Start Date: 02/02/22 Status: Ordered torsemide 20 mg oral tablet 1 tablet = 20 mg, By Mouth, 2 times a day, # 60 tablet, 0 Refills, Maintenance, 02/02/22 9:40:00 EST, Tablet, [place], [place] - [id number], Partial fill upon patient request if the [...] Team Personnel Name: Daniel Gamino RN Position: [facility] RN Member Role: Primary Care Nurse Name: Lawrence Hendrix Position: [facility] RN [...] Nurse Member Role: Primary Care Nurse Name: Larissa Neely RN Position: [facility] RN Member Role: Primary Care Nurse Name: Rohit Zavaleta RN Position: [facility] RN Member Role: Primary Care Nurse Name: Erlinda Hartman NP Position: [facility] Associate Professional Member Role: Primary Care Nurse Address: Address: [address] [place] [address] Name: Jong Suazo RN Position: [facility] RN Supv Member Role: Primary Care Nurse Name: Shante Solis RN Position: [facility] RN Member Role: Primary Care Nurse Name: Bettie Vanegas RN Position: [facility] RN Member Role: [...] Primary Care Nurse Name: Monalisa Barker Position: [facility] RN Member Role: Primary [...] Name: Chela Najera RN Position: [facility] ED RN W/OE and Tasks Member [...] Care Nurse Name: Kiran Molina RN Position: [facility] RN Member Role: Primary Care Nurse Name: Flaco Clifford DO Position: [facility] Renal MD Member Role: Lifetime Consulting Physician Address: Address: [address] [place], [place] [address] [place] [address]- Name: Marilee Richardson RN Position: [facility] [...] Care Nurse Name: Kristen Gar RN Position: [facility] RN Member Role: Primary Care Nurse Name: Luis Burton RN Position: [facility] RN Member Role: Primary Care Nurse Name: Jaki Bishop MD Position: [facility] Primary Care Physician Member Role: PCP Address: Address: [address] [place] [id number]- Name: Leslie Ward RN Position: [facility] [...] Name: Kinza De La Cruz RN Position: [facility] RN Member Role: Primary Care Nurse Name: Veronica Queen RN Position: [facility] RN Member Role: [...] Care Nurse Name: Teresita Diallo RN Position: [facility] RN Member Role: Primary Care Nurse Name: Tennille Mcgarry RN Position: [facility] Hospital Heat Treater Apprentice Member Role: Primary Care Nurse Name: Vicky Salazar RN Position: [facility] RN Member Role: Primary Care Nurse Name: Jalen Mullins Position: [facility] RN Member Role: Primary Care Nurse Care Team Related Persons Name: MARYANNE KELLER Address: [address] [place] [address] Name: MARYANNE KELLER Address: home [address] [facility] [facility] [address] [place] [id number] Name: GEORGIA KELLER Address: [place] [address] Name: BALDEV POLANCO Address: [place], [place]
--- OUTSIDE RECORDS SUMMARY | 2023-02-09 22:41 | XMS_ITS | Continuity of Care Document ---
Author Name Unknown Organization [facility] Address [address] [place] [address]- Care Team Providers Care X Ray Inspector Name Role Phone Dario HAYDEN, Jaki Primary Care Physician [phone] [facility]counter [facility] Date(s): 07/14/20 - 08/13/20 [facility] [address] [place], [place] [address] Allergies, Adverse Reactions, Alerts [...] Given Permanently Refused 1Admin Note: VIS GIVEN [id number] 2Admin Note: VIS GIVEN 2008-12 3Admin Note: vis 4Admin Note: vis 02/06/08 Medications acetaminophen 325 mg oral tablet 1, tablet, By Mouth, 4 times a day, PRN, not to exceed 4 TABLETS PER DAY. Not to exceed 2000 mg/day. PRN Pain, # 60 tablet, Refills 0, Tot. Refills 0, Maintenance, NEEDED, 07/22/20 10:39:00 EDT, Route to Pharmacy Electronically, [facility] -... Start Date: 07/22/20 Status: Ordered [...] 0 Refills, Maintenance, 04/16/20 11:06:00 EST, Tablet, [place], [place] - [id number], Partial fill upon patient request if the prescription is for a schedule II opioid drug., 168,... Start Date: 04/16/20 Status: Ordered clozapine 50 mg oral tablet 3 tablet = 150 mg, By Mouth, Daily at bedtime, # 90 tablet, 0 Refills, Maintenance, 04/16/20 11:06:00 EST, Tablet, [place], [place] - [id number], Partial fill upon patient request ifthe prescription is for a schedule II opioid drug.,... Start Date: 04/16/20 Status: Ordered Comfort EZ Pen [place] 31 gauge x 5/16 Comfort EZ Pen [place] 31 gauge x 5/16 , See Instructions, [...] 05/26/20 14:41:00 EST, Route to Pharmacy Electronically, [facility] [id number], Partial fill upon patient request if the prescr... Start Date: 05/26/20 Stop Date: 11/22/20 Status: Ordered docusate sodium 100 mg oral capsule = 100 mg, By Mouth, 2 times a day, PRN Constipation., # 60 capsule, 5 Refills, Maintenance, 07/21/20 10:54:00 EDT, Capsule, [facility] [id number], Partial fill upon patient request if the [...] Maintenance,05/28/20 13:46:00 EST, Route to Pharmacy Electronically, [facility] [id number], Partial fill upon patient request if the [...] K86.1, K74.6, E11.65. Fax to Anna ( [facility], #[phone]), 06/06/20 19... Start Date: 06/06/20 Status: Ordered [...] mL, 1 Refills, Maintenance, 04/16/20 11:07:00 EST, [place], [place] - [id number],... Start Date: 04/16/20 Status: Ordered lactulose 10 gm/15 ml oral syrup 30 mL, By Mouth, 2 times a day, # 581 mL, 3 Refills, Maintenance, 06/27/20 11:11:00 EDT, [facility] [id number], 10, 30 mL By Mouth 2 times [...] 3 Refills, Maintenance, 07/29/20 10:17:00 EDT, Solution, [facility], [place] - [id number], 168, cm, 04/16/20 8:30:00 EST, Height, 98.7, kg, 03/22... Start Date: 07/29/20 Status: Ordered loratadine 10 mg oral tablet See Instructions, TAKE ONE TABLET BY MOUTH DAILY, # 30 tablet, Refills 5, Tot. Refills 5, 05/01/20 8:18:00 EST, Instructions Replace Required Details, Route to Pharmacy Electronically, [facility], [place] - [id number], 168, cm, 04/16/20... Start Date: 05/01/20 Status: Ordered multivitamin Multiple Vitamins oral tablet 1 tablet, By Mouth, Daily, # 90 tablet, 1 Refills, Maintenance, 05/26/20 13:28:00 EST, Tablet, [facility], [place] - [id number], 1 tablet By Mouth Daily, 168, cm, [...] 0 Refills, Maintenance, 04/16/20 11:08:00 EST, Gum, [place], [place] - [id number], Partial fill upon patient request if the [...] 5 Refills, Maintenance, 07/14/20 16:30:00 EDT, Tablet, [place], [place] - [id number], this is an increased, 1 tablet By Mouth 2 times a day,x30 days, 168, cm, 04/16/20 8:30:00 EST, Heigh... Start Date: 07/14/20 Stop Date: 01/10/21 Status: Ordered torsemide 20 mg oral tablet 1 tablet = 20 mg, By Mouth, Daily, # 30 tablet, 1 Refills, Maintenance, 04/16/20 11:09:00 EST, Tablet, [place], [place] - [id number], Partial fill upon patient request if the prescription is for a schedule II opioid drug., 168, cm, 01... Start Date: 04/16/20 Stop Date: 04/11/21 Status: Ordered Zenpep 10,000 units-32,000 units-42,000 units oral delayed release capsule 1 capsule, By Mouth, 3 times a day, # 90 capsule, 0 Refills, Maintenance, 04/16/20 11:09:00 EST, [place], [place] - [id number], 1 capsule By Mouth 3 times a [...] Active H/O tubal ligation(Confirmed) Active BHN/ CP Canoe Inspector Final[facility] [phone](Confirmed) Active History of cholecystectomy(Confirmed) Active Hypertension(Confirmed) Active [...]
--- OUTSIDE RECORDS SUMMARY | 2023-02-09 22:41 | XMS_ITS | Continuity of Care Document ---
Author Name Unknown Organization [facility] ter Address [address] [place] [address]- Care Team Providers Care Senior Benefits Specialist Name Role Phone Jaki Bishop MD Primary Care Physician [facility] Date(s): 12/19/18 - 02/28/[address] [address]- [facility] Attending Physician: Jaki Bishop MD Admitting [...] Given Patient Refuses 1Admin Note: VIS GIVEN [id number] 2Admin Note: VIS GIVEN 2008-12 3Admin Note: vis 4Admin Note: vis 02/06/08 Medications acetaminophen 325 mg oral tablet 325 mg, 1, tablet, By Mouth, 4 times a day, PRN, No more than 4 tablets per day, # 60 tablet, Refills 11, Tot. Refills 11, Acute 10/05/19 12:00:00 EDT, for pain, 10/03/18 14:57:21 EDT, Route to Pharmacy Electronically, [id number]... Start Date: 10/03/18 Stop Date: 10/05/19 Status: [...] 07/19/18 9:04:24 EDT, Route to Pharmacy Electronically, [id number], [facility] [id number] Start Date: 07/19/18 Status: Ordered docusate sodium 100 mg oral capsule 100 mg, 1, capsule, By Mouth, 2 times a day, # 60 capsule, Refills 11, Tot. Refills 11, Maintenance, 02/21/19 14:45:44 EST, Route to Pharmacy Electronically, [id number], [place], [place] -, 168, cm, 02/14/19... Start Date: 02/21/19 Stop Date: 02/16/20 Status: Ordered Ensure (Vanilla Flavor) Ensure (Vanilla Flavor), See Instructions, # 60 each, Refills 11, Tot. Refills 11, Maintenance, Drink 1 can BID. Diagnosis: Chronic Pancreatitis, Cirrhosis. ICD10 K86.1, K74.6, Fax to Anna( [facility], #[phone]), 12/06/17 13:28:49 EDT, Compound Start Date: 12/06/17 Status: Ordered gabapentin 100 mg oral capsule 100 mg, 1, capsule, By Mouth, 2 times a day, # 60 capsule, Refills 6, Tot. Refills 6, Maintenance, 07/19/18 9:05:59 EDT, Route to Pharmacy Electronically, [id number], [facility] [id number] Start Date: 07/19/18 Stop Date: 02/14/19 Status: Ordered multivitamin Multiple Vitamins oral tablet 1 tablet, By Mouth, Daily, # 90 tablet, 6 Refills, Maintenance, 07/19/18 9:06:37 EDT, Tablet, 1 tablet By Mouth Daily Start Date: 07/19/18 Status: Ordered pantoprazole 40 mg oral delayed release tablet See Instructions, # 30 tablet, Refills 2 Tot. Refills 2, TAKE 1 TABLET BY MOUTH DAILY FOR STOMACH ACID, [id number] Start Date: 11/28/18 Status: Ordered Please draw CBC with dif (for ANC) weekly and fax results to: Attn Dr. Mariano Andrade, Outpatient Psychi Please draw CBC with dif (for ANC) weekly and fax results to: Attn Dr. Mariano Andrade, Outpatient Psychiatry, at [phone]., See Instructions, # 1 application, Refills 0, [...] EDT, Compound Start Date: 08/24/17 Status: Ordered torsemide 20 mg oral tablet TAKE ONE TABLET BY MOUTH DAILY. INCREASE TO 40mg DAILY IF weight gain OF >3lbs IN 2 DAYS OR 5lbsIN 1 WEEK Start Date: 02/23/19 Status: Ordered Walker with wheels Walker with [...] no findings sarcoid 2012 liver biopsy)(Confirmed) Active Dyshidrotic eczema(Confirmed) Active General medical(Confirmed) Active History of splenectomy(Confirmed) Active H/O tubal ligation(Confirmed) Active BHN/BH CP Desolderer/Janet Pandey [phone](Confirmed) Active History of cholecystectomy(Confirmed) Active Hypertension(Confirmed) Active Incisional hernia(Confirmed) Active Nicotine dependence(Confirmed) Active Obesity (BMI 30.0-34.9)(Confirmed) Active Pulmonary HTN, Severe(Confirmed) Active Steatohepatitis (w/Stage III Fibrosis, Liver Biopsy 05/2012)(Confirmed) Active Social History Social History Type Response Tobacco Use: 4 or less cigar ettes(less than 1/4 pack)/day in last 30 days. Started at age: 15 Years. Sex
--- OUTSIDE RECORDS SUMMARY | 2023-02-09 22:41 | XMS_ITS | Continuity of Care Document ---
Author Name Unknown Organization [facility] Address [address] [place] [address]- Care Team Providers Care Environmental Construction Engineer Name Role Phone Jaki Bishop MD Primary Care Physician [phone] [facility]counter [facility] Date[facility]s): 12/01/[facility] - 12/31/[address] [address]- Allergies, Adverse Reactions, Alerts Substance Reaction Severity [...] to COVID vaccine 2Admin Note: VIS GIVEN [id number] 3Admin Note: VIS GIVEN 2008-12 4Admin Note: [...] 0 Refills, Maintenance, 11/28/20 9:22:00 EDT, Solution, [facility], Partial fill upon patient request if the prescription is for a schedule II opioid drug., 167.64, cm, 11/27... Start Date: 11/28/20 Status: Ordered benztropine 0.5 mg oral tablet 0.5 mg, 1, tablet, By Mouth, 2 times a day, # 60 tablet, Refills 0, Tot. Refills 0, Maintenance, 11/28/20 9:27:00 EDT, Route to Pharmacy Electronically, [facility], Partial fill upon patient request if the prescription is for a schedule... Start Date: 11/28/20 Status: Ordered Cane See Instructions, # 1 each, Maintenance, [id number], includes canes of all materials, adjustable orfixed, with tip, 11/28/20 9:32:00 EDT, Supply, 167.64, cm, 11/27/20 22:30:00 EDT, Height, 98.5, kg,10/22/20 17:50:00 EDT, Dry Weight Start Date: 11/28/20 Status: Ordered clozapine 100 mg oral tablet 1 tablet = 100 mg, By Mouth, 2 times a day, # 60 tablet, 0 Refills, Maintenance, 11/28/20 9:20:00 EDT, Tablet, [facility], Partial fill upon patient request if the prescription is for aschedule II opioid drug., 167.64, cm, 11/27/20 22:3... Start Date: 11/28/20 Status: Ordered Coreg 12.5 mg oral tablet 12.5 mg, 1, tablet, By Mouth, 2 times a day, # 60 tablet, Refills 0, Tot. Refills 0, Maintenance, 11/28/20 9:20:00 EDT, Route to Pharmacy Electronically, [facility], Partial fill upon patient [...] 01/27/21 9:24:00 EST, 11/28/20 9:24:00 EDT, Syrup, [facility], Partial fill upon patient request if theprescription is for a schedule II opioid drug., 30... Start Date: 11/28/20 Stop Date: 01/27/21 Status: Ordered loratadine 10 mg oral tablet 10 mg, 1, tablet, By Mouth, Daily, # 30 tablet, Refills 0, Tot. Refills 0, Maintenance, 11/28/20 9:25:00 EDT, Route to Pharmacy Electronically, [facility], Partial fill upon patient request if the prescription is for a schedule II opioid... Start Date: 11/28/20 Status: Ordered Maalox Plus Liquid 30 mL, By Mouth, Every 8 hours, PRN Indigestion, 0 Refills, Maintenance, 08/28/20 16:23:00 EDT, Suspension, Partial fill upon patient request if the prescription is for a schedule II opioid drug. Start Date: 08/28/20 Status: Ordered Nicotine 2 mg gum = 2 mg, Chew, Every 2 hours, PRN Other, for 6 week(s), Nicotine Cravings, # 40 each, 1 Refills, Acute 02/20/21 9:25:00 EST, 11/28/20 9:25:00 EDT, Gum, [facility], Partial fill upon patient request if the prescription is for a schedule II... Start Date: 11/28/20 Stop Date: 02/20/21 Status: Ordered pancrelipase 10,000 units-32,000 units-42,000 units oral delayed release capsule 1 capsule, By Mouth, 3 times a day, with each meal and snack, # 90 capsule, 0 Refills, Maintenance,11/28/20 9:26:00 EDT, CR Capsule, [facility], Partial fill upon patient [...] 0 Refills, Maintenance, 11/28/20 9:27:00 EDT, Nasal [place], [facility], Partial fill upon patient request if the prescription is for a schedule II opioid drug., 2 sprays... 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
--- OUTSIDE RECORDS SUMMARY | 2023-02-09 22:41 | XMS_ITS | Continuity of Care Document ---
Author Name Unknown Organization [facility] Address [address] [place] [address]- Care Team Providers Care Glaze Sprayer Name Role Phone Jaki Bishop MD Primary Care Physician [phone] [facility]counter [facility] Date[facility]s): 12/04/20 - 01/03/[address] [address]- Allergies, Adverse Reactions, Alerts Substance Reaction Severity [...] to COVID vaccine 2Admin Note: VIS GIVEN [id number] 3Admin Note: VIS GIVEN 2008-12 4Admin Note: [...] 0 Refills, Maintenance, 11/28/20 9:22:00 EDT, Solution, [facility], Partial fill upon patient request if the prescription is for a schedule II opioid drug., 167.64, cm, 11/27... Start Date: 11/28/20 Status: Ordered benztropine 0.5 mg oral tablet 0.5 mg, 1, tablet, By Mouth, 2 times a day, # 60 tablet, Refills 0, Tot. Refills 0, Maintenance, 11/28/20 9:27:00 EDT, Route to Pharmacy Electronically, [facility], Partial fill upon patient request if the prescription is for a schedule... Start Date: 11/28/20 Status: Ordered Cane See Instructions, # 1 each, Maintenance, [id number], includes canes of all materials, adjustable orfixed, with tip, 11/28/20 9:32:00 EDT, Supply, 167.64, cm, 11/27/20 22:30:00 EDT, Height, 98.5, kg,10/22/20 17:50:00 EDT, Dry Weight Start Date: 11/28/20 Status: Ordered clozapine 100 mg oral tablet 1 tablet = 100 mg, By Mouth, 2 times a day, # 60 tablet, 0 Refills, Maintenance, 11/28/20 9:20:00 EDT, Tablet, [facility], Partial fill upon patient request if the prescription is for aschedule II opioid drug., 167.64, cm, 11/27/20 22:3... Start Date: 11/28/20 Status: Ordered Coreg 12.5 mg oral tablet 12.5 mg, 1, tablet, By Mouth, 2 times a day, # 60 tablet, Refills 0, Tot. Refills 0, Maintenance, 11/28/20 9:20:00 EDT, Route to Pharmacy Electronically, [facility], Partial fill upon patient request if [...] 01/27/21 9:24:00 EST, 11/28/20 9:24:00 EDT, Syrup, [facility], Partial fill upon patient request if theprescription is for a schedule II opioid drug., 30... Start Date: 11/28/20 Stop Date: 01/27/21 Status: Ordered loratadine 10 mg oral tablet 10 mg, 1, tablet, By Mouth, Daily, # 30 tablet, Refills 0, Tot. Refills 0, Maintenance, 11/28/20 9:25:00 EDT, Route to Pharmacy Electronically, [facility], Partial fill upon patient request [...] 02/20/21 9:25:00 EST, 11/28/20 9:25:00 EDT, Gum, [facility], Partial fill upon patient request if the prescription is for a schedule II... Start Date: 11/28/20 Stop Date: 02/20/21 Status: Ordered pancrelipase 10,000 units-32,000 units-42,000 units oral delayed release capsule 1 capsule, By Mouth, 3 times a day, with each meal and snack, # 90 capsule, 0 Refills, Maintenance,11/28/20 9:26:00 EDT, CR Capsule, [facility], Partial fill upon patient request [...] 0 Refills, Maintenance, 11/28/20 9:27:00 EDT, Nasal [place], [facility], Partial fill upon patient request if the prescription is for a schedule II opioid drug., 2 sprays... 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
--- OUTSIDE RECORDS SUMMARY | 2023-02-09 22:41 | XMS_ITS | Continuity of Care Document ---
Author Name Unknown Organization [facility] Address [address] [place] [address]- Care Team Providers Care Retort Furnace Operator Name Role Phone Dario HAYDEN, Jaki Primary Care Physician [facility] Date[facility]s): 10/01/19 - 10/31/19 [facility] [address] [place] [address]- [facility] Allergies, Adverse Reactions, Alerts Substance Reaction Severity [...] Given Permanently Refused 1Admin Note: VIS GIVEN [id number] 2Admin Note: VIS GIVEN 2008-12 3Admin Note: vis 4Admin Note: vis 02/06/08 Medications acetaminophen 325 mg oral tablet 1, tablet, By Mouth, 4 times a day, PRN, no MORE THAN 4 TABLETS PER DAY., # 60 tablet, Refills 2, Tot. Refills 0, Acute, NEEDED, 08/07/19 23:17:00 EDT, Route to Pharmacy Electronically, [facility], 166, cm, 05/28/19 11:08:00 EDT, [...] 08/07/19 14:24:00 EDT, Route to Pharmacy Electronically, [place], [place] -, 166, cm, 05/28/19 11:08:00 EDT, [...] 02/21/19 14:45:44 EST, Route to Pharmacy Electronically, [id number], [place], [place] -, 168, cm, 02/14/19... Start Date: [...] Maintenance,03/27/19 16:10:00 EST, Route to Pharmacy Electronically, [id number], 166, cm, 03/27/19 15:26:00 EST, Height, 91.8, [...] K86.1, K74.6, E11.65. Fax to Anna ( [facility], #[phone]), 07/26/19 15... Start Date: 07/26/19 Status: Ordered Golytely - oral powder for reconstitution See Instructions, split prep, # 4,000 mL, 0 Refills, Maintenance, 09/24/19 14:15:00 EDT, REC Powder, [place], [place] -, split prep, 166, cm, 09/24/19 [...] mL, 6 Refills, Maintenance, 05/04/19 12:52:00 EST, [place], [place] - , Humalog ins... Start Date: [...] Refills, Maintenance, 07/26/19 8:25:00 EDT, REC Powder, [place], [place] -, 17 Gm By Mouth 2 times a day,PRN:Oth... Start Date: 07/26/19 Status: Ordered MiraLax Powder = 17 Gm, By Mouth, 2 times a day, 0 Refills, Maintenance, 10/11/19 0:39:00 EDT Start Date: 10/11/19 Status: Ordered multivitamin Multiple Vitamins oral tablet 1 tablet, By Mouth, Daily, # 90 tablet, 1 Refills, Maintenance, 08/07/19 14:23:00 EDT, Tablet, [place], [place] -, 1 tablet By Mouth Daily, [...] Weight Start Date: 10/29/19 Status: Ordered Pen [place], 31 G x 8 mm BD Ultra [...] Attn Dr. Mariano Andrade, Outpatient Psychiatry, at [phone]., See Instructions, # 1 application, Refills 0, [...] 5 Refills, Maintenance, 08/27/19 7:36:00 EDT, Tablet, [facility] - [place], [place] -, this is an increased, 1 [...] 04/20/19 10:38:00 EST, Route to Pharmacy Electronically, [facility][id number], 166, cm, 04/20/19 10:17:00 EST, Height, 91.8, kg, 02/23/19 17:03:00 EST, Start Date: 04/20/19 Status: Ordered torsemide 20 mg oral tablet 2 tablet = 40 mg, Daily, 0 Refills, Maintenance, 10/10/19 23:41:00 EDT Start Date: 10/10/19 Status: Ordered torsemide 20 mg oral tablet 2 tablet = 40 mg, By Mouth, Daily, # 180 tablet, 11 Refills, Maintenance, 04/20/19 10:38:00 EST, Tablet, [facility] #[id number], Replaces lower dose, 166, cm, 04/20/19 10:17:00 [...] Active H/O tubal ligation(Confirmed) Active BHN/BH CP Die Setter/Janet Pandey [phone](Confirmed) Active History of cholecystectomy(Confirmed) Active Hypertension(Confirmed) Active [...]
--- OUTSIDE RECORDS SUMMARY | 2023-02-09 22:42 | XMS_ITS | Continuity of Care Document ---
Author Name Unknown Organization [facility] Address [address] [place] [address]- Care Team Providers Care Buyers' Agent Name Role Phone Dario HAYDEN, Jaki Primary Care Physician [facility] Date(s): 05/13/22 - 06/12/[address] [address] Allergies, Adverse Reactions, Alerts Substance [...] to COVID vaccine 2Admin Note: VIS GIVEN [id number] 3Admin Note: VIS GIVEN 2008- 4Admin Note: [...] 04/29/22 14:29:00 EST, Route to Pharmacy Electronically, [facility] [id number], Partial fill upon patient request if the prescr... Start Date: 04/29/22 Stop Date: 08/27/22 Status: Ordered cloNIDine 0.1 mg oral tablet 0.1 mg, 1, tablet, By Mouth, Daily, # 30 tablet, Refills 3, Tot. Refills 3, Maintenance, 04/29/22 14:29:00 EST, Route to Pharmacy Electronically, [facility] [id number], Partial fill upon patient request if the prescription is... Start Date: 04/29/22 Stop Date: 08/27/22 Status: Ordered Coreg 6.25 mg oral tablet 6.25 mg, 1, tablet, By Mouth, 2 times a day, # 60 tablet, Refills 3, Tot. Refills 3, Maintenance, 04/29/22 14:29:00 EST, Route to Pharmacy Electronically, [facility] [id number], Partial fill upon patient request if the prescri... Start Date: 04/29/22 Stop Date: 08/27/22 Status: Ordered Creon 12,000 units oral delayed release capsule 1 capsule, By Mouth, 3 times a day, # 90 capsule, 3 Refills, Maintenance, 04/29/22 14:37:00 EST, ECCapsule, [place], [place] - [id number], Partial fill upon patient request if the prescription is for a schedule II opioid drug., 167,... Start Date: 04/29/22 Status: Ordered diphenhydrAMINE 25 mg oral tablet 1 tablet = 25 mg, By Mouth, 3 times a day, for 30 days, PRN Agitation, # 90 tablet, 1 Refills, Acute 06/28/22 15:55:00 EDT, 04/29/22 15:55:00 EST, Tablet, [facility] [id number], Partial fill upon patient request if the prescri... Start Date: 04/29/22 Stop Date: 06/28/22 Status: Ordered divalproex sodium 500 mg oral enteric coated tablet 1 tablet = 500 mg, By Mouth, 2 times a day, # 60 tablet, 3 Refills, Maintenance, 04/29/22 14:33:00 EST, Tablet, [facility] [id number], Partial fill upon patient request if the prescription is for a schedule II opioid drug., 16... Start Date: 04/29/22 Stop Date: 08/27/22 Status: Ordered folic acid 1 mg oral tablet 1, tablet, By Mouth, Daily, # 30 tablet, Refills 1, Maintenance, 06/01/22 16:34:00 EDT, Route to Pharmacy Electronically, [facility], 167, cm, 03/25/22 3:14:00 EST, Height, [...] 0 Refills, Maintenance, 04/08/22 16:16:00 EST, Liquid, [facility] [id number], Partial fill upon patient request if the [...] mL, 1 Refills, Maintenance, 06/03/22 16:20:00 EDT, [place], [place] - [id number], 20, TAKE 30mls BY MOUTH two (2) times a day, 167, cm, 03/25/22 3:14:00 EST, Height, 1... Start Date: 06/03/22 Status: Ordered Lantus Solostar Pen 100 units/mL subcutaneous solution = 6 units, Subcutaneous Injection, Daily in AM, # 10 mL, 2 Refills, Maintenance, 04/29/22 14:34:00 EST, Solution, [facility] [id number], Partial fill upon patient request if the prescription is for a schedule II opioid drug.,... Start Date: 04/29/22 Status: Ordered multivitamin Multiple Vitamins oral tablet 1 tablet, By Mouth, Daily, # 90 tablet, 1 Refills, Maintenance, 04/02/22 16:44:00 EST, Tablet, [facility] [id number], Partial fill upon patient request if the [...] Pharmacy Electronically, [facility] [id number], Partial fill upon patient request if the prescription... Start Date: 04/29/22 Stop Date: 08/27/22 Status: Ordered risperiDONE 3 mg oral tablet 3 mg, 1, tablet, By Mouth, Daily at bedtime, # 30 tablet, Refills 3, Tot. Refills 3, Maintenance, 04/29/22 14:39:00 EST, Route to Pharmacy Electronically, [place], [place] - [id number], Partial fill upon patient request if the prescri... Start Date: 04/29/22 Status: Ordered thiamine 100 mg oral tablet 100 mg, 1, tablet, By Mouth, Daily, for 30 days, # 30 tablet, Refills 3, Tot. Refills 3, Acute 08/27/22 14:40:00 EDT, 04/29/22 14:40:00 EST, Route to Pharmacy Electronically, [place], [place] - [id number], Partial fill upon patient re... Start Date: 04/29/22 Stop Date: 08/27/22 Status: Ordered tiotropium 2.5 mcg/inh inhalation aerosol 2 puffs, Inhalation, Daily, # 1 each, 0 Refills, Maintenance, 03/25/22 12:09:00 EST, Inhaler, [facility] 3, Partial fill upon patient request [...] Care Team Personnel Name: Lawrence Hendrix Position: [facility] RN Supv Member [...] Member Role: Primary Care Nurse Address: Address: [address] [place] [address] Name: Jong Suazo RN Position: [facility] RN Supv Member Role: Primary Care Nurse Name: Shante Solis RN Position: [facility] RN Member Role: Primary Care Nurse Name: Joshua Prakash RN Position: [facility] RN Member Role: Primary Care Nurse Name: Bettie Vanegas RN Position: [facility] SN RN Member Role: Primary Care Nurse Name: Jay Marroquin RN Position: [facility] RN Member Role: Primary Care Nurse Name: Adrianna Church RN Position: [facility] RN Member [...] Care Nurse Name: Monalisa Barker LPN Position: [facility] AMB Nurse Member Role: Primary Care Nurse Name: Leslie Malloy RN Position: [facility] RN Member Role: Primary Care Nurse Name: Yesenia Hu LPN Position: [facility] RN Member Role: [...] Care Nurse Name: Flaco Clifford DO Position: [facility] Renal MD Member Role: Lifetime Consulting Physician Address: Address: [address] [place] [address] [facility] [place] [place] [address]- Name: Marilee Richardson RN [facility] Care Nurse Name: Bhavna Rendon LPN Position: [facility] RN Member Role: Primary Care Nurse Name: Luis Burton RN Position: [facility] RN Member Role: Primary Care Nurse Name: Jaki Bishop MD Position: [facility] Primary Care Physician Member Role: PCP Address: Address: [address] [place] [address]- [place] Name: Lucian Krause RN Position: [facility] RN Member Role: Primary Care Nurse Name: Leslie Ward RN [facility] Care Nurse Name: Nazia Tapia RN Position: [facility] RN Member Role: Primary Care Nurse Name: Caren Hernandez RN Position: [facility] RN Supv Member Role: Primary Care Nurse Name: Veronica Queen RN Position: [facility] RN Member Role: Primary Care Nurse Name: Perri Bryant RN Position: [facility] RN Member Role: Primary Care Nurse Name: Alba Toro RN Position: [facility] RN Member [...] Care Nurse Name: Teresita Diallo RN Position: [facility] RN Member Role: Primary Care Nurse Name: Tennille Mcgarry RN Position: [facility] Hospital Heat Reader Member Role: Primary Care Nurse Name: Vicky Salazar RN Position: [facility] RN Member Role: Primary Care Nurse Name: Spencer Jameson RN Position: [facility] RN Member Role: Primary Care Nurse Name: Jalen Mullins Position: [facility] RN Member Role: Primary Care Nurse Care Team Related Persons Name: MARYANNE KELLER Address: home [address] [place] [address] Name: MARYANNE KELLER Address: home [address] [address] Name: MARYANNE KELLER JR Address: home [address] [place] [address] Name: GEORGIA KELLER Address: [place] [address] Name: BALDEV POLANCO Address: [place] [address]
--- OUTSIDE RECORDS SUMMARY | 2023-02-09 22:42 | XMS_ITS | Continuity of Care Document ---
Author Name Unknown Organization [facility] Address [address] [place] [address]- Care Team Providers Care Spar Machine Operator Helper Name Role Phone Dario HAYDEN, Jaki Primary Care Physician [phone] Encounter [facility] ACCT R [id number] Date(s): 05/28/19 - 06/07/[address] [address]- [facility] Attending Physician: Admtr, Darin8 Allergies, Adverse Reactions, [...] Given Patient Refuses 1Admin Note: VIS GIVEN [id number] 2Admin Note: VIS GIVEN 2008-12 3Admin Note: vis 4Admin Note: vis 02/06/08 Medications acetaminophen 325 mg oral tablet 325 mg, 1, tablet, By Mouth, 4 times a day, PRN, No more than 4 tablets per day, # 60 tablet, Refills 11, Tot. Refills 11, Acute 10/05/19 12:00:00 EDT, for pain, 10/03/18 14:57:21 EDT, Route to Pharmacy Electronically, [id number]... Start Date: 10/03/18 Stop Date: 10/05/19 Status: [...] 05/02/19 13:58:00 EST, Route to Pharmacy Electronically, [facility] [place], [place] -, 166, cm, 04/30/19 10:41:00 EST, Height, 91.8, kg, 02/23/19 17... Start Date: 05/02/19 Status: Ordered docusate sodium 100 mg oral capsule 100 mg, 1, capsule, By Mouth, 2 times a day, # 60 capsule, Refills 11, Tot. Refills 11, Maintenance, 02/21/19 14:45:44 EST, Route to Pharmacy Electronically, [id number], [place], [place] -, 168, cm, 02/14/19... Start Date: 02/21/19 Stop Date: 02/16/20 Status: Ordered Ensure (Vanilla Flavor) Ensure (Vanilla Flavor), See Instructions, # 60 each, Refills 11, Tot. Refills 11, Maintenance, Drink 1 can BID. Diagnosis: Chronic Pancreatitis, Cirrhosis. ICD10 K86.1, K74.6, Fax to Anna( [facility], #[phone]), 05/24/19 15:01:00 EST, Compound Start Date: 05/24/19 [...] Maintenance,03/27/19 16:10:00 EST, Route to Pharmacy Electronically, [facility] #[id number], 166, cm, 03/27/19 15:26:00 EST, Height, 91.8, kg, 02/23/19 17:03:... Start Date: 03/27/19 Stop Date: 10/23/19 Status: Ordered Humalog Kwik Pen 100 units/mL subcutaneous injection See Instructions, 4 Units for bood sugar above 120 mg/dl and then add 2 Units for every 50 mg/dl rise above 120. Three times a day before meals., # 15 mL, 6 Refills, Maintenance, 05/04/19 12:52:00 EST, [facility] [place], [place] - , Humalog ins... Start Date: 05/04/19 Status: Ordered Lantus Solostar Pen 100 units/mL subcutaneous solution = 32 units, Subcutaneous Injection, Daily, Inject QAM., # 15 mL, 6 Refills, Maintenance, 03/30/19 16:23:00 EST, [facility] #[id number], 166, cm, 03/27/19 15:26:00 EST, Height, 91.8, kg, 02/23/1917:03:00 EST, Dry Weight Start Date: 03/30/19 Stop Date: 10/26/19 Status: Ordered MiraLax oral powder for reconstitution = 17 Gm, By Mouth, 2 times a day, PRN Other, dissolve in water before taking. goal 2-3 bowel movements daily, # 527 Gm, 0 Refills, Maintenance, 03/27/19 17:13:00 EST, REC Powder, [facility]#[id number], 17 Gm By Mouth 2 times a [...] TABLET BY MOUTH DAILY FOR STOMACH ACID, [facility] #[id number] Start Date: 11/28/18 Status: Ordered Pen [place], 31 G x 8 mm BD Ultra [...] Attn Dr. Mariano Andrade, Outpatient Psychiatry, at [phone]., See Instructions, # 1 application, Refills 0, [...] 04/20/19 10:38:00 EST, Route to Pharmacy Electronically, [facility] #[id number], 166, cm, 04/20/19 10:17:00 EST, Height, 91.8, kg, 02/23/19 17:03:00 EST, . Start Date: 04/20/19 Status: Ordered torsemide 20 mg oral tablet 2 tablet = 40 mg, By Mouth, Daily, # 180 tablet, 11 Refills, Maintenance, 04/20/19 10:38:00 EST, Tablet, [facility] #[id number], Replaces lower dose, 166, cm, 04/20/19 10:17:00 [...] Active H/O tubal ligation(Confirmed) Active BHN[facility] Steel Worker[facility] [phone](Confirmed) Active History of cholecystectomy(Confirmed) Active Hypertension(Confirmed) Active [...]
--- OUTSIDE RECORDS SUMMARY | 2023-02-09 22:42 | XMS_ITS | Continuity of Care Document ---
Author Name Unknown Organization [facility] Address [address] [place] [address]- Care Team Providers Care House Carpenter Name Role Phone Jaki Bishop MD Primary Care Physician [facility]counter [facility] Date(s): 04/16/22 - 05/16/[address] [address]- Allergies, Adverse Reactions, Alerts Substance Reaction Severity [...] to COVID vaccine 2Admin Note: VIS GIVEN [id number] 3Admin Note: VIS GIVEN 2008- 4Admin Note: [...] 04/29/22 14:29:00 EST, Route to Pharmacy Electronically, [facility] [id number], Partial fill upon patient request if the prescr... Start Date: 04/29/22 Stop Date: 08/27/22 Status: Ordered cloNIDine 0.1 mg oral tablet 0.1 mg, 1, tablet, By Mouth, Daily, # 30 tablet, Refills 3, Tot. Refills 3, Maintenance, 04/29/22 14:29:00 EST, Route to Pharmacy Electronically, [facility] [id number], Partial fill upon patient request if the prescription is... Start Date: 04/29/22 Stop Date: 08/27/22 Status: Ordered Coreg 6.25 mg oral tablet 6.25 mg, 1, tablet, By Mouth, 2 times a day, # 60 tablet, Refills 3, Tot. Refills 3, Maintenance, 04/29/22 14:29:00 EST, Route to Pharmacy Electronically, [facility] [id number], Partial fill upon patient request if the prescri... Start Date: 04/29/22 Stop Date: 08/27/22 Status: Ordered Creon 12,000 units oral delayed release capsule 1 capsule, By Mouth, 3 times a day, # 90 capsule, 3 Refills, Maintenance, 04/29/22 14:37:00 EST, ECCapsule, [facility] [id number], Partial fill upon patient request if the prescription is for a schedule II opioid drug., 167,... Start Date: 04/29/22 Status: Ordered diphenhydrAMINE 25 mg oral tablet 1 tablet = 25 mg, By Mouth, 3 times a day, for 30 days, PRN Agitation, # 90 tablet, 1 Refills, Acute 06/28/22 15:55:00 EDT, 04/29/22 15:55:00 EST, Tablet, [facility] [id number], Partial fill upon patient request if the prescri... Start Date: 04/29/22 Stop Date: 06/28/22 Status: Ordered divalproex sodium 500 mg oral enteric coated tablet 1 tablet = 500 mg, By Mouth, 2 times a day, # 60 tablet, 3 Refills, Maintenance, 04/29/22 14:33:00 EST, Tablet, [facility] [id number], Partial fill upon patient request if the prescription is for a schedule II opioid drug., 16... Start Date: 04/29/22 Stop Date: 08/27/22 Status: Ordered folic acid 1 mg oral tablet 1 mg, 1, tablet, By Mouth, Daily, # 30 tablet, Refills 1, Tot. Refills 1, Maintenance, 04/29/22 14:34:00 EST, Route to Pharmacy Electronically, [facility] [id number], Partialfill upon patient request if the prescription [...] 0 Refills, Maintenance, 04/08/22 16:16:00 EST, Liquid, [facility] [place], [place] - [id number], Partial fill upon patient request if the [...] 2 Refills, Maintenance, 04/29/22 14:34:00 EST, Solution, [facility] [id number], Partial fill upon patient request if the prescription is for a schedule II opioid drug.,... Start Date: 04/29/22 Status: Ordered multivitamin Multiple Vitamins oral tablet 1 tablet, By Mouth, Daily, # 90 tablet, 1 Refills, Maintenance, 04/02/22 16:44:00 EST, Tablet, [facility] [id number], Partial fill upon patient request if the [...] 04/29/22 14:39:00 EST, Route to Pharmacy Electronically, [facility] [id number], Partial fill upon patient request if the prescription... Start Date: 04/29/22 Stop Date: 08/27/22 Status: Ordered risperiDONE 3 mg oral tablet 3 mg, 1, tablet, By Mouth, Daily at bedtime, # 30 tablet, Refills 3, Tot. Refills 3, Maintenance, 04/29/22 14:39:00 EST, Route to Pharmacy Electronically, [facility] [id number], Partial fill upon patient request if the prescri... Start Date: 04/29/22 Status: Ordered thiamine 100 mg oral tablet 100 mg, 1, tablet, By Mouth, Daily, for 30 days, # 30 tablet, Refills 3, Tot. Refills 3, Acute 08/27/22 14:40:00 EDT, 04/29/22 14:40:00 EST, Route to Pharmacy Electronically, [place], [place] - [id number], Partial fill upon patient re... Start Date: 04/29/22 Stop Date: 08/27/22 Status: Ordered tiotropium 2.5 mcg/inh inhalation aerosol 2 puffs, Inhalation, Daily, # 1 each, 0 Refills, Maintenance, 03/25/22 12:09:00 EST, Inhaler, [facility], Partial fill upon patient request if [...] Care Team Personnel Name: Lawrence Hendrix Position: [facility] RN Supv Member Role: Primary Care Nurse Name: Rufino Lloyd RN Position: [facility] RN Member Role: Primary Care Nurse Name: Cristina Carpenter RN Position: [facility] RN Member Role: Primary Care Nurse Name: Rosette Noriega RN Position: [facility] SN RN Member Role: Primary Care Nurse Name: Mary Hidalgo RN Position: [facility] PCO RN Member Role: Primary Care Nurse Name: Sissy Duran RN Position: [facility] AMB Nurse Member Role: Primary Care Nurse Name: Rohit Zavaleta RN Position: [facility] RN Member Role: Primary Care Nurse Name: Erlinda Hartman NP Position: [facility] Associate Professional Member Role: Primary Care Nurse Address: Address: [address] [place] [address] Name: Jong Suazo RN Position: [facility] RN Supv Member Role: Primary Care Nurse Name: Shante Solis RN Position: [facility] RN Member Role: Primary Care Nurse Name: Joshua Prakash RN Position: [facility] RN Member Role: Primary Care Nurse Name: Bettie Vanegas RN Position: [facility] RN Member Role: Primary Care Nurse Name: Jay Marroquin RN Position: [facility] RN Member Role: Primary Care Nurse Name: Adrianna Church RN Position: [facility] RN Member Role: Primary Care Nurse Name: Sue Purdy RN Position: [facility] RN Member Role: Primary Care Nurse Name: Hector Perez RN Position: [facility] RN Member Role: Primary Care Nurse Name: Aleena Vizcaino RN Position: [facility] RN Member Role: Primary Care Nurse Name: Kacey Wilhelm RN Position: [facility] RN Member Role: Primary Care Nurse Name: Monalisa Barker LPN Position: [facility] AMB Nurse Member Role: Primary Care Nurse Name: Leslie Malloy RN Position: [facility] RN Member Role: Primary Care Nurse Name: Yesenia Hu LPN Position: [facility] RN Member Role: Primary Care Nurse Name: Joaquina Herrera RN Position: [facility] RN Member Role: Primary Care Nurse Name: Diego Bell RN Position: [facility] RN Member Role: Primary Care Nurse Name: Ese Grey Position: [facility] RN Member Role: Primary Care Nurse Name: Chela Najera RN Position: [facility] RN Member Role: Primary Care Nurse Name: Tootie Gonzalez RN Position: [facility] RN Member Role: Primary Care Nurse Name: Nancy Monte RN Position: [facility] RN Member Role: Primary Care Nurse Name: Marilee Starkey Position: [facility] RN Member Role: Primary Care Nurse Name: Silvina Dodd RN Position: [facility] RN Member Role: Primary Care Nurse Name: Flaco Clifford DO Position: [facility] Renal MD Member Role: Lifetime Consulting Physician Address: Address: [address] [place] [address] [facility] [place], [place] [address] Name: Marilee Richardson RN Position: [facility] RN Member Role: Primary Care Nurse Name: Rufino Johnson RN Position: [facility] RN Member Role: Primary Care Nurse Name: Jovita Camargo RN Position: [facility] RN Member Role: Primary Care Nurse Name: Ju Zhu Position: [facility] RN Member Role: Primary Care Nurse Name: Ester Palomares Position: [facility] RN Member Role: Primary Care Nurse Name: Emma Colbert RN Position: [facility] RN Supv Member Role: Primary Care Nurse Name: Hallie Gambino RN Position: [facility] Onco RN Member Role: Primary Care Nurse Name: Maya Ambriz RN Position: [facility] RN Member Role: Primary Care Nurse Name: Bhavna Rendon LPN Position: [facility] RN Member Role: Primary Care Nurse Name: Luis Burton RN Position: [facility] RN Member Role: Primary Care Nurse Name: Jaki Bishop MD Position: [facility] Primary Care Physician Member Role: PCP Address: Address: [address] [place] [id number]- Name: Lucian Krause RN Position: [facility] RN Member Role: Primary Care Nurse Name: Leslie Ward RN Position: [facility] RN Member Role: Primary Care Nurse Name: Jacki Gomes RN Position: [facility] RN Member Role: Primary Care Nurse Name: Ximena Saab RN Position: [facility] RN Member Role: Primary Care Nurse Name: Ivette Shankar RN Position: [facility] RN Supv Member Role: Primary Care Nurse Name: Laura Mary RN Position: [facility] SN RN Member Role: Primary Care Nurse Name: Octavio Box RN Position: [facility] RN Member Role: Primary Care Nurse Name: Nazia Tapia RN Position: [facility] RN Member Role: Primary Care Nurse Name: Caren Hernandez RN Position: [facility] RN Supv Member Role: Primary Care Nurse Name: Veronica Queen RN Position: [facility] RN Member Role: Primary Care Nurse Name: Perri Bryant RN Position: [facility] RN Member Role: Primary Care Nurse Name: Alba Toro RN Position: [facility] RN Member Role: Primary Care Nurse Name: Nely Wong RN Position: [facility] RN Member Role: Primary Care Nurse Name: Erica Brandon RN Position: [facility] RN Member Role: Primary Care Nurse Name: Adrianna Gonzalez RN Position: [facility] RN Member Role: Primary Care Nurse Name: Annmarie Feldman RN Position: [facility] PCO w/OE and EZ Script Member Role: Primary Care Nurse Name: Chinyere Espinoza RN Position: [facility] RN Member Role: Primary Care Nurse Name: Teresita Diallo RN Position: [facility] RN Member Role: Primary Care Nurse Name: Tennille Mcgarry RN Position: [facility] Hospital [employer] Hcm Developer Member Role: Primary Care Nurse Name: Vicky Salazar RN Position: [facility] RN Member Role: Primary Care Nurse Name: Spencer Jameson RN Position: [facility] RN Member Role: Primary Care Nurse Name: Jalen Mullins Position: [facility] RN Member Role: Primary Care Nurse Care Team Related Persons Name: ARIANNA MARYANNE Address: [address] [place] [address] Name: MARYANNE KELLER Address: home [address] [address] Name: MARYANNE KELLER JR Address: home [address] [place] [address] Name: GEORGIA KELLER Address: [place] [address] Name: BALDEV POLANCO Address: [place] [address]
--- OUTSIDE RECORDS SUMMARY | 2023-02-09 22:42 | XMS_ITS | Continuity of Care Document ---
Author Name Unknown Organization [facility] Address [address] [place] [address]- Care Team Providers Care Robotic Weld Technician Name Role Phone Jaki Bishop MD Primary Care Physician Encounter [facility] [id number] Date(s): 07/18/20 - 08/20/[address] [address]- Attending Physician: Harmony Ryan MD Admitting Physician: Harmony Ryan MD Allergies, Adverse Reactions, Alerts Substance Reaction [...] Given Permanently Refused 1Admin Note: VIS GIVEN [id number] 2Admin Note: VIS GIVEN 2008-12 3Admin Note: vis 4Admin Note: vis 02/06/08 Medications acetaminophen 325 mg oral tablet 1, tablet, By Mouth, 4 times a day, PRN, not to exceed 4 TABLETS PER DAY. Not to exceed 2000 mg/day. PRN Pain, # 60 tablet, Refills 5, Tot. Refills 5, Maintenance, NEEDED, 08/14/20 16:55:00 EDT, Route to Pharmacy Electronically, [facility] -... Start Date: 08/14/20 Status: Ordered Alcohol [...] Maintenance, 04/16/20 11:06:00 EST, Tablet, [facility] [id number], Partial fill upon patient request if the prescription is for a schedule II opioid drug., 168,... Start Date: 04/16/20 Status: Ordered clozapine 50 mg oral tablet 3 tablet = 150 mg, By Mouth, Daily at bedtime, # 90 tablet, 0 Refills, Maintenance, 04/16/20 11:06:00 EST, Tablet, [place], [place] - [id number], Partial fill upon patient request ifthe prescription is for a schedule II opioid drug.,... Start Date: 04/16/20 Status: Ordered Comfort EZ Pen [facility] 31 gauge x 5/16 Comfort EZ Pen [facility] 31 gauge x 16 , See Instructions, [...] EST, Route to Pharmacy Electronically, [facility] [id number], Partial fill upon patient request if the prescr... Start Date: 05/26/20 Stop Date: 11/22/20 Status: Ordered docusate sodium 100 mg oral capsule = 100 mg, By Mouth, 2 times a day, PRN Constipation., # 60 capsule, 5 Refills, Maintenance, 07/21/20 10:54:00 EDT, Capsule, [facility] [id number], Partial fill upon patient request if the [...] Maintenance,05/28/20 13:46:00 EST, Route to Pharmacy Electronically, [facility] [id number], Partial fill upon patient request if the [...] K86.1, K74.6, E11.65. Fax to Anna ( [facility], #[phone]), 06/06/20 19... Start Date: 06/06/20 Status: Ordered [...] mL, 1 Refills, Maintenance, 04/16/20 11:07:00 EST, [place], [place] - [id number],... Start Date: 04/16/20 Status: Ordered lactulose 10 gm/15 ml oral syrup 30 mL, By Mouth, 2 times a day, # 581 mL, 3 Refills, Maintenance, 06/27/20 11:11:00 EDT, [place], [place] - [id number], 10, 30 mL By Mouth 2 times [...] 1 Refills, Maintenance, 08/20/20 16:55:00 EDT, Solution, [facility] [id number], 168, cm, 04/16/20 8:30:00 EST, Height, 98.7, kg, 03/22... Start Date: 08/20/20 Status: Ordered loratadine 10 mg oral tablet See Instructions, TAKE ONE TABLET BY MOUTH DAILY, # 30 tablet, Refills 5, Tot. Refills 5, 05/01/20 8:18:00 EST, Instructions Replace Required Details, Route to Pharmacy Electronically, [facility] [id number], 168, cm, 04/16/20... Start Date: 05/01/20 Status: Ordered multivitamin Multiple Vitamins oral tablet 1 tablet, By Mouth, Daily, # 90 tablet, 1 Refills, Maintenance, 05/26/20 13:28:00 EST, Tablet, [facility], [place] - [id number], 1 tablet By Mouth Daily, 168, cm, [...] 0 Refills, Maintenance, 04/16/20 11:08:00 EST, Gum, [place], [place] - [id number], Partial fill upon patient request if the [...] 5 Refills, Maintenance, 07/14/20 16:30:00 EDT, Tablet, [place], [place] - [id number], this is an increased, 1 tablet By Mouth 2 times a day,x30 days, 168, cm, 04/16/20 8:30:00 EST, Heigh... Start Date: 07/14/20 Stop Date: 01/10/21 Status: Ordered torsemide 20 mg oral tablet 1 tablet = 20 mg, By Mouth, Daily, # 30 tablet, 1 Refills, Maintenance, 04/16/20 11:09:00 EST, Tablet, [place], [place] - [id number], Partial fill upon patient request if the prescription is for a schedule II opioid drug., 168, cm, ... Start Date: 04/16/20 Stop Date: 04/11/21 Status: Ordered Zenpep 10,000 units-32,000 units-42,000 units oral delayed release capsule 1 capsule, By Mouth, 3 times a day, # 90 capsule, 0 Refills, Maintenance, 04/16/20 11:09:00 EST, [place], [place] - [id number], 1 capsule By Mouth 3 times a [...] Active H/O tubal ligation(Confirmed) Active BHN/BH CP Counter Top Maker/Janet Pandey [phone](Confirmed) Active History of cholecystectomy(Confirmed) Active Hypertension(Confirmed) Active [...]
--- OUTSIDE RECORDS SUMMARY | 2023-02-09 22:42 | XMS_ITS | Continuity of Care Document ---
Author Name Unknown Organization [facility] ter Address [address] [place] [address]- Care Team Providers Care Pin Drafting Machine Operator Name Role Phone Jaki Bishop MD Primary Care Physician [phone] Encounter [facility] Date(s): 12/25/21 - 12/25/[address] [address]- Discharge Disposition: A-D/C Walkout Attending Physician: Not on Staff, Attending MD Admitting Physician: Not on Staff, Admitting MD Referring Physician: Not on Staff, Referring [...] to COVID vaccine 2Admin Note: VIS GIVEN [id number] 3Admin Note: VIS GIVEN 2008- 4Admin Note: vis 5Admin Note: vis 02/06/08 Medications Abilify 10 mg oral tablet 10 mg, 1, tablet, By Mouth, Daily, # 90 tablet, Refills 3, Tot. Refills 3, Maintenance, 07/07/21 8:56:00 EDT, Route to Pharmacy Electronically, [place], [place] - [id number], Partialfill upon patient request if the prescription [...] 07/07/21 8:56:00 EDT, Route to Pharmacy Electronically, [facility] [id number], Partial fill upon patient request if the prescri... Start Date: 07/07/21 Status: Ordered Comfort EZ Pen Citra 31 gauge x /16 USE TO inject insulin 4 (FOUR) TIMES DAILY Start Date: 07/03/21 Status: Ordered Coreg 6.25 mg oral tablet 6.25 mg, 1, tablet, By Mouth, 2 times a day, # 180 tablet, Refills 3, Tot. Refills 3, Maintenance, 07/07/21 8:56:00 EDT, Route to Pharmacy Electronically, [facility] [id number], Partial fill upon patient request if the prescri... Start Date: 07/07/21 Status: Ordered Daily Multiple Vitamins oral tablet 1 tablet, By Mouth, Daily, # 90 tablet, 3 Refills, Maintenance, 07/07/21 8:56:00 EDT, Tablet, [facility] [id number], Partial fill upon patient request if the prescription is for a schedule II opioid drug., 1 tablet By Mouth Da... Start Date: 07/07/21 Status: Ordered divalproex sodium 250 mg oral enteric coated tablet 1 tablet = 250 mg, By Mouth, Daily in AM, # 90 tablet, 3 Refills, Maintenance, 07/07/21 8:56:00 EDT, Tablet, [place], [place] - [id number], Partial fill upon patient request if the prescription is for a schedule II opioid drug., 167,... Start Date: 07/07/21 Status: Ordered divalproex sodium 500 mg oral enteric coated tablet 1 tablet = 500 mg, By Mouth, Daily at bedtime, # 90 tablet, 3 Refills, Maintenance, 07/07/21 8:56:00 EDT, Tablet, [facility] [id number], Partial fill upon patient request if the prescription is for a schedule II opioid drug.,... Start Date: 07/07/21 Status: Ordered Eucerin Unscented topical lotion See Instructions, Apply daily as directed to dry skin. 16 oz, # 1 each, 3 Refills, Maintenance, 07/07/21 9:02:00 EDT, [place], [place] - [id number], Partial fill upon patient requestif the prescription is for a schedule II opioid drLitzy.. Start Date: 07/07/21 Status: Ordered folic acid 1 mg oral tablet 1 mg, 1, tablet, By Mouth, Daily, # 30 tablet, Refills 1, Tot. Refills 1, Maintenance, 10/21/21 12:44:00 EDT, Route to Pharmacy Electronically, [facility] [id number], Partialfill upon patient request if the prescription [...] 07/07/21 8:56:00 EDT, Route to Pharmacy Electronically, [facility] [id number], Partial fill upon patient request if the p... Start Date: 07/07/21 Status: Ordered gabapentin 100 mg oral capsule 200 mg, 2, capsule, By Mouth, Daily at bedtime, # 180 capsule, Refills 3, Tot. Refills 3, Maintenance, 07/07/21 8:56:00 EDT, Route to Pharmacy Electronically, [facility] [id number], Partial fill upon patient request if the pre... Start Date: 07/07/21 Status: Ordered guaiFENesin 100 mg/5 mL oral liquid 5 mL = 100 mg, By Mouth, Every 4 hours, PRN for cough, # 300 mL, 0 Refills, Acute 07/07/22 9:05:00 EDT, 07/07/21 9:02:00 EDT, Liquid, [facility], [place] - [id number], Partial fill uponpatient request if the prescription [...] a day, # 581 mL, 3 Refills, [facility], , TAKE 30mls BY MOUTH 2 (two) times a day, 167, cm, 07/07/21 8:39:00 EDT, Height, 95.6, kg, 06/29/21 18:39:00 EDT, Dry Weight Start Date: 08/10/21 Status: Ordered Lantus Solostar Pen 100 units/mL subcutaneous solution = 16 units, Subcutaneous Infusion, Daily, # 15 mL, 5 Refills, Maintenance, 09/11/21 17:25:00 EDT, [facility] [id number], Partial fill upon patient request if the prescriptionis for a schedule II opioid drug., 167, cm, 2... Start Date: 09/11/21 Status: Ordered loratadine 10 mg oral tablet 10 mg, 1, tablet, By Mouth, Daily, # 90 tablet, Refills 3, Tot. Refills 3, Maintenance, 07/07/21 8:56:00 EDT, Route to Pharmacy Electronically, [facility] [id number], Partialfill upon patient request if the prescription is fo... Start Date: 07/07/21 Status: Ordered magnesium oxide 400 mg oral tablet 1 tablet = 400 mg, By Mouth, 2 times a day, # 180 tablet, 3 Refills, Maintenance, 07/07/21 8:56:00 EDT, Tablet, [facility] [id number], Partial fill upon patient request if the prescription is for a schedule II opioid drug., 16... Start Date: 07/07/21 Status: Ordered melatonin 3 mg oral tablet 1 tablet = 3 mg, By Mouth, Daily at bedtime, PRN Insomnia, # 90 tablet, 3 Refills, Maintenance, 07/07/21 8:56:00 EDT, Tablet, [facility] [id number], Partial fill upon patientrequest if the prescription is for a schedule II op... Start Date: 07/07/21 Status: Ordered Narcan 4 mg/0.1 mL nasal spray = 4 mg, Naris, Left, Once, may repeat every 2 to 3 minutes until patient responds. PRN opioid overdose, # 2 each, 0 Refills, Soft Stop, 11/27/21 19:25:00 EDT, [facility] [id number], Partial fill upon patient request if the pre... Start Date: 11/27/21 Status: Ordered nicotine 2 mg oral transmucosal lozenge 1 lozenge = 2 mg, By Mouth, Every hour, PRN Other, Nicotine Withdrawal Symptoms (not to exceed 20 lozenges per day), # 72 lozenge, 3 Refills, Maintenance, 07/07/21 8:56:00 EDT, Lozenge, [facility] [id number], Partial fill upon... Start Date: 07/07/21 Status: Ordered pancrelipase 10,000 units-32,000 units-42,000 units oral delayed release capsule 1 capsule, By Mouth, 3 times a day, with each meal and snack, # 270 capsule, 3 Refills, Maintenance, 10/21/21 17:17:00 EDT, CR Capsule, [facility] [id number], Partial fill upon patient request if the prescription is for a sche... Start Date: 10/21/21 Status: Ordered pantoprazole 40 mg oral delayed release tablet 1 tablet = 40 mg, By Mouth, Daily, # 90 tablet, 3 Refills, Maintenance, 10/19/21 14:26:00 EDT, EC Tablet, 167, cm, 07/07/21 8:39:00 EDT, Height, 95.6, kg, 06/29/21 18:39:00 EDT, Dry Weight Start Date: 10/19/21 Status: Ordered Pen Citra, 31 G x 8 mm BD Ultra [...] 10/21/21 12:48:00 EDT, Route to Pharmacy Electronically, [facility] [id number],Partial fill upon patient request if the prescripti... [...] 3 Refills, Maintenance, 07/07/21 8:56:00 EDT, Tablet, [place], [place] - [id number], Partial fill upon patient request if theprescription is for a schedule II opioid drug., 167... 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/ CP Structural Steel Detailer/Niya Pandey [phone] Confirmed Active Heart failure Confirmed Active History of cholecystectomy Confirmed Active Hyperglycemia due to diabetes mellitus Confirmed Active Hypertension Confirmed Active Hypoxia Confirmed Active Incisional hernia Confirmed Active 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-associate d pneumonia) Confirmed Active Leukocytosis Confirmed Active Nicotine dependence Confirmed Active Obese class II Confirmed Active Obesity (BMI 30.0-34.9) Confirmed Active Pulmonary HTN, Severe Confirmed Active Steatohepatitis (w/Stage III Fibrosis, Liver [...] Personnel Name: Jaki Bishop MD Address: Address: [address] [place] [address]
--- OUTSIDE RECORDS SUMMARY | 2023-02-09 22:42 | XMS_ITS | Continuity of Care Document ---
Author Name Unknown Organization [facility] Address [address] [place] [address]- Care Team Providers Care Inside Sales Associate Name Role Phone Dario HAYDEN, Jaki Primary Care Physician [phone] Encounter [facility] Date(s): 03/25/20 - 04/24/[address] [address]- Allergies, Adverse Reactions, Alerts Substance Reaction Severity [...] Given Permanently Refused 1Admin Note: VIS GIVEN [id number] 2Admin Note: VIS GIVEN 2009-10 3Admin Note: vis 4Admin Note: vis 02/06/08 Medications acetaminophen 325 mg oral tablet 1, tablet, By Mouth, 4 times a day, PRN, no MORE THAN 4 TABLETS PER DAY., # 60 tablet, Refills 1, Tot. Refills 1, Maintenance, NEEDED, 03/06/20 9:09:00 EST, Route to Pharmacy Electronically, [facility] [id number], 168, cm,... Start Date: 03/06/20 Status: Ordered [...] Maintenance, 04/16/20 11:06:00 EST, Tablet, [facility] [id number], Partial fill upon patient request if the prescription is for a schedule II opioid drug., 168,... Start Date: 04/16/20 Status: Ordered clozapine 50 mg oral tablet 3 tablet = 150 mg, By Mouth, Daily at bedtime, # 90 tablet, 0 Refills, Maintenance, 04/16/20 11:06:00 EST, Tablet, [facility] [id number], Partial fill upon patient request ifthe prescription is for a schedule II opioid drug.,... Start Date: 04/16/20 Status: Ordered Coreg 6.25 mg oral tablet 6.25 mg, 1, tablet, By Mouth, 2 times a day, # 60 tablet, Refills 0, Tot. Refills 0, Maintenance, 04/16/20 11:05:00 EST, Route to Pharmacy Electronically, [facility] [id number], Partial fill upon patient request, 168, cm, 03/22... Start Date: 04/16/20 Status: Ordered docusate sodium 100 mg oral capsule = 100 mg, By Mouth, 2 times a day, PRN Constipation., # 60 capsule, 3 Refills, Maintenance, 02/29/20 15:13:00 EST, Capsule, [facility] [id number], Partial fill upon patient request if the prescription is for a schedule II opio... Start Date: 02/29/20 Stop Date: 06/28/20 Status: Ordered gabapentin 100 mg oral capsule 200 mg, 2, capsule, By Mouth, 2 times a day, # 120 capsule, Refills 0, Tot. Refills 0, Maintenance,04/16/20 11:06:00 EST, Route to Pharmacy Electronically, [facility] [id number], Partial fill upon patient request if the [...] Refills, Maintenance, 04/16/20 11:07:00 EST, [facility] [id number],... Start Date: 04/16/20 Status: Ordered lactulose 10 gm/15 ml oral syrup 30 mL, By Mouth, 2 times a day, # 581 mL, 0 Refills, Acute, 03/25/20 11:49:00 EST, [facility],10, TAKE 30 ML BY MOUTH 2 [...] 1 Refills, Maintenance, 04/16/20 11:07:00 EST, Solution, [facility], [place] - [id number], 168, cm, 04/16/20 8:30:00 EST, Height, 98.7, kg, 04/11/20 2:10:00 EST, Dry Weight Start Date: 04/16/20 Status: Ordered loratadine 10 mg oral tablet See Instructions, TAKE ONE TABLET BY MOUTH DAILY, # 30 tablet, Refills 2, Tot. Refills 2, 02/01/20 16:32:00 EST, Instructions Replace Required Details, Route to Pharmacy Electronically, [facility], [facility] [id number], 168, cm, 12/17/19... Start Date: 02/01/20 Status: [...] 1 Refills, Maintenance, 08/07/19 14:23:00 EDT, Tablet, [place], [place] -, 1 tablet By Mouth Daily, [...] 0 Refills, Maintenance, 04/16/20 11:08:00 EST, Gum, [place], [place] - [id number], Partial fill upon patient request if the [...] Maintenance, 03/05/20 16:50:00 EST, Tablet, [facility] [id number], this is an increased, 1 tablet By Mouth 2 times a day,x30 days, 168, cm, 02/10/20 5:58:00 EST, [facility]... Start Date: 03/05/20 Stop Date: 09/01/20 Status: Ordered Senna 8.6 mg oral tablet 8.6 mg, 1, tablet, By Mouth, Daily, Refills 0, Maintenance, 12/17/19 11:57:00 EDT, Tablet Start Date: 12/17/19 Status: Ordered torsemide 20 mg oral tablet 1 tablet = 20 mg, By Mouth, Daily, # 30 tablet, 1 Refills, Maintenance, 04/16/20 11:09:00 EST, Tablet, [facility] [id number], Partial fill upon patient request if the prescription is for a schedule II opioid drug., 168, cm, ... Start Date: 04/16/20 Stop Date: 04/11/21 Status: Ordered Zenpep 10,000 units-32,000 units-42,000 units oral delayed release capsule 1 capsule, By Mouth, 3 times a day, # 90 capsule, 0 Refills, Maintenance, 04/16/20 11:09:00 EST, [facility] [id number], 1 capsule By Mouth 3 times a [...] Active H/O tubal ligation(Confirmed) Active BHN/BH CP Cutting Machine Offbearer/Janet Pandey [phone](Confirmed) Active History of cholecystectomy(Confirmed) Active Hypertension(Confirmed) Active [...]
--- OUTSIDE RECORDS SUMMARY | 2023-02-09 22:42 | XMS_ITS | Continuity of Care Document ---
Author Name Unknown Organization [facility] Address [address] [place] [address]- Care Team Providers Care Cost Accounting Clerk Name Role Phone Jaki Bishop MD Primary Care Physician Encounter [facility] Date(s): 06/14/19 - 07/15/[address] [address]- [facility] Attending Physician: Jaki Bishop MD Allergies, Adverse [...] Given Patient Refuses 1Admin Note: VIS GIVEN [phone] 2Admin Note: VIS GIVEN 2009-10 3Admin Note: vis 4Admin Note: vis 02/06/08 Medications acetaminophen 325 mg oral tablet 325 mg, 1, tablet, By Mouth, 4 times a day, PRN, No more than 4 tablets per day, # 60 tablet, Refills 11, Tot. Refills 11, Acute 10/05/19 12:00:00 EDT, for pain, 10/03/18 14:57:21 EDT, Route to Pharmacy Electronically, [id number]... Start Date: 10/03/18 Stop Date: 10/05/19 Status: [...] 05/02/19 13:58:00 EST, Route to Pharmacy Electronically, [facility] [place], [place] -, 166, cm, 04/30/19 10:41:00 EST, Height, 91.8, kg, 02/23/19 17... Start Date: 05/02/19 Status: Ordered docusate sodium 100 mg oral capsule 100 mg, 1, capsule, By Mouth, 2 times a day, # 60 capsule, Refills 11, Tot. Refills 11, Maintenance, 02/21/19 14:45:44 EST, Route to Pharmacy Electronically, [id number], [facility] [place], [place] -, 168, cm, 02/14/19... Start Date: 02/21/19 Stop Date: 02/16/20 Status: Ordered Ensure (Vanilla Flavor) Ensure (Vanilla Flavor), See Instructions, # 60 each, Refills 11, Tot. Refills 11, Maintenance, Drink 1 can BID. Diagnosis: Chronic Pancreatitis, Cirrhosis. ICD10 K86.1, K74.6, Fax to Anan( [facility], #[phone]), 05/24/19 15:01:00 EST, Compound Start Date: 05/24/19 [...] Maintenance,03/27/19 16:10:00 EST, [facility], [id number], 166, cm, 03/27/19 15:26:00 EST, Height, 91.8, kg, 02/23/19 17:03:... Start Date: 03/27/19 Stop Date: 10/23/19 Status: Ordered Humalog Kwik Pen 100 units/mL subcutaneous injection See Instructions, 4 Units for bood sugar above 120 mg/dl and then add 2 Units for every 50 mg/dl rise above 120. Three times a day before meals., # 15 mL, 6 Refills, Maintenance, 05/04/19 12:52:00 EST, [place], [place] - , Humalog ins... Start Date: 05/04/19 Status: Ordered Lantus Solostar Pen 100 units/mL subcutaneous solution See Instructions, This is an increase in dose. 28u QAM & 44 units QHS. Subcutaneous Injection Daily 30 days, # 5 each, 6 Refills, Maintenance, 07/12/19 9:59:00 EDT, [place], [place] -, 166, cm, 05/28/19 11:08:00 EDT, Height, 91.8, kg,... Start Date: 07/12/19 Status: Ordered MiraLax oral powder for reconstitution = 17 Gm, By Mouth, 2 times a day, PRN Other, dissolve in water before taking. goal 2-3 bowel movements daily, # 527 Gm, 0 Refills, Maintenance, 03/27/19 17:13:00 EST, REC Powder, [facility]#[id number], 17 Gm By Mouth 2 times a [...] TABLET BY MOUTH DAILY FOR STOMACH ACID, [facility] #[id number] Start Date: 11/28/18 Status: Ordered Pen [place], 31 G x 8 mm BD Ultra [...] and fax results to: Attn Dr. Mariano Andarde, Outpatient Psychi Please draw CBC with dif (for ANC) weekly and fax results to: Attn Dr. Mariano Andrade, Outpatient Psychiatry, at [phone]., See Instructions, # 1 application, Refills 0, [...] 04/20/19 10:38:00 EST, Route to Pharmacy Electronically, [facility] #[id number], 166, cm, 04/20/19 10:17:00 EST, Height, 91.8, kg, 02/23/19 17:03:00 EST, . Start Date: 04/20/19 Status: Ordered torsemide 20 mg oral tablet 2 tablet = 40 mg, By Mouth, Daily, # 180 tablet, 11 Refills, Maintenance, 04/20/19 10:38:00 EST, Tablet, [facility] #[id number], Replaces lower dose, 166, cm, 04/20/19 10:17:00 [...] Active H/O tubal ligation(Confirmed) Active BHN/ CP Sales Superintendent/Janet Pandey [phone](Confirmed) Active History of cholecystectomy(Confirmed) Active Hypertension(Confirmed) Active [...]
--- OUTSIDE RECORDS SUMMARY | 2023-02-09 22:42 | XMS_ITS | Continuity of Care Document ---
Author Name Unknown Organization [facility] Address [address] [place] [address]- Care Team Providers Care Boring Machine Set Up Operator Name Role Phone Jaki Bishop MD Primary Care Physician Encounter [facility] Date(s): 06/17/20 - 07/17/[address] [address]- Allergies, Adverse Reactions, Alerts Substance Reaction Severity [...] Given Permanently Refused 1Admin Note: VIS GIVEN [id number] 2Admin Note: VIS GIVEN 2008-12 3Admin Note: vis 4Admin Note: vis 02/06/08 Medications acetaminophen 325 mg oral tablet 1, tablet, By Mouth, 4 times a day, PRN, not to exceed 4 TABLETS PER DAY. Not to exceed 2000 mg/day. PRN Pain, # 60 tablet, Refills 0, Tot. Refills 0, Maintenance, NEEDED, 06/19/20 12:38:00 EDT, Route to Pharmacy Electronically, [facility] -... Start Date: 06/19/20 Status: Ordered [...] 0 Refills, Maintenance, 04/16/20 11:06:00 EST, Tablet, [facility] [id number], Partial fill upon patient request if the prescription is for a schedule II opioid drug., 168,... Start Date: 04/16/20 Status: Ordered clozapine 50 mg oral tablet 3 tablet = 150 mg, By Mouth, Daily at bedtime, # 90 tablet, 0 Refills, Maintenance, 04/16/20 11:06:00 EST, Tablet, [facility] [id number], Partial fill upon patient request ifthe prescription is for a schedule II opioid drug.,... Start Date: 04/16/20 Status: Ordered Comfort EZ Pen [place] 31 gauge x 5/16 Comfort EZ Pen [place] 31 gauge x 5/16 , See Instructions, [...] 05/26/20 14:41:00 EST, Route to Pharmacy Electronically, [facility] [id number], Partial fill upon patient request if the prescr... Start Date: 05/26/20 Stop Date: 11/22/20 Status: Ordered docusate sodium 100 mg oral capsule = 100 mg, By Mouth, 2 times a day, PRN Constipation., # 60 capsule, 3 Refills, Maintenance, 02/29/20 15:13:00 EST, Capsule, [facility] [id number], Partial fill upon patient request if the [...] Maintenance,05/28/20 13:46:00 EST, Route to Pharmacy Electronically, [facility] [id number], Partial fill upon patient request if the presc... Start Date: 05/28/20 Status: Ordered Glucerna (Vanilla Flavor) Glucerna (Vanilla Flavor), See Instructions, # 60 each, Refills 11, Tot. Refills 11, Maintenance, Drink 1 can BID. 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 Fax to Anna ( [facility], #[phone]), 06/06/20 19... Start Date: 06/06/20 Status: Ordered [...] mL, 1 Refills, Maintenance, 04/16/20 11:07:00 EST, [place], [place] - [id number],... Start Date: 04/16/20 Status: Ordered lactulose 10 gm/15 ml oral syrup 30 mL, By Mouth, 2 times a day, # 581 mL, 3 Refills, Maintenance, 06/27/20 11:11:00 EDT, [place], [place] - [id number], 10, 30 mL By Mouth 2 times [...] Details, Route to Pharmacy Electronically, [facility] [place], [place] - [id number], 168, cm, 04/16/20... Start Date: 05/01/20 Status: Ordered multivitamin Multiple Vitamins oral tablet 1 tablet, By Mouth, Daily, # 90 tablet, 1 Refills, Maintenance, 05/26/20 13:28:00 EST, Tablet, [facility] [place], [place] - [id number], 1 tablet By Mouth Daily, 168, cm, [...] 0 Refills, Maintenance, 04/16/20 11:08:00 EST, Gum, [facility] [place], [place] - [id number], Partial fill upon patient request if the [...] 5 Refills, Maintenance, 07/14/20 16:30:00 EDT, Tablet, [place], [place] - [id number], this is an increased, 1 tablet By Mouth 2 times a day,x30 days, 168, cm, 04/16/20 8:30:00 EST, Heigh... Start Date: 07/14/20 Stop Date: 01/10/21 Status: Ordered torsemide 20 mg oral tablet 1 tablet = 20 mg, By Mouth, Daily, # 30 tablet, 1 Refills, Maintenance, 04/16/20 11:09:00 EST, Tablet, [place], [place] - [id number], Partial fill upon patient request if the prescription is for a schedule II opioid drug., 168, cm, 01... Start Date: 04/16/20 Stop Date: 04/11/21 Status: Ordered Zenpep 10,000 units-32,000 units-42,000 units oral delayed release capsule 1 capsule, By Mouth, 3 times a day, # 90 capsule, 0 Refills, Maintenance, 04/16/20 11:09:00 EST, [facility] [place], [place] - [id number], 1 capsule By Mouth 3 times a [...] Active H/O tubal ligation(Confirmed) Active BHN/ CP Metal Hanging Helper/Janet salvador [facility] [phone](Confirmed) Active History of cholecystectomy(Confirmed) Active Hypertension(Confirmed) Active [...]
--- OUTSIDE RECORDS SUMMARY | 2023-02-09 22:42 | XMS_ITS | Continuity of Care Document ---
Author Name Unknown Organization [facility] ter Address [address] [place] [id number] Care Team Providers Care Scientific Manager Name Role Phone Jaki Bishop MD Primary Care Physician Encounter [facility] Date(s): 07/20/22 - 07/26/[address] [address]- Encounter Diagnosis Pneumonia(Final) - 07/20/22 Discharge Disposition: A-Transfer VNA/Home Health Attending Physician: Aneesh Myers MD Admitting Physician: Roberto Arellano MD Referring Physician: Not on Staff, Referring [...] 08/25/10 Given Influenza Inactive (IM) (oldterm) 4 9/16/10 Given tetanus-diphtheria toxoids (Td) 5 10/11/08 Given Not Given Vaccine Date Status Refusal Reason influenza virus vaccine, inactivated 02/07/13 Not Given Parent Or Guardian Refuses influenza virus vaccine, inactivated 02/03/13 Not Given Patient Refuses pneumococcal 23-valent vaccine 10/11/19 Not Given Permanently Refused 1Result Comment: Patient verbally consented to COVID vaccine 2Admin Note: VIS GIVEN [id number] 3Admin Note: VIS GIVEN 2008-12 4Admin Note: vis 5Admin Note: vis 02/06/08 Medications Acetaminophen Tablet 650 mg, Tablet, By Mouth, Every 4 hours, PRN for Pain , Mild, Temperature Greater than 100.5, Routine, 07/20/22 16:45:00 EDT Start Date: 07/20/22 Stop Date: 07/26/22 Status: Discontinued albuterol 90 mcg/inh inhalation powder 2 puffs, Inhalation, Every 4 hours, PRN as needed, PRN Wheezing, # 1 each, 1 Refills, Maintenance, 06/28/22 14:49:00 EDT, Powder, [place] - [phone], Partial fill upon patient request if the [...] 07/16/22 16:04:00 EDT, Route to Pharmacy Electronically, [place] - [phone], Partialfill upon patient request if the prescription is fo... Start Date: 07/16/22 Status: Ordered amLODIPine 5 mg oral tablet 5 mg, Tablet, By Mouth, 07/26/22 9:00:00 EDT Start Date: 07/26/22 Stop Date: 07/26/22 Status: Completed benzonatate 100 mg oral capsule 1 capsule = 100 mg, By Mouth, 3 times a day, PRN Cough, for 7 days, # 21 tablet, 0 Refills, Acute 08/02/22 11:17:00 EDT, 07/26/22 11:17:00 EDT, Capsule, [facility] [phone], Partial fill upon patient request if the prescript... Start Date: 07/26/22 Stop Date: 08/02/22 Status: Ordered benztropine 1 mg oral tablet 0.5 mg, 0.5, tablet, By Mouth, 2 times a day, # 30 tablet, Refills 3, Tot. Refills 3, Maintenance, 04/29/22 14:29:00 EST, Route to Pharmacy Electronically, [facility] [id number], Partial fill upon patient request if the prescr... Start Date: 04/29/22 Stop Date: 08/27/22 Status: Ordered carvedilol 12.5 mg oral tablet TAKE 1 TABLET BY MOUTH EVERY TWELVE HOURS Start Date: 07/20/22 Status: Ordered carvedilol 12.5 mg oral tablet 12.5 mg, Tablet, By Mouth, 07/26/22 9:00:00 EDT Start Date: 07/26/22 Stop Date: 07/26/22 Status: Completed cloNIDine 0.1 mg oral tablet 0.1 mg, 1, tablet, By Mouth, Daily, # 30 tablet, Refills 3, Tot. Refills 3, Maintenance, 04/29/22 14:29:00 EST, Route to Pharmacy Electronically, [facility] [phone], Partial fill upon patient request if the prescription is... Start Date: 04/29/22 Stop Date: 08/27/22 Status: Ordered Creon 12,000 units oral delayed release capsule 1 capsule, By Mouth, 3 times a day, # 90 capsule, 3 Refills, Maintenance, 04/29/22 14:37:00 EST, ECCapsule, [facility] [phone], Partial fill upon patient request if the [...] 06/01/22 16:34:00 EDT, Route to Pharmacy Electronically, [facility], 167, cm, 03/25/22 3:14:00 EST, Height, 113, [...] mL, 1 Refills, Maintenance, 07/22/22 15:51:00 EDT, [facility], 15, TAKE 30 ML BY MOUTH two (2) times a day, 160, cm, 07/21/22 10:57:00 EDT, Height, 89.2, kg, 07/21/22 3:29:00 EDT, Dry Weight Start Date: 07/22/22 Status: Ordered Lantus Solostar Pen 100 units/mL subcutaneous solution = 6 units, Subcutaneous Injection, Daily in AM, # 10 mL, 2 Refills, Maintenance, 04/29/22 14:34:00 EST, Solution, [facility], [place] - [phone], Partial fill upon patient request if the prescription is for a schedule II opioid drug.,... Start Date: 04/29/22 Status: Ordered multivitamin Multiple Vitamins oral tablet 1 tablet, By Mouth, Daily, # 90 tablet, 1 Refills, Maintenance, 04/02/22 16:44:00 EST, Tablet, [facility], [place] - [phone], Partial fill upon patient request if the prescription isfor a schedule II opioid drug., 1 tablet By Mouth D... Start Date: 04/02/22 Status: Ordered pantoprazole 40 mg oral delayed release tablet 1 tablet, By Mouth, Daily, # 30 tablet, 2 Refills, Maintenance, 06/29/22 15:42:00 EDT, 167, cm, 06/28/22 13:25:00 EDT, Height, 113, kg, 03/21/22 0:03:00 EST, Dry Weight Start Date: 06/29/22 Status: Ordered predniSONE 20 mg oral tablet 2 tablet = 40 mg, By Mouth, Daily, for 2 days, Take 2 tablets daily on 07/27 and 07/28, # 4 tablet,0 Refills, Acute 07/28/22 11:17:00 EDT, 07/26/22 11:17:00 EDT, Tablet, [facility], [place] - [id number], Partial fill upon patient reques... Start Date: 07/26/22 Stop Date: 07/28/22 Status: Ordered risperiDONE 2 mg oral tablet 2 mg, 1, tablet, By Mouth, Daily in AM, # 30 tablet, Refills 3, Tot. Refills 3, Maintenance, 04/29/22 14:39:00 EST, Route to Pharmacy Electronically, [facility] [phone], Partial fill upon patient request if the prescription... Start Date: 04/29/22 Stop Date: 08/27/22 Status: Ordered risperiDONE 3 mg oral tablet 3 mg, 1, tablet, By Mouth, Daily at bedtime, # 30 tablet, Refills 3, Tot. Refills 3, Maintenance, 04/29/22 14:39:00 EST, Route to Pharmacy Electronically, [facility] [phone], Partial fill upon patient request if the prescri... Start Date: 04/29/22 Status: Ordered thiamine 100 mg oral tablet 100 mg, 1, tablet, By Mouth, Daily, for 30 days, # 30 tablet, Refills 3, Tot. Refills 3, Acute 08/27/22 14:40:00 EDT, 04/29/22 14:40:00 EST, Route to Pharmacy Electronically, [facility] [phone], Partial fill upon patient re... Start Date: 04/29/22 Stop Date: 08/27/22 Status: Ordered tiotropium 2.5 mcg/inh inhalation aerosol 2 puffs, Inhalation, Daily, # 1 each, 5 Refills, Maintenance, 06/28/22 14:48:00 EDT, Inhaler, [facility] [phone], Partial fill upon patient request if the [...] for Microbiology Reports Name Date Blood Culture 07/20/22 Blood Culture #2 07/20/22 Microbiology Reports TEST:Blood Culture, Second Order STATUS:Auth (Verified) BODY SITE: SOURCE:Blood COLLECTED DATE/TIME:07/20/22 3:45 PM Blood Culture, Second Order SPECIMEN DESCRIPTION : BLOOD RT HAND SPECIAL REQUESTS : NONE CULTURE : NO GROWTH 5 DAYS. REPORT STATUS : FINAL 07/25/2022 TEST:Blood Culture STATUS:Auth (Verified) BODY SITE: SOURCE:Blood COLLECTED DATE/TIME:07/20/22 3:30 PM Blood Culture SPECIMEN DESCRIPTION : BLOOD LAC SPECIAL REQUESTS : NONE CULTURE : NO GROWTH 5 DAYS. REPORT STATUS : FINAL 07/25/2022 Radiology Reports * Exam Date Time Procedure Performing Provider Status 07/20/22 2:31 PM Chest Portable Lizbeth Michel; Auth (Verified) Notes: (Chest Portable) Reason For Exam: Cough RESULT: Chest Portable Chest Portable HX OF PRESENT ILLNESS: pt dx with covid 3 wks ago, feels unwell with cough and SOB. placed on 2 L NC O2 by EMS with O2 sat 95%; Reason: Cough; Clinical Question(s): Pneumonia COMPARISON: Multiple priors, most recent chest x-ray 03/21/2022, CTA chest 02/10/2021. FINDINGS: LINES AND TUBES: None. LUNGS AND PLEURA: Increase in right lower lobe opacity. Unchanged chronic elevation of the right hemidiaphragm. Stable fibrotic changes. Normal pulmonary vascularity. No pleural effusion. No pneumothorax. HEART, MEDIASTINUM AND MICHELLE: Heart is normal in size. Normal mediastinal and hilar contour. BONES AND SOFT TISSUES: No acute abnormality. IMPRESSION: Increase in right lower lobe opacity. Findings could represent pneumonia versus atelectasis. Stable fibrotic changes. I have personally reviewed the images and I agree with this report. WSN: [id number] Ordering Physician: Jaydon Bower Dictated By: Kaylyn Reyes MD Dictated Date/Time: 07/20/22 3:01 pm Reviewed By: Alejandro Huertas MD Signed By: Alejandro Huertas MD Signed Date/Time: 07/20/22 3:06 pm Transcribed By: YAIR Transcribed Date/Time: 07/20/22 2:39 pm Vital Signs Most recent to oldest [Reference Range]: 1 2 3 4 Height 160 cm (07/26/22 12:51 PM) 160 cm (07/25/22 3:42 PM) 160 cm (07/25/22 11:33 AM) Weight 89.2 kg (07/21/22 3:16 AM) 89.2 kg (07/21/22 2:45 AM) Oxygen Saturation [94-100 %] 91 % *L* (07/26/22 12:51 PM) 90 % *L* (07/26/22 11:00 AM) 90 % *L* (07/26/22 7:00 AM) Pulse Rate [55-90 bpm] 65 bpm (07/26/22 12:51 PM) 62 bpm (07/26/22 11:00 AM) 60 bpm (07/26/22 9:00 AM) Body Mass Index [18.5-24.99 kg/m2] 34.84 kg/m2 *>HHI* (07/21/22 3:16 AM) Blood Pressure [90-138/55-84 mm Hg] 117/80mm Hg (07/26/22 12:51 PM) 112/69mm Hg (07/26/22 11:00 AM) 141/84mm Hg *H* (07/26/22 9:00 AM) 141/84mm Hg *H* (07/26/22 9:00 AM) Respiratory Rate [16-30 br/min] 18 br/min (07/26/22 12:51 PM) 18 br/min (07/26/22 11:06 AM) 18 br/min (07/26/22 7:00 AM) Temperature [96.8-100.4 DegF] 98.4 DegF (07/26/22 12:51 PM) 98.1 DegF (07/26/22 11:00 AM) 97.8 DegF (07/26/22 7:00 AM) Liters per Minute 1 L/min (07/26/22 3:08 AM) 1 L/min (07/25/22 11:27 PM) 1 L/min (07/25/22 7:00 PM) Mode of Delivery (Oxygen) Room air (07/26/22 12:51 PM) Room air (07/26/22 11:00 AM) Room air (07/26/22 7:00 AM) Blood pressure sites Arm, right (07/26/22 12:51 PM) Arm, left (07/26/22 11:00 AM) Arm, left (07/26/22 7:00 AM) Temperature Route Oral (07/26/22 12:51 PM) Oral (07/26/22 11:00 AM) Oral (07/26/22 7:00 AM) Dry Weight 89.2 kg (07/21/22 3:16 AM) Weight Obtained Via Bed scale (07/21/22 2:45 AM) Social History Social History Type Response Smoking Status 5-9 cigarettes (betw een 1/4 to 1/2 pack)/day in last 30 days; Interested in cessation: No; Patient wants NRT during admission Yes; Type: Cigarettes entered on: 06/29/21 Sex Admission evaluation note * Antonieta HAYDEN, Darlene Gonzales: MODIFY Bakari DO, Sophie: MODIFY, MODIFY Bakari DO, Sophie: MODIFY, MODIFY Bakari DO, Sophie: MODIFY, MODIFY Bakari DO, Sophie: MODIFY, MODIFY Bakari DO, Sophie: MODIFY, MODIFY Bakari DO, Sophie: MODIFY, MODIFY Bakari DO, Sophie: MODIFY, MODIFY Bakari DO, Sophie: MODIFY, MODIFY Bakari DO, Sophie: MODIFY, MODIFY Bakari DO, Sophie: MODIFY, MODIFY Bakari DO, Sophie: MODIFY, PERFORM Bakari DO, Sophie: PERFORM, MODIFY Bakari DO, Sophie: MODIFY, MODIFY Bakari DO, Sophie: MODIFY Event Display: Admission Note Authored Date: [id number] Patient: ??AVILA, ACRYL ? Age:??56 Years?Sex:??Female?:??1965?? Chief Complaint/Reason for Consultation SOB History of Present Illness Caryl Avila is a 56 year old female with PMH of type 2 diabetes, heart failure, cirrhosis, CKD, schizoaffective disorder, asthma/COPD who presented to ED on 07/20 for SOB and general malaise. ?? Since her hospitalization a few weeks ago for COVID 19 at [facility], she reports feeling unwell. Her symptoms include cough. She initially required NRB, but was able to be transitioned to 2L NC. ?? In ED, vitals were BP 127/91, HR 77, RR 25, T afebrile, and O2 95-98% 2L NC. Labs show leukocytosis WBC 17.6 with 9% bands, normal Hgb 11.7 and platelets 316, Na 134, K 4.3, Cl97, HCO3 22, BUN/Cr 9/0.8, Glucose 141, calcium 9, lactate 1.6, BNP 3662. ?? CXR shows increase in right lower lobe opacity, findings could represent pneumonia vs atelectasis, stable fibrotic changes. ?? In ED, patient received ceftriaxone 1g, azithromycin 500mg, and 1L fluids. On my evaluation, she reports she is not feeling well. She reports cough and shortness of breath. She reports feeling hot and cold all the time. She denies chest pain. Review of Systems A full review of systems was completed and is otherwise negative except as mentioned in history of present illness. Objective Vital Signs?? Temperature: 98.2 DegF (07/20/22 19:50:00) Temperature Route: Oral (07/20/22 19:50:00) Pulse Rate: 75 bpm (07/20/22 19:50:00) Respiratory Rate: 20 br/min (07/20/22 19:50:00) Systolic Blood Pressure: 113 mm Hg (07/20/22 19:50:00) Diastolic Blood Pressure:??85 mm Hg??High (07/20/22 19:50:00) Blood pressure sites: Arm, right (07/20/22 19:50:00) Mean Arterial Pressure: 103 mm Hg (07/20/22 14:21:00) Pulse Pressure: 28 mm Hg (07/20/22 19:50:00) Oxygen Saturation: 96 % (07/20/22 19:50:00) Liters per Minute: 2 L/min (07/20/22 19:50:00) Mode of Delivery (Oxygen): Nasal cannula (07/20/22 19:50:00) Early Warning Score: 4 (07/20/22 19:52:21) ? Physical Exam Constitutional: Alert, in no acute distress. Head EENT: Extraocular muscle movement intact.??Moist mucous membranes.?? Neck: Supple. No JVD. Cardiovascular: S1S2 regular. No murmurs, rubs or gallops. Respiratory:??Diffuse minimal crackles.??No use of accessory muscles. Gastrointestinal: Abdomen soft, non-tender, non-distended. Normal bowel sounds. Extremities: No lower extremity pitting??edema. Neurologic: AAOx3, Speech normal. No focal neurological deficits. Skin: No rash. Psychiatric: Normal mood and affect. Assessment/Plan Caryl Avila is a 56 year old female with PMH of type 2 diabetes, heart failure, cirrhosis, CKD, schizoaffective disorder, asthma/COPD who presented to ED on 07/20 for SOB and general malaise. Patient recently had COVID. She presents with continually not feeling well, and was found to require oxygen. She was found to have a RLL PNA, and was admitted for further management. ?? Acute hypoxic respiratory failure Post-COVID bacterial pneumonia She was recently admitted to [facility] for management of COVID 19 Presents with worsening symptoms with cough, labs with WBC 17.6 and CXR with RLL opacity Denies chest pain or lower extremity edema Patient has had many bacterial infections (could be in setting of splenectomy) ?? Plan: -Continue ceftriaxone and azithromycin -Continue O2 via NC PRN -Obtain procalcitonin, RSV/flu -Obtain HIV testing -F/u blood cultures -ICS ?? Chronic stable medical conditions HTN, HF: continue amlodipine, clonidine, carvedilol Schizoaffective disorder: currently denies any visual or auditory hallucinations. continue depakote, risperidone. Diabetes: continue lantus, POC TID and QHS Chronic pancreatitis: continue pancrelipase ?? Quality Measures Diet: Cardiac DVT Prophylaxis: Lovenox Code: FULL ?? Patient's care and plan discussed with attending, Dr. Fung. ?? Sophie Villegas DO Internal Medicine PGY2 [id number] ? Attending Attestation:??I have seen and evaluated this patient-07/21/22 upon arrival to after she had presented for evaluation of increased dyspnea with cough, congestion, malaise with subj fevers and was found to have leukocytosis to 17.6 with 9% bands and CXR showing RLL PNA in setting of recent recurrent COVID-19 infection in 06/2022.?? The patient?? was being verbally belligerent with the RN and was not receptive of teaching or medical recommendations to wear oxygen.??She was hypoxic with her O2 off as she did not believe she could drink tea while wearing the NC O2-- and also refused??exam but appeared comfortable.??I have discussed the case and its management with the resident and agree with the findings and plan as documented in the resident???s note. ?? Histories Allergies Allergies ?(Active and Proposed Allergies Only) NSAIDs? (Severity: Unknown severity, Onset: Unknown) ?Comments: listed due to pt's liver disease predniSONE? (Severity: Unknown severity, Onset: Unknown) ?Reactions: Dizziness -DEC-2015 21:52:27<$> Zyprexa? (Severity: Unknown severity, Onset: Unknown) ?Reactions: Hypertension ?? Past Medical History/Problem List Active Problems??(29) Asthma Atrophic vaginitis Biventricular HF (heart failure, EF 20-30%) Chronic kidney disease (CKD) Chronic low back pain w/Bilateral LE Radiculopathy (Lumbar DDD, MRI 03/2011) Cirrhosis of liver (Steatohepatitis/NAFLD, Suspected GI Sarcoidosis but no findings sarcoid 2012 liver biopsy) COPD without exacerbation CS (cervical spondylosis) Diabetes Dyshidrotic eczema General medical H/O tubal ligation History of cholecystectomy History of Chronic pancreatitis & Pseudocyst History of splenectomy Hyperglycemia due to diabetes mellitus Hypertension Incisional hernia Nicotine dependence Obesity (BMI 30.0-34.9) Pulmonary HTN, Severe *Schizoaffective disorder, bipolar type Steatohepatitis (w/Stage III Fibrosis, Liver Biopsy 05/2012) Tobacco use ?? Recurrent COVID -19 02/2022 and 06/2022 h/o strep bacteremia in 12/2021 R post auricular abscess-- streph species 03/11 ?? Past Surgical History Laparotomy: 03/2013 Laparoscopic Cholecystectomy: 2002 *Splenectomy Cesarian Section: 1991 Cesarian Section: 1987 Cesarian Section: 1981 Cesarian Section: 1980 ?? Social History Alcohol Details:??Use: Never. Substance Abuse Details:??Use: Never. Tobacco Details:??Use: 5-9 cigarettes (between 1/4 to 1/2 pack)/day in last 30 days. ??Interested in cessation: No. ??Yes, Type: Cigarettes. ?? Family History Mother: Cervical; Stomach?? Medications Home Medications Albuterol (albuterol 90 mcg/inh inhalation powder)?2?puff(s)?Inhalation?Every 4 hours?as needed?as needed?PRN Wheezing Amlodipine (amLODIPine 5 mg oral tablet)?5?Milligram?1?tablet?By Mouth?Daily Benztropine (benztropine 1 mg oral tablet)?0.5?Milligram?0.5?tablet?By Mouth?2 times a day?for 30?Days Carvedilol (carvedilol 12.5 mg oral tablet)?TAKE 1 TABLET BY MOUTH EVERY TWELVE HOURS Clonidine (cloNIDine 0.1 mg oral tablet)?0.1?Milligram?1?tablet?By Mouth?Daily?for 30?Days Divalproex Sodium (divalproex sodium 500 mg oral enteric coated tablet)?Take 2 tablet by mouth twice a day Take 2 tablets (=1000mg), twice a day Folic Acid (folic acid 1 mg oral tablet)?1?tablet?By Mouth?Daily Insulin Glargine (Lantus Solostar Pen 100 units/mL subcutaneous solution)?6?unit(s)?Subcutaneous Injection?Daily in AM Lactulose (lactulose 10 gm/15 ml oral syrup)?See Instructions?TAKE 30mls BY MOUTH two (2) times a day Multivitamin (multivitamin Multiple Vitamins oral tablet)?1?tab(s)?By Mouth?Daily Pancrelipase (Creon 12,000 units oral delayed release capsule)?1?capsule?By Mouth?3 times a day Pantoprazole (pantoprazole 40 mg oral delayed release tablet)?1?tab(s)?By Mouth?Daily Risperidone (risperiDONE 2 mg oral tablet)?2?Milligram?1?tablet?By Mouth?Daily Dominique?for 30?Days Risperidone (risperiDONE 3 mg oral tablet)?3?Milligram?1?tablet?By Mouth?Daily atbedtime Thiamine (thiamine 100 mg oral tablet)?100?Milligram?1?tablet?By Mouth?Daily?for 30?Days Tiotropium (tiotropium 2.5 mcg/inh inhalation aerosol)?2?puff(s)?Inhalation?Daily?for 30?Days Results Recent Labs BLOOD COUNT & DIFF WBC 17.6 k/mm3 (High)?? 07/20/2022 13:43 RBC 3.65 m/mm3 (Low)?? 07/20/2022 13:43 Hgb 11.7 Gm/dL ()?? 07/20/2022 13:43 Hct 33.7 % (Low)?? 07/20/2022 13:43 MCV 92.3 femtoliters ()?? 07/20/2022 13:43 MCH 32.1 pg ()?? 07/20/2022 13:43 MCHC 34.7 g/dL ()?? 07/20/2022 13:43 Platelet Count 316 k/mm3 ()?? 07/20/2022 13:43 RDW-SD 54.8 femtoliters (High)?? 07/20/2022 13:43 MPV 13.5 femtoliters (High)?? 07/20/2022 13:43 Nucleated RBC (Automated) 0.0 #/100 WBC'S ()?? 07/20/2022 13:43 Abs. NRBC 0.0 k/mm3 ()?? 07/20/2022 13:43 Abs. Neut 8.6 k/mm3 (High)?? 07/20/2022 13:43 Abs. Lymph 7.4 k/mm3 (High)?? 07/20/2022 13:43 Abs. Bullitt 1.1 k/mm3 (High)?? 07/20/2022 13:43 Abs. Eo 0.0 k/mm3 ()?? 07/20/2022 13:43 Abs. Baso 0.0 k/mm3 ()?? 07/20/2022 13:43 Neut % 40.0 % (Low)?? 07/20/2022 13:43 Lymph % 38.0 % ()?? 07/20/2022 13:43 Bullitt % 6.0 % ()?? 07/20/2022 13:43 Eos % 0.0 % ()?? 07/20/2022 13:43 Baso % 0.0 % ()?? 07/20/2022 13:43 Metamyelocyte % 3.0 % (High)?? 07/20/2022 13:43 Band % 9.0 % (High)?? 07/20/2022 13:43 Atypical Lymph % 4.0 % ()?? 07/20/2022 13:43 RBC Morphology MODERATE ()?? 07/20/2022 13:43 ?? CARDIAC Nt-Probnp 3662 pg/mL (High)?? 07/20/2022 13:43 ?? CHEM GENERAL Sodium 134 mmol/L ()?? 07/20/2022 13:43 Potassium 4.3 mmol/L ()?? 07/20/2022 13:43 Chloride 97 mmol/L (Low)?? 07/20/2022 13:43 Bicarbonate Level 22 mmol/L ()?? 07/20/2022 13:43 Anion Gap 15 ()?? 07/20/2022 13:43 Glucose Level 141 mg/dL (High)?? 07/20/2022 13:43 BUN 9 mg/dL ()?? 07/20/2022 13:43 Creatinine-Blood 0.8 mg/dL ()?? 07/20/2022 13:43 Estimated GFR Creatinine 87 ML/MIN/1.73 M2 ()?? 07/20/2022 13:43 Calcium 9.0 mg/dL ()?? 07/20/2022 13:43 Lactate 1.6 mmol/L ()?? 07/20/2022 16:09 ?? EKG study * Event Display: ECG 12-Lead Authored Date: Please click on pdf link to open report * Event Display: ECG 12-Lead Authored Date: Ventricular Rate: 76 BPM Atrial Rate: 76 BPM P-R Interval: 192 ms QRS Duration: 112 ms Q-T Interval: 394 ms QTC Calculation(Bazett): 443 ms P Earleton: 55 degrees R Earleton: 41 degrees T Earleton: 52 degrees Normal sinus rhythm Possible Left atrial enlargement Nonspecific ST abnormality Abnormal ECG When compared with ECG of 10-MAR-2022 11:27, No significant change was found Confirmed by KATY LEDEZMA DO ([id number]) on 07/22/2022 9:41:32 AM [place]: KATY LEDEZMA DO Cardiology * Event Display: Cardiac Rhythm Strips Authored Date: Hospital Progress note * Mera Garland RN: PERFORM, SIGN, VERIFY Event Display: Progress Note Hospital Authored Date: Patient: CARYL AVILA Age: 56 years Sex: Female : 1965 Associated Diagnoses: None Author: Mera Garland RN Findings Problem Related to Alteration in Respiratory Function (new) : Alteration in Respiratory Function/new 07/25/2022 14:00 EDT Alteration in Resp Status Related to Pneumonia, Other: SOB Goals & Outcomes, Respiratory Pt will maintain/resume baseline physical assessment, Pt will notdevelop complications r/t mechanical ventilation, Pt will maintain adequate nutritional intake, Pt will maintain/resume normal fluid/electrolyte balance, Pt will not develop complications r/t immobility, Pt will demonstrate proper technique w/self care procedures Interventions, Respiratory Assess for and report S&S of respiratory distress, Position for comfort & optimal oxygenation BH Goals/Interventions, Respiratory Yes . Evaluation Ms Avila is a/o x 4. Pt with non productive cough. Pt offered cough syrup but refused. See [facility] for further assessment/labs/vs and I/O's. Will cont to monitor plan of care.. * Fabio Shah DO: PERFORM, MODIFY, MODIFY, MODIFY Event Display: Progress Note Hospital Authored Date: [id number] Patient: ??CARYL AVILA ? Age:??56 Years?Sex:??Female?:??1965?? Subjective No acute events reported overnight.?? Patient reports feeling somewhat better and has been able to walk around,??she was able to work with PT today which is an improvement. She continues to have a cough and shortness of breath requiring oxygen via NC. Review of Systems A review of systems was completed and is otherwise negative except as mentioned in history of present illness. Allergies Allergies ?(Active and Proposed Allergies Only) NSAIDs? (Severity: Unknown severity, Onset: Unknown) ?Comments: lsited due to pt's liver disease predniSONE? (Severity: Unknown severity, Onset: Unknown) ?Reactions: Dizzinesses ? 02-JAN-2016 21:52:27<$> Zyprexa? (Severity: Unknown severity, Onset: Unknown) ?Reactions: Hypertension ? Objective Measurements?? Height: 160 cm (07/25/22) Weight: 89.2 kg (07/21/22) Dry Weight: 89.2 kg (07/21/22) Body Mass Index:??34.84 kg/m2??Critical (07/21/22) ? Vital Signs?? Temperature: 98.4 DegF (07/25/22 15:42:00) Temperature Route: Oral (07/25/22 15:42:00) Pulse Rate: 67 bpm (07/25/22 15:42:00) Respiratory Rate: 18 br/min (07/25/22 15:42:00) Systolic Blood Pressure: 131 mm Hg (07/25/22 15:42:00) Diastolic Blood Pressure: 83 mm Hg (07/25/22 15:42:00) Blood pressure sites: Arm, left (07/25/22 15:42:00) Mean Arterial Pressure: 99 mm Hg (07/25/22 15:42:00) Pulse Pressure: 48 mm Hg (07/25/22 15:42:00) Oxygen Saturation: 95 % (07/25/22 15:42:00) Liters per Minute: 1 L/min (07/25/22 15:42:00) Mode of Delivery (Oxygen): Nasal cannula (07/25/22 15:42:00) Early Warning Score: 2 (07/25/22 16:40:22) ? Intake/Output? 07/20 16:15 07/25 07:00 05/06 07:00 05 07:00 0504 07:00 ?? 07/25 17:41 07/25 17:41 07/25 06:59 0506 06:59 0505 06:59 Intake ? 3050 ?480 ?600 ?0 ?650.0 Output ?450 ?300 ?0 ?150 ?0 Net Total ? 2600 ?180 ?600 ? -150 ?650.0 ? Urine Count ? 13 ?1 ?2 ?2 ?6 ? Physical Exam General: The patient was found resting and in no acute distress, nasal canula in place. HEENT:??NCAT, EOMI, no scleral icterus,??moist mucus membranes, trachea midline. Cardiovascular: RRR S1 and S2 heard with no murmurs, rubs or gallops. Respiratory: Diffuse rhochorous breath sounds, without wheezing. GI: Soft. Nontender and nondistended. Normal bowel sounds present. MSK: No edema, no erythema in the lower extremities. Skin:??No rashes, bruises or skin breakdown. Neuro: No slurred speech, no gross motor or neuro deficits. Sensation intact throughout. Psych: Alert and oriented x3, appropriate level of concern and pleasant. _ Inpatient Medications Medications (30) Active SCHEDULED: (19) Albuterol/Ipratropium Inhalation Delia 3mL (Duoneb Inhalation Solution) ??1 vials, BAND Nebulizer, 4 times a day Amlodipine 5 mg Tablet (amLODIPine 5 mg oral tablet) ??5 mg, By Mouth, Daily Benztropine 1 mg Tablet (benztropine 1 mg oral tablet) ??0.5 mg, By Mouth, 2 times a day Carvedilol 12.5 mg Tablet (carvedilol 12.5 mg oral tablet) ??12.5 mg, By Mouth, 2 times a day Ceftriaxone 1 Gm Inj (Ceftriaxone Inj) ??1 Gm, IVPB, Every 24 hours Clonidine 0.1 mg Tablet (cloNIDine 0.1 mg oral tablet) ??0.1 mg, By Mouth, Daily Divalproex 500 mg Tablet (Depakote Tablet) ??1,000 mg, By Mouth, 2 times a day Enoxaparin 40 mg Inj (Enoxaparin Inj) ??40 mg 0.4 mL, Subcutaneous Injection, Every 24 hours Folic Acid 1 mg Tablet (folic acid 1 mg oral tablet) ??1 mg, By Mouth, Daily Insulin Glargine 100 units/mL Inj (Insulin Glargine Inj) ??6 units 0.06 mL, Subcutaneous Injection,Daily in AM Lactulose 20 Gm/30mL Syrup (lactulose 10 gm/15 ml oral syrup) ??20 Gm 30 mL, By Mouth, 2 times a day Multivitamin Tablet ??1 tablet, By Mouth, Daily NaCl 0.9% Flush 3ml (NaCL 0.9% Flush) ??3 mL, IV Push, Every 8 hours Pancrelipase 3,000 unit Capsule (Pancrelipase Capsule) ??12,000 units 4 capsule, By Mouth, 3 times a day with meals Pantoprazole 40 mg EC Tablet (pantoprazole 40 mg oral delayed release tablet) ??40 mg, By Mouth, Daily PredniSONE 20 mg Tablet (predniSONE 20 mg oral tablet) ??40 mg, By Mouth, Daily Risperidone 1 mg Tablet (risperiDONE 1 mg oral tablet) ??2 mg, By Mouth, Daily in AM Risperidone 1 mg Tablet (risperiDONE 1 mg oral tablet) ??3 mg, By Mouth, Daily at bedtime Thiamine 100 mg Tablet (thiamine 100 mg oral tablet) ??100 mg, By Mouth, Daily CONTINUOUS: (0) PRN: (11) Acetaminophen 325 mg Tablet (Acetaminophen Tablet) ??650 mg, By Mouth, Every 4 hours Albuterol 90mcg/Inhalation Inhaler HFA (albuterol CFC free 90 mcg/inh inhalation aerosol) ??90 mcg 1 puffs, Inhalation, Every 4 hours Albuterol/Ipratropium Inhalation Delia 3mL (Duoneb Inhalation Solution) ??1 vials, BAND Nebulizer, Every 4 hours Benzonatate 100 mg Capsule (Tessalon Perles) ??100 mg, By Mouth, 3 times a day Chloraseptic Lozenge ??1 lozenge, By Mouth, Every 3 hours Dextromethorphan-Guaifenesin 20 mg-200 mg/10 mL Liqu UD (Robitussin DM Liquid) ??10 mL, By Mouth, Every 4 hours Melatonin 3 mg Tablet (Melatonin Tablet) ??3 mg, By Mouth, Daily at bedtime NaCl 0.9% Flush 3ml (NaCL 0.9% Flush) ??3 mL, IV Push, Every 8 hours Polyethylene Glycol 17 Gm Powder (MiraLax Powder) ??17 Gm 1 pack/packet, By Mouth, Daily Senna 8.6 mg / Docusate 50 mg tablet (Docusate/Senna Tablet) ??1 tablet, By Mouth, 2 times a day Trazodone 50 mg Tablet (traZODone 50 mg oral tablet) ??50 mg, By Mouth, Once ? Results Abnormal Labs ?? BLOOD COUNT & DIFF ??Abs. Imm Gran ??0.0 k/mm3 () ??07/25/2022 10:24 ??Abs. Lymph ??3.9 k/mm3 (High) ??07/25/2022 10:24 ??Abs. Bullitt ??1.4 k/mm3 (High) ??07/25/2022 10:24 ??Abs. NRBC ??0.0 k/mm3 () ??07/25/2022 10:24 ??Hct ??35.4 % (Low) ??07/25/2022 10:24 ??Imm Gran ??0.3 % () ??07/25/2022 10:24 ??MPV ??13.1 femtoliters (High) ??07/25/2022 10:24 ??Bullitt % ??13.9 % (High) ??07/25/2022 10:24 ??Nucleated RBC (Automated) ??0.0 #/100 WBC'S () ??07/25/2022 10:24 ??RBC ??3.75 m/mm3 (Low) ??07/25/2022 10:24 ??RDW-SD ??55.8 femtoliters (High) ??07/25/2022 10:24 ? CHEM GENERAL ??AST (SGOT) ??38 units/L (High) ??07/25/2022 10:24 ??Alkaline Phosphatase ??204 units/L (High) ??07/25/2022 10:24 ??Bicarbonate Level ??30 mmol/L (High) ??07/25/2022 10:24 ??Estimated GFR Creatinine ??103 ML/MIN/1.73 M2 () ??07/25/2022 10:24 ??Glucose, POC ??165 mg/dL (High) ??07/25/2022 16:28 ? MISC. CHEMISTRY ??Ammonia, Venous ??52 ??mole/L (High) ??07/25/2022 10:24 ? Note: Critical results are displayed in red. ? Coagulation Profile?? No qualifying data available. ? Assessment/Plan Caryl Avila is a 56 year old female with PMH of type 2 diabetes, heart failure, cirrhosis, CKD, schizoaffective disorder, tobacco use asthma/COPD who presented to ED on 07/20 for SOB and general malaise. Patient recently had COVID. She presents after continually not feeling well, and was found to require oxygen. She was admitted with concern of a community acquired pneumonia being treated with IV antibiotics. ?Acute hypoxic respiratory failure ??Community acquired pneumonia ??Likely COPD exacerbation ?She was recently admitted to [facility] for management pneumonia; also had COVID in 03/2022. ??Presents with worsening symptoms with cough, labs with WBC 17.6 and CXR with RLL opacity ??Denies chest pain or lower extremity edema ??Patient has had many bacterial infections (could be in setting of splenectomy) ??Procalcitonin was 0.13 ??She had recently been admitted to [facility] in May with pneumonia but not COVID pneumonia,she was discharged on doxycycline. She last had COVID in 2022 ??Pt wheezing on exam, not improving significantly with treatment so will add prednisone burst for 5 days. ??Completed 3 days of azithromycin. ??Still coughing but able to work with PT today. ?Plan: - Continue ceftriaxone??for 7 total??days (2 more days) ??-Prednisone 40 mg burst for 5 days (refused previously, but has tolerated, no clear hx of allergy) ??-Duonebs scheduled and PRN ??-ICS, Tessalon pearls and guaifenesin PRN ??-Wean oxygen as tolerated ??-Continue O2 via NC PRN ??-F/u blood cultures - NGTD - May??need pulm rehab if not improving off oxygen ?? Schizoaffective disorder: appreciate input from psychiatry, valproic acid??level within therapeutic range at 82, more alert today Less agitated, but very resistant to working with us on safe dc plan. ?? Plan: continue home Depakote, risperidone. ?? Chronic stable medical conditions HTN, HF: continue amlodipine, clonidine, carvedilol Diabetes: continue Lantus, POC TID and QHS Chronic pancreatitis: continue pancrelipase with meals TID ?? Quality Measures Diet: Cardiac DVT Prophylaxis: Lovenox Code: FULL ?? OMN: continued hypoxia, requiring continued assessment and treatment on IV??abx ?? Dispo: the patient was requesting to talk with social work, she said that she does not live in [facility] & needs help finding safe housing.??Social work consulted. ?? PT recs home with services on 07/25 ?? Discussed with ??Usman ?? - Fabio Shah, - PGY2 - Internal Medicine - Pager # [phone]? * Usman HAYDEN, Aspen Gonzales: PERFORM Event Display: Progress Note Hospital Authored Date: Patient seen and discussed with Dr. Shah. Agree with findings, assessment and plan in this progress note. Improving and now participating with PT. 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 Pt calm and cooperative with care. Agrees for Ceftriaxone. Pt nowresting comfortably and safety maintained. . Discharge Information Rehabilitation Discharge : Rehab Discharge Index 07/22/2022 8:40 EDT Hospital course Hospital course (Modified) Note * Afshan Bullard RN: PERFORM Event Display: Discharge/Transfer Note Hospital Authored Date: Nursing Discharge Note Entered On: 07/26/2022 13:59 EDT Performed On: 07/26/2022 13:57 EDT by Afshan Bullard RN Nursing Discharge Note 2 Discharge Time : 07/26/2022 13:50 EDT Discharge Level of Care at Discharge : Homehealth/VNA Discharge VNA/Hospice/Home Care(v001) : [facility] Patient Left Unit Via : Wheelchair Patient Accompanied Off Unit with : Responsible adult DC Instructions Provided & Signed by Pt : Yes Patient Understands D/C Instructions : Yes Patient Instructions Discharge Signed : Yes Discharge Comments : IV dc'd with the tip intact Did Pt have Specialty Bed or Wound Vac : No Afshan Bullard RN - 07/26/2022 13:57 EDT * Vignesh Chatman MD: PERFORM Event Display: Discharge/Transfer Note Hospital Authored Date: Patient: ??AVILA, CARYL ? Age:??56 Years?Sex:??Female?:??1965?? Patient Information Discharge Location: Primary Care Physician: Jaki Bishop MD Admit Date/Time: 07/20/22 16:15 Discharge Disposition Discharge Disposition: Home with Home Health Discharge Diagnosis Pneumonia?? COPD exacerbation Essential Hypertension Heart Failure with reduced ejection??Fraction Type II Diabetes Mellitus Chronic Pancreatitis?? _ Discharge Medications Albuterol (albuterol 90 mcg/inh inhalation powder)?2?puff(s)?Inhalation?Every 4 hours?as needed?as needed?PRN Wheezing Amlodipine (amLODIPine 5 mg oral tablet)?5?Milligram?1?tablet?By Mouth?Daily Benzonatate (benzonatate 100 mg oral capsule)?1?capsule?100?Milligram?By Mouth?3 times a day?as needed?Cough?for 7?Days Benztropine (benztropine 1 mg oral tablet)?0.5?Milligram?0.5?tablet?By Mouth?2 times a day?for 30?Days Carvedilol (carvedilol 12.5 mg oral tablet)?TAKE 1 TABLET BY MOUTH EVERY TWELVE HOURS Clonidine (cloNIDine 0.1 mg oral tablet)?0.1?Milligram?1?tablet?By Mouth?Daily?for 30?Days Divalproex Sodium (divalproex sodium 500 mg oral enteric coated tablet)?Take 2 tablet by mouth twice a day Take 2 tablets (=1000mg), twice a day Durable Medical Equipment (Freestyle Lite Monitor)?See Instructions?for [...] Folic Acid (folic acid 1 mg oral tablet)?1?tablet?By Mouth?Daily Insulin Glargine (Lantus Solostar Pen 100 units/mL subcutaneous solution)?6?unit(s)?Subcutaneous Injection?Daily in AM Lactulose (lactulose 10 gm/15 ml oral syrup)?30?Milliliter?By Mouth?2 times a day Multivitamin (multivitamin Multiple Vitamins oral tablet)?1?tab(s)?By Mouth?Daily Pancrelipase (Creon 12,000 units oral delayed release capsule)?1?capsule?By Mouth?3 times a day Pantoprazole (pantoprazole 40 mg oral delayed release tablet)?1?tab(s)?By Mouth?Daily PredniSONE (predniSONE 20 mg oral tablet)?2?tab(s)?40?Milligram?By Mouth?Daily?for 2?Days?Take 2 tablets daily on 07/27 and 07/28 Risperidone (risperiDONE 2 mg oral tablet)?2?Milligram?1?tablet?By Mouth?Daily Dominique?for 30?Days Risperidone (risperiDONE 3 mg oral tablet)?3?Milligram?1?tablet?By Mouth?Daily atbedtime Thiamine (thiamine 100 mg oral tablet)?100?Milligram?1?tablet?By Mouth?Daily?for 30?Days Tiotropium (tiotropium 2.5 mcg/inh inhalation aerosol)?2?puff(s)?Inhalation?Daily?for 30?Days ? Quality Measures Tobacco Use Treatment:? Durable Medical Equipment Current home treatments: Other: Medication management (03/25/22) On Admit VNA/Hospice/Home Care: [facility] [place] [address] (03/22/22) Discharge recommendations: Home with services (07/25/22) Name of Agency #1: [facility] Phone: [phone] (07/26/22) Agency Hospice Superintendent #1: intake (03/25/22) Service Categories #1: Physical Therapy, [facility] (07/26/22) Service Comments #1: [facility] , resume prior services w/ physical therapy added (07/26/22) Ambulatory devices needed: None (07/20/22) ? Medications Started Prednisone 40mg x2 days Medications Discontinued n/a Doses Changed n/a Allergies Allergies ?(Active and Proposed Allergies Only) NSAIDs? (Severity: Unknown severity, Onset: Unknown) ?Comments: lsited due to pt's liver disease predniSONE? (Severity: Unknown severity, Onset: Unknown) ?Reactions: Dizzinesses ? 02-JAN-2016 21:52:27<$> Zyprexa? (Severity: Unknown severity, Onset: Unknown) ?Reactions: Hypertension ? PCP Follow-Up/Heads-Up Patient admitted for treatment of community acquired pneumonia as well as COPD exacerbation. She completed 7 days of antibiotics and 3 days of PO steroids. Future Appointments Tuesday. 2022 1:00 PM EDT ?? With: Jaki Bishop MD Where: [facility] [address] [place] [address]- Hospital Course Caryl Avila is a 56 yo F with PMHx of type 2 diabetes, heart failure, cirrhosis, CKD, schizoaffective disorder, asthma/COPD who presented to ED on 07/20 for SOB, cough, and general malaise. She reported feeling unwell her hospitalization a few weeks ago for COVID 19 at [facility]. Her She initially requ ired NRB in ED, but was able to be transitioned to 2L NC.??In ED, vitals were BP 127/91, HR 77, RR 25, T afebrile, and O2 95-98% 2L NC. Labs show leukocytosis WBC 17.6 with 9% bands, normal Hgb 11.7 and platelets 316, Na 134, K 4.3, Cl 97, HCO3 22, BUN/Cr 9/0.8, Glucose 141, calcium 9, lactate 1.6,BNP 3662. CXR shows increase in right lower lobe opacity, findings could represent pneumonia vs atel ectasis, stable fibrotic changes.??In ED, patient received ceftriaxone 1g, azithromycin 500mg, and 1L fluids. Patient was treated with Ceftriaxone and Azithromycin for community acquired pneumonia. She also was started on treatment for COPD exacerbation on 07/23 as she was found to have wheezing and respiratory status improved slowly on IV antibiotics. She was weaned to room air 05/08AM and was breathing comfortably. SW was consulted due to housing concerns (She resides in [address] with her brother.?? A lot of gang related activity.). SW provided patient with??information regarding resources to help with housing. Physical therapy evaluated the patient and recommended discharge homewith services. She was hemodynamically stable, breathing comfortably in room air, and was discharged back home with services. ?? Community acquired pneumonia Presented with SOB,??cough,??leukocytosis 17.6 WBCs. CXR showed increase in right lower lobe opacity. Blood Culture negative. Procal 0.13. Completed 7/7 days of IV Ceftriaxone and 3 days of Azithromycin Recommendations: - Guaifenesin and Tessalon Perls PRN for cough ?? COPD exacerbation Patient developed wheezing on 07/23 and had slow improvement of respiratory status on antibiotics so prednisone for COPD exacerbation was started. Olayinkan refused steroids on 07/24. Recommendations: -??Complete 5 days of Prednisone PO (05/23 in hospital) - Continue Tiotropium??2??puffs daily and Albuterol 2 puffs q4hrs PRN ?? Schizoaffective disorder: Psych consulted and recommended checking Depakote level, but no medication changes. Depakote level was 82) Recommendations: - continue home Depakote, risperidone. ?? Chronic stable medical conditions ??HTN, HF: continue amlodipine, clonidine, carvedilol ??Diabetes: continue Lantus, POC TID and QHS ??Chronic pancreatitis: continue pancrelipase with meals TID ?? PT recs home with services on 07/25 ?? Objective Vital Signs?? Temperature: 97.8 DegF (07/26/22 07:00:00) Temperature Route: Oral (07/26/22 07:00:00) Pulse Rate: 60 bpm (07/26/22 09:00:00) Respiratory Rate: 18 br/min (07/26/22 11:06:00) Systolic Blood Pressure:??141 mm Hg??High (07/26/22 09:00:00) Systolic Blood Pressure:??141 mm Hg??High (07/26/22 09:00:00) Diastolic Blood Pressure: 84 mm Hg (07/26/22 09:00:00) Diastolic Blood Pressure: 84 mm Hg (07/26/22 09:00:00) Blood pressure sites: Arm, left (07/26/22 07:00:00) Mean Arterial Pressure: 99 mm Hg (07/25/22 15:42:00) Pulse Pressure: 57 mm Hg (07/26/22 07:00:00) Oxygen Saturation:??90 %??Low (07/26/22 07:00:00) Liters per Minute: 1 L/min (07/26/22 03:08:00) Mode of Delivery (Oxygen): Room air (07/26/22 07:00:00) Early Warning Score: 5 (07/26/22 11:06:57) ? . Physical Exam General:??Well-appearing female. Alert and oriented x3. No acute distress HEENT:??Normocephalic. Atraumatic. PERRL. EOMI. Nares patent bilaterally.??Moist mucous membranes. Oropharynx is clear, without posterior erythema.?? Respiratory:??Diminished lung sounds diffusely, no wheezing. Coarse breaths sounds diffusely. Normal respiratory effort. Breathing comfortably in room air. Cardiovascular:??Regular rate and rhythm. S1, S2 normal. No murmurs. Peripheral pulses are 2+ bilaterally. Capillary refill is < 2 sec.?? Gastrointestinal:??Soft. Non-distended. Normoactive bowel sounds. Non-tender. No rebound or guarding.??Central abdominal scar present. Musculoskeletal:??No LE edema. Skin:??Warm, dry. No rashes. Neurological:??Alert, awake. Normal tone. No focal neuro deficits. Psych:??euthymic mood, appropriate affect Consultants Psychiatry Pending Results Add On Lab Order ordered on 07/20/2022 Blood Gas Arterial ordered on 07/23/2022 Respiratory Pathogen PCR with COVID-19 ordered on 07/21/2022 Urinalysis w/hold for Urine Culture ordered on 07/20/2022 Patient Education Titles Pneumonia (Adult)?? Patient Instructions You were admitted to [facility] for treatment of pneumonia. You were treated with IV antibiotics and oxygen. You completed 7 days of IV antibiotics for your pneumonia. You were also started on a??5 day course of??steroids for COPD exacerbation. Please continue taking the steroids for??2 more days. ?? Please return to the ED if you experience any new or worsening shortness of breath, chest pain, dizziness, lightheadedness or feel like you are going to faint. ?? Please follow up with your primary care doctor within 1 week. ?? Meds added: Prednisone 40mg x??2 days, Tessalon Perls PRN Home Health Face to Face *Denotes mandatory strange ?? *I certify that this patient is under my care and that I or an allowed non- physician working with me had a face to face encounter with the patient on this date:??07/26/2022 11:27 ?? *The encounter with the patient was in whole, or in part, for the following medical condition, which is the primary diagnosis(es) for home health care:??Pneumonia (J18.9) ? *Select the indications for the discipline/s that are being arranged for this patient. Nursing (select all that apply): [_] None [_] Medication management (reconciliation, teaching)?? [X] Chronic disease management?? [_] Wound care and treatment?? [X] Home safety evaluation [_] Administer SQ/IM/IV medications?? [_] Cath care?? [_] Drain care?? [_] Trach or GT care?? Other _ Occupation Therapy (select all that apply): [_] None [_] ADL Management [X] Fall prevention training [_] Energy conservation [_] Cognitive training Other _ Physical Therapy (select all that apply): [_] None [X] Functional mobility training [_] Home exercise program to strengthen [_] Increase ROM?? [X] Falls prevention training [X] Home maintenance program for chronic disease Other _ Speech Therapy (select all that apply): [_] None [_] Swallow evaluation and training [_] Speech and language training [_] Cognitive training to process, organize, and/or recall information Other _ ? *Homebound due to (select all that apply): [_] Inability to leave home without assistance/supervision [_] Inability to ambulate without assistance [_] Pain [X] Decreased strength and endurance [X] Unsteady gait [_] Severe SOB and fatigue [_] Impaired transfers [_] Inability to negotiate stairs [_] Limited weight bearing [_] Mental status change? *Physician Signature: Vignesh Chatman MD ?? *By signing this, I certify that I have personally evaluated the patient and agree with the findings and recommendations as documented above. ? Results Discharge Labs BLOOD COUNT & DIFF WBC 9.2 k/mm3 ()?? 07/26/2022 01:41 RBC 3.65 m/mm3 (Low)?? 07/26/2022 01:41 Hgb 11.5 Gm/dL (Low)?? 07/26/2022 01:41 Hct 34.1 % (Low)?? 07/26/2022 01:41 MCV 93.4 femtoliters ()?? 07/26/2022 01:41 MCH 31.5 pg ()?? 07/26/2022 01:41 MCHC 33.7 g/dL ()?? 07/26/2022 01:41 Platelet Count 272 k/mm3 ()?? 07/26/2022 01:41 RDW-SD 54.8 femtoliters (High)?? 07/26/2022 01:41 MPV 13.4 femtoliters (High)?? 07/26/2022 01:41 Nucleated RBC (Automated) 0.0 #/100 WBC'S ()?? 07/26/2022 01:41 Abs. NRBC 0.0 k/mm3 ()?? 07/26/2022 01:41 Abs. Neut 4.7 k/mm3 ()?? 07/25/2022 10:24 Abs. Lymph 3.9 k/mm3 (High)?? 07/25/2022 10:24 Abs. Bullitt 1.4 k/mm3 (High)?? 07/25/2022 10:24 Abs. Eo 0.0 k/mm3 ()?? 07/25/2022 10:24 Abs. Baso 0.0 k/mm3 ()?? 07/25/2022 10:24 Neut % 46.9 % ()?? 07/25/2022 10:24 Lymph % 38.2 % ()?? 07/25/2022 10:24 Bullitt % 13.9 % (High)?? 07/25/2022 10:24 Eos % 0.4 % ()?? 07/25/2022 10:24 Baso % 0.3 % ()?? 07/25/2022 10:24 Myelocytes % 1.0 % ()?? 07/23/2022 22:08 Metamyelocyte % 3.0 % (High)?? 07/20/2022 13:43 Band % 2.0 % ()?? 07/23/2022 22:08 Atypical Lymph % 4.0 % ()?? 07/20/2022 13:43 RBC Morphology FEW ()?? 07/23/2022 22:08 WBC Morphology MODERATE ()?? 07/23/2022 22:08 Platelet Estimate ADEQUATE ()?? 07/23/2022 22:08 Platelet Comment MODERATE ()?? 07/23/2022 22:08 Imm Gran 0.3 % ()?? 07/25/2022 10:24 Abs. Imm Gran 0.0 k/mm3 ()?? 07/25/2022 10:24 ?? CARDIAC Nt-Probnp 3662 pg/mL (High)?? 07/20/2022 13:43 ? CHEM GENERAL Sodium 134 mmol/L ()?? 07/26/2022 01:41 Potassium 5.2 mmol/L ()?? 07/26/2022 01:41 Chloride 97 mmol/L (Low)?? 07/26/2022 01:41 Bicarbonate Level 29 mmol/L ()?? 07/26/2022 01:41 Anion Gap 8 ()?? 07/26/2022 01:41 Glucose Level 168 mg/dL (High)?? 07/23/2022 22:08 Glucose, POC 86 mg/dL ()?? 07/26/2022 07:40 BUN 16 mg/dL ()?? 07/26/2022 01:41 Creatinine-Blood 0.7 mg/dL ()?? 07/26/2022 01:41 Estimated GFR Creatinine 98 ML/MIN/1.73 M2 ()?? 07/26/2022 01:41 Calcium 9.3 mg/dL ()?? 07/23/2022 22:08 Magnesium 1.5 mg/dL (Low)?? 07/26/2022 01:41 Protein, Total 8.0 Gm/dL ()?? 07/23/2022 22:08 Albumin 2.9 Gm/dL (Low)?? 07/23/2022 22:08 AG Ratio 0.6 ()?? 07/23/2022 22:08 Alkaline Phosphatase 204 units/L (High)?? 07/25/2022 10:24 AST (SGOT) 38 units/L (High)?? 07/25/2022 10:24 ALT (SGPT) 14 units/L ()?? 07/25/2022 10:24 Bilirubin, Total 0.4 mg/dL ()?? 07/25/2022 10:24 Lactate 2.0 mmol/L ()?? 07/23/2022 22:08 ?? HEME OTHER Hold Blue Top SPECIMEN DISCARDED AFTER 4 HOURS. ()?? 07/23/2022 22:08 ? MISC. CHEMISTRY Ammonia, Venous 52 ??mole/L (High)?? 07/25/2022 10:24 Hold Green Top SPECIMEN DISCARDED AFTER 1 WEEK ()?? 07/23/2022 22:08 Procalcitonin 0.13 ng/mL ()?? 07/21/2022 03:38 ? SEROLOGY INF DISEASE HIV 4th Generation Ab-Ag Result NEGATIVE (N)?? 07/21/2022 03:38 ? TOXICOLOGY/TDM Valproic Level 82.1 mg/L ()?? 07/24/2022 03:25 ? URINE OTHER Est Creatinine Clearance 73.32 mL/min ()?? 07/26/2022 02:55 ? Vignesh Chatman MD MedPeds PGY-2 [facility]??& [place] [address].[phone] ?? Plan discussed with attending, ??Aneesh Myers ?? (This note was dictated using [email or web address] software and is prone to errors during interpretation. Any typographical/grammatical errors were not deliberate and please contact me directly for clarifications via pager or Cortext) * Afshan Bullard RN: PERFORM Event Display: Patient Education/Instruction Authored Date: [id number] Inpatient Adult Discharge Instructions [address] [address] Name: CARYL AVILA : 1965 Visit: 07/20/2022 16:15:00 Current Date: 07/26/2022 12:54 Account: [id number] Inpatient Adult Discharge Instructions We would like [...] and their families. Surveys are administered by [employer] ?? If further treatment with your primary care physician or another doctor is recommended, it is important for you to keep the appointment. Call your primary care physician or return to the Emergency Department immediately if your condition worsens, fails to improve, or new symptoms develop. If you need to find a doctor, you can call [facility] [employer] [facility] for a referral at [phone] or toll free at [phone] or log in to [email or web address].. ?? You can view and manage your care through the patient portal or by using a health care nii of your choosing. [employer] is a website that allows you to securely view your medical information including your hospital discharge summary, office visit summaries, medications and follow-up visits. You can also request appointments, renew medications, and request access to your medical information using a health care nii of your choosing, or just ask a question. You can enroll at [email or web address] or register during your next office visit. You have been discharged from [facility], Patient Care Unit: S3. If you have any questions regarding these instructions after you leave, please call us and we will be happy to assist you. [facility] Your Care Team Attending Physician Louis HAYDEN, Aneesh Almanzar Consulting Providers Maria Alejandra HAYDEN, Miguel Espinal; Chuy HAYDEN, Ximena Discharging Providers Compa HAYDEN, Vignesh Reason for Your Visit Pt arrives via EMS from home for SOB, upon EMS arrival Fire had pt on 15L NRB with a sat of 100%, EMS checked @ RA 91%, initiated 2L NC -> 95/96%. Pt c/o continued cough, lung sounds are clear. COVID dx 2 weeks ago. Your Diagnosis Pneumonia Shortness of breath Tests Performed Below is a partial list of the tests performed during your hospitalization. You may have had other tests and procedures not included in this list. Please discuss all test results with your provider. Alk Phos Ammonia Venous Basic Metabolic Panel Bilirubin Total BUN CBC CBC w/ Differential Comprehensive Metabolic Panel Creatinine Depakote Level Electrolytes GLUCOSE POC HIV Ab-Ag 4th Generation HOLD BLUE TUBE HOLD GREEN TUBE Lactate Level Lytes Magnesium Level PROBNP Procalcitonin Level SGOT SGPT Portable Chest Primary Care Provider Dario HAYDEN, Jaki Advance Directive . Discharge Vitals Temperature: 98.1 DegF Height: 160 cm Pulse Rate: 62 bpm Weight: 89.2 kg Respiratory Rate: 18 br/min Body Mass Index:??34.84 kg/m2??Critical Systolic Blood Pressure: 112 mm Hg Body surface area: 1.99 Diastolic Blood Pressure: 69 mm Hg ?? Oxygen Saturation:??90 %??Low ?? Studies Pending All tests and labs ordered during this hospital stay have been completed unless listed below. Please discuss all pending results with your provider listed above in these instructions. ?? Add On Lab Order Blood Gas Arterial (ABG) Respiratory Pathogen PCR with COVID-19 Urinalysis w/hold for Urine Culture What to do next Instructions From Your Doctor You were admitted to [facility] for treatment of pneumonia. You were treated with IV antibiotics and oxygen. You completed 7 days of IV antibiotics for your pneumonia. You were also started on a??5 day course of??steroids for COPD exacerbation. Please continue taking the steroids for??2 more days. ?? Please return to the ED if you experience any new or worsening shortness of breath, chest pain, dizziness, lightheadedness or feel like you are going to faint. ?? Please follow up with your primary care doctor within 1 week. ?? Meds added: Prednisone 40mg x??2 days, Percy Durán PRN Discharge Orders Scheduled Follow-Up Appointments Tuesday. 2022 1:00 PM EDT ?? With: Jaki Bishop MD Where: [place] [address]- You Need to Schedule the Following Appointments Follow Up with??Jaki Bishop MD When??Within 1 week Where: ?? Discharge Medications CARYL AVILA :1965 Visit Date:07/20/2022 Medications: Please continue your medications until treatment is completed or stopped by your provider. Medications not listed below should be discontinued. Discuss any questions related to medications with your provider. What How Much When Instructions Next Dose New Benzonatate (benzonatate 100 mg oral capsule) 1 capsule Oral 3 times a day as needed for Cough Duration: 7 Days Pickup at [facility] [id number] as needed New PredniSONE (predniSONE 20 mg oral tablet) 2 tab(s) Oral Daily Duration: 2 Days Take 2 tablets daily on and ?? Pickup at [facility] [id number] 5/9 AM Changed Carvedilol (carvedilol 12.5 mg oral tablet) TAKE 1 TABLET BY MOUTH EVERY TWELVE HOURS ?? 07/26 PM Changed Divalproex Sodium (divalproex sodium 500 mg oral enteric coated tablet) Take 2 tablet by mouth twice a day Take 2 tablets (=1000mg), twice a day ?? 58 PM Changed Lactulose (lactulose 10 gm/ 15 ml oral syrup) 30 Milliliter Oral Twice a day 8 PM Unchanged Albuterol (albuterol 90 mcg/ inh inhalation powder) 2 puff(s) Inhalation Every 4 hours as needed for as needed PRN Wheezing ?? as needed Unchanged Amlodipine (amLODIPine 5 mg oral tablet) 1 tab(s) Oral Daily 59 AM Unchanged Benztropine (benztropine 1 mg oral tablet) 0.5 tab(s) Oral Twice a day Duration: 30 Days 58 PM Unchanged Clonidine (cloNIDine 0.1 mg oral tablet) 1 tab(s) Oral Daily Duration: 30 Days 07/27 AM Unchanged Folic Acid (folic acid 1 mg oral tablet) 1 tab(s) Oral Daily 07/27 AM Unchanged Insulin Glargine (Lantus Solostar Pen 100 units/ mL subcutaneous solution) 6 unit(s) Subcutaneous Injection Daily in the morning 07/27 AM Unchanged Multivitamin (multivitamin Multiple Vitamins oral tablet) 1 tab(s) Oral Daily 07/27 AM Unchanged Pancrelipase (Creon 12,000 units oral delayed release capsule) 1 capsule Oral 3 times a day 5/8 PM Unchanged Pantoprazole (pantoprazole 40 mg oral delayed release tablet) 1 tab(s) Oral Daily 07/27 AM Unchanged Risperidone (risperiDONE 2 mg oral tablet) 1 tab(s) Oral Daily in the morning Duration: 30 Days 07/27 AM Unchanged Risperidone (risperiDONE 3 mg oral tablet) 1 tab(s) Oral Daily at Bedtime 5/8 PM Unchanged Thiamine (thiamine 100 mg oral tablet) 1 tab(s) Oral Daily Duration: 30 Days 07/27 AM Unchanged Tiotropium (tiotropium 2.5 mcg/ inh inhalation aerosol) 2 puff(s) Inhalation Daily Duration: 30 Days 07/27 AM Pharmacy Information [facility] - [place], [place] - [id number]: [address], [place] [id number] ?? What How Much When Comments Stop Taking Guaifenesin (guaiFENesin 100 mg/ 5 mL oral liquid) 10 Milliliter Oral Every 6 hours as needed for for cough Stop Taking Insulin Lispro (Insulin Lispro KwikPen 100 units/ mL injectable solution) See instructions INJECT SUBCUTANEOUSLY 3 (THREE) TIMES A DAY BEFORE MEALS VIA sliding scale (150- 199 2u; 200-249 4u;250-299 6u; 300-349 8u; 350-399 10u; >400 call VNA) ?? Stop Taking Nicotine (Nicotine 2 mg gum) 1 Each Chew Every hour as needed for as needed for smoking cessation Test Results Below is a partial list of the most recent Laboratory test results done prior to this discharge. You may have had other tests and procedures not included in this list. Please discuss all test resultswith your provider. Est Creatinine Clearance - 73.32 mL/min (07/26/2022) Alk Phos (07/25/2022) ???Alkaline Phosphatase - 204 units/L Ammonia Venous (07/25/2022) ???Ammonia, Venous - 52 ??mole/L Basic Metabolic Panel (07/21/2022) ???Sodium - 135 mmol/L???Potassium - 4.3 mmol/L???Chloride - 101 mmol/L???Bicarbonate Level - 19 mmol/L???Anion Gap - 15???Glucose Level - 96 mg/dL???BUN - 7 mg/dL???Creatinine-Blood - 0.7 mg/dL???Estimated GFR Creatinine - 98 ML/MIN/1.73 M2???Calcium - 8.4 mg/dL Bilirubin Total (07/25/2022) ???Bilirubin, Total - 0.4 mg/dL BUN (07/26/2022) ???BUN - 16 mg/dL CBC (07/26/2022) ???WBC - 9.2 k/mm3???RBC - 3.65 m/mm3???Hgb - 11.5 Gm/dL???Hct - 34.1 %???MCV - 93.4 femtoliters???MCH - 31.5 pg???MCHC - 33.7 g/dL???Platelet Count - 272 k/mm3???RDW-SD - 54.8 femtoliters???MPV - 13.4 femtoliters???Nucleated RBC (Automated) - 0.0 #/100 WBC'S???Abs. NRBC - 0.0 k/mm3 CBC w/ Differential (07/25/2022) ???WBC - 10.1 k/mm3???RBC - 3.75 m/mm3???Hgb - 12.0 Gm/dL???Hct - 35.4 %???MCV - 94.4 femtoliters???MCH - 32.0 pg???MCHC - 33.9 g/dL???Platelet Count - 278 k/mm3???RDW-SD - 55.8 femtoliters???MPV - 13.1 femtoliters???Nucleated RBC (Automated) - 0.0 #/100 WBC'S???Abs. NRBC - 0.0 k/mm3???Abs. Neut - 4.7 k/mm3???Abs. Lymph - 3.9 k/mm3???Abs. Bullitt - 1.4 k/mm3???Abs. Eo - 0.0 k/mm3???Abs. Baso - 0.0 k/mm3???Neut % - 46.9 %???Lymph % - 38.2 %???Bullitt % - 13.9 %???Eos % - 0.4 %???Baso % - 0.3 %???Imm Gran - 0.3 %???Abs. Imm Gran - 0.0 k/mm3 Comprehensive Metabolic Panel (07/23/2022) ???Sodium - 137 mmol/L???Potassium - 4.7 mmol/L???Chloride - 100 mmol/L???Bicarbonate Level - 27 mmol/L???Anion Gap - 10???Glucose Level - 168 mg/dL???BUN - 9 mg/dL???Creatinine-Blood - 0.7 mg/dL???Estimated GFR Creatinine - 102 ML/MIN/1.73 M2???Calcium - 9.3 mg/dL???Protein, Total - 8.0 Gm/dL???Alb umin - 2.9 Gm/dL???AG Ratio - 0.6???Alkaline Phosphatase - 226 units/L???AST (SGOT) - 48 units/L???ALT (SGPT) - 19 units/L???Bilirubin, Total - 0.3 mg/dL Creatinine (07/26/2022) ???Creatinine-Blood - 0.7 mg/dL???Estimated GFR Creatinine - 98 ML/MIN/1.73 M2 Depakote Level (07/24/2022) ???Valproic Level - 82.1 mg/L Electrolytes (07/26/2022) ???Sodium - 134 mmol/L???Potassium - 5.2 mmol/L???Chloride - 97 mmol/L???Bicarbonate Level - 29 mmol/L???Anion Gap - 8 GLUCOSE POC (07/26/2022) ???Glucose, POC - 216 mg/dL HIV Ab-Ag 4th Generation (07/21/2022) ???HIV 4th Generation Ab-Ag Result - NEGATIVE HOLD BLUE TUBE (07/23/2022) ???Hold Blue Top - SPECIMEN DISCARDED AFTER 4 HOURS. HOLD GREEN TUBE (07/23/2022) ???Hold Green Top - SPECIMEN DISCARDED AFTER 1 WEEK Lactate Level (07/23/2022) ???Lactate - 2.0 mmol/L Lytes (07/25/2022) ???Sodium - 139 mmol/L???Potassium - 4.6 mmol/L???Chloride - 99 mmol/L???Bicarbonate Level - 30 mmol/L???Anion Gap - 10 Magnesium Level (07/26/2022) ???Magnesium - 1.5 mg/dL PROBNP (07/20/2022) ???Nt-Probnp - 3662 pg/mL Procalcitonin Level (07/21/2022) ???Procalcitonin - 0.13 ng/mL SGOT (07/25/2022) ???AST (SGOT) - 38 units/L SGPT (07/25/2022) ???ALT (SGPT) - 14 units/L Allergies (NKA means No Known Allergies) NSAIDs Zyprexa??(Hypertension) predniSONE??(Dizzinesses -DEC-2015 21:52:27<$>) Problems Active Problems??(34) Age at leaving school 11th grade?? Asthma?? [...] multiple psych admissions)?? Schizoaffective disorder, bipolar type?? Steatohepatitis (w/Stage III Fibrosis, Liver Biopsy 05/2012)?? Syncope and collapse?? Tobacco use?? Weakness?? Education Materials Below is the list of Educational Leaflet Providered with your Discharge Instructions. Pneumonia (Adult)?? Valuables and Belongings I fully understand and agree that [facility] accepts no responsibility for all my [...] to send valuables and belongings home. ?? No Valuables/Belongings: No valuables/belongings present Review of Valuable and Belonging List: With patient Date for Pt to Sign Valuables/Belongings: 07/26/22 12:51:00 ?? Other Discharge Information ? Case Management Discharge Plan?? Discharge Plan?? Discharge Agency Information?? Discharge Level of Care at Discharge: Homehealth/VNA Name of Agency #1: [facility] Phone: [phone] Discharge VNA/Hospice/Home Care: [facility] Service Categories #1: Physical Therapy, [facility] ?? Service Comments #1: [facility] , resume prior services w/ physical therapy added ?? Pulmonary Rehab Status?? Pulmonary Rehab Discharge [...] are strongly encouraged to quit. Please call [facility] [employer] Link at [phone] or [phone] ([phone]) or log in to [email or web address] for referrals to smoking cessation programs. ?? 165 Suicide & Crisis Lifeline is available 11/10 if you or someone you know needs to find a reason to keep living. By calling 483 you'll be connected to a skilled, trained counselor at a crisis center in your area. INPATIENT DISCHARGE INSTRUCTIONS SIGNATURE PAGE CARYL AVILA Location:[facility] Registration Date and Time:07/20/2022 16:15 EDT Primary Care Physician: Jaki Bishop MD, I CARYL AVILA, have received the above patient education materials/instructions and have verbalized understanding. If ambulance or transport services are being used I further acknowledge being given a choice of service. ?? If you need to contact me, please call me at this number: . Patient/Truck Terminal Manager Name: Patient/Truck Terminal Manager Signature: Relationship to Patient: Witness Name/Signature: Date: * Vignesh Chatman MD: PERFORM Event Display: Patient Education Leaflets Authored Date: [id number] Pneumonia (Adult) ?? [id number] Pneumonia (Adult) Pneumonia is an infection inside the lungs. It's in the small air sacs (alveoli). It may be caused by a virus, fungus, or bacteria. Pneumonia caused by bacteria??is treated with an antibiotic medicine. Severe cases may need to be treated in the hospital. Milder cases can be treated at home. Symptoms may include fever, chills, and cough (dry or with phlegm). You may have a headache, muscle weakness, trouble breathing, and pain. These symptoms often get worse in the first 2 days. But they often start to get better in the first week of treatment. Home care Follow these guidelines when caring for yourself at home: ??? Get plenty of rest. Take naps as needed. Don???t let yourself get too tired when you go back to your activities. Go back to activities asdirected by your healthcare provider. ??? Stop smoking. This is the most important step you can take to help treat pneumonia. If you need help to stop, talk with your healthcare provider. ??? Stay away from secondhand smoke. Don???t let anyone smoke in your home or your car. ??? Wash your hands often with soap and clean, running water. Rub for at least 20 seconds. Make sure to clean under your nails and between your fingers. When you can't wash your hands, use hand head chef with at least 60% al cohol. ??? Cover your mouth and nose when coughing or sneezing. Use a tissue or the inside of your elbow. Don't cough or sneeze into your hands. Throw used tissues away. Be sure to wash your hands after coughing, sneezing, or blowing your nose. ??? Limit close contact with other people while you are sick. ??? Stay away from crowds during cold and flu season. Consider wearing a mask in crowds. ???Use pain medicine as directed. You may use acetaminophen or ibuprofen to control fever or pain, unless another medicine was prescribed. If you have chronic liver or kidney disease, talk with your healthcare provider before using these medicines. Also talk with your provider if you???ve had a stomach ulcer or bleeding in your stomach or intestines. Don???t give aspirin to a child younger than age 19 unless directed by the provider. Taking aspirin can put a child at risk for Saranya syndrome. This is a rare but very serious disorder. It most often affects the brain and the liver. ??? Drink plenty of water and other fluids. This can make mucus thinner and easier to cough up. Ask your healthcare provider how much water you should drink. For many people, 6 to 8 glasses (8 ounces each) a day is a good goal. Other fluids include sport drinks, sodas without caffeine, juices, tea, or soup. If you also have heart or kidney disease, check with your provider before you drink extra fluids. ??? Eat asyou are able. You may not feel hungry, so a light diet is fine. Follow the treatment plan as advised by your healthcare provider. ??? Take medicines as instructed by your healthcare provider. If you were given an antibiotic medicine, take it until it's all gone, even if you are feeling better aftera few days. ??? Try to stay away from air pollution. If you live in an area with air pollution, track the Air Quality Index (AQI) reports. Plan your outdoor activities when air quality is OK. ?? Follow-up care Follow up with your healthcare provider in the next 2 to 3 days, or as advised. Following up with your provider as directed is important to make sure you are getting better. You may need more tests if you aren't getting better. Take steps to prevent future infections. Ask your healthcare provider what vaccines are right for you and when to get them. This may include the influenza (flu), COVID-19, and pneumococcal vaccines. ?? Call 911 Call 911if any of these occur: ??? Unable to speak or swallow ??? Lips or skin looks blue, purple, or robles ??? Feeling dizzy ??? Fainting ??? Unable to be awake or aware ??? Feeling of doom ??? Trouble breathing or wheezing ??? Shortness of breath gets worse or doesn't get better with treatment ???Rapid breathing (more than 25 breaths per minute) ??? Coughing up blood ??? Chest pain gets worse with breathing or doesn't get better with treatment ?? When to get medical advice Call your healthcare provider right away if any of these occur: ??? You don???t get better in the first 2 to 3 days of treatment ??? Fever of??100.4??F (38??C) or higher, or as directed by your healthcare provider ??? Shaking chills ??? Cough with phlegm that doesn't get better, or get worse ??? Shortness of breath with activities ??? Weakness, dizziness, or fainting that gets worse ??? Thirst ordry mouth that gets worse ??? Sinus pain, headache, or a stiff neck ??? Chest pain with breathing or coughing ??? Symptoms that get worse or don't get better ?? Last Reviewed Date: 2021 ?? 6721-6229 [employer]. All rights reserved. This information is not intended as a substitute for professional medical care. Always follow your healthcare professional's instructions. ?? Portable XR Chest Views * Erwin , NATALY S: TRANSCRIJAZMIN Huertas MD, Alejandro S: VERIFY Kaylyn Reyes MD: SIGN Event Display: Result: Authored Date: [id number] Chest Portable HX OF PRESENT ILLNESS: pt dx with covid 3 wks ago, feels unwell with cough and SOB. placed on 2 L NC O2 by EMS with O2 sat 95%; Reason: Cough; Clinical Question(s): Pneumonia COMPARISON: Multiple priors, most recent chest x-ray 03/21/2022, CTA chest 02/10/2021. FINDINGS: LINES AND TUBES: None. LUNGS AND PLEURA: Increase in right lower lobe opacity. Unchanged chronic elevation of the right hemidiaphragm. Stable fibrotic changes. Normal pulmonary vascularity. No pleural effusion. No pneumothorax. HEART, MEDIASTINUM AND MICHELLE: Heart is normal in size. Normal mediastinal and hilar contour. BONES AND SOFT TISSUES: No acute abnormality. IMPRESSION: Increase in right lower lobe opacity. Findings could represent pneumonia versus atelectasis. Stable fibrotic changes. I have personally reviewed the images and I agree with this report. WSN: [id number] Ordering Physician: Jaydon Bower Dictated By: Kaylyn Reyes MD Dictated Date/Time: 07/20/22 3:01 pm Reviewed By: Alejandro Huertas MD Signed By: Alejandro Huertas MD Signed Date/Time: 07/20/22 3:06 pm Transcribed By: YAIR Transcribed Date/Time: 07/20/22 2:39 pm Patient Care team information Care Team Personnel Name: Lawrence Hendrix Position: [facility] RN Supv Member Role: Primary Care Nurse Name: Rufino Lloyd RN Position: [facility] RN Member Role: Primary Care Nurse Name: Cristina Carpenter RN Position: [facility] RN Member Role: Primary Care Nurse Name: Rosette Noriega RN Position: [facility] SN RN Member Role: Primary Care Nurse Name: Mary Hidalgo RN Position: [facility] PCO RN Member Role: Primary Care Nurse Name: Sissy Duran RN Position: [facility] AMB Nurse Member Role: Primary Care Nurse Name: Rohit Zavaleta RN Position: [facility] RN Member Role: Primary Care Nurse Name: Erlinda Hartman NP Position: [facility] Associate Professional Member Role: Primary Care Nurse Address: Address: [address] [place] [id number] Name: Jong Suazo RN Position: [facility] RN Supv Member Role: Primary Care Nurse Name: Shante Solis RN Position: S RN Member Role: Primary Care Nurse Name: Joshua Prakash RN Position: S RN Member Role: Primary [...] Hector Perez RN Position: [facility] RN Member Role: Primary Care Nurse Name: Aleena Vizcaino RN Position: [facility] RN Member Role: Primary Care Nurse Name: Kacey Wilhelm RN Position: [facility] RN Member Role: Primary Care Nurse Name: Leslie Malloy RN Position: [facility] RN Member Role: Primary Care Nurse Name: Morena Easton RN Position: [facility] RN Member [...] Primary Care Nurse Name: Marilee Starkey Position: [facility] RN Member Role: Primary Care Nurse Name: Silvina Dodd RN Position: [facility] RN Member Role: Primary Care Nurse Name: Flaco Clifford DO Position: [facility] Renal MD Member Role: Lifetime Consulting Physician Address: Address: [address] [place] [address] [address] [facility] [place], [place] [address] Name: Marilee Richardson RN [facility] Colbert RN Position: [facility] RN Supv Member Role: Primary Care Nurse Name: Hallie Gambino RN Position: [facility] Onco RN Member Role: Primary Care Nurse Name: Maya Ambriz RN Position: [facility] RN Member Role: Primary Care Nurse Name: Bhavna Rendon LPN Position: [facility] RN Member Role: Primary Care Nurse Name: Luis Burton RN Position: [facility] RN Member Role: Primary Care Nurse Name: Jaki Bishop MD Position: [facility] Primary Care Physician Member Role: PCP Address: Address: [address] [place] [address] Name: Lucian Krause RN Position: [facility] RN Member Role: Primary Care Nurse Name: Katy Combs RN Position: [facility] RN Member Role: Primary Care Nurse Name: Leslie Ward RN Position: [facility] RN Member Role: Primary Care Nurse Name: Jacki Gomes RN Position: [facility] RN Member Role: Primary Care Nurse Name: Ximena Saab RN Position: [facility] RN Member Role: Primary Care Nurse Name: Mar Brothers RN Position: [facility] RN Member Role: Primary Care Nurse Name: Ivette Shankar RN Position: [facility] RN Supv Member Role: Primary [...] Hernandez RN Position: [facility] RN Supv Member Role: Primary Care Nurse Name: Perri Bryant RN Position: [facility] RN Member Role: Primary Care Nurse Name: Alba Toro RN Position: [facility] RN Member [...] Care Nurse Name: Tennille Mcgarry RN Position: [facility] Hospital Dean Of Student Services Member Role: Primary Care Nurse Name: Vicky Salazar RN Position: [facility] RN Member Role: Primary Care Nurse Name: Spencer Jameson RN Position: [facility] RN Member Role: Primary Care Nurse Name: Jalen Mullins Position: [facility] RN Member Role: Primary Care Nurse Name: LuzMaureen Rodriguez Attending Position: [facility] ED Medicine MD Name: Perri Burks RN Position: [facility] ED RN W/OE and Tasks Member Role: Patient Care Provider Name: Ignacia Herrera RN Position: [facility] ED RN W/OE and Tasks Name: oDnna [place] Position: [facility] ED OA Charge Member Role: ED Associate Care Team Related Persons Name: MARYANNE KELLER Address: [address] [place] [address] Name: MARYANNE KELLER Address: home [address] [place] [id number] Name: MARYANNE KELLER JR Address: home [address] [place] [address] Name: GEORGIA KELLER Address: [place] [address] Name: BALDEV POLANCO Address: [place] [address]
--- OUTSIDE RECORDS SUMMARY | 2023-02-09 22:42 | XMS_ITS | Continuity of Care Document ---
Author Name Unknown Organization [facility] Address [address] [place] [address]- Care Team Providers Care Spray Gunner Name Role Phone Jaki Bishop MD Primary Care Physician [phone] [facility]counter [facility] Date(s): 01/22/21 - 02/21/[address] [address] Allergies, Adverse Reactions, Alerts Substance Reaction Severity [...] to COVID vaccine 2Admin Note: VIS GIVEN [id number] 3Admin Note: VIS GIVEN 2008- 4Admin Note: [...] 02/06/21 19:54:00 EST, Route to Pharmacy Electronically, [facility] [id number], Partial fill upon patient request if the [...] mL, 5 Refills, Maintenance, 02/06/21 19:54:00 EST, [facility] [id number], Partial fill upon patient request if the prescription is for a schedule II opioid d... Start Date: 02/06/21 Stop Date: 08/05/21 Status: Ordered loratadine 10 mg oral tablet 10 mg, 1, tablet, By Mouth, Daily, # 30 tablet, Refills 0, Tot. Refills 0, Maintenance, 11/28/20 9:25:00 EDT, Route to Pharmacy Electronically, [facility], Partial fill upon patient [...] a day, # 60 tablet, 0 Refills, [facility], 167.64, cm, 11/27/20 22:30:00 EDT, Height, 98.5, kg, 10/22/20 17:50:00 EDT, Dry Weight Start Date: 01/08/21 Status: Ordered Nicoderm C-Q Clear 14 mg/24 hr transdermal film, extended release 1 patch, Topically, Daily, for 30 days, # 30 patch, 0 Refills, Acute 03/18/21 13:06:00 EST, 02/16/21 13:06:00 EST, Patch, [facility], Partial fill upon patient request if the prescription is for a schedule II opioid drug., 166.6, cm, ... Start Date: 02/16/21 Stop Date: 03/18/21 Status: Ordered Nicotine 2 mg gum = 2 mg, Chew, Every 2 hours, PRN Other, for 6 week(s), Nicotine Cravings, # 40 each, 1 Refills, Acute 05/11/21 13:06:00 EST, 02/16/21 13:06:00 EST, Gum, [facility], Partial fill upon patient [...] 0 Refills, Maintenance,02/06/21 19:56:00 EST, CR Capsule, [place], [place] - [id number], Partial fill upon patient request if the [...] 0 Refills, Maintenance, 11/28/20 9:27:00 EDT, Nasal M[place]le[place]an, [facility], Partial fill upon patient request if [...] 5 Refills, Maintenance, 02/06/21 19:56:00 EST, Tablet, [place], [place] - [id number], Partial fill upon patient request if the [...] Active H/O tubal ligation(Confirmed) Active 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
--- OUTSIDE RECORDS SUMMARY | 2023-02-09 22:42 | XMS_ITS | Continuity of Care Document ---
Author Name Unknown Organization [facility] Address [address] [place] [address]- Care Team Providers Care Truck Dispatcher Name Role Phone Jaki Bishop MD Primary Care Physician [phone] Encounter [facility] Date(s): 08/26/22 - 09/25/[address] [address] Allergies, Adverse Reactions, Alerts Substance [...] to COVID vaccine 2Admin Note: VIS GIVEN [id number] 3Admin Note: VIS GIVEN 2008- 4Admin Note: vis 5Admin Note: vis 02/06/08 Medications albuterol 90 mcg/inh inhalation powder 2 puffs, Inhalation, Every 4 hours, PRN as needed, PRN Wheezing, # 1 each, 1 Refills, Maintenance, 06/28/22 14:49:00 EDT, Powder, [facility] [id number], Partial fill upon patient request if the [...] EDT, Route to Pharmacy Electronically, [facility] [id number], Partialfill upon patient request if the prescription is fo... Start Date: 07/16/22 Status: Ordered benztropine 1 mg oral tablet 0.5 mg, 0.5, tablet, By Mouth, 2 times a day, # 30 tablet, Refills 3, Tot. Refills 3, Maintenance, 09/17/22 1:51:00 EDT, Route to Pharmacy Electronically, [facility] [id number], Partial fill upon patient request if the prescri... Start Date: 09/17/22 Stop Date: 01/15/23 Status: Ordered carvedilol 3.125 mg oral tablet 3.125 mg, 1, tablet, By Mouth, 2 times a day, # 60 tablet, Refills 2, Tot. Refills 2, Maintenance, 09/17/22 1:50:00 EDT, Route to Pharmacy Electronically, [facility] [id number], Partial fill upon patient request if the prescri... Start Date: 09/17/22 Status: Ordered cloNIDine 0.1 mg oral tablet 0.1 mg, 1, tablet, By Mouth, Daily at bedtime, # 30 tablet, Refills 2, Tot. Refills 2, Maintenance,09/17/22 1:50:00 EDT, Route to Pharmacy Electronically, [facility] [id number], Partial fill upon patient request if the prescr... Start Date: 09/17/22 Status: Ordered Creon 12,000 units oral delayed release capsule 1 capsule, By Mouth, 3 times a day, # 90 capsule, 3 Refills, Maintenance, 09/17/22 1:49:00 EDT, EC Capsule, [facility] [id number], Partial fill upon patient request if the prescription is for a schedule II opioid drug., 160, c... Start Date: 09/17/22 Status: Ordered folic acid 1 mg oral tablet 1, tablet, By Mouth, Daily, # 30 tablet, Refills 1, Tot. Refills 1, Maintenance, 09/17/22 1:48:00 EDT, Route to Pharmacy Electronically, [facility] [id number], 160, cm, 07/26/22 12:51:00 EDT, Height, 89.2, [...] 09/17/22 1:50:00 EDT, Route to Pharmacy Electronically, [facility] [id number], Partialfill upon patient request if the prescription is fo... Start Date: 09/17/22 Status: Ordered lactulose 10 gm/15 ml oral syrup 30 mL, By Mouth, 2 times a day, # 1,200 mL, 5 Refills, Maintenance, 09/17/22 1:49:00 EDT, [facility] [id number], 15, 30 mL By Mouth 2 times a day, 160, cm, 07/26/22 12:51:00 EDT, Height, 89.2, kg, 07/21/22 3:29:00 EDT, Dry Weight Start Date: 09/17/22 Status: Ordered Lantus Solostar Pen 100 units/mL subcutaneous solution = 6 units, Subcutaneous Injection, Daily in AM, # 10 mL, 2 Refills, Maintenance, 04/29/22 14:34:00 EST, Solution, [facility], [facility] [id number], Partial fill upon patient request if the prescription is for a schedule II opioid drug.,... Start Date: 04/29/22 Status: Ordered multivitamin Multiple Vitamins oral tablet 1 tablet, By Mouth, Daily, # 90 tablet, 1 Refills, Maintenance, 04/02/22 16:44:00 EST, Tablet, [facility] [id number], Partial fill upon patient request if the [...] 04/29/22 14:39:00 EST, Route to Pharmacy Electronically, [facility] [id number], Partial fill upon patient request if the prescription... Start Date: 04/29/22 Stop Date: 08/27/22 Status: Ordered risperiDONE 3 mg oral tablet 3 mg, 1, tablet, By Mouth, Daily at bedtime, # 30 tablet, Refills 3, Tot. Refills 3, Maintenance, 04/29/22 14:39:00 EST, Route to Pharmacy Electronically, [facility] [id number], Partial fill upon patient request if the prescri... Start Date: 04/29/22 Status: Ordered thiamine 100 mg oral tablet 100 mg, 1, tablet, By Mouth, Daily, for 30 days, # 30 tablet, Refills 0, Tot. Refills 0, Acute 10/17/22 1:48:00 EDT, 09/17/22 1:48:00 EDT, Route to Pharmacy Electronically, [facility] [place] [id number], Partial fill upon patient requ... Start Date: 09/17/22 Stop Date: 10/17/22 Status: Ordered tiotropium 2.5 mcg/inh inhalation aerosol 2 puffs, Inhalation, Daily, # 1 each, 5 Refills, Maintenance, 09/17/22 1:52:00 EDT, [facility] [place] [place] [facility] [id number], Partial fill upon patient request if the prescription is for a schedule II opioid drug., 160, cm, 07/26/22 12:... Start Date: 09/17/22 Stop Date: 03/16/23 Status: Ordered traZODone 50 mg oral tablet 50 mg, 1, tablet, By Mouth, Daily at bedtime, # 30 tablet, Refills 2, Tot. Refills 2, Maintenance, 09/17/22 1:47:00 EDT, Route to Pharmacy Electronically, [place], [place] - [id number], Partial fill upon patient request if the [...] Care Team Personnel Name: Lawrence Hendrix Position: [facility] RN Supv Member Role: Primary Care Nurse Name: Rufino Lloyd RN Position: [facility] RN Member Role: Primary Care Nurse Name: Cristina Carpenter RN Position: [facility] RN Member Role: Primary Care Nurse Name: Rosette Noriega RN Position: [facility] SN RN Member Role: Primary Care Nurse Name: Mary Hidalgo RN Position: [facility] AMB Nurse Member Role: Primary Care Nurse Name: Sissy Duran RN Position: [facility] AMB Nurse Member Role: Primary Care Nurse Name: Rohit Zavaleta RN Position: [facility] RN Member Role: Primary Care Nurse Name: Erlinda Hartman NP Position: [facility] Associate Professional Member Role: Primary Care Nurse Address: Address: [address] [place] [id number] Name: Shante Solis RN Position: [facility] RN Member Role: Primary Care Nurse Name: Joshua Prakash RN Position: [facility] RN Member Role: Primary Care Nurse Name: Bettie Vanegas RN Position: [facility] SN RN Member Role: Primary Care Nurse Name: Jay Marroquin RN Position: [facility] RN Member Role: Primary Care Nurse Name: Adrianna Church RN Position: [facility] RN Member Role: Primary Care Nurse Name: Sue Purdy RN Position: [facility] RN Member Role: Primary Care Nurse Name: Hector Perez RN Position: [facility] RN Member Role: Primary Care Nurse Name: Aleena Vizcaino RN Position: [facility] RN Member Role: Primary Care Nurse Name: Kacey Wilhelm RN Position: [facility] RN Member Role: Primary Care Nurse Name: Leslie Malloy RN Position: [facility] RN Member Role: Primary Care Nurse Name: Yesenia Hu LPN Position: [facility] RN Member Role: Primary Care Nurse Name: Joaquina Herrera RN Position: [facility] RN Member Role: Primary Care Nurse Name: Diego Bell RN Position: [facility] RN Member Role: Primary Care Nurse Name: Ese Grey Position: [facility] RN Member Role: Primary Care Nurse Name: Chela Najera RN Position: [facility] RN Member Role: Primary Care Nurse Name: Tootie Gonzalez RN Position: [facility] RN Member Role: Primary Care Nurse Name: Nancy Monte RN Position: [facility] RN Member Role: Primary Care Nurse Name: Marilee Starkey Position: S RN Member Role: Primary Care Nurse Name: Silvina Dodd RN Position: S RN Member Role: Primary Care Nurse Name: Flaco Clifford DO Position: [facility] Renal MD Member Role: Lifetime Consulting Physician Address: Address: [address] [place], [place] [address] [place] [address]- Name: Marilee Richardson RN Position: [facility] RN Member Role: Primary Care Nurse Name: Rufino Johnson RN Position: [facility] RN Member Role: Primary Care Nurse Name: Jovita Camargo RN Position: [facility] RN Member Role: Primary Care Nurse Name: Ju Zhu Position: [facility] RN Member Role: Primary Care Nurse Name: Ester Palomares Position: [facility] RN Member Role: Primary Care Nurse Name: Emma Colbert RN Position: [facility] RN Supv Member Role: Primary Care Nurse Name: Hallie Gambino RN Position: [facility] Onco RN Member Role: Primary Care Nurse Name: Maya Ambriz RN Position: [facility] RN Member Role: Primary Care Nurse Name: Bhavna Rendon LPN Position: [facility] RN Member Role: Primary Care Nurse Name: Luis Burton RN Position: [facility] RN Member Role: Primary Care Nurse Name: Jaki Bishop MD Position: [facility] Physician - Primary Care Member Role: PCP Address: Address: [address] [place] [address]- Name: Lucian Krause RN Position: [facility] RN Member Role: Primary Care Nurse Name: Isaiah Combs RN Position: [facility] RN Member Role: Primary Care Nurse Name: Leslie Ward RN Position: [facility] RN Member Role: Primary Care Nurse Name: Jacki Gomes RN Position: [facility] RN Member Role: Primary Care Nurse Name: Ximena Saab RN Position: [facility] RN Member Role: Primary Care Nurse Name: Mar Brothers RN Position: [facility] RN Member Role: Primary Care Nurse Name: Ivette Shankar RN Position: [facility] RN Supv Member Role: Primary Care Nurse Name: Laura Mary RN Position: [facility] SN RN Member Role: Primary Care Nurse Name: Mary Guillen RN Position: [facility] RN Member Role: Primary Care Nurse Name: Octavio Box RN Position: [facility] RN Member Role: Primary Care Nurse Name: Nazia Tapia RN Position: [facility] RN Member Role: Primary Care Nurse Name: Pat Jackson RN Position: [facility] RN Member Role: Primary Care Nurse Name: Caren Hernandez RN Position: [facility] RN Supv Member Role: Primary Care Nurse Name: Perri Bryant RN Position: [facility] RN Member Role: Primary Care Nurse Name: Alba Toro RN Position: [facility] RN Member Role: Primary Care Nurse Name: Nely Wong RN Position: [facility] RN Member Role: Primary Care Nurse Name: Erica Brandon RN Position: [facility] RN Member Role: Primary Care Nurse Name: Adrianna Gonzalez RN Position: [facility] RN Member Role: Primary Care Nurse Name: Annmarie Feldman RN Position: [facility] PCO w/OE and EZ Script Member Role: Primary Care Nurse Name: Chinyere Espinoza RN Position: [facility] RN Member Role: Primary Care Nurse Name: Teresita Diallo RN Position: [facility] RN Member Role: Primary Care Nurse Name: Tennille Mcgarry RN Position: [facility] Hospital Diving Judge Member Role: Primary Care Nurse Name: Vicky Salazar RN Position: [facility] RN Member Role: Primary Care Nurse Name: Spencer Jameson RN Position: [facility] RN Member Role: Primary Care Nurse Name: Jalen Mullins Position: [facility] RN Member Role: Primary Care Nurse Care Team Related Persons Name: MARYANNE KELLER Address: home [address] [place] [address] Name: MARYANNE KELLER Address: home [address] [place] [address] Name: MARYANNE KELLER JR Address: home [address] [place] [address] Name: GEORGIA KELLER Address: [place] [address] Name: BALDEV POLANCO Address: [place] [address]
--- OUTSIDE RECORDS SUMMARY | 2023-02-09 22:42 | XMS_ITS | Continuity of Care Document ---
Author Name Unknown Organization [facility] Address [address] [place] [address]- Care Team Providers Care Brick Yard Hand Name Role Phone Jaki Bishop MD Primary Care Physician [phone] Encounter [facility] Date(s): 06/14/19 - 07/15/[address] [address]- [facility] Attending Physician: Jaki Bishop MD [...] Given Patient Refuses 1Admin Note: VIS GIVEN [id number] 2Admin Note: VIS GIVEN 2008-12 3Admin Note: vis 4Admin Note: vis 02/06/08 Medications acetaminophen 325 mg oral tablet 325 mg, 1, tablet, By Mouth, 4 times a day, PRN, No more than 4 tablets per day, # 60 tablet, Refills 11, Tot. Refills 11, Acute 10/05/19 12:00:00 EDT, for pain, 10/03/18 14:57:21 EDT, Route to Pharmacy Electronically, [id number]... Start Date: 10/03/18 Stop Date: 10/05/19 Status: [...] 05/02/19 13:58:00 EST, Route to Pharmacy Electronically, [facility] [place], [place] -, 166, cm, 04/30/19 10:41:00 EST, Height, 91.8, kg, 02/23/19 17... Start Date: 05/02/19 Status: Ordered docusate sodium 100 mg oral capsule 100 mg, 1, capsule, By Mouth, 2 times a day, # 60 capsule, Refills 11, Tot. Refills 11, Maintenance, 02/21/19 14:45:44 EST, Route to Pharmacy Electronically, [id number], [facility], [place] -, 168, cm, 02/14/19... Start Date: 02/21/19 Stop Date: 02/16/20 Status: Ordered Ensure (Vanilla Flavor) Ensure (Vanilla Flavor), See Instructions, # 60 each, Refills 11, Tot. Refills 11, Maintenance, Drink 1 can BID. Diagnosis: Chronic Pancreatitis, Cirrhosis. ICD10 K86.1, K74.6, Fax to Anna( [facility], #[phone]), 05/24/19 15:01:00 EST, Compound Start Date: 05/24/19 [...] Maintenance,03/27/19 16:10:00 EST, Route to Pharmacy Electronically, [facility][id number], 166, cm, 03/27/19 15:26:00 EST, Height, 91.8, kg, 02/23/19 17:03:... Start Date: 03/27/19 Stop Date: 10/23/19 Status: Ordered Humalog Kwik Pen 100 units/mL subcutaneous injection See Instructions, 4 Units for bood sugar above 120 mg/dl and then add 2 Units for every 50 mg/dl rise above 120. Three times a day before meals., # 15 mL, 6 Refills, Maintenance, 05/04/19 12:52:00 EST, [place], [place] - , Humalog ins... Start Date: 05/04/19 Status: Ordered Lantus Solostar Pen 100 units/mL subcutaneous solution See Instructions, This is an increase in dose. 28u QAM & 44 units QHS. Subcutaneous Injection Daily 30 days, # 5 each, 6 Refills, Maintenance, 07/12/19 9:59:00 EDT, [place], [place] -, 166, cm, 05/28/19 11:08:00 EDT, Height, 91.8, kg,... Start Date: 07/12/19 Status: Ordered MiraLax oral powder for reconstitution = 17 Gm, By Mouth, 2 times a day, PRN Other, dissolve in water before taking. goal 2-3 bowel movements daily, # 527 Gm, 0 Refills, Maintenance, 03/27/19 17:13:00 EST, REC Powder, [facility][id number], 17 Gm By Mouth 2 times a [...] TABLET BY MOUTH DAILY FOR STOMACH ACID, [facility] #[id number] Start Date: 11/28/18 Status: Ordered Pen [place], 31 G x 8 mm BD Ultra [...] and fax results to: Attn Dr. Mariano Anrdade, Outpatient Psychiatry, at [phone]., See Instructions, # 1 application, Refills 0, [...] 04/20/19 10:38:00 EST, Route to Pharmacy Electronically, [facility] #[id number], 166, cm, 04/20/19 10:17:00 EST, Height, 91.8, kg, 02/23/19 17:03:00 EST, . Start Date: 04/20/19 Status: Ordered torsemide 20 mg oral tablet 2 tablet = 40 mg, By Mouth, Daily, # 180 tablet, 11 Refills, Maintenance, 04/20/19 10:38:00 EST, Tablet, [facility] #[id number], Replaces lower dose, 166, cm, 04/20/19 10:17:00 [...] Active H/O tubal ligation(Confirmed) Active BHN/ CP Webmethods Consultant/Janet salvador [facility] [phone](Confirmed) Active History of cholecystectomy(Confirmed) Active Hypertension(Confirmed) Active [...]
--- OUTSIDE RECORDS SUMMARY | 2023-02-09 22:43 | XMS_ITS | Continuity of Care Document ---
Author Name Unknown Organization [facility] Address [address] [place] [address]- Care Team Providers Care Milling Machine Operator Name Role Phone Dario HAYDEN, Jaki Primary Care Physician [phone] Encounter [facility] Date(s): 01/29/20 - 02/28/[address] [address]- Allergies, Adverse Reactions, Alerts Substance Reaction Severity [...] Given Permanently Refused 1Admin Note: VIS GIVEN [id number] 2Admin Note: VIS GIVEN 2008-12 3Admin Note: vis 4Admin Note: vis 02/06/08 Medications acetaminophen 325 mg oral tablet 1, tablet, By Mouth, 4 times a day, PRN, no MORE THAN 4 TABLETS PER DAY., # 60 tablet, Refills 1, Tot. Refills 0, Acute, NEEDED, 11/12/19 14:29:00 EDT, Route to Pharmacy Electronically, [facility], 168, cm, 11/12/19 9:05:00 EDT, [...] 02/12/20 15:48:00 EST, Route to Pharmacy Electronically, [facility] [place], [place] - [id number], Partial fill upon patient request, 168, cm, [...] Replace Required Details, Route to Pharmacy Electronically, [place], [place] - [id number], 168, cm, 12/17/19... Start Date: 02/01/20 Status: [...] 1 Refills, Maintenance, 08/07/19 14:23:00 EDT, Tablet, [place], [place] -, 1 tablet By Mouth Daily, [...] 5 Refills, Maintenance, 08/27/19 7:36:00 EDT, Tablet, [facility] [place], [place] -, this is an increased, 1 [...] Active H/O tubal ligation(Confirmed) Active BHN/BH CP Software Tools Engineer/Janet salvador [facility] [phone](Confirmed) Active History of cholecystectomy(Confirmed) Active Hypertension(Confirmed) Active [...]
--- OUTSIDE RECORDS SUMMARY | 2023-02-09 22:43 | XMS_ITS | Continuity of Care Document ---
Author Name Unknown Organization [facility] Address [address] [place] [address]- Care Team Providers Care Accounts Payable Bookkeeper Name Role Phone Jaki Bishop MD Primary Care Physician [facility] Date[facility]s): 06/19/20 - 07/19/[address] [address]- Allergies, Adverse Reactions, Alerts Substance Reaction Severity [...] Given Permanently Refused 1Admin Note: VIS GIVEN [id number] 2Admin Note: VIS GIVEN 2008-12 3Admin Note: vis 4Admin Note: vis 02/06/08 Medications acetaminophen 325 mg oral tablet 1, tablet, By Mouth, 4 times a day, PRN, not to exceed 4 TABLETS PER DAY. Not to exceed 2000 mg/day. PRN Pain, # 60 tablet, Refills 0, Tot. Refills 0, Maintenance, NEEDED, 06/19/20 12:38:00 EDT, Route to Pharmacy Electronically, [facility] -... Start Date: 06/19/20 Status: Ordered [...] 0 Refills, Maintenance, 04/16/20 11:06:00 EST, Tablet, [facility] [id number], Partial fill upon patient request if the prescription is for a schedule II opioid drug., 168,... Start Date: 04/16/20 Status: Ordered clozapine 50 mg oral tablet 3 tablet = 150 mg, By Mouth, Daily at bedtime, # 90 tablet, 0 Refills, Maintenance, 04/16/20 11:06:00 EST, Tablet, [facility] [id number], Partial fill upon patient request ifthe prescription is for a schedule II opioid drug.,... Start Date: 04/16/20 Status: Ordered Comfort EZ Pen [place] 31 gauge x 5/16 Comfort EZ Pen [place] 31 gauge x 5/16 , See Instructions, [...] 05/26/20 14:41:00 EST, Route to Pharmacy Electronically, [facility] [phone], Partial fill upon patient request if the prescr... Start Date: 05/26/20 Stop Date: 11/22/20 Status: Ordered docusate sodium 100 mg oral capsule = 100 mg, By Mouth, 2 times a day, PRN Constipation., # 60 capsule, 3 Refills, Maintenance, 02/29/20 15:13:00 EST, Capsule, [facility] [id number], Partial fill upon patient request if the [...] Maintenance,05/28/20 13:46:00 EST, Route to Pharmacy Electronically, [facility] [id number], Partial fill upon patient request if the presc... Start Date: 05/28/20 Status: Ordered Glucerna (Vanilla Flavor) Glucerna (Vanilla Flavor), See Instructions, # 60 each, Refills 11, Tot. Refills 11, Maintenance, Drink 1 can BID. 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 [facility]ax to [facility] #[phone]), 06/06/20 19... Start Date: 06/06/20 Status: Ordered [...] 1 Refills, Maintenance, 04/16/20 11:07:00 EST, [place], [place] - [phone],... Start Date: 04/16/20 Status: Ordered lactulose 10 gm/15 ml oral syrup 30 mL, By Mouth, 2 times a day, # 581 mL, 3 Refills, Maintenance, 06/27/20 11:11:00 EDT, [place], [place] - [id number], 10, 30 mL By Mouth 2 times [...] Details, Route to Pharmacy Electronically, [facility], [place] - [id number], 168, cm, 04/16/20... Start Date: 05/01/20 Status: Ordered multivitamin Multiple Vitamins oral tablet 1 tablet, By Mouth, Daily, # 90 tablet, 1 Refills, Maintenance, 05/26/20 13:28:00 EST, Tablet, [facility], [place] - [id number], 1 tablet By Mouth Daily, 168, cm, [...] Maintenance, 04/16/20 11:08:00 EST, Gum, [facility], [place] - [id number], Partial fill upon patient request if the [...] 5 Refills, Maintenance, 07/14/20 16:30:00 EDT, Tablet, [place], [place] - [id number], this is an increased, 1 tablet By Mouth 2 times a day,x30 days, 168, cm, 04/16/20 8:30:00 EST, Heigh... Start Date: 07/14/20 Stop Date: 01/10/21 Status: Ordered torsemide 20 mg oral tablet 1 tablet = 20 mg, By Mouth, Daily, # 30 tablet, 1 Refills, Maintenance, 04/16/20 11:09:00 EST, Tablet, [place], [place] - [id number], Partial fill upon patient request if the prescription is for a schedule II opioid drug., 168, cm, 01... Start Date: 04/16/20 Stop Date: 04/11/21 Status: Ordered Zenpep 10,000 units-32,000 units-42,000 units oral delayed release capsule 1 capsule, By Mouth, 3 times a day, # 90 capsule, 0 Refills, Maintenance, 04/16/20 11:09:00 EST, [facility] [place], [place] - [id number], 1 capsule By Mouth 3 times a [...] Active H/O tubal ligation(Confirmed) Active BHN/ CP University Lecturer/Janet salvador [facility] [phone](Confirmed) Active History of cholecystectomy(Confirmed) Active Hypertension(Confirmed) Active [...]
--- OUTSIDE RECORDS SUMMARY | 2023-02-09 22:43 | XMS_ITS | Continuity of Care Document ---
Author Name Unknown Organization [facility] Address [address] [place] [address]- Care Team Providers Care Demand Planning Analyst Name Role Phone Jaki Bishop MD Primary Care Physician [facility]counter [facility] Date[facility]s): 12/05/20 - 01/04/[address] [address]- Allergies, Adverse Reactions, Alerts Substance Reaction Severity [...] to COVID vaccine 2Admin Note: VIS GIVEN [id number] 3Admin Note: VIS GIVEN 2008-12 4Admin Note: [...] 0 Refills, Maintenance, 11/28/20 9:22:00 EDT, Solution, [facility], Partial fill upon patient request if the prescription is for a schedule II opioid drug., 167.64, cm, 11/27... Start Date: 11/28/20 Status: Ordered benztropine 0.5 mg oral tablet 0.5 mg, 1, tablet, By Mouth, 2 times a day, # 60 tablet, Refills 0, Tot. Refills 0, Maintenance, 11/28/20 9:27:00 EDT, Route to Pharmacy Electronically, [facility], Partial fill upon patient request if the prescription is for a schedule... Start Date: 11/28/20 Status: Ordered Cane See Instructions, # 1 each, Maintenance, [id number], includes canes of all materials, adjustable orfixed, with tip, 11/28/20 9:32:00 EDT, Supply, 167.64, cm, 11/27/20 22:30:00 EDT, Height, 98.5, kg,10/22/20 17:50:00 EDT, Dry Weight Start Date: 11/28/20 Status: Ordered clozapine 100 mg oral tablet 1 tablet = 100 mg, By Mouth, 2 times a day, # 60 tablet, 0 Refills, Maintenance, 11/28/20 9:20:00 EDT, Tablet, [facility], Partial fill upon patient request if the prescription is for aschedule II opioid drug., 167.64, cm, 11/27/20 22:3... Start Date: 11/28/20 Status: Ordered Coreg 12.5 mg oral tablet 12.5 mg, 1, tablet, By Mouth, 2 times a day, # 60 tablet, Refills 0, Tot. Refills 0, Maintenance, 11/28/20 9:20:00 EDT, Route to Pharmacy Electronically, [facility], Partial fill upon [...] 01/27/21 9:24:00 EST, 11/28/20 9:24:00 EDT, Syrup, [facility], Partial fill upon patient request if theprescription is for a schedule II opioid drug., 30... Start Date: 11/28/20 Stop Date: 01/27/21 Status: Ordered loratadine 10 mg oral tablet 10 mg, 1, tablet, By Mouth, Daily, # 30 tablet, Refills 0, Tot. Refills 0, Maintenance, 11/28/20 9:25:00 EDT, Route to Pharmacy Electronically, [facility], Partial fill upon patient request if [...] 02/20/21 9:25:00 EST, 11/28/20 9:25:00 EDT, Gum, [facility], Partial fill upon patient request if the prescription is for a schedule II... Start Date: 11/28/20 Stop Date: 02/20/21 Status: Ordered pancrelipase 10,000 units-32,000 units-42,000 units oral delayed release capsule 1 capsule, By Mouth, 3 times a day, with each meal and snack, # 90 capsule, 0 Refills, Maintenance,11/28/20 9:26:00 EDT, CR Capsule, [facility], Partial fill upon [...] 0 Refills, Maintenance, 11/28/20 9:27:00 EDT, Nasal Dietrich, [facility], Partial fill upon patient request if the prescription is for a schedule II opioid drug., 2 sprays... Start Date: 11/28/20 Stop Date: 12/28/20 Status: Ordered torsemide 20 mg oral tablet 1 tablet = 20 mg, By Mouth, Daily, # 30 tablet, 0 Refills, Maintenance, 11/28/20 9:27:00 EDT, Tablet, [facility], Partial fill upon [...] Active H/O tubal ligation(Confirmed) Active BHN/ CP Quality Process Lead/Janet Pandey [phone](Confirmed) Active History of cholecystectomy(Confirmed) Active Hypertension(Confirmed) Active [...]
--- OUTSIDE RECORDS SUMMARY | 2023-02-09 22:43 | XMS_ITS | Continuity of Care Document ---
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 Name Role Phone Dario HAYDEN, Jaki Primary Care Physician [facility] Date[facility]): 09/26/20 - 10/22/[address] [id number] Discharge Disposition: Transfer to [facility] Attending Physician: Darius Rod MD, [place] Admitting Physician: Zane Sharpe MD Referring Physician: Not on Staff, Referring [...] to COVID vaccine 2Admin Note: VIS GIVEN [id number] 3Admin Note: VIS GIVEN 2008- 4Admin Note: vis 5Admin Note: vis 02/06/08 Medications acetaminophen 325 mg oral tablet 650 mg, By Mouth, Every 6 hours, PRN, /Headache, Refills 0, Maintenance, Pain , Mild, 09/26/20 21:44:00 EDT, Partial fill upon patient request if the prescription is for a schedule II opioid drug. Start Date: 09/26/20 Status: Ordered clozapine 25 mg oral tablet 3 tablet = 75 mg, By Mouth, Daily at bedtime, 0 Refills, Maintenance, 10/22/20 16:53:00 EDT, Tablet, Partial fill upon patient request if the prescription is for a schedule II opioid drug. Start Date: 10/22/20 Status: Ordered Coreg 12.5 mg oral tablet 12.5 mg, Tablet, By Mouth, Hold for: BP <90/60, 10/20/20 21:00:00 EDT Start Date: 10/20/20 Stop Date: 10/20/20 Status: Completed Coreg 12.5 mg oral tablet 12.5 mg, 1, tablet, By Mouth, 2 times a day, Refills 0, Maintenance, 09/26/20 21:44:00 EDT, Partialfill upon patient request if the prescription is for a schedule II opioid drug. Start Date: 09/26/20 Status: Ordered gabapentin 100 mg oral capsule 200 mg, 2, capsule, By Mouth, Daily at bedtime, Refills 0, Maintenance, 10/03/20 15:01:00 EDT, Partial fill upon patient request if the prescription is for a schedule II opioid drug. Start Date: 10/03/20 Status: Ordered gabapentin 100 mg oral capsule 200 mg, Capsule, By Mouth, Hold for: lethargy, 10/20/20 21:00:00 EDT Start Date: 10/20/20 Stop Date: 10/20/20 Status: Completed hydrOXYzine pamoate 25 mg oral capsule = 25 mg, By Mouth, Every 6 hours, PRN Anxiety, 0 Refills, Maintenance, 09/26/20 21:45:00 EDT, Capsule, Partial fill upon patient request if the prescription is for a schedule II opioid drug. Start Date: 09/26/20 Status: Ordered Insulin Glargine Inj 0.26 mL = 26 units, Subcutaneous Injection, Daily at bedtime, 0 Refills, Maintenance, 09/26/20 21:45:00 EDT, Injection, Partial fill upon patient request if the prescription is for a schedule II opioid drug. Start Date: 09/26/20 Status: Ordered Insulin Lispro 3-11 units, Subcutaneous Injection, 3 times a day before meals, << Sliding Scale Comments >> 120 - 169 3 units Call if less than 100 170 - 219 5 units 220 - 269 7 units 270 - 319 9 units 320 - 369 11 units Call if greater than 400 <... Start Date: 09/26/20 Status: Ordered lactulose 10 gm/15 ml oral syrup 30 mL = 20 Gm, By Mouth, 2 times a day, 0 Refills, Maintenance, 09/26/20 21:45:00 EDT, Syrup, Partial fill upon patient request if the prescription is for a schedule II opioid drug. Start Date: 09/26/20 Status: Ordered loratadine 10 mg oral tablet 10 mg, 1, tablet, By Mouth, Daily, Refills 0, Maintenance, 09/26/20 21:45:00 EDT, Partial fill uponpatient request if the prescription is for a schedule II opioid drug. Start Date: 09/26/20 Status: Ordered Maalox Plus Liquid 30 mL, By Mouth, Every 8 hours, PRN Indigestion, 0 Refills, Maintenance, 08/28/20 16:23:00 EDT, Suspension, Partial fill upon patient request if the prescription is for a schedule II opioid drug. Start Date: 08/28/20 Status: Ordered magnesium oxide 400 mg oral tablet 1 tablet = 400 mg, By Mouth, 2 times a day, 0 Refills, Maintenance, 09/26/20 21:45:00 EDT, Tablet, Partial fill upon patient request if the prescription is for a schedule II opioid drug. Start Date: 09/26/20 Status: Ordered Nicotine = 21 mg, Topically, Daily, 0 Refills, Maintenance, 09/26/20 21:45:00 EDT, Patch, Partial fill upon patient request if the prescription is for a schedule II opioid drug. Start Date: 09/26/20 Status: Ordered nicotine 4 mg oral transmucosal gum = 4 mg, Chew, Every hour, PRN Other, Nicotine Withdrawal Symptoms (NOT to exceed 24 pieces per day), 0 Refills, Maintenance, 09/26/20 21:45:00 EDT, Gum, Partial fill upon patient request if the prescription is for a schedule II opioid drug. Start Date: 09/26/20 Status: Ordered Pancrelipase Capsule 1 capsule = 10,000 units, By Mouth, 3 times a day, 0 Refills, Maintenance, 09/26/20 21:45:00 EDT, Capsule, Partial fill upon patient request if the prescription is for a schedule II opioid drug. Start Date: 09/26/20 Status: Ordered pantoprazole 40 mg oral delayed release tablet = 40 mg, By Mouth, Daily, 0 Refills, Maintenance, 09/26/20 21:45:00 EDT, EC Tablet Start Date: 09/26/20 Status: Ordered Remove Patch 1 each, Topically, Daily, 0 Refills, Maintenance, Patch Start Date: 09/26/20 Status: Ordered Salinex [place] 1 sprays, Naris, Right, 4 times a day, PRN Other, dryness, 0 Refills, Maintenance, 09/26/20 21:46:00 EDT, Nasal [place], Partial fill upon patient request if the prescription is for a schedule II opioid drug. Start Date: 09/26/20 Status: Ordered torsemide 20 mg oral tablet 1 tablet = 20 mg, By Mouth, Daily, 0 Refills, Maintenance, 09/26/20 21:45:00 EDT, Tablet, Partial fill upon patient request if the prescription is for a schedule II opioid drug. 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 Vanegasfrancis [phone](Confirmed) Active History of cholecystectomy(Confirmed) Active Hypertension(Confirmed) Active Incisional hernia(Confirmed) Active Nicotine dependence(Confirmed) Active Obesity (BMI 30.0-34.9)(Confirmed) Active Pulmonary HTN, Severe(Confirmed) Active Steatohepatitis (w/Stage III Fibrosis, Liver Biopsy 05/2012)(Confirmed) Active Heart failure with reduced e jection fraction(Confirmed) Active Results Orders for Microbiology Reports Name Date Blood Culture 10/08/20 Blood Culture #2 10/08/20 Urine Culture 10/08/20 Microbiology Reports TEST:Blood Culture STATUS:Auth (Verified) BODY SITE: SOURCE:Blood COLLECTED DATE/TIME:10/08/20 4:35 PM Blood Culture SPECIMEN DESCRIPTION : BLOOD RAC SPECIAL REQUESTS : NONE CULTURE : NO GROWTH 5 DAYS. REPORT STATUS : FINAL 10/13/2020 TEST:Blood Culture, Second Order STATUS:Auth (Verified) BODY SITE: SOURCE:Blood COLLECTED DATE/TIME:10/08/20 4:35 PM Blood Culture, Second Order SPECIMEN DESCRIPTION : BLOOD RT HAND SPECIAL REQUESTS : NONE CULTURE : NO GROWTH 5 DAYS. REPORT STATUS : FINAL 10/13/2020 TEST:Urine Culture STATUS:Auth (Verified) BODY SITE: SOURCE:URINE COLLECTED DATE/TIME:10/08/20 12:46 PM Urine Culture SPECIMEN DESCRIPTION : URINE STRAIGHT CATH. SPECIAL REQUESTS : NONE CULTURE : >100,000 COL/ML ESCHERICHIA COLI REPORT STATUS : FINAL 10/10/2020 ORGANISM >100,000 COL/ML ESCHERICHIA COLI METHOD MIN. INHIB. CONC. (MCG/ML) AMPICILLIN RESISTANT AMPICILLIN/SULBACTAM INTERMEDIATE AMOXICILLIN/CLAVULAN SUSCEPTIBLE CEFAZOLIN SUSCEPTIBLE CEFEPIME SUSCEPTIBLE CEFTRIAXONE SUSCEPTIBLE CIPROFLOXACIN SUSCEPTIBLE ERTAPENEM SUSCEPTIBLE GENTAMICIN SUSCEPTIBLE LEVOFLOXACIN SUSCEPTIBLE MEROPENEM SUSCEPTIBLE NITROFURANTOIN SUSCEPTIBLE PIPERACILLIN/TAZOBAC SUSCEPTIBLE TRIMETH/SULFAMETHOX RESISTANT TETRACYCLINE RESISTANT Radiology Reports * Exam Date Time Procedure Performing Provider Status 10/09/20 10:49 AM Chest Portable Sophie Whittington; Auth (Verified) Notes: (Chest Portable) Reason For Exam: Cough RESULT: Chest Portable Chest Portable INDICATION: Lymphocytosis. Hypoxic respiratory failure and heart failure. COMPARISON: Several between 10/07/2020 and 12/04/2019 FINDINGS: LINES AND TUBES: None. LUNGS AND PLEURA: Low lung volumes. New small focus of opacity in the inferior aspect of the right upper lobe. Unchanged mild right basilar left lateral midlung opacity. No major consolidation. No convincing evidence of pulmonary edema. No pleural effusion. No pneumothorax. HEART, MEDIASTINUM AND MICHELLE: Unchanged. Mild cardiomegaly. BONES AND SOFT TISSUES: No acute abnormality. IMPRESSION: Low lung volumes and several small opacities including new focus of opacity in the right upper lobe. These probably represent atelectasis rather than pneumonia. Consider repeat CT (most recent prior CT 10/10/2019). WSN: [id number] Ordering Physician: Homer Garza Dictated By: Tono Leo MD Dictated Date/Time: 10/09/20 1:43 pm Reviewed By: Tono Leo MD Signed By: Tono Leo MD Signed Date/Time: 10/09/20 1:43 pm Transcribed By: YAIR Transcribed Date/Time: 10/09/20 12:59 pm * Exam Date Time Procedure Performing Provider Status 10/07/20 3:41 PM Chest Portable Cristel Smith; Angelo (V erified) Notes: (Chest Portable) Reason For Exam: leucocytosis;Other: RESULT: Chest Portable Chest Portable REASON: Admitted for CHF, has persistent leucocytosis; Clinical Question(s): Pneumonia COMPARISON: 09/27/2020 FINDINGS: LUNGS AND PLEURA: Low lung volumes with mild basilar atelectasis. Lungs are otherwise clear with no consolidation. No pleural effusion. No pneumothorax. HEART, MEDIASTINUM AND MICHELLE: Heart is normal in size. Normal upper mediastinal and hilar contour. BONES AND SOFT TISSUES: Embolization coils in the left upper quadrant. No acute abnormality. IMPRESSION: No acute cardiopulmonary abnormality. I have personally reviewed the images and I agree with this report. WSN: [id number] Ordering Physician: Tamara Arellano Dictated By: Roger Zuniga MD Dictated Date/Time: 10/07/20 4:16 pm Reviewed By: Mick Singh MD, V Signed By: Mick Singh MD, V Signed Date/Time: 10/07/20 4:21 pm Transcribed By: YAIR Transcribed Date/Time: 10/07/20 3:51 pm * Exam Date Time Procedure Performing Provider Status 09/27/20 6:43 AM Chest Portable Nazia Patel; Angelo (Trang blanco) Notes: (Chest Portable) Reason For Exam: Shortness of Breath RESULT: Chest Portable Chest Portable performed upright at 6:23 AM Reason: Shortness of Breath; Clinical Question(s): CHF COMPARISON: Multiple prior chest x-rays, the most recent of which is dated 06/30/2020. FINDINGS: LINES AND TUBES: None. LUNGS AND PLEURA: There are increased interstitial opacities suggesting interstitial edema. No focal infiltrate. No pleural effusion. No pneumothorax. HEART, MEDIASTINUM AND MICHELLE: Heart is normal in size. Normal upper mediastinal and hilar contour. BONES AND SOFT TISSUES: No acute bony abnormality. Vascular coils are seen in the left upper quadrant. IMPRESSION: Increased interstitial opacities suggesting interstitial edema. WSN: [id number] Ordering Physician: Zane Sharpe Dictated By: Betina Ward MD Dictated Date/Time: 09/27/20 1:00 pm Reviewed By: Betina Ward MD Signed By: Betina Ward MD Signed Date/Time: 09/27/20 1:00 pm Transcribed By: YAIR Transcribed Date/Time: 09/27/20 12:59 pm Vital Signs Most recent to oldest [Reference Range]: 1 2 3 Height 168 cm (10/21/20 7:59 AM) 168 cm (10/20/20 11:00 PM) 168 cm (10/20/20 4:59 PM) Weight 91.7 kg (10/18/20 6:03 AM) 96.4 kg (10/17/20 5:00 AM) 94.5 kg (10/16/20 6:50 AM) Oxygen Saturation [94-100 %] 90 % *L* (10/21/20 7:59 AM) 95 % (10/20/20 11:00 PM) 95 % (10/20/20 4:59 PM) Pulse Rate [55-90 bpm] 92 bpm *H* (10/21/20 7:59 AM) 104 bpm *H* (10/20/20 11:15 PM) 90 bpm (10/20/20 11:00 PM) Body Mass Index [18.5-24.99] 34.9 *>HHI* (09/26/20 11:42 PM) Blood Pressure [90-138/55-84 mm Hg] 121/74mm Hg (10/21/20 7:59 AM) 147/78mm Hg *H* (10/20/20 11:15 PM) 147/82mm Hg *H* (10/20/20 11:00 PM) Respiratory Rate [16-30 br/min] 20 br/min (10/21/20 7:59 AM) 20 br/min (10/20/20 11:15 PM) 20 br/min (10/20/20 11:00 PM) Temperature [96.8-100.4 DegF] 97.6 DegF (10/21/20 7:59 AM) 98.1 DegF (10/20/20 11:00 PM) 97.5 DegF (10/20/20 4:59 PM) Liters per Minute 1 L/min (10/17/20 1:00 PM) 1 L/min (10/14/20 7:49 AM) 2 L/min (10/13/20 11:43 PM) Mode of Delivery (Oxygen) Room air (10/21/20 7:59 AM) Room air (10/20/20 11:00 PM) Room air (10/20/20 4:59 PM) Blood pressure sites Arm, left (10/21/20 7:59 AM) Arm, right (10/20/20 11:00 PM) Arm, left (10/20/20 4:59 PM) Temperature Route Axillary (10/21/20 7:59 AM) Oral (10/20/20 11:00 PM) Axillary (10/20/20 4:59 PM) Dry Weight 98.5 kg (09/26/20 11:42 PM) Weight Obtained Via Other: Patient refused to be weighed (10/22/20 6:00 AM) Bed scale (10/18/20 6:03 AM) Bed scale (10/16/20 6:50 AM) Social History Social History Type Response Tobacco Use: 4 or less cigar ettes(less than 1/4 pack)/day in last 30 days. Started at age: 15 Years. Sex
--- OUTSIDE RECORDS SUMMARY | 2023-02-09 22:43 | XMS_ITS | Continuity of Care Document ---
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 certification signed, suicide risk assessment reviewed and signed?Unit standard safety checks ? No VANCE for first 24 hours, will reassess ?Vital signs per unit standard ?Obtain collateral information for further diagnostic clarification ?Occupational Therapy evaluate and treat ?Encourage participation in group and milieu treatment ?Interdisciplinary team to discuss discharge planning ? Medications: ?-Risperidone 2 mg in the a.m.,??3 mg??at bedtime - patient home paliperidone not on formulary,??may request??[facility] to bring in home medication ? - PRN Tylenol, MOM and Maalox available per unit standard ?-Vistaril 50 mg q 6 hours prn anxiety ?-Trazodone 50 mg qHS prn insomnia with one additional dose available ? -Management of medical conditions??as per discharge note from medicine ? Laboratory/Imaging/Cardiac studies: ECG, CBC, basic metabolic profile, TSH, AST, ALT dated during medical admission. Last hemoglobin A1c 02/2022,??reordered.?? Last lipid panel??within 1 year, not reordered.?? Mag level completed on 09/30, not reordered. ? Case and plan were discussed with psychiatry attending, Kulwant. ? Allyssa (Leannsusan Ahn MD PGY-I [employer] Supervisor Doctor Javi Lovett - [facility] Pager [phone] ? Disclaimer: This note was accomplished with use of [employer] voice recognition software, which is prone to medical and other word misidentifications and grammatical errors. The physician does strive to identify and correct these, but some could still be present. Please do not hesitate to contact the physician for clarifications. Problem List/Past Medical History Ongoing Anemia Asthma Atrophic vaginitis Biventricular HF (heart failure, [...] Hypertension Hypoxia Incisional hernia Leukocytosis Nicotine dependence Obesity (BMI 30.0-34.9) Placement Pulmonary HTN, Severe Schizoaffective disorder, bipolar type Steatohepatitis (w/Stage III Fibrosis, Liver Biopsy 05/2012) Syncope and collapse Tobacco use Weakness Weight loss 783.21 Procedure/Surgical History ???Laparotomy (03/2013)???Laparoscopic Cholecystectomy (2001)???Cesarian Section (1991)???Cesarian Section (1987)???Cesarian Section (1981)???Cesarian Section (1980) Medications Inpatient Acetaminophen Tablet, 650 mg, By Mouth, Every 4 hours, PRN albuterol CFC free 90 mcg/inh inhalation aerosol, 90 mcg= 1 puffs, Inhalation, Every 4 hours, PRN amLODIPine 5 mg oral tablet, 5 mg, By Mouth, Daily benztropine 1 mg oral tablet, 0.5 mg, By Mouth, 2 times a day carvedilol 3.125 mg oral tablet, 3.125 mg, By Mouth, 2 times a day cloNIDine 0.1 mg oral tablet, 0.1 mg, By Mouth, Daily at bedtime Docusate/Senna Tablet, 1 tablet, By Mouth, 2 times a day, PRN folic acid 1 mg oral tablet, 1 mg, By Mouth, Daily furosemide 20 mg oral tablet, 20 mg, By Mouth, Daily Insulin Glargine Inj, 6 units= 0.06 mL, Subcutaneous Injection, Daily in AM Insulin LISPRO Sliding Scale, 2-10 units, Subcutaneous Injection, 3 times a day before meals lactulose 10 gm/15 ml oral syrup, 20 Gm= 30 mL, By Mouth, 2 times a day Melatonin Tablet, 3 mg, By Mouth, Daily at bedtime, PRN MiraLax Powder, 17 Gm= 1 pack/packet, By Mouth, Daily, PRN Multivitamin Tablet, 1 tablet, By Mouth, Daily NaCL 0.9% Flush, 3 mL, IV Push, Every 8 hours NaCL 0.9% Flush, 3 mL, IV Push, Every 8 hours, PRN Nicotine Gum, 2 mg, Chew, Every hour, PRN pantoprazole 40 mg oral delayed release tablet, 40 mg, By Mouth, Daily risperiDONE 1 mg oral tablet, 2 mg, By Mouth, Daily in AM risperiDONE 1 mg oral tablet, 3 mg, By Mouth, Daily at bedtime Robitussin DM Liquid, 10 mL, By Mouth, Every 4 hours, PRN Simethicone Tablet, 80 mg, Chew, 3 times a day, PRN Spiriva Respimat Inhaler, 2 puffs, Inhalation, Daily thiamine 100 mg oral tablet, 100 mg, By Mouth, Daily traZODone 50 mg oral tablet, 50 mg, By Mouth, Daily at bedtime Zofran Inj, 4 mg, IV Push, Every 6 hours, PRN Home acetaminophen 325 mg oral tablet, 650 mg, By Mouth, Every 4 hours, PRN albuterol 90 mcg/inh inhalation powder, 2 puffs, Inhalation, Every 4 hours, PRN, 1 refills Alcohol Wipes, See Instructions amLODIPine 5 mg oral tablet, 5 mg= 1 tablet, By Mouth, Daily, 5 refills benztropine 1 mg oral tablet, 0.5 mg= 0.5 tablet, By Mouth, 2 times a day, 3 refills carvedilol 3.125 mg oral tablet, 3.125 mg= 1 tablet, By Mouth, 2 times a day, 2 refills cloNIDine 0.1 mg oral tablet, 0.1 mg= 1 tablet, By Mouth, Daily at bedtime, 2 refills Creon 12,000 units oral delayed release capsule, 1 capsule, By Mouth, 3 times a day, 3 refills Docusate/Senna Tablet, 1 tablet, By Mouth, 2 times a day, PRN folic acid 1 mg oral tablet, 1 tablet, By Mouth, Daily, 1 refills Freestyle Lite Lancets, See Instructions Freestyle Lite Monitor, See Instructions, 5 refills Freestyle Lite Test Strips, See Instructions, 11 refills furosemide 20 mg oral tablet, 20 mg= 1 tablet, By Mouth, Daily, 1 refills insulin lispro 100 u/ml subcutaneous injection, 2-10 units, Subcutaneous Injection, 3 times a day before meals lactulose 10 gm/15 ml oral syrup, 30 mL, By Mouth, 2 times a day, 5 refills Lantus Solostar Pen 100 units/mL subcutaneous solution, 6 units, Subcutaneous Injection, Daily in AM, 2 refills melatonin 3 mg oral tablet, 3 mg, By Mouth, Daily at bedtime, PRN multivitamin Multiple Vitamins oral tablet, 1 tablet, By Mouth, Daily, 1 refills Nicotine Gum, 2 mg, Chew, Every hour, PRN pantoprazole 40 mg oral delayed release tablet, 1 tablet, By Mouth, Daily risperiDONE 2 mg oral tablet, 2 mg= 1 tablet, By Mouth, Daily in AM, 3 refills risperiDONE 3 mg oral tablet, 3 mg= 1 tablet, By Mouth, Daily at bedtime, 3 refills Robitussin DM Liquid, 10 mL, By Mouth, Every 4 hours, PRN thiamine 100 mg oral tablet, 100 mg= 1 tablet, By Mouth, Daily tiotropium 2.5 mcg/inh inhalation aerosol, 2 puffs, Inhalation, Daily, 5 refills traZODone 50 mg oral tablet, 50 mg= 1 tablet, By Mouth, Daily at bedtime, 2 refills Allergies NSAIDs Zyprexa??(Hypertension) predniSONE??(Dizzinesses -DEC-2015 21:52:27<$>) Social History As per HPI Family History As per HPI Immunizations Vaccine Date Status influenza virus vaccine, inactivated 01/25/2022 Given influenza virus vaccine, inactivated 02/12/2021 Given SARS-CoV-2 (COVID-19) Ad26 vaccine 09/03/2020 Given Comments : Patient verbally consented to COVID vaccine influenza virus vaccine, inactivated 04/12/2020 Given pneumococcal 23-valent vaccine - Not Given Comments : Permanently Refused influenza virus vaccine, inactivated 12/14/2017 Given influenza virus vaccine, inactivated 12/21/2016 Given influenza virus vaccine, inactivated 02/20/2016 Given influenza virus vaccine, inactivated 02/21/2015 Given influenza virus vaccine, inactivated 12/26/2013 Given influenza virus vaccine, inactivated 02/23/2013 Given influenza virus vaccine, inactivated - Not Given Comments : Parent Or Guardian Refuses influenza virus vaccine, inactivated - Not Given Comments : Patient Refuses Influenza Vaccine (oldterm) 01/25/2011 Given Comments : VIS GIVEN [id number] pneumococcal 23-valent vaccine 08/25/2010 Given Influenza Inactive (IM) (oldterm) 12/04/2009 Given Comments : vis Influenza Vaccine (oldterm) 11/29/2008 Given Comments : VIS GIVEN 2008- tetanus-diphtheria toxoids (Td) 10/11/2008 Given Comments : vis 02/06/08 influenza virus vaccine, inactivated 03/04/2008 Given Lab Results Event Name?? Event Result?? Normal Range?? Date/Time?? Glucose, POC 99 mg/dL 70 mg/dL - 99 mg/dL 10/05/22 06:20:00 Glucose, POC 125 mg/dL??High 70 mg/dL - 99 mg/dL 10/04/22 22:24:00 Glucose, POC 144 mg/dL??High 70 mg/dL - 99 mg/dL 10/04/22 16:07:00 ? * Zoraida Perez MD: PERFORM, MODIFY Event Display: Admission Note Authored Date: Patient: ??AVILA, CARYL ? Age:??56 Years?Sex:??Female?:??1965?? Chief Complaint/Reason for Consultation from home; falling depressed for a couple of days, feeling weak History of Present Illness patient is a 56-year-old female with past medical history of his affective disorder, diabetes, CHF,cirrhosis, CKD, asthma/COPD came with complaining of generalized weakness and anorexia. Patient stated that she lives alone and she has not had anything to eat for the the last 4 to 5 days. She is quite depressed that there is nobody to take care of her and she has been unable to take care of herself, she is feeling very weak and fatigued. When I examined the patient, she was very lethargic and did not want to talk much, she was sleepy when I woke her up she was quite depressed and gave very short answers without any real eye contact. She did not complain of any chest pain, abdominal pain, palpitations, shortness of breath, fever, chills, nausea vomiting, diarrhea or constipation or any urinary complaints. Patient had a EKG done in ED which showed sinus rhythm with first AV block. Her CBC and CMP showed low sodium, low potassium and low magnesium, electrolytes were repleted in the ED Chest x-ray showed bilateral vascular congestion with bilateral edema. ?? Review of Systems All signs were reviewed and found to be negative except for those mentioned in HPI. Objective Vital Signs?? Temperature: 98.3 DegF (09/29/22 13:13:00) Temperature Route: Oral (09/29/22 13:13:00) Pulse Rate: 70 bpm (09/29/22 13:13:00) Respiratory Rate:??14 br/min??Low (09/29/22 13:13:00) Systolic Blood Pressure:??12 mm Hg??Low (09/29/22 13:13:00) Diastolic Blood Pressure:??54 mm Hg??Low (09/29/22 13:13:00) Blood pressure sites: Arm, left (09/29/22 13:13:00) Mean Arterial Pressure: 40 mm Hg (09/29/22 13:13:00) Pulse Pressure: -42 mm Hg (09/29/22 13:13:00) Oxygen Saturation: 98 % (09/29/22 13:13:00) Liters per Minute: 2 L/min (09/29/22 13:13:00) Mode of Delivery (Oxygen): Nasal cannula (09/29/22 13:13:00) Early Warning Score: 3 (09/29/22 13:14:14) ? Intake/Output? 09/28 17:15 09/29 07:00 09/28 07:00 09/27 07:00 09/26 07:00 ?? 09/29 13:42 09/29 13:42 09/29 06:59 09/28 06:59 09/27 06:59 Intake ? 50 ?0 ? 50 ?0 ?0 Output ?0 ?0 ?0 ?0 ?0 Net Total ? 50 ?0 ? 50 ?0 ?0 ? Physical Exam General: Lying comfortably in bed, no evident distress HEENT: Normocephalic, atraumatic Eyes: Not icteric, EOMI, PERRLA Cardiac: S1 + S2 + 0, no murmurs heard Respiratory: CTA, No wheezes, Rales or crackles heard Abdomen: soft, nondistended, nontender Extremities: No edema or cyanosis present Musculoskeletal: No swelling or deformity noted Neurological: AO X 2 , cranial nerves grossly normal?? Psychiatric: Mood?? depressed Assessment/Plan Diagnoses Cocaine abuse ??(F14.10) Failure to thrive in adult ??(R62.7) Hypomagnesemia ??(E83.42) ?? patient is a 56-year-old female with past medical history of his affective disorder, diabetes, CHF,cirrhosis, CKD, asthma/COPD came with complaining of generalized weakness and anorexia, Was found to have generalized weakness was secondary due to electrolyte abnormalities. ?? Generalized weakness: Depression Electrolytes abnormalities: Patient was found to have hyponatremia, hypokalemia, hypomagnesemia Repeating, will monitor Most likely patient's condition is because she was not able to eat. Will get social work consult Unfortunately patient does have very little support in the community We will continue to monitor ? Asthma/COPD: Continue albuterol and Spiriva ? HTN, HF: continue amlodipine, clonidine, carvedilol, Continue Lasix ?? Schizoaffective disorder: currently denies any visual or auditory hallucinations. continue depakote, risperidone. ?? Diabetes: continue Lantus, POC TID and QHS ?? History of liver cirrhosis: Continue Lasix Continue lactulose ?? Chronic pancreatitis: continue pancrelipase ?? Diet: Diabetic ?? DVT Prophylaxis: no recommendations due to hepatic insufficiency pneumoboots ?? Code: FULL ?Order Date/Time ??Order Action ??Order Name ??Order Detail ??09/29/2022 13:37 ??Order ??Multivitamin Tablet ??1 tablet, By Mouth, Daily ??09/29/2022 13:36 ??Order ??Spiriva Respimat 2.5 mcg Inhaler ??2 puffs, Inhalation, Daily ??09/29/2022 13:36 ??Order ??Pantoprazole 40 mg EC Tablet ??40 mg, tablet, By Mouth, Daily ??09/29/2022 13:36 ??Order ??Trazodone 50 mg Tablet ??50 mg, tablet, By Mouth, Daily at bedtime ??09/29/2022 13:35 ??Order ??Thiamine 100 mg Tablet ??100 mg, tablet, By Mouth, Daily ??09/29/2022 13:35 ??Order ??Risperidone 1 mg Tablet ??3 mg, tablet, By Mouth, Daily at bedtime ??09/29/2022 13:35 ??Order ??Risperidone 1 mg Tablet ??2 mg, tablet, By Mouth, Daily in AM ??09/29/2022 13:35 ??Order ??Lactulose 20 Gm/30mL Syrup ??20 Gm, 30 mL, By Mouth, 2 times a day ??09/29/2022 13:35 ??Order ??Insulin Glargine 100 units/mL Inj ??6 units, 0.06 mL, Subcutaneous Injection, Daily in AM ??09/29/2022 13:34 ??Order ??Furosemide 20 mg Tablet ??20 mg, tablet, By Mouth, Daily ??09/29/2022 13:34 ??Order ??Folic Acid 1 mg Tablet ??1 mg, tablet, By Mouth, Daily ??09/29/2022 13:34 ??Order ??Clonidine 0.1 mg Tablet ??0.1 mg, tablet, By Mouth, Daily at bedtime ??09/29/2022 13:34 ??Order ??Carvedilol 3.125 mg Tablet ??3.125 mg, tablet, By Mouth, 2 times a day ??09/29/2022 13:34 ??Order ??Benztropine 1 mg Tablet ??0.5 mg, tablet, By Mouth, 2 times a day ??09/29/2022 13:34 ??Order ??Amlodipine 5 mg Tablet ??5 mg, tablet, By Mouth, Daily ??09/29/2022 13:34 ??Order ??Albuterol 90mcg/Inhalation Inhaler HFA ??90 mcg, 1 puffs, Inhalation, Every 4 hours, PRN: Wheezing/Shortness of Breath ??09/29/2022 08:29 ??Order ??Ondansetron 2mg/mL Inj (2mL Vial) ??4 mg, IV Push, Every 6 hours, PRN: Nausea&Vomiting ??09/29/2022 08:29 ??Order ??VTE Prophylaxis Guidelines ??09/29/22 8:28:00 EDT ??09/29/2022 07:28 ??Order ??Change Attending, MD/DO ??Ana HAYDEN Zoraida, 09/29/22 7:28:00 EDT ??09/29/2022 07:28 ??Discontinue ??Covering Physician/VICKIE Beeper ??Pager Number: [phone], 09/28/22 21:34:00 EDT ??09/29/2022 07:28 ??Order ??Phosphorus Level ??Stat, 09/29/22 7:28:00 EDT ??09/29/2022 07:28 ??Order ??Magnesium Level ??Stat, 09/29/22 7:28:00 EDT ??09/29/2022 07:26 ??Order ??BUN ??Stat, 09/29/22 7:26:00 EDT ??09/29/2022 07:26 ??Order ??Calcium Level ??Stat, 09/29/22 7:26:00 EDT ??09/29/2022 07:26 ??Order ??Creatinine ??Stat, 09/29/22 7:26:00 EDT ??09/29/2022 07:26 ??Order ??Electrolytes ??Stat, 09/29/22 7:26:00 EDT ??09/29/2022 07:26 ??Order ??Glucose Level ??Stat, 09/29/22 7:26:00 EDT ??09/29/2022 07:25 ??Order ??CBC ??Stat, 09/29/22 7:25:00 EDT ? Histories Allergies Allergies ?(Active and Proposed Allergies Only) NSAIDs? (Severity: Unknown severity, Onset: Unknown) ?Comments: listed due to pt's liver disease predniSONE? (Severity: Unknown severity, Onset: Unknown) ?Reactions: Dizziness 02-JAN-2016 21:52:27<$> Zyprexa? (Severity: Unknown severity, Onset: [...] 2002 *Splenectomy Cesarian Section: 1991 Cesarian Section: 1988 Cesarian Section: 1981 Cesarian Section: 1980 ?? Social History Alcohol Details:??Use: Never. Substance Abuse Details:??Use: Never. Tobacco Details:??Use: 5-9 cigarettes (between 1/4 to 1/2 pack)/day in last 30 days. ??Interested in cessation: No. ??Yes, Type: Cigarettes. ?? Family History Mother: Cervical; Stomach?? Medications Albuterol (albuterol 90 mcg/inh inhalation powder)?2?puff(s)?Inhalation?Every 4 hours?as needed?as needed?PRN Wheezing Amlodipine (amLODIPine 5 mg oral tablet)?5?Milligram?1?tablet?By Mouth?Daily Benztropine (benztropine 1 mg oral tablet)?0.5?Milligram?0.5?tablet?By Mouth?2 times a day?for 30?Days Carvedilol (carvedilol 3.125 mg oral tablet)?3.125?Milligram?1?tablet?By Mouth?2 times a day Clonidine (cloNIDine 0.1 mg oral tablet)?0.1?Milligram?1?tablet?By Mouth?Daily atbedtime Durable Medical Equipment (Freestyle Lite Monitor)?See Instructions?for [...] (folic acid 1 mg oral tablet)?1?tablet?By Mouth?Daily Furosemide (furosemide 20 mg oral tablet)?20?Milligram?1?tablet?By Mouth?Daily Insulin Glargine (Lantus Solostar Pen 100 [...] Tiotropium (tiotropium 2.5 mcg/inh inhalation aerosol)?2?puff(s)?Inhalation?Daily?for 30?Days Trazodone (traZODone 50 mg oral tablet)?50?Milligram?1?tablet?By Mouth?Daily at bedtime?for 30?Days Results Recent Labs BLOOD COUNT & DIFF WBC 7.0 k/mm3 ()?? 09/29/2022 07:33 RBC 3.49 m/mm3 (Low)?? 09/29/2022 07:33 Hgb 11.5 Gm/dL (Low)?? 09/29/2022 07:33 Hct 32.2 % (Low)?? 09/29/2022 07:33 MCV 92.3 femtoliters ()?? 09/29/2022 07:33 MCH 33.0 pg ()?? 09/29/2022 07:33 MCHC 35.7 g/dL ()?? 09/29/2022 07:33 Platelet Count 440 k/mm3 ()?? 09/29/2022 07:33 RDW-SD 43.5 femtoliters ()?? 09/29/2022 07:33 MPV 10.2 femtoliters ()?? 09/29/2022 07:33 Nucleated RBC (Automated) 0.0 #/100 WBC'S ()?? 09/29/2022 07:33 Abs. NRBC 0.0 k/mm3 ()?? 09/29/2022 07:33 Abs. Neut 3.7 k/mm3 ()?? 09/28/2022 18:33 Abs. Lymph 4.1 k/mm3 (High)?? 09/28/2022 18:33 Abs. [place] 1.3 k/mm3 (High)?? 09/28/2022 18:33 Abs. Eo 0.1 k/mm3 ()?? 09/28/2022 18:33 Abs. Baso 0.0 k/mm3 ()?? 09/28/2022 18:33 Neut % 39.8 % (Low)?? 09/28/2022 18:33 Lymph % 44.6 % (High)?? 09/28/2022 18:33 [place] % 14.4 % (High)?? 09/28/2022 18:33 Eos % 0.9 % ()?? 09/28/2022 18:33 Baso % 0.2 % ()?? 09/28/2022 18:33 RBC Morphology MODERATE ()?? 09/28/2022 18:33 Platelet Estimate ADEQUATE ()?? 09/28/2022 18:33 Imm Gran 0.1 % ()?? 09/28/2022 18:33 Abs. Imm Gran 0.0 k/mm3 ()?? 09/28/2022 18:33 ?? CARDIAC Nt-Probnp 193 pg/mL (High)?? 09/28/2022 18:33 High Sensitivity Troponin (HSTnT) 8 ng/L ()?? 09/28/2022 20:41 ?? CHEM GENERAL Sodium 130 mmol/L (Low)?? 09/29/2022 07:33 Potassium 3.5 mmol/L (Low)?? 09/29/2022 07:33 Chloride 92 mmol/L (Low)?? 09/29/2022 07:33 Bicarbonate Level 27 mmol/L ()?? 09/29/2022 07:33 Anion Gap 11 ()?? 09/29/2022 07:33 Glucose Level 115 mg/dL (High)?? 09/29/2022 07:33 Glucose, POC 107 mg/dL (High)?? 09/29/2022 07:51 BUN 6 mg/dL ()?? 09/29/2022 07:33 Creatinine-Blood 0.8 mg/dL ()?? 09/29/2022 07:33 Estimated GFR Creatinine 90 ML/MIN/1.73 M2 ()?? 09/29/2022 07:33 Calcium 9.2 mg/dL ()?? 09/29/2022 07:33 Calcium, Ionized pH Corrected 1.22 mmol/L ()?? 09/28/2022 18:33 Phosphorus 3.4 mg/dL ()?? 09/29/2022 07:33 Magnesium 1.8 mg/dL ()?? 09/29/2022 07:33 Protein, Total 6.8 Gm/dL ()?? 09/28/2022 18:33 Albumin 3.9 Gm/dL ()?? 09/28/2022 18:33 AG Ratio 1.3 ()?? 09/28/2022 18:33 Alkaline Phosphatase 162 units/L (High)?? 09/28/2022 18:33 Lipase 9 units/L (Low)?? 09/28/2022 18:33 AST (SGOT) 27 units/L ()?? 09/28/2022 18:33 ALT (SGPT) 14 units/L ()?? 09/28/2022 18:33 Bilirubin, Total 0.5 mg/dL ()?? 09/28/2022 18:33 ?? ENDOCRINE/TUMOR MARKER TSH 0.44 uIU/mL ()?? 09/28/2022 18:33 ?? TOXICOLOGY/TDM Ethanol, Serum or Plasma NONE DETECTED mg/dL ()?? 09/28/2022 18:33 Salicylate Level <0.3 mg/dL (Low)?? 09/28/2022 18:33 Barbiturate Screen, Urine NONE DETECTED ()?? 09/28/2022 18:30 Cannabinoid Screen, Urine NONE DETECTED ()?? 09/28/2022 18:30 Cocaine Metabolite Screen, Urine POSITIVE (Abnormal)?? 09/28/2022 18:30 Benzodiazepine Screen, Urine NONE DETECTED ()?? 09/28/2022 18:30 Amphetamine Screen, Urine NONE DETECTED ()?? 09/28/2022 18:30 Opiate Screen, Urine NONE DETECTED ()?? 09/28/2022 18:30 Acetaminophen Level <5 mg/L (Low)?? 09/28/2022 18:33 ?? UA/URINALYSIS Appear/Color, Urine LIGHT YELLOW ()?? 09/28/2022 18:30 Specific [place], Urine 1.007 ()?? 09/28/2022 18:30 pH, Urine 6.0 ()?? 09/28/2022 18:30 Albumin, Urine NEGATIVE ()?? 09/28/2022 18:30 Glucose, Urine NEGATIVE ()?? 09/28/2022 18:30 Ketones, Urine NEGATIVE ()?? 09/28/2022 18:30 Bilirubin, Urine NEGATIVE ()?? 09/28/2022 18:30 Hemoglobin, Urine NEGATIVE ()?? 09/28/2022 18:30 Nitrite, Urine NEGATIVE ()?? 09/28/2022 18:30 Leukocyte, Urine NEGATIVE ()?? 09/28/2022 18:30 Urobilinogen NORMAL mg/dL ()?? 09/28/2022 18:30 WBC's, Urine 1 /HPF ()?? 09/28/2022 18:30 RBC's, Urine <1 /HPF ()?? 09/28/2022 18:30 Squamous Epith 2 /HPF ()?? 09/28/2022 18:30 Mucus SLIGHT /LPF ()?? 09/28/2022 18:30 Hold Urine Culture Testing available 48 hours from time of collection. ()?? 09/28/2022 18:30 ?? URINE OTHER Est Creatinine Clearance 69.80 mL/min ()?? 09/29/2022 08:54 ?? VIROLOGY COVID-19 PCR Specimen Source NASAL ()?? 09/28/2022 18:30 COVID-19 PCR Result NEGATIVE ()?? 09/28/2022 18:30 ? EKG study * Event Display: EKG Authored Date: * Event Display: ECG 12-Lead Authored Date: Please click on pdf link to open report * Event Display: ECG 12-Lead Authored Date: Ventricular Rate: 84 BPM Atrial Rate: 84 BPM P-R Interval: 224 ms QRS Duration: 104 ms Q-T Interval: 412 ms QTC Calculation(Bazett): 486 ms P [place]: 65 degrees R [place]: 53 degrees T [place]: 76 degrees Sinus rhythm with 1st degree A-V block Possible Left atrial enlargement Borderline ECG When compared with ECG of 20-JUL-2022 14:12, SD interval has increased Non-specific change in ST segment in Inferior leads Non-specific change in ST segment in Anterolateral leads Confirmed by JOSE ROBERTO SINGH ([id number]) on 09/29/2022 9:53:21 PM [place]: JOSE ROBERTO SINGH Cardiology * Event Display: Cardiac Rhythm Strips Authored Date: Hospital Progress note * Lore HAYDEN, Nena: PERFORM Event Display: Progress Note Hospital Authored Date: Patient: ??AUSTIN, CARYL ? Age:??56 Years?Sex:??Female?:??1965?? Subjective This morning pt notes her main concern is [her] nerves , also notes concerns about social stressors namely housing issues. Denies any acute medical concerns such as chest or abd pain etc. She is amenable to go to psych floor when bed available. Denies SI/HI/AVH. Review of Systems as per HPI Objective Vital Signs?? Temperature: 97.7 DegF (10/04/22 15:00:00) Temperature Route: Oral (10/04/22 15:00:00) Pulse Rate: 79 bpm (10/04/22 15:00:00) Respiratory Rate: 16 br/min (10/04/22 16:20:00) Systolic Blood Pressure: 136 mm Hg (10/04/22 15:00:00) Diastolic Blood Pressure:??91 mm Hg??High (10/04/22 15:00:00) Blood pressure sites: Arm, right (10/04/22 15:00:00) Mean Arterial Pressure: 89 mm Hg (10/03/22 20:16:00) Pulse Pressure: 38 mm Hg (10/03/22 20:16:00) Oxygen Saturation: 98 % (10/04/22 15:00:00) Mode of Delivery (Oxygen): Room air (10/04/22 15:00:00) Early Warning Score: 2 (10/04/22 16:20:23) ? Ventilator Settings?? No qualifying data available. ? Intake/Output? 09/28 17:15 10/04 07:00 10/03 07:00 10/02 07:00 10/01 07:00 ?? 10/04 16:59 10/04 16:59 10/04 06:59 10/03 06:59 10/02 06:59 Intake ? 3380 ?660 ?840 ?840 ?150 Output ?0 ?0 ?0 ?0 ?0 Net Total ? 3380 ?660 ?840 ?840 ?150 ? Urine Count ? 21 ?2 ?2 ?4 ?9 ? Physical Exam Vital Signs (24 hrs) Last Charted?? Minimum?? Maximum?? Resp Rate?? 16?? 10/04/2022 16:20?? 16?? 10/03/2022 18:47 ?? 20?? 10/03/2022 20:16?? SBP?? 136?? 10/04/2022 15:00?? 109?? 10/04/2022 11:00 ?? 136?? 10/04/2022 15:00?? DBP?? H??91?? 10/04/2022 15:00?? 70?? 10/04/2022 07:42 ?? H??91?? 10/04/2022 15:00? General Appearance: The patient is a female and in NAD. Eyes: EOMI. No scleral icterus. Cardiovascular: RRR S1 and S2 heard with no M/R/G. Respiratory: ??Breath sounds clear to auscultation bilaterally. Stable on room air. GI: Soft. Nontender and nondistended. Normal bowel sounds present throughout abdomen. ??No rebound tenderness or other findings suggestive of an acute abdomen.?? MS: ??No BLE pitting edema. Skin:??No rashes seen on extremities. Neuro: ??No slurred speech. Moving all extremities spontaneously. Psych: Alert and oriented x3. Pleasant. Blunted affect, slow latent speech. _ Home Medications Albuterol (albuterol 90 mcg/inh inhalation powder)?2?puff(s)?Inhalation?Every 4 hours?as needed?as needed?PRN Wheezing Amlodipine (amLODIPine 5 mg oral tablet)?5?Milligram?1?tablet?By Mouth?Daily Benztropine (benztropine 1 mg oral tablet)?0.5?Milligram?0.5?tablet?By Mouth?2 times a day?for 30?Days Carvedilol (carvedilol 3.125 mg oral tablet)?3.125?Milligram?1?tablet?By Mouth?2 times a day Clonidine (cloNIDine 0.1 mg oral tablet)?0.1?Milligram?1?tablet?By Mouth?Daily atbedtime Durable Medical Equipment (Freestyle Lite Monitor)?See Instructions?for [...] (folic acid 1 mg oral tablet)?1?tablet?By Mouth?Daily Furosemide (furosemide 20 mg oral tablet)?20?Milligram?1?tablet?By Mouth?Daily Insulin Glargine (Lantus Solostar Pen 100 [...] Tiotropium (tiotropium 2.5 mcg/inh inhalation aerosol)?2?puff(s)?Inhalation?Daily?for 30?Days Trazodone (traZODone 50 mg oral tablet)?50?Milligram?1?tablet?By Mouth?Daily at bedtime?for 30?Days ? Inpatient Medications Medications (27) Active SCHEDULED: (17) Amlodipine 5 mg Tablet (amLODIPine 5 mg oral tablet) ??5 mg, By Mouth, Daily Benztropine 1 mg Tablet (benztropine 1 mg oral tablet) ??0.5 mg, By Mouth, 2 times a day Carvedilol 3.125 mg Tablet (carvedilol 3.125 mg oral tablet) ??3.125 mg, By Mouth, 2 times a day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 recorded ?? Medications Home Medications Albuterol (albuterol 90 mcg/inh inhalation powder)?2?puff(s)?Inhalation?Every 4 hours?as needed?as needed?PRN Wheezing Amlodipine (amLODIPine 5 mg oral tablet)?5?Milligram?1?tablet?By Mouth?Daily Benztropine (benztropine 1 mg oral tablet)?0.5?Milligram?0.5?tablet?By Mouth?2 times a day?for 30?Days Carvedilol (carvedilol 3.125 mg oral tablet)?3.125?Milligram?1?tablet?By Mouth?2 times a day Clonidine (cloNIDine 0.1 mg oral tablet)?0.1?Milligram?1?tablet?By Mouth?Daily atbedtime Durable Medical Equipment (Freestyle Lite Monitor)?See Instructions?for [...] (folic acid 1 mg oral tablet)?1?tablet?By Mouth?Daily Furosemide (furosemide 20 mg oral tablet)?20?Milligram?1?tablet?By Mouth?Daily Insulin Glargine (Lantus Solostar Pen 100 [...] Tiotropium (tiotropium 2.5 mcg/inh inhalation aerosol)?2?puff(s)?Inhalation?Daily?for 30?Days Trazodone (traZODone 50 mg oral tablet)?50?Milligram?1?tablet?By Mouth?Daily at bedtime?for 30?Days ? Inpatient Medications Medications (26) Active SCHEDULED: (17) Amlodipine 5 mg Tablet (amLODIPine 5 mg oral tablet) ??5 mg, By Mouth, Daily Benztropine 1 mg Tablet (benztropine 1 mg oral tablet) ??0.5 mg, By Mouth, 2 times a day Carvedilol 3.125 mg Tablet (carvedilol 3.125 mg oral tablet) ??3.125 mg, By Mouth, 2 times a day Clonidine 0.1 mg Tablet (cloNIDine 0.1 mg oral tablet) ??0.1 mg, By Mouth, Daily at bedtime Folic Acid 1 mg Tablet (folic acid 1 mg oral tablet) ??1 mg, By Mouth, Daily Furosemide 20 mg Tablet (furosemide 20 mg oral tablet) ??20 mg, By Mouth, Daily Insulin Glargine 100 units/mL Inj (Insulin Glargine Inj) ??6 units 0.06 mL, Subcutaneous Injection,Daily in AM Insulin Lispro 100 units/mL Inj (3mL) (Insulin LISPRO Sliding Scale) ??2-10 units, Subcutaneous Injection, 3 times a day before meals Lactulose 20 Gm/30mL Syrup (lactulose 10 gm/15 ml oral syrup) ??20 Gm 30 mL, By Mouth, 2 times a day Multivitamin Tablet ??1 tablet, By Mouth, Daily NaCl 0.9% Flush 3ml (NaCL 0.9% Flush) ??3 mL, IV Push, Every 8 hours Pantoprazole 40 mg EC Tablet (pantoprazole 40 mg oral delayed release tablet) ??40 mg, By Mouth, Daily Risperidone 1 mg Tablet (risperiDONE 1 mg oral tablet) ??2 mg, By Mouth, Daily in AM Risperidone 1 mg Tablet (risperiDONE 1 mg oral tablet) ??3 mg, By Mouth, Daily at bedtime Spiriva Respimat 2.5 mcg Inhaler (Spiriva Respimat Inhaler) ??2 puffs, Inhalation, Daily Thiamine 100 mg Tablet (thiamine 100 mg oral tablet) ??100 mg, By Mouth, Daily Trazodone 50 mg Tablet (traZODone 50 mg oral tablet) ??50 mg, By Mouth, Daily at bedtime CONTINUOUS: (0) PRN: (9) Acetaminophen 325 mg Tablet (Acetaminophen Tablet) ??650 mg, By Mouth, Every 4 hours Albuterol 90mcg/Inhalation Inhaler HFA (albuterol CFC free 90 mcg/inh inhalation aerosol) ??90 mcg 1 puffs, Inhalation, Every 4 hours Dextromethorphan-Guaifenesin 20 mg-200 mg/10 mL Liqu UD (Robitussin DM Liquid) ??10 mL, By Mouth, Every 4 hours Melatonin 3 mg Tablet (Melatonin Tablet) ??3 mg, By Mouth, Daily at bedtime NaCl 0.9% Flush 3ml (NaCL 0.9% Flush) ??3 mL, IV Push, Every 8 hours Ondansetron 2mg/mL Inj (2mL Vial) (Zofran Inj) ??4 mg, IV Push, Every 6 hours Polyethylene Glycol 17 Gm Powder (MiraLax Powder) ??17 Gm 1 pack/packet, By Mouth, Daily Senna 8.6 mg / Docusate 50 mg tablet (Docusate/Senna Tablet) ??1 tablet, By Mouth, 2 times a day Simethicone 80 mg Chewable Tablet (Simethicone Tablet) ??80 mg, Chew, 3 times a day ? Vaccinations and Immunoprophylaxis [...] Recent Labs BLOOD COUNT & DIFF WBC 8.3 k/mm3 ()?? 09/30/2022 06:27 RBC 3.49 m/mm3 (Low)?? 09/30/2022 06:27 Hgb 11.4 Gm/dL (Low)?? 09/30/2022 06:27 Hct 33.4 % (Low)?? 09/30/2022 06:27 MCV 95.7 femtoliters ()?? 09/30/2022 06:27 MCH 32.7 pg ()?? 09/30/2022 06:27 MCHC 34.1 g/dL ()?? 09/30/2022 06:27 Platelet Count 458 k/mm3 ()?? 09/30/2022 06:27 RDW-SD 46.7 femtoliters ()?? 09/30/2022 06:27 MPV 10.4 femtoliters ()?? 09/30/2022 06:27 Nucleated RBC (Automated) 0.0 #/100 WBC'S ()?? 09/30/2022 06:27 Abs. NRBC 0.0 k/mm3 ()?? 09/30/2022 06:27 ?? CHEM GENERAL Sodium 136 mmol/L ()?? 09/30/2022 06:27 Potassium 4.3 mmol/L ()?? 09/30/2022 06:27 Chloride 97 mmol/L (Low)?? 09/30/2022 06:27 Bicarbonate Level 28 mmol/L ()?? 09/30/2022 06:27 Anion Gap 11 ()?? 09/30/2022 06:27 Glucose Level 140 mg/dL (High)?? 09/30/2022 06:27 Glucose, POC 139 mg/dL (High)?? 09/30/2022 06:45 BUN 6 mg/dL ()?? 09/30/2022 06:27 Creatinine-Blood 0.8 mg/dL ()?? 09/30/2022 06:27 Estimated GFR Creatinine 86 ML/MIN/1.73 M2 ()?? 09/30/2022 06:27 Calcium 9.1 mg/dL ()?? 09/30/2022 06:27 Phosphorus 3.3 mg/dL ()?? 09/30/2022 06:27 Magnesium 1.7 mg/dL ()?? 09/30/2022 06:27 ?? URINE OTHER Est Creatinine Clearance 69.80 mL/min ()?? 09/29/2022 08:54 ? Abnormal Labs ?? BLOOD COUNT & DIFF ??Abs. NRBC ??0.0 k/mm3 () ??09/30/2022 06:27 ??Hct ??33.4 % (Low) ??09/30/2022 06:27 ??Hgb ??11.4 Gm/dL (Low) ??09/30/2022 06:27 ??Nucleated RBC (Automated) ??0.0 #/100 WBC'S () ??09/30/2022 06:27 ??RBC ??3.49 m/mm3 (Low) ??09/30/2022 06:27 ??RDW-SD ??46.7 femtoliters () ??09/30/2022 06:27 ? CHEM GENERAL ??Chloride ??97 mmol/L (Low) ??09/30/2022 06:27 ??Estimated GFR Creatinine ??86 ML/MIN/1.73 M2 () ??09/30/2022 06:27 ??Glucose Level ??140 mg/dL (High) ??09/30/2022 06:27 ??Glucose, POC ??139 mg/dL (High) ??09/30/2022 06:45 ? Note: Critical results are displayed in red. ? Blood Glucose Trend Glucose Level:??140 mg/dL??High (09/30/22 06:27:00) Glucose, POC:??139 mg/dL??High (09/30/22 06:45:00) Glucose, POC:??154 mg/dL??High (09/29/22 21:31:00) Glucose, POC:??149 mg/dL??High (09/29/22 16:12:00) ? CBC, CBC w/Diff?? CBC?? WBC: 8.3 k/mm3 (:27) RBC:??3.49 m/mm3??Low (:27) Hct:??33.4 %??Low (:) RDW-SD: 46.7 femtoliters (:) Nucleated RBC (Automated): 0 #/100 WBC'S (:) Abs. NRBC: 0 k/mm3 (:27) ? BMP, Mg, and Phos Anion Gap: 11 (:27) Bicarbonate Level: 28 mmol/L (:27) BUN: 6 mg/dL (:27) Calcium: 9.1 mg/dL (:27) Chloride:??97 mmol/L??Low (:) Creatinine-Blood: 0.8 mg/dL (:27) Estimated GFR Creatinine: 86 ML/MIN/1.73 M2 (:27) Glucose Level:??140 mg/dL??High (:27) Magnesium: 1.7 mg/dL (:27) Phosphorus: 3.3 mg/dL (:27) Potassium: 4.3 mmol/L (:27) Sodium: 136 mmol/L (:27) ?? Coagulation Profile?? No qualifying data available. ?? LFT?? No qualifying data available. ?? Urinalysis?? No qualifying data available. ?? Microbiology ?? COVID-19 (2019 Novel Coronavirus) PCR?? Completed?? Source: Nasal Body Site: Nose Collected Dt/Tm: 09/28/2022 17:49 Last Updated Dt/Tm: 09/29/2022 03:34 ? Cardiology Labs Nt-Probnp:??193 pg/mL??High (09/28/22 18:33:00) High Sensitivity Troponin (HSTnT): 8 ng/L (09/28/22 20:41:00) High Sensitivity Troponin (HSTnT): 8 ng/L (09/28/22 18:33:00) ?? Blood Gases?? No qualifying data available. ?? Uric/LDH?? No qualifying data available. ?? * Maria Alejandra HAYDEN, Miguel Espinal: PERFORM Event Display: Consultation Note Authored Date: [id number] ATTENDING PSYCHIATRIST NOTE: ??On the day of service, ??Amado presented this case to me, I reviewed the chart, interviewed the patient, and discussed the case with Dr. Fischer. ??I agree with her findings, impression, and recommendations as noted below. Note * Lore HAYDEN, Nena: PERFORM Event Display: Discharge/Transfer Note Hospital Authored Date: [id number] Patient: ??AVILA, CARYL ? Age:??56 Years?Sex:??Female?:??1965?? Patient Information Discharge Location: [facility] Primary Care Physician: Jaki Bishop MD Admit Date/Time: 09/28/22 17:15 Discharge Disposition Discharge Disposition: ??to [facility] Discharge Diagnosis Failure to thrive in adult (R62.7) Cocaine abuse (F14.10) Chronic kidney disease (CKD) (N18.9) COPD without exacerbation (J44.9) Diabetes (E11.9) Biventricular HF (heart failure, EF 20-30%) (I50.82) Pulmonary HTN, Severe (I27.20) Schizoaffective disorder, bipolar type (F25.0) Steatohepatitis (w/Stage III Fibrosis, Liver Biopsy 05/2012) (K75.81) Hypomagnesemia (E83.42) ?? _ Discharge Medications Acetaminophen (acetaminophen 325 mg oral tablet)?650?Milligram?By Mouth?Every 4 hours?as needed?Temperature Greater than 100.5?Pain , Mild Albuterol (albuterol 90 mcg/inh inhalation powder)?2?puff(s)?Inhalation?Every 4 hours?as needed?as needed?PRN Wheezing Amlodipine (amLODIPine 5 mg oral tablet)?5?Milligram?1?tablet?By Mouth?Daily Benztropine (benztropine 1 mg oral tablet)?0.5?Milligram?0.5?tablet?By Mouth?2 times a day?for 30?Days Carvedilol (carvedilol 3.125 mg oral tablet)?3.125?Milligram?1?tablet?By Mouth?2 times a day Clonidine (cloNIDine 0.1 mg oral tablet)?0.1?Milligram?1?tablet?By Mouth?Daily atbedtime Docusate-Senna (Docusate/Senna Tablet)?1?tab(s)?By Mouth?2 times a day?as needed?Constipation Durable Medical [...] (folic acid 1 mg oral tablet)?1?tablet?By Mouth?Daily Furosemide (furosemide 20 mg oral tablet)?20?Milligram?1?tablet?By Mouth?Daily Guaifenesin/Dextromethorphan (Robitussin DM Liquid)?10?Milliliter?By Mouth?Every 4 hours?as needed?Cough Insulin Glargine (Lantus Solostar Pen 100 units/mL subcutaneous solution)?6?unit(s)?Subcutaneous Injection?Daily in AM Insulin Lispro (insulin lispro 100 u/ml subcutaneous injection)?2-10 units?Subcutaneous Injection?3 times a day before meals Lactulose (lactulose 10 gm/15 ml oral syrup)?30?Milliliter?By Mouth?2 times a day Melatonin (melatonin 3 mg oral tablet)?3?Milligram?By Mouth?Daily at bedtime?as needed?Insomnia Multivitamin (multivitamin Multiple Vitamins oral tablet)?1?tab(s)?By Mouth?Daily Nicotine (Nicotine Gum)?2?Milligram?Chew?Every hour?as needed?Nicotine WithdrawalSymptoms (NOT to exceed 24 pieces per day)?Other Pancrelipase (Creon 12,000 units oral delayed release capsule)?1?capsule?By Mouth?3 times a day Pantoprazole (pantoprazole 40 mg oral delayed release tablet)?1?tab(s)?By Mouth?Daily Risperidone (risperiDONE 2 mg oral tablet)?2?Milligram?1?tablet?By Mouth?Daily Dominique?for 30?Days Risperidone (risperiDONE 3 mg oral tablet)?3?Milligram?1?tablet?By Mouth?Daily atbedtime Thiamine (thiamine 100 mg oral tablet)?100?Milligram?1?tablet?By Mouth?Daily?for 30?Days Tiotropium (tiotropium 2.5 mcg/inh inhalation aerosol)?2?puff(s)?Inhalation?Daily?for 30?Days Trazodone (traZODone 50 mg oral tablet)?50?Milligram?1?tablet?By Mouth?Daily at bedtime?for 30?Days ? Quality Measures Tobacco Use Treatment:?Cessation Medication Prescribed on Discharge:??Active Home Med for Cessation Medication ? Medications Started Risperidone (risperiDONE 2 mg oral tablet)?2?Milligram?1?tablet?By Mouth?Daily Dominique?for 30?Days Risperidone (risperiDONE 3 mg oral tablet)?3?Milligram?1?tablet?By Mouth?Daily atbedtime Medications Discontinued n/a Doses Changed n/a Future Appointments Tuesday 11:30 AM EDT ?? With: Sandra MARY, Rm Ruff Where: [place] [address]- Status: Pending Hospital Course 56-year-old female with past medical history of shizoaffective disorder, diabetes, CHF, cirrhosis, CKD, asthma/COPD came with complaining of generalized weakness. Concern for AMS vs depressive state,psychiatry on board and recommend inpatient psych hospitalization. Work-up for altered mental status has been negative with CT head without acute abnormalities, B12/folate/TSH/ammonia levels all within normal limits and RPR negative.??Medically cleared. Psych bed now available, going to [facility]. ?? Objective ?? Schizoaffective disorder, bipolar type, current depressive episode ??Generalized weakness: ?Depression ?Electrolytes abnormalities - resolved ?Patient was found to have hyponatremia, hypokalemia, hypomagnesemia which have since resolved. Likely 2/2 diminished PO intake ?Unclear if patient suddenly was unable to care for herself due to a mental change or due to psychiatric condition, likely depressive state but will need to r/o other causes ?B12, folate, TSH WNL, Ammonia level 28, RPR negative ?CT head with no acute abnormalities ?Medically cleared ? Going to [facility] Recommendations: ?- Continue risperidone 2 mg qAM & 3 mg qHS. Need VNA to bring home non- formulary paliperidone 9mg qd but until then continue risperidone/mgmt as per psych. ?- Not taking Depakote ??- Defer further mgmt. of psych meds to psychiatry ?Asthma/COPD: ?Tobacco use disorder ?Pt reports she smokes 1 PPD Recommendations: ?- Nicotine gum as needed, could??also consider nicotine patch 7-14mg daily??if needed ?- Continue albuterol and Spiriva ?? Chronic/stable conditions ??HTN, HF: continue amlodipine, clonidine, carvedilol, Lasix ??Diabetes: continue Lantus, POC TID and QHS ??History of liver cirrhosis: Continue Lasix & lactulose ??Chronic pancreatitis: continue pancrelipase Will need PCP f/u after DC from??[facility] ?Quality measures ??Diet:Diabetic ??DVT Prophylaxis: no recommendations due to hepatic insufficiency. pneumoboots ??Code: FULL ??Dispo: to [facility] Vital Signs?? Temperature: 97.9 DegF (10/05/22 07:42:00) Temperature Route: Oral (10/05/22 07:42:00) Pulse Rate: 71 bpm (10/05/22 07:42:00) Respiratory Rate: 18 br/min (10/05/22 07:42:00) Systolic Blood Pressure: 123 mm Hg (10/05/22 07:42:00) Diastolic Blood Pressure: 76 mm Hg (10/05/22 07:42:00) Blood pressure sites: Arm, left (10/05/22 07:42:00) Mean Arterial Pressure: 92 mm Hg (10/05/22 07:42:00) Pulse Pressure: 47 mm Hg (10/05/22 07:42:00) Oxygen Saturation: 100 % (10/05/22 07:42:00) Mode of Delivery (Oxygen): Room air (10/05/22 07:00:00) Early Warning Score: 2 (10/05/22 08:13:50) ? . Physical Exam Vital Signs (24 hrs) Last Charted?? Minimum?? Maximum?? Resp Rate?? 18?? 10/05/2022 07:42?? 16?? 10/04/2022 15:00 ?? 20?? 10/04/2022 21:09?? SBP?? 123?? 10/05/2022 07:42?? 123?? 10/05/2022 07:42 ?? H??145?? 10/04/2022 21:09?? DBP?? 76?? 10/05/2022 07:42?? 76?? 10/05/2022 07:42 ?? H??91?? 10/04/2022 15:00? General Appearance: The patient is a female and in NAD. Eyes: EOMI. No scleral icterus. Cardiovascular: RRR S1 and S2 heard with no M/R/G. Respiratory: ??Breath sounds clear to auscultation bilaterally. Stable on room air. GI: Soft. Nontender and nondistended. Normal bowel sounds present throughout abdomen. ??No rebound tenderness or other findings suggestive of an acute abdomen.?? MS: ??No BLE pitting edema. Skin:??No rashes seen on extremities. Neuro: ??No slurred speech. Moving all extremities spontaneously. Psych: Alert and oriented x3. Pleasant. Blunted affect, slow latent speech. ?? Consultants psychiatry Patient Education Titles Depression: Tips to Help Yourself?? Depression?? Follow-Up Appointments Added Follow Up ?Time Frame ?Comments Dario HAYDEN, Jaki?2 to 5 weeks?We recommend that you follow-up with your primary care after your hospitalization. Patient Instructions You are hospitalized due to??lack of support at home and??general weakness which likely was due to??your inability to get up and eat.?? You are found to have multiple electrolyte abnormalities which were corrected while you were here. ??Your??CT of your head did not show any acute abnormalities??and the blood work testing did not show any concerns about other causes for??altered mental status. ??Psychiatry saw you and thinks that psychiatry admission would be beneficial to you. ?? Thank you for letting us participate in your care. Post Discharge Care Discharge ?to [facility], ??10/05/22 11:35:00 EDT Results Discharge Labs BLOOD COUNT & DIFF WBC 8.6 k/mm3 ()?? 10/01/2022 01:43 RBC 3.56 m/mm3 (Low)?? 10/01/2022 01:43 Hgb 11.5 Gm/dL (Low)?? 10/01/2022 01:43 Hct 33.7 % (Low)?? 10/01/2022 01:43 MCV 94.7 femtoliters ()?? 10/01/2022 01:43 MCH 32.3 pg ()?? 10/01/2022 01:43 MCHC 34.1 g/dL ()?? 10/01/2022 01:43 Platelet Count 451 k/mm3 ()?? 10/01/2022 01:43 RDW-SD 46.2 femtoliters ()?? 10/01/2022 01:43 MPV 10.2 femtoliters ()?? 10/01/2022 01:43 Nucleated RBC (Automated) 0.0 #/100 WBC'S ()?? 10/01/2022 01:43 Abs. NRBC 0.0 k/mm3 ()?? 10/01/2022 01:43 Abs. Neut 3.7 k/mm3 ()?? 09/28/2022 18:33 Abs. Lymph 4.1 k/mm3 (High)?? 09/28/2022 18:33 Abs. [place] 1.3 k/mm3 (High)?? 09/28/2022 18:33 Abs. Eo 0.1 k/mm3 ()?? 09/28/2022 18:33 Abs. Baso 0.0 k/mm3 ()?? 09/28/2022 18:33 Neut % 39.8 % (Low)?? 09/28/2022 18:33 Lymph % 44.6 % (High)?? 09/28/2022 18:33 [place] % 14.4 % (High)?? 09/28/2022 18:33 Eos % 0.9 % ()?? 09/28/2022 18:33 Baso % 0.2 % ()?? 09/28/2022 18:33 RBC Morphology MODERATE ()?? 09/28/2022 18:33 Platelet Estimate ADEQUATE ()?? 09/28/2022 18:33 Imm Gran 0.1 % ()?? 09/28/2022 18:33 Abs. Imm Gran 0.0 k/mm3 ()?? 09/28/2022 18:33 ?? CARDIAC Nt-Probnp 193 pg/mL (High)?? 09/28/2022 18:33 High Sensitivity Troponin (HSTnT) 8 ng/L ()?? 09/28/2022 20:41 ?? CHEM GENERAL Sodium 135 mmol/L ()?? 10/01/2022 01:43 Potassium 4.2 mmol/L ()?? 10/01/2022 01:43 Chloride 96 mmol/L (Low)?? 10/01/2022 01:43 Bicarbonate Level 27 mmol/L ()?? 10/01/2022 01:43 Anion Gap 12 ()?? 10/01/2022 01:43 Glucose Level 160 mg/dL (High)?? 10/01/2022 01:43 Glucose, POC 99 mg/dL ()?? 10/05/2022 06:20 BUN 5 mg/dL (Low)?? 10/01/2022 01:43 Creatinine-Blood 0.7 mg/dL ()?? 10/01/2022 01:43 Estimated GFR Creatinine 96 ML/MIN/1.73 M2 ()?? 10/01/2022 01:43 Calcium 9.3 mg/dL ()?? 10/01/2022 01:43 Calcium, Ionized pH Corrected 1.22 mmol/L ()?? 09/28/2022 18:33 Phosphorus 3.3 mg/dL ()?? 09/30/2022 06:27 Magnesium 1.7 mg/dL ()?? 09/30/2022 06:27 Protein, Total 6.8 Gm/dL ()?? 09/28/2022 18:33 Albumin 3.9 Gm/dL ()?? 09/28/2022 18:33 AG Ratio 1.3 ()?? 09/28/2022 18:33 Alkaline Phosphatase 162 units/L (High)?? 09/28/2022 18:33 Lipase 9 units/L (Low)?? 09/28/2022 18:33 AST (SGOT) 27 units/L ()?? 09/28/2022 18:33 ALT (SGPT) 14 units/L ()?? 09/28/2022 18:33 Bilirubin, Total 0.5 mg/dL ()?? 09/28/2022 18:33 Vitamin B12 Level 1295 pg/mL (High)?? 09/30/2022 06:27 Folic Acid Level 36.4 ng/mL ()?? 09/30/2022 06:27 ?? ENDOCRINE/TUMOR MARKER TSH 0.53 uIU/mL ()?? 09/30/2022 06:27 ? MISC. CHEMISTRY Ammonia, Venous 28 ??mole/L ()?? 09/30/2022 15:50 ? SEROLOGY INF DISEASE Syphilis Interpretation Indicative of the absence of infection with Treponemal pallidum. Test ()?? 09/30/2022 15:50 Syphilis Screen by NATHAN NEGATIVE (N)?? 09/30/2022 15:50 RPR Titer Result NOT INDICATED ()?? 09/30/2022 15:50 TP-PA Result NOT INDICATED ()?? 09/30/2022 15:50 ?? TOXICOLOGY/TDM Ethanol, Serum or Plasma NONE DETECTED mg/dL ()?? 09/28/2022 18:33 Salicylate Level <0.3 mg/dL (Low)?? 09/28/2022 18:33 Barbiturate Screen, Urine NONE DETECTED ()?? 09/28/2022 18:30 Cannabinoid Screen, Urine NONE DETECTED ()?? 09/28/2022 18:30 Cocaine Metabolite Screen, Urine POSITIVE (Abnormal)?? 09/28/2022 18:30 Benzodiazepine Screen, Urine NONE DETECTED ()?? 09/28/2022 18:30 Amphetamine Screen, Urine NONE DETECTED ()?? 09/28/2022 18:30 Opiate Screen, Urine NONE DETECTED ()?? 09/28/2022 18:30 Acetaminophen Level <5 mg/L (Low)?? 09/28/2022 18:33 ? UA/URINALYSIS Appear/Color, Urine LIGHT YELLOW ()?? 09/28/2022 18:30 Specific [place], Urine 1.007 ()?? 09/28/2022 18:30 pH, Urine 6.0 ()?? 09/28/2022 18:30 Albumin, Urine NEGATIVE ()?? 09/28/2022 18:30 Glucose, Urine NEGATIVE ()?? 09/28/2022 18:30 Ketones, Urine NEGATIVE ()?? 09/28/2022 18:30 Bilirubin, Urine NEGATIVE ()?? 09/28/2022 18:30 Hemoglobin, Urine NEGATIVE ()?? 09/28/2022 18:30 Nitrite, Urine NEGATIVE ()?? 09/28/2022 18:30 Leukocyte, Urine NEGATIVE ()?? 09/28/2022 18:30 Urobilinogen NORMAL mg/dL ()?? 09/28/2022 18:30 WBC's, Urine 1 /HPF ()?? 09/28/2022 18:30 RBC's, Urine <1 /HPF ()?? 09/28/2022 18:30 Squamous Epith 2 /HPF ()?? 09/28/2022 18:30 Mucus SLIGHT /LPF ()?? 09/28/2022 18:30 Hold Urine Culture Testing available 48 hours from time of collection. ()?? 09/28/2022 18:30 ?? URINE OTHER Est Creatinine Clearance 79.78 mL/min ()?? 10/01/2022 03:02 ? VIROLOGY COVID-19 PCR Specimen Source NASAL ()?? 09/28/2022 18:30 COVID-19 PCR Result NEGATIVE ()?? 09/28/2022 18:30 ? 50??minutes spent on discharge * Tigist RAMIREZ, Naomy: PERFORM Event Display: Patient Education/Instruction Authored Date: [id number] Inpatient Adult Discharge Instructions [address] [address] Name: CARYL AVILA : 1965 Visit: 09/28/2022 17:15:00 Current Date: 10/05/2022 12:44 Account: [id number] Inpatient Adult Discharge Instructions We would like [...] and their families. Surveys are administered by [employer] ?? If further treatment with your primary care physician or another doctor is recommended, it is important for you to keep the appointment. Call your primary care physician or return to the Emergency Department immediately if your condition worsens, fails to improve, or new symptoms develop. If you need to find a doctor, you can call [facility] for a referral at [phone] or toll free at [phone]) or log in to [email or web address].. ?? You can view and manage your care through the patient portal or by using a health care vickie of your choosing. [email or web address] is a website that allows you to securely view your medical information including your hospital discharge summary, office visit summaries, medications and follow-up visits. You can also request appointments, renew medications, and request access to your medical information using a health care vickie of your choosing, or just ask a question. You can enroll at [email or web address] or register during your next office visit. You have been discharged from [facility], Patient Care Unit: D5A. If you have any questions regarding these instructions after you leave, please call us and we will be happy to assist you. [facility] Your Care Team Attending Physician Dwain HAYDEN, Pinky Consulting Providers Maria Alejandra HAYDEN, Miguel Espinal Discharging Providers Lore HAYDEN, Nena Reason for Admission from home; falling depressed for a couple of days, feeling weak Your Diagnosis Failure to thrive in adult Cocaine abuse Hypomagnesemia Chronic kidney disease (CKD) COPD without exacerbation Diabetes Biventricular HF (heart failure, EF 20-30%) Pulmonary HTN, Severe Schizoaffective disorder, bipolar type Steatohepatitis (w/Stage III Fibrosis, Liver Biopsy 05/2012) Tests Performed Below is a partial list of the tests performed during your hospitalization. You may have had other tests and procedures not included in this list. Please discuss all test results with your provider. Acetaminophen Level Ammonia Venous Amphetamine Urine Screen Aspirin Level Barbiturate Urine Screen Basic Metabolic Panel Benzodiazepine Urine Screen BUN Calcium Ionized Calcium Level Cannabinoid Urine Screen CBC CBC w/ Differential Cocaine Urine Screen Comprehensive Metabolic Panel COVID-19 (2019 Novel Coronavirus) PCR Creatinine Electrolytes Ethanol Level FOLIC ACID Glucose Level GLUCOSE POC High??Sensitivity??Troponin T Lipase Magnesium Level Opiate Screen Urine Phosphorus Level ProBNP Syphilis Testing formerly ordered as RPR Troponin T, High Sensitivity TSH TSH with T4 Reflex (Adults Only) Urinalysis w/hold for Urine Culture VITAMIN B12 CT Head/Brain W/O Contrast XR Chest 2 Views Frontal and Lat Primary Care Provider Dario HAYDEN, Jaki Advance Directive Health Care Proxy on File Yes - Health Care Proxy Discharge Vitals Temperature: 97.7 DegF Height: 165.09 cm Pulse Rate: 71 bpm Weight: 79.8 kg Respiratory Rate: 16 br/min Body Mass Index:??29.28 kg/m2??High Systolic Blood Pressure: 127 mm Hg Body surface area: 1.91 Diastolic Blood Pressure:??88 mm Hg??High ?? Oxygen Saturation: 99 % ?? Studies Pending All tests and labs ordered during this hospital stay have been completed unless listed below. Please discuss all pending results with your provider listed above in these instructions. ?? No incomplete studies found What to do next Instructions From Your Doctor You are hospitalized due to??lack of support at home and??general weakness which likely was due to??your inability to get up and eat.?? You are found to have multiple electrolyte abnormalities which were corrected while you were here. ??Your??CT of your head did not show any acute abnormalities??and the blood work testing did not show any concerns about other causes for??altered mental status. ??Psychiatry saw you and thinks that psychiatry admission would be beneficial to you. ?? Thank you for letting us participate in your care. Discharge Orders Scheduled Follow-Up Appointments Tuesday 11:30 AM EDT ?? With: Sandra MARY, Rm Ruff Where: [facility] [address] [place] [id number]- Status: Pending You Need to Schedule the Following Appointments Follow Up with??Dario HAYDEN, Jaki When:??Within 2 to 5 weeks Why: We recommend that you follow-up with your primary care after your hospitalization. Where: [address] [place] [id number]- Discharge Medications AUSTINCARYL :1965 Visit Date:09/28/2022 Medications: Please continue your medications until treatment is completed or stopped by your provider. Medications not listed below should be discontinued. Discuss any questions related to medications with your provider. What How Much When Instructions Next Dose New Acetaminophen (acetaminophen 325 mg oral tablet) 650 Milligram Oral Every 4 hours as needed for Pain , Mild Temperature Greater than 100.5 ?? last dose 10/04/22 New Docusate-Senna (Docusate/ Senna Tablet) 1 tab(s) Oral Twice a day as needed for Constipation PRN as needed New Guaifenesin/ Dextromethorphan (Robitussin DM Liquid) 10 Milliliter Oral Every 4 hours as needed for Cough PRN as needed New Insulin Lispro (insulin lispro 100 u/ ml subcutaneous injection) 2-10 units Subcutaneous Injection 3 times a day before meals per sliding scale New Melatonin (melatonin 3 mg oral tablet) 3 Milligram Oral Daily at Bedtime as needed for Insomnia last dose 10/04/22 New Nicotine (Nicotine Gum) 2 Milligram Chew Every hour as needed for Other Nicotine Withdrawal Symptoms (NOT to exceed 24 pieces per day) ?? last dose 10/02/22 Unchanged Albuterol (albuterol 90 mcg/ inh inhalation powder) 2 puff(s) Inhalation Every 4 hours as needed for as needed PRN Wheezing ?? PRN as needed Unchanged Amlodipine (amLODIPine 5 mg oral tablet) 1 tab(s) Oral Daily 10/06/22 at 9am Unchanged Benztropine (benztropine 1 mg oral tablet) 0.5 tab(s) Oral Twice a day Duration: 30 Days 10/05/22 at 9pm Unchanged Carvedilol (carvedilol 3.125 mg oral tablet) 1 tab(s) Oral Twice a day 10/05/22 at 9pm Unchanged Clonidine (cloNIDine 0.1 mg oral tablet) 1 tab(s) Oral Daily at Bedtime 10/05/22 at 9pm Unchanged Durable Medical Equipment (Alcohol Wipes) See instructions Use when checking blood glucose levels TID. Diagnosis: Type II DM, ICD10 E11.9 ?? N/A Unchanged Durable Medical Equipment (Freestyle Lite Lancets) See instructions Use when checking blood glucose levels TID. Diagnosis: Type II DM, ICD10 E11.9 ?? N/A Unchanged Durable Medical Equipment (Freestyle Lite Monitor) See instructions Duration: 30 Days Use when checking blood glucose levels TID. Diagnosis: Type II DM, ICD10 E11.9 ?? N/A Unchanged Durable Medical Equipment (Freestyle Lite Test Strips) See instructions Use when checking blood glucose levels TID. Diagnosis: Type II DM, ICD10 E11.9 ?? N/A Unchanged Folic Acid (folic acid 1 mg oral tablet) 1 tab(s) Oral Daily 10/06/22 at 9am Unchanged Furosemide (furosemide 20 mg oral tablet) 1 tab(s) Oral Daily 10/06/22 at 9am Unchanged Insulin Glargine (Lantus Solostar Pen 100 units/ mL subcutaneous solution) 6 unit(s) Subcutaneous Injection Daily in the morning 10/06/22 at 9am Unchanged Lactulose (lactulose 10 gm/ 15 ml oral syrup) 30 Milliliter Oral Twice a day 10/05/22 at 9pm Unchanged Multivitamin (multivitamin Multiple Vitamins oral tablet) 1 tab(s) Oral Daily 10/06/22 at 9am Unchanged Pancrelipase (Creon 12,000 units oral delayed release capsule) 1 capsule Oral 3 times a day resume home dose Unchanged Pantoprazole (pantoprazole 40 mg oral delayed release tablet) 1 tab(s) Oral Daily 10/06/22 at 9am Unchanged Risperidone (risperiDONE 2 mg oral tablet) 1 tab(s) Oral Daily in the morning Duration: 30 Days 10/06/22 at 9am Unchanged Risperidone (risperiDONE 3 mg oral tablet) 1 tab(s) Oral Daily at Bedtime 10/05/22 at 9pm Unchanged Thiamine (thiamine 100 mg oral tablet) 1 tab(s) Oral Daily Duration: 30 Days 10/06/22 at 9am Unchanged Tiotropium (tiotropium 2.5 mcg/ inh inhalation aerosol) 2 puff(s) Inhalation Daily Duration: 30 Days 10/06/22 at 9am Unchanged Trazodone (traZODone 50 mg oral tablet) 1 tab(s) Oral Daily at Bedtime Duration: 30 Days 10/05/22 at 9pm Test Results Below is a partial list of the most recent Laboratory test results done prior to this discharge. You may have had other tests and procedures not included in this list. Please discuss all test resultswith your provider. Est Creatinine Clearance - 79.78 mL/min (10/01/2022) Acetaminophen Level (09/28/2022) ? ?Acetaminophen Level - <5 mg/L Ammonia Venous (09/30/2022) ???Ammonia, Venous - 28 ??mole/L Amphetamine Urine Screen (09/28/2022) ???Amphetamine Screen, Urine - NONE DETECTED Aspirin Level (09/28/2022) ? ?Salicylate Level - <0.3 mg/dL Barbiturate Urine Screen (09/28/2022) ???Barbiturate Screen, Urine - NONE DETECTED Basic Metabolic Panel (10/01/2022) ???Sodium - 135 mmol/L???Potassium - 4.2 mmol/L???Chloride - 96 mmol/L???Bicarbonate Level - 27 mmol/L???Anion Gap - 12???Glucose Level - 160 mg/dL???BUN - 5 mg/dL???Creatinine-Blood - 0.7 mg/dL???Estimated GFR Creatinine - 96 ML/MIN/1.73 M2???Calcium - 9.3 mg/dL Benzodiazepine Urine Screen (09/28/2022) ???Benzodiazepine Screen, Urine - NONE DETECTED BUN (09/30/2022) ???BUN - 6 mg/dL Calcium Ionized (09/28/2022) ???Calcium, Ionized pH Corrected - 1.22 mmol/L Calcium Level (09/30/2022) ???Calcium - 9.1 mg/dL Cannabinoid Urine Screen (09/28/2022) ???Cannabinoid Screen, Urine - NONE DETECTED CBC (10/01/2022) ???WBC - 8.6 k/mm3???RBC - 3.56 m/mm3???Hgb - 11.5 Gm/dL???Hct - 33.7 %???MCV - 94.7 femtoliters???MCH - 32.3 pg???MCHC - 34.1 g/dL???Platelet Count - 451 k/mm3???RDW-SD - 46.2 femtoliters???MPV - 10.2 femtoliters???Nucleated RBC (Automated) - 0.0 #/100 WBC'S???Abs. NRBC - 0.0 k/mm3 CBC w/ Differential (09/28/2022) ???WBC - 9.2 k/mm3???RBC - 3.72 m/mm3???Hgb - 11.8 Gm/dL???Hct - 34.0 %???MCV - 91.4 femtoliters???MCH - 31.7 pg???MCHC - 34.7 g/dL???Platelet Count - 426 k/mm3???RDW-SD - 42.4 femtoliters???MPV - 10.3 femtoliters???Nucleated RBC (Automated) - 0.0 #/100 WBC'S???Abs. NRBC - 0.0 k/mm3???Abs. Neut - 3.7 k/mm3???Abs. Lymph - 4.1 k/mm3???Abs. [place] - 1.3 k/mm3???Abs. Eo - 0.1 k/mm3???Abs. Baso - 0.0 k/mm3???Neut % - 39.8 %???Lymph % - 44.6 %???[place] % - 14.4 %???Eos % - 0.9 %???Baso % - 0.2 %???RBC Morphology - MODERATE???Platelet Estimate - ADEQUATE???Imm Gran - 0.1 %???Abs. Imm Gran - 0.0 k/mm3 Cocaine Urine Screen (09/28/2022) ???Cocaine Metabolite Screen, Urine - POSITIVE Comprehensive Metabolic Panel (09/28/2022) ???Sodium - 127 mmol/L???Potassium - 3.2 mmol/L???Chloride - 87 mmol/L???Bicarbonate Level - 26 mmol/L???Anion Gap - 14???Glucose Level - 105 mg/dL???BUN - 6 mg/dL???Creatinine-Blood - 1.0 mg/dL???Estimated GFR Creatinine - 70 ML/MIN/1.73 M2???Calcium - 9.5 mg/dL???Protein, Total - 6.8 Gm/dL???Albumin - 3.9 Gm/dL???AG Ratio - 1.3???Alkaline Phosphatase - 162 units/L???AST (SGOT) - 27 units/L???ALT (SGPT) - 14 units/L???Bilirubin, Total - 0.5 mg/dL COVID-19 (2019 Novel Coronavirus) PCR (09/28/2022) ???COVID-19 PCR Specimen Source - NASAL???COVID-19 PCR Result - NEGATIVE Creatinine (09/30/2022) ???Creatinine-Blood - 0.8 mg/dL???Estimated GFR Creatinine - 86 ML/MIN/1.73 M2 Electrolytes (09/30/2022) ???Sodium - 136 mmol/L???Potassium - 4.3 mmol/L???Chloride - 97 mmol/L???Bicarbonate Level - 28 mmol/L???Anion Gap - 11 Ethanol Level (09/28/2022) ???Ethanol, Serum or Plasma - NONE DETECTED FOLIC ACID (09/30/2022) ???Folic Acid Level - 36.4 ng/mL Glucose Level (09/30/2022) ???Glucose Level - 140 mg/dL GLUCOSE POC (10/05/2022) ???Glucose, POC - 99 mg/dL High??Sensitivity??Troponin T (09/28/2022) ???High Sensitivity Troponin (HSTnT) - 8 ng/L Lipase (09/28/2022) ???Lipase - 9 units/L Magnesium Level (09/30/2022) ???Magnesium - 1.7 mg/dL Opiate Screen Urine (09/28/2022) ???Opiate Screen, Urine - NONE DETECTED Phosphorus Level (09/30/2022) ???Phosphorus - 3.3 mg/dL ProBNP (09/28/2022) ???Nt-Probnp - 193 pg/mL Syphilis Testing formerly ordered as RPR (09/30/2022) ???Syphilis Interpretation - Indicative of the absence of infection with Treponemal pallidum. Test???Syphilis Screen by NATHAN - NEGATIVE???RPR Titer Result - NOT INDICATED???TP-PA Result - NOT INDICATED Troponin T, High Sensitivity (09/28/2022) ???High Sensitivity Troponin (HSTnT) - 8 ng/L TSH (09/30/2022) ???TSH - 0.53 uIU/mL TSH with T4 Reflex (Adults Only) (09/28/2022) ???TSH - 0.44 uIU/mL Urinalysis w/hold for Urine Culture (09/28/2022) ???Appear/Color, Urine - LIGHT YELLOW???Specific Buckley, Urine - 1.007???pH, Urine - 6.0???Albumin, Urine - NEGATIVE???Glucose, Urine - NEGATIVE???Ketones, Urine - NEGATIVE???Bilirubin, Urine - NEGATIVE???Hemoglobin, Urine - NEGATIVE???Nitrite, Urine - NEGATIVE???Leukocyte, Urine - NEGATIVE???Urobi linogen - NORMAL? ?WBC's, Urine - 1 /HPF? ?RBC's, Urine - <1 /HPF? ?Squamous Epith - 2 /HPF? ?Mucus - SLIGHT???Hold Urine Culture - Testing available 48 hours from time of collection. VITAMIN B12 (09/30/2022) ???Vitamin B12 Level - 1295 pg/mL Allergies (NKA means No Known Allergies) NSAIDs [...] Educational Leaflet Providered with your Discharge Instructions. Zones Living Smoke Free?? Melatonin Oral Tablet?? Acetaminophen Oral Tablet?? Insulin Lispro Injectable Solution?? Risperidone Oral Tablet?? Hypokalemia?? Discharge Instructions for Hypomagnesemia?? Hyponatremia?? Altered Level of Consciousness?? Weakness with Uncertain Cause?? Depression: Tips to Help Yourself?? Depression?? Valuables and Belongings I fully understand and agree that [facility] accepts no responsibility for all my personal [...] Review of Valuable and Belonging List: With witness Disposition of Belongings: Valuables Locked Date for Pt to Sign Valuables/Belongings: 09/29/22 18:46:00 ?? Other Discharge Information ? Pulmonary Rehab Status?? Pulmonary Rehab Discharge Status?? Respiratory Rate: 16 br/min ? Common Emergency Awareness Tips IS [...] are strongly encouraged to quit. Please call [employer] Link at [phone] or [phone] ([phone]) or log in to [email or web address] for referrals to smoking cessation programs. ?? 154 Suicide & Crisis Lifeline is available 11/10 if you or someone you know needs to find a reason to keep living. By calling 988 you'll be connected to a skilled, trained counselor at a crisis center in your area. INPATIENT DISCHARGE INSTRUCTIONS SIGNATURE PAGE CARYL AVILA Location:[facility] Registration Date and Time:09/28/2022 17:15 EDT Primary Care Physician: Dario HAYDEN, Jaki, Attending Physician: Dwain HAYDEN, Pinky, I AUSTIN CARYL, have received the above patient education materials/instructions and have verbalized understanding. If ambulance or transport services are being used I further acknowledge being given a choice of service. ?? If you need to contact me, please call me at this number: . Patient/Director Of Labor Relations Name: Patient/Director Of Labor Relations Signature: Relationship to Patient: Witness Name/Signature: Date: * Naomy Escoto RN: PERFORM Event Display: Patient Education Leaflets Authored Date: [id number] Zones Living Smoke Free ?? 415 ? LIVING SMOKE FREE ?? Smoking is one of the hardest habits to break.?? It takes most smokers 5-6 tries before they finally quit. So, don???t give up.?? Millions of people have given up smoking and so can you! The benefits of quitting start right away and keep improving the longer you go without smoking: ? Improve your ability to breathe without coughing or shortness of breath ? Reduce your risk of lung cancer, heart disease, chronic lung disease ? Have more money in your pocket ? Have whiter teeth, fewer wrinkles and softer skin ? Have better smelling hair, breath, clothes, home and car ? Improve your sense of taste and smell TRIGGERS TO SMOKING RELAPSE KNOW WHY YOU SMOKE AND WHAT YOUR SMOKING TRIGGERS ARE.?? WRITE YOUR TRIGGERS DOWN AND LOOK AT THEM OFTEN. Understand or identify your personal triggers. Some triggers may include: ? Drinking or socializing ? Being around smoking and/or smokers ? After a meal or work break time ? In the car stressful situations or boredom or loneliness ? When you wake up DEVELOP COPING SKILLS DEVELOP AND USE COPING SKILLS. Quitting smoking is a big change.?? People will congratulate you and you have the right to be proud?? But at times you may miss smoking, so plan ahead to resist temptation. ? Ask for the support of your family and friends.?? Call a friend when you want to smoke. ? Avoid people or places that can trigger you to smoke.?? Ask others not to smoke around you. ? Spend time in places where you can???t smoke, such as a restaurant. ? Surround yourself with non-smokers. ? Remind yourself why you quit.?? Stop yourself from ???just one more?? . ? Recognize triggers and find a way to cope. ? Change your habits; go for a walk after meals instead of smoking. ? Save the cigarette money and reward yourself. ? Exercise every day.?? This will reduce stress, improve your mood and keep weight stable or at a loss. ? INFORMATION ABOUT QUITTING GET SUPPORT. ?? Support programs can make an important difference, especially for the heavy smoker. ? QUITEternoGen: Fax referrals to: http://quitworks.[facility] centertory.org/ ? [place] Smokers??? Helpline: ? [place]: 1 (800) Quit-Now ( ) ? [place]an: 1 (042) -8-D??antwon ( ) ? Quit Tips Line (24 hour recorded messages): www.OrganizedWisdom.Remotemedical (quit smoking information & local quit smoking support programs) ? SMOKING CESSATION RESOURCES Hospital Based Programs: Contact: [facility] ([place]) or [phone], ext. [phone] Acupuncture: ?? Acupuncture Center [facility] ([place]) Acupuncture Center [facility] ([place]) Traditional Acupuncture ([place]) Hypnosis: ?? [place] [facility] ([place]) Additional Resources: ?? [place] [employer] Association ([facility]) ([place]) [place] [employer] Association Tobacco Quit-Line 1-[facility] ( ); www.lungusa.org Deaf or Hearing Impaired 1 (800) ??? TDD - 0828 [place] [employer] 800) UPC-2344; www.cancer.org [place] [employer] ; www.americanheart.org Try to Stop www.trytostop.org [facility] www.nationaljewish.org Tobacco Free Initiative: World Health Organization www.who.int/melissa [place] Smokers Helpline [place]an: 1 (800) Quit-Now( ) [place]an: 1 (551) -8-D??antwon ( ) ?? [employer] Fax referrals to: http://quitworks.[facility].org/ [facility] Start to Stop Program Check with your nearest [employer] ?? SMOKING CESSATION OPTIONS Acupuncture: ?? Flexible needles inserted into the skin to reduce the side effects of nicotine withdrawal. ?? Behavior Modification Program: ?? Helps you to understand your smoking history, reasons for smoking, set a target date to quit and plan how to resist the urge to smoke. ?? Hypnosis: ?? Hypnosis can help strengthen your motivation and reduce cravings for nicotine. ?? Nicotine Replacement Therapy (NRT): ?? Provides nicotine to help reduce the craving for nicotine and other withdrawal symptoms.?? This therapy can be provided by: ? Nicotine gum ? Nicotine inhalation device ? Nicotine lozenge ? Nicotine patch ?? Prescription Medications: bupropion sr (wellbutrin or zyban) or varenicline (chantix) ? * Naomy Escoto RN: PERFORM Event Display: Patient Education Leaflets Authored Date: [id number] Melatonin Oral Tablet ?? [address] Melatonin Oral Tablet Uses No information is available. ?? Instructions This medicine may be taken with or without food. Take the medicine 1-2 hours before going to bed. Keep the medicine at room temperature. Avoid heat and direct light. If you take your medicine only at bedtime, do not take a missed dose in the morning. Tell your doctor and pharmacist about all your medicines. Include prescription and aevs-bym-gvwhlxusmhewmfto, vitamins, and herbal medicines. ?? Cautions Tell your doctor and pharmacist if you ever had an allergic reaction to a medicine. Do not use the medication any more than instructed. If possible, avoid using with marijuana or other medicines that can cause dizziness or drowsiness. These include allergy/cold products, muscle relaxers, sleep aids, and pain relievers. Tell the doctor or pharmacist if you are , planning to be , or . ?? Side Effects The following is a list of some common side effects from this medicine. Please speak with your doctor about what you should do if you experience these or other side effects. ??? dizziness or drowsiness ??? bad dreams ??? headaches ??? nausea ??? vivid dreams or nightmares Call your doctor or get medical help right away if you notice any of these more serious side effects: ??? depression or feeling sad A few people may have an allergic reaction to this medicine. Symptoms can include difficulty breathing, skin rash, itching, swelling, or severe dizziness. If you notice any of these symptoms, seek medical help quickly. ?? Extra Please speak with your doctor, nurse, or pharmacist if you have any questions about this medicine. ?? [email or web address]rapeutics/[email or web address]/[email or web address] IMPORTANT NOTE: This document tells you briefly how to take your medicine, but it does not tell youall there is to know about it. Your doctor or pharmacist may give you other documents about your medicine. Please talk to them if you have any questions. Always follow their advice. There is a more complete description of this medicine available in [place]ankan. Scan this code on your smartphone or tablet or use the web address below. You can also ask your pharmacist for a printout. If you have any questions, please ask your pharmacist. The display and use of this drug information is subject to Terms of Use. Copyright(c) 2022 [employer]. ?? [employer]. All rights reserved. This information is not intended as a substitute for professional medical care. Always follow your healthcare professional's instructions. ?? * Naomy Escoto RN: PERFORM Event Display: Patient Education Leaflets Authored Date: Acetaminophen Oral Tablet ?? 95754-2 Acetaminophen Oral Tablet Brands: Anacin AF, Cetafen, CounterAct Pain, Mapap, Panadol, Pharbetol, Ringl, Tactinal, Tycolene, Tylenol, Un-Aspirin Uses This medicine is used for the following purposes: ??? fever ??? pain ?? Instructions This medicine may be taken with or without food. Store at room temperature away from heat, light, and moisture. Do not keep in the bathroom. Drug interactions can change how medicines work or increase risk for side effects. Tell your healthcare providers about all medicines taken. Include prescription and icif-glp-fkvslse medicines, vitamins, and herbal medicines. Speak with your doctor or pharmacist before starting or stopping any medicine. Tell your doctor if symptoms do not get better or if they get worse. You may stop using this medicine if you no longer have symptoms. ?? Cautions Tell your doctor and pharmacist if you ever had an allergic reaction to a medicine. Do not use the medication any more than instructed. Do not drink beverages with alcohol while on this medicine. Tell the doctor or pharmacist if you are , planning to be , or . This medicine contains acetaminophen. There are many medicines with acetaminophen. Taking these medicines together can cause you to get too much acetaminophen. This can cause serious liver problems. Look carefully on the package of all your medicines to see if acetaminophen is included. Ask your pha rmacist which medicines you can take safely. ?? Side Effects If you have any of the following side effects, you may be getting too much medicine. Please contactyour doctor to let them know about these side effects. ??? signs of liver damage (such as yellowing of eye or skin, dark urine, or unusual tiredness) This medicine usually has no side effects. A few people may have an allergic reaction to this medicine. Symptoms can include difficulty breathing, skin rash, itching, swelling, or severe dizziness. If you notice any of these symptoms, seek medical help quickly. ?? Extra Please speak with your doctor, nurse, or pharmacist if you have any questions about this medicine. ?? [email or web address]/fdbpem/9 IMPORTANT NOTE: This document tells you briefly how to take your medicine, but it does not tell youall there is to know about it. Your doctor or pharmacist may give you other documents about your medicine. Please talk to them if you have any questions. Always follow their advice. There is a more complete description of this medicine available in [place]an. Scan this code on your smartphone or tablet or use the web address below. You can also ask your pharmacist for a printout. If you have any questions, please ask your pharmacist. The display and use of this drug information is subject to Terms of Use. Copyright(c) 2022 [employer]. ?? [employer] [place]. All rights reserved. This information is not intended as a substitute for professional medical care. Always follow your healthcare professional's instructions. ?? Patient Care team information Care Team Personnel Name: Lawrence Hendrix Position: [facility] RN Supv Member Role: Primary Care Nurse Name: Rufino Lloyd RN Position: S RN Member Role: Primary Care Nurse Name: Cristina Carpenter RN Position: S RN Member Role: Primary Care Nurse Name: Rosette Noriega RN Position: [facility] SN RN Member Role: Primary Care Nurse Name: Mary Hidalgo RN Position: [facility] AMB Nurse Member Role: Primary Care Nurse Name: Sissy Duran RN Position: [facility] AMB Nurse Member Role: Primary Care Nurse Name: Rohit Zavaleta RN Position: [facility] RN Member Role: Primary Care Nurse Name: Erlinda Hartman NP Position: [facility] Associate Professional Member Role: Primary Care Nurse Address: Address: [address] [place] [id number] Name: Shante Solis RN Position: [facility] RN Member Role: Primary Care Nurse Name: Joshau Prakash RN Position: [facility] RN Member Role: Primary Care Nurse Name: Bettie Vanegas RN Position: [facility] SN RN Member Role: Primary Care Nurse Name: Jay Marroquin RN Position: [facility] RN Member Role: Primary Care Nurse Name: Adrianna Church RN Position: [facility] RN Member Role: Primary Care Nurse Name: Sue Purdy RN Position: [facility] RN Member Role: Primary Care Nurse Name: Hector Perez RN Position: [facility] RN Member Role: Primary Care Nurse Name: Aleena Vizcaino RN Position: [facility] RN Member Role: Primary Care Nurse Name: Kacey Wilhelm RN Position: [facility] RN Member Role: Primary Care Nurse Name: Leslie Malloy RN Position: [facility] RN Member Role: Primary Care Nurse Name: Yesenia Hu LPN Position: [facility] RN Member Role: Primary Care Nurse Name: Joaquina Herrera RN Position: [facility] RN Member Role: Primary Care Nurse Name: Diego Bell RN Position: [facility] RN Member Role: Primary Care Nurse Name: Ese Grey Position: [facility] RN Member Role: Primary Care Nurse Name: Chela Najera RN Position: [facility] RN Member Role: Primary Care Nurse Name: Tootie Gonzalez RN Position: [facility] RN Member Role: Primary Care Nurse Name: Nancy Monte RN Position: [facility] [facility] RN Member Role: Primary Care Nurse Name: Marilee Starkey Position: [facility] RN Member Role: Primary Care Nurse Name: Silvina Dodd RN Position: [facility] RN Member Role: Primary Care Nurse Name: Flaco Clifford DO Position: [facility] Renal MD Member Role: Lifetime Consulting Physician Address: Address: [address] [place], [place] [address] [place], [place] [address]RUST Name: Marilee Richardson RN Position: [facility] RN Member Role: Primary Care Nurse Name: Rufino Johnson RN Position: [facility] RN Member Role: Primary Care Nurse Name: Judson Larry Position: [facility] RN Member Role: Primary Care Nurse Name: Jovita Camargo RN Position: [facility] RN Member Role: Primary Care Nurse Name: Bruna Pizarro Position: [facility] RN Member Role: Primary Care Nurse Name: Ju Zhu Position: [facility] RN Member Role: Primary Care Nurse Name: Ester Palomares Position: [facility] RN Member Role: Primary Care Nurse Name: Emma Colbert RN Position: [facility] RN Supv Member Role: Primary Care Nurse Name: Hallie Gambino RN Position: [facility] Onco RN Member Role: Primary Care Nurse Name: Maya Ambriz RN Position: [facility] RN Member Role: Primary Care Nurse Name: Bhavna Rendon LPN Position: [facility] RN Member Role: Primary Care Nurse Name: Luis Burton RN Position: [facility] RN Member Role: Primary Care Nurse Name: Jaki Bishop MD Position: [facility] Physician - Primary Care Member Role: PCP Address: Address: [address] [place] [address]- [place] Name: Lucian Krause RN Position: [facility] RN Member Role: Primary Care Nurse Name: ZacharyXin Brisenoorah Position: [facility] RN Member Role: Primary Care Nurse Name: Isaiah Combs RN Position: [facility] RN Member Role: Primary Care Nurse Name: Leslie Ward RN Position: [facility] RN Member Role: Primary Care Nurse Name: Jacki Gomes RN Position: [facility] RN Member Role: Primary Care Nurse Name: Derek Smith RN Position: [facility] RN Member Role: Primary Care Nurse Name: Mar Brothers RN Position: [facility] RN Member Role: Primary Care Nurse Name: Ivette Shankar RN Position: [facility] RN Supv Member Role: Primary Care Nurse Name: Laura Mary RN Position: [facility] SN RN Member Role: Primary Care Nurse Name: Mary Guillen RN Position: [facility] RN Member Role: Primary Care Nurse Name: Octavio Box RN Position: [facility] RN Member Role: Primary Care Nurse Name: Nazia Tapia RN Position: [facility] RN Member Role: Primary Care Nurse Name: Pat Jackson RN Position: [facility] RN Member Role: Primary Care Nurse Name: Caren Hernandez RN Position: [facility] RN Supv Member Role: Primary Care Nurse Name: Perri Bryant RN Position: [facility] RN Member Role: Primary Care Nurse Name: Nely Wong RN Position: [facility] RN Member Role: Primary Care Nurse Name: Erica Brandon RN Position: [facility] RN Member Role: Primary Care Nurse Name: Adrianna Gonzalez RN Position: [facility] RN Member Role: Primary Care Nurse Name: Annmarie Feldman RN Position: [facility] PCO w/OE and EZ Script Member Role: Primary Care Nurse Name: Chinyere Espinoza RN Position: [facility] RN Member Role: Primary Care Nurse Name: Teresita Diallo RN Position: [facility] RN Member Role: Primary Care Nurse Name: Tennille Mcgarry RN Position: [facility] Hospital Compliance Vice President Member Role: Primary Care Nurse Name: Vicky Salazar RN Position: [facility] RN Member Role: Primary Care Nurse Name: Spencer Jameson RN Position: [facility] RN Member Role: Primary Care Nurse Name: Jalen Mullins Position: [facility] RN Member Role: Primary Care Nurse Name: Maureen URBINA Attending Position: [facility] ED Medicine MD Name: Perri Burks RN Position: [facility] ED RN W/OE and Tasks Member Role: Patient Care Provider Name: Chela Blue Position: [facility] ED OA Charge Member Role: ED Associate Name: Sharon Gracia Position: [facility] ED TA [facility] Member Role: Chief Executive Officer Name: Gianna Hay RN Position: [facility] ED RN W/OE and Tasks Member Role: Patient Care Provider Care Team Related Persons Name: MARYANNE WILL Address: home [address] [place] [address] Name: MARYANNE WILL Address: home [address] [address] Name: MARYANNE WILL JR Address: home [address] [place] [address] Name: GEORGIA WILL Address: [place] [address] Name: BALDEV POLANCO Address: [place] [address]
--- OUTSIDE RECORDS SUMMARY | 2023-02-09 22:43 | XMS_ITS | Continuity of Care Document ---
Author Name Unknown Organization [facility] Address [address] [place] [address]- Care Team Providers Care Tiller Worker Name Role Phone Jaki Bishop MD Primary Care Physician [facility]counter [facility] Date(s): 12/29/20 - 01/28/[address] [address]- Allergies, Adverse Reactions, Alerts Substance Reaction Severity [...] to COVID vaccine 2Admin Note: VIS GIVEN [id number] 3Admin Note: VIS GIVEN 2008-12 4Admin Note: vis 5Admin Note: vis 02/06/08 Medications acetaminophen 325 mg oral tablet 650 mg, By Mouth, Every 6 hours, PRN, /Headache, Refills 0, Maintenance, Pain , Mild, 09/26/20 21:44:00 EDT, Partial fill upon patient request if the prescription is for a schedule II opioid drug. Start Date: 09/26/20 Status: Ordered Alcohol Wipes See Instructions, # 100 each, Refills 11, Tot. Refills 11, Maintenance, Use when checking blood glucose levels or administer insulin. Diagnosis: Type II DM, ICD10 E11.9, 01/23/21 19:31:00 EDT, Compound, 167.64, cm, 11/27/20 22:30:00 EDT, Height, 98.5,... Start Date: 01/23/21 Status: Ordered benztropine 0.5 mg oral tablet 0.5 mg, 1, tablet, By Mouth, 2 times a day, # 60 tablet, Refills 0, Tot. Refills 0, Maintenance, 11/28/20 9:27:00 EDT, Route to Pharmacy Electronically, [facility], Partial fill upon patient request if the prescription is for a schedule... Start Date: 11/28/20 Status: Ordered Cane See Instructions, # 1 each, Maintenance, [id number], includes canes of all materials, adjustable orfixed, with tip, 11/28/20 9:32:00 EDT, Supply, 167.64, cm, 11/27/20 22:30:00 EDT, Height, 98.5, kg,10/22/20 17:50:00 EDT, Dry Weight Start Date: 11/28/20 Status: Ordered clozapine 100 mg oral tablet 1 tablet = 100 mg, By Mouth, 2 times a day, # 60 tablet, 0 Refills, Maintenance, 11/28/20 9:20:00 EDT, Tablet, [facility], Partial fill upon patient request if the prescription is for aschedule II opioid drug., 167.64, cm, 11/27/20 22:3... Start Date: 11/28/20 Status: Ordered Coreg 12.5 mg oral tablet 12.5 mg, 1, tablet, By Mouth, 2 times a day, # 60 tablet, Refills 0, Tot. Refills 0, Maintenance, 11/28/20 9:20:00 EDT, Route to Pharmacy Electronically, [facility], Partial fill upon patient [...] Date: 01/27/21 Stop Date: 04/27/21 Status: Ordered Lantus Solostar Pen 100 units/mL subcutaneous solution = 10 units, Subcutaneous Infusion, Daily, Discontinue Basaglar, # 12 mL, 5 Refills, Maintenance, 01/22/21 18:45:00 EDT, [id number], Partial fill upon patient request if the prescription is for a schedule II opioid drug., 167.64, cm, 0... Start Date: 01/22/21 Stop Date: 07/21/21 Status: Ordered loratadine 10 mg oral tablet 10 mg, 1, tablet, By Mouth, Daily, # 30 tablet, Refills 0, Tot. Refills 0, Maintenance, 11/28/20 9:25:00 EDT, Route to Pharmacy Electronically, [facility], Partial fill upon patient [...] a day, # 60 tablet, 0 Refills, [facility], 167.64, cm, 11/27/20 22:30:00 EDT, Height, 98.5, kg, 10/22/20 17:50:00 EDT, Dry Weight Start Date: 01/08/21 Status: Ordered Nicotine 2 mg gum = 2 mg, Chew, Every 2 hours, PRN Other, for 6 week(s), Nicotine Cravings, # 40 each, 1 Refills, Acute 02/20/21 9:25:00 EST, 11/28/20 9:25:00 EDT, Gum, [facility], Partial fill upon patient request if the prescription is for a schedule II... Start Date: 11/28/20 Stop Date: 02/20/21 Status: Ordered pancrelipase 10,000 units-32,000 units-42,000 units oral delayed release capsule 1 capsule, By Mouth, 3 times a day, with each meal and snack, # 90 capsule, 0 Refills, Maintenance,11/28/20 9:26:00 EDT, CR Capsule, [facility], Partial fill upon patient [...] Date: 11/28/20 Stop Date: 01/27/21 Status: Ordered Pen [place], 31 G x 8 mm BD Ultra Fine III See Instructions, # 100 each, Refills 11, Tot. Refills 11, Maintenance, Use to administer insulin. Diagnosis Type II DM, E11.65, 01/23/21 19:30:00 EDT, Supply, 167.64, cm, 11/27/20 22:30:00 EDT, Height, 98.5, kg, 10/22/20 17:50:00 EDT, Dry Weight Start Date: 01/23/21 Status: Ordered sodium chloride 0.65% nasal spray 2 sprays, Naris, Right, 4 times a day, PRN Other, dryness, # 1 each, 0 Refills, Maintenance, 11/28/20 9:27:00 EDT, Nasal [place], [facility], Partial fill upon patient request if the prescription is for a schedule II opioid drug., 2 sprays... Start Date: 11/28/20 Stop Date: 12/28/20 Status: Ordered torsemide 20 mg oral tablet 1 tablet = 20 mg, By Mouth, Daily, # 30 tablet, 0 Refills, Maintenance, 11/28/20 9:27:00 EDT, Tablet, [facility], Partial fill upon patient [...] Active H/O tubal ligation(Confirmed) Active BHN/BH CP Housekeeper Home/Janet Pandey [phone](Confirmed) Active History of cholecystectomy(Confirmed) Active Hypertension(Confirmed) Active [...]
--- OUTSIDE RECORDS SUMMARY | 2023-02-09 22:43 | XMS_ITS | Continuity of Care Document ---
Author Name Unknown Organization [facility] Address [address] [place] [address]- Care Team Providers Care Log Truck Driver Name Role Phone Jaki Bishop MD Primary Care Physician [place] [facility] [place] 10/19[place] - 12/04/[address] [address]- Attending Physician: Jaki Bishop MD Admitting Physician: [...] to COVID vaccine 2Admin Note: VIS GIVEN [id number] 3Admin Note: VIS GIVEN 2008- 4Admin Note: vis 5Admin Note: vis 02/06/08 Medications Abilify 10 mg oral tablet 10 mg, 1, tablet, By Mouth, Daily, # 90 tablet, Refills 3, Tot. Refills 3, Maintenance, 07/07/21 8:56:00 EDT, Route to Pharmacy Electronically, [place], [place] - [id number], Partialfill upon patient request if the prescription [...] to Pharmacy Electronically, [facility] [id number], Partial fill upon patient request if the prescri... Start Date: 07/07/21 Status: Ordered Comfort EZ Pen [place] 31 gauge x 5/16 USE TO inject insulin 4 (FOUR) TIMES DAILY Start Date: 07/03/21 Status: Ordered Coreg 6.25 mg oral tablet 6.25 mg, 1, tablet, By Mouth, 2 times a day, # 180 tablet, Refills 3, Tot. Refills 3, Maintenance, 07/07/21 8:56:00 EDT, Route to Pharmacy Electronically, [facility] [id number], Partial fill upon patient request if the prescri... Start Date: 07/07/21 Status: Ordered Daily Multiple Vitamins oral tablet 1 tablet, By Mouth, Daily, # 90 tablet, 3 Refills, Maintenance, 07/07/21 8:56:00 EDT, Tablet, [facility] [id number], Partial fill upon patient request if the prescription is for a schedule II opioid drug., 1 tablet By Mouth Da... Start Date: 07/07/21 Status: Ordered divalproex sodium 250 mg oral enteric coated tablet 1 tablet = 250 mg, By Mouth, Daily in AM, # 90 tablet, 3 Refills, Maintenance, 07/07/21 8:56:00 EDT, Tablet, [facility] [id number], Partial fill upon patient request if the prescription is for a schedule II opioid drug., 167,... Start Date: 07/07/21 Status: Ordered divalproex sodium 500 mg oral enteric coated tablet 1 tablet = 500 mg, By Mouth, Daily at bedtime, # 90 tablet, 3 Refills, Maintenance, 07/07/21 8:56:00 EDT, Tablet, [facility] [id number], Partial fill upon patient request if the prescription is for a schedule II opioid drug.,... Start Date: 07/07/21 Status: Ordered Eucerin Unscented topical lotion See Instructions, Apply daily as directed to dry skin. 16 oz, # 1 each, 3 Refills, Maintenance, 07/07/21 9:02:00 EDT, [place], [place] - [id number], Partial fill upon patient requestif the prescription is for a schedule II opioid drLitzy.. Start Date: 07/07/21 Status: Ordered folic acid 1 mg oral tablet 1 mg, 1, tablet, By Mouth, Daily, # 30 tablet, Refills 1, Tot. Refills 1, Maintenance, 10/21/21 12:44:00 EDT, Route to Pharmacy Electronically, [place], [place] - [id number], Partialfill upon patient request if the prescription [...] to Pharmacy Electronically, [facility] [id number], Partial fill upon patient request if the p... Start Date: 07/07/21 Status: Ordered gabapentin 100 mg oral capsule 200 mg, 2, capsule, By Mouth, Daily at bedtime, # 180 capsule, Refills 3, Tot. Refills 3, Maintenance, 07/07/21 8:56:00 EDT, Route to Pharmacy Electronically, [facility] [id number], Partial fill upon patient request if the pre... Start Date: 07/07/21 Status: Ordered guaiFENesin 100 mg/5 mL oral liquid 5 mL = 100 mg, By Mouth, Every 4 hours, PRN for cough, # 300 mL, 0 Refills, Acute 07/07/22 9:05:00 EDT, 07/07/21 9:02:00 EDT, Liquid, [place], [place] - [id number], Partial fill uponpatient request if the prescription [...] a day, # 581 mL, 3 Refills, [facility], 10, TAKE 30mls BY MOUTH 2 (two) times a day, 167, cm, 07/07/21 8:39:00 EDT, Height, 95.6, kg, 06/29/21 18:39:00 EDT, Dry Weight Start Date: 08/10/21 Status: Ordered Lantus Solostar Pen 100 units/mL subcutaneous solution = 16 units, Subcutaneous Infusion, Daily, # 15 mL, 5 Refills, Maintenance, 09/11/21 17:25:00 EDT, [facility] [id number], Partial fill upon patient request if the prescriptionis for a schedule II opioid drug., 167, cm, ... Start Date: 09/11/21 Status: Ordered loratadine 10 mg oral tablet 10 mg, 1, tablet, By Mouth, Daily, # 90 tablet, Refills 3, Tot. Refills 3, Maintenance, 07/07/21 8:56:00 EDT, Route to Pharmacy Electronically, [facility] [id number], Partialfill upon patient request if the prescription is fo... Start Date: 07/07/21 Status: Ordered magnesium oxide 400 mg oral tablet 1 tablet = 400 mg, By Mouth, 2 times a day, # 180 tablet, 3 Refills, Maintenance, 07/07/21 8:56:00 EDT, Tablet, [facility] [id number], Partial fill upon patient request if the prescription is for a schedule II opioid drug., 16... Start Date: 07/07/21 Status: Ordered melatonin 3 mg oral tablet 1 tablet = 3 mg, By Mouth, Daily at bedtime, PRN Insomnia, # 90 tablet, 3 Refills, Maintenance, 07/07/21 8:56:00 EDT, Tablet, [facility] [id number], Partial fill upon patientrequest if the prescription is for a schedule II op... Start Date: 07/07/21 Status: Ordered Narcan 4 mg/0.1 mL nasal spray = 4 mg, Naris, Left, Once, may repeat every 2 to 3 minutes until patient responds. PRN opioid overdose, # 2 each, 0 Refills, Soft Stop, 11/27/21 19:25:00 EDT, [facility] [id number], Partial fill upon patient request if the pre... Start Date: 11/27/21 Status: Ordered nicotine 2 mg oral transmucosal lozenge 1 lozenge = 2 mg, By Mouth, Every hour, PRN Other, Nicotine Withdrawal Symptoms (not to exceed 20 lozenges per day), # 72 lozenge, 3 Refills, Maintenance, 07/07/21 8:56:00 EDT, Lozenge, [facility] [id number], Partial fill upon... Start Date: 07/07/21 Status: Ordered pancrelipase 10,000 units-32,000 units-42,000 units oral delayed release capsule 1 capsule, By Mouth, 3 times a day, with each meal and snack, # 270 capsule, 3 Refills, Maintenance, 10/21/21 17:17:00 EDT, CR Capsule, [facility] [id number], Partial fill upon patient request if the prescription is for a sche... Start Date: 10/21/21 Status: Ordered pantoprazole 40 mg oral delayed release tablet 1 tablet = 40 mg, By Mouth, Daily, # 90 tablet, 3 Refills, Maintenance, 10/19/21 14:26:00 EDT, EC Tablet, 167, cm, 07/07/21 8:39:00 EDT, Height, 95.6, kg, 06/29/21 18:39:00 EDT, Dry Weight Start Date: 10/19/21 Status: Ordered Pen [place], 31 G x 8 mm BD Ultra [...] 10/21/21 12:48:00 EDT, Route to Pharmacy Electronically, [facility] [id number],Partial fill upon patient request if the prescripti... [...] 3 Refills, Maintenance, 07/07/21 8:56:00 EDT, Tablet, [place], [place] - [id number], Partial fill upon patient request if theprescription [...] Active H/O tubal ligation(Confirmed) Active BHN/ CP Physics Department Chair/Janet Pandey [phone](Confirmed) Active Heart failure(Confirmed) Active History of cholecystectomy(Confirmed) [...] Team Personnel Name: Jaki Bishop MD Address: [address] [place] [address]
--- OUTSIDE RECORDS SUMMARY | 2023-02-09 22:43 | XMS_ITS | Continuity of Care Document ---
Author Name Unknown Organization [facility] Address [address] [place] [address]- Care Team Providers Care Communication Arts Lecturer Name Role Phone Jaki Bishop MD Primary Care Physician [phone] [facility]counter [facility] Date[facility]s): 06/29/19 - 08/05/[address] [address]- [facility] Attending Physician: Not on Staff, Attending MD [...] Given Patient Refuses 1Admin Note: VIS GIVEN [id number] 2Admin Note: VIS GIVEN 2008-12 3Admin Note: vis 4Admin Note: vis 02/06/08 Medications acetaminophen 325 mg oral tablet 325 mg, 1, tablet, By Mouth, 4 times a day, PRN, No more than 4 tablets per day, # 60 tablet, Refills 11, Tot. Refills 11, Acute 10/05/19 12:00:00 EDT, for pain, 10/03/18 14:57:21 EDT, Route to Pharmacy Electronically, [id number]... Start Date: 10/03/18 Stop Date: 10/05/19 Status: [...] 05/02/19 13:58:00 EST, Route to Pharmacy Electronically, [place], [place] -, 166, cm, 04/30/19 10:41:00 EST, Height, 91.8, kg, 02/23/19 17... Start Date: 05/02/19 Status: Ordered docusate sodium 100 mg oral capsule 100 mg, 1, capsule, By Mouth, 2 times a day, # 60 capsule, Refills 11, Tot. Refills 11, Maintenance, 02/21/19 14:45:44 EST, Route to Pharmacy Electronically, [id number], [facility] [place] [place] -, 168, cm, 02/14/19... Start Date: [...] Maintenance,03/27/19 16:10:00 EST, Route to Pharmacy Electronically, [facility][id number], 166, cm, 03/27/19 15:26:00 EST, Height, 91.8, kg, 02/23/19 17:03:... Start Date: 03/27/19 Stop Date: 10/23/19 Status: Ordered Glucerna (Vanilla Flavor) Glucerna (Vanilla Flavor), See Instructions, # 60 each, Refills 11, Tot. Refills 11, Maintenance, Drink 1 can BID. 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 Fax to [facility] ( [facility], #[phone]), 07/26/19 15... Start Date: 07/26/19 Status: Ordered Humalog Kwik Pen 100 units/mL subcutaneous injection See Instructions, 4 Units for bood sugar above 120 mg/dl and then add 2 Units for every 50 mg/dl rise above 120. Three times a day before meals., # 15 mL, 6 Refills, Maintenance, 05/04/19 12:52:00 EST, [place], [place] - , Humalog ins... Start Date: 05/04/19 Status: Ordered Lantus Solostar Pen 100 units/mL subcutaneous solution See Instructions, This is an increase in dose. 28u QAM & 44 units QHS. Subcutaneous Injection Daily 30 days, # 5 each, 6 Refills, Maintenance, 07/12/19 9:59:00 EDT, [place], [place] -, 166, cm, 05/28/19 11:08:00 EDT, Height, 91.8, kg,... Start Date: 07/12/19 Status: Ordered MiraLax oral powder for reconstitution = 17 Gm, By Mouth, 2 times a day, PRN Other, dissolve in water before taking. goal 2-3 bowel movements daily, # 527 Gm, 2 Refills, Maintenance, 07/26/19 8:25:00 EDT, REC Powder, [place], [place] -, 17 Gm By Mouth 2 [...] Weight Start Date: 07/30/19 Status: Ordered Pen [place], 31 G x 8 mm BD Ultra [...] Attn Dr. Mariano Andrade, Outpatient Psychiatry, at [phone]., See Instructions, # 1 application, Refills 0, [...] 04/20/19 10:38:00 EST, Route to Pharmacy Electronically, [facility] #[id number], 166, cm, 04/20/19 10:17:00 EST, Height, 91.8, kg, 02/23/19 17:03:00 EST, Dr... Start Date: 04/20/19 Status: Ordered torsemide 20 mg oral tablet 2 tablet = 40 mg, By Mouth, Daily, # 180 tablet, 11 Refills, Maintenance, 04/20/19 10:38:00 EST, Tablet, [facility] #[id number], Replaces lower dose, 166, cm, 04/20/19 10:17:00 [...] Active H/O tubal ligation(Confirmed) Active BHN/BH CP Application Systems Engineer/Janet Pandey [phone](Confirmed) Active History of cholecystectomy(Confirmed) Active Hypertension(Confirmed) Active [...]
--- OUTSIDE RECORDS SUMMARY | 2023-02-09 22:43 | XMS_ITS | Continuity of Care Document ---
Author Name Unknown Organization [facility] Address [address] [place] [address]- Care Team Providers Care Manager Psychiatry Name Role Phone Jaki Bishop MD Primary Care Physician Encounter [facility] Date(s): 05/31/22 - 07/18/[address] [address]- Attending Physician: Alpesh MARY, Christen Longo Admitting Physician: Christen Betts NP Referring Physician: Jaki Bishop MD Allergies, Adverse [...] to COVID vaccine 2Admin Note: VIS GIVEN [id number] 3Admin Note: VIS GIVEN 2008-12 4Admin Note: vis 5Admin Note: vis 02/06/08 Medications albuterol 90 mcg/inh inhalation powder 2 puffs, Inhalation, Every 4 hours, PRN as needed, PRN Wheezing, # 1 each, 1 Refills, Maintenance, 06/28/22 14:49:00 EDT, Powder, [facility] [id number], Partial fill upon patient request if the [...] 07/16/22 16:04:00 EDT, Route to Pharmacy Electronically, [facility] [id number], Partialfill upon patient request if the prescription is fo... Start Date: 07/16/22 Status: Ordered benztropine 1 mg oral tablet 0.5 mg, 0.5, tablet, By Mouth, 2 times a day, # 30 tablet, Refills 3, Tot. Refills 3, Maintenance, 04/29/22 14:29:00 EST, Route to Pharmacy Electronically, [facility] [id number], Partial fill upon patient request if the prescr... Start Date: 04/29/22 Stop Date: 08/27/22 Status: Ordered cloNIDine 0.1 mg oral tablet 0.1 mg, 1, tablet, By Mouth, Daily, # 30 tablet, Refills 3, Tot. Refills 3, Maintenance, 04/29/22 14:29:00 EST, Route to Pharmacy Electronically, [facility] [id number], Partial fill upon patient request if the prescription is... Start Date: 04/29/22 Stop Date: 08/27/22 Status: Ordered Coreg 6.25 mg oral tablet 6.25 mg, 1, tablet, By Mouth, 2 times a day, # 60 tablet, Refills 3, Tot. Refills 3, Maintenance, 04/29/22 14:29:00 EST, Route to Pharmacy Electronically, [facility] [id number], Partial fill upon patient request if the prescri... Start Date: 04/29/22 Stop Date: 08/27/22 Status: Ordered Creon 12,000 units oral delayed release capsule 1 capsule, By Mouth, 3 times a day, # 90 capsule, 3 Refills, Maintenance, 04/29/22 14:37:00 EST, ECCapsule, [facility] [id number], Partial fill upon patient request if the prescription is for a schedule II opioid drug., 167,... Start Date: 04/29/22 Status: Ordered divalproex sodium 500 mg oral enteric coated tablet 1 tablet = 500 mg, By Mouth, 2 times a day, # 60 tablet, 3 Refills, Maintenance, 04/29/22 14:33:00 EST, Tablet, [facility] [id number], Partial fill upon patient request if the prescription is for a schedule II opioid drug., 16... Start Date: 04/29/22 Stop Date: 08/27/22 Status: Ordered folic acid 1 mg oral tablet 1, tablet, By Mouth, Daily, # 30 tablet, Refills 1, Maintenance, 06/01/22 16:34:00 EDT, Route to Pharmacy Electronically, [facility], 167, cm, 03/25/22 3:14:00 EST, Height, 113, [...] 0 Refills, Maintenance, 04/08/22 16:16:00 EST, Liquid, [place], [place] - [id number], Partial fill upon patient request if the prescription is for a schedule II opioid... Start Date: 04/08/22 Status: Ordered Insulin Lispro KwikPen 100 units/mL injectable solution See Instructions, INJECT SUBCUTANEOUSLY 3 (THREE) TIMES A DAY BEFORE MEALS VIA sliding scale (150-199 2u; 200-249 4u; 250-299 6u; 300-349 8u; 350-399 10u; >400 call VNA), # 10 mL, 2 Refills, Maintenance, 04/08/22 16:17:00 EST, Injection, [facility]... Start Date: 04/08/22 Status: Ordered lactulose 10 gm/15 ml oral syrup See Instructions, TAKE 30mls BY MOUTH two (2) times a day, # 1,200 mL, 1 Refills, Maintenance, 06/03/22 16:20:00 EDT, [facility] [id number], 20, TAKE 30mls BY MOUTH two (2) times a day, 167, cm, 03/25/22 3:14:00 EST, Height, 1... Start Date: 06/03/22 Status: Ordered Lantus Solostar Pen 100 units/mL subcutaneous solution = 6 units, Subcutaneous Injection, Daily in AM, # 10 mL, 2 Refills, Maintenance, 04/29/22 14:34:00 EST, Solution, [facility] [id number], Partial fill upon patient request if the prescription is for a schedule II opioid drug.,... Start Date: 04/29/22 Status: Ordered multivitamin Multiple Vitamins oral tablet 1 tablet, By Mouth, Daily, # 90 tablet, 1 Refills, Maintenance, 04/02/22 16:44:00 EST, Tablet, [facility] [id number], Partial fill upon patient request if the [...] Pharmacy Electronically, [facility] [id number], Partial fill upon patient request if the prescription... Start Date: 04/29/22 Stop Date: 08/27/22 Status: Ordered risperiDONE 3 mg oral tablet 3 mg, 1, tablet, By Mouth, Daily at bedtime, # 30 tablet, Refills 3, Tot. Refills 3, Maintenance, 04/29/22 14:39:00 EST, Route to Pharmacy Electronically, [facility] [id number], Partial fill upon patient request if the prescri... Start Date: 04/29/22 Status: Ordered thiamine 100 mg oral tablet 100 mg, 1, tablet, By Mouth, Daily, for 30 days, # 30 tablet, Refills 3, Tot. Refills 3, Acute 08/27/22 14:40:00 EDT, 04/29/22 14:40:00 EST, Route to Pharmacy Electronically, [facility] [id number], Partial fill upon patient re... Start Date: 04/29/22 Stop Date: 08/27/22 Status: Ordered tiotropium 2.5 mcg/inh inhalation aerosol 2 puffs, Inhalation, Daily, # 1 each, 5 Refills, Maintenance, 06/28/22 14:48:00 EDT, Inhaler, [facility] [id number], Partial fill upon patient request if the [...] Care Team Personnel Name: Lawrence Hendrix Position: [facility] RN Supv Member Role: Primary Care Nurse Name: Rufino Lloyd RN Position: [facility] RN Member Role: Primary Care Nurse Name: Cristina Carpenter RN Position: [facility] RN Member Role: Primary Care Nurse Name: Rosette Noriega RN Position: [facility] SN RN Member Role: Primary Care Nurse Name: Mary Hidalgo RN Position: [facility] PCO RN Member Role: Primary Care Nurse Name: Sissy Duran RN Position: [facility] AMB Nurse Member Role: Primary Care Nurse Name: Rohit Zavaleta RN Position: [facility] RN Member Role: Primary Care Nurse Name: Erlinda Hartman NP Position: [facility] Associate Professional Member Role: Primary Care Nurse Address: Address: [address] [place] [id number] Name: Jong Suazo RN Position: [facility] RN Supv Member Role: Primary Care Nurse Name: Shante Solis RN Position: [facility] RN Member Role: Primary Care Nurse Name: Joshua Prakash RN Position: [facility] RN Member Role: Primary Care Nurse Name: Bettie Vanegas RN Position: [facility] SN RN Member Role: Primary Care Nurse Name: Jay Marroquin RN Position: [facility] RN Member Role: Primary Care Nurse Name: Adrianna Church RN Position: [facility] RN Member Role: Primary Care Nurse Name: Sue Purdy RN Position: [facility] RN Member Role: Primary Care Nurse Name: Hector Perez RN Position: [facility] RN Member Role: Primary Care Nurse Name: Aleena Vizcaino RN Position: [facility] RN Member Role: Primary Care Nurse Name: Kacey Wilhelm RN Position: [facility] RN Member Role: Primary Care Nurse Name: Monalisa Barker LPN Position: [facility] AMB Nurse Member Role: Primary Care Nurse Name: Leslie Malloy RN Position: [facility] RN Member Role: Primary Care Nurse Name: Yesenia Hu LPN Position: [facility] RN Member Role: Primary Care Nurse Name: Joaquina Herrera RN Position: [facility] RN Member Role: Primary Care Nurse Name: Diego Bell RN Position: [facility] RN Member Role: Primary Care Nurse Name: Ese Grey Position: [facility] RN Member Role: Primary Care Nurse Name: Chela Najera RN Position: [facility] RN Member Role: Primary Care Nurse Name: Tootie Gonzalez RN Position: [facility] RN Member Role: Primary Care Nurse Name: Nancy Monte RN Position: [facility] RN Member Role: Primary Care Nurse Name: Marilee Starkey Position: [facility] RN Member Role: Primary Care Nurse Name: Silvina Dodd RN Position: [facility] RN Member Role: Primary Care Nurse Name: Flaco Clifford DO Position: [facility] Renal MD Member Role: Lifetime Consulting Physician Address: Address: [address] [place], [place] [address] [place], [place] [address] Name: Marilee Richardson RN Position: [facility] RN Member Role: Primary Care Nurse Name: Rufino Johnson RN Position: [facility] RN Member Role: Primary Care Nurse Name: Jovita Camargo RN Position: [facility] RN Member Role: Primary Care Nurse Name: Ju Zhu Position: [facility] RN Member Role: Primary Care Nurse Name: Ester Palomares Position: [facility] RN Member Role: Primary Care Nurse Name: Emma Colbert RN Position: [facility] RN Supv Member Role: Primary Care Nurse Name: Hallie Gambino RN Position: [facility] Onco RN Member Role: Primary Care Nurse Name: Maya Ambriz RN Position: [facility] RN Member Role: Primary Care Nurse Name: Bhavna Rendon LPN Position: [facility] RN Member Role: Primary Care Nurse Name: Luis Burton RN Position: [facility] RN Member Role: Primary Care Nurse Name: Jaki Bishop MD Position: [facility] Primary Care Physician Member Role: PCP Address: Address: [address] [place] [address] Name: Lucian Krause RN Position: [facility] RN Member Role: Primary Care Nurse Name: Leslie Ward RN Position: [facility] RN Member Role: Primary Care Nurse Name: Jacki Gomes RN Position: [facility] RN Member Role: Primary Care Nurse Name: Ximena Saab RN Position: [facility] RN Member Role: Primary Care Nurse Name: Ivette Shankar RN Position: [facility] RN Supv Member Role: Primary Care Nurse Name: Laura Mary RN Position: [facility] SN RN Member Role: Primary Care Nurse Name: Octavio Box RN Position: [facility] RN Member Role: Primary Care Nurse Name: Nazia Tapia RN Position: [facility] RN Member Role: Primary Care Nurse Name: Caren Hernandez RN Position: [facility] RN Supv Member Role: Primary Care Nurse Name: Perri Bryant RN Position: [facility] RN Member Role: Primary Care Nurse Name: Alba Toro RN Position: [facility] RN Member Role: Primary Care Nurse Name: Nely Wong RN Position: [facility] RN Member Role: Primary Care Nurse Name: Erica Brandon RN Position: [facility] RN Member Role: Primary Care Nurse Name: Adrianna Gonzalez RN Position: [facility] RN Member Role: Primary Care Nurse Name: Annmarie Feldman RN Position: [facility] PCO w/OE and EZ Script Member Role: Primary Care Nurse Name: Chinyere Espinoza RN Position: [facility] RN Member Role: Primary Care Nurse Name: Teresita Diallo RN Position: [facility] RN Member Role: Primary Care Nurse Name: Tennille Mcgarry RN Position: [facility] Hospital Photographs Curator Member Role: Primary Care Nurse Name: Vicky Salazar RN Position: [facility] RN Member Role: Primary Care Nurse Name: Spencer Jameson RN Position: S RN Member Role: Primary Care Nurse Name: Jalen Mullins Position: S RN Member Role: Primary Care Nurse Care Team Related Persons Name: MARYANNE KELLER Address: [address] [place] [address] Name: MARYANNE KELLER Address: home [address] [address] Name: MARYANNE KELLER JR Address: [address] [place] [address] Name: GEORGIA KELLER Address: [place] [address] Name: BALDEV POLANCO Address: [place] [address]
--- OUTSIDE RECORDS SUMMARY | 2023-02-09 22:43 | XMS_ITS | Continuity of Care Document ---
Author Name Unknown Organization [facility] Address [address] [place] [address]- Care Team Providers Care Yarn Dumper Name Role Phone Jaki Bishop MD Primary Care Physician [phone] [facility]counter [facility] Date[facility]): 11/10/22 - 12/10/[address] [id number] Allergies, Adverse Reactions, Alerts Substance Reaction [...] to COVID vaccine 2Admin Note: VIS GIVEN [id number] 3Admin Note: VIS GIVEN 2008-10 4Admin Note: vis 5Admin Note: vis 02/06/08 Medications albuterol 90 mcg/inh inhalation powder 2 puffs, Inhalation, Every 4 hours, PRN as needed, PRN Wheezing, # 1 each, 1 Refills, Maintenance, 06/28/22 14:49:00 EDT, Powder, [place], [place] - [id number], Partial fill upon patient request if the [...] 07/16/22 16:04:00 EDT, Route to Pharmacy Electronically, [facility] [id number], Partialfill upon patient request if the prescription is fo... Start Date: 07/16/22 Status: Ordered benztropine 1 mg oral tablet 0.5 mg, 0.5, tablet, By Mouth, 2 times a day, # 30 tablet, Refills 3, Tot. Refills 3, Maintenance, 09/17/22 1:51:00 EDT, Route to Pharmacy Electronically, [facility] [id number], Partial fill upon patient request if the [...] 10/18/22 11:46:00 EDT, Route to Pharmacy Electronically, [facility] [id number], Partial fill upon patient request if the prescr... Start Date: 10/18/22 Status: Ordered cloNIDine 0.1 mg oral tablet 0.1 mg, 1, tablet, By Mouth, Daily at bedtime, # 30 tablet, Refills 2, Tot. Refills 2, Maintenance,12/09/22 19:15:00 EDT, Route to Pharmacy Electronically, [facility] [id number], Partial fill upon patient request if the presc... Start Date: 12/09/22 Status: Ordered Creon 12,000 units oral delayed release capsule 1 capsule, By Mouth, 3 times a day, # 90 capsule, 3 Refills, Maintenance, 09/17/22 1:49:00 EDT, EC Capsule, [facility] [id number], Partial fill upon patient request if the [...] 09/17/22 1:48:00 EDT, Route to Pharmacy Electronically, [facility] [id number], 160, cm, 07/26/22 12:51:00 EDT, Height, 89.2, [...] 10/18/22 11:46:00 EDT, Route to Pharmacy Electronically, [facility] [id number], Partial fill upon patient request if the [...] mL, 5 Refills, Maintenance, 12/09/22 19:15:00 EDT, [facility] [id number], 15, 30 mL By Mouth 2 times a day, 165.09, cm, 10/18/22 11:23:00 EDT, Height, 83.7, kg, 10/05/22 21:20:00 EDT, Start Date: 12/09/22 Status: Ordered Lantus Solostar Pen 100 units/mL subcutaneous solution = 6 units, Subcutaneous Injection, Daily in AM, # 10 mL, 2 Refills, Maintenance, 12/09/22 19:15:00 EDT, Solution, [facility] [id number], Partial fill upon patient request if the prescription is for a schedule II opioid drug.,... Start Date: 12/09/22 Status: Ordered multivitamin Multiple Vitamins oral tablet 1 tablet, By Mouth, Daily, # 90 tablet, 1 Refills, Maintenance, 10/22/22 19:32:00 EDT, Tablet, [facility] [id number], Partial fill upon patient request if the prescription isfor a schedule II opioid drug., 1 tablet By Mouth D... Start Date: 10/22/22 Status: Ordered Nicotine 2 mg gum 1 each = 2 mg, Chew, Every 2 hours, PRN for smoking cessation, for 4 week(s), # 160 each, 1 Refills, Acute 02/03/23 19:15:00 EST, 12/09/22 19:15:00 EDT, Gum, [facility] [id number], Partial fill upon patient request if the pres... Start Date: 12/09/22 Stop Date: 02/03/23 Status: Ordered pantoprazole 40 mg oral delayed release tablet 1 tablet, By Mouth, Daily, # 30 tablet, 2 Refills, Maintenance, 11/10/22 11:02:00 EDT, 165.09, cm, 10/18/22 11:23:00 EDT, Height, 83.7, kg, 10/05/22 21:20:00 EDT, Dry Weight Start Date: 11/10/22 Status: Ordered Pen [place], 31 G x 5 mm BD Ultra [...] 10/12/22 10:21:00 EDT, Route to Pharmacy Electronically, [facility] [id number], Partial fill upon patient request if the prescription... Start Date: 10/12/22 Stop Date: 11/11/22 Status: Ordered risperiDONE 3 mg oral tablet 3 mg, 1, tablet, By Mouth, Daily at bedtime, # 30 tablet, Refills 0, Tot. Refills 0, Maintenance, 10/12/22 10:21:00 EDT, Route to Pharmacy Electronically, [facility] [id number], Partial fill upon patient request if the [...] 5 Refills, Maintenance, 09/17/22 1:52:00 EDT, Inhaler, [facility] [id number], Partial fill upon patient request if the prescription is for a schedule II opioid drug., 160, cm, 07/26/22 12:... Start Date: 09/17/22 Stop Date: 03/16/23 Status: Ordered traZODone 50 mg oral tablet 50 mg, 1, tablet, By Mouth, Daily at bedtime, # 30 tablet, Refills 2, Tot. Refills 2, Maintenance, 12/09/22 19:15:00 EDT, Route to Pharmacy Electronically, [facility] [place], [place] - [id number], Partial fill upon patient request if the [...] Care Team Personnel Name: Lawrence Hendrix Position: [facility] RN Member Role: Primary Care Nurse Name: Nazia Norris RN Position: [facility] Outreach Member Role: Primary Care Nurse Name: Rufino Lloyd RN Position: [facility] RN Member Role: Primary Care Nurse Name: Cristina Carpenter RN Position: [facility] RN Member Role: Primary Care Nurse Name: Rosette Noriega RN Position: [facility] SN RN Member Role: Primary Care Nurse Name: Mary Hidalgo RN Position: [facility] AMB Nurse Member Role: Primary Care Nurse Name: Sissy Duran RN Position: [facility] AMB Nurse Member Role: Primary Care Nurse Name: Rohit Zavaleta RN Position: [facility] RN Member Role: Primary Care Nurse Name: Erlinda Hartman NP Position: [facility] Associate Professional Member Role: Primary Care Nurse Address: Address: [address] [place] [id number] Name: Shante Solis RN Position: [facility] RN Member Role: Primary Care Nurse Name: Joshua Prakash RN Position: [facility] RN Member Role: Primary Care Nurse Name: Bettie Vanegas RN Position: [facility] SN RN Member Role: Primary Care Nurse Name: Jay Marroquin RN Position: [facility] RN Member Role: Primary Care Nurse Name: Adrianna Church RN Position: [facility] RN Member Role: Primary Care Nurse Name: Sue Purdy RN Position: [facility] RN Member Role: Primary Care Nurse Name: Hector Perez RN Position: [facility] ED RN W/OE and Tasks Member Role: Primary Care Nurse Name: Aleena Vizcaino RN Position: [facility] RN Member Role: Primary Care Nurse Name: Kacey Wilhelm RN Position: [facility] RN Member Role: Primary Care Nurse Name: Leslie Malloy RN Position: [facility] RN Member Role: Primary Care Nurse Name: Yesenia Hu LPN Position: [facility] RN Member Role: Primary Care Nurse Name: Joaquina Herrera RN Position: [facility] RN Member Role: Primary Care Nurse Name: Diego Bell RN Position: [facility] RN Member Role: Primary Care Nurse Name: Ese Grey Position: [facility] RN Member Role: Primary Care Nurse Name: Chela Najear RN Position: [facility] RN Member Role: Primary Care Nurse Name: Tootie Gonzalez RN Position: [facility] RN Member Role: Primary Care Nurse Name: Nancy Monte RN Position: [facility] RN Member Role: Primary Care Nurse Name: Marilee Starkey Position: S RN Member Role: Primary Care Nurse Name: Silvina Dodd RN Position: [facility] RN Member Role: Primary Care Nurse Name: Flaco Clifford DO Position: [facility] Renal MD Member Role: Lifetime Consulting Physician Address: Address: [address] [place], [place] [address] [place] [address]- Name: Marilee Richardson RN Position: [facility] RN Member Role: Primary Care Nurse Name: Rufino Johnson RN Position: [facility] RN Member Role: Primary Care Nurse Name: Judson Larry Position: [facility] RN Member Role: Primary Care Nurse Name: Jovita Camargo RN Position: [facility] RN Member Role: Primary Care Nurse Name: Bruna Pizarro Position: [facility] RN Member Role: Primary Care Nurse Name: Ju Zhu Position: [facility] RN Member Role: Primary Care Nurse Name: Ester Palomares Position: [facility] RN Member Role: Primary Care Nurse Name: Emma Colbert RN Position: [facility] RN Member Role: Primary Care Nurse Name: Hallie Gambino RN Position: [facility] Onco RN Member Role: Primary Care Nurse Name: Maya Ambriz RN Position: [facility] RN Member Role: Primary Care Nurse Name: Bhavna Rendon LPN Position: [facility] RN Member Role: Primary Care Nurse Name: Luis Burton RN Position: [facility] RN Member Role: Primary Care Nurse Name: Jaki Bishop MD Position: [facility] Physician - Primary Care Member Role: PCP Address: Address: [address] [place] [address]- Name: Lucian Krause RN Position: [facility] RN Member Role: Primary Care Nurse Name: Misty Tariq Position: [facility] RN Member Role: Primary Care Nurse Name: Isaiah Combs RN Position: [facility] RN Member Role: Primary Care Nurse Name: Leslie Ward RN Position: [facility] RN Member Role: Primary Care Nurse Name: Jacki Gomes RN Position: [facility] RN Member Role: Primary Care Nurse Name: Derek Smith RN Position: [facility] RN Member Role: Primary Care Nurse Name: Perri Smith RN Position: [facility] RN Member Role: Primary Care Nurse Name: Mar Brotehrs RN Position: [facility] RN Member Role: Primary Care Nurse Name: Ivette Shankar RN Position: [facility] RN Member Role: Primary Care Nurse Name: Laura Mary RN Position: [facility] SN RN Member Role: Primary Care Nurse Name: Mary Guillen RN Position: [facility] RN Member Role: Primary Care Nurse Name: Octavio Box RN Position: [facility] RN Member Role: Primary Care Nurse Name: Nazia Tapia RN Position: [facility] RN Member Role: Primary Care Nurse Name: Pat Jackson RN Position: [facility] RN Member Role: Primary Care Nurse Name: Caren Henrandez RN Position: [facility] RN Supsanchez Member Role: Primary Care Nurse Name: Nely Wong RN Position: [facility] RN Member Role: Primary Care Nurse Name: Erica Brandon RN Position: [facility] RN Member Role: Primary Care Nurse Name: Adrianna Gonzalez RN Position: [facility] RN Member Role: Primary Care Nurse Name: Annmarie Feldman RN Position: [facility] PCO w/OE and EZ Script Member Role: Primary Care Nurse Name: Chinyere Espinoza RN Position: [facility] RN Member Role: Primary Care Nurse Name: Teresita Diallo RN Position: [facility] RN Member Role: Primary Care Nurse Name: Tennille Mcgarry RN Position: [facility] Oliver Filter Operator Member Role: Primary Care Nurse Name: Vicky Salazar RN Position: [facility] RN Member Role: Primary Care Nurse Name: Spencer Jameson RN Position: [facility] RN Member Role: Primary Care Nurse Name: Jalen Mullins Position: [facility] RN Member Role: Primary Care Nurse Care Team Related Persons Name: MARYANNE KELLER Address: home [address] [place] [address] Name: MARYANNE KELLER Address: home [address] [place] [address] Name: MARYANNE KELLER JR Address: home [address] [place] [address] Name: GEORGIA KELLER Address: [place] [address] Name: BALDEV POLANCO Address: [place] [address]
--- OUTSIDE RECORDS SUMMARY | 2023-02-09 22:43 | XMS_ITS | Continuity of Care Document ---
Author Name Unknown Organization [facility] Address [address] [place] [address]- Care Team Providers Care Manager Zone Name Role Phone Jaki Bishop MD Primary Care Physician [facility]): 12/25/21 - 01/24/[address] [id number] Allergies, Adverse Reactions, Alerts Substance [...] to COVID vaccine 2Admin Note: VIS GIVEN [id number] 3Admin Note: VIS GIVEN 2008-12 4Admin Note: vis 5Admin Note: vis 02/06/08 Medications acetaminophen 325 mg oral tablet 650 mg, By Mouth, Every 4 hours, PRN, Temperature Greater than 100.5, Refills 0, Maintenance, Pain , Mild, 01/20/22 16:42:00 EDT, Partial fill upon patient request if the prescription is for a schedule II opioid drug. Start Date: 01/20/22 Status: Ordered benztropine 1 mg oral tablet [...] 10/21/21 12:44:00 EDT, Route to Pharmacy Electronically, [place], [place] - [id number], Partialfill upon patient request if the prescription [...] mL, 5 Refills, Maintenance, 09/11/21 17:25:00 EDT, [place], [place] - [id number], Partial fill upon patient request if the [...] Personnel Name: Jaki Bishop MD Address: Address: [address] [place] [address]
--- OUTSIDE RECORDS SUMMARY | 2023-02-09 22:43 | XMS_ITS | Continuity of Care Document ---
Author Name Unknown Organization [facility] Address [address] [place] [address]- Care Team Providers Care Medical Health Researcher Name Role Phone Jaki Bishop MD Primary Care Physician [facility] Date[facility]s): 05/15/20 - 06/14/[address] [address]- Allergies, Adverse Reactions, Alerts Substance Reaction Severity [...] Given Permanently Refused 1Admin Note: VIS GIVEN [id number] 2Admin Note: VIS GIVEN 2008-12 3Admin Note: vis 4Admin Note: vis 02/06/08 Medications acetaminophen 325 mg oral tablet 1, tablet, By Mouth, 4 times a day, PRN, not to exceed 4 TABLETS PER DAY, # 60 tablet, Refills 0, Tot. Refills 0, Acute, NEEDED, 05/28/20 13:40:00 EST, Route to Pharmacy Electronically, [facility], 168, cm, 04/16/20 8:30:00 EST, Height, [...] 11:06:00 EST, Tablet, [facility] [id number], Partial fill upon patient request if the prescription is for a schedule II opioid drug., 168,... Start Date: 04/16/20 Status: Ordered clozapine 50 mg oral tablet 3 tablet = 150 mg, By Mouth, Daily at bedtime, # 90 tablet, 0 Refills, Maintenance, 04/16/20 11:06:00 EST, Tablet, [facility] [id number], Partial fill upon patient request ifthe prescription is for a schedule II opioid drug.,... Start Date: 04/16/20 Status: Ordered Coreg 12.5 mg oral tablet 12.5 mg, 1, tablet, By Mouth, 2 times a day, # 180 tablet, Refills 1, Tot. Refills 1, Maintenance, 05/26/20 14:41:00 EST, Route to Pharmacy Electronically, [facility], [place] - [id number], Partial fill upon patient request if the prescr... Start Date: 05/26/20 Stop Date: 11/22/20 Status: Ordered docusate sodium 100 mg oral capsule = 100 mg, By Mouth, 2 times a day, PRN Constipation., # 60 capsule, 3 Refills, Maintenance, 02/29/20 15:13:00 EST, Capsule, [facility] [id number], Partial fill upon patient request if the [...] to Pharmacy Electronically, [facility] [id number], Partial fill upon patient request if the presc... Start Date: 05/28/20 Status: Ordered Glucerna (Vanilla Flavor) Glucerna (Vanilla Flavor), See Instructions, # 60 each, Refills 11, Tot. Refills 11, Maintenance, Drink 1 can BID. 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 Fax to [facility] ( [facility], #[phone]), 06/06/20 19... Start Date: 06/06/20 Status: Ordered [...] mL, 1 Refills, Maintenance, 04/16/20 11:07:00 EST, [facility] [place], [place] - [id number],... Start Date: 04/16/20 Status: Ordered lactulose 10 gm/15 ml oral syrup 30 mL, By Mouth, 2 times a day, # 581 mL, 0 Refills, Acute, 03/25/20 11:49:00 EST, [facility],10, TAKE 30 ML BY MOUTH [...] 26 units, Subcutaneous Injection, Daily at bedtime, # 5 each, 1 Refills, Maintenance, 06/13/20 18:09:00 EDT, Solution, [facility] [id number], 168, cm, 04/16/20 8:30:00 EST,Height, 98.7, kg, 04/11/20 2:10:00 EST, Dry Weight Start Date: 06/13/20 Status: Ordered loratadine 10 mg oral tablet See Instructions, TAKE ONE TABLET BY MOUTH DAILY, # 30 tablet, Refills 5, Tot. Refills 5, 05/01/20 8:18:00 EST, Instructions Replace Required Details, Route to Pharmacy Electronically, [facility] [id number], 168, cm, 04/16/20... Start Date: 05/01/20 Status: [...] Maintenance, 05/26/20 13:28:00 EST, Tablet, [facility], [facility] [id number], 1 tablet By Mouth Daily, 168, cm, [...] Maintenance, 04/16/20 11:08:00 EST, Gum, [facility] [id number], Partial fill upon patient request if the [...] 5 Refills, Maintenance, 03/05/20 16:50:00 EST, Tablet, [place], [place] - [id number], this is an increased, 1 tablet By [...] 1 Refills, Maintenance, 04/16/20 11:09:00 EST, Tablet, [place], [place] - [id number], Partial fill upon patient request if the prescription is for a schedule II opioid drug., 168, cm, ... Start Date: 04/16/20 Stop Date: 04/11/21 Status: Ordered Zenpep 10,000 units-32,000 units-42,000 units oral delayed release capsule 1 capsule, By Mouth, 3 times a day, # 90 capsule, 0 Refills, Maintenance, 04/16/20 11:09:00 EST, [place], [place] - [id number], 1 capsule By Mouth 3 times a [...] Active H/O tubal ligation(Confirmed) Active BHN/ CP Hogshead Stripper/Janet salvador [facility] [phone](Confirmed) Active History of cholecystectomy(Confirmed) Active Hypertension(Confirmed) Active [...]
--- OUTSIDE RECORDS SUMMARY | 2023-02-09 22:44 | XMS_ITS | Continuity of Care Document ---
Author Name Unknown Organization [facility] Address [address] [place] [address]- Care Team Providers Care Director Of Academic Name Role Phone Dario HAYDEN, Jaki Primary Care Physician [facility]): [facility] - 03/21/20 [facility] [address] [place] [address] Attending Physician: Antonio Guido Admitting Physician: AdmAntonio [...] Given Permanently Refused 1Admin Note: VIS GIVEN [id number] 2Admin Note: VIS GIVEN 2008-12 3Admin Note: vis 4Admin Note: vis 02/06/08 Medications acetaminophen 325 mg oral tablet 1, tablet, By Mouth, 4 times a day, PRN, no MORE THAN 4 TABLETS PER DAY., # 60 tablet, Refills 1, Tot. Refills 1, Maintenance, NEEDED, 03/06/20 9:09:00 EST, Route to Pharmacy Electronically, [facility] [id number], 168, cm,... Start Date: 03/06/20 Status: Ordered [...] 03/05/20 16:49:00 EST, Route to Pharmacy Electronically, [facility] [id number], Partial fill upon patient request, 168, cm, 11/... Start Date: 03/05/20 Status: Ordered docusate sodium 100 mg oral capsule = 100 mg, By Mouth, 2 times a day, PRN Constipation., # 60 capsule, 3 Refills, Maintenance, 02/29/20 15:13:00 EST, Capsule, [facility] [id number], Partial fill upon patient request if the prescription is for a schedule II opio... Start Date: 02/29/20 Stop Date: 06/28/20 Status: Ordered gabapentin 100 mg oral capsule 200 mg, 2, capsule, By Mouth, 2 times a day, # 120 capsule, Refills 0, Tot. Refills 0, Maintenance,03/05/20 16:51:00 EST, Route to Pharmacy Electronically, [facility] [id number], Partial fill upon [facility] if the [facility]... Start Date: 03/05/20 Status: Ordered Humalog Kwik Pen 100 units/mL subcutaneous injection See Instructions, 4 Units for bood sugar above 120 mg/dl and then add 2 Units for every 50 mg/dl rise above 120. Three times a day before meals., # 15 mL, 6 Refills, Maintenance, 03/05/20 16:52:00 EST, [facility] [id number],... Start Date: 03/05/20 Status: Ordered lactulose 10 [...] Replace Required Details, Route to Pharmacy Electronically, [facility] [id number], 168, cm, 12/17/19... Start Date: 02/01/20 Status: [...] 1 Refills, Maintenance, 08/07/19 14:23:00 EDT, Tablet, [place], [place] -, 1 tablet By Mouth Daily, [...] 5 Refills, Maintenance, 03/05/20 16:50:00 EST, Tablet, [facility] [id number], this is an increased, 1 tablet By [...] 3 Refills, Maintenance, 03/05/20 16:51:00 EST, Tablet, [place], [place] - [id number], Partial fill upon patient request if the prescription is for a schedule II opioid drug., 168, cm, 11... Start Date: 03/05/20 Stop Date: 02/28/21 Status: Ordered Zenpep 10,000 units-32,000 units-42,000 units oral delayed release capsule 1 capsule, By Mouth, 3 times a day, # 90 capsule, 6 Refills, Maintenance, 03/06/20 9:09:00 EST, [facility] [place], [place] - [id number], 1 capsule By Mouth 3 times a [...] Active H/O tubal ligation(Confirmed) Active BHN/BH CP Signs Cleaner/Janet Pandey [phone](Confirmed) Active History of cholecystectomy(Confirmed) Active Hypertension(Confirmed) Active [...]
--- OUTSIDE RECORDS SUMMARY | 2023-02-09 22:44 | XMS_ITS | Continuity of Care Document ---
Author Name Unknown Organization [facility] Address [address] [place] [address]- Care Team Providers Care Muffler Installer Name Role Phone Dario HAYDEN, Jaki Primary Care Physician Encounter [facility] Date(s): 10/19/21 - 11/18/[address] [address]- Allergies, Adverse Reactions, Alerts Substance Reaction Severity [...] to COVID vaccine 2Admin Note: VIS GIVEN [id number] 3Admin Note: VIS GIVEN 2008- 4Admin Note: vis 5Admin Note: vis 02/06/08 Medications Abilify 10 mg oral tablet 10 mg, 1, tablet, By Mouth, Daily, # 90 tablet, Refills 3, Tot. Refills 3, Maintenance, 07/07/21 8:56:00 EDT, Route to Pharmacy Electronically, [place], [place] - [id number], Partialfill upon patient request if the prescription [...] EDT, Route to Pharmacy Electronically, [facility] [id number], Partial fill upon patient request if the prescri... Start Date: 07/07/21 Status: Ordered Comfort EZ Pen [place] 31 gauge x 5/16 USE TO inject insulin 4 (FOUR) TIMES DAILY Start Date: 07/03/21 Status: Ordered Coreg 6.25 mg oral tablet 6.25 mg, 1, tablet, By Mouth, 2 times a day, # 180 tablet, Refills 3, Tot. Refills 3, Maintenance, 07/07/21 8:56:00 EDT, Route to Pharmacy Electronically, [facility] [id number], Partial fill upon patient request if the prescri... Start Date: 07/07/21 Status: Ordered Daily Multiple Vitamins oral tablet 1 tablet, By Mouth, Daily, # 90 tablet, 3 Refills, Maintenance, 07/07/21 8:56:00 EDT, Tablet, [facility] [id number], Partial fill upon patient request if the prescription is for a schedule II opioid drug., 1 tablet By Mouth Da... Start Date: 07/07/21 Status: Ordered divalproex sodium 250 mg oral enteric coated tablet 1 tablet = 250 mg, By Mouth, Daily in AM, # 90 tablet, 3 Refills, Maintenance, 07/07/21 8:56:00 EDT, Tablet, [facility] [id number], Partial fill upon patient request if the prescription is for a schedule II opioid drug., 167,... Start Date: 07/07/21 Status: Ordered divalproex sodium 500 mg oral enteric coated tablet 1 tablet = 500 mg, By Mouth, Daily at bedtime, # 90 tablet, 3 Refills, Maintenance, 07/07/21 8:56:00 EDT, Tablet, [facility] [id number], Partial fill upon patient request if the prescription is for a schedule II opioid drug.,... Start Date: 07/07/21 Status: Ordered Eucerin Unscented topical lotion See Instructions, Apply daily as directed to dry skin. 16 oz, # 1 each, 3 Refills, Maintenance, 07/07/21 9:02:00 EDT, [place], [place] - [id number], Partial fill upon patient requestif the prescription is for a schedule II opioid drLitzy.. Start Date: 07/07/21 Status: Ordered folic acid 1 mg oral tablet 1 mg, 1, tablet, By Mouth, Daily, # 30 tablet, Refills 1, Tot. Refills 1, Maintenance, 10/21/21 12:44:00 EDT, Route to Pharmacy Electronically, [place], [place] - [id number], Partialfill upon patient request if the prescription [...] EDT, Route to Pharmacy Electronically, [facility] [id number], Partial fill upon patient request if the p... Start Date: 07/07/21 Status: Ordered gabapentin 100 mg oral capsule 200 mg, 2, capsule, By Mouth, Daily at bedtime, # 180 capsule, Refills 3, Tot. Refills 3, Maintenance, 07/07/21 8:56:00 EDT, Route to Pharmacy Electronically, [facility] [id number], Partial fill upon patient request if the pre... Start Date: 07/07/21 Status: Ordered guaiFENesin 100 mg/5 mL oral liquid 5 mL = 100 mg, By Mouth, Every 4 hours, PRN for cough, # 300 mL, 0 Refills, Acute 07/07/22 9:05:00 EDT, 07/07/21 9:02:00 EDT, Liquid, [place], [place] - [id number], Partial fill uponpatient request if the prescription [...] a day, # 581 mL, 3 Refills, [facility], 10, TAKE 30mls BY MOUTH 2 (two) times a day, 167, cm, 07/07/21 8:39:00 EDT, Height, 95.6, kg, 06/29/21 18:39:00 EDT, Dry Weight Start Date: 08/10/21 Status: Ordered Lantus Solostar Pen 100 units/mL subcutaneous solution = 16 units, Subcutaneous Infusion, Daily, # 15 mL, 5 Refills, Maintenance, 09/11/21 17:25:00 EDT, [facility] [id number], Partial fill upon patient request if the prescriptionis for a schedule II opioid drug., 167, cm, ... Start Date: 09/11/21 Status: Ordered loratadine 10 mg oral tablet 10 mg, 1, tablet, By Mouth, Daily, # 90 tablet, Refills 3, Tot. Refills 3, Maintenance, 07/07/21 8:56:00 EDT, Route to Pharmacy Electronically, [facility] [id number], Partialfill upon patient request if the prescription is fo... Start Date: 07/07/21 Status: Ordered magnesium oxide 400 mg oral tablet 1 tablet = 400 mg, By Mouth, 2 times a day, # 180 tablet, 3 Refills, Maintenance, 07/07/21 8:56:00 EDT, Tablet, [facility] [id number], Partial fill upon patient request if the prescription is for a schedule II opioid drug., 16... Start Date: 07/07/21 Status: Ordered melatonin 3 mg oral tablet 1 tablet = 3 mg, By Mouth, Daily at bedtime, PRN Insomnia, # 90 tablet, 3 Refills, Maintenance, 07/07/21 8:56:00 EDT, Tablet, [facility] [id number], Partial fill upon patientrequest if the prescription is for a schedule II op... Start Date: 07/07/21 Status: Ordered nicotine 2 mg oral transmucosal lozenge 1 lozenge = 2 mg, By Mouth, Every hour, PRN Other, Nicotine Withdrawal Symptoms (not to exceed 20 lozenges per day), # 72 lozenge, 3 Refills, Maintenance, 07/07/21 8:56:00 EDT, Lozenge, [facility] [id number], Partial fill upon... Start Date: 07/07/21 Status: Ordered pancrelipase 10,000 units-32,000 units-42,000 units oral delayed release capsule 1 capsule, By Mouth, 3 times a day, with each meal and snack, # 270 capsule, 3 Refills, Maintenance, 10/21/21 17:17:00 EDT, CR Capsule, [place], [place] - [id number], Partial fill upon patient request if the prescription is for a sche... Start Date: 10/21/21 Status: Ordered pantoprazole 40 mg oral delayed release tablet 1 tablet = 40 mg, By Mouth, Daily, # 90 tablet, 3 Refills, Maintenance, 10/19/21 14:26:00 EDT, EC Tablet, 167, cm, 07/07/21 8:39:00 EDT, Height, 95.6, kg, 06/29/21 18:39:00 EDT, Dry Weight Start Date: 10/19/21 Status: Ordered Pen [place], 31 G x 8 mm BD Ultra [...] 10/21/21 12:48:00 EDT, Route to Pharmacy Electronically, [place], [place] - [id number],Partial fill upon patient request if the prescripti... [...] 3 Refills, Maintenance, 07/07/21 8:56:00 EDT, Tablet, [facility] - [place], [place] - [id number], Partial fill upon patient request if theprescription [...] Active H/O tubal ligation(Confirmed) Active BHN/ CP Printed Circuit Board Reworker/Janet salvador [facility] [phone](Confirmed) Active Heart failure(Confirmed) Active History of cholecystectomy(Confirmed) [...] Team Personnel Name: Jaki Bishop MD Address: [address] [place] [id number]- [place]
--- OUTSIDE RECORDS SUMMARY | 2023-02-09 22:44 | XMS_ITS | Continuity of Care Document ---
Author Name Unknown Organization [facility] Address [address] [place] [address]- Care Team Providers Care Program Engineer Name Role Phone Jaki Bishop MD Primary Care Physician Encounter [facility] Date(s): 07/17/20 - 08/16/[address] [address]- Allergies, Adverse Reactions, Alerts Substance Reaction Severity [...] Given Permanently Refused 1Admin Note: VIS GIVEN [id number] 2Admin Note: VIS GIVEN 2008-12 3Admin Note: vis 4Admin Note: vis 02/06/08 Medications acetaminophen 325 mg oral tablet 1, tablet, By Mouth, 4 times a day, PRN, not to exceed 4 TABLETS PER DAY. Not to exceed 2000 mg/day. PRN Pain, # 60 tablet, Refills 5, Tot. Refills 5, Maintenance, NEEDED, 08/14/20 16:55:00 EDT, Route to Pharmacy Electronically, [facility] -... Start Date: 08/14/20 Status: Ordered [...] 0 Refills, Maintenance, 04/16/20 11:06:00 EST, Tablet, [facility] [id number], Partial fill upon patient request if the prescription is for a schedule II opioid drug., 168,... Start Date: 04/16/20 Status: Ordered clozapine 50 mg oral tablet 3 tablet = 150 mg, By Mouth, Daily at bedtime, # 90 tablet, 0 Refills, Maintenance, 04/16/20 11:06:00 EST, Tablet, [facility] [id number], Partial fill upon patient request ifthe prescription is for a schedule II opioid drug.,... Start Date: 04/16/20 Status: Ordered Comfort EZ Pen [place] 31 gauge x 5/16 Comfort EZ Pen [place] 31 gauge x 16 , See Instructions, [...] 05/26/20 14:41:00 EST, Route to Pharmacy Electronically, [facility] [id number], Partial fill upon patient request if the prescr... Start Date: 05/26/20 Stop Date: 11/22/20 Status: Ordered docusate sodium 100 mg oral capsule = 100 mg, By Mouth, 2 times a day, PRN Constipation., # 60 capsule, 5 Refills, Maintenance, 07/21/20 10:54:00 EDT, Capsule, [facility] [id number], Partial fill upon patient request if the [...] Maintenance,05/28/20 13:46:00 EST, Route to Pharmacy Electronically, [facility] [id number], Partial fill upon patient request if the [...] K86.1, K74.6, E11.65. Fax to [facility] ( [facility], #[phone]), 06/06/20 19... Start Date: 06/06/20 Status: Ordered [...] mL, 1 Refills, Maintenance, 04/16/20 11:07:00 EST, [facility] [id number],... Start Date: 04/16/20 Status: Ordered lactulose 10 gm/15 ml oral syrup 30 mL, By Mouth, 2 times a day, # 581 mL, 3 Refills, Maintenance, 06/27/20 11:11:00 EDT, [facility] [id number], 10, 30 mL By Mouth 2 times [...] 3 Refills, Maintenance, 07/29/20 10:17:00 EDT, Solution, [facility] [place] - [id number], 168, cm, 04/16/20 8:30:00 EST, Height, 98.7, kg, 2... Start Date: 07/29/20 Status: Ordered loratadine 10 mg oral tablet See Instructions, TAKE ONE TABLET BY MOUTH DAILY, # 30 tablet, Refills 5, Tot. Refills 5, 05/01/20 8:18:00 EST, Instructions Replace Required Details, Route to Pharmacy Electronically, [facility] [place] - [id number], 168, cm, 04/16/20... Start Date: 05/01/20 Status: Ordered multivitamin Multiple Vitamins oral tablet 1 tablet, By Mouth, Daily, # 90 tablet, 1 Refills, Maintenance, 05/26/20 13:28:00 EST, Tablet, [facility] [place] - [id number], 1 tablet By Mouth Daily, 168, cm, [...] 0 Refills, Maintenance, 04/16/20 11:08:00 EST, Gum, [place], [place] - [id number], Partial fill upon patient request if the [...] 5 Refills, Maintenance, 07/14/20 16:30:00 EDT, Tablet, [place], [place] - [id number], this is an increased, 1 tablet By Mouth 2 times a day,x30 days, 168, cm, 04/16/20 8:30:00 EST, Heigh... Start Date: 07/14/20 Stop Date: 01/10/21 Status: Ordered torsemide 20 mg oral tablet 1 tablet = 20 mg, By Mouth, Daily, # 30 tablet, 1 Refills, Maintenance, 04/16/20 11:09:00 EST, Tablet, [facility] [id number], Partial fill upon patient request if the prescription is for a schedule II opioid drug., 168, cm, 01... Start Date: 04/16/20 Stop Date: 04/11/21 Status: Ordered Zenpep 10,000 units-32,000 units-42,000 units oral delayed release capsule 1 capsule, By Mouth, 3 times a day, # 90 capsule, 0 Refills, Maintenance, 04/16/20 11:09:00 EST, [place], [place] - [id number], 1 capsule By Mouth 3 times a [...] Active H/O tubal ligation(Confirmed) [facility] [phone](Confirmed) Active History of cholecystectomy(Confirmed) Active Hypertension(Confirmed) Active [...]
--- OUTSIDE RECORDS SUMMARY | 2023-02-09 22:44 | XMS_ITS | Continuity of Care Document ---
Author Name Unknown Organization [facility] ter Address [address] [place] [address]- Care Team Providers Care Bait Packer Name Role Phone Dario HAYDEN, Jaki Primary Care Physician [phone] [place] [facility] [place] 02/23/[place] - 03/01/[address] [address]- [facility] Encounter Diagnosis Hyperglycemia(Final) - 02/23/19 Discharge Disposition: Transfer Design Agent Care Attending Physician: Cherelle Baker MD Admitting Physician: Arya Gilbert MD Referring Physician: Not on Staff, Referring MD Allergies, Adverse Reactions, Alerts Substance Reaction Severity Status acetaminophen Active predniSONE Dizziness 02-JAN-2016 21:52:27<$> Active Zyprexa Hypertension Active NSAIDs [...] Given Patient Refuses 1Admin Note: VIS GIVEN [id number] 2Admin Note: VIS GIVEN 2008-12 3Admin Note: vis 4Admin Note: vis 02/06/08 Medications acetaminophen 325 mg oral tablet 325 mg, 1, tablet, By Mouth, 4 times a day, PRN, No more than 4 tablets per day, # 60 tablet, Refills 11, Tot. Refills 11, Acute 10/05/19 12:00:00 EDT, for pain, 10/03/18 14:57:21 EDT, Route to Pharmacy Electronically, [id number]... Start Date: 10/03/18 Stop Date: 10/05/19 Status: [...] 07/19/18 9:04:24 EDT, Route to Pharmacy Electronically, [id number], [facility] [id number] Start Date: 07/19/18 Status: Ordered docusate sodium 100 mg oral capsule 100 mg, 1, capsule, By Mouth, 2 times a day, # 60 capsule, Refills 11, Tot. Refills 11, Maintenance, 02/21/19 14:45:44 EST, Route to Pharmacy Electronically, [id number], [place], [place] -, 168, cm, 02/14/19... Start Date: 02/21/19 Stop Date: 02/16/20 Status: Ordered Ensure (Vanilla Flavor) Ensure (Vanilla Flavor), See Instructions, # 60 each, Refills 11, Tot. Refills 11, Maintenance, Drink 1 can BID. Diagnosis: Chronic Pancreatitis, Cirrhosis. ICD10 K86.1, K74.6, [facility] #[phone]), 12/06/17 13:28:49 EDT, Compound Start Date: 12/06/17 Status: Ordered gabapentin 100 mg oral capsule 100 mg, 1, capsule, By Mouth, 2 times a day, # 60 capsule, Refills 6, Tot. Refills 6, Maintenance, 07/19/18 9:05:59 EDT, Route to Pharmacy Electronically, [id number], [facility] [id number] Start Date: 07/19/18 Stop Date: 02/14/19 Status: [...] TABLET BY MOUTH DAILY FOR STOMACH ACID, [id number] Start Date: 11/28/18 Status: Ordered Please draw CBC with dif (for ANC) weekly and fax results to: Attn Dr. Mariano Andrade, Outpatient Psychi Please draw CBC with dif (for ANC) weekly and fax results to: Attn Dr. 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 [facility] [phone](Confirmed) Active History of cholecystectomy(Confirmed) Active Hypertension(Confirmed) Active Incisional hernia(Confirmed) Active Nicotine dependence(Confirmed) Active Obesity (BMI 30.0-34.9)(Confirmed) Active Pulmonary HTN, Severe(Confirmed) Active Steatohepatitis (w/Stage III Fibrosis, Liver Biopsy 05/2012)(Confirmed) Active Results Orders for Microbiology Reports Name Date Blood Culture 02/27/19 Blood Culture #2 02/27/19 Blood Culture 02/23/19 Blood Culture #2 02/23/19 Microbiology Reports TEST:Blood Culture STATUS:Unauthenticated BODY SITE: SOURCE:Blood COLLECTED DATE/TIME:02/27/19 3:47 PM Blood Culture SPECIMEN DESCRIPTION : BLOOD L A SPECIAL REQUESTS : NONE CULTURE : NO GROWTH AFTER 48 HOURS REPORT STATUS : PRELIMINARY REPORT TEST:Blood Culture, Second Order STATUS:Unauthenticated BODY SITE: SOURCE:Blood COLLECTED DATE/TIME:02/27/19 3:47 PM Blood Culture, Second Order SPECIMEN DESCRIPTION : BLOOD R A SPECIAL REQUESTS : NONE CULTURE : NO GROWTH AFTER 48 HOURS REPORT STATUS : PRELIMINARY REPORT TEST:Blood Culture, Second Order STATUS:Auth (Verified) BODY SITE: SOURCE:Blood COLLECTED DATE/TIME:02/23/19 3:18 AM Blood Culture, Second Order SPECIMEN DESCRIPTION : BLOOD LEFT HAND SPECIAL REQUESTS : NONE CULTURE : NO GROWTH 5 DAYS. REPORT STATUS : FINAL 02/28/2019 TEST:Blood Culture STATUS:Auth (Verified) BODY SITE: SOURCE:Blood COLLECTED DATE/TIME:02/23/19 2:46 AM Blood Culture SPECIMEN DESCRIPTION : BLOOD NO SITE SPECIAL REQUESTS : NONE CULTURE : NO GROWTH 5 DAYS. REPORT STATUS : FINAL 02/28/2019 Radiology Reports * Exam Date Time Procedure Performing Provider Status 02/27/19 4:15 PM Chest Portable Alondra Law; Auth (Verified) Notes: (Chest Portable) Reason For Exam: Shortness of Breath RESULT: Chest Portable Chest Portable AP upright 1601 hours Refer to EMR; Reason: Shortness of Breath; Clinical Question(s): Pulmonary Edema COMPARISON: 02/23/2019 and 11/22/2018 FINDINGS: LINES AND TUBES: None. LUNGS AND PLEURA: Asymmetric, right more so than left, interstitial opacities. No consolidation. No pleural effusion. No pneumothorax. HEART, MEDIASTINUM AND MICHELLE: Heart is normal in size. Aorta is mildly calcified. BONES AND SOFT TISSUES: No acute abnormality. Vascular coils in the left upper abdomen. IMPRESSION: Mild asymmetric pulmonary edema pattern. No pleural effusion. WSN: [id number] Dictated By: Irvin Arroyo DO Dictated Date/Time: 02/27/19 4:29 pm Reviewed By: Irvin Arroyo DO Signed By: Irvin Arroyo DO Signed Date/Time: 02/27/19 4:29 pm Transcribed By: YAIR Transcribed Date/Time: 02/27/19 4:27 pm * Exam Date Time Procedure Performing Provider Status 02/23/19 12:18 AM Chest 2 Views Frontal and Lat Melvin Macias; Auth (Verified) Notes: (Chest 2 Views Frontal and Lat) Reason For Exam: Shortness of Breath, Fever;Other: RESULT: Chest 2 Views Frontal and Lat Chest 2 Views Frontal and Lat INDICATION: Shortness of Breath, Fever; Clinical Question(s): Pneumonia; Hx of Present Illness: No hx of diabetes but her is a diabetic. She has not been feeling well so her checked her BS. Reading was High. Vomiting yesterday, frequent urination; COMPARISON: Multiple priors, most recently 11/22/2018. FINDINGS: LINES AND TUBES: None. LUNGS AND PLEURA: There is airspace opacity at bilateral lower lobes with loss of the left heart border. There is a positive spine sign. No pleural effusion. No pneumothorax. HEART, MEDIASTINUM AND MICHELLE: Mild prominence of the cardiac silhouette, unchanged. Normal mediastinal and hilar contour. BONES AND SOFT TISSUES: No acute osseous abnormality. Embolization coils in the left upper quadrant. IMPRESSION: Patchy airspace opacities in bilateral lower lobes may be due to atelectasis and/or pneumonia in the appropriate setting. I have personally reviewed the images and I agree with this report. WSN: [id number] Dictated By: Ian Keen MD Dictated Date/Time: 02/23/19 7:14 am Reviewed By: Alejandro Huertas MD Signed By: Alejandro Huertas MD Signed Date/Time: 02/23/19 7:19 am Transcribed By: YAIR Transcribed Date/Time: 02/23/19 4:01 am Vital Signs Most recent to oldest [Reference Range]: 1 2 3 Height 166 cm (02/28/19 11:53 PM) 166 cm (02/26/19 11:31 PM) 166 cm (02/26/19 7:39 AM) Weight 96.5 kg (02/27/19 5:35 AM) 95.8 kg (02/26/19 1:14 PM) 91.8 kg (02/23/19 5:03 PM) Oxygen Saturation [94-100 %] 98 % (03/01/19 6:00 AM) 96 % (02/28/19 11:53 PM) 97 % (02/28/19 3:00 PM) Pulse Rate [55-90 bpm] 76 bpm (03/01/19 6:00 AM) 87 bpm (02/28/19 11:53 PM) 87 bpm (02/28/19 3:00 PM) Body Mass Index [18.5-24.99] 33.31 *>HHI* (02/23/19 5:03 PM) Blood Pressure [90-138/55-84 mm Hg] 138/61mm Hg (03/01/19 6:00 AM) 144/96mm Hg *H* (02/28/19 11:53 PM) 111/71mm Hg (02/28/19 3:00 PM) Respiratory Rate [16-30 br/min] 18 br/min (03/01/19 10:02 AM) 19 br/min (03/01/19 6:00 AM) 18 br/min (02/28/19 11:53 PM) Temperature [96.8-100.4 DegF] 98.7 DegF (03/01/19 6:00 AM) 98.1 DegF (02/28/19 11:53 PM) 98.7 DegF (02/28/19 3:00 PM) Liters per Minute 2 L/min (02/27/19 3:15 PM) 2 L/min (02/25/19 8:00 AM) 2 L/min (02/25/19 4:49 AM) Mode of Delivery (Oxygen) Room air (03/01/19 6:00 AM) Room air (02/28/19 11:53 PM) Room air (02/28/19 3:00 PM) Blood pressure sites Arm, right (02/28/19 11:53 PM) Arm, left (02/28/19 8:00 AM) Arm, right (02/27/19 3:00 PM) Temperature Route Oral (03/01/19 6:00 AM) Oral (02/28/19 11:53 PM) Oral (02/28/19 3:00 PM) Dry Weight 91.8 kg (02/23/19 5:03 PM) Weight Obtained Via Bed scale (02/27/19 5:35 AM) Bed scale (02/26/19 1:14 PM) Sensory deficits None (02/23/19 5:03 PM) Mobility assistance Transfer, assist of 2 (02/23/19 5:03 PM) Social History Social History Type Response Tobacco Use: 4 or less cigar ettes(less than 1/4 pack)/day in last 30 days. Started at age: 15 Years. Sex
--- OUTSIDE RECORDS SUMMARY | 2023-02-09 22:44 | XMS_ITS | Continuity of Care Document ---
Author Name Unknown Organization [facility] Address [address] [place] [id number]- Care Team Providers Care Utility Bagger Name Role Phone Jaki Bishop MD Primary Care Physician [facility] Date[facility]): 01[facility]11[facility]22 - 02/10/[address] [address] Allergies, Adverse Reactions, Alerts Substance [...] to COVID vaccine 2Admin Note: VIS GIVEN [id number] 3Admin Note: VIS GIVEN 2008- 4Admin Note: vis 5Admin Note: vis 02/06/08 Medications benztropine 1 mg oral tablet 0.5 mg, 0.5, tablet, By Mouth, 2 times a day, # 30 tablet, Refills 0, Tot. Refills 0, Maintenance, 02/02/22 9:36:00 EST, Route to Pharmacy Electronically, [facility] [id number], Partial fill upon patient request if the prescri... Start Date: 02/02/22 Status: Ordered cloNIDine 0.1 mg oral tablet 0.05 mg, 0.5, tablet, By Mouth, Daily, # 15 tablet, Refills 0, Tot. Refills 0, Maintenance, 02/02/22 9:36:00 EST, Route to Pharmacy Electronically, [facility] [id number], Partial fill upon patient request if the prescription i... Start Date: 02/02/22 Status: Ordered Coreg 6.25 mg oral tablet 6.25 mg, 1, tablet, By Mouth, 2 times a day, # 60 tablet, Refills 0, Tot. Refills 0, Maintenance, 02/02/22 9:36:00 EST, Route to Pharmacy Electronically, [facility] [id number], Partial fill upon patient request if the prescrip... Start Date: 02/02/22 Status: Ordered Creon 12,000 units oral delayed release capsule 1 capsule, By Mouth, 3 times a day, # 90 capsule, 0 Refills, Maintenance, 02/02/22 9:39:00 EST, EC Capsule, [facility] [id number], Partial fill upon patient request if the prescription is for a schedule II opioid drug., 167, c... Start Date: 02/02/22 Status: Ordered divalproex sodium 500 mg oral enteric coated tablet 1 tablet = 500 mg, By Mouth, 2 times a day, # 60 tablet, 0 Refills, Maintenance, 02/02/22 9:36:00 EST, Tablet, [facility] [id number], Partial fill upon patient request if theprescription is for a schedule II opioid drug., 167... Start Date: 02/02/22 Status: Ordered folic acid 1 mg oral tablet 1 mg, 1, tablet, By Mouth, Daily, # 30 tablet, Refills 1, Tot. Refills 1, Maintenance, 02/02/22 9:36:00 EST, Route to Pharmacy Electronically, [facility] [id number], Partial fill upon patient request if the prescription is for... Start Date: 02/02/22 Status: Ordered losartan 50 mg oral tablet 50 mg, 1, tablet, By Mouth, Daily, # 30 tablet, Refills 0, Tot. Refills 0, Maintenance, 02/02/22 9:37:00 EST, Route to Pharmacy Electronically, [facility] [id number], Partialfill upon patient request if the prescription is fo... Start Date: 02/02/22 Status: Ordered melatonin 3 mg oral tablet 1 tablet = 3 mg, By Mouth, Daily at bedtime, PRN Insomnia, # 30 tablet, 0 Refills, Maintenance, 02/02/22 9:37:00 EST, Tablet, [facility] [id number], Partial fill upon patientrequest if the prescription [...] 02/02/22 9:39:00 EST, Route to Pharmacy Electronically, [place], [place] - [id number],Partial fill upon patient request if the prescripti... Start Date: 02/02/22 Status: Ordered torsemide 20 mg oral tablet 1 tablet = 20 mg, By Mouth, 2 times a day, # 60 tablet, 0 Refills, Maintenance, 02/02/22 9:40:00 EST, Tablet, [place], [place] - [id number], Partial fill upon patient request if the [...] Primary Care Nurse Name: Lawrence Hendrix Position: [facility] RN Supv Member Role: Primary Care Nurse Name: Rufino Lloyd RN Position: [facility] RN Member Role: Primary Care Nurse Name: Cristina Carpenter RN Position: [facility] RN Member Role: Primary Care Nurse Name: Rosette Noriega RN Position: [facility] SN RN Member Role: Primary Care Nurse Name: Mary Hidalgo RN Position: [facility] PCO RN Member Role: Primary Care Nurse Name: Sissy Duran RN Position: [facility] AMB Nurse Member Role: Primary Care Nurse Name: Larissa Neely RN Position: [facility] RN Member Role: Primary Care Nurse Name: Rohit Zavaleta RN Position: [facility] RN Member Role: Primary Care Nurse Name: Erlinda Hartman NP Position: [facility] Associate Professional Member Role: Primary Care Nurse Address: Address: [address] [place] [id number] Name: Jong Suazo RN Position: [facility] RN Supv Member Role: Primary Care Nurse Name: Shante Solis RN Position: [facility] RN Member Role: Primary Care Nurse Name: Bettie Vanegas RN Position: [facility] RN Member Role: Primary Care Nurse Name: Jay Marroquin RN Position: [facility] RN Member Role: Primary Care Nurse Name: Sue Purdy RN Position: [facility] RN Member Role: Primary Care Nurse Name: Hector Perez RN Position: [facility] RN Member Role: Primary Care Nurse Name: Aleena Vizcaino RN Position: [facility] RN Member Role: Primary Care Nurse Name: Kacey Wilhelm RN Position: [facility] RN Member Role: Primary Care Nurse Name: Monalisa Barker Position: [facility] RN Member Role: Primary Care Nurse Name: Leslie Malloy RN Position: [facility] RN Member Role: Primary Care Nurse Name: Joaquina Herrear RN Position: [facility] RN Member Role: Primary Care Nurse Name: Diego Bell RN Position: [facility] RN Member Role: Primary Care Nurse Name: Ese Grey Position: [facility] RN Member Role: Primary Care Nurse Name: Chela Najera RN Position: [facility] ED RN W/OE and Tasks Member Role: Primary Care Nurse Name: Tootie Gonzalez RN Position: [facility] RN Member Role: Primary Care Nurse Name: Nancy Monte RN Position: S RN Member Role: Primary Care Nurse Name: Marilee Starkey Position: S RN Member Role: Primary Care Nurse Name: Silvina Dodd RN Position: S RN Member Role: Primary Care Nurse Name: Kiran Molina RN Position: S RN Member Role: Primary Care Nurse Name: Flaco Clifford DO Position: [facility] Renal MD Member Role: Lifetime Consulting Physician Address: Address: [address] [place], [place] [address] [place] [address]- Name: Marilee Richardson RN Position: [facility] RN Member Role: Primary Care Nurse Name: Rufino Johnson RN Position: [facility] RN Member Role: Primary Care Nurse Name: Jovita Camargo RN Position: [facility] RN Member Role: Primary Care Nurse Name: Ju Zhu Position: [facility] RN Member Role: Primary Care Nurse Name: Ester Palomares Position: [facility] RN Member Role: Primary Care Nurse Name: Emma Colbert RN Position: [facility] RN Supv Member Role: Primary Care Nurse Name: Hallie Gambino RN Position: [facility] Onco RN Member Role: Primary Care Nurse Name: Maya Ambriz RN Position: [facility] RN Member Role: Primary Care Nurse Name: Kristen Gar RN Position: [facility] RN Member Role: Primary Care Nurse Name: Luis Burton RN Position: [facility] RN Member Role: Primary Care Nurse Name: Jaki Bishop MD Position: [facility] Primary Care Physician Member Role: PCP Address: Address: [address] [place] [address]- Name: Leslie Ward RN Position: [facility] RN Member Role: Primary Care Nurse Name: Jacki Gomes RN Position: [facility] RN Member Role: Primary Care Nurse Name: Ximena Saab RN Position: [facility] RN Member Role: Primary Care Nurse Name: Ivette Shankar RN Position: [facility] RN Supv Member Role: Primary Care Nurse Name: Laura Mary RN Position: [facility] SN RN Member Role: Primary Care Nurse Name: Octavio Box RN Position: [facility] RN Member Role: Primary Care Nurse Name: Caren Hernandez RN Position: [facility] RN Supv Member Role: Primary Care Nurse Name: Kniza De La Cruz RN Position: [facility] RN Member Role: Primary Care Nurse Name: Veronica Queen RN Position: [facility] RN Member Role: Primary Care Nurse Name: Nely Wong RN Position: [facility] RN Member Role: Primary Care Nurse Name: Erica Brandon RN Position: [facility] RN Member Role: Primary Care Nurse Name: Adrianna Gonzalez RN Position: [facility] RN Member Role: Primary Care Nurse Name: Annmarie Feldman RN Position: [facility] PCO w/OE and EZ Script Member Role: Primary Care Nurse Name: Chinyere Espinoza RN Position: [facility] RN Member Role: Primary Care Nurse Name: Teresita Diallo RN Position: [facility] RN Member Role: Primary Care Nurse Name: Tennille Mcgarry RN Position: [facility] Hospital Personal Security Specialist Member Role: Primary Care Nurse Name: Vicky Salazar RN Position: [facility] RN Member Role: Primary Care Nurse Name: Jalen Mullins Position: [facility] RN Member Role: Primary Care Nurse Care Team Related Persons Name: MARYANNE KELLER Address: home [address] [place] [address] Name: MARYANNE KELLER Address: home [address] [facility] [address] [address] Name: GEORGIA KELLER Address: [place] [address] Name: BALDEV POLANCO Address: [place], [place]
--- OUTSIDE RECORDS SUMMARY | 2023-02-09 22:44 | XMS_ITS | Continuity of Care Document ---
Author Name Unknown Organization [facility] Address [address] [place] [address]- Care Team Providers Care Intake Rn Name Role Phone Jaki Bishop MD Primary Care Physician [facility] Date[facility]s): 04/17/20 - 05/17/[address] [address]- Allergies, Adverse Reactions, Alerts Substance Reaction Severity [...] Given Permanently Refused 1Admin Note: VIS GIVEN [id number] 2Admin Note: VIS GIVEN 2008-12 3Admin Note: vis 4Admin Note: vis 02/06/08 Medications acetaminophen 325 mg oral tablet 1, tablet, By Mouth, 4 times a day, PRN, not to exceed 4 TABLETS PER DAY, # 60 tablet, Refills 0, Tot. Refills 0, Acute, NEEDED, 05/01/20 9:37:00 EST, Route to Pharmacy Electronically, [facility], 168, cm, 04/16/20 8:30:00 EST, Height, 98.7, [...] 0 Refills, Maintenance, 04/16/20 11:06:00 EST, Tablet, [facility] [id number], Partial fill upon patient request if the prescription is for a schedule II opioid drug., 168,... Start Date: 04/16/20 Status: Ordered clozapine 50 mg oral tablet 3 tablet = 150 mg, By Mouth, Daily at bedtime, # 90 tablet, 0 Refills, Maintenance, 04/16/20 11:06:00 EST, Tablet, [facility] [id number], Partial fill upon patient request ifthe prescription is for a schedule II opioid drug.,... Start Date: 04/16/20 Status: Ordered Coreg 6.25 mg oral tablet 6.25 mg, 1, tablet, By Mouth, 2 times a day, # 60 tablet, Refills 0, Tot. Refills 0, Maintenance, 04/16/20 11:05:00 EST, Route to Pharmacy Electronically, [facility] [id number], Partial fill upon patient request, 168, cm, 03/22... Start Date: 04/16/20 Status: Ordered docusate sodium 100 mg oral capsule = 100 mg, By Mouth, 2 times a day, PRN Constipation., # 60 capsule, 3 Refills, Maintenance, 02/29/20 15:13:00 EST, Capsule, [facility] [id number], Partial fill upon patient request if the [...] Maintenance,04/16/20 11:06:00 EST, Route to Pharmacy Electronically, [facility] [id number], Partial fill upon patient request if the [...] mL, 1 Refills, Maintenance, 04/16/20 11:07:00 EST, [place], [place] - [id number],... Start Date: 04/16/20 Status: Ordered lactulose 10 gm/15 ml oral syrup 30 mL, By Mouth, 2 times a day, # 581 mL, 0 Refills, Acute, 03/25/20 11:49:00 EST, [facility],, TAKE 30 ML BY MOUTH 2 (two) [...] 1 Refills, Maintenance, 04/16/20 11:07:00 EST, Solution, [place], [place] - [id number], 168, cm, 04/16/20 8:30:00 EST, Height, 98.7, kg, 04/11/20 2:10:00 EST, Dry Weight Start Date: 04/16/20 Status: Ordered loratadine 10 mg oral tablet See Instructions, TAKE ONE TABLET BY MOUTH DAILY, # 30 tablet, Refills 5, Tot. Refills 5, 05/01/20 8:18:00 EST, Instructions Replace Required Details, Route to Pharmacy Electronically, [facility] [id number], 168, cm, 04/16/20... Start Date: 05/01/20 Status: [...] 1 Refills, Maintenance, 08/07/19 14:23:00 EDT, Tablet, [place], [place] -, 1 tablet By Mouth Daily, [...] 0 Refills, Maintenance, 04/16/20 11:08:00 EST, Gum, [place], [place] - [id number], Partial fill upon patient request if the [...] 5 Refills, Maintenance, 03/05/20 16:50:00 EST, Tablet, [facility] [id number], this is an increased, 1 tablet By [...] 1 Refills, Maintenance, 04/16/20 11:09:00 EST, Tablet, [facility] [id number], Partial fill upon patient request if the prescription is for a schedule II opioid drug., 168, cm, 01... Start Date: 04/16/20 Stop Date: 04/11/21 Status: Ordered Zenpep 10,000 units-32,000 units-42,000 units oral delayed release capsule 1 capsule, By Mouth, 3 times a day, # 90 capsule, 0 Refills, Maintenance, 04/16/20 11:09:00 EST, [place], [place] - [id number], 1 capsule By Mouth 3 times a [...] Active H/O tubal ligation(Confirmed) [facility] [phone](Confirmed) Active History of cholecystectomy(Confirmed) Active Hypertension(Confirmed) Active [...]
--- OUTSIDE RECORDS SUMMARY | 2023-02-09 22:44 | XMS_ITS | Continuity of Care Document ---
Author Name Unknown Organization [facility] Address [address] [place] [address]- Care Team Providers Care Area Plant Manager Name Role Phone Jaki Bishop MD Primary Care Physician [phone] [place] [facility] [place] 09/16/19 [facility] [address] [place] [address] [facility] Attending Physician: Jonathan Caraballo MD Admitting [...] Given Patient Refuses 1Admin Note: VIS GIVEN [id number] 2Admin Note: VIS GIVEN 2008-12 3Admin Note: vis 4Admin Note: vis 02/06/08 Medications acetaminophen 325 mg oral tablet 1, tablet, By Mouth, 4 times a day, PRN, no MORE THAN 4 TABLETS PER DAY., # 60 tablet, Refills 2, Tot. Refills 0, Acute, NEEDED, 08/07/19 23:17:00 EDT, Route to Pharmacy Electronically, [facility], 166, cm, 05/28/19 11:08:00 EDT, [...] 08/07/19 14:24:00 EDT, Route to Pharmacy Electronically, [facility] [place], [place] -, 166, cm, 05/28/19 11:08:00 EDT, Height, 91.8, kg, 02/23/19 17... Start Date: 08/07/19 Status: Ordered docusate sodium 100 mg oral capsule 100 mg, 1, capsule, By Mouth, 2 times a day, # 60 capsule, Refills 11, Tot. Refills 11, Maintenance, 02/21/19 14:45:44 EST, Route to Pharmacy Electronically, [id number], [place], [place] -, 168, cm, 02/14/19... Start Date: [...] Maintenance,03/27/19 16:10:00 EST, Route to Pharmacy Electronically, [facility] #[id number], 166, cm, 03/27/19 15:26:00 EST, Height, 91.8, kg, 02/23/19 17:03:... Start Date: 03/27/19 Stop Date: 10/23/19 Status: Ordered Glucerna (Vanilla Flavor) Glucerna (Vanilla Flavor), See Instructions, # 60 each, Refills 11, Tot. Refills 11, Maintenance, Drink 1 can BID. 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 Fax to Anna ( [facility], #[phone]), 07/26/19 15... Start Date: 07/26/19 Status: Ordered Humalog Kwik Pen 100 units/mL subcutaneous injection See Instructions, 4 Units for bood sugar above 120 mg/dl and then add 2 Units for every 50 mg/dl rise above 120. Three times a day before meals., # 15 mL, 6 Refills, Maintenance, 05/04/19 12:52:00 EST, [place], [place] - , Humalog ins... Start Date: [...] Refills, Maintenance, 07/26/19 8:25:00 EDT, REC Powder, [place], [place] -, 17 Gm By Mouth 2 [...] Weight Start Date: 07/30/19 Status: Ordered Pen [place], 31 G x 8 mm BD Ultra [...] Attn Dr. Mariano Andrade, Outpatient Psychiatry, at [phone]., See Instructions, # 1 application, Refills 0, Tot. Refills 0, Maintenance, Please draw CBC with dif (for ANC) weekly and fax re... Start Date: 11/21/15 Status: Ordered sacubitril-valsartan 97 mg-103 mg oral tablet 1 tablet, By Mouth, 2 times a day, # 60 tablet, 5 Refills, Maintenance, 08/27/19 7:36:00 EDT, Tablet, [facility] [place], [place] -, this is an increased, 1 [...] 04/20/19 10:38:00 EST, Route to Pharmacy Electronically, [facility] #[id number], 166, cm, 04/20/19 10:17:00 EST, Height, 91.8, kg, 02/23/19 17:03:00 EST, . Start Date: 04/20/19 Status: Ordered torsemide 20 mg oral tablet 2 tablet = 40 mg, By Mouth, Daily, # 180 tablet, 11 Refills, Maintenance, 04/20/19 10:38:00 EST, Tablet, [facility] #[id number], Replaces lower dose, 166, cm, 04/20/19 10:17:00 [...] Active H/O tubal ligation(Confirmed) [facility] [phone](Confirmed) Active History of cholecystectomy(Confirmed) Active Hypertension(Confirmed) Active [...]
--- OUTSIDE RECORDS SUMMARY | 2023-02-09 22:44 | XMS_ITS | Continuity of Care Document ---
Author Name Unknown Organization [facility] Address [address] [place] [address]- Care Team Providers Care Header Operator Name Role Phone Dario HAYDEN, Jaki Primary Care Physician [phone] [facility]counter [facility] Date[facility]s): 05/30/20 - 06/29/[address] [address]- Allergies, Adverse Reactions, Alerts Substance Reaction Severity [...] Given Permanently Refused 1Admin Note: VIS GIVEN [id number] 2Admin Note: VIS GIVEN 2008-12 3Admin Note: vis 4Admin Note: vis 02/06/08 Medications acetaminophen 325 mg oral tablet 1, tablet, By Mouth, 4 times a day, PRN, not to exceed 4 TABLETS PER DAY. Not to exceed 2000 mg/day. PRN Pain, # 60 tablet, Refills 0, Tot. Refills 0, Maintenance, NEEDED, 06/19/20 12:38:00 EDT, Route to Pharmacy Electronically, [facility]... Start Date: 06/19/20 Status: Ordered Alcohol [...] 11:06:00 EST, Tablet, [facility] [id number], Partial fill upon patient request if the prescription is for a schedule II opioid drug., 168,... Start Date: 04/16/20 Status: Ordered clozapine 50 mg oral tablet 3 tablet = 150 mg, By Mouth, Daily at bedtime, # 90 tablet, 0 Refills, Maintenance, 04/16/20 11:06:00 EST, Tablet, [facility] [id number], Partial fill upon patient request ifthe prescription is for a schedule II opioid drug.,... Start Date: 04/16/20 Status: Ordered Coreg 12.5 mg oral tablet 12.5 mg, 1, tablet, By Mouth, 2 times a day, # 180 tablet, Refills 1, Tot. Refills 1, Maintenance, 05/26/20 14:41:00 EST, Route to Pharmacy Electronically, [facility] [id number], Partial fill upon patient request if the prescr... Start Date: 05/26/20 Stop Date: 11/22/20 Status: Ordered docusate sodium 100 mg oral capsule = 100 mg, By Mouth, 2 times a day, PRN Constipation., # 60 capsule, 3 Refills, Maintenance, 02/29/20 15:13:00 EST, Capsule, [place], [place] - [id number], Partial fill upon patient request if the [...] Maintenance,05/28/20 13:46:00 EST, Route to Pharmacy Electronically, [place], [place] - [id number], Partial fill upon patient request if the presc... Start Date: 05/28/20 Status: Ordered Glucerna (Vanilla Flavor) Glucerna (Vanilla Flavor), See Instructions, # 60 each, Refills 11, Tot. Refills 11, Maintenance, Drink 1 can BID. 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 Fax to Anna ( [facility], #[phone]), 06/06/20 19... Start Date: 06/06/20 Status: Ordered [...] mL, 1 Refills, Maintenance, 04/16/20 11:07:00 EST, [facility] [id number],... Start Date: 04/16/20 Status: Ordered lactulose 10 gm/15 ml oral syrup 30 mL, By Mouth, 2 times a day, # 581 mL, 3 Refills, Maintenance, 06/27/20 11:11:00 EDT, [facility] [id number], 10, 30 mL By Mouth 2 times [...] Replace Required Details, Route to Pharmacy Electronically, [facility], [facility] [id number], 168, cm, 04/16/20... Start Date: 05/01/20 Status: Ordered multivitamin Multiple Vitamins oral tablet 1 tablet, By Mouth, Daily, # 90 tablet, 1 Refills, Maintenance, 05/26/20 13:28:00 EST, Tablet, [facility], [facility] [id number], 1 tablet By Mouth Daily, 168, cm, [...] 0 Refills, Maintenance, 04/16/20 11:08:00 EST, Gum, [facility], [place] - [id number], Partial fill upon patient request if the [...] 16:50:00 EST, Tablet, [facility] [id number], this is an increased, 1 tablet By Mouth 2 times a day,x30 days, 168, cm, 02/10/20 5:58:00 EST, Heigh... Start Date: 03/05/20 Stop Date: 09/01/20 Status: Ordered torsemide 20 mg oral tablet 1 tablet = 20 mg, By Mouth, Daily, # 30 tablet, 1 Refills, Maintenance, 04/16/20 11:09:00 EST, Tablet, [facility] [id number], Partial fill upon patient request if the prescription is for a schedule II opioid drug., 168, cm, 01... Start Date: 04/16/20 Stop Date: 04/11/21 Status: Ordered Zenpep 10,000 units-32,000 units-42,000 units oral delayed release capsule 1 capsule, By Mouth, 3 times a day, # 90 capsule, 0 Refills, Maintenance, 04/16/20 11:09:00 EST, [facility] [id number], 1 capsule By Mouth 3 times a [...] Active H/O tubal ligation(Confirmed) Active BHN/ CP Lime Trimmer/Janet salvador [facility] [phone](Confirmed) Active History of cholecystectomy(Confirmed) Active Hypertension(Confirmed) Active [...]
--- OUTSIDE RECORDS SUMMARY | 2023-02-09 22:44 | XMS_ITS | Continuity of Care Document ---
Author Name Unknown Organization [facility] Address [address] [place] [address]- Care Team Providers Care Repair Clerk Name Role Phone Jaki Bishop MD Primary Care Physician [facility] Date[facility]s): 05/08/21 - 06/07/[address] [address] Allergies, Adverse Reactions, Alerts Substance [...] to COVID vaccine 2Admin Note: VIS GIVEN [id number] 3Admin Note: VIS GIVEN 2008- 4Admin Note: [...] MOUTH DAILY, # 90 tablet, 1 Refills, [facility], 150, TAKE ONE TABLET BY MOUTH [...] Replace Required Details, Route to Pharmacy Electronically, [facility], 167.64, cm, 03/23/21 14:44:00 EST, Height, 100.9, [...] 3 Refills, Maintenance, 04/24/21 13:09:00 EST, Tablet, [facility] [id number], Partial fill upon patient request if the [...] 2 Refills, Maintenance,05/08/21 12:22:00 EST, CR Capsule, [facility] [id number], Partial fill upon patient request if the [...] Active H/O tubal ligation(Confirmed) Active BHN/ CP Sod Cutter/Janet salvador [facility] [phone](Confirmed) Active Heart failure(Confirmed) Active History of cholecystectomy(Confirmed) [...]
--- OUTSIDE RECORDS SUMMARY | 2023-02-09 22:44 | XMS_ITS | Continuity of Care Document ---
Author Name Unknown Organization [facility] Address [address] [place] [address]- Care Team Providers Care Vp Product Marketing Name Role Phone Jaki Bishop MD Primary Care Physician Encounter [facility] Date(s): 04/03/20 - 05/03/[address] [address]- Allergies, Adverse Reactions, Alerts Substance Reaction Severity [...] Given Permanently Refused 1Admin Note: VIS GIVEN [id number] 2Admin Note: VIS GIVEN 2008-12 3Admin Note: vis 4Admin Note: vis 02/06/08 Medications acetaminophen 325 mg oral tablet 1, tablet, By Mouth, 4 times a day, PRN, not to exceed 4 TABLETS PER DAY, # 60 tablet, Refills 0, Tot. Refills 0, Acute, NEEDED, 05/01/20 9:37:00 EST, Route to Pharmacy Electronically, [facility], 168, cm, 04/16/20 8:30:00 EST, Height, 98.7, [...] 0 Refills, Maintenance, 04/16/20 11:06:00 EST, Tablet, [facility] [id number], Partial fill upon patient request if the prescription is for a schedule II opioid drug., 168,... Start Date: 04/16/20 Status: Ordered clozapine 50 mg oral tablet 3 tablet = 150 mg, By Mouth, Daily at bedtime, # 90 tablet, 0 Refills, Maintenance, 04/16/20 11:06:00 EST, Tablet, [facility] [id number], Partial fill upon patient request ifthe prescription is for a schedule II opioid drug.,... Start Date: 04/16/20 Status: Ordered Coreg 6.25 mg oral tablet 6.25 mg, 1, tablet, By Mouth, 2 times a day, # 60 tablet, Refills 0, Tot. Refills 0, Maintenance, 04/16/20 11:05:00 EST, Route to Pharmacy Electronically, [facility] [id number], Partial fill upon patient request, 168, cm, 03/22... Start Date: 04/16/20 Status: Ordered docusate sodium 100 mg oral capsule = 100 mg, By Mouth, 2 times a day, PRN Constipation., # 60 capsule, 3 Refills, Maintenance, 02/29/20 15:13:00 EST, Capsule, [facility] [id number], Partial fill upon patient request if the [...] Maintenance,04/16/20 11:06:00 EST, Route to Pharmacy Electronically, [facility] [id number], Partial fill upon patient request if the [...] mL, 1 Refills, Maintenance, 04/16/20 11:07:00 EST, [facility], [place] - [id number],... Start Date: 04/16/20 Status: Ordered lactulose 10 gm/15 ml oral syrup 30 mL, By Mouth, 2 times a day, # 581 mL, 0 Refills, Acute, 03/25/20 11:49:00 EST, [facility],, TAKE 30 ML BY MOUTH 2 (two) [...] 1 Refills, Maintenance, 04/16/20 11:07:00 EST, Solution, [facility], [place] - [id number], 168, cm, 04/16/20 8:30:00 EST, Height, 98.7, kg, 04/11/20 2:10:00 EST, Dry Weight Start Date: 04/16/20 Status: Ordered loratadine 10 mg oral tablet See Instructions, TAKE ONE TABLET BY MOUTH DAILY, # 30 tablet, Refills 5, Tot. Refills 5, 05/01/20 8:18:00 EST, Instructions Replace Required Details, Route to Pharmacy Electronically, [facility], [place] - [id number], 168, cm, 04/16/20... Start Date: 05/01/20 Status: [...] 1 Refills, Maintenance, 08/07/19 14:23:00 EDT, Tablet, [place], [place] -, 1 tablet By Mouth Daily, [...] 0 Refills, Maintenance, 04/16/20 11:08:00 EST, Gum, [place], [place] - [id number], Partial fill upon patient request if the [...] 5 Refills, Maintenance, 03/05/20 16:50:00 EST, Tablet, [facility] [id number], this is an increased, 1 tablet By [...] 1 Refills, Maintenance, 04/16/20 11:09:00 EST, Tablet, [facility] [id number], Partial fill upon patient request if the prescription is for a schedule II opioid drug., 168, cm, 01... Start Date: 04/16/20 Stop Date: 04/11/21 Status: Ordered Zenpep 10,000 units-32,000 units-42,000 units oral delayed release capsule 1 capsule, By Mouth, 3 times a day, # 90 capsule, 0 Refills, Maintenance, 04/16/20 11:09:00 EST, [facility] [id number], 1 capsule By Mouth 3 times a [...] Active H/O tubal ligation(Confirmed) Active BHN/ CP Asset Protection Detective/Janet salvador [facility] [phone](Confirmed) Active History of cholecystectomy(Confirmed) Active Hypertension(Confirmed) Active [...]
--- OUTSIDE RECORDS SUMMARY | 2023-02-09 22:44 | XMS_ITS | Continuity of Care Document ---
Author Name Unknown Organization [facility] Address [address] [place] [address]- Care Team Providers Care Supervisor Multifocal Lens Name Role Phone Jaki Bishop MD Primary Care Physician En[place] [facility] [place] Date(s): 07/03/20 - 08/07/[address] [address]- Attending Physician: Luis Ho MD Admitting Physician: [...] Given Permanently Refused 1Admin Note: VIS GIVEN [id number] 2Admin Note: VIS GIVEN 2008-12 3Admin Note: vis 4Admin Note: vis 02/06/08 Medications acetaminophen 325 mg oral tablet 1, tablet, By Mouth, 4 times a day, PRN, not to exceed 4 TABLETS PER DAY. Not to exceed 2000 mg/day. PRN Pain, # 60 tablet, Refills 0, Tot. Refills 0, Maintenance, NEEDED, 07/22/20 10:39:00 EDT, Route to Pharmacy Electronically, [facility]... Start Date: 07/22/20 Status: Ordered Alcohol [...] 0 Refills, Maintenance, 04/16/20 11:06:00 EST, Tablet, [facility] [id number], Partial fill upon patient request if the prescription is for a schedule II opioid drug., 168,... Start Date: 04/16/20 Status: Ordered clozapine 50 mg oral tablet 3 tablet = 150 mg, By Mouth, Daily at bedtime, # 90 tablet, 0 Refills, Maintenance, 04/16/20 11:06:00 EST, Tablet, [place], [place] - [id number], Partial fill upon patient request ifthe prescription is for a schedule II opioid drug.,... Start Date: 04/16/20 Status: Ordered Comfort EZ Pen [place] 31 gauge x 5/16 Comfort EZ Pen [place] 31 gauge x 5/16 , See Instructions, [...] 05/26/20 14:41:00 EST, Route to Pharmacy Electronically, [facility] [id number], Partial fill upon patient request if the prescr... Start Date: 05/26/20 Stop Date: 11/22/20 Status: Ordered docusate sodium 100 mg oral capsule = 100 mg, By Mouth, 2 times a day, PRN Constipation., # 60 capsule, 5 Refills, Maintenance, 07/21/20 10:54:00 EDT, Capsule, [facility] [id number], Partial fill upon patient request if the [...] Maintenance,05/28/20 13:46:00 EST, Route to Pharmacy Electronically, [facility] [id number], Partial fill upon patient request if the [...] K86.1, K74.6, E11.65. [facility] to [facility] #[phone]), 06/06/20 19... Start Date: 06/06/20 Status: Ordered [...] mL, 1 Refills, Maintenance, 04/16/20 11:07:00 EST, [place], [place] - [id number],... Start Date: 04/16/20 Status: Ordered lactulose 10 gm/15 ml oral syrup 30 mL, By Mouth, 2 times a day, # 581 mL, 3 Refills, Maintenance, 06/27/20 11:11:00 EDT, [place], [place] - [id number], 10, 30 mL By Mouth 2 times [...] 3 Refills, Maintenance, 07/29/20 10:17:00 EDT, Solution, [facility] [id number], 168, cm, 04/16/20 8:30:00 EST, Height, 98.7, kg, 03/22... Start Date: 07/29/20 Status: Ordered loratadine 10 mg oral tablet See Instructions, TAKE ONE TABLET BY MOUTH DAILY, # 30 tablet, Refills 5, Tot. Refills 5, 05/01/20 8:18:00 EST, Instructions Replace Required Details, Route to Pharmacy Electronically, [facility] [id number], 168, cm, 04/16/20... Start Date: 05/01/20 Status: Ordered multivitamin Multiple Vitamins oral tablet 1 tablet, By Mouth, Daily, # 90 tablet, 1 Refills, Maintenance, 05/26/20 13:28:00 EST, Tablet, [facility], [place] - [id number], 1 tablet By Mouth Daily, 168, cm, [...] 0 Refills, Maintenance, 04/16/20 11:08:00 EST, Gum, [place], [place] - [id number], Partial fill upon patient request if the [...] 5 Refills, Maintenance, 07/14/20 16:30:00 EDT, Tablet, [place], [place] - [id number], this is an increased, 1 tablet By Mouth 2 times a day,x30 days, 168, cm, 04/16/20 8:30:00 EST, Heigh... Start Date: 07/14/20 Stop Date: 01/10/21 Status: Ordered torsemide 20 mg oral tablet 1 tablet = 20 mg, By Mouth, Daily, # 30 tablet, 1 Refills, Maintenance, 04/16/20 11:09:00 EST, Tablet, [place], [place] - [id number], Partial fill upon patient request if the prescription is for a schedule II opioid drug., 168, cm, ... Start Date: 04/16/20 Stop Date: 04/11/21 Status: Ordered Zenpep 10,000 units-32,000 units-42,000 units oral delayed release capsule 1 capsule, By Mouth, 3 times a day, # 90 capsule, 0 Refills, Maintenance, 04/16/20 11:09:00 EST, [place], [place] - [id number], 1 capsule By Mouth 3 times a [...] Active H/O tubal ligation(Confirmed) Active BHN/BH CP Geophysical Data Technician/Janet Pandey [phone](Confirmed) Active History of cholecystectomy(Confirmed) Active Hypertension(Confirmed) Active [...]
--- OUTSIDE RECORDS SUMMARY | 2023-02-09 22:44 | XMS_ITS | Continuity of Care Document ---
Author Name Unknown Organization [facility] Address [address] [place] [address]- Care Team Providers Care Box Printer Name Role Phone Dario HAYDEN, Jaki Primary Care Physician [phone] Encounter [facility] Date(s): 01/26/21 - 03/25/[address] [address]- Encounter Diagnosis Pulmonary HTN, Severe(Discharge Diagnosis) - 02/23/21 Heart failure with reduced ejection fraction(Discharge Diagnosis) - 02/23/21 Diabetes(Discharge Diagnosis) - 02/23/21 Cirrhosis of liver (Steatohepatitis/NAFLD, Suspected GI Sarcoidosis but no findings sarcoid 2013 liver biopsy)(Discharge Diagnosis) - 02/23/21 Biventricular HF (heart failure, EF 20-30%)(Discharge Diagnosis) - 02/23/21 History of Chronic pancreatitis & Pseudocyst(Discharge Diagnosis) - 02/23/21 Attending Physician: Akua Leon MD Admitting Physician: Akua Leon MD Referring Physician: Prosper Lugo MD Allergies, Adverse Reactions, Alerts Substance Reaction [...] to COVID vaccine 2Admin Note: VIS GIVEN [id number] 3Admin Note: VIS GIVEN 2008- 4Admin Note: [...] Active H/O tubal ligation(Confirmed) Active BHN/ CP Audio/Visual Operator/Janet Pandey [phone](Confirmed) Active Heart failure(Confirmed) Active History of cholecystectomy(Confirmed) [...] e jection fraction(Confirmed) Active Tobacco use(Confirmed) Active Diagnosis Diagnosis Type Effective Dates Health Status Clinical Service Informant Pulmonary HTN, Severe Discharge Diagnosis 02/23/21 Heart failure with reduced ejection fraction Discharge Diagnosis 02/23/21 Diabetes Discharge Diagnosis 02/23/21 Cirrhosis of liver (Steatohepatitis/NA FLD, Suspected GI Sarcoidosis but no findings sarcoid 2012 liver biopsy) Discharge Diagnosis 02/23/21 Biventricular HF (heart failure, EF 20-30%) Discharge Diagnosis 02/23/21 History of Chronic pancreatitis & Pseudocyst Discharge Diagnosis 02/23/21 Social History Social History Type Response Smoking Status 10 or more cigarette s (1/2 pack or more)/day in last 30 days; Interested in cessation: No; Patient wants NRT during admission No;Never; Type: Cigarettes; Exposure to Secondhand Smoke: Yes; Number of years: 30; entered on: 02/07/21 Sex
--- OUTSIDE RECORDS SUMMARY | 2023-02-09 22:44 | XMS_ITS | Continuity of Care Document ---
Author Name Unknown Organization [facility] Address [address] [place] [address]- Care Team Providers Care Manager Materials Management Name Role Phone Jaki Bishop MD Primary Care Physician [place] [facility] [place](s[place] 10/05/19 - 11/09/[address] [address]- [facility] Attending Physician: Jaki Bishop MD Admitting [...] Given Permanently Refused 1Admin Note: VIS GIVEN [id number] 2Admin Note: VIS GIVEN 2008-12 3Admin Note: vis 4Admin Note: vis 02/06/08 Medications acetaminophen 325 mg oral tablet 1, tablet, By Mouth, 4 times a day, PRN, no MORE THAN 4 TABLETS PER DAY., # 60 tablet, Refills 2, Tot. Refills 0, Acute, NEEDED, 08/07/19 23:17:00 EDT, Route to Pharmacy Electronically, [facility], 166, cm, 05/28/19 11:08:00 EDT, Height, [...] 08/07/19 14:24:00 EDT, Route to Pharmacy Electronically, [place], [place] -, 166, cm, 05/28/19 11:08:00 EDT, [...] 02/21/19 14:45:44 EST, Route to Pharmacy Electronically, [id number], [place], [place] -, 168, cm, 02/14/19... Start Date: [...] Maintenance,03/27/19 16:10:00 EST, Route to Pharmacy Electronically, [facility][id number], 166, cm, 03/27/19 15:26:00 EST, Height, 91.8, [...] K86.1, K74.6, E11.65. Fax to [facility] ( [facility], #[phone]), 07/26/19 15... Start Date: 07/26/19 Status: Ordered Golytely - oral powder for reconstitution See Instructions, split prep, # 4,000 mL, 0 Refills, Maintenance, 09/24/19 14:15:00 EDT, REC Powder, [place], [place] -, split prep, 166, cm, 09/24/19 [...] mL, 6 Refills, Maintenance, 05/04/19 12:52:00 EST, [place], [place] - , Humalog ins... Start Date: [...] Refills, Maintenance, 07/26/19 8:25:00 EDT, REC Powder, [place], [place] -, 17 Gm By Mouth 2 times a day,PRN:Oth... Start Date: 07/26/19 Status: Ordered MiraLax Powder = 17 Gm, By Mouth, 2 times a day, 0 Refills, Maintenance, 10/11/19 0:39:00 EDT Start Date: 10/11/19 Status: Ordered multivitamin Multiple Vitamins oral tablet 1 tablet, By Mouth, Daily, # 90 tablet, 1 Refills, Maintenance, 08/07/19 14:23:00 EDT, Tablet, [place], [place] -, 1 tablet By Mouth Daily, [...] Weight Start Date: 10/29/19 Status: Ordered Pen [place], 31 G x 8 mm BD Ultra [...] Attn Dr. Mariano Andrade, Outpatient Psychiatry, at [phone]., See Instructions, # 1 application, Refills 0, [...] 5 Refills, Maintenance, 08/27/19 7:36:00 EDT, Tablet, [facility] [place], [place] -, this is an increased, 1 [...] 04/20/19 10:38:00 EST, Route to Pharmacy Electronically, [facility] #[id number], 166, cm, 04/20/19 10:17:00 EST, Height, 91.8, kg, 02/23/19 17:03:00 EST, Start Date: 04/20/19 Status: Ordered torsemide 20 mg oral tablet 2 tablet = 40 mg, Daily, 0 Refills, Maintenance, 10/10/19 23:41:00 EDT Start Date: 10/10/19 Status: Ordered torsemide 20 mg oral tablet 2 tablet = 40 mg, By Mouth, Daily, # 180 tablet, 11 Refills, Maintenance, 04/20/19 10:38:00 EST, Tablet, [facility] #[id number], Replaces lower dose, 166, cm, 04/20/19 10:17:00 [...] Active H/O tubal ligation(Confirmed) Active BHN/BH CP Package Worker/Janet salvador [facility] [phone](Confirmed) Active History of cholecystectomy(Confirmed) Active Hypertension(Confirmed) Active [...]
--- OUTSIDE RECORDS SUMMARY | 2023-02-09 22:44 | XMS_ITS | Continuity of Care Document ---
Author Name Unknown Organization [facility] Address [address] [place] [address]- Care Team Providers Care District Wildlife Manager Name Role Phone Dario HAYDEN, Jaki Primary Care Physician Encounter [facility] Date(s): 02/06/21 - 03/08/[address] [address] Allergies, Adverse Reactions, Alerts Substance [...] to COVID vaccine 2Admin Note: VIS GIVEN [id number] 3Admin Note: VIS GIVEN 2008- 4Admin Note: [...] 02/06/21 19:54:00 EST, Route to Pharmacy Electronically, [facility] [id number], Partial fill upon patient request if the [...] mL, 5 Refills, Maintenance, 02/06/21 19:54:00 EST, [facility] [id number], Partial fill upon patient request if the prescription is for a schedule II opioid d... Start Date: 02/06/21 Stop Date: 08/05/21 Status: Ordered loratadine 10 mg oral tablet 10 mg, 1, tablet, By Mouth, Daily, # 30 tablet, Refills 0, Tot. Refills 0, Maintenance, 11/28/20 9:25:00 EDT, Route to Pharmacy Electronically, [facility], Partial fill upon patient request [...] a day, # 60 tablet, 2 Refills, [facility], 166.6, cm, 02/16/21 15:24:00 EST, Height, 94.4, kg, 02/11/21 14:27:00 EST, Dry Weight Start Date: 03/05/21 Status: Ordered Nicoderm C-Q Clear 14 mg/24 hr transdermal film, extended release 1 patch, Topically, Daily, for 30 days, # 30 patch, 0 Refills, Acute 03/18/21 13:06:00 EST, 02/16/21 13:06:00 EST, Patch, [facility], Partial fill upon patient request if the prescription is for a schedule II opioid drug., 166.6, cm, ... Start Date: 02/16/21 Stop Date: 03/18/21 Status: Ordered Nicotine 2 mg gum = 2 mg, Chew, Every 2 hours, PRN Other, for 6 week(s), Nicotine Cravings, # 40 each, 1 Refills, Acute 05/11/21 13:06:00 EST, 02/16/21 13:06:00 EST, Gum, [facility], Partial fill upon patient request if [...] 0 Refills, Maintenance,02/26/21 18:23:00 EST, CR Capsule, [facility], Partial fill upon patient request [...] 0 Refills, Maintenance, 11/28/20 9:27:00 EDT, Nasal S [place], [facility] 3, Partial fill upon patient request [...] 5 Refills, Maintenance, 02/06/21 19:56:00 EST, Tablet, [place], [place] - [id number], Partial fill upon patient request if the [...] Active H/O tubal ligation(Confirmed) Active 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
--- OUTSIDE RECORDS SUMMARY | 2023-02-09 22:44 | XMS_ITS | Continuity of Care Document ---
Author Name Unknown Organization [facility] Address [address] [place] [address]- Care Team Providers Care Oil Well Shooter Name Role Phone Jaki Bishop MD Primary Care Physician [phone] Encounter [facility] [place] Date(s): 10/19/21 - 11/18/[address] [address]- Attending Physician: Rufino Scott MD Admitting Physician: Rufino Scott MD Allergies, Adverse Reactions, Alerts Substance Reaction [...] to COVID vaccine 2Admin Note: VIS GIVEN [id number] 3Admin Note: VIS GIVEN 2008- 4Admin Note: vis 5Admin Note: vis 02/06/08 Medications Abilify 10 mg oral tablet 10 mg, 1, tablet, By Mouth, Daily, # 90 tablet, Refills 3, Tot. Refills 3, Maintenance, 07/07/21 8:56:00 EDT, Route to Pharmacy Electronically, [place], [place] - [id number], Partialfill upon patient request if the prescription [...] 07/07/21 8:56:00 EDT, Route to Pharmacy Electronically, [facility] [id number], Partial fill upon patient request if the prescri... Start Date: 07/07/21 Status: Ordered Comfort EZ Pen [place] 31 gauge x 5/16 USE TO inject insulin 4 (FOUR) TIMES DAILY Start Date: 07/03/21 Status: Ordered Coreg 6.25 mg oral tablet 6.25 mg, 1, tablet, By Mouth, 2 times a day, # 180 tablet, Refills 3, Tot. Refills 3, Maintenance, 07/07/21 8:56:00 EDT, Route to Pharmacy Electronically, [facility] [id number], Partial fill upon patient request if the prescri... Start Date: 07/07/21 Status: Ordered Daily Multiple Vitamins oral tablet 1 tablet, By Mouth, Daily, # 90 tablet, 3 Refills, Maintenance, 07/07/21 8:56:00 EDT, Tablet, [facility] [id number], Partial fill upon patient request if the prescription is for a schedule II opioid drug., 1 tablet By Mouth Da... Start Date: 07/07/21 Status: Ordered divalproex sodium 250 mg oral enteric coated tablet 1 tablet = 250 mg, By Mouth, Daily in AM, # 90 tablet, 3 Refills, Maintenance, 07/07/21 8:56:00 EDT, Tablet, [facility] [id number], Partial fill upon patient request if the prescription is for a schedule II opioid drug., 167,... Start Date: 07/07/21 Status: Ordered divalproex sodium 500 mg oral enteric coated tablet 1 tablet = 500 mg, By Mouth, Daily at bedtime, # 90 tablet, 3 Refills, Maintenance, 07/07/21 8:56:00 EDT, Tablet, [facility] [id number], Partial fill upon patient request if the prescription is for a schedule II opioid drug.,... Start Date: 07/07/21 Status: Ordered Eucerin Unscented topical lotion See Instructions, Apply daily as directed to dry skin. 16 oz, # 1 each, 3 Refills, Maintenance, 07/07/21 9:02:00 EDT, [facility] [id number], Partial fill upon patient requestif the prescription is for a schedule II opioid . Start Date: 07/07/21 Status: Ordered folic acid 1 mg oral tablet 1 mg, 1, tablet, By Mouth, Daily, # 30 tablet, Refills 1, Tot. Refills 1, Maintenance, 10/21/21 12:44:00 EDT, Route to Pharmacy Electronically, [place], [place] - [id number], Partialfill upon patient request if the prescription [...] 07/07/21 8:56:00 EDT, Route to Pharmacy Electronically, [facility] [id number], Partial fill upon patient request if the p... Start Date: 07/07/21 Status: Ordered gabapentin 100 mg oral capsule 200 mg, 2, capsule, By Mouth, Daily at bedtime, # 180 capsule, Refills 3, Tot. Refills 3, Maintenance, 07/07/21 8:56:00 EDT, Route to Pharmacy Electronically, [facility] [id number], Partial fill upon patient request if the pre... Start Date: 07/07/21 Status: Ordered guaiFENesin 100 mg/5 mL oral liquid 5 mL = 100 mg, By Mouth, Every 4 hours, PRN for cough, # 300 mL, 0 Refills, Acute 07/07/22 9:05:00 EDT, 07/07/21 9:02:00 EDT, Liquid, [facility] [id number], Partial fill uponpatient request if the prescription [...] day, # 581 mL, 3 Refills, [facility], , TAKE 30mls BY MOUTH 2 (two) times a day, 167, cm, 07/07/21 8:39:00 EDT, Height, 95.6, kg, 06/29/21 18:39:00 EDT, Dry Weight Start Date: 08/10/21 Status: Ordered Lantus Solostar Pen 100 units/mL subcutaneous solution = 16 units, Subcutaneous Infusion, Daily, # 15 mL, 5 Refills, Maintenance, 09/11/21 17:25:00 EDT, [facility] [id number], Partial fill upon patient request if the prescriptionis for a schedule II opioid drug., 167, cm, ... Start Date: 09/11/21 Status: Ordered loratadine 10 mg oral tablet 10 mg, 1, tablet, By Mouth, Daily, # 90 tablet, Refills 3, Tot. Refills 3, Maintenance, 07/07/21 8:56:00 EDT, Route to Pharmacy Electronically, [facility] [id number], Partialfill upon patient request if the prescription is fo... Start Date: 07/07/21 Status: Ordered magnesium oxide 400 mg oral tablet 1 tablet = 400 mg, By Mouth, 2 times a day, # 180 tablet, 3 Refills, Maintenance, 07/07/21 8:56:00 EDT, Tablet, [facility] [id number], Partial fill upon patient request if the prescription is for a schedule II opioid drug., 16... Start Date: 07/07/21 Status: Ordered melatonin 3 mg oral tablet 1 tablet = 3 mg, By Mouth, Daily at bedtime, PRN Insomnia, # 90 tablet, 3 Refills, Maintenance, 07/07/21 8:56:00 EDT, Tablet, [facility] [id number], Partial fill upon patientrequest if the prescription is for a schedule II op... Start Date: 07/07/21 Status: Ordered nicotine 2 mg oral transmucosal lozenge 1 lozenge = 2 mg, By Mouth, Every hour, PRN Other, Nicotine Withdrawal Symptoms (not to exceed 20 lozenges per day), # 72 lozenge, 3 Refills, Maintenance, 07/07/21 8:56:00 EDT, Lozenge, [facility] [id number], Partial fill upon... Start Date: 07/07/21 Status: Ordered pancrelipase 10,000 units-32,000 units-42,000 units oral delayed release capsule 1 capsule, By Mouth, 3 times a day, with each meal and snack, # 270 capsule, 3 Refills, Maintenance, 10/21/21 17:17:00 EDT, CR Capsule, [facility] [id number], Partial fill upon patient request if the prescription is for a sche... Start Date: 10/21/21 Status: Ordered pantoprazole 40 mg oral delayed release tablet 1 tablet = 40 mg, By Mouth, Daily, # 90 tablet, 3 Refills, Maintenance, 10/19/21 14:26:00 EDT, EC Tablet, 167, cm, 07/07/21 8:39:00 EDT, Height, 95.6, kg, 06/29/21 18:39:00 EDT, Dry Weight Start Date: 10/19/21 Status: Ordered Pen [place], 31 G x 8 mm BD Ultra [...] 10/21/21 12:48:00 EDT, Route to Pharmacy Electronically, [facility] [id number],Partial fill upon patient request if the prescripti... 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
--- OUTSIDE RECORDS SUMMARY | 2023-02-09 22:44 | XMS_ITS | Continuity of Care Document ---
Author Name Unknown Organization [facility] Address [address] [place] [address]- Care Team Providers Care Casing Trimmer Name Role Phone Dario HAYDEN, Jaki Primary Care Physician [facility] Date[facility]s): 05/29/21 - 06/28/[address] [id number]- Allergies, Adverse Reactions, Alerts Substance Reaction Severity [...] to COVID vaccine 2Admin Note: VIS GIVEN [id number] 3Admin Note: VIS GIVEN 2008- 4Admin Note: [...] MOUTH DAILY, # 90 tablet, 1 Refills, [facility], 150, TAKE ONE TABLET BY [...] AT BEDTIME, # 15 mL, 3 Refills, [facility], 167, cm, 06/24/21 8:27:00 EDT, Height, 96.9, kg, 06/21/21 7:45:00 EDT, Dry Weight Start Date: 06/24/21 Status: Ordered lithium 300 mg oral tablet [...] Replace Required Details, Route to Pharmacy Electronically, [facility], 167.64, cm, 03/23/21 14:44:00 EST, Height, [...] 3 Refills, Maintenance, 04/24/21 13:09:00 EST, Tablet, [facility] [place] [place] - [id number], Partial fill upon patient request if the [...] 2 Refills, Maintenance,05/08/21 12:22:00 EST, CR Capsule, [place], [place] - [id number], Partial fill upon patient request if the [...] Active H/O tubal ligation(Confirmed) Active BHN/ [facility] [phone](Confirmed) Active Heart failure(Confirmed) Active History of cholecystectomy(Confirmed) [...]
--- OUTSIDE RECORDS SUMMARY | 2023-02-09 22:45 | XMS_ITS | Continuity of Care Document ---
Author Name Unknown Organization [facility] Address [address] [place] [address]- Care Team Providers Care Safety Representative Name Role Phone Jaki Bishop MD Primary Care Physician [facility] Date(s): 09/16/22 - 10/16/[address] [address] Allergies, Adverse Reactions, Alerts Substance Reaction [...] to COVID vaccine 2Admin Note: VIS GIVEN [id number] 3Admin Note: VIS GIVEN 2008- 4Admin Note: vis 5Admin Note: vis 02/06/08 Medications albuterol 90 mcg/inh inhalation powder 2 puffs, Inhalation, Every 4 hours, PRN as needed, PRN Wheezing, # 1 each, 1 Refills, Maintenance, 06/28/22 14:49:00 EDT, Powder, [facility] [id number], Partial fill upon patient request if the [...] 16:04:00 EDT, Route to Pharmacy Electronically, [facility] [id number], Partialfill upon patient request if the prescription is fo... Start Date: 07/16/22 Status: Ordered benztropine 1 mg oral tablet 0.5 mg, 0.5, tablet, By Mouth, 2 times a day, # 30 tablet, Refills 3, Tot. Refills 3, Maintenance, 09/17/22 1:51:00 EDT, Route to Pharmacy Electronically, [facility] [id number], Partial fill upon patient request if the prescri... Start Date: 09/17/22 Stop Date: 01/15/23 Status: Ordered carvedilol 3.125 mg oral tablet 3.125 mg, 1, tablet, By Mouth, 2 times a day, # 60 tablet, Refills 2, Tot. Refills 2, Maintenance, 09/17/22 1:50:00 EDT, Route to Pharmacy Electronically, [facility] [id number], Partial fill upon patient request if the prescri... Start Date: 09/17/22 Status: Ordered cloNIDine 0.1 mg oral tablet 0.1 mg, 1, tablet, By Mouth, Daily at bedtime, # 30 tablet, Refills 2, Tot. Refills 2, Maintenance,09/17/22 1:50:00 EDT, Route to Pharmacy Electronically, [facility] [id number], Partial fill upon patient request if the prescr... Start Date: 09/17/22 Status: Ordered Creon 12,000 units oral delayed release capsule 1 capsule, By Mouth, 3 times a day, # 90 capsule, 3 Refills, Maintenance, 09/17/22 1:49:00 EDT, EC Capsule, [facility] [id number], Partial fill upon patient request if the [...] 1:48:00 EDT, Route to Pharmacy Electronically, [facility] [id number], 160, cm, 07/26/22 12:51:00 EDT, Height, 89.2, [...] 09/17/22 1:50:00 EDT, Route to Pharmacy Electronically, [facility], [facility] [id number], Partialfill upon patient request if the prescription [...] mL, 5 Refills, Maintenance, 09/17/22 1:49:00 EDT, [facility], [facility] [id number], 15, 30 mL By Mouth 2 times a day, 160, cm, 05/08/23 12:51:00 EDT, Height, 89.2, kg, 07/21/22 3:29:00 EDT, Dry Weight Start Date: 09/17/22 Status: Ordered Lantus Solostar Pen 100 units/mL subcutaneous solution = 6 units, Subcutaneous Injection, Daily in AM, # 10 mL, 2 Refills, Maintenance, 04/29/22 14:34:00 EST, Solution, [facility] [id number], Partial fill upon patient request if the prescription is for a schedule II opioid drug.,... Start Date: 04/29/22 Status: Ordered melatonin 3 mg oral tablet = 3 mg, By Mouth, Daily at bedtime, PRN Insomnia, for 14 days, # 120 tablet, 0 Refills, Acute 10/25/22 9:55:00 EDT, 10/11/22 9:55:00 EDT, Tablet, [facility] [id number], Partial fill upon patient request if the prescription is... Start Date: 10/11/22 Stop Date: 10/25/22 Status: Ordered multivitamin Multiple Vitamins oral tablet 1 tablet, By Mouth, Daily, # 90 tablet, 1 Refills, Maintenance, 04/02/22 16:44:00 EST, Tablet, [facility] [id number], Partial fill upon patient request if the prescription isfor a schedule II opioid drug., 1 tablet By Mouth D... Start Date: 04/02/22 Status: Ordered Nicotine 2 mg gum = 2 mg, Chew, Every hour, PRN Other, for 4 week(s), Nicotine Withdrawal Symptoms (NOT to exceed 24 pieces per day), # 160 each, 0 Refills, Acute 11/08/22 9:56:00 EDT, 10/11/22 9:56:00 EDT, Gum, [facility] [id number], Partial f... Start Date: 10/11/22 Stop Date: 11/08/22 Status: Ordered pantoprazole 40 mg oral delayed [...] 10/12/22 10:21:00 EDT, Route to Pharmacy Electronically, [facility] [place] - [id number], Partial fill upon patient request if the prescription... Start Date: 10/12/22 Stop Date: 11/11/22 Status: Ordered risperiDONE 3 mg oral tablet 3 mg, 1, tablet, By Mouth, Daily at bedtime, # 30 tablet, Refills 0, Tot. Refills 0, Maintenance, 10/12/22 10:21:00 EDT, Route to Pharmacy Electronically, [facility] [place] - [id number], Partial fill upon patient request if the [...] tablet, Refills 0, Tot. Refills 0, Acute 11/10/22 9:56:00 EDT, 10/11/22 9:56:00 EDT, Route to Pharmacy Electronically, [facility] [place] - [id number], Partial fill upon patient requ... Start Date: 10/11/22 Stop Date: 11/10/22 Status: Ordered tiotropium 2.5 mcg/inh inhalation aerosol 2 puffs, Inhalation, Daily, # 1 each, 5 Refills, Maintenance, 09/17/22 1:52:00 EDT, Inhaler, [facility] [place] - [id number], Partial fill upon patient request if the prescription is for a schedule II opioid drug., 160, cm, 07/26/22 12:... Start Date: 09/17/22 Stop Date: 03/16/23 Status: Ordered traZODone 50 mg oral tablet 50 mg, 1, tablet, By Mouth, Daily at bedtime, # 30 tablet, Refills 2, Tot. Refills 2, Maintenance, 09/17/22 1:47:00 EDT, Route to Pharmacy Electronically, [place], [place] - [id number], Partial fill upon patient request if the [...] Care Nurse Name: Nazia Norris RN Position: S Outreach Member Role: Primary Care Nurse Name: [...] Role: Primary Care Nurse Address: Address: [address] [place] [id number] Name: Shante Solis RN Position: [facility] [...] Chela Najera RN Position: [facility] MALOU RN W/OE and Tasks Member Role: [...] Member Role: Lifetime Consulting Physician Address: Address: [address] [place], [place] [address] [place] [address]- Name: Marilee Richardson RN Position: [facility] RN Member Role: Primary Care Nurse Name: Rufino Johnson RN Position: [facility] RN Member Role: Primary Care Nurse Name: Judson Larry Position: [facility] RN Member Role: Primary Care Nurse Name: Jovita Cmaargo RN Position: [facility] RN Member [...] Primary Care Member Role: PCP Address: Address: [address] [place] [address]- Name: Lucian Krause RN Position: [facility] RN Member Role: Primary Care Nurse Name: Misty Tariq Position: [facility] RN Member Role: Primary Care Nurse Name: Isaiah Combs RN Position: [facility] RN Member Role: Primary Care Nurse Name: Leslie aWrd RN Position: [facility] RN Member [...] Mcgarry RN Position: [facility] Hospital Delinquent Tax Collection Assistant Member Role: Primary Care Nurse Name: Vicky Salazar RN Position: [facility] RN Member Role: Primary Care Nurse Name: Spencer Jameson RN Position: [facility] RN Member Role: Primary Care Nurse Name: Jalen Mullins Position: [facility] RN Member Role: Primary Care Nurse Care Team Related Persons Name: MARYANNE KELLER Address: home [address] [place], [place] Name: MARYANNE KELLER Address: home [address] [place] [address] Name: MARYANNE KELLER Address: home [address] [place] [address] Name: GEORGIA KELLER Address: [place] [address] Name: BALDEV POLANCO Address: [place] [address]
--- OUTSIDE RECORDS SUMMARY | 2023-02-09 22:45 | XMS_ITS | Continuity of Care Document ---
Author Name Unknown Organization [facility] Address [address] [place] [address]- Care Team Providers Care Head End Desizing Machine Operator Name Role Phone Jaki Bishop MD Primary Care Physician [phone] [facility] Date[facility] 12/23/22 - 01/22/[address] [address] Allergies, Adverse Reactions, Alerts Substance [...] to COVID vaccine 2Admin Note: VIS GIVEN [id number] 3Admin Note: VIS GIVEN 2008-12 4Admin Note: vis 5Admin Note: vis 02/06/08 Medications albuterol 90 mcg/inh inhalation powder 2 puffs, Inhalation, Every 4 hours, PRN as needed, PRN Wheezing, # 1 each, 1 Refills, Maintenance, 06/28/22 14:49:00 EDT, Powder, [facility] [id number], Partial fill upon patient request if the [...] 01/12/23 12:33:00 EDT, Route to Pharmacy Electronically, [facility] [id number], Partialfill upon patient request if the prescription is fo... Start Date: 01/12/23 Status: Ordered benztropine 1 mg oral tablet 0.5 mg, 0.5, tablet, By Mouth, 2 times a day, # 30 tablet, Refills 3, Tot. Refills 3, Maintenance, 01/14/23 11:23:00 EDT, Route to Pharmacy Electronically, [facility] [id number], Partial fill upon patient request if the [...] 10/18/22 11:46:00 EDT, Route to Pharmacy Electronically, [facility] [id number], Partial fill upon patient request if the prescr... Start Date: 10/18/22 Status: Ordered cloNIDine 0.1 mg oral tablet 0.1 mg, 1, tablet, By Mouth, Daily at bedtime, # 30 tablet, Refills 2, Tot. Refills 2, Maintenance,12/09/22 19:15:00 EDT, Route to Pharmacy Electronically, [facility] [id number], Partial fill upon patient request if the presc... Start Date: 12/09/22 Status: Ordered Creon 12,000 units oral delayed release capsule 1 capsule, By Mouth, 3 times a day, # 90 capsule, 3 Refills, Maintenance, 09/17/22 1:49:00 EDT, EC Capsule, [facility] [id number], Partial fill upon patient request if the [...] EDT, Route to Pharmacy Electronically, [facility] [id number], 160, cm, 07/26/22 12:51:00 EDT, Height, 89.2, [...] 01/14/23 12:21:00 EDT, Route to Pharmacy Electronically, [facility] [id number], Partial fill upon patient request if the prescription is f... Start Date: 01/14/23 Stop Date: 03/15/23 Status: Ordered haloperidol 2 mg oral tablet 2 mg, 1, tablet, By Mouth, 3 times a day, # 90 tablet, Refills 0, Tot. Refills 0, Maintenance, 01/14/23 11:19:00 EDT, Route to Pharmacy Electronically, [facility] [id number],Partial fill upon patient request if the prescripti... [...] mL, 5 Refills, Maintenance, 12/09/22 19:15:00 EDT, [facility] [id number], 15, 30 mL By Mouth 2 times a day, 165.09, cm, 10/18/22 11:23:00 EDT, Height, 83.7, kg, 10/05/22 21:20:00 EDT, Start Date: 12/09/22 Status: Ordered Lantus Solostar Pen 100 units/mL subcutaneous solution = 6 units, Subcutaneous Injection, Daily in AM, # 10 mL, 2 Refills, Maintenance, 12/09/22 19:15:00 EDT, Solution, [facility] [id number], Partial fill upon patient request if the prescription is for a schedule II opioid drug.,... Start Date: 12/09/22 Status: Ordered magnesium oxide 400 mg oral tablet 1 tablet = 400 mg, By Mouth, 2 times a day, for 30 days, # 60 tablet, 1 Refills, Acute 03/15/23 11:20:00 EST, 01/14/23 11:20:00 EDT, Tablet, [facility] [id number], Partial fill upon patient request if the prescription is for a... Start Date: 01/14/23 Stop Date: 03/15/23 Status: Ordered multivitamin Multiple Vitamins oral tablet 1 tablet, By Mouth, Daily, # 90 tablet, 1 Refills, Maintenance, 10/22/22 19:32:00 EDT, Tablet, [facility] [id number], Partial fill upon patient request if the prescription isfor a schedule II opioid drug., 1 tablet By Mouth D... Start Date: 10/22/22 Status: Ordered Nicotine 2 mg gum 1 each = 2 mg, Chew, Every 2 hours, PRN for smoking cessation, for 4 week(s), # 160 each, 1 Refills, Acute 02/03/23 19:15:00 EST, 12/09/22 19:15:00 EDT, Gum, [facility] [id number], Partial fill upon patient request if the pres... Start Date: 12/09/22 Stop Date: 02/03/23 Status: Ordered pantoprazole 40 mg oral delayed release tablet 1 tablet, By Mouth, Daily, # 30 tablet, 2 Refills, Maintenance, 01/12/23 12:33:00 EDT, 165.09, cm, 10/18/22 11:23:00 EDT, Height, 83.7, kg, 10/05/22 21:20:00 EDT, Dry Weight Start Date: 01/12/23 Status: Ordered Pen [place], 31 G x 5 mm BD Ultra [...] 01/14/23 11:21:00 EDT, Route to Pharmacy Electronically, [facility] [id number], Partial fill upon patient reque... Start Date: 01/14/23 Stop Date: 03/15/23 Status: Ordered risperiDONE 3 mg oral tablet 3 mg, 1, tablet, By Mouth, 2 times a day, # 60 tablet, Refills 0, Tot. Refills 0, Maintenance, 01/14/23 12:39:00 EDT, Route to Pharmacy Electronically, [facility] [id number],please fill THIS risperidone script instead of the... [...] 01/14/23 11:21:00 EDT, Route to Pharmacy Electronically, [facility] [id number] T... Start Date: 01/14/23 Stop Date: 03/15/23 Status: Ordered shower chair shower chair, See Instructions, # 1 each, Refills 0, Tot. Refills 0, Maintenance, use at showering,10/18/22 11:44:00 EDT, Supply Start Date: 10/18/22 Status: Ordered tiotropium 2.5 mcg/inh inhalation aerosol 2 puffs, Inhalation, Daily, # 1 each, 5 Refills, Maintenance, 09/17/22 1:52:00 EDT, Inhaler, [facility] [id number], Partial fill upon patient request if the prescription is for a schedule II opioid drug., 160, cm, 07/26/22 12:... Start Date: 09/17/22 Stop Date: 03/16/23 Status: Ordered traZODone 50 mg oral tablet 50 mg, 1, tablet, By Mouth, Daily at bedtime, # 30 tablet, Refills 2, Tot. Refills 2, Maintenance, 12/09/22 19:15:00 EDT, Route to Pharmacy Electronically, [facility] [id number], Partial fill upon patient request if the [...] Care Team Personnel Name: Lawrence Hendrix Position: [facility] RN Member Role: Primary Care Nurse Name: Nazia Norris RN Position: [facility] Outreach Member Role: Primary Care Nurse Name: Rufino Lloyd RN Position: [facility] RN Member Role: Primary Care Nurse Name: Cristina Carpenter RN Position: [facility] RN Member Role: Primary Care Nurse Name: Rosette Noriega RN Position: [facility] RN Member Role: Primary Care Nurse Name: Mary Hidalgo RN Position: [facility] AMB Nurse Member Role: Primary Care Nurse Name: Sissy Duran RN Position: [facility] AMB Nurse Member Role: Primary Care Nurse Name: Erlinda Hartman NP Position: [facility] Associate Professional Member Role: Primary Care Nurse Address: Address: [address] [place] [id number] Name: Shante Solis RN Position: [facility] RN Member Role: Primary Care Nurse Name: Joshua Prakash RN Position: [facility] RN Member Role: Primary Care Nurse Name: Bettie Vanegas RN Position: [facility] SN RN Member Role: Primary Care Nurse Name: Jay Marroquin RN Position: [facility] RN Member Role: Primary Care Nurse Name: Adrianna Church RN Position: [facility] RN Member Role: Primary Care Nurse Name: Sue Purdy RN Position: [facility] RN Member Role: Primary Care Nurse Name: Hector Perez RN Position: [facility] ED RN W/OE and Tasks Member Role: Primary Care Nurse Name: Aleena Vizcaino RN Position: [facility] RN Member Role: Primary Care Nurse Name: Kacey Wilhelm RN Position: [facility] RN Member Role: Primary Care Nurse Name: Leslie Malloy RN Position: [facility] RN Member Role: Primary Care Nurse Name: Yesenia Hu LPN Position: [facility] RN Member Role: Primary Care Nurse Name: Joaquina Herrera RN Position: [facility] RN Member Role: Primary Care Nurse Name: Diego Bell RN Position: [facility] RN Member Role: Primary Care Nurse Name: Ese Grey Position: [facility] RN Member Role: Primary Care Nurse Name: Chela Najera RN Position: [facility] RN Member Role: Primary Care Nurse Name: Tootie Gonzalez RN Position: [facility] RN Member Role: Primary Care Nurse Name: Nancy Monte RN Position: [facility] RN Member Role: Primary Care Nurse Name: Marilee Starkey Position: [facility] RN Member Role: Primary Care Nurse Name: Silvina Dodd RN Position: [facility] RN Member Role: Primary Care Nurse Name: Flaco Clifford DO Position: [facility] Renal MD Member Role: Lifetime Consulting Physician Address: Address: [address] [place], [place] [address] [place] [address]- Name: Marilee Richardson RN Position: [facility] RN Member Role: Primary Care Nurse Name: Rufino Johnson RN Position: [facility] RN Member Role: Primary Care Nurse Name: Judson Larry Position: [facility] RN Member Role: Primary Care Nurse Name: Jovita Camargo RN Position: [facility] RN Member Role: Primary Care Nurse Name: Bruna Pizarro Position: [facility] RN Member Role: Primary Care Nurse Name: Ju Zhu Position: [facility] RN Member Role: Primary Care Nurse Name: Ester Palomares Position: [facility] RN Member Role: Primary Care Nurse Name: Emma Colbert RN Position: [facility] RN Member Role: Primary Care Nurse Name: Hallie Gambino RN Position: [facility] Onco RN Member Role: Primary Care Nurse Name: Maya Ambriz RN Position: [facility] RN Member Role: Primary Care Nurse Name: Bhavna Rendon LPN Position: [facility] RN Member Role: Primary Care Nurse Name: Luis Burton RN Position: [facility] RN Member Role: Primary Care Nurse Name: Jaki Bishop MD Position: [facility] Physician - Primary Care Member Role: PCP Address: Address: [address] [place] [address] Name: Lucian Krause RN Position: [facility] RN Member Role: Primary Care Nurse Name: Misty Tariq Position: [facility] RN Member Role: Primary Care Nurse Name: Isaiah Combs RN Position: [facility] RN Member Role: Primary Care Nurse Name: Leslie Ward RN Position: [facility] RN Member Role: Primary Care Nurse Name: Jacki Gomes RN Position: [facility] RN Member Role: Primary Care Nurse Name: Derek Smith RN Position: [facility] RN Member Role: Primary Care Nurse Name: Perri Smith RN Position: [facility] RN Member Role: Primary Care Nurse Name: Mar Brothers RN Position: [facility] RN Member Role: Primary Care Nurse Name: Ivette Shankar RN Position: [facility] RN Member Role: Primary Care Nurse Name: Laura Mary RN Position: [facility] SN RN Member Role: Primary Care Nurse Name: Mary Guillen RN Position: [facility] RN Member Role: Primary Care Nurse Name: Octavio Box RN Position: [facility] RN Member Role: Primary Care Nurse Name: Nazia Tapia RN Position: [facility] RN Member Role: Primary Care Nurse Name: Pat Jackson RN Position: [facility] RN Member Role: Primary Care Nurse Name: Caren Hernandez RN Position: [facility] RN Supv Member Role: Primary Care Nurse Name: Nely Wong RN Position: [facility] RN Member Role: Primary Care Nurse Name: Erica Brandon RN Position: [facility] RN Member Role: Primary Care Nurse Name: Adrianna Gonzalez RN Position: [facility] RN Member Role: Primary Care Nurse Name: Chinyere Espinoza RN Position: [facility] RN Member Role: Primary Care Nurse Name: Teresita Diallo RN Position: [facility] RN Member Role: Primary Care Nurse Name: Tennille Mcgarry RN Position: [facility] Hospital Resort Host Member Role: Primary Care Nurse Name: Vicky Salazar RN Position: [facility] RN Member Role: Primary Care Nurse Name: Spencer Jameson RN Position: [facility] RN Member Role: Primary Care Nurse Name: Jalen Mullins Position: [facility] RN Member Role: Primary Care Nurse Care Team Related Persons Name: MARYANNE KELLER Address: [address] [place] [address] Name: MARYANNE KELLER Address: [address] [place] [id number] Name: MARYANNE KELLER JR Address: [address] [place] [address] Name: GEORGIA KELLER Address: [place] [address] Name: BALDEV POLANCO Address: [place] [address]
--- OUTSIDE RECORDS SUMMARY | 2023-02-09 22:45 | XMS_ITS | Continuity of Care Document ---
Author Name Unknown Organization [facility] Address [address] [place] [address]- Care Team Providers Care Switch Repairer Name Role Phone Jaki Bishop MD Primary Care Physician [facility] Date[facility]): 06/06/20 - 07/06/[address] [address]- Allergies, Adverse Reactions, Alerts Substance Reaction Severity [...] Given Permanently Refused 1Admin Note: VIS GIVEN [id number] 2Admin Note: VIS GIVEN 2008-12 3Admin Note: vis 4Admin Note: vis 02/06/08 Medications acetaminophen 325 mg oral tablet 1, tablet, By Mouth, 4 times a day, PRN, not to exceed 4 TABLETS PER DAY. Not to exceed 2000 mg/day. PRN Pain, # 60 tablet, Refills 0, Tot. Refills 0, Maintenance, NEEDED, 06/19/20 12:38:00 EDT, Route to Pharmacy Electronically, [facility]... Start Date: 06/19/20 Status: Ordered Alcohol [...] 0 Refills, Maintenance, 04/16/20 11:06:00 EST, Tablet, [facility] [id number], Partial fill upon patient request if the prescription is for a schedule II opioid drug., 168,... Start Date: 04/16/20 Status: Ordered clozapine 50 mg oral tablet 3 tablet = 150 mg, By Mouth, Daily at bedtime, # 90 tablet, 0 Refills, Maintenance, 04/16/20 11:06:00 EST, Tablet, [facility] [id number], Partial fill upon patient request ifthe prescription is for a schedule II opioid drug.,... Start Date: 04/16/20 Status: Ordered Coreg 12.5 mg oral tablet 12.5 mg, 1, tablet, By Mouth, 2 times a day, # 180 tablet, Refills 1, Tot. Refills 1, Maintenance, 05/26/20 14:41:00 EST, Route to Pharmacy Electronically, [facility] [id number], Partial fill upon patient request if the prescr... Start Date: 05/26/20 Stop Date: 11/22/20 Status: Ordered docusate sodium 100 mg oral capsule = 100 mg, By Mouth, 2 times a day, PRN Constipation., # 60 capsule, 3 Refills, Maintenance, 02/29/20 15:13:00 EST, Capsule, [place], [place] - [id number], Partial fill upon patient request if the [...] Maintenance,05/28/20 13:46:00 EST, Route to Pharmacy Electronically, [place], [place] - [id number], Partial fill upon patient request if the presc... Start Date: 05/28/20 Status: Ordered Glucerna (Vanilla Flavor) Glucerna (Vanilla Flavor), See Instructions, # 60 each, Refills 11, Tot. Refills 11, Maintenance, Drink 1 can BID. 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 Fax to [facility] ( [facility], #[phone]), 06/06/20 19... Start Date: 06/06/20 Status: Ordered [...] mL, 1 Refills, Maintenance, 04/16/20 11:07:00 EST, [place], [place] - [id number],... Start Date: 04/16/20 Status: Ordered lactulose 10 gm/15 ml oral syrup 30 mL, By Mouth, 2 times a day, # 581 mL, 3 Refills, Maintenance, 06/27/20 11:11:00 EDT, [facility] [id number], 10, 30 mL By Mouth 2 times [...] Replace Required Details, Route to Pharmacy Electronically, [facility] [id number], 168, cm, 04/16/20... Start Date: 05/01/20 Status: Ordered multivitamin Multiple Vitamins oral tablet 1 tablet, By Mouth, Daily, # 90 tablet, 1 Refills, Maintenance, 05/26/20 13:28:00 EST, Tablet, [facility], [place] - [id number], 1 tablet By Mouth Daily, 168, cm, [...] 0 Refills, Maintenance, 04/16/20 11:08:00 EST, Gum, [facility], [facility] [id number], Partial fill upon patient request if the [...] 5 Refills, Maintenance, 03/05/20 16:50:00 EST, Tablet, [place], [place] - [id number], this is an increased, 1 tablet By Mouth 2 times a day,x30 days, 168, cm, 02/10/20 5:58:00 EST, Heigh... Start Date: 03/05/20 Stop Date: 09/01/20 Status: Ordered torsemide 20 mg oral tablet 1 tablet = 20 mg, By Mouth, Daily, # 30 tablet, 1 Refills, Maintenance, 04/16/20 11:09:00 EST, Tablet, [facility] [id number], Partial fill upon patient request if the prescription is for a schedule II opioid drug., 168, cm, 01... Start Date: 04/16/20 Stop Date: 04/11/21 Status: Ordered Zenpep 10,000 units-32,000 units-42,000 units oral delayed release capsule 1 capsule, By Mouth, 3 times a day, # 90 capsule, 0 Refills, Maintenance, 04/16/20 11:09:00 EST, [facility] [id number], 1 capsule By Mouth 3 times a [...] Active H/O tubal ligation(Confirmed) Active BHN/ CP Cryptoanalysis Teacher/Janet salvador [facility] [phone](Confirmed) Active History of cholecystectomy(Confirmed) Active Hypertension(Confirmed) Active [...]
--- OUTSIDE RECORDS SUMMARY | 2023-02-09 22:45 | XMS_ITS | Continuity of Care Document ---
Author Name Unknown Organization [facility] Address [address] [place] [address]- Care Team Providers Care Tar Heat Exchanger Cleaner Name Role Phone Dario HAYDEN, Jaki Primary Care Physician [phone] Encounter [facility] R [id number] Date(s): 02/26/19 - 03/08/[address] [address]- [facility] Attending Physician: Admtr, Ar8 Allergies, Adverse Reactions, [...] Given Patient Refuses 1Admin Note: VIS GIVEN [id number] 2Admin Note: VIS GIVEN 2008-12 3Admin Note: vis 4Admin Note: vis 02/06/08 Medications acetaminophen 325 mg oral tablet 325 mg, 1, tablet, By Mouth, 4 times a day, PRN, No more than 4 tablets per day, # 60 tablet, Refills 11, Tot. Refills 11, Acute 10/05/19 12:00:00 EDT, for pain, 10/03/18 14:57:21 EDT, Route to Pharmacy Electronically, [id number]... Start Date: 10/03/18 Stop Date: 10/05/19 Status: [...] 07/19/18 9:04:24 EDT, Route to Pharmacy Electronically, [id number], [facility] [id number] Start Date: 07/19/18 Status: Ordered docusate sodium 100 mg oral capsule 100 mg, 1, capsule, By Mouth, 2 times a day, # 60 capsule, Refills 11, Tot. Refills 11, Maintenance, 02/21/19 14:45:44 EST, Route to Pharmacy Electronically, [id number], [place], [place] -, 168, cm, 02/14/19... Start Date: 02/21/19 Stop Date: 02/16/20 Status: Ordered Ensure (Vanilla Flavor) Ensure (Vanilla Flavor), See Instructions, # 60 each, Refills 11, Tot. Refills 11, Maintenance, Drink 1 can BID. Diagnosis: Chronic Pancreatitis, Cirrhosis. ICD10 K86.1, K74.6, Fax to Anna( [facility], #[phone]), 12/06/17 13:28:49 EDT, Compound Start Date: 12/06/17 Status: Ordered gabapentin 100 mg oral capsule 100 mg, 1, capsule, By Mouth, 2 times a day, # 60 capsule, Refills 6, Tot. Refills 6, Maintenance, 07/19/18 9:05:59 EDT, Route to Pharmacy Electronically, [id number], [facility] [id number] Start Date: 07/19/18 Stop Date: 02/14/19 Status: [...] TABLET BY MOUTH DAILY FOR STOMACH ACID, [facility] #[id number] Start Date: 11/28/18 Status: Ordered Please draw CBC with dif (for ANC) weekly and fax results to: Attn Dr. Mariano Andrade, Outpatient Psychi Please draw CBC with dif (for ANC) weekly and fax results to: Attn Dr. Mariano Andrade, Outpatient Psychiatry, at [phone]., See Instructions, # 1 application, Refills 0, [...] Active H/O tubal ligation(Confirmed) Active BHN/BH CP Booster Operator/Janet Pandey [phone](Confirmed) Active History of cholecystectomy(Confirmed) Active Hypertension(Confirmed) Active Incisional hernia(Confirmed) Active Nicotine dependence(Confirmed) Active Obesity (BMI 30.0-34.9)(Confirmed) Active Pulmonary HTN, Severe(Confirmed) Active Steatohepatitis (w/Stage III Fibrosis, Liver Biopsy 05/2012)(Confirmed) Active Social History Social History Type Response Tobacco Use: 4 or less cigar ettes(less than 1/4 pack)/day in last 30 days. Started at age: 15 Years. Sex
--- OUTSIDE RECORDS SUMMARY | 2023-02-09 22:45 | XMS_ITS | Continuity of Care Document ---
Author Name Unknown Organization [facility] Address [address] [place] [address]- Care Team Providers Care Associate Professor Of Law Name Role Phone Jaki Bishop MD Primary Care Physician [facility] Date[facility]s): 01/19/21 - 02/21/[address] [address]- Attending Physician: Not on Staff, Attending MD [...] to COVID vaccine 2Admin Note: VIS GIVEN [id number] 3Admin Note: VIS GIVEN 2008- 4Admin Note: [...] 02/06/21 19:54:00 EST, Route to Pharmacy Electronically, [facility] [id number], Partial fill upon patient request if the [...] mL, 5 Refills, Maintenance, 02/06/21 19:54:00 EST, [facility] [id number], Partial fill upon patient request if the prescription is for a schedule II opioid d... Start Date: 02/06/21 Stop Date: 08/05/21 Status: Ordered loratadine 10 mg oral tablet 10 mg, 1, tablet, By Mouth, Daily, # 30 tablet, Refills 0, Tot. Refills 0, Maintenance, 11/28/20 9:25:00 EDT, Route to Pharmacy Electronically, [facility], Partial fill upon patient [...] a day, # 60 tablet, 0 Refills, [facility], 167.64, cm, 11/27/20 22:30:00 EDT, Height, 98.5, kg, 10/22/20 17:50:00 EDT, Dry Weight Start Date: 01/08/21 Status: Ordered Nicoderm C-Q Clear 14 mg/24 hr transdermal film, extended release 1 patch, Topically, Daily, for 30 days, # 30 patch, 0 Refills, Acute 03/18/21 13:06:00 EST, 02/16/21 13:06:00 EST, Patch, [facility], Partial fill upon patient request if the prescription is for a schedule II opioid drug., 166.6, cm, ... Start Date: 02/16/21 Stop Date: 03/18/21 Status: Ordered Nicotine 2 mg gum = 2 mg, Chew, Every 2 hours, PRN Other, for 6 week(s), Nicotine Cravings, # 40 each, 1 Refills, Acute 05/11/21 13:06:00 EST, 02/16/21 13:06:00 EST, Gum, [facility], Partial fill upon patient request [...] 0 Refills, Maintenance,02/06/21 19:56:00 EST, CR Capsule, [place], [place] - [id number], Partial fill upon patient request if the [...] 0 Refills, Maintenance, 11/28/20 9:27:00 EDT, Nasal [place], [facility] 3, Partial fill upon patient request [...] 5 Refills, Maintenance, 02/06/21 19:56:00 EST, Tablet, [place], [place] - [id number], Partial fill upon patient request if the [...] Active H/O tubal ligation(Confirmed) Active BHN/ CP Epidemiologist/Janet salvador [facility] [phone](Confirmed) Active History of cholecystectomy(Confirmed) Active Hypertension(Confirmed) Active [...]
--- OUTSIDE RECORDS SUMMARY | 2023-02-09 22:45 | XMS_ITS | Continuity of Care Document ---
Author Name Unknown Organization [facility] Address [address] [place] [address]- Care Team Providers Care Contact Center Representative Name Role Phone Dario HAYDEN, Jaki Primary Care Physician [facility] Date[facility]): 02/13/19 - 03/28/[address] [address]- [facility] Attending Physician: Not on Staff, Attending [...] Given Patient Refuses 1Admin Note: VIS GIVEN [id number] 2Admin Note: VIS GIVEN 2008-12 3Admin Note: vis 4Admin Note: vis 02/06/08 Medications acetaminophen 325 mg oral tablet 325 mg, 1, tablet, By Mouth, 4 times a day, PRN, No more than 4 tablets per day, # 60 tablet, Refills 11, Tot. Refills 11, Acute 10/05/19 12:00:00 EDT, for pain, 10/03/18 14:57:21 EDT, Route to Pharmacy Electronically, [id number]... Start Date: 10/03/18 Stop Date: 10/05/19 Status: [...] 07/19/18 9:04:24 EDT, Route to Pharmacy Electronically, [id number], [facility] [id number] Start Date: 07/19/18 Status: Ordered docusate sodium 100 mg oral capsule 100 mg, 1, capsule, By Mouth, 2 times a day, # 60 capsule, Refills 11, Tot. Refills 11, Maintenance, 02/21/19 14:45:44 EST, Route to Pharmacy Electronically, [id number], [place], [place] -, 168, cm, 02/14/19... Start Date: 02/21/19 Stop Date: 02/16/20 Status: Ordered Ensure (Vanilla Flavor) Ensure (Vanilla Flavor), See Instructions, # 60 each, Refills 11, Tot. Refills 11, Maintenance, Drink 1 can BID. Diagnosis: Chronic Pancreatitis, Cirrhosis. ICD10 K86.1, K74.6, Fax to Anna( [facility], #[id number]), 12/06/17 13:28:49 EDT, Compound Start Date: 12/06/17 Status: Ordered gabapentin 100 mg oral capsule 200 mg, 2, capsule, By Mouth, 2 times a day, # 120 capsule, Refills 6, Tot. Refills 6, Maintenance,03/27/19 16:10:00 EST, Route to Pharmacy Electronically, [facility] #[id number], 166, cm, 03/27/19 15:26:00 EST, Height, 91.8, kg, 02/23/19 17:03:... Start Date: 03/27/19 Stop Date: 10/23/19 Status: Ordered insulin lispro 100 u/ml subcutaneous [...] 12:24:34 EST Start Date: 03/01/19 Status: Ordered MiraLax oral powder for reconstitution = 17 Gm, By Mouth, 2 times a day, PRN Other, dissolve in water before taking. goal 2-3 bowel movements daily, # 527 Gm, 0 Refills, Maintenance, 03/27/19 17:13:00 EST, REC Powder, [facility]#[id number], 17 Gm By Mouth 2 times a [...] TABLET BY MOUTH DAILY FOR STOMACH ACID, [facility] #[id number] Start Date: 11/28/18 Status: Ordered Please draw CBC with dif (for ANC) weekly and fax results to: Attn Dr. Mariano Andrade, Outpatient Psychi Please draw CBC with dif (for ANC) weekly and fax results to: Attn Dr. Mariano Andrade, Outpatient Psychiatry, at [phone]., See Instructions, # 1 application, Refills 0, [...] Daily, # 90 tablet, 3 Refills, Maintenance, 03/27/19 16:04:00 EST, Tablet, [facility] #[id number], 166, cm, 03/27/19 15:26:00 EST, Height, 91.8, kg, 02/23/19 17:03:00EST, Dry Weight Start Date: 03/27/19 Status: Ordered Walker with wheels Walker with [...] Active H/O tubal ligation(Confirmed) Active BHN/ CP Paralegals/Janet salvador [facility] [phone](Confirmed) Active History of cholecystectomy(Confirmed) Active Hypertension(Confirmed) Active [...]
--- OUTSIDE RECORDS SUMMARY | 2023-02-09 22:45 | XMS_ITS | Continuity of Care Document ---
Author Name Unknown Organization [facility] Address [address] [place] [address]- Care Team Providers Care Package Designer Name Role Phone Jaki Bishop MD Primary Care Physician [phone] [facility] 08[facility]20 - 09/04/[address] [address] Allergies, Adverse Reactions, Alerts Substance [...] to COVID vaccine 2Admin Note: VIS GIVEN [id number] 3Admin Note: VIS GIVEN 2008-12 4Admin Note: vis 5Admin Note: vis 02/06/08 Medications acetaminophen 325 mg oral tablet 1, tablet, By Mouth, 4 times a day, PRN, not to exceed 4 TABLETS PER DAY. Not to exceed 2000 mg/day. PRN Pain, # 60 tablet, Refills 5, Tot. Refills 5, Maintenance, NEEDED, 08/14/20 16:55:00 EDT, Route to Pharmacy Electronically, [facility]... Start Date: 08/14/20 Status: Ordered Clozaril 100 [...] 05/26/20 14:41:00 EST, Route to Pharmacy Electronically, [facility] [id number], Partial fill upon patient request if the prescr... Start Date: 05/26/20 Stop Date: 11/22/20 Status: Ordered gabapentin 100 mg oral capsule 200 mg, 2, capsule, By Mouth, 2 times a day, # 120 capsule, Refills 5, Tot. Refills 5, Maintenance,05/28/20 13:46:00 EST, Route to Pharmacy Electronically, [facility] [id number], Partial fill upon patient request if the presc... Start Date: 05/28/20 Status: Ordered Humalog Kwik Pen 100 units/mL subcutaneous injection See Instructions, 3 Units for bood sugar above 120 mg/dl and then add 2 Units for every 50 mg/dl rise above 120. Three times a day before meals., # 15 mL, 1 Refills, Maintenance, 04/16/20 11:07:00 EST, [facility] [id number],... Start Date: 04/16/20 Status: Ordered lactulose 10 [...] 1 Refills, Maintenance, 08/20/20 16:55:00 EDT, Solution, [facility], [place] - [id number], 168, cm, 04/16/20 8:30:00 EST, Height, 98.7, kg, 03/22... Start Date: 08/20/20 Status: Ordered loratadine 10 mg oral tablet See Instructions, TAKE ONE TABLET BY MOUTH DAILY, # 30 tablet, Refills 5, Tot. Refills 5, 05/01/20 8:18:00 EST, Instructions Replace Required Details, Route to Pharmacy Electronically, [facility], [place] - [id number], 168, cm, 04/16/20... Start Date: 05/01/20 Status: [...] 5 Refills, Maintenance, 07/14/20 16:30:00 EDT, Tablet, [facility] [id number], this is an increased, 1 tablet By Mouth 2 times a day,x30 days, 168, cm, 04/16/20 8:30:00 EST, Heigh... Start Date: 07/14/20 Stop Date: 01/10/21 Status: Ordered torsemide 20 mg oral tablet 1 tablet = 20 mg, By Mouth, Daily, # 30 tablet, 1 Refills, Maintenance, 04/16/20 11:09:00 EST, Tablet, [facility] [id number], Partial fill upon patient request if the prescription is for a schedule II opioid drug., 168, cm, 01... Start Date: 04/16/20 Stop Date: 04/11/21 Status: Ordered Zenpep 10,000 units-32,000 units-42,000 units oral delayed release capsule 1 capsule, By Mouth, 3 times a day, # 90 capsule, 0 Refills, Maintenance, 04/16/20 11:09:00 EST, [facility] [id number], 1 capsule By Mouth 3 times a [...] Active H/O tubal ligation(Confirmed) Active BHN/BH CP Dye Lab Technician/Janet salvador [facility] [phone](Confirmed) Active History of cholecystectomy(Confirmed) Active Hypertension(Confirmed) Active [...]
--- OUTSIDE RECORDS SUMMARY | 2023-02-09 22:45 | XMS_ITS | Continuity of Care Document ---
Author Name Unknown Organization [facility] Address [address] [place] [address]- Care Team Providers Care Instrument Tester Name Role Phone Jaki Bishop MD Primary Care Physician [facility] 11/15[facility]19 - 12/15/[address] [address]- [facility] Allergies, Adverse Reactions, Alerts Substance Reaction [...] Given Permanently Refused 1Admin Note: VIS GIVEN [id number] 2Admin Note: VIS GIVEN 2008-12 3Admin Note: vis 4Admin Note: vis 02/06/08 Medications acetaminophen 325 mg oral tablet 1, tablet, By Mouth, 4 times a day, PRN, no MORE THAN 4 TABLETS PER DAY., # 60 tablet, Refills 1, Tot. Refills 0, Acute, NEEDED, 11/12/19 14:29:00 EDT, Route to Pharmacy Electronically, [facility], 168, cm, 11/12/19 9:05:00 EDT, Height, 106.8,... Start Date: 11/12/19 Status: Ordered Alcohol Wipes See Instructions, # [...] Compound Start Date: 07/19/18 Status: Ordered clozapine 50 mg oral tablet [...] 08/07/19 14:24:00 EDT, Route to Pharmacy Electronically, [facility] [place], [place] -, 166, cm, 05/28/19 11:08:00 EDT, Height, 91.8, kg, 02/23/19 17... Start Date: 08/07/19 Status: Ordered Docusate = 100 mg, 2 times a day, 0 Refills, Maintenance, 10/11/19 0:28:00 EDT Start Date: 10/11/19 Status: Ordered docusate sodium 100 mg oral capsule 100 mg, 1, capsule, By Mouth, 2 times a day, # 60 capsule, Refills 11, Tot. Refills 11, Maintenance, 02/21/19 14:45:44 EST, Route to Pharmacy Electronically, [id number], [place], [place] -, 168, cm, 02/14/19... Start Date: [...] K86.1, K74.6, E11.65. Fax to Anna ( [facility], #[phone]), 07/26/19 15... Start Date: 07/26/19 Status: Ordered haloperidol 2 mg/mL oral concentrate [...] mL, 6 Refills, Maintenance, 05/04/19 12:52:00 EST, [place], [place] - , Humalog ins... Start Date: [...] Refills, Maintenance, 07/26/19 8:25:00 EDT, REC Powder, [place], [place] -, 17 Gm By Mouth 2 times a day,PRN:Oth... Start Date: 07/26/19 Status: Ordered multivitamin Multiple Vitamins oral tablet 1 tablet, By Mouth, Daily, # 90 tablet, 1 Refills, Maintenance, 08/07/19 14:23:00 EDT, Tablet, [facility] [place], [place] -, 1 tablet By Mouth Daily, [...] Weight Start Date: 10/29/19 Status: Ordered Pen [place], 31 G x 8 mm BD Ultra [...] (for ANC) weekly and fax results to: Attfelisha Andrade, Outpatient Psychi Please draw CBC with dif (for ANC) weekly and fax results to: Attn Dr. Mariano Andrade, Outpatient Psychiatry, at [phone]., See Instructions, # 1 application, Refills 0, [...] 5 Refills, Maintenance, 08/27/19 7:36:00 EDT, Tablet, [facility] [place], [place] -, this is an increased, 1 [...] 04/20/19 10:38:00 EST, Route to Pharmacy Electronically, [facility] #[id number], 166, cm, 04/20/19 10:17:00 EST, Height, 91.8, kg, 02/23/19 17:03:00 EST, . Start Date: 04/20/19 Status: Ordered torsemide 20 mg oral tablet 2 tablet = 40 mg, By Mouth, Daily, # 180 tablet, 11 Refills, Maintenance, 04/20/19 10:38:00 EST, Tablet, [facility] #[id number], Replaces lower dose, 166, cm, 04/20/19 10:17:00 [...] Active H/O tubal ligation(Confirmed) Active BHN/ CP Eating Disorder Specialist/Janet aPndey [phone](Confirmed) Active History of cholecystectomy(Confirmed) Active Hypertension(Confirmed) Active [...]
--- OUTSIDE RECORDS SUMMARY | 2023-02-09 22:45 | XMS_ITS | Continuity of Care Document ---
Author Name Unknown Organization [facility] Address [address] [place] [address]- Care Team Providers Care Plastic Tubing Insulation Supervisor Name Role Phone Jaki Bishop MD Primary Care Physician [facility]counter [facility] Date(s): 12/23/22 - 01/22/[address] [address] Allergies, Adverse Reactions, Alerts Substance [...] to COVID vaccine 2Admin Note: VIS GIVEN [id number] 3Admin Note: VIS GIVEN 2008-12 4Admin Note: vis 5Admin Note: vis 02/06/08 Medications albuterol 90 mcg/inh inhalation powder 2 puffs, Inhalation, Every 4 hours, PRN as needed, PRN Wheezing, # 1 each, 1 Refills, Maintenance, 06/28/22 14:49:00 EDT, Powder, [facility] [id number], Partial fill upon patient request if the [...] 01/12/23 12:33:00 EDT, Route to Pharmacy Electronically, [facility] [id number], Partialfill upon patient request if the prescription is fo... Start Date: 01/12/23 Status: Ordered benztropine 1 mg oral tablet 0.5 mg, 0.5, tablet, By Mouth, 2 times a day, # 30 tablet, Refills 3, Tot. Refills 3, Maintenance, 01/14/23 11:23:00 EDT, Route to Pharmacy Electronically, [facility] [id number], Partial fill upon patient request if the [...] 10/18/22 11:46:00 EDT, Route to Pharmacy Electronically, [facility] [id number], Partial fill upon patient request if the prescr... Start Date: 10/18/22 Status: Ordered cloNIDine 0.1 mg oral tablet 0.1 mg, 1, tablet, By Mouth, Daily at bedtime, # 30 tablet, Refills 2, Tot. Refills 2, Maintenance,12/09/22 19:15:00 EDT, Route to Pharmacy Electronically, [facility] [id number], Partial fill upon patient request if the presc... Start Date: 12/09/22 Status: Ordered Creon 12,000 units oral delayed release capsule 1 capsule, By Mouth, 3 times a day, # 90 capsule, 3 Refills, Maintenance, 09/17/22 1:49:00 EDT, EC Capsule, [facility] [id number], Partial fill upon patient request if the [...] 09/17/22 1:48:00 EDT, Route to Pharmacy Electronically, [facility] [id number], 160, cm, 07/26/22 12:51:00 EDT, Height, 89.2, [...] 01/14/23 12:21:00 EDT, Route to Pharmacy Electronically, [facility] [id number], Partial fill upon patient request if the prescription is f... Start Date: 01/14/23 Stop Date: 03/15/23 Status: Ordered haloperidol 2 mg oral tablet 2 mg, 1, tablet, By Mouth, 3 times a day, # 90 tablet, Refills 0, Tot. Refills 0, Maintenance, 01/14/23 11:19:00 EDT, Route to Pharmacy Electronically, [facility] [id number],Partial fill upon patient request if the prescripti... [...] mL, 5 Refills, Maintenance, 12/09/22 19:15:00 EDT, [facility] [id number], 15, 30 mL By Mouth 2 times a day, 165.09, cm, 10/18/22 11:23:00 EDT, Height, 83.7, kg, 10/05/22 21:20:00 EDT, Start Date: 12/09/22 Status: Ordered Lantus Solostar Pen 100 units/mL subcutaneous solution = 6 units, Subcutaneous Injection, Daily in AM, # 10 mL, 2 Refills, Maintenance, 12/09/22 19:15:00 EDT, Solution, [facility] [id number], Partial fill upon patient request if the prescription is for a schedule II opioid drug.,... Start Date: 12/09/22 Status: Ordered magnesium oxide 400 mg oral tablet 1 tablet = 400 mg, By Mouth, 2 times a day, for 30 days, # 60 tablet, 1 Refills, Acute 03/15/23 11:20:00 EST, 01/14/23 11:20:00 EDT, Tablet, [facility] [id number], Partial fill upon patient request if the prescription is for a... Start Date: 01/14/23 Stop Date: 03/15/23 Status: Ordered multivitamin Multiple Vitamins oral tablet 1 tablet, By Mouth, Daily, # 90 tablet, 1 Refills, Maintenance, 10/22/22 19:32:00 EDT, Tablet, [facility] [id number], Partial fill upon patient request if the prescription isfor a schedule II opioid drug., 1 tablet By Mouth D... Start Date: 10/22/22 Status: Ordered Nicotine 2 mg gum 1 each = 2 mg, Chew, Every 2 hours, PRN for smoking cessation, for 4 week(s), # 160 each, 1 Refills, Acute 02/03/23 19:15:00 EST, 12/09/22 19:15:00 EDT, Gum, [facility] [id number], Partial fill upon patient request if the pres... Start Date: 12/09/22 Stop Date: 02/03/23 Status: Ordered pantoprazole 40 mg oral delayed release tablet 1 tablet, By Mouth, Daily, # 30 tablet, 2 Refills, Maintenance, 01/12/23 12:33:00 EDT, 165.09, cm, 10/18/22 11:23:00 EDT, Height, 83.7, kg, 10/05/22 21:20:00 EDT, Dry Weight Start Date: 01/12/23 Status: Ordered Pen [place], 31 G x 5 mm BD Ultra [...] 01/14/23 11:21:00 EDT, Route to Pharmacy Electronically, [facility] [id number], Partial fill upon patient reque... Start Date: 01/14/23 Stop Date: 03/15/23 Status: Ordered risperiDONE 3 mg oral tablet 3 mg, 1, tablet, By Mouth, 2 times a day, # 60 tablet, Refills 0, Tot. Refills 0, Maintenance, 01/14/23 12:39:00 EDT, Route to Pharmacy Electronically, [facility] [id number],please fill THIS risperidone script instead of the... [...] 01/14/23 11:21:00 EDT, Route to Pharmacy Electronically, [facility] [id number] T... Start Date: 01/14/23 Stop Date: 03/15/23 Status: Ordered shower chair shower chair, See Instructions, # 1 each, Refills 0, Tot. Refills 0, Maintenance, use at showering,10/18/22 11:44:00 EDT, Supply Start Date: 10/18/22 Status: Ordered tiotropium 2.5 mcg/inh inhalation aerosol 2 puffs, Inhalation, Daily, # 1 each, 5 Refills, Maintenance, 09/17/22 1:52:00 EDT, Inhaler, [facility] [id number], Partial fill upon patient request if the prescription is for a schedule II opioid drug., 160, cm, 07/26/22 12:... Start Date: 09/17/22 Stop Date: 03/16/23 Status: Ordered traZODone 50 mg oral tablet 50 mg, 1, tablet, By Mouth, Daily at bedtime, # 30 tablet, Refills 2, Tot. Refills 2, Maintenance, 12/09/22 19:15:00 EDT, Route to Pharmacy Electronically, [facility] [id number], Partial fill upon patient request if the [...] Personnel Name: Lawrence Hendrix Position: [facility] RN Member Role: Primary Care Nurse Name: Nazia Norris RN Position: [facility] Outreach Member Role: Primary Care Nurse Name: Rufino Lloyd RN Position: [facility] RN Member Role: Primary Care Nurse Name: Cristina Carpenter RN Position: [facility] RN Member Role: Primary Care Nurse Name: Rosette Noriega RN Position: [facility] RN Member Role: Primary Care Nurse Name: Mary Hidalgo RN Position: [facility] AMB Nurse Member Role: Primary Care Nurse Name: Sissy Duran RN Position: [facility] AMB Nurse Member Role: Primary Care Nurse Name: Erlinda Hartman NP Position: [facility] Associate Professional Member Role: Primary Care Nurse Address: Address: [address] [place] [address] [[email or web address]] Name: Shante Solis RN Position: [facility] RN Member Role: Primary Care Nurse Name: Joshua Prakash RN Position: [facility] RN Member Role: Primary Care Nurse Name: Bettie Vanegas RN Position: [facility] SN RN Member Role: Primary Care Nurse Name: Jay Marroquin RN Position: [facility] RN Member Role: Primary Care Nurse Name: Adrianna Church RN Position: [facility] RN Member Role: Primary Care Nurse Name: Sue Purdy RN Position: [facility] RN Member Role: Primary Care Nurse Name: Hector Perez RN Position: [facility] ED RN W/OE and Tasks Member Role: Primary Care Nurse Name: Aleena Vizcaino RN Position: [facility] RN Member Role: Primary Care Nurse Name: Kacey Wilhelm RN Position: [facility] RN Member Role: Primary Care Nurse Name: Leslie Malloy RN Position: [facility] RN Member Role: Primary Care Nurse Name: Yesenia Hu LPN Position: [facility] RN Member Role: Primary Care Nurse Name: Joaquina Herrera RN Position: [facility] RN Member Role: Primary Care Nurse Name: Diego Bell RN Position: [facility] RN Member Role: Primary Care Nurse Name: Ese Grey Position: [facility] RN Member Role: Primary Care Nurse Name: Chela Najera RN Position: [facility] RN Member Role: Primary Care Nurse Name: Tootie Gonzalez RN Position: [facility] RN Member Role: Primary Care Nurse Name: Nancy Monte RN Position: [facility] RN Member Role: Primary Care Nurse Name: Marilee Starkey Position: [facility] RN Member Role: Primary Care Nurse Name: Silvina Dodd RN Position: [facility] RN Member Role: Primary Care Nurse Name: Flaco Clifford DO Position: [facility] Renal MD Member Role: Lifetime Consulting Physician Address: Address: [address] [place], [place] [address] [place] [place] [address]- Name: Marilee Richardson RN Position: [facility] RN Member Role: Primary Care Nurse Name: Rufino Johnson RN Position: [facility] RN Member Role: Primary Care Nurse Name: Judson Larry Position: [facility] RN Member Role: Primary Care Nurse Name: Jovita Camargo RN Position: [facility] RN Member Role: Primary Care Nurse Name: Bruna Pizarro Position: [facility] RN Member Role: Primary Care Nurse Name: Ju Zhu Position: [facility] RN Member Role: Primary Care Nurse Name: Ester Palomares Position: [facility] RN Member Role: Primary Care Nurse Name: Emma Colbert RN Position: [facility] RN Member Role: Primary Care Nurse Name: Hallie Gambino RN Position: [facility] Onco RN Member Role: Primary Care Nurse Name: Maya Ambriz RN Position: [facility] RN Member Role: Primary Care Nurse Name: Bhavna Rendon LPN Position: [facility] RN Member Role: Primary Care Nurse Name: Luis Burton RN Position: [facility] RN Member Role: Primary Care Nurse Name: Jaki Bishop MD Position: [facility] Physician - Primary Care Member Role: PCP Address: Address: [address] [place] [address] Name: Lucian Krause RN Position: [facility] RN Member Role: Primary Care Nurse Name: Misty Tariq Position: [facility] RN Member Role: Primary Care Nurse Name: Isaiah Combs RN Position: [facility] RN Member Role: Primary Care Nurse Name: Leslie Ward RN Position: [facility] RN Member Role: Primary Care Nurse Name: Jacki Gomes RN Position: [facility] RN Member Role: Primary Care Nurse Name: Derek Smith RN Position: [facility] RN Member Role: Primary Care Nurse Name: Perri Smith RN Position: [facility] RN Member Role: Primary Care Nurse Name: Mar Brothers RN Position: [facility] RN Member Role: Primary Care Nurse Name: Ivette Shankar RN Position: [facility] RN Member Role: Primary Care Nurse Name: Laura Mary RN Position: [facility] SN RN Member Role: Primary Care Nurse Name: Mary Guillen RN Position: [facility] RN Member Role: Primary Care Nurse Name: Octavio Box RN Position: [facility] RN Member Role: Primary Care Nurse Name: Nazia Tapia RN Position: [facility] RN Member Role: Primary Care Nurse Name: Pat Jackson RN Position: [facility] RN Member Role: Primary Care Nurse Name: Caren Hernandez RN Position: [facility] RN Supv Member Role: Primary Care Nurse Name: Nely Wong RN Position: [facility] RN Member Role: Primary Care Nurse Name: Erica Brandon RN Position: [facility] RN Member Role: Primary Care Nurse Name: Adrianna Gonzalez RN Position: [facility] RN Member Role: Primary Care Nurse Name: Chinyere Espinoza RN Position: [facility] RN Member Role: Primary Care Nurse Name: Teresita Diallo RN Position: [facility] RN Member Role: Primary Care Nurse Name: Tennille Mcgarry RN Position: [facility] Hospital Regional Program Manager Member Role: Primary Care Nurse Name: Vicky Salazar RN Position: [facility] RN Member Role: Primary Care Nurse Name: Spencer Jameson RN Position: [facility] RN Member Role: Primary Care Nurse Name: Jalen Mullins Position: [facility] RN Member Role: Primary Care Nurse Care Team Related Persons Name: MARYANNE KELLER Address: home [address] [place] [address] Name: MARYANNE KELLER Address: home [address] [place] [id number] Name: MARYANNE KELLER JR Address: home [address] [place] [address] Name: GEORGIA KELLER Address: [place] [address] Name: BALDEV POLANCO Address: [place] [address]
--- OUTSIDE RECORDS SUMMARY | 2023-02-09 22:45 | XMS_ITS | Continuity of Care Document ---
Author Name Unknown Organization [facility] Address [address] [place] [address]- Care Team Providers Care Chief Architect Name Role Phone Jaki Bishop MD Primary Care Physician [phone] [facility]counter [facility] Date(s): 05/13/20 - 06/12/[address] [address]- Allergies, Adverse Reactions, Alerts Substance Reaction Severity [...] Given Permanently Refused 1Admin Note: VIS GIVEN [id number] 2Admin Note: VIS GIVEN 2008-12 3Admin Note: vis 4Admin Note: vis 02/06/08 Medications acetaminophen 325 mg oral tablet 1, tablet, By Mouth, 4 times a day, PRN, not to exceed 4 TABLETS PER DAY, # 60 tablet, Refills 0, Tot. Refills 0, Acute, NEEDED, 05/28/20 13:40:00 EST, Route to Pharmacy Electronically, [facility], 168, cm, 04/16/20 8:30:00 EST, Height, [...] Refills, Maintenance, 04/16/20 11:06:00 EST, Tablet, [facility] [id number], Partial fill upon patient request if the prescription is for a schedule II opioid drug., 168,... Start Date: 04/16/20 Status: Ordered clozapine 50 mg oral tablet 3 tablet = 150 mg, By Mouth, Daily at bedtime, # 90 tablet, 0 Refills, Maintenance, 04/16/20 11:06:00 EST, Tablet, [facility] [id number], Partial fill upon patient request ifthe prescription is for a schedule II opioid drug.,... Start Date: 04/16/20 Status: Ordered Coreg 12.5 mg oral tablet 12.5 mg, 1, tablet, By Mouth, 2 times a day, # 180 tablet, Refills 1, Tot. Refills 1, Maintenance, 05/26/20 14:41:00 EST, Route to Pharmacy Electronically, [facility] [id number], Partial fill upon patient request if the prescr... Start Date: 05/26/20 Stop Date: 11/22/20 Status: Ordered docusate sodium 100 mg oral capsule = 100 mg, By Mouth, 2 times a day, PRN Constipation., # 60 capsule, 3 Refills, Maintenance, 02/29/20 15:13:00 EST, Capsule, [place], [place] - [id number], Partial fill upon patient request if the [...] 13:46:00 EST, Route to Pharmacy Electronically, [facility] [id number], Partial fill upon patient request if the presc... Start Date: 05/28/20 Status: Ordered Glucerna (Vanilla Flavor) Glucerna (Vanilla Flavor), See Instructions, # 60 each, Refills 11, Tot. Refills 11, Maintenance, Drink 1 can BID. 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 Fax to Anna ( [facility], #[phone]), 06/06/20 19... Start Date: 06/06/20 Status: Ordered [...] mL, 1 Refills, Maintenance, 04/16/20 11:07:00 EST, [facility] - [place], [place] - [id number],... Start Date: 04/16/20 Status: Ordered lactulose 10 gm/15 ml oral syrup 30 mL, By Mouth, 2 times a day, # 581 mL, 0 Refills, Acute, 03/25/20 11:49:00 EST, [facility],10, TAKE 30 ML BY [...] Solostar Pen 100 units/mL subcutaneous solution = 24 units, Subcutaneous Injection, Daily at bedtime, # 12 mL, 1 Refills, Maintenance, 06/02/20 15:02:00 EDT, Solution Start Date: 06/02/20 Status: Ordered loratadine 10 mg oral tablet See Instructions, TAKE ONE TABLET BY MOUTH DAILY, # 30 tablet, Refills 5, Tot. Refills 5, 05/01/20 8:18:00 EST, Instructions Replace Required Details, Route to Pharmacy Electronically, [facility] [id number], 168, cm, 04/16/20... Start Date: 05/01/20 Status: [...] 1 Refills, Maintenance, 05/26/20 13:28:00 EST, Tablet, [facility], [facility] [id number], 1 tablet By Mouth Daily, 168, cm, [...] 0 Refills, Maintenance, 04/16/20 11:08:00 EST, Gum, [facility] [id number], Partial fill upon patient request if the [...] 5 Refills, Maintenance, 03/05/20 16:50:00 EST, Tablet, [facility] [id number], this is an increased, 1 tablet By [...] 1 Refills, Maintenance, 04/16/20 11:09:00 EST, Tablet, [place], [place] - [id number], Partial fill upon patient request if the prescription is for a schedule II opioid drug., 168, cm, 01... Start Date: 04/16/20 Stop Date: 04/11/21 Status: Ordered Zenpep 10,000 units-32,000 units-42,000 units oral delayed release capsule 1 capsule, By Mouth, 3 times a day, # 90 capsule, 0 Refills, Maintenance, 04/16/20 11:09:00 EST, [facility] - [place], [place] - [id number], 1 capsule By Mouth 3 times a [...] H/O tubal ligation(Confirmed) Active BHN/BH CP Director Export/Janet Pandey [phone](Confirmed) Active History of cholecystectomy(Confirmed) Active Hypertension(Confirmed) Active [...]
--- OUTSIDE RECORDS SUMMARY | 2023-02-09 22:45 | XMS_ITS | Continuity of Care Document ---
Author Name Unknown Organization [facility] Address [address] [place] [address]- Care Team Providers Care Wheel Polisher Name Role Phone Jaki Bishop MD Primary Care Physician Encounter [facility] [place] Date(s): 06/01/21 - 07/26/[address] [address]- Attending Physician: Jaki Bishop MD Admitting Physician: [...] to COVID vaccine 2Admin Note: VIS GIVEN [id number] 3Admin Note: VIS GIVEN 2008- 4Admin Note: vis 5Admin Note: vis 02/06/08 Medications Abilify 10 mg oral tablet 10 mg, 1, tablet, By Mouth, Daily, # 90 tablet, Refills 3, Tot. Refills 3, Maintenance, 07/07/21 8:56:00 EDT, Route to Pharmacy Electronically, [place], [place] - [id number], Partialfill upon patient request if the prescription [...] 8:56:00 EDT, Route to Pharmacy Electronically, [facility] [id number], Partial fill upon patient request if the prescri... Start Date: 07/07/21 Status: Ordered Comfort EZ Pen Morton 31 gauge x 5/16 USE TO inject insulin 4 (FOUR) TIMES DAILY Start Date: 07/03/21 Status: Ordered Coreg 6.25 mg oral tablet 6.25 mg, 1, tablet, By Mouth, 2 times a day, # 180 tablet, Refills 3, Tot. Refills 3, Maintenance, 07/07/21 8:56:00 EDT, Route to Pharmacy Electronically, [facility] [id number], Partial fill upon patient request if the prescri... Start Date: 07/07/21 Status: Ordered Daily Multiple Vitamins oral tablet 1 tablet, By Mouth, Daily, # 90 tablet, 3 Refills, Maintenance, 07/07/21 8:56:00 EDT, Tablet, [facility] [id number], Partial fill upon patient request if the prescription is for a schedule II opioid drug., 1 tablet By Mouth Da... Start Date: 07/07/21 Status: Ordered divalproex sodium 250 mg oral enteric coated tablet 1 tablet = 250 mg, By Mouth, Daily in AM, # 90 tablet, 3 Refills, Maintenance, 07/07/21 8:56:00 EDT, Tablet, [facility] [id number], Partial fill upon patient request if the prescription is for a schedule II opioid drug., 167,... Start Date: 07/07/21 Status: Ordered divalproex sodium 500 mg oral enteric coated tablet 1 tablet = 500 mg, By Mouth, Daily at bedtime, # 90 tablet, 3 Refills, Maintenance, 07/07/21 8:56:00 EDT, Tablet, [facility] [id number], Partial fill upon patient request if the prescription is for a schedule II opioid drug.,... Start Date: 07/07/21 Status: Ordered Eucerin Unscented topical lotion See Instructions, Apply daily as directed to dry skin. 16 oz, # 1 each, 3 Refills, Maintenance, 07/07/21 9:02:00 EDT, [facility] [id number], Partial fill upon patient requestif the prescription is for a schedule II opioid dr... Start Date: 07/07/21 Status: Ordered FreeStyle Lite Strips USE TO TEST FINGER STICK BLOOD SUGAR 3 (THREE) TIMES A DAY BEFORE MEALS AND AT BEDTIME Start Date: 07/03/21 Status: Ordered gabapentin 100 mg oral capsule 100 mg, 1, capsule, By Mouth, Daily, PRN, # 90 capsule, Refills 3, Tot. Refills 3, Maintenance, Anxiety, 07/07/21 8:56:00 EDT, Route to Pharmacy Electronically, [facility] [id number], Partial fill upon patient request if the p... Start Date: 07/07/21 Status: Ordered gabapentin 100 mg oral capsule 200 mg, 2, capsule, By Mouth, Daily at bedtime, # 180 capsule, Refills 3, Tot. Refills 3, Maintenance, 07/07/21 8:56:00 EDT, Route to Pharmacy Electronically, [facility] [id number], Partial fill upon patient request if the pre... Start Date: 07/07/21 Status: Ordered guaiFENesin 100 mg/5 mL oral liquid 5 mL = 100 mg, By Mouth, Every 4 hours, PRN for cough, # 300 mL, 0 Refills, Acute 07/07/22 9:05:00 EDT, 07/07/21 9:02:00 EDT, Liquid, [facility] [id number], Partial fill uponpatient request if the prescription [...] Refills, Maintenance, 07/07/21 8:56:00 EDT, Injection, [facility] [id number], Partial fill upon patient request if the [...] 07/07/21 8:56:... Start Date: 07/07/21 Status: Ordered loratadine 10 mg oral tablet 10 mg, 1, tablet, By Mouth, Daily, # 90 tablet, Refills 3, Tot. Refills 3, Maintenance, 07/07/21 8:56:00 EDT, Route to Pharmacy Electronically, [facility] [id number], Partialfill upon patient request if the prescription is fo... Start Date: 07/07/21 Status: Ordered magnesium oxide 400 mg oral tablet 1 tablet = 400 mg, By Mouth, 2 times a day, # 180 tablet, 3 Refills, Maintenance, 07/07/21 8:56:00 EDT, Tablet, [facility] [id number], Partial fill upon patient request if the prescription is for a schedule II opioid drug., 16... Start Date: 07/07/21 Status: Ordered melatonin 3 mg oral tablet 1 tablet = 3 mg, By Mouth, Daily at bedtime, PRN Insomnia, # 90 tablet, 3 Refills, Maintenance, 07/07/21 8:56:00 EDT, Tablet, [facility] [id number], Partial fill upon patientrequest if the prescription is for a schedule II op... Start Date: 07/07/21 Status: Ordered nicotine 2 mg oral transmucosal lozenge 1 lozenge = 2 mg, By Mouth, Every hour, PRN Other, Nicotine Withdrawal Symptoms (not to exceed 20 lozenges per day), # 72 lozenge, 3 Refills, Maintenance, 07/07/21 8:56:00 EDT, Lozenge, [facility] [id number], Partial fill upon... Start Date: 07/07/21 Status: Ordered pancrelipase 10,000 units-32,000 units-42,000 units oral delayed release capsule 1 capsule, By Mouth, 3 times a day, with each meal and snack, # 270 capsule, 3 Refills, Maintenance, 07/07/21 8:56:00 EDT, CR Capsule, [facility] [id number], Partial fill upon patient request if the [...] 3 Refills, Maintenance, 07/07/21 8:56:00 EDT, Tablet, [place], [place] - [id number], Partial fill upon patient request if theprescription [...] Active H/O tubal ligation(Confirmed) Active BHN/[facility] CP Bulk Intake Worker/Janet Pandey [phone](Confirmed) Active Heart failure(Confirmed) Active History of cholecystectomy(Confirmed) [...]
--- OUTSIDE RECORDS SUMMARY | 2023-02-09 22:45 | XMS_ITS | Continuity of Care Document ---
Author Name Unknown Organization [facility] Address [address] [place] [address]- Care Team Providers Care Airfreight Loading Supervisor Name Role Phone Jaki Bishop MD Primary Care Physician Encounter [facility] Date(s): 03/29/22 - 04/28/[address] [address]- Allergies, Adverse Reactions, Alerts Substance Reaction Severity [...] to COVID vaccine 2Admin Note: VIS GIVEN [id number] 3Admin Note: VIS GIVEN 2008- 4Admin Note: [...] 03/25/22 12:04:00 EST, Route to Pharmacy Electronically, [facility], Partial fill uponpatient request if the prescription is for a schedu... Start Date: 03/25/22 Stop Date: 04/24/22 Status: Ordered cloNIDine 0.1 mg oral tablet 0.1 mg, 1, tablet, By Mouth, Daily, # 30 tablet, Refills 0, Tot. Refills 0, Maintenance, 03/25/22 12:04:00 EST, Route to Pharmacy Electronically, [facility], Partial fill upon patient request if the prescription is for a schedule II opio... Start Date: 03/25/22 Stop Date: 04/24/22 Status: Ordered Coreg 6.25 mg oral tablet 6.25 mg, 1, tablet, By Mouth, 2 times a day, # 60 tablet, Refills 0, Tot. Refills 0, Maintenance, 03/25/22 12:04:00 EST, Route to Pharmacy Electronically, [facility], Partial fill upon patient request if the prescription is for a schedul... Start Date: 03/25/22 Stop Date: 04/24/22 Status: Ordered Creon 12,000 units oral delayed release capsule 1 capsule, By Mouth, 3 times a day, # 90 capsule, 0 Refills, Maintenance, 04/20/22 18:43:00 EST, ECCapsule, [facility] [id number], Partial fill upon patient request if the prescription is for a schedule II opioid drug., 167,... Start Date: 04/20/22 Status: Ordered divalproex sodium 500 mg oral enteric coated tablet = 1,000 mg, By Mouth, 2 times a day, # 120 tablet, 0 Refills, Maintenance, 03/25/22 12:06:00 EST, Tablet, [facility] 3, Partial fill upon patient request if [...] opioid drug. Start Date: 03/10/22 Status: Ordered docusate-senna 50 mg-8.6 mg oral capsule 1 capsule, By Mouth, Daily in PM, # 60 capsule, 1 Refills, Maintenance, 04/15/22 14:06:00 EST, Capsule, [facility] [id number], Partial fill upon patient request if the prescription is for a schedule II opioid drug., 1 capsule... Start Date: 04/15/22 Status: Ordered folic acid 1 mg oral tablet 1 mg, 1, tablet, By Mouth, Daily, # 30 tablet, Refills 1, Tot. Refills 1, Maintenance, 04/08/22 16:16:00 EST, Route to Pharmacy Electronically, [facility] [id number], Partialfill upon patient request if the prescription is fo... Start Date: 04/08/22 Status: Ordered Freestyle Lite Lancets See Instructions, [...] 0 Refills, Maintenance, 04/08/22 16:16:00 EST, Liquid, [place], [place] - [id number], Partial fill upon patient request if the prescription is for a schedule II opioid... Start Date: 04/08/22 Status: Ordered Insulin Lispro KwikPen 100 units/mL injectable solution See Instructions, INJECT SUBCUTANEOUSLY 3 (THREE) TIMES A DAY BEFORE MEALS VIA sliding scale (150-199 2u; 200-249 4u; 250-299 6u; 300-349 8u; 350-399 10u; >400 call VNA), # 10 mL, 2 Refills, Maintenance, 04/08/22 16:17:00 EST, Injection, [facility]... Start Date: 04/08/22 Status: Ordered Lantus Solostar Pen 100 units/mL subcutaneous solution = 6 units, Subcutaneous Injection, Daily in AM, # 10 mL, 2 Refills, Maintenance, 04/08/22 16:16:00 EST, Solution, [facility] [id number], Partial fill upon patient request if the prescription is for a schedule II opioid drug.,... Start Date: 04/08/22 Status: Ordered Multivit Therapeutic/Minerals Tablet 1 tablet, By Mouth, Daily, 0 Refills, Maintenance, 03/20/22 18:29:00 EST, Tablet, Partial fill uponpatient request if the prescription is for a schedule II opioid drug. Start Date: 03/20/22 Status: Ordered multivitamin Multiple Vitamins oral tablet 1 tablet, By Mouth, Daily, # 90 tablet, 1 Refills, Maintenance, 04/02/22 16:44:00 EST, Tablet, [place], [place] - [id number], Partial fill upon patient request if the [...] 03/25/22 12:48:00 EST, Route to Pharmacy Electronically, [facility], Partial fill upon patient request if the prescription is for a schedule II... Start Date: 03/25/22 Stop Date: 04/24/22 Status: Ordered risperiDONE 3 mg oral tablet 3 mg, 1, tablet, By Mouth, Daily at bedtime, # 30 tablet, Refills 0, Tot. Refills 0, Maintenance, 03/25/22 12:48:00 EST, Route to Pharmacy Electronically, [facility], Partial fill upon patient request if the prescription is for a schedul... Start Date: 03/25/22 Status: Ordered thiamine 100 mg oral tablet 100 mg, 1, tablet, By Mouth, Daily, for 30 days, # 30 tablet, Refills 0, Tot. Refills 0, Acute 05/15/22 14:07:00 EST, 04/15/22 14:07:00 EST, Route to Pharmacy Electronically, [place], [place] - [id number], Partial fill upon patient re... Start Date: 04/15/22 Stop Date: 05/15/22 Status: Ordered tiotropium 2.5 mcg/inh inhalation aerosol 2 puffs, Inhalation, Daily, # 1 each, 0 Refills, Maintenance, 03/25/22 12:09:00 EST, Inhaler, [facility], Partial fill upon patient request if [...] Lawrence Hendrix Position: [facility] RN Supv Member Role: Primary Care Nurse Name: Rufino Lloyd RN Position: [facility] RN Member Role: Primary Care Nurse Name: Cristina Carpenter RN Position: [facility] RN Member Role: Primary Care Nurse Name: Rosette Noriega RN Position: [facility] SN RN Member Role: Primary Care Nurse Name: Mary Hidalgo RN Position: [facility] PCO RN Member Role: Primary Care Nurse Name: Sissy Duran RN Position: [facility] AMB Nurse Member Role: Primary Care Nurse Name: Rohit Zavaleta RN Position: [facility] RN Member Role: Primary Care Nurse Name: Erlinda Hartman NP Position: [facility] Associate Professional Member Role: Primary Care Nurse Address: Address: [address] [place] [address] Name: Jong Suazo RN Position: [facility] RN Supv Member Role: Primary Care Nurse Name: Shante Solis RN Position: [facility] RN Member Role: Primary Care Nurse Name: Joshua Prakash RN Position: [facility] RN Member Role: Primary Care Nurse Name: Bettie Vanegas RN Position: [facility] RN Member Role: Primary Care Nurse Name: Jay Marroquin RN Position: [facility] RN Member Role: Primary Care Nurse Name: Adrianna Church RN Position: [facility] RN Member Role: Primary Care Nurse Name: Sue Purdy RN Position: [facility] RN Member Role: Primary Care Nurse Name: Hector Perez RN Position: [facility] RN Member Role: Primary Care Nurse Name: Aleena Vizcaino RN Position: [facility] RN Member Role: Primary Care Nurse Name: Kacey Wilhelm RN Position: [facility] RN Member Role: Primary Care Nurse Name: Monalisa Barker Position: [facility] RN Member Role: Primary Care Nurse Name: Leslie Malloy RN Position: [facility] RN Member Role: Primary Care Nurse Name: Yesenia Hu LPN Position: [facility] RN Member Role: Primary Care Nurse Name: Joaquina Herrera RN Position: [facility] RN Member Role: Primary Care Nurse Name: Diego Bell RN Position: [facility] RN Member Role: Primary Care Nurse Name: Ese Grey Position: [facility] RN Member Role: Primary Care Nurse Name: Chela Najera RN Position: [facility] ED RN W/OE and Tasks Member Role: Primary Care Nurse Name: Tootie Gonzalez RN Position: [facility] RN Member Role: Primary Care Nurse Name: Nancy Monte RN Position: [facility] RN Member Role: Primary Care Nurse Name: Marilee Starkey Position: [facility] RN Member Role: Primary Care Nurse Name: Silvina Dodd RN Position: [facility] RN Member Role: Primary Care Nurse Name: Flaco Clifford DO Position: [facility] Renal MD Member Role: Lifetime Consulting Physician Address: Address: [address] [place] [address] [facility] [address] Name: Marilee Richardson RN Position: [facility] RN Member Role: Primary Care Nurse Name: Rufino Johnson RN Position: [facility] RN Member Role: Primary Care Nurse Name: Jovita Camargo RN Position: [facility] RN Member Role: Primary Care Nurse Name: Ju Zhu Position: [facility] RN Member Role: Primary Care Nurse Name: Ester Palomares Position: [facility] RN Member Role: Primary Care Nurse Name: Emma Colbert RN Position: [facility] RN Supv Member Role: Primary Care Nurse Name: Hallie aGmbino RN Position: [facility] Onco RN Member Role: Primary Care Nurse Name: Maya Ambriz RN Position: [facility] RN Member Role: Primary Care Nurse Name: Bhavna Rendon LPN Position: [facility] RN Member Role: Primary Care Nurse Name: Luis Burton RN Position: [facility] RN Member Role: Primary Care Nurse Name: Jaki Bishop MD Position: [facility] Primary Care Physician Member Role: PCP Address: Address: [address] [place] [address] Name: Lucian Krause RN Position: [facility] RN Member Role: Primary Care Nurse Name: Leslie Ward RN Position: [facility] RN Member Role: Primary Care Nurse Name: Jacki Gomes RN Position: [facility] RN Member Role: Primary Care Nurse Name: Ximena Saab RN Position: [facility] RN Member Role: Primary Care Nurse Name: Ivette Shankar RN Position: [facility] RN Supv Member Role: Primary Care Nurse Name: Laura Mary RN Position: [facility] SN RN Member Role: Primary Care Nurse Name: Octavio Box RN Position: [facility] RN Member Role: Primary Care Nurse Name: Nazia Tapia RN Position: [facility] RN Member Role: Primary Care Nurse Name: Caren Hernandez RN Position: [facility] RN Supv Member Role: Primary Care Nurse Name: Veronica Queen RN Position: [facility] RN Member Role: Primary Care Nurse Name: Perri Bryant RN Position: [facility] RN Member Role: Primary Care Nurse Name: Alba Toro RN Position: [facility] RN Member Role: Primary Care Nurse Name: Nely Wong RN Position: [facility] RN Member Role: Primary Care Nurse Name: Erica Brandon RN Position: [facility] RN Member Role: Primary Care Nurse Name: Adrianna Gonzalez RN Position: [facility] RN Member Role: Primary Care Nurse Name: Annmarie Feldman RN Position: [facility] PCO w/OE and EZ Script Member Role: Primary Care Nurse Name: Chinyere Espinoza RN Position: [facility] RN Member Role: Primary Care Nurse Name: Teresita Diallo RN Position: [facility] RN Member Role: Primary Care Nurse Name: Tennille Mcgarry RN Position: [facility] Hospital Claim Processing Specialist Member Role: Primary Care Nurse Name: Vicky Salazar RN Position: [facility] RN Member Role: Primary Care Nurse Name: Spencer Jameson RN Position: S RN Member Role: Primary Care Nurse Name: Jalen Mullins Position: S RN Member Role: Primary Care Nurse Care Team Related Persons Name: MARYANNE KELLER Address: [address] [place] [address] Name: MARYANNE KELLER Address: home [address] [place] [id number] Name: MARYANNE KELLER JR Address: home [address] [place] [address] Name: GEORGIA KELLER Address: [place] [address] Name: BALDEV [place] [address]
--- OUTSIDE RECORDS SUMMARY | 2023-02-09 22:45 | XMS_ITS | Continuity of Care Document ---
Author Name Unknown Organization [facility] Address [address] [place] [address]- Care Team Providers Care Mixer Operator Vacuum Pan Salt Name Role Phone Jaki Bishop MD Primary Care Physician [facility]counter [facility] Date(s): 11/25/21 - 12/25/[address] [id number] Allergies, Adverse Reactions, Alerts [...] to COVID vaccine 2Admin Note: VIS GIVEN [id number] 3Admin Note: VIS GIVEN 2008- 4Admin Note: vis 5Admin Note: vis 02/06/08 Medications Abilify 10 mg oral tablet 10 mg, 1, tablet, By Mouth, Daily, # 90 tablet, Refills 3, Tot. Refills 3, Maintenance, 07/07/21 8:56:00 EDT, Route to Pharmacy Electronically, [facility] [id number], Partialfill upon patient request if the prescription [...] 07/07/21 8:56:00 EDT, Route to Pharmacy Electronically, [facility] [id number], Partial fill upon patient request if the prescri... Start Date: 07/07/21 Status: Ordered Comfort EZ Pen [place] 31 gauge x 5/16 USE TO inject insulin 4 (FOUR) TIMES DAILY Start Date: 07/03/21 Status: Ordered Coreg 6.25 mg oral tablet 6.25 mg, 1, tablet, By Mouth, 2 times a day, # 180 tablet, Refills 3, Tot. Refills 3, Maintenance, 07/07/21 8:56:00 EDT, Route to Pharmacy Electronically, [facility] [id number], Partial fill upon patient request if the prescri... Start Date: 07/07/21 Status: Ordered Daily Multiple Vitamins oral tablet 1 tablet, By Mouth, Daily, # 90 tablet, 3 Refills, Maintenance, 07/07/21 8:56:00 EDT, Tablet, [facility] [id number], Partial fill upon patient request if the prescription is for a schedule II opioid drug., 1 tablet By Mouth Da... Start Date: 07/07/21 Status: Ordered divalproex sodium 250 mg oral enteric coated tablet 1 tablet = 250 mg, By Mouth, Daily in AM, # 90 tablet, 3 Refills, Maintenance, 07/07/21 8:56:00 EDT, Tablet, [facility] [id number], Partial fill upon patient request if the prescription is for a schedule II opioid drug., 167,... Start Date: 07/07/21 Status: Ordered divalproex sodium 500 mg oral enteric coated tablet 1 tablet = 500 mg, By Mouth, Daily at bedtime, # 90 tablet, 3 Refills, Maintenance, 07/07/21 8:56:00 EDT, Tablet, [facility] [id number], Partial fill upon patient request if the prescription is for a schedule II opioid drug.,... Start Date: 07/07/21 Status: Ordered Eucerin Unscented topical lotion See Instructions, Apply daily as directed to dry skin. 16 oz, # 1 each, 3 Refills, Maintenance, 07/07/21 9:02:00 EDT, [facility] [id number], Partial fill upon patient requestif the prescription is for a schedule II opioid drRandee. Start Date: 07/07/21 Status: Ordered folic acid 1 mg oral tablet 1 mg, 1, tablet, By Mouth, Daily, # 30 tablet, Refills 1, Tot. Refills 1, Maintenance, 10/21/21 12:44:00 EDT, Route to Pharmacy Electronically, [place], [place] - [id number], Partialfill upon patient request if the prescription [...] 07/07/21 8:56:00 EDT, Route to Pharmacy Electronically, [facility] [id number], Partial fill upon patient request if the p... Start Date: 07/07/21 Status: Ordered gabapentin 100 mg oral capsule 200 mg, 2, capsule, By Mouth, Daily at bedtime, # 180 capsule, Refills 3, Tot. Refills 3, Maintenance, 07/07/21 8:56:00 EDT, Route to Pharmacy Electronically, [facility] [id number], Partial fill upon patient request if the pre... Start Date: 07/07/21 Status: Ordered guaiFENesin 100 mg/5 mL oral liquid 5 mL = 100 mg, By Mouth, Every 4 hours, PRN for cough, # 300 mL, 0 Refills, Acute 07/07/22 9:05:00 EDT, 07/07/21 9:02:00 EDT, Liquid, [facility] [id number], Partial fill uponpatient request if the prescription [...] a day, # 581 mL, 3 Refills, [facility], , TAKE 30mls BY MOUTH 2 (two) times a day, 167, cm, 07/07/21 8:39:00 EDT, Height, 95.6, kg, 06/29/21 18:39:00 EDT, Dry Weight Start Date: 08/10/21 Status: Ordered Lantus Solostar Pen 100 units/mL subcutaneous solution = 16 units, Subcutaneous Infusion, Daily, # 15 mL, 5 Refills, Maintenance, 09/11/21 17:25:00 EDT, [facility] [id number], Partial fill upon patient request if the prescriptionis for a schedule II opioid drug., 167, cm, ... Start Date: 09/11/21 Status: Ordered loratadine 10 mg oral tablet 10 mg, 1, tablet, By Mouth, Daily, # 90 tablet, Refills 3, Tot. Refills 3, Maintenance, 07/07/21 8:56:00 EDT, Route to Pharmacy Electronically, [facility] [id number], Partialfill upon patient request if the prescription is fo... Start Date: 07/07/21 Status: Ordered magnesium oxide 400 mg oral tablet 1 tablet = 400 mg, By Mouth, 2 times a day, # 180 tablet, 3 Refills, Maintenance, 07/07/21 8:56:00 EDT, Tablet, [facility] [id number], Partial fill upon patient request if the prescription is for a schedule II opioid drug., 16... Start Date: 07/07/21 Status: Ordered melatonin 3 mg oral tablet 1 tablet = 3 mg, By Mouth, Daily at bedtime, PRN Insomnia, # 90 tablet, 3 Refills, Maintenance, 07/07/21 8:56:00 EDT, Tablet, [facility] [id number], Partial fill upon patientrequest if the prescription is for a schedule II op... Start Date: 07/07/21 Status: Ordered Narcan 4 mg/0.1 mL nasal spray = 4 mg, Naris, Left, Once, may repeat every 2 to 3 minutes until patient responds. PRN opioid overdose, # 2 each, 0 Refills, Soft Stop, 11/27/21 19:25:00 EDT, [facility] [id number], Partial fill upon patient request if the pre... Start Date: 11/27/21 Status: Ordered nicotine 2 mg oral transmucosal lozenge 1 lozenge = 2 mg, By Mouth, Every hour, PRN Other, Nicotine Withdrawal Symptoms (not to exceed 20 lozenges per day), # 72 lozenge, 3 Refills, Maintenance, 07/07/21 8:56:00 EDT, Lozenge, [facility] [id number], Partial fill upon... Start Date: 07/07/21 Status: Ordered pancrelipase 10,000 units-32,000 units-42,000 units oral delayed release capsule 1 capsule, By Mouth, 3 times a day, with each meal and snack, # 270 capsule, 3 Refills, Maintenance, 10/21/21 17:17:00 EDT, CR Capsule, [facility] [id number], Partial fill upon patient request if the prescription is for a sche... Start Date: 10/21/21 Status: Ordered pantoprazole 40 mg oral delayed release tablet 1 tablet = 40 mg, By Mouth, Daily, # 90 tablet, 3 Refills, Maintenance, 10/19/21 14:26:00 EDT, EC Tablet, 167, cm, 07/07/21 8:39:00 EDT, Height, 95.6, kg, 06/29/21 18:39:00 EDT, Dry Weight Start Date: 10/19/21 Status: Ordered Pen [place], 31 G x 8 mm BD Ultra [...] 10/21/21 12:48:00 EDT, Route to Pharmacy Electronically, [facility] [id number],Partial fill upon patient request if the prescripti... [...] 3 Refills, Maintenance, 07/07/21 8:56:00 EDT, Tablet, [place], [place] - [id number], Partial fill upon patient request if theprescription [...] H/O tubal ligation Confirmed Active BHN/BH CP Board Setter/Niya Pandey [phone] Confirmed Active Heart failure Confirmed Active History [...] Personnel Name: Jaki Bishop MD Address: Address: [address] [place] [address]-
--- OUTSIDE RECORDS SUMMARY | 2023-02-09 22:46 | XMS_ITS | Continuity of Care Document ---
Author Name Unknown Organization [facility] Address [address] [place] [address]- Care Team Providers Care Slat Basket Top Maker Name Role Phone Dario HAYDEN, Jaki Primary Care Physician Encounter [facility] Date(s): 10/21/22 - 11/20/[address] [address]- Allergies, Adverse Reactions, Alerts Substance Reaction Severity Status NSAIDs 1 Active predniSONE Dizzinesses -DEC-2015 21:52:27<$> Active Zyprexa Hypertension Active 1lsited due [...] to COVID vaccine 2Admin Note: VIS GIVEN [id number] 3Admin Note: VIS GIVEN 2008- 4Admin Note: vis 5Admin Note: vis 02/06/08 Medications albuterol 90 mcg/inh inhalation powder 2 puffs, Inhalation, Every 4 hours, PRN as needed, PRN Wheezing, # 1 each, 1 Refills, Maintenance, 06/28/22 14:49:00 EDT, Powder, [facility] [id number], Partial fill upon patient request if the [...] 07/16/22 16:04:00 EDT, Route to Pharmacy Electronically, [facility] [id number], Partialfill upon patient request if the prescription is fo... Start Date: 07/16/22 Status: Ordered benztropine 1 mg oral tablet 0.5 mg, 0.5, tablet, By Mouth, 2 times a day, # 30 tablet, Refills 3, Tot. Refills 3, Maintenance, 09/17/22 1:51:00 EDT, Route to Pharmacy Electronically, [facility] [id number], Partial fill upon patient request if the [...] 10/18/22 11:46:00 EDT, Route to Pharmacy Electronically, [facility] [id number], Partial fill upon patient request if the prescr... Start Date: 10/18/22 Status: Ordered cloNIDine 0.1 mg oral tablet 0.1 mg, 1, tablet, By Mouth, Daily at bedtime, # 30 tablet, Refills 2, Tot. Refills 2, Maintenance,10/18/22 11:46:00 EDT, Route to Pharmacy Electronically, [facility] [id number], Partial fill upon patient request if the presc... Start Date: 10/18/22 Status: Ordered Creon 12,000 units oral delayed release capsule 1 capsule, By Mouth, 3 times a day, # 90 capsule, 3 Refills, Maintenance, 09/17/22 1:49:00 EDT, EC Capsule, [facility] [id number], Partial fill upon patient request if the [...] 09/17/22 1:48:00 EDT, Route to Pharmacy Electronically, [facility] [id number], 160, cm, 07/26/22 12:51:00 EDT, Height, 89.2, [...] 10/18/22 11:46:00 EDT, Route to Pharmacy Electronically, [facility] [id number], Partial fill upon patient request if the [...] mL, 5 Refills, Maintenance, 09/17/22 1:49:00 EDT, [facility] [id number], 15, 30 mL By Mouth 2 times a day, 160, cm, 07/26/22 12:51:00 EDT, Height, 89.2, kg, 07/21/22 3:29:00 EDT, Dry Weight Start Date: 09/17/22 Status: Ordered Lantus Solostar Pen 100 units/mL subcutaneous solution = 6 units, Subcutaneous Injection, Daily in AM, # 10 mL, 2 Refills, Maintenance, 04/29/22 14:34:00 EST, Solution, [facility] [id number], Partial fill upon patient request if the prescription is for a schedule II opioid drug.,... Start Date: 04/29/22 Status: Ordered magnesium oxide 400 mg oral tablet 1 tablet = 400 mg, By Mouth, Daily, for 14 days, # 14 tablet, 0 Refills, Acute 12/02/22 20:51:00 EDT, 11/18/22 20:51:00 EDT, Tablet, [facility] [id number], Partial fill upon patient request if the prescription is for a schedul... Start Date: 11/18/22 Stop Date: 12/02/22 Status: Ordered multivitamin Multiple Vitamins oral tablet 1 tablet, By Mouth, Daily, # 90 tablet, 1 Refills, Maintenance, 10/22/22 19:32:00 EDT, Tablet, [facility] [id number], Partial fill upon patient request if the prescription isfor a schedule II opioid drug., 1 tablet By Mouth D... Start Date: 10/22/22 Status: Ordered Nicotine 2 mg gum 1 each = 2 mg, Chew, Every 2 hours, PRN for smoking cessation, for 4 week(s), # 160 each, 1 Refills, Acute 12/13/22 11:41:00 EDT, 10/18/22 11:41:00 EDT, Gum, [facility] [id number], Partial fill upon patient request if the pres... Start Date: 10/18/22 Stop Date: 12/13/22 Status: Ordered pantoprazole 40 mg oral delayed release tablet 1 tablet, By Mouth, Daily, # 30 tablet, 2 Refills, Maintenance, 11/10/22 11:02:00 EDT, 165.09, cm, 10/18/22 11:23:00 EDT, Height, 83.7, kg, 10/05/22 21:20:00 EDT, Dry Weight Start Date: 11/10/22 Status: Ordered Pen [place], 31 G x 5 mm BD Ultra [...] 10/12/22 10:21:00 EDT, Route to Pharmacy Electronically, [facility] [id number], Partial fill upon patient request if the prescription... Start Date: 10/12/22 Stop Date: 11/11/22 Status: Ordered risperiDONE 3 mg oral tablet 3 mg, 1, tablet, By Mouth, Daily at bedtime, # 30 tablet, Refills 0, Tot. Refills 0, Maintenance, 10/12/22 10:21:00 EDT, Route to Pharmacy Electronically, [facility] [id number], Partial fill upon patient request if the [...] 5 Refills, Maintenance, 09/17/22 1:52:00 EDT[facility] [place] [place] [facility] [id number], Partial fill upon patient request if the prescription is for a schedule II opioid drug., 160, cm, 07/26/22 12:... Start Date: 09/17/22 Stop Date: 03/16/23 Status: Ordered traZODone 50 mg oral tablet 50 mg, 1, tablet, By Mouth, Daily at bedtime, # 30 tablet, Refills 2, Tot. Refills 2, Maintenance, 09/17/22 1:47:00 EDT, Route to Pharmacy Electronically, [place], [place] - [id number], Partial fill upon patient request if the [...] Member Role: Primary Care Nurse Address: Address: [address] [place] [address] Name: Shante Solis RN [facility] Care Nurse Name: Chela Najera RN Position: [facility] RN Member Role: Primary Care Nurse Name: Tootie Gonzalez RN Position: [facility] RN Member Role: Primary Care Nurse Name: Nancy Monte RN Position: [facility] RN Member Role: Primary Care Nurse Name: Marilee Starkey Position: [facility] RN Member Role: Primary Care Nurse Name: Silvina Dodd RN Position: [facility] RN Member Role: Primary Care Nurse Name: Flaco Clifford DO Position: [facility] Renal MD Member Role: Lifetime Consulting Physician Address: Address: [address] [place] [address] [facility] [place], [place] [address] Name: Marilee Richardson RN Position: [facility] [...] Care Member Role: PCP Address: Address: [address] [place] [address]- [place] Name: Lucian Krause RN Position: [facility] RN Member Role: Primary Care Nurse Name: aMr Brothers RN Position: [facility] [...] Care Nurse Name: Caren Hernandez RN Position: [facility] RN Jaun Member Role: Primary Care Nurse Name: Perri Bryant RN Position: [facility] [...] Care Nurse Name: Tennille Mcgarry RN Position: [facility] Hospital Childcare Worker Member Role: Primary Care Nurse Name: Vicky Salazar RN Position: [facility] RN Member Role: Primary Care Nurse Name: Spencer Jameson RN Position: [facility] RN Member Role: Primary Care Nurse Name: Jalen Mullins Position: S RN Member Role: Primary Care Nurse Care Team Related Persons Name: MARYANNE KELLER Address: home [address] [place] [address] Name: MARYANNE KELLER Address: home [address] [address] Name: MARYANNE KELLER JR Address: home [address] [place] [address] Name: GEORGIA KELLER Address: [place] [address] Name: BALDEV POLANCO Address: [place] [address]
--- OUTSIDE RECORDS SUMMARY | 2023-02-09 22:46 | XMS_ITS | Continuity of Care Document ---
Author Name Unknown Organization [facility] Address [address] [place] [address]- Care Team Providers Care Core Maker Name Role Phone Jaki Bishop MD Primary Care Physician Encounter [facility] Date(s): 07/07/21 - 10/02/[address] [address]- Attending Physician: Jaki Bishop MD Admitting Physician: [...] to COVID vaccine 2Admin Note: VIS GIVEN [id number] 3Admin Note: VIS GIVEN 2008- 4Admin Note: vis 5Admin Note: vis 02/06/08 Medications Abilify 10 mg oral tablet 10 mg, 1, tablet, By Mouth, Daily, # 90 tablet, Refills 3, Tot. Refills 3, Maintenance, 07/07/21 8:56:00 EDT, Route to Pharmacy Electronically, [place], [place] - [id number], Partialfill upon patient request if the prescription [...] 07/07/21 8:56:00 EDT, Route to Pharmacy Electronically, [facility] [id number], Partial fill upon patient request if the prescri... Start Date: 07/07/21 Status: Ordered Comfort EZ Pen [place] 31 gauge x 5/16 USE TO inject insulin 4 (FOUR) TIMES DAILY Start Date: 07/03/21 Status: Ordered Coreg 6.25 mg oral tablet 6.25 mg, 1, tablet, By Mouth, 2 times a day, # 180 tablet, Refills 3, Tot. Refills 3, Maintenance, 07/07/21 8:56:00 EDT, Route to Pharmacy Electronically, [facility] [id number], Partial fill upon patient request if the prescri... Start Date: 07/07/21 Status: Ordered Daily Multiple Vitamins oral tablet 1 tablet, By Mouth, Daily, # 90 tablet, 3 Refills, Maintenance, 07/07/21 8:56:00 EDT, Tablet, [facility] [id number], Partial fill upon patient request if the prescription is for a schedule II opioid drug., 1 tablet By Mouth Da... Start Date: 07/07/21 Status: Ordered divalproex sodium 250 mg oral enteric coated tablet 1 tablet = 250 mg, By Mouth, Daily in AM, # 90 tablet, 3 Refills, Maintenance, 07/07/21 8:56:00 EDT, Tablet, [facility] [id number], Partial fill upon patient request if the prescription is for a schedule II opioid drug., 167,... Start Date: 07/07/21 Status: Ordered divalproex sodium 500 mg oral enteric coated tablet 1 tablet = 500 mg, By Mouth, Daily at bedtime, # 90 tablet, 3 Refills, Maintenance, 07/07/21 8:56:00 EDT, Tablet, [facility] [id number], Partial fill upon patient request if the prescription is for a schedule II opioid drug.,... Start Date: 07/07/21 Status: Ordered Eucerin Unscented topical lotion See Instructions, Apply daily as directed to dry skin. 16 oz, # 1 each, 3 Refills, Maintenance, 07/07/21 9:02:00 EDT, [facility] [id number], Partial fill upon patient requestif the prescription [...] 07/07/21 8:56:00 EDT, Route to Pharmacy Electronically, [facility] [id number], Partial fill upon patient request if the p... Start Date: 07/07/21 Status: Ordered gabapentin 100 mg oral capsule 200 mg, 2, capsule, By Mouth, Daily at bedtime, # 180 capsule, Refills 3, Tot. Refills 3, Maintenance, 07/07/21 8:56:00 EDT, Route to Pharmacy Electronically, [facility] [id number], Partial fill upon patient request if the pre... Start Date: 07/07/21 Status: Ordered guaiFENesin 100 mg/5 mL oral liquid 5 mL = 100 mg, By Mouth, Every 4 hours, PRN for cough, # 300 mL, 0 Refills, Acute 07/07/22 9:05:00 EDT, 07/07/21 9:02:00 EDT, Liquid, [facility] [id number], Partial fill uponpatient request if the prescription [...] a day, # 581 mL, 3 Refills, [facility], , TAKE 30mls BY MOUTH 2 (two) times a day, 167, cm, 07/07/21 8:39:00 EDT, Height, 95.6, kg, 06/29/21 18:39:00 EDT, Dry Weight Start Date: 08/10/21 Status: Ordered Lantus Solostar Pen 100 units/mL subcutaneous solution = 16 units, Subcutaneous Infusion, Daily, # 15 mL, 5 Refills, Maintenance, 09/11/21 17:25:00 EDT, [facility], [facility] [id number], Partial fill upon patient request if the prescriptionis for a schedule II opioid drug., 167, cm, ... Start Date: 09/11/21 Status: Ordered loratadine 10 mg oral tablet 10 mg, 1, tablet, By Mouth, Daily, # 90 tablet, Refills 3, Tot. Refills 3, Maintenance, 07/07/21 8:56:00 EDT, Route to Pharmacy Electronically, [facility], [place] - [id number], Partialfill upon patient request if the prescription is fo... Start Date: 07/07/21 Status: Ordered magnesium oxide 400 mg oral tablet 1 tablet = 400 mg, By Mouth, 2 times a day, # 180 tablet, 3 Refills, Maintenance, 07/07/21 8:56:00 EDT, Tablet, [facility] [id number], Partial fill upon patient request if the prescription is for a schedule II opioid drug., 16... Start Date: 07/07/21 Status: Ordered melatonin 3 mg oral tablet 1 tablet = 3 mg, By Mouth, Daily at bedtime, PRN Insomnia, # 90 tablet, 3 Refills, Maintenance, 07/07/21 8:56:00 EDT, Tablet, [facility] [id number], Partial fill upon patientrequest if the prescription is for a schedule II op... Start Date: 07/07/21 Status: Ordered nicotine 2 mg oral transmucosal lozenge 1 lozenge = 2 mg, By Mouth, Every hour, PRN Other, Nicotine Withdrawal Symptoms (not to exceed 20 lozenges per day), # 72 lozenge, 3 Refills, Maintenance, 07/07/21 8:56:00 EDT, Lozenge, [place], [place] - [id number], Partial fill upon... Start Date: 07/07/21 Status: Ordered pancrelipase 10,000 units-32,000 units-42,000 units oral delayed release capsule 1 capsule, By Mouth, 3 times a day, with each meal and snack, # 270 capsule, 3 Refills, Maintenance, 07/07/21 8:56:00 EDT, CR Capsule, [place], [place] - [id number], Partial fill upon patient request if the [...] Weight Start Date: 07/07/21 Status: Ordered Pen [place], 31 G x 8 mm BD Ultra [...] 3 Refills, Maintenance, 07/07/21 8:56:00 EDT, Tablet, [facility] [place], [place] - [id number], Partial fill upon patient request if theprescription [...] Active H/O tubal ligation(Confirmed) Active BHN/ CP Guest Relations Representative/Janet salvador [facility] [phone](Confirmed) Active Heart failure(Confirmed) Active History of cholecystectomy(Confirmed) [...]
--- OUTSIDE RECORDS SUMMARY | 2023-02-09 22:46 | XMS_ITS | Continuity of Care Document ---
Author Name Unknown Organization [facility] Address [address] [place] [address]- Care Team Providers Care Od Grinder Operator Name Role Phone Jaki Bishop MD Primary Care Physician [facility] Date[facility]s): 12/04/20 - 01/03/[address] [address]- Allergies, Adverse Reactions, Alerts Substance Reaction Severity [...] to COVID vaccine 2Admin Note: VIS GIVEN [id number] 3Admin Note: VIS GIVEN 2008-12 4Admin Note: [...] 0 Refills, Maintenance, 11/28/20 9:22:00 EDT, Solution, [facility], Partial fill upon patient request if the prescription is for a schedule II opioid drug., 167.64, cm, 11/27... Start Date: 11/28/20 Status: Ordered benztropine 0.5 mg oral tablet 0.5 mg, 1, tablet, By Mouth, 2 times a day, # 60 tablet, Refills 0, Tot. Refills 0, Maintenance, 11/28/20 9:27:00 EDT, Route to Pharmacy Electronically, [facility], Partial fill upon patient request if the prescription is for a schedule... Start Date: 11/28/20 Status: Ordered Cane See Instructions, # 1 each, Maintenance, [id number], includes canes of all materials, adjustable orfixed, with tip, 11/28/20 9:32:00 EDT, Supply, 167.64, cm, 11/27/20 22:30:00 EDT, Height, 98.5, kg,10/22/20 17:50:00 EDT, Dry Weight Start Date: 11/28/20 Status: Ordered clozapine 100 mg oral tablet 1 tablet = 100 mg, By Mouth, 2 times a day, # 60 tablet, 0 Refills, Maintenance, 11/28/20 9:20:00 EDT, Tablet, [facility], Partial fill upon patient request if the prescription is for aschedule II opioid drug., 167.64, cm, 11/27/20 22:3... Start Date: 11/28/20 Status: Ordered Coreg 12.5 mg oral tablet 12.5 mg, 1, tablet, By Mouth, 2 times a day, # 60 tablet, Refills 0, Tot. Refills 0, Maintenance, 11/28/20 9:20:00 EDT, Route to Pharmacy Electronically, [facility], Partial fill upon patient request if [...] 01/27/21 9:24:00 EST, 11/28/20 9:24:00 EDT, Syrup, [facility], Partial fill upon patient request if theprescription is for a schedule II opioid drug., 30... Start Date: 11/28/20 Stop Date: 01/27/21 Status: Ordered loratadine 10 mg oral tablet 10 mg, 1, tablet, By Mouth, Daily, # 30 tablet, Refills 0, Tot. Refills 0, Maintenance, 11/28/20 9:25:00 EDT, Route to Pharmacy Electronically, [facility], Partial fill upon patient [...] 02/20/21 9:25:00 EST, 11/28/20 9:25:00 EDT, Gum, [facility], Partial fill upon patient request if the prescription is for a schedule II... Start Date: 11/28/20 Stop Date: 02/20/21 Status: Ordered pancrelipase 10,000 units-32,000 units-42,000 units oral delayed release capsule 1 capsule, By Mouth, 3 times a day, with each meal and snack, # 90 capsule, 0 Refills, Maintenance,11/28/20 9:26:00 EDT, CR Capsule, [facility], Partial fill upon patient [...] 0 Refills, Maintenance, 11/28/20 9:27:00 EDT, Nasal [place], [facility], Partial fill upon patient request if the prescription is for a schedule II opioid drug., 2 sprays... Start Date: 11/28/20 Stop Date: 12/28/20 Status: Ordered torsemide 20 mg oral tablet 1 tablet = 20 mg, By Mouth, Daily, # 30 tablet, 0 Refills, Maintenance, 11/28/20 9:27:00 EDT, Tablet, [facility], Partial fill upon patient [...] Active H/O tubal ligation(Confirmed) Active BHN/ CP Bullet Swaging Machine Adjuster/Janet Pandey [phone](Confirmed) Active History of cholecystectomy(Confirmed) Active Hypertension(Confirmed) Active [...]
--- OUTSIDE RECORDS SUMMARY | 2023-02-09 22:46 | XMS_ITS | Continuity of Care Document ---
Author Name Unknown Organization [facility] Address [address] [place] [address]- Care Team Providers Care Stores Assistant Name Role Phone Jaki Bishop MD Primary Care Physician [phone] [facility]counter [facility] Date(s): 02/25/21 - 03/27/[address] [address]- Allergies, Adverse Reactions, Alerts Substance Reaction Severity [...] to COVID vaccine 2Admin Note: VIS GIVEN [id number] 3Admin Note: VIS GIVEN 2008- 4Admin Note: [...] Active H/O tubal ligation(Confirmed) Active BHN/ CP Spanish Professor/Janet salvador [facility] [phone](Confirmed) Active Heart failure(Confirmed) Active History of cholecystectomy(Confirmed) [...]
--- OUTSIDE RECORDS SUMMARY | 2023-02-09 22:46 | XMS_ITS | Continuity of Care Document ---
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
--- OUTSIDE RECORDS SUMMARY | 2023-02-09 22:46 | XMS_ITS | Continuity of Care Document ---
Author Name Unknown Organization [facility] Address [address] [place] [address]- Care Team Providers Care Svp Marketing Name Role Phone Jaki Bishop MD Primary Care Physician [facility] Date[facility]s): 12/22/20 - 01/30/[address] [address]- Attending Physician: Not on Staff, Attending MD [...] to COVID vaccine 2Admin Note: VIS GIVEN [id number] 3Admin Note: VIS GIVEN 2008-12 4Admin Note: [...] 11/28/20 9:27:00 EDT, Route to Pharmacy Electronically, [facility], Partial fill upon patient request if the prescription is for a schedule... Start Date: 11/28/20 Status: Ordered Cane See Instructions, # 1 each, Maintenance, [id number], includes canes of all materials, adjustable orfixed, with tip, 11/28/20 9:32:00 EDT, Supply, 167.64, cm, 11/27/20 22:30:00 EDT, Height, 98.5, kg,10/22/20 17:50:00 EDT, Dry Weight Start Date: 11/28/20 Status: Ordered clozapine 100 mg oral tablet 1 tablet = 100 mg, By Mouth, 2 times a day, # 60 tablet, 0 Refills, Maintenance, 11/28/20 9:20:00 EDT, Tablet, [facility], Partial fill upon patient request if the prescription is for aschedule II opioid drug., 167.64, cm, 11/27/20 22:3... Start Date: 11/28/20 Status: Ordered Coreg 12.5 mg oral tablet 12.5 mg, 1, tablet, By Mouth, 2 times a day, # 60 tablet, Refills 0, Tot. Refills 0, Maintenance, 11/28/20 9:20:00 EDT, Route to Pharmacy Electronically, [facility], Partial fill upon patient request [...] mL, 5 Refills, Maintenance, 01/22/21 18:45:00 EDT, [id number], Partial fill upon patient request if the prescription is for a schedule II opioid drug., 167.64, cm, 0... Start Date: 01/22/21 Stop Date: 07/21/21 Status: Ordered loratadine 10 mg oral tablet 10 mg, 1, tablet, By Mouth, Daily, # 30 tablet, Refills 0, Tot. Refills 0, Maintenance, 11/28/20 9:25:00 EDT, Route to Pharmacy Electronically, [facility], Partial fill upon patient request [...] a day, # 60 tablet, 0 Refills, [facility], 167.64, cm, 11/27/20 22:30:00 EDT, Height, 98.5, kg, 10/22/20 17:50:00 EDT, Dry Weight Start Date: 01/08/21 Status: Ordered Nicotine 2 mg gum = 2 mg, Chew, Every 2 hours, PRN Other, for 6 week(s), Nicotine Cravings, # 40 each, 1 Refills, Acute 02/20/21 9:25:00 EST, 11/28/20 9:25:00 EDT, Gum, [facility], Partial fill upon patient request if the prescription is for a schedule II... Start Date: 11/28/20 Stop Date: 02/20/21 Status: Ordered pancrelipase 10,000 units-32,000 units-42,000 units oral delayed release capsule 1 capsule, By Mouth, 3 times a day, with each meal and snack, # 90 capsule, 0 Refills, Maintenance,11/28/20 9:26:00 EDT, CR Capsule, [facility], Partial fill upon patient [...] 11/28/20 Stop Date: 01/27/21 Status: Ordered Pen [place], 31 G x 8 mm BD Ultra [...] 0 Refills, Maintenance, 11/28/20 9:27:00 EDT, Nasal [place], [facility], Partial fill upon patient request if the prescription is for a schedule II opioid drug., 2 sprays... 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
--- OUTSIDE RECORDS SUMMARY | 2023-02-09 22:46 | XMS_ITS | Continuity of Care Document ---
Author Name Unknown Organization [facility] Address [address] [place] [address]- Care Team Providers Care Explosives Truck Driver Name Role Phone Jaki Bishop MD Primary Care Physician [facility] Date[facility]s): 12/24/21 - 01/28/[address] [address]- Attending Physician: Not on Staff, Attending MD [...] to COVID vaccine 2Admin Note: VIS GIVEN [id number] 3Admin Note: VIS GIVEN 2008-12 4Admin Note: [...] 10/21/21 12:44:00 EDT, Route to Pharmacy Electronically, [place], [place] - [id number], Partialfill upon patient request if the prescription [...] mL, 5 Refills, Maintenance, 09/11/21 17:25:00 EDT, [place], [place] - [id number], Partial fill upon patient request if the [...] Primary Care Nurse Name: Lawrence Hendrix Position: [facility] RN Supv Member Role: Primary Care Nurse Name: Rufino Lloyd RN Position: [facility] RN Member Role: Primary Care Nurse Name: Cristina Carpenter RN Position: [facility] RN Member Role: Primary Care Nurse Name: Rosette Noriega RN Position: [facility] SN RN Member Role: Primary Care Nurse Name: Mary Hidalgo RN Position: [facility] PCO RN Member Role: Primary Care Nurse Name: Sissy Duran RN Position: [facility] AMB Nurse Member Role: Primary Care Nurse Name: Larissa Neely RN Position: [facility] RN Member Role: Primary Care Nurse Name: Rohit Zavaleta RN Position: [facility] RN Member Role: Primary Care Nurse Name: Erlinda Hartman NP Position: [facility] Associate Professional Member Role: Primary Care Nurse Address: Address: [address] [place] [id number] Name: Jong Suazo RN Position: [facility] RN Supv Member Role: Primary Care Nurse Name: Shante Solis RN Position: [facility] RN Member Role: Primary Care Nurse Name: Bettie Vanegas RN Position: [facility] RN Member Role: Primary Care Nurse Name: Jay Marroquin RN Position: [facility] RN Member Role: Primary Care Nurse Name: Sue Purdy RN Position: [facility] RN Member Role: Primary Care Nurse Name: Hector Perez RN Position: [facility] RN Member Role: Primary Care Nurse Name: Aleena Vizcaino RN Position: [facility] RN Member Role: Primary Care Nurse Name: Kacey Wilhelm RN Position: [facility] RN Member Role: Primary Care Nurse Name: Monalisa Barker Position: [facility] RN Member Role: Primary Care Nurse Name: Leslie Malloy RN Position: [facility] RN Member Role: Primary Care Nurse Name: Joaquina Herrera RN Position: [facility] RN Member Role: Primary Care Nurse Name: Diego Bell RN Position: [facility] RN Member Role: Primary Care Nurse Name: Ese Grey Position: [facility] RN Member Role: Primary Care Nurse Name: Chela Najera RN Position: [facility] RN Member Role: Primary Care Nurse Name: Tootie Gonzalez RN Position: [facility] RN Member Role: Primary Care Nurse Name: Nancy Monte RN Position: [facility] RN Member Role: Primary Care Nurse Name: Marilee Starkey Position: S RN Member Role: Primary Care Nurse Name: Silvina Dodd RN Position: [facility] RN Member Role: Primary Care Nurse Name: Kiran Molina RN Position: S RN Member Role: Primary Care Nurse Name: Flaco Clifford DO Position: [facility] Renal MD Member Role: Lifetime Consulting Physician Address: Address: [address] [place], [place] [address] [place] [address]- Name: Marilee Richardson RN Position: [facility] RN Member Role: Primary Care Nurse Name: Rufino Johnson RN Position: [facility] RN Member Role: Primary Care Nurse Name: Jovita Camargo RN Position: [facility] RN Member Role: Primary Care Nurse Name: Ju Zhu Position: [facility] RN Member Role: Primary Care Nurse Name: Ester Palomares Position: [facility] RN Member Role: Primary Care Nurse Name: Emma Colbert RN Position: [facility] RN Supv Member Role: Primary Care Nurse Name: Hallie Gambino RN Position: [facility] Onco RN Member Role: Primary Care Nurse Name: Maya Ambriz RN Position: [facility] RN Member Role: Primary Care Nurse Name: Kristen Gar RN Position: [facility] RN Member Role: Primary Care Nurse Name: Luis Burton RN Position: [facility] RN Member Role: Primary Care Nurse Name: Jaki Bishop MD Position: [facility] Primary Care Physician Member Role: PCP Address: Address: [address] [place] [address]- Name: Leslie Ward RN Position: [facility] RN Member Role: Primary Care Nurse Name: Jacik Gomes RN Position: [facility] RN Member Role: Primary Care Nurse Name: Ximena Saab RN Position: [facility] RN Member Role: Primary Care Nurse Name: Ivette Shankar RN Position: [facility] RN Supv Member Role: Primary Care Nurse Name: Laura Mary RN Position: [facility] SN RN Member Role: Primary Care Nurse Name: Octavio Box RN Position: [facility] RN Member Role: Primary Care Nurse Name: Caren Hernandez RN Position: [facility] RN Supv Member Role: Primary Care Nurse Name: Kinza De La Cruz RN Position: [facility] RN Member Role: Primary Care Nurse Name: Veronica Queen RN Position: [facility] RN Member Role: Primary Care Nurse Name: Nely Wong RN Position: [facility] RN Member Role: Primary Care Nurse Name: Erica Brandon RN Position: [facility] RN Member Role: Primary Care Nurse Name: Adrianna Gonzalez RN Position: [facility] RN Member Role: Primary Care Nurse Name: Annmarie Feldman RN Position: [facility] PCO w/OE and EZ Script Member Role: Primary Care Nurse Name: Chinyere Espinoza RN Position: [facility] RN Member Role: Primary Care Nurse Name: Teresita Diallo RN Position: [facility] RN Member Role: Primary Care Nurse Name: Tennille Mcgarry RN Position: [facility] Hospital Fruit Room Hand Member Role: Primary Care Nurse Name: Vicky Salazar RN Position: [facility] RN Member Role: Primary Care Nurse Name: Jalen Mullins Position: [facility] RN Member Role: Primary Care Nurse Care Team Related Persons Name: MARYANNE KELLER Address: home [address] [place] [address] Name: MARYANNE KELLER Address: home [address] [place] [address] Name: GEORGIA KELLER Address: [place] [address] Name: BALDEV POLANCO Address: [place], [place]
--- OUTSIDE RECORDS SUMMARY | 2023-02-09 22:46 | XMS_ITS | Continuity of Care Document ---
Author Name Unknown Organization [facility] Address [address] [place] [address]- Care Team Providers Care E Commerce Manager Name Role Phone Jaki Bishop MD Primary Care Physician [facility] R [id number] Date(s): 09/02/21 - 10/02/[address] [address]- Attending Physician: trAntonio Allergies, Adverse Reactions, Alerts Substance Reaction Severity [...] to COVID vaccine 2Admin Note: VIS GIVEN [id number] 3Admin Note: VIS GIVEN 2008- 4Admin Note: vis 5Admin Note: vis 02/06/08 Medications Abilify 10 mg oral tablet 10 mg, 1, tablet, By Mouth, Daily, # 90 tablet, Refills 3, Tot. Refills 3, Maintenance, 07/07/21 8:56:00 EDT, Route to Pharmacy Electronically, [facility] [id number], Partialfill upon patient request if the prescription [...] EDT, Route to Pharmacy Electronically, [facility] [id number], Partial fill upon patient request if the prescri... Start Date: 07/07/21 Status: Ordered Comfort EZ Pen [place] 31 gauge x 5/16 USE TO inject insulin 4 (FOUR) TIMES DAILY Start Date: 07/03/21 Status: Ordered Coreg 6.25 mg oral tablet 6.25 mg, 1, tablet, By Mouth, 2 times a day, # 180 tablet, Refills 3, Tot. Refills 3, Maintenance, 07/07/21 8:56:00 EDT, Route to Pharmacy Electronically, [facility] [id number], Partial fill upon patient request if the prescri... Start Date: 07/07/21 Status: Ordered Daily Multiple Vitamins oral tablet 1 tablet, By Mouth, Daily, # 90 tablet, 3 Refills, Maintenance, 07/07/21 8:56:00 EDT, Tablet, [facility] [id number], Partial fill upon patient request if the prescription is for a schedule II opioid drug., 1 tablet By Mouth Da... Start Date: 07/07/21 Status: Ordered divalproex sodium 250 mg oral enteric coated tablet 1 tablet = 250 mg, By Mouth, Daily in AM, # 90 tablet, 3 Refills, Maintenance, 07/07/21 8:56:00 EDT, Tablet, [facility] [id number], Partial fill upon patient request if the prescription is for a schedule II opioid drug., 167,... Start Date: 07/07/21 Status: Ordered divalproex sodium 500 mg oral enteric coated tablet 1 tablet = 500 mg, By Mouth, Daily at bedtime, # 90 tablet, 3 Refills, Maintenance, 07/07/21 8:56:00 EDT, Tablet, [facility] [id number], Partial fill upon patient request if the prescription is for a schedule II opioid drug.,... Start Date: 07/07/21 Status: Ordered Eucerin Unscented topical lotion See Instructions, Apply daily as directed to dry skin. 16 oz, # 1 each, 3 Refills, Maintenance, 07/07/21 9:02:00 EDT, [facility] [id number], Partial fill upon patient requestif the prescription [...] EDT, Route to Pharmacy Electronically, [facility] [id number], Partial fill upon patient request if the p... Start Date: 07/07/21 Status: Ordered gabapentin 100 mg oral capsule 200 mg, 2, capsule, By Mouth, Daily at bedtime, # 180 capsule, Refills 3, Tot. Refills 3, Maintenance, 07/07/21 8:56:00 EDT, Route to Pharmacy Electronically, [facility] [id number], Partial fill upon patient request if the pre... Start Date: 07/07/21 Status: Ordered guaiFENesin 100 mg/5 mL oral liquid 5 mL = 100 mg, By Mouth, Every 4 hours, PRN for cough, # 300 mL, 0 Refills, Acute 07/07/22 9:05:00 EDT, 07/07/21 9:02:00 EDT, Liquid, [facility] [id number], Partial fill uponpatient request if the prescription [...] a day, # 581 mL, 3 Refills, [facility], , TAKE 30mls BY MOUTH 2 (two) times a day, 167, cm, 07/07/21 8:39:00 EDT, Height, 95.6, kg, 06/29/21 18:39:00 EDT, Dry Weight Start Date: 08/10/21 Status: Ordered Lantus Solostar Pen 100 units/mL subcutaneous solution = 16 units, Subcutaneous Infusion, Daily, # 15 mL, 5 Refills, Maintenance, 09/11/21 17:25:00 EDT, [facility] [id number], Partial fill upon patient request if the prescriptionis for a schedule II opioid drug., 167, cm, ... Start Date: 09/11/21 Status: Ordered loratadine 10 mg oral tablet 10 mg, 1, tablet, By Mouth, Daily, # 90 tablet, Refills 3, Tot. Refills 3, Maintenance, 07/07/21 8:56:00 EDT, Route to Pharmacy Electronically, [facility] [id number], Partialfill upon patient request if the prescription is fo... Start Date: 07/07/21 Status: Ordered magnesium oxide 400 mg oral tablet 1 tablet = 400 mg, By Mouth, 2 times a day, # 180 tablet, 3 Refills, Maintenance, 07/07/21 8:56:00 EDT, Tablet, [facility] [id number], Partial fill upon patient request if the prescription is for a schedule II opioid drug., 16... Start Date: 07/07/21 Status: Ordered melatonin 3 mg oral tablet 1 tablet = 3 mg, By Mouth, Daily at bedtime, PRN Insomnia, # 90 tablet, 3 Refills, Maintenance, 07/07/21 8:56:00 EDT, Tablet, [facility] [id number], Partial fill upon patientrequest if the prescription is for a schedule II op... Start Date: 07/07/21 Status: Ordered nicotine 2 mg oral transmucosal lozenge 1 lozenge = 2 mg, By Mouth, Every hour, PRN Other, Nicotine Withdrawal Symptoms (not to exceed 20 lozenges per day), # 72 lozenge, 3 Refills, Maintenance, 07/07/21 8:56:00 EDT, L[facility], [place], [place] - [id number], Partial fill upon... Start Date: 07/07/21 Status: Ordered pancrelipase 10,000 units-32,000 units-42,000 units oral delayed release capsule 1 capsule, By Mouth, 3 times a day, with each meal and snack, # 270 capsule, 3 Refills, Maintenance, 07/07/21 8:56:00 EDT, CR Capsule, [place], [place] - [id number], Partial fill upon patient request if the [...] Weight Start Date: 07/07/21 Status: Ordered Pen [place], 31 G x 8 mm BD Ultra [...] 3 Refills, Maintenance, 07/07/21 8:56:00 EDT, Tablet, 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
--- OUTSIDE RECORDS SUMMARY | 2023-02-09 22:46 | XMS_ITS | Continuity of Care Document ---
Author Name Unknown Organization [facility] Address [address] [place] [address]- Care Team Providers Care Supervisor [employer] Name Role Phone Jaki Bishop MD Primary Care Physician [facility] 03/30/22 - 04/29/[address] [address]- Allergies, Adverse Reactions, Alerts Substance Reaction Severity [...] to COVID vaccine 2Admin Note: VIS GIVEN [id number] 3Admin Note: VIS GIVEN 2008- 4Admin Note: [...] EST, Route to Pharmacy Electronically, [facility] [id number], Partial fill upon patient request if the prescr... Start Date: 04/29/22 Stop Date: 08/27/22 Status: Ordered cloNIDine 0.1 mg oral tablet 0.1 mg, 1, tablet, By Mouth, Daily, # 30 tablet, Refills 3, Tot. Refills 3, Maintenance, 04/29/22 14:29:00 EST, Route to Pharmacy Electronically, [facility] [id number], Partial fill upon patient request if the prescription is... Start Date: 04/29/22 Stop Date: 08/27/22 Status: Ordered Coreg 6.25 mg oral tablet 6.25 mg, 1, tablet, By Mouth, 2 times a day, # 60 tablet, Refills 3, Tot. Refills 3, Maintenance, 04/29/22 14:29:00 EST, Route to Pharmacy Electronically, [facility] [id number], Partial fill upon patient request if the prescri... Start Date: 04/29/22 Stop Date: 08/27/22 Status: Ordered Creon 12,000 units oral delayed release capsule 1 capsule, By Mouth, 3 times a day, # 90 capsule, 3 Refills, Maintenance, 04/29/22 14:37:00 EST, ECCapsule, [facility] [id number], Partial fill upon patient request if the prescription is for a schedule II opioid drug., 167,... Start Date: 04/29/22 Status: Ordered diphenhydrAMINE 25 mg oral tablet 1 tablet = 25 mg, By Mouth, 3 times a day, for 30 days, PRN Agitation, # 90 tablet, 1 Refills, Acute 06/28/22 15:55:00 EDT, 04/29/22 15:55:00 EST, Tablet, [facility] [id number], Partial fill upon patient request if the prescri... Start Date: 04/29/22 Stop Date: 06/28/22 Status: Ordered divalproex sodium 500 mg oral enteric coated tablet 1 tablet = 500 mg, By Mouth, 2 times a day, # 60 tablet, 3 Refills, Maintenance, 04/29/22 14:33:00 EST, Tablet, [facility] [id number], Partial fill upon patient request if the prescription is for a schedule II opioid drug., 16... Start Date: 04/29/22 Stop Date: 08/27/22 Status: Ordered folic acid 1 mg oral tablet 1 mg, 1, tablet, By Mouth, Daily, # 30 tablet, Refills 1, Tot. Refills 1, Maintenance, 04/29/22 14:34:00 EST, Route to Pharmacy Electronically, [facility] [id number], Partialfill upon patient request if the prescription [...] 0 Refills, Maintenance, 04/08/22 16:16:00 EST, Liquid, [facility] [place], [place] - [id number], Partial fill upon patient request if the [...] 2 Refills, Maintenance, 04/29/22 14:34:00 EST, Solution, [facility] [id number], Partial fill upon patient request if the prescription is for a schedule II opioid drug.,... Start Date: 04/29/22 Status: Ordered multivitamin Multiple Vitamins oral tablet 1 tablet, By Mouth, Daily, # 90 tablet, 1 Refills, Maintenance, 04/02/22 16:44:00 EST, Tablet, [facility] [id number], Partial fill upon patient request if the [...] EST, Route to Pharmacy Electronically, [facility] [id number], Partial fill upon patient request if the prescription... Start Date: 04/29/22 Stop Date: 08/27/22 Status: Ordered risperiDONE 3 mg oral tablet 3 mg, 1, tablet, By Mouth, Daily at bedtime, # 30 tablet, Refills 3, Tot. Refills 3, Maintenance, 04/29/22 14:39:00 EST, Route to Pharmacy Electronically, [facility] [id number], Partial fill upon patient request if the prescri... Start Date: 04/29/22 Status: Ordered thiamine 100 mg oral tablet 100 mg, 1, tablet, By Mouth, Daily, for 30 days, # 30 tablet, Refills 3, Tot. Refills 3, Acute 08/27/22 14:40:00 EDT, 04/29/22 14:40:00 EST, Route to Pharmacy Electronically, [place], [place] - [id number], Partial fill upon patient re... Start Date: 04/29/22 Stop Date: 08/27/22 Status: Ordered tiotropium 2.5 mcg/inh inhalation aerosol 2 puffs, Inhalation, Daily, # 1 each, 0 Refills, Maintenance, 03/25/22 12:09:00 EST, Inhaler, [facility] 3, Partial fill upon patient request [...] Care Team Personnel Name: Lawrence Hendrix Position: [facility] RN Supv Member Role: Primary Care Nurse Name: Rufino Lloyd RN Position: [facility] RN Member Role: Primary Care Nurse Name: Cristina Carpenter RN Position: [facility] RN Member Role: Primary Care Nurse Name: Rosette Noriega RN Position: [facility] SN RN Member Role: Primary Care Nurse Name: Mary Hidalgo RN Position: [facility] PCO RN Member Role: Primary Care Nurse Name: Sissy Duran RN Position: [facility] AMB Nurse Member Role: Primary Care Nurse Name: Rohit Zavaleta RN Position: [facility] RN Member Role: Primary Care Nurse Name: Erlinda Hartman NP Position: [facility] Associate Professional Member Role: Primary Care Nurse Address: Address: [address] [place] [address] Name: Jong Suazo RN Position: [facility] RN Supv Member Role: Primary Care Nurse Name: Shante Solis RN Position: [facility] RN Member Role: Primary Care Nurse Name: Joshua Prakash RN Position: [facility] RN Member Role: Primary Care Nurse Name: Bettie Vanegas RN Position: [facility] RN Member Role: Primary Care Nurse Name: Jay Marroquin RN Position: [facility] RN Member Role: Primary Care Nurse Name: Adrianna Church RN Position: [facility] RN Member Role: Primary Care Nurse Name: Sue Purdy RN Position: [facility] RN Member Role: Primary Care Nurse Name: Hector Perez RN Position: [facility] RN Member Role: Primary Care Nurse Name: Aleena Vizcaino RN Position: [facility] RN Member Role: Primary Care Nurse Name: Kacey Wilhelm RN Position: [facility] RN Member Role: Primary Care Nurse Name: Monalisa Barker Position: [facility] RN Member Role: Primary Care Nurse Name: Leslie Malloy RN Position: [facility] RN Member Role: Primary Care Nurse Name: Yesenia Hu LPN Position: [facility] RN Member Role: Primary Care Nurse Name: Joaquina Herrera RN Position: [facility] RN Member Role: Primary Care Nurse Name: Diego Bell RN Position: [facility] RN Member Role: Primary Care Nurse Name: Ese Grey Position: [facility] RN Member Role: Primary Care Nurse Name: Chela Najera RN Position: [facility] ED RN W/OE and Tasks Member Role: Primary Care Nurse Name: Tootie Gonzalez RN Position: [facility] RN Member Role: Primary Care Nurse Name: Nancy Monte RN Position: [facility] RN Member Role: Primary Care Nurse Name: Marilee Starkey Position: [facility] RN Member Role: Primary Care Nurse Name: Silvina Dodd RN Position: [facility] RN Member Role: Primary Care Nurse Name: Flaco Clifford DO Position: [facility] Renal MD Member Role: Lifetime Consulting Physician Address: Address: [address] [place] [address] [facility] [address] Name: Marilee Richardson RN Position: [facility] RN Member Role: Primary Care Nurse Name: Rufino Johnson RN Position: [facility] RN Member Role: Primary Care Nurse Name: Jovita Camargo RN Position: [facility] RN Member Role: Primary Care Nurse Name: Ju Zhu Position: [facility] RN Member Role: Primary Care Nurse Name: Ester Palomares Position: [facility] RN Member Role: Primary Care Nurse Name: Emma Colbert RN Position: [facility] RN Supv Member Role: Primary Care Nurse Name: Hallie Gambino RN Position: [facility] Onco RN Member Role: Primary Care Nurse Name: Maya Ambriz RN Position: [facility] RN Member Role: Primary Care Nurse Name: Bhavna Rendon LPN Position: [facility] RN Member Role: Primary Care Nurse Name: Luis Burton RN Position: [facility] RN Member Role: Primary Care Nurse Name: Jaki Bishop MD Position: [facility] Primary Care Physician Member Role: PCP Address: Address: [address] [place] [address] Name: Lucian Krause RN Position: [facility] RN Member Role: Primary Care Nurse Name: Leslie Ward RN Position: [facility] RN Member Role: Primary Care Nurse Name: Jacki Gomes RN Position: [facility] RN Member Role: Primary Care Nurse Name: Ximena Saab RN Position: [facility] RN Member Role: Primary Care Nurse Name: Ivette Shankar RN Position: [facility] RN Supv Member Role: Primary Care Nurse Name: Laura Mary RN Position: [facility] SN RN Member Role: Primary Care Nurse Name: Octavio Box RN Position: [facility] RN Member Role: Primary Care Nurse Name: Nazia Tapia RN Position: [facility] RN Member Role: Primary Care Nurse Name: Caren Hernandez RN Position: [facility] RN Supv Member Role: Primary Care Nurse Name: Veronica Queen RN Position: [facility] RN Member Role: Primary Care Nurse Name: Perri Bryant RN Position: [facility] RN Member Role: Primary Care Nurse Name: Alba Toro RN Position: [facility] RN Member Role: Primary Care Nurse Name: Nely Wong RN Position: [facility] RN Member Role: Primary Care Nurse Name: Erica Brandon RN Position: [facility] RN Member Role: Primary Care Nurse Name: Adrianna Gonzalez RN Position: [facility] RN Member Role: Primary Care Nurse Name: Annmarie Feldman RN Position: [facility] PCO w/OE and EZ Script Member Role: Primary Care Nurse Name: Chinyere Espinoza RN Position: [facility] RN Member Role: Primary Care Nurse Name: Teresita Diallo RN Position: [facility] RN Member Role: Primary Care Nurse Name: Tennille Mcgarry RN Position: [facility] Hospital Cloth Bin Packer Member Role: Primary Care Nurse Name: Vicyk Salazar RN Position: [facility] RN Member Role: Primary Care Nurse Name: Spencer Jameson RN Position: [facility] RN Member Role: Primary Care Nurse Name: Jalen Mullins Position: [facility] RN Member Role: Primary Care Nurse Care Team Related Persons Name: MARYANNE KELLER Address: home [address] [place] [address] Name: MARYANNE KELLER Address: [address] [address] Name: MARYANNE KELLER JR Address: home [address] [place] [address] Name: GEORGIA KELLER Address: [place] [address] Name: BALDEV POLANCO Address: [place] [address]
--- OUTSIDE RECORDS SUMMARY | 2023-02-09 22:46 | XMS_ITS | Continuity of Care Document ---
Author Name Unknown Organization [facility] Address [address] [place] [address]- Care Team Providers Care Internal Specialist Name Role Phone Jaki Bishop MD Primary Care Physician [phone] [facility]counter [facility] Date[facility] 04/26/22 - 05/26/[address] [address]- Allergies, Adverse Reactions, Alerts Substance Reaction Severity [...] to COVID vaccine 2Admin Note: VIS GIVEN [id number] 3Admin Note: VIS GIVEN 2008- 4Admin Note: [...] 04/29/22 14:29:00 EST, Route to Pharmacy Electronically, [facility] [id number], Partial fill upon patient request if the prescr... Start Date: 04/29/22 Stop Date: 08/27/22 Status: Ordered cloNIDine 0.1 mg oral tablet 0.1 mg, 1, tablet, By Mouth, Daily, # 30 tablet, Refills 3, Tot. Refills 3, Maintenance, 04/29/22 14:29:00 EST, Route to Pharmacy Electronically, [facility] [id number], Partial fill upon patient request if the prescription is... Start Date: 04/29/22 Stop Date: 08/27/22 Status: Ordered Coreg 6.25 mg oral tablet 6.25 mg, 1, tablet, By Mouth, 2 times a day, # 60 tablet, Refills 3, Tot. Refills 3, Maintenance, 04/29/22 14:29:00 EST, Route to Pharmacy Electronically, [facility] [id number], Partial fill upon patient request if the prescri... Start Date: 04/29/22 Stop Date: 08/27/22 Status: Ordered Creon 12,000 units oral delayed release capsule 1 capsule, By Mouth, 3 times a day, # 90 capsule, 3 Refills, Maintenance, 04/29/22 14:37:00 EST, ECCapsule, [facility] [id number], Partial fill upon patient request if the prescription is for a schedule II opioid drug., 167,... Start Date: 04/29/22 Status: Ordered diphenhydrAMINE 25 mg oral tablet 1 tablet = 25 mg, By Mouth, 3 times a day, for 30 days, PRN Agitation, # 90 tablet, 1 Refills, Acute 06/28/22 15:55:00 EDT, 04/29/22 15:55:00 EST, Tablet, [facility] [id number], Partial fill upon patient request if the prescri... Start Date: 04/29/22 Stop Date: 06/28/22 Status: Ordered divalproex sodium 500 mg oral enteric coated tablet 1 tablet = 500 mg, By Mouth, 2 times a day, # 60 tablet, 3 Refills, Maintenance, 04/29/22 14:33:00 EST, Tablet, [facility] [id number], Partial fill upon patient request if the prescription is for a schedule II opioid drug., 16... Start Date: 04/29/22 Stop Date: 08/27/22 Status: Ordered folic acid 1 mg oral tablet 1 mg, 1, tablet, By Mouth, Daily, # 30 tablet, Refills 1, Tot. Refills 1, Maintenance, 04/29/22 14:34:00 EST, Route to Pharmacy Electronically, [facility] [id number], Partialfill upon patient request if the prescription [...] 0 Refills, Maintenance, 04/08/22 16:16:00 EST, Liquid, [facility] [place], [place] - [id number], Partial fill upon patient request if the [...] 2 Refills, Maintenance, 04/29/22 14:34:00 EST, Solution, [facility] [id number], Partial fill upon patient request if the prescription is for a schedule II opioid drug.,... Start Date: 04/29/22 Status: Ordered multivitamin Multiple Vitamins oral tablet 1 tablet, By Mouth, Daily, # 90 tablet, 1 Refills, Maintenance, 04/02/22 16:44:00 EST, Tablet, [facility] [id number], Partial fill upon patient request if the [...] 04/29/22 14:39:00 EST, Route to Pharmacy Electronically, [facility] [id number], Partial fill upon patient request if the prescription... Start Date: 04/29/22 Stop Date: 08/27/22 Status: Ordered risperiDONE 3 mg oral tablet 3 mg, 1, tablet, By Mouth, Daily at bedtime, # 30 tablet, Refills 3, Tot. Refills 3, Maintenance, 04/29/22 14:39:00 EST, Route to Pharmacy Electronically, [facility] [id number], Partial fill upon patient request if the prescri... Start Date: 04/29/22 Status: Ordered thiamine 100 mg oral tablet 100 mg, 1, tablet, By Mouth, Daily, for 30 days, # 30 tablet, Refills 3, Tot. Refills 3, Acute 08/27/22 14:40:00 EDT, 04/29/22 14:40:00 EST, Route to Pharmacy Electronically, [place], [place] - [id number], Partial fill upon patient re... Start Date: 04/29/22 Stop Date: 08/27/22 Status: Ordered tiotropium 2.5 mcg/inh inhalation aerosol 2 puffs, Inhalation, Daily, # 1 each, 0 Refills, Maintenance, 03/25/22 12:09:00 EST, Inhaler, [facility] 3, Partial fill upon patient request [...] Member Role: Primary Care Nurse Address: Address: [address] [place] [address] Name: Jong Suazo RN Position: [facility] [...] Care Nurse Name: Monalisa Barker LPN Position: [facility] [...] Member Role: Lifetime Consulting Physician Address: Address: [address] [place] [address] [facility] [place], [place] [address] Name: Marilee Richardson RN Position: [facility] [...] Care Physician Member Role: PCP Address: Address: [address] [place] [address]- Name: Lucian Krause RN Position: [facility] [...] [facility] Fitter Welder Member Role: Primary Care Nurse Name: Vicky [...] Persons Name: ARIANNA MARYANNE Address: home [address] [place] [address] Name: MARYANNE KELLER Address: [address] [address] Name: MARYANNE KELLER JR Address: home [address] [place] [address] Name: GEORGIA KELLER Address: [place] [address] Name: BALDEV POLANCO Address: [place] [address]
--- OUTSIDE RECORDS SUMMARY | 2023-02-09 22:46 | XMS_ITS | Continuity of Care Document ---
Author Name Unknown Organization [facility] Address [address] [place] [address]- Care Team Providers Care Stone Decorator Name Role Phone Jaki Bishop MD Primary Care Physician [facility] 04/29/21 - 05/29/[address] [address]- Allergies, Adverse Reactions, Alerts Substance Reaction Severity [...] to COVID vaccine 2Admin Note: VIS GIVEN [id number] 3Admin Note: VIS GIVEN 2008- 4Admin Note: [...] MOUTH DAILY, # 90 tablet, 1 Refills, [facility], 150, TAKE ONE TABLET BY MOUTH [...] Replace Required Details, Route to Pharmacy Electronically, [facility], 167.64, cm, 03/23/21 14:44:00 EST, Height, [...] 3 Refills, Maintenance, 04/24/21 13:09:00 EST, Tablet, [place], [place] - [id number], Partial fill upon patient request if the [...] 2 Refills, Maintenance,05/08/21 12:22:00 EST, CR Capsule, [place], [place] - [id number], Partial fill upon patient request if the [...] Active H/O tubal ligation(Confirmed) Active 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
--- OUTSIDE RECORDS SUMMARY | 2023-02-09 22:46 | XMS_ITS | Continuity of Care Document ---
Author Name Unknown Organization [facility] Address [address] [place] [address]- Care Team Providers Care Professor Of Art Name Role Phone Jaki Bishop MD Primary Care Physician [facility]): 05/05/20 - 06/04/[address] [address]- Allergies, Adverse Reactions, Alerts Substance Reaction Severity [...] Given Permanently Refused 1Admin Note: VIS GIVEN [id number] 2Admin Note: VIS GIVEN 2008-12 3Admin Note: vis 4Admin Note: vis 02/06/08 Medications acetaminophen 325 mg oral tablet 1, tablet, By Mouth, 4 times a day, PRN, not to exceed 4 TABLETS PER DAY, # 60 tablet, Refills 0, Tot. Refills 0, Acute, NEEDED, 05/28/20 13:40:00 EST, Route to Pharmacy Electronically, [facility], 168, cm, 04/16/20 8:30:00 EST, Height, 98.7,... [...] Maintenance, 04/16/20 11:06:00 EST, Tablet, [facility] [id number], Partial fill upon patient request if the prescription is for a schedule II opioid drug., 168,... Start Date: 04/16/20 Status: Ordered clozapine 50 mg oral tablet 3 tablet = 150 mg, By Mouth, Daily at bedtime, # 90 tablet, 0 Refills, Maintenance, 04/16/20 11:06:00 EST, Tablet, [facility] [id number], Partial fill upon patient request ifthe prescription is for a schedule II opioid drug.,... Start Date: 04/16/20 Status: Ordered Coreg 12.5 mg oral tablet 12.5 mg, 1, tablet, By Mouth, 2 times a day, # 180 tablet, Refills 1, Tot. Refills 1, Maintenance, 05/26/20 14:41:00 EST, Route to Pharmacy Electronically, [facility], [place] - [id number], Partial fill upon patient request if the prescr... Start Date: 05/26/20 Stop Date: 11/22/20 Status: Ordered docusate sodium 100 mg oral capsule = 100 mg, By Mouth, 2 times a day, PRN Constipation., # 60 capsule, 3 Refills, Maintenance, 02/29/20 15:13:00 EST, Capsule, [facility] [id number], Partial fill upon patient request if the [...] Maintenance,05/28/20 13:46:00 EST, Route to Pharmacy Electronically, [facility] [id number], Partial fill upon patient request if the [...] mL, 1 Refills, Maintenance, 04/16/20 11:07:00 EST, [facility] [place], [place] - [id number],... Start Date: 04/16/20 Status: Ordered lactulose 10 gm/15 ml oral syrup 30 mL, By Mouth, 2 times a day, # 581 mL, 0 Refills, Acute, 03/25/20 11:49:00 EST, [facility],10, TAKE 30 ML BY [...] Replace Required Details, Route to Pharmacy Electronically, [facility], [facility] [id number], 168, cm, 04/16/20... Start Date: 05/01/20 Status: [...] 1 Refills, Maintenance, 05/26/20 13:28:00 EST, Tablet, [facility], [facility] [id number], 1 tablet By Mouth Daily, 168, cm, [...] Maintenance, 04/16/20 11:08:00 EST, Gum, [facility] [id number], Partial fill upon patient request if the [...] Maintenance, 03/05/20 16:50:00 EST, Tablet, [facility] [id number], this is an increased, 1 tablet By [...] Maintenance, 04/16/20 11:09:00 EST, Tablet, [facility] [id number], Partial fill upon patient request if the prescription is for a schedule II opioid drug., 168, cm, 01... Start Date: 04/16/20 Stop Date: 04/11/21 Status: Ordered Zenpep 10,000 units-32,000 units-42,000 units oral delayed release capsule 1 capsule, By Mouth, 3 times a day, # 90 capsule, 0 Refills, Maintenance, 04/16/20 11:09:00 EST, [facility] [id number], 1 capsule By Mouth 3 times a day, 168, cm, 04/16/20 8:30:00 EST, Height, 98.7, kg, 04/11/20 2:10:00 FERNANDA D... 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
[2023-02-09 22:47] VITALS: BP 149/99; PULSE 84; RESP 16; TEMP 36.4; O2SAT 94
--- OUTSIDE RECORDS SUMMARY | 2023-02-09 22:47 | XMS_ITS | Continuity of Care Document ---
Author Name Unknown Organization [facility] Address [address] [place] [address]- Care Team Providers Care Public Health Advisor Name Role Phone Dario HAYDEN, Jaki Primary Care Physician [phone] Encounter [facility] Date(s): 07/20/22 - 08/19/[address] [address]- Allergies, Adverse Reactions, Alerts Substance Reaction Severity [...] to COVID vaccine 2Admin Note: VIS GIVEN [id number] 3Admin Note: VIS GIVEN 2008-12 4Admin Note: vis 5Admin Note: vis 02/06/08 Medications albuterol 90 mcg/inh inhalation powder 2 puffs, Inhalation, Every 4 hours, PRN as needed, PRN Wheezing, # 1 each, 1 Refills, Maintenance, 06/28/22 14:49:00 EDT, Powder, [facility] [id number], Partial fill upon patient request if the [...] 07/16/22 16:04:00 EDT, Route to Pharmacy Electronically, [facility] [id number], Partialfill upon patient request if the prescription is fo... Start Date: 07/16/22 Status: Ordered benztropine 1 mg oral tablet 0.5 mg, 0.5, tablet, By Mouth, 2 times a day, # 30 tablet, Refills 3, Tot. Refills 3, Maintenance, 04/29/22 14:29:00 EST, Route to Pharmacy Electronically, [facility] [id number], Partial fill upon patient request if the [...] Replace Required Details, Route to Pharmacy Electronically, [facility], 160, cm, 07/26/22 12:51:... Start Date: 07/30/22 Status: Ordered cloNIDine 0.1 mg oral tablet 0.1 mg, 1, tablet, By Mouth, Daily, # 30 tablet, Refills 3, Tot. Refills 3, Maintenance, 04/29/22 14:29:00 EST, Route to Pharmacy Electronically, [place], [place] - [id number], Partial fill upon patient request if the prescription is... Start Date: 04/29/22 Stop Date: 08/27/22 Status: Ordered Creon 12,000 units oral delayed release capsule 1 capsule, By Mouth, 3 times a day, # 90 capsule, 3 Refills, Maintenance, 04/29/22 14:37:00 EST, ECCapsule, [place], [place] - [id number], Partial fill upon patient request if the [...] 06/01/22 16:34:00 EDT, Route to Pharmacy Electronically, [facility], 167, cm, 03/25/22 3:14:00 EST, Height, [...] mL, 1 Refills, Maintenance, 07/22/22 15:51:00 EDT, [facility], 15, TAKE 30 ML BY MOUTH two (2) times a day, 160, cm, 07/21/22 10:57:00 EDT, Height, 89.2, kg, 07/21/22 3:29:00 EDT, Dry Weight Start Date: 07/22/22 Status: Ordered Lantus Solostar Pen 100 units/mL subcutaneous solution = 6 units, Subcutaneous Injection, Daily in AM, # 10 mL, 2 Refills, Maintenance, 04/29/22 14:34:00 EST, Solution, [facility] [place], [place] - [id number], Partial fill upon patient request if the prescription is for a schedule II opioid drug.,... Start Date: 04/29/22 Status: Ordered multivitamin Multiple Vitamins oral tablet 1 tablet, By Mouth, Daily, # 90 tablet, 1 Refills, Maintenance, 04/02/22 16:44:00 EST, Tablet, [facility] [place] - [id number], Partial fill upon patient request if the [...] Pharmacy Electronically, [facility] [place] - [id number], Partial fill upon patient request if the prescription... Start Date: 04/29/22 Stop Date: 08/27/22 Status: Ordered risperiDONE 3 mg oral tablet 3 mg, 1, tablet, By Mouth, Daily at bedtime, # 30 tablet, Refills 3, Tot. Refills 3, Maintenance, 04/29/22 14:39:00 EST, Route to Pharmacy Electronically, [facility] [place] - [id number], Partial fill upon patient request if the prescri... Start Date: 04/29/22 Status: Ordered thiamine 100 mg oral tablet 100 mg, 1, tablet, By Mouth, Daily, for 30 days, # 30 tablet, Refills 3, Tot. Refills 3, Acute 08/27/22 14:40:00 EDT, 04/29/22 14:40:00 EST, Route to Pharmacy Electronically, [facility] [place] - [id number], Partial fill upon patient re... Start Date: 04/29/22 Stop Date: 08/27/22 Status: Ordered tiotropium 2.5 mcg/inh inhalation aerosol 2 puffs, Inhalation, Daily, # 1 each, 5 Refills, Maintenance, 06/28/22 14:48:00 EDT, Inhaler, [facility] [place] - [id number], Partial fill upon patient request if the [...] Team Personnel Name: Lawrence Hendrix Position: [facility] RN Supv Member Role: Primary Care Nurse Name: Rufino Lloyd RN Position: [facility] RN Member Role: Primary Care Nurse Name: Cristina Carpenter RN Position: [facility] RN Member Role: Primary Care Nurse Name: Rosette Noriega RN Position: [facility] RN Member Role: Primary Care Nurse Name: Mary Hidalgo RN Position: [facility] AMB Nurse Member Role: Primary Care Nurse Name: Sissy Duran RN Position: [facility] AMB Nurse Member Role: Primary Care Nurse Name: Rohit Zavaleta RN Position: [facility] RN Member Role: Primary Care Nurse Name: Erlinda Hartman NP Position: [facility] Associate Professional Member Role: Primary Care Nurse Address: Address: [address] [place] [address]- Name: Shante Solis RN Position: [facility] RN Member Role: Primary Care Nurse Name: Joshua Prakash RN Position: [facility] RN Member Role: Primary Care Nurse Name: Bettie Vanegas RN Position: [facility] SN RN Member Role: Primary Care Nurse Name: Jay Marroquin RN Position: [facility] RN Member Role: Primary Care Nurse Name: Adrianna Church RN Position: [facility] RN Member Role: Primary Care Nurse Name: Sue Purdy RN Position: [facility] RN Member Role: Primary Care Nurse Name: Hector Perez RN Position: [facility] RN Member Role: Primary Care Nurse Name: Aleena Vizcaino RN Position: [facility] RN Member Role: Primary Care Nurse Name: Kacey Wilhelm RN Position: [facility] RN Member Role: Primary Care Nurse Name: Leslie Malloy RN Position: [facility] RN Member Role: Primary Care Nurse Name: Morena Easton RN Position: [facility] RN Member Role: Primary Care Nurse Name: Yesenia Hu LPN Position: [facility] RN Member Role: Primary Care Nurse Name: Joaquina Herrera RN Position: [facility] RN Member Role: Primary Care Nurse Name: Diego Bell RN Position: [facility] RN Member Role: Primary Care Nurse Name: Ese Grey Position: [facility] RN Member Role: Primary Care Nurse Name: Chela Najera RN Position: [facility] RN Member Role: Primary Care Nurse Name: Tootie Gonzalez RN Position: [facility] RN Member Role: Primary Care Nurse Name: Nancy Monte RN Position: [facility] RN Member Role: Primary Care Nurse Name: Marilee Starkey Position: [facility] RN Member Role: Primary Care Nurse Name: Silvina Dodd RN Position: [facility] RN Member Role: Primary Care Nurse Name: Flaco Clifford DO Position: [facility] Renal MD Member Role: Lifetime Consulting Physician Address: Address: [address] [place] [address] [address] [facility] [place] [address]- Name: Marilee Richardson RN Position: [facility] RN Member Role: Primary Care Nurse Name: Rufino Johnson RN Position: [facility] RN Member Role: Primary Care Nurse Name: Jovita Camargo RN Position: [facility] RN Member Role: Primary Care Nurse Name: Ju Zhu Position: [facility] RN Member Role: Primary Care Nurse Name: Ester Palomares Position: [facility] RN Member Role: Primary Care Nurse Name: Emma Colbert RN Position: [facility] RN Supv Member Role: Primary Care Nurse Name: Hallie Gambino RN Position: [facility] Onco RN Member Role: Primary Care Nurse Name: Maya Ambriz RN Position: [facility] RN Member Role: Primary Care Nurse Name: Bhavna Rendon LPN Position: [facility] RN Member Role: Primary Care Nurse Name: Luis Burton RN Position: [facility] RN Member Role: Primary Care Nurse Name: Jaki Bishop MD Position: [facility] Physician - Primary Care Member Role: PCP Address: Address: [address] [place] [address]- Name: Lucian Krause RN Position: [facility] RN Member Role: Primary Care Nurse Name: Isaiah Combs RN Position: [facility] RN Member Role: Primary Care Nurse Name: Leslie Ward RN Position: [facility] RN Member Role: Primary Care Nurse Name: Jacki Gomes RN Position: [facility] RN Member Role: Primary Care Nurse Name: Ximena Saab RN Position: [facility] RN Member Role: Primary Care Nurse Name: Mar Brothers RN Position: [facility] RN Member Role: Primary Care Nurse Name: Ivette Shankar RN Position: [facility] RN Supv Member Role: Primary Care Nurse Name: Laura Mary RN Position: [facility] SN RN Member Role: Primary Care Nurse Name: Mary Guillen RN Position: [facility] RN Member Role: Primary Care Nurse Name: Octavio Box RN Position: [facility] RN Member Role: Primary Care Nurse Name: Nazia Tapia RN Position: [facility] RN Member Role: Primary Care Nurse Name: Pat Jackson RN Position: [facility] RN Member Role: Primary Care Nurse Name: Caren Hernandez RN Position: [facility] RN Supv Member Role: Primary Care Nurse Name: Perri Bryant RN Position: [facility] RN Member Role: Primary Care Nurse Name: Alba Toro RN Position: [facility] RN Member Role: Primary Care Nurse Name: Nely Wong RN Position: [facility] RN Member Role: Primary Care Nurse Name: Erica Brandon RN Position: [facility] RN Member Role: Primary Care Nurse Name: Adrianna Gonzalez RN Position: [facility] RN Member Role: Primary Care Nurse Name: Annmarie Feldman RN Position: [facility] PCO w/OE and EZ Script Member Role: Primary Care Nurse Name: Chinyere Espinoza RN Position: [facility] RN Member Role: Primary Care Nurse Name: Teresita Diallo RN Position: [facility] RN Member Role: Primary Care Nurse Name: Tennille Mcgarry RN Position: [facility] Hospital Asset Management Lead Member Role: Primary Care Nurse Name: Vicky Salazar RN Position: [facility] RN Member Role: Primary Care Nurse Name: Spencer Jameson RN Position: [facility] RN Member Role: Primary Care Nurse Name: Jalen Mullins Position: [facility] RN Member Role: Primary Care Nurse Care Team Related Persons Name: MARYANNE KELLER Address: home [address] [place] [address] Name: MARYANNE KELLER Address: home [address] [place] [address] Name: MARYANNE KELLER Address: home [address] [place] [address] Name: GEORGIA KELLER Address: [place] [address] Name: BALDEV POLANCO Address: [place] [address]
--- OUTSIDE RECORDS SUMMARY | 2023-02-09 22:47 | XMS_ITS | Continuity of Care Document ---
Author Name Unknown Organization [facility] Address [address] [place] [address]- Care Team Providers Care Finish Painter Name Role Phone Dario HAYDEN, Jaki Primary Care Physician [facility]counter [facility] Date(s): 03/04/20 - 04/03/[address] [address]- Allergies, Adverse Reactions, Alerts Substance Reaction Severity [...] Given Permanently Refused 1Admin Note: VIS GIVEN [id number] 2Admin Note: VIS GIVEN 2008-12 3Admin Note: vis 4Admin Note: vis 02/06/08 Medications acetaminophen 325 mg oral tablet 1, tablet, By Mouth, 4 times a day, PRN, no MORE THAN 4 TABLETS PER DAY., # 60 tablet, Refills 1, Tot. Refills 1, Maintenance, NEEDED, 03/06/20 9:09:00 EST, Route to Pharmacy Electronically, [facility], [facility] [id number], 168, cm,... Start Date: 03/06/20 Status: Ordered [...] 03/05/20 16:49:00 EST, Route to Pharmacy Electronically, [facility] [id number], Partial fill upon patient request, 168, cm, 11/... Start Date: 03/05/20 Status: Ordered docusate sodium 100 mg oral capsule = 100 mg, By Mouth, 2 times a day, PRN Constipation., # 60 capsule, 3 Refills, Maintenance, 02/29/20 15:13:00 EST, Capsule, [facility] [id number], Partial fill upon patient request if the prescription is for a schedule II opio... Start Date: 02/29/20 Stop Date: 06/28/20 Status: Ordered gabapentin 100 mg oral capsule 200 mg, 2, capsule, By Mouth, 2 times a day, # 120 capsule, Refills 0, Tot. Refills 0, Maintenance,03/05/20 16:51:00 EST, Route to Pharmacy Electronically, [facility] [id number], Partial fill upon patient request if the presc... Start Date: 03/05/20 Status: Ordered Heating Pad Heating Pad, See [...] 16:52:00 EST, [facility] [id number],... Start Date: 03/05/20 Status: Ordered lactulose 10 gm/15 ml oral syrup 30 mL, By Mouth, 2 times a day, # 581 mL, 0 Refills, Acute, 03/25/20 11:49:00 EST, [facility],10, TAKE 30 ML BY MOUTH 2 (two) times a day, 168, cm, 02/10/20 5:58:00 EST, Height, 106.8, kg, 10/28/19 9:52:00 EDT, Dry Weight Start Date: 03/25/20 Status: Ordered Lantus Solostar Pen 100 units/mL [...] Replace Required Details, Route to Pharmacy Electronically, [facility], [facility] [id number], 168, cm, 12/17/19... Start Date: 02/01/20 Status: [...] 1 Refills, Maintenance, 08/07/19 14:23:00 EDT, Tablet, [facility] - -, 1 tablet By Mouth Daily, 166, [...] 11:57:00 EDT Start Date: 12/17/19 Status: Ordered Orthopedic Shoes Orthopedic Shoes, See Instructions, # 1 each, Refills 0, Tot. Refills 0, Maintenance, Please dispense 1 pair, Use daily, Dx: E11.65, I50.9, I27.20 Please fax to Zach , 04/02/20 16:54:00 EST, Supply Start Date: 04/02/20 Status: Ordered pantoprazole 40 mg oral delayed release tablet 1 tablet, By Mouth, Daily, FOR stomach acid., # 90 tablet, 0 Refills, Maintenance, 03/25/20 8:15:00EST, 168, cm, 02/10/20 5:58:00 EST, Height, 106.8, kg, 10/28/19 9:52:00 EDT, Dry Weight Start Date: 03/25/20 Status: Ordered recliner recliner, See Instructions, # 1 each, Refills 0, Tot. Refills 0, Maintenance, use daily, Dx: CHF I50.9 Please fax to Zach , 04/02/20 16:54:00 EST, Supply Start Date: 04/02/20 Status: Ordered sacubitril-valsartan 97 mg-103 mg oral tablet 1 tablet, By Mouth, 2 times a day, # 60 tablet, 5 Refills, Maintenance, 03/05/20 16:50:00 EST, Tablet, [place], [place] - [id number], this is an increased, 1 tablet By [...] 3 Refills, Maintenance, 03/05/20 16:51:00 EST, Tablet, [place], [place] - [id number], Partial fill upon patient request if the prescription is for a schedule II opioid drug., 168, cm, 11... Start Date: 03/05/20 Stop Date: 02/28/21 Status: Ordered Zenpep 10,000 units-32,000 units-42,000 units oral delayed release capsule 1 capsule, By Mouth, 3 times a day, # 90 capsule, 6 Refills, Maintenance, 03/06/20 9:09:00 EST, [facility] [id number], 1 capsule By Mouth 3 times a day, 168, cm, 02/10/20 5:58:00 EST, Height, 106.8, kg, 10/28/19 9:52:00 EDT, D... 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
--- OUTSIDE RECORDS SUMMARY | 2023-02-09 22:47 | XMS_ITS | Continuity of Care Document ---
Author Name Unknown Organization [facility] Address [address] [place] [address]- Care Team Providers Care Hematologist Name Role Phone Dario HAYDEN, Jaki Primary Care Physician [phone] Encounter [facility] [id number] Date(s): 03/05/20 - 04/04/[address] [address]- Attending Physician: Admtr, Ar8 Allergies, Adverse Reactions, [...] Given Permanently Refused 1Admin Note: VIS GIVEN [id number] 2Admin Note: VIS GIVEN 2009-10 3Admin Note: vis 4Admin Note: vis 02/06/08 Medications acetaminophen 325 mg oral tablet 1, tablet, By Mouth, 4 times a day, PRN, no MORE THAN 4 TABLETS PER DAY., # 60 tablet, Refills 1, Tot. Refills 1, Maintenance, NEEDED, 03/06/20 9:09:00 EST, Route to Pharmacy Electronically, [facility] [id number], 168, cm,... Start Date: 03/06/20 Status: Ordered [...] 03/05/20 16:49:00 EST, Route to Pharmacy Electronically, [facility] [id number], Partial fill upon patient request, 168, cm, 11/... Start Date: 03/05/20 Status: Ordered docusate sodium 100 mg oral capsule = 100 mg, By Mouth, 2 times a day, PRN Constipation., # 60 capsule, 3 Refills, Maintenance, 02/29/20 15:13:00 EST, Capsule, [place], [place] - [id number], Partial fill upon patient request if the prescription is for a schedule II opio... Start Date: 02/29/20 Stop Date: 06/28/20 Status: Ordered gabapentin 100 mg oral capsule 200 mg, 2, capsule, By Mouth, 2 times a day, # 120 capsule, Refills 0, Tot. Refills 0, Maintenance,03/05/20 16:51:00 EST, Route to Pharmacy Electronically, [facility] [id number], Partial fill [facility]... Start Date: 03/05/20 Status: Ordered Heating Pad [...] mL, 6 Refills, Maintenance, 03/05/20 16:52:00 EST, [facility] [id number],... Start Date: 03/05/20 Status: Ordered lactulose 10 gm/15 ml oral syrup 30 mL, By Mouth, 2 times a day, # 581 mL, 0 Refills, Acute, 03/25/20 11:49:00 EST, [facility],10, TAKE 30 ML BY MOUTH [...] Pharmacy Electronically, [facility] [id number], 168, cm, 12/17/19... Start Date: 02/01/20 Status: [...] 1 Refills, Maintenance, 08/07/19 14:23:00 EDT, Tablet, [facility], 1 tablet By Mouth Daily, 166, cm, [...] 5 Refills, Maintenance, 03/05/20 16:50:00 EST, Tablet, [facility] [id number], this is an increased, 1 tablet By [...] 3 Refills, Maintenance, 03/05/20 16:51:00 EST, Tablet, [facility] [id number], Partial fill upon patient request if the prescription is for a schedule II opioid drug., 168, cm, 11... Start Date: 03/05/20 Stop Date: 02/28/21 Status: Ordered Zenpep 10,000 units-32,000 units-42,000 units oral delayed release capsule 1 capsule, By Mouth, 3 times a day, # 90 capsule, 6 Refills, Maintenance, 03/06/20 9:09:00 EST, [facility] [id number], 1 capsule By Mouth 3 times a [...] Active H/O tubal ligation(Confirmed) Active BHN/BH CP Quality Control Specialist/Janet salvador [facility] [phone](Confirmed) Active History of cholecystectomy(Confirmed) Active Hypertension(Confirmed) Active [...]
--- OUTSIDE RECORDS SUMMARY | 2023-02-09 22:47 | XMS_ITS | Continuity of Care Document ---
Author Name Unknown Organization [facility] Address [address] [place] [address]- Care Team Providers Care Bagel Maker Name Role Phone Jaki Bishop MD Primary Care Physician [phone] [facility]counter [facility] Date(s): 10/14/22 - 11/13/[address] [id number] Allergies, Adverse Reactions, Alerts Substance Reaction Severity [...] to COVID vaccine 2Admin Note: VIS GIVEN [id number] 3Admin Note: VIS GIVEN 2008-10 4Admin Note: vis 5Admin Note: vis 02/06/08 Medications albuterol 90 mcg/inh inhalation powder 2 puffs, Inhalation, Every 4 hours, PRN as needed, PRN Wheezing, # 1 each, 1 Refills, Maintenance, 06/28/22 14:49:00 EDT, Powder, [facility], [place] - [id number], Partial fill upon patient request if the [...] 07/16/22 16:04:00 EDT, Route to Pharmacy Electronically, [facility] [id number], Partialfill upon patient request if the prescription is fo... Start Date: 07/16/22 Status: Ordered benztropine 1 mg oral tablet 0.5 mg, 0.5, tablet, By Mouth, 2 times a day, # 30 tablet, Refills 3, Tot. Refills 3, Maintenance, 09/17/22 1:51:00 EDT, Route to Pharmacy Electronically, [facility] [id number], Partial fill upon patient request if the [...] 10/18/22 11:46:00 EDT, Route to Pharmacy Electronically, [facility] [id number], Partial fill upon patient request if the prescr... Start Date: 10/18/22 Status: Ordered cloNIDine 0.1 mg oral tablet 0.1 mg, 1, tablet, By Mouth, Daily at bedtime, # 30 tablet, Refills 2, Tot. Refills 2, Maintenance,10/18/22 11:46:00 EDT, Route to Pharmacy Electronically, [facility] [id number], Partial fill upon patient request if the presc... Start Date: 10/18/22 Status: Ordered Creon 12,000 units oral delayed release capsule 1 capsule, By Mouth, 3 times a day, # 90 capsule, 3 Refills, Maintenance, 09/17/22 1:49:00 EDT, EC Capsule, [facility] [id number], Partial fill upon patient request if the [...] 09/17/22 1:48:00 EDT, Route to Pharmacy Electronically, [facility] [id number], 160, cm, 07/26/22 12:51:00 EDT, Height, 89.2, [...] 10/18/22 11:46:00 EDT, Route to Pharmacy Electronically, [facility] [id number], Partial fill upon patient request if the [...] mL, 5 Refills, Maintenance, 09/17/22 1:49:00 EDT, [facility] [id number], 15, 30 mL By Mouth 2 times a day, 160, cm, 07/26/22 12:51:00 EDT, Height, 89.2, kg, 07/21/22 3:29:00 EDT, Dry Weight Start Date: 09/17/22 Status: Ordered Lantus Solostar Pen 100 units/mL subcutaneous solution = 6 units, Subcutaneous Injection, Daily in AM, # 10 mL, 2 Refills, Maintenance, 04/29/22 14:34:00 EST, Solution, [facility] [id number], Partial fill upon patient request if the prescription is for a schedule II opioid drug.,... Start Date: 04/29/22 Status: Ordered multivitamin Multiple Vitamins oral tablet 1 tablet, By Mouth, Daily, # 90 tablet, 1 Refills, Maintenance, 10/22/22 19:32:00 EDT, Tablet, [facility] [id number], Partial fill upon patient request if the prescription isfor a schedule II opioid drug., 1 tablet By Mouth D... Start Date: 10/22/22 Status: Ordered Nicotine 2 mg gum 1 each = 2 mg, Chew, Every 2 hours, PRN for smoking cessation, for 4 week(s), # 160 each, 1 Refills, Acute 12/13/22 11:41:00 EDT, 10/18/22 11:41:00 EDT, Gum, [facility] [id number], Partial fill upon patient request if the pres... Start Date: 10/18/22 Stop Date: 12/13/22 Status: Ordered pantoprazole 40 mg oral delayed release tablet 1 tablet, By Mouth, Daily, # 30 tablet, 2 Refills, Maintenance, 11/10/22 11:02:00 EDT, 165.09, cm, 10/18/22 11:23:00 EDT, Height, 83.7, kg, 10/05/22 21:20:00 EDT, Dry Weight Start Date: 11/10/22 Status: Ordered Pen [place], 31 G x 5 mm BD Ultra [...] 10/12/22 10:21:00 EDT, Route to Pharmacy Electronically, [facility] [id number], Partial fill upon patient request if the prescription... Start Date: 10/12/22 Stop Date: 11/11/22 Status: Ordered risperiDONE 3 mg oral tablet 3 mg, 1, tablet, By Mouth, Daily at bedtime, # 30 tablet, Refills 0, Tot. Refills 0, Maintenance, 10/12/22 10:21:00 EDT, Route to Pharmacy Electronically, [facility], [facility] [id number], Partial fill upon patient request if the [...] Refills, Maintenance, 09/17/22 1:52:00 EDT, Inhaler, [facility] [id number], Partial fill upon patient request if the prescription is for a schedule II opioid drug., 160, cm, 07/26/22 12:... Start Date: 09/17/22 Stop Date: 03/16/23 Status: Ordered traZODone 50 mg oral tablet 50 mg, 1, tablet, By Mouth, Daily at bedtime, # 30 tablet, Refills 2, Tot. Refills 2, Maintenance, 09/17/22 1:47:00 EDT, Route to Pharmacy Electronically, [facility] [place], [place] - [id number], Partial fill upon patient request if the [...] Care Nurse Name: Rufino Lloyd RN Position: [facility] RN Member Role: Primary Care Nurse Name: Cristina Carpenter RN Position: [facility] RN Member Role: Primary Care Nurse Name: Rosette Noriega RN Position: [facility] SN RN Member Role: Primary Care Nurse Name: Mary Hidalgo RN Position: [facility] AMB Nurse Member Role: Primary Care Nurse Name: Sissy Duran RN Position: [facility] AMB Nurse Member Role: Primary Care Nurse Name: Rohit Zavaleta RN Position: [facility] RN Member Role: Primary Care Nurse Name: Erlinda Hartman NP Position: [facility] Associate Professional Member Role: Primary Care Nurse Address: Address: [address] [place] [address] Name: Shante Solis RN Position: [facility] RN Member Role: Primary Care Nurse Name: Joshua Prakash RN Position: [facility] RN Member Role: Primary Care Nurse Name: Bettie Vanegas RN Position: [facility] SN RN Member Role: Primary Care Nurse Name: Jay Marroquin RN Position: [facility] RN Member Role: Primary Care Nurse Name: Adrianna Church RN Position: [facility] RN Member Role: Primary Care Nurse Name: Sue Purdy RN Position: [facility] RN Member Role: Primary Care Nurse Name: Hector Perez RN Position: [facility] RN Member Role: Primary Care Nurse Name: Aleena Vizcaino RN Position: [facility] RN Member Role: Primary Care Nurse Name: Kacey Wilhelm RN Position: [facility] RN Member Role: Primary Care Nurse Name: Leslie Malloy RN Position: [facility] RN Member Role: Primary Care Nurse Name: Yesenia Hu LPN Position: [facility] RN Member Role: Primary Care Nurse Name: Joaquina Herrera RN Position: [facility] RN Member Role: Primary Care Nurse Name: Diego Bell RN Position: [facility] RN Member Role: Primary Care Nurse Name: Ese Grey Position: [facility] RN Member Role: Primary Care Nurse Name: Chela Najera RN Position: [facility] RN Member Role: Primary Care Nurse Name: Tootie Gonzalez RN Position: [facility] RN Member Role: Primary Care Nurse Name: Nancy Monte RN Position: [facility] RN Member Role: Primary Care Nurse Name: Marilee Starkey Position: [facility] RN Member Role: Primary Care Nurse Name: Silvina Dodd RN Position: [facility] RN Member Role: Primary Care Nurse Name: Flaco Clifford DO Position: [facility] Renal MD Member Role: Lifetime Consulting Physician Address: Address: [address] [place], [place] [address] [place] [place] [address]- Name: Marilee Richardson RN Position: [facility] RN Member Role: Primary Care Nurse Name: Rufino Johnson RN Position: [facility] RN Member Role: Primary Care Nurse Name: Judson Larry Position: [facility] RN Member Role: Primary Care Nurse Name: Jovita Camargo RN Position: [facility] RN Member Role: Primary Care Nurse Name: Bruna Pizarro Position: [facility] RN Member Role: Primary Care Nurse Name: Ju Zhu Position: [facility] RN Member Role: Primary Care Nurse Name: Ester Palomares Position: [facility] RN Member Role: Primary Care Nurse Name: Emma Colbert RN Position: [facility] RN Member Role: Primary Care Nurse Name: Hallie Gambino RN Position: [facility] Onco RN Member Role: Primary Care Nurse Name: Maya Ambriz RN Position: [facility] RN Member Role: Primary Care Nurse Name: Bhavna Rendon LPN Position: [facility] RN Member Role: Primary Care Nurse Name: Luis Burton RN Position: [facility] RN Member Role: Primary Care Nurse Name: Jaki Bishop MD Position: [facility] Physician - Primary Care Member Role: PCP Address: Address: [address] [place] [id number]- Name: Lucian Krause RN Position: [facility] RN Member Role: Primary Care Nurse Name: Misty Tariq Position: [facility] RN Member Role: Primary Care Nurse Name: Isaiah Combs RN Position: [facility] RN Member Role: Primary Care Nurse Name: Leslie Ward RN Position: [facility] RN Member Role: Primary Care Nurse Name: Jacki Gomes RN Position: [facility] RN Member Role: Primary Care Nurse Name: Derek Smith RN Position: [facility] RN Member Role: Primary Care Nurse Name: Perri Smith RN Position: [facility] RN Member Role: Primary Care Nurse Name: Mar Brothers RN Position: [facility] RN Member Role: Primary Care Nurse Name: Ivette Shankar RN Position: [facility] RN Member Role: Primary Care Nurse Name: Laura Mary RN Position: [facility] SN RN Member Role: Primary Care Nurse Name: Mary Guillen RN Position: [facility] RN Member Role: Primary Care Nurse Name: Octavio Box RN Position: [facility] RN Member Role: Primary Care Nurse Name: Nazia Tapia RN Position: [facility] RN Member Role: Primary Care Nurse Name: Pat Jackson RN Position: [facility] RN Member Role: Primary Care Nurse Name: Caren Hernandez RN Position: [facility] RN Supv Member Role: Primary Care Nurse Name: Perri Bryant RN Position: [facility] RN Member Role: Primary Care Nurse Name: Nely Wong RN Position: [facility] RN Member Role: Primary Care Nurse Name: Erica Brandon RN Position: [facility] RN Member Role: Primary Care Nurse Name: Adrianna Gonzalez RN Position: [facility] RN Member Role: Primary Care Nurse Name: Annmarie Feldman RN Position: [facility] PCO w/OE and EZ Script Member Role: Primary Care Nurse Name: Chinyere Espinoza RN Position: [facility] RN Member Role: Primary Care Nurse Name: Teresita Diallo RN Position: [facility] RN Member Role: Primary Care Nurse Name: Tennille Mcgarry RN Position: [facility] Hospital Wood Casket Assembler Member Role: Primary Care Nurse Name: Vicky Salazar RN Position: [facility] RN Member Role: Primary Care Nurse Name: Spencer Jameson RN Position: [facility] RN Member Role: Primary Care Nurse Name: Jalen Mullins Position: [facility] RN Member Role: Primary Care Nurse Care Team Related Persons Name: MARYANNE KELLER Address: [address] [place] [address] Name: MARYANNE KELLER Address: home [address] [place] [id number] Name: MARYANNE KELLER JR Address: home [address] [place] [address] Name: GEORGIA KELLER Address: [place] [address] Name: BALDEV POLANCO Address: [place] [address]
--- OUTSIDE RECORDS SUMMARY | 2023-02-09 22:47 | XMS_ITS | Continuity of Care Document ---
Author Name Unknown Organization [facility] Address [address] [place] [address]- Care Team Providers Care Assembler Small Products Name Role Phone Jaki Bishop MD Primary Care Physician [phone] [facility]counter [facility] Date[facility]s): 03/02/22 - 04/01/[address] [address]- Allergies, Adverse Reactions, Alerts Substance Reaction Severity [...] to COVID vaccine 2Admin Note: VIS GIVEN [id number] 3Admin Note: VIS GIVEN 2008- 4Admin Note: [...] 03/25/22 12:04:00 EST, Route to Pharmacy Electronically, [facility], Partial fill uponpatient request if the prescription is for a schedu... Start Date: 03/25/22 Stop Date: 04/24/22 Status: Ordered cloNIDine 0.1 mg oral tablet 0.1 mg, 1, tablet, By Mouth, Daily, # 30 tablet, Refills 0, Tot. Refills 0, Maintenance, 03/25/22 12:04:00 EST, Route to Pharmacy Electronically, [facility], Partial fill upon patient request if the prescription is for a schedule II opio... Start Date: 03/25/22 Stop Date: 04/24/22 Status: Ordered Coreg 6.25 mg oral tablet 6.25 mg, 1, tablet, By Mouth, 2 times a day, # 60 tablet, Refills 0, Tot. Refills 0, Maintenance, 03/25/22 12:04:00 EST, Route to Pharmacy Electronically, [facility], Partial fill upon patient request if the prescription is for a schedul... Start Date: 03/25/22 Stop Date: 04/24/22 Status: Ordered Creon 12,000 units oral delayed release capsule 1 capsule, By Mouth, 3 times a day, # 90 capsule, 0 Refills, Maintenance, 03/25/22 12:07:00 EST, ECCapsule, [facility], Partial fill upon patient request if the prescription is for a schedule II opioid drug., 167, cm, 03/25/22 3:14:00 E... Start Date: 03/25/22 Status: Ordered dextromethorphan-guaifenesin 10 mg-100 mg/5 mL oral liquid 5 mL, By Mouth, 4 times a day, PRN Cough, for 14 days, # 120 mL, 0 Refills, Acute 04/08/22 12:43:00EST, 03/25/22 12:43:00 EST, Syrup, [facility], Partial fill upon patient request if the prescription is for a schedule II opioid drug., 5... Start Date: 03/25/22 Stop Date: 04/08/22 Status: Ordered diphenhydrAMINE 25 mg oral tablet = 25 mg, By Mouth, 3 times a day, PRN Agitation, # 50 tablet, 0 Refills, Acute 04/20/22 21:00:00 EST, 03/25/22 12:05:00 EST, Tablet, [facility] 3, Partial fill upon patient request if theprescription is for a schedule II opioid drug., 167... Start Date: 03/25/22 Stop Date: 04/20/22 Status: Ordered divalproex sodium 500 mg oral enteric coated tablet = 1,000 mg, By Mouth, 2 times a day, # 120 tablet, 0 Refills, Maintenance, 03/25/22 12:06:00 EST, Tablet, [facility] 3, Partial fill upon patient request [...] 03/25/22 12:06:00 EST, Route to Pharmacy Electronically, [facility], Partial fill upon patient [...] 04/24/22 12:43:00 EST, 03/25/22 12:43:00 EST, Capsule, [facility], Partial fill uponpatient request [...] 0 Refills, Maintenance, 03/25/22 12:08:00 EST, Injection, [facility]... Start Date: 03/25/22 Status: Ordered Lantus Solostar Pen 100 units/mL subcutaneous solution = 6 units, Subcutaneous Injection, Daily in AM, # 10 mL, 0 Refills, Maintenance, 03/25/22 12:08:00 EST, Solution, [facility], Partial fill upon patient [...] 03/25/22 12:48:00 EST, Route to Pharmacy Electronically, [facility], Partial fill upon patient request if the prescription is for a schedule II... Start Date: 03/25/22 Stop Date: 04/24/22 Status: Ordered risperiDONE 3 mg oral tablet 3 mg, 1, tablet, By Mouth, Daily at bedtime, # 30 tablet, Refills 0, Tot. Refills 0, Maintenance, 03/25/22 12:48:00 EST, Route to Pharmacy Electronically, [facility], Partial fill upon patient request if the prescription is for a schedul... Start Date: 03/25/22 Status: Ordered thiamine 100 mg oral tablet 100 mg, 1, tablet, By Mouth, Daily, for 30 days, # 30 tablet, Refills 0, Tot. Refills 0, Acute 04/24/22 12:07:00 EST, 03/25/22 12:07:00 EST, Route to Pharmacy Electronically, [facility], Partial fill upon patient request if the prescript... Start Date: 03/25/22 Stop Date: 04/24/22 Status: Ordered tiotropium 2.5 mcg/inh inhalation aerosol 2 puffs, Inhalation, Daily, # 1 each, 0 Refills, Maintenance, 03/25/22 12:09:00 EST, Inhaler, [facility], Partial fill upon patient request if [...] Care Team Personnel Name: Lawrence Hendrix Position: [facility] RN Supv Member Role: Primary Care Nurse Name: Rufino Lloyd RN Position: [facility] RN Member Role: Primary Care Nurse Name: Cristina Carpenter RN Position: [facility] RN Member Role: Primary Care Nurse Name: Rosette Noriega RN Position: [facility] SN RN Member Role: Primary Care Nurse Name: Mary Hidalgo RN Position: [facility] PCO RN Member Role: Primary Care Nurse Name: Sissy Duran RN Position: [facility] AMB Nurse Member Role: Primary Care Nurse Name: Rohit Zavaleta RN Position: [facility] RN Member Role: Primary Care Nurse Name: Erlinda Hartman NP Position: [facility] Associate Professional Member Role: Primary Care Nurse Address: Address: [address] [place] [address]- Name: Jong Suazo RN Position: [facility] RN Supv Member Role: Primary Care Nurse Name: Shante Solis RN Position: [facility] RN Member Role: Primary Care Nurse Name: Joshua Prakash RN Position: [facility] RN Member Role: Primary Care Nurse Name: Bettie Vanegas RN Position: [facility] RN Member Role: Primary Care Nurse Name: Jay Marroquin RN Position: [facility] RN Member Role: Primary Care Nurse Name: Adrianna Church RN Position: [facility] RN Member Role: Primary Care Nurse Name: Sue Purdy RN Position: [facility] RN Member Role: Primary Care Nurse Name: Hector Perez RN Position: [facility] RN Member Role: Primary Care Nurse Name: Aleena Vizcaino RN Position: [facility] RN Member Role: Primary Care Nurse Name: Kacey Wilhelm RN Position: [facility] RN Member Role: Primary Care Nurse Name: Monalisa Barker Position: [facility] RN Member Role: Primary Care Nurse Name: Leslie Malloy RN Position: [facility] RN Member Role: Primary Care Nurse Name: Yesenia Hu LPN Position: [facility] RN Member Role: Primary Care Nurse Name: Joaquina Herrera RN Position: [facility] RN Member Role: Primary Care Nurse Name: Diego Bell RN Position: [facility] RN Member Role: Primary Care Nurse Name: Ese Grey Position: [facility] RN Member Role: Primary Care Nurse Name: Chela Najera RN Position: [facility] RN Member Role: Primary Care Nurse Name: Tootie Gonzalez RN Position: [facility] RN Member Role: Primary Care Nurse Name: Nancy Monte RN Position: [facility] RN Member Role: Primary Care Nurse Name: Marilee Starkey Position: [facility] RN Member Role: Primary Care Nurse Name: Silvina Dodd RN Position: [facility] RN Member Role: Primary Care Nurse Name: Flaco Clifford DO Position: [facility] Renal MD Member Role: Lifetime Consulting Physician Address: Address: [address] [place] [address] [address] [facility] [place], [place] [address] [place] Name: Marilee Richardson RN Position: [facility] RN Member Role: Primary Care Nurse Name: Rufino Johnson RN Position: [facility] ED RN W/OE and Tasks Member Role: Primary Care Nurse Name: Jovita Camargo RN Position: [facility] RN Member Role: Primary Care Nurse Name: Ju Zhu Position: [facility] RN Member Role: Primary Care Nurse Name: Ester Palomares Position: [facility] RN Member Role: Primary Care Nurse Name: Emma Colbert RN Position: [facility] RN Supv Member Role: Primary Care Nurse Name: Hallie Gambino RN Position: [facility] Oncbobo RN Member Role: Primary Care Nurse Name: Maya Ambriz RN Position: [facility] RN Member Role: Primary Care Nurse Name: Bhavna Rendon LPN Position: [facility] RN Member Role: Primary Care Nurse Name: Luis Burton RN Position: [facility] RN Member Role: Primary Care Nurse Name: Jaki Bishop MD Position: [facility] Primary Care Physician Member Role: PCP Address: Address: [address] [place] [address] Name: Lucian Krause RN Position: [facility] RN Member Role: Primary Care Nurse Name: Leslie Ward RN Position: [facility] RN Member Role: Primary Care Nurse Name: Jacki Gomes RN Position: [facility] RN Member Role: Primary Care Nurse Name: Ximena Saab RN Position: [facility] RN Member Role: Primary Care Nurse Name: Ivette Shankar RN Position: [facility] RN Supv Member Role: Primary Care Nurse Name: Laura Mary RN Position: [facility] SN RN Member Role: Primary Care Nurse Name: Octavio Box RN Position: [facility] RN Member Role: Primary Care Nurse Name: Nazia Tapia RN Position: [facility] RN Member Role: Primary Care Nurse Name: Caren Hernandez RN Position: [facility] RN Supv Member Role: Primary Care Nurse Name: Kinza De La Cruz RN Position: [facility] RN Member Role: Primary Care Nurse Name: Veronica Queen RN Position: [facility] RN Member Role: Primary Care Nurse Name: Perri Bryant RN Position: [facility] RN Member Role: Primary Care Nurse Name: Alba Toro RN Position: [facility] RN Member Role: Primary Care Nurse Name: Nely Wnog RN Position: [facility] RN Member Role: Primary Care Nurse Name: Erica Brandon RN Position: [facility] RN Member Role: Primary Care Nurse Name: Adrianna Gonzalez RN Position: [facility] RN Member Role: Primary Care Nurse Name: Annmarie Feldman RN Position: [facility] PCO w/OE and EZ Script Member Role: Primary Care Nurse Name: Alexis RAMIREZ, Chinyere Position: [facility] RN Member Role: Primary Care Nurse Name: Imani RAMIREZ, Teresita Reyes Position: [facility] RN Member Role: Primary Care Nurse Name: Tennille Mcgarry RN Position: [facility] Hospital Personal Financial Advisor Member Role: Primary Care Nurse Name: Marie RAMIREZ, Vicky Position: [facility] RN Member Role: Primary Care Nurse Name: Spencer Jameson RN Position: [facility] RN Member Role: Primary Care Nurse Name: Jalen Mullins Position: [facility] RN Member Role: Primary Care Nurse Care Team Related Persons Name: MARYANNE KELLER Address: [address] [place] [address] Name: MARYANNE KELLER Address: home [address] [address] Name: MARYANNE KELLER JR Address: [address] [place] [address] Name: GEORGIA KELLER Address: [place] [address] Name: BALDEV POLANCO Address: [place] [address]
--- OUTSIDE RECORDS SUMMARY | 2023-02-09 22:47 | XMS_ITS | Continuity of Care Document ---
Author Name Unknown Organization [facility] Address [address] [place] [address]- Care Team Providers Care Certified Detention Deputy Name Role Phone Jaki Bishop MD Primary Care Physician [phone] Encounter [facility] R [id number] Date(s): 06/28/22 - 07/28/[address] [address]- Attending Physician: Admtr, Antonio Allergies, Adverse Reactions, Alerts Substance Reaction Severity [...] to COVID vaccine 2Admin Note: VIS GIVEN [id number] 3Admin Note: VIS GIVEN 2008- 4Admin Note: vis 5Admin Note: vis 02/06/08 Medications albuterol 90 mcg/inh inhalation powder 2 puffs, Inhalation, Every 4 hours, PRN as needed, PRN Wheezing, # 1 each, 1 Refills, Maintenance, 06/28/22 14:49:00 EDT, Powder, [facility] [id number], Partial fill upon patient request if the [...] Route to Pharmacy Electronically, [facility] [id number], Partialfill upon patient request if the prescription is fo... Start Date: 07/16/22 Status: Ordered benzonatate 100 mg oral capsule 1 capsule = 100 mg, By Mouth, 3 times a day, PRN Cough, for 7 days, # 21 tablet, 0 Refills, Acute 08/02/22 11:17:00 EDT, 07/26/22 11:17:00 EDT, Capsule, [facility] [id number], Partial fill upon patient request if the prescript... Start Date: 07/26/22 Stop Date: 08/02/22 Status: Ordered benztropine 1 mg oral tablet 0.5 mg, 0.5, tablet, By Mouth, 2 times a day, # 30 tablet, Refills 3, Tot. Refills 3, Maintenance, 04/29/22 14:29:00 EST, Route to Pharmacy Electronically, [facility] [id number], Partial fill upon patient request if the [...] Route to Pharmacy Electronically, [facility] [id number], Partial fill upon patient request if the prescription is... Start Date: 04/29/22 Stop Date: 08/27/22 Status: Ordered Creon 12,000 units oral delayed release capsule 1 capsule, By Mouth, 3 times a day, # 90 capsule, 3 Refills, Maintenance, 04/29/22 14:37:00 EST, ECCapsule, [facility] [id number], Partial fill upon patient request if the [...] 06/01/22 16:34:00 EDT, Route to Pharmacy Electronically, [facility], 167, cm, 03/25/22 3:14:00 EST, Height, [...] mL, 1 Refills, Maintenance, 07/22/22 15:51:00 EDT, [facility], 15, TAKE 30 ML BY MOUTH two (2) times a day, 160, cm, 07/21/22 10:57:00 EDT, Height, 89.2, kg, 07/21/22 3:29:00 EDT, Dry Weight Start Date: 07/22/22 Status: Ordered Lantus Solostar Pen 100 units/mL subcutaneous solution = 6 units, Subcutaneous Injection, Daily in AM, # 10 mL, 2 Refills, Maintenance, 04/29/22 14:34:00 EST, Solution, [facility] [place], [place] - [id number], Partial fill upon patient request if the prescription is for a schedule II opioid drug.,... Start Date: 04/29/22 Status: Ordered multivitamin Multiple Vitamins oral tablet 1 tablet, By Mouth, Daily, # 90 tablet, 1 Refills, Maintenance, 04/02/22 16:44:00 EST, Tablet, [facility] [id number], Partial fill upon patient request if the [...] Route to Pharmacy Electronically, [facility] [id number], Partial fill upon patient request if the prescription... Start Date: 04/29/22 Stop Date: 08/27/22 Status: Ordered risperiDONE 3 mg oral tablet 3 mg, 1, tablet, By Mouth, Daily at bedtime, # 30 tablet, Refills 3, Tot. Refills 3, Maintenance, 04/29/22 14:39:00 EST, Route to Pharmacy Electronically, [facility] [id number], Partial fill upon patient request if the prescri... Start Date: 04/29/22 Status: Ordered thiamine 100 mg oral tablet 100 mg, 1, tablet, By Mouth, Daily, for 30 days, # 30 tablet, Refills 3, Tot. Refills 3, Acute 08/27/22 14:40:00 EDT, 04/29/22 14:40:00 EST, Route to Pharmacy Electronically, [facility] [id number], Partial fill upon patient re... Start Date: 04/29/22 Stop Date: 08/27/22 Status: Ordered tiotropium 2.5 mcg/inh inhalation aerosol 2 puffs, Inhalation, Daily, # 1 each, 5 Refills, Maintenance, 06/28/22 14:48:00 EDT, Inhaler, [place], [place] - [id number], Partial fill upon patient request if the [...] Yes; Type: Cigarettes entered on: 06/29/21 Sex Hospital Progress note * Miguel Blackwell MD: PERFORM, SIGN, VERIFY Event Display: Progress Note Hospital Authored Date: [id number] Patient: CARYL AVILA Age: 45 years Sex: [...] iron/IBC/ferritin (hemochromatosis). Note * Mera Leo RN: PERFORM, SIGN, VERIFY Event Display: Case Management Discharge Plan Authored Date: Patient: CARYL AVILA Age: 53 years Sex: Female : 1965 Associated Diagnoses: None Author: Mera Leo RN Unable to reach pt for follow up call. Pt. 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 * Henry , Marangely: PERFORM Event Display: Discharge/Transfer Note Hospital Authored Date: [id number] * Mera Packer: PERFORM, SIGN, VERIFY Event Display: Patient Education/Instruction Authored Date: [id number] [facility] Clinical Summary Person Information Name CARYL AVILA Age 45 Years 1965 12:00 AM PCP Rai Gonzalez MD PCP [facility]# [id number] Reason for Visit: Allergy Info: Zyprexa Vital [...] Rosita Mathis Hydrocortisone/Neomycin/Polymyxin B Otic (Cortisporin Otic 1%-0.35%-17595 u/ml solution) , See Instructions, 2 drops [...] primary care provider, you may find a [facility] provider by calling [facility] at [phone]. Patient Education Information Follow-up Details: Patient Education Material: Patient Care team information Care Team Personnel Name: Lawrence Hendrix Position: S RN Supv Member Role: Primary Care Nurse Name: Rufino Lloyd RN Position: S RN Member Role: Primary Care Nurse Name: Cristina Carpenter RN Position: [facility] RN Member Role: Primary Care Nurse Name: Rosette Noriega RN Position: [facility] SN RN Member Role: Primary Care Nurse Name: Mary Hidalgo RN Position: [facility] PCO RN Member Role: Primary Care Nurse Name: Sissy Duran RN Position: [facility] AMB Nurse Member Role: Primary Care Nurse Name: Rohit Zavaleta RN Position: [facility] RN Member Role: Primary Care Nurse Name: Erlinda Hartman NP Position: [facility] Associate Professional Member Role: Primary Care Nurse Address: Address: [address] [place] [address] Name: Jong Suazo RN Position: [facility] RN Supv Member Role: Primary Care Nurse Name: Shante Solis RN Position: [facility] RN Member Role: Primary Care Nurse Name: Joshua Prakash RN Position: [facility] RN Member Role: Primary Care Nurse Name: Bettie Vanegas RN Position: [facility] SN RN Member Role: Primary Care Nurse Name: Jay Marroquin RN Position: [facility] RN Member Role: Primary Care Nurse Name: Adrianna Church RN Position: [facility] RN Member Role: Primary Care Nurse Name: Sue Purdy RN Position: [facility] RN Member Role: Primary Care Nurse Name: Hector Perez RN Position: [facility] RN Member Role: Primary Care Nurse Name: Aleena Vizcaino RN Position: [facility] RN Member Role: Primary Care Nurse Name: Kacey Wilhelm RN Position: [facility] RN Member Role: Primary Care Nurse Name: Leslie Malloy RN Position: [facility] RN Member Role: Primary Care Nurse Name: Morena Easton RN Position: [facility] RN Member Role: Primary Care Nurse Name: Yesenia Hu LPN Position: [facility] RN Member Role: Primary Care Nurse Name: Joaquina Herrera RN Position: [facility] RN Member Role: Primary Care Nurse Name: Diego Bell RN Position: [facility] RN Member Role: Primary Care Nurse Name: Ese Grey Position: [facility] RN Member Role: Primary Care Nurse Name: Chela Najera RN Position: [facility] RN Member Role: Primary Care Nurse Name: Tootie Gonzalez RN Position: [facility] RN Member Role: Primary Care Nurse Name: Nancy Monte RN Position: [facility] RN Member Role: Primary Care Nurse Name: Marilee Starkey Position: [facility] RN Member Role: Primary Care Nurse Name: Silvina Dodd RN Position: [facility] RN Member Role: Primary Care Nurse Name: Flaco Clifford DO Position: [facility] Renal MD Member Role: Lifetime Consulting Physician Address: Address: [address] [place] [address] [facility] [place] [address]- Name: Marilee Richardson RN Position: [facility] RN Member Role: Primary Care Nurse Name: Rufino Johnson RN Position: [facility] RN Member Role: Primary Care Nurse Name: Jovita Camargo RN Position: [facility] RN Member Role: Primary Care Nurse Name: Ju Zhu Position: [facility] RN Member Role: Primary Care Nurse Name: Ester Palomares Position: [facility] RN Member Role: Primary Care Nurse Name: Emma Colbert RN Position: [facility] RN Supv Member Role: Primary Care Nurse Name: Hallie Gambino RN Position: [facility] Onco RN Member Role: Primary Care Nurse Name: Maya Ambriz RN Position: [facility] RN Member Role: Primary Care Nurse Name: Bhavna Rendon LPN Position: [facility] RN Member Role: Primary Care Nurse Name: Luis Burton RN Position: [facility] RN Member Role: Primary Care Nurse Name: Jaki Bishop MD Position: [facility] Primary Care Physician Member Role: PCP Address: Address: [address] [place] [address]- [place] Name: Lucian Krause RN Position: [facility] RN Member Role: Primary Care Nurse Name: Isaiah Combs RN Position: [facility] RN Member Role: Primary Care Nurse Name: Leslie Ward RN Position: [facility] RN Member Role: Primary Care Nurse Name: Jacki Gomes RN Position: [facility] RN Member Role: Primary Care Nurse Name: Ximena Saab RN Position: [facility] RN Member Role: Primary Care Nurse Name: Mar Brothers RN Position: [facility] RN Member Role: Primary Care Nurse Name: Ivette Shankar RN Position: [facility] RN Supv Member Role: Primary Care Nurse Name: Laura Mary RN Position: [facility] SN RN Member Role: Primary Care Nurse Name: Mary Guillen RN Position: [facility] RN Member Role: Primary Care Nurse Name: Octavio Box RN Position: [facility] RN Member Role: Primary Care Nurse Name: Nazia Tapia RN Position: [facility] RN Member Role: Primary Care Nurse Name: Pat Jackson RN Position: [facility] RN Member Role: Primary Care Nurse Name: Caren Hernandez RN Position: [facility] RN Supv Member Role: Primary Care Nurse Name: Perri Bryant RN Position: [facility] RN Member Role: Primary Care Nurse Name: Alba Toro RN Position: [facility] RN Member Role: Primary Care Nurse Name: Nely Wong RN Position: [facility] RN Member Role: Primary Care Nurse Name: Erica Brandon RN Position: [facility] RN Member Role: Primary Care Nurse Name: Adrianna Gonzalez RN Position: [facility] RN Member Role: Primary Care Nurse Name: Annmarie Feldman RN Position: [facility] PCO w/OE and EZ Script Member Role: Primary Care Nurse Name: Chinyere Espinoza RN Position: [facility] RN Member Role: Primary Care Nurse Name: Teresita Diallo RN Position: [facility] RN Member Role: Primary Care Nurse Name: Tennille Mcgarry RN Position: [facility] Hospital Workday Director Member Role: Primary Care Nurse Name: Vicky Salazar RN Position: [facility] RN Member Role: Primary Care Nurse Name: Spencer Jameson RN Position: [facility] RN Member Role: Primary Care Nurse Name: Jalen Mullins Position: [facility] RN Member Role: Primary Care Nurse Care Team Related Persons Name: MARYANNE KELLER Address: [address] [address] Name: MARYANNE KELLER Address: home [address] [place] [address] Name: MARYANNE KELLER JR Address: [address] [place] [address] Name: GEORGIA KELLER Address: [place] [address] Name: BALDEV POLANCO Address: [place] [address]
--- OUTSIDE RECORDS SUMMARY | 2023-02-09 22:47 | XMS_ITS | Continuity of Care Document ---
Author Name Unknown Organization [facility] Address [address] [place] [address]- Care Team Providers Care Cataract Lens Generator Name Role Phone Jaki Bishop MD Primary Care Physician [facility] Date(s): 10/05/19 - 11/04/[address] [address]- [facility] Allergies, Adverse Reactions, Alerts Substance Reaction [...] Given Permanently Refused 1Admin Note: VIS GIVEN [id number] 2Admin Note: VIS GIVEN 2008-12 3Admin Note: vis 4Admin Note: vis 02/06/08 Medications acetaminophen 325 mg oral tablet 1, tablet, By Mouth, 4 times a day, PRN, no MORE THAN 4 TABLETS PER DAY., # 60 tablet, Refills 2, Tot. Refills 0, Acute, NEEDED, 08/07/19 23:17:00 EDT, Route to Pharmacy Electronically, [facility], 166, cm, 05/28/19 11:08:00 EDT, [...] 08/07/19 14:24:00 EDT, Route to Pharmacy Electronically, [place], [place] -, 166, cm, 05/28/19 11:08:00 EDT, [...] 02/21/19 14:45:44 EST, Route to Pharmacy Electronically, [id number], [place], [place] -, 168, cm, 02/14/19... Start Date: [...] Maintenance,03/27/19 16:10:00 EST, Route to Pharmacy Electronically, [facility] #[id number], 166, cm, 03/27/19 15:26:00 EST, Height, 91.8, [...] to Anna ( [facility], #[id number]), 07/26/19 15... Start Date: 07/26/19 Status: Ordered Golytely - oral powder for reconstitution See Instructions, split prep, # 4,000 mL, 0 Refills, Maintenance, 09/24/19 14:15:00 EDT, REC Powder, [place], [place] -, split prep, 166, cm, 09/24/19 [...] mL, 6 Refills, Maintenance, 05/04/19 12:52:00 EST, [place], [place] - , Humalog ins... Start Date: [...] Refills, Maintenance, 07/26/19 8:25:00 EDT, REC Powder, [place], [place] -, 17 Gm By Mouth 2 times a day,PRN:Oth... Start Date: 07/26/19 Status: Ordered MiraLax Powder = 17 Gm, By Mouth, 2 times a day, 0 Refills, Maintenance, 10/11/19 0:39:00 EDT Start Date: 10/11/19 Status: Ordered multivitamin Multiple Vitamins oral tablet 1 tablet, By Mouth, Daily, # 90 tablet, 1 Refills, Maintenance, 08/07/19 14:23:00 EDT, Tablet, [place], [place] -, 1 tablet By Mouth Daily, [...] Weight Start Date: 10/29/19 Status: Ordered Pen [place], 31 G x 8 mm BD Ultra [...] Attn Dr. Mariano Andrade, Outpatient Psychiatry, at [phone]., See Instructions, # 1 application, Refills 0, [...] 5 Refills, Maintenance, 08/27/19 7:36:00 EDT, Tablet, [facility] - [place], [place] -, this is an increased, 1 [...] 04/20/19 10:38:00 EST, Route to Pharmacy Electronically, [facility] #[id number], 166, cm, 04/20/19 10:17:00 EST, Height, 91.8, kg, 02/23/19 17:03:00 EST, Start Date: 04/20/19 Status: Ordered torsemide 20 mg oral tablet 2 tablet = 40 mg, Daily, 0 Refills, Maintenance, 10/10/19 23:41:00 EDT Start Date: 10/10/19 Status: Ordered torsemide 20 mg oral tablet 2 tablet = 40 mg, By Mouth, Daily, # 180 tablet, 11 Refills, Maintenance, 04/20/19 10:38:00 EST, Tablet, [facility] #[id number], Replaces lower dose, 166, cm, 04/20/19 10:17:00 [...] Active BHN/ [employer] Officer/Janet Pandey [phone](Confirmed) Active History of cholecystectomy(Confirmed) Active Hypertension(Confirmed) Active [...]
--- OUTSIDE RECORDS SUMMARY | 2023-02-09 22:47 | XMS_ITS | Continuity of Care Document ---
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 for assistance with medication management. Reviewed data including medical records, crisis evaluations, test results.??Patient has been agitated and restrained and received multiple IMs since arrival. Initial psychiatric evaluation reveals patient to be angry and tangential, cursing at staff, denying psychiatric symptoms. This is an established problem that is inadequately controlled. She was[facility]charged from [facility] on 10/11/[facility]22 after a similar presentation. She has home nursing services but it is unclear whether she is consistent with her medication. Asked the patient about treatment-related preferences. Explained to the patient the differential diagnosis, risks of untreated illness, treatment options, and benefits and risks of treatment. Patient is not willing to engage. Will restart regimen as established on recent [facility] admission. Disposition as per crisis services. ?? Diagnoses Schizoaffective disorder, bipolar type Nonadherence to medication Agitation ?? Recommendations -Disposition as per??[facility], albeit currently a bed search for inpatient psychiatric hospitalization. -Continue home medications: ? -Risperdal - restart at 1 mg PO twice daily due to suspected inconsistence. Continue to titrate dose targeting disorganized behavior. ? -Cogentin 0.5 mg PO twice daily ? -trazodone 50 mg PO daily at bedtime ? -clonidine 0.1 mg PO daily at bedtime ? -melatonin 3 mg PO daily at bedtime -Start Vistaril 50 mg PO??q6h PRN anxiety -Start Haldol 5 mg, Ativan 2 mg, and Benadryl 50 mg PO/IM??q6h PRN agitation -The preference is for PO medications, but if the patient refuses the oral medications and there issufficient acute safety concern, can judiciously utilize IM equivalents for severe agitation.?? -Would note that these medications are only being utilized in the ER while the patient awaits placement. Long-term need for these medications will need to be assessed by the patient's future treatingpsychiatrist. -Because patient is here in a psychiatric crisis, it is particularly important to be clear when communicating with them. Please try to avoid medical jargon. -Seclusion or restraint may only be used as interventions of last resort in the management of severe agitation in patient. If they are used, seclusion and restraint episodes should be as short as possible, dignified, and as safe as possible for all involved. Patient preference should always be considered when feasible. -Follow-up baseline labs including AST, ALT, Albumin, Protein, TSH with reflex T4 to rule out organic etiology of presenting symptoms. -Urine toxicology - amphetamines, barbiturates,??benzodiazepines, cannabis, cocaine, opiates? Thank you for allowing us to participate in this patient's care. We will continue to follow the patient as needed by the primary team. Please feel free to contact the Psychiatry consult service ([id number] or page [phone]) with any questions or concerns.? Recommendations??cortexted to Dr. Branden Weathers. ? Tori Marr BA MSN PMHNP- Emergency Psychiatry Services Division of Consultation-Liaison Psychiatry [facility] ? Problem List/Past Medical History Ongoing Anemia Asthma Atrophic vaginitis Biventricular HF (heart failure, EF 20-30%) Chronic kidney disease (CKD) Chronic low back pain w/Bilateral LE Radiculopathy (Lumbar DDD, MRI 03/2011) Cirrhosis of liver (Steatohepatitis/NAFLD, Suspected GI Sarcoidosis but no findings sarcoid 2012 liver biopsy) CKD stage 3 due to type 2 diabetes mellitus COPD without exacerbation CS (cervical spondylosis) Diabetes Dyshidrotic eczema General medical GERD without esophagitis H/O tubal ligation 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-associated pneumonia) History of cholecystectomy History of Chronic pancreatitis & Pseudocyst History of splenectomy Hyperglycemia due to diabetes mellitus Hypertension Hypoxia Incisional hernia Leukocytosis Nicotine dependence Obesity (BMI 30.0-34.9) Placement Pulmonary HTN, Severe Schizoaffective disorder, bipolar type Steatohepatitis (w/Stage III Fibrosis, Liver Biopsy 05/2012) Syncope and collapse Tobacco use Type 2 diabetes with nephropathy Weakness Weight loss 783.21 Procedure/Surgical History Laparotomy: 03/2013 Laparoscopic Cholecystectomy: 2001 Cesarian Section: 1991 Cesarian Section: 1987 Cesarian Section: 1981 Cesarian Section: 1980 Medications albuterol 90 mcg/inh inhalation powder, 2 puffs, Inhalation, Every 4 hours, PRN, 1 refills Alcohol Wipes, See Instructions amLODIPine 5 mg oral tablet, 5 mg= 1 tablet, By Mouth, Daily, 5 refills benztropine 1 mg oral tablet, 0.5 mg, By Mouth, 2 times a day benztropine 1 mg oral tablet, 0.5 mg= 0.5 tablet, By Mouth, 2 times a day, 3 refills Cane, See Instructions carvedilol 3.125 mg oral tablet, 3.125 mg, By Mouth, 2 times a day carvedilol 3.125 mg oral tablet, 3.125 mg= 1 tablet, By Mouth, 2 times a day, 2 refills cloNIDine 0.1 mg oral tablet, 0.1 mg, By Mouth, Daily at bedtime cloNIDine 0.1 mg oral tablet, 0.1 mg= 1 tablet, By Mouth, Daily at bedtime, 2 refills Creon 12,000 units oral delayed release capsule, 1 capsule, By Mouth, 3 times a day, 3 refills Docusate/Senna Tablet, 1 tablet, By Mouth, 2 times a day, PRN Docusate/Senna Tablet, 1 tablet, By Mouth, 2 times a day, PRN folic acid 1 mg oral tablet, 1 mg, By Mouth, Daily folic acid 1 mg oral tablet, 1 tablet, By Mouth, Daily, 1 refills Freestyle Lite Lancets, See Instructions Freestyle Lite Monitor, See Instructions, 5 refills Freestyle Lite Test Strips, See Instructions, 11 refills furosemide 20 mg oral tablet, 20 mg= 1 tablet, By Mouth, Daily, 1 refills Insulin Glargine Inj, 6 units= 0.06 mL, Subcutaneous Injection, Daily in AM insulin lispro 100 u/ml subcutaneous injection, 2-10 units, Subcutaneous Injection, 3 times a day before meals Insulin LISPRO Sliding Scale, 2-10 units, Subcutaneous Injection, 3 times a day before meals lactulose 10 gm/15 ml oral syrup, 20 Gm= 30 mL, By Mouth, 2 times a day lactulose 10 gm/15 ml oral syrup, 30 mL, By Mouth, 2 times a day, 5 refills Lantus Solostar Pen 100 units/mL subcutaneous solution, 6 units, Subcutaneous Injection, Daily in AM, 2 refills magnesium oxide 400 mg oral tablet, 400 mg= 1 tablet, By Mouth, Daily multivitamin Multiple Vitamins oral tablet, 1 tablet, By Mouth, Daily, 1 refills Nicotine 2 mg gum, 2 mg= 1 each, Chew, Every 2 hours, PRN, 1 refills Nicotine Gum, 2 mg, Chew, Every 2 hours, PRN Pancrelipase Capsule, 88127 units= 4 capsule, By Mouth, 3 times a day with meals pantoprazole 40 mg oral delayed release tablet, 40 mg, By Mouth, Daily pantoprazole 40 mg oral delayed release tablet, 1 tablet, By Mouth, Daily Pen [place], 31 G x 5 mm BD Ultra Fine III, See Instructions, 5 refills risperiDONE 1 mg oral tablet, 2 mg, By Mouth, Daily in AM risperiDONE 2 mg oral tablet, 2 mg= 1 tablet, By Mouth, Daily in AM risperiDONE 3 mg oral tablet, 3 mg= 1 tablet, By Mouth, Daily at bedtime Robitussin DM Liquid, 10 mL, By Mouth, Every 4 hours, PRN shower chair, See Instructions tiotropium 2.5 mcg/inh inhalation aerosol, 2 puffs, Inhalation, Daily, 5 refills traZODone 50 mg oral tablet, 50 mg, By Mouth, Daily at bedtime traZODone 50 mg oral tablet, 50 mg= 1 tablet, By Mouth, Daily at bedtime, 2 refills Walker, See Instructions Allergies NSAIDs Zyprexa??(Hypertension) predniSONE??(Dizzinesses 02-JAN-2016 21:52:27<$>) Family History Cervical: Mother. Stomach: Mother. Uterus: Negative: Mother. Immunizations Vaccine Date Status influenza virus vaccine, [...] (oldterm) 01/25/2011 Given Comments : VIS GIVEN [id number] pneumococcal 23-valent vaccine 08/25/2010 Given Influenza Inactive (IM) (oldterm) 12/04/2009 Given Comments : vis Influenza Vaccine (oldterm) 11/29/2008 Given Comments : VIS GIVEN 2008- tetanus-diphtheria toxoids (Td) 10/11/2008 Given Comments : vis 02/06/08 influenza virus vaccine, inactivated 03/04/2008 Given Health Maintenance Health Maintenance ?Pending??(in the next year) ?OverDue ?Mammography Screening due?01/28/13?and every 2?years ?Diabetes Microalbumin due?02/07/22?and every 1?years ?Due?Asthma - Spirometry due?11/22/22?One-time only ?Asthma Maintenance due?11/22/22?and every 1?years ?Chronic Obstructive Pulmonary Disease - Spirometry Evaluation due?11/22/22?One-time only ?Colorectal Cancer Screening due?11/22/22?Variable frequency ?Diabetes Comprehensive Foot Exam due?11/22/22?Unknown Frequency ?Diabetes Dilated Retinal Eye Exam due?11/22/22?Variable frequency ?Due In Future?Diabetes HbA1c not due until?02/03/23?and every 4?months ?Social Determinants of Health Screening not due until?03/21/23?and every 1?years ?Cervical Smear Screening not due until?08/10/23?and every 5?years ?Basic Metabolic Panel not due until?11/21/23?and every 1?years ?Heart Failure - Creatinine not due until?11/22/23?and every 1?years ?Heart Failure - Electrolytes not due until?11/22/23?and every 1?years ?Satisfied??(in the past 1 year) ?Satisfied?5 yr Lipids Screening on?03/18/22.?Satisfied by [employer] , [employer] ?Basic Metabolic Panel on?11/21/22.?Satisfied by [employer] , [employer] ?Depression Screening on?10/18/22.?Satisfied by Alysia Walls MA ?Diabetes HbA1c on?10/06/22.?Satisfied by [employer] [facility] [employer] ?Diabetes Screening on?11/21/22.?Satisfied by [employer] [facility] [employer] ?HIV Screening on?07/21/22.?Satisfied by [employer] , [employer] ?Heart Failure - Creatinine on?11/21/22.?Satisfied by [employer] , [employer] ?Heart Failure - Electrolytes on?11/21/22.?Satisfied by [employer] , [employer] ?Social Determinants of Health Screening on?10/18/22.?Satisfied by Alysia Walls MA ?? Lab Results Abs. Baso: 0.1 k/mm3 (11/21/22) Abs. Eo: 0.2 k/mm3 (11/21/22) Abs. Imm Gran: 0 k/mm3 (11/21/22) Abs. Lymph:??3.7 k/mm3??High (11/21/22) Abs. [place]:??1.2 k/mm3??High (11/21/22) Abs. Neut: 3.4 k/mm3 (11/21/22) Abs. NRBC: 0 k/mm3 (11/21/22) Albumin, Urine: TRACE Abnormal (11/21/22) Ammonia, Venous: 27 ??mole/L (11/21/22) Anion Gap: 17 (11/21/22) Appear/Color, Urine: LIGHT YELLOW (11/21/22) Baso %: 0.6 % (11/21/22) Bicarbonate Level:??19 mmol/L??Low (11/21/22) Bilirubin, Urine: NEGATIVE (11/21/22) BUN: 10 mg/dL (11/21/22) Chloride: 105 mmol/L (11/21/22) COVID-19 by RT-PCR: NEGATIVE (11/21/22) Creatinine-Blood: 0.8 mg/dL (11/21/22) Eos %: 2.3 % (11/21/22) Estimated GFR Creatinine: 83 ML/MIN/1.73 M2 (11/21/22) Ethanol, Serum or Plasma: NONE DETECTED (11/21/22) Glucose Level:??156 mg/dL??High (11/21/22) Glucose, POC:??117 mg/dL??High (11/21/22) Glucose, Urine: NEGATIVE (11/21/22) Hct: 39.2 % (11/21/22) Hemoglobin, Urine: NEGATIVE (11/21/22) Hgb: 13.1 Gm/dL (11/21/22) Hold Urine Culture: Testing available 48 hours from time of collection. (11/21/22) Imm Gran: 0.3 % (11/21/22) Ketones, Urine: NEGATIVE (11/21/22) Leukocyte, Urine: 1+ Abnormal (11/21/22) Lymph %:??43.4 %??High (11/21/22) MCH: 30.8 pg (11/21/22) MCHC: 33.4 g/dL (11/21/22) MCV: 92.2 femtoliters (11/21/22) [place] %:??13.6 %??High (11/21/22) MPV: 11.1 femtoliters (11/21/22) Neut %:??39.8 %??Low (11/21/22) Nitrite, Urine: NEGATIVE (11/21/22) Nucleated RBC (Automated): 0 #/100 WBC'S (11/21/22) pH, Urine: 6.5 (11/21/22) Platelet Count: 393 k/mm3 (11/21/22) Potassium: 4.5 mmol/L (11/21/22) RBC: 4.25 m/mm3 (11/21/22) RBC Morphology: MODERATE (11/21/22) RBC's, Urine: NONE SEEN (11/21/22) RDW-SD:??49.6 femtoliters??High (11/21/22) Sodium: 141 mmol/L (11/21/22) Specific [place], Urine: 1.012 (11/21/22) Squamous Epith: 4 /HPF (11/21/22) Urobilinogen: NORMAL (11/21/22) WBC: 8.6 k/mm3 (11/21/22) WBC's, Urine: 4 /HPF (11/21/22) Patient Care team information Care Team Personnel Name: Simeon Lawrence Position: [facility] RN Member Role: Primary Care Nurse Name: Nazia Norris RN Position: [facility] Outreach Member Role: Primary Care Nurse Name: Rufino Lloyd RN Position: [facility] RN Member Role: Primary Care Nurse Name: Cristina Carpenter RN Position: [facility] RN Member Role: Primary Care Nurse Name: Rosette Noriega RN Position: [facility] SN RN Member Role: Primary Care Nurse Name: Mary Hidalgo RN Position: [facility] AMB Nurse Member Role: Primary Care Nurse Name: Sissy Duran RN Position: [facility] AMB Nurse Member Role: Primary Care Nurse Name: Rohit Zavaleta RN Position: [facility] RN Member Role: Primary Care Nurse Name: Erlinda Hartman NP Position: [facility] Associate Professional Member Role: Primary Care Nurse Address: Address: [address] [place] [address] Name: Shante Solis RN Position: [facility] RN Member Role: Primary Care Nurse Name: Joshua Prakash RN Position: [facility] RN Member Role: Primary Care Nurse Name: Bettie Vanegas RN Position: [facility] SN RN Member Role: Primary Care Nurse Name: Jay Marroquin RN Position: [facility] RN Member Role: Primary Care Nurse Name: Adrianna Church RN Position: [facility] RN Member Role: Primary Care Nurse Name: Sue Purdy RN Position: [facility] RN Member Role: Primary Care Nurse Name: Hector Perez RN Position: [facility] RN Member Role: Primary Care Nurse Name: Aleena Vizcaino RN Position: [facility] RN Member Role: Primary Care Nurse Name: Kacey Wilhelm RN Position: [facility] RN Member Role: Primary Care Nurse Name: Leslie Malloy RN Position: [facility] RN Member Role: Primary Care Nurse Name: Yesenia Hu LPN Position: [facility] RN Member Role: Primary Care Nurse Name: Joaquina Herrera RN Position: [facility] RN Member Role: Primary Care Nurse Name: Diego Bell RN Position: [facility] RN Member Role: Primary Care Nurse Name: Ese Grey Position: [facility] RN Member Role: Primary Care Nurse Name: Cehla Najera RN Position: [facility] RN Member Role: Primary Care Nurse Name: Tootie Gonzalez RN Position: [facility] RN Member Role: Primary Care Nurse Name: Nancy Monte RN Position: [facility] RN Member Role: Primary Care Nurse Name: Marilee Starkey Position: [facility] RN Member Role: Primary Care Nurse Name: Silvina Dodd RN Position: [facility] RN Member Role: Primary Care Nurse Name: Flaco Clifford DO Position: [facility] Renal MD Member Role: Lifetime Consulting Physician Address: Address: [address] [place], [place] [address] [place] [address]- Name: Marilee Richardson RN Position: [facility] RN Member Role: Primary Care Nurse Name: Rufino Johnson RN Position: [facility] RN Member Role: Primary Care Nurse Name: Judson Larry Position: [facility] RN Member Role: Primary Care Nurse Name: Jovita Camargo RN Position: [facility] RN Member Role: Primary Care Nurse Name: Bruna Pizarro Position: [facility] RN Member Role: Primary Care Nurse Name: Ju Zhu Position: [facility] RN Member Role: Primary Care Nurse Name: Ester Palomares Position: [facility] RN Member Role: Primary Care Nurse Name: Emma Colbert RN Position: [facility] RN Member Role: Primary Care Nurse Name: Hallie Gambino RN Position: [facility] Onco RN Member Role: Primary Care Nurse Name: Maya Ambriz RN Position: [facility] RN Member Role: Primary Care Nurse Name: Bhavna Rendon LPN Position: [facility] RN Member Role: Primary Care Nurse Name: Luis Burton RN Position: [facility] RN Member Role: Primary Care Nurse Name: Jaki Bishop MD Position: [facility] Physician - Primary Care Member Role: PCP Address: Address: [address] [place] [address]- [place] Name: Lucian Krause RN Position: [facility] RN Member Role: Primary Care Nurse Name: Misty Tariq Position: [facility] RN Member Role: Primary Care Nurse Name: Isaiah Combs RN Position: [facility] RN Member Role: Primary Care Nurse Name: Leslie Ward RN Position: [facility] RN Member Role: Primary Care Nurse Name: Jacki Gomes RN Position: [facility] RN Member Role: Primary Care Nurse Name: Derek Smith RN Position: [facility] RN Member Role: Primary Care Nurse Name: Perri Smith RN Position: [facility] RN Member Role: Primary Care Nurse Name: Mar Brothers RN Position: [facility] RN Member Role: Primary Care Nurse Name: Ivette Shankar RN Position: [facility] RN Member Role: Primary Care Nurse Name: Laura Mary RN Position: [facility] SN RN Member Role: Primary Care Nurse Name: Mary Guillen RN Position: [facility] RN Member Role: Primary Care Nurse Name: Octavio Box RN Position: [facility] RN Member Role: Primary Care Nurse Name: Nazia Tapia RN Position: [facility] RN Member Role: Primary Care Nurse Name: Pat Jackson RN Position: [facility] RN Member Role: Primary Care Nurse Name: Caren Hernandez RN Position: [facility] RN Supv Member Role: Primary Care Nurse Name: Perri Bryant RN Position: [facility] RN Member Role: Primary Care Nurse Name: Nely Wong RN Position: [facility] RN Member Role: Primary Care Nurse Name: Erica Brandon RN Position: [facility] RN Member Role: Primary Care Nurse Name: Adrianna Gonzalez RN Position: [facility] RN Member Role: Primary Care Nurse Name: Annmarie Feldman RN Position: [facility] PCO w/OE and EZ Script Member Role: Primary Care Nurse Name: Chinyere Espinoza RN Position: [facility] RN Member Role: Primary Care Nurse Name: Teresita Diallo RN Position: [facility] RN Member Role: Primary Care Nurse Name: Tennille Mcgarry RN Position: [facility] Hospital Processing Tech Member Role: Primary Care Nurse Name: Vicky Salazar RN Position: [facility] RN Member Role: Primary Care Nurse Name: Spencer Jameson RN Position: [facility] RN Member Role: Primary Care Nurse Name: Jalen Mullins Position: [facility] RN Member Role: Primary Care Nurse [facility] Attending Position: [facility] ED Attendings Patient Name: Cristel Peguero DO Position: [facility] Resident Member Role: Admitting Physician Address: Address: [address] [place] [id number] Name: Sydnie Alex RN Position: [facility] ED RN W/OE and Tasks Member Role: Patient Care Provider Care Team Related Persons Name: MARYANNE KELLER Address: [address] [place] [address] Name: MARYANNE KELLER Address: home [address] [place] [id number] Name: MARYANNE KELLER JR Address: home [address] [place] [address] Name: GEORGIA KELLER Address: [place] [address] Name: BALDEV POLANCO Address: [place] [address]
--- OUTSIDE RECORDS SUMMARY | 2023-02-09 22:47 | XMS_ITS | Continuity of Care Document ---
Author Name Unknown Organization [facility] Address [address] [place] [address]- Care Team Providers Care Newspaper Correspondent Name Role Phone Jaki Bishop MD Primary Care Physician Encounter [facility] Date(s): 11/08/22 - 12/08/[address] [address] Allergies, Adverse Reactions, Alerts Substance [...] to COVID vaccine 2Admin Note: VIS GIVEN [id number] 3Admin Note: VIS GIVEN 2008-10 4Admin Note: vis 5Admin Note: vis 02/06/08 Medications albuterol 90 mcg/inh inhalation powder 2 puffs, Inhalation, Every 4 hours, PRN as needed, PRN Wheezing, # 1 each, 1 Refills, Maintenance, 06/28/22 14:49:00 EDT, Powder, [facility], [place] - [id number], Partial fill upon patient request if the [...] 07/16/22 16:04:00 EDT, Route to Pharmacy Electronically, [facility] [id number], Partialfill upon patient request if the prescription is fo... Start Date: 07/16/22 Status: Ordered benztropine 1 mg oral tablet 0.5 mg, 0.5, tablet, By Mouth, 2 times a day, # 30 tablet, Refills 3, Tot. Refills 3, Maintenance, 09/17/22 1:51:00 EDT, Route to Pharmacy Electronically, [facility] [id number], Partial fill upon patient request if the [...] 10/18/22 11:46:00 EDT, Route to Pharmacy Electronically, [facility] [id number], Partial fill upon patient request if the prescr... Start Date: 10/18/22 Status: Ordered cloNIDine 0.1 mg oral tablet 0.1 mg, 1, tablet, By Mouth, Daily at bedtime, # 30 tablet, Refills 2, Tot. Refills 2, Maintenance,10/18/22 11:46:00 EDT, Route to Pharmacy Electronically, [facility] [id number], Partial fill upon patient request if the presc... Start Date: 10/18/22 Status: Ordered Creon 12,000 units oral delayed release capsule 1 capsule, By Mouth, 3 times a day, # 90 capsule, 3 Refills, Maintenance, 09/17/22 1:49:00 EDT, EC Capsule, [facility] [id number], Partial fill upon patient request if the [...] 09/17/22 1:48:00 EDT, Route to Pharmacy Electronically, [facility] [id number], 160, cm, 07/26/22 12:51:00 EDT, Height, 89.2, [...] 10/18/22 11:46:00 EDT, Route to Pharmacy Electronically, [facility] [id number], Partial fill upon patient request if the [...] mL, 5 Refills, Maintenance, 09/17/22 1:49:00 EDT, [facility] [id number], 15, 30 mL By Mouth 2 times a day, 160, cm, 07/26/22 12:51:00 EDT, Height, 89.2, kg, 07/21/22 3:29:00 EDT, Dry Weight Start Date: 09/17/22 Status: Ordered Lantus Solostar Pen 100 units/mL subcutaneous solution = 6 units, Subcutaneous Injection, Daily in AM, # 10 mL, 2 Refills, Maintenance, 04/29/22 14:34:00 EST, Solution, [facility] [id number], Partial fill upon patient request if the prescription is for a schedule II opioid drug.,... Start Date: 04/29/22 Status: Ordered multivitamin Multiple Vitamins oral tablet 1 tablet, By Mouth, Daily, # 90 tablet, 1 Refills, Maintenance, 10/22/22 19:32:00 EDT, Tablet, [facility] [id number], Partial fill upon patient request if the prescription isfor a schedule II opioid drug., 1 tablet By Mouth D... Start Date: 10/22/22 Status: Ordered Nicotine 2 mg gum 1 each = 2 mg, Chew, Every 2 hours, PRN for smoking cessation, for 4 week(s), # 160 each, 1 Refills, Acute 12/13/22 11:41:00 EDT, 10/18/22 11:41:00 EDT, Gum, [facility] [id number], Partial fill upon patient request if the pres... Start Date: 10/18/22 Stop Date: 12/13/22 Status: Ordered pantoprazole 40 mg oral delayed release tablet 1 tablet, By Mouth, Daily, # 30 tablet, 2 Refills, Maintenance, 11/10/22 11:02:00 EDT, 165.09, cm, 10/18/22 11:23:00 EDT, Height, 83.7, kg, 10/05/22 21:20:00 EDT, Dry Weight Start Date: 11/10/22 Status: Ordered Pen [place], 31 G x 5 mm BD Ultra [...] 10/12/22 10:21:00 EDT, Route to Pharmacy Electronically, [facility] [id number], Partial fill upon patient request if the prescription... Start Date: 10/12/22 Stop Date: 11/11/22 Status: Ordered risperiDONE 3 mg oral tablet 3 mg, 1, tablet, By Mouth, Daily at bedtime, # 30 tablet, Refills 0, Tot. Refills 0, Maintenance, 10/12/22 10:21:00 EDT, Route to Pharmacy Electronically, [facility], [facility] [id number], Partial fill upon patient request if the [...] 5 Refills, Maintenance, 09/17/22 1:52:00 EDT, Inhaler, [facility] [id number], Partial fill upon patient request if the prescription is for a schedule II opioid drug., 160, cm, 07/26/22 12:... Start Date: 09/17/22 Stop Date: 03/16/23 Status: Ordered traZODone 50 mg oral tablet 50 mg, 1, tablet, By Mouth, Daily at bedtime, # 30 tablet, Refills 2, Tot. Refills 2, Maintenance, 09/17/22 1:47:00 EDT, Route to Pharmacy Electronically, [facility] [place], [place] - [id number], Partial fill upon patient request if the [...] Care Nurse Name: Rufino Lloyd RN Position: [facility] RN Member Role: Primary Care Nurse Name: Cristina Carpenter RN Position: [facility] RN Member Role: Primary Care Nurse Name: Rosette Noriega RN Position: [facility] SN RN Member Role: Primary Care Nurse Name: Mary Hidalgo RN Position: [facility] AMB Nurse Member Role: Primary Care Nurse Name: Sissy Duran RN Position: [facility] AMB Nurse Member Role: Primary Care Nurse Name: Rohit Zavaleta RN Position: [facility] RN Member Role: Primary Care Nurse Name: Erlinda Hartman NP Position: [facility] Associate Professional Member Role: Primary Care Nurse Address: Address: [address] [place] [address] Name: Shante Solis RN Position: [facility] RN Member Role: Primary Care Nurse Name: Joshua Prakash RN Position: [facility] RN Member Role: Primary Care Nurse Name: Bettie Vanegas RN Position: [facility] SN RN Member Role: Primary Care Nurse Name: Jay Marroquin RN Position: [facility] RN Member Role: Primary Care Nurse Name: Adrianna Church RN Position: [facility] RN Member Role: Primary Care Nurse Name: Sue Purdy RN Position: [facility] RN Member Role: Primary Care Nurse Name: Hector Perez RN Position: [facility] ED RN W/OE and Tasks Member Role: Primary Care Nurse Name: Aleena Vizcaino RN Position: [facility] RN Member Role: Primary Care Nurse Name: Kacey Wilhelm RN Position: [facility] RN Member Role: Primary Care Nurse Name: Leslie Malloy RN Position: [facility] RN Member Role: Primary Care Nurse Name: Yesenia Hu LPN Position: [facility] RN Member Role: Primary Care Nurse Name: Joaquina Herrera RN Position: [facility] RN Member Role: Primary Care Nurse Name: Diego Bell RN Position: [facility] RN Member Role: Primary Care Nurse Name: Ese Grey Position: [facility] RN Member Role: Primary Care Nurse Name: Chela Najera RN Position: [facility] RN Member Role: Primary Care Nurse Name: Tootie Gonzalez RN Position: [facility] RN Member Role: Primary Care Nurse Name: Nancy Monte RN Position: [facility] RN Member Role: Primary Care Nurse Name: Marilee Starkey Position: [facility] RN Member Role: Primary Care Nurse Name: Silvina Dodd RN Position: [facility] RN Member Role: Primary Care Nurse Name: Flaco Clifford DO Position: [facility] Renal MD Member Role: Lifetime Consulting Physician Address: Address: [address] [place], [place] [address] [place] [address]- Name: Marilee Richardson RN Position: [facility] RN Member Role: Primary Care Nurse Name: Rufino Johnson RN Position: [facility] RN Member Role: Primary Care Nurse Name: Judson Larry Position: [facility] RN Member Role: Primary Care Nurse Name: Jovita Camargo RN Position: [facility] RN Member Role: Primary Care Nurse Name: Bruna Pizarro Position: [facility] RN Member Role: Primary Care Nurse Name: Ju Zhu Position: [facility] RN Member Role: Primary Care Nurse Name: Ester Palomares Position: [facility] RN Member Role: Primary Care Nurse Name: Emma Colbert RN Position: [facility] RN Member Role: Primary Care Nurse Name: Hallie Gambino RN Position: [facility] Onco RN Member Role: Primary Care Nurse Name: Maya Ambriz RN Position: [facility] RN Member Role: Primary Care Nurse Name: Bhavna Rendon LPN Position: [facility] RN Member Role: Primary Care Nurse Name: Luis Burton RN Position: [facility] RN Member Role: Primary Care Nurse Name: Jaki Bishop MD Position: [facility] Physician - Primary Care Member Role: PCP Address: Address: [address] [place] [id number]- Name: Lucian Krause RN Position: [facility] RN Member Role: Primary Care Nurse Name: Misty Tariq Position: [facility] RN Member Role: Primary Care Nurse Name: Isaiah Combs RN Position: [facility] RN Member Role: Primary Care Nurse Name: Leslie Ward RN Position: [facility] RN Member Role: Primary Care Nurse Name: Jacki Gomes RN Position: [facility] RN Member Role: Primary Care Nurse Name: Derek Smith RN Position: [facility] RN Member Role: Primary Care Nurse Name: Perri Smith RN Position: [facility] RN Member Role: Primary Care Nurse Name: Mar Brothers RN Position: [facility] RN Member Role: Primary Care Nurse Name: Ivette Shankar RN Position: [facility] RN Member Role: Primary Care Nurse Name: Laura Mary RN Position: [facility] SN RN Member Role: Primary Care Nurse Name: Mary Guillen RN Position: [facility] RN Member Role: Primary Care Nurse Name: Octavio Box RN Position: [facility] RN Member Role: Primary Care Nurse Name: Nazia Tapia RN Position: [facility] RN Member Role: Primary Care Nurse Name: Pat Jackson RN Position: [facility] RN Member Role: Primary Care Nurse Name: Caren Hernandez RN Position: [facility] RN Supv Member Role: Primary Care Nurse Name: Nely Wong RN Position: [facility] RN Member Role: Primary Care Nurse Name: Erica Brandon RN Position: [facility] RN Member Role: Primary Care Nurse Name: Adrianna Gonzalez RN Position: [facility] RN Member Role: Primary Care Nurse Name: Annmarie Feldman RN Position: [facility] PCO w/OE and EZ Script Member Role: Primary Care Nurse Name: Chinyere Espinoza RN Position: [facility] RN Member Role: Primary Care Nurse Name: Teresita Diallo RN Position: [facility] RN Member Role: Primary Care Nurse Name: Tennille Mcgarry RN Position: [facility] Hospital Finished Metal Repairer Member Role: Primary Care Nurse Name: Vicky Salazar RN Position: [facility] RN Member Role: Primary Care Nurse Name: Spencer Jameson RN Position: [facility] RN Member Role: Primary Care Nurse Name: Jalen Mullins Position: [facility] RN Member Role: Primary Care Nurse Care Team Related Persons Name: MARYANNE KELLER Address: [address] [place] [address] Name: MARYANNE KELLER Address: home [address] [place] [id number] Name: MARYANNE KELLER JR Address: home [address] [place] [address] Name: GEORGIA KELLER Address: [place] [address] Name: BALDEV POLANCO Address: [place] [address]
--- OUTSIDE RECORDS SUMMARY | 2023-02-09 22:47 | XMS_ITS | Continuity of Care Document ---
Author Name Unknown Organization [facility] Address [address] [place] [id number]- Care Team Providers Care Acid Filler Name Role Phone Dario HAYDEN, Jaki Primary Care Physician [place] [facility] [place] - 05/02/[address] [address]- [facility] Encounter Diagnosis Hyperglycemia(Final) - 05/02/19 Discharge Disposition: A-D/C Home Attending Physician: Toni Lu MD Admitting Physician: Toni Lu MD Referring Physician: Not on Staff, Referring [...] Given Patient Refuses 1Admin Note: VIS GIVEN [id number] 2Admin Note: VIS GIVEN 2008- 3Admin Note: vis 4Admin Note: vis 02/06/08 Medications acetaminophen 325 mg oral tablet 325 mg, 1, tablet, By Mouth, 4 times a day, PRN, No more than 4 tablets per day, # 60 tablet, Refills 11, Tot. Refills 11, Acute 10/05/19 12:00:00 EDT, for pain, 10/03/18 14:57:21 EDT, Route to Pharmacy Electronically, [id number]... Start Date: 10/03/18 Stop Date: 10/05/19 Status: [...] 05/02/19 13:58:00 EST, Route to Pharmacy Electronically, [place], [place] -, 166, cm, 04/30/19 10:41:00 EST, Height, 91.8, kg, 02/23/19 17... Start Date: 05/02/19 Status: Ordered docusate sodium 100 mg oral capsule 100 mg, 1, capsule, By Mouth, 2 times a day, # 60 capsule, Refills 11, Tot. Refills 11, Maintenance, 02/21/19 14:45:44 EST, Route to Pharmacy Electronically, [id number], [facility] [place], [place] -, 168, cm, 02/14/19... Start Date: 02/21/19 Stop Date: 02/16/20 Status: Ordered Ensure (Vanilla Flavor) Ensure (Vanilla Flavor), See Instructions, # 60 each, Refills 11, Tot. Refills 11, Maintenance, Drink 1 can BID. Diagnosis: Chronic Pancreatitis, Cirrhosis. ICD10 K86.1, K74.6, Fax to Anna( [facility], #[phone]), 12/06/17 13:28:49 EDT, Compound Start Date: 12/06/17 Status: Ordered gabapentin 100 mg oral capsule 200 mg, 2, capsule, By Mouth, 2 times a day, # 120 capsule, Refills 6, Tot. Refills 6, Maintenance,03/27/19 16:10:00 EST, Route to Pharmacy Electronically, [facility] #[id number], 166, cm, 03/27/19 15:26:00 EST, Height, 91.8, kg, 02/23/19 17:03:... Start Date: 03/27/19 Stop Date: 10/23/19 Status: Ordered Humalog Kwik Pen 100 units/mL subcutaneous injection See Instructions, 4 Units for bood sugar above 120 mg/dl and then add 2 Units for every 50 mg/dl rise above 120. Three times a day before meals., # 15 mL, 6 Refills, Maintenance, 03/30/19 16:20:00 EST, [facility] #[id number], 166, cm, 03/27/19 1... Start Date: 03/30/19 Status: Ordered Lantus Solostar Pen 100 units/mL subcutaneous solution = 32 units, Subcutaneous Injection, Daily, Inject QAM., # 15 mL, 6 Refills, Maintenance, 03/30/19 16:23:00 EST, [facility] #[id number], 166, cm, 03/27/19 15:26:00 EST, Height, 91.8, kg, 02/23/1917:03:00 EST, Dry Weight Start Date: 03/30/19 Stop Date: 10/26/19 Status: Ordered MiraLax oral powder for reconstitution = 17 Gm, By Mouth, 2 times a day, PRN Other, dissolve in water before taking. goal 2-3 bowel movements daily, # 527 Gm, 0 Refills, Maintenance, 03/27/19 17:13:00 EST, REC Powder, [facility]#[id number], 17 Gm By Mouth 2 times a [...] TABLET BY MOUTH DAILY FOR STOMACH ACID, [facility] #[id number] Start Date: 11/28/18 Status: Ordered Pen [place], 31 G x 8 mm BD [...] Attn Dr. Mariano Andrade, Outpatient Psychiatry, at [phone]., See Instructions, # 1 application, Refills 0, [...] 04/20/19 10:38:00 EST, Route to Pharmacy Electronically, [facility] #[id number], 166, cm, 04/20/19 10:17:00 EST, Height, 91.8, kg, 02/23/19 17:03:00 EST, . 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 [facility] [phone](Confirmed) Active History of cholecystectomy(Confirmed) Active Hypertension(Confirmed) Active Incisional hernia(Confirmed) Active Nicotine dependence(Confirmed) Active Obesity (BMI 30.0-34.9)(Confirmed) Active Pulmonary HTN, Severe(Confirmed) Active Steatohepatitis (w/Stage III Fibrosis, Liver Biopsy 05/2012)(Confirmed) Active Heart failure with reduced e jection fraction(Confirmed) Active Results Radiology Reports * Exam Date Time Procedure Performing Provider Status 05/02/19 3:44 PM Chest 2 Views Frontal and Lat Galen Velez; Angelo (Verified) Notes: (Chest 2 Views Frontal and Lat) Reason For Exam: Shortness of Breath, Fever;Other: RESULT: Chest 2 Views Frontal and Lat Examination: Chest performed on 05/02/2019. History: Shortness of breath. Fever. Findings: Frontal and lateral views of the chest are compared to a prior study dated 02/27/2019. The cardiac and mediastinal silhouettes are within normal limits. The lungs are clear. The osseous and soft tissue structures are unremarkable. Embolization coils within the upper abdomen are noted. Impression: There is no acute cardiopulmonary disease. WSN: [id number] Dictated By: Jackelin Colvin MD Dictated Date/Time: 05/02/19 3:55 pm Reviewed By: Jackelin Colvin MD Signed By: Jackelin Colvin MD Signed Date/Time: 05/02/19 3:55 pm Transcribed By: YAIR Transcribed Date/Time: 05/02/19 3:54 pm Vital Signs Most recent to oldest [Reference Range]: 1 2 Oxygen Saturation [94-100 %] 96 % (05/02/19 4:32 PM) 100 % (05/02/19 2:39 PM) Pulse Rate [55-90 bpm] 92 bpm *H* (05/02/19 4:32 PM) 96 bpm *H* (05/02/19 2:39 PM) Blood Pressure [90-138/55-84 mm Hg] 123/ 88mm Hg (05/02/19 4:32 PM) 115/78mm Hg (05/02/19 2:39 PM) Respiratory Rate [16-30 br/min] 16 br/mi n (05/02/19 4:32 PM) 16 br/min (05/02/19 2:39 PM) Temperature [96.8-100.4 DegF] 97.7 DegF (05/02/19 4:32 PM) 97.7 DegF (05/02/19 2:39 PM) Mode of Delivery (Oxygen) Room air (05/02/19 4:32 PM) Room air (05/02/19 2:39 PM) Blood pressure sites Arm, left (05/02/19 4:32 PM) Arm, right (05/02/19 2:39 PM) Temperature Route Oral (05/02/19 4:32 PM) Oral (05/02/19 2:39 PM) Social History Social History Type Response Tobacco Use: 4 or less cigar ettes(less than 1/4 pack)/day in last 30 days. Started at age: 15 Years. Sex
--- OUTSIDE RECORDS SUMMARY | 2023-02-09 22:48 | XMS_ITS | Continuity of Care Document ---
Author Name Unknown Organization [facility] Address [address] [place] [address]- Care Team Providers Care Scientific Illustrator Name Role Phone Jaki [place] MD Primary Care Physician Encounter [facility] Date(s): 02/02/22 - 03/04/[address] [address]- Allergies, Adverse Reactions, Alerts Substance Reaction Severity [...] to COVID vaccine 2Admin Note: VIS GIVEN [id number] 3Admin Note: VIS GIVEN 2008- 4Admin Note: [...] 02/02/22 9:36:00 EST, Route to Pharmacy Electronically, [facility] [id number], Partial fill upon patient request if the prescri... Start Date: 02/02/22 Status: Ordered cloNIDine 0.1 mg oral tablet 0.05 mg, 0.5, tablet, By Mouth, Daily, # 15 tablet, Refills 0, Tot. Refills 0, Maintenance, 02/02/22 9:36:00 EST, Route to Pharmacy Electronically, [facility] [id number], Partial fill upon patient request if the prescription i... Start Date: 02/02/22 Status: Ordered Coreg 6.25 mg oral tablet 6.25 mg, 1, tablet, By Mouth, 2 times a day, # 60 tablet, Refills 0, Tot. Refills 0, Maintenance, 02/02/22 9:36:00 EST, Route to Pharmacy Electronically, [facility] [id number], Partial fill upon patient request if the prescrip... Start Date: 02/02/22 Status: Ordered Creon 12,000 units oral delayed release capsule 1 capsule, By Mouth, 3 times a day, # 90 capsule, 0 Refills, Maintenance, 02/02/22 9:39:00 EST, EC Capsule, [place], [place] - [id number], Partial fill upon patient request if the prescription is for a schedule II opioid drug., 167, c... Start Date: 02/02/22 Status: Ordered divalproex sodium 500 mg oral enteric coated tablet 1 tablet = 500 mg, By Mouth, 2 times a day, # 60 tablet, 0 Refills, Maintenance, 02/02/22 9:36:00 EST, Tablet, [facility] [id number], Partial fill upon patient request if theprescription is for a schedule II opioid drug., 167... Start Date: 02/02/22 Status: Ordered folic acid 1 mg oral tablet 1 mg, 1, tablet, By Mouth, Daily, # 30 tablet, Refills 1, Tot. Refills 1, Maintenance, 02/02/22 9:36:00 EST, Route to Pharmacy Electronically, [facility] [id number], Partial fill upon patient request if the [...] 02/02/22 9:37:00 EST, Route to Pharmacy Electronically, [facility] [id number], Partialfill upon patient request if the prescription is fo... Start Date: 02/02/22 Status: Ordered melatonin 3 mg oral tablet 1 tablet = 3 mg, By Mouth, Daily at bedtime, PRN Insomnia, # 30 tablet, 0 Refills, Maintenance, 02/02/22 9:37:00 EST, Tablet, [facility] [id number], Partial fill upon patientrequest if the prescription [...] 02/02/22 9:39:00 EST, Route to Pharmacy Electronically, [facility] [id number],Partial fill upon patient request if the prescripti... Start Date: 02/02/22 Status: Ordered torsemide 20 mg oral tablet 1 tablet = 20 mg, By Mouth, 2 times a day, # 60 tablet, 0 Refills, Maintenance, 02/02/22 9:40:00 EST, Tablet, [place], [place] - [id number], Partial fill upon patient request if the [...] Care Nurse Name: Lawrence Hendrix Position: [facility] Supv Member Role: Primary Care Nurse Name: Rufino Lloyd RN Position: S RN Member Role: Primary Care Nurse Name: Cristina Carpenter RN Position: [facility] RN Member Role: Primary Care Nurse Name: Rosette Noriega RN Position: [facility] SN RN Member Role: Primary Care Nurse Name: Mary Hidalgo RN Position: [facility] PCO RN Member Role: Primary Care Nurse Name: Sissy Duran RN Position: [facility] AMB Nurse Member Role: Primary Care Nurse Name: Rohit Zavaleta RN Position: [facility] RN Member Role: Primary Care Nurse Name: Erlinda Hartman NP Position: [facility] Associate Professional Member Role: Primary Care Nurse Address: Address: [address] [place] [address] Name: Jong Suazo RN Position: [facility] RN Supv Member Role: Primary Care Nurse Name: Shante Solis RN Position: [facility] RN Member Role: Primary Care Nurse Name: Bettie Vanegas RN Position: [facility] RN Member Role: Primary Care Nurse Name: Jay Marroquin RN Position: [facility] RN Member Role: Primary Care Nurse Name: Sue Purdy RN Position: [facility] RN Member Role: Primary Care Nurse Name: Hector Perez RN Position: [facility] RN Member Role: Primary Care Nurse Name: Aleena Vizcaino RN Position: [facility] RN Member Role: Primary Care Nurse Name: Kacey Wilhelm RN Position: [facility] RN Member Role: Primary Care Nurse Name: Monalisa Barker Position: [facility] RN Member Role: Primary Care Nurse Name: Leslie Malloy RN Position: [facility] RN Member Role: Primary Care Nurse Name: Joaquina Herrera RN Position: [facility] RN Member Role: Primary Care Nurse Name: Diego Bell RN Position: [facility] RN Member Role: Primary Care Nurse Name: Ese Grey Position: [facility] RN Member Role: Primary Care Nurse Name: Chela Najera RN Position: [facility] RN Member Role: Primary Care Nurse Name: Tootie Gonzalez RN Position: [facility] RN Member Role: Primary Care Nurse Name: Nancy Monte RN Position: [facility] RN Member Role: Primary Care Nurse Name: Marilee Starkey Position: [facility] RN Member Role: Primary Care Nurse Name: Silvina Dodd RN Position: [facility] RN Member Role: Primary Care Nurse Name: Flaco Clifford DO Position: [facility] Renal MD Member Role: Lifetime Consulting Physician Address: Address: [address] [place], [place] [address] [place] [address]- Name: Marilee Richardson RN Position: [facility] RN Member Role: Primary Care Nurse Name: Rufino Johnson RN Position: [facility] RN Member Role: Primary Care Nurse Name: Jovita Camargo RN Position: [facility] RN Member Role: Primary Care Nurse Name: Ju Zhu Position: [facility] RN Member Role: Primary Care Nurse Name: Ester Palomares Position: [facility] RN Member Role: Primary Care Nurse Name: Emma Colbert RN Position: [facility] RN Supv Member Role: Primary Care Nurse Name: Hallie Gambino RN Position: [facility] Onco RN Member Role: Primary Care Nurse Name: Maya Ambriz RN Position: [facility] RN Member Role: Primary Care Nurse Name: Luis Burton RN Position: [facility] RN Member Role: Primary Care Nurse Name: Jaki [place] MD Position: [facility] Primary Care Physician Member Role: PCP Address: Address: [address] [place] [id number]- Name: Leslie Ward RN Position: [facility] RN Member Role: Primary Care Nurse Name: Jacki Gomes RN Position: [facility] RN Member Role: Primary Care Nurse Name: Ximena Saab RN Position: [facility] RN Member Role: Primary Care Nurse Name: Ivette Shankar RN Position: [facility] RN Supv Member Role: Primary Care Nurse Name: Laura Mary RN Position: [facility] SN RN Member Role: Primary Care Nurse Name: Octavio Box RN Position: [facility] RN Member Role: Primary Care Nurse Name: Caren Hernandez RN Position: [facility] RN Supv Member Role: Primary Care Nurse Name: Kinza De La Cruz RN Position: [facility] RN Member Role: Primary Care Nurse Name: Veronica Queen RN Position: [facility] RN Member Role: Primary Care Nurse Name: Nely Wong RN Position: [facility] RN Member Role: Primary Care Nurse Name: Erica Brandon RN Position: [facility] RN Member Role: Primary Care Nurse Name: Adrianna Gonzalez RN Position: [facility] RN Member Role: Primary Care Nurse Name: Annmarie Feldman RN Position: [facility] PCO w/OE and EZ Script Member Role: Primary Care Nurse Name: Chinyere Espinoza RN Position: [facility] RN Member Role: Primary Care Nurse Name: Imani RAMIREZ, Teresita Reyes Position: [facility] RN Member Role: Primary Care Nurse Name: Tennille Mcgarry RN Position: [facility] Hospital Guest Associate Member Role: Primary Care Nurse Name: Vicky Salazar RN Position: [facility] RN Member Role: Primary Care Nurse Name: Jalen Mullins Position: [facility] RN Member Role: Primary Care Nurse Care Team Related Persons Name: MARYANNE KELLER Address: home [address] [place] [address] Name: MARYANNE KELLER Address: home [address] [place] [id number] Name: GEORGIA KELLER Address: [place] [address] Name: BALDEV POLANCO Address: [place] [address]
--- OUTSIDE RECORDS SUMMARY | 2023-02-09 22:48 | XMS_ITS | Continuity of Care Document ---
Author Name Unknown Organization [facility] Address [address] [place] [address]- Care Team Providers Care Psychotherapist Counselor Name Role Phone Jaki [place] MD Primary Care Physician [facility]counter [facility] Date(s): 10/02/20 - 11/01/[address] [address] Allergies, Adverse Reactions, Alerts Substance Reaction Severity [...] to COVID vaccine 2Admin Note: VIS GIVEN [id number] 3Admin Note: VIS GIVEN 2008- 4Admin Note: [...] opioid drug. 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
--- OUTSIDE RECORDS SUMMARY | 2023-02-09 22:48 | XMS_ITS | Continuity of Care Document ---
Author Name Unknown Organization [facility] Address [address] [place] [address]- Care Team Providers Care Real Estate Professor Name Role Phone Jaki [place] MD Primary Care Physician Encounter [facility] [place] Date(s): 06/30/20 - 08/08/[address] [address]- Attending Physician: uLis Ho MD Admitting Physician: Luis Ho MD [...] Given Permanently Refused 1Admin Note: VIS GIVEN [id number] 2Admin Note: VIS GIVEN 2008-12 3Admin Note: vis 4Admin Note: vis 02/06/08 Medications acetaminophen 325 mg oral tablet 1, tablet, By Mouth, 4 times a day, PRN, not to exceed 4 TABLETS PER DAY. Not to exceed 2000 mg/day. PRN Pain, # 60 tablet, Refills 0, Tot. Refills 0, Maintenance, NEEDED, 07/22/20 10:39:00 EDT, Route to Pharmacy Electronically, [facility] -... Start Date: 07/22/20 Status: Ordered [...] 0 Refills, Maintenance, 04/16/20 11:06:00 EST, Tablet, [facility] [id number], Partial fill upon patient request if the prescription is for a schedule II opioid drug., 168,... Start Date: 04/16/20 Status: Ordered clozapine 50 mg oral tablet 3 tablet = 150 mg, By Mouth, Daily at bedtime, # 90 tablet, 0 Refills, Maintenance, 04/16/20 11:06:00 EST, Tablet, [place], [place] - [id number], Partial fill upon patient request ifthe prescription is for a schedule II opioid drug.,... Start Date: 04/16/20 Status: Ordered Comfort EZ Pen [place] 31 gauge x 5/16 Comfort EZ Pen [place] 31 gauge x 5/16 , See Instructions, [...] 05/26/20 14:41:00 EST, Route to Pharmacy Electronically, [facility] [id number], Partial fill upon patient request if the prescr... Start Date: 05/26/20 Stop Date: 11/22/20 Status: Ordered docusate sodium 100 mg oral capsule = 100 mg, By Mouth, 2 times a day, PRN Constipation., # 60 capsule, 5 Refills, Maintenance, 07/21/20 10:54:00 EDT, Capsule, [facility] [id number], Partial fill upon patient request if the [...] Maintenance,05/28/20 13:46:00 EST, Route to Pharmacy Electronically, [facility] [id number], Partial fill upon patient request if the [...] K86.1, K74.6, E11.65. Fax to [facility] ( [facility], #[phone]), 06/06/20 19... Start Date: 06/06/20 Status: Ordered [...] mL, 1 Refills, Maintenance, 04/16/20 11:07:00 EST, [place], [place] - [id number],... Start Date: 04/16/20 Status: Ordered lactulose 10 gm/15 ml oral syrup 30 mL, By Mouth, 2 times a day, # 581 mL, 3 Refills, Maintenance, 06/27/20 11:11:00 EDT, [place], [place] - [id number], 10, 30 mL By Mouth 2 times [...] 3 Refills, Maintenance, 07/29/20 10:17:00 EDT, Solution, [facility] [id number], 168, cm, 04/16/20 8:30:00 EST, Height, 98.7, kg, 03/22... Start Date: 07/29/20 Status: Ordered loratadine 10 mg oral tablet See Instructions, TAKE ONE TABLET BY MOUTH DAILY, # 30 tablet, Refills 5, Tot. Refills 5, 05/01/20 8:18:00 EST, Instructions Replace Required Details, Route to Pharmacy Electronically, [facility] [id number], 168, cm, 04/16/20... Start Date: 05/01/20 Status: Ordered multivitamin Multiple Vitamins oral tablet 1 tablet, By Mouth, Daily, # 90 tablet, 1 Refills, Maintenance, 05/26/20 13:28:00 EST, Tablet, [facility], [place] - [id number], 1 tablet By Mouth Daily, 168, cm, [...] 0 Refills, Maintenance, 04/16/20 11:08:00 EST, Gum, [place], [place] - [id number], Partial fill upon patient request if the [...] 5 Refills, Maintenance, 07/14/20 16:30:00 EDT, Tablet, [place], [place] - [id number], this is an increased, 1 tablet By Mouth 2 times a day,x30 days, 168, cm, 04/16/20 8:30:00 EST, Heigh... Start Date: 07/14/20 Stop Date: 01/10/21 Status: Ordered torsemide 20 mg oral tablet 1 tablet = 20 mg, By Mouth, Daily, # 30 tablet, 1 Refills, Maintenance, 04/16/20 11:09:00 EST, Tablet, [facility] [id number], Partial fill upon patient request if the prescription is for a schedule II opioid drug., 168, cm, ... Start Date: 04/16/20 Stop Date: 04/11/21 Status: Ordered Zenpep 10,000 units-32,000 units-42,000 units oral delayed release capsule 1 capsule, By Mouth, 3 times a day, # 90 capsule, 0 Refills, Maintenance, 04/16/20 11:09:00 EST, [place], [place] - [id number], 1 capsule By Mouth 3 times a [...] Active H/O tubal ligation(Confirmed) Active [facility]N/BH CP Box Chipper/Janet Pandey [phone](Confirmed) Active History of cholecystectomy(Confirmed) Active Hypertension(Confirmed) Active [...]
--- OUTSIDE RECORDS SUMMARY | 2023-02-09 22:48 | XMS_ITS | Continuity of Care Document ---
Author Name Unknown Organization [facility] Address [address] [place] [address]- Care Team Providers Care Pharmaceutical Development Technician Name Role Phone Jaki Bishop MD Primary Care Physician [phone] [place] [facility] [place] 04/22/22 - 06/11/[address] [address]- Attending Physician: Not on Staff, Attending MD [...] to COVID vaccine 2Admin Note: VIS GIVEN [id number] 3Admin Note: VIS GIVEN 2008- 4Admin Note: [...] 04/29/22 14:29:00 EST, Route to Pharmacy Electronically, [facility] [id number], Partial fill upon patient request if the prescr... Start Date: 04/29/22 Stop Date: 08/27/22 Status: Ordered cloNIDine 0.1 mg oral tablet 0.1 mg, 1, tablet, By Mouth, Daily, # 30 tablet, Refills 3, Tot. Refills 3, Maintenance, 04/29/22 14:29:00 EST, Route to Pharmacy Electronically, [facility] [id number], Partial fill upon patient request if the prescription is... Start Date: 04/29/22 Stop Date: 08/27/22 Status: Ordered Coreg 6.25 mg oral tablet 6.25 mg, 1, tablet, By Mouth, 2 times a day, # 60 tablet, Refills 3, Tot. Refills 3, Maintenance, 04/29/22 14:29:00 EST, Route to Pharmacy Electronically, [facility] [id number], Partial fill upon patient request if the prescri... Start Date: 04/29/22 Stop Date: 08/27/22 Status: Ordered Creon 12,000 units oral delayed release capsule 1 capsule, By Mouth, 3 times a day, # 90 capsule, 3 Refills, Maintenance, 04/29/22 14:37:00 EST, ECCapsule, [facility] [id number], Partial fill upon patient request if the prescription is for a schedule II opioid drug., 167,... Start Date: 04/29/22 Status: Ordered diphenhydrAMINE 25 mg oral tablet 1 tablet = 25 mg, By Mouth, 3 times a day, for 30 days, PRN Agitation, # 90 tablet, 1 Refills, Acute 06/28/22 15:55:00 EDT, 04/29/22 15:55:00 EST, Tablet, [facility] [id number], Partial fill upon patient request if the prescri... Start Date: 04/29/22 Stop Date: 06/28/22 Status: Ordered divalproex sodium 500 mg oral enteric coated tablet 1 tablet = 500 mg, By Mouth, 2 times a day, # 60 tablet, 3 Refills, Maintenance, 04/29/22 14:33:00 EST, Tablet, [facility] [id number], Partial fill upon patient request if the prescription is for a schedule II opioid drug., 16... Start Date: 04/29/22 Stop Date: 08/27/22 Status: Ordered folic acid 1 mg oral tablet 1, tablet, By Mouth, Daily, # 30 tablet, Refills 1, Maintenance, 06/01/22 16:34:00 EDT, Route to Pharmacy Electronically, [facility], 167, cm, 03/25/22 3:14:00 EST, Height, [...] 0 Refills, Maintenance, 04/08/22 16:16:00 EST, Liquid, [place], [place] - [id number], Partial fill upon patient request if the [...] mL, 1 Refills, Maintenance, 06/03/22 16:20:00 EDT, [place], [place] - [id number], 20, TAKE 30mls BY MOUTH two (2) times a day, 167, cm, 03/25/22 3:14:00 EST, Height, 1... Start Date: 06/03/22 Status: Ordered Lantus Solostar Pen 100 units/mL subcutaneous solution = 6 units, Subcutaneous Injection, Daily in AM, # 10 mL, 2 Refills, Maintenance, 04/29/22 14:34:00 EST, Solution, [facility] [id number], Partial fill upon patient request if the prescription is for a schedule II opioid drug.,... Start Date: 04/29/22 Status: Ordered multivitamin Multiple Vitamins oral tablet 1 tablet, By Mouth, Daily, # 90 tablet, 1 Refills, Maintenance, 04/02/22 16:44:00 EST, Tablet, [facility] [id number], Partial fill upon patient request if the [...] 04/29/22 14:39:00 EST, Route to Pharmacy Electronically, [facility], [place] - [id number], Partial fill upon patient request if the prescription... Start Date: 04/29/22 Stop Date: 08/27/22 Status: Ordered risperiDONE 3 mg oral tablet 3 mg, 1, tablet, By Mouth, Daily at bedtime, # 30 tablet, Refills 3, Tot. Refills 3, Maintenance, 04/29/22 14:39:00 EST, Route to Pharmacy Electronically, [facility] [id number], Partial fill upon patient request if the prescri... Start Date: 04/29/22 Status: Ordered thiamine 100 mg oral tablet 100 mg, 1, tablet, By Mouth, Daily, for 30 days, # 30 tablet, Refills 3, Tot. Refills 3, Acute 08/27/22 14:40:00 EDT, 04/29/22 14:40:00 EST, Route to Pharmacy Electronically, [place], [place] - [id number], Partial fill upon patient re... Start Date: 04/29/22 Stop Date: 08/27/22 Status: Ordered tiotropium 2.5 mcg/inh inhalation aerosol 2 puffs, Inhalation, Daily, # 1 each, 0 Refills, Maintenance, 03/25/22 12:09:00 EST, Inhaler, [facility], Partial fill upon patient request if [...] Team Personnel Name: Lawrence Hendrix Position: [facility] RN Supv Member Role: Primary Care Nurse Name: Rufino Lloyd RN Position: [facility] RN Member Role: Primary Care Nurse Name: Cristina Carpenter RN Position: [facility] RN Member Role: Primary Care Nurse Name: Rosette Noriega RN Position: [facility] SN RN Member Role: Primary Care Nurse Name: Mary Hidalgo RN Position: [facility] PCO RN Member Role: Primary Care Nurse Name: Sissy Duran RN Position: [facility] AMB Nurse Member Role: Primary Care Nurse Name: Rohit Zavaleta RN Position: [facility] RN Member Role: Primary Care Nurse Name: Erlinda Hartman NP Position: [facility] Associate Professional Member Role: Primary Care Nurse Address: Address: [address] [place] [address] Name: Jong Suazo RN Position: [facility] RN Supv Member Role: Primary Care Nurse Name: Shante Solis RN Position: [facility] RN Member Role: Primary Care Nurse Name: Joshua Prakash RN Position: [facility] RN Member Role: Primary Care Nurse Name: Bettie Vanegas RN Position: [facility] SN RN Member Role: Primary Care Nurse Name: Jay Marroquin RN Position: [facility] RN Member Role: Primary Care Nurse Name: Adrianna Church RN Position: [facility] RN Member Role: Primary Care Nurse Name: Sue Purdy RN Position: [facility] RN Member Role: Primary Care Nurse Name: Hector Perez RN Position: [facility] RN Member Role: Primary Care Nurse Name: Aleena Vizcaino RN Position: [facility] RN Member Role: Primary Care Nurse Name: Kacey Wilhelm RN Position: [facility] RN Member Role: Primary Care Nurse Name: Monalisa Barker LPN Position: [facility] AMB Nurse Member Role: Primary Care Nurse Name: Leslie Malloy RN Position: [facility] RN Member Role: Primary Care Nurse Name: Yesenia Hu LPN Position: [facility] RN Member Role: Primary Care Nurse Name: Joaquina Herrera RN Position: [facility] RN Member Role: Primary Care Nurse Name: Diego Bell RN Position: [facility] RN Member Role: Primary Care Nurse Name: Ese Grey Position: [facility] RN Member Role: Primary Care Nurse Name: Chela Najera RN Position: [facility] RN Member Role: Primary Care Nurse Name: Tootie Gonzalez RN Position: [facility] RN Member Role: Primary Care Nurse Name: Nancy Monte RN Position: [facility] RN Member Role: Primary Care Nurse Name: Marilee Starkey Position: [facility] RN Member Role: Primary Care Nurse Name: Silvina Dodd RN Position: [facility] RN Member Role: Primary Care Nurse Name: Flaco Clifford DO Position: [facility] Renal MD Member Role: Lifetime Consulting Physician Address: Address: [address] [place], [place] [address] [address] Name: Marilee Richardson RN Position: [facility] RN Member Role: Primary Care Nurse Name: Rufino Johnson RN Position: [facility] RN Member Role: Primary Care Nurse Name: Jovita Camargo RN Position: [facility] RN Member Role: Primary Care Nurse Name: Ju Zhu Position: [facility] RN Member Role: Primary Care Nurse Name: Ester Palomares Position: [facility] RN Member Role: Primary Care Nurse Name: Emma Colbert RN Position: [facility] RN Supv Member Role: Primary Care Nurse Name: Hallie Gambino RN Position: [facility] Onco RN Member Role: Primary Care Nurse Name: Maya Ambriz RN Position: [facility] RN Member Role: Primary Care Nurse Name: Bhavna Rendon LPN Position: [facility] RN Member Role: Primary Care Nurse Name: Luis Burton RN Position: [facility] RN Member Role: Primary Care Nurse Name: Jaki Bishop MD Position: [facility] Primary Care Physician Member Role: PCP Address: Address: [address] [place] [id number]- Name: Lucian Krause RN Position: [facility] RN Member Role: Primary Care Nurse Name: Leslie Ward RN Position: [facility] RN Member Role: Primary Care Nurse Name: Jacki Gomes RN Position: [facility] RN Member Role: Primary Care Nurse Name: Ximena Saab RN Position: [facility] RN Member Role: Primary Care Nurse Name: Ivette Shankar RN Position: [facility] RN Supv Member Role: Primary Care Nurse Name: Laura Mary RN Position: [facility] SN RN Member Role: Primary Care Nurse Name: Octavio Box RN Position: [facility] RN Member Role: Primary Care Nurse Name: Nazia Tapia RN Position: [facility] RN Member Role: Primary Care Nurse Name: Caren Hernandez RN Position: [facility] RN Supv Member Role: Primary Care Nurse Name: Veronica Queen RN Position: [facility] RN Member Role: Primary Care Nurse Name: Perri Bryant RN Position: [facility] RN Member Role: Primary Care Nurse Name: Alba Toro RN Position: [facility] RN Member Role: Primary Care Nurse Name: Nely Wong RN Position: [facility] RN Member Role: Primary Care Nurse Name: Erica Brandon RN Position: [facility] RN Member Role: Primary Care Nurse Name: Adrianna Gonzalez RN Position: [facility] RN Member Role: Primary Care Nurse Name: Annmarie Feldman RN Position: [facility] PCO w/OE and EZ Script Member Role: Primary Care Nurse Name: Chinyere Espinoza RN Position: [facility] RN Member Role: Primary Care Nurse Name: Teresita Diallo RN Position: [facility] RN Member Role: Primary Care Nurse Name: Tennille Mcgarry RN Position: [facility] Hospital Labor Relations Worker Member Role: Primary Care Nurse Name: Vicky Salazar RN Position: [facility] RN Member Role: Primary Care Nurse Name: Spencer Jameson RN Position: [facility] RN Member Role: Primary Care Nurse Name: Jalen Mullins Position: [facility] RN Member Role: Primary Care Nurse Care Team Related Persons Name: MARYANNE KELLER Address: home [address] [id number] Name: MARYANNE KELLER Address: home [address] [place] [address] [place] [address] Name: MARYANNE KELLER JR Address: home [address] [place] [address] Name: GEORGIA KELLER Address: [place] [address] Name: BALDEV POLANCO Address: [place] [address]
--- OUTSIDE RECORDS SUMMARY | 2023-02-09 22:48 | XMS_ITS | Continuity of Care Document ---
Author Name Unknown Organization [facility] Address [address] [place] [address]- Care Team Providers Care Childbirth Educator Name Role Phone Dario HAYDEN, Jaki Primary Care Physician Encounter [facility] Date(s): 02/02/21 - 03/04/[address] [address] Allergies, Adverse Reactions, Alerts Substance Reaction [...] to COVID vaccine 2Admin Note: VIS GIVEN [id number] 3Admin Note: VIS GIVEN 2008- 4Admin Note: [...] to Pharmacy Electronically, [facility] [id number], Partial fill upon patient request if the [...] 02/06/21 19:54:00 EST, [facility] [id number], Partial fill upon patient request if the prescription is for a schedule II opioid d... Start Date: 02/06/21 Stop Date: 08/05/21 Status: Ordered loratadine 10 mg oral tablet 10 mg, 1, tablet, By Mouth, Daily, # 30 tablet, Refills 0, Tot. Refills 0, Maintenance, 11/28/20 9:25:00 EDT, Route to Pharmacy Electronically, [facility], Partial fill upon patient [...] a day, # 60 tablet, 0 Refills, [facility], 167.64, cm, 11/27/20 22:30:00 EDT, Height, 98.5, kg, 10/22/20 17:50:00 EDT, Dry Weight Start Date: 01/08/21 Status: Ordered Nicoderm C-Q Clear 14 mg/24 hr transdermal film, extended release 1 patch, Topically, Daily, for 30 days, # 30 patch, 0 Refills, Acute 03/18/21 13:06:00 EST, 02/16/21 13:06:00 EST, Patch, [facility], Partial fill upon patient request if the prescription is for a schedule II opioid drug., 166.6, cm, ... Start Date: 02/16/21 Stop Date: 03/18/21 Status: Ordered Nicotine 2 mg gum = 2 mg, Chew, Every 2 hours, PRN Other, for 6 week(s), Nicotine Cravings, # 40 each, 1 Refills, Acute 05/11/21 13:06:00 EST, 02/16/21 13:06:00 EST, Gum, [facility], Partial fill upon patient request [...] 0 Refills, Maintenance,02/26/21 18:23:00 EST, CR Capsule, [facility] 3, Partial fill upon patient request [...] 0 Refills, Maintenance, 11/28/20 9:27:00 EDT, Nasal [place], [facility] 3, Partial fill upon patient request [...] 5 Refills, Maintenance, 02/06/21 19:56:00 EST, Tablet, [place], [place] - [id number], Partial fill upon patient request if the [...] Active H/O tubal ligation(Confirmed) Active BHN/ CP Legal Billing Analyst/Janet salvador [facility] [phone](Confirmed) Active History of cholecystectomy(Confirmed) Active Hypertension(Confirmed) Active [...]
--- OUTSIDE RECORDS SUMMARY | 2023-02-09 22:48 | XMS_ITS | Continuity of Care Document ---
Author Name Unknown Organization [facility] Address [address] [place] [address]- Care Team Providers Care Battery Container Tester Name Role Phone Jaki Bishop MD Primary Care Physician Encounter [facility] Date(s): 05/02/20 - 06/01/[address] [address]- Allergies, Adverse Reactions, Alerts Substance Reaction Severity [...] Given Permanently Refused 1Admin Note: VIS GIVEN [id number] 2Admin Note: VIS GIVEN 2008-12 3Admin Note: vis 4Admin Note: vis 02/06/08 Medications acetaminophen 325 mg oral tablet 1, tablet, By Mouth, 4 times a day, PRN, not to exceed 4 TABLETS PER DAY, # 60 tablet, Refills 0, Tot. Refills 0, Acute, NEEDED, 05/28/20 13:40:00 EST, Route to Pharmacy Electronically, [facility], 168, cm, 04/16/20 8:30:00 EST, Height, 98.7,... [...] 0 Refills, Maintenance, 04/16/20 11:06:00 EST, Tablet, [facility] [id number], Partial fill upon patient request if the prescription is for a schedule II opioid drug., 168,... Start Date: 04/16/20 Status: Ordered clozapine 50 mg oral tablet 3 tablet = 150 mg, By Mouth, Daily at bedtime, # 90 tablet, 0 Refills, Maintenance, 04/16/20 11:06:00 EST, Tablet, [facility] [id number], Partial fill upon patient request ifthe prescription is for a schedule II opioid drug.,... Start Date: 04/16/20 Status: Ordered Coreg 12.5 mg oral tablet 12.5 mg, 1, tablet, By Mouth, 2 times a day, # 180 tablet, Refills 1, Tot. Refills 1, Maintenance, 05/26/20 14:41:00 EST, Route to Pharmacy Electronically, [facility], [place] - [id number], Partial fill upon patient request if the prescr... Start Date: 05/26/20 Stop Date: 11/22/20 Status: Ordered docusate sodium 100 mg oral capsule = 100 mg, By Mouth, 2 times a day, PRN Constipation., # 60 capsule, 3 Refills, Maintenance, 02/29/20 15:13:00 EST, Capsule, [facility] [id number], Partial fill upon patient request if the [...] Maintenance,05/28/20 13:46:00 EST, Route to Pharmacy Electronically, [facility] [id number], Partial fill upon patient request if the [...] mL, 1 Refills, Maintenance, 04/16/20 11:07:00 EST, [place], [place] - [id number],... Start Date: 04/16/20 Status: Ordered lactulose 10 gm/15 ml oral syrup 30 mL, By Mouth, 2 times a day, # 581 mL, 0 Refills, Acute, 03/25/20 11:49:00 EST, [facility],10, TAKE 30 ML BY MOUTH 2 [...] Replace Required Details, Route to Pharmacy Electronically, [facility] [id number], 168, cm, 04/16/20... Start Date: 05/01/20 Status: [...] 1 Refills, Maintenance, 05/26/20 13:28:00 EST, Tablet, [facility], [facility] [id number], 1 tablet By Mouth Daily, 168, cm, [...] 0 Refills, Maintenance, 04/16/20 11:08:00 EST, Gum, [facility] [id number], Partial fill upon patient request if the [...] 5 Refills, Maintenance, 03/05/20 16:50:00 EST, Tablet, [facility] [id number], this is an increased, 1 tablet By [...] 1 Refills, Maintenance, 04/16/20 11:09:00 EST, Tablet, [facility] [id number], Partial fill upon patient request if the prescription is for a schedule II opioid drug., 168, cm, 01... Start Date: 04/16/20 Stop Date: 04/11/21 Status: Ordered Zenpep 10,000 units-32,000 units-42,000 units oral delayed release capsule 1 capsule, By Mouth, 3 times a day, # 90 capsule, 0 Refills, Maintenance, 04/16/20 11:09:00 EST, [facility] [id number], 1 capsule By Mouth 3 times a [...] Active H/O tubal ligation(Confirmed) Active BHN/ CP Freezing Machine Operator/Janet salvador [facility] [phone](Confirmed) Active History of cholecystectomy(Confirmed) Active Hypertension(Confirmed) Active [...]
--- OUTSIDE RECORDS SUMMARY | 2023-02-09 22:48 | XMS_ITS | Continuity of Care Document ---
Author Name Unknown Organization [facility] ter Address [address] [place] [address]- Care Team Providers Care Cell Reliner Name Role Phone Jaki Bishop MD Primary Care Physician [phone] [place]counter [facility] Date(s): 07/01/22 - 08/14/[address] [id number] Attending Physician: Yosvany Turner MD Admitting Physician: Yosvany Turner MD Referring Physician: Jaki Bishop MD Allergies, [...] to COVID vaccine 2Admin Note: VIS GIVEN [id number] 3Admin Note: VIS GIVEN 2008-12 4Admin Note: vis 5Admin Note: vis 02/06/08 Medications albuterol 90 mcg/inh inhalation powder 2 puffs, Inhalation, Every 4 hours, PRN as needed, PRN Wheezing, # 1 each, 1 Refills, Maintenance, 06/28/22 14:49:00 EDT, Powder, [facility] [id number], Partial fill upon patient request if the [...] 07/16/22 16:04:00 EDT, Route to Pharmacy Electronically, [facility] [id number], Partialfill upon patient request if the prescription is fo... Start Date: 07/16/22 Status: Ordered benztropine 1 mg oral tablet 0.5 mg, 0.5, tablet, By Mouth, 2 times a day, # 30 tablet, Refills 3, Tot. Refills 3, Maintenance, 04/29/22 14:29:00 EST, Route to Pharmacy Electronically, [facility] [id number], Partial fill upon patient request if the [...] Replace Required Details, Route to Pharmacy Electronically, [facility], 160, cm, 07/26/22 12:51:... Start Date: 07/30/22 Status: Ordered cloNIDine 0.1 mg oral tablet 0.1 mg, 1, tablet, By Mouth, Daily, # 30 tablet, Refills 3, Tot. Refills 3, Maintenance, 04/29/22 14:29:00 EST, Route to Pharmacy Electronically, [place], [place] - [id number], Partial fill upon patient request if the prescription is... Start Date: 04/29/22 Stop Date: 08/27/22 Status: Ordered Creon 12,000 units oral delayed release capsule 1 capsule, By Mouth, 3 times a day, # 90 capsule, 3 Refills, Maintenance, 04/29/22 14:37:00 EST, ECCapsule, [place], [place] - [id number], Partial fill upon patient request if the [...] 06/01/22 16:34:00 EDT, Route to Pharmacy Electronically, [facility], 167, cm, 03/25/22 3:14:00 EST, Height, [...] mL, 1 Refills, Maintenance, 07/22/22 15:51:00 EDT, [facility], 15, TAKE 30 ML BY MOUTH two (2) times a day, 160, cm, 07/21/22 10:57:00 EDT, Height, 89.2, kg, 07/21/22 3:29:00 EDT, Dry Weight Start Date: 07/22/22 Status: Ordered Lantus Solostar Pen 100 units/mL subcutaneous solution = 6 units, Subcutaneous Injection, Daily in AM, # 10 mL, 2 Refills, Maintenance, 04/29/22 14:34:00 EST, Solution, [facility] [place], [place] - [id number], Partial fill upon patient request if the prescription is for a schedule II opioid drug.,... Start Date: 04/29/22 Status: Ordered multivitamin Multiple Vitamins oral tablet 1 tablet, By Mouth, Daily, # 90 tablet, 1 Refills, Maintenance, 04/02/22 16:44:00 EST, Tablet, [facility] [id number], Partial fill upon patient request if the [...] 04/29/22 14:39:00 EST, Route to Pharmacy Electronically, [facility] [id number], Partial fill upon patient request if the prescription... Start Date: 04/29/22 Stop Date: 08/27/22 Status: Ordered risperiDONE 3 mg oral tablet 3 mg, 1, tablet, By Mouth, Daily at bedtime, # 30 tablet, Refills 3, Tot. Refills 3, Maintenance, 04/29/22 14:39:00 EST, Route to Pharmacy Electronically, [facility] MD Yang [id number], Partial fill upon patient request if the prescri... Start Date: 04/29/22 Status: Ordered thiamine 100 mg oral tablet 100 mg, 1, tablet, By Mouth, Daily, for 30 days, # 30 tablet, Refills 3, Tot. Refills 3, Acute 08/27/22 14:40:00 EDT, 04/29/22 14:40:00 EST, Route to Pharmacy Electronically, [facility] [place] [id number], Partial fill upon patient re... Start Date: 04/29/22 Stop Date: 08/27/22 Status: Ordered tiotropium 2.5 mcg/inh inhalation aerosol 2 puffs, Inhalation, Daily, # 1 each, 5 Refills, Maintenance, 06/28/22 14:48:00 EDT, Inhaler, [facility] [place], [place] - [id number], Partial fill upon patient request if the [...] Hendrix Position: [facility] RN Supv [...] Hidalgo RN Position: [facility] JOHNO RN Member Role: Primary Care Nurse Name: Sissy Duran RN Position: [facility] AMB Nurse Member Role: Primary Care Nurse Name: Rohit Zavaleta RN Position: [facility] RN Member Role: Primary Care Nurse Name: Erlinda Hartman NP Position: [facility] Associate Professional Member Role: Primary Care Nurse Address: Address: [address] [place] [address] Name: Shante Solis RN [facility]: [facility] Perez RN Position: [facility] RN Member Role: Primary Care Nurse Name: Aleena Vizcaino RN Position: [facility] RN Member Role: Primary Care Nurse Name: Kacey Wilhelm RN Position: [facility] RN Member Role: Primary Care Nurse Name: Leslie Malloy RN Position: [facility] RN Member Role: Primary Care Nurse Name: Morena Easton RN Position: [facility] RN [...] Member Role: Lifetime Consulting Physician Address: Address: [address] [place] [address] [address] [facility] [place] [address]- Name: Marilee Richardson RN Position: [facility] RN Member Role: Primary Care Nurse Name: Rufino Johnson RN Position: S RN Member Role: Primary Care Nurse Name: Jovita Camargo RN Position: S RN Member Role: Primary Care Nurse Name: Ju Zhu Position: S RN Member Role: Primary Care Nurse Name: Ester Palmoares Position: [facility] RN Member Role: Primary Care Nurse Name: Emma Colbert RN Position: [facility] RN Supv Member Role: Primary Care Nurse Name: Hallie Gambino RN Position: [facility] Oncbobo RN Member Role: Primary Care Nurse [...] Primary Care Member Role: PCP Address: Address: [address] [place] [address]- Name: Lucian Krause RN [facility]: [facility] Care Nurse Name: Ximena Saab RN Position: [facility] RN [...] Name: Perri Bryant RN Position: [facility] RN Member Role: Primary Care Nurse Name: Alba Toro RN Position: [facility] RN [...] Name: Annmarie Feldman RN Position: [facility] PCO w/OE and EZ Script Member Role: Primary Care Nurse Name: Chinyere Espinoza RN Position: [facility] RN Member Role: Primary Care Nurse Name: Teresita Diallo RN Position: [facility] RN Member Role: Primary Care Nurse Name: Tennille Mcgarry RN Position: [facility] Machine Maintenance Servicer Member Role: Primary Care Nurse Name: Vicky Salazar RN Position: [facility] RN Member Role: Primary Care Nurse Name: pSencer Jameson RN Position: [facility] RN Member Role: Primary Care Nurse Name: Jalen Mullins Position: [facility] RN Member Role: Primary Care Nurse Care Team Related Persons Name: MARYANNE KELLER Address: [address] [place] [address] Name: MARYANNE KELLER Address: [address] [place] [address] Name: MARYANNE KELLER Address: home [address] [place] [address] Name: GEORGIA KELLER Address: [place] [address] Name: BALDEV POLANCO Address: [place] [address]
--- OUTSIDE RECORDS SUMMARY | 2023-02-09 22:48 | XMS_ITS | Continuity of Care Document ---
Author Name Unknown Organization [facility] Address [address] [place] [address]- Care Team Providers Care Applique Sewer Name Role Phone Jaki Bishop MD Primary Care Physician [phone] Encounter [facility] Date(s): 04/23/21 - 05/23/[address] [address]- Allergies, Adverse Reactions, Alerts Substance Reaction Severity [...] to COVID vaccine 2Admin Note: VIS GIVEN [id number] 3Admin Note: VIS GIVEN 2008- 4Admin Note: [...] 3 Refills, Maintenance, 04/24/21 13:09:00 EST, Tablet, [facility] [id number], Partial fill upon patient request if the [...] 2 Refills, Maintenance,05/08/21 12:22:00 EST, CR Capsule, [facility] [id number], Partial fill upon patient request if the [...] Active H/O tubal ligation(Confirmed) [facility] Gin Operator[facility] [phone](Confirmed) Active Heart failure(Confirmed) Active History of cholecystectomy(Confirmed) [...]
--- OUTSIDE RECORDS SUMMARY | 2023-02-09 22:48 | XMS_ITS | Continuity of Care Document ---
Author Name Unknown Organization [facility] Address [address] [place] [address]- Care Team Providers Care Document Specialist Name Role Phone Jaki Bishop MD Primary Care Physician Encounter [facility] Date(s): 08/27/22 - 10/09/[address] [address]- Attending Physician: Not on Staff, Attending MD [...] to COVID vaccine 2Admin Note: VIS GIVEN [id number] 3Admin Note: VIS GIVEN 2008- 4Admin Note: vis 5Admin Note: vis 02/06/08 Medications albuterol 90 mcg/inh inhalation powder 2 puffs, Inhalation, Every 4 hours, PRN as needed, PRN Wheezing, # 1 each, 1 Refills, Maintenance, 06/28/22 14:49:00 EDT, Powder, [facility] [id number], Partial fill upon patient request if the [...] 07/16/22 16:04:00 EDT, Route to Pharmacy Electronically, [facility] [id number], Partialfill upon patient request if the prescription is fo... Start Date: 07/16/22 Status: Ordered benztropine 1 mg oral tablet 0.5 mg, 0.5, tablet, By Mouth, 2 times a day, # 30 tablet, Refills 3, Tot. Refills 3, Maintenance, 09/17/22 1:51:00 EDT, Route to Pharmacy Electronically, [facility] [id number], Partial fill upon patient request if the prescri... Start Date: 09/17/22 Stop Date: 01/15/23 Status: Ordered carvedilol 3.125 mg oral tablet 3.125 mg, 1, tablet, By Mouth, 2 times a day, # 60 tablet, Refills 2, Tot. Refills 2, Maintenance, 09/17/22 1:50:00 EDT, Route to Pharmacy Electronically, [facility] [id number], Partial fill upon patient request if the prescri... Start Date: 09/17/22 Status: Ordered cloNIDine 0.1 mg oral tablet 0.1 mg, 1, tablet, By Mouth, Daily at bedtime, # 30 tablet, Refills 2, Tot. Refills 2, Maintenance,09/17/22 1:50:00 EDT, Route to Pharmacy Electronically, [facility] [id number], Partial fill upon patient request if the prescr... Start Date: 09/17/22 Status: Ordered Creon 12,000 units oral delayed release capsule 1 capsule, By Mouth, 3 times a day, # 90 capsule, 3 Refills, Maintenance, 09/17/22 1:49:00 EDT, EC Capsule, [facility] [id number], Partial fill upon patient request if the [...] 09/17/22 1:48:00 EDT, Route to Pharmacy Electronically, [facility] [id number], 160, cm, 07/26/22 12:51:00 EDT, Height, 89.2, [...] 09/17/22 1:50:00 EDT, Route to Pharmacy Electronically, [facility] [id number], Partialfill upon patient request if the prescription [...] mL, 5 Refills, Maintenance, 09/17/22 1:49:00 EDT, [facility] [id number], 15, 30 mL By Mouth 2 times a day, 160, cm, 07/26/22 12:51:00 EDT, Height, 89.2, kg, 07/21/22 3:29:00 EDT, Dry Weight Start Date: 09/17/22 Status: Ordered Lantus Solostar Pen 100 units/mL subcutaneous solution = 6 units, Subcutaneous Injection, Daily in AM, # 10 mL, 2 Refills, Maintenance, 04/29/22 14:34:00 EST, Solution, [facility] [id number], Partial fill upon patient request if the [...] 1 Refills, Maintenance, 04/02/22 16:44:00 EST, Tablet, [place], [place] - [id number], Partial fill upon patient request if the [...] EST, Route to Pharmacy Electronically, [facility] [id number], Partial fill upon patient request if the prescription... Start Date: 04/29/22 Stop Date: 08/27/22 Status: Ordered risperiDONE 3 mg oral tablet 3 mg, 1, tablet, By Mouth, Daily at bedtime, # 30 tablet, Refills 3, Tot. Refills 3, Maintenance, 04/29/22 14:39:00 EST, Route to Pharmacy Electronically, [facility] [id number], Partial fill upon patient request if the [...] 09/17/22 1:48:00 EDT, Route to Pharmacy Electronically, [facility] [id number], Partial fill upon patient requ... Start Date: 09/17/22 Stop Date: 10/17/22 Status: Ordered tiotropium 2.5 mcg/inh inhalation aerosol 2 puffs, Inhalation, Daily, # 1 each, 5 Refills, Maintenance, 09/17/22 1:52:00 EDT, Inhaler, [place], [place] - [id number], Partial fill upon patient request if the prescription is for a schedule II opioid drug., 160, cm, 07/26/22 12:... Start Date: 09/17/22 Stop Date: 03/16/23 Status: Ordered traZODone 50 mg oral tablet 50 mg, 1, tablet, By Mouth, Daily at bedtime, # 30 tablet, Refills 2, Tot. Refills 2, Maintenance, 09/17/22 1:47:00 EDT, Route to Pharmacy Electronically, [facility] [place] [place] - [id number], Partial fill upon patient request if the [...] Care Team Personnel Name: Lawrence Hendrix Position: [facility] RN Supv Member Role: Primary Care Nurse Name: Rufino Lloyd RN Position: S RN Member Role: Primary Care Nurse Name: Cristina Carpenter RN Position: [facility] RN Member Role: Primary Care Nurse Name: Rosette Noriega RN Position: [facility] RN Member Role: Primary Care Nurse Name: Mary Hidalgo RN Position: [facility] AMB Nurse Member Role: Primary Care Nurse Name: Sissy Duran RN Position: [facility] AMB Nurse Member Role: Primary Care Nurse Name: Rohit Zavaleta RN Position: [facility] RN Member Role: Primary Care Nurse Name: Erlinda Hartman NP Position: [facility] Associate Professional Member Role: Primary Care Nurse Address: Address: [address] [place] [address]- Name: Shante Solis RN Position: [facility] RN Member Role: Primary Care Nurse Name: Joshua Prakash RN Position: [facility] RN Member Role: Primary Care Nurse Name: Bettie Vanegas RN Position: [facility] SN RN Member Role: Primary Care Nurse Name: Jay Marroquin RN Position: [facility] RN Member Role: Primary Care Nurse Name: Adrianna Church RN Position: [facility] RN Member Role: Primary Care Nurse Name: Sue Purdy RN Position: [facility] RN Member Role: Primary Care Nurse Name: Hector Perez RN Position: [facility] RN Member Role: Primary Care Nurse Name: Aleena Vizcaino RN Position: [facility] RN Member Role: Primary Care Nurse Name: Kacey Wilhelm RN Position: [facility] RN Member Role: Primary Care Nurse Name: Leslie Malloy RN Position: [facility] RN Member Role: Primary Care Nurse Name: Yesenia Hu LPN Position: [facility] RN Member Role: Primary Care Nurse Name: Joaquina Herrera RN Position: [facility] RN Member Role: Primary Care Nurse Name: Diego Bell RN Position: [facility] RN Member Role: Primary Care Nurse Name: Ese Grey Position: [facility] RN Member Role: Primary Care Nurse Name: Chela Najera RN Position: [facility] RN Member Role: Primary Care Nurse Name: Tootie Gonzalez RN Position: [facility] RN Member Role: Primary Care Nurse Name: Nancy Monte RN Position: [facility] RN Member Role: Primary Care Nurse Name: Marilee Starkey Position: [facility] RN Member Role: Primary Care Nurse Name: Silvina Dodd RN Position: [facility] RN Member Role: Primary Care Nurse Name: Flaco Clifford DO Position: [facility] Renal MD Member Role: Lifetime Consulting Physician Address: Address: [address] [place] [address] [address] [facility] [place] [address]- Name: Marilee Richardson RN Position: [facility] RN Member Role: Primary Care Nurse Name: Rufino [place] RN Position: [facility] RN Member Role: Primary Care Nurse Name: Judson Larry Position: S RN Member Role: Primary Care Nurse Name: Jovita Camargo RN Position: S RN Member Role: Primary Care Nurse Name: Bruna Pizarro Position: S RN Member Role: Primary Care Nurse Name: Ju Zhu Position: S RN Member Role: Primary Care Nurse Name: Ester Palomares Position: [facility] RN Member Role: Primary Care Nurse Name: Emma Colbert RN Position: [facility] RN Supv Member Role: Primary Care Nurse Name: Hallie Gambino RN Position: [facility] Onco RN Member Role: Primary Care Nurse Name: Maya Ambriz RN Position: [facility] RN Member Role: Primary Care Nurse Name: Bhavna Rendon LPN Position: [facility] RN Member Role: Primary Care Nurse Name: Luis Burton RN Position: [facility] RN Member Role: Primary Care Nurse Name: Jaki Bishop MD Position: [facility] Physician - Primary Care Member Role: PCP Address: Address: [address] [place] [address]- Name: Lucian Krause RN Position: [facility] RN Member Role: Primary Care Nurse Name: Misty Tariq Position: [facility] RN Member Role: Primary Care Nurse Name: Isaiah Combs RN Position: [facility] RN Member Role: Primary Care Nurse Name: Leslie Ward RN Position: [facility] RN Member Role: Primary Care Nurse Name: Jacki Gomes RN Position: [facility] RN Member Role: Primary Care Nurse Name: Derek Smith RN Position: [facility] RN Member Role: Primary Care Nurse Name: Perri Smith RN Position: [facility] RN Member Role: Primary Care Nurse Name: Mar Brothers RN Position: [facility] RN Member Role: Primary Care Nurse Name: Ivette Shankar RN Position: [facility] RN Supv Member Role: Primary Care Nurse Name: Laura Mary RN Position: [facility] SN RN Member Role: Primary Care Nurse Name: Mary Guillen RN Position: [facility] RN Member Role: Primary Care Nurse Name: Octavio Box RN Position: [facility] RN Member Role: Primary Care Nurse Name: Nazia Tapia RN Position: [facility] RN Member Role: Primary Care Nurse Name: Pat [place] RN Position: [facility] RN Member Role: Primary Care Nurse Name: Caren Hernandez RN Position: [facility] RN Supv Member Role: Primary Care Nurse Name: Perri Bryant RN Position: [facility] RN Member Role: Primary Care Nurse Name: Nely Wong RN Position: [facility] RN Member Role: Primary Care Nurse Name: Erica Brandon RN Position: [facility] RN Member Role: Primary Care Nurse Name: Adrianna Gonzalez RN Position: [facility] RN Member Role: Primary Care Nurse Name: Annmarie Feldman RN Position: [facility] PCO w/OE and EZ Script Member Role: Primary Care Nurse Name: Chinyere Espinoza RN Position: [facility] RN Member Role: Primary Care Nurse Name: Teresita Diallo RN Position: [facility] RN Member Role: Primary Care Nurse Name: Tennille Mcgarry RN Position: [facility] Chick Grader Member Role: Primary Care Nurse Name: Vicky Salazar RN Position: [facility] RN Member Role: Primary Care Nurse Name: Spencer Jameson RN Position: [facility] RN Member Role: Primary Care Nurse Name: Jalen Mullins Position: [facility] RN Member Role: Primary Care Nurse Care Team Related Persons Name: MARYANNE KELLER Address: [address] [place] [address] Name: MARYANNE KELLER Address: home [address] [place] [address] Name: MARYANNE KELLER JR Address: home [address] [place] [address] Name: GEORGIA KELLER Address: [place] [address] Name: BALDEV POLANCO Address: [place] [address]
--- OUTSIDE RECORDS SUMMARY | 2023-02-09 22:48 | XMS_ITS | Continuity of Care Document ---
Author Name Unknown Organization [facility] Address [address] [place] [address]- Care Team Providers Care Casting Machine Control Board Operator Name Role Phone Jaki Bishop MD Primary Care Physician Encounter [facility] Date(s): 08/14/20 - 09/13/[address] [address]- Allergies, Adverse Reactions, Alerts Substance Reaction Severity [...] to COVID vaccine 2Admin Note: VIS GIVEN [id number] 3Admin Note: VIS GIVEN 2008-12 4Admin Note: vis 5Admin Note: vis 02/06/08 Medications acetaminophen 325 mg oral tablet 1, tablet, By Mouth, 4 times a day, PRN, not to exceed 4 TABLETS PER DAY. Not to exceed 2000 mg/day. PRN Pain, # 60 tablet, Refills 5, Tot. Refills 5, Maintenance, NEEDED, 08/14/20 16:55:00 EDT, Route to Pharmacy Electronically, [facility]... Start Date: 08/14/20 Status: Ordered Clozaril 100 [...] 05/26/20 14:41:00 EST, Route to Pharmacy Electronically, [facility] [id number], Partial fill upon patient request if the prescr... Start Date: 05/26/20 Stop Date: 11/22/20 Status: Ordered gabapentin 100 mg oral capsule 200 mg, 2, capsule, By Mouth, 2 times a day, # 120 capsule, Refills 5, Tot. Refills 5, Maintenance,05/28/20 13:46:00 EST, Route to Pharmacy Electronically, [facility] [id number], Partial fill upon patient request if the presc... Start Date: 05/28/20 Status: Ordered Humalog Kwik Pen 100 units/mL subcutaneous injection See Instructions, 3 Units for bood sugar above 120 mg/dl and then add 2 Units for every 50 mg/dl rise above 120. Three times a day before meals., # 15 mL, 1 Refills, Maintenance, 04/16/20 11:07:00 EST, [facility] [id number],... Start Date: 04/16/20 Status: Ordered lactulose 10 [...] Refills, Maintenance, 08/20/20 16:55:00 EDT, Solution, [facility], [place] - [id number], 168, cm, 04/16/20 8:30:00 EST, Height, 98.7, kg, 03/22... Start Date: 08/20/20 Status: Ordered loratadine 10 mg oral tablet See Instructions, TAKE ONE TABLET BY MOUTH DAILY, # 30 tablet, Refills 5, Tot. Refills 5, 05/01/20 8:18:00 EST, Instructions Replace Required Details, Route to Pharmacy Electronically, [facility], [place] - [id number], 168, cm, 04/16/20... Start Date: 05/01/20 Status: [...] 5 Refills, Maintenance, 07/14/20 16:30:00 EDT, Tablet, [facility] [id number], this is an increased, 1 tablet By Mouth 2 times a day,x30 days, 168, cm, 04/16/20 8:30:00 EST, [facility]igh... Start Date: 07/14/20 Stop Date: 01/10/21 Status: Ordered torsemide 20 mg oral tablet 1 tablet = 20 mg, By Mouth, Daily, # 30 tablet, 1 Refills, Maintenance, 04/16/20 11:09:00 EST, Tablet, [facility] [id number], Partial fill upon patient request if the prescription is for a schedule II opioid drug., 168, cm, 01... Start Date: 04/16/20 Stop Date: 04/11/21 Status: Ordered Zenpep 10,000 units-32,000 units-42,000 units oral delayed release capsule 1 capsule, By Mouth, 3 times a day, # 90 capsule, 0 Refills, Maintenance, 04/16/20 11:09:00 EST, [facility] [id number], 1 capsule By Mouth 3 times a [...] Active H/O tubal ligation(Confirmed) Active BHN/BH CP Inspector Metal Fabricating/Janet salvador [facility] [phone](Confirmed) Active History of cholecystectomy(Confirmed) Active Hypertension(Confirmed) Active [...]
--- OUTSIDE RECORDS SUMMARY | 2023-02-09 22:48 | XMS_ITS | Continuity of Care Document ---
Author Name Unknown Organization [facility] Address [address] [place] [address]- Care Team Providers Care Terrazzo Finisher Helper Name Role Phone Dario HAYDEN, Jaki Primary Care Physician Encounter [facility] Date(s): 03/29/22 - 05/14/[address] [address]- Attending Physician: Dayami Cerna MD Admitting Physician: Dayami Cerna MD Allergies, Adverse Reactions, Alerts Substance Reaction [...] to COVID vaccine 2Admin Note: VIS GIVEN [id number] 3Admin Note: VIS GIVEN 2008- 4Admin Note: [...] 04/29/22 14:29:00 EST, Route to Pharmacy Electronically, [facility] [id number], Partial fill upon patient request if the prescr... Start Date: 04/29/22 Stop Date: 08/27/22 Status: Ordered cloNIDine 0.1 mg oral tablet 0.1 mg, 1, tablet, By Mouth, Daily, # 30 tablet, Refills 3, Tot. Refills 3, Maintenance, 04/29/22 14:29:00 EST, Route to Pharmacy Electronically, [facility] [id number], Partial fill upon patient request if the prescription is... Start Date: 04/29/22 Stop Date: 08/27/22 Status: Ordered Coreg 6.25 mg oral tablet 6.25 mg, 1, tablet, By Mouth, 2 times a day, # 60 tablet, Refills 3, Tot. Refills 3, Maintenance, 04/29/22 14:29:00 EST, Route to Pharmacy Electronically, [facility] [id number], Partial fill upon patient request if the prescri... Start Date: 04/29/22 Stop Date: 08/27/22 Status: Ordered Creon 12,000 units oral delayed release capsule 1 capsule, By Mouth, 3 times a day, # 90 capsule, 3 Refills, Maintenance, 04/29/22 14:37:00 EST, ECCapsule, [facility] [id number], Partial fill upon patient request if the prescription is for a schedule II opioid drug., 167,... Start Date: 04/29/22 Status: Ordered diphenhydrAMINE 25 mg oral tablet 1 tablet = 25 mg, By Mouth, 3 times a day, for 30 days, PRN Agitation, # 90 tablet, 1 Refills, Acute 06/28/22 15:55:00 EDT, 04/29/22 15:55:00 EST, Tablet, [facility] [id number], Partial fill upon patient request if the prescri... Start Date: 04/29/22 Stop Date: 06/28/22 Status: Ordered divalproex sodium 500 mg oral enteric coated tablet 1 tablet = 500 mg, By Mouth, 2 times a day, # 60 tablet, 3 Refills, Maintenance, 04/29/22 14:33:00 EST, Tablet, [facility] [id number], Partial fill upon patient request if the prescription is for a schedule II opioid drug., 16... Start Date: 04/29/22 Stop Date: 08/27/22 Status: Ordered folic acid 1 mg oral tablet 1 mg, 1, tablet, By Mouth, Daily, # 30 tablet, Refills 1, Tot. Refills 1, Maintenance, 04/29/22 14:34:00 EST, Route to Pharmacy Electronically, [facility] [id number], Partialfill upon patient request if the prescription [...] 0 Refills, Maintenance, 04/08/22 16:16:00 EST, Liquid, [facility] [place], [place] - [id number], Partial fill upon patient request if the [...] 2 Refills, Maintenance, 04/29/22 14:34:00 EST, Solution, [facility] [id number], Partial fill upon patient request if the prescription is for a schedule II opioid drug.,... Start Date: 04/29/22 Status: Ordered multivitamin Multiple Vitamins oral tablet 1 tablet, By Mouth, Daily, # 90 tablet, 1 Refills, Maintenance, 04/02/22 16:44:00 EST, Tablet, [facility] [id number], Partial fill upon patient request if the [...] 04/29/22 14:39:00 EST, Route to Pharmacy Electronically, [facility] [id number], Partial fill upon patient request if the prescription... Start Date: 04/29/22 Stop Date: 08/27/22 Status: Ordered risperiDONE 3 mg oral tablet 3 mg, 1, tablet, By Mouth, Daily at bedtime, # 30 tablet, Refills 3, Tot. Refills 3, Maintenance, 04/29/22 14:39:00 EST, Route to Pharmacy Electronically, [facility] [id number], Partial fill upon patient request if the prescri... Start Date: 04/29/22 Status: Ordered thiamine 100 mg oral tablet 100 mg, 1, tablet, By Mouth, Daily, for 30 days, # 30 tablet, Refills 3, Tot. Refills 3, Acute 08/27/22 14:40:00 EDT, 04/29/22 14:40:00 EST, Route to Pharmacy Electronically, [place], [place] - [id number], Partial fill upon patient re... Start Date: 04/29/22 Stop Date: 08/27/22 Status: Ordered tiotropium 2.5 mcg/inh inhalation aerosol 2 puffs, Inhalation, Daily, # 1 each, 0 Refills, Maintenance, 03/25/22 12:09:00 EST, Inhaler, [facility] 3, Partial fill upon patient request [...] Care Team Personnel Name: Lawrence Hendrix Position: [facility] RN Supv Member Role: Primary Care Nurse Name: Rufino Lloyd RN Position: [facility] RN Member Role: Primary Care Nurse Name: Cristina Carpenter RN Position: [facility] RN Member Role: Primary Care Nurse Name: Rosette Noriega RN Position: [facility] SN RN Member Role: Primary Care Nurse Name: Mary Hidalgo RN Position: [facility] PCO RN Member Role: Primary Care Nurse Name: Sissy Duran RN Position: [facility] AMB Nurse Member Role: Primary Care Nurse Name: Rohit Zavaleta RN Position: [facility] RN Member Role: Primary Care Nurse Name: Erlinda Hartman NP Position: [facility] Associate Professional Member Role: Primary Care Nurse Address: Address: [address] [place] [address] Name: Jong Suazo RN Position: [facility] RN Supv Member Role: Primary Care Nurse Name: Shante Solis RN Position: [facility] RN Member Role: Primary Care Nurse Name: Joshua Prakash RN Position: [facility] RN Member Role: Primary Care Nurse Name: Bettie Vanegas RN Position: [facility] RN Member Role: Primary Care Nurse Name: Jay Marroquin RN Position: [facility] RN Member Role: Primary Care Nurse Name: Adrianna Church RN Position: [facility] RN Member Role: Primary Care Nurse Name: Sue Purdy RN Position: [facility] RN Member Role: Primary Care Nurse Name: Hector Perez RN Position: [facility] RN Member Role: Primary Care Nurse Name: Aleena Vizcaino RN Position: [facility] RN Member Role: Primary Care Nurse Name: Kacey Wilhelm RN Position: [facility] RN Member Role: Primary Care Nurse Name: Monalisa Barker LPN Position: [facility] AMB Nurse Member Role: Primary Care Nurse Name: Leslie Malloy RN Position: [facility] RN Member Role: Primary Care Nurse Name: Yesenia Hu LPN Position: [facility] RN Member Role: Primary Care Nurse Name: Joaquina Herrera RN Position: [facility] RN Member Role: Primary Care Nurse Name: Diego Bell RN Position: [facility] RN Member Role: Primary Care Nurse Name: Ese Grey Position: [facility] RN Member Role: Primary Care Nurse Name: Chela Najera RN Position: [facility] RN Member Role: Primary Care Nurse Name: Tootie Gonzalez RN Position: [facility] RN Member Role: Primary Care Nurse Name: Nancy Monte RN Position: [facility] RN Member Role: Primary Care Nurse Name: Marilee Starkey Position: [facility] RN Member Role: Primary Care Nurse Name: Silvina Dodd RN Position: [facility] RN Member Role: Primary Care Nurse Name: Flaco Clifford DO Position: [facility] Renal MD Member Role: Lifetime Consulting Physician Address: Address: [address] [place] [address] [facility] [address] Name: Marilee Richardson RN Position: [facility] RN Member Role: Primary Care Nurse Name: Rufino Johnson RN Position: [facility] RN Member Role: Primary Care Nurse Name: Jovita Camargo RN Position: [facility] RN Member Role: Primary Care Nurse Name: Ju Zhu Position: [facility] RN Member Role: Primary Care Nurse Name: Ester Palomares Position: [facility] RN Member Role: Primary Care Nurse Name: Emma Colbert RN Position: [facility] RN Supv Member Role: Primary Care Nurse Name: Hallie Gambino RN Position: [facility] Onco RN Member Role: Primary Care Nurse Name: Maya Ambriz RN Position: [facility] RN Member Role: Primary Care Nurse Name: Bhavna Rendon LPN Position: [facility] RN Member Role: Primary Care Nurse Name: Luis Burton RN Position: [facility] RN Member Role: Primary Care Nurse Name: Jaki Bishop MD Position: [facility] Primary Care Physician Member Role: PCP Address: Address: [address] [place] [id number] Name: Lucian Krause RN Position: [facility] RN Member Role: Primary Care Nurse Name: Leslie Ward RN Position: [facility] RN Member Role: Primary Care Nurse Name: Jacki Gomes RN Position: [facility] RN Member Role: Primary Care Nurse Name: Ximena Saab RN Position: [facility] RN Member Role: Primary Care Nurse Name: Ivette Shankar RN Position: [facility] RN Supv Member Role: Primary Care Nurse Name: Laura Mary RN Position: [facility] SN RN Member Role: Primary Care Nurse Name: Octavio Box RN Position: [facility] RN Member Role: Primary Care Nurse Name: Nazia Tapia RN Position: [facility] RN Member Role: Primary Care Nurse Name: Caren Hernandez RN Position: [facility] RN Supv Member Role: Primary Care Nurse Name: Veronica Queen RN Position: [facility] RN Member Role: Primary Care Nurse Name: Perri Bryant RN Position: [facility] RN Member Role: Primary Care Nurse Name: Alba Toro RN Position: [facility] RN Member Role: Primary Care Nurse Name: Nely Wong RN Position: [facility] RN Member Role: Primary Care Nurse Name: Erica Brandon RN Position: [facility] RN Member Role: Primary Care Nurse Name: Adrianna Gonzalez RN Position: [facility] RN Member Role: Primary Care Nurse Name: Annmarie Feldman RN Position: [facility] PCO w/OE and EZ Script Member Role: Primary Care Nurse Name: Chinyere Espinoza RN Position: [facility] RN Member Role: Primary Care Nurse Name: Teresita Diallo RN Position: [facility] RN Member Role: Primary Care Nurse Name: Tennille Mcgarry RN Position: [facility] Hospital Biomedical Technician Member Role: Primary Care Nurse Name: Vicky Salazar RN Position: [facility] RN Member Role: Primary Care Nurse Name: Spencer Jameson RN Position: [facility] RN Member Role: Primary Care Nurse Name: Jalen Mullins Position: [facility] RN Member Role: Primary Care Nurse Care Team Related Persons Name: MARYANNE KELLER Address: home [address] [place] [id number] Name: MARYANNE KELLER Address: home [address] [address] [place] [address] Name: MARYANNE KELLER JR Address: home [address] [place] [address] Name: GEORGIA KELLER Address: [place] [address] Name: BALDEV POLANCO Address: [place] [address]
--- OUTSIDE RECORDS SUMMARY | 2023-02-09 22:48 | XMS_ITS | Continuity of Care Document ---
Author Name Unknown Organization [facility] Address [address] [place] [address]- Care Team Providers Care Qa Analyst Name Role Phone Jaki Bishop MD Primary Care Physician Encounter [facility] Date(s): 07/07/21 - 09/06/[address] [address]- Attending Physician: Not on Staff, Attending MD [...] to COVID vaccine 2Admin Note: VIS GIVEN [id number] 3Admin Note: VIS GIVEN 2008- 4Admin Note: vis 5Admin Note: vis 02/06/08 Medications Abilify 10 mg oral tablet 10 mg, 1, tablet, By Mouth, Daily, # 90 tablet, Refills 3, Tot. Refills 3, Maintenance, 07/07/21 8:56:00 EDT, Route to Pharmacy Electronically, [place], [place] - [id number], Partialfill upon patient request if the prescription [...] 8:56:00 EDT, Route to Pharmacy Electronically, [facility] [id number], Partial fill upon patient request if the prescri... Start Date: 07/07/21 Status: Ordered Comfort EZ Pen [place] 31 gauge x 5/16 USE TO inject insulin 4 (FOUR) TIMES DAILY Start Date: 07/03/21 Status: Ordered Coreg 6.25 mg oral tablet 6.25 mg, 1, tablet, By Mouth, 2 times a day, # 180 tablet, Refills 3, Tot. Refills 3, Maintenance, 07/07/21 8:56:00 EDT, Route to Pharmacy Electronically, [facility] [id number], Partial fill upon patient request if the prescri... Start Date: 07/07/21 Status: Ordered Daily Multiple Vitamins oral tablet 1 tablet, By Mouth, Daily, # 90 tablet, 3 Refills, Maintenance, 07/07/21 8:56:00 EDT, Tablet, [facility] [id number], Partial fill upon patient request if the prescription is for a schedule II opioid drug., 1 tablet By Mouth Da... Start Date: 07/07/21 Status: Ordered divalproex sodium 250 mg oral enteric coated tablet 1 tablet = 250 mg, By Mouth, Daily in AM, # 90 tablet, 3 Refills, Maintenance, 07/07/21 8:56:00 EDT, Tablet, [facility] [id number], Partial fill upon patient request if the prescription is for a schedule II opioid drug., 167,... Start Date: 07/07/21 Status: Ordered divalproex sodium 500 mg oral enteric coated tablet 1 tablet = 500 mg, By Mouth, Daily at bedtime, # 90 tablet, 3 Refills, Maintenance, 07/07/21 8:56:00 EDT, Tablet, [facility] [id number], Partial fill upon patient request if the prescription is for a schedule II opioid drug.,... Start Date: 07/07/21 Status: Ordered Eucerin Unscented topical lotion See Instructions, Apply daily as directed to dry skin. 16 oz, # 1 each, 3 Refills, Maintenance, 07/07/21 9:02:00 EDT, [facility] [id number], Partial fill upon patient requestif the prescription [...] 8:56:00 EDT, Route to Pharmacy Electronically, [facility] [id number], Partial fill upon patient request if the p... Start Date: 07/07/21 Status: Ordered gabapentin 100 mg oral capsule 200 mg, 2, capsule, By Mouth, Daily at bedtime, # 180 capsule, Refills 3, Tot. Refills 3, Maintenance, 07/07/21 8:56:00 EDT, Route to Pharmacy Electronically, [facility] [id number], Partial fill upon patient request if the pre... Start Date: 07/07/21 Status: Ordered guaiFENesin 100 mg/5 mL oral liquid 5 mL = 100 mg, By Mouth, Every 4 hours, PRN for cough, # 300 mL, 0 Refills, Acute 07/07/22 9:05:00 EDT, 07/07/21 9:02:00 EDT, Liquid, [facility], [place] - [id number], Partial fill uponpatient request if the prescription [...] 11 Refills, Maintenance, 07/07/21 8:56:00 EDT, Injection, [facility] [id number], Partial fill upon patient request if the [...] a day, # 581 mL, 3 Refills, [facility], 10, TAKE 30mls BY MOUTH 2 (two) times a day, 167, cm, 07/07/21 8:39:00 EDT, Height, 95.6, kg, 06/29/21 18:39:00 EDT, Dry Weight Start Date: 08/10/21 Status: Ordered loratadine 10 mg oral tablet 10 mg, 1, tablet, By Mouth, Daily, # 90 tablet, Refills 3, Tot. Refills 3, Maintenance, 07/07/21 8:56:00 EDT, Route to Pharmacy Electronically, [facility] [id number], Partialfill upon patient request if the prescription is fo... Start Date: 07/07/21 Status: Ordered magnesium oxide 400 mg oral tablet 1 tablet = 400 mg, By Mouth, 2 times a day, # 180 tablet, 3 Refills, Maintenance, 07/07/21 8:56:00 EDT, Tablet, [place], [place] - [id number], Partial fill upon patient request if the prescription is for a schedule II opioid drug., 16... Start Date: 07/07/21 Status: Ordered melatonin 3 mg oral tablet 1 tablet = 3 mg, By Mouth, Daily at bedtime, PRN Insomnia, # 90 tablet, 3 Refills, Maintenance, 07/07/21 8:56:00 EDT, Tablet, [facility] [id number], Partial fill upon patientrequest if the prescription is for a schedule II op... Start Date: 07/07/21 Status: Ordered nicotine 2 mg oral transmucosal lozenge 1 lozenge = 2 mg, By Mouth, Every hour, PRN Other, Nicotine Withdrawal Symptoms (not to exceed 20 lozenges per day), # 72 lozenge, 3 Refills, Maintenance, 07/07/21 8:56:00 EDT, Lozenge, [facility] [id number], Partial fill upon... Start Date: 07/07/21 Status: Ordered pancrelipase 10,000 units-32,000 units-42,000 units oral delayed release capsule 1 capsule, By Mouth, 3 times a day, with each meal and snack, # 270 capsule, 3 Refills, Maintenance, 07/07/21 8:56:00 EDT, CR Capsule, [facility] [id number], Partial fill upon patient request if the [...] Refills, Maintenance, 07/07/21 8:56:00 EDT, Tablet, [facility] [id number], Partial fill upon patient request if theprescription [...] Active H/O tubal ligation(Confirmed) Active BHN/ CP Allergist Immunologist/Janet salvador [facility] [phone](Confirmed) Active Heart failure(Confirmed) Active History of cholecystectomy(Confirmed) [...]
--- OUTSIDE RECORDS SUMMARY | 2023-02-09 22:49 | XMS_ITS | Continuity of Care Document ---
Author Name Unknown Organization [facility] Address [address] [place] [address]- Care Team Providers Care Software Controls Engineer Name Role Phone Jaki Bishop MD Primary Care Physician [phone] Encounter [facility] Date(s): 06/09/20 - 07/09/[address] [address]- Allergies, Adverse Reactions, Alerts Substance Reaction Severity [...] Given Permanently Refused 1Admin Note: VIS GIVEN [id number] 2Admin Note: VIS GIVEN 2008-12 3Admin Note: vis 4Admin Note: vis 02/06/08 Medications acetaminophen 325 mg oral tablet 1, tablet, By Mouth, 4 times a day, PRN, not to exceed 4 TABLETS PER DAY. Not to exceed 2000 mg/day. PRN Pain, # 60 tablet, Refills 0, Tot. Refills 0, Maintenance, NEEDED, 06/19/20 12:38:00 EDT, Route to Pharmacy Electronically, [facility]... Start Date: 06/19/20 Status: Ordered Alcohol [...] 0 Refills, Maintenance, 04/16/20 11:06:00 EST, Tablet, [facility] [id number], Partial fill upon patient request if the prescription is for a schedule II opioid drug., 168,... Start Date: 04/16/20 Status: Ordered clozapine 50 mg oral tablet 3 tablet = 150 mg, By Mouth, Daily at bedtime, # 90 tablet, 0 Refills, Maintenance, 04/16/20 11:06:00 EST, Tablet, [facility] [id number], Partial fill upon patient request ifthe prescription is for a schedule II opioid drug.,... Start Date: 04/16/20 Status: Ordered Coreg 12.5 mg oral tablet 12.5 mg, 1, tablet, By Mouth, 2 times a day, # 180 tablet, Refills 1, Tot. Refills 1, Maintenance, 05/26/20 14:41:00 EST, Route to Pharmacy Electronically, [facility] [id number], Partial fill upon patient request if the prescr... Start Date: 05/26/20 Stop Date: 11/22/20 Status: Ordered docusate sodium 100 mg oral capsule = 100 mg, By Mouth, 2 times a day, PRN Constipation., # 60 capsule, 3 Refills, Maintenance, 02/29/20 15:13:00 EST, Capsule, [place], [place] - [id number], Partial fill upon patient request if the [...] Maintenance,05/28/20 13:46:00 EST, Route to Pharmacy Electronically, [place], [place] - [id number], Partial fill upon patient request if the presc... Start Date: 05/28/20 Status: Ordered Glucerna (Vanilla Flavor) Glucerna (Vanilla Flavor), See Instructions, # 60 each, Refills 11, Tot. Refills 11, Maintenance, Drink 1 can BID. 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 Fax to [facility] ( [facility], #[phone]), 06/06/20 19... Start Date: 06/06/20 Status: Ordered [...] mL, 1 Refills, Maintenance, 04/16/20 11:07:00 EST, [place], [place] - [id number],... Start Date: 04/16/20 Status: Ordered lactulose 10 gm/15 ml oral syrup 30 mL, By Mouth, 2 times a day, # 581 mL, 3 Refills, Maintenance, 06/27/20 11:11:00 EDT, [facility] [id number], 10, 30 mL By Mouth 2 times [...] Required Details, Route to Pharmacy Electronically, [facility] [id number], 168, cm, 04/16/20... Start Date: 05/01/20 Status: Ordered multivitamin Multiple Vitamins oral tablet 1 tablet, By Mouth, Daily, # 90 tablet, 1 Refills, Maintenance, 05/26/20 13:28:00 EST, Tablet, [facility] [place] - [id number], 1 tablet By Mouth Daily, 168, cm, [...] 0 Refills, Maintenance, 04/16/20 11:08:00 EST, Gum, [facility], [facility] [id number], Partial fill upon patient request if the [...] 5 Refills, Maintenance, 03/05/20 16:50:00 EST, Tablet, [place], [place] - [id number], this is an increased, 1 tablet By Mouth 2 times a day,x30 days, 168, cm, 02/10/20 5:58:00 EST, Heigh... Start Date: 03/05/20 Stop Date: 09/01/20 Status: Ordered torsemide 20 mg oral tablet 1 tablet = 20 mg, By Mouth, Daily, # 30 tablet, 1 Refills, Maintenance, 04/16/20 11:09:00 EST, Tablet, [facility] [id number], Partial fill upon patient request if the prescription is for a schedule II opioid drug., 168, cm, 01... Start Date: 04/16/20 Stop Date: 04/11/21 Status: Ordered Zenpep 10,000 units-32,000 units-42,000 units oral delayed release capsule 1 capsule, By Mouth, 3 times a day, # 90 capsule, 0 Refills, Maintenance, 04/16/20 11:09:00 EST, [facility] [id number], 1 capsule By Mouth 3 times a [...] H/O tubal ligation(Confirmed) Active BHN/ CP Metal Moulder'S Assistant/Janet salvador [facility] [phone](Confirmed) Active History of cholecystectomy(Confirmed) Active Hypertension(Confirmed) Active [...]
--- OUTSIDE RECORDS SUMMARY | 2023-02-09 22:49 | XMS_ITS | Continuity of Care Document ---
Author Name Unknown Organization [facility] Address [address] [place] [address]- Care Team Providers Care Tariff Clerk Name Role Phone Jaki Bishop MD Primary Care Physician [phone] Encounter [facility] [place] [facility] [place] Date(s): 06/30/20 - 08/06/[address] [address]- Attending Physician: Jaki Bishop MD Admitting Physician: [...] 07/22/20 10:39:00 EDT, Route to Pharmacy Electronically, [facility] -... Start Date: 07/22/20 Status: Ordered [...] 0 Refills, Maintenance, 04/16/20 11:06:00 EST, Tablet, [facility] [id number], Partial fill upon patient request if the prescription is for a schedule II opioid drug., 168,... Start Date: 04/16/20 Status: Ordered clozapine 50 mg oral tablet 3 tablet = 150 mg, By Mouth, Daily at bedtime, # 90 tablet, 0 Refills, Maintenance, 04/16/20 11:06:00 EST, Tablet, [facility] [id number], Partial fill upon patient request ifthe prescription is for a schedule II opioid drug.,... Start Date: 04/16/20 Status: Ordered Comfort EZ Pen [place] 31 gauge x 16 Comfort EZ Pen [place] 31 gauge x 16 , See Instructions, [...] 05/26/20 14:41:00 EST, Route to Pharmacy Electronically, [facility] [id number], Partial fill upon patient request if the prescr... Start Date: 05/26/20 Stop Date: 11/22/20 Status: Ordered docusate sodium 100 mg oral capsule = 100 mg, By Mouth, 2 times a day, PRN Constipation., # 60 capsule, 5 Refills, Maintenance, 07/21/20 10:54:00 EDT, Capsule, [facility] [id number], Partial fill upon patient request if the [...] Maintenance,05/28/20 13:46:00 EST, Route to Pharmacy Electronically, [facility] [id number], Partial fill upon patient request if the [...] to [place] ( [facility], #[phone]), 06/06/20 19... Start Date: 06/06/20 Status: Ordered [...] mL, 1 Refills, Maintenance, 04/16/20 11:07:00 EST, [place], [place] - [id number],... Start Date: 04/16/20 Status: Ordered lactulose 10 gm/15 ml oral syrup 30 mL, By Mouth, 2 times a day, # 581 mL, 3 Refills, Maintenance, 06/27/20 11:11:00 EDT, [place], [place] - [id number], 10, 30 mL By Mouth 2 times [...] 3 Refills, Maintenance, 07/29/20 10:17:00 EDT, Solution, [facility] [id number], 168, cm, 04/16/20 8:30:00 EST, Height, 98.7, kg, 03/22... Start Date: 07/29/20 Status: Ordered loratadine 10 mg oral tablet See Instructions, TAKE ONE TABLET BY MOUTH DAILY, # 30 tablet, Refills 5, Tot. Refills 5, 05/01/20 8:18:00 EST, Instructions Replace Required Details, Route to Pharmacy Electronically, [facility] [id number], 168, cm, 04/16/20... Start Date: 05/01/20 Status: Ordered multivitamin Multiple Vitamins oral tablet 1 tablet, By Mouth, Daily, # 90 tablet, 1 Refills, Maintenance, 05/26/20 13:28:00 EST, Tablet, [facility] [id number], 1 tablet By Mouth Daily, 168, cm, [...] 0 Refills, Maintenance, 04/16/20 11:08:00 EST, Gum, [place], [place] - [id number], Partial fill upon patient request if the [...] 5 Refills, Maintenance, 07/14/20 16:30:00 EDT, Tablet, [place], [place] - [id number], this is an increased, 1 tablet By Mouth 2 times a day,x30 days, 168, cm, 04/16/20 8:30:00 EST, Heigh... Start Date: 07/14/20 Stop Date: 01/10/21 Status: Ordered torsemide 20 mg oral tablet 1 tablet = 20 mg, By Mouth, Daily, # 30 tablet, 1 Refills, Maintenance, 04/16/20 11:09:00 EST, Tablet, [facility] [id number], Partial fill upon patient request if the prescription is for a schedule II opioid drug., 168, cm, 01... 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
--- OUTSIDE RECORDS SUMMARY | 2023-02-09 22:49 | XMS_ITS | Continuity of Care Document ---
Author Name Unknown Organization [facility] ter Address [address] [place] [address]- Care Team Providers Care Remote Sensing Analyst Name Role Phone Dario HAYDEN, Jaki Primary Care Physician Encounter [facility] Date(s): 01/12/21 - 01/13/[address] [address]- Discharge Disposition: Transfer to [facility] Facility Attending Physician: Manuel HAYDEN, Lizette Rothman Admitting Physician: Lizette Jackson MD Referring Physician: Not on Staff, Referring [...] to COVID vaccine 2Admin Note: VIS GIVEN [id number] 3Admin Note: VIS GIVEN 2008-12 4Admin Note: [...] 0 Refills, Maintenance, 11/28/20 9:22:00 EDT, Solution, [facility], Partial fill [...] Cane See Instructions, # 1 each, Maintenance, [id number], includes canes of all materials, adjustable orfixed, [...] 11/28/20 9:24:00 EDT, Syrup, [facility], Partial fill upon patient request if theprescription is for a schedule II opioid drug., 30... Start Date: 11/28/20 Stop Date: 01/27/21 Status: Ordered loratadine 10 mg oral tablet 10 mg, 1, tablet, By Mouth, Daily, # 30 tablet, Refills 0, Tot. Refills 0, Maintenance, 11/28/20 9:25:00 EDT, [facility], [facility] [...] a day, # 60 tablet, 0 Refills, [facility], 167.64, cm, 11/27/20 22:30:00 EDT, Height, [...] 0 Refills, Maintenance, 11/28/20 9:27:00 EDT, Nasal [place], [facility], Partial fill upon patient request if the prescription is for a schedule II opioid drug., 2 sprays... 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 salvador [facility] [phone](Confirmed) Active History of cholecystectomy(Confirmed) Active Hypertension(Confirmed) Active Incisional hernia(Confirmed) Active Nicotine dependence(Confirmed) Active Obesity (BMI 30.0-34.9)(Confirmed) Active Pulmonary HTN, Severe(Confirmed) Active Steatohepatitis (w/Stage III Fibrosis, Liver Biopsy 05/2012)(Confirmed) Active Heart failure with reduced e jection fraction(Confirmed) Active Vital Signs Most recent to oldest [Reference Range]: 1 2 3 Oxygen Saturation [94-100 %] 100 % (01/13/21 3:13 PM) 95 % (01/13/21 2:06 PM) 95 % (01/13/21 9:34 AM) Pulse Rate [55-90 bpm] 88 bpm (01/13/21 3:13 PM) 102 bpm *H* (01/13/21 2:06 PM) 102 bpm *H* (01/13/21 9:34 AM) Blood Pressure [90-138/55-84 mm Hg] 113/66mm Hg (01/13/21 3:13 PM) 139/108mm Hg *H* (01/13/21 2:06 PM) 180/99mm Hg *H* (01/13/21 9:34 AM) Respiratory Rate [16-30 br/min] 18 br/min (01/13/21 3:13 PM) 18 br/min (01/13/21 2:06 PM) 18 br/min (01/13/21 9:34 AM) Temperature [96.8-100.4 DegF] 98.0 DegF (01/13/21 3:13 PM) 98.4 DegF (01/13/21 2:06 PM) 97.5 DegF (01/13/21 2:13 AM) Mode of Delivery (Oxygen) Room air (01/13/21 3:13 PM) Room air (01/13/21 2:06 PM) Room air (01/13/21 9:34 AM) Blood pressure sites Arm, right (01/13/21 3:13 PM) Arm, right (01/13/21 2:06 PM) Arm, left (01/13/21 9:34 AM) Temperature Route Oral (01/13/21 3:13 PM) Oral (01/13/21 2:06 PM) Oral (01/13/21 2:13 AM) Social History Social History Type Response Tobacco Use: 4 or less cigar ettes(less than 1/4 pack)/day in last 30 days. Started at age: 15 Years. Sex
--- OUTSIDE RECORDS SUMMARY | 2023-02-09 22:49 | XMS_ITS | Continuity of Care Document ---
Author Name Unknown Organization [facility] Address [address] [place] [address]- Care Team Providers Care Slusher Operator Name Role Phone Jaki Bishop MD Primary Care Physician Encounter [facility] Date(s): 04/21/20 - 05/21/[address] [address]- Allergies, Adverse Reactions, Alerts Substance Reaction Severity [...] Given Permanently Refused 1Admin Note: VIS GIVEN [id number] 2Admin Note: VIS GIVEN 2008-12 3Admin Note: vis 4Admin Note: vis 02/06/08 Medications acetaminophen 325 mg oral tablet 1, tablet, By Mouth, 4 times a day, PRN, not to exceed 4 TABLETS PER DAY, # 60 tablet, Refills 0, Tot. Refills 0, Acute, NEEDED, 05/01/20 9:37:00 EST, Route to Pharmacy Electronically, [facility], 168, cm, 04/16/20 8:30:00 EST, Height, [...] Maintenance, 04/16/20 11:06:00 EST, Tablet, [facility] [id number], Partial fill upon patient request if the prescription is for a schedule II opioid drug., 168,... Start Date: 04/16/20 Status: Ordered clozapine 50 mg oral tablet 3 tablet = 150 mg, By Mouth, Daily at bedtime, # 90 tablet, 0 Refills, Maintenance, 04/16/20 11:06:00 EST, Tablet, [facility] [id number], Partial fill upon patient request ifthe prescription is for a schedule II opioid drug.,... Start Date: 04/16/20 Status: Ordered Coreg 6.25 mg oral tablet 6.25 mg, 1, tablet, By Mouth, 2 times a day, # 60 tablet, Refills 0, Tot. Refills 0, Maintenance, 04/16/20 11:05:00 EST, Route to Pharmacy Electronically, [facility] [id number], Partial fill upon patient request, 168, cm, 03/22... Start Date: 04/16/20 Status: Ordered docusate sodium 100 mg oral capsule = 100 mg, By Mouth, 2 times a day, PRN Constipation., # 60 capsule, 3 Refills, Maintenance, 02/29/20 15:13:00 EST, Capsule, [facility] [id number], Partial fill upon patient request if the [...] Maintenance,04/16/20 11:06:00 EST, Route to Pharmacy Electronically, [facility] [id number], Partial fill upon patient request if the [...] mL, 1 Refills, Maintenance, 04/16/20 11:07:00 EST, [place], [place] - [id number],... Start Date: 04/16/20 Status: Ordered lactulose 10 gm/15 ml oral syrup 30 mL, By Mouth, 2 times a day, # 581 mL, 0 Refills, Acute, 03/25/20 11:49:00 EST, [facility],, TAKE 30 ML BY MOUTH 2 [...] 1 Refills, Maintenance, 04/16/20 11:07:00 EST, Solution, [place], [place] - [id number], 168, cm, 04/16/20 8:30:00 EST, Height, 98.7, kg, 04/11/20 2:10:00 EST, Dry Weight Start Date: 04/16/20 Status: Ordered loratadine 10 mg oral tablet See Instructions, TAKE ONE TABLET BY MOUTH DAILY, # 30 tablet, Refills 5, Tot. Refills 5, 05/01/20 8:18:00 EST, Instructions Replace Required Details, Route to Pharmacy Electronically, [facility] [id number], 168, cm, 04/16/20... Start Date: 05/01/20 Status: [...] 1 Refills, Maintenance, 08/07/19 14:23:00 EDT, Tablet, [place], [place] -, 1 tablet By Mouth Daily, [...] 0 Refills, Maintenance, 04/16/20 11:08:00 EST, Gum, [place], [place] - [id number], Partial fill upon patient request if the [...] 5 Refills, Maintenance, 03/05/20 16:50:00 EST, Tablet, [facility] [id number], this is an increased, 1 tablet By [...] Maintenance, 04/16/20 11:09:00 EST, Tablet, [facility] [id number], Partial fill upon patient request if the prescription is for a schedule II opioid drug., 168, cm, 01... 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
--- OUTSIDE RECORDS SUMMARY | 2023-02-09 22:49 | XMS_ITS | Continuity of Care Document ---
Author Name Unknown Organization [facility] Address [address] [place] [address]- Care Team Providers Care Brooch Maker Novelty Name Role Phone Jaki Bishop MD Primary Care Physician Encounter [facility] Date(s): 12/22/22 - 01/21/[address] [id number] Allergies, Adverse Reactions, [...] to COVID vaccine 2Admin Note: VIS GIVEN [id number] 3Admin Note: VIS GIVEN 2008-12 4Admin Note: vis 5Admin Note: vis 02/06/08 Medications albuterol 90 mcg/inh inhalation powder 2 puffs, Inhalation, Every 4 hours, PRN as needed, PRN Wheezing, # 1 each, 1 Refills, Maintenance, 06/28/22 14:49:00 EDT, Powder, [facility] [id number], Partial fill upon patient request if the [...] 01/12/23 12:33:00 EDT, Route to Pharmacy Electronically, [facility] [id number], Partialfill upon patient request if the prescription is fo... Start Date: 01/12/23 Status: Ordered benztropine 1 mg oral tablet 0.5 mg, 0.5, tablet, By Mouth, 2 times a day, # 30 tablet, Refills 3, Tot. Refills 3, Maintenance, 01/14/23 11:23:00 EDT, Route to Pharmacy Electronically, [facility] [id number], Partial fill upon patient request if the [...] 10/18/22 11:46:00 EDT, Route to Pharmacy Electronically, [facility] [id number], Partial fill upon patient request if the prescr... Start Date: 10/18/22 Status: Ordered cloNIDine 0.1 mg oral tablet 0.1 mg, 1, tablet, By Mouth, Daily at bedtime, # 30 tablet, Refills 2, Tot. Refills 2, Maintenance,12/09/22 19:15:00 EDT, Route to Pharmacy Electronically, [facility] [id number], Partial fill upon patient request if the presc... Start Date: 12/09/22 Status: Ordered Creon 12,000 units oral delayed release capsule 1 capsule, By Mouth, 3 times a day, # 90 capsule, 3 Refills, Maintenance, 09/17/22 1:49:00 EDT, EC Capsule, [facility] [id number], Partial fill upon patient request if the [...] 09/17/22 1:48:00 EDT, Route to Pharmacy Electronically, [facility] [id number], 160, cm, 07/26/22 12:51:00 EDT, Height, 89.2, [...] 01/14/23 12:21:00 EDT, Route to Pharmacy Electronically, [facility] [id number], Partial fill upon patient request if the prescription is f... Start Date: 01/14/23 Stop Date: 03/15/23 Status: Ordered haloperidol 2 mg oral tablet 2 mg, 1, tablet, By Mouth, 3 times a day, # 90 tablet, Refills 0, Tot. Refills 0, Maintenance, 01/14/23 11:19:00 EDT, Route to Pharmacy Electronically, [facility] [id number],Partial fill upon patient request if the prescripti... [...] mL, 5 Refills, Maintenance, 12/09/22 19:15:00 EDT, [facility] [id number], 15, 30 mL By Mouth 2 times a day, 165.09, cm, 10/18/22 11:23:00 EDT, Height, 83.7, kg, 10/05/22 21:20:00 EDT, Start Date: 12/09/22 Status: Ordered Lantus Solostar Pen 100 units/mL subcutaneous solution = 6 units, Subcutaneous Injection, Daily in AM, # 10 mL, 2 Refills, Maintenance, 12/09/22 19:15:00 EDT, Solution, [facility] [id number], Partial fill upon patient request if the prescription is for a schedule II opioid drug.,... Start Date: 12/09/22 Status: Ordered magnesium oxide 400 mg oral tablet 1 tablet = 400 mg, By Mouth, 2 times a day, for 30 days, # 60 tablet, 1 Refills, Acute 03/15/23 11:20:00 EST, 01/14/23 11:20:00 EDT, Tablet, [facility] [id number], Partial fill upon patient request if the prescription is for a... Start Date: 01/14/23 Stop Date: 03/15/23 Status: Ordered multivitamin Multiple Vitamins oral tablet 1 tablet, By Mouth, Daily, # 90 tablet, 1 Refills, Maintenance, 10/22/22 19:32:00 EDT, Tablet, [facility] [id number], Partial fill upon patient request if the prescription isfor a schedule II opioid drug., 1 tablet By Mouth D... Start Date: 10/22/22 Status: Ordered Nicotine 2 mg gum 1 each = 2 mg, Chew, Every 2 hours, PRN for smoking cessation, for 4 week(s), # 160 each, 1 Refills, Acute 02/03/23 19:15:00 EST, 12/09/22 19:15:00 EDT, Gum, [facility] [id number], Partial fill upon patient request if the pres... Start Date: 12/09/22 Stop Date: 02/03/23 Status: Ordered pantoprazole 40 mg oral delayed release tablet 1 tablet, By Mouth, Daily, # 30 tablet, 2 Refills, Maintenance, 01/12/23 12:33:00 EDT, 165.09, cm, 10/18/22 11:23:00 EDT, Height, 83.7, kg, 10/05/22 21:20:00 EDT, Dry Weight Start Date: 01/12/23 Status: Ordered Pen [place], 31 G x 5 mm BD Ultra [...] 01/14/23 11:21:00 EDT, Route to Pharmacy Electronically, [facility] [id number], Partial fill upon patient reque... Start Date: 01/14/23 Stop Date: 03/15/23 Status: Ordered risperiDONE 3 mg oral tablet 3 mg, 1, tablet, By Mouth, 2 times a day, # 60 tablet, Refills 0, Tot. Refills 0, Maintenance, 01/14/23 12:39:00 EDT, Route to Pharmacy Electronically, [facility] [id number],please fill THIS risperidone script instead of the... [...] 01/14/23 11:21:00 EDT, Route to Pharmacy Electronically, [facility] [id number] T... Start Date: 01/14/23 Stop Date: 03/15/23 Status: Ordered shower chair shower chair, See Instructions, # 1 each, Refills 0, Tot. Refills 0, Maintenance, use at showering,10/18/22 11:44:00 EDT, Supply Start Date: 10/18/22 Status: Ordered tiotropium 2.5 mcg/inh inhalation aerosol 2 puffs, Inhalation, Daily, # 1 each, 5 Refills, Maintenance, 09/17/22 1:52:00 EDT, Inhaler, [facility] [id number], Partial fill upon patient request if the prescription is for a schedule II opioid drug., 160, cm, 07/26/22 12:... Start Date: 09/17/22 Stop Date: 03/16/23 Status: Ordered traZODone 50 mg oral tablet 50 mg, 1, tablet, By Mouth, Daily at bedtime, # 30 tablet, Refills 2, Tot. Refills 2, Maintenance, 12/09/22 19:15:00 EDT, Route to Pharmacy Electronically, [facility] [id number], Partial fill upon patient request if the [...] Care Team Personnel Name: Lawrence Hendrix Position: [facility] RN Member Role: Primary Care Nurse Name: Nazia Norris RN Position: [facility] Outreach Member Role: Primary Care Nurse Name: Rufino Lloyd RN Position: [facility] RN Member Role: Primary Care Nurse Name: Cristina Carpenter RN Position: [facility] RN Member Role: Primary Care Nurse Name: Rosette Noriega RN Position: [facility] RN Member Role: Primary Care Nurse Name: Mary Hidalgo RN Position: [facility] AMB Nurse Member Role: Primary Care Nurse Name: Sissy Duran RN Position: [facility] AMB Nurse Member Role: Primary Care Nurse Name: Erlinda Hartman NP Position: [facility] Associate Professional Member Role: Primary Care Nurse Address: Address: [address] [place] [id number] Name: Shante Solis RN Position: [facility] RN Member Role: Primary Care Nurse Name: Joshua Prakash RN Position: [facility] RN Member Role: Primary Care Nurse Name: Bettie Vanegas RN Position: [facility] SN RN Member Role: Primary Care Nurse Name: Jay Marroquin RN Position: [facility] RN Member Role: Primary Care Nurse Name: Adrianna Church RN Position: [facility] RN Member Role: Primary Care Nurse Name: Sue Purdy RN Position: [facility] RN Member Role: Primary Care Nurse Name: Hector Perez RN Position: [facility] ED RN W/OE and Tasks Member Role: Primary Care Nurse Name: Aleena Vizcaino RN Position: [facility] RN Member Role: Primary Care Nurse Name: Kacey Wilhelm RN Position: [facility] RN Member Role: Primary Care Nurse Name: Leslie Malloy RN Position: [facility] RN Member Role: Primary Care Nurse Name: Yesenia Hu LPN Position: [facility] RN Member Role: Primary Care Nurse Name: Joaquina Herrera RN Position: [facility] RN Member Role: Primary Care Nurse Name: Diego Bell RN Position: [facility] RN Member Role: Primary Care Nurse Name: Ese Grey Position: [facility] RN Member Role: Primary Care Nurse Name: Chela Najera RN Position: [facility] RN Member Role: Primary Care Nurse Name: Tootie Gonzalez RN Position: [facility] RN Member Role: Primary Care Nurse Name: Nancy Monte RN Position: [facility] RN Member Role: Primary Care Nurse Name: Marilee Starkey Position: [facility] RN Member Role: Primary Care Nurse Name: Silvina Dodd RN Position: [facility] RN Member Role: Primary Care Nurse Name: Flaco Clifford DO Position: [facility] Renal MD Member Role: Lifetime Consulting Physician Address: Address: [address] [place], [place] [address] [place] [address]- Name: Marilee Richardson RN Position: [facility] RN Member Role: Primary Care Nurse Name: Rufino Johnson RN Position: [facility] RN Member Role: Primary Care Nurse Name: Judson Larry Position: [facility] RN Member Role: Primary Care Nurse Name: Jovita Camargo RN Position: [facility] RN Member Role: Primary Care Nurse Name: Bruna Pizarro Position: [facility] RN Member Role: Primary Care Nurse Name: Ju Zhu Position: [facility] RN Member Role: Primary Care Nurse Name: Ester Palomares Position: [facility] RN Member Role: Primary Care Nurse Name: Emma Colbert RN Position: [facility] RN Member Role: Primary Care Nurse Name: Hallie Gambino RN Position: [facility] Onco RN Member Role: Primary Care Nurse Name: Maya Ambriz RN Position: [facility] RN Member Role: Primary Care Nurse Name: Bhavna Rendon LPN Position: [facility] RN Member Role: Primary Care Nurse Name: Luis Burton RN Position: [facility] RN Member Role: Primary Care Nurse Name: Jaki Bishop MD Position: [facility] Physician - Primary Care Member Role: PCP Address: Address: [address] [place] [address] Name: Lucian Krause RN Position: [facility] RN Member Role: Primary Care Nurse Name: Misty Tariq Position: [facility] RN Member Role: Primary Care Nurse Name: Isaiah Combs RN Position: [facility] RN Member Role: Primary Care Nurse Name: Leslie Ward RN Position: [facility] RN Member Role: Primary Care Nurse Name: Jacki Gomes RN Position: [facility] RN Member Role: Primary Care Nurse Name: Derek Smith RN Position: [facility] RN Member Role: Primary Care Nurse Name: Perri Smith RN Position: [facility] RN Member Role: Primary Care Nurse Name: Mar Brothers RN Position: [facility] RN Member Role: Primary Care Nurse Name: Ivette Shankar RN Position: [facility] RN Member Role: Primary Care Nurse Name: Laura Mary RN Position: [facility] SN RN Member Role: Primary Care Nurse Name: Mary Guillen RN Position: [facility] RN Member Role: Primary Care Nurse Name: Octavio Box RN Position: [facility] RN Member Role: Primary Care Nurse Name: Nazia Tapia RN Position: [facility] RN Member Role: Primary Care Nurse Name: Pat Jackson RN Position: [facility] RN Member Role: Primary Care Nurse Name: Caren Hernandez RN Position: [facility] RN Supv Member Role: Primary Care Nurse Name: Nely Wong RN Position: [facility] RN Member Role: Primary Care Nurse Name: Erica Brandon RN Position: [facility] RN Member Role: Primary Care Nurse Name: Adrianna Gonzalez RN Position: [facility] RN Member Role: Primary Care Nurse Name: Chinyere Espinoza RN Position: [facility] RN Member Role: Primary Care Nurse Name: Teresita Diallo RN Position: [facility] RN Member Role: Primary Care Nurse Name: Tennille Mcgarry RN Position: [facility] Hospital Rf Test Engineer Member Role: Primary Care Nurse Name: Vicky Salazar RN Position: [facility] RN Member Role: Primary Care Nurse Name: Spencer Jameson RN Position: [facility] RN Member Role: Primary Care Nurse Name: Jalen Mullins Position: [facility] RN Member Role: Primary Care Nurse Care Team Related Persons Name: MARYANNE KELLER Address: [address] [place] [address] Name: MARYANNE KELLER Address: [address] [place] [id number] Name: MARYANNE KELLER JR Address: [address] [place] [address] Name: GEORGIA KELLER Address: [place] [address] Name: BALDEV POLANCO Address: [place] [address]
--- OUTSIDE RECORDS SUMMARY | 2023-02-09 22:49 | XMS_ITS | Continuity of Care Document ---
Author Name Unknown Organization [facility] Address [address] [place] [address]- Care Team Providers Care Thermo Processor Name Role Phone Jaki Bishop MD Primary Care Physician [facility] Date[facility]): 10/29/22 - 11/28/[address] [address]- Allergies, Adverse Reactions, Alerts Substance Reaction Severity [...] to COVID vaccine 2Admin Note: VIS GIVEN [id number] 3Admin Note: VIS GIVEN 2008- 4Admin Note: vis 5Admin Note: vis 02/06/08 Medications albuterol 90 mcg/inh inhalation powder 2 puffs, Inhalation, Every 4 hours, PRN as needed, PRN Wheezing, # 1 each, 1 Refills, Maintenance, 06/28/22 14:49:00 EDT, Powder, [facility] [id number], Partial fill upon patient request if the [...] 07/16/22 16:04:00 EDT, Route to Pharmacy Electronically, [facility] [id number], Partialfill upon patient request if the prescription is fo... Start Date: 07/16/22 Status: Ordered benztropine 1 mg oral tablet 0.5 mg, 0.5, tablet, By Mouth, 2 times a day, # 30 tablet, Refills 3, Tot. Refills 3, Maintenance, 09/17/22 1:51:00 EDT, Route to Pharmacy Electronically, [facility] [id number], Partial fill upon patient request if the [...] 10/18/22 11:46:00 EDT, Route to Pharmacy Electronically, [facility] [id number], Partial fill upon patient request if the prescr... Start Date: 10/18/22 Status: Ordered cloNIDine 0.1 mg oral tablet 0.1 mg, 1, tablet, By Mouth, Daily at bedtime, # 30 tablet, Refills 2, Tot. Refills 2, Maintenance,10/18/22 11:46:00 EDT, Route to Pharmacy Electronically, [facility] [id number], Partial fill upon patient request if the presc... Start Date: 10/18/22 Status: Ordered Creon 12,000 units oral delayed release capsule 1 capsule, By Mouth, 3 times a day, # 90 capsule, 3 Refills, Maintenance, 09/17/22 1:49:00 EDT, EC Capsule, [facility] [id number], Partial fill upon patient request if the [...] 09/17/22 1:48:00 EDT, Route to Pharmacy Electronically, [facility] [id number], 160, cm, 07/26/22 12:51:00 EDT, Height, 89.2, [...] 10/18/22 11:46:00 EDT, Route to Pharmacy Electronically, [facility] [id number], Partial fill upon patient request if the [...] mL, 5 Refills, Maintenance, 09/17/22 1:49:00 EDT, [facility] [id number], 15, 30 mL By Mouth 2 times a day, 160, cm, 07/26/22 12:51:00 EDT, Height, 89.2, kg, 07/21/22 3:29:00 EDT, Dry Weight Start Date: 09/17/22 Status: Ordered Lantus Solostar Pen 100 units/mL subcutaneous solution = 6 units, Subcutaneous Injection, Daily in AM, # 10 mL, 2 Refills, Maintenance, 04/29/22 14:34:00 EST, Solution, [place], [place] - [id number], Partial fill upon patient request if the prescription is for a schedule II opioid drug.,... Start Date: 04/29/22 Status: Ordered magnesium oxide 400 mg oral tablet 1 tablet = 400 mg, By Mouth, Daily, for 14 days, # 14 tablet, 0 Refills, Acute 12/02/22 20:51:00 EDT, 11/18/22 20:51:00 EDT, Tablet, [place], [place] - [id number], Partial fill upon patient request if the prescription is for a schedul... Start Date: 11/18/22 Stop Date: 12/02/22 Status: Ordered multivitamin Multiple Vitamins oral tablet 1 tablet, By Mouth, Daily, # 90 tablet, 1 Refills, Maintenance, 10/22/22 19:32:00 EDT, Tablet, [place], [place] - [id number], Partial fill upon patient request if the prescription isfor a schedule II opioid drug., 1 tablet By Mouth D... Start Date: 10/22/22 Status: Ordered Nicotine 2 mg gum 1 each = 2 mg, Chew, Every 2 hours, PRN for smoking cessation, for 4 week(s), # 160 each, 1 Refills, Acute 12/13/22 11:41:00 EDT, 10/18/22 11:41:00 EDT, Gum, [facility] [id number], Partial fill upon patient request if the pres... Start Date: 10/18/22 Stop Date: 12/13/22 Status: Ordered pantoprazole 40 mg oral delayed release tablet 1 tablet, By Mouth, Daily, # 30 tablet, 2 Refills, Maintenance, 11/10/22 11:02:00 EDT, 165.09, cm, 10/18/22 11:23:00 EDT, Height, 83.7, kg, 10/05/22 21:20:00 EDT, Dry Weight Start Date: 11/10/22 Status: Ordered Pen [place], 31 G x 5 mm BD Ultra [...] 10/12/22 10:21:00 EDT, Route to Pharmacy Electronically, [facility] [id number], Partial fill upon patient request if the prescription... Start Date: 10/12/22 Stop Date: 11/11/22 Status: Ordered risperiDONE 3 mg oral tablet 3 mg, 1, tablet, By Mouth, Daily at bedtime, # 30 tablet, Refills 0, Tot. Refills 0, Maintenance, 10/12/22 10:21:00 EDT, Route to Pharmacy Electronically, [place], [place] - [id number], Partial fill upon patient request if the [...] 5 Refills, Maintenance, 09/17/22 1:52:00 EDT, [facility] [place] [place] [facility] [id number], Partial fill upon patient request if the prescription is for a schedule II opioid drug., 160, cm, 07/26/22 12:... Start Date: 09/17/22 Stop Date: 03/16/23 Status: Ordered traZODone 50 mg oral tablet 50 mg, 1, tablet, By Mouth, Daily at bedtime, # 30 tablet, Refills 2, Tot. Refills 2, Maintenance, 09/17/22 1:47:00 EDT, Route to Pharmacy Electronically, [place], [place] - [id number], Partial fill upon patient request if the [...] Care Team Personnel Name: Lawrence Hendrix Position: [facility] RN Member Role: Primary Care Nurse Name: Nazia Norris RN Position: [facility] Outreach Member Role: Primary Care Nurse Name: Rufino Lloyd RN Position: [facility] RN Member Role: Primary Care Nurse Name: Cristina Carpenter RN Position: [facility] RN Member Role: Primary Care Nurse Name: Rosette Noriega RN Position: [facility] SN RN Member Role: Primary Care Nurse Name: Mary Hidalgo RN Position: [facility] AMB Nurse Member Role: Primary Care Nurse Name: Sissy Duran RN Position: [facility] AMB Nurse Member Role: Primary Care Nurse Name: Rohit Zavaleta RN Position: [facility] RN Member Role: Primary Care Nurse Name: Erlinda Hartman NP Position: [facility] Associate Professional Member Role: Primary Care Nurse Address: Address: [address] [place] [address] Name: Shante Solis RN Position: [facility] RN Member Role: Primary Care Nurse Name: Joshua Prakash RN Position: [facility] RN Member Role: Primary Care Nurse Name: Bettie Vanegas RN Position: [facility] SN RN Member Role: Primary Care Nurse Name: Jay Marroquin RN Position: [facility] RN Member Role: Primary Care Nurse Name: Adrianna Church RN Position: [facility] RN Member Role: Primary Care Nurse Name: Sue Purdy RN Position: [facility] RN Member Role: Primary Care Nurse Name: Hector Perez RN Position: [facility] RN Member Role: Primary Care Nurse Name: Aleena Vizcaino RN Position: [facility] RN Member Role: Primary Care Nurse Name: Kacey Wilhelm RN Position: [facility] RN Member Role: Primary Care Nurse Name: Leslie Malloy RN Position: [facility] RN Member Role: Primary Care Nurse Name: Yesenia Hu LPN Position: [facility] RN Member Role: Primary Care Nurse Name: Joaquina Herrera RN Position: [facility] RN Member Role: Primary Care Nurse Name: Diego Bell RN Position: [facility] RN Member Role: Primary Care Nurse Name: Ese Grey Position: [facility] RN Member Role: Primary Care Nurse Name: Chela Najera RN Position: [facility] RN Member Role: Primary Care Nurse Name: Tootie Gonzalez RN Position: [facility] RN Member Role: Primary Care Nurse Name: Nancy Monte RN Position: [facility] RN Member Role: Primary Care Nurse Name: Marilee Starkey Position: [facility] RN Member Role: Primary Care Nurse Name: Silvina Dodd RN Position: [facility] RN Member Role: Primary Care Nurse Name: Flaco Clifford DO Position: [facility] Renal MD Member Role: Lifetime Consulting Physician Address: Address: [address] [place] [address] [facility] [place] [address]- Name: Marilee Richardson RN Position: [facility] RN Member Role: Primary Care Nurse Name: Rufino Johnson RN Position: [facility] ED RN W/OE and Tasks Member Role: Primary Care Nurse Name: Judson Larry Position: [facility] RN Member Role: Primary Care Nurse Name: Jovita Camargo RN Position: [facility] RN Member Role: Primary Care Nurse Name: Bruna Pizarro Position: [facility] RN Member Role: Primary Care Nurse Name: Ju Zhu Position: [facility] RN Member Role: Primary Care Nurse Name: Ester Palomares Position: [facility] RN Member Role: Primary Care Nurse Name: Emma Colbert RN Position: [facility] RN Member Role: Primary Care Nurse Name: Hallie Gambino RN Position: [facility] Onco RN Member Role: Primary Care Nurse Name: Maya Ambriz RN Position: [facility] RN Member Role: Primary Care Nurse Name: Bhavna Rendon LPN Position: [facility] RN Member Role: Primary Care Nurse Name: Luis Burton RN Position: [facility] RN Member Role: Primary Care Nurse Name: Jaki Bishop MD Position: [facility] Physician - Primary Care Member Role: PCP Address: Address: [address] [place] [id number]- [place] Name: Lucian Krause RN Position: [facility] RN Member Role: Primary Care Nurse Name: Xin Tariqorah Position: [facility] RN Member Role: Primary Care Nurse Name: Isaiah Combs RN Position: [facility] RN Member Role: Primary Care Nurse Name: Leslie Ward RN Position: [facility] RN Member Role: Primary Care Nurse Name: Jacki Gomes RN Position: [facility] RN Member Role: Primary Care Nurse Name: Derek Smith RN Position: [facility] RN Member Role: Primary Care Nurse Name: Perri Smith RN Position: [facility] RN Member Role: Primary Care Nurse Name: Mar Brothers RN Position: [facility] RN Member Role: Primary Care Nurse Name: Ivette Shankar RN Position: [facility] RN Member Role: Primary Care Nurse Name: Laura Mary RN Position: [facility] SN RN Member Role: Primary Care Nurse Name: Mary Guillen RN Position: [facility] RN Member Role: Primary Care Nurse Name: Octavio Box RN Position: [facility] RN Member Role: Primary Care Nurse Name: Nazia Tapia RN Position: [facility] RN Member Role: Primary Care Nurse Name: Pat Jackson RN Position: [facility] RN Member Role: Primary Care Nurse Name: Caren Hernandez RN Position: [facility] RN Supv Member Role: Primary Care Nurse Name: Perri Bryant RN Position: [facility] RN Member Role: Primary Care Nurse Name: Nely Wong RN Position: [facility] RN Member Role: Primary Care Nurse Name: Erica Brandon RN Position: [facility] RN Member Role: Primary Care Nurse Name: Adrianna Gonzalez RN Position: [facility] RN Member Role: Primary Care Nurse Name: Annmarie Feldman RN Position: [facility] PCO w/OE and EZ Script Member Role: Primary Care Nurse Name: Chinyere Espinoza RN Position: [facility] RN Member Role: Primary Care Nurse Name: Teresita Diallo RN Position: [facility] RN Member Role: Primary Care Nurse Name: Tennille Mcgarry RN Position: [facility] Hospital Construction Code Administrator Member Role: Primary Care Nurse Name: Vicky Salazar RN Position: [facility] RN Member Role: Primary Care Nurse Name: Spencer Jameson RN Position: [facility] RN Member Role: Primary Care Nurse Name: Jalen Mullins Position: [facility] RN Member Role: Primary Care Nurse Care Team Related Persons Name: MARYANNE KELLER Address: home [address] [place] [address] Name: MARYANNE KELLER Address: home [address] [address] Name: MARYANNE KELLER JR Address: home [address] [place] [address] Name: GEORGIA KELLER Address: [place] [address] Name: BALDEV POLANCO Address: [place] [address]
--- OUTSIDE RECORDS SUMMARY | 2023-02-09 22:49 | XMS_ITS | Continuity of Care Document ---
Author Name Unknown Organization [facility] Address [address] [place] [address]- Care Team Providers Care Digital Print Operator Name Role Phone Jaki Bishop MD Primary Care Physician [phone] [facility]counter [facility] Date[facility]s): 02/19/20 - 03/20/[address] [address]- Allergies, Adverse Reactions, Alerts Substance Reaction Severity [...] Given Permanently Refused 1Admin Note: VIS GIVEN [id number] 2Admin Note: VIS GIVEN 2008-12 3Admin Note: vis 4Admin Note: vis 02/06/08 Medications acetaminophen 325 mg oral tablet 1, tablet, By Mouth, 4 times a day, PRN, no MORE THAN 4 TABLETS PER DAY., # 60 tablet, Refills 1, Tot. Refills 1, Maintenance, NEEDED, 03/06/20 9:09:00 EST, Route to Pharmacy Electronically, [facility] [id number], 168, cm,... Start Date: 03/06/20 Status: Ordered [...] 03/05/20 16:49:00 EST, Route to Pharmacy Electronically, [facility] [id number], Partial fill upon patient request, 168, cm, 11/... Start Date: 03/05/20 Status: Ordered docusate sodium 100 mg oral capsule = 100 mg, By Mouth, 2 times a day, PRN Constipation., # 60 capsule, 3 Refills, Maintenance, 02/29/20 15:13:00 EST, Capsule, [facility] [id number], Partial fill upon patient request if the prescription is for a schedule II opio... Start Date: 02/29/20 Stop Date: 06/28/20 Status: Ordered gabapentin 100 mg oral capsule 200 mg, 2, capsule, By Mouth, 2 times a day, # 120 capsule, Refills 0, Tot. Refills 0, Maintenance,03/05/20 16:51:00 EST, Route to Pharmacy Electronically, [facility] [id number], Partial fill upon patient request if the [facility]... Start Date: 03/05/20 Status: Ordered Humalog Kwik Pen 100 units/mL subcutaneous injection See Instructions, 4 Units for bood sugar above 120 mg/dl and then add 2 Units for every 50 mg/dl rise above 120. Three times a day before meals., # 15 mL, 6 Refills, Maintenance, 03/05/20 16:52:00 EST, [facility] [id number],... Start Date: 03/05/20 Status: Ordered lactulose 10 [...] Replace Required Details, Route to Pharmacy Electronically, [facility] [id number], 168, cm, 12/17/19... Start Date: 02/01/20 Status: [...] 1 Refills, Maintenance, 08/07/19 14:23:00 EDT, Tablet, [place], [place] -, 1 tablet By Mouth Daily, [...] 5 Refills, Maintenance, 03/05/20 16:50:00 EST, Tablet, [facility] [id number], this is an increased, 1 tablet By [...] 3 Refills, Maintenance, 03/05/20 16:51:00 EST, Tablet, [place], [place] - [id number], Partial fill upon patient request if the prescription is for a schedule II opioid drug., 168, cm, 11... Start Date: 03/05/20 Stop Date: 02/28/21 Status: Ordered Zenpep 10,000 units-32,000 units-42,000 units oral delayed release capsule 1 capsule, By Mouth, 3 times a day, # 90 capsule, 6 Refills, Maintenance, 03/06/20 9:09:00 EST, [facility] [place] - [id number], 1 capsule By Mouth 3 times a [...] Active H/O tubal ligation(Confirmed) Active BHN/ CP Edging Supervisor/Janet Pandey [phone](Confirmed) Active History of cholecystectomy(Confirmed) Active Hypertension(Confirmed) Active [...]
--- OUTSIDE RECORDS SUMMARY | 2023-02-09 22:49 | XMS_ITS | Continuity of Care Document ---
Author Name Unknown Organization [facility] Address [address] [place] [address]- Care Team Providers Care Gatekeeper Name Role Phone Jaki Bishop MD Primary Care Physician [facility] Date[facility]s): 08/07/20 - 09/06/[address] [address] Allergies, Adverse Reactions, Alerts [...] to COVID vaccine 2Admin Note: VIS GIVEN [id number] 3Admin Note: VIS GIVEN 2008-12 4Admin Note: vis 5Admin Note: vis 02/06/08 Medications acetaminophen 325 mg oral tablet 1, tablet, By Mouth, 4 times a day, PRN, not to exceed 4 TABLETS PER DAY. Not to exceed 2000 mg/day. PRN Pain, # 60 tablet, Refills 5, Tot. Refills 5, Maintenance, NEEDED, 08/14/20 16:55:00 EDT, Route to Pharmacy Electronically, [facility]... Start Date: 08/14/20 Status: Ordered Clozaril [...] EST, Route to Pharmacy Electronically, [facility] [id number], Partial fill upon patient request if the prescr... Start Date: 05/26/20 Stop Date: 11/22/20 Status: Ordered gabapentin 100 mg oral capsule 200 mg, 2, capsule, By Mouth, 2 times a day, # 120 capsule, Refills 5, Tot. Refills 5, Maintenance,05/28/20 13:46:00 EST, Route to Pharmacy Electronically, [facility] [id number], Partial fill upon patient request if the presc... Start Date: 05/28/20 Status: Ordered Humalog Kwik Pen 100 units/mL subcutaneous injection See Instructions, 3 Units for bood sugar above 120 mg/dl and then add 2 Units for every 50 mg/dl rise above 120. Three times a day before meals., # 15 mL, 1 Refills, Maintenance, 04/16/20 11:07:00 EST, [facility] [id number],... Start Date: 04/16/20 Status: Ordered lactulose 10 [...] 1 Refills, Maintenance, 08/20/20 16:55:00 EDT, Solution, [facility], [place] - [id number], 168, cm, 04/16/20 8:30:00 EST, Height, 98.7, kg, 03/22... Start Date: 08/20/20 Status: Ordered loratadine 10 mg oral tablet See Instructions, TAKE ONE TABLET BY MOUTH DAILY, # 30 tablet, Refills 5, Tot. Refills 5, 05/01/20 8:18:00 EST, Instructions Replace Required Details, Route to Pharmacy Electronically, [facility], [place] - [id number], 168, cm, 04/16/20... Start Date: 05/01/20 Status: [...] 5 Refills, Maintenance, 07/14/20 16:30:00 EDT, Tablet, [facility] [id number], this is an increased, 1 tablet By Mouth 2 times a day,x30 days, 168, cm, 04/16/20 8:30:00 EST, Heigh... Start Date: 07/14/20 Stop Date: 01/10/21 Status: Ordered torsemide 20 mg oral tablet 1 tablet = 20 mg, By Mouth, Daily, # 30 tablet, 1 Refills, Maintenance, 04/16/20 11:09:00 EST, Tablet, [facility] [id number], Partial fill upon patient request if the prescription is for a schedule II opioid drug., 168, cm, 01... Start Date: 04/16/20 Stop Date: 04/11/21 Status: Ordered Zenpep 10,000 units-32,000 units-42,000 units oral delayed release capsule 1 capsule, By Mouth, 3 times a day, # 90 capsule, 0 Refills, Maintenance, 04/16/20 11:09:00 EST, [facility] [id number], 1 capsule By Mouth 3 times a [...] Active H/O tubal ligation(Confirmed) Active BHN/BH CP Oil Dispatcher/Janet salvador [facility] [phone](Confirmed) Active History of cholecystectomy(Confirmed) Active Hypertension(Confirmed) Active [...]
--- OUTSIDE RECORDS SUMMARY | 2023-02-09 22:49 | XMS_ITS | Continuity of Care Document ---
Author Name Unknown Organization [facility] Address [address] [place] [address]- Care Team Providers Care White Sugar Pan Tank Operator Name Role Phone Jaki Bishop MD Primary Care Physician Encounter [facility] Date(s): 08/17/19 - 08/24/19 [facility] [address] [place] [address]- [facility] Attending Physician: Jonathan Caraballo MD Referring Physician: Jaki [...] Given Patient Refuses 1Admin Note: VIS GIVEN [id number] 2Admin Note: VIS GIVEN 2008-12 3Admin Note: vis 4Admin Note: vis 02/06/08 Medications acetaminophen 325 mg oral tablet 1, tablet, By Mouth, 4 times a day, PRN, no MORE THAN 4 TABLETS PER DAY., # 60 tablet, Refills 2, Tot. Refills 0, Acute, NEEDED, 08/07/19 23:17:00 EDT, Route to Pharmacy Electronically, [facility], 166, cm, 05/28/19 11:08:00 [...] 08/07/19 14:24:00 EDT, Route to Pharmacy Electronically, [facility] [place], [place] -, 166, cm, 05/28/19 11:08:00 EDT, Height, 91.8, kg, 02/23/19 17... Start Date: 08/07/19 Status: Ordered docusate sodium 100 mg oral capsule 100 mg, 1, capsule, By Mouth, 2 times a day, # 60 capsule, Refills 11, Tot. Refills 11, Maintenance, 02/21/19 14:45:44 EST, Route to Pharmacy Electronically, [id number], [facility] [place], [place] -, 168, cm, 02/14/19... Start Date: [...] Maintenance,03/27/19 16:10:00 EST, Route to Pharmacy Electronically, [facility] #[id number], 166, cm, 03/27/19 15:26:00 EST, Height, 91.8, kg, 02/23/19 17:03:... Start Date: 03/27/19 Stop Date: 10/23/19 Status: Ordered Glucerna (Vanilla Flavor) Glucerna (Vanilla Flavor), See Instructions, # 60 each, Refills 11, Tot. Refills 11, Maintenance, Drink 1 can BID. 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 Fax to Anna ( [facility], #[phone]), 07/26/19 15... Start Date: 07/26/19 Status: Ordered Humalog Kwik Pen 100 units/mL subcutaneous injection See Instructions, 4 Units for bood sugar above 120 mg/dl and then add 2 Units for every 50 mg/dl rise above 120. Three times a day before meals., # 15 mL, 6 Refills, Maintenance, 05/04/19 12:52:00 EST, [place], [place] - , Humalog ins... Start Date: 05/04/19 Status: Ordered Lantus Solostar Pen 100 units/mL subcutaneous solution See Instructions, This is an increase in dose. 32u QAM & 44 units QHS. Subcutaneous Injection Daily 30 days, # 5 each, 6 Refills, Maintenance, 08/17/19 14:52:00 EDT, Dry Weight Start Date: 08/17/19 Status: Ordered MiraLax oral powder for reconstitution = 17 Gm, By Mouth, 2 times a day, PRN Other, dissolve in water before taking. goal 2-3 bowel movements daily, # 527 Gm, 2 Refills, Maintenance, 07/26/19 8:25:00 EDT, REC Powder, [place], [place] -, 17 Gm By Mouth 2 times a day,PRN:Oth... Start Date: 07/26/19 Status: Ordered multivitamin Multiple Vitamins oral tablet 1 tablet, By Mouth, Daily, # 90 tablet, 1 Refills, Maintenance, 08/07/19 14:23:00 EDT, Tablet, [place], [place] -, 1 tablet By Mouth Daily, [...] Weight Start Date: 07/30/19 Status: Ordered Pen [place], 31 G x 8 mm BD Ultra [...] Attn Dr. Mariano Andrade, Outpatient Psychiatry, at [phone]., See Instructions, # 1 application, Refills 0, [...] 04/20/19 10:38:00 EST, Route to Pharmacy Electronically, [facility] #[id number], 166, cm, 04/20/19 10:17:00 EST, Height, 91.8, kg, 02/23/19 17:03:00 EST, . Start Date: 04/20/19 Status: Ordered torsemide 20 mg oral tablet 2 tablet = 40 mg, By Mouth, Daily, # 180 tablet, 11 Refills, Maintenance, 04/20/19 10:38:00 EST, Tablet, [facility] #[id number], Replaces lower dose, 166, cm, 04/20/19 10:17:00 [...] Active H/O tubal ligation(Confirmed) Active BHN/BH CP Screen Printing Stencil Preparer/Janet Pandey [phone](Confirmed) Active History of cholecystectomy(Confirmed) Active Hypertension(Confirmed) Active [...]
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
[2023-02-10 06:00] VITALS: BP 127/77; PULSE 90; RESP 18; TEMP 36.2; O2SAT 94
[2023-02-10 07:00] VITALS: BMI 31.0
[2023-02-10 08:47] LABS: Estimated Average Glucose 151 mg/dL; Hemoglobin A1c % 6.9 % (<6.0)
[2023-02-10 08:57] LABS: Alanine Aminotransferase 29 U/L (0-31); Alkaline Phosphatase 183 U/L (39-117); Anion Gap 11 (12-20); Aspartate Amino Transferase 42 U/L (5-31); Bilirubin Total 0.3 mg/dL (0.0-1.0); Blood Urea Nitrogen 16 mg/dL (9-16); Calcium 10.3 mg/dL (8.4-10.2); Carbon Dioxide 26 mmol/L (22-29); Chloride 103 mmol/L (96-108); Cholesterol 241 mg/dL (<200); Estimated Glomerular Filt Rate > 60; Glucose Fasting 140 mg/dL (60-99); HDL Cholesterol 80 mg/dL (>40); LDL Cholesterol Calculated 134 mg/dL (<100); Magnesium 1.6 mg/dL (1.6-2.6); Potassium 4.3 mmol/L (3.3-5.1); Sodium 136 mmol/L (135-145); Total Protein 7.9 g/dL (6.5-8.0); Triglycerides 139 mg/dL (<150)
[2023-02-10] MEDS: Magnesium Oxide 400 MG TABLET PO ×2 (08:59→17:50)
[2023-02-10] MEDS: Folic Acid 1 MG TABLET PO (08:59)
[2023-02-10] MEDS: Benztropine Mesylate 0.5 MG TABLET PO ×2 (08:59→20:11)
[2023-02-10] MEDS: risperiDONE 3 MG TABLET PO ×2 (09:00→20:11)
[2023-02-10] MEDS: Lactulose 20 GM/30 ML SOLUTION PO ×2 (09:00→20:10)
[2023-02-10] MEDS: Omeprazole 20 MG CAPSULE.DR PO (09:00)
[2023-02-10] MEDS: carvediloL 3.125 MG TABLET PO ×2 (09:00→20:11)
[2023-02-10] MEDS: Multivitamin TABLET 1 TAB PO (09:00)
[2023-02-10] MEDS: Thiamine HCL 100 MG TABLET PO (09:00)
[2023-02-10] MEDS: cloNIDine HCL 0.1 MG TABLET PO (09:00)
[2023-02-10] MEDS: QUEtiapine Fumarate 100 MG TABLET PO (09:05)
[2023-02-10] MEDS: Nicotine Polacrilex Lozenge 2 MG LOZENGE BUCCAL (09:06)
[2023-02-10] MEDS: Furosemide 40 MG TABLET PO ×2 (09:06→14:41)
[2023-02-10] MEDS: Insulin Glargine,Hum.rec.anlog 100 UNIT/ML 10 ML VIAL 6 UNIT SUBCUT (09:06)
[2023-02-10] MEDS: Tiotropium Bromide 2.5 mcg 1 PUFF/2.5 MCG MIST.INHAL 2 PUFF INHALE (09:07)
[2023-02-10 09:13] LABS: Free T4 (Free Thyroxine) 1.03 ng/dL (0.71-1.85); Thyroid Stimulating Hormone 1.15 uIU/mL (0.32-4.0)
[2023-02-10 09:28] LABS: Folate 18.3 ng/mL (> or = 4.0); Vitamin B12 931 pg/mL (200-900)
--- NOTE | 2023-02-10 11:34 | P.CONHOSP_ITS ---
History of Present Illness Data of Consult Service Date: 02/10/23 Primary Care Provider: Unknown Physician HPI Reason for consult: Admission H&P Pt is a 57-year-old female with a PMH significant for?insulin-dependent diabetes type 2,HFrEF, chronic pancreatitis, HTN, chronic constipation, cirrhosis, SBP, hyperammonemia encephalopathy, and schizophrenia/bipolar disorder who is admitted to M5 psychiatry unit for SI s/p attempting to strangle herself, potentially in the setting of alcohol and cocaine use. Medical consult for admission H&P. ?Patient presents as disorganized, occasionally answering appropriately and at other times nonsensically. Patient initially states she has been experiencing increased shortness of breath, though later states it is at her baseline. Patient also complains of lower leg edema and cough. Patient is aware of some of her medical conditions, and some of their symptoms, though it is unclear if she is currently experiencing the symptoms or she has so in the past. It is difficult to gauge exactly how accurate her HPI thus is. At end of interview patient states she feels ?fine?. Review of Systems 2 Review of Systems: Difficult to obtain due to patient's mentation [facility] Medical History Hypertension Schizoaffective disorder, bipolar type without good prognostic features Schizophrenia, paranoid type Steatohepatitis Class 2 obesity Pulmonary arterial hypertension Chronic pancreatitis Dyshidrotic eczema Diabetes Cirrhosis of liver Chronic low back pain CKD (chronic kidney disease) Biventricular heart failure Asthma Anemia Surgical History History of splenectomy Hx of cholecystectomy Household Members: None Housing: Apartment Housing Other:: SAME APARTMENT FOR 35 YEARS Do you presently have visiting nurse or other home services: No Unable to assess alcohol history related to: Unknown Patient Tobacco Use Status: Former Tobacco user Tobacco use type: Cigarette Cigarette Packs Per Day: 0.25 Cigarettes Per Day: 5.0 Years Smoked: 40 Smoked in Last 30 Days: No e-Cigarette/Vaping Use: Never Used Patient Interested in Nicotine Replacement: No Patient Given Instructions on How to Stop Smoking: No Second Hand Smoke Exposure: No Use of substances other than those prescribed or required for medical reasons: Yes Substance Use Type: Crack/Cocaine Substance Use Frequency: Chronic Longstanding Last Used Substance: Days (ago) Currently Displaying Signs/Symptoms of Drug Intoxication Withdrawal: No Any prior treatment program specific to substance use: No Do you feel safe in your current relationship?: No Current Relationship Is there a partner from a previous relationship who is making you feel unsafe now?: No Are you made to feel afraid or neglected: No Advance Directives: Yes Advance Directives Information Provided: No Advance Directives on File: Yes Advance Directives Date on File: 11/25/21 Do you have thoughts of harming others: None Do you have a plan to hurt others: No Plan Recently lost weight without trying: Unsure How much weight loss: Unsure Eating poorly because of decreased appetite: Yes Nutrition screen score: 5 Nutrition Risks: No Nutritional Risk Patient : No : No Poor oral hygiene: No service: No Sexual orientation: Did not discuss Meds Allergies Allergy/AdvReac Type Severity Reaction Status Date / Time olanzapine [From Zyprexa] Allergy Unknown Verified 09/03/21 14:49 prednisone Allergy Unknown Verified 09/03/21 14:49 NSAIDS (Non-Steroidal AdvReac Mild Abdominal Verified 09/03/21 14:49 Anti-Inflamma Pain egg AdvReac Gastrointestinal Verified 12/16/22 16:32 Upset Active Medications: Current Medications Acetaminophen (Acetaminophen 325 Mg Tablet) 650 mg PO Q6H PRN PRN Reason: Headache/Pain Mild Scale (1-3) Al Hydroxide/Mg Hydroxide (Magnesium Hydrox/Alum Hydrox 30 Ml Oral.Susp) 30 ml PO Q6H PRN PRN Reason: Heartburn/Nausea Lipase/Protease/Amylase (Lipase/Prot/Amylase 12/38/60k Capsule.Dr) 1 cap PO [facility] Benztropine Mesylate (Benztropine Mesylate 0.5 Mg Tablet) 0.5 mg PO BID [facility] Last Admin: 02/10/23 08:59 Dose: 0.5 mg Carvedilol (Carvedilol 3.125 Mg Tablet) 3.125 mg PO BID [facility]; Protocol Last Admin: 02/10/23 09:00 Dose: 3.125 mg Clonidine HCl (Clonidine Hcl 0.1 Mg Tablet) 0.1 mg PO DAILY [facility]; Protocol Last Admin: 02/10/23 09:00 Dose: 0.1 mg Folic Acid (Folic Acid 1 Mg Tablet) 1 mg PO DAILY [facility] Last Admin: 02/10/23 08:59 Dose: 1 mg Furosemide (Furosemide 40 Mg Tablet) 40 mg PO 0700,1500 [facility]; Protocol Last Admin: 02/10/23 09:06 Dose: 40 mg Haloperidol (Haloperidol 0.5 Mg Tablet) 2.5 mg PO Q8H PRN PRN Reason: agitation Hydroxyzine HCl (Hydroxyzine Hcl 25 Mg Tablet) 25 mg PO Q6H PRN PRN Reason: Anxiety Insulin Glargine (Insulin Glargine,Hum.Rec.Anlog 100 Unit/Ml 10 Ml Vial) 6 unit SUBCUT DAILY [facility] Last Admin: 02/10/23 09:06 Dose: 6 unit Lactulose (Lactulose 20 Gm/30 Ml Solution) 20 gm PO BID [facility] Last Admin: 02/10/23 09:00 Dose: 20 gm Magnesium Hydroxide (Milk Of Magnesia 30 Ml Oral.Susp) 30 ml PO DAILY PRN PRN Reason: Constipation Magnesium Oxide (Magnesium Oxide 400 Mg Tablet) [facility] Last Admin: 02/10/23 08:59 Dose: 400 mg Multivitamins/Vitamin C (Multivitamin Tablet) 1 tab PO DAILY [facility] Last Admin: 02/10/23 09:00 Dose: 1 tab Nicotine Polacrilex (Nicotine Polacrilex Lozenge 2 Mg Lozenge) 2 mg BUCCAL Q2H PRN PRN Reason: Nicotine Cravings Last Admin: 02/10/23 09:06 Dose: 2 mg Omeprazole (Omeprazole 20 Mg Capsule.Dr) 20 mg PO DAILY@0630 [facility] Last Admin: 02/10/23 09:00 Dose: 20 mg Quetiapine Fumarate (Quetiapine Fumarate 100 Mg Tablet) 100 mg PO BEDTIME PRN PRN Reason: insomnia Last Admin: 02/10/23 09:05 Dose: 100 mg Risperidone (Risperidone 3 Mg Tablet) 3 mg PO BID [facility] Last Admin: 02/10/23 09:00 Dose: 3 mg Senna/Docusate Sodium (Sennosides/Docusate Sodium Tablet) 1 tab PO BID PRN PRN Reason: Constipation Thiamine HCl (Thiamine Hcl 100 Mg Tablet) 100 mg PO DAILY [facility] Last Admin: 02/10/23 09:00 Dose: 100 mg Tiotropium Topaz (Tiotropium Topaz 2.5 Mcg 1 Puff/2.5 Mcg Mist.Inhal) 2 puff INHALE RDAILY MARI Last Admin: 02/10/23 09:07 Dose: 2 puff Trazodone HCl (Trazodone Hcl 50 Mg Tablet) 50 mg PO BEDTIME MRX1 PRN PRN Reason: Insomnia Physical Exam 2 Vital Signs and Narrative: Vital Signs: Last Vital Signs Temp 97.1 F 02/10/23 06:00 Pulse 90 02/10/23 06:00 Resp 18 02/10/23 06:00 BP 127/77 02/10/23 06:00 Pulse Ox 94 02/10/23 06:00 O2 Del Method Room Air 02/10/23 06:00 Constitutional: Alert, disorgazined, in no acute distress. Eyes: Pupils are equal, round, and reactive to light. Ear, Nose, and Throat: Oropharynx clear, mucous membranes moist. Ears and nose without deformities. Trachea midline. Respiratory: Clear to auscultation bilaterally. No wheezing, rales, or rhonchi. Cardiovascular: S1, S2 regular. No murmurs, rubs, or gallops. Gastrointestinal: Abdomen soft, non-tender, non-distended. Normal bowel sounds. Neurologic: Cranial nerves II-XII are grossly intact bilaterally. No focal neurological deficits. Moves all extremities spontaneously. Skin: Warm, dry. Extremities: Minor non-pitting edema. Results Labs 02/10/23 08:14 Labs: Laboratory Results - last 24 hr 02/10/23 08:14 Anion Gap 11 L Estim Creat Clear Calc TNP Estimated GFR > 60 Fasting Glucose 140 H Estimat Average Glucose 151 Hemoglobin A1c % 6.9 H Calcium 10.3 H D Magnesium 1.6 Total Bilirubin 0.3 AST 42 H ALT 29 Alkaline Phosphatase 183 H Total Protein 7.9 Albumin 4.0 Triglycerides 139 Cholesterol 241 H LDL Cholesterol, Calc 134 H HDL Cholesterol 80 Vitamin B12 931 H Folate 18.3 TSH 1.15 Free T4 1.03 Assessment and Plan (1) Medical clearance for psychiatric admission: Status: Acute Plan Pt is a 57-year-old female with a PMH significant for?insulin-dependent diabetes type 2,HFrEF, chronic pancreatitis, HTN, chronic constipation, cirrhosis, SBP, hyperammonemia encephalopathy, and schizophrenia/bipolar disorder who is admitted to M5 psychiatry unit for SI s/p attempting to strangle herself, potentially in the setting of alcohol and cocaine use. Medical consult for admission H&P. Mood disorder Plan as per psychiatry HFpEF Not in acute exacerbation Continue home furosemide, carvedilol Insulin-dependent diabetes type 2 Continue basal insulin, sliding scale insulin Diabetic diet Chronic pancreatitis Continue Creon Chronic constipation Continue lactulose HTN Reasonably controlled on current therapies Continue home meds Thank you for allowing us to participate in the care of this patient. Signing off at this time. Please re-consult if any acute complaints or issues arise.
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
[2023-02-10] MEDS: Nicotine 7 MG PATCH.TD24 TRANSDERMA (12:49)
[2023-02-10] MEDS: Lipase/Prot/Amylase 12/38/60K CAPSULE.DR 1 CAP PO ×2 (12:49→17:18)
[2023-02-10] MEDS: LORazepam 1 MG TABLET PO (13:51)
[2023-02-10] MEDS: Nicotine Polacrilex Lozenge 4 MG LOZENGE BUCCAL ×4 (14:44→22:48)
[2023-02-10] MEDS: Acetaminophen 325 MG TABLET 650 MG PO (15:24)
[2023-02-10 20:05] VITALS: BP 129/77; PULSE 90; TEMP 36.6
[2023-02-10] MEDS: traZODone HCL 50 MG TABLET PO (22:47)
[2023-02-11] MEDS: Omeprazole 20 MG CAPSULE.DR PO (06:25)
[2023-02-11] MEDS: Furosemide 40 MG TABLET PO ×2 (06:26→14:41)
[2023-02-11 07:59] LABS: Glucose, Whole Blood 133 mg/dL (60-115)
[2023-02-11 08:00] VITALS: BP 163/96; PULSE 94; RESP 16; TEMP 36.3; O2SAT 95
[2023-02-11] MEDS: Nicotine 7 MG PATCH.TD24 TRANSDERMA (08:38)
[2023-02-11] MEDS: Lipase/Prot/Amylase 12/38/60K CAPSULE.DR 1 CAP PO ×3 (08:39→17:40)
[2023-02-11] MEDS: Folic Acid 1 MG TABLET PO (08:39)
[2023-02-11] MEDS: risperiDONE 3 MG TABLET PO ×2 (08:39→20:20)
[2023-02-11] MEDS: Thiamine HCL 100 MG TABLET PO (08:39)
[2023-02-11] MEDS: cloNIDine HCL 0.1 MG TABLET PO (08:39)
[2023-02-11] MEDS: Multivitamin TABLET 1 TAB PO (08:40)
[2023-02-11] MEDS: carvediloL 3.125 MG TABLET PO ×2 (08:40→20:19)
[2023-02-11] MEDS: Insulin Glargine,Hum.rec.anlog 100 UNIT/ML 10 ML VIAL 6 UNIT SUBCUT (08:40)
[2023-02-11] MEDS: Magnesium Oxide 400 MG TABLET PO ×2 (08:40→17:40)
[2023-02-11] MEDS: Benztropine Mesylate 0.5 MG TABLET PO ×2 (08:40→20:19)
[2023-02-11] MEDS: Tiotropium Bromide 2.5 mcg 1 PUFF/2.5 MCG MIST.INHAL 2 PUFF INHALE (08:41)
[2023-02-11] MEDS: Lactulose 20 GM/30 ML SOLUTION PO ×2 (08:41→20:20)
[2023-02-11 12:36] LABS: Glucose, Whole Blood 174 mg/dL (60-115)
[2023-02-11 16:24] LABS: Glucose, Whole Blood 193 mg/dL (60-115)
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
[2023-02-11 16:40] VITALS: BP 160/89; PULSE 93; RESP 16; TEMP 36.2; O2SAT 97
[2023-02-11] MEDS: traZODone HCL 50 MG TABLET PO (20:19)
[2023-02-11 20:46] LABS: Glucose, Whole Blood 205 mg/dL (60-115)
[2023-02-12] MEDS: Acetaminophen 325 MG TABLET 650 MG PO ×2 (03:01→16:44)
[2023-02-12] MEDS: Omeprazole 20 MG CAPSULE.DR PO (06:32)
[2023-02-12 08:33] LABS: Glucose, Whole Blood 123 mg/dL (60-115)
[2023-02-12] MEDS: Nicotine 7 MG PATCH.TD24 TRANSDERMA (08:38)
[2023-02-12] MEDS: risperiDONE 3 MG TABLET PO ×2 (08:39→23:02)
[2023-02-12] MEDS: Lactulose 20 GM/30 ML SOLUTION PO ×2 (08:39→23:01)
[2023-02-12] MEDS: Benztropine Mesylate 0.5 MG TABLET PO ×2 (08:39→23:02)
[2023-02-12] MEDS: Lipase/Prot/Amylase 12/38/60K CAPSULE.DR 1 CAP PO ×3 (08:39→16:40)
[2023-02-12] MEDS: Thiamine HCL 100 MG TABLET PO (08:40)
[2023-02-12] MEDS: Folic Acid 1 MG TABLET PO (08:40)
[2023-02-12] MEDS: carvediloL 3.125 MG TABLET PO ×2 (08:40→23:01)
[2023-02-12] MEDS: Multivitamin TABLET 1 TAB PO (08:40)
[2023-02-12] MEDS: cloNIDine HCL 0.1 MG TABLET PO (08:40)
[2023-02-12] MEDS: Magnesium Oxide 400 MG TABLET PO ×2 (08:40→16:40)
[2023-02-12] MEDS: Insulin Glargine,Hum.rec.anlog 100 UNIT/ML 10 ML VIAL 6 UNIT SUBCUT (08:41)
[2023-02-12] MEDS: Furosemide 40 MG TABLET PO ×2 (10:15→14:56)
[2023-02-12] MEDS: Tiotropium Bromide 2.5 mcg 1 PUFF/2.5 MCG MIST.INHAL 2 PUFF INHALE (10:17)
[2023-02-12 11:19] VITALS: BP 139/98; PULSE 92; RESP 16; TEMP 36.3; O2SAT 96
[2023-02-12 12:19] LABS: Glucose, Whole Blood 229 mg/dL (60-115)
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
[2023-02-12] MEDS: LORazepam 1 MG TABLET PO (16:44)
[2023-02-12] MEDS: Nicotine Polacrilex Lozenge 4 MG LOZENGE BUCCAL (16:44)
[2023-02-12 17:50] LABS: Glucose, Whole Blood 134 mg/dL (60-115)
[2023-02-12 18:00] VITALS: BP 139/98; PULSE 94; RESP 17; TEMP 37; O2SAT 97
[2023-02-12 22:51] LABS: Glucose, Whole Blood 188 mg/dL (60-115)
[2023-02-12 23:00] VITALS: BP 158/84; PULSE 90
[2023-02-13 05:55] VITALS: BP 135/82
[2023-02-13] MEDS: Omeprazole 20 MG CAPSULE.DR PO (05:57)
[2023-02-13] MEDS: Furosemide 40 MG TABLET PO ×2 (05:57→16:06)
[2023-02-13 08:32] LABS: Glucose, Whole Blood 170 mg/dL (60-115)
[2023-02-13 08:48] VITALS: BP 165/100; PULSE 107; RESP 16; TEMP 36.4; O2SAT 95
[2023-02-13] MEDS: Lactulose 20 GM/30 ML SOLUTION PO ×2 (09:03→20:35)
[2023-02-13] MEDS: Nicotine 7 MG PATCH.TD24 TRANSDERMA (09:03)
[2023-02-13] MEDS: Multivitamin TABLET 1 TAB PO (09:04)
[2023-02-13] MEDS: Lipase/Prot/Amylase 12/38/60K CAPSULE.DR 1 CAP PO ×3 (09:04→17:18)
[2023-02-13] MEDS: Benztropine Mesylate 0.5 MG TABLET PO ×2 (09:04→20:35)
[2023-02-13] MEDS: carvediloL 3.125 MG TABLET PO ×2 (09:04→20:34)
[2023-02-13] MEDS: risperiDONE 3 MG TABLET PO ×2 (09:04→20:35)
[2023-02-13] MEDS: Insulin Glargine,Hum.rec.anlog 100 UNIT/ML 10 ML VIAL 6 UNIT SUBCUT (09:04)
[2023-02-13] MEDS: Folic Acid 1 MG TABLET PO (09:04)
[2023-02-13] MEDS: Thiamine HCL 100 MG TABLET PO (09:05)
[2023-02-13] MEDS: cloNIDine HCL 0.1 MG TABLET PO (09:05)
[2023-02-13] MEDS: Magnesium Oxide 400 MG TABLET PO ×2 (09:05→18:01)
[2023-02-13] MEDS: Tiotropium Bromide 2.5 mcg 1 PUFF/2.5 MCG MIST.INHAL 2 PUFF INHALE (09:11)
[2023-02-13 12:38] LABS: Glucose, Whole Blood 258 mg/dL (60-115)
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
[2023-02-13] MEDS: HaloperidoL 0.5 MG TABLET 2.5 MG PO (16:07)
[2023-02-13 16:35] VITALS: BP 182/100; PULSE 94; TEMP 35.9
[2023-02-13 17:18] LABS: Glucose, Whole Blood 189 mg/dL (60-115)
[2023-02-13] MEDS: Acetaminophen 325 MG TABLET 650 MG PO (18:01)
[2023-02-13 20:30] VITALS: BP 129/84; PULSE 97; TEMP 36.3
[2023-02-13] MEDS: QUEtiapine Fumarate 100 MG TABLET PO (20:42)
[2023-02-13 20:53] LABS: Glucose, Whole Blood 190 mg/dL (60-115)
[2023-02-14] MEDS: Omeprazole 20 MG CAPSULE.DR PO (06:20)
[2023-02-14] MEDS: Furosemide 40 MG TABLET PO ×2 (06:52→14:29)
[2023-02-14 08:00] VITALS: BP 117/64; PULSE 94; RESP 16; TEMP 36.2; O2SAT 96
[2023-02-14 08:17] LABS: Glucose, Whole Blood 221 mg/dL (60-115)
[2023-02-14] MEDS: Lipase/Prot/Amylase 12/38/60K CAPSULE.DR 1 CAP PO ×3 (08:38→18:26)
[2023-02-14] MEDS: Folic Acid 1 MG TABLET PO (08:38)
[2023-02-14] MEDS: Multivitamin TABLET 1 TAB PO (08:38)
[2023-02-14] MEDS: Insulin Glargine,Hum.rec.anlog 100 UNIT/ML 10 ML VIAL 6 UNIT SUBCUT (08:39)
[2023-02-14] MEDS: risperiDONE 3 MG TABLET PO ×2 (08:39→20:41)
[2023-02-14] MEDS: Magnesium Oxide 400 MG TABLET PO ×2 (08:39→18:26)
[2023-02-14] MEDS: cloNIDine HCL 0.1 MG TABLET PO (08:39)
[2023-02-14] MEDS: Tiotropium Bromide 2.5 mcg 1 PUFF/2.5 MCG MIST.INHAL 2 PUFF INHALE (08:39)
[2023-02-14] MEDS: Thiamine HCL 100 MG TABLET PO (08:39)
[2023-02-14] MEDS: Lactulose 20 GM/30 ML SOLUTION PO ×2 (08:39→21:00)
[2023-02-14] MEDS: Benztropine Mesylate 0.5 MG TABLET PO ×2 (08:39→20:41)
[2023-02-14] MEDS: carvediloL 3.125 MG TABLET PO ×2 (08:39→20:41)
[2023-02-14] MEDS: Nicotine 7 MG PATCH.TD24 TRANSDERMA (08:39)
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
[2023-02-14 12:45] LABS: Glucose, Whole Blood 175 mg/dL (60-115)
[2023-02-14] MEDS: hydrOXYzine HCL 25 MG TABLET PO (13:01)
[2023-02-14] MEDS: Nicotine Polacrilex Lozenge 4 MG LOZENGE BUCCAL (13:01)
[2023-02-14 14:30] VITALS: BP 145/99; PULSE 98
[2023-02-14 18:00] VITALS: BP 168/79; PULSE 93; RESP 16; TEMP 36; O2SAT 97
[2023-02-14] MEDS: QUEtiapine Fumarate 100 MG TABLET PO (21:24)
[2023-02-14] MEDS: Acetaminophen 325 MG TABLET 650 MG PO (22:14)
[2023-02-14 22:45] LABS: Glucose, Whole Blood 266 mg/dL (60-115)
[2023-02-15] MEDS: Omeprazole 20 MG CAPSULE.DR PO (05:39)
[2023-02-15 08:43] VITALS: BP 141/85; PULSE 106; RESP 16; TEMP 36.5; O2SAT 95
[2023-02-15 08:48] LABS: Glucose, Whole Blood 218 mg/dL (60-115)
[2023-02-15] MEDS: Tiotropium Bromide 2.5 mcg 1 PUFF/2.5 MCG MIST.INHAL 2 PUFF INHALE (09:08)
[2023-02-15] MEDS: risperiDONE 3 MG TABLET PO ×2 (09:08→19:49)
[2023-02-15] MEDS: Nicotine 7 MG PATCH.TD24 TRANSDERMA (09:08)
[2023-02-15] MEDS: Insulin Glargine,Hum.rec.anlog 100 UNIT/ML 10 ML VIAL 6 UNIT SUBCUT (09:08)
[2023-02-15] MEDS: Lactulose 20 GM/30 ML SOLUTION PO ×2 (09:08→19:50)
[2023-02-15] MEDS: Furosemide 40 MG TABLET PO ×2 (09:09→15:17)
[2023-02-15] MEDS: carvediloL 3.125 MG TABLET PO ×2 (09:09→19:49)
[2023-02-15] MEDS: cloNIDine HCL 0.1 MG TABLET PO ×2 (09:09→19:49)
[2023-02-15] MEDS: Benztropine Mesylate 0.5 MG TABLET PO ×2 (09:09→19:49)
[2023-02-15] MEDS: Lipase/Prot/Amylase 12/38/60K CAPSULE.DR 1 CAP PO ×2 (09:09→12:44)
[2023-02-15] MEDS: Multivitamin TABLET 1 TAB PO (09:10)
[2023-02-15] MEDS: Thiamine HCL 100 MG TABLET PO (09:10)
[2023-02-15] MEDS: Folic Acid 1 MG TABLET PO (09:10)
[2023-02-15] MEDS: Magnesium Oxide 400 MG TABLET PO (09:10)
[2023-02-15] MEDS: hydrOXYzine HCL 25 MG TABLET PO (10:13)
[2023-02-15 12:35] LABS: Glucose, Whole Blood 233 mg/dL (60-115)
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
[2023-02-15 16:54] LABS: COVID-19 Test Negative (Negative); IDNOW Serial# 08D9AD1C
[2023-02-15 17:31] LABS: Glucose, Whole Blood 202 mg/dL (60-115)
[2023-02-15 18:35] VITALS: BP 169/88; PULSE 115; RESP 16; TEMP 36.6; O2SAT 92
[2023-02-15] MEDS: traZODone HCL 50 MG TABLET PO (19:49)
[2023-02-15 20:14] LABS: Glucose, Whole Blood 176 mg/dL (60-115)
[2023-02-16] MEDS: HaloperidoL 0.5 MG TABLET 2.5 MG PO ×2 (00:13→11:25)
[2023-02-16] MEDS: traZODone HCL 50 MG TABLET PO (00:15)
[2023-02-16] MEDS: QUEtiapine Fumarate 100 MG TABLET PO (00:15)
[2023-02-16] MEDS: hydrOXYzine HCL 25 MG TABLET PO ×2 (00:15→11:25)
[2023-02-16] MEDS: Omeprazole 20 MG CAPSULE.DR PO (06:30)
[2023-02-16 08:00] VITALS: BP 156/82; PULSE 96; RESP 16; TEMP 36.4; O2SAT 92
[2023-02-16 08:28] LABS: Glucose, Whole Blood 179 mg/dL (60-115)
[2023-02-16] MEDS: Insulin Glargine,Hum.rec.anlog 100 UNIT/ML 10 ML VIAL 6 UNIT SUBCUT (09:00)
[2023-02-16] MEDS: risperiDONE 3 MG TABLET PO ×2 (09:01→22:00)
[2023-02-16] MEDS: Thiamine HCL 100 MG TABLET PO (09:01)
[2023-02-16] MEDS: Folic Acid 1 MG TABLET PO (09:01)
[2023-02-16] MEDS: Lipase/Prot/Amylase 12/38/60K CAPSULE.DR 1 CAP PO ×3 (09:01→16:45)
[2023-02-16] MEDS: Tiotropium Bromide 2.5 mcg 1 PUFF/2.5 MCG MIST.INHAL 2 PUFF INHALE (09:01)
[2023-02-16] MEDS: cloNIDine HCL 0.1 MG TABLET PO ×2 (09:01→22:02)
[2023-02-16] MEDS: Furosemide 40 MG TABLET PO ×2 (09:01→14:31)
[2023-02-16] MEDS: Multivitamin TABLET 1 TAB PO (09:02)
[2023-02-16] MEDS: Benztropine Mesylate 0.5 MG TABLET PO ×2 (09:02→22:01)
[2023-02-16] MEDS: Magnesium Oxide 400 MG TABLET PO ×2 (09:02→16:45)
[2023-02-16] MEDS: carvediloL 3.125 MG TABLET PO ×2 (09:08→22:01)
[2023-02-16 13:17] LABS: Glucose, Whole Blood 225 mg/dL (60-115)
[2023-02-16] MEDS: Nicotine 7 MG PATCH.TD24 TRANSDERMA (15:20)
[2023-02-16] MEDS: Nicotine Polacrilex Lozenge 4 MG LOZENGE BUCCAL (15:20)
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
[2023-02-16 17:29] LABS: Glucose, Whole Blood 207 mg/dL (60-115)
[2023-02-16 17:31] VITALS: BP 150/87; PULSE 87; RESP 16; TEMP 36; O2SAT 92
[2023-02-16 20:08] LABS: Glucose, Whole Blood 193 mg/dL (60-115)
[2023-02-16] MEDS: Lactulose 20 GM/30 ML SOLUTION PO (22:03)
[2023-02-17] MEDS: Omeprazole 20 MG CAPSULE.DR PO (05:48)
[2023-02-17 08:42] LABS: Glucose, Whole Blood 224 mg/dL (60-115)
[2023-02-17] MEDS: cloNIDine HCL 0.1 MG TABLET PO ×2 (09:17→21:41)
[2023-02-17] MEDS: Lactulose 20 GM/30 ML SOLUTION PO ×2 (09:17→21:40)
[2023-02-17] MEDS: Lipase/Prot/Amylase 12/38/60K CAPSULE.DR 1 CAP PO ×3 (09:17→17:56)
[2023-02-17] MEDS: risperiDONE 3 MG TABLET PO ×2 (09:17→21:41)
[2023-02-17] MEDS: Magnesium Oxide 400 MG TABLET PO ×2 (09:17→17:56)
[2023-02-17] MEDS: Benztropine Mesylate 0.5 MG TABLET PO ×2 (09:17→21:41)
[2023-02-17] MEDS: carvediloL 3.125 MG TABLET PO ×2 (09:18→21:41)
[2023-02-17] MEDS: Thiamine HCL 100 MG TABLET PO (09:18)
[2023-02-17] MEDS: Folic Acid 1 MG TABLET PO (09:18)
[2023-02-17] MEDS: Insulin Glargine,Hum.rec.anlog 100 UNIT/ML 10 ML VIAL 6 UNIT SUBCUT (09:21)
[2023-02-17] MEDS: Nicotine 7 MG PATCH.TD24 TRANSDERMA (09:21)
[2023-02-17] MEDS: Furosemide 40 MG TABLET PO ×2 (09:28→16:30)
[2023-02-17] MEDS: Tiotropium Bromide 2.5 mcg 1 PUFF/2.5 MCG MIST.INHAL 2 PUFF INHALE (09:29)
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
[2023-02-17] MEDS: Multivitamin TABLET 1 TAB PO (10:14)
[2023-02-17 10:22] VITALS: BP 137/86; PULSE 96; RESP 18; TEMP 36.1; O2SAT 95
[2023-02-17 12:52] LABS: Glucose, Whole Blood 230 mg/dL (60-115)
[2023-02-17 15:03] LABS: COVID-19 Test Negative (Negative); IDNOW Serial# BCCEAD1C
[2023-02-17 16:15] VITALS: BP 141/95; PULSE 99; TEMP 36.7; O2SAT 94
[2023-02-17 17:02] LABS: Glucose, Whole Blood 168 mg/dL (60-115)
[2023-02-17 17:43] VITALS: BP 141/95; PULSE 94; TEMP 36.9; O2SAT 99
[2023-02-17] MEDS: Nicotine Polacrilex Lozenge 4 MG LOZENGE BUCCAL (18:02)
[2023-02-17 21:35] VITALS: BP 128/78; PULSE 108
[2023-02-17] MEDS: QUEtiapine Fumarate 100 MG TABLET PO (21:41)
[2023-02-17] MEDS: traZODone HCL 50 MG TABLET PO (21:41)
[2023-02-17 21:43] LABS: Glucose, Whole Blood 143 mg/dL (60-115)
[2023-02-18] MEDS: Omeprazole 20 MG CAPSULE.DR PO (05:53)
[2023-02-18 08:28] LABS: Glucose, Whole Blood 176 mg/dL (60-115)
[2023-02-18 08:53] VITALS: BP 138/72; PULSE 72; RESP 16; TEMP 36.5; O2SAT 95
[2023-02-18] MEDS: Insulin Glargine,Hum.rec.anlog 100 UNIT/ML 10 ML VIAL 6 UNIT SUBCUT (08:55)
[2023-02-18] MEDS: Nicotine 7 MG PATCH.TD24 TRANSDERMA (08:55)
[2023-02-18] MEDS: Lactulose 20 GM/30 ML SOLUTION PO ×2 (08:55→21:40)
[2023-02-18] MEDS: Benztropine Mesylate 0.5 MG TABLET PO ×2 (08:56→21:40)
[2023-02-18] MEDS: Magnesium Oxide 400 MG TABLET PO ×2 (08:56→17:56)
[2023-02-18] MEDS: Folic Acid 1 MG TABLET PO (08:56)
[2023-02-18] MEDS: Lipase/Prot/Amylase 12/38/60K CAPSULE.DR 1 CAP PO ×2 (08:56→17:56)
[2023-02-18] MEDS: Thiamine HCL 100 MG TABLET PO (08:56)
[2023-02-18] MEDS: Tiotropium Bromide 2.5 mcg 1 PUFF/2.5 MCG MIST.INHAL 2 PUFF INHALE (08:56)
[2023-02-18] MEDS: Multivitamin TABLET 1 TAB PO (08:56)
[2023-02-18] MEDS: risperiDONE 3 MG TABLET PO ×2 (08:56→21:40)
[2023-02-18] MEDS: carvediloL 3.125 MG TABLET PO ×2 (08:56→21:40)
[2023-02-18] MEDS: cloNIDine HCL 0.1 MG TABLET PO ×2 (08:56→21:40)
[2023-02-18] MEDS: Furosemide 40 MG TABLET PO ×2 (10:36→15:54)
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
--- NOTE | 2023-02-18 13:17 | PC.NURSE ---
pt refused to have weight taken today.
[2023-02-18 15:50] VITALS: BP 146/92; PULSE 74; TEMP 36.2; O2SAT 95
[2023-02-18] MEDS: HaloperidoL 0.5 MG TABLET 2.5 MG PO (15:54)
[2023-02-18] MEDS: Nicotine Polacrilex 2 MG GUM 4 MG BUCCAL (15:54)
[2023-02-18 17:18] LABS: Glucose, Whole Blood 149 mg/dL (60-115)
[2023-02-18 21:30] VITALS: BP 175/101; PULSE 100
[2023-02-18 21:33] LABS: Glucose, Whole Blood 146 mg/dL (60-115)
[2023-02-18] MEDS: traZODone HCL 50 MG TABLET PO (21:40)
[2023-02-19] MEDS: Omeprazole 20 MG CAPSULE.DR PO (05:37)
[2023-02-19 08:30] VITALS: BP 133/91; PULSE 88; RESP 16; TEMP 36.1; O2SAT 93
[2023-02-19 08:43] LABS: Glucose, Whole Blood 218 mg/dL (60-115)
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
[2023-02-19] MEDS: HaloperidoL 0.5 MG TABLET 2.5 MG PO (08:45)
[2023-02-19] MEDS: hydrOXYzine HCL 25 MG TABLET PO ×2 (08:45→21:38)
[2023-02-19] MEDS: Multivitamin TABLET 1 TAB PO (08:46)
[2023-02-19] MEDS: carvediloL 3.125 MG TABLET PO ×2 (08:46→21:38)
[2023-02-19] MEDS: Folic Acid 1 MG TABLET PO (08:46)
[2023-02-19] MEDS: cloNIDine HCL 0.1 MG TABLET PO ×2 (08:46→21:37)
[2023-02-19] MEDS: Lipase/Prot/Amylase 12/38/60K CAPSULE.DR 1 CAP PO ×3 (08:47→18:12)
[2023-02-19] MEDS: Benztropine Mesylate 0.5 MG TABLET PO ×2 (08:47→21:38)
[2023-02-19] MEDS: risperiDONE 3 MG TABLET PO (08:47)
[2023-02-19] MEDS: Magnesium Oxide 400 MG TABLET PO ×2 (08:47→18:13)
[2023-02-19] MEDS: Thiamine HCL 100 MG TABLET PO (08:47)
[2023-02-19] MEDS: Lactulose 20 GM/30 ML SOLUTION PO ×2 (08:49→21:36)
[2023-02-19] MEDS: Nicotine 7 MG PATCH.TD24 TRANSDERMA (09:26)
[2023-02-19] MEDS: Furosemide 40 MG TABLET PO ×2 (09:26→15:32)
[2023-02-19] MEDS: Tiotropium Bromide 2.5 mcg 1 PUFF/2.5 MCG MIST.INHAL 2 PUFF INHALE (09:26)
[2023-02-19] MEDS: Insulin Glargine,Hum.rec.anlog 100 UNIT/ML 10 ML VIAL 6 UNIT SUBCUT (10:11)
[2023-02-19] MEDS: Nicotine Polacrilex 2 MG GUM 4 MG BUCCAL ×2 (10:46→13:20)
[2023-02-19 11:17] LABS: COVID-19 Test Negative (Negative); IDNOW Serial# BCCEAD1C
[2023-02-19 16:58] VITALS: BP 140/84; PULSE 92; TEMP 36.6; O2SAT 94
[2023-02-19] MEDS: risperiDONE 0.5 MG TABLET 3.5 MG PO (21:37)
[2023-02-19] MEDS: traZODone HCL 50 MG TABLET PO (21:37)
[2023-02-19] MEDS: QUEtiapine Fumarate 100 MG TABLET PO (21:37)
[2023-02-19 21:44] VITALS: BP 136/98; PULSE 99
[2023-02-20 08:53] LABS: Glucose, Whole Blood 180 mg/dL (60-115)
[2023-02-20 09:15] VITALS: BP 125/74; PULSE 102; RESP 16; TEMP 36.1; O2SAT 95
[2023-02-20] MEDS: Tiotropium Bromide 2.5 mcg 1 PUFF/2.5 MCG MIST.INHAL 2 PUFF INHALE (09:26)
[2023-02-20] MEDS: Insulin Glargine,Hum.rec.anlog 100 UNIT/ML 10 ML VIAL 6 UNIT SUBCUT (09:26)
[2023-02-20] MEDS: Nicotine 7 MG PATCH.TD24 TRANSDERMA (09:27)
[2023-02-20] MEDS: risperiDONE 0.5 MG TABLET 3.5 MG PO (09:28)
[2023-02-20] MEDS: Lipase/Prot/Amylase 12/38/60K CAPSULE.DR 1 CAP PO ×2 (09:28→16:59)
[2023-02-20] MEDS: Omeprazole 20 MG CAPSULE.DR PO (09:30)
[2023-02-20] MEDS: Folic Acid 1 MG TABLET PO (09:30)
[2023-02-20] MEDS: Multivitamin TABLET 1 TAB PO (09:30)
[2023-02-20] MEDS: Benztropine Mesylate 0.5 MG TABLET PO (09:31)
[2023-02-20] MEDS: carvediloL 3.125 MG TABLET PO (09:31)
[2023-02-20] MEDS: cloNIDine HCL 0.1 MG TABLET PO (09:31)
[2023-02-20] MEDS: Thiamine HCL 100 MG TABLET PO (09:31)
[2023-02-20] MEDS: Magnesium Oxide 400 MG TABLET PO ×2 (09:31→16:59)
[2023-02-20] MEDS: Furosemide 40 MG TABLET PO ×2 (09:44→14:16)
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
[2023-02-20 18:00] VITALS: RESP 16
--- NOTE | 2023-02-21 08:47 | PC.NURSE ---
pt refused am scheduled medication, POC, & vitals. I'm busy, can't you see? Stop bothering me. Nurse attempted to educate pt on importance of these tasks with no effect.
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
[2023-02-21 15:16] LABS: COVID-19 Test Negative (Negative); IDNOW Serial# 08D9AD1C
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
[2023-02-21] MEDS: Multivitamin TABLET 1 TAB PO (16:02)
[2023-02-21] MEDS: Folic Acid 1 MG TABLET PO (16:02)
[2023-02-21] MEDS: Magnesium Oxide 400 MG TABLET PO (16:02)
[2023-02-21] MEDS: Benztropine Mesylate 0.5 MG TABLET PO ×2 (16:02→22:01)
[2023-02-21] MEDS: Thiamine HCL 100 MG TABLET PO (16:02)
[2023-02-21] MEDS: Insulin Glargine,Hum.rec.anlog 100 UNIT/ML 10 ML VIAL 6 UNIT SUBCUT (16:03)
[2023-02-21 17:32] VITALS: BP 175/102; PULSE 103; RESP 16; TEMP 36.7; O2SAT 94
[2023-02-21] MEDS: Lipase/Prot/Amylase 12/38/60K CAPSULE.DR 1 CAP PO (17:40)
[2023-02-21] MEDS: cloNIDine HCL 0.1 MG TABLET PO (21:59)
[2023-02-21] MEDS: QUEtiapine Fumarate 100 MG TABLET PO (21:59)
[2023-02-21] MEDS: risperiDONE 0.5 MG TABLET 3.5 MG PO (22:01)
[2023-02-21] MEDS: carvediloL 3.125 MG TABLET PO (22:01)
[2023-02-21] MEDS: Lactulose 20 GM/30 ML SOLUTION PO (22:02)
[2023-02-22] MEDS: Omeprazole 20 MG CAPSULE.DR PO (06:42)
[2023-02-22 08:45] VITALS: BP 139/96; PULSE 98; RESP 18; TEMP 36.5; O2SAT 94
[2023-02-22 08:45] LABS: Glucose, Whole Blood 278 mg/dL (60-115)
[2023-02-22] MEDS: Haloperidol Lactate 5 MG/ML VIAL IM (09:06)
[2023-02-22] MEDS: LORazepam 2 MG/ML VIAL IM (09:06)
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
[2023-02-22 12:51] LABS: Glucose, Whole Blood 221 mg/dL (60-115)
[2023-02-22] MEDS: Lipase/Prot/Amylase 12/38/60K CAPSULE.DR 1 CAP PO ×2 (13:02→16:50)
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
[2023-02-22] MEDS: hydrOXYzine HCL 25 MG TABLET PO ×2 (15:16→19:50)
[2023-02-22] MEDS: HaloperidoL 0.5 MG TABLET 2.5 MG PO (15:16)
[2023-02-22] MEDS: Furosemide 40 MG TABLET PO (15:16)
[2023-02-22] MEDS: Nicotine Polacrilex 2 MG GUM 4 MG BUCCAL ×2 (15:21→16:50)
[2023-02-22] MEDS: Throat Lozenge, Medicated LOZENGE 1 LOZENGE MUCOUS MEM (16:07)
[2023-02-22] MEDS: Magnesium Oxide 400 MG TABLET PO (16:50)
[2023-02-22] MEDS: Acetaminophen 325 MG TABLET 650 MG PO (16:55)
[2023-02-22 18:00] VITALS: BP 153/79; PULSE 97; RESP 16; TEMP 36; O2SAT 99
[2023-02-22] MEDS: carvediloL 3.125 MG TABLET PO (19:50)
[2023-02-22] MEDS: cloNIDine HCL 0.1 MG TABLET PO (19:50)
[2023-02-22] MEDS: Lactulose 20 GM/30 ML SOLUTION PO (19:50)
[2023-02-22] MEDS: Benztropine Mesylate 0.5 MG TABLET PO (19:50)
[2023-02-22] MEDS: Divalproex Sodium 250 MG TABLET.DR PO (19:50)
[2023-02-22] MEDS: risperiDONE 0.5 MG TABLET 3.5 MG PO (19:50)
[2023-02-22] MEDS: QUEtiapine Fumarate 100 MG TABLET PO (19:50)
[2023-02-22] MEDS: traZODone HCL 50 MG TABLET PO (19:51)
[2023-02-23] MEDS: Omeprazole 20 MG CAPSULE.DR PO (05:56)
[2023-02-23 08:00] VITALS: BP 155/92; PULSE 102; RESP 16; TEMP 36.5; O2SAT 95
[2023-02-23] MEDS: risperiDONE 0.5 MG TABLET 3.5 MG PO (08:17)
[2023-02-23] MEDS: Benztropine Mesylate 0.5 MG TABLET PO (08:17)
[2023-02-23] MEDS: Furosemide 40 MG TABLET PO (08:17)
[2023-02-23] MEDS: Nicotine 7 MG PATCH.TD24 TRANSDERMA (08:17)
[2023-02-23] MEDS: cloNIDine HCL 0.1 MG TABLET PO (08:18)
[2023-02-23] MEDS: Lipase/Prot/Amylase 12/38/60K CAPSULE.DR 1 CAP PO (08:18)
[2023-02-23] MEDS: Tiotropium Bromide 2.5 mcg 1 PUFF/2.5 MCG MIST.INHAL 2 PUFF INHALE (08:18)
[2023-02-23] MEDS: Thiamine HCL 100 MG TABLET PO (08:18)
[2023-02-23] MEDS: carvediloL 3.125 MG TABLET PO (08:18)
[2023-02-23] MEDS: Divalproex Sodium 250 MG TABLET.DR PO (08:18)
[2023-02-23] MEDS: Lactulose 20 GM/30 ML SOLUTION PO (08:18)
[2023-02-23] MEDS: Multivitamin TABLET 1 TAB PO (08:18)
[2023-02-23] MEDS: Magnesium Oxide 400 MG TABLET PO (08:18)
[2023-02-23] MEDS: Folic Acid 1 MG TABLET PO (08:18)
[2023-02-23 08:19] LABS: Glucose, Whole Blood 169 mg/dL (60-115)
[2023-02-23] MEDS: Insulin Glargine,Hum.rec.anlog 100 UNIT/ML 10 ML VIAL 6 UNIT SUBCUT (09:26)
[2023-02-23] MEDS: HaloperidoL 0.5 MG TABLET 2.5 MG PO (10:46)
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
== END 2023-02-23 11:59 | DRG 750 ==
PROVIDERS: Admitting Provider Psychiatry & Neurology Psychiatry; Visit Provider Clinical Nurse Specialist Psychiatric/Mental Health, Adult
DX: F25.0 Schizoaffective disorder, bipolar type (principal); R45.851 Suicidal ideations; I50.22 Chronic systolic (congestive) heart failure; E11.9 Type 2 diabetes mellitus without complications; I11.0 Hypertensive heart disease with heart failure; F10.10 Alcohol abuse, uncomplicated; K59.09 Other constipation; K86.1 Other chronic pancreatitis; Z20.822 Contact with and (suspected) exposure to COVID-19; Z79.4 Long term (current) use of insulin; Z79.899 Other long term (current) drug therapy
CPT/HCPCS: 36415; 80053; 80061; 82607; 82746; 82947; 83036; 83735; 84439; 84443; 87635; J1630; J2060

== ENCOUNTER → 2023-02-09 22:30 | Outpatient (BNV) | payer OTHER, SELFPAY | PROVIDERS: Admitting Provider Psychiatry & Neurology Psychiatry; Visit Provider Psychiatry & Neurology Psychiatry | DX: F20.89 Other schizophrenia (principal) | CPT/HCPCS: 99231; 99232 ==

== ENCOUNTER → 2023-02-09 22:30 | Outpatient (BNV) | payer OTHER, SELFPAY | PROVIDERS: Admitting Provider Psychiatry & Neurology Psychiatry; Visit Provider Student in an Organized Health Care Education/Training Program | DX: Z02.2 Encounter for examination for admission to residential institution (principal) | CPT/HCPCS: 99429 ==